=== PATIENT | female | born 1945 | race American Indian/Alaskan Native ===

== ENCOUNTER 2019-01-11 14:30 | Emergency (ER) | payer MEDICAID, MEDICARE ==
--- NOTE | 2019-01-11 14:40 | Emergency Department Report ---
Blank Doc - Documentation Documentation: 73-year-old female that presents with chest pain, URI and SOB. This initial assessment/diagnostic orders/clinical plan/treatment(s) is/are subject to change based on patient's health status, clinical progression and re- assessment by fellow clinical providers in the ED. Further treatment and workup at subsequent clinical providers discretion. Patient/guardians urged not to elope from the ED as their condition may be serious if not clinically assessed and managed. Initial orders include: 1- Patient sent to MAIN ED for further evaluation and treatment 2- labs 3- EKG 4- CXR
--- NOTE | 2019-01-11 15:16 | XRay Report ---
CHEST 2 VIEWS INDICATION: Chest Pain. COMPARISON: 12/26/2018 FINDINGS: Support devices: None. Heart: Within normal limits. Lungs/pleura: Infiltrate throughout the lingula appears unchanged since the previous exam. The right lung is clear. No pleural effusion or pneumothorax is identified. Additional findings: None. IMPRESSION: Persistent lingular opacity which is concerning for pneumonia. No overwhelming change is demonstrated since 12/26/2018. Signer Name: Kenny Wallis Jr, MD Signed: 01/11/2019 3:12 PM Workstation Name: [id number]
[2019-01-11 15:47] LABS: Basophils # (Auto) 0.1 K/mm3 (0.0-0.1); Basophils % (Auto) 1.3 % (0.0-1.8); Eosinophils # (Auto) 0.1 K/mm3 (0.0-0.4); Eosinophils % (Auto) 0.8 % (0.0-4.3); Hematocrit 26.1 % (30.3-42.9); Hemoglobin 8.5 gm/dl (10.1-14.3); Lymphocytes # (Auto) 2.1 K/mm3 (1.2-5.4); Lymphocytes % (Auto) 18.4 % (13.4-35.0); Mean Corpuscular HGB Conc 32 % (30-34); Mean Corpuscular Volume 79 fl (79-97); Monocytes # (Auto) 1.1 K/mm3 (0.0-0.8); Platelet Count 488 K/mm3 (140-440); Red Blood Count 3.32 M/mm3 (3.65-5.03); Red Cell Distribution Width 18.8 % (13.2-15.2)
[2019-01-11 15:54] LABS: Alanine Aminotransferase 7 units/L (7-56); Albumin 3.2 g/dL (3.9-5); BUN/Creatinine Ratio 25; Blood Urea Nitrogen 30 mg/dL (7-17); Hemolysis Index 0
[2019-01-11 15:59] LABS: INR 1.14 (0.87-1.13)
[2019-01-11 16:00] LABS: Partial Thromboplastin Time 32.9 Sec. (24.2-36.6)
[2019-01-11] MEDS ORDERED: LIDOCAINE-MPF (1%) 10 MG/1 ML VIAL 5 ML INFILTRATI ONE (18:34)
[2019-01-11] MEDS ORDERED: cefTRIAXone/NS 1 GM/50 ML 1 GM/50 ML BAG IV ONE (18:53)
--- NOTE | 2019-01-11 19:05 | Emergency Department Report ---
ED General Adult HPI - General Chief complaint: Dyspnea/Respdistress Stated complaint: SOB/COUGH/SIDE/R LEG PAIN Time Seen by Provider: 01/11/19 14:39 Source: patient Mode of arrival: Ambulatory Limitations: No Limitations - History of Present Illness Initial comments: Mrs. Romero is a 73-year-old female that presents with chest pain, URI and SOB. Discharge on 01/03/2019 with CAP discharged on Relafen PO 5 days patient states she took all medication however, persist right lateral chest wall pain with cough and movement patient denies had injury fall or trauma there is no wheezing rhonchi or rales or stridor there is no substernal chest pain no di zziness no headache patient remains ambulatory to baseline per patient patient advised that she does not want to be admitted in hospital Onset/Timin -: week(s) Location: chest (right lateral chest wall ) Radiation: non-radiation Severity scale (0 -10): 5 Quality: sharp Consistency: intermittent Improves with: rest Worsens with: movement, other (inspiration) Associated Symptoms: chest pain (right lateral chest wall pain ), cough, shortness of breath. denies: nausea/vomiting - Related Data Home Medications Medication Instructions Recorded Confirmed Last Taken Glipizide/Metformin HCl 1 each PO DAILY 12/24/18 12/24/18 Unknown [glipiZIDE-Metformin 2.5-500 mg] Lisinopril [Zestril TAB] 10 mg PO QDAY 12/24/18 12/24/18 Unknown Allopurinol 100 mg PO DAILY 12/26/18 12/26/18 Unknown Aspirin 325 mg PO DAILY 12/26/18 12/26/18 Unknown Cilostazol 100 mg PO BID 12/26/18 12/26/18 Unknown Ferrous Sulfate 325 mg PO DAILY 12/26/18 12/26/18 Unknown Furosemide 40 mg PO DAILY 12/26/18 12/26/18 Unknown HCTZ 12.5 mg PO DAILY 12/26/18 12/26/18 Unknown Losartan 100 mg PO DAILY 12/26/18 12/26/18 Unknown Previous Rx's Medication Instructions Recorded Last Taken Type Metoprolol Tartrate 50 mg PO BID #60 12/29/18 Unknown Rx levoFLOXacin [Levaquin TAB] 250 mg PO DAILY #5 tablet 12/29/18 Unknown Rx Acetaminophen [Acetaminophen TAB] 1,000 mg PO Q6HR PRN #30 tablet 01/11/19 Unknown Rx Doxycycline Monohydrate 100 mg PO BID 10 Days #20 tablet 01/11/19 Unknown Rx Ipratropium (Nf) [Atrovent] 2 puff IH Q6HR PRN #1 inha 01/11/19 Unknown Rx Allergies Allergy/AdvReac Type Severity Reaction Status Date / Time ibuprofen Allergy Unknown Verified 12/24/18 16:26 Penicillins Allergy Unknown Verified 12/24/18 16:26 ED Review of Systems ROS: Stated complaint: SOB/COUGH/SIDE/R LEG PAIN Other details as noted in HPI Constitutional: malaise. denies: chills, fever Eyes: denies: eye pain, eye discharge, vision change ENT: congestion. denies: ear pain, throat pain Respiratory: cough, shortness of breath. denies: wheezing Cardiovascular: chest pain (right lateral chest wall pain with inspiration and palpation). denies: palpitations Endocrine: no symptoms reported Gastrointestinal: denies: abdominal pain, nausea, vomiting, diarrhea Genitourinary: denies: urgency, dysuria, discharge Musculoskeletal: denies: back pain, joint swelling, arthralgia Skin: denies: rash, lesions Neurological: denies: headache, weakness, paresthesias, vertigo Psychiatric: denies: anxiety, depression Hematological/Lymphatic: as per HPI ED Past Medical Hx - Past Medical History Previous Medical History?: Yes Hx Hypertension: Yes Hx Diabetes: Yes - Surgical History Past Surgical History?: Yes Hx Coronary Stent: Yes Additional Surgical History: stent placement - Social History Smoking Status: Never Smoker Substance Use Type: None - Medications Home Medications: Home Medications Medication Instructions Recorded Confirmed Last Taken Type Glipizide/Metformin HCl 1 each PO DAILY 12/24/18 12/24/18 Unknown History [glipiZIDE-Metformin 2.5-500 mg] Lisinopril [Zestril TAB] 10 mg PO QDAY 12/24/18 12/24/18 Unknown History Allopurinol 100 mg PO DAILY 12/26/18 12/26/18 Unknown History Aspirin 325 mg PO DAILY 12/26/18 12/26/18 Unknown History Cilostazol 100 mg PO BID 12/26/18 12/26/18 Unknown History Ferrous Sulfate 325 mg PO DAILY 12/26/18 12/26/18 Unknown History Furosemide 40 mg PO DAILY 12/26/18 12/26/18 Unknown History HCTZ 12.5 mg PO DAILY 12/26/18 12/26/18 Unknown History Losartan 100 mg PO DAILY 12/26/18 12/26/18 Unknown History Metoprolol Tartrate 50 mg PO BID #60 12/29/18 Unknown Rx levoFLOXacin [Levaquin TAB] 250 mg PO DAILY #5 tablet 12/29/18 Unknown Rx Acetaminophen [Acetaminophen TAB] 1,000 mg PO Q6HR PRN #30 tablet 01/11/19 Unknown Rx Doxycycline Monohydrate 100 mg PO BID 10 Days #20 tablet 01/11/19 Unknown Rx Ipratropium (Nf) [Atrovent] 2 puff IH Q6HR PRN #1 inha 01/11/19 Unknown Rx ED Physical Exam - General Limitations: No Limitations General appearance: alert, in no apparent distress - Head Head exam: Present: atraumatic, normocephalic - Eye Eye exam: Present: normal appearance, PERRL, EOMI Pupils: Present: normal accommodation - ENT ENT exam: Present: normal orophraynx, mucous membranes moist, TM's normal bilaterally, normal external ear exam - Neck Neck exam: Present: normal inspection, full ROM. Absent: tenderness, lymphadenopathy, thyromegaly - Respiratory Respiratory exam: Present: decreased breath sounds (right lower lobe). Absent: respiratory distress, wheezes, rales, rhonchi, stridor - Cardiovascular Cardiovascular Exam: Present: regular rate, normal rhythm. Absent: systolic murmur, diastolic murmur, rubs, gallop - GI/Abdominal GI/Abdominal exam: Present: soft, normal bowel sounds. Absent: distended, tenderness, bruit, hernia - Rectal Rectal exam: Present: deferred - Extremities Exam Extremities exam: Present: normal inspection, full ROM, normal capillary refill - Back Exam Back exam: Present: normal inspection, full ROM, tenderness, CVA tenderness (R). Absent: CVA tenderness (L), muscle spasm, paraspinal tenderness, vertebral tenderness, rash noted - Neurological Exam Neurological exam: Present: alert, oriented X3, CN II-XII intact, normal gait, reflexes normal. Absent: motor sensory deficit - Psychiatric Psychiatric exam: Present: normal affect, normal mood - Skin Skin exam: Present: warm, dry, intact, normal color. Absent: rash ED Course Vital Signs 01/11/19 01/11/19 01/11/19 14:36 18:30 19:08 Temperature 98.5 F Pulse Rate 89 88 78 Respiratory 20 15 Rate Blood Pressure 178/75 196/80 Blood Pressure 181/83 [Right] O2 Sat by Pulse 95 98 Oximetry 01/11/19 01/11/19 01/11/19 19:15 19:30 19:43 Temperature 97.6 F Pulse Rate 93 H 90 Respiratory 17 15 Rate Blood Pressure 191/72 Blood Pressure 191/72 [Right] O2 Sat by Pulse 92 95 98 Oximetry 01/11/19 01/11/19 19:57 20:00 Temperature Pulse Rate 93 H 82 Respiratory 17 Rate Blood Pressure 191/72 194/76 Blood Pressure [Right] O2 Sat by Pulse Oximetry ED Medical Decision Making - Lab Data Result diagrams: 01/11/19 15:16 01/11/19 15:16 - Radiology Data Radiology results: report reviewed, image reviewed interpreted by me: Right lower lobe opacity no change from previous x-ray from 01/03/2019 - Medical Decision Making Breathing improved . The patient was moved from room to follow ED and return without increased shortness of breath there is no wheezing no stridor patient has been offered but declines admission will DC to home with doxycycline x 10 dfays patient will follow with PCP in 2-3 days patient has all her htn medications in her possession at this time advised to take medications as prescribed patient appears well and nontoxic at this time no labored breathing we DC'd home via POV and family member strict instructions to return to ED if symptoms worsen patient verbalizes agreement and understanding of same DC to home in stable condition at this time Critical care attestation.: If time is entered above; I have spent that time in minutes in the direct care of this critically ill patient, excluding procedure time. ED Disposition Clinical Impression: CAP (community acquired pneumonia) Qualifiers: Laterality: right Lung location: lower lobe of lung Qualified Code(s): J18.1 - Lobar pneumonia, unspecified organism Disposition: DC-01 TO HOME OR SELFCARE Is pt being admited?: No Does the pt Need Aspirin: No Condition: Stable Instructions: Bacterial Pneumonia (ED), Community-acquired Pneumonia (ED) Prescriptions: Acetaminophen [Acetaminophen TAB] 1,000 mg PO Q6HR PRN #30 tablet PRN Reason: pain fever Ipratropium (Nf) [Atrovent] 2 puff IH Q6HR PRN #1 inha PRN Reason: shortness of breath Doxycycline Monohydrate 100 mg PO BID 10 Days #20 tablet Referrals: PRIMARY CARE, [Primary Care Provider] - 3-5 Days Forms: Work/School Release Form(ED) Time of Disposition: 22:37
[2019-01-11] MEDS ORDERED: LOSARTAN 50 MG TAB PO ONE (19:15)
[2019-01-11] MEDS ORDERED: hydroCHLOROthiazide 25 MG TAB PO ONE (19:15)
[2019-01-11 19:22] LABS: Bacteria,Urine 1+ /HPF (Negative); Bilirubin,Urine NEG (Negative); Blood,Urine SM (Negative); Color,Urine Yellow (Yellow); Urobilinogen,Urine < 2.0 mg/dL (<2.0); WBC,Urine < 1.0 /HPF (0.0-6.0)
[2019-01-11] MEDS ORDERED: HYDROcodone/ACETAMINOPHEN 5-325 MG TAB PO ONE (20:58)
[2019-01-11 23:29] VITALS: BP 151/66
== END 2019-01-11 23:00 | disposition home or self-care (01) ==
LOC: ED 14:30
DX: J18.1 Lobar pneumonia, unspecified organism (principal); I10 Essential (primary) hypertension; E11.9 Type 2 diabetes mellitus without complications; Z95.5 Presence of coronary angioplasty implant and graft; Z79.899 Other long term (current) drug therapy; Z88.0 Allergy status to penicillin; Z88.6 Allergy status to analgesic agent
CPT/HCPCS: 36415; 71046; 80053; 81001; 82140; 82803; 84484; 85025; 85610; 85730; 87040; 93005; 93010; 94760; 96365; 99284; J0696

== ENCOUNTER 2019-01-20 18:35 | Emergency (ER) | payer MEDICAID, MEDICARE ==
--- NOTE | 2019-01-20 19:03 | Emergency Department Report ---
Blank Doc - Documentation Documentation: 73-year-old female that presents with right sided rib/flank pain. Was recently diagnosed with PNA. Deneis any injuries or trauma. This initial assessment/diagnostic orders/clinical plan/treatment(s) is/are subject to change based on patient's health status, clinical progression and re- assessment by fellow clinical providers in the ED. Further treatment and workup at subsequent clinical providers discretion. Patient/guardians urged not to elope from the ED as their condition may be serious if not clinically assessed and managed. Initial orders include: 1- Patient sent to [facility] for further evaluation and treatment 2- UA 3- CXR
--- NOTE | 2019-01-20 19:43 | XRay Report ---
RIGHT RIB SERIES 4 VIEWS INDICATION: MAIN: right rib pain Pt. c/o right flank pain that radiates down right leg. . COMPARISON: 01/11/2019. FINDINGS: Diffuse opacity over the left lower lung, greatest inferiorly is again noted. As on the prior, there is silhouetting of the left heart border. This does not appear significantly changed. The right lung is clear without hemopneumothorax. No displaced right-sided rib fractures are seen. IMPRESSION: 1. No acute fracture. 2. Diffuse opacity in the left lung with silhouetting of the left heart border, unchanged. Signer Name: Davon Wagoner MD Signed: 01/20/2019 7:39 PM Workstation Name: [id number]
[2019-01-20 22:54] LABS: Hematocrit 26.9 % (30.3-42.9); Mean Corpuscular HGB Conc 34 % (30-34); Mean Corpuscular Volume 80 fl (79-97); Platelet Count 544 K/mm3 (140-440); Red Blood Count 3.38 M/mm3 (3.65-5.03); Red Cell Distribution Width 18.8 % (13.2-15.2)
[2019-01-20 23:04] LABS: INR 0.95 (0.87-1.13)
[2019-01-20 23:05] LABS: Partial Thromboplastin Time 34.1 Sec. (24.2-36.6)
[2019-01-20 23:07] LABS: Albumin 3.3 g/dL (3.9-5); BUN/Creatinine Ratio 25; Blood Urea Nitrogen 25 mg/dL (7-17); Hemolysis Index 0
[2019-01-20 23:08] LABS: Alanine Aminotransferase < 5 units/L (7-56)
--- NOTE | 2019-01-20 23:15 | Emergency Department Report ---
ED General Adult HPI - General Chief complaint: Abdominal Pain Stated complaint: RT SIDE FLANK PAIN Time Seen by Provider: 01/20/19 18:57 Source: patient Mode of arrival: Ambulatory Limitations: No Limitations - History of Present Illness Initial comments: Pt is a 73-year-old female that presents with right sided rib/flank pain. Was recently diagnosed with PNA on 01/11/2019 and was previously tx with levaquin, and doxycycline. states symptoms got better but have returned. Deneis any injuries , fall ,or trauma.. There is no sob , no cough, no n/v, no diaphoresis. Pain is intermittent, exacerbated by movement, relieved by nothing. Onset/Timin -: week(s) Location: chest, back (flank), right Radiation: non-radiation Severity scale (0 -10): 4 Quality: aching Consistency: intermittent Improves with: none Worsens with: movement Associated Symptoms: chest pain ( right posterior chest wall and flank), other (right flank pain ). denies: diaphoresis, fever/chills, nausea/vomiting, shortness of breath Treatments Prior to Arrival: none - Related Data Home Medications Medication Instructions Recorded Confirmed Last Taken Glipizide/Metformin HCl 1 each PO DAILY 12/24/18 12/24/18 Unknown [glipiZIDE-Metformin 2.5-500 mg] Lisinopril [Zestril TAB] 10 mg PO QDAY 12/24/18 12/24/18 Unknown Allopurinol 100 mg PO DAILY 12/26/18 12/26/18 Unknown Aspirin 325 mg PO DAILY 12/26/18 12/26/18 Unknown Cilostazol 100 mg PO BID 12/26/18 12/26/18 Unknown Ferrous Sulfate 325 mg PO DAILY 12/26/18 12/26/18 Unknown Furosemide 40 mg PO DAILY 12/26/18 12/26/18 Unknown HCTZ 12.5 mg PO DAILY 12/26/18 12/26/18 Unknown Losartan 100 mg PO DAILY 12/26/18 12/26/18 Unknown Previous Rx's Medication Instructions Recorded Last Taken Type Metoprolol Tartrate 50 mg PO BID #60 12/29/18 Unknown Rx levoFLOXacin [Levaquin TAB] 250 mg PO DAILY #5 tablet 12/29/18 Unknown Rx Acetaminophen [Acetaminophen TAB] 1,000 mg PO Q6HR PRN #30 tablet 01/11/19 Unknown Rx Doxycycline Monohydrate 100 mg PO BID 10 Days #20 tablet 01/11/19 Unknown Rx Ipratropium (Nf) [Atrovent] 2 puff IH Q6HR PRN #1 inha 01/11/19 Unknown Rx Acetaminophen/Codeine [Tylenol 1 tab PO Q6H PRN #12 tab 01/21/19 Unknown Rx /Codeine # 3 tab] Erythromycin Base [Erythromycin] 500 mg PO BID 10 Days #20 tablet. 01/21/19 Unknown Rx Allergies Allergy/AdvReac Type Severity Reaction Status Date / Time ibuprofen Allergy Unknown Verified 12/24/18 16:26 Penicillins Allergy Unknown Verified 12/24/18 16:26 ED Review of Systems ROS: Stated complaint: RT SIDE FLANK PAIN Other details as noted in HPI Constitutional: denies: chills, fever Eyes: denies: eye pain, eye discharge, vision change ENT: denies: ear pain, throat pain Respiratory: denies: cough, shortness of breath, wheezing Cardiovascular: chest pain (right posterior lateral chest wall and flank pain ). denies: palpitations Endocrine: no symptoms reported Gastrointestinal: denies: abdominal pain, nausea, vomiting, diarrhea Genitourinary: denies: urgency, dysuria, discharge Musculoskeletal: denies: back pain, joint swelling, arthralgia Skin: denies: rash, lesions Neurological: denies: headache, weakness, paresthesias Psychiatric: denies: anxiety, depression Hematological/Lymphatic: denies: easy bleeding, easy bruising ED Past Medical Hx - Past Medical History Previous Medical History?: Yes Hx Hypertension: Yes Hx Diabetes: Yes - Surgical History Past Surgical History?: Yes Hx Coronary Stent: Yes Additional Surgical History: stent placement - Social History Smoking Status: Former Smoker Substance Use Type: None - Medications Home Medications: Home Medications Medication Instructions Recorded Confirmed Last Taken Type Glipizide/Metformin HCl 1 each PO DAILY 12/24/18 12/24/18 Unknown History [glipiZIDE-Metformin 2.5-500 mg] Lisinopril [Zestril TAB] 10 mg PO QDAY 12/24/18 12/24/18 Unknown History Allopurinol 100 mg PO DAILY 12/26/18 12/26/18 Unknown History Aspirin 325 mg PO DAILY 12/26/18 12/26/18 Unknown History Cilostazol 100 mg PO BID 12/26/18 12/26/18 Unknown History Ferrous Sulfate 325 mg PO DAILY 12/26/18 12/26/18 Unknown History Furosemide 40 mg PO DAILY 12/26/18 12/26/18 Unknown History HCTZ 12.5 mg PO DAILY 12/26/18 12/26/18 Unknown History Losartan 100 mg PO DAILY 12/26/18 12/26/18 Unknown History Metoprolol Tartrate 50 mg PO BID #60 12/29/18 Unknown Rx levoFLOXacin [Levaquin TAB] 250 mg PO DAILY #5 tablet 12/29/18 Unknown Rx Acetaminophen [Acetaminophen TAB] 1,000 mg PO Q6HR PRN #30 tablet 01/11/19 Unknown Rx Doxycycline Monohydrate 100 mg PO BID 10 Days #20 tablet 01/11/19 Unknown Rx Ipratropium (Nf) [Atrovent] 2 puff IH Q6HR PRN #1 inha 01/11/19 Unknown Rx Acetaminophen/Codeine [Tylenol 1 tab PO Q6H PRN #12 tab 01/21/19 Unknown Rx /Codeine # 3 tab] Erythromycin Base [Erythromycin] 500 mg PO BID 10 Days #20 tablet. 01/21/19 Unknown Rx ED Physical Exam - General Limitations: No Limitations General appearance: alert, in no apparent distress - Head Head exam: Present: atraumatic, normocephalic - Eye Eye exam: Present: normal appearance - ENT ENT exam: Present: normal exam, normal orophraynx, mucous membranes moist - Neck Neck exam: Present: normal inspection, full ROM. Absent: tenderness, meningismus, lymphadenopathy, thyromegaly - Respiratory Respiratory exam: Present: normal lung sounds bilaterally, chest wall tenderness (right lateral ). Absent: respiratory distress, wheezes, rales, rhonchi, stridor, accessory muscle use, decreased breath sounds, prolonged expiratory - Cardiovascular Cardiovascular Exam: Present: regular rate, normal rhythm, normal heart sounds. Absent: systolic murmur, diastolic murmur, rubs, gallop - GI/Abdominal GI/Abdominal exam: Present: soft, normal bowel sounds. Absent: distended, tenderness, guarding, rebound, rigid, bruit, hernia - Rectal Rectal exam: Present: deferred - Extremities Exam Extremities exam: Present: normal inspection, full ROM, normal capillary refill. Absent: tenderness, pedal edema - Back Exam Back exam: Present: normal inspection, full ROM, tenderness, CVA tenderness (R). Absent: muscle spasm, paraspinal tenderness, rash noted - Neurological Exam Neurological exam: Present: alert, oriented X3, CN II-XII intact, normal gait - Psychiatric Psychiatric exam: Present: normal affect, normal mood - Skin Skin exam: Present: warm, dry, intact, normal color. Absent: rash ED Course Vital Signs 01/20/19 18:51 Temperature 97.6 F Pulse Rate 72 Respiratory 16 Rate Blood Pressure 195/76 O2 Sat by Pulse 100 Oximetry ED Medical Decision Making - Lab Data Result diagrams: 01/20/19 22:34 01/20/19 22:34 Labs 01/20/19 01/20/19 01/20/19 22:34 22:34 22:34 WBC 11.7 H RBC 3.38 L Hgb 9.0 L Hct 26.9 L MCV 80 MCH 27 L MCHC 34 RDW 18.8 H Plt Count 544 H PT 12.4 INR 0.95 APTT 34.1 D-Dimer 465.47 H Sodium Potassium Chloride Carbon Dioxide Anion Gap BUN Creatinine Estimated GFR BUN/Creatinine Ratio Glucose Calcium Total Bilirubin AST ALT Alkaline Phosphatase Troponin T < 0.010 Total Protein Albumin Albumin/Globulin Ratio Urine Color Urine Turbidity Urine pH Ur Specific [place] Urine Protein Urine Glucose (UA) Urine Ketones Urine Blood Urine Nitrite Urine Bilirubin Urine Urobilinogen Ur Leukocyte Esterase Urine WBC (Auto) Urine RBC (Auto) U Epithel Cells (Auto) Urine Bacteria (Auto) 01/20/19 01/20/19 22:34 Unknown WBC RBC Hgb Hct MCV MCH MCHC RDW Plt Count PT INR APTT D-Dimer Sodium 138 Potassium 4.6 Chloride 103.6 Carbon Dioxide 22 Anion Gap 17 BUN 25 H Creatinine 1.0 Estimated GFR > 60 BUN/Creatinine Ratio 25 Glucose 127 H Calcium 9.0 Total Bilirubin 0.30 AST 13 ALT < 5 L Alkaline Phosphatase 88 Troponin T Total Protein 9.0 H Albumin 3.3 L Albumin/Globulin Ratio 0.6 Urine Color Yellow Urine Turbidity Clear Urine pH 5.0 Ur Specific [place] 1.013 Urine Protein >500 Urine Glucose (UA) Neg Urine Ketones Neg Urine Blood Sm Urine Nitrite Neg Urine Bilirubin Neg Urine Urobilinogen < 2.0 Ur Leukocyte Esterase Neg Urine WBC (Auto) 1.0 Urine RBC (Auto) 8.0 U Epithel Cells (Auto) < 1.0 Urine Bacteria (Auto) 1+ - Radiology Data Radiology results: report reviewed, image reviewed Ordering Physician: OSCAR JONES NP Date of Service: 01/20/19 Procedure(s): XR ribs UNI w PA Chest 3+V RT Accession Number(s): [id number] cc: OSCAR JONES NP Fluoro Time In Minutes: RIGHT RIB SERIES 4 VIEWS INDICATION: MAIN: right rib pain Pt. c/o right flank pain that radiates down right leg. . COMPARISON: 01/11/2019. FINDINGS: Diffuse opacity over the left lower lung, greatest inferiorly is again noted. As on the prior, there is silhouetting of the left heart border. This does not appear significantly changed. The right lung is clear without hemopneumothorax. No displaced right-sided rib fractures are seen. IMPRESSION: 1. No acute fracture. 2. Diffuse opacity in the left lung with silhouetting of the left heart border, unchanged. Signer Name: Davon Wagoner MD Signed: 01/20/2019 7:39 PM Workstation Name: [id number] Transcribed By: LINDA Dictated By: Davon Wagoner MD Electronically Authenticated By: Davon Wagoner MD Signed Date/Time: 01/20/191938 DD/ 36 TD/TT: - Medical Decision Making cxr: noted above, CTA: Negative for PE, Left upper lobe consolidation , indeterminate nodularity in the left lower lobe. Upon further interview with patient and Daughter, this is chronic and known to patient ,pt has been offered and again declines admission. Pt advises will follow up with pulmonolgy out patient given referal to Pulmonology Dr. Gilman , pt will follow up in 1-2 days. , will dc to home rx for Erythromycin , tylenol #3 prn pain, lung sounds remain clear, no wheezes no crackles no sob, no fever or chills. pt dc'd to home via auto and daughter, in stable condition at this time. Pt given strict instructions to return to ed symptoms worsen. Critical care attestation.: If time is entered above; I have spent that time in minutes in the direct care of this critically ill patient, excluding procedure time. ED Disposition Clinical Impression: Lung nodule CAP (community acquired pneumonia) Qualifiers: Laterality: left Lung location: lower lobe of lung Qualified Code(s): J18.1 - Lobar pneumonia, unspecified organism Disposition: DC- TO HOME OR SELFCARE Is pt being admited?: No Does the pt Need Aspirin: No Condition: Stable Instructions: Community-acquired Pneumonia (ED), Bacterial Pneumonia (ED), Pulmonary Nodules (ED) Prescriptions: Erythromycin Base [Erythromycin] 500 mg PO BID 10 Days #20 tablet. Acetaminophen/Codeine [Tylenol /Codeine # 3 tab] 1 tab PO Q6H PRN #12 tab PRN Reason: pain Referrals: PRAVIN CONRAD MD [Staff Physician] - 2-3 Days Time of Disposition: 03:58
[2019-01-20 23:54] LABS: Bacteria,Urine 1+ /HPF (Negative); Bilirubin,Urine NEG (Negative); Blood,Urine SM (Negative); Color,Urine Yellow (Yellow); Urobilinogen,Urine < 2.0 mg/dL (<2.0)
[2019-01-20 23:55] LABS: Protein,Urine >500 mg/dL (Negative)
--- NOTE | 2019-01-21 02:04 | Cat Scan Report ---
CT angio chest INDICATION / CLINICAL INFORMATION: chest pain. TECHNIQUE: Precontrast bolus timing images were obtained followed by postcontrast axial and reformatted images. 3-plane MIP reconstructions were performed at an independent workstation by the technologist. All CT scans at this location are performed using CT dose reduction for ALARA by means of automated exposure control. COMPARISON: None available. FINDINGS: Enhancement of the pulmonary arteries is normal. No evidence of pulmonary embolus. There is dense consolidation of the left upper lobe with an area of nonenhancement centrally measurin g approximately 3 cm. A small gas collection is noted within this hypodense region of the left upper lobe. A small left pleural effusion is identified. A 9 mm nodular opacity is identified in the left lower lobe with an area of central lucency.. Mildly enlarged aorticopulmonary and subcarinal lymph nodes are identified. A small pericardial effusion is present. Limited upper abdominal images show no acute abnormalities. No acute skeletal findings IMPRESSION: 1. No evidence of pulmonary embolus. 2. Left upper lobe consolidation with nonenhancing hypodense area suggesting lung abscess or necrosis . 3. Indeterminate nodularity in the left lower lobe. Signer Name: Agustín Olson MD Signed: 01/21/2019 2:00 AM Workstation Name: [id number]
[2019-01-21] MEDS ORDERED: ROCEPHIN/NS 1 GM/50 ML 1 GM/50 ML BAG IV ONE (03:20)
[2019-01-21] MEDS ORDERED: NORCO 5/325 PO ONE (03:31)
[2019-01-21 04:30] VITALS: BP 190/81
== END 2019-01-21 04:21 | disposition home or self-care (01) ==
LOC: ED 18:35
DX: J18.1 Lobar pneumonia, unspecified organism (principal); R91.1 Solitary pulmonary nodule; I10 Essential (primary) hypertension; E11.9 Type 2 diabetes mellitus without complications; Z79.899 Other long term (current) drug therapy; Z79.82 Long term (current) use of aspirin; Z88.0 Allergy status to penicillin; Z88.5 Allergy status to narcotic agent; Z95.1 Presence of aortocoronary bypass graft; Z87.891 Personal history of nicotine dependence
CPT/HCPCS: 36415; 71101; 71275; 80053; 81001; 84484; 85027; 85379; 85610; 85730; 96365; 99284; J0696; Q9967

== ENCOUNTER 2019-02-08 18:35 | Inpatient (IN) | payer MEDICARE, MEDICAID ==
--- NOTE | 2019-02-08 21:30 | Event Note ---
ED Screening Note Date of service: 02/08/19 Time: 21:25 ED Screening Note: 73 y o f presents with sob with coughing up blood tinged sputum was treated with pnuemonia recently. This initial assessment/diagnostic orders/clinical plan/treatment(s) is/are subject to change based on patients health status, clinical progression and re- assessment by fellow clinical providers in the ED. Further treatment and workup at subsequent clinical providers discretion. Patient/guardian urged not to elope from the ED as their condition may be serious if not clinically assessed and managed. Initial orders include: labs cxr Main side eval
[2019-02-08 21:44] LABS: Basophils # (Auto) 0.2 K/mm3 (0.0-0.1); Eosinophils # (Auto) 0.1 K/mm3 (0.0-0.4); Eosinophils % (Auto) 0.7 % (0.0-4.3); Hematocrit 26.7 % (30.3-42.9); Hemoglobin 8.8 gm/dl (10.1-14.3); Lymphocytes % (Auto) 18.2 % (13.4-35.0); Mean Corpuscular HGB Conc 33 % (30-34); Mean Corpuscular Volume 79 fl (79-97); Monocytes # (Auto) 1.7 K/mm3 (0.0-0.8); Monocytes % (Auto) 10.5 % (0.0-7.3); Platelet Count 563 K/mm3 (140-440); Red Blood Count 3.38 M/mm3 (3.65-5.03); Red Cell Distribution Width 18.5 % (13.2-15.2)
[2019-02-08 21:54] LABS: INR 1.06 (0.87-1.13)
[2019-02-08 21:55] LABS: Partial Thromboplastin Time 32.8 Sec. (24.2-36.6)
[2019-02-08 22:00] LABS: Creatine Kinase MB 1.8 ng/mL (0.0-4.0)
[2019-02-08 22:02] LABS: Calcium 9.7 mg/dL (8.4-10.2)
--- NOTE | 2019-02-08 22:52 | XRay Report ---
CHEST PA AND LATERAL VIEWS INDICATION: Dyspnea. COMPARISON: 01/11/2019 FINDINGS: Support devices: None Heart: Normal and unchanged Lungs/Pleura: Extensive parenchymal density in the left lung, with a 4 cm collection of gas and fluid in the left lung centrally, suggesting intrapulmonary abscess. Right lung is clear. IMPRESSION: 1. Left upper lobe abscess, more well developed than on the CT 2 weeks ago. Signer Name: Claude Gil MD Signed: 02/08/2019 10:47 PM Workstation Name: [id number]
[2019-02-09] MEDS ORDERED: SODIUM CHLORIDE 0.9% 1000 ML 1,000 ML IV ONE (03:21)
--- NOTE | 2019-02-09 04:12 | Cat Scan Report ---
CTA CHEST WITH CONTRAST INDICATION / CLINICAL INFORMATION: SOB, hemoptysis. TECHNIQUE: Axial CT images were obtained through the chest after injection of 60 mL Omnipaque 350 IV contrast. 3 plane MIP and/or 3D reconstructions were produced. All CT scans at this location are performed using CT dose reduction for ALARA by means of automated exposure control. COMPARISON: CT dated 01/21/19 FINDINGS: PULMONARY ARTERIES: No pulmonary emboli. THORACIC AORTA: No significant abnormality. HEART: No significant abnormality. CORONARY ARTERIES: Mild calcification is unchanged. MEDIASTINUM / NANCY: Multiple mildly enlarged mediastinal lymph nodes are unchanged sub which contain calcifications characteristic of old granulomatous disease. PLEURA: Slight improvement in left pleural effusion. No pneumothorax. LUNGS: Left upper lobe consolidation is again noted with slight increase in cavitation. Other lobes a ppear clear. ADDITIONAL FINDINGS: None. UPPER ABDOMEN: No acute findings. SKELETAL STRUCTURES: No significant osseous abnormality. IMPRESSION: 1. No CT evidence for pulmonary embolism. 2. Persistent left upper lobe consolidation with slight progression of cavitation/necrosis. Possibili ty of an obstructing central lesion involving the left upper lobe bronchus should be considered. Signer Name: Shanna Lechuga MD Signed: 02/09/2019 4:08 AM Workstation Name: [id number]
[2019-02-09] MEDS ORDERED: levoFLOXacin 750 MG TAB PO ONE (04:43)
[2019-02-09] MEDS ORDERED: metroNIDAZOLE/NS 500 MG/100 ML 500 MG/100 ML BAG IV ONE (04:44)
--- NOTE | 2019-02-09 04:46 | Emergency Department Report ---
ED Shortness of Breath HPI - General Chief Complaint: Dyspnea/Respdistress Stated Complaint: COUGHING UP BLOOD/SOB/RT LEG PX Time Seen by Provider: 02/09/19 03:00 Source: patient, family Mode of arrival: Wheelchair Limitations: No Limitations - History of Present Illness Initial Comments: 73-year-old female presents to ED with shortness of breath, cough 3 days, and one episode of hemoptysis. Patient was initially admitted for her pneumonia approximately one month ago. Was discharged on Levaquin at that time. Patient has since had 2 more ER visits for cough or shortness of breath following her hospital stay. She was placed on doxycycline also. During her last ER visit on 01/20, patient had a CT that showed a left upper lobe consolidation that could possibly be necrosis or abscess. Patient refused admission at that time, and was advised to follow-up with a flexo press operator. Patient did not follow-up with the flexo press operator, however, she did follow up with her primary care physician, Dr Stalin Burris a couple of weeks ago. Patient's daughter states patient's lung issues were not addressed that time. PCP: Dr Stalin Burris MD Complaint: shortness of breath, cough -: days(s) (3) Severity: moderate Consistency: intermittent Improves With: nothing Worsens With: nothing Associated Symptoms: cough, hemoptysis Treatments Prior to Arrival: none - Related Data Home Oxygen Therapy: No Home Medications Medication Instructions Recorded Confirmed Last Taken Glipizide/Metformin HCl 1 each PO DAILY 12/24/18 12/24/18 Unknown [glipiZIDE-Metformin 2.5-500 mg] Lisinopril [Zestril TAB] 10 mg PO QDAY 12/24/18 12/24/18 Unknown Allopurinol 100 mg PO DAILY 12/26/18 12/26/18 Unknown Aspirin 325 mg PO DAILY 12/26/18 12/26/18 Unknown Cilostazol 100 mg PO BID 12/26/18 12/26/18 Unknown Ferrous Sulfate 325 mg PO DAILY 12/26/18 12/26/18 Unknown Furosemide 40 mg PO DAILY 12/26/18 12/26/18 Unknown HCTZ 12.5 mg PO DAILY 12/26/18 12/26/18 Unknown Losartan 100 mg PO DAILY 12/26/18 12/26/18 Unknown Previous Rx's Medication Instructions Recorded Last Taken Type Metoprolol Tartrate 50 mg PO BID #60 12/29/18 Unknown Rx levoFLOXacin [Levaquin TAB] 250 mg PO DAILY #5 tablet 12/29/18 Unknown Rx Acetaminophen [Acetaminophen TAB] 1,000 mg PO Q6HR PRN #30 tablet 01/11/19 Unknown Rx Doxycycline Monohydrate 100 mg PO BID 10 Days #20 tablet 01/11/19 Unknown Rx Ipratropium (Nf) [Atrovent] 2 puff IH Q6HR PRN #1 inha 01/11/19 Unknown Rx Acetaminophen/Codeine [Tylenol 1 tab PO Q6H PRN #12 tab 01/21/19 Unknown Rx /Codeine # 3 tab] Erythromycin Base [Erythromycin] 500 mg PO BID 10 Days #20 tablet. 01/21/19 Unknown Rx Allergies Allergy/AdvReac Type Severity Reaction Status Date / Time ibuprofen Allergy Unknown Verified 02/08/19 18:37 Penicillins Allergy Unknown Verified 02/08/19 18:37 ED Review of Systems ROS: Stated complaint: COUGHING UP BLOOD/SOB/RT LEG PX Other details as noted in HPI Comment: All other systems reviewed and negative Constitutional: denies: chills, fever Respiratory: cough, shortness of breath, other (reports hemoptysis) Cardiovascular: denies: chest pain ED Past Medical Hx - Past Medical History Previous Medical History?: Yes Hx Hypertension: Yes Hx Diabetes: Yes - Surgical History Past Surgical History?: Yes Hx Coronary Stent: Yes (3 stents) Additional Surgical History: stent placement - Social History Smoking Status: Former Smoker Substance Use Type: None - Medications Home Medications: Home Medications Medication Instructions Recorded Confirmed Last Taken Type Glipizide/Metformin HCl 1 each PO DAILY 12/24/18 12/24/18 Unknown History [glipiZIDE-Metformin 2.5-500 mg] Lisinopril [Zestril TAB] 10 mg PO QDAY 12/24/18 12/24/18 Unknown History Allopurinol 100 mg PO DAILY 12/26/18 12/26/18 Unknown History Aspirin 325 mg PO DAILY 12/26/18 12/26/18 Unknown History Cilostazol 100 mg PO BID 12/26/18 12/26/18 Unknown History Ferrous Sulfate 325 mg PO DAILY 12/26/18 12/26/18 Unknown History Furosemide 40 mg PO DAILY 12/26/18 12/26/18 Unknown History HCTZ 12.5 mg PO DAILY 12/26/18 12/26/18 Unknown History Losartan 100 mg PO DAILY 12/26/18 12/26/18 Unknown History Metoprolol Tartrate 50 mg PO BID #60 12/29/18 Unknown Rx levoFLOXacin [Levaquin TAB] 250 mg PO DAILY #5 tablet 12/29/18 Unknown Rx Acetaminophen [Acetaminophen TAB] 1,000 mg PO Q6HR PRN #30 tablet 01/11/19 Unknown Rx Doxycycline Monohydrate 100 mg PO BID 10 Days #20 tablet 01/11/19 Unknown Rx Ipratropium (Nf) [Atrovent] 2 puff IH Q6HR PRN #1 inha 01/11/19 Unknown Rx Acetaminophen/Codeine [Tylenol 1 tab PO Q6H PRN #12 tab 01/21/19 Unknown Rx /Codeine # 3 tab] Erythromycin Base [Erythromycin] 500 mg PO BID 10 Days #20 tablet. 01/21/19 Unknown Rx ED Physical Exam - General Limitations: No Limitations General appearance: alert, in no apparent distress - Head Head exam: Present: atraumatic, normocephalic - Eye Eye exam: Present: normal appearance, PERRL, EOMI - ENT ENT exam: Present: mucous membranes moist - Neck Neck exam: Present: normal inspection - Respiratory Respiratory exam: Present: normal lung sounds bilaterally. Absent: respiratory distress - Cardiovascular Cardiovascular Exam: Present: regular rate, normal rhythm - GI/Abdominal GI/Abdominal exam: Present: soft. Absent: distended, tenderness - Extremities Exam Extremities exam: Present: normal inspection - Neurological Exam Neurological exam: Present: alert, oriented X3 - Psychiatric Psychiatric exam: Present: normal affect, normal mood - Skin Skin exam: Present: warm, dry, intact, normal color ED Course Vital Signs 02/08/19 02/08/19 02/09/19 21:25 23:59 03:28 Temperature 98.5 F 97.9 F 97.6 F Pulse Rate 85 82 82 Respiratory 18 18 22 Rate Blood Pressure 157/68 153/52 Blood Pressure 187/74 [Left] O2 Sat by Pulse 98 96 97 Oximetry 02/09/19 02/09/19 03:41 04:00 Temperature Pulse Rate 91 H 88 Respiratory 23 18 Rate Blood Pressure 170/61 175/61 Blood Pressure [Left] O2 Sat by Pulse 99 91 Oximetry ED Medical Decision Making - Lab Data Result diagrams: 02/08/19 21:33 02/08/19 21:33 - Radiology Data Radiology results: report reviewed, image reviewed - Medical Decision Making 73-year-old female with cough, shortness of breath, hemoptysis. Patient has lesion on CT that is consistent with necrosis. No PE present. Patient has had several visits for this over the last month. Today, patient does have elevated WBCs at 16, and acute renal failure with BUNs of 51 and creatinine of 1.9. Vital signs are stable and normal. Patient has agreed to admission today. Patient placed on isolation precautions. Spoke with hospitalist and will admit for further management. - Differential Diagnosis pneumonia, malignancy, PE Critical care attestation.: If time is entered above; I have spent that time in minutes in the direct care of this critically ill patient, excluding procedure time. ED Disposition Clinical Impression: Lung abscess, Acute renal failure Disposition: OP ADMIT IP TO THIS HOSP Is pt being admited?: Yes Condition: Stable Referrals: PRIMARY CARE, [Primary Care Provider] - 3-5 Days
[2019-02-09] MEDS ORDERED: VANCOMYCIN/NS 1 GM/250 ML 1 GM/250 ML BAG IV ONE (05:00)
[2019-02-09] MEDS ORDERED: ONDANSETRON 4 MG/2 ML INJ IV PRN (05:41)
--- NOTE | 2019-02-09 06:45 | History and Physical Report ---
History of Present Illness Date of admission: 02/09/19 05:41 History of present illness: 73-year-old oriented a history of hypertension, diabetes, coronary artery disease comes emergency room that she has been coughing of blood over that started 2 days ago and had another episode yesterday so she came into the emergency room for evaluation. Daughter at bedside state that she's been wheezing, short of breath she's lost about 16 pounds since June, recently quit tobacco use. No night sweats recent travel. She has had 30 days of antibiotic treatment for this cough since December. + foul odor from breath Review Of Systems: Constitutional: no weight loss, fever, chills Ears, eyes, nose, mouth and throat: no nasal congestion, no nasal discharge, no sinus pressure, blurry vision, diplopia Neck: No neck pain or rigidity. Cardiovascular: No palpitations, chest pain Respiratory:+shortness of breath, cough Gastrointestinal: No hematochezia, abdominal pain Genitourinary : no dysuria, frequency Musculoskeletal: no muscle ache , joint pain Integumentary: no rash, no pruritis Neurological: no parathesias, focal weakness Endocrine: no cold or heat intolerance, no polyuria or polydipsia Hematologic/Lymphatic: no easy bruising, no easy bleeding, no gland swelling Allergic/Immunologic: no urticaria, no angioedema. PAST MEDICAL HISTORY:hypertension, diabetes, coronary artery disease PAST SURGICAL HISTORY: none FAMILY HISTORY:hypertension, diabetes SOCIAL HISTORYQuit tobacco, no drugs, alcohol Medications and Allergies Allergies Allergy/AdvReac Type Severity Reaction Status Date / Time ibuprofen Allergy Unknown Verified 02/08/19 18:37 Penicillins Allergy Unknown Verified 02/08/19 18:37 Home Medications Medication Instructions Recorded Confirmed Last Taken Type Glipizide/Metformin HCl 1 each PO DAILY 12/24/18 02/09/19 Unknown History [glipiZIDE-Metformin 2.5-500 mg] Allopurinol 100 mg PO DAILY 12/26/18 02/09/19 Unknown History Aspirin 325 mg PO DAILY 12/26/18 02/09/19 Unknown History Cilostazol 100 mg PO BID 12/26/18 02/09/19 Unknown History Ferrous Sulfate 325 mg PO DAILY 12/26/18 02/09/19 Unknown History Furosemide 40 mg PO DAILY 12/26/18 02/09/19 Unknown History HCTZ 12.5 mg PO DAILY 12/26/18 02/09/19 Unknown History Losartan 100 mg PO DAILY 12/26/18 02/09/19 Unknown History Metoprolol Tartrate 50 mg PO BID #60 12/29/18 02/09/19 Unknown Rx Ipratropium (Nf) [Atrovent] 2 puff IH Q6HR PRN #1 inha 01/11/19 02/09/19 Unknown Rx Acetaminophen/Codeine [Tylenol 1 tab PO Q6H PRN #12 tab 01/21/19 02/09/19 Unknown Rx /Codeine # 3 tab] AtorvaSTATin [Lipitor] 40 mg PO QHS 02/09/19 02/09/19 Unknown History raNITIdine HCl [Zantac] 1 tab PO BID 02/09/19 02/09/19 Unknown History Active Meds: Active Medications Acetaminophen (Tylenol) 650 mg PO Q4H PRN PRN Reason: Pain MILD(1-3)/Fever >100.5/BRENNER Ondansetron HCl (Zofran) 4 mg IV Q8H PRN PRN Reason: Nausea And Vomiting Sodium Chloride (Sodium Chloride Flush Syringe 10 Ml) 10 ml IV BID MAYLNI Sodium Chloride (Sodium Chloride Flush Syringe 10 Ml) 10 ml IV PRN PRN PRN Reason: LINE FLUSH Exam - Physical Exam Narrative exam: General Apperance: The patient sitting in bed no acute distress HEENT: Normocephalic, atraumatic. Pupils equally round and reactive to light, extraocular movement intact, and no sclericterus or JVD or thyromegaly or nodule. Neck supple, no carotid bruit, mucous membranes moist, no exudate or erythema Heart: S1-S2, regular is rhythm Lungs:eBreath sound in the upper lobe, nondistended, no organomegaly Extremities: No edema cyanosis clubbing Skin: no rash, nodule, warm and dry Neuro:CN 2 -12 intact, motor/sensory intact, speech is fluent - Constitutional Vitals: Temp Pulse Resp BP Pulse Ox 97.6 F 96 H 23 128/38 98 02/09/19 03:28 02/09/19 06:00 02/09/19 06:00 02/09/19 06:00 02/09/19 06:00 Results - Labs CBC & Chem 7: 02/08/19 21:33 02/08/19 21:33 Labs: Abnormal lab results 02/08/19 02/08/19 02/08/19 Range/Units 21:33 21:33 21:33 WBC 16.5 H (4.5-11.0) K/mm3 RBC 3.38 L (3.65-5.03) M/mm3 Hgb 8.8 L (10.1-14.3) gm/dl Hct 26.7 L (30.3-42.9) % MCH 26 L (28-32) pg RDW 18.5 H (13.2-15.2) % Plt Count 563 H (140-440) K/mm3 [place] % (Auto) 10.5 H (0.0-7.3) % [place] # 1.7 H (0.0-0.8) K/mm3 Baso # 0.2 H (0.0-0.1) K/mm3 Seg Neutrophils # 11.5 H (1.8-7.7) K/mm3 D-Dimer 640.67 H (0-234) ng/mlDDU Sodium 131 L (137-145) mmol/L Chloride 92.4 L (98-107) mmol/L BUN 51 H (7-17) mg/dL Creatinine 1.9 H (0.7-1.2) mg/dL Glucose 193 H (65-100) mg/dL Total Creatine Kinase 27 L (30-135) units/L CK-MB (CK-2) Rel Index 6.6 H (0-4) - Imaging and Cardiology Chest x-ray: report reviewed CT scan - chest: report reviewed Assessment and Plan Assessment Upper lobe cell addition with cavitation, TB, cancer Hypertension Diabetes Coronary artery disease Plan Admit to medicine Check AFB, consult pulmonary for bronch D.e Dr Carey 76 initiate insulin sliding scale E hold further antibiotic for now
[2019-02-09] MEDS ORDERED: DEXTROSE 50% IN WATER (25GM) 50 ML SYRINGE IV PRN (06:53)
--- NOTE | 2019-02-09 10:32 | Event Note ---
Date: 02/09/19 Patient was admitted early this morning with hemoptysis Placed in isolation work-up is in progress Pulmonary evaluation and recommendations noted and appreciated Agree with the current management
[2019-02-09] MEDS: CILOSTAZOL 100 MG TAB PO SCH ×2 (11:28→22:12)
[2019-02-09] MEDS: hydroCHLOROthiazide 12.5 MG CAP PO SCH (11:28)
[2019-02-09] MEDS: FUROSEMIDE 40 MG TAB PO SCH (11:28)
[2019-02-09] MEDS: SODIUM CHLORIDE 0.9% 1000 ML 1,000 ML IV SCH (11:29)
[2019-02-09] MEDS: allopurinoL 100 MG TAB PO SCH (11:29)
[2019-02-09] MEDS: INSULIN LISPRO 100 UNIT/ML SUB-Q SCH ×3 (14:18→22:12)
--- NOTE | 2019-02-09 18:13 | Consultation ---
History of Present Illness Consult date: 02/09/19 Requesting physician: BALDO MEJIA Reason for consult: abnormal CXR/CT, other (Hemoptysis) History of present illness: 73 y/o AAF recently moved here from [place] admitted with dyspnea, chest pain and found to have left upper lobe airspace disease with cavitation. Patient has been admitted once and seen in the ED at least twice before. She started having hemoptysis for the first time 3 days ago. Patient has not been able to produce sputum here. She is a former smoker for over 45 years who quit in December. There is a history of unintentional weight loss from June to December. She denies any fever. NO night sweats. No recent travel out of the country. No new medications and no sick contacts. She also does not drink ETOH but has poor dentition. Denies any recent tooth abscess or caries. Past History Past Medical History: anemia, diabetes, hyperlipidemia, other (Gout) Social history: smoking Medications and Allergies Allergies Allergy/AdvReac Type Severity Reaction Status Date / Time ibuprofen Allergy Unknown Verified 02/08/19 18:37 Penicillins Allergy Unknown Verified 02/08/19 18:37 Home Medications Medication Instructions Recorded Confirmed Last Taken Type Glipizide/Metformin HCl 1 each PO DAILY 12/24/18 02/09/19 Unknown History [glipiZIDE-Metformin 2.5-500 mg] Allopurinol 100 mg PO DAILY 12/26/18 02/09/19 Unknown History Aspirin 325 mg PO DAILY 12/26/18 02/09/19 Unknown History Cilostazol 100 mg PO BID 12/26/18 02/09/19 Unknown History Ferrous Sulfate 325 mg PO DAILY 12/26/18 02/09/19 Unknown History Furosemide 40 mg PO DAILY 12/26/18 02/09/19 Unknown History HCTZ 12.5 mg PO DAILY 12/26/18 02/09/19 Unknown History Losartan 100 mg PO DAILY 12/26/18 02/09/19 Unknown History Metoprolol Tartrate 50 mg PO BID #60 12/29/18 02/09/19 Unknown Rx Ipratropium (Nf) [Atrovent] 2 puff IH Q6HR PRN #1 inha 01/11/19 02/09/19 Unknown Rx Acetaminophen/Codeine [Tylenol 1 tab PO Q6H PRN #12 tab 01/21/19 02/09/19 Unknown Rx /Codeine # 3 tab] AtorvaSTATin [Lipitor] 40 mg PO QHS 02/09/19 02/09/19 Unknown History raNITIdine HCl [Zantac] 1 tab PO BID 02/09/19 02/09/19 Unknown History Active Meds: Active Medications Acetaminophen (Tylenol) 650 mg PO Q4H PRN PRN Reason: Pain MILD(1-3)/Fever >100.5/BRENNER Acetaminophen/Codeine Phosphate (Tylenol #3) 1 tab PO Q6H PRN PRN Reason: Pain, Moderate (4-6) Allopurinol (Zyloprim) 100 mg PO QDAY [facility] Last Admin: 02/09/19 11:29 Dose: Not Given Documented by: Atorvastatin Calcium (Lipitor) 40 mg PO QHS [facility] Cilostazol (Pletal) 100 mg PO BID [facility] Last Admin: 02/09/19 11:28 Dose: Not Given Documented by: Dextrose (D50w (25gm) Syringe) 50 ml IV Q30MIN PRN PRN Reason: Hypoglycemia Furosemide (Lasix) 40 mg PO DAILY [facility] Last Admin: 02/09/19 11:28 Dose: Not Given Documented by: Hydrochlorothiazide (Hctz) 12.5 mg PO QDAY [facility] Last Admin: 02/09/19 11:28 Dose: Not Given Documented by: Sodium Chloride (Nacl 0.9% 1000 Ml) 1,000 mls @ 100 mls/hr IV DIRECT [facility] Last Admin: 02/09/19 11:29 Dose: 100 mls/hr Documented by: Insulin Human Lispro (Humalog) 0 unit SUB-Q [facility]; Protocol Last Admin: 02/09/19 17:07 Dose: Not Given Documented by: Ondansetron HCl (Zofran) 4 mg IV Q8H PRN PRN Reason: Nausea And Vomiting Pneumococcal Polyvalent Vaccine (Pneumovax 23) 0.5 ml IM .ONCE ONE Stop: 02/10/19 12:01 Sodium Chloride (Sodium Chloride Flush Syringe 10 Ml) 10 ml IV BID [facility] Last Admin: 02/09/19 11:27 Dose: 10 ml Documented by: Sodium Chloride (Sodium Chloride Flush Syringe 10 Ml) 10 ml IV PRN PRN PRN Reason: LINE FLUSH Review of Systems All systems: negative Physical Examination Vital signs: Vital Signs Temp Pulse Resp BP Pulse Ox 98.5 F 85 18 157/68 98 02/08/19 21:25 02/08/19 21:25 02/08/19 21:25 02/08/19 21:25 02/08/19 21:25 General appearance: no acute distress, alert Eyes: non-icteric ENT: oropharynx moist, other (poor dentition) Neck: supple, no JVD Effort: normal Ascultation: Right: clear, Left: diminished breath sounds (upper lobe) Percussion: Bilateral: not dull Cardiovascular: regular rate and rhythm Gastrointestinal: normoactive bowel sounds, soft, non-tender Extremities: no edema, pink and warm, pulses normal Results - Laboratory Findings CBC and BMP: 02/08/19 21:33 02/08/19 21:33 PT/INR, D-dimer PT 13.7 Sec. (12.2-14.9) 02/08/19 21:33 INR 1.06 (0.87-1.13) 02/08/19 21:33 D-Dimer 640.67 ng/mlDDU (0-234) H 02/08/19 21:33 Abnormal lab findings: Abnormal Labs 02/08/19 02/08/19 02/08/19 21:33 21:33 21:33 WBC 16.5 H RBC 3.38 L Hgb 8.8 L Hct 26.7 L MCH 26 L RDW 18.5 H Plt Count 563 H [place] % (Auto) 10.5 H [place] # 1.7 H Baso # 0.2 H Seg Neutrophils # 11.5 H D-Dimer 640.67 H Sodium 131 L Chloride 92.4 L BUN 51 H Creatinine 1.9 H Glucose 193 H POC Glucose Total Creatine Kinase 27 L CK-MB (CK-2) Rel Index 6.6 H 02/09/19 02/09/19 11:04 16:18 WBC RBC Hgb Hct MCH RDW Plt Count [place] % (Auto) [place] # Baso # Seg Neutrophils # D-Dimer Sodium Chloride BUN Creatinine Glucose POC Glucose 203 H 120 H Total Creatine Kinase CK-MB (CK-2) Rel Index - Diagnostic Findings Chest x-ray: image reviewed CT scan - chest: image reviewed Assessment and Plan 73 y/o female with abnormal CXR/CT scan concern for infection vs malignancy with renal failure. 1. Agree with holding abx therapy at time 2. Please send serum quantiferon gold 3. Please order sputum culture as well as AFB and Fungal smear/culture if able to produce sputum 4. NPO after Midnight on Friday for Bronch at 0800 on am with wash and likely brush, biopsy if needed 5. Pending results and review of inner airways, abx therapy. 6. May need ID consult. Please culture if spikes temperature.
[2019-02-09] MEDS ORDERED: CILOSTAZOL 100 MG PO SCH (22:00)
[2019-02-10 06:29] LABS: Basophils # (Auto) 0.1 K/mm3 (0.0-0.1); Basophils % (Auto) 0.9 % (0.0-1.8); Eosinophils # (Auto) 0.2 K/mm3 (0.0-0.4); Eosinophils % (Auto) 1.5 % (0.0-4.3); Hematocrit 23.6 % (30.3-42.9); Hemoglobin 7.5 gm/dl (10.1-14.3); Lymphocytes # (Auto) 1.9 K/mm3 (1.2-5.4); Lymphocytes % (Auto) 14.5 % (13.4-35.0); Mean Corpuscular HGB Conc 32 % (30-34); Mean Corpuscular Volume 79 fl (79-97); Monocytes # (Auto) 1.5 K/mm3 (0.0-0.8); Monocytes % (Auto) 11.1 % (0.0-7.3); Platelet Count 454 K/mm3 (140-440); Red Cell Distribution Width 19.5 % (13.2-15.2)
[2019-02-10 06:51] LABS: Calcium 8.5 mg/dL (8.4-10.2)
[2019-02-10] MEDS: INSULIN LISPRO 100 UNIT/ML SUB-Q SCH ×4 (08:26→23:22)
[2019-02-10] MEDS: CILOSTAZOL 100 MG TAB PO SCH ×2 (09:23→22:05)
[2019-02-10] MEDS: hydroCHLOROthiazide 12.5 MG CAP PO SCH (09:23)
[2019-02-10] MEDS: allopurinoL 100 MG TAB PO SCH (09:23)
[2019-02-10] MEDS: FUROSEMIDE 40 MG TAB PO SCH (09:23)
[2019-02-10] MEDS ORDERED: NON-FORMULARY EACH (Allopurinol 100 MG) PO SCH (10:00)
[2019-02-10] MEDS ORDERED: HCTZ 12.5 MG PO SCH (10:00)
[2019-02-10] MEDS ORDERED: FUROSEMIDE 40 MG PO SCH (10:00)
[2019-02-10] MEDS ORDERED: PNEUMOCOCCAL 23 Valent 0.5 ML VIAL IM ONE (12:00)
[2019-02-10] MEDS ORDERED: FLU VACC QUAD 2019-20 (3 YR UP)/PF 60 MCG/0.5 ML SYRINGE IM ONE (12:00)
--- NOTE | 2019-02-10 12:06 | Progress Note ---
Assessment and Plan Assessment and plan: --Right upper lobe cavitary lesion; Rule out tuberculosis, AFB smear and cultures Pulmonary following, Airborne isolation Possible bronchoscopy tomorrow --Type 2 diabetes mellitus; Accu-Chek sliding scale coverage ADA diet, insulin as needed --Hypertension; moderate control Continue current antihypertensives and as needed medications --Dyslipidemia; continue statin --DVT prophylaxis; Lovenox Airborne isolation Monitor closely and adjust management as needed History Interval history: Patient seen and examined medical records reviewed Patient was admitted with shortness of breath and right upper lobe cavitary lesion In airborne respiratory isolation pulmonary ID following Patient feels better no new complaints Vital signs noted Hospitalist Physical - Constitutional Vitals: Temp Pulse Resp BP Pulse Ox 98.9 F 113 H 16 170/69 96 02/10/19 04:52 02/10/19 04:52 02/10/19 04:52 02/10/19 04:52 02/10/19 04:52 General appearance: Present: no acute distress, well-nourished - EENT Eyes: Present: PERRL, EOM intact - Neck Neck: Present: supple, normal ROM - Respiratory Respiratory effort: normal Respiratory: bilateral: diminished, rhonchi, negative: rales, wheezing - Cardiovascular Rhythm: regular Heart Sounds: Present: S1 & S2 - Extremities Extremities: no ischemia, No edema - Abdominal General gastrointestinal: soft, non-tender, non-distended, normal bowel sounds - Integumentary Integumentary: Present: clear, warm - Psychiatric Psychiatric: appropriate mood/affect, cooperative - Neurologic Neurologic: CNII-XII intact, moves all extremities Results - Labs CBC & Chem 7: 02/10/19 05:44 02/10/19 05:44 Labs: Laboratory Last Values WBC 13.2 K/mm3 (4.5-11.0) H 02/10/19 05:44 RBC 3.00 M/mm3 (3.65-5.03) L 02/10/19 05:44 Hgb 7.5 gm/dl (10.1-14.3) L 02/10/19 05:44 Hct 23.6 % (30.3-42.9) L 02/10/19 05:44 MCV 79 fl (79-97) 02/10/19 05:44 MCH 25 pg (28-32) L 02/10/19 05:44 MCHC 32 % (30-34) 02/10/19 05:44 RDW 19.5 % (13.2-15.2) H 02/10/19 05:44 Plt Count 454 K/mm3 (140-440) H 02/10/19 05:44 Lymph % (Auto) 14.5 % (13.4-35.0) 02/10/19 05:44 [place] % (Auto) 11.1 % (0.0-7.3) H 02/10/19 05:44 Eos % (Auto) 1.5 % (0.0-4.3) 02/10/19 05:44 Baso % (Auto) 0.9 % (0.0-1.8) 02/10/19 05:44 Lymph # 1.9 K/mm3 (1.2-5.4) 02/10/19 05:44 [place] # 1.5 K/mm3 (0.0-0.8) H 02/10/19 05:44 Eos # 0.2 K/mm3 (0.0-0.4) 02/10/19 05:44 Baso # 0.1 K/mm3 (0.0-0.1) 02/10/19 05:44 Seg Neutrophils % 72.0 % (40.0-70.0) H 02/10/19 05:44 Seg Neutrophils # 9.5 K/mm3 (1.8-7.7) H 02/10/19 05:44 PT 13.7 Sec. (12.2-14.9) 02/08/19 21:33 INR 1.06 (0.87-1.13) 02/08/19 21:33 APTT 32.8 Sec. (24.2-36.6) 02/08/19 21:33 D-Dimer 640.67 ng/mlDDU (0-234) H 02/08/19 21:33 Sodium 132 mmol/L (137-145) L 02/10/19 05:44 Potassium 4.0 mmol/L (3.6-5.0) 02/10/19 05:44 Chloride 95.3 mmol/L (98-107) L 02/10/19 05:44 Carbon Dioxide 21 mmol/L (22-30) L 02/10/19 05:44 Anion Gap 20 mmol/L 02/10/19 05:44 BUN 49 mg/dL (7-17) H 02/10/19 05:44 Creatinine 2.0 mg/dL (0.7-1.2) H 02/10/19 05:44 Estimated GFR 29 ml/min 02/10/19 05:44 BUN/Creatinine Ratio 25 % 02/10/19 05:44 Glucose 124 mg/dL (65-100) H 02/10/19 05:44 POC Glucose 139 (70-105) H 02/10/19 08:09 Lactic Acid 1.30 mmol/L (0.7-2.0) 02/08/19 21:33 Calcium 8.5 mg/dL (8.4-10.2) 02/10/19 05:44 Total Creatine Kinase 27 units/L (30-135) L 02/08/19 21:33 CK-MB (CK-2) 1.8 ng/mL (0.0-4.0) 02/08/19 21:33 CK-MB (CK-2) Rel Index 6.6 (0-4) H 02/08/19 21:33 Troponin T < 0.010 ng/mL (0.00-0.029) 02/08/19 21:33 Lipase 22 units/L (13-60) 02/08/19 21:33 Active Medications - Current Medications Current Medications: Generic Name Dose Route Start Last Admin Trade Name Freq PRN Reason Stop Dose Admin Acetaminophen 650 mg 02/09/19 05:41 Tylenol PO Q4H PRN Pain MILD(1-3)/Fever >100.5/BRENNER Acetaminophen/Codeine Phosphate 1 tab 02/09/19 10:25 Tylenol #3 PO Q6H PRN Pain, Moderate (4-6) Allopurinol 100 mg 02/09/19 12:00 02/10/19 09:23 Zyloprim PO 100 mg QDAY [facility] Administration Atorvastatin Calcium 40 mg 02/09/19 22:00 02/09/19 22:12 Lipitor PO 40 mg QHS [facility] Administration Cilostazol 100 mg 02/09/19 12:00 02/10/19 09:23 Pletal PO 100 mg BID [facility]LIN Administration Dextrose 50 ml 02/09/19 06:53 D50w (25gm) Syringe IV Q30MIN PRN Hypoglycemia Furosemide 40 mg 02/09/19 12:00 02/10/19 09:23 Lasix PO 40 mg DAILY [facility] Administration Hydrochlorothiazide 12.5 mg 02/09/19 12:00 02/10/19 09:23 Hctz PO 12.5 mg QDAY [facility] Administration Sodium Chloride 1,000 mls @ 100 mls/hr 02/09/19 11:00 02/09/19 11:29 Nacl 0.9% 1000 Ml IV 100 mls/hr DIRECT [facility]LIN Administration Insulin Human Lispro 0 unit 02/09/19 12:54 02/10/19 08:26 Humalog SUB-Q Not Given ACHS [facility] Protocol Ondansetron HCl 4 mg 02/09/19 05:41 Zofran IV Q8H PRN Nausea And Vomiting Sodium Chloride 10 ml 02/09/19 10:00 02/10/19 09:24 Sodium Chloride Flush Syringe 10 Ml IV 10 ml BID [facility] Administration Sodium Chloride 10 ml 02/09/19 05:41 Sodium Chloride Flush Syringe 10 Ml IV PRN PRN LINE FLUSH
[2019-02-10] MEDS: SODIUM CHLORIDE 0.9% 1000 ML 1,000 ML IV SCH (13:20)
--- NOTE | 2019-02-10 14:46 | Consultation ---
History of Present Illness - Reason for Consult Consult date: 02/10/19 - History of Present Illness 73 yo F PMHx DM2, HLD, gout admitted with complaints of chest pain, dyspnea, and hemoptysis. She notes that the hemoptysis began approximately 3 days prior to admission, though the cough has been present for ~1 month. She otherwise denies fevers, sweats, chills. she does report and unintentional weight loss over the past 9 months, and she is a former smoker for 45 years. She has not travelled out of the country. She is from [place] and recently moved here. She does not have any sick contacts. She has never been in the , never been homeless, and never been incarcerated. her cough is currently not productive. Afebrile since admission with a white count of 13. 02/09 blood cultures are NGTD. She is not currently receiving antibiotics. Imaging personally reviewed: CT chest: FARAZ consolidation with increasing cavitation. Review of Systems: Bold if positive, otherwise negative General: fevers, chills, rigors HEENT: visual disturbance, diplopia, eye pain Respiratory: cough, sputum, hemoptysis, shortness of breath Cardiovascular: chest pain, syncope Gastrointestinal: nausea, vomiting, diarrhea, abdominal pain Genitourinary: dysuria, hematuria, flank pain Musculoskeletal: neck pain, back pain, joint pain, edema Neurologic: headaches, seizures Hematologic: easy bruising or bleeding Endocrine: night sweats, acute weight loss Skin: rash, jaundice, redness Psychiatric: suicidal, homicidal ideation Past History Past Medical History: anemia, diabetes, hyperlipidemia, other (Gout) Social history: smoking Family history: diabetes Medications and Allergies Allergies Allergy/AdvReac Type Severity Reaction Status Date / Time ibuprofen Allergy Unknown Verified 02/08/19 18:37 Penicillins Allergy Unknown Verified 02/08/19 18:37 Home Medications Medication Instructions Recorded Confirmed Last Taken Type Glipizide/Metformin HCl 1 each PO DAILY 12/24/18 02/09/19 Unknown History [glipiZIDE-Metformin 2.5-500 mg] Allopurinol 100 mg PO DAILY 12/26/18 02/09/19 Unknown History Aspirin 325 mg PO DAILY 12/26/18 02/09/19 Unknown History Cilostazol 100 mg PO BID 12/26/18 02/09/19 Unknown History Ferrous Sulfate 325 mg PO DAILY 12/26/18 02/09/19 Unknown History Furosemide 40 mg PO DAILY 12/26/18 02/09/19 Unknown History HCTZ 12.5 mg PO DAILY 12/26/18 02/09/19 Unknown History Losartan 100 mg PO DAILY 12/26/18 02/09/19 Unknown History Metoprolol Tartrate 50 mg PO BID #60 12/29/18 02/09/19 Unknown Rx Ipratropium (Nf) [Atrovent] 2 puff IH Q6HR PRN #1 inha 01/11/19 02/09/19 Unknown Rx Acetaminophen/Codeine [Tylenol 1 tab PO Q6H PRN #12 tab 01/21/19 02/09/19 Unknown Rx /Codeine # 3 tab] AtorvaSTATin [Lipitor] 40 mg PO QHS 02/09/19 02/09/19 Unknown History raNITIdine HCl [Zantac] 1 tab PO BID 02/09/19 02/09/19 Unknown History Active Meds: Active Medications Acetaminophen (Tylenol) 650 mg PO Q4H PRN PRN Reason: Pain MILD(1-3)/Fever >100.5/BRENNER Acetaminophen/Codeine Phosphate (Tylenol #3) 1 tab PO Q6H PRN PRN Reason: Pain, Moderate (4-6) Allopurinol (Zyloprim) 100 mg PO QDAY [facility] Last Admin: 02/10/19 09:23 Dose: 100 mg Documented by: Atorvastatin Calcium (Lipitor) 40 mg PO QHS [facility] Last Admin: 02/09/19 22:12 Dose: 40 mg Documented by: Cilostazol (Pletal) 100 mg PO BID [facility] Last Admin: 02/10/19 09:23 Dose: 100 mg Documented by: Dextrose (D50w (25gm) Syringe) 50 ml IV Q30MIN PRN PRN Reason: Hypoglycemia Furosemide (Lasix) 40 mg PO DAILY [facility] Last Admin: 02/10/19 09:23 Dose: 40 mg Documented by: Hydrochlorothiazide (Hctz) 12.5 mg PO QDAY [facility] Last Admin: 02/10/19 09:23 Dose: 12.5 mg Documented by: Sodium Chloride (Nacl 0.9% 1000 Ml) 1,000 mls @ 100 mls/hr IV DIRECT [facility] Last Admin: 02/10/19 13:20 Dose: 100 mls/hr Documented by: Insulin Human Lispro (Humalog) 0 unit SUB-Q ACHS [facility]; Protocol Last Admin: 02/10/19 12:57 Dose: 1 unit Documented by: Ondansetron HCl (Zofran) 4 mg IV Q8H PRN PRN Reason: Nausea And Vomiting Sodium Chloride (Sodium Chloride Flush Syringe 10 Ml) 10 ml IV BID [facility] Last Admin: 02/10/19 09:24 Dose: 10 ml Documented by: Sodium Chloride (Sodium Chloride Flush Syringe 10 Ml) 10 ml IV PRN PRN PRN Reason: LINE FLUSH Physical Examination - Physical Exam Narrative exam: Constitutional: Alert, cooperative. No acute distress Head, Ears, Nose: Normocephalic, atraumatic. External ears, nose normal. poor dentition Eyes: Conjunctivae/corneas clear. No icterus. No ptosis. Neck: Supple, no meningeal signs Oral: dentition fair, no thrush Cardiovascular: S1, S2 normal. Respiratory: Good air entry, clear to auscultation bilaterally GI: Soft, non-tender; bowel sounds normal. No peritoneal signs. Musculoskeletal: No pedal edema, no cyanosis. Skin: No rash or abscess Hem/Lymphatic: No palpable cervical or supraclavicular nodes. No lymphangitis Psych: Mood ok. Affect normal Neurological: Awake, alert, oriented. No gross abnormality - Constitutional Vitals: Vital Signs Temp Pulse Resp BP Pulse Ox 97.5 F L 113 H 18 151/62 96 02/10/19 12:32 02/10/19 12:32 02/10/19 12:32 02/10/19 12:32 02/10/19 12:32 Temperature -Last 24 Hours Temperature 97.5 F Temperature 98.9 F Temperature 98.7 F Temperature 98.6 F Results - Labs CBC & Chem 7: 02/10/19 05:44 02/10/19 05:44 Labs: Abnormal lab results 02/09/19 02/09/19 02/10/19 Range/Units 16:18 21:59 05:44 WBC 13.2 H (4.5-11.0) K/mm3 RBC 3.00 L (3.65-5.03) M/mm3 Hgb 7.5 L (10.1-14.3) gm/dl Hct 23.6 L (30.3-42.9) % MCH 25 L (28-32) pg RDW 19.5 H (13.2-15.2) % Plt Count 454 H (140-440) K/mm3 [place] % (Auto) 11.1 H (0.0-7.3) % [place] # 1.5 H (0.0-0.8) K/mm3 Seg Neutrophils % 72.0 H (40.0-70.0) % Seg Neutrophils # 9.5 H (1.8-7.7) K/mm3 Sodium (137-145) mmol/L Chloride (98-107) mmol/L Carbon Dioxide (22-30) mmol/L BUN (7-17) mg/dL Creatinine (0.7-1.2) mg/dL Glucose (65-100) mg/dL POC Glucose 120 H 138 H (70-105) 02/10/19 02/10/19 02/10/19 Range/Units 05:44 08:09 12:39 WBC (4.5-11.0) K/mm3 RBC (3.65-5.03) M/mm3 Hgb (10.1-14.3) gm/dl Hct (30.3-42.9) % MCH (28-32) pg RDW (13.2-15.2) % Plt Count (140-440) K/mm3 [place] % (Auto) (0.0-7.3) % [place] # (0.0-0.8) K/mm3 Seg Neutrophils % (40.0-70.0) % Seg Neutrophils # (1.8-7.7) K/mm3 Sodium 132 L (137-145) mmol/L Chloride 95.3 L (98-107) mmol/L Carbon Dioxide 21 L (22-30) mmol/L BUN 49 H (7-17) mg/dL Creatinine 2.0 H (0.7-1.2) mg/dL Glucose 124 H (65-100) mg/dL POC Glucose 139 H 197 H (70-105) Assessment and Plan Cultures: 02/09 blood cultures - NGTD A/P: 73 yo F PMHx DM2, HLD admitted with hemoptysis and found to have cavitating lung lesion. 1. cavitating lung lesion - Recommend airborne precautions and ruling out tuberculosis with 3x AFB (induce sputum as necessary). Given her age there is some risk, though she lacks any other major risk factors as detailed in the HPI. She is scheduled for a bronch today with Dr. Carey. one AFB sample can be obtained at that time. In bronch would send for culture (bacterial and fungal), and send for aspergillus antigen. Given the unintentional weight loss and smoking history, cancer is high on the differential. Fungal pneumonia also possible. Other bacterial causes to consider: Nocardia, and Actinomyces given poor dentition. 2. DM2 - encourage tight glycemic control 3. HLD Recs: - airborne precautions - 2x AFB culture from exporated sputum (induce sputum as required) - 1x AFB culture from bronch - fungal culture from bronch - aspergillus antigen from bronch (ordered as misc test) - follow up Quantiferon (does not rule out active disease) - follow up blood cultures - monitor off antibiotics for now given broad differential. Thank you for the consult, we will continue to follow. MD Christiana Arau[facility] ([facility]) M: [phone] O: [phone] F: [phone]
--- NOTE | 2019-02-10 15:14 | Progress Note ---
Subjective Date of service: 02/10/19 Interval history: No acute events. Objective Vital Signs - 12hr 02/10/19 02/10/19 04:52 12:32 Temperature 98.9 F 97.5 F L Pulse Rate 113 H 113 H Respiratory 16 18 Rate Blood Pressure 170/69 151/62 O2 Sat by Pulse 96 96 Oximetry Constitutional: no acute distress, alert Eyes: non-icteric ENT: oropharynx moist, other (poor dentition) Neck: supple, no JVD Effort: normal Ascultation: Right: clear, Left: diminished breath sounds (upper lobe) Percussion: Bilateral: not dull Cardiovascular: regular rate and rhythm Gastrointestinal: normoactive bowel sounds, soft, non-tender Extremities: no edema, pink and warm, pulses normal CBC and BMP: 02/10/19 05:44 02/10/19 05:44 ABG, PT/INR, D-dimer: PT/INR, D-dimer PT 13.7 Sec. (12.2-14.9) 02/08/19 21:33 INR 1.06 (0.87-1.13) 02/08/19 21:33 D-Dimer 640.67 ng/mlDDU (0-234) H 02/08/19 21:33 Abnormal lab findings: Abnormal Labs 02/08/19 02/08/19 02/08/19 21:33 21:33 21:33 WBC 16.5 H RBC 3.38 L Hgb 8.8 L Hct 26.7 L MCH 26 L RDW 18.5 H Plt Count 563 H [place] % (Auto) 10.5 H [place] # 1.7 H Baso # 0.2 H Seg Neutrophils % Seg Neutrophils # 11.5 H D-Dimer 640.67 H Sodium 131 L Chloride 92.4 L Carbon Dioxide BUN 51 H Creatinine 1.9 H Glucose 193 H POC Glucose Total Creatine Kinase 27 L CK-MB (CK-2) Rel Index 6.6 H 02/09/19 02/09/19 02/09/19 11:04 16:18 21:59 WBC RBC Hgb Hct MCH RDW Plt Count [place] % (Auto) [place] # Baso # Seg Neutrophils % Seg Neutrophils # D-Dimer Sodium Chloride Carbon Dioxide BUN Creatinine Glucose POC Glucose 203 H 120 H 138 H Total Creatine Kinase CK-MB (CK-2) Rel Index 02/10/19 02/10/19 02/10/19 05:44 05:44 08:09 WBC 13.2 H RBC 3.00 L Hgb 7.5 L Hct 23.6 L MCH 25 L RDW 19.5 H Plt Count 454 H [place] % (Auto) 11.1 H [place] # 1.5 H Baso # Seg Neutrophils % 72.0 H Seg Neutrophils # 9.5 H D-Dimer Sodium 132 L Chloride 95.3 L Carbon Dioxide 21 L BUN 49 H Creatinine 2.0 H Glucose 124 H POC Glucose 139 H Total Creatine Kinase CK-MB (CK-2) Rel Index 02/10/19 12:39 WBC RBC Hgb Hct MCH RDW Plt Count [place] % (Auto) [place] # Baso # Seg Neutrophils % Seg Neutrophils # D-Dimer Sodium Chloride Carbon Dioxide BUN Creatinine Glucose POC Glucose 197 H Total Creatine Kinase CK-MB (CK-2) Rel Index
[2019-02-10] MEDS: ACETAMINOPHEN 325 MG TAB PO PRN (22:05)
[2019-02-11] MEDS ORDERED: LIDOCAINE (2%) 20 MG/1 ML VIAL 20 ML MDV INFILTRATI ONE (07:18)
[2019-02-11] MEDS ORDERED: LIDOCAINE VISCOUS 2% 15 ML ORAL LIQD ONE (07:18)
[2019-02-11] MEDS ORDERED: WATER FOR IRRIG STERILE 1,000 ML BOTTLE ONE (07:19)
[2019-02-11] MEDS ORDERED: WATER FOR IRRIG STERILE 250 ML BOTTLE IR ONE (07:19)
[2019-02-11] MEDS ORDERED: SODIUM CHLORIDE 0.9% 1000 ML 1,000 ML ONE ×2 (07:20→08:28)
[2019-02-11] MEDS ORDERED: PHENYLEPHRINE 10 MG/1 ML INJ SDV ONE (07:22)
[2019-02-11] MEDS ORDERED: BENZOCAINE 20% TOP SPRAY 0.5 ML UNIT DOSE MM ONE (07:22)
[2019-02-11] MEDS: INSULIN LISPRO 100 UNIT/ML SUB-Q SCH ×4 (07:58→22:15)
--- NOTE | 2019-02-11 08:37 | Anesthesia Consultation ---
Anesthesia Consult and Med Hx Date of service: 02/11/19 - Airway Anesthetic Teeth Evaluation: Poor ROM Head & Neck: Adequate Mental/Hyoid Distance: Adequate Mallampati Class: Class II Intubation Access Assessment: Probably Good - Pulmonary Exam CTA: No (Bilateral wheezes noted on auscultation) - Cardiac Exam Cardiac Exam: RRR - Pre-Operative Health Status ASA Pre-Surgery Classification: ASA3 Proposed Anesthetic Plan: MAC - Pulmonary Hx Smoking: Yes SOB: Yes Home Oxygen Therapy: No - Cardiovascular System Hx Hypertension: Yes Hx Coronary Artery Disease: Yes Hx Cardia Arrhythmia: No - Central Nervous System Hx Neuromuscular Disorder: No Hx Back Pain: Yes - Gastrointestinal Hx Gastroesophageal Reflux Disease: No - Endocrine Hx Renal Disease: No Hx Liver Disease: No Hx Non-Insulin Dependent Diabetes: Yes Hx Thyroid Disease: No - Other Systems Hx Alcohol Use: No Hx Substance Use: No Hx Obesity: No
--- NOTE | 2019-02-11 08:39 | Anesthesia Day of Surgery ---
Anesthesia Day of Surgery - Day of Surgery Patient Examined: Yes Patient H&P Reviewed: Yes Patient is NPO: Yes
--- NOTE | 2019-02-11 10:28 | Progress Note ---
Assessment and Plan Assessment and plan: --Right upper lobe cavitary lesion; Rule out tuberculosis, f/u AFB smear and cultures Pulmonary following, Airborne isolation Had bronchoscopy this morning with cytology,brushings sent Tolerated the procedure well --Type 2 diabetes mellitus; Accu-Chek sliding scale coverage ADA diet, insulin as needed --Hypertension; moderate control Continue current antihypertensives and as needed medications --Dyslipidemia; continue statin --DVT prophylaxis; Lovenox Airborne isolation Monitor closely and adjust management as needed History Interval history: Patient Seen and examined medical records reviewed Patient underwent bronchoscopy today just returned to the room Feels better complains of mild pain Vital signs reviewed Hospitalist Physical - Constitutional Vitals: Temp Pulse Resp BP Pulse Ox 98.7 F 111 H 17 130/62 99 02/11/19 09:09 02/11/19 09:39 02/11/19 09:39 02/11/19 09:39 02/11/19 09:39 General appearance: Present: no acute distress, well-nourished - EENT Eyes: Present: PERRL, EOM intact - Neck Neck: Present: supple, normal ROM - Respiratory Respiratory effort: normal Respiratory: bilateral: diminished, rhonchi, negative: rales, wheezing - Cardiovascular Rhythm: regular Heart Sounds: Present: S1 & S2 - Extremities Extremities: no ischemia, No edema - Abdominal General gastrointestinal: soft, non-tender, non-distended, normal bowel sounds - Integumentary Integumentary: Present: clear, warm - Psychiatric Psychiatric: appropriate mood/affect, cooperative - Neurologic Neurologic: moves all extremities Results - Labs CBC & Chem 7: 02/10/19 05:44 02/10/19 05:44 Labs: Laboratory Last Values WBC 13.2 K/mm3 (4.5-11.0) H 02/10/19 05:44 RBC 3.00 M/mm3 (3.65-5.03) L 02/10/19 05:44 Hgb 7.5 gm/dl (10.1-14.3) L 02/10/19 05:44 Hct 23.6 % (30.3-42.9) L 02/10/19 05:44 MCV 79 fl (79-97) 02/10/19 05:44 MCH 25 pg (28-32) L 02/10/19 05:44 MCHC 32 % (30-34) 02/10/19 05:44 RDW 19.5 % (13.2-15.2) H 02/10/19 05:44 Plt Count 454 K/mm3 (140-440) H 02/10/19 05:44 Lymph % (Auto) 14.5 % (13.4-35.0) 02/10/19 05:44 [place] % (Auto) 11.1 % (0.0-7.3) H 02/10/19 05:44 Eos % (Auto) 1.5 % (0.0-4.3) 02/10/19 05:44 Baso % (Auto) 0.9 % (0.0-1.8) 02/10/19 05:44 Lymph # 1.9 K/mm3 (1.2-5.4) 02/10/19 05:44 [place] # 1.5 K/mm3 (0.0-0.8) H 02/10/19 05:44 Eos # 0.2 K/mm3 (0.0-0.4) 02/10/19 05:44 Baso # 0.1 K/mm3 (0.0-0.1) 02/10/19 05:44 Seg Neutrophils % 72.0 % (40.0-70.0) H 02/10/19 05:44 Seg Neutrophils # 9.5 K/mm3 (1.8-7.7) H 02/10/19 05:44 PT 13.7 Sec. (12.2-14.9) 02/08/19 21:33 INR 1.06 (0.87-1.13) 02/08/19 21:33 APTT 32.8 Sec. (24.2-36.6) 02/08/19 21:33 D-Dimer 640.67 ng/mlDDU (0-234) H 02/08/19 21:33 Sodium 132 mmol/L (137-145) L 02/10/19 05:44 Potassium 4.0 mmol/L (3.6-5.0) 02/10/19 05:44 Chloride 95.3 mmol/L (98-107) L 02/10/19 05:44 Carbon Dioxide 21 mmol/L (22-30) L 02/10/19 05:44 Anion Gap 20 mmol/L 02/10/19 05:44 BUN 49 mg/dL (7-17) H 02/10/19 05:44 Creatinine 2.0 mg/dL (0.7-1.2) H 02/10/19 05:44 Estimated GFR 29 ml/min 02/10/19 05:44 BUN/Creatinine Ratio 25 % 02/10/19 05:44 Glucose 124 mg/dL (65-100) H 02/10/19 05:44 POC Glucose 116 (70-105) H 02/11/19 08:06 Lactic Acid 1.30 mmol/L (0.7-2.0) 02/08/19 21:33 Calcium 8.5 mg/dL (8.4-10.2) 02/10/19 05:44 Total Creatine Kinase 27 units/L (30-135) L 02/08/19 21:33 CK-MB (CK-2) 1.8 ng/mL (0.0-4.0) 02/08/19 21:33 CK-MB (CK-2) Rel Index 6.6 (0-4) H 02/08/19 21:33 Troponin T < 0.010 ng/mL (0.00-0.029) 02/08/19 21:33 Lipase 22 units/L (13-60) 02/08/19 21:33 Active Medications - Current Medications Current Medications: Generic Name Dose Route Start Last Admin Trade Name Freq PRN Reason Stop Dose Admin Acetaminophen 650 mg 02/09/19 05:41 02/10/19 22:05 Tylenol PO 650 mg Q4H PRN Administration Pain MILD(1-3)/Fever >100.5/BRENNER Acetaminophen/Codeine Phosphate 1 tab 02/09/19 10:25 Tylenol #3 PO Q6H PRN Pain, Moderate (4-6) Allopurinol 100 mg 02/09/19 12:00 02/10/19 09:23 Zyloprim PO 100 mg QDAY [facility]LIN Administration Atorvastatin Calcium 40 mg 02/09/19 22:00 02/10/19 22:05 Lipitor PO 40 mg QHS [facility] Administration Cilostazol 100 mg 02/09/19 12:00 02/10/19 22:05 Pletal PO 100 mg BID [facility] Administration Dextrose 50 ml 02/09/19 06:53 D50w (25gm) Syringe IV Q30MIN PRN Hypoglycemia Furosemide 40 mg 02/09/19 12:00 02/10/19 09:23 Lasix PO 40 mg DAILY [facility] Administration Hydrochlorothiazide 12.5 mg 02/09/19 12:00 02/10/19 09:23 Hctz PO 12.5 mg QDAY [facility] Administration Sodium Chloride 1,000 mls @ 100 mls/hr 02/09/19 11:00 02/11/19 03:56 Nacl 0.9% 1000 Ml IV Infused DIRECT [facility] Infusion Insulin Human Lispro 0 unit 02/09/19 12:54 02/11/19 07:58 Humalog SUB-Q Not Given ACHS [facility] Protocol Ondansetron HCl 4 mg 02/09/19 05:41 02/10/19 22:05 Zofran IV 4 mg Q8H PRN Administration Nausea And Vomiting Sodium Chloride 10 ml 02/09/19 10:00 02/10/19 22:07 Sodium Chloride Flush Syringe 10 Ml IV 10 ml BID [facility] Administration Sodium Chloride 10 ml 02/09/19 05:41 Sodium Chloride Flush Syringe 10 Ml IV PRN PRN LINE FLUSH
--- NOTE | 2019-02-11 10:46 | Progress Note ---
Assessment and Plan Cultures: 02/09 blood cultures - NGTD A/P: 73 yo F PMHx DM2, HLD admitted with hemoptysis and found to have cavitating lung lesion. 1. Cavitating lung lesion - Recommend airborne precautions and ruling out tuberculosis with 3x AFB (induce sputum as necessary). Given her age there is some risk, though she lacks any other major risk factors as detailed in the HPI. She is scheduled for a bronch today with Dr. Carey. one AFB sample can be obtained at that time. In bronch would send for culture (bacterial and fungal), and send for aspergillus antigen. Given the unintentional weight loss and smoking history, cancer is high on the differential. Fungal pneumonia also possible. Other bacterial causes to consider: Nocardia, and Actinomyces given poor dentition. Awaiting sputum induction for AFB cultures 2. DM2 - encourage tight glycemic control 3. HLD Recs: - airborne precautions - 2x AFB culture from exporated sputum (induce sputum as required) - 1x AFB culture from bronch - fungal culture from bronch - aspergillus antigen from bronch (ordered as misc test) - follow up Quantiferon (does not rule out active disease) - follow up blood cultures - monitor off antibiotics for now given broad differential. Thank you for the consult, we will continue to follow. Joanie Guan MD [facility] ([facility]) M: [phone] O: [phone] F: [phone] Subjective Date of service: 02/11/19 Interval history: Afebrile, tachycardic. No change in symptoms. Objective - Exam Narrative Exam: Constitutional: Alert, cooperative. No acute distress Head, Ears, Nose: Normocephalic, atraumatic. External ears, nose normal. poor dentition Eyes: Conjunctivae/corneas clear. No icterus. No ptosis. Neck: Supple, no meningeal signs Oral: dentition fair, no thrush Cardiovascular: S1, S2 normal. Respiratory: Good air entry, clear to auscultation bilaterally GI: Soft, non-tender; bowel sounds normal. No peritoneal signs. Musculoskeletal: No pedal edema, no cyanosis. Skin: No rash or abscess Hem/Lymphatic: No palpable cervical or supraclavicular nodes. No lymphangitis Psych: Mood ok. Affect normal Neurological: Awake, alert, oriented. No gross abnormality - Constitutional Vitals: Vital Signs Temp Pulse Resp BP Pulse Ox 98.7 F 111 H 17 130/62 99 02/11/19 09:09 02/11/19 09:39 02/11/19 09:39 02/11/19 09:39 02/11/19 09:39 Temperature -Last 24 Hours Temperature 98.7 F Temperature 99.0 F Temperature 99.0 F Temperature 98.8 F Temperature 99.7 F Temperature 98.6 F Temperature 97.5 F - Labs CBC & Chem 7: 02/10/19 05:44 02/10/19 05:44 Labs: Abnormal lab results 02/10/19 02/10/19 02/10/19 Range/Units 12:39 16:20 21:19 POC Glucose 197 H 158 H 165 H (70-105) 02/11/19 Range/Units 08:06 POC Glucose 116 H (70-105)
[2019-02-11] MEDS: FUROSEMIDE 40 MG TAB PO SCH (10:47)
[2019-02-11] MEDS: hydroCHLOROthiazide 12.5 MG CAP PO SCH (10:47)
[2019-02-11] MEDS: allopurinoL 100 MG TAB PO SCH (10:47)
[2019-02-11] MEDS: CILOSTAZOL 100 MG TAB PO SCH ×2 (10:47→22:59)
--- NOTE | 2019-02-11 14:44 | Procedure Note ---
Date of procedure: 02/11/19 Pre-op diagnosis: Left upper Lobe cavitary Lesion with pneumonia Post-op diagnosis: same Procedure: Flexibile bronchosocpy with wash and brushings. after obtaining informed consent. patient taken to endo and prepped. MAC used. Scoped passed through right nare with ease. Lidocaine used on VC, Trachea, left and right mainstem. Airway inspection of left upper lobe reveals friable abnormal mucosa with almost complete collapse of left upper lobe segment. could not pass scope through small entrance. Bleeding noted. Was able to advance into lower lobes. Washing done of left upper lobe along with brushing. Sent for cytology aFB, fungal and respiratory culture. There was some thick copious secretions that came out from behind the abnormal mucosa. Scope retracted once no bleeding was noted and patient tolerated well with no complications. Anesthesia: MAC Surgeon: SHERYL SEE Estimated blood loss: none Pathology: list (Cytology brushing and washing of left upper lobe) Specimen disposition: to lab Condition: stable Disposition: floor
--- NOTE | 2019-02-11 14:45 | Progress Note ---
Assessment and Plan 73 y/o female with abnormal CXR/CT scan concern for infection vs malignancy with renal failure. 1. Bronch this am Subjective Date of service: 02/11/19 Interval history: No acute events. Ready for bronch Objective Vital Signs - 12hr 02/11/19 02/11/19 02/11/19 05:31 08:32 09:09 Temperature 98.8 F 99.0 F 98.7 F Pulse Rate 111 H 118 H 120 H Respiratory 20 14 22 Rate Blood Pressure 144/61 175/70 Blood Pressure [Left] O2 Sat by Pulse 95 98 100 Oximetry 02/11/19 02/11/19 02/11/19 09:24 09:39 10:45 Temperature Pulse Rate 118 H 111 H 123 H Respiratory 22 17 16 Rate Blood Pressure 155/67 130/62 Blood Pressure 174/75 [Left] O2 Sat by Pulse 100 99 99 Oximetry Constitutional: no acute distress, alert Eyes: non-icteric ENT: oropharynx moist, other (poor dentition) Neck: supple, no JVD Effort: normal Ascultation: Right: clear, Left: diminished breath sounds (upper lobe) Percussion: Bilateral: not dull Cardiovascular: regular rate and rhythm Gastrointestinal: normoactive bowel sounds, soft, non-tender Extremities: no edema, pink and warm, pulses normal CBC and BMP: 02/10/19 05:44 02/10/19 05:44 ABG, PT/INR, D-dimer: PT/INR, D-dimer PT 13.7 Sec. (12.2-14.9) 02/08/19 21:33 INR 1.06 (0.87-1.13) 02/08/19 21:33 D-Dimer 640.67 ng/mlDDU (0-234) H 02/08/19 21:33 Abnormal lab findings: Abnormal Labs 02/08/19 02/08/19 02/08/19 21:33 21:33 21:33 WBC 16.5 H RBC 3.38 L Hgb 8.8 L Hct 26.7 L MCH 26 L RDW 18.5 H Plt Count 563 H [place] % (Auto) 10.5 H [place] # 1.7 H Baso # 0.2 H Seg Neutrophils % Seg Neutrophils # 11.5 H D-Dimer 640.67 H Sodium 131 L Chloride 92.4 L Carbon Dioxide BUN 51 H Creatinine 1.9 H Glucose 193 H POC Glucose Total Creatine Kinase 27 L CK-MB (CK-2) Rel Index 6.6 H 02/09/19 02/09/19 02/09/19 11:04 16:18 21:59 WBC RBC Hgb Hct MCH RDW Plt Count [place] % (Auto) [place] # Baso # Seg Neutrophils % Seg Neutrophils # D-Dimer Sodium Chloride Carbon Dioxide BUN Creatinine Glucose POC Glucose 203 H 120 H 138 H Total Creatine Kinase CK-MB (CK-2) Rel Index 02/10/19 02/10/19 02/10/19 05:44 05:44 08:09 WBC 13.2 H RBC 3.00 L Hgb 7.5 L Hct 23.6 L MCH 25 L RDW 19.5 H Plt Count 454 H [place] % (Auto) 11.1 H [place] # 1.5 H Baso # Seg Neutrophils % 72.0 H Seg Neutrophils # 9.5 H D-Dimer Sodium 132 L Chloride 95.3 L Carbon Dioxide 21 L BUN 49 H Creatinine 2.0 H Glucose 124 H POC Glucose 139 H Total Creatine Kinase CK-MB (CK-2) Rel Index 02/10/19 02/10/19 02/10/19 12:39 16:20 21:19 WBC RBC Hgb Hct MCH RDW Plt Count [place] % (Auto) [place] # Baso # Seg Neutrophils % Seg Neutrophils # D-Dimer Sodium Chloride Carbon Dioxide BUN Creatinine Glucose POC Glucose 197 H 158 H 165 H Total Creatine Kinase CK-MB (CK-2) Rel Index 02/11/19 02/11/19 08:06 13:26 WBC RBC Hgb Hct MCH RDW Plt Count [place] % (Auto) [place] # Baso # Seg Neutrophils % Seg Neutrophils # D-Dimer Sodium Chloride Carbon Dioxide BUN Creatinine Glucose POC Glucose 116 H 174 H Total Creatine Kinase CK-MB (CK-2) Rel Index
[2019-02-11] MEDS: SODIUM CHLORIDE 0.9% 1000 ML 1,000 ML IV SCH (23:12)
[2019-02-12] MEDS: INSULIN LISPRO 100 UNIT/ML SUB-Q SCH ×4 (07:30→21:15)
--- NOTE | 2019-02-12 08:20 | Post Anesthesia Evaluation ---
- Post Anesthesia Evaluation Patient Participated: Yes Airway Patent: Yes Stable Respiratory Function: Yes Nausea/Vomiting: No Temp > 96.8F: Yes Pain Manageable: Yes Adequeate Hydration: Yes Anesthesia Complications: No Block Receding Appropriately: Not Applicable Patient on Ventilator: No
[2019-02-12] MEDS ORDERED: hydrALAZINE 20 MG/1 ML INJ IV PRN (08:39)
[2019-02-12] MEDS: ACETAMINOPHEN W/CODEINE 300-30 MG TAB PO PRN ×2 (08:58→15:05)
[2019-02-12] MEDS: hydrALAZINE 25 MG TAB PO SCH ×3 (09:56→21:11)
[2019-02-12] MEDS: FUROSEMIDE 40 MG TAB PO SCH (09:56)
[2019-02-12] MEDS: allopurinoL 100 MG TAB PO SCH (09:56)
[2019-02-12] MEDS: CILOSTAZOL 100 MG TAB PO SCH ×2 (09:56→21:11)
[2019-02-12] MEDS: hydroCHLOROthiazide 12.5 MG CAP PO SCH (09:56)
[2019-02-12] MEDS: SODIUM CHLORIDE 0.9% 1000 ML 1,000 ML IV SCH (09:57)
--- NOTE | 2019-02-12 11:56 | Progress Note ---
Assessment and Plan Cultures: 02/09 blood cultures - NGTD A/P: 73 yo F PMHx DM2, HLD admitted with hemoptysis and found to have cavitating lung lesion. 1. Cavitating lung lesion - Recommend airborne precautions and ruling out tuberculosis with 3x AFB (induce sputum as necessary). Given her age there is some risk, though she lacks any other major risk factors as detailed in the HPI. She is scheduled for a bronch today with Dr. Carey. one AFB sample can be obtained at that time. In bronch would send for culture (bacterial and fungal), and send for aspergillus antigen. Given the unintentional weight loss and smoking history, cancer is high on the differential. Fungal pneumonia also possible. Other bacterial causes to consider: Nocardia, and Actinomyces given poor dentition. Awaiting sputum induction for AFB cultures 2. DM2 - encourage tight glycemic control 3. HLD Recs: - airborne precautions - 2x AFB culture from exporated sputum (induce sputum as required) - 1x AFB culture from bronch - fungal culture from bronch - aspergillus antigen from bronch (ordered as misc test) - follow up Quantiferon (does not rule out active disease) - follow up blood cultures - monitor off antibiotics for now given broad differential. D/w Dr. Carey. Suspicion from bronch appearance is most likely cancer. Appreciate obtaining labs and cultures. Thank you for the consult, we will continue to follow. Joanie Guan MD [facility] ([facility]) M: [phone] O: [phone] F: [phone] Subjective Date of service: 02/12/19 Interval history: Afebrile, tachycardic. No change in symptoms. Objective - Exam Narrative Exam: Constitutional: Alert, cooperative. No acute distress Head, Ears, Nose: Normocephalic, atraumatic. External ears, nose normal. poor dentition Eyes: Conjunctivae/corneas clear. No icterus. No ptosis. Neck: Supple, no meningeal signs Oral: dentition fair, no thrush Cardiovascular: S1, S2 normal. Respiratory: Good air entry, clear to auscultation bilaterally GI: Soft, non-tender; bowel sounds normal. No peritoneal signs. Musculoskeletal: No pedal edema, no cyanosis. Skin: No rash or abscess Hem/Lymphatic: No palpable cervical or supraclavicular nodes. No lymphangitis Psych: Mood ok. Affect normal Neurological: Awake, alert, oriented. No gross abnormality - Constitutional Vitals: Vital Signs Temp Pulse Resp BP Pulse Ox 99.0 F 114 H 18 159/59 91 02/12/19 05:13 02/12/19 09:56 02/12/19 05:13 02/12/19 09:56 02/12/19 05:13 Temperature -Last 24 Hours Temperature 99.0 F Temperature 98.2 F Temperature 98.2 F - Labs CBC & Chem 7: 02/10/19 05:44 02/10/19 05:44 Labs: Abnormal lab results 02/11/19 02/11/19 02/11/19 Range/Units 13:26 17:23 21:33 POC Glucose 174 H 220 H 140 H (70-105)
--- NOTE | 2019-02-12 12:36 | Progress Note ---
Assessment and Plan A/P FARAZ mass s/p bronch prob post obst pneu.. await bronch data Abx etc per ID will need office f/up w Dr Carey [phone] Subjective Date of service: 02/12/19 Principal diagnosis: lung mass s/p bronch Interval history: bronch yest see notes Path/micro pending still some cough wheeze stable vs mild tachy May be ok for d/c ID following await AFB data etc will f/up in office as well Objective Vital Signs - 12hr 02/12/19 02/12/19 05:13 09:56 Temperature 99.0 F Pulse Rate 114 H 114 H Respiratory 18 Rate Blood Pressure 159/59 159/59 O2 Sat by Pulse 91 Oximetry Constitutional: no acute distress, alert Eyes: non-icteric ENT: oropharynx moist, other (poor dentition) Neck: supple, no JVD Effort: normal Ascultation: Right: clear, Left: diminished breath sounds (upper lobe), Bilat eral: wheezes (mild) Percussion: Bilateral: not dull Cardiovascular: regular rate and rhythm Gastrointestinal: normoactive bowel sounds, soft, non-tender Extremities: no edema, pink and warm, pulses normal Neurologic: normal mental status CBC and BMP: 02/10/19 05:44 02/10/19 05:44 ABG, PT/INR, D-dimer: PT/INR, D-dimer PT 13.7 Sec. (12.2-14.9) 02/08/19 21:33 INR 1.06 (0.87-1.13) 02/08/19 21:33 D-Dimer 640.67 ng/mlDDU (0-234) H 02/08/19 21:33 Abnormal lab findings: Abnormal Labs 02/08/19 02/08/19 02/08/19 21:33 21:33 21:33 WBC 16.5 H RBC 3.38 L Hgb 8.8 L Hct 26.7 L MCH 26 L RDW 18.5 H Plt Count 563 H [place] % (Auto) 10.5 H [place] # 1.7 H Baso # 0.2 H Seg Neutrophils % Seg Neutrophils # 11.5 H D-Dimer 640.67 H Sodium 131 L Chloride 92.4 L Carbon Dioxide BUN 51 H Creatinine 1.9 H Glucose 193 H POC Glucose Total Creatine Kinase 27 L CK-MB (CK-2) Rel Index 6.6 H 02/09/19 02/09/19 02/09/19 11:04 16:18 21:59 WBC RBC Hgb Hct MCH RDW Plt Count [place] % (Auto) [place] # Baso # Seg Neutrophils % Seg Neutrophils # D-Dimer Sodium Chloride Carbon Dioxide BUN Creatinine Glucose POC Glucose 203 H 120 H 138 H Total Creatine Kinase CK-MB (CK-2) Rel Index 02/10/19 02/10/19 02/10/19 05:44 05:44 08:09 WBC 13.2 H RBC 3.00 L Hgb 7.5 L Hct 23.6 L MCH 25 L RDW 19.5 H Plt Count 454 H [place] % (Auto) 11.1 H [place] # 1.5 H Baso # Seg Neutrophils % 72.0 H Seg Neutrophils # 9.5 H D-Dimer Sodium 132 L Chloride 95.3 L Carbon Dioxide 21 L BUN 49 H Creatinine 2.0 H Glucose 124 H POC Glucose 139 H Total Creatine Kinase CK-MB (CK-2) Rel Index 02/10/19 02/10/19 02/10/19 12:39 16:20 21:19 WBC RBC Hgb Hct MCH RDW Plt Count [place] % (Auto) [place] # Baso # Seg Neutrophils % Seg Neutrophils # D-Dimer Sodium Chloride Carbon Dioxide BUN Creatinine Glucose POC Glucose 197 H 158 H 165 H Total Creatine Kinase CK-MB (CK-2) Rel Index 02/11/19 02/11/19 02/11/19 08:06 13:26 17:23 WBC RBC Hgb Hct MCH RDW Plt Count [place] % (Auto) [place] # Baso # Seg Neutrophils % Seg Neutrophils # D-Dimer Sodium Chloride Carbon Dioxide BUN Creatinine Glucose POC Glucose 116 H 174 H 220 H Total Creatine Kinase CK-MB (CK-2) Rel Index 02/11/19 21:33 WBC RBC Hgb Hct MCH RDW Plt Count [place] % (Auto) [place] # Baso # Seg Neutrophils % Seg Neutrophils # D-Dimer Sodium Chloride Carbon Dioxide BUN Creatinine Glucose POC Glucose 140 H Total Creatine Kinase CK-MB (CK-2) Rel Index Chest x-ray: report reviewed, image reviewed CT scan - chest: report reviewed, image reviewed
--- NOTE | 2019-02-12 12:56 | Progress Note ---
Assessment and Plan Assessment and plan: --Left cavitary lesion; s/p bronchoscopy, cytology,brushings sent Negative for AFB stain Negative for fungi by stain Rule out tuberculosis, f/u AFB smear and cultures Pulmonary following, Airborne isolation --Type 2 diabetes mellitus; Accu-Chek sliding scale coverage ADA diet, insulin as needed --Acute kidney injury; vasomotor nephropathy Gentle hydration, monitor renal function, avoid nephrotoxins --SIRS without organ dysfunction --Mild hyponatremia; IV normal saline, closely monitor electrolytes --Hypertension; moderate control Continue current antihypertensives and as needed medications --Dyslipidemia; continue statin --DVT prophylaxis; Lovenox Airborne isolation Monitor closely and adjust management as needed History Interval history: Patient feels better,no new complaints Patient underwent bronchoscopy yesterday, Vital signs reviewed Hospitalist Physical - Constitutional Vitals: Temp Pulse Resp BP Pulse Ox 97.7 F 112 H 20 116/61 95 02/12/19 11:33 02/12/19 11:33 02/12/19 11:33 02/12/19 11:33 02/12/19 11:33 General appearance: Present: no acute distress, well-nourished - EENT Eyes: Present: PERRL, EOM intact - Neck Neck: Present: supple, normal ROM - Respiratory Respiratory effort: normal Respiratory: left: rhonchi, bilateral: diminished, negative: rales, wheezing - Cardiovascular Rhythm: regular Heart Sounds: Present: S1 & S2 - Extremities Extremities: no ischemia, No edema - Abdominal General gastrointestinal: soft, non-tender, non-distended, normal bowel sounds - Integumentary Integumentary: Present: clear, warm - Psychiatric Psychiatric: appropriate mood/affect, cooperative - Neurologic Neurologic: moves all extremities Results - Labs CBC & Chem 7: 02/10/19 05:44 02/10/19 05:44 Labs: Laboratory Last Values WBC 13.2 K/mm3 (4.5-11.0) H 02/10/19 05:44 RBC 3.00 M/mm3 (3.65-5.03) L 02/10/19 05:44 Hgb 7.5 gm/dl (10.1-14.3) L 02/10/19 05:44 Hct 23.6 % (30.3-42.9) L 02/10/19 05:44 MCV 79 fl (79-97) 02/10/19 05:44 MCH 25 pg (28-32) L 02/10/19 05:44 MCHC 32 % (30-34) 02/10/19 05:44 RDW 19.5 % (13.2-15.2) H 02/10/19 05:44 Plt Count 454 K/mm3 (140-440) H 02/10/19 05:44 Lymph % (Auto) 14.5 % (13.4-35.0) 02/10/19 05:44 [place] % (Auto) 11.1 % (0.0-7.3) H 02/10/19 05:44 Eos % (Auto) 1.5 % (0.0-4.3) 02/10/19 05:44 Baso % (Auto) 0.9 % (0.0-1.8) 02/10/19 05:44 Lymph # 1.9 K/mm3 (1.2-5.4) 02/10/19 05:44 [place] # 1.5 K/mm3 (0.0-0.8) H 02/10/19 05:44 Eos # 0.2 K/mm3 (0.0-0.4) 02/10/19 05:44 Baso # 0.1 K/mm3 (0.0-0.1) 02/10/19 05:44 Seg Neutrophils % 72.0 % (40.0-70.0) H 02/10/19 05:44 Seg Neutrophils # 9.5 K/mm3 (1.8-7.7) H 02/10/19 05:44 PT 13.7 Sec. (12.2-14.9) 02/08/19 21:33 INR 1.06 (0.87-1.13) 02/08/19 21:33 APTT 32.8 Sec. (24.2-36.6) 02/08/19 21:33 D-Dimer 640.67 ng/mlDDU (0-234) H 02/08/19 21:33 Sodium 132 mmol/L (137-145) L 02/10/19 05:44 Potassium 4.0 mmol/L (3.6-5.0) 02/10/19 05:44 Chloride 95.3 mmol/L (98-107) L 02/10/19 05:44 Carbon Dioxide 21 mmol/L (22-30) L 02/10/19 05:44 Anion Gap 20 mmol/L 02/10/19 05:44 BUN 49 mg/dL (7-17) H 02/10/19 05:44 Creatinine 2.0 mg/dL (0.7-1.2) H 02/10/19 05:44 Estimated GFR 29 ml/min 02/10/19 05:44 BUN/Creatinine Ratio 25 % 02/10/19 05:44 Glucose 124 mg/dL (65-100) H 02/10/19 05:44 POC Glucose 140 (70-105) H 02/11/19 21:33 Lactic Acid 1.30 mmol/L (0.7-2.0) 02/08/19 21:33 Calcium 8.5 mg/dL (8.4-10.2) 02/10/19 05:44 Total Creatine Kinase 27 units/L (30-135) L 02/08/19 21:33 CK-MB (CK-2) 1.8 ng/mL (0.0-4.0) 02/08/19 21:33 CK-MB (CK-2) Rel Index 6.6 (0-4) H 02/08/19 21:33 Troponin T < 0.010 ng/mL (0.00-0.029) 02/08/19 21:33 Lipase 22 units/L (13-60) 02/08/19 21:33 AFB Identification 02/11/19 Unknown Fungal Id Prelim 02/11/19 Unknown Thin Pap Review [employer] 02/11/19 Unknown Active Medications - Current Medications Current Medications: Generic Name Dose Route Start Last Admin Trade Name Freq PRN Reason Stop Dose Admin Acetaminophen 650 mg 02/09/19 05:41 02/10/19 22:05 Tylenol PO 650 mg Q4H PRN Administration Pain MILD(1-3)/Fever >100.5/BRENNER Acetaminophen/Codeine Phosphate 1 tab 02/09/19 10:25 02/12/19 08:58 Tylenol #3 PO 1 tab Q6H PRN Administration Pain, Moderate (4-6) Allopurinol 100 mg 02/09/19 12:00 02/12/19 09:56 Zyloprim PO 100 mg QDAY MAYLIN Administration Atorvastatin Calcium 40 mg 02/09/19 22:00 02/11/19 22:59 Lipitor PO 40 mg QHS MAYLIN Administration Cilostazol 100 mg 02/09/19 12:00 02/12/19 09:56 Pletal PO 100 mg BID MAYLIN Administration Dextrose 50 ml 02/09/19 06:53 D50w (25gm) Syringe IV Q30MIN PRN Hypoglycemia Furosemide 40 mg 02/09/19 12:00 02/12/19 09:56 Lasix PO 40 mg DAILY MAYLIN Administration Hydralazine HCl 25 mg 02/12/19 08:45 02/12/19 09:56 Apresoline PO 25 mg Q8HR MAYLIN Administration Hydralazine HCl 10 mg 02/12/19 08:39 Apresoline IV Q4HR PRN Hypertension Hydrochlorothiazide 12.5 mg 02/09/19 12:00 02/12/19 09:56 Hctz PO 12.5 mg QDAY MAYLIN Administration Sodium Chloride 1,000 mls @ 100 mls/hr 02/09/19 11:00 02/12/19 09:57 Nacl 0.9% 1000 Ml IV 100 mls/hr DIRECT MAYLIN Administration Insulin Human Lispro 0 unit 02/09/19 12:54 02/12/19 07:30 Humalog SUB-Q Not Given ACHS MAYLIN Protocol Ondansetron HCl 4 mg 02/09/19 05:41 02/10/19 22:05 Zofran IV 4 mg Q8H PRN Administration Nausea And Vomiting Sodium Chloride 10 ml 02/09/19 10:00 02/12/19 09:57 Sodium Chloride Flush Syringe 10 Ml IV 10 ml BID MAYLIN Administration Sodium Chloride 10 ml 02/09/19 05:41 Sodium Chloride Flush Syringe 10 Ml IV PRN PRN LINE FLUSH
[2019-02-12] MEDS: PANTOPRAZOLE 40 MG TAB PO SCH (17:32)
[2019-02-13] MEDS: SODIUM CHLORIDE 0.9% 1000 ML 1,000 ML IV SCH ×3 (00:57→23:23)
[2019-02-13] MEDS: hydrALAZINE 25 MG TAB PO SCH ×3 (05:06→22:00)
[2019-02-13 05:46] LABS: Basophils # (Auto) 0.1 K/mm3 (0.0-0.1); Basophils % (Auto) 0.7 % (0.0-1.8); Eosinophils # (Auto) 0.2 K/mm3 (0.0-0.4); Eosinophils % (Auto) 1.7 % (0.0-4.3); Hemoglobin 7.4 gm/dl (10.1-14.3); Lymphocytes % (Auto) 13.7 % (13.4-35.0); Mean Corpuscular HGB Conc 32 % (30-34); Mean Corpuscular Volume 78 fl (79-97); Monocytes # (Auto) 1.7 K/mm3 (0.0-0.8); Monocytes % (Auto) 11.4 % (0.0-7.3); Platelet Count 440 K/mm3 (140-440); Red Blood Count 2.95 M/mm3 (3.65-5.03); Red Cell Distribution Width 18.7 % (13.2-15.2)
[2019-02-13 06:05] LABS: Calcium 8.1 mg/dL (8.4-10.2)
[2019-02-13] MEDS: ACETAMINOPHEN W/CODEINE 300-30 MG TAB PO PRN (06:46)
[2019-02-13] MEDS: INSULIN LISPRO 100 UNIT/ML SUB-Q SCH ×4 (07:30→22:00)
--- NOTE | 2019-02-13 08:26 | Progress Note ---
Assessment and Plan Assessment and plan: --Severe hyponatremia; gentle hydration with normal saline Closely monitor electrolytes, nephrology consult. --Acute kidney injury; worsening renal function, vasomotor nephropathy Gentle hydration, monitor renal function, avoid nephrotoxins Nephrology consult.. Discussed with , renal ultrasound --Left cavitary lesion; possible lung mass s/p bronchoscopy, f/u cytology,brushings sent Negative for AFB stain, Negative for fungi by stain Rule out tuberculosis, f/u AFB smear and cultures Pulmonary following, Airborne isolation --SIRS with organ dysfunction --Type 2 diabetes mellitus; Accu-Chek sliding scale coverage ADA diet, insulin as needed --Hypertension; moderate control Continue current antihypertensives and as needed medications --Dyslipidemia; continue statin --DVT prophylaxis; Lovenox Airborne isolation Monitor closely and adjust management as needed History Interval history: Patient seen and examined medical records reviewed The patient complains of generalized weakness Mild shortness of breath and cough No new episodes of hemoptysis Status post bronchoscopy 2 days ago Vital signs reviewed Hospitalist Physical - Constitutional Vitals: Temp Pulse Resp BP Pulse Ox 98.8 F 125 H 18 169/64 94 02/13/19 07:53 02/13/19 05:06 02/13/19 06:46 02/13/19 05:06 02/13/19 07:53 General appearance: Present: no acute distress, well-nourished - EENT Eyes: Present: PERRL, EOM intact - Neck Neck: Present: supple, normal ROM - Respiratory Respiratory effort: normal Respiratory: left: rhonchi, bilateral: diminished, rales, negative: wheezing - Cardiovascular Rhythm: regular Heart Sounds: Present: S1 & S2 - Extremities Extremities: no ischemia, No edema - Abdominal General gastrointestinal: soft, non-tender, non-distended, normal bowel sounds - Integumentary Integumentary: Present: clear, warm - Psychiatric Psychiatric: appropriate mood/affect, cooperative - Neurologic Neurologic: moves all extremities Results - Labs CBC & Chem 7: 02/13/19 05:08 02/13/19 16:06 Labs: Laboratory Last Values WBC 14.5 K/mm3 (4.5-11.0) H 02/13/19 05:08 RBC 2.95 M/mm3 (3.65-5.03) L 02/13/19 05:08 Hgb 7.4 gm/dl (10.1-14.3) L 02/13/19 05:08 Hct 23.0 % (30.3-42.9) L 02/13/19 05:08 MCV 78 fl (79-97) L 02/13/19 05:08 MCH 25 pg (28-32) L 02/13/19 05:08 MCHC 32 % (30-34) 02/13/19 05:08 RDW 18.7 % (13.2-15.2) H 02/13/19 05:08 Plt Count 440 K/mm3 (140-440) 02/13/19 05:08 Lymph % (Auto) 13.7 % (13.4-35.0) 02/13/19 05:08 [place] % (Auto) 11.4 % (0.0-7.3) H 02/13/19 05:08 Eos % (Auto) 1.7 % (0.0-4.3) 02/13/19 05:08 Baso % (Auto) 0.7 % (0.0-1.8) 02/13/19 05:08 Lymph # 2.0 K/mm3 (1.2-5.4) 02/13/19 05:08 [place]ye # 1.7 K/mm3 (0.0-0.8) H 02/13/19 05:08 Eos # 0.2 K/mm3 (0.0-0.4) 02/13/19 05:08 Baso # 0.1 K/mm3 (0.0-0.1) 02/13/19 05:08 Seg Neutrophils % 72.5 % (40.0-70.0) H 02/13/19 05:08 Seg Neutrophils # 10.5 K/mm3 (1.8-7.7) H 02/13/19 05:08 PT 13.7 Sec. (12.2-14.9) 02/08/19 21:33 INR 1.06 (0.87-1.13) 02/08/19 21:33 APTT 32.8 Sec. (24.2-36.6) 02/08/19 21:33 D-Dimer 640.67 ng/mlDDU (0-234) H 02/08/19 21:33 Sodium 127 mmol/L (137-145) L 02/13/19 05:08 Potassium 4.1 mmol/L (3.6-5.0) 02/13/19 05:08 Chloride 97.1 mmol/L (98-107) L 02/13/19 05:08 Carbon Dioxide 17 mmol/L (22-30) L 02/13/19 05:08 Anion Gap 17 mmol/L 02/13/19 05:08 BUN 48 mg/dL (7-17) H 02/13/19 05:08 Creatinine 2.8 mg/dL (0.7-1.2) H 02/13/19 05:08 Estimated GFR 20 ml/min 02/13/19 05:08 BUN/Creatinine Ratio 17 % 02/13/19 05:08 Glucose 117 mg/dL (65-100) H 02/13/19 05:08 POC Glucose 122 (70-105) H 02/13/19 07:39 Lactic Acid 1.30 mmol/L (0.7-2.0) 02/08/19 21:33 Calcium 8.1 mg/dL (8.4-10.2) L 02/13/19 05:08 Total Creatine Kinase 27 units/L (30-135) L 02/08/19 21:33 CK-MB (CK-2) 1.8 ng/mL (0.0-4.0) 02/08/19 21:33 CK-MB (CK-2) Rel Index 6.6 (0-4) H 02/08/19 21:33 Troponin T < 0.010 ng/mL (0.00-0.029) 02/08/19 21:33 Lipase 22 units/L (13-60) 02/08/19 21:33 AFB Identification 02/11/19 Unknown Fungal Id Prelim 02/11/19 Unknown Thin Pap Review [employer] 02/11/19 Unknown Active Medications - Current Medications Current Medications: Generic Name Dose Route Start Last Admin Trade Name Freq PRN Reason Stop Dose Admin Acetaminophen 650 mg 02/09/19 05:41 02/10/19 22:05 Tylenol PO 650 mg Q4H PRN Administration Pain MILD(1-3)/Fever >100.5/BRENNER Acetaminophen/Codeine Phosphate 1 tab 02/09/19 10:25 02/13/19 06:46 Tylenol #3 PO 1 tab Q6H PRN Administration Pain, Moderate (4-6) Allopurinol 100 mg 02/09/19 12:00 02/12/19 09:56 Zyloprim PO 100 mg QDAY MAYLIN Administration Atorvastatin Calcium 40 mg 02/09/19 22:00 02/12/19 21:11 Lipitor PO 40 mg QHS MAYLIN Administration Cilostazol 100 mg 02/09/19 12:00 02/12/19 21:11 Pletal PO 100 mg BID MAYLIN Administration Dextrose 50 ml 02/09/19 06:53 D50w (25gm) Syringe IV Q30MIN PRN Hypoglycemia Furosemide 40 mg 02/09/19 12:00 02/12/19 09:56 Lasix PO 40 mg DAILY MAYLIN Administration Hydralazine HCl 25 mg 02/12/19 08:45 02/13/19 05:06 Apresoline PO 25 mg Q8HR MAYLIN Administration Hydralazine HCl 10 mg 02/12/19 08:39 Apresoline IV Q4HR PRN Hypertension Hydrochlorothiazide 12.5 mg 02/09/19 12:00 02/12/19 09:56 Hctz PO 12.5 mg QDAY MAYLIN Administration Sodium Chloride 1,000 mls @ 100 mls/hr 02/09/19 11:00 02/13/19 00:57 Nacl 0.9% 1000 Ml IV 100 mls/hr DIRECT MAYLIN Administration Insulin Human Lispro 0 unit 02/09/19 12:54 02/13/19 07:30 Humalog SUB-Q Not Given ACHS [facility] Protocol Ondansetron HCl 4 mg 02/09/19 05:41 02/10/19 22:05 Zofran IV 4 mg Q8H PRN Administration Nausea And Vomiting Pantoprazole Sodium 40 mg 02/12/19 17:00 02/12/19 17:32 Protonix PO 40 mg QDAY MAYLIN Administration Sodium Chloride 10 ml 02/09/19 10:00 02/12/19 21:10 Sodium Chloride Flush Syringe 10 Ml IV 10 ml BID MAYLIN Administration Sodium Chloride 10 ml 02/09/19 05:41 Sodium Chloride Flush Syringe 10 Ml IV PRN PRN LINE FLUSH
--- NOTE | 2019-02-13 10:00 | Progress Note ---
Subjective Date of service: 02/13/19 Principal diagnosis: lung mass s/p bronch Objective - Vital Signs Vital signs: Vital Signs - 12hr 02/12/19 02/13/19 02/13/19 23:22 05:06 06:46 Temperature 98.6 F Pulse Rate 116 H 125 H Respiratory 22 18 Rate Blood Pressure 195/78 169/64 O2 Sat by Pulse 98 Oximetry 02/13/19 07:53 Temperature 98.8 F Pulse Rate Respiratory Rate Blood Pressure O2 Sat by Pulse 94 Oximetry - Lab 02/13/19 05:08 02/13/19 05:08 Most recent lab results Calcium 8.1 mg/dL (8.4-10.2) L 02/13/19 05:08 Medications & Allergies - Medications Allergies/Adverse Reactions: Allergies ibuprofen Allergy (Verified 02/08/19 18:37) Unknown Penicillins Allergy (Verified 02/08/19 18:37) Unknown Home Medications: Home Medications Medication Instructions Recorded Confirmed Last Taken Type Glipizide/Metformin HCl 1 each PO DAILY 12/24/18 02/09/19 Unknown History [glipiZIDE-Metformin 2.5-500 mg] Allopurinol 100 mg PO DAILY 12/26/18 02/09/19 Unknown History Aspirin 325 mg PO DAILY 12/26/18 02/09/19 Unknown History Cilostazol 100 mg PO BID 12/26/18 02/09/19 Unknown History Ferrous Sulfate 325 mg PO DAILY 12/26/18 02/09/19 Unknown History Furosemide 40 mg PO DAILY 12/26/18 02/09/19 Unknown History HCTZ 12.5 mg PO DAILY 12/26/18 02/09/19 Unknown History Losartan 100 mg PO DAILY 12/26/18 02/09/19 Unknown History Metoprolol Tartrate 50 mg PO BID #60 12/29/18 02/09/19 Unknown Rx Ipratropium (Nf) [Atrovent] 2 puff IH Q6HR PRN #1 inha 01/11/19 02/09/19 Unknown Rx Acetaminophen/Codeine [Tylenol 1 tab PO Q6H PRN #12 tab 01/21/19 02/09/19 Unknown Rx /Codeine # 3 tab] AtorvaSTATin [Lipitor] 40 mg PO QHS 02/09/19 02/09/19 Unknown History raNITIdine HCl [Zantac] 1 tab PO BID 02/09/19 02/09/19 Unknown History Active Medications: Generic Name Dose Route Start Last Admin Trade Name Freq PRN Reason Stop Dose Admin Acetaminophen 650 mg 02/09/19 05:41 02/10/19 22:05 Tylenol PO 650 mg Q4H PRN Administration Pain MILD(1-3)/Fever >100.5/BRENNER Acetaminophen/Codeine Phosphate 1 tab 02/09/19 10:25 02/13/19 06:46 Tylenol #3 PO 1 tab Q6H PRN Administration Pain, Moderate (4-6) Allopurinol 100 mg 02/09/19 12:00 02/12/19 09:56 Zyloprim PO 100 mg QDAY MAYLIN Administration Atorvastatin Calcium 40 mg 02/09/19 22:00 02/12/19 21:11 Lipitor PO 40 mg QHS MAYLIN Administration Cilostazol 100 mg 02/09/19 12:00 02/12/19 21:11 Pletal PO 100 mg BID MAYLIN Administration Dextrose 50 ml 02/09/19 06:53 D50w (25gm) Syringe IV Q30MIN PRN Hypoglycemia Furosemide 40 mg 02/09/19 12:00 02/12/19 09:56 Lasix PO 40 mg DAILY MAYLIN Administration Hydralazine HCl 25 mg 02/12/19 08:45 02/13/19 05:06 Apresoline PO 25 mg Q8HR MAYLIN Administration Hydralazine HCl 10 mg 02/12/19 08:39 Apresoline IV Q4HR PRN Hypertension Hydrochlorothiazide 12.5 mg 02/09/19 12:00 02/12/19 09:56 Hctz PO 12.5 mg QDAY MAYLIN Administration Sodium Chloride 1,000 mls @ 100 mls/hr 02/09/19 11:00 02/13/19 00:57 Nacl 0.9% 1000 Ml IV 100 mls/hr DIRECT MAYLIN Administration Insulin Human Lispro 0 unit 02/09/19 12:54 02/13/19 07:30 Humalog SUB-Q Not Given ACHS [facility] Protocol Ondansetron HCl 4 mg 02/09/19 05:41 02/10/19 22:05 Zofran IV 4 mg Q8H PRN Administration Nausea And Vomiting Pantoprazole Sodium 40 mg 02/12/19 17:00 02/12/19 17:32 Protonix PO 40 mg QDAY MAYLIN Administration Sodium Chloride 10 ml 02/09/19 10:00 02/12/19 21:10 Sodium Chloride Flush Syringe 10 Ml IV 10 ml BID MAYLIN Administration Sodium Chloride 10 ml 02/09/19 05:41 Sodium Chloride Flush Syringe 10 Ml IV PRN PRN LINE FLUSH
[2019-02-13] MEDS: FUROSEMIDE 40 MG TAB PO SCH (10:16)
[2019-02-13] MEDS: CILOSTAZOL 100 MG TAB PO SCH ×2 (10:16→22:00)
[2019-02-13] MEDS: allopurinoL 100 MG TAB PO SCH (10:17)
[2019-02-13] MEDS: PANTOPRAZOLE 40 MG TAB PO SCH (10:17)
[2019-02-13] MEDS: hydroCHLOROthiazide 12.5 MG CAP PO SCH (10:18)
--- NOTE | 2019-02-13 10:55 | Consultation ---
History of Present Illness - Reason for Consult Consult date: 02/13/19 acute renal failure, hyponatremia - History of Present Illness The patient is a 73 YO female with history significant for DM type 2, HTN, CAD and Gout who presented to [facility] ED on 02/08/2019 with c/o coughing up blood over that started 2 days [employer]. Patient is a very poor historian and there was no family member at the bedside. Also h/o wheezing, short of breath, weight loss and decreased appetite. H/o positive for foul odor in the breath. No h/o night sweats or recent travel. She was found to have cavitating L UE lung mass. Creatinine level increased from 1.9 on admission to 2.8 today. Sodium is 127 and bicarb 17. She received IV contrast on 02/08. Nephrology was consulted for further evaluation of NEELIMA. Past History Past Medical History: anemia, diabetes, hypertension, hyperlipidemia, other (Gout) Social history: smoking Family history: diabetes Medications and Allergies Allergies Allergy/AdvReac Type Severity Reaction Status Date / Time ibuprofen Allergy Unknown Verified 02/08/19 18:37 Penicillins Allergy Unknown Verified 02/08/19 18:37 Home Medications Medication Instructions Recorded Confirmed Last Taken Type Glipizide/Metformin HCl 1 each PO DAILY 12/24/18 02/09/19 Unknown History [glipiZIDE-Metformin 2.5-500 mg] Allopurinol 100 mg PO DAILY 12/26/18 02/09/19 Unknown History Aspirin 325 mg PO DAILY 12/26/18 02/09/19 Unknown History Cilostazol 100 mg PO BID 12/26/18 02/09/19 Unknown History Ferrous Sulfate 325 mg PO DAILY 12/26/18 02/09/19 Unknown History Furosemide 40 mg PO DAILY 12/26/18 02/09/19 Unknown History HCTZ 12.5 mg PO DAILY 12/26/18 02/09/19 Unknown History Losartan 100 mg PO DAILY 12/26/18 02/09/19 Unknown History Metoprolol Tartrate 50 mg PO BID #60 12/29/18 02/09/19 Unknown Rx Ipratropium (Nf) [Atrovent] 2 puff IH Q6HR PRN #1 inha 01/11/19 02/09/19 Unknown Rx Acetaminophen/Codeine [Tylenol 1 tab PO Q6H PRN #12 tab 01/21/19 02/09/19 Unknown Rx /Codeine # 3 tab] AtorvaSTATin [Lipitor] 40 mg PO QHS 02/09/19 02/09/19 Unknown History raNITIdine HCl [Zantac] 1 tab PO BID 02/09/19 02/09/19 Unknown History Active Meds: Active Medications Acetaminophen (Tylenol) 650 mg PO Q4H PRN PRN Reason: Pain MILD(1-3)/Fever >100.5/BRENNER Last Admin: 02/10/19 22:05 Dose: 650 mg Documented by: Acetaminophen/Codeine Phosphate (Tylenol #3) 1 tab PO Q6H PRN PRN Reason: Pain, Moderate (4-6) Last Admin: 02/13/19 06:46 Dose: 1 tab Documented by: Allopurinol (Zyloprim) 100 mg PO QDAY [facility] Last Admin: 02/13/19 10:17 Dose: 100 mg Documented by: Atorvastatin Calcium (Lipitor) 40 mg PO QHS [facility] Last Admin: 02/12/19 21:11 Dose: 40 mg Documented by: Cilostazol (Pletal) 100 mg PO BID [facility] Last Admin: 02/13/19 10:16 Dose: 100 mg Documented by: Dextrose (D50w (25gm) Syringe) 50 ml IV Q30MIN PRN PRN Reason: Hypoglycemia Furosemide (Lasix) 40 mg PO DAILY [facility] Last Admin: 02/13/19 10:16 Dose: 40 mg Documented by: Hydralazine HCl (Apresoline) 25 mg PO Q8HR [facility] Last Admin: 02/13/19 05:06 Dose: 25 mg Documented by: Hydralazine HCl (Apresoline) 10 mg IV Q4HR PRN PRN Reason: Hypertension Sodium Chloride (Nacl 0.9% 1000 Ml) 1,000 mls @ 100 mls/hr IV DIRECT [facility] Last Admin: 02/13/19 00:57 Dose: 100 mls/hr Documented by: Insulin Human Lispro (Humalog) 0 unit SUB-Q ACHS [facility]; Protocol Last Admin: 02/13/19 07:30 Dose: Not Given Documented by: Ondansetron HCl (Zofran) 4 mg IV Q8H PRN PRN Reason: Nausea And Vomiting Last Admin: 02/10/19 22:05 Dose: 4 mg Documented by: Pantoprazole Sodium (Protonix) 40 mg PO QDAY [facility] Last Admin: 02/13/19 10:17 Dose: 40 mg Documented by: Sodium Chloride (Sodium Chloride Flush Syringe 10 Ml) 10 ml IV BID [facility] Last Admin: 02/13/19 10:17 Dose: 10 ml Documented by: Sodium Chloride (Sodium Chloride Flush Syringe 10 Ml) 10 ml IV PRN PRN PRN Reason: LINE FLUSH Review of Systems ROS unobtainable: due to mental status Exam - Vital Signs Vital signs: Vital Signs Temp Pulse Resp BP Pulse Ox 98.5 F 85 18 157/68 98 02/08/19 21:25 02/08/19 21:25 02/08/19 21:25 02/08/19 21:25 02/08/19 21:25 - General Appearance General appearance: well-developed, well-nourished, appears stated age, other (no distress) EENT: ATNC, PERRL, mucous membranes dry, hearing intact, vision intact Neck: Present: neck supple, trachea midline Respiratory: Wheezes Heart: regular, tachycardia, S1S2 Gastrointestinal: Present: normoactive bowel sounds. Absent: tenderness, distended Integumentary: no rash, warm and dry Neurologic: no focal deficit, no asterixis, confused Musculoskeletal: Present: other (no edema) Psychiatric: cooperative Results - Lab Results 02/13/19 05:08 02/13/19 05:08 Most recent lab results Calcium 8.1 mg/dL (8.4-10.2) L 02/13/19 05:08 Assessment and Plan 1. Acute kidney injury: NEELIMA in the setting of IV contrast and volume depletion. Urine studies and Renal US ordered. Continue IV fluids. Monitor renal function. renal prognosis is guarded. Avoid nephrotoxic agents. Meds dosage based on GFR. 2. FEN: Hyponatremia, 2/2 HCTZ. HCTZ stopped. Continue IV fluids. Metabolic acidosis, start on sodium bicarbonate Monitor lytes. 3. Left UL cavitating lung lesion: Followed by Pulmonary and ID. 4. H/o CAD. 5. DM-2. 6. Hypertension: Started on Metoprolol. 7. Anemia: POA.
[2019-02-13] MEDS: METOPROLOL TARTRATE 50 MG TAB PO SCH ×2 (12:00→22:00)
--- NOTE | 2019-02-13 12:59 | Ultrasound Report ---
ULTRASOUND RENAL INDICATION: Acute renal failure.. COMPARISON: No relevant prior imaging study available. FINDINGS: RIGHT KIDNEY: Size: 10.5 cm. Echogenicity: Normal. Cortical thickness: Normal. Hydronephrosis: None. Cyst or mass: None. Stones: None. LEFT KIDNEY: Size: 10.8 cm. Echogenicity: Normal. Cortical thickness: Normal. Hydronephrosis: None. Cyst or mass: Simple 1.4 x 1.1 cm left renal cyst.. Stones: None. Urinary Bladder: No significant abnormality. Free Fluid: None. Additional Findings: Moderate left pleural effusion. IMPRESSION 1. No acute sonographic abnormality of the kidneys. 2. Simple left renal cyst. No further follow-up is indicated. 3. Moderate left pleural effusion Signer Name: Shantanu Pierre MD Signed: 02/13/2019 12:55 PM Workstation Name: [id number]
[2019-02-13] MEDS: SODIUM BICARBONATE 650 MG TAB PO SCH ×2 (13:28→20:50)
[2019-02-13 17:11] LABS: Calcium 8.2 mg/dL (8.4-10.2)
--- NOTE | 2019-02-13 17:56 | Progress Note ---
Assessment and Plan 73 y/o female with abnormal CXR/CT scan concern for infection vs malignancy with renal failure. 1. Follow up path results 2. Abx therapy 3. Follow up renal recs Subjective Date of service: 02/13/19 Principal diagnosis: lung mass s/p bronch Interval history: No acute events. Renal now following patient Objective Vital Signs - 12hr 02/13/19 02/13/19 02/13/19 06:46 07:53 12:18 Temperature 98.8 F 99.3 F Pulse Rate 125 H Respiratory 18 16 Rate Blood Pressure 140/65 O2 Sat by Pulse 94 96 Oximetry Constitutional: no acute distress, alert Eyes: non-icteric ENT: oropharynx moist, other (poor dentition) Neck: supple, no JVD Effort: normal Ascultation: Right: clear, Left: diminished breath sounds (upper lobe), Abrahan ateral: wheezes (mild) Percussion: Bilateral: not dull Cardiovascular: regular rate and rhythm Gastrointestinal: normoactive bowel sounds, soft, non-tender Extremities: no edema, pink and warm, pulses normal Neurologic: normal mental status CBC and BMP: 02/13/19 05:08 02/13/19 16:06 ABG, PT/INR, D-dimer: PT/INR, D-dimer PT 13.7 Sec. (12.2-14.9) 02/08/19 21:33 INR 1.06 (0.87-1.13) 02/08/19 21:33 D-Dimer 640.67 ng/mlDDU (0-234) H 02/08/19 21:33 Abnormal lab findings: Abnormal Labs 02/08/19 02/08/19 02/08/19 21:33 21:33 21:33 WBC 16.5 H RBC 3.38 L Hgb 8.8 L Hct 26.7 L MCV MCH 26 L RDW 18.5 H Plt Count 563 H [place] % (Auto) 10.5 H [place] # 1.7 H Baso # 0.2 H Seg Neutrophils % Seg Neutrophils # 11.5 H D-Dimer 640.67 H Sodium 131 L Chloride 92.4 L Carbon Dioxide BUN 51 H Creatinine 1.9 H Glucose 193 H POC Glucose Calcium Total Creatine Kinase 27 L CK-MB (CK-2) Rel Index 6.6 H 11/05/19 11/05/19 11/05/19 11:04 16:18 21:59 WBC RBC Hgb Hct MCV MCH RDW Plt Count [place] % (Auto) [place] # Baso # Seg Neutrophils % Seg Neutrophils # D-Dimer Sodium Chloride Carbon Dioxide BUN Creatinine Glucose POC Glucose 203 H 120 H 138 H Calcium Total Creatine Kinase CK-MB (CK-2) Rel Index 02/10/19 02/10/19 02/10/19 05:44 05:44 08:09 WBC 13.2 H RBC 3.00 L Hgb 7.5 L Hct 23.6 L MCV MCH 25 L RDW 19.5 H Plt Count 454 H [place] % (Auto) 11.1 H [place] # 1.5 H Baso # Seg Neutrophils % 72.0 H Seg Neutrophils # 9.5 H D-Dimer Sodium 132 L Chloride 95.3 L Carbon Dioxide 21 L BUN 49 H Creatinine 2.0 H Glucose 124 H POC Glucose 139 H Calcium Total Creatine Kinase CK-MB (CK-2) Rel Index 02/10/19 02/10/19 02/10/19 12:39 16:20 21:19 WBC RBC Hgb Hct MCV MCH RDW Plt Count [place] % (Auto) [place] # Baso # Seg Neutrophils % Seg Neutrophils # D-Dimer Sodium Chloride Carbon Dioxide BUN Creatinine Glucose POC Glucose 197 H 158 H 165 H Calcium Total Creatine Kinase CK-MB (CK-2) Rel Index 02/11/19 02/11/19 02/11/19 08:06 13:26 17:23 WBC RBC Hgb Hct MCV MCH RDW Plt Count [place] % (Auto) [place] # Baso # Seg Neutrophils % Seg Neutrophils # D-Dimer Sodium Chloride Carbon Dioxide BUN Creatinine Glucose POC Glucose 116 H 174 H 220 H Calcium Total Creatine Kinase CK-MB (CK-2) Rel Index 02/11/19 02/12/19 02/12/19 21:33 11:40 17:40 WBC RBC Hgb Hct MCV MCH RDW Plt Count [place] % (Auto) [place] # Baso # Seg Neutrophils % Seg Neutrophils # D-Dimer Sodium Chloride Carbon Dioxide BUN Creatinine Glucose POC Glucose 140 H 166 H 231 H Calcium Total Creatine Kinase CK-MB (CK-2) Rel Index 02/12/19 02/13/19 02/13/19 21:07 05:08 05:08 WBC 14.5 H RBC 2.95 L Hgb 7.4 L Hct 23.0 L MCV 78 L MCH 25 L RDW 18.7 H Plt Count [place] % (Auto) 11.4 H [place] # 1.7 H Baso # Seg Neutrophils % 72.5 H Seg Neutrophils # 10.5 H D-Dimer Sodium 127 L Chloride 97.1 L Carbon Dioxide 17 L BUN 48 H Creatinine 2.8 H Glucose 117 H POC Glucose 148 H Calcium 8.1 L Total Creatine Kinase CK-MB (CK-2) Rel Index 02/13/19 02/13/19 02/13/19 07:39 12:06 16:06 WBC RBC Hgb Hct MCV MCH RDW Plt Count [place] % (Auto) [place] # Baso # Seg Neutrophils % Seg Neutrophils # D-Dimer Sodium 132 L Chloride Carbon Dioxide 19 L BUN 49 H Creatinine 2.8 H Glucose 221 H POC Glucose 122 H 131 H Calcium 8.2 L Total Creatine Kinase CK-MB (CK-2) Rel Index 02/13/19 16:46 WBC RBC Hgb Hct MCV MCH RDW Plt Count [place] % (Auto) [place] # Baso # Seg Neutrophils % Seg Neutrophils # D-Dimer Sodium Chloride Carbon Dioxide BUN Creatinine Glucose POC Glucose 213 H Calcium Total Creatine Kinase CK-MB (CK-2) Rel Index
[2019-02-14 05:22] LABS: Albumin 2.3 g/dL (3.9-5); Calcium 8.2 mg/dL (8.4-10.2)
[2019-02-14] MEDS: hydrALAZINE 25 MG TAB PO SCH ×3 (06:02→21:06)
[2019-02-14] MEDS: SODIUM CHLORIDE 0.9% 1000 ML 1,000 ML IV SCH (06:07)
[2019-02-14] MEDS: INSULIN LISPRO 100 UNIT/ML SUB-Q SCH ×4 (08:24→22:36)
[2019-02-14] MEDS: SODIUM BICARBONATE 650 MG TAB PO SCH ×3 (08:40→20:57)
--- NOTE | 2019-02-14 09:03 | Progress Note ---
Assessment and Plan Assessment and plan: --Severe hyponatremia; significantly Improved DC IV fluids , IV Lasix one dose , monitor electrolytes Nephrology following --Acute kidney injury; vasomotor nephropathy monitor renal function, avoid nephrotoxins Nephrology following renal ultrasound renal cysts Pleural effusion --Left cavitary lesion; possible lung mass s/p bronchoscopy, f/u cytology,brushings sent Negative for AFB stain, Negative for fungi by stain Rule out tuberculosis, f/u AFB smear and cultures Pulmonary following, Airborne isolation --SIRS with organ dysfunction --Type 2 diabetes mellitus; Accu-Chek sliding scale coverage ADA diet, insulin as needed --Hypertension; moderate control Continue current antihypertensives and as needed medications --Severe Malnutrition/hypoalbuminemia; Nutrition consult --Dyslipidemia; continue statin --DVT prophylaxis; Lovenox Airborne isolation Monitor closely and adjust management as needed History Interval history: Patient seen and examined medical records reviewed Complaints of mild shortness of breath and congestion Patient is alert wake oriented 3 Vital signs reviewed Hospitalist Physical - Constitutional Vitals: Temp Pulse Resp BP Pulse Ox 98.9 F 92 H 18 145/55 96 02/14/19 04:56 02/14/19 06:02 02/14/19 04:56 02/14/19 06:02 02/14/19 04:56 General appearance: Present: no acute distress, well-nourished - EENT Eyes: Present: PERRL, EOM intact - Neck Neck: Present: supple, normal ROM - Respiratory Respiratory effort: normal Respiratory: left: rhonchi, bilateral: diminished, negative: rales, wheezing - Cardiovascular Rhythm: regular Heart Sounds: Present: S1 & S2 - Extremities Extremities: no ischemia, No edema - Abdominal General gastrointestinal: soft, non-tender, non-distended, normal bowel sounds - Integumentary Integumentary: Present: clear, warm - Psychiatric Psychiatric: appropriate mood/affect, cooperative - Neurologic Neurologic: moves all extremities Results - Labs CBC & Chem 7: 02/13/19 05:08 02/14/19 04:09 Labs: Laboratory Last Values WBC 14.5 K/mm3 (4.5-11.0) H 02/13/19 05:08 RBC 2.95 M/mm3 (3.65-5.03) L 02/13/19 05:08 Hgb 7.4 gm/dl (10.1-14.3) L 02/13/19 05:08 Hct 23.0 % (30.3-42.9) L 02/13/19 05:08 MCV 78 fl (79-97) L 02/13/19 05:08 MCH 25 pg (28-32) L 02/13/19 05:08 MCHC 32 % (30-34) 02/13/19 05:08 RDW 18.7 % (13.2-15.2) H 02/13/19 05:08 Plt Count 440 K/mm3 (140-440) 02/13/19 05:08 Lymph % (Auto) 13.7 % (13.4-35.0) 02/13/19 05:08 [place] % (Auto) 11.4 % (0.0-7.3) H 02/13/19 05:08 Eos % (Auto) 1.7 % (0.0-4.3) 02/13/19 05:08 Baso % (Auto) 0.7 % (0.0-1.8) 02/13/19 05:08 Lymph # 2.0 K/mm3 (1.2-5.4) 02/13/19 05:08 [place] # 1.7 K/mm3 (0.0-0.8) H 02/13/19 05:08 Eos # 0.2 K/mm3 (0.0-0.4) 02/13/19 05:08 Baso # 0.1 K/mm3 (0.0-0.1) 02/13/19 05:08 Seg Neutrophils % 72.5 % (40.0-70.0) H 02/13/19 05:08 Seg Neutrophils # 10.5 K/mm3 (1.8-7.7) H 02/13/19 05:08 PT 13.7 Sec. (12.2-14.9) 02/08/19 21:33 INR 1.06 (0.87-1.13) 02/08/19 21:33 APTT 32.8 Sec. (24.2-36.6) 02/08/19 21:33 D-Dimer 640.67 ng/mlDDU (0-234) H 02/08/19 21:33 Sodium 132 mmol/L (137-145) L 02/14/19 04:09 Potassium 4.8 mmol/L (3.6-5.0) 02/14/19 04:09 Chloride 102.6 mmol/L (98-107) 02/14/19 04:09 Carbon Dioxide 18 mmol/L (22-30) L 02/14/19 04:09 Anion Gap 16 mmol/L 02/14/19 04:09 BUN 47 mg/dL (7-17) H 02/14/19 04:09 Creatinine 2.8 mg/dL (0.7-1.2) H 02/14/19 04:09 Estimated GFR 20 ml/min 02/14/19 04:09 BUN/Creatinine Ratio 17 % 02/14/19 04:09 Glucose 98 mg/dL (65-100) 02/14/19 04:09 POC Glucose 115 (70-105) H 02/14/19 07:46 Lactic Acid 1.30 mmol/L (0.7-2.0) 02/08/19 21:33 Calcium 8.2 mg/dL (8.4-10.2) L 02/14/19 04:09 Phosphorus 4.70 mg/dL (2.5-4.5) H 02/14/19 04:09 Magnesium 1.60 mg/dL (1.7-2.3) L 02/14/19 04:09 Total Bilirubin 0.20 mg/dL (0.1-1.2) 02/14/19 04:09 AST 18 units/L (5-40) 02/14/19 04:09 ALT 7 units/L (7-56) 02/14/19 04:09 Alkaline Phosphatase 78 units/L (35-129) 02/14/19 04:09 Total Creatine Kinase 27 units/L (30-135) L 02/08/19 21:33 CK-MB (CK-2) 1.8 ng/mL (0.0-4.0) 02/08/19 21:33 CK-MB (CK-2) Rel Index 6.6 (0-4) H 02/08/19 21:33 Troponin T < 0.010 ng/mL (0.00-0.029) 02/08/19 21:33 Total Protein 6.9 g/dL (6.3-8.2) 02/14/19 04:09 Albumin 2.3 g/dL (3.9-5) L 02/14/19 04:09 Albumin/Globulin Ratio 0.5 % 02/14/19 04:09 Lipase 22 units/L (13-60) 02/08/19 21:33 AFB Identification 02/11/19 Unknown Fungal Id Prelim 02/11/19 Unknown Thin Pap Review [employer] 02/11/19 Unknown Active Medications - Current Medications Current Medications: Generic Name Dose Route Start Last Admin Trade Name Freq PRN Reason Stop Dose Admin Acetaminophen 650 mg 02/09/19 05:41 02/10/19 22:05 Tylenol PO 650 mg Q4H PRN Administration Pain MILD(1-3)/Fever >100.5/BRENNER Acetaminophen/Codeine Phosphate 1 tab 02/09/19 10:25 02/13/19 06:46 Tylenol #3 PO 1 tab Q6H PRN Administration Pain, Moderate (4-6) Allopurinol 100 mg 02/09/19 12:00 02/13/19 10:17 Zyloprim PO 100 mg QDAY MAYLIN Administration Atorvastatin Calcium 40 mg 02/09/19 22:00 02/13/19 22:00 Lipitor PO 40 mg QHS MAYLIN Administration Cilostazol 100 mg 02/09/19 12:00 02/13/19 22:00 Pletal PO 100 mg BID MAYLIN Administration Dextrose 50 ml 02/09/19 06:53 D50w (25gm) Syringe IV Q30MIN PRN Hypoglycemia Hydralazine HCl 25 mg 02/12/19 08:45 02/14/19 06:02 Apresoline PO 25 mg Q8HR MAYLIN Administration Hydralazine HCl 10 mg 02/12/19 08:39 Apresoline IV Q4HR PRN Hypertension Sodium Chloride 1,000 mls @ 100 mls/hr 02/09/19 11:00 02/14/19 06:07 Nacl 0.9% 1000 Ml IV 100 mls/hr DIRECT MAYLIN Administration Insulin Human Lispro 0 unit 02/09/19 12:54 02/14/19 08:24 Humalog SUB-Q Not Given ACHS MAYLIN Protocol Magnesium Oxide 400 mg 02/14/19 10:00 Mag-Ox PO QDAY MAYLIN Metoprolol Tartrate 50 mg 02/13/19 12:00 02/13/19 22:00 Metoprolol PO 50 mg BID MAYLIN Administration Ondansetron HCl 4 mg 02/09/19 05:41 02/10/19 22:05 Zofran IV 4 mg Q8H PRN Administration Nausea And Vomiting Pantoprazole Sodium 40 mg 02/12/19 17:00 02/13/19 10:17 Protonix PO 40 mg QDAY MAYLIN Administration Sodium Bicarbonate 650 mg 02/13/19 14:00 02/14/19 08:40 Sodium Bicarbonate PO 650 mg TID MAYLIN Administration Sodium Chloride 10 ml 02/09/19 10:00 02/13/19 22:00 Sodium Chloride Flush Syringe 10 Ml IV 10 ml BID MAYLIN Administration Sodium Chloride 10 ml 02/09/19 05:41 Sodium Chloride Flush Syringe 10 Ml IV PRN PRN LINE FLUSH
[2019-02-14] MEDS ORDERED: MAGNESIUM SULFATE 2 GM/50 ML BAG IV ONE (09:30)
--- NOTE | 2019-02-14 10:43 | Progress Note ---
Assessment and Plan 73 y/o female with abnormal CXR/CT scan concern for infection vs malignancy with renal failure. 1. Will discuss with path tomorrow when they are here to confirm that this is negative for malignancy. Brushings and Wash 2. May need repeat bronch in a few weeks post abx to see if there is improvement 3. Follow up renal and ID recs Subjective Date of service: 02/14/19 Principal diagnosis: lung mass s/p bronch Interval history: Per report pathology is negative. Objective Vital Signs - 12hr 02/14/19 02/14/19 04:56 06:02 Temperature 98.9 F Pulse Rate 92 H 92 H Respiratory 18 Rate Blood Pressure 144/55 145/55 O2 Sat by Pulse 96 Oximetry Constitutional: no acute distress, alert Eyes: non-icteric ENT: oropharynx moist, other (poor dentition) Neck: supple, no JVD Effort: normal Ascultation: Right: clear, Left: diminished breath sounds (upper lobe), Bilateral: wheezes (mild) Percussion: Bilateral: not dull Cardiovascular: regular rate and rhythm Gastrointestinal: normoactive bowel sounds, soft, non-tender Extremities: no edema, pink and warm, pulses normal Neurologic: normal mental status CBC and BMP: 02/13/19 05:08 02/14/19 04:09 ABG, PT/INR, D-dimer: PT/INR, D-dimer PT 13.7 Sec. (12.2-14.9) 02/08/19 21:33 INR 1.06 (0.87-1.13) 02/08/19 21:33 D-Dimer 640.67 ng/mlDDU (0-234) H 02/08/19 21:33 Abnormal lab findings: Abnormal Labs 02/08/19 02/08/19 02/08/19 21:33 21:33 21:33 WBC 16.5 H RBC 3.38 L Hgb 8.8 L Hct 26.7 L MCV MCH 26 L RDW 18.5 H Plt Count 563 H [place] % (Auto) 10.5 H [place] # 1.7 H Baso # 0.2 H Seg Neutrophils % Seg Neutrophils # 11.5 H D-Dimer 640.67 H Sodium 131 L Chloride 92.4 L Carbon Dioxide BUN 51 H Creatinine 1.9 H Glucose 193 H POC Glucose Calcium Phosphorus Magnesium Total Creatine Kinase 27 L CK-MB (CK-2) Rel Index 6.6 H Albumin 02/09/19 02/09/19 02/09/19 11:04 16:18 21:59 WBC RBC Hgb Hct MCV MCH RDW Plt Count [place] % (Auto) [place] # Baso # Seg Neutrophils % Seg Neutrophils # D-Dimer Sodium Chloride Carbon Dioxide BUN Creatinine Glucose POC Glucose 203 H 120 H 138 H Calcium Phosphorus Magnesium Total Creatine Kinase CK-MB (CK-2) Rel Index Albumin 02/10/19 02/10/19 02/10/19 05:44 05:44 08:09 WBC 13.2 H RBC 3.00 L Hgb 7.5 L Hct 23.6 L MCV MCH 25 L RDW 19.5 H Plt Count 454 H [place] % (Auto) 11.1 H [place] # 1.5 H Baso # Seg Neutrophils % 72.0 H Seg Neutrophils # 9.5 H D-Dimer Sodium 132 L Chloride 95.3 L Carbon Dioxide 21 L BUN 49 H Creatinine 2.0 H Glucose 124 H POC Glucose 139 H Calcium Phosphorus Magnesium Total Creatine Kinase CK-MB (CK-2) Rel Index Albumin 02/10/19 02/10/19 02/10/19 12:39 16:20 21:19 WBC RBC Hgb Hct MCV MCH RDW Plt Count [place] % (Auto) [place] # Baso # Seg Neutrophils % Seg Neutrophils # D-Dimer Sodium Chloride Carbon Dioxide BUN Creatinine Glucose POC Glucose 197 H 158 H 165 H Calcium Phosphorus Magnesium Total Creatine Kinase CK-MB (CK-2) Rel Index Albumin 02/11/19 02/11/19 02/11/19 08:06 13:26 17:23 WBC RBC Hgb Hct MCV MCH RDW Plt Count [place] % (Auto) [place] # Baso # Seg Neutrophils % Seg Neutrophils # D-Dimer Sodium Chloride Carbon Dioxide BUN Creatinine Glucose POC Glucose 116 H 174 H 220 H Calcium Phosphorus Magnesium Total Creatine Kinase CK-MB (CK-2) Rel Index Albumin 02/11/19 02/12/19 02/12/19 21:33 11:40 17:40 WBC RBC Hgb Hct MCV MCH RDW Plt Count [place] % (Auto) [place] # Baso # Seg Neutrophils % Seg Neutrophils # D-Dimer Sodium Chloride Carbon Dioxide BUN Creatinine Glucose POC Glucose 140 H 166 H 231 H Calcium Phosphorus Magnesium Total Creatine Kinase CK-MB (CK-2) Rel Index Albumin 02/12/19 02/13/19 02/13/19 21:07 05:08 05:08 WBC 14.5 H RBC 2.95 L Hgb 7.4 L Hct 23.0 L MCV 78 L MCH 25 L RDW 18.7 H Plt Count [place] % (Auto) 11.4 H [place] # 1.7 H Baso # Seg Neutrophils % 72.5 H Seg Neutrophils # 10.5 H D-Dimer Sodium 127 L Chloride 97.1 L Carbon Dioxide 17 L BUN 48 H Creatinine 2.8 H Glucose 117 H POC Glucose 148 H Calcium 8.1 L Phosphorus Magnesium Total Creatine Kinase CK-MB (CK-2) Rel Index Albumin 02/13/19 02/13/19 02/13/19 07:39 12:06 16:06 WBC RBC Hgb Hct MCV MCH RDW Plt Count [place] % (Auto) [place] # Baso # Seg Neutrophils % Seg Neutrophils # D-Dimer Sodium 132 L Chloride Carbon Dioxide 19 L BUN 49 H Creatinine 2.8 H Glucose 221 H POC Glucose 122 H 131 H Calcium 8.2 L Phosphorus Magnesium Total Creatine Kinase CK-MB (CK-2) Rel Index Albumin 02/13/19 02/13/19 02/14/19 16:46 21:05 04:09 WBC RBC Hgb Hct MCV MCH RDW Plt Count [place] % (Auto) [place] # Baso # Seg Neutrophils % Seg Neutrophils # D-Dimer Sodium 132 L Chloride Carbon Dioxide 18 L BUN 47 H Creatinine 2.8 H Glucose POC Glucose 213 H 137 H Calcium 8.2 L Phosphorus 4.70 H Magnesium 1.60 L Total Creatine Kinase CK-MB (CK-2) Rel Index Albumin 2.3 L 02/14/19 07:46 WBC RBC Hgb Hct MCV MCH RDW Plt Count [place] % (Auto) [place] # Baso # Seg Neutrophils % Seg Neutrophils # D-Dimer Sodium Chloride Carbon Dioxide BUN Creatinine Glucose POC Glucose 115 H Calcium Phosphorus Magnesium Total Creatine Kinase CK-MB (CK-2) Rel Index Albumin
[2019-02-14] MEDS: MAGNESIUM OXIDE 400 MG TAB PO SCH (11:12)
[2019-02-14] MEDS: CILOSTAZOL 100 MG TAB PO SCH ×2 (11:13→21:07)
[2019-02-14] MEDS: PANTOPRAZOLE 40 MG TAB PO SCH (11:13)
[2019-02-14] MEDS: allopurinoL 100 MG TAB PO SCH (11:13)
[2019-02-14] MEDS: METOPROLOL TARTRATE 50 MG TAB PO SCH ×2 (11:13→21:06)
--- NOTE | 2019-02-14 11:27 | Progress Note ---
Assessment and Plan 1. Acute kidney injury: NEELIMA in the setting of IV contrast and volume depletion. Renal US negative for hydro. Continue IV fluids. Creatinine leveled off. Monitor renal function. renal prognosis is guarded. Avoid nephrotoxic agents. Meds dosage based on GFR. 2. FEN: Hyponatremia, 2/2 HCTZ. Sodium level is better. Metabolic acidosis, continue sodium bicarbonate Monitor lytes. 3. Left UL cavitating lung lesion: Followed by Pulmonary and ID. 4. H/o CAD. 5. DM-2. 6. Hypertension: Monitor BP. 7. Anemia: POA. Care plan d/w her daughter. Examination: General appearance: well-developed, well-nourished, appears stated age, no distress HEENT: ATNC, PERRL, mucous membranes dry, hearing intact, vision intact Neck: Present: neck supple, trachea midline Respiratory: Wheezes Heart: regular, S1S2, no murmur Gastrointestinal: normoactive bowel sounds, not tender, not distended Integumentary: no rash, warm and dry Neurologic: no focal deficit, no asterixis, confused Ext: no edema Psychiatric: cooperative Subjective Date of service: 02/14/19 Principal diagnosis: lung mass s/p bronch Interval history: Patient was seen and examined at the bedside. Doing ok. Daughter at the bedside. Objective - Vital Signs Vital signs: Vital Signs - 12hr 02/14/19 02/14/19 02/14/19 04:56 06:02 11:13 Temperature 98.9 F Pulse Rate 92 H 92 H 97 H Respiratory 18 Rate Blood Pressure 144/55 145/55 131/47 O2 Sat by Pulse 96 Oximetry - Lab 02/13/19 05:08 02/14/19 04:09 Most recent lab results Calcium 8.2 mg/dL (8.4-10.2) L 02/14/19 04:09 Phosphorus 4.70 mg/dL (2.5-4.5) H 02/14/19 04:09 Magnesium 1.60 mg/dL (1.7-2.3) L 02/14/19 04:09 Medications & Allergies - Medications Allergies/Adverse Reactions: Allergies ibuprofen Allergy (Verified 02/08/19 18:37) Unknown Penicillins Allergy (Verified 02/08/19 18:37) Unknown Home Medications: Home Medications Medication Instructions Recorded Confirmed Last Taken Type Glipizide/Metformin HCl 1 each PO DAILY 12/24/18 02/09/19 Unknown History [glipiZIDE-Metformin 2.5-500 mg] Allopurinol 100 mg PO DAILY 12/26/18 02/09/19 Unknown History Aspirin 325 mg PO DAILY 12/26/18 02/09/19 Unknown History Cilostazol 100 mg PO BID 12/26/18 02/09/19 Unknown History Ferrous Sulfate 325 mg PO DAILY 12/26/18 02/09/19 Unknown History Furosemide 40 mg PO DAILY 12/26/18 02/09/19 Unknown History HCTZ 12.5 mg PO DAILY 12/26/18 02/09/19 Unknown History Losartan 100 mg PO DAILY 12/26/18 02/09/19 Unknown History Metoprolol Tartrate 50 mg PO BID #60 12/29/18 02/09/19 Unknown Rx Ipratropium (Nf) [Atrovent] 2 puff IH Q6HR PRN #1 inha 01/11/19 02/09/19 Unknown Rx Acetaminophen/Codeine [Tylenol 1 tab PO Q6H PRN #12 tab 01/21/19 02/09/19 Unknown Rx /Codeine # 3 tab] AtorvaSTATin [Lipitor] 40 mg PO QHS 02/09/19 02/09/19 Unknown History raNITIdine HCl [Zantac] 1 tab PO BID 02/09/19 02/09/19 Unknown History Active Medications: Generic Name Dose Route Start Last Admin Trade Name Freq PRN Reason Stop Dose Admin Acetaminophen 650 mg 02/09/19 05:41 02/10/19 22:05 Tylenol PO 650 mg Q4H PRN Administration Pain MILD(1-3)/Fever >100.5/BRENNER Acetaminophen/Codeine Phosphate 1 tab 02/09/19 10:25 02/13/19 06:46 Tylenol #3 PO 1 tab Q6H PRN Administration Pain, Moderate (4-6) Allopurinol 100 mg 02/09/19 12:00 02/14/19 11:13 Zyloprim PO 100 mg QDAY MAYLIN Administration Atorvastatin Calcium 40 mg 02/09/19 22:00 02/13/19 22:00 Lipitor PO 40 mg QHS MAYLIN Administration Cilostazol 100 mg 02/09/19 12:00 02/14/19 11:13 Pletal PO 100 mg BID MAYLIN Administration Dextrose 50 ml 02/09/19 06:53 D50w (25gm) Syringe IV Q30MIN PRN Hypoglycemia Furosemide 40 mg 02/14/19 11:23 Lasix IV 02/14/19 11:24 ONCE ONE Hydralazine HCl 25 mg 02/12/19 08:45 02/14/19 06:02 Apresoline PO 25 mg Q8HR MAYLIN Administration Hydralazine HCl 10 mg 02/12/19 08:39 Apresoline IV Q4HR PRN Hypertension Magnesium Sulfate 2 gm in 50 mls @ 25 mls/hr 02/14/19 09:30 02/14/19 11:14 Magnesium Sulfate 2gm/50ml IV 02/14/19 11:29 25 mls/hr ONCE ONE Administration Insulin Human Lispro 0 unit 02/09/19 12:54 02/14/19 08:24 Humalog SUB-Q Not Given ACHS [facility] Protocol Magnesium Oxide 400 mg 02/14/19 10:00 02/14/19 11:12 Mag-Ox PO 400 mg QDAY MAYLIN Administration Metoprolol Tartrate 50 mg 02/13/19 12:00 02/14/19 11:13 Metoprolol PO 50 mg BID MAYLIN Administration Ondansetron HCl 4 mg 02/09/19 05:41 02/10/19 22:05 Zofran IV 4 mg Q8H PRN Administration Nausea And Vomiting Pantoprazole Sodium 40 mg 02/12/19 17:00 02/14/19 11:13 Protonix PO 40 mg QDAY MAYLIN Administration Sodium Bicarbonate 650 mg 02/13/19 14:00 02/14/19 08:40 Sodium Bicarbonate PO 650 mg TID MAYLIN Administration Sodium Chloride 10 ml 02/09/19 10:00 02/14/19 11:13 Sodium Chloride Flush Syringe 10 Ml IV 10 ml BID MAYLIN Administration Sodium Chloride 10 ml 02/09/19 05:41 Sodium Chloride Flush Syringe 10 Ml IV PRN PRN LINE FLUSH
[2019-02-14] MEDS: ACETAMINOPHEN 325 MG TAB PO PRN (11:54)
[2019-02-14] MEDS ORDERED: SODIUM CHLORIDE 0.9% 1000 ML 1,000 ML IV SCH (12:00)
[2019-02-14] MEDS ORDERED: FUROSEMIDE 40 MG/4 ML INJ IV ONE (12:00)
--- NOTE | 2019-02-14 18:31 | XRay Report ---
"CHEST 1 VIEW 02/14/2019 6:11 PM INDICATION / CLINICAL INFORMATION: shortness of breath. COMPARISON: Chest x-ray 02/08/2019 FINDINGS: SUPPORT DEVICES: None. HEART / MEDIASTINUM: No significant abnormality. LUNGS / PLEURA: Extensive left-sided pleural-parenchymal disease has worsened since prior study. Righ t lung is clear. No pneumothorax. ADDITIONAL FINDINGS: No significant additional findings. IMPRESSION: 1. Worsening left-sided pleural-parenchymal disease characteristic for bronchopneumonia. Signer Name: Shantanu Pierre MD Signed: 02/14/2019 6:27 PM Workstation Name: [id number] | [id number]"
[2019-02-14 18:35] LABS: Creatinine,Urine 62.9 mg/dL (0.1-20.0)
[2019-02-14 18:37] LABS: Bilirubin,Urine NEG (Negative); Blood,Urine NEG (Negative); Color,Urine Yellow (Yellow); Hyaline Casts,Urine 4 /LPF; Mucus,Urine FEW /HPF; Protein,Urine <15 mg/dL mg/dL (Negative); Urobilinogen,Urine < 2.0 mg/dL (<2.0)
[2019-02-15] MEDS: hydrALAZINE 25 MG TAB PO SCH ×3 (06:09→22:09)
[2019-02-15 07:36] LABS: Basophils # (Auto) 0.1 K/mm3 (0.0-0.1); Basophils % (Auto) 1.1 % (0.0-1.8); Eosinophils # (Auto) 0.3 K/mm3 (0.0-0.4); Eosinophils % (Auto) 2.2 % (0.0-4.3); Hematocrit 24.2 % (30.3-42.9); Hemoglobin 7.8 gm/dl (10.1-14.3); Lymphocytes # (Auto) 2.1 K/mm3 (1.2-5.4); Lymphocytes % (Auto) 17.9 % (13.4-35.0); Mean Corpuscular HGB Conc 32 % (30-34); Mean Corpuscular Volume 78 fl (79-97); Monocytes # (Auto) 1.2 K/mm3 (0.0-0.8); Monocytes % (Auto) 10.6 % (0.0-7.3); Platelet Count 514 K/mm3 (140-440); Red Blood Count 3.09 M/mm3 (3.65-5.03); Red Cell Distribution Width 18.9 % (13.2-15.2)
[2019-02-15] MEDS ORDERED: ALBUTEROL 2.5 MG/3 ML NEBU IH PRN (07:48)
[2019-02-15 07:53] LABS: Calcium 8.4 mg/dL (8.4-10.2)
[2019-02-15] MEDS: INSULIN LISPRO 100 UNIT/ML SUB-Q SCH ×4 (10:20→22:11)
[2019-02-15] MEDS: allopurinoL 100 MG TAB PO SCH (10:21)
[2019-02-15] MEDS: METOPROLOL TARTRATE 50 MG TAB PO SCH ×2 (10:21→22:10)
[2019-02-15] MEDS: CILOSTAZOL 100 MG TAB PO SCH ×2 (10:21→22:11)
[2019-02-15] MEDS: MAGNESIUM OXIDE 400 MG TAB PO SCH (10:21)
[2019-02-15] MEDS: PANTOPRAZOLE 40 MG TAB PO SCH (10:21)
[2019-02-15] MEDS: SODIUM BICARBONATE 650 MG TAB PO SCH ×3 (10:21→22:08)
--- NOTE | 2019-02-15 10:53 | Progress Note ---
Assessment and Plan 73 y/o female with abnormal CXR/CT scan concern for infection vs malignancy with renal failure. 1. Discussed with daughter. Will treat as infection for time frame that ID sees fit. Will follow up in my office and repeat imaging (start with CXR). Will then consider repeat bronch to make sure that mucosa is improving. Still very concerned that this could be malignancy. 2. Follow up renal recs. 3. Follow up ID recs Subjective Date of service: 02/15/19 Principal diagnosis: lung mass s/p bronch Interval history: No acute events. Per report, path is negative for malignant cells. Spoke with Daughter Lakshmi over the phone this am. Objective Vital Signs - 12hr 02/15/19 02/15/19 02/15/19 04:55 06:09 07:44 Temperature 97.0 F L Pulse Rate 87 87 Pulse Rate [ Posterior Bilateral Throughout] Respiratory 16 Rate Respiratory Rate [Posterior Bilateral Throughout] Blood Pressure 147/58 147/58 O2 Sat by Pulse 96 98 Oximetry 02/15/19 02/15/19 07:45 10:50 Temperature Pulse Rate Pulse Rate [ 68 Posterior Bilateral Throughout] Respiratory Rate Respiratory 20 Rate [Posterior Bilateral Throughout] Blood Pressure O2 Sat by Pulse 98 Oximetry Constitutional: no acute distress, alert Eyes: non-icteric ENT: oropharynx moist, other (poor dentition) Neck: supple, no JVD Effort: normal Ascultation: Right: clear, Left: diminished breath sounds (upper lobe), Bilateral: wheezes (mild) Percussion: Bilateral: not dull Cardiovascular: regular rate and rhythm Gastrointestinal: normoactive bowel sounds, soft, non-tender Extremities: no edema, pink and warm, pulses normal Neurologic: normal mental status CBC and BMP: 02/15/19 06:30 02/15/19 06:30 ABG, PT/INR, D-dimer: PT/INR, D-dimer PT 13.7 Sec. (12.2-14.9) 02/08/19 21:33 INR 1.06 (0.87-1.13) 02/08/19 21:33 D-Dimer 640.67 ng/mlDDU (0-234) H 02/08/19 21:33 Abnormal lab findings: Abnormal Labs 02/08/19 02/08/19 02/08/19 21:33 21:33 21:33 WBC 16.5 H RBC 3.38 L Hgb 8.8 L Hct 26.7 L MCV MCH 26 L RDW 18.5 H Plt Count 563 H [place] % (Auto) 10.5 H [place] # 1.7 H Baso # 0.2 H Seg Neutrophils % Seg Neutrophils # 11.5 H D-Dimer 640.67 H Sodium 131 L Chloride 92.4 L Carbon Dioxide BUN 51 H Creatinine 1.9 H Glucose 193 H POC Glucose Calcium Phosphorus Magnesium Total Creatine Kinase 27 L CK-MB (CK-2) Rel Index 6.6 H Albumin Urine Creatinine 02/09/19 02/09/19 02/09/19 11:04 16:18 21:59 WBC RBC Hgb Hct MCV MCH RDW Plt Count [place] % (Auto) [place] # Baso # Seg Neutrophils % Seg Neutrophils # D-Dimer Sodium Chloride Carbon Dioxide BUN Creatinine Glucose POC Glucose 203 H 120 H 138 H Calcium Phosphorus Magnesium Total Creatine Kinase CK-MB (CK-2) Rel Index Albumin Urine Creatinine 02/10/19 02/10/19 02/10/19 05:44 05:44 08:09 WBC 13.2 H RBC 3.00 L Hgb 7.5 L Hct 23.6 L MCV MCH 25 L RDW 19.5 H Plt Count 454 H [place] % (Auto) 11.1 H [place] # 1.5 H Baso # Seg Neutrophils % 72.0 H Seg Neutrophils # 9.5 H D-Dimer Sodium 132 L Chloride 95.3 L Carbon Dioxide 21 L BUN 49 H Creatinine 2.0 H Glucose 124 H POC Glucose 139 H Calcium Phosphorus Magnesium Total Creatine Kinase CK-MB (CK-2) Rel Index Albumin Urine Creatinine 02/10/19 02/10/19 02/10/19 12:39 16:20 21:19 WBC RBC Hgb Hct MCV MCH RDW Plt Count [place] % (Auto) [place] # Baso # Seg Neutrophils % Seg Neutrophils # D-Dimer Sodium Chloride Carbon Dioxide BUN Creatinine Glucose POC Glucose 197 H 158 H 165 H Calcium Phosphorus Magnesium Total Creatine Kinase CK-MB (CK-2) Rel Index Albumin Urine Creatinine 02/11/19 02/11/19 02/11/19 08:06 13:26 17:23 WBC RBC Hgb Hct MCV MCH RDW Plt Count [place] % (Auto) [place] # Baso # Seg Neutrophils % Seg Neutrophils # D-Dimer Sodium Chloride Carbon Dioxide BUN Creatinine Glucose POC Glucose 116 H 174 H 220 H Calcium Phosphorus Magnesium Total Creatine Kinase CK-MB (CK-2) Rel Index Albumin Urine Creatinine 02/11/19 02/12/19 02/12/19 21:33 11:40 17:40 WBC RBC Hgb Hct MCV MCH RDW Plt Count [place] % (Auto) [place] # Baso # Seg Neutrophils % Seg Neutrophils # D-Dimer Sodium Chloride Carbon Dioxide BUN Creatinine Glucose POC Glucose 140 H 166 H 231 H Calcium Phosphorus Magnesium Total Creatine Kinase CK-MB (CK-2) Rel Index Albumin Urine Creatinine 02/12/19 02/13/19 02/13/19 21:07 05:08 05:08 WBC 14.5 H RBC 2.95 L Hgb 7.4 L Hct 23.0 L MCV 78 L MCH 25 L RDW 18.7 H Plt Count [place] % (Auto) 11.4 H [place] # 1.7 H Baso # Seg Neutrophils % 72.5 H Seg Neutrophils # 10.5 H D-Dimer Sodium 127 L Chloride 97.1 L Carbon Dioxide 17 L BUN 48 H Creatinine 2.8 H Glucose 117 H POC Glucose 148 H Calcium 8.1 L Phosphorus Magnesium Total Creatine Kinase CK-MB (CK-2) Rel Index Albumin Urine Creatinine 02/13/19 02/13/19 02/13/19 07:39 12:06 16:06 WBC RBC Hgb Hct MCV MCH RDW Plt Count [place] % (Auto) [place] # Baso # Seg Neutrophils % Seg Neutrophils # D-Dimer Sodium 132 L Chloride Carbon Dioxide 19 L BUN 49 H Creatinine 2.8 H Glucose 221 H POC Glucose 122 H 131 H Calcium 8.2 L Phosphorus Magnesium Total Creatine Kinase CK-MB (CK-2) Rel Index Albumin Urine Creatinine 02/13/19 02/13/19 02/13/19 16:46 18:00 21:05 WBC RBC Hgb Hct MCV MCH RDW Plt Count [place] % (Auto) [place] # Baso # Seg Neutrophils % Seg Neutrophils # D-Dimer Sodium Chloride Carbon Dioxide BUN Creatinine Glucose POC Glucose 213 H 137 H Calcium Phosphorus Magnesium Total Creatine Kinase CK-MB (CK-2) Rel Index Albumin Urine Creatinine 62.9 H 02/14/19 02/14/19 02/14/19 04:09 07:46 11:22 WBC RBC Hgb Hct MCV MCH RDW Plt Count [place] % (Auto) [place] # Baso # Seg Neutrophils % Seg Neutrophils # D-Dimer Sodium 132 L Chloride Carbon Dioxide 18 L BUN 47 H Creatinine 2.8 H Glucose POC Glucose 115 H 135 H Calcium 8.2 L Phosphorus 4.70 H Magnesium 1.60 L Total Creatine Kinase CK-MB (CK-2) Rel Index Albumin 2.3 L Urine Creatinine 02/14/19 02/14/19 02/15/19 16:46 21:44 06:30 WBC RBC Hgb Hct MCV MCH RDW Plt Count [place] % (Auto) [place] # Baso # Seg Neutrophils % Seg Neutrophils # D-Dimer Sodium 133 L Chloride Carbon Dioxide 18 L BUN 48 H Creatinine 2.8 H Glucose 113 H POC Glucose 155 H 188 H Calcium Phosphorus Magnesium Total Creatine Kinase CK-MB (CK-2) Rel Index Albumin Urine Creatinine 02/15/19 02/15/19 06:30 08:23 WBC 11.5 H RBC 3.09 L Hgb 7.8 L Hct 24.2 L MCV 78 L MCH 25 L RDW 18.9 H Plt Count 514 H [place] % (Auto) 10.6 H [place] # 1.2 H Baso # Seg Neutrophils % Seg Neutrophils # 7.8 H D-Dimer Sodium Chloride Carbon Dioxide BUN Creatinine Glucose POC Glucose 113 H Calcium Phosphorus Magnesium Total Creatine Kinase CK-MB (CK-2) Rel Index Albumin Urine Creatinine
--- NOTE | 2019-02-15 12:40 | Progress Note ---
Assessment and Plan Cultures: 02/09 blood cultures - NGTD 02/09/2019 MRSA nasal: negative 02/11/2019 Bronch BAL: culture with normal resp ilda. AFB smear negative. Fungal stain negative. A/P: 73 yo F PMHx DM2, HLD admitted with hemoptysis and found to have cavitating lung lesion. 1. Cavitating left lung lesion - infection v/s malignancy. S/P bronch by Dr. Carey on 02/11/2019. Given the unintentional weight loss and smoking history, cancer is high on the differential. Fungal pneumonia also possible. Other bacterial causes to consider: Nocardia, and Actinomyces given poor dentition. NTM disease possible too. BAL cytology unrevealing for malignancy or acute inflammation. 2. DM2 - encourage tight glycemic control 3. HLD 4. NEELIMA on CKD: renally dose abx. Recs: Creatinine worsening Bronch AFB smear is negative, so can d/c airborne precautions, discussed with RN BAL cytology unrevealing for malignancy or acute inflammation Will start empiric IV Ceftriaxone and Flagyl, anticipate discharge on PO abx Outpatient follow up with pulmonary and ID clinics to follow up on cultures and plan for future course Follow up Quantiferon (does not rule out active disease) Do Tucker MD, FACP [facility] ([facility] M: [phone] O: [phone] F: [phone] Subjective Date of service: 02/15/19 Principal diagnosis: lung mass s/p bronch Interval history: No fever. Sitting in bed, denies any complaints. Not much cough. Has mild sob. Objective - Exam Narrative Exam: Physical Exam: Constitutional: Alert, cooperative. No acute distress Head, Ears, Nose: Normocephalic, atraumatic. External ears, nose normal Eyes: Conjunctivae/corneas clear. No icterus. No ptosis. Neck: Supple, no meningeal signs Oral: poor dentition, no thrush Cardiovascular: S1, S2 normal. Respiratory: b/l rhonchi. GI: Soft, non-tender; bowel sounds normal. No peritoneal signs Musculoskeletal: No pedal edema, no cyanosis. Skin: No rash or abscess Hem/Lymphatic: No palpable cervical or supraclavicular nodes. No lymphangitis Psych: Mood ok. Affect normal Neurological: Awake, alert, oriented. No gross abnormality - Constitutional Vitals: Vital Signs Temp Pulse Resp BP Pulse Ox 97.0 F L 68 20 147/58 98 02/15/19 04:55 02/15/19 10:50 02/15/19 10:50 02/15/19 06:09 02/15/19 07:45 Temperature -Last 24 Hours Temperature 97.0 F Temperature 97.0 F Temperature 98.5 F - Labs CBC & Chem 7: 02/15/19 06:30 02/15/19 06:30 Labs: Abnormal lab results 02/13/19 02/14/19 02/14/19 Range/Units 18:00 16:46 21:44 WBC (4.5-11.0) K/mm3 RBC (3.65-5.03) M/mm3 Hgb (10.1-14.3) gm/dl Hct (30.3-42.9) % MCV (79-97) fl MCH (28-32) pg RDW (13.2-15.2) % Plt Count (140-440) K/mm3 [place] % (Auto) (0.0-7.3) % [place] # (0.0-0.8) K/mm3 Seg Neutrophils # (1.8-7.7) K/mm3 Sodium (137-145) mmol/L Carbon Dioxide (22-30) mmol/L BUN (7-17) mg/dL Creatinine (0.7-1.2) mg/dL Glucose (65-100) mg/dL POC Glucose 155 H 188 H (70-105) Urine Creatinine 62.9 H (0.1-20.0) mg/dL 02/15/19 02/15/19 02/15/19 Range/Units 06:30 06:30 08:23 WBC 11.5 H (4.5-11.0) K/mm3 RBC 3.09 L (3.65-5.03) M/mm3 Hgb 7.8 L (10.1-14.3) gm/dl Hct 24.2 L (30.3-42.9) % MCV 78 L (79-97) fl MCH 25 L (28-32) pg RDW 18.9 H (13.2-15.2) % Plt Count 514 H (140-440) K/mm3 [place] % (Auto) 10.6 H (0.0-7.3) % [place] # 1.2 H (0.0-0.8) K/mm3 Seg Neutrophils # 7.8 H (1.8-7.7) K/mm3 Sodium 133 L (137-145) mmol/L Carbon Dioxide 18 L (22-30) mmol/L BUN 48 H (7-17) mg/dL Creatinine 2.8 H (0.7-1.2) mg/dL Glucose 113 H (65-100) mg/dL POC Glucose 113 H (70-105) Urine Creatinine (0.1-20.0) mg/dL 02/15/19 Range/Units 11:38 WBC (4.5-11.0) K/mm3 RBC (3.65-5.03) M/mm3 Hgb (10.1-14.3) gm/dl Hct (30.3-42.9) % MCV (79-97) fl MCH (28-32) pg RDW (13.2-15.2) % Plt Count (140-440) K/mm3 [place] % (Auto) (0.0-7.3) % [place] # (0.0-0.8) K/mm3 Seg Neutrophils # (1.8-7.7) K/mm3 Sodium (137-145) mmol/L Carbon Dioxide (22-30) mmol/L BUN (7-17) mg/dL Creatinine (0.7-1.2) mg/dL Glucose (65-100) mg/dL POC Glucose 189 H (70-105) Urine Creatinine (0.1-20.0) mg/dL - Imaging and cardiology Chest x-ray: report reviewed, image reviewed (extensive left sided opacity)
--- NOTE | 2019-02-15 12:56 | Progress Note ---
Assessment and Plan 1. Acute kidney injury: NEELIMA in the setting of IV contrast and volume depletion. Renal US negative for hydro. UA is bland. Creatinine leveled off. Monitor renal function. Renal prognosis is guarded. Avoid nephrotoxic agents. Meds dosage based on GFR. 2. FEN: Hyponatremia, 2/2 HCTZ. Sodium level is better. Metabolic acidosis, continue sodium bicarbonate Monitor lytes. 3. Left UL cavitating lung lesion: Followed by Pulmonary and ID. 4. H/o CAD. 5. DM-2. 6. Hypertension: Monitor BP. 7. Anemia: POA. Examination: General appearance: well-developed, well-nourished, appears stated age, no distress HEENT: ATNC, PERRL, mucous membranes dry, hearing intact, vision intact Neck: neck supple, trachea midline Respiratory: Wheezes Heart: regular, S1S2, no murmur Gastrointestinal: normoactive bowel sounds, not tender, not distended Integumentary: no rash, warm and dry Neurologic: no focal deficit, no asterixis, confused Ext: no edema Psychiatric: cooperative Subjective Date of service: 02/15/19 Principal diagnosis: lung mass s/p bronch Interval history: Patient was seen and examined at the bedside. Doing ok. Objective - Vital Signs Vital signs: Vital Signs - 12hr 02/15/19 02/15/19 02/15/19 04:55 06:09 07:44 Temperature 97.0 F L Pulse Rate 87 87 Pulse Rate [ Posterior Bilateral Throughout] Respiratory 16 Rate Respiratory Rate [Posterior Bilateral Throughout] Blood Pressure 147/58 147/58 O2 Sat by Pulse 96 98 Oximetry 02/15/19 02/15/19 02/15/19 07:45 10:50 12:43 Temperature 98.7 F Pulse Rate 79 Pulse Rate [ 68 Posterior Bilateral Throughout] Respiratory 18 Rate Respiratory 20 Rate [Posterior Bilateral Throughout] Blood Pressure 131/57 O2 Sat by Pulse 98 100 Oximetry - Lab 02/15/19 06:30 02/15/19 06:30 Most recent lab results Calcium 8.4 mg/dL (8.4-10.2) 02/15/19 06:30 Phosphorus 4.70 mg/dL (2.5-4.5) H 02/14/19 04:09 Magnesium 2.10 mg/dL (1.7-2.3) 02/15/19 06:30 Urine Creatinine 62.9 mg/dL (0.1-20.0) H 02/13/19 18:00 Urine Sodium 69 mmol/L 02/13/19 18:00 Medications & Allergies - Medications Allergies/Adverse Reactions: Allergies ibuprofen Allergy (Verified 02/08/19 18:37) Unknown Penicillins Allergy (Verified 02/08/19 18:37) Unknown Home Medications: Home Medications Medication Instructions Recorded Confirmed Last Taken Type Glipizide/Metformin HCl 1 each PO DAILY 12/24/18 02/09/19 Unknown History [glipiZIDE-Metformin 2.5-500 mg] Allopurinol 100 mg PO DAILY 12/26/18 02/09/19 Unknown History Aspirin 325 mg PO DAILY 12/26/18 02/09/19 Unknown History Cilostazol 100 mg PO BID 12/26/18 02/09/19 Unknown History Ferrous Sulfate 325 mg PO DAILY 12/26/18 02/09/19 Unknown History Furosemide 40 mg PO DAILY 12/26/18 02/09/19 Unknown History HCTZ 12.5 mg PO DAILY 12/26/18 02/09/19 Unknown History Losartan 100 mg PO DAILY 12/26/18 02/09/19 Unknown History Metoprolol Tartrate 50 mg PO BID #60 12/29/18 02/09/19 Unknown Rx Ipratropium (Nf) [Atrovent] 2 puff IH Q6HR PRN #1 inha 01/11/19 02/09/19 Unknown Rx Acetaminophen/Codeine [Tylenol 1 tab PO Q6H PRN #12 tab 01/21/19 02/09/19 Unknown Rx /Codeine # 3 tab] AtorvaSTATin [Lipitor] 40 mg PO QHS 02/09/19 02/09/19 Unknown History raNITIdine HCl [Zantac] 1 tab PO BID 02/09/19 02/09/19 Unknown History Active Medications: Generic Name Dose Route Start Last Admin Trade Name Freq PRN Reason Stop Dose Admin Acetaminophen 650 mg 02/09/19 05:41 02/14/19 11:54 Tylenol PO 650 mg Q4H PRN Administration Pain MILD(1-3)/Fever >100.5/BRENNER Acetaminophen/Codeine Phosphate 1 tab 02/09/19 10:25 02/13/19 06:46 Tylenol #3 PO 1 tab Q6H PRN Administration Pain, Moderate (4-6) Albuterol 2.5 mg 02/15/19 07:48 02/15/19 10:35 Proventil IH 2.5 mg TIDRT PRN Administration Shortness Of Breath Allopurinol 100 mg 02/09/19 12:00 02/15/19 10:21 Zyloprim PO 100 mg QDAY MAYLIN Administration Atorvastatin Calcium 40 mg 02/09/19 22:00 02/14/19 21:06 Lipitor PO 40 mg QHS MAYLIN Administration Cilostazol 100 mg 02/09/19 12:00 02/15/19 10:21 Pletal PO 100 mg BID MAYLIN Administration Dextrose 50 ml 02/09/19 06:53 D50w (25gm) Syringe IV Q30MIN PRN Hypoglycemia Hydralazine HCl 25 mg 02/12/19 08:45 02/15/19 06:09 Apresoline PO 25 mg Q8HR MAYLIN Administration Hydralazine HCl 10 mg 02/12/19 08:39 Apresoline IV Q4HR PRN Hypertension Ceftriaxone Sodium 1 gm in 50 mls @ 100 mls/hr 02/15/19 13:00 Rocephin/Ns 1 Gm/50 Ml IV Q24HR [facility] Protocol Metronidazole 500 mg in 100 mls @ 100 mls/hr 02/15/19 14:00 Flagyl 500 Mg/100 Ml IV Q8HR [facility] Protocol Insulin Human Lispro 0 unit 02/09/19 12:54 02/15/19 10:20 Humalog SUB-Q Not Given ACHS [facility] Protocol Magnesium Oxide 400 mg 02/14/19 10:00 02/15/19 10:21 Mag-Ox PO 400 mg QDAY MAYLIN Administration Metoprolol Tartrate 50 mg 02/13/19 12:00 02/15/19 10:21 Metoprolol PO 50 mg BID MAYLIN Administration Ondansetron HCl 4 mg 02/09/19 05:41 02/10/19 22:05 Zofran IV 4 mg Q8H PRN Administration Nausea And Vomiting Pantoprazole Sodium 40 mg 02/12/19 17:00 02/15/19 10:21 Protonix PO 40 mg QDAY MAYLIN Administration Sodium Bicarbonate 650 mg 02/13/19 14:00 02/15/19 10:21 Sodium Bicarbonate PO 650 mg TID MAYLIN Administration Sodium Chloride 10 ml 02/09/19 10:00 02/15/19 10:21 Sodium Chloride Flush Syringe 10 Ml IV 10 ml BID MAYLIN Administration Sodium Chloride 10 ml 02/09/19 05:41 Sodium Chloride Flush Syringe 10 Ml IV PRN PRN LINE FLUSH
[2019-02-15] MEDS: metroNIDAZOLE/NS 500 MG/100 ML 500 MG/100 ML BAG IV SCH ×2 (13:47→22:08)
[2019-02-15] MEDS: cefTRIAXone/NS 1 GM/50 ML 1 GM/50 ML BAG IV SCH (16:47)
--- NOTE | 2019-02-15 17:25 | Progress Note ---
Assessment and Plan Assessment and plan: 73-year-old female patient with significant past medical history of hypertension coronary artery disease was admitted through emergency room with productive cough initial evaluation with chest x-ray and CT is consistent with left-sided cavitary reason/abscess, patient was evaluated both by ID and pulmonary, medications optimized, pulmonary scheduled endoscopy status post biopsy and bronchial lavage test Patient also had AFB smears 1 is negative fungal smear 1 is negative --Left cavitary lesion; possible lung mass s/p bronchoscopy, f/u cytology,brushings sent Negative for AFB stain, Negative for fungi by stain Rule out tuberculosis, f/u AFB smear and cultures Pulmonary following, Airborne isolation --SIRS with organ dysfunction --Severe hyponatremia; significantly Improved DC IV fluids , IV Lasix one dose , monitor electrolytes Nephrology following --Acute kidney injury; vasomotor nephropathy monitor renal function, avoid nephrotoxins Nephrology following renal ultrasound renal cysts Pleural effusion --Type 2 diabetes mellitus; Accu-Chek sliding scale coverage ADA diet, insulin as needed --Hypertension; moderate control Continue current antihypertensives and as needed medications --Severe Malnutrition/hypoalbuminemia; Nutrition consult --Dyslipidemia; continue statin --DVT prophylaxis; Lovenox Airborne isolation Monitor closely and adjust management as needed Disposition; follow pulmonary and ID evaluation and recommendations Discharge when medically stable History Interval history: Patient seen and examined medical records reviewed Patient feels slightly better still has shortness of breath Vital signs reviewed Hospitalist Physical - Constitutional Vitals: Temp Pulse Resp BP Pulse Ox 98.7 F 79 18 131/57 100 02/15/19 12:43 02/15/19 12:43 02/15/19 12:43 02/15/19 12:43 02/15/19 12:43 General appearance: Present: no acute distress, well-nourished - EENT Eyes: Present: PERRL, EOM intact - Neck Neck: Present: supple, normal ROM - Respiratory Respiratory effort: normal Respiratory: left: rhonchi, bilateral: diminished, negative: rales, wheezing - Cardiovascular Rhythm: regular Heart Sounds: Present: S1 & S2 - Extremities Extremities: no ischemia, No edema - Abdominal General gastrointestinal: soft, non-tender, non-distended, normal bowel sounds - Integumentary Integumentary: Present: clear, warm - Psychiatric Psychiatric: appropriate mood/affect, cooperative - Neurologic Neurologic: CNII-XII intact, moves all extremities Results - Labs CBC & Chem 7: 02/15/19 06:30 02/15/19 06:30 Labs: Laboratory Last Values WBC 11.5 K/mm3 (4.5-11.0) H 02/15/19 06:30 RBC 3.09 M/mm3 (3.65-5.03) L 02/15/19 06:30 Hgb 7.8 gm/dl (10.1-14.3) L 02/15/19 06:30 Hct 24.2 % (30.3-42.9) L 02/15/19 06:30 MCV 78 fl (79-97) L 02/15/19 06:30 MCH 25 pg (28-32) L 02/15/19 06:30 MCHC 32 % (30-34) 02/15/19 06:30 RDW 18.9 % (13.2-15.2) H 02/15/19 06:30 Plt Count 514 K/mm3 (140-440) H 02/15/19 06:30 Lymph % (Auto) 17.9 % (13.4-35.0) 02/15/19 06:30 [place] % (Auto) 10.6 % (0.0-7.3) H 02/15/19 06:30 Eos % (Auto) 2.2 % (0.0-4.3) 02/15/19 06:30 Baso % (Auto) 1.1 % (0.0-1.8) 02/15/19 06:30 Lymph # 2.1 K/mm3 (1.2-5.4) 02/15/19 06:30 [place] # 1.2 K/mm3 (0.0-0.8) H 02/15/19 06:30 Eos # 0.3 K/mm3 (0.0-0.4) 02/15/19 06:30 Baso # 0.1 K/mm3 (0.0-0.1) 02/15/19 06:30 Seg Neutrophils % 68.2 % (40.0-70.0) 02/15/19 06:30 Seg Neutrophils # 7.8 K/mm3 (1.8-7.7) H 02/15/19 06:30 PT 13.7 Sec. (12.2-14.9) 02/08/19 21:33 INR 1.06 (0.87-1.13) 02/08/19 21:33 APTT 32.8 Sec. (24.2-36.6) 02/08/19 21:33 D-Dimer 640.67 ng/mlDDU (0-234) H 02/08/19 21:33 Sodium 133 mmol/L (137-145) L 02/15/19 06:30 Potassium 4.4 mmol/L (3.6-5.0) 02/15/19 06:30 Chloride 102.7 mmol/L (98-107) 02/15/19 06:30 Carbon Dioxide 18 mmol/L (22-30) L 02/15/19 06:30 Anion Gap 17 mmol/L 02/15/19 06:30 BUN 48 mg/dL (7-17) H 02/15/19 06:30 Creatinine 2.8 mg/dL (0.7-1.2) H 02/15/19 06:30 Estimated GFR 20 ml/min 02/15/19 06:30 BUN/Creatinine Ratio 17 % 02/15/19 06:30 Glucose 113 mg/dL (65-100) H 02/15/19 06:30 POC Glucose 189 (70-105) H 02/15/19 11:38 Lactic Acid 1.30 mmol/L (0.7-2.0) 02/08/19 21:33 Calcium 8.4 mg/dL (8.4-10.2) 02/15/19 06:30 Phosphorus 4.70 mg/dL (2.5-4.5) H 02/14/19 04:09 Magnesium 2.10 mg/dL (1.7-2.3) 02/15/19 06:30 Total Bilirubin 0.20 mg/dL (0.1-1.2) 02/14/19 04:09 AST 18 units/L (5-40) 02/14/19 04:09 ALT 7 units/L (7-56) 02/14/19 04:09 Alkaline Phosphatase 78 units/L (35-129) 02/14/19 04:09 Total Creatine Kinase 27 units/L (30-135) L 02/08/19 21:33 CK-MB (CK-2) 1.8 ng/mL (0.0-4.0) 02/08/19 21:33 CK-MB (CK-2) Rel Index 6.6 (0-4) H 02/08/19 21:33 Troponin T < 0.010 ng/mL (0.00-0.029) 02/08/19 21:33 Total Protein 6.9 g/dL (6.3-8.2) 02/14/19 04:09 Albumin 2.3 g/dL (3.9-5) L 02/14/19 04:09 Albumin/Globulin Ratio 0.5 % 02/14/19 04:09 Lipase 22 units/L (13-60) 02/08/19 21:33 Urine Color Yellow (Yellow) 02/13/19 18:00 Urine Turbidity Clear (Clear) 02/13/19 18:00 Urine pH 5.0 (5.0-7.0) 02/13/19 18:00 Ur Specific [place] 1.009 (1.003-1.030) 02/13/19 18:00 Urine Protein <15 mg/dl mg/dL (Negative) 02/13/19 18:00 Urine Glucose (UA) Neg mg/dL (Negative) 02/13/19 18:00 Urine Ketones Neg mg/dL (Negative) 02/13/19 18:00 Urine Blood Neg (Negative) 02/13/19 18:00 Urine Nitrite Neg (Negative) 02/13/19 18:00 Urine Bilirubin Neg (Negative) 02/13/19 18:00 Urine Urobilinogen < 2.0 mg/dL (<2.0) 02/13/19 18:00 Ur Leukocyte Esterase Neg (Negative) 02/13/19 18:00 Urine WBC (Auto) 1.0 /HPF (0.0-6.0) 02/13/19 18:00 Urine RBC (Auto) 1.0 /HPF (0.0-6.0) 02/13/19 18:00 U Epithel Cells (Auto) < 1.0 /HPF (0-13.0) 02/13/19 18:00 Hyaline Casts 4 /LPF 02/13/19 18:00 Urine Mucus Few /HPF 02/13/19 18:00 Urine Eosinophils None seen (None Seen) 02/13/19 18:00 Urine Creatinine 62.9 mg/dL (0.1-20.0) H 02/13/19 18:00 Urine Sodium 69 mmol/L 02/13/19 18:00 AFB Identification 02/11/19 Unknown Fungal Id Prelim 02/11/19 Unknown Thin Pap Review [employer] 02/11/19 Unknown Miscellaneous Test Flexitest 1 02/10/19 14:50 Active Medications - Current Medications Current Medications: Generic Name Dose Route Start Last Admin Trade Name Freq PRN Reason Stop Dose Admin Acetaminophen 650 mg 02/09/19 05:41 02/14/19 11:54 Tylenol PO 650 mg Q4H PRN Administration Pain MILD(1-3)/Fever >100.5/BRENNER Acetaminophen/Codeine Phosphate 1 tab 02/09/19 10:25 02/13/19 06:46 Tylenol #3 PO 1 tab Q6H PRN Administration Pain, Moderate (4-6) Albuterol 2.5 mg 02/15/19 07:48 02/15/19 10:35 Proventil IH 2.5 mg TIDRT PRN Administration Shortness Of Breath Allopurinol 100 mg 02/09/19 12:00 02/15/19 10:21 Zyloprim PO 100 mg QDAY MAYLIN Administration Atorvastatin Calcium 40 mg 02/09/19 22:00 02/14/19 21:06 Lipitor PO 40 mg QHS MAYLIN Administration Cilostazol 100 mg 02/09/19 12:00 02/15/19 10:21 Pletal PO 100 mg BID MAYLIN Administration Dextrose 50 ml 02/09/19 06:53 D50w (25gm) Syringe IV Q30MIN PRN Hypoglycemia Hydralazine HCl 25 mg 02/12/19 08:45 02/15/19 13:47 Apresoline PO 25 mg Q8HR MAYLIN Administration Hydralazine HCl 10 mg 02/12/19 08:39 Apresoline IV Q4HR PRN Hypertension Ceftriaxone Sodium 1 gm in 50 mls @ 100 mls/hr 02/15/19 14:00 02/15/19 16:47 Rocephin/Ns 1 Gm/50 Ml IV 100 mls/hr Q24HR MAYLIN Administration Protocol Metronidazole 500 mg in 100 mls @ 100 mls/hr 02/15/19 14:00 02/15/19 13:47 Flagyl 500 Mg/100 Ml IV 100 mls/hr Q8HR MAYLIN Administration Protocol Insulin Human Lispro 0 unit 02/09/19 12:54 02/15/19 13:48 Humalog SUB-Q 2 unit ACHS MAYLIN Administration Protocol Magnesium Oxide 400 mg 02/14/19 10:00 02/15/19 10:21 Mag-Ox PO 400 mg QDAY MAYLIN Administration Metoprolol Tartrate 50 mg 02/13/19 12:00 02/15/19 10:21 Metoprolol PO 50 mg BID MAYLIN Administration Ondansetron HCl 4 mg 02/09/19 05:41 02/10/19 22:05 Zofran IV 4 mg Q8H PRN Administration Nausea And Vomiting Pantoprazole Sodium 40 mg 02/12/19 17:00 02/15/19 10:21 Protonix PO 40 mg QDAY MAYLIN Administration Sodium Bicarbonate 650 mg 02/13/19 14:00 02/15/19 13:47 Sodium Bicarbonate PO 650 mg TID MAYLIN Administration Sodium Chloride 10 ml 02/09/19 10:00 02/15/19 10:21 Sodium Chloride Flush Syringe 10 Ml IV 10 ml BID MAYLIN Administration Sodium Chloride 10 ml 02/09/19 05:41 Sodium Chloride Flush Syringe 10 Ml IV PRN PRN LINE FLUSH Nutrition/Malnutrition Assess - Dietary Evaluation Nutrition/Malnutrition Findings: Nutrition Notes Start: 02/14/19 13:42 Freq: Status: Active Protocol: Document 02/14/19 13:42 RM (Rec: 02/14/19 13:48 RM [id number]) Nutrition Notes Need for Assessment generated from: MD Order Initial or Follow up Brief Note Current Diagnosis Acute Kidney Injury,Coronary Artery Disease,Diabetes, Hypertension Other Pertinent Diagnosis TB Current Diet Cardiac/Consistent CHO Labs/Tests Reviewed Pertinent Medications Zofran Height 5 ft 3 in Weight 66.5 kg Usual Body Weight 64.09 kg [place] Body Weight (kg) 52.27 BMI 25.9 Subjective/Other Information Consulted for malnutrition. Pt and pt daughter in room at time of visit. Pt daughter answered most of the questions . Pt daughter stated that [employer] pt 2-3 meals daily. Stated that pt eats either all of her meals here or bites depending on whether she likes them. Note preferences. Stated pt UBW was 141 lbs January 06. No physical signs of malnutrition. Burn Absent Trauma Absent Minimum of two criteria No Nutrition Intervention Follow-Up By: 02/16/19 Additional Comments Follow for adequate intakes
[2019-02-15] MEDS: ACETAMINOPHEN 325 MG TAB PO PRN (22:15)
[2019-02-16] MEDS: hydrALAZINE 25 MG TAB PO SCH (06:25)
[2019-02-16] MEDS: metroNIDAZOLE/NS 500 MG/100 ML 500 MG/100 ML BAG IV SCH (06:25)
[2019-02-16] MEDS: ACETAMINOPHEN W/CODEINE 300-30 MG TAB PO PRN (06:41)
[2019-02-16 07:34] LABS: Basophils # (Auto) 0.1 K/mm3 (0.0-0.1); Basophils % (Auto) 0.7 % (0.0-1.8); Eosinophils # (Auto) 0.3 K/mm3 (0.0-0.4); Eosinophils % (Auto) 2.5 % (0.0-4.3); Hematocrit 22.1 % (30.3-42.9); Hemoglobin 7.3 gm/dl (10.1-14.3); Lymphocytes % (Auto) 16.7 % (13.4-35.0); Mean Corpuscular HGB Conc 33 % (30-34); Mean Corpuscular Volume 78 fl (79-97); Monocytes # (Auto) 1.6 K/mm3 (0.0-0.8); Monocytes % (Auto) 13.6 % (0.0-7.3); Platelet Count 481 K/mm3 (140-440); Red Blood Count 2.84 M/mm3 (3.65-5.03)
[2019-02-16 07:56] LABS: Calcium 8.1 mg/dL (8.4-10.2)
[2019-02-16] MEDS: INSULIN LISPRO 100 UNIT/ML SUB-Q SCH ×2 (08:02→14:44)
[2019-02-16] MEDS: CILOSTAZOL 100 MG TAB PO SCH (10:33)
[2019-02-16] MEDS: SODIUM BICARBONATE 650 MG TAB PO SCH (10:33)
[2019-02-16] MEDS: MAGNESIUM OXIDE 400 MG TAB PO SCH (10:34)
[2019-02-16] MEDS: METOPROLOL TARTRATE 50 MG TAB PO SCH (10:34)
[2019-02-16] MEDS: allopurinoL 100 MG TAB PO SCH (10:34)
[2019-02-16] MEDS: PANTOPRAZOLE 40 MG TAB PO SCH (10:34)
[2019-02-16] MEDS: cefTRIAXone/NS 1 GM/50 ML 1 GM/50 ML BAG IV SCH (10:36)
--- NOTE | 2019-02-16 11:58 | Progress Note ---
Assessment and Plan 73 y/o female with abnormal CXR/CT scan concern for infection vs malignancy with renal failure. No new recs for today. 1. Discussed with daughter. Will treat as infection for time frame that ID sees fit. Will follow up in my office and repeat imaging (start with CXR). Will then consider repeat bronch to make sure that mucosa is improving. Still very concerned that this could be malignancy. 2. Follow up renal recs. 3. Follow up ID recs Subjective Date of service: 02/16/19 Principal diagnosis: lung mass s/p bronch Interval history: Weaned to room air Objective Vital Signs - 12hr 02/16/19 02/16/19 02/16/19 06:25 06:27 10:00 Temperature 98.6 F Pulse Rate 86 85 Respiratory 20 Rate Blood Pressure 158/89 158/59 O2 Sat by Pulse 95 94 Oximetry 02/16/19 10:34 Temperature Pulse Rate 94 H Respiratory Rate Blood Pressure 133/54 O2 Sat by Pulse Oximetry Constitutional: no acute distress, alert Eyes: non-icteric ENT: oropharynx moist, other (poor dentition) Neck: supple, no JVD Effort: normal Ascultation: Right: clear, Left: diminished breath sounds (upper lobe), Bilateral: wheezes (mild) Percussion: Bilateral: not dull Cardiovascular: regular rate and rhythm Gastrointestinal: normoactive bowel sounds, soft, non-tender Extremities: no edema, pink and warm, pulses normal Neurologic: normal mental status CBC and BMP: 02/16/19 06:56 02/16/19 06:56 ABG, PT/INR, D-dimer: PT/INR, D-dimer PT 13.7 Sec. (12.2-14.9) 02/08/19 21:33 INR 1.06 (0.87-1.13) 02/08/19 21:33 D-Dimer 640.67 ng/mlDDU (0-234) H 02/08/19 21:33 Abnormal lab findings: Abnormal Labs 02/08/19 02/08/19 02/08/19 21:33 21:33 21:33 WBC 16.5 H RBC 3.38 L Hgb 8.8 L Hct 26.7 L MCV MCH 26 L RDW 18.5 H Plt Count 563 H Mclean % (Auto) 10.5 H Mclean # 1.7 H Baso # 0.2 H Seg Neutrophils % Seg Neutrophils # 11.5 H D-Dimer 640.67 H Sodium 131 L Chloride 92.4 L Carbon Dioxide BUN 51 H Creatinine 1.9 H Glucose 193 H POC Glucose Calcium Phosphorus Magnesium Total Creatine Kinase 27 L CK-MB (CK-2) Rel Index 6.6 H Albumin Urine Creatinine 02/09/19 02/09/19 02/09/19 11:04 16:18 21:59 WBC RBC Hgb Hct MCV MCH RDW Plt Count Mclean % (Auto) Mclean # Baso # Seg Neutrophils % Seg Neutrophils # D-Dimer Sodium Chloride Carbon Dioxide BUN Creatinine Glucose POC Glucose 203 H 120 H 138 H Calcium Phosphorus Magnesium Total Creatine Kinase CK-MB (CK-2) Rel Index Albumin Urine Creatinine 02/10/19 02/10/19 02/10/19 05:44 05:44 08:09 WBC 13.2 H RBC 3.00 L Hgb 7.5 L Hct 23.6 L MCV MCH 25 L RDW 19.5 H Plt Count 454 H Mclean % (Auto) 11.1 H Mclean # 1.5 H Baso # Seg Neutrophils % 72.0 H Seg Neutrophils # 9.5 H D-Dimer Sodium 132 L Chloride 95.3 L Carbon Dioxide 21 L BUN 49 H Creatinine 2.0 H Glucose 124 H POC Glucose 139 H Calcium Phosphorus Magnesium Total Creatine Kinase CK-MB (CK-2) Rel Index Albumin Urine Creatinine 02/10/19 02/10/19 02/10/19 12:39 16:20 21:19 WBC RBC Hgb Hct MCV MCH RDW Plt Count Mclean % (Auto) Mclean # Baso # Seg Neutrophils % Seg Neutrophils # D-Dimer Sodium Chloride Carbon Dioxide BUN Creatinine Glucose POC Glucose 197 H 158 H 165 H Calcium Phosphorus Magnesium Total Creatine Kinase CK-MB (CK-2) Rel Index Albumin Urine Creatinine 02/11/19 02/11/19 02/11/19 08:06 13:26 17:23 WBC RBC Hgb Hct MCV MCH RDW Plt Count Mclean % (Auto) Mclean # Baso # Seg Neutrophils % Seg Neutrophils # D-Dimer Sodium Chloride Carbon Dioxide BUN Creatinine Glucose POC Glucose 116 H 174 H 220 H Calcium Phosphorus Magnesium Total Creatine Kinase CK-MB (CK-2) Rel Index Albumin Urine Creatinine 02/11/19 02/12/19 02/12/19 21:33 11:40 17:40 WBC RBC Hgb Hct MCV MCH RDW Plt Count Mclean % (Auto) Mclean # Baso # Seg Neutrophils % Seg Neutrophils # D-Dimer Sodium Chloride Carbon Dioxide BUN Creatinine Glucose POC Glucose 140 H 166 H 231 H Calcium Phosphorus Magnesium Total Creatine Kinase CK-MB (CK-2) Rel Index Albumin Urine Creatinine 02/12/19 02/13/19 02/13/19 21:07 05:08 05:08 WBC 14.5 H RBC 2.95 L Hgb 7.4 L Hct 23.0 L MCV 78 L MCH 25 L RDW 18.7 H Plt Count Mclean % (Auto) 11.4 H Mclean # 1.7 H Baso # Seg Neutrophils % 72.5 H Seg Neutrophils # 10.5 H D-Dimer Sodium 127 L Chloride 97.1 L Carbon Dioxide 17 L BUN 48 H Creatinine 2.8 H Glucose 117 H POC Glucose 148 H Calcium 8.1 L Phosphorus Magnesium Total Creatine Kinase CK-MB (CK-2) Rel Index Albumin Urine Creatinine 02/13/19 02/13/19 02/13/19 07:39 12:06 16:06 WBC RBC Hgb Hct MCV MCH RDW Plt Count Mclean % (Auto) Mclean # Baso # Seg Neutrophils % Seg Neutrophils # D-Dimer Sodium 132 L Chloride Carbon Dioxide 19 L BUN 49 H Creatinine 2.8 H Glucose 221 H POC Glucose 122 H 131 H Calcium 8.2 L Phosphorus Magnesium Total Creatine Kinase CK-MB (CK-2) Rel Index Albumin Urine Creatinine 02/13/19 02/13/19 02/13/19 16:46 18:00 21:05 WBC RBC Hgb Hct MCV MCH RDW Plt Count Mclean % (Auto) Mclean # Baso # Seg Neutrophils % Seg Neutrophils # D-Dimer Sodium Chloride Carbon Dioxide BUN Creatinine Glucose POC Glucose 213 H 137 H Calcium Phosphorus Magnesium Total Creatine Kinase CK-MB (CK-2) Rel Index Albumin Urine Creatinine 62.9 H 02/14/19 02/14/19 02/14/19 04:09 07:46 11:22 WBC RBC Hgb Hct MCV MCH RDW Plt Count Mclean % (Auto) Mclean # Baso # Seg Neutrophils % Seg Neutrophils # D-Dimer Sodium 132 L Chloride Carbon Dioxide 18 L BUN 47 H Creatinine 2.8 H Glucose POC Glucose 115 H 135 H Calcium 8.2 L Phosphorus 4.70 H Magnesium 1.60 L Total Creatine Kinase CK-MB (CK-2) Rel Index Albumin 2.3 L Urine Creatinine 02/14/19 02/14/19 02/15/19 16:46 21:44 06:30 WBC RBC Hgb Hct MCV MCH RDW Plt Count Mclean % (Auto) Mclean # Baso # Seg Neutrophils % Seg Neutrophils # D-Dimer Sodium 133 L Chloride Carbon Dioxide 18 L BUN 48 H Creatinine 2.8 H Glucose 113 H POC Glucose 155 H 188 H Calcium Phosphorus Magnesium Total Creatine Kinase CK-MB (CK-2) Rel Index Albumin Urine Creatinine 02/15/19 02/15/19 02/15/19 06:30 08:23 11:38 WBC 11.5 H RBC 3.09 L Hgb 7.8 L Hct 24.2 L MCV 78 L MCH 25 L RDW 18.9 H Plt Count 514 H Mclean % (Auto) 10.6 H Mclean # 1.2 H Baso # Seg Neutrophils % Seg Neutrophils # 7.8 H D-Dimer Sodium Chloride Carbon Dioxide BUN Creatinine Glucose POC Glucose 113 H 189 H Calcium Phosphorus Magnesium Total Creatine Kinase CK-MB (CK-2) Rel Index Albumin Urine Creatinine 02/15/19 02/15/19 02/16/19 17:35 22:05 06:56 WBC RBC Hgb Hct MCV MCH RDW Plt Count Mclean % (Auto) Mclean # Baso # Seg Neutrophils % Seg Neutrophils # D-Dimer Sodium 133 L Chloride Carbon Dioxide 18 L BUN 50 H Creatinine 2.6 H Glucose 105 H POC Glucose 165 H 309 H Calcium 8.1 L Phosphorus Magnesium Total Creatine Kinase CK-MB (CK-2) Rel Index Albumin Urine Creatinine 02/16/19 02/16/19 06:56 08:38 WBC 12.0 H RBC 2.84 L Hgb 7.3 L Hct 22.1 L MCV 78 L MCH 26 L RDW 19.0 H Plt Count 481 H Mclean % (Auto) 13.6 H Mclean # 1.6 H Baso # Seg Neutrophils % Seg Neutrophils # 8.0 H D-Dimer Sodium Chloride Carbon Dioxide BUN Creatinine Glucose POC Glucose 115 H Calcium Phosphorus Magnesium Total Creatine Kinase CK-MB (CK-2) Rel Index Albumin Urine Creatinine
--- NOTE | 2019-02-16 13:49 | Discharge Summary ---
Providers - Providers Date of Admission: 02/09/19 05:41 Date of discharge: 02/16/19 Attending physician: ZULEIMA HORNE 02/09/19 05:41 Consult to Physician [CONS] Routine Comment: Consulting Provider: SIDRA BERMEO Physician Instructions: Reason For Exam: hemoptysis/r/o TB/cancer 02/09/19 11:30 Physical Therapy Evaluation and Treat [CONS] Routine Comment: Reason For Exam: weakness le 02/09/19 18:41 Consult to Physician [CONS] Routine Comment: Consulting Provider: JONATHAN GOMES Physician Instructions: Reason For Exam: Hemoptysis/RUL infiltrate/cavitary lesion 02/13/19 08:16 Consult to Physician [CONS] Routine Comment: Consulting Provider: DUANE MIGUEL Physician Instructions: Reason For Exam: Hyponatremia/NEELIMA 02/14/19 09:01 Consult to Dietitian/Nutrition [CONS] Routine Physician Instructions: Reason For Exam: Reason for Consult: Malnutrition Primary care physician: [employer] Hospitalization Condition: Stable Pertinent studies: Chest x-ray Chest CTA Renal Ultrasound Hospital course: 73-year-old female patient with significant past medical history of hypertension coronary artery disease was admitted through emergency room with productive cough initial evaluation with chest x-ray and CT is consistent with left-sided cavitary reason/abscess, patient was evaluated both by ID and pulmonary, medications optimized, pulmonary scheduled bronchoscopy status post biopsy and bronchial lavage. Patient also had AFB smears 1 is negative, fungal smear 1 is negative. No malignancy per bronch report. ID recommended to continue antibiotics for additional 3 weeks and follow up as an outpatient. Patient and family was thoroughly discussed about the plan of care and management. Patient was then discharged home in stable condition with outpatient follow-up. Discharge diagnosis and management: --Left cavitary lung lesion; possible lung mass Negative for AFB stain, Negative for fungi by stain, status post airborne isolation Ruled out tuberculosis, negative bronch for malignancy and any acute inflammation or infection ID recommended to continue to treat the patient with ceftin and Flagyl for additional 3 weeks Patient will follow-up with pulmonology clinic for repeated Bronch chest x-ray as an outpatient --SIRS with organ dysfunction, due to Left cavitary lung lesion --Severe hyponatremia; significantly Improved DC IV fluids , IV Lasix one dose , monitored electrolytes Nephrology following --Acute kidney injury with vasomotor nephropathy monitored renal function, avoided nephrotoxins Nephrology following, renal ultrasound showed renal cysts -- Pleural effusion, likely due to pneumonia, we'll continue antibiotics. Repeat chest x-ray as an outpatient upon completion of antibiotic course. --Type 2 diabetes mellitus; Managed with Accu-Chek sliding scale coverage and ADA diet, --Hypertension; moderately controlled Continue current antihypertensives --Severe Malnutrition/hypoalbuminemia; Nutrition consulted --Dyslipidemia; continue statin --DVT prophylaxis; Lovenox Disposition; Home with outpt f/u Hospitalist Physical General appearance: Present: no acute distress, well-nourished - EENT Eyes: Present: PERRL, EOM intact - Neck Neck: Present: supple, normal ROM - Respiratory Respiratory effort: normal Respiratory: left: rhonchi, bilateral: diminished, negative: rales, wheezing - Cardiovascular Rhythm: regular Heart Sounds: Present: S1 & S2 - Extremities Extremities: no ischemia, No edema - Abdominal General gastrointestinal: soft, non-tender, non-distended, normal bowel sounds - Integumentary Integumentary: Present: clear, warm - Psychiatric Psychiatric: appropriate mood/affect, cooperative - Neurologic Neurologic: CNII-XII intact, moves all extremities Disposition: DC/TX-06 HOME UNDER HOME [facility] Time spent for discharge: 34 minutes Core Measure Documentation - Palliative Care Palliative Care/ Comfort Measures: Not Applicable - Core Measures Any of the following diagnoses?: history only Exam - Constitutional Vitals: Temp Pulse Resp BP Pulse Ox 98.6 F 94 H 20 133/54 94 02/16/19 06:27 02/16/19 10:34 02/16/19 06:27 02/16/19 10:34 02/16/19 10:00 Plan Activity: advance as tolerated Weight Bearing Status: Weight Bear as Tolerated Diet: low fat, low salt Durable Medical Equipment Needed Upon Discharge: Bedside Commode Additional Instructions: Repeat BMP by Friday at Dr Miguel office. Need to repeat chest x-ray and bronchoscopy after completion of antibiotics Follow up with: ISABELL CARTER MD [Primary Care Provider] - 3-5 Days SHERYL SEE MD [Staff Physician] - 7 Days NAVNEET VEGA MD [Staff Physician] - 7 Days DUANE MIGUEL MD [Staff Physician] - 7 Days Prescriptions: hydrALAZINE [Apresoline TAB] 25 mg PO Q8HR #90 tablet Pantoprazole [Protonix TAB] 40 mg PO QDAY #30 tablet Other Discharge Orders: Physicial Therapy (Amb) Location: None Selected
--- NOTE | 2019-02-16 14:02 | Progress Note ---
Assessment and Plan Cultures: 02/09 blood cultures - NGTD 02/09/2019 MRSA nasal: negative 02/11/2019 Bronch BAL: culture with normal resp ilda. AFB smear negative. Fungal stain negative. A/P: 73 yo F PMHx DM2, HLD admitted with hemoptysis and found to have cavitating lung lesion. 1. Cavitating left lung lesion - infection v/s malignancy. S/P bronch by Dr. Carey on 02/11/2019. Given the unintentional weight loss and smoking history, cancer is high on the differential. Fungal pneumonia also possible. Other bacterial causes to consider: Nocardia, and Actinomyces given poor dentition. NTM disease possible too. BAL cytology unrevealing for malignancy or acute inflammation. Per Dr. Carey, malignancy remains a concern. 2. DM2 - encourage tight glycemic control 3. HLD 4. NEELIMA on CKD: renally dose abx. 5. PCN allergy: tolerated Ceftriaxone. Recs: OK for discharge on PO Ceftin and Flagyl x 3 weeks Outpatient follow up with pulmonary and ID clinics to follow up on cultures and plan for future course. Per Dr. Carey, malignancy remains a concern Follow up Quantiferon (does not rule out active disease) ID acute care clinical nurse specialist notified Plan discussed with patient and her daughter that patient needs to follow up with both pulm and ID clinics. Contact info given to her. D/W Dr. Dior. Do Tucker MD, FACP [facility], [place] [facility] M: [phone] O: [phone] F: [phone] Subjective Date of service: 02/16/19 Principal diagnosis: lung mass s/p bronch Interval history: No fever. Denies any complaints. Tolerating abx, no rash. No nausea, vomiting. Daughter at bedside. Objective - Exam Narrative Exam: Physical Exam: Constitutional: Alert, cooperative. No acute distress Head, Ears, Nose: Normocephalic, atraumatic. External ears, nose normal Eyes: Conjunctivae/corneas clear. No icterus. No ptosis. Neck: Supple, no meningeal signs Oral: poor dentition, no thrush Cardiovascular: S1, S2 normal. Respiratory: few rhonchi GI: Soft, non-tender; bowel sounds normal. No peritoneal signs Musculoskeletal: No pedal edema, no cyanosis. Skin: No rash or abscess Hem/Lymphatic: No palpable cervical or supraclavicular nodes. No lymphangitis Psych: Mood ok. Affect normal Neurological: Awake, alert, oriented. No gross abnormality - Constitutional Vitals: Vital Signs Temp Pulse Resp BP Pulse Ox 98.6 F 94 H 20 133/54 94 02/16/19 06:27 02/16/19 10:34 02/16/19 06:27 02/16/19 10:34 02/16/19 10:00 Temperature -Last 24 Hours Temperature 98.6 F Temperature 98.0 F Temperature 98.4 F - Labs CBC & Chem 7: 02/16/19 06:56 02/16/19 06:56 Labs: Abnormal lab results 02/15/19 02/15/19 02/16/19 Range/Units 17:35 22:05 06:56 WBC (4.5-11.0) K/mm3 RBC (3.65-5.03) M/mm3 Hgb (10.1-14.3) gm/dl Hct (30.3-42.9) % MCV (79-97) fl MCH (28-32) pg RDW (13.2-15.2) % Plt Count (140-440) K/mm3 [place]ack[place]ord % (Auto) (0.0-7.3) % [place] # (0.0-0.8) K/mm3 Seg Neutrophils # (1.8-7.7) K/mm3 Sodium 133 L (137-145) mmol/L Carbon Dioxide 18 L (22-30) mmol/L BUN 50 H (7-17) mg/dL Creatinine 2.6 H (0.7-1.2) mg/dL Glucose 105 H (65-100) mg/dL POC Glucose 165 H 309 H (70-105) Calcium 8.1 L (8.4-10.2) mg/dL 02/16/19 02/16/19 Range/Units 06:56 08:38 WBC 12.0 H (4.5-11.0) K/mm3 RBC 2.84 L (3.65-5.03) M/mm3 Hgb 7.3 L (10.1-14.3) gm/dl Hct 22.1 L (30.3-42.9) % MCV 78 L (79-97) fl MCH 26 L (28-32) pg RDW 19.0 H (13.2-15.2) % Plt Count 481 H (140-440) K/mm3 [place] % (Auto) 13.6 H (0.0-7.3) % [place] # 1.6 H (0.0-0.8) K/mm3 Seg Neutrophils # 8.0 H (1.8-7.7) K/mm3 Sodium (137-145) mmol/L Carbon Dioxide (22-30) mmol/L BUN (7-17) mg/dL Creatinine (0.7-1.2) mg/dL Glucose (65-100) mg/dL POC Glucose 115 H (70-105) Calcium (8.4-10.2) mg/dL
--- NOTE | 2019-02-16 14:12 | Progress Note ---
Assessment and Plan 1. Acute kidney injury: NEELIMA in the setting of IV contrast and volume depletion. Renal US negative for hydro. UA is bland. Slight decrease in the creatinine level noted. Monitor renal function. Renal prognosis is guarded. Avoid nephrotoxic agents. Meds dosage based on GFR. 2. FEN: Hyponatremia, 2/2 HCTZ. Sodium level is better. Metabolic acidosis, continue sodium bicarbonate Monitor lytes. 3. Left UL cavitating lung lesion: Followed by Pulmonary and ID. 4. H/o CAD. 5. DM-2. 6. Hypertension: Monitor BP. 7. Anemia: POA. D/w her daughter at the bedside. Patient is going home today. F/u with me in 1 week. Examination: General appearance: well-developed, well-nourished, appears stated age, no distress HEENT: ATNC, PERRL, mucous membranes dry, hearing intact, vision intact Neck: neck supple, trachea midline Respiratory: ctab Heart: regular, S1S2, no murmur Gastrointestinal: normoactive bowel sounds, not tender, not distended Integumentary: no rash, warm and dry Neurologic: no focal deficit, no asterixis, confused Ext: trace LE edema Psychiatric: cooperative Subjective Date of service: 02/16/19 Principal diagnosis: lung mass s/p bronch Interval history: Patient was seen and examined at the bedside. Doing ok. Objective - Vital Signs Vital signs: Vital Signs - 12hr 02/16/19 02/16/19 02/16/19 06:25 06:27 10:00 Temperature 98.6 F Pulse Rate 86 85 Respiratory 20 Rate Blood Pressure 158/89 158/59 O2 Sat by Pulse 95 94 Oximetry 02/16/19 10:34 Temperature Pulse Rate 94 H Respiratory Rate Blood Pressure 133/54 O2 Sat by Pulse Oximetry - Lab 02/16/19 06:56 02/16/19 06:56 Most recent lab results Calcium 8.1 mg/dL (8.4-10.2) L 02/16/19 06:56 Phosphorus 4.70 mg/dL (2.5-4.5) H 02/14/19 04:09 Magnesium 2.20 mg/dL (1.7-2.3) 02/16/19 06:56 Urine Creatinine 62.9 mg/dL (0.1-20.0) H 02/13/19 18:00 Urine Sodium 69 mmol/L 02/13/19 18:00 Medications & Allergies - Medications Allergies/Adverse Reactions: Allergies ibuprofen Allergy (Verified 02/08/19 18:37) Unknown Penicillins Allergy (Verified 02/08/19 18:37) Unknown Home Medications: Home Medications Medication Instructions Recorded Confirmed Last Taken Type Allopurinol 100 mg PO DAILY 12/26/18 02/09/19 Unknown History Aspirin 325 mg PO DAILY 12/26/18 02/09/19 Unknown History Cilostazol 100 mg PO BID 12/26/18 02/09/19 Unknown History Ferrous Sulfate 325 mg PO DAILY 12/26/18 02/09/19 Unknown History Metoprolol Tartrate 50 mg PO BID #60 12/29/18 02/09/19 Unknown Rx Ipratropium (Nf) [Atrovent HFA 2 puff IH Q6HR PRN #1 inha 01/11/19 02/09/19 Unknown Rx 17MCG/PUFF] Acetaminophen/Codeine [Tylenol 1 tab PO Q6H PRN #12 tab 01/21/19 02/09/19 Unknown Rx /Codeine # 3 tab] AtorvaSTATin [Lipitor] 40 mg PO QHS 02/09/19 02/09/19 Unknown History Pantoprazole [Protonix TAB] 40 mg PO QDAY #30 tablet 02/16/19 Unknown Rx cefUROXime [Ceftin] 500 mg PO Q12H 21 Days tablet 02/16/19 Unknown Rx glipiZIDE [Glucotrol] 5 mg PO BID #60 tablet 02/16/19 Unknown Rx hydrALAZINE [Apresoline TAB] 25 mg PO Q8HR #90 tablet 02/16/19 Unknown Rx metroNIDAZOLE [Flagyl] 500 mg PO Q8HR 21 Days 02/16/19 Unknown Rx Active Medications: Generic Name Dose Route Start Last Admin Trade Name Freq PRN Reason Stop Dose Admin Acetaminophen 650 mg 02/09/19 05:41 02/15/19 22:15 Tylenol PO 650 mg Q4H PRN Administration Pain MILD(1-3)/Fever >100.5/BRENNER Acetaminophen/Codeine Phosphate 1 tab 02/09/19 10:25 02/16/19 06:41 Tylenol #3 PO 1 tab Q6H PRN Administration Pain, Moderate (4-6) Albuterol 2.5 mg 02/15/19 07:48 02/15/19 10:35 Proventil IH 2.5 mg TIDRT PRN Administration Shortness Of Breath Allopurinol 100 mg 02/09/19 12:00 02/16/19 10:34 Zyloprim PO 100 mg QDAY MAYLIN Administration Atorvastatin Calcium 40 mg 02/09/19 22:00 02/15/19 22:09 Lipitor PO 40 mg QHS MAYLIN Administration Cilostazol 100 mg 02/09/19 12:00 02/16/19 10:33 Pletal PO 100 mg BID MAYLIN Administration Dextrose 50 ml 02/09/19 06:53 D50w (25gm) Syringe IV Q30MIN PRN Hypoglycemia Hydralazine HCl 25 mg 02/12/19 08:45 02/16/19 06:25 Apresoline PO 25 mg Q8HR MAYLIN Administration Hydralazine HCl 10 mg 02/12/19 08:39 Apresoline IV Q4HR PRN Hypertension Ceftriaxone Sodium 1 gm in 50 mls @ 100 mls/hr 02/15/19 14:00 02/16/19 10:36 Rocephin/Ns 1 Gm/50 Ml IV 100 mls/hr Q24HR MAYLIN Administration Protocol Metronidazole 500 mg in 100 mls @ 100 mls/hr 02/15/19 14:00 02/16/19 06:25 Flagyl 500 Mg/100 Ml IV 100 mls/hr Q8HR MAYLIN Administration Protocol Insulin Human Lispro 0 unit 02/09/19 12:54 02/16/19 08:02 Humalog SUB-Q Not Given ACHS MAYLIN Protocol Magnesium Oxide 400 mg 02/14/19 10:00 02/16/19 10:34 Mag-Ox PO 400 mg QDAY MAYLIN Administration Metoprolol Tartrate 50 mg 02/13/19 12:00 02/16/19 10:34 Metoprolol PO 50 mg BID MAYLIN Administration Ondansetron HCl 4 mg 02/09/19 05:41 02/10/19 22:05 Zofran IV 4 mg Q8H PRN Administration Nausea And Vomiting Pantoprazole Sodium 40 mg 02/12/19 17:00 02/16/19 10:34 Protonix PO 40 mg QDAY MAYLIN Administration Sodium Bicarbonate 650 mg 02/13/19 14:00 02/16/19 10:33 Sodium Bicarbonate PO 650 mg TID MAYILN Administration Sodium Chloride 10 ml 02/09/19 10:00 02/16/19 10:36 Sodium Chloride Flush Syringe 10 Ml IV 10 ml BID MAYLIN Administration Sodium Chloride 10 ml 02/09/19 05:41 Sodium Chloride Flush Syringe 10 Ml IV PRN PRN LINE FLUSH
[2019-02-16 14:33] VITALS: BP 152/54
== END 2019-02-16 16:00 | disposition home health service (06) | DRG 177 ==
LOC: ED 18:35 → 2B-ACE 02-09 05:41 → 3A 02-09 06:31
PROVIDERS: ADMIT Internal Medicine; ATTEND Internal Medicine
PROC: 0BD88ZX Extraction of Left Upper Lobe Bronchus, Via Natural or Artificial Opening Endoscopic, Diagnostic (ICD-10-PCS; principal; 2019-02-11)
DX: J85.1 Abscess of lung with pneumonia (principal); N17.0 Acute kidney failure with tubular necrosis; E43 Unspecified severe protein-calorie malnutrition; R65.11 Systemic inflammatory response syndrome (SIRS) of non-infectious origin with acute organ dysfunction; R04.2 Hemoptysis; E87.1 Hypo-osmolality and hyponatremia; M10.9 Gout, unspecified; T50.2X5A Adverse effect of carbonic-anhydrase inhibitors, benzothiadiazides and other diuretics, initial encounter; I25.10 Atherosclerotic heart disease of native coronary artery without angina pectoris; I10 Essential (primary) hypertension; E11.9 Type 2 diabetes mellitus without complications; Z82.49 Family history of ischemic heart disease and other diseases of the circulatory system; Z83.3 Family history of diabetes mellitus; Z88.6 Allergy status to analgesic agent; Z88.0 Allergy status to penicillin; Z79.899 Other long term (current) drug therapy; Z79.82 Long term (current) use of aspirin; Z79.84 Long term (current) use of oral hypoglycemic drugs; Z87.891 Personal history of nicotine dependence; Y92.098 Other place in other non-institutional residence as the place of occurrence of the external cause; Z95.5 Presence of coronary angioplasty implant and graft; Z68.26 Body mass index [BMI] 26.0-26.9, adult
CPT/HCPCS: 36415; 71045; 71046; 71275; 76770; 80048; 80053; 81001; 82140; 82550; 82553; 82570; 82962; 83690; 83735; 84100; 84300; 84484; 85025; 85379; 85610; 85730; 87040; 87102; 87116; 88104; 88112; 88312; 89050; 90471; 90686; 90732; 93005; 93010; 94640; 94760; 96361; 96365; G0378; A9270-GY; G0008; G0009; J0696; J1815; J1940; J2370; J2405; J3370; J3475; J7030; Q9967

== ENCOUNTER 2019-02-18 22:41 | Inpatient (IN) | payer MEDICARE, MEDICAID ==
[2019-02-18] MEDS ORDERED: methylPREDNISolone Sod Succinate 125 MG/2 ML INJ IV ONE (22:58)
[2019-02-18] MEDS ORDERED: ALBUTEROL 2.5 MG/3 ML NEBU IH ONE (22:59)
[2019-02-18] MEDS ORDERED: IPRATROPIUM 0.02% NEBU 2.5 ML IH ONE (22:59)
[2019-02-18 23:21] LABS: Basophils # (Auto) 0.2 K/mm3 (0.0-0.1); Basophils % (Auto) 1.6 % (0.0-1.8); Eosinophils # (Auto) 0.2 K/mm3 (0.0-0.4); Eosinophils % (Auto) 1.1 % (0.0-4.3); Hematocrit 26.2 % (30.3-42.9); Hemoglobin 8.3 gm/dl (10.1-14.3); Lymphocytes % (Auto) 13.6 % (13.4-35.0); Mean Corpuscular HGB Conc 32 % (30-34); Mean Corpuscular Volume 79 fl (79-97); Monocytes # (Auto) 1.5 K/mm3 (0.0-0.8); Monocytes % (Auto) 10.5 % (0.0-7.3); Platelet Count 582 K/mm3 (140-440); Red Blood Count 3.33 M/mm3 (3.65-5.03); Red Cell Distribution Width 19.4 % (13.2-15.2)
--- NOTE | 2019-02-18 23:23 | Emergency Department Report ---
HPI - General Chief Complaint: Dyspnea/Respdistress Time Seen by Provider: 02/18/19 22:51 - HPI HPI: 73-year-old female presents to the emergency department with complaint of shortness of breath, coughing, wheezing that has gotten worse over the past 24 hours. The patient was just discharged from this hospital 2 days ago after spending about one week here for similar symptoms. She had previously been found to have a left upper lobe cavitary consolidation that apparently had worsened. She was ruled out for tuberculosis or a fungal infection and was discharged home on Flagyl and Ceftin. She has been taking her medications and using her albuterol inhaler without any relief. She denies any fever, chest pain. She does have some foot swelling bilaterally. She has a past mental history of hypertension, diabetes and coronary artery disease with 2 cardiac stents. She is a tobacco smoker with about a 45 year pack history. Her primary care physician is Dr. Burris. Her narcotics investigator is Dr. Carey. She does not have a fashion photographer as she just moved here from [place] in December. ED Past Medical Hx - Past Medical History Previous Medical History?: Yes Hx Hypertension: Yes Hx Diabetes: Yes Hx Liver Disease: No Hx Renal Disease: No - Surgical History Past Surgical History?: Yes Hx Coronary Stent: Yes (3 stents) Additional Surgical History: stent placement - Social History Smoking Status: Former Smoker - Medications Home Medications: Home Medications Medication Instructions Recorded Confirmed Last Taken Type Allopurinol 100 mg PO DAILY 12/26/18 02/09/19 Unknown History Aspirin 325 mg PO DAILY 12/26/18 02/09/19 Unknown History Cilostazol 100 mg PO BID 12/26/18 02/09/19 Unknown History Ferrous Sulfate 325 mg PO DAILY 12/26/18 02/09/19 Unknown History Metoprolol Tartrate 50 mg PO BID #60 12/29/18 02/09/19 Unknown Rx Ipratropium (Nf) [Atrovent HFA 2 puff IH Q6HR PRN #1 inha 01/11/19 02/09/19 Unknown Rx 17MCG/PUFF] Acetaminophen/Codeine [Tylenol 1 tab PO Q6H PRN #12 tab 01/21/19 02/09/19 Unknown Rx /Codeine # 3 tab] AtorvaSTATin [Lipitor] 40 mg PO QHS 02/09/19 02/09/19 Unknown History Pantoprazole [Protonix TAB] 40 mg PO QDAY #30 tablet 02/16/19 Unknown Rx cefUROXime [Ceftin] 500 mg PO Q12H 21 Days tablet 02/16/19 Unknown Rx glipiZIDE [Glucotrol] 5 mg PO BID #60 tablet 02/16/19 Unknown Rx hydrALAZINE [Apresoline TAB] 25 mg PO Q8HR #90 tablet 02/16/19 Unknown Rx metroNIDAZOLE [Flagyl] 500 mg PO Q8HR 21 Days 02/16/19 Unknown Rx ED Review of Systems ROS: Stated complaint: SOB, RUPA Other details as noted in HPI Comment: All other systems reviewed and negative Constitutional: denies: chills, fever Eyes: denies: eye pain, vision change ENT: denies: ear pain, throat pain Respiratory: cough, shortness of breath, wheezing Cardiovascular: edema (feet). denies: chest pain Gastrointestinal: denies: abdominal pain, vomiting Genitourinary: denies: dysuria, discharge Musculoskeletal: denies: back pain, arthralgia Skin: denies: rash, lesions Neurological: denies: headache, weakness Physical Exam - Physical Exam Vital Signs: Vital Signs 02/18/19 02/18/19 22:48 23:00 Temperature 97.4 F L Pulse Rate 101 H 103 H Respiratory 22 30 H Rate Blood Pressure 187/87 182/106 O2 Sat by Pulse 87 100 Oximetry Physical Exam: GENERAL: The patient is well-developed well-nourished. HENT: Normocephalic. Atraumatic. Patient has moist mucous membranes. EYES: Extraocular motions are intact. Pupils equal reactive to light bilaterally. NECK: Supple. Trachea is midline. CHEST/LUNGS: Coarse breath sounds throughout the chest. The patient has tachypnea with some accessory muscle use. She has conversational dyspnea. There is respiratory distress noted. HEART/CARDIOVASCULAR: Regular. There is mild tachycardia. There is no murmur. ABDOMEN: Abdomen is soft, nontender. Patient has normal bowel sounds. There is no abdominal distention. SKIN: Skin is warm and dry. Mild nonpitting swelling of the bilateral feet. NEURO: The patient is awake, alert, and oriented. The patient is cooperative. The patient has no focal neurologic deficits. Normal speech. MUSCULOSKELETAL: There is no tenderness or deformity. There is no evidence of acute injury. ED Course Vital Signs 02/18/19 02/18/19 22:48 23:00 Temperature 97.4 F L Pulse Rate 101 H 103 H Respiratory 22 30 H Rate Blood Pressure 187/87 182/106 O2 Sat by Pulse 87 100 Oximetry - ABG Interpretation Ph: 7.377 PCO2: 35 PO2: 253 Bicarbonate: 20 Interpretation: normal ED Medical Decision Making - Lab Data Result diagrams: 02/18/19 23:11 02/18/19 23:11 - EKG Data -: EKG Interpreted by Co EKG shows normal: sinus rhythm (PVCs), axis, intervals, QRS complexes (Q waves to the septal leads), ST-T waves Rate: normal - EKG Data When compared to previous EKG there are: no significant change Interpretation: unchanged when compared t (02/09/19) - Radiology Data Radiology results: report reviewed CHEST 1 VIEW INDICATION / CLINICAL INFORMATION: SOB. COMPARISON: 02/14/2019 FINDINGS: SUPPORT DEVICES: None. HEART / MEDIASTINUM: Heart size is obscured by left lower lobe pleural-parenchymal disease. LUNGS / PLEURA: There is significant left lower lobe pleural-parenchymal disease present. This appears minimally improved compared with the most recent chest radiograph. There is mild interstitial pulmonary edema. Interstitial markings are slightly prominent in the right lower lobe probably from a combination of atelectasis and the interstitial pulmonary edema. No pneumothorax. ADDITIONAL FINDINGS: No significant additional findings. IMPRESSION: 1. Persistent significant left lower lobe pleural parenchymal disease most likely combination of pneumonia and parapneumonic effusion. Findings appear slightly improved compared with 02/14/2019. 2. Persistent mild interstitial pulmonary edema. - Medical Decision Making This patient presented with shortness of breath with a history of recent pneumonia, cavitary lung lesion. She appears to be in some respiratory distress with coarse breath sounds, tachypnea, conversational dyspnea, accessory muscle use. She was given 2 different breathing treatments and then placed on BiPAP for support. ABG did not show any significant acid-base disturbance. Chest x- ray shows a persistent but significant left lower lobe pleural and parenchymal disease consistent with pneumonia and parapneumonic effusion and the patient has interstitial pulmonary edema. BNP greater than 4000. She has anemia with hemoglobin of about 8.5 but this is improved from her recent discharge. Renal insufficiency/chronic kidney disease is also improved from her recent discharge. Patient was given a dose of IV Lasix to start diuresis. She was covered with antibiotics after blood cultures have been sent. She will be admitted to the hospital for further evaluation and treatment was accepted for admission by the hospitalist, Dr. Mayorga. - Differential Diagnosis Pneumonia, Malignancy, CHF, Dysrythmia, Bronchitis Critical Care Time: Yes Critical care time in (mins) excluding proc time.: 31 Critical care attestation.: If time is entered above; I have spent that time in minutes in the direct care of this critically ill patient, excluding procedure time. Critical care time was spent on this patient and doing her initial evaluation, multiple re- evaluations, ordering and interpretation of labs and imaging, discussion with the patient and her daughter, discussion with the hospitalist service. Critical Care Time: 31 minutes ED Disposition Clinical Impression: Acute respiratory distress, Renal insufficiency Pneumonia Qualifiers: Pneumonia type: due to unspecified organism Laterality: left Lung location: lower lobe of lung Qualified Code(s): J18.9 - Pneumonia, unspecified organism Interstitial edema Qualifiers: Edema type: unspecified Qualified Code(s): R60.9 - Edema, unspecified CHF (congestive heart failure) Qualifiers: Heart failure type: unspecified Heart failure chronicity: unspecified Qualified Code(s): I50.9 - Heart failure, unspecified Disposition: DC-09 OP ADMIT IP TO THIS HOSP Is pt being admited?: Yes Condition: Serious Instructions: Bacterial Pneumonia (ED) Time of Disposition: 01:31
--- NOTE | 2019-02-18 23:31 | XRay Report ---
CHEST 1 VIEW INDICATION / CLINICAL INFORMATION: SOB. COMPARISON: 02/14/2019 FINDINGS: SUPPORT DEVICES: None. HEART / MEDIASTINUM: Heart size is obscured by left lower lobe pleural-parenchymal disease. LUNGS / PLEURA: There is significant left lower lobe pleural-parenchymal disease present. This appear s minimally improved compared with the most recent chest radiograph. There is mild interstitial pulmo nary edema. Interstitial markings are slightly prominent in the right lower lobe probably from a comb ination of atelectasis and the interstitial pulmonary edema. No pneumothorax. ADDITIONAL FINDINGS: No significant additional findings. IMPRESSION: 1. Persistent significant left lower lobe pleural parenchymal disease most likely combination of pneu monia and parapneumonic effusion. Findings appear slightly improved compared with 02/14/2019. 2. Persistent mild interstitial pulmonary edema. Signer Name: Guillermina Lin MD Signed: 02/18/2019 11:26 PM Workstation Name: [id number]
[2019-02-18 23:46] LABS: Albumin 2.4 g/dL (3.9-5); Calcium 8.5 mg/dL (8.4-10.2)
[2019-02-19] MEDS ORDERED: FUROSEMIDE 40 MG/4 ML INJ IV ONE (00:20)
[2019-02-19] MEDS ORDERED: metroNIDAZOLE/NS 500 MG/100 ML 500 MG/100 ML BAG IV ONE (00:35)
[2019-02-19] MEDS ORDERED: ALBUTEROL 2.5 MG/3 ML NEBU IH ONE (00:41)
[2019-02-19] MEDS ORDERED: IPRATROPIUM 0.02% NEBU 2.5 ML IH ONE (00:41)
[2019-02-19] MEDS ORDERED: MORPHINE 4 MG/1 ML INJ IV ONE (01:39)
[2019-02-19] MEDS ORDERED: MORPHINE 2 MG/1 ML INJ ONE (01:43)
[2019-02-19] MEDS ORDERED: MAGNESIUM HYDROXIDE (MOM) ORAL LIQD UDC PO PRN (03:08)
[2019-02-19] MEDS ORDERED: MORPHINE 2 MG/1 ML INJ IV PRN (03:08)
[2019-02-19] MEDS ORDERED: DEXTROSE 50% IN WATER (25GM) 50 ML SYRINGE IV PRN (03:08)
[2019-02-19] MEDS ORDERED: VANCOMYCIN PHARMACY TO DOSE IV SCH (04:00)
[2019-02-19] MEDS ORDERED: VANCOMYCIN 1,250 MG in SODIUM CHLORIDE 0.9% 250ML 250 ML IV ONE (04:35)
--- NOTE | 2019-02-19 05:00 | History and Physical Report ---
History of Present Illness Date of examination: 02/19/19 Date of admission: 02/19/19 01:41 Chief complaint: Shortness of breath History of present illness: 73-year-old female with known history of hypertension coronary artery disease diabetes mellitus who presents to the emergency room today complaining of shortness of breath. She denies any fever no chills no nausea or vomiting. She was just recently discharged from the hospital with similar symptoms. She said to have had some cavitary lesion in the left upper lobe was placed on antibiotics. She was also ruled out for TB. She presents to the emergency room in respiratory distress. She was placed on BiPAP. Upon evaluation in the emergency room she was found to have findings consistent with a possible pneumonia and some pleural effusion. Past History Past Medical History: CAD, diabetes, GERD, hypertension, other (Gout) Past Surgical History: No surgical history Family history: cancer (Breast cancer), diabetes Medications and Allergies Allergies Allergy/AdvReac Type Severity Reaction Status Date / Time ibuprofen Allergy Unknown Verified 02/18/19 23:29 Penicillins Allergy Unknown Verified 02/18/19 23:29 Home Medications Medication Instructions Recorded Confirmed Last Taken Type Allopurinol 100 mg PO DAILY 12/26/18 02/09/19 Unknown History Aspirin 325 mg PO DAILY 12/26/18 02/09/19 Unknown History Cilostazol 100 mg PO BID 12/26/18 02/09/19 Unknown History Ferrous Sulfate 325 mg PO DAILY 12/26/18 02/09/19 Unknown History Metoprolol Tartrate 50 mg PO BID #60 12/29/18 02/09/19 Unknown Rx Ipratropium (Nf) [Atrovent HFA 2 puff IH Q6HR PRN #1 inha 01/11/19 02/09/19 Unknown Rx 17MCG/PUFF] Acetaminophen/Codeine [Tylenol 1 tab PO Q6H PRN #12 tab 01/21/19 02/09/19 Unknown Rx /Codeine # 3 tab] AtorvaSTATin [Lipitor] 40 mg PO QHS 02/09/19 02/09/19 Unknown History Pantoprazole [Protonix TAB] 40 mg PO QDAY #30 tablet 02/16/19 Unknown Rx cefUROXime [Ceftin] 500 mg PO Q12H 21 Days tablet 02/16/19 Unknown Rx glipiZIDE [Glucotrol] 5 mg PO BID #60 tablet 02/16/19 Unknown Rx hydrALAZINE [Apresoline TAB] 25 mg PO Q8HR #90 tablet 02/16/19 Unknown Rx metroNIDAZOLE [Flagyl] 500 mg PO Q8HR 21 Days 02/16/19 Unknown Rx Active Meds: Active Medications Dextrose (D50w (25gm) Syringe) 0 ml IV Q30MIN PRN; Protocol PRN Reason: Hypoglycemia Cefepime HCl (Cefepime/Ns 2 Gm/100 Ml) 2 gm in 100 mls @ 200 mls/hr IV Q12H MAYLIN; Protocol Levofloxacin/Dextrose (Levaquin 750mg/150ml) 750 mg in 150 mls @ 100 mls/hr IV Q48HR MAYLIN; Protocol Vancomycin HCl 1,250 mg/ (Sodium Chloride) 275 mls @ 166.667 mls/hr IV ONCE ONE Stop: 02/19/19 06:13 Last Admin: 02/19/19 04:26 Dose: 166.667 mls/hr Documented by: Vancomycin HCl (Vancomycin/Ns 1 Gm/250 Ml) 1 gm in 250 mls @ 250 mls/hr IV Q24H MAYLIN Insulin Human Regular (Humulin R) 0 units SUB-Q ACHS MAYLIN; Protocol Magnesium Hydroxide (Milk Of Magnesia) 30 ml PO Q4H PRN PRN Reason: Constipation Morphine Sulfate (Morphine) 2 mg IV Q4H PRN PRN Reason: Pain, Moderate (4-6) Sodium Chloride (Sodium Chloride Flush Syringe 10 Ml) 10 ml IV BID MAYLIN Sodium Chloride (Sodium Chloride Flush Syringe 10 Ml) 10 ml IV PRN PRN PRN Reason: LINE FLUSH Review of Systems Respiratory: shortness of breath Exam - Constitutional Vitals: Temp Pulse Resp BP Pulse Ox 97.4 F L 103 H 20 160/82 100 02/18/19 22:48 02/19/19 03:15 02/19/19 03:15 02/19/19 03:15 02/19/19 03:15 General appearance: Present: no acute distress, well-nourished - EENT Eyes: Present: PERRL, EOM intact ENT: hearing intact, clear oral mucosa, dentition normal - Neck Neck: Present: supple, normal ROM - Respiratory Respiratory: left: diminished - Cardiovascular Rhythm: regular Heart Sounds: Present: S1 & S2 - Extremities Extremities: no ischemia Extremity abnormal: edema (1+ ankle edema) Peripheral Pulses: within normal limits - Abdominal General gastrointestinal: Present: soft, non-tender, non-distended - Integumentary Integumentary: Present: clear, warm, dry - Musculoskeletal Musculoskeletal: strength equal bilaterally - Psychiatric Psychiatric: appropriate mood/affect, intact judgment & insight, cooperative - Neurologic Neurologic: CNII-XII intact, moves all extremities Results - Labs CBC & Chem 7: 02/18/19 23:11 02/18/19 23:11 Labs: Abnormal lab results 02/18/19 02/18/19 02/18/19 Range/Units 23:11 23:11 23:11 WBC 14.5 H (4.5-11.0) K/mm3 RBC 3.33 L (3.65-5.03) M/mm3 Hgb 8.3 L (10.1-14.3) gm/dl Hct 26.2 L (30.3-42.9) % MCH 25 L (28-32) pg RDW 19.4 H (13.2-15.2) % Plt Count 582 H (140-440) K/mm3 [place] % (Auto) 10.5 H (0.0-7.3) % [place] # 1.5 H (0.0-0.8) K/mm3 Baso # 0.2 H (0.0-0.1) K/mm3 Seg Neutrophils % 73.2 H (40.0-70.0) % Seg Neutrophils # 10.6 H (1.8-7.7) K/mm3 POC ABG pO2 (80-105) Sodium 136 L (137-145) mmol/L Carbon Dioxide 18 L (22-30) mmol/L BUN 26 H (7-17) mg/dL Creatinine 1.3 H (0.7-1.2) mg/dL Glucose 118 H (65-100) mg/dL NT-Pro-B Natriuret Pep 4784 H (0-900) pg/mL Albumin 2.4 L (3.9-5) g/dL 02/18/19 Range/Units 23:44 WBC (4.5-11.0) K/mm3 RBC (3.65-5.03) M/mm3 Hgb (10.1-14.3) gm/dl Hct (30.3-42.9) % MCH (28-32) pg RDW (13.2-15.2) % Plt Count (140-440) K/mm3 [place] % (Auto) (0.0-7.3) % [place] # (0.0-0.8) K/mm3 Baso # (0.0-0.1) K/mm3 Seg Neutrophils % (40.0-70.0) % Seg Neutrophils # (1.8-7.7) K/mm3 POC ABG pO2 253 H (80-105) Sodium (137-145) mmol/L Carbon Dioxide (22-30) mmol/L BUN (7-17) mg/dL Creatinine (0.7-1.2) mg/dL Glucose (65-100) mg/dL NT-Pro-B Natriuret Pep (0-900) pg/mL Albumin (3.9-5) g/dL Assessment and Plan - Patient Problems (1) Acute respiratory distress Current Visit: Yes Status: Acute Plan to address problem: Possibly secondary to underlying pneumonia and or CHF. She has been placed on BiPAP and will be closely monitored. (2) Pneumonia Current Visit: Yes Status: Acute Qualifiers: Pneumonia type: due to unspecified organism Laterality: left Lung location: lower lobe of lung Qualified Code(s): J18.9 - Pneumonia, unspecified organism Plan to address problem: She has been started on empiric IV antibiotics, H CAP. We await blood culture results. (3) CHF (congestive heart failure) Current Visit: Yes Status: Acute Qualifiers: Heart failure type: unspecified Heart failure chronicity: unspecified Qu alified Code(s): I50.9 - Heart failure, unspecified Plan to address problem: We will continue patient on routine home medications. Will monitor daily weight monitor input and output. (4) Renal insufficiency Current Visit: Yes Status: Acute Plan to address problem: This appears chronic. Will monitor BUN and creatinine (5) DVT prophylaxis Current Visit: No Status: Acute Plan to address problem: We will place on subcutaneous heparin. (6) Full code status Current Visit: Yes Status: Acute
[2019-02-19] MEDS ORDERED: CEFEPIME/NS 1 GM/100 ML 1 GM/100 ML BAG IV ONE (05:47)
[2019-02-19] MEDS ORDERED: CEFEPIME/NS 2 GM/100 ML 2 GM/100 ML BAG IV ONE ×2 (05:49→18:30)
[2019-02-19] MEDS: CEFEPIME/NS 2 GM/100 ML 2 GM/100 ML BAG IV SCH ×2 (05:53→19:05)
[2019-02-19] MEDS ORDERED: INSULIN REGULAR, HUMAN 100 UNITS/1 ML ONE ×3 (08:11→18:51)
[2019-02-19] MEDS: INSULIN REGULAR, HUMAN 100 UNITS/1 ML SUB-Q SCH ×4 (08:12→22:49)
--- NOTE | 2019-02-19 13:59 | Consultation ---
History of Present Illness Consult date: 02/19/19 Requesting physician: ELIZA PINA Reason for consult: hypoxemia, pleural effusion History of present illness: 73 y/o female, well known to me as I was on her treatment team last hospital stay (just a few days ago) who is now readmitted for dyspnea and found to have a large left sided effusion. This is the same side that she had upper lobe collapse from abnormal mucosa seen on bronch. Please review my bronch note from last admit. Was concerned about malignancy but washings and brushings were both negative per pathology. Now back with left sided effusion. No trauma, no falls. Past History Past Medical History: CAD, diabetes, GERD, hypertension, other (Gout) Past Surgical History: No surgical history Social history: smoking Family history: cancer, diabetes Medications and Allergies Allergies Allergy/AdvReac Type Severity Reaction Status Date / Time ibuprofen Allergy Unknown Verified 02/18/19 23:29 Penicillins Allergy Unknown Verified 02/18/19 23:29 Home Medications Medication Instructions Recorded Confirmed Last Taken Type Allopurinol 100 mg PO DAILY 12/26/18 02/19/19 Unknown History Aspirin 325 mg PO DAILY 12/26/18 02/19/19 Unknown History Cilostazol 100 mg PO BID 12/26/18 02/19/19 Unknown History Ferrous Sulfate 325 mg PO DAILY 12/26/18 02/19/19 Unknown History Metoprolol Tartrate 50 mg PO BID #60 12/29/18 02/19/19 Unknown Rx Ipratropium (Nf) [Atrovent HFA 2 puff IH Q6HR PRN #1 inha 01/11/19 02/19/19 Unknown Rx 17MCG/PUFF] Acetaminophen/Codeine [Tylenol 1 tab PO Q6H PRN #12 tab 01/21/19 02/19/19 Unknown Rx /Codeine # 3 tab] AtorvaSTATin [Lipitor] 40 mg PO QHS 02/09/19 02/19/19 Unknown History Pantoprazole [Protonix TAB] 40 mg PO QDAY #30 tablet 02/16/19 02/19/19 Unknown Rx cefUROXime [Ceftin] 500 mg PO Q12H 21 Days tablet 02/16/19 02/19/19 Unknown Rx glipiZIDE [Glucotrol] 5 mg PO BID #60 tablet 02/16/19 02/19/19 Unknown Rx hydrALAZINE [Apresoline TAB] 25 mg PO Q8HR #90 tablet 02/16/19 02/19/19 Unknown Rx metroNIDAZOLE [Flagyl] 500 mg PO Q8HR 21 Days 02/16/19 02/19/19 Unknown Rx Active Meds: Active Medications Dextrose (D50w (25gm) Syringe) 0 ml IV Q30MIN PRN; Protocol PRN Reason: Hypoglycemia Furosemide (Lasix) 40 mg IV 0600,1800 MAYLIN Cefepime HCl (Cefepime/Ns 2 Gm/100 Ml) 2 gm in 100 mls @ 200 mls/hr IV Q12H MAYLIN; Protocol Last Admin: 02/19/19 05:53 Dose: 200 mls/hr Documented by: Levofloxacin/Dextrose (Levaquin 750mg/150ml) 750 mg in 150 mls @ 100 mls/hr IV Q48HR MAYLIN; Protocol Last Admin: 02/19/19 11:50 Dose: 100 mls/hr Documented by: Vancomycin HCl 750 mg/ Sodium (Chloride) 265 mls @ 166.667 mls/hr IV Q24H MAYLIN Insulin Human Regular (Humulin R) 0 units SUB-Q ACHS MAYLIN; Protocol Last Admin: 02/19/19 12:14 Dose: 2 units Documented by: Magnesium Hydroxide (Milk Of Magnesia) 30 ml PO Q4H PRN PRN Reason: Constipation Morphine Sulfate (Morphine) 2 mg IV Q4H PRN PRN Reason: Pain, Moderate (4-6) Sodium Chloride (Sodium Chloride Flush Syringe 10 Ml) 10 ml IV BID [facility] Last Admin: 02/19/19 11:51 Dose: 10 ml Documented by: Sodium Chloride (Sodium Chloride Flush Syringe 10 Ml) 10 ml IV PRN PRN PRN Reason: LINE FLUSH Review of Systems All systems: negative Physical Examination Vital signs: Vital Signs Temp Pulse Resp BP Pulse Ox 97.4 F L 101 H 22 187/87 87 02/18/19 22:48 02/18/19 22:48 02/18/19 22:48 02/18/19 22:48 02/18/19 22:48 General appearance: no acute distress, alert Eyes: non-icteric ENT: oropharynx moist Neck: supple Effort: normal Ascultation: Right: clear, Left: diminished breath sounds, rales, egophony Results - Laboratory Findings CBC and BMP: 11/14/19 23:11 02/18/19 23:11 ABG POC ABG pH 7.377 (7.35-7.45) 02/18/19 23:44 POC ABG pCO2 35.6 (35-45) 02/18/19 23:44 POC ABG pO2 253 (80-105) H 02/18/19 23:44 POC ABG HCO3 20.9 (22-26 mml/L) 02/18/19 23:44 POC ABG Total CO2 22 (23-27mmol/L) 02/18/19 23:44 POC ABG O2 Sat 100 02/18/19 23:44 Abnormal lab findings: Abnormal Labs 02/18/19 02/18/19 02/18/19 23:11 23:11 23:11 WBC 14.5 H RBC 3.33 L Hgb 8.3 L Hct 26.2 L MCH 25 L RDW 19.4 H Plt Count 582 H [place] % (Auto) 10.5 H [place] # 1.5 H Baso # 0.2 H Seg Neutrophils % 73.2 H Seg Neutrophils # 10.6 H POC ABG pO2 Sodium 136 L Carbon Dioxide 18 L BUN 26 H Creatinine 1.3 H Glucose 118 H POC Glucose NT-Pro-B Natriuret Pep 4784 H Albumin 2.4 L 02/18/19 02/19/19 02/19/19 23:44 08:09 12:03 WBC RBC Hgb Hct MCH RDW Plt Count [place] % (Auto) [place] # Baso # Seg Neutrophils % Seg Neutrophils # POC ABG pO2 253 H Sodium Carbon Dioxide BUN Creatinine Glucose POC Glucose 224 H 187 H NT-Pro-B Natriuret Pep Albumin - Diagnostic Findings Chest x-ray: image reviewed Assessment and Plan 73 y/o female, former smoker admitted with worsening dyspnea, found to have moderate left sided pleural effusion. 1. Agree with IV abx 2. Supplemental O2 3. Bedside thoracentesis.
--- NOTE | 2019-02-19 14:55 | Procedure Note ---
Date of procedure: 02/19/19 Pre-op diagnosis: Pleural effusion Post-op diagnosis: same Procedure: Left sided thoracentesis. Patient prepped and positioned. Using ultrasound guidance, fluid visualized and spot marked. Lidocaine used for numbing purposes. Once catheter introduced, 7 00cc of yellow serosanguinous fluid was removed with ease. patient tolerated procedure with no immediate complications. Will order repeat chest CT today. Anesthesia: local Surgeon: SHERYL SEE Estimated blood loss: none Pathology: none Specimen disposition: to lab Condition: stable Disposition: floor
--- NOTE | 2019-02-19 16:22 | Event Note ---
Date: 02/19/19 Patient seen and examined Presented with worsening shortness of breath and new development of left pleural effusion Status post thoracentesis today Sent out fluid for further study Will order repeat CT scan of chest today without contrast Continue supportive care and monitor clinically
[2019-02-19 18:30] LABS: INR 1.27 (0.87-1.13)
[2019-02-19] MEDS ORDERED: FUROSEMIDE 40 MG/4 ML INJ ONE (18:30)
--- NOTE | 2019-02-19 18:44 | Cat Scan Report ---
CT CHEST WITHOUT CONTRAST INDICATION / CLINICAL INFORMATION: pleural effusion. TECHNIQUE: Axial CT images were obtained through the chest without contrast. All CT scans at this location are p erformed using CT dose reduction for ALARA by means of automated exposure control. COMPARISON: 02/09/2019 CT chest FINDINGS: HEART: Normal heart size overall, although the left atrium is dilated and left ventricle may be mildl y enlarged. Multivessel coronary atherosclerosis is present. Small volume of pericardial fluid is see n, unchanged. THORACIC AORTA: Diffuse, mild atherosclerosis without aneurysm. MEDIASTINUM and NANCY: Multiple enlarged lymph nodes containing foci of calcification are again noted. LUNGS: Persistent consolidation of the left lower lobe. Gas previously seen in the cavity is no longe r present. There is a 1.1 cm solid nodule in the left upper lobe on series 2 image 45. Since previou s imaging, diffuse groundglass opacity and mild interlobular septal thickening has developed througho ut much of the right lung. PLEURA: In the brief interval a small right pleural effusion has developed. Minimal increase in volum e of the left pleural effusion, which is smaller than that on the right. No pneumothorax. UPPER ABDOMEN: Confluent body wall edema is noted at the flanks. SKELETAL SYSTEM: No significant abnormality. IMPRESSION: 1. Since 02/09/2019, interval development of groundglass opacity, interlobular septal thickening, and small effusion on the right side. These abnormalities may be due to volume overload and mild pulmonar y edema in the setting of congestive heart failure. 2. Mild dilatation of the left heart chambers. Trace pericardial fluid, stable. 3. Unchanged consolidation of the left lower lobe. The large intrapulmonary cavity now contains only fluid. 4. Separate solid 1.1 cm nodule in the left upper lobe, to be followed on future imaging. 5. Anasarca. Signer Name: Ankit Cheek MD Signed: 02/19/2019 6:40 PM Workstation Name: [id number]
[2019-02-19 19:01] LABS: Total Cells Counted 100 /mm3
[2019-02-19] MEDS: FUROSEMIDE 40 MG/4 ML INJ IV SCH (19:05)
[2019-02-20] MEDS: CEFEPIME/NS 2 GM/100 ML 2 GM/100 ML BAG IV SCH ×2 (05:47→17:41)
[2019-02-20] MEDS: FUROSEMIDE 40 MG/4 ML INJ IV SCH (05:47)
[2019-02-20 05:53] LABS: Basophils % (Auto) 0.1 % (0.0-1.8); Hematocrit 23.8 % (30.3-42.9); Hemoglobin 7.4 gm/dl (10.1-14.3); Lymphocytes # (Auto) 1.6 K/mm3 (1.2-5.4); Lymphocytes % (Auto) 8.8 % (13.4-35.0); Mean Corpuscular HGB Conc 31 % (30-34); Mean Corpuscular Volume 78 fl (79-97); Monocytes % (Auto) 5.5 % (0.0-7.3); Platelet Count 596 K/mm3 (140-440); Red Blood Count 3.07 M/mm3 (3.65-5.03); Red Cell Distribution Width 19.4 % (13.2-15.2)
[2019-02-20] MEDS ORDERED: VANCOMYCIN 750 MG in SODIUM CHLORIDE 0.9% 250ML 250 ML IV SCH (06:00)
[2019-02-20 06:24] LABS: Calcium 8.4 mg/dL (8.4-10.2)
[2019-02-20] MEDS ORDERED: VANCOMYCIN/NS 1 GM/250 ML 1 GM/250 ML BAG IV SCH (08:00)
[2019-02-20] MEDS: INSULIN REGULAR, HUMAN 100 UNITS/1 ML SUB-Q SCH ×4 (08:05→22:08)
--- NOTE | 2019-02-20 14:06 | Progress Note ---
Assessment and Plan / Acute hypoxic respiratory failure Possibly secondary to underlying pneumonia, left pleural effusion and CHF exacerbation. She has been placed on BiPAP - now weaned off s/p thoracentesis yesterday, 2-D echo showed EF of 30-35% /Pneumonia with sepsis, POA She has been started on empiric IV antibiotics, H CAP. We await blood culture results and results from the thoracentesis. /CHF (congestive heart failure) with acute exacerbation We will continue patient on routine home medications. Will monitor daily weight monitor input and output. 2-D echo showed EF of 30-35%, we'll continue Lasix / NEELIMA, acute on CKD? This appears chronic. Will monitor BUN and creatinine / DVT prophylaxis We will place on subcutaneous heparin. / Full code status Hospitalist Physical exam: GENERAL: well-developed elderly AAF lying on bed appeared to be in no discomfort. HEENT: Normocephalic. Atraumatic. No conjunctival congestion or icterus. Patient has moist mucous membranes. NECK: Supple. Trachea midline. CHEST/LUNGS: BS auscultated bilaterally, breathing nonlabored. + Left sided rhonchi. HEART/CARDIOVASCULAR: Regular in rate and rhythm. S1 and S2 positive. ABDOMEN: Abdomen is soft, nontender. Patient has normal bowel sounds. SKIN: There is no rash. Warm and dry. NEURO: No focal motor deficit. Follows command. MUSCULOSKELETAL: No joint effusion or tenderness. EXTRIMITY: No edema, no cyanosis or clubbing. PSYCH: Cooperative. Subjective Date of service: 02/20/19 Interval history: Patient seen and examined breathing improved but still SOB on exertion Denies any chest pain, tolerating diet Objective - Constitutional Vitals: Vital Signs - 12hr 02/20/19 02/20/19 02/20/19 03:00 04:00 04:24 Temperature Pulse Rate 92 H 82 Pulse Rate [ From Monitor] Respiratory 17 18 17 Rate Blood Pressure 130/106 134/70 O2 Sat by Pulse 98 98 100 Oximetry 02/20/19 02/20/19 02/20/19 04:29 05:00 06:01 Temperature 97.5 F L Pulse Rate 80 Pulse Rate [ From Monitor] Respiratory 16 23 Rate Blood Pressure 145/71 153/75 O2 Sat by Pulse 96 96 Oximetry 02/20/19 02/20/19 02/20/19 07:01 08:00 08:01 Temperature 98.5 F Pulse Rate 86 106 H Pulse Rate [ 96 H From Monitor] Respiratory 28 H 19 15 Rate Blood Pressure 153/75 156/87 O2 Sat by Pulse 99 96 96 Oximetry 02/20/19 02/20/19 02/20/19 09:00 10:00 11:10 Temperature 98.4 F Pulse Rate 93 H 96 H 96 H Pulse Rate [ From Monitor] Respiratory 19 42 H 18 Rate Blood Pressure 136/67 146/71 140/61 O2 Sat by Pulse 100 100 100 Oximetry 02/20/19 12:00 Temperature Pulse Rate Pulse Rate [ From Monitor] Respiratory 22 Rate Blood Pressure O2 Sat by Pulse 100 Oximetry - Labs CBC & Chem 7: 02/21/19 11:59 02/21/19 06:34 Labs: Abnormal lab results 02/19/19 02/19/19 02/19/19 Range/Units 17:49 18:22 22:24 WBC (4.5-11.0) K/mm3 RBC (3.65-5.03) M/mm3 Hgb (10.1-14.3) gm/dl Hct (30.3-42.9) % MCV (79-97) fl MCH (28-32) pg RDW (13.2-15.2) % Plt Count (140-440) K/mm3 Lymph % (Auto) (13.4-35.0) % [place] # (0.0-0.8) K/mm3 Seg Neutrophils % (40.0-70.0) % Seg Neutrophils # (1.8-7.7) K/mm3 PT 15.7 H (12.2-14.9) Sec. INR 1.27 H (0.87-1.13) Potassium (3.6-5.0) mmol/L Carbon Dioxide (22-30) mmol/L BUN (7-17) mg/dL Creatinine (0.7-1.2) mg/dL POC Glucose 239 H 170 H (70-105) 02/20/19 02/20/19 02/20/19 Range/Units 04:45 04:45 11:17 WBC 18.6 H (4.5-11.0) K/mm3 RBC 3.07 L (3.65-5.03) M/mm3 Hgb 7.4 L (10.1-14.3) gm/dl Hct 23.8 L (30.3-42.9) % MCV 78 L (79-97) fl MCH 24 L (28-32) pg RDW 19.4 H (13.2-15.2) % Plt Count 596 H (140-440) K/mm3 Lymph % (Auto) 8.8 L (13.4-35.0) % [place] # 1.0 H (0.0-0.8) K/mm3 Seg Neutrophils % 85.6 H (40.0-70.0) % Seg Neutrophils # 15.9 H (1.8-7.7) K/mm3 PT (12.2-14.9) Sec. INR (0.87-1.13) Potassium 5.2 H D (3.6-5.0) mmol/L Carbon Dioxide 19 L (22-30) mmol/L BUN 36 H (7-17) mg/dL Creatinine 1.6 H (0.7-1.2) mg/dL POC Glucose 160 H (70-105)
[2019-02-20] MEDS ORDERED: ACETAMINOPHEN 500 MG TAB PO PRN (17:08)
[2019-02-20] MEDS: ACETAMINOPHEN 325 MG TAB PO PRN (17:42)
--- NOTE | 2019-02-20 19:45 | Progress Note ---
Assessment and Plan Imp: 1. FARAZ atelectasis, suspect malignancy 2. Bilateral pleural effusions; the L effusion may be related to #1 but cannot r/o CHF-related 3. Dilated CMP 4. Pulm HTN 5. Acute respiratory failure, hypoxia Rec: 1. F/u PFA; hopefully cytology was sent on the L effusion 2. Agree w/ Lasix; would consider cardiology eval. given depressed LVEF 3. Add Solumedrol as she is wheezing on exam 4. D/c Vanco; cont. other ABX same for now 5. Re: FARAZ atelectasis, this is malignancy until proven otherwise; bronch negative but likely external compression of the airway by tumor; believe outpatient PET would be the next best step Plan of care reviewed w/ patient, she understands/agrees Subjective Date of service: 02/20/19 Principal diagnosis: Pleural effusion Interval history: No events. SOB better after thora. On O2 NC. No new complaints. Active Medications Acetaminophen (Tylenol) 650 mg PO Q6H PRN PRN Reason: Pain, Mild (1-3) Last Admin: 02/20/19 17:42 Dose: 650 mg Documented by: Dextrose (D50w (25gm) Syringe) 0 ml IV Q30MIN PRN; Protocol PRN Reason: Hypoglycemia Furosemide (Lasix) 40 mg IV DAILY [facility] Cefepime HCl (Cefepime/Ns 2 Gm/100 Ml) 2 gm in 100 mls @ 200 mls/hr IV Q12H [facility]; Protocol Last Admin: 02/20/19 17:41 Dose: 200 mls/hr Documented by: Levofloxacin/Dextrose (Levaquin 750mg/150ml) 750 mg in 150 mls @ 100 mls/hr IV Q48HR [facility]; Protocol Last Admin: 02/19/19 11:50 Dose: 100 mls/hr Documented by: Insulin Human Regular (Humulin R) 0 units SUB-Q ACHS [facility]; Protocol Last Admin: 02/20/19 17:10 Dose: Not Given Documented by: Magnesium Hydroxide (Milk Of Magnesia) 30 ml PO Q4H PRN PRN Reason: Constipation Methylprednisolone Sodium Succinate (Solu-Medrol) 40 mg IV Q8HR [facility] Morphine Sulfate (Morphine) 2 mg IV Q4H PRN PRN Reason: Pain, Moderate (4-6) Sodium Chloride (Sodium Chloride Flush Syringe 10 Ml) 10 ml IV BID [facility] Last Admin: 02/20/19 09:19 Dose: 10 ml Documented by: Sodium Chloride (Sodium Chloride Flush Syringe 10 Ml) 10 ml IV PRN PRN PRN Reason: LINE FLUSH Objective Vital Signs - 12hr 02/20/19 02/20/19 02/20/19 08:00 08:01 09:00 Temperature 98.5 F Pulse Rate 106 H 93 H Pulse Rate [ 96 H From Monitor] Respiratory 19 15 19 Rate Blood Pressure 156/87 136/67 O2 Sat by Pulse 96 96 100 Oximetry 02/20/19 02/20/19 02/20/19 10:00 11:10 12:00 Temperature 98.4 F Pulse Rate 96 H 96 H Pulse Rate [ From Monitor] Respiratory 42 H 18 22 Rate Blood Pressure 146/71 140/61 O2 Sat by Pulse 100 100 100 Oximetry 02/20/19 02/20/19 02/20/19 12:45 15:31 17:42 Temperature 97.8 F Pulse Rate 66 91 H Pulse Rate [ From Monitor] Respiratory 23 18 20 Rate Blood Pressure 136/67 144/70 O2 Sat by Pulse 97 Oximetry Constitutional: no acute distress, alert Eyes: non-icteric ENT: oropharynx moist Neck: supple Effort: normal Ascultation: Bilateral: diminished breath sounds (bases), wheezes Cardiovascular: regular rate and rhythm (no mrg) Gastrointestinal: normoactive bowel sounds, soft, non-tender, non-distended Integumentary: normal Extremities: no cyanosis, no edema, pink and warm Neurologic: normal mental status, non-focal exam, pupils equal and round Psychiatric: mood appropriate, affect normal CBC and BMP: 02/20/19 04:45 02/20/19 04:45 ABG, PT/INR, D-dimer: ABG POC ABG pH 7.377 (7.35-7.45) 02/18/19 23:44 POC ABG pCO2 35.6 (35-45) 02/18/19 23:44 POC ABG pO2 253 (80-105) H 02/18/19 23:44 POC ABG HCO3 20.9 (22-26 mml/L) 02/18/19 23:44 POC ABG Total CO2 22 (23-27mmol/L) 02/18/19 23:44 POC ABG O2 Sat 100 11/14/19 23:44 PT/INR, D-dimer PT 15.7 Sec. (12.2-14.9) H 02/19/19 17:49 INR 1.27 (0.87-1.13) H 02/19/19 17:49 Abnormal lab findings: Abnormal Labs 02/18/19 02/18/19 02/18/19 23:11 23:11 23:11 WBC 14.5 H RBC 3.33 L Hgb 8.3 L Hct 26.2 L MCV MCH 25 L RDW 19.4 H Plt Count 582 H Lymph % (Auto) [place] % (Auto) 10.5 H [place] # 1.5 H Baso # 0.2 H Seg Neutrophils % 73.2 H Seg Neutrophils # 10.6 H PT INR POC ABG pO2 Sodium 136 L Potassium Carbon Dioxide 18 L BUN 26 H Creatinine 1.3 H Glucose 118 H POC Glucose NT-Pro-B Natriuret Pep 4784 H Albumin 2.4 L 02/18/19 02/19/19 02/19/19 23:44 08:09 12:03 WBC RBC Hgb Hct MCV MCH RDW Plt Count Lymph % (Auto) [place] % (Auto) [place] # Baso # Seg Neutrophils % Seg Neutrophils # PT INR POC ABG pO2 253 H Sodium Potassium Carbon Dioxide BUN Creatinine Glucose POC Glucose 224 H 187 H NT-Pro-B Natriuret Pep Albumin 02/19/19 02/19/19 02/19/19 17:49 18:22 22:24 WBC RBC Hgb Hct MCV MCH RDW Plt Count Lymph % (Auto) [place] % (Auto) [facility] # Baso # Seg Neutrophils % Seg Neutrophils # PT 15.7 H INR 1.27 H POC ABG pO2 Sodium Potassium Carbon Dioxide BUN Creatinine Glucose POC Glucose 239 H 170 H NT-Pro-B Natriuret Pep Albumin 02/20/19 02/20/19 02/20/19 04:45 04:45 11:17 WBC 18.6 H RBC 3.07 L Hgb 7.4 L Hct 23.8 L MCV 78 L MCH 24 L RDW 19.4 H Plt Count 596 H Lymph % (Auto) 8.8 L [place] % (Auto) [place] # 1.0 H Baso # Seg Neutrophils % 85.6 H Seg Neutrophils # 15.9 H PT INR POC ABG pO2 Sodium Potassium 5.2 H D Carbon Dioxide 19 L BUN 36 H Creatinine 1.6 H Glucose POC Glucose 160 H NT-Pro-B Natriuret Pep Albumin 02/20/19 15:39 WBC RBC Hgb Hct MCV MCH RDW Plt Count Lymph % (Auto) [place] % (Auto) [facility] # Baso # Seg Neutrophils % Seg Neutrophils # PT INR POC ABG pO2 Sodium Potassium Carbon Dioxide BUN Creatinine Glucose POC Glucose 147 H NT-Pro-B Natriuret Pep Albumin Chest x-ray: report reviewed, image reviewed CT scan - chest: report reviewed, image reviewed
[2019-02-20] MEDS: methylPREDNISolone Sod Succinate 40 MG/1 ML INJ IV SCH (22:23)
[2019-02-20] MEDS ORDERED: ALBUTEROL 2.5 MG/3 ML NEBU IH PRN (23:03)
[2019-02-21] MEDS: ALBUTEROL 2.5 MG/3 ML NEBU IH PRN (01:35)
[2019-02-21] MEDS: methylPREDNISolone Sod Succinate 40 MG/1 ML INJ IV SCH (05:16)
[2019-02-21] MEDS: CEFEPIME/NS 2 GM/100 ML 2 GM/100 ML BAG IV SCH ×2 (05:16→17:47)
[2019-02-21 08:28] LABS: Calcium 8.4 mg/dL (8.4-10.2)
[2019-02-21] MEDS: INSULIN REGULAR, HUMAN 100 UNITS/1 ML SUB-Q SCH ×4 (09:22→22:01)
[2019-02-21] MEDS: FUROSEMIDE 40 MG/4 ML INJ IV SCH (09:23)
[2019-02-21] MEDS ORDERED: SODIUM POLYSTYRENE 15 GM/60 ML ORAL LIQD PO ONE (11:28)
[2019-02-21 12:13] LABS: Hematocrit 24.7 % (30.3-42.9); Mean Corpuscular HGB Conc 32 % (30-34); Mean Corpuscular Volume 78 fl (79-97); Platelet Count 614 K/mm3 (140-440); Red Blood Count 3.19 M/mm3 (3.65-5.03); Red Cell Distribution Width 19.4 % (13.2-15.2)
[2019-02-21] MEDS ORDERED: NON-FORMULARY EACH (Allopurinol 100 MG) PO SCH (12:15)
[2019-02-21] MEDS: hydrALAZINE 25 MG TAB PO SCH ×2 (13:57→22:01)
[2019-02-21] MEDS: allopurinoL 100 MG TAB PO SCH (13:58)
--- NOTE | 2019-02-21 13:58 | Progress Note ---
Assessment and Plan / Acute hypoxic respiratory failure Possibly secondary to underlying pneumonia, left pleural effusion and CHF exacerbation. She has been placed on BiPAP - now weaned off s/p thoracentesis on 02/19 drained 700cc fluid, 2-D echo showed EF of 30-35% /Pneumonia with sepsis, POA She has been started on empiric IV antibiotics, H CAP. We await blood culture results and results from the thoracentesis. /CHF (congestive heart failure) with acute exacerbation We will continue patient on routine home medications. Will monitor daily weight monitor input and output. 2-D echo showed EF of 30-35%, we'll continue Lasix Will consult cardiology / NEELIMA, acute on CKD? This appears chronic. Will monitor BUN and creatinine, consult nephrology / DVT prophylaxis We will place on subcutaneous heparin. / Full code status Hospitalist Physical exam: GENERAL: well-developed elderly AAF lying on bed appeared to be in no discomfort. HEENT: Normocephalic. Atraumatic. No conjunctival congestion or icterus. Patient has moist mucous membranes. NECK: Supple. Trachea midline. CHEST/LUNGS: BS auscultated bilaterally, breathing nonlabored. + Left sided rhonchi. HEART/CARDIOVASCULAR: Regular in rate and rhythm. S1 and S2 positive. ABDOMEN: Abdomen is soft, nontender. Patient has normal bowel sounds. SKIN: There is no rash. Warm and dry. NEURO: No focal motor deficit. Follows command. MUSCULOSKELETAL: No joint effusion or tenderness. EXTRIMITY: No edema, no cyanosis or clubbing. PSYCH: Cooperative. Subjective Date of service: 02/21/19 Principal diagnosis: Pleural effusion Interval history: Patient seen and examined breathing improved but still SOB on exertion Denies any chest pain, tolerating diet Objective - Constitutional Vitals: Vital Signs - 12hr 02/21/19 02/21/19 02/21/19 04:26 07:28 11:33 Temperature 98.7 F 98.9 F 98.2 F Pulse Rate 99 H 98 H 98 H Respiratory 18 18 18 Rate Blood Pressure 146/73 164/84 147/77 O2 Sat by Pulse 98 97 99 Oximetry - Labs CBC & Chem 7: 02/21/19 11:59 02/22/19 00:44 Labs: Abnormal lab results 02/20/19 02/20/19 02/21/19 Range/Units 15:39 20:37 06:34 WBC (4.5-11.0) K/mm3 RBC (3.65-5.03) M/mm3 Hgb (10.1-14.3) gm/dl Hct (30.3-42.9) % MCV (79-97) fl MCH (28-32) pg RDW (13.2-15.2) % Plt Count (140-440) K/mm3 Sodium 135 L (137-145) mmol/L Potassium 5.3 H (3.6-5.0) mmol/L Carbon Dioxide 17 L (22-30) mmol/L BUN 36 H (7-17) mg/dL Creatinine 1.5 H (0.7-1.2) mg/dL Glucose 179 H (65-100) mg/dL POC Glucose 147 H 146 H (70-105) 02/21/19 02/21/19 02/21/19 Range/Units 07:39 11:45 11:59 WBC 13.6 H (4.5-11.0) K/mm3 RBC 3.19 L (3.65-5.03) M/mm3 Hgb 8.0 L (10.1-14.3) gm/dl Hct 24.7 L (30.3-42.9) % MCV 78 L (79-97) fl MCH 25 L (28-32) pg RDW 19.4 H (13.2-15.2) % Plt Count 614 H (140-440) K/mm3 Sodium (137-145) mmol/L Potassium (3.6-5.0) mmol/L Carbon Dioxide (22-30) mmol/L BUN (7-17) mg/dL Creatinine (0.7-1.2) mg/dL Glucose (65-100) mg/dL POC Glucose 184 H 268 H (70-105)
--- NOTE | 2019-02-21 15:35 | Progress Note ---
Assessment and Plan Imp: 1. FARAZ atelectasis, suspect malignancy 2. Bilateral pleural effusions; the L effusion may be related to #1 but cannot r/o CHF-related 3. Dilated CMP 4. Pulm HTN 5. Acute respiratory failure, hypoxia 6. Hyperkalemia Rec: 1. F/u PFA; hopefully cytology was sent on the L effusion 2. Agree w/ Lasix; would consider cardiology eval. given depressed LVEF 3. Added Solumedrol as she is wheezing on exam 4. D/c Vanco; cont. other ABX same for now 5. Hyperkalemia per IMS 6. Re: FARAZ atelectasis, this is malignancy until proven otherwise; bronch negative but likely external compression of the airway by tumor; believe outpatient PET would be the next best step, and possibly EBUS thereafter Plan of care reviewed w/ patient, she understands/agrees Subjective Date of service: 02/21/19 Principal diagnosis: Pleural effusion Interval history: No events. SOB better after thora. On O2 NC. No new complaints. Active Medications Acetaminophen (Tylenol) 650 mg PO Q6H PRN PRN Reason: Pain, Mild (1-3) Last Admin: 02/20/19 17:42 Dose: 650 mg Documented by: Albuterol (Proventil) 2.5 mg IH Q3HRT PRN PRN Reason: Shortness Of Breath Last Admin: 02/21/19 01:35 Dose: 2.5 mg Documented by: Allopurinol (Zyloprim) 100 mg PO QDAY [facility] Last Admin: 02/21/19 13:58 Dose: 100 mg Documented by: Atorvastatin Calcium (Lipitor) 40 mg PO QHS [facility] Cilostazol (Pletal) 100 mg PO BID [facility] Dextrose (D50w (25gm) Syringe) 0 ml IV Q30MIN PRN; Protocol PRN Reason: Hypoglycemia Ferrous Sulfate (Feosol) 325 mg PO QDAY [facility] Furosemide (Lasix) 40 mg IV DAILY [facility] Last Admin: 02/21/19 09:23 Dose: 40 mg Documented by: Hydralazine HCl (Apresoline) 25 mg PO Q8HR [facility] Last Admin: 02/21/19 13:57 Dose: 25 mg Documented by: Cefepime HCl (Cefepime/Ns 2 Gm/100 Ml) 2 gm in 100 mls @ 200 mls/hr IV Q12H [facility]; Protocol Last Admin: 02/21/19 05:16 Dose: 200 mls/hr Documented by: Levofloxacin/Dextrose (Levaquin 750mg/150ml) 750 mg in 150 mls @ 100 mls/hr IV Q48HR [facility]; Protocol Last Admin: 02/21/19 09:23 Dose: 100 mls/hr Documented by: Insulin Human Regular (Humulin R) 0 units SUB-Q ACHS [facility]; Protocol Last Admin: 02/21/19 11:54 Dose: 1 units Documented by: Magnesium Hydroxide (Milk Of Magnesia) 30 ml PO Q4H PRN PRN Reason: Constipation Methylprednisolone Sodium Succinate (Solu-Medrol) 40 mg IV Q24HR [facility] Metoprolol Tartrate (Metoprolol) 50 mg PO BID [facility] Miscellaneous Medication (Aspirin) 325 mg PO DAILY [facility] Morphine Sulfate (Morphine) 2 mg IV Q4H PRN PRN Reason: Pain, Moderate (4-6) Last Admin: 02/21/19 03:33 Dose: 2 mg Documented by: Pantoprazole Sodium (Protonix) 40 mg PO QDAY [facility] Sodium Chloride (Sodium Chloride Flush Syringe 10 Ml) 10 ml IV BID [facility] Last Admin: 02/21/19 09:24 Dose: 10 ml Documented by: Sodium Chloride (Sodium Chloride Flush Syringe 10 Ml) 10 ml IV PRN PRN PRN Reason: LINE FLUSH Objective Vital Signs - 12hr 02/21/19 02/21/19 02/21/19 04:26 07:28 10:00 Temperature 98.7 F 98.9 F Pulse Rate 99 H 98 H 91 H Respiratory 18 18 Rate Blood Pressure 146/73 164/84 O2 Sat by Pulse 98 97 Oximetry 02/21/19 02/21/19 11:33 13:57 Temperature 98.2 F Pulse Rate 98 H 98 H Respiratory 18 Rate Blood Pressure 147/77 147/77 O2 Sat by Pulse 99 Oximetry Constitutional: no acute distress, alert Eyes: non-icteric ENT: oropharynx moist Neck: supple Effort: normal Ascultation: Bilateral: diminished breath sounds (bases), wheezes Cardiovascular: regular rate and rhythm (no mrg) Gastrointestinal: normoactive bowel sounds, soft, non-tender, non-distended Integumentary: normal Extremities: no cyanosis, no edema, pink and warm Neurologic: normal mental status, non-focal exam, pupils equal and round Psychiatric: mood appropriate, affect normal CBC and BMP: 02/21/19 11:59 02/21/19 06:34 ABG, PT/INR, D-dimer: ABG POC ABG pH 7.377 (7.35-7.45) 02/18/19 23:44 POC ABG pCO2 35.6 (35-45) 02/18/19 23:44 POC ABG pO2 253 (80-105) H 02/18/19 23:44 POC ABG HCO3 20.9 (22-26 mml/L) 02/18/19 23:44 POC ABG Total CO2 22 (23-27mmol/L) 02/18/19 23:44 POC ABG O2 Sat 100 02/18/19 23:44 PT/INR, D-dimer PT 15.7 Sec. (12.2-14.9) H 02/19/19 17:49 INR 1.27 (0.87-1.13) H 02/19/19 17:49 Abnormal lab findings: Abnormal Labs 02/18/19 02/18/19 02/18/19 23:11 23:11 23:11 WBC 14.5 H RBC 3.33 L Hgb 8.3 L Hct 26.2 L MCV MCH 25 L RDW 19.4 H Plt Count 582 H Lymph % (Auto) [place] % (Auto) 10.5 H [place] # 1.5 H Baso # 0.2 H Seg Neutrophils % 73.2 H Seg Neutrophils # 10.6 H PT INR POC ABG pO2 Sodium 136 L Potassium Carbon Dioxide 18 L BUN 26 H Creatinine 1.3 H Glucose 118 H POC Glucose NT-Pro-B Natriuret Pep 4784 H Albumin 2.4 L 02/18/19 02/19/19 02/19/19 23:44 08:09 12:03 WBC RBC Hgb Hct MCV MCH RDW Plt Count Lymph % (Auto) [place] % (Auto) [place] # Baso # Seg Neutrophils % Seg Neutrophils # PT INR POC ABG pO2 253 H Sodium Potassium Carbon Dioxide BUN Creatinine Glucose POC Glucose 224 H 187 H NT-Pro-B Natriuret Pep Albumin 02/19/19 02/19/19 02/19/19 17:49 18:22 22:24 WBC RBC Hgb Hct MCV MCH RDW Plt Count Lymph % (Auto) [place] % (Auto) [place] # Baso # Seg Neutrophils % Seg Neutrophils # PT 15.7 H INR 1.27 H POC ABG pO2 Sodium Potassium Carbon Dioxide BUN Creatinine Glucose POC Glucose 239 H 170 H NT-Pro-B Natriuret Pep Albumin 02/20/19 02/20/19 02/20/19 04:45 04:45 11:17 WBC 18.6 H RBC 3.07 L Hgb 7.4 L Hct 23.8 L MCV 78 L MCH 24 L RDW 19.4 H Plt Count 596 H Lymph % (Auto) 8.8 L [place] % (Auto) [place] # 1.0 H Baso # Seg Neutrophils % 85.6 H Seg Neutrophils # 15.9 H PT INR POC ABG pO2 Sodium Potassium 5.2 H D Carbon Dioxide 19 L BUN 36 H Creatinine 1.6 H Glucose POC Glucose 160 H NT-Pro-B Natriuret Pep Albumin 02/20/19 02/20/19 02/21/19 15:39 20:37 06:34 WBC RBC Hgb Hct MCV MCH RDW Plt Count Lymph % (Auto) [place] % (Auto) [place] # Baso # Seg Neutrophils % Seg Neutrophils # PT INR POC ABG pO2 Sodium 135 L Potassium 5.3 H Carbon Dioxide 17 L BUN 36 H Creatinine 1.5 H Glucose 179 H POC Glucose 147 H 146 H NT-Pro-B Natriuret Pep Albumin 02/21/19 02/21/19 02/21/19 07:39 11:45 11:59 WBC 13.6 H RBC 3.19 L Hgb 8.0 L Hct 24.7 L MCV 78 L MCH 25 L RDW 19.4 H Plt Count 614 H Lymph % (Auto) [place] % (Auto) [place] # Baso # Seg Neutrophils % Seg Neutrophils # PT INR POC ABG pO2 Sodium Potassium Carbon Dioxide BUN Creatinine Glucose POC Glucose 184 H 268 H NT-Pro-B Natriuret Pep Albumin Chest x-ray: report reviewed, image reviewed CT scan - chest: report reviewed, image reviewed
[2019-02-21] MEDS ORDERED: CILOSTAZOL 100 MG PO SCH (22:00)
[2019-02-21] MEDS ORDERED: METOPROLOL TARTRATE 50 MG PO SCH (22:00)
[2019-02-21] MEDS: CILOSTAZOL 100 MG TAB PO SCH (22:01)
[2019-02-21] MEDS: METOPROLOL TARTRATE 50 MG TAB PO SCH (22:01)
[2019-02-22 01:29] LABS: Calcium 8.1 mg/dL (8.4-10.2)
[2019-02-22] MEDS: hydrALAZINE 25 MG TAB PO SCH ×2 (08:00→21:56)
[2019-02-22] MEDS: CEFEPIME/NS 2 GM/100 ML 2 GM/100 ML BAG IV SCH ×2 (08:00→21:57)
[2019-02-22] MEDS: ACETAMINOPHEN 325 MG TAB PO PRN (08:10)
[2019-02-22] MEDS: ALBUTEROL 2.5 MG/3 ML NEBU IH PRN (08:12)
[2019-02-22] MEDS: INSULIN REGULAR, HUMAN 100 UNITS/1 ML SUB-Q SCH ×2 (09:40→22:05)
[2019-02-22] MEDS ORDERED: NON-FORMULARY EACH (Ferrous Sulfate 325 MG) PO SCH (10:00)
--- NOTE | 2019-02-22 10:36 | Consultation ---
History of Present Illness - Reason for Consult Consult date: 02/22/19 acute renal failure, chronic renal failure - History of Present Illness The patient is a 73 YO female with history significant for DM type 2, HTN, CAD and Gout who presented to [facility] ED on 02/18/2019 with c/o worsening shortness of breath. She was recently treated at this facility with similar symptoms and discharged on 02/16. During the prior admission she was found to have cavitary lesion in the left upper lobe was placed on antibiotics. She was also ruled out for TB. In the emergency room she was placed on BiPAP. Upon further evaluation she was found to have moderate L pleural effusion. Patient admits dry cough. No h/o fever, chills, N, V, D, abd pain, dizziness, syncope or cp. Creatinine is 1.5 today. Potassium level was 5.3 yesterday improved today. Nephrology was consulted for further evaluation of NEELIMA. Past History Past Medical History: CAD, diabetes, GERD, hypertension, other (Gout) Past Surgical History: No surgical history Social history: smoking Family history: cancer, diabetes Medications and Allergies Allergies Allergy/AdvReac Type Severity Reaction Status Date / Time ibuprofen Allergy Unknown Verified 02/18/19 23:29 Penicillins Allergy Unknown Verified 02/18/19 23:29 Home Medications Medication Instructions Recorded Confirmed Last Taken Type Allopurinol 100 mg PO DAILY 12/26/18 02/19/19 Unknown History Aspirin 325 mg PO DAILY 12/26/18 02/19/19 Unknown History Cilostazol 100 mg PO BID 12/26/18 02/19/19 Unknown History Ferrous Sulfate 325 mg PO DAILY 12/26/18 02/19/19 Unknown History Metoprolol Tartrate 50 mg PO BID #60 12/29/18 02/19/19 Unknown Rx Ipratropium (Nf) [Atrovent HFA 2 puff IH Q6HR PRN #1 inha 01/11/19 02/19/19 Unknown Rx 17MCG/PUFF] Acetaminophen/Codeine [Tylenol 1 tab PO Q6H PRN #12 tab 01/21/19 02/19/19 Unknown Rx /Codeine # 3 tab] AtorvaSTATin [Lipitor] 40 mg PO QHS 02/09/19 02/19/19 Unknown History Pantoprazole [Protonix TAB] 40 mg PO QDAY #30 tablet 02/16/19 02/19/19 Unknown Rx cefUROXime [Ceftin] 500 mg PO Q12H 21 Days tablet 02/16/19 02/19/19 Unknown Rx glipiZIDE [Glucotrol] 5 mg PO BID #60 tablet 02/16/19 02/19/19 Unknown Rx hydrALAZINE [Apresoline TAB] 25 mg PO Q8HR #90 tablet 02/16/19 02/19/19 Unknown Rx metroNIDAZOLE [Flagyl] 500 mg PO Q8HR 21 Days 02/16/19 02/19/19 Unknown Rx Active Meds: Active Medications Acetaminophen (Tylenol) 650 mg PO Q6H PRN PRN Reason: Pain, Mild (1-3) Last Admin: 02/22/19 08:10 Dose: 650 mg Documented by: Albuterol (Proventil) 2.5 mg IH Q3HRT PRN PRN Reason: Shortness Of Breath Last Admin: 02/22/19 08:12 Dose: 2.5 mg Documented by: Allopurinol (Zyloprim) 100 mg PO QDAY [facility] Last Admin: 02/21/19 13:58 Dose: 100 mg Documented by: Atorvastatin Calcium (Lipitor) 40 mg PO QHS [facility] Last Admin: 02/21/19 22:01 Dose: 40 mg Documented by: Cilostazol (Pletal) 100 mg PO BID [facility] Last Admin: 02/21/19 22:01 Dose: 100 mg Documented by: Dextrose (D50w (25gm) Syringe) 0 ml IV Q30MIN PRN; Protocol PRN Reason: Hypoglycemia Ferrous Sulfate (Feosol) 325 mg PO QDAY [facility] Furosemide (Lasix) 40 mg IV DAILY [facility] Last Admin: 02/21/19 09:23 Dose: 40 mg Documented by: Hydralazine HCl (Apresoline) 25 mg PO Q8HR [facility] Last Admin: 02/22/19 08:00 Dose: 25 mg Documented by: Cefepime HCl (Cefepime/Ns 2 Gm/100 Ml) 2 gm in 100 mls @ 200 mls/hr IV Q12H [facility]; Protocol Last Admin: 02/22/19 08:00 Dose: 200 mls/hr Documented by: Levofloxacin/Dextrose (Levaquin 750mg/150ml) 750 mg in 150 mls @ 100 mls/hr IV Q48HR [facility]; Protocol Last Admin: 02/21/19 09:23 Dose: 100 mls/hr Documented by: Insulin Human Regular (Humulin R) 0 units SUB-Q ACHS [facility]; Protocol Last Admin: 02/22/19 09:40 Dose: Not Given Documented by: Magnesium Hydroxide (Milk Of Magnesia) 30 ml PO Q4H PRN PRN Reason: Constipation Methylprednisolone Sodium Succinate (Solu-Medrol) 40 mg IV Q24HR [facility] Metoprolol Tartrate (Metoprolol) 50 mg PO BID [facility] Last Admin: 02/21/19 22:01 Dose: 50 mg Documented by: Miscellaneous Medication (Aspirin) 325 mg PO DAILY [facility] Morphine Sulfate (Morphine) 2 mg IV Q4H PRN PRN Reason: Pain, Moderate (4-6) Last Admin: 02/21/19 03:33 Dose: 2 mg Documented by: Pantoprazole Sodium (Protonix) 40 mg PO QDAY [facility] Sodium Chloride (Sodium Chloride Flush Syringe 10 Ml) 10 ml IV BID [facility] Last Admin: 02/21/19 22:02 Dose: 10 ml Documented by: Sodium Chloride (Sodium Chloride Flush Syringe 10 Ml) 10 ml IV PRN PRN PRN Reason: LINE FLUSH Review of Systems Constitutional: no weight loss, no weight gain, no fever, no chills, no anorexia, no fatigue, no weakness, no poor appetite Breasts: deferred Cardiovascular: edema, shortness of breath, dyspnea on exertion, high blood pressure, leg edema, decreased exercise tolerance, no chest pain, no orthopnea, no palpitations, no rapid/irregular heart beat, no syncope, no lightheadedness Respiratory: cough, shortness of breath, dyspnea on exertion, no cough with sputum, no hemoptysis, no wheezing Gastrointestinal: no abdominal pain, no nausea, no vomiting, no diarrhea, no melena Genitourinary Female: no dysuria, no hematuria Rectal: no bleeding Integumentary: no rash, no sores, no wounds, no jaundice Neurological: no paralysis, no weakness, no convulsions, no aphasia, no change in speech, no change in mentation, no confusion Exam - Vital Signs Vital signs: Vital Signs Temp Pulse Resp BP Pulse Ox 97.4 F L 101 H 22 187/87 87 02/18/19 22:48 02/18/19 22:48 02/18/19 22:48 02/18/19 22:48 02/18/19 22:48 - General Appearance General appearance: well-developed, well-nourished, appears stated age, other (no distress) EENT: ATNC, PERRL, mucous membranes moist, hearing intact, vision intact Neck: Present: neck supple, trachea midline Respiratory: Ronchi Heart: regular, S1S2, no murmurs Gastrointestinal: Present: normoactive bowel sounds. Absent: tenderness, dis tended Integumentary: no rash, warm and dry Neurologic: no focal deficit, no asterixis Musculoskeletal: Present: other (trace LE edema noted) Psychiatric: cooperative Results - Lab Results 02/21/19 11:59 02/22/19 00:44 Most recent lab results Calcium 8.1 mg/dL (8.4-10.2) L 02/22/19 00:44 Assessment and Plan 1. Acute kidney injury: Mild NEELIMA superimposed on CKD stage 3, suspect vasomotor insult. Renal function is close to her baseline. Monitor renal function. Avoid nephrotoxic agents. Meds dosage based on GFR. 2. FEN: Hyperkalemia, improved. Metabolic acidosis, monitor. Monitor lytes. 3. Acute hypoxic respiratory failure: Possibly secondary to underlying pneumonia, left pleural effusion and CHF exacerbation. 4. Left lung cavitating lung lesion and L pleural effusion: Followed by Pulmonary. 5. Decompaensated CHF. 6. H/o CAD. 7. DM-2. 8. Hypertension: Monitor BP. 9. Anemia: POA.
--- NOTE | 2019-02-22 10:58 | Consultation ---
History of Present Illness Consult date: 02/22/19 Requesting physician: ZULEIMA HORNE Consult reason: congestive heart failure History of present illness: The pt is a 73-year-old female with a past medical history of CAD s/p ? AMI with PCI in 2008 and 2012 in [place] (per pt report), HTN, DM, tobacco use (recently quit smoking). She is previously unknown to our practice. She presented with c/o chest pain, SOB, HAMILTON, orthopnea, cough. She was recently discharged from [facility] with similar symptoms. During that hospitalization, she was found to have left cavitary lesion and possible lung mass (infection v. malignancy), TB ruled out. Following arrival on this admission, she was found to have large left pleural effusion and underwent left sided thoracentesis with 700cc of yellow serosanguinous fluid removed on Friday02/19/2019. She initially required BiPAP, she is on O2 via [place] on evaluation. She states that she has been experiencing exertional chest pain for the past several weeks. She describes her chest pain is a midsternal aching which radiates down her right arm. The pain is associated with progressively worsening HAMILTON. Echo done 02/19/2019 showed EF 30- 35%, impaired relaxation, mild MR and TR, RVSP 46mmHg, basal anterior, mid anterior and apical anterior wall segments hypokinetic, mid inferoseptal and apical septal wall segments akinetic. Cardiology has been consulted for HF. Past History Past Medical History: CAD, diabetes, hypertension, other (Gout) Past Surgical History: PTCA Social history: smoking Family history: cancer, diabetes Medications and Allergies Allergies Allergy/AdvReac Type Severity Reaction Status Date / Time ibuprofen Allergy Unknown Verified 02/18/19 23:29 Penicillins Allergy Unknown Verified 02/18/19 23:29 Home Medications Medication Instructions Recorded Confirmed Last Taken Type Allopurinol 100 mg PO DAILY 12/26/18 02/19/19 Unknown History Aspirin 325 mg PO DAILY 12/26/18 02/19/19 Unknown History Cilostazol 100 mg PO BID 12/26/18 02/19/19 Unknown History Ferrous Sulfate 325 mg PO DAILY 12/26/18 02/19/19 Unknown History Metoprolol Tartrate 50 mg PO BID #60 12/29/18 02/19/19 Unknown Rx Ipratropium (Nf) [Atrovent HFA 2 puff IH Q6HR PRN #1 inha 01/11/19 02/19/19 Unknown Rx 17MCG/PUFF] Acetaminophen/Codeine [Tylenol 1 tab PO Q6H PRN #12 tab 01/21/19 02/19/19 Unknown Rx /Codeine # 3 tab] AtorvaSTATin [Lipitor] 40 mg PO QHS 02/09/19 02/19/19 Unknown History Pantoprazole [Protonix TAB] 40 mg PO QDAY #30 tablet 02/16/19 02/19/19 Unknown Rx cefUROXime [Ceftin] 500 mg PO Q12H 21 Days tablet 02/16/19 02/19/19 Unknown Rx glipiZIDE [Glucotrol] 5 mg PO BID #60 tablet 02/16/19 02/19/19 Unknown Rx hydrALAZINE [Apresoline TAB] 25 mg PO Q8HR #90 tablet 02/16/19 02/19/19 Unknown Rx metroNIDAZOLE [Flagyl] 500 mg PO Q8HR 21 Days 02/16/19 02/19/19 Unknown Rx Active Meds: Active Medications Acetaminophen (Tylenol) 650 mg PO Q6H PRN PRN Reason: Pain, Mild (1-3) Last Admin: 02/22/19 08:10 Dose: 650 mg Documented by: Albuterol (Proventil) 2.5 mg IH Q3HRT PRN PRN Reason: Shortness Of Breath Last Admin: 02/22/19 08:12 Dose: 2.5 mg Documented by: Allopurinol (Zyloprim) 100 mg PO QDAY [facility] Last Admin: 02/21/19 13:58 Dose: 100 mg Documented by: Aspirin (Ecotrin) 325 mg PO QDAY [facility] Atorvastatin Calcium (Lipitor) 40 mg PO QHS [facility] Last Admin: 02/21/19 22:01 Dose: 40 mg Documented by: Cilostazol (Pletal) 100 mg PO BID [facility] Last Admin: 02/21/19 22:01 Dose: 100 mg Documented by: Dextrose (D50w (25gm) Syringe) 0 ml IV Q30MIN PRN; Protocol PRN Reason: Hypoglycemia Ferrous Sulfate (Feosol) 325 mg PO QDAY [facility] Furosemide (Lasix) 40 mg IV DAILY [facility] Last Admin: 02/21/19 09:23 Dose: 40 mg Documented by: Hydralazine HCl (Apresoline) 25 mg PO Q8HR [facility] Last Admin: 02/22/19 08:00 Dose: 25 mg Documented by: Cefepime HCl (Cefepime/Ns 2 Gm/100 Ml) 2 gm in 100 mls @ 200 mls/hr IV Q12H [facility]; Protocol Last Admin: 02/22/19 08:00 Dose: 200 mls/hr Documented by: Levofloxacin/Dextrose (Levaquin 750mg/150ml) 750 mg in 150 mls @ 100 mls/hr IV Q48HR [facility]; Protocol Last Admin: 02/21/19 09:23 Dose: 100 mls/hr Documented by: Insulin Human Regular (Humulin R) 0 units SUB-Q ACHS [facility]; Protocol Last Admin: 02/22/19 09:40 Dose: Not Given Documented by: Magnesium Hydroxide (Milk Of Magnesia) 30 ml PO Q4H PRN PRN Reason: Constipation Methylprednisolone Sodium Succinate (Solu-Medrol) 40 mg IV Q24HR [facility] Metoprolol Tartrate (Metoprolol) 50 mg PO BID [facility] Last Admin: 02/21/19 22:01 Dose: 50 mg Documented by: Morphine Sulfate (Morphine) 2 mg IV Q4H PRN PRN Reason: Pain, Moderate (4-6) Last Admin: 02/21/19 03:33 Dose: 2 mg Documented by: Pantoprazole Sodium (Protonix) 40 mg PO QDAY [facility] Sodium Chloride (Sodium Chloride Flush Syringe 10 Ml) 10 ml IV BID [facility] Last Admin: 02/21/19 22:02 Dose: 10 ml Documented by: Sodium Chloride (Sodium Chloride Flush Syringe 10 Ml) 10 ml IV PRN PRN PRN Reason: LINE FLUSH Review of Systems Constitutional: no weight loss, no weight gain Ears, nose, mouth and throat: no ear pain, no nose pain, no sinus pressure, no sinus pain Cardiovascular: chest pain, orthopnea, shortness of breath, dyspnea on exertion, no palpitations, no rapid/irregular heart beat, no syncope, no lightheadedness Respiratory: cough, cough with sputum, shortness of breath, dyspnea on exertion, no wheezing, no pain on inspiration Gastrointestinal: no abdominal pain, no nausea, no vomiting, no diarrhea, no constipation, no change in bowel habits Genitourinary Female: no pelvic pain, no flank pain, no dysuria, no urinary frequency, no urgency Musculoskeletal: no neck stiffness, no neck pain, no shooting arm pain, no arm numbness/tingling, no low back pain Integumentary: no rash, no pruritis, no redness, no sores, no wounds Neurological: no head injury, no paralysis, no weakness, no parathesias, no numbness, no tingling, no seizures, no syncope Psychiatric: no anxiety Endocrine: no cold intolerance, no heat intolerance Hematologic/Lymphatic: no easy bruising, no easy bleeding Allergic/Immunologic: no urticaria Physical Examination Vital Signs Temp Pulse Resp BP Pulse Ox 97.4 F L 101 H 22 187/87 87 02/18/19 22:48 02/18/19 22:48 02/18/19 22:48 02/18/19 22:48 02/18/19 22:48 General appearance: no acute distress HEENT: Positive: PERRL, Normocephaly, Mucus Membranes Moist Neck: Positive: neck supple, trachea midline Cardiac: Positive: Reg Rate and Rhythm, S1/S2 Lungs: Positive: Decreased Breath Sounds, Rhonchi (bibasilar), Oxygen Neuro: Positive: Grossly Intact Abdomen: Negative: Tender Skin: Negative: Rash Musculoskeletal: No Pain Extremities: Present: edema (trace BLE) Results 02/21/19 11:59 02/22/19 00:44 CBC 02/21/19 Range/Units 11:59 WBC 13.6 H (4.5-11.0) K/mm3 RBC 3.19 L (3.65-5.03) M/mm3 Hgb 8.0 L (10.1-14.3) gm/dl Hct 24.7 L (30.3-42.9) % Plt Count 614 H (140-440) K/mm3 Comprehensive Metabolic Panel 02/22/19 Range/Units 00:44 Sodium 133 L (137-145) mmol/L Potassium 4.4 (3.6-5.0) mmol/L Chloride 101.1 (98-107) mmol/L Carbon Dioxide 19 L (22-30) mmol/L BUN 37 H (7-17) mg/dL Creatinine 1.5 H (0.7-1.2) mg/dL Glucose 139 H (65-100) mg/dL Calcium 8.1 L (8.4-10.2) mg/dL - Imaging and Cardiology Echo: report reviewed (02/19/2019 showed EF 30-35%, impaired relaxation, mild MR and TR, RVSP 46mmHg, basal anterior, mid anterior and apical anterior wall segments hypokinetic, mid inferoseptal and apical septal wall segments akinetic. ) EKG: report reviewed, image reviewed EKG interpretations - Telemetry EKG Rhythm: Sinus Rhythm - EKG Sinus rhythms and dysrhythmias: sinus rhythm Myocardial infarction: anterior NH (old age or i Assessment and Plan Agree with present cardiac management. No ACEI/ARB at this time in setting of renal insufficiency. Plan for lexiscan MPI stress test in AM for further evalua tion of chest pain and to r/o ischemic CMP. NPO after MN. The patient has been seen in conjunction with Dr. Pierce who agrees with the assessment and plan of care. - Patient Problems (1) Acute respiratory distress Current Visit: Yes Status: Acute (2) Lesion of lung Current Visit: Yes Status: Acute (3) Pneumonia Current Visit: Yes Status: Suspected Qualifiers: Pneumonia type: due to unspecified organism Laterality: left Lung location: lower lobe of lung Qualified Code(s): J18.9 - Pneumonia, unspecified organism (4) Pleural effusion Current Visit: Yes Status: Acute (5) Chest pain Current Visit: Yes Status: Acute (6) Acute HFrEF (heart failure with reduced ejection fraction) Current Visit: Yes Status: Acute (7) Cardiomyopathy Current Visit: Yes Status: Chronic (8) CAD (coronary artery disease) Current Visit: Yes Status: Chronic (9) Stented coronary artery Current Visit: Yes Status: Chronic (10) HTN (hypertension) Current Visit: Yes Status: Chronic (11) Diabetes Current Visit: Yes Status: Chronic (12) Renal insufficiency Current Visit: Yes Status: Acute (13) Anemia Current Visit: Yes Status: Acute (14) Polycythemia Current Visit: Yes Status: Acute (15) Former tobacco use Current Visit: Yes Status: Chronic
[2019-02-22] MEDS: FERROUS SULFATE 325 MG TAB PO SCH (11:36)
[2019-02-22] MEDS: allopurinoL 100 MG TAB PO SCH (11:37)
[2019-02-22] MEDS: PANTOPRAZOLE 40 MG TAB PO SCH (11:37)
[2019-02-22] MEDS: CILOSTAZOL 100 MG TAB PO SCH ×2 (11:37→21:56)
[2019-02-22] MEDS: FUROSEMIDE 40 MG/4 ML INJ IV SCH (11:38)
[2019-02-22] MEDS: methylPREDNISolone Sod Succinate 40 MG/1 ML INJ IV SCH (11:38)
[2019-02-22] MEDS: METOPROLOL TARTRATE 50 MG TAB PO SCH ×2 (11:39→21:56)
--- NOTE | 2019-02-22 11:44 | Progress Note ---
Assessment and Plan 73 y/o female, former smoker admitted with worsening dyspnea, found to have moderate left sided pleural effusion. 1. Will speak with pathology and ask them if they are willing to send it out for a second opinion. Spoke to them and they will send the slides out today. Ok with transfer to inpatient rehab on third floor. Can continue to follow while down there. Subjective Date of service: 02/22/19 Principal diagnosis: Pleural effusion Interval history: No acute events. Stable on oxygen. Effusion studies still pending. Daughter not at bedside this am. Objective Vital Signs - 12hr 02/22/19 02/22/19 02/22/19 04:06 07:55 08:13 Temperature 98.1 F 98.2 F Pulse Rate 89 Pulse Rate [ 85 Bilateral] Respiratory 18 18 Rate Respiratory 18 Rate [Bilateral ] Blood Pressure 136/67 145/74 O2 Sat by Pulse 97 Oximetry 02/22/19 02/22/19 08:14 10:00 Temperature Pulse Rate 83 Pulse Rate [ Bilateral] Respiratory Rate Respiratory Rate [Bilateral ] Blood Pressure O2 Sat by Pulse 96 Oximetry Constitutional: no acute distress, alert Eyes: non-icteric ENT: oropharynx moist Neck: supple Effort: normal Ascultation: Right: clear, Left: rales, egophony, Bilateral: diminished breath sounds (bases), wheezes Cardiovascular: regular rate and rhythm (no mrg) Gastrointestinal: normoactive bowel sounds, soft, non-tender, non-distended Integumentary: normal Extremities: no cyanosis, no edema, pink and warm Neurologic: normal mental status, non-focal exam, pupils equal and round Psychiatric: mood appropriate, affect normal CBC and BMP: 02/21/19 11:59 02/22/19 00:44 ABG, PT/INR, D-dimer: ABG POC ABG pH 7.377 (7.35-7.45) 02/18/19 23:44 POC ABG pCO2 35.6 (35-45) 02/18/19 23:44 POC ABG pO2 253 (80-105) H 02/18/19 23:44 POC ABG HCO3 20.9 (22-26 mml/L) 02/18/19 23:44 POC ABG Total CO2 22 (23-27mmol/L) 02/18/19 23:44 POC ABG O2 Sat 100 02/18/19 23:44 PT/INR, D-dimer PT 15.7 Sec. (12.2-14.9) H 02/19/19 17:49 INR 1.27 (0.87-1.13) H 02/19/19 17:49 Abnormal lab findings: Abnormal Labs 02/18/19 02/18/19 02/18/19 23:11 23:11 23:11 WBC 14.5 H RBC 3.33 L Hgb 8.3 L Hct 26.2 L MCV MCH 25 L RDW 19.4 H Plt Count 582 H Lymph % (Auto) [place] % (Auto) 10.5 H [place] # 1.5 H Baso # 0.2 H Seg Neutrophils % 73.2 H Seg Neutrophils # 10.6 H PT INR POC ABG pO2 Sodium 136 L Potassium Carbon Dioxide 18 L BUN 26 H Creatinine 1.3 H Glucose 118 H POC Glucose Calcium NT-Pro-B Natriuret Pep 4784 H Albumin 2.4 L 02/18/19 02/19/19 02/19/19 23:44 08:09 12:03 WBC RBC Hgb Hct MCV MCH RDW Plt Count Lymph % (Auto) [place] % (Auto) [place] # Baso # Seg Neutrophils % Seg Neutrophils # PT INR POC ABG pO2 253 H Sodium Potassium Carbon Dioxide BUN Creatinine Glucose POC Glucose 224 H 187 H Calcium NT-Pro-B Natriuret Pep Albumin 02/19/19 02/19/19 02/19/19 17:49 18:22 22:24 WBC RBC Hgb Hct MCV MCH RDW Plt Count Lymph % (Auto) [place] % (Auto) [place] # Baso # Seg Neutrophils % Seg Neutrophils # PT 15.7 H INR 1.27 H POC ABG pO2 Sodium Potassium Carbon Dioxide BUN Creatinine Glucose POC Glucose 239 H 170 H Calcium NT-Pro-B Natriuret Pep Albumin 02/20/19 02/20/19 02/20/19 04:45 04:45 11:17 WBC 18.6 H RBC 3.07 L Hgb 7.4 L Hct 23.8 L MCV 78 L MCH 24 L RDW 19.4 H Plt Count 596 H Lymph % (Auto) 8.8 L [place] % (Auto) [place] # 1.0 H Baso # Seg Neutrophils % 85.6 H Seg Neutrophils # 15.9 H PT INR POC ABG pO2 Sodium Potassium 5.2 H D Carbon Dioxide 19 L BUN 36 H Creatinine 1.6 H Glucose POC Glucose 160 H Calcium NT-Pro-B Natriuret Pep Albumin 02/20/19 02/20/19 02/21/19 15:39 20:37 06:34 WBC RBC Hgb Hct MCV MCH RDW Plt Count Lymph % (Auto) [place] % (Auto) [place] # Baso # Seg Neutrophils % Seg Neutrophils # PT INR POC ABG pO2 Sodium 135 L Potassium 5.3 H Carbon Dioxide 17 L BUN 36 H Creatinine 1.5 H Glucose 179 H POC Glucose 147 H 146 H Calcium NT-Pro-B Natriuret Pep Albumin 02/21/19 02/21/19 02/21/19 07:39 11:45 11:59 WBC 13.6 H RBC 3.19 L Hgb 8.0 L Hct 24.7 L MCV 78 L MCH 25 L RDW 19.4 H Plt Count 614 H Lymph % (Auto) [place] % (Auto) [place] # Baso # Seg Neutrophils % Seg Neutrophils # PT INR POC ABG pO2 Sodium Potassium Carbon Dioxide BUN Creatinine Glucose POC Glucose 184 H 268 H Calcium NT-Pro-B Natriuret Pep Albumin 02/21/19 02/21/19 02/22/19 15:41 20:43 00:44 WBC RBC Hgb Hct MCV MCH RDW Plt Count Lymph % (Auto) [place] % (Auto) [place] # Baso # Seg Neutrophils % Seg Neutrophils # PT INR POC ABG pO2 Sodium 133 L Potassium Carbon Dioxide 19 L BUN 37 H Creatinine 1.5 H Glucose 139 H POC Glucose 278 H 251 H Calcium 8.1 L NT-Pro-B Natriuret Pep Albumin 02/22/19 08:04 WBC RBC Hgb Hct MCV MCH RDW Plt Count Lymph % (Auto) [place] % (Auto) [place] # Baso # Seg Neutrophils % Seg Neutrophils # PT INR POC ABG pO2 Sodium Potassium Carbon Dioxide BUN Creatinine Glucose POC Glucose 124 H Calcium NT-Pro-B Natriuret Pep Albumin
--- NOTE | 2019-02-22 15:38 | Progress Note ---
Assessment and Plan / Acute hypoxic respiratory failure Possibly secondary to underlying pneumonia, left pleural effusion and CHF exacerbation. She has been placed on BiPAP - now weaned off s/p thoracentesis on 02/19 drained 700cc fluid, 2-D echo showed EF of 30-35% Need assessment for home O2 requirement before discharge /Pneumonia with sepsis, POA She has been started on empiric IV antibiotics, H CAP. We await blood culture results and results from the thoracentesis. ID following - will follow recommendation /CHF (congestive heart failure) with acute exacerbation We will continue patient on routine home medications. Will monitor daily weight monitor input and output. 2-D echo showed EF of 30-35%, we'll continue Lasix Consulted cardiology - plan for stress test tomorrow / NEELIMA, acute on CKD? This appears chronic. Will monitor BUN and creatinine, consulted nephrology /Physical debility, PT recommended acute rehab / DVT prophylaxis We will place on subcutaneous heparin. / Full code status Brief History: 73-year-old female with known history of hypertension coronary artery disease diabetes mellitus who presents to the emergency room complaining of shortness of breath. She was just recently discharged from the hospital with similar symptoms, diagnosed with cavitary lesion in the left upper lobe was placed on antibiotics, was also ruled out for TB. She presents to the emergency room in respiratory distress. She was placed on BiPAP. Upon evaluation in the emergency room she was found to have findings consistent with a possible pneumonia and some pleural effusion. Hospitalist Physical exam: GENERAL: well-developed elderly AAF lying on bed appeared to be in no discomf ort. HEENT: Normocephalic. Atraumatic. No conjunctival congestion or icterus. Patient has moist mucous membranes. NECK: Supple. Trachea midline. CHEST/LUNGS: BS auscultated bilaterally, breathing nonlabored. + Left sided rhonchi. HEART/CARDIOVASCULAR: Regular in rate and rhythm. S1 and S2 positive. ABDOMEN: Abdomen is soft, nontender. Patient has normal bowel sounds. SKIN: There is no rash. Warm and dry. NEURO: No focal motor deficit. Follows command. MUSCULOSKELETAL: No joint effusion or tenderness. EXTRIMITY: No edema, no cyanosis or clubbing. PSYCH: Cooperative. Subjective Date of service: 02/22/19 Principal diagnosis: Pleural effusion Interval history: Patient seen and examined breathing improved but still SOB on exertion Denies any chest pain, tolerating diet Objective - Constitutional Vitals: Vital Signs - 12hr 02/22/19 02/22/19 02/22/19 04:06 07:55 08:13 Temperature 98.1 F 98.2 F Pulse Rate 89 Pulse Rate [ 85 Bilateral] Respiratory 18 18 Rate Respiratory 18 Rate [Bilateral ] Blood Pressure 136/67 145/74 O2 Sat by Pulse 97 Oximetry 02/22/19 02/22/19 08:14 10:00 Temperature Pulse Rate 83 Pulse Rate [ Bilateral] Respiratory Rate Respiratory Rate [Bilateral ] Blood Pressure O2 Sat by Pulse 96 Oximetry - Labs CBC & Chem 7: 02/21/19 11:59 02/22/19 00:44 Labs: Abnormal lab results 02/21/19 02/21/19 02/22/19 Range/Units 15:41 20:43 00:44 Sodium 133 L (137-145) mmol/L Carbon Dioxide 19 L (22-30) mmol/L BUN 37 H (7-17) mg/dL Creatinine 1.5 H (0.7-1.2) mg/dL Glucose 139 H (65-100) mg/dL POC Glucose 278 H 251 H (70-105) Calcium 8.1 L (8.4-10.2) mg/dL 02/22/19 02/22/19 Range/Units 08:04 12:24 Sodium (137-145) mmol/L Carbon Dioxide (22-30) mmol/L BUN (7-17) mg/dL Creatinine (0.7-1.2) mg/dL Glucose (65-100) mg/dL POC Glucose 124 H 174 H (70-105) Calcium (8.4-10.2) mg/dL
[2019-02-22 16:55] LABS: Chol/HDL Ratio 1.95 %
[2019-02-23] MEDS: CEFEPIME/NS 2 GM/100 ML 2 GM/100 ML BAG IV SCH ×2 (07:03→22:31)
[2019-02-23] MEDS: hydrALAZINE 25 MG TAB PO SCH ×4 (07:04→22:33)
[2019-02-23 07:41] LABS: Calcium 8.1 mg/dL (8.4-10.2)
[2019-02-23] MEDS: METOPROLOL TARTRATE 50 MG TAB PO SCH ×2 (09:00→22:32)
[2019-02-23] MEDS: FUROSEMIDE 40 MG/4 ML INJ IV SCH (09:00)
--- NOTE | 2019-02-23 09:01 | Progress Note ---
Assessment and Plan 1. Acute kidney injury: Mild NEELIMA superimposed on CKD stage 3, suspect vasomotor insult. Renal function is better and close to her baseline. Monitor renal function. Avoid nephrotoxic agents. Meds dosage based on GFR. 2. FEN: Hyperkalemia, improved. Metabolic acidosis, monitor. Replete Mg. Monitor lytes. 3. Acute hypoxic respiratory failure: Possibly secondary to underlying pneumonia, left pleural effusion and CHF exacerbation. 4. Left lung cavitating lung lesion and L pleural effusion: Followed by Pulmonary. 5. Decompaensated CHF. 6. H/o CAD. 7. DM-2. 8. Hypertension: Monitor BP. 9. Anemia: POA. Examination: General appearance: well-developed, well-nourished, appears stated age, no distress HEENT: ATNC, SKYE, mucous membranes moist, hearing intact, vision intact Neck: neck supple, trachea midline Respiratory: ctab Heart: regular, S1S2, no murmurs Gastrointestinal: normoactive bowel sounds, not tender Integumentary: no rash, warm and dry Neurologic: no focal deficit, no asterixis Ext: trace LE edema noted Subjective Date of service: 02/23/19 Principal diagnosis: Pleural effusion Interval history: Patient was seen and examined at the bedside. Doing better. Objective - Vital Signs Vital signs: Vital Signs - 12hr 02/22/19 02/22/19 02/22/19 22:00 23:25 23:27 Temperature 98.4 F Pulse Rate 108 H 98 H Respiratory 20 Rate Blood Pressure 156/71 O2 Sat by Pulse 97 98 Oximetry 02/23/19 02/23/19 02/23/19 03:58 04:01 07:36 Temperature 98.3 F 97.9 F Pulse Rate 82 91 H Respiratory 18 18 Rate Blood Pressure 143/69 146/63 O2 Sat by Pulse 100 97 Oximetry 02/23/19 08:51 Temperature Pulse Rate 91 H Respiratory Rate Blood Pressure O2 Sat by Pulse Oximetry - Lab 02/21/19 11:59 02/23/19 06:26 Most recent lab results Calcium 8.1 mg/dL (8.4-10.2) L 02/23/19 06:26 Phosphorus 2.70 mg/dL (2.5-4.5) 02/23/19 06:26 Magnesium 1.60 mg/dL (1.7-2.3) L 02/23/19 06:26 Medications & Allergies - Medications Allergies/Adverse Reactions: Allergies ibuprofen Allergy (Verified 02/18/19 23:29) Unknown Penicillins Allergy (Verified 02/18/19 23:29) Unknown Home Medications: Home Medications Medication Instructions Recorded Confirmed Last Taken Type Allopurinol 100 mg PO DAILY 12/26/18 02/19/19 Unknown History Aspirin 325 mg PO DAILY 12/26/18 02/19/19 Unknown History Cilostazol 100 mg PO BID 12/26/18 02/19/19 Unknown History Ferrous Sulfate 325 mg PO DAILY 12/26/18 02/19/19 Unknown History Metoprolol Tartrate 50 mg PO BID #60 12/29/18 02/19/19 Unknown Rx Ipratropium (Nf) [Atrovent HFA 2 puff IH Q6HR PRN #1 inha 01/11/19 02/19/19 Unknown Rx 17MCG/PUFF] Acetaminophen/Codeine [Tylenol 1 tab PO Q6H PRN #12 tab 01/21/19 02/19/19 Unknown Rx /Codeine # 3 tab] AtorvaSTATin [Lipitor] 40 mg PO QHS 02/09/19 02/19/19 Unknown History Pantoprazole [Protonix TAB] 40 mg PO QDAY #30 tablet 02/16/19 02/19/19 Unknown Rx cefUROXime [Ceftin] 500 mg PO Q12H 21 Days tablet 02/16/19 02/19/19 Unknown Rx glipiZIDE [Glucotrol] 5 mg PO BID #60 tablet 02/16/19 02/19/19 Unknown Rx hydrALAZINE [Apresoline TAB] 25 mg PO Q8HR #90 tablet 02/16/19 02/19/19 Unknown Rx metroNIDAZOLE [Flagyl] 500 mg PO Q8HR 21 Days 02/16/19 02/19/19 Unknown Rx Active Medications: Generic Name Dose Route Start Last Admin Trade Name Freq PRN Reason Stop Dose Admin Acetaminophen 650 mg 02/20/19 17:19 02/22/19 08:10 Tylenol PO 650 mg Q6H PRN Administration Pain, Mild (1-3) Albuterol 2.5 mg 02/20/19 23:45 02/22/19 08:12 Proventil IH 2.5 mg Q3HRT PRN Administration Shortness Of Breath Allopurinol 100 mg 02/21/19 12:15 02/22/19 11:37 Zyloprim PO 100 mg QDAY MAYLIN Administration Aspirin 325 mg 02/23/19 10:00 Ecotrin PO QDAY MAYLIN Atorvastatin Calcium 40 mg 02/21/19 22:00 02/22/19 21:56 Lipitor PO 40 mg QHS MAYLIN Administration Cilostazol 100 mg 02/21/19 22:00 02/22/19 21:56 Pletal PO 100 mg BID MAYLIN Administration Dextrose 0 ml 02/19/19 03:08 D50w (25gm) Syringe IV Q30MIN PRN Hypoglycemia Protocol Ferrous Sulfate 325 mg 02/22/19 10:00 02/22/19 11:36 Feosol PO 325 mg QDAY MAYLIN Administration Furosemide 40 mg 02/21/19 10:00 02/22/19 11:38 Lasix IV 40 mg DAILY MAYLIN Administration Hydralazine HCl 25 mg 02/21/19 14:00 02/23/19 07:04 Apresoline PO 25 mg Q8HR MAYLIN Administration Cefepime HCl 2 gm in 100 mls @ 200 mls/hr 02/19/19 06:00 02/23/19 07:03 Cefepime/Ns 2 Gm/100 Ml IV 200 mls/hr Q12H MAYLIN Administration Protocol Levofloxacin/Dextrose 750 mg in 150 mls @ 100 mls/hr 02/19/19 10:00 02/21/19 09:23 Levaquin 750mg/150ml IV 100 mls/hr Q48HR MAYLIN Administration Protocol Insulin Human Regular 0 units 02/19/19 07:30 02/22/19 22:05 Humulin R SUB-Q 8 units ACHS MAYLIN Administration Protocol Magnesium Hydroxide 30 ml 02/19/19 03:08 Milk Of Magnesia PO Q4H PRN Constipation Methylprednisolone Sodium Succinate 40 mg 02/22/19 10:00 02/22/19 11:38 Solu-Medrol IV 40 mg Q24HR MAYLIN Administration Metoprolol Tartrate 50 mg 02/21/19 22:00 02/22/19 21:56 Metoprolol PO 50 mg BID MAYLIN Administration Morphine Sulfate 2 mg 02/19/19 03:08 02/21/19 03:33 Morphine IV 2 mg Q4H PRN Administration Pain, Moderate (4-6) Pantoprazole Sodium 40 mg 02/22/19 10:00 02/22/19 11:37 Protonix PO 40 mg QDAY MAYLIN Administration Sodium Chloride 10 ml 02/19/19 10:00 02/22/19 22:05 Sodium Chloride Flush Syringe 10 Ml IV 10 ml BID MAYLIN Administration Sodium Chloride 10 ml 02/19/19 03:08 Sodium Chloride Flush Syringe 10 Ml IV PRN PRN LINE FLUSH
[2019-02-23] MEDS: INSULIN REGULAR, HUMAN 100 UNITS/1 ML SUB-Q SCH ×5 (09:52→23:02)
[2019-02-23] MEDS: REGADENOSON 0.4 MG/5 ML INJ IV ONE ×2 (09:52→10:41)
--- NOTE | 2019-02-23 10:28 | Progress Note ---
Assessment and Plan Cont present cardiac management. No ACEI/ARB at this time in setting of renal insufficiency. Proceed with lexiscan MPI stress test. The patient has been seen in conjunction with Dr. Pierce who agrees with the assessment and plan of care. - Patient Problems (1) Acute respiratory distress Current Visit: Yes Status: Acute (2) Pneumonia Current Visit: Yes Status: Suspected Qualifiers: Pneumonia type: due to unspecified organism Laterality: left Lung location: lower lobe of lung Qualified Code(s): J18.9 - Pneumonia, unspecified organism (3) Pleural effusion Current Visit: Yes Status: Acute (4) Chest pain Current Visit: Yes Status: Acute (5) Acute HFrEF (heart failure with reduced ejection fraction) Current Visit: Yes Status: Acute (6) Cardiomyopathy Current Visit: Yes Status: Chronic (7) CAD (coronary artery disease) Current Visit: Yes Status: Chronic (8) Stented coronary artery Current Visit: Yes Status: Chronic (9) HTN (hypertension) Current Visit: Yes Status: Chronic (10) Diabetes Current Visit: Yes Status: Chronic (11) Renal insufficiency Current Visit: Yes Status: Acute (12) Anemia Current Visit: Yes Status: Acute (13) Polycythemia Current Visit: Yes Status: Acute (14) Former tobacco use Current Visit: Yes Status: Chronic (15) NSTEMI (non-ST elevated myocardial infarction) Current Visit: Yes Status: Acute Plan to address problem: type II Subjective Date of service: 02/23/19 Principal diagnosis: Pleural effusion Interval history: for stress test. feels better. Objective Last Vital Signs Temp 97.9 F 02/23/19 07:36 Pulse 91 H 02/23/19 08:51 Resp 18 02/23/19 07:36 BP 146/63 02/23/19 07:36 Pulse Ox 97 02/23/19 07:36 - Physical Examination General: No Apparent Distress HEENT: Positive: PERRL, Normocephaly, Mucus Membranes Moist Neck: Positive: neck supple, trachea midline Cardiac: Positive: Reg Rate and Rhythm, S1/S2 Lungs: Positive: Rhonchi (scattered) Neuro: Positive: Grossly Intact Abdomen: Negative: Tender Skin: Negative: Rash Musculoskeletal: No Pain Extremities: Present: edema (trace BLE) - Labs and Meds Lipids 02/22/19 Range/Units 13:15 Triglycerides 118 (2-149) mg/dL Cholesterol 141 (50-199) mg/dL HDL Cholesterol 72 H (40-59) mg/dL Cholesterol/HDL Ratio 1.95 % Comprehensive Metabolic Panel 02/23/19 Range/Units 06:26 Sodium 132 L (137-145) mmol/L Potassium 4.3 (3.6-5.0) mmol/L Chloride 99.3 (98-107) mmol/L Carbon Dioxide 20 L (22-30) mmol/L BUN 43 H (7-17) mg/dL Creatinine 1.3 H (0.7-1.2) mg/dL Glucose 163 H (65-100) mg/dL Calcium 8.1 L (8.4-10.2) mg/dL - Imaging and Cardiology EKG: report reviewed, image reviewed Echo: report reviewed (02/19/2019 showed EF 30-35%, impaired relaxation, mild MR and TR, RVSP 46mmHg, basal anterior, mid anterior and apical anterior wall segments hypokinetic, mid inferoseptal and apical septal wall segments akinetic. ) - Telemetry EKG Rhythm: Sinus Rhythm - EKG Sinus rhythms and dysrhythmias: sinus rhythm Myocardial infarction: anterior NC (old age or i
--- NOTE | 2019-02-23 11:23 | Progress Note ---
Assessment and Plan 73 y/o female, former smoker admitted with worsening dyspnea, found to have moderate left sided pleural effusion. 1. Pathology pending 2. Ok with transfer to rehab Subjective Date of service: 02/23/19 Principal diagnosis: Pleural effusion Interval history: No acute events. Objective Vital Signs - 12hr 02/22/19 02/22/19 02/23/19 23:25 23:27 03:58 Temperature 98.4 F Pulse Rate 98 H 82 Respiratory 20 18 Rate Blood Pressure 156/71 143/69 Blood Pressure [Left] O2 Sat by Pulse 98 100 Oximetry 02/23/19 02/23/19 02/23/19 04:01 07:36 08:51 Temperature 98.3 F 97.9 F Pulse Rate 91 H 91 H Respiratory 18 Rate Blood Pressure 146/63 Blood Pressure [Left] O2 Sat by Pulse 97 Oximetry 02/23/19 11:07 Temperature 97.9 F Pulse Rate 75 Respiratory 14 Rate Blood Pressure Blood Pressure 151/81 [Left] O2 Sat by Pulse 94 Oximetry Constitutional: no acute distress, alert Eyes: non-icteric ENT: oropharynx moist Neck: supple Effort: normal Ascultation: Right: clear, Left: rales, egophony, Bilateral: diminished breath sounds (bases), wheezes Cardiovascular: regular rate and rhythm (no mrg) Gastrointestinal: normoactive bowel sounds, soft, non-tender, non-distended Integumentary: normal Extremities: no cyanosis, no edema, pink and warm Neurologic: normal mental status, non-focal exam, pupils equal and round Psychiatric: mood appropriate, affect normal CBC and BMP: 02/21/19 11:59 02/23/19 06:26 ABG, PT/INR, D-dimer: ABG POC ABG pH 7.377 (7.35-7.45) 02/18/19 23:44 POC ABG pCO2 35.6 (35-45) 02/18/19 23:44 POC ABG pO2 253 (80-105) H 02/18/19 23:44 POC ABG HCO3 20.9 (22-26 mml/L) 02/18/19 23:44 POC ABG Total CO2 22 (23-27mmol/L) 02/18/19 23:44 POC ABG O2 Sat 100 02/18/19 23:44 PT/INR, D-dimer PT 15.7 Sec. (12.2-14.9) H 02/19/19 17:49 INR 1.27 (0.87-1.13) H 02/19/19 17:49 Abnormal lab findings: Abnormal Labs 02/18/19 02/18/19 02/18/19 23:11 23:11 23:11 WBC 14.5 H RBC 3.33 L Hgb 8.3 L Hct 26.2 L MCV MCH 25 L RDW 19.4 H Plt Count 582 H Lymph % (Auto) [place] % (Auto) 10.5 H [place] # 1.5 H Baso # 0.2 H Seg Neutrophils % 73.2 H Seg Neutrophils # 10.6 H PT INR POC ABG pO2 Sodium 136 L Potassium Carbon Dioxide 18 L BUN 26 H Creatinine 1.3 H Glucose 118 H POC Glucose Calcium Magnesium Troponin T NT-Pro-B Natriuret Pep 4784 H Albumin 2.4 L HDL Cholesterol 02/18/19 02/19/19 02/19/19 23:44 08:09 12:03 WBC RBC Hgb Hct MCV MCH RDW Plt Count Lymph % (Auto) [place] % (Auto) [place] # Baso # Seg Neutrophils % Seg Neutrophils # PT INR POC ABG pO2 253 H Sodium Potassium Carbon Dioxide BUN Creatinine Glucose POC Glucose 224 H 187 H Calcium Magnesium Troponin T NT-Pro-B Natriuret Pep Albumin HDL Cholesterol 02/19/19 02/19/19 02/19/19 17:49 18:22 22:24 WBC RBC Hgb Hct MCV MCH RDW Plt Count Lymph % (Auto) [place] % (Auto) [place] # Baso # Seg Neutrophils % Seg Neutrophils # PT 15.7 H INR 1.27 H POC ABG pO2 Sodium Potassium Carbon Dioxide BUN Creatinine Glucose POC Glucose 239 H 170 H Calcium Magnesium Troponin T NT-Pro-B Natriuret Pep Albumin HDL Cholesterol 02/20/19 02/20/19 02/20/19 04:45 04:45 11:17 WBC 18.6 H RBC 3.07 L Hgb 7.4 L Hct 23.8 L MCV 78 L MCH 24 L RDW 19.4 H Plt Count 596 H Lymph % (Auto) 8.8 L [place] % (Auto) [place] # 1.0 H Baso # Seg Neutrophils % 85.6 H Seg Neutrophils # 15.9 H PT INR POC ABG pO2 Sodium Potassium 5.2 H D Carbon Dioxide 19 L BUN 36 H Creatinine 1.6 H Glucose POC Glucose 160 H Calcium Magnesium Troponin T NT-Pro-B Natriuret Pep Albumin HDL Cholesterol 02/20/19 02/20/19 02/21/19 15:39 20:37 06:34 WBC RBC Hgb Hct MCV MCH RDW Plt Count Lymph % (Auto) [place] % (Auto) [place] # Baso # Seg Neutrophils % Seg Neutrophils # PT INR POC ABG pO2 Sodium 135 L Potassium 5.3 H Carbon Dioxide 17 L BUN 36 H Creatinine 1.5 H Glucose 179 H POC Glucose 147 H 146 H Calcium Magnesium Troponin T NT-Pro-B Natriuret Pep Albumin HDL Cholesterol 02/21/19 02/21/19 02/21/19 07:39 11:45 11:59 WBC 13.6 H RBC 3.19 L Hgb 8.0 L Hct 24.7 L MCV 78 L MCH 25 L RDW 19.4 H Plt Count 614 H Lymph % (Auto) [place] % (Auto) [place] # Baso # Seg Neutrophils % Seg Neutrophils # PT INR POC ABG pO2 Sodium Potassium Carbon Dioxide BUN Creatinine Glucose POC Glucose 184 H 268 H Calcium Magnesium Troponin T NT-Pro-B Natriuret Pep Albumin HDL Cholesterol 02/21/19 02/21/19 02/22/19 15:41 20:43 00:44 WBC RBC Hgb Hct MCV MCH RDW Plt Count Lymph % (Auto) [place] % (Auto) [place] # Baso # Seg Neutrophils % Seg Neutrophils # PT INR POC ABG pO2 Sodium 133 L Potassium Carbon Dioxide 19 L BUN 37 H Creatinine 1.5 H Glucose 139 H POC Glucose 278 H 251 H Calcium 8.1 L Magnesium Troponin T NT-Pro-B Natriuret Pep Albumin HDL Cholesterol 02/22/19 02/22/19 02/22/19 08:04 12:24 13:15 WBC RBC Hgb Hct MCV MCH RDW Plt Count Lymph % (Auto) [place] % (Auto) [place] # Baso # Seg Neutrophils % Seg Neutrophils # PT INR POC ABG pO2 Sodium Potassium Carbon Dioxide BUN Creatinine Glucose POC Glucose 124 H 174 H Calcium Magnesium Troponin T 0.208 H* D NT-Pro-B Natriuret Pep Albumin HDL Cholesterol 72 H 02/22/19 02/22/19 02/23/19 15:56 21:30 06:26 WBC RBC Hgb Hct MCV MCH RDW Plt Count Lymph % (Auto) [place] % (Auto) [place] # Baso # Seg Neutrophils % Seg Neutrophils # PT INR POC ABG pO2 Sodium 132 L Potassium Carbon Dioxide 20 L BUN 43 H Creatinine 1.3 H Glucose 163 H POC Glucose 359 H 398 H Calcium 8.1 L Magnesium 1.60 L Troponin T NT-Pro-B Natriuret Pep Albumin HDL Cholesterol 02/23/19 02/23/19 06:49 07:43 WBC RBC Hgb Hct MCV MCH RDW Plt Count Lymph % (Auto) [place] % (Auto) [place] # Baso # Seg Neutrophils % Seg Neutrophils # PT INR POC ABG pO2 Sodium Potassium Carbon Dioxide BUN Creatinine Glucose POC Glucose 183 H Calcium Magnesium Troponin T 0.173 H* NT-Pro-B Natriuret Pep Albumin HDL Cholesterol
--- NOTE | 2019-02-23 11:32 | Treadmill Report ---
LEXISCAN STRESS TEST REPORT REASON FOR STUDY: Chest pain and elevated troponin levels. STRESS TEST PROTOCOL: The patient received 0.4 mg of Lexiscan intravenously over 10 seconds. Tc-99m Tetrofosmin was subsequently injected. Baseline ECG, normal sinus rhythm. T-wave abnormalities. Consider anterolateral and inferior ischemia. Lexiscan ECG, no significant change from baseline. No chest pain. She experienced shortness of breath with Lexiscan infusion. No arrhythmias. IMPRESSION: Nondiagnostic due to baseline ECG abnormalities. Nuclear imaging report to follow. JOB# [id number] AGO/NTS
[2019-02-23] MEDS: CILOSTAZOL 100 MG TAB PO SCH ×2 (12:30→22:33)
[2019-02-23] MEDS: ASPIRIN EC 325 MG TAB PO SCH (12:30)
[2019-02-23] MEDS: PANTOPRAZOLE 40 MG TAB PO SCH (12:30)
[2019-02-23] MEDS: allopurinoL 100 MG TAB PO SCH (12:31)
[2019-02-23] MEDS: FERROUS SULFATE 325 MG TAB PO SCH (12:31)
[2019-02-23] MEDS: MAGNESIUM OXIDE 400 MG TAB PO SCH ×2 (12:31→22:33)
[2019-02-23] MEDS: methylPREDNISolone Sod Succinate 40 MG/1 ML INJ IV SCH (12:32)
--- NOTE | 2019-02-23 13:00 | Treadmill Report ---
THALLIUM REPORT REASON FOR STUDY: Elevated cardiac enzymes. IMAGING PROTOCOL: The patient received 10 mCi of Tc-99m Tetrofosmin for rest imaging, and 28 mCi of Tc-99m Tetrofosmin for stress imaging. Imaging for all procedures was completed 30-90 minutes following the initial injection of Technetium 99m Tetrofosmin. SPECT imaging in the 180 degree arc was performed in the right anterior oblique projection. Computerized reconstruction of the images was performed for analysis. NUCLEAR IMAGING RESULTS: Normal left ventricular cavity size with no change from stress to rest. Distribution of radionuclide within the left ventricle revealed a medium-sized area of photo-induction involving the inferior wall. The degree of photo-induction is moderate to severe. Rest imaging showed only minimal improvement in this defect. There is also a medium size area of photo-induction involving the inferoapical region. The degree of photo-induction is moderate. Rest imaging showed partial improvement in this defect. In addition, there is a small area of photo-induction involving the anterior wall. The degree of photo-induction is mild. Rest imaging does not show any significant improvement in this defect. Gated SPECT imaging revealed moderate global left ventricular systolic dysfunction with severe apical and septal hypokinesis, and moderate anterior and anteroseptal hypokinesis with moderate inferior hypokinesis. The calculated left ventricular ejection fraction is 35%. IMPRESSION: Medium size, predominantly fixed, minimally reversible inferior defect. Medium size, partially reversible inferoapical defect. Small fixed anterior defect. Moderate global left ventricular systolic dysfunction with severe apical and septal hypokinesis, moderate anterior and anteroseptal hypokinesis, and moderate inferior hypokinesis. Ejection fraction 35%. These findings suggest prior infarction with moderate residual ischemia in the right coronary artery territory. In addition, there is suggestion of a small area of prior infarction in the left anterior descending coronary artery territory. JOB# [id number] ANJU/SRAVANTHI LEAHY
--- NOTE | 2019-02-23 13:07 | Event Note ---
Date: 02/23/19 S/p lexiscan MPI stress test this AM which showed moderate ischemia, EF 35%. Coronary angiography recommended for definitive diagnosis. Indications, potential risks and benefits of LHC reviewed with pt and she is agreeable to proceed with LHC in AM. NPO after MN. Pietro STANLEY NP / DR. DE LA ROSA
--- NOTE | 2019-02-23 13:38 | Progress Note ---
Assessment and Plan Assessment and plan: / Acute hypoxic respiratory failure Possibly secondary to underlying pneumonia, left pleural effusion and CHF exacerbation. She has been placed on BiPAP - now weaned off s/p thoracentesis on 02/19 drained 700cc fluid, 2-D echo showed EF of 30-35% Need assessment for home O2 requirement before discharge Pneumonia with sepsis, POA She has been started on empiric IV antibiotics, H CAP. We await blood culture results and results from the thoracentesis. ID following - will follow recommendation Acute on chronic systolic CHF We will continue patient on routine home medications. Will monitor daily weight monitor input and output. 2-D echo showed EF of 30-35%, we'll continue Lasix Cardiology following. Stress test done today, abnormal. For carduiac cath tomorrow NEELIMA, acute on CKD? This appears chronic. Will monitor BUN and creatinine, consulted nephrology Physical debility, PT recommended acute rehab DVT prophylaxis We will place on subcutaneous heparin. Full code status History Interval history: No chest pain currently Stress test this morning Hospitalist Physical - Physical exam Narrative exam: Gen: Not in acute distress, lying in bed, HEENT: Normocephalic, atraumatic Neck: supple, no JVD Heart: S1 and S2 reg, no murmurs, rubs or gallop Lungs: Clear to auscultation bilaterally, Abd: soft, non tender, non distended, normal BS, Ext: No edema, no clubbing, no cyanosis Neuro: Awake, alert, oriented X 3, no focal neurological signs - Constitutional Vitals: Temp Pulse Resp BP Pulse Ox 97.9 F 75 14 151/81 94 02/23/19 11:07 02/23/19 11:07 02/23/19 11:07 02/23/19 11:07 02/23/19 11:07 General appearance: Present: no acute distress Results - Labs CBC & Chem 7: 02/21/19 11:59 02/23/19 06:26 Labs: Laboratory Last Values WBC 13.6 K/mm3 (4.5-11.0) H 02/21/19 11:59 RBC 3.19 M/mm3 (3.65-5.03) L 02/21/19 11:59 Hgb 8.0 gm/dl (10.1-14.3) L 02/21/19 11:59 Hct 24.7 % (30.3-42.9) L 02/21/19 11:59 MCV 78 fl (79-97) L 02/21/19 11:59 MCH 25 pg (28-32) L 02/21/19 11:59 MCHC 32 % (30-34) 02/21/19 11:59 RDW 19.4 % (13.2-15.2) H 02/21/19 11:59 Plt Count 614 K/mm3 (140-440) H 02/21/19 11:59 Lymph % (Auto) 8.8 % (13.4-35.0) L 02/20/19 04:45 [place] % (Auto) 5.5 % (0.0-7.3) 02/20/19 04:45 Eos % (Auto) 0.0 % (0.0-4.3) 02/20/19 04:45 Baso % (Auto) 0.1 % (0.0-1.8) 02/20/19 04:45 Lymph # 1.6 K/mm3 (1.2-5.4) 02/20/19 04:45 [place] # 1.0 K/mm3 (0.0-0.8) H 02/20/19 04:45 Eos # 0.0 K/mm3 (0.0-0.4) 02/20/19 04:45 Baso # 0.0 K/mm3 (0.0-0.1) 02/20/19 04:45 Seg Neutrophils % 85.6 % (40.0-70.0) H 02/20/19 04:45 Seg Neutrophils # 15.9 K/mm3 (1.8-7.7) H 02/20/19 04:45 PT 15.7 Sec. (12.2-14.9) H 02/19/19 17:49 INR 1.27 (0.87-1.13) H 02/19/19 17:49 POC ABG pH 7.377 (7.35-7.45) 02/18/19 23:44 POC ABG pCO2 35.6 (35-45) 02/18/19 23:44 POC ABG pO2 253 (80-105) H 02/18/19 23:44 POC ABG HCO3 20.9 (22-26 mml/L) 02/18/19 23:44 POC ABG Total CO2 22 (23-27mmol/L) 02/18/19 23:44 POC ABG O2 Sat 100 02/18/19 23:44 POC ABG Base Excess -4 ((-2) - (+3)mmol/L) 02/18/19 23:44 FiO2 100 % 02/18/19 23:44 Sodium 132 mmol/L (137-145) L 02/23/19 06:26 Potassium 4.3 mmol/L (3.6-5.0) 02/23/19 06:26 Chloride 99.3 mmol/L (98-107) 02/23/19 06:26 Carbon Dioxide 20 mmol/L (22-30) L 02/23/19 06:26 Anion Gap 17 mmol/L 02/23/19 06:26 BUN 43 mg/dL (7-17) H 02/23/19 06:26 Creatinine 1.3 mg/dL (0.7-1.2) H 02/23/19 06:26 Estimated GFR 48 ml/min 02/23/19 06:26 BUN/Creatinine Ratio 33 % 02/23/19 06:26 Glucose 163 mg/dL (65-100) H 02/23/19 06:26 POC Glucose 186 (70-105) H 02/23/19 12:24 Calcium 8.1 mg/dL (8.4-10.2) L 02/23/19 06:26 Phosphorus 2.70 mg/dL (2.5-4.5) 02/23/19 06:26 Magnesium 1.60 mg/dL (1.7-2.3) L 02/23/19 06:26 Total Bilirubin 0.20 mg/dL (0.1-1.2) 02/18/19 23:11 AST 18 units/L (5-40) 02/18/19 23:11 ALT 7 units/L (7-56) 02/18/19 23:11 Alkaline Phosphatase 83 units/L (35-129) 02/18/19 23:11 Troponin T 0.173 ng/mL (0.00-0.029) H* 02/23/19 06:49 NT-Pro-B Natriuret Pep 4784 pg/mL (0-900) H 02/18/19 23:11 Total Protein 7.6 g/dL (6.3-8.2) 02/18/19 23:11 Albumin 2.4 g/dL (3.9-5) L 02/18/19 23:11 Albumin/Globulin Ratio 0.5 % 02/18/19 23:11 Triglycerides 118 mg/dL (2-149) 02/22/19 13:15 Cholesterol 141 mg/dL (50-199) 02/22/19 13:15 LDL Cholesterol Direct 50 mg/dL (50-130) 02/22/19 13:15 HDL Cholesterol 72 mg/dL (40-59) H 02/22/19 13:15 Cholesterol/HDL Ratio 1.95 % 02/22/19 13:15 Fluid Type Pleural 02/19/19 14:40 Fluid Color Straw 02/19/19 14:40 Fluid Appearance Hazy 02/19/19 14:40 Fluid WBC 804 /mm3 02/19/19 14:40 Fluid RBC 195 /mm3 02/19/19 14:40 Fluid Seg Neutrophils 6.0 % 02/19/19 14:40 Fluid Lymphocytes 39.0 % 02/19/19 14:40 Fluid Reactive Lymphs 0 % 02/19/19 14:40 Fluid Monocytes 19.0 % 02/19/19 14:40 Fluid Eosinophils 36.0 % 02/19/19 14:40 Fluid Basophils 0 % 02/19/19 14:40 Vancomycin Trough 11.7 ug/mL (5.0-20.0) 02/21/19 06:34 Active Medications - Current Medications Current Medications: Generic Name Dose Route Start Last Admin Trade Name Jorge Lq PRN Reason Stop Dose Admin Acetaminophen 650 mg 02/20/19 17:19 02/22/19 08:10 Tylenol PO 650 mg Q6H PRN Administration Pain, Mild (1-3) Albuterol 2.5 mg 02/20/19 23:45 02/22/19 08:12 Proventil IH 2.5 mg Q3HRT PRN Administration Shortness Of Breath Allopurinol 100 mg 02/21/19 12:15 02/23/19 12:31 Zyloprim PO 100 mg QDAY MAYLIN Administration Aspirin 325 mg 02/23/19 10:00 02/23/19 12:30 Ecotrin PO 325 mg QDAY MAYLIN Administration Atorvastatin Calcium 40 mg 02/21/19 22:00 02/22/19 21:56 Lipitor PO 40 mg QHS MAYLIN Administration Cilostazol 100 mg 02/21/19 22:00 02/23/19 12:30 Pletal PO 100 mg BID MAYLIN Administration Dextrose 0 ml 02/19/19 03:08 D50w (25gm) Syringe IV Q30MIN PRN Hypoglycemia Protocol Ferrous Sulfate 325 mg 02/22/19 10:00 02/23/19 12:31 Feosol PO 325 mg QDAY MAYLIN Administration Furosemide 40 mg 02/21/19 10:00 02/22/19 11:38 Lasix IV 40 mg DAILY MAYLIN Administration Hydralazine HCl 25 mg 02/21/19 14:00 02/23/19 09:55 Apresoline PO Not Given Q8HR MAYLIN Cefepime HCl 2 gm in 100 mls @ 200 mls/hr 02/19/19 06:00 02/23/19 07:03 Cefepime/Ns 2 Gm/100 Ml IV 200 mls/hr Q12H MAYLIN Administration Protocol Levofloxacin/Dextrose 750 mg in 150 mls @ 100 mls/hr 02/19/19 10:00 02/21/19 09:23 Levaquin 750mg/150ml IV 100 mls/hr Q48HR MAYLIN Administration Protocol Sodium Chloride 500 mls @ 50 mls/hr 02/23/19 14:00 Nacl 0.9% 500 Ml IV 02/23/19 23:59 DIRECT [facility] Insulin Human Regular 0 units 02/19/19 07:30 02/23/19 12:30 Humulin R SUB-Q 3 units ACHS MAYLIN Administration Protocol Magnesium Hydroxide 30 ml 02/19/19 03:08 Milk Of Magnesia PO Q4H PRN Constipation Magnesium Oxide 400 mg 02/23/19 11:00 02/23/19 12:31 Mag-Ox PO 400 mg BID MAYLIN Administration Methylprednisolone Sodium Succinate 40 mg 02/22/19 10:00 02/23/19 12:32 Solu-Medrol IV 40 mg Q24HR MAYLIN Administration Metoprolol Tartrate 50 mg 02/21/19 22:00 02/22/19 21:56 Metoprolol PO 50 mg BID MAYLIN Administration Morphine Sulfate 2 mg 02/19/19 03:08 02/21/19 03:33 Morphine IV 2 mg Q4H PRN Administration Pain, Moderate (4-6) Pantoprazole Sodium 40 mg 02/22/19 10:00 02/23/19 12:30 Protonix PO 40 mg QDAY MAYLIN Administration Sodium Chloride 10 ml 02/19/19 10:00 02/23/19 12:31 Sodium Chloride Flush Syringe 10 Ml IV 10 ml BID MAYLIN Administration Sodium Chloride 10 ml 02/19/19 03:08 Sodium Chloride Flush Syringe 10 Ml IV PRN PRN LINE FLUSH Nutrition/Malnutrition Assess - Dietary Evaluation Nutrition/Malnutrition Findings: Nutrition Notes Start: 02/19/19 14:03 Freq: Status: Active Protocol: Document 02/22/19 13:09 OH (Rec: 02/22/19 13:18 OH [id number]) Nutrition Notes Initial or Follow up Reassessment Current Diagnosis CKD(stage I-IV) Other Pertinent Diagnosis hyperkalemia; FARAZ atelectasis; lung malignancy Current Diet consistent CHO Labs/Tests GLU 174 Ca 8.1 Na 133 Pertinent Medications Lipitor lasix Humulin Solu medrol Height 5 ft 3 in Weight 64.5 kg Edwards Body Weight (kg) 52.27 BMI 25.2 Subjective/Other Information f/u: Pt. sitting up in bed. Pt . reports no n/v. Pt. would like extra salad. She does enjoy Glucerna. Percent of energy/protein needs met: <75/75% Burn Absent Trauma Absent GI Symptoms None Current % PO Poor (25-49%) Minimum of two criteria Yes Energy Intake (severe) < or equal to 50% Estimated Energy Requirement > or equal to 5 days Protein-Calorie Malnutrition Severe #1 Nutrition Diagnosis Inadequate oral intake Etiology poor appetite As Evidenced by Signs and Symptoms <75% meal trays consumed Is patient on ventilator? No Is Patient Ambulatory and/or Out of Bed Yes REE-([facility]-ambulatory/OOB) [ 1441.869 [id number]] Kcal/Kg value to use for calculation 30 Approximate Energy Requirements Using 1935 kcal/Kg Calculation Used for Recommendations Kcal/kg Additional Notes PRO: .8-1.2 g/kg 52-65 g/day FLUID: 1 mL/kcal Nutrition Intervention Change Diet Order: Cont consistent CHO Add Supplement/Snack (indicate name/kcal ensure enlive bid /protein ) Provides kCal: 700 Provides Protein (gm) 40 Teaching Recipient Patient Learning Readiness Fair Teaching Methods Discussion Response to Teaching Verbalize understanding Education Handouts Provided Enc pt to consume nutrient dense foods to include fruits/ vegetables/proteins at meals/ snacks. Sugg PRO supplementation at home prn. Barriers to Learning Physical,Age related,Financial ,Environmental Goal #1 po intake to exceed 75% meal trays Follow-Up By: 02/25/19 Additional Comments F/U ONS tolerance/po intake
[2019-02-23] MEDS ORDERED: SODIUM CHLORIDE 0.9% 500 ML 500 ML IV SCH (14:00)
[2019-02-23] MEDS: ACETAMINOPHEN 325 MG TAB PO PRN (14:42)
[2019-02-24] MEDS: ACETAMINOPHEN 325 MG TAB PO PRN (05:27)
[2019-02-24 06:34] LABS: Hematocrit 23.8 % (30.3-42.9); Hemoglobin 7.4 gm/dl (10.1-14.3); Mean Corpuscular HGB Conc 31 % (30-34); Mean Corpuscular Volume 80 fl (79-97); Platelet Count 608 K/mm3 (140-440); Red Blood Count 2.99 M/mm3 (3.65-5.03); Red Cell Distribution Width 19.4 % (13.2-15.2)
[2019-02-24 06:45] LABS: INR 1.2 (0.87-1.13)
[2019-02-24] MEDS: hydrALAZINE 25 MG TAB PO SCH ×3 (07:54→21:56)
[2019-02-24] MEDS: CEFEPIME/NS 2 GM/100 ML 2 GM/100 ML BAG IV SCH (07:54)
[2019-02-24 08:33] LABS: Anisocytosis 1+; Basophils % (Manual) 0 % (0.0-1.8); Eosinophils % (Manual) 0 % (0.0-4.3); Hypochromasia 1+; Target Cells 1+; Total Cells Counted 100
[2019-02-24 08:34] LABS: Platelet Estimate Consistent w Auto; Poikilocytosis Few
[2019-02-24] MEDS: INSULIN REGULAR, HUMAN 100 UNITS/1 ML SUB-Q SCH ×4 (08:58→21:55)
--- NOTE | 2019-02-24 09:30 | Progress Note ---
Assessment and Plan 1. Acute kidney injury: Mild NEELIMA superimposed on CKD stage 3, suspect vasomotor insult. Renal function is better and close to her baseline. Monitor renal function. Avoid nephrotoxic agents. Meds dosage based on GFR. 2. FEN: Hyperkalemia, improved. Metabolic acidosis, monitor. Monitor lytes. 3. Acute hypoxic respiratory failure: Possibly secondary to underlying pneumonia, left pleural effusion and CHF exacerbation. 4. Left lung cavitating lung lesion and L pleural effusion: S/p thoracentesis. 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 Followed by Pulmonary. 5. Decompaensated CHF: Lasix. 6. H/o CAD. 7. DM-2. 8. Hypertension: Monitor BP. 9. Anemia: POA. Examination: General appearance: well-developed, well-nourished, appears stated age, no distress HEENT: ATNC, SKYE, mucous membranes moist, hearing intact, vision intact Neck: neck supple, trachea midline Respiratory: ctab Heart: regular, S1S2, no murmurs Gastrointestinal: normoactive bowel sounds, not tender Integumentary: no rash, warm and dry Neurologic: no focal deficit, no asterixis Ext: trace LE edema noted Subjective Date of service: 02/24/19 Principal diagnosis: Pleural effusion Interval history: Patient was seen and examined at the bedside. Doing better. Objective - Vital Signs Vital signs: Vital Signs - 12hr 02/23/19 02/23/19 02/23/19 22:00 22:32 22:33 Temperature Pulse Rate 97 H 91 H 91 H Respiratory Rate Blood Pressure 152/59 152/59 O2 Sat by Pulse Oximetry 02/23/19 02/24/19 02/24/19 23:18 03:46 05:27 Temperature 98.2 F 98.4 F Pulse Rate 98 H 91 H Respiratory 18 18 20 Rate Blood Pressure 153/62 142/71 O2 Sat by Pulse 100 96 Oximetry 02/24/19 07:40 Temperature 98.9 F Pulse Rate 92 H Respiratory 18 Rate Blood Pressure 168/57 O2 Sat by Pulse 95 Oximetry - Lab 02/24/19 05:14 02/24/19 05:14 Most recent lab results Calcium 8.0 mg/dL (8.4-10.2) L 02/24/19 05:14 Phosphorus 2.70 mg/dL (2.5-4.5) 02/23/19 06:26 Magnesium 1.60 mg/dL (1.7-2.3) L 02/23/19 06:26 Medications & Allergies - Medications Allergies/Adverse Reactions: Allergies ibuprofen Allergy (Verified 02/18/19 23:29) Unknown Penicillins Allergy (Verified 02/18/19 23:29) Unknown Home Medications: Home Medications Medication Instructions Recorded Confirmed Last Taken Type Allopurinol 100 mg PO DAILY 12/26/18 02/19/19 Unknown History Aspirin 325 mg PO DAILY 12/26/18 02/19/19 Unknown History Cilostazol 100 mg PO BID 12/26/18 02/19/19 Unknown History Ferrous Sulfate 325 mg PO DAILY 12/26/18 02/19/19 Unknown History Metoprolol Tartrate 50 mg PO BID #60 12/29/18 02/19/19 Unknown Rx Ipratropium (Nf) [Atrovent HFA 2 puff IH Q6HR PRN #1 inha 01/11/19 02/19/19 Unknown Rx 17MCG/PUFF] Acetaminophen/Codeine [Tylenol 1 tab PO Q6H PRN #12 tab 01/21/19 02/19/19 Unknown Rx /Codeine # 3 tab] AtorvaSTATin [Lipitor] 40 mg PO QHS 02/09/19 02/19/19 Unknown History Pantoprazole [Protonix TAB] 40 mg PO QDAY #30 tablet 02/16/19 02/19/19 Unknown Rx cefUROXime [Ceftin] 500 mg PO Q12H 21 Days tablet 02/16/19 02/19/19 Unknown Rx glipiZIDE [Glucotrol] 5 mg PO BID #60 tablet 02/16/19 02/19/19 Unknown Rx hydrALAZINE [Apresoline TAB] 25 mg PO Q8HR #90 tablet 02/16/19 02/19/19 Unknown Rx metroNIDAZOLE [Flagyl] 500 mg PO Q8HR 21 Days 02/16/19 02/19/19 Unknown Rx Active Medications: Generic Name Dose Route Start Last Admin Trade Name Freq PRN Reason Stop Dose Admin Acetaminophen 650 mg 02/20/19 17:19 02/24/19 05:27 Tylenol PO 650 mg Q6H PRN Administration Pain, Mild (1-3) Albuterol 2.5 mg 02/20/19 23:45 02/22/19 08:12 Proventil IH 2.5 mg Q3HRT PRN Administration Shortness Of Breath Allopurinol 100 mg 02/21/19 12:15 02/23/19 12:31 Zyloprim PO 100 mg QDAY MAYLIN Administration Aspirin 325 mg 02/23/19 10:00 02/23/19 12:30 Ecotrin PO 325 mg QDAY MAYLIN Administration Atorvastatin Calcium 40 mg 02/21/19 22:00 02/23/19 22:33 Lipitor PO 40 mg QHS MAYLIN Administration Cilostazol 100 mg 02/21/19 22:00 02/23/19 22:33 Pletal PO 100 mg BID MAYLIN Administration Dextrose 0 ml 02/19/19 03:08 D50w (25gm) Syringe IV Q30MIN PRN Hypoglycemia Protocol Ferrous Sulfate 325 mg 02/22/19 10:00 02/23/19 12:31 Feosol PO 325 mg QDAY MAYLIN Administration Furosemide 40 mg 02/21/19 10:00 02/23/19 09:00 Lasix IV Not Given DAILY [facility] Hydralazine HCl 25 mg 02/21/19 14:00 02/24/19 07:54 Apresoline PO 25 mg Q8HR MAYLIN Administration Cefepime HCl 2 gm in 100 mls @ 200 mls/hr 02/19/19 06:00 02/24/19 07:54 Cefepime/Ns 2 Gm/100 Ml IV 02/25/19 23:59 200 mls/hr Q12H MAYLIN Administration Protocol Levofloxacin/Dextrose 750 mg in 150 mls @ 100 mls/hr 02/19/19 10:00 02/24/19 00:34 Levaquin 750mg/150ml IV 02/25/19 09:59 100 mls/hr Q48HR MAYLIN Administration Protocol Insulin Human Regular 0 units 02/19/19 07:30 02/23/19 23:02 Humulin R SUB-Q 3 units ACHS MAYLIN Administration Protocol Magnesium Hydroxide 30 ml 02/19/19 03:08 Milk Of Magnesia PO Q4H PRN Constipation Magnesium Oxide 400 mg 02/23/19 11:00 02/23/19 22:33 Mag-Ox PO 400 mg BID MAYLIN Administration Methylprednisolone Sodium Succinate 40 mg 02/22/19 10:00 02/23/19 12:32 Solu-Medrol IV 40 mg Q24HR MAYLIN Administration Metoprolol Tartrate 50 mg 02/21/19 22:00 02/23/19 22:32 Metoprolol PO 50 mg BID MAYLIN Administration Morphine Sulfate 2 mg 02/19/19 03:08 02/21/19 03:33 Morphine IV 2 mg Q4H PRN Administration Pain, Moderate (4-6) Pantoprazole Sodium 40 mg 02/22/19 10:00 02/23/19 12:30 Protonix PO 40 mg QDAY MAYLIN Administration Sodium Chloride 10 ml 02/19/19 10:00 02/23/19 22:34 Sodium Chloride Flush Syringe 10 Ml IV 10 ml BID MAYLIN Administration Sodium Chloride 10 ml 02/19/19 03:08 Sodium Chloride Flush Syringe 10 Ml IV PRN PRN LINE FLUSH
[2019-02-24] MEDS: methylPREDNISolone Sod Succinate 40 MG/1 ML INJ IV SCH (10:11)
[2019-02-24] MEDS: FERROUS SULFATE 325 MG TAB PO SCH (10:11)
[2019-02-24] MEDS: ASPIRIN EC 325 MG TAB PO SCH (10:11)
[2019-02-24] MEDS: CILOSTAZOL 100 MG TAB PO SCH ×2 (10:11→21:56)
[2019-02-24] MEDS: allopurinoL 100 MG TAB PO SCH (10:11)
[2019-02-24] MEDS: PANTOPRAZOLE 40 MG TAB PO SCH (10:11)
[2019-02-24] MEDS: MAGNESIUM OXIDE 400 MG TAB PO SCH ×2 (10:11→21:56)
[2019-02-24] MEDS: METOPROLOL TARTRATE 50 MG TAB PO SCH ×2 (10:11→21:56)
--- NOTE | 2019-02-24 11:53 | Progress Note ---
Assessment and Plan C has been cancelled in setting of anemia. Additionally, pathology from thoracentesis is suggestive of squamous cell carcinoma and pt may be pending biopsy per pulmonary. Recommend further evaluation of anemia per primary - consider GI consultation. We will optimize pt's anti-ischemic regimen and can consider coronary angiography once medically stabilized as OP. The patient has been seen in conjunction with Dr. Pierce who agrees with the assessment and plan of care. - Patient Problems (1) Acute respiratory distress Current Visit: Yes Status: Acute (2) Pneumonia Current Visit: Yes Status: Suspected Qualifiers: Pneumonia type: due to unspecified organism Laterality: left Lung location: lower lobe of lung Qualified Code(s): J18.9 - Pneumonia, unspecified organism (3) Pleural effusion Current Visit: Yes Status: Acute (4) Chest pain Current Visit: Yes Status: Acute (5) Acute HFrEF (heart failure with reduced ejection fraction) Current Visit: Yes Status: Acute (6) Cardiomyopathy Current Visit: Yes Status: Chronic (7) CAD (coronary artery disease) Current Visit: Yes Status: Chronic (8) Stented coronary artery Current Visit: Yes Status: Chronic (9) HTN (hypertension) Current Visit: Yes Status: Chronic (10) Diabetes Current Visit: Yes Status: Chronic (11) Renal insufficiency Current Visit: Yes Status: Acute (12) Anemia Current Visit: Yes Status: Acute (13) Polycythemia Current Visit: Yes Status: Acute (14) Former tobacco use Current Visit: Yes Status: Chronic (15) NSTEMI (non-ST elevated myocardial infarction) Current Visit: Yes Status: Acute Plan to address problem: type II (16) Abnormal stress test Current Visit: Yes Status: Acute Subjective Date of service: 02/24/19 Principal diagnosis: Pleural effusion Interval history: resting in bed, no current complaints. in SR. Objective Last Vital Signs Temp 98.9 F 02/24/19 07:40 Pulse 91 H 02/24/19 10:00 Resp 22 02/24/19 10:00 BP 168/57 02/24/19 07:40 Pulse Ox 95 02/24/19 10:00 - Physical Examination General: No Apparent Distress HEENT: Positive: PERRL, Normocephaly, Mucus Membranes Moist Neck: Positive: neck supple, trachea midline Cardiac: Positive: Reg Rate and Rhythm, S1/S2 Lungs: Positive: Decreased Breath Sounds, Oxygen Neuro: Positive: Grossly Intact Abdomen: Negative: Tender Skin: Negative: Rash Musculoskeletal: No Pain Extremities: Present: edema (trace BLE) - Labs and Meds Coagulation 02/24/19 Range/Units 05:14 PT 15.1 H (12.2-14.9) Sec. INR 1.20 H (0.87-1.13) CBC 02/24/19 Range/Units 05:14 WBC 20.8 H (4.5-11.0) K/mm3 RBC 2.99 L (3.65-5.03) M/mm3 Hgb 7.4 L (10.1-14.3) gm/dl Hct 23.8 L (30.3-42.9) % Plt Count 608 H (140-440) K/mm3 Comprehensive Metabolic Panel 02/24/19 Range/Units 05:14 Sodium 137 (137-145) mmol/L Potassium 4.4 (3.6-5.0) mmol/L Chloride 104.6 (98-107) mmol/L Carbon Dioxide 19 L (22-30) mmol/L BUN 38 H (7-17) mg/dL Creatinine 1.2 (0.7-1.2) mg/dL Glucose 168 H (65-100) mg/dL Calcium 8.0 L (8.4-10.2) mg/dL - Imaging and Cardiology EKG: report reviewed, image reviewed Echo: report reviewed (02/19/2019 showed EF 30-35%, impaired relaxation, mild MR and TR, RVSP 46mmHg, basal anterior, mid anterior and apical anterior wall segments hypokinetic, mid inferoseptal and apical septal wall segments akinetic. ) - EKG Sinus rhythms and dysrhythmias: sinus rhythm Myocardial infarction: anterior KS (old age or i
--- NOTE | 2019-02-24 13:46 | Progress Note ---
Assessment and Plan 73 y/o female, former smoker admitted with worsening dyspnea, found to have moderate left sided pleural effusion. 1. 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 Suggest more tissue and feel that CT guided biopsy is best as the path department had a difficult time with specimen from bronch. Spoke with IMS about CT guided biopsy. Once done patient will need Onc follow up and likely and outpatient pet scan. Cardiology has suspended further work up because of anemia. Will need to be complete to assess risk for further treatment/options in regards to malignancy down the line. Subjective Date of service: 02/24/19 Principal diagnosis: Pleural effusion Interval history: Path second opinion came back from brushing with squamous cell carcinoma. The do recommend more tissues. Patient did not get cath this am. Spoke with patient at bedside. Unfortunately, daughter was not present. Objective Vital Signs - 12hr 02/24/19 02/24/19 02/24/19 03:46 05:27 07:40 Temperature 98.4 F 98.9 F Pulse Rate 91 H 92 H Respiratory 18 20 18 Rate Blood Pressure 142/71 168/57 O2 Sat by Pulse 96 95 Oximetry 02/24/19 02/24/19 10:00 11:32 Temperature 97.9 F Pulse Rate 91 H 93 H Respiratory 22 18 Rate Blood Pressure 157/63 O2 Sat by Pulse 95 96 Oximetry Constitutional: no acute distress, alert Eyes: non-icteric ENT: oropharynx moist Neck: supple Effort: normal Ascultation: Right: clear, Left: rales, egophony, Bilateral: diminished breath sounds (bases), wheezes Cardiovascular: regular rate and rhythm (no mrg) Gastrointestinal: normoactive bowel sounds, soft, non-tender, non-distended Integumentary: normal Extremities: no cyanosis, no edema, pink and warm Neurologic: normal mental status, non-focal exam, pupils equal and round Psychiatric: mood appropriate, affect normal CBC and BMP: 02/24/19 05:14 02/24/19 05:14 ABG, PT/INR, D-dimer: ABG POC ABG pH 7.377 (7.35-7.45) 02/18/19 23:44 POC ABG pCO2 35.6 (35-45) 02/18/19 23:44 POC ABG pO2 253 (80-105) H 02/18/19 23:44 POC ABG HCO3 20.9 (22-26 mml/L) 02/18/19 23:44 POC ABG Total CO2 22 (23-27mmol/L) 02/18/19 23:44 POC ABG O2 Sat 100 02/18/19 23:44 PT/INR, D-dimer PT 15.1 Sec. (12.2-14.9) H 02/24/19 05:14 INR 1.20 (0.87-1.13) H 02/24/19 05:14 Abnormal lab findings: Abnormal Labs 02/18/19 02/18/19 02/18/19 23:11 23:11 23:11 WBC 14.5 H RBC 3.33 L Hgb 8.3 L Hct 26.2 L MCV MCH 25 L RDW 19.4 H Plt Count 582 H Lymph % (Auto) Owen % (Auto) 10.5 H Owen # 1.5 H Baso # 0.2 H Seg Neutrophils % 73.2 H Seg Neuts % (Manual) Lymphocytes % (Manual) Monocytes % (Manual) Seg Neutrophils # 10.6 H Seg Neutrophils # Man Monocytes # (Manual) PT INR POC ABG pO2 Sodium 136 L Potassium Carbon Dioxide 18 L BUN 26 H Creatinine 1.3 H Glucose 118 H POC Glucose Calcium Magnesium Troponin T NT-Pro-B Natriuret Pep 4784 H Albumin 2.4 L HDL Cholesterol 02/18/19 02/19/19 02/19/19 23:44 08:09 12:03 WBC RBC Hgb Hct MCV MCH RDW Plt Count Lymph % (Auto) Owen % (Auto) Owen # Baso # Seg Neutrophils % Seg Neuts % (Manual) Lymphocytes % (Manual) Monocytes % (Manual) Seg Neutrophils # Seg Neutrophils # Man Monocytes # (Manual) PT INR POC ABG pO2 253 H Sodium Potassium Carbon Dioxide BUN Creatinine Glucose POC Glucose 224 H 187 H Calcium Magnesium Troponin T NT-Pro-B Natriuret Pep Albumin HDL Cholesterol 02/19/19 02/19/19 02/19/19 17:49 18:22 22:24 WBC RBC Hgb Hct MCV MCH RDW Plt Count Lymph % (Auto) [place] % (Auto) Owen # Baso # Seg Neutrophils % Seg Neuts % (Manual) Lymphocytes % (Manual) Monocytes % (Manual) Seg Neutrophils # Seg Neutrophils # Man Monocytes # (Manual) PT 15.7 H INR 1.27 H POC ABG pO2 Sodium Potassium Carbon Dioxide BUN Creatinine Glucose POC Glucose 239 H 170 H Calcium Magnesium Troponin T NT-Pro-B Natriuret Pep Albumin HDL Cholesterol 02/20/19 02/20/19 02/20/19 04:45 04:45 11:17 WBC 18.6 H RBC 3.07 L Hgb 7.4 L Hct 23.8 L MCV 78 L MCH 24 L RDW 19.4 H Plt Count 596 H Lymph % (Auto) 8.8 L Owen % (Auto) Owen # 1.0 H Baso # Seg Neutrophils % 85.6 H Seg Neuts % (Manual) Lymphocytes % (Manual) Monocytes % (Manual) Seg Neutrophils # 15.9 H Seg Neutrophils # Man Monocytes # (Manual) PT INR POC ABG pO2 Sodium Potassium 5.2 H D Carbon Dioxide 19 L BUN 36 H Creatinine 1.6 H Glucose POC Glucose 160 H Calcium Magnesium Troponin T NT-Pro-B Natriuret Pep Albumin HDL Cholesterol 02/20/19 02/20/19 02/21/19 15:39 20:37 06:34 WBC RBC Hgb Hct MCV MCH RDW Plt Count Lymph % (Auto) [place] % (Auto) Owen # Baso # Seg Neutrophils % Seg Neuts % (Manual) Lymphocytes % (Manual) Monocytes % (Manual) Seg Neutrophils # Seg Neutrophils # Man Monocytes # (Manual) PT INR POC ABG pO2 Sodium 135 L Potassium 5.3 H Carbon Dioxide 17 L BUN 36 H Creatinine 1.5 H Glucose 179 H POC Glucose 147 H 146 H Calcium Magnesium Troponin T NT-Pro-B Natriuret Pep Albumin HDL Cholesterol 02/21/19 02/21/19 02/21/19 07:39 11:45 11:59 WBC 13.6 H RBC 3.19 L Hgb 8.0 L Hct 24.7 L MCV 78 L MCH 25 L RDW 19.4 H Plt Count 614 H Lymph % (Auto) [place] % (Auto) Owen # Baso # Seg Neutrophils % Seg Neuts % (Manual) Lymphocytes % (Manual) Monocytes % (Manual) Seg Neutrophils # Seg Neutrophils # Man Monocytes # (Manual) PT INR POC ABG pO2 Sodium Potassium Carbon Dioxide BUN Creatinine Glucose POC Glucose 184 H 268 H Calcium Magnesium Troponin T NT-Pro-B Natriuret Pep Albumin HDL Cholesterol 02/21/19 02/21/19 02/22/19 15:41 20:43 00:44 WBC RBC Hgb Hct MCV MCH RDW Plt Count Lymph % (Auto) Owen % (Auto) Owen # Baso # Seg Neutrophils % Seg Neuts % (Manual) Lymphocytes % (Manual) Monocytes % (Manual) Seg Neutrophils # Seg Neutrophils # Man Monocytes # (Manual) PT INR POC ABG pO2 Sodium 133 L Potassium Carbon Dioxide 19 L BUN 37 H Creatinine 1.5 H Glucose 139 H POC Glucose 278 H 251 H Calcium 8.1 L Magnesium Troponin T NT-Pro-B Natriuret Pep Albumin HDL Cholesterol 02/22/19 02/22/19 02/22/19 08:04 12:24 13:15 WBC RBC Hgb Hct MCV MCH RDW Plt Count Lymph % (Auto) [place] % (Auto) Owen # Baso # Seg Neutrophils % Seg Neuts % (Manual) Lymphocytes % (Manual) Monocytes % (Manual) Seg Neutrophils # Seg Neutrophils # Man Monocytes # (Manual) PT INR POC ABG pO2 Sodium Potassium Carbon Dioxide BUN Creatinine Glucose POC Glucose 124 H 174 H Calcium Magnesium Troponin T 0.208 H* D NT-Pro-B Natriuret Pep Albumin HDL Cholesterol 72 H 02/22/19 02/22/19 02/23/19 15:56 21:30 06:26 WBC RBC Hgb Hct MCV MCH RDW Plt Count Lymph % (Auto) Owen % (Auto) Owen # Baso # Seg Neutrophils % Seg Neuts % (Manual) Lymphocytes % (Manual) Monocytes % (Manual) Seg Neutrophils # Seg Neutrophils # Man Monocytes # (Manual) PT INR POC ABG pO2 Sodium 132 L Potassium Carbon Dioxide 20 L BUN 43 H Creatinine 1.3 H Glucose 163 H POC Glucose 359 H 398 H Calcium 8.1 L Magnesium 1.60 L Troponin T NT-Pro-B Natriuret Pep Albumin HDL Cholesterol 02/23/19 02/23/19 02/23/19 06:49 07:43 12:24 WBC RBC Hgb Hct MCV MCH RDW Plt Count Lymph % (Auto) Owen % (Auto) Owen # Baso # Seg Neutrophils % Seg Neuts % (Manual) Lymphocytes % (Manual) Monocytes % (Manual) Seg Neutrophils # Seg Neutrophils # Man Monocytes # (Manual) PT INR POC ABG pO2 Sodium Potassium Carbon Dioxide BUN Creatinine Glucose POC Glucose 183 H 186 H Calcium Magnesium Troponin T 0.173 H* NT-Pro-B Natriuret Pep Albumin HDL Cholesterol 02/23/19 02/23/19 02/24/19 17:09 21:47 05:14 WBC 20.8 H RBC 2.99 L Hgb 7.4 L Hct 23.8 L MCV MCH 25 L RDW 19.4 H Plt Count 608 H Lymph % (Auto) Owen % (Auto) Owen # Baso # Seg Neutrophils % Seg Neuts % (Manual) 85.0 H Lymphocytes % (Manual) 7.0 L Monocytes % (Manual) 8.0 H Seg Neutrophils # Seg Neutrophils # Man 17.7 H Monocytes # (Manual) 1.7 H PT INR POC ABG pO2 Sodium Potassium Carbon Dioxide BUN Creatinine Glucose POC Glucose 245 H 203 H Calcium Magnesium Troponin T NT-Pro-B Natriuret Pep Albumin HDL Cholesterol 02/24/19 02/24/19 02/24/19 05:14 05:14 07:47 WBC RBC Hgb Hct MCV MCH RDW Plt Count Lymph % (Auto) Owen % (Auto) Owen # Baso # Seg Neutrophils % Seg Neuts % (Manual) Lymphocytes % (Manual) Monocytes % (Manual) Seg Neutrophils # Seg Neutrophils # Man Monocytes # (Manual) PT 15.1 H INR 1.20 H POC ABG pO2 Sodium Potassium Carbon Dioxide 19 L BUN 38 H Creatinine Glucose 168 H POC Glucose 180 H Calcium 8.0 L Magnesium Troponin T 0.216 H* D NT-Pro-B Natriuret Pep Albumin HDL Cholesterol 02/24/19 11:39 WBC RBC Hgb Hct MCV MCH RDW Plt Count Lymph % (Auto) Owen % (Auto) Owen # Baso # Seg Neutrophils % Seg Neuts % (Manual) Lymphocytes % (Manual) Monocytes % (Manual) Seg Neutrophils # Seg Neutrophils # Man Monocytes # (Manual) PT INR POC ABG pO2 Sodium Potassium Carbon Dioxide BUN Creatinine Glucose POC Glucose 227 H Calcium Magnesium Troponin T NT-Pro-B Natriuret Pep Albumin HDL Cholesterol
[2019-02-24] MEDS ORDERED: FUROSEMIDE 40 MG TAB PO SCH (14:00)
--- NOTE | 2019-02-24 22:18 | Progress Note ---
Assessment and Plan Assessment and plan: / Acute hypoxic respiratory failure Possibly secondary to underlying pneumonia, left pleural effusion and CHF exacerbation. She has been placed on BiPAP - now weaned off s/p thoracentesis on 02/19 drained 700cc fluid, 2-D echo showed EF of 30-35% Need assessment for home O2 requirement before discharge Pneumonia with sepsis, POA She has been started on empiric IV antibiotics, H CAP. We await blood culture results and results from the thoracentesis. ID following - will follow recommendation Lef pleural effusion Thoracentesis done 02/[address] Carey that prelim path suggests squmous cell ca therfore CT biopsy lung FARAZ Anemia Obtain stool occult blood consult GI if stool occult blood positive Acute on chronic systolic CHF We will continue patient on routine home medications. Will monitor daily weight monitor input and output. 2-D echo showed EF of 30-35%, we'll continue Lasix Cardiology following. Stress test done 02/23 abnormal. Was scheduled for cardiac cath but canceled because of anemia NEELIMA, acute on CKD? This appears chronic. Will monitor BUN and creatinine, consulted nephrology, following Physical debility, PT recommended acute rehab DVT prophylaxis SCDs only for now because pending lung biopsy Full code status History Interval history: No chest pain currently Hospitalist Physical - Physical exam Narrative exam: Gen: Not in acute distress, lying in bed, HEENT: Normocephalic, atraumatic Neck: supple, no JVD Heart: S1 and S2 reg, no murmurs, rubs or gallop Lungs: Clear to auscultation bilaterally, Abd: soft, non tender, non distended, normal BS, Ext: No edema, no clubbing, no cyanosis Neuro: Awake, alert, oriented X 3, no focal neurological signs - Constitutional Vitals: Temp Pulse Resp BP Pulse Ox 98.0 F 86 18 148/67 99 02/24/19 20:01 02/24/19 21:56 02/24/19 20:01 02/24/19 21:56 02/24/19 20:01 General appearance: Present: no acute distress Results - Labs CBC & Chem 7: 02/24/19 05:14 02/24/19 05:14 Labs: Laboratory Last Values WBC 20.8 K/mm3 (4.5-11.0) H 02/24/19 05:14 RBC 2.99 M/mm3 (3.65-5.03) L 02/24/19 05:14 Hgb 7.4 gm/dl (10.1-14.3) L 02/24/19 05:14 Hct 23.8 % (30.3-42.9) L 02/24/19 05:14 MCV 80 fl (79-97) 02/24/19 05:14 MCH 25 pg (28-32) L 02/24/19 05:14 MCHC 31 % (30-34) 02/24/19 05:14 RDW 19.4 % (13.2-15.2) H 02/24/19 05:14 Plt Count 608 K/mm3 (140-440) H 02/24/19 05:14 Lymph % (Auto) 8.8 % (13.4-35.0) L 02/20/19 04:45 [place] % (Auto) 5.5 % (0.0-7.3) 02/20/19 04:45 Eos % (Auto) 0.0 % (0.0-4.3) 02/20/19 04:45 Baso % (Auto) 0.1 % (0.0-1.8) 02/20/19 04:45 Lymph # 1.6 K/mm3 (1.2-5.4) 02/20/19 04:45 [place] # 1.0 K/mm3 (0.0-0.8) H 02/20/19 04:45 Eos # 0.0 K/mm3 (0.0-0.4) 02/20/19 04:45 Baso # 0.0 K/mm3 (0.0-0.1) 02/20/19 04:45 Add Manual Diff Complete 02/24/19 05:14 Total Counted 100 02/24/19 05:14 Seg Neutrophils % 85.6 % (40.0-70.0) H 02/20/19 04:45 Seg Neuts % (Manual) 85.0 % (40.0-70.0) H 02/24/19 05:14 Band Neutrophils % 0 % 02/24/19 05:14 Lymphocytes % (Manual) 7.0 % (13.4-35.0) L 02/24/19 05:14 Reactive Lymphs % (Man) 0 % 02/24/19 05:14 Monocytes % (Manual) 8.0 % (0.0-7.3) H 02/24/19 05:14 Eosinophils % (Manual) 0 % (0.0-4.3) 02/24/19 05:14 Basophils % (Manual) 0 % (0.0-1.8) 02/24/19 05:14 Metamyelocytes % 0 % 02/24/19 05:14 Myelocytes % 0 % 02/24/19 05:14 Promyelocytes % 0 % 02/24/19 05:14 Blast Cells % 0 % 02/24/19 05:14 Nucleated RBC % Not Reportable 02/24/19 05:14 Seg Neutrophils # 15.9 K/mm3 (1.8-7.7) H 02/20/19 04:45 Seg Neutrophils # Man 17.7 K/mm3 (1.8-7.7) H 02/24/19 05:14 Band Neutrophils # 0.0 K/mm3 02/24/19 05:14 Lymphocytes # (Manual) 1.5 K/mm3 (1.2-5.4) 02/24/19 05:14 Abs React Lymphs (Man) 0.0 K/mm3 02/24/19 05:14 Monocytes # (Manual) 1.7 K/mm3 (0.0-0.8) H 02/24/19 05:14 Eosinophils # (Manual) 0.0 K/mm3 (0.0-0.4) 02/24/19 05:14 Basophils # (Manual) 0.0 K/mm3 (0.0-0.1) 02/24/19 05:14 Metamyelocytes # 0.0 K/mm3 02/24/19 05:14 Myelocytes # 0.0 K/mm3 02/24/19 05:14 Promyelocytes # 0.0 K/mm3 02/24/19 05:14 Blast Cells # 0.0 K/mm3 02/24/19 05:14 WBC Morphology Not Reportable 02/24/19 05:14 Hypersegmented Neuts Not Reportable 02/24/19 05:14 Hyposegmented Neuts Not Reportable 02/24/19 05:14 Hypogranular Neuts Not Reportable 02/24/19 05:14 Smudge Cells Not Reportable 02/24/19 05:14 Toxic Granulation Not Reportable 02/24/19 05:14 Toxic Vacuolation Not Reportable 02/24/19 05:14 Dohle Bodies Not Reportable 02/24/19 05:14 Pelger-Huet Anomaly Not Reportable 02/24/19 05:14 Jessica Rods Not Reportable 02/24/19 05:14 Platelet Estimate Consistent w auto 02/24/19 05:14 Clumped Platelets Not Reportable 02/24/19 05:14 Plt Clumps, EDTA Not Reportable 02/24/19 05:14 Large Platelets Not Reportable 02/24/19 05:14 Giant Platelets Not Reportable 02/24/19 05:14 Platelet Satelliting Not Reportable 02/24/19 05:14 Plt Morphology Comment Not Reportable 02/24/19 05:14 RBC Morphology Not Reportable 02/24/19 05:14 Dimorphic RBCs Not Reportable 02/24/19 05:14 Polychromasia Not Reportable 02/24/19 05:14 Hypochromasia 1+ 02/24/19 05:14 Poikilocytosis Few 02/24/19 05:14 Anisocytosis 1+ 02/24/19 05:14 Microcytosis Not Reportable 02/24/19 05:14 Macrocytosis Not Reportable 02/24/19 05:14 Spherocytes Not Reportable 02/24/19 05:14 Pappenheimer Bodies Not Reportable 02/24/19 05:14 Sickle Cells Not Reportable 02/24/19 05:14 Target Cells 1+ 02/24/19 05:14 Tear Drop Cells Not Reportable 02/24/19 05:14 Ovalocytes Not Reportable 02/24/19 05:14 Helmet Cells Not Reportable 02/24/19 05:14 [place] Bodies Not Reportable 02/24/19 05:14 [place] Rings Not Reportable 02/24/19 05:14 Lora Cells Not Reportable 02/24/19 05:14 Bite Cells Not Reportable 02/24/19 05:14 Crenated Cell Not Reportable 02/24/19 05:14 Elliptocytes Few 02/24/19 05:14 Acanthocytes (Spur) Not Reportable 02/24/19 05:14 Rouleaux Not Reportable 02/24/19 05:14 Hemoglobin C Crystals Not Reportable 02/24/19 05:14 Schistocytes Not Reportable 02/24/19 05:14 Malaria parasites Not Reportable 02/24/19 05:14 Galen Bodies Not Reportable 02/24/19 05:14 Hem Pathologist Commnt No 02/24/19 05:14 PT 15.1 Sec. (12.2-14.9) H 02/24/19 05:14 INR 1.20 (0.87-1.13) H 02/24/19 05:14 POC ABG pH 7.377 (7.35-7.45) 02/18/19 23:44 POC ABG pCO2 35.6 (35-45) 02/18/19 23:44 POC ABG pO2 253 (80-105) H 02/18/19 23:44 POC ABG HCO3 20.9 (22-26 mml/L) 02/18/19 23:44 POC ABG Total CO2 22 (23-27mmol/L) 02/18/19 23:44 POC ABG O2 Sat 100 02/18/19 23:44 POC ABG Base Excess -4 ((-2) - (+3)mmol/L) 02/18/19 23:44 FiO2 100 % 02/18/19 23:44 Sodium 137 mmol/L (137-145) 02/24/19 05:14 Potassium 4.4 mmol/L (3.6-5.0) 02/24/19 05:14 Chloride 104.6 mmol/L (98-107) 02/24/19 05:14 Carbon Dioxide 19 mmol/L (22-30) L 02/24/19 05:14 Anion Gap 18 mmol/L 02/24/19 05:14 BUN 38 mg/dL (7-17) H 02/24/19 05:14 Creatinine 1.2 mg/dL (0.7-1.2) 02/24/19 05:14 Estimated GFR 53 ml/min 02/24/19 05:14 BUN/Creatinine Ratio 32 % 02/24/19 05:14 Glucose 168 mg/dL (65-100) H 02/24/19 05:14 POC Glucose 310 (70-105) H 02/24/19 20:56 Calcium 8.0 mg/dL (8.4-10.2) L 02/24/19 05:14 Phosphorus 2.70 mg/dL (2.5-4.5) 02/23/19 06:26 Magnesium 1.60 mg/dL (1.7-2.3) L 02/23/19 06:26 Total Bilirubin 0.20 mg/dL (0.1-1.2) 02/18/19 23:11 AST 18 units/L (5-40) 02/18/19 23:11 ALT 7 units/L (7-56) 02/18/19 23:11 Alkaline Phosphatase 83 units/L (35-129) 02/18/19 23:11 Troponin T 0.216 ng/mL (0.00-0.029) H* D 02/24/19 05:14 NT-Pro-B Natriuret Pep 4784 pg/mL (0-900) H 02/18/19 23:11 Total Protein 7.6 g/dL (6.3-8.2) 02/18/19 23:11 Albumin 2.4 g/dL (3.9-5) L 02/18/19 23:11 Albumin/Globulin Ratio 0.5 % 02/18/19 23:11 Triglycerides 118 mg/dL (2-149) 02/22/19 13:15 Cholesterol 141 mg/dL (50-199) 02/22/19 13:15 LDL Cholesterol Direct 50 mg/dL (50-130) 02/22/19 13:15 HDL Cholesterol 72 mg/dL (40-59) H 02/22/19 13:15 Cholesterol/HDL Ratio 1.95 % 02/22/19 13:15 Fluid Type Pleural 02/19/19 14:40 Fluid Color Straw 02/19/19 14:40 Fluid Appearance Hazy 02/19/19 14:40 Fluid WBC 804 /mm3 02/19/19 14:40 Fluid RBC 195 /mm3 02/19/19 14:40 Fluid Seg Neutrophils 6.0 % 02/19/19 14:40 Fluid Lymphocytes 39.0 % 02/19/19 14:40 Fluid Reactive Lymphs 0 % 02/19/19 14:40 Fluid Monocytes 19.0 % 02/19/19 14:40 Fluid Eosinophils 36.0 % 02/19/19 14:40 Fluid Basophils 0 % 02/19/19 14:40 Vancomycin Trough 11.7 ug/mL (5.0-20.0) 02/21/19 06:34 AFB Identification 02/19/19 14:40 Fungal Id Prelim 02/19/19 14:40 Active Medications - Current Medications Current Medications: Generic Name Dose Route Start Last Admin Trade Name Freq PRN Reason Stop Dose Admin Acetaminophen 650 mg 02/20/19 17:19 02/24/19 05:27 Tylenol PO 650 mg Q6H PRN Administration Pain, Mild (1-3) Albuterol 2.5 mg 02/20/19 23:45 02/22/19 08:12 Proventil IH 2.5 mg Q3HRT PRN Administration Shortness Of Breath Allopurinol 100 mg 02/21/19 12:15 02/24/19 10:11 Zyloprim PO 100 mg QDAY MAYLIN Administration Aspirin 325 mg 02/23/19 10:00 02/24/19 10:11 Ecotrin PO 325 mg QDAY MAYLIN Administration Atorvastatin Calcium 40 mg 02/21/19 22:00 02/24/19 21:56 Lipitor PO 40 mg QHS MAYLIN Administration Cilostazol 100 mg 02/21/19 22:00 02/24/19 21:56 Pletal PO 100 mg BID MAYLIN Administration Dextrose 0 ml 02/19/19 03:08 D50w (25gm) Syringe IV Q30MIN PRN Hypoglycemia Protocol Ferrous Sulfate 325 mg 02/22/19 10:00 02/24/19 10:11 Feosol PO 325 mg QDAY MAYLIN Administration Furosemide 40 mg 02/24/19 14:00 Lasix PO DAILY@0600 MAYLIN Hydralazine HCl 25 mg 02/21/19 14:00 02/24/19 21:56 Apresoline PO 25 mg Q8HR MAYLIN Administration Cefepime HCl 2 gm in 100 mls @ 200 mls/hr 02/19/19 06:00 02/24/19 07:54 Cefepime/Ns 2 Gm/100 Ml IV 02/25/19 23:59 200 mls/hr Q12H MAYLIN Administration Protocol Levofloxacin/Dextrose 750 mg in 150 mls @ 100 mls/hr 02/19/19 10:00 02/24/19 00:34 Levaquin 750mg/150ml IV 02/25/19 09:59 100 mls/hr Q48HR MAYLIN Administration Protocol Insulin Human Regular 0 units 02/19/19 07:30 02/24/19 21:55 Humulin R SUB-Q 8 units ACHS MAYLIN Administration Protocol Isosorbide Mononitrate 30 mg 02/24/19 12:00 02/24/19 12:59 Imdur PO 30 mg QDAY MAYLIN Administration Magnesium Hydroxide 30 ml 02/19/19 03:08 Milk Of Magnesia PO Q4H PRN Constipation Magnesium Oxide 400 mg 02/23/19 11:00 02/24/19 21:56 Mag-Ox PO 400 mg BID MAYLIN Administration Methylprednisolone Sodium Succinate 40 mg 02/22/19 10:00 02/24/19 10:11 Solu-Medrol IV 40 mg Q24HR MAYLIN Administration Metoprolol Tartrate 50 mg 02/21/19 22:00 02/24/19 21:56 Metoprolol PO 50 mg BID MAYLIN Administration Morphine Sulfate 2 mg 02/19/19 03:08 02/21/19 03:33 Morphine IV 2 mg Q4H PRN Administration Pain, Moderate (4-6) Pantoprazole Sodium 40 mg 02/22/19 10:00 02/24/19 10:11 Protonix PO 40 mg QDAY MAYLIN Administration Sodium Chloride 10 ml 02/19/19 10:00 02/24/19 21:56 Sodium Chloride Flush Syringe 10 Ml IV 10 ml BID MAYLIN Administration Sodium Chloride 10 ml 02/19/19 03:08 Sodium Chloride Flush Syringe 10 Ml IV PRN PRN LINE FLUSH Nutrition/Malnutrition Assess - Dietary Evaluation Nutrition/Malnutrition Findings: Nutrition Notes Start: 02/19/19 14:03 Freq: Status: Active Protocol: Document 02/22/19 13:09 OH (Rec: 02/22/19 13:18 OH [id number]) Nutrition Notes Initial or Follow up Reassessment Current Diagnosis CKD(stage I-IV) Other Pertinent Diagnosis hyperkalemia; FARAZ atelectasis; lung malignancy Current Diet consistent CHO Labs/Tests GLU 174 Ca 8.1 Na 133 Pertinent Medications Lipitor lasix Humulin Solu medrol Height 5 ft 3 in Weight 64.5 kg [place] Body Weight (kg) 52.27 BMI 25.2 Subjective/Other Information f/u: Pt. sitting up in bed. Pt . reports no n/v. Pt. would like extra salad. She does enjoy Glucerna. Percent of energy/protein needs met: <75/75% Burn Absent Trauma Absent GI Symptoms None Current % PO Poor (25-49%) Minimum of two criteria Yes Energy Intake (severe) < or equal to 50% Estimated Energy Requirement > or equal to 5 days Protein-Calorie Malnutrition Severe #1 Nutrition Diagnosis Inadequate oral intake Etiology poor appetite As Evidenced by Signs and Symptoms <75% meal trays consumed Is patient on ventilator? No Is Patient Ambulatory and/or Out of Bed Yes REE-([place]-amb[facility]/OOB) [ 1441.869 [id number]] Kcal/Kg value to use for calculation 30 Approximate Energy Requirements Using 1935 kcal/Kg Calculation Used for Recommendations Kcal/kg Additional Notes PRO: .8-1.2 g/kg 52-65 g/day FLUID: 1 mL/kcal Nutrition Intervention Change Diet Order: Cont consistent CHO Add Supplement/Snack (indicate name/kcal ensure enlive bid /protein ) Provides kCal: 700 Provides Protein (gm) 40 Teaching Recipient Patient Learning Readiness Fair Teaching Methods Discussion Response to Teaching Verbalize understanding Education Handouts Provided Enc pt to consume nutrient dense foods to include fruits/ vegetables/proteins at meals/ snacks. Sugg PRO supplementation at home prn. Barriers to Learning Physical,Age related,Financial ,Environmental Goal #1 po intake to exceed 75% meal trays Follow-Up By: 02/25/19 Additional Comments F/U ONS tolerance/po intake
[2019-02-25] MEDS: hydrALAZINE 25 MG TAB PO SCH ×3 (05:19→21:40)
[2019-02-25] MEDS: CEFEPIME/NS 2 GM/100 ML 2 GM/100 ML BAG IV SCH ×3 (05:20→19:00)
[2019-02-25 06:11] LABS: Hematocrit 23.5 % (30.3-42.9); Hemoglobin 7.4 gm/dl (10.1-14.3); Mean Corpuscular HGB Conc 32 % (30-34); Mean Corpuscular Volume 79 fl (79-97); Platelet Count 575 K/mm3 (140-440); Red Blood Count 2.96 M/mm3 (3.65-5.03); Red Cell Distribution Width 19.4 % (13.2-15.2)
[2019-02-25 06:26] LABS: Calcium 8.3 mg/dL (8.4-10.2)
[2019-02-25 08:15] LABS: LDH,Body Fluid 131; Total Protein,Body Fluid 3.3 (15.0-45.0)
[2019-02-25] MEDS: INSULIN REGULAR, HUMAN 100 UNITS/1 ML SUB-Q SCH ×4 (08:54→21:44)
[2019-02-25] MEDS: INSULIN NPH/REGULAR 70/30 INJ SUB-Q SCH ×2 (09:00→17:56)
[2019-02-25] MEDS: ALBUTEROL 2.5 MG/3 ML NEBU IH PRN (09:08)
[2019-02-25] MEDS: CILOSTAZOL 100 MG TAB PO SCH ×2 (09:56→21:40)
[2019-02-25] MEDS: METOPROLOL TARTRATE 50 MG TAB PO SCH ×2 (09:56→21:39)
[2019-02-25] MEDS: methylPREDNISolone Sod Succinate 40 MG/1 ML INJ IV SCH (09:56)
[2019-02-25] MEDS: allopurinoL 100 MG TAB PO SCH (09:56)
[2019-02-25] MEDS: MAGNESIUM OXIDE 400 MG TAB PO SCH ×2 (09:56→21:39)
[2019-02-25] MEDS: PANTOPRAZOLE 40 MG TAB PO SCH (09:56)
[2019-02-25] MEDS: FERROUS SULFATE 325 MG TAB PO SCH (09:56)
[2019-02-25] MEDS: ASPIRIN EC 325 MG TAB PO SCH (10:00)
--- NOTE | 2019-02-25 10:09 | Gastroenterology Consultation ---
<NEREIDA BARKER - Last Filed: 02/25/19 11:06> History of Present Illness - Reason for Consult Consult date: 02/25/19 anemia Requesting physician: JENIFER REINA - History of Present Illness Patient is a 73 y/o female with PMH of CAD, DM, HTN, Gout, and tobacco dependency (recently quit smoking) who presented to ED with recurrent SOB after recently being discharged for similar symptoms with etiology thought to be due to lung mass vs infection. Upon this admission, she was found to have large left pleural effusion and underwent thoracentesis 02/19/19, along with s/p bronch 02/11/19 with path results c/w malignancy (squamous cell). A CT guided bx is pending for additional tissue analysis, along with further cardiac workup with cardiac cath due CP with abnormal stress test, however cath is currently on hold in setting on anemia to which GI has been consulted. This morning patient was sitting up in bed receiving breathing treatment w/o acute distress but admits to mild continued SOB. Currently w/o GI complaints such as abd pain or N/v. Admits to scant amount of hemoptysis but denies signs of GI bleeding such as hematemesis, melena, or hematochezia. States she believes she has a remote hx of PUD with previous EGD/colonoscopy completed in [place], but details of timing and results unavailable. No Fhx of GI cancers. Past History Past Medical History: CAD, diabetes, GERD, hypertension, other (Gout) Past Surgical History: No surgical history Social history: smoking Family history: cancer (breast), diabetes Medications and Allergies Allergies Allergy/AdvReac Type Severity Reaction Status Date / Time ibuprofen Allergy Unknown Verified 02/18/19 23:29 Penicillins Allergy Unknown Verified 02/18/19 23:29 Home Medications Medication Instructions Recorded Confirmed Last Taken Type Allopurinol 100 mg PO DAILY 12/26/18 02/19/19 Unknown History Aspirin 325 mg PO DAILY 12/26/18 02/19/19 Unknown History Cilostazol 100 mg PO BID 12/26/18 02/19/19 Unknown History Ferrous Sulfate 325 mg PO DAILY 12/26/18 02/19/19 Unknown History Metoprolol Tartrate 50 mg PO BID #60 12/29/18 02/19/19 Unknown Rx Ipratropium (Nf) [Atrovent HFA 2 puff IH Q6HR PRN #1 inha 01/11/19 02/19/19 Unknown Rx 17MCG/PUFF] Acetaminophen/Codeine [Tylenol 1 tab PO Q6H PRN #12 tab 01/21/19 02/19/19 Unknown Rx /Codeine # 3 tab] AtorvaSTATin [Lipitor] 40 mg PO QHS 02/09/19 02/19/19 Unknown History Pantoprazole [Protonix TAB] 40 mg PO QDAY #30 tablet 02/16/19 02/19/19 Unknown Rx cefUROXime [Ceftin] 500 mg PO Q12H 21 Days tablet 02/16/19 02/19/19 Unknown Rx glipiZIDE [Glucotrol] 5 mg PO BID #60 tablet 02/16/19 02/19/19 Unknown Rx hydrALAZINE [Apresoline TAB] 25 mg PO Q8HR #90 tablet 02/16/19 02/19/19 Unknown Rx metroNIDAZOLE [Flagyl] 500 mg PO Q8HR 21 Days 02/16/19 02/19/19 Unknown Rx Active Meds: Active Medications Acetaminophen (Tylenol) 650 mg PO Q6H PRN PRN Reason: Pain, Mild (1-3) Last Admin: 02/24/19 05:27 Dose: 650 mg Documented by: Albuterol (Proventil) 2.5 mg IH Q3HRT PRN PRN Reason: Shortness Of Breath Last Admin: 02/25/19 09:08 Dose: 2.5 mg Documented by: Allopurinol (Zyloprim) 100 mg PO QDAY [facility] Last Admin: 02/25/19 09:56 Dose: 100 mg Documented by: Aspirin (Ecotrin) 325 mg PO QDAY [facility] Last Admin: 02/24/19 10:11 Dose: 325 mg Documented by: Atorvastatin Calcium (Lipitor) 40 mg PO QHS [facility] Last Admin: 02/24/19 21:56 Dose: 40 mg Documented by: Cilostazol (Pletal) 100 mg PO BID [facility] Last Admin: 02/25/19 09:56 Dose: 100 mg Documented by: Dextrose (D50w (25gm) Syringe) 0 ml IV Q30MIN PRN; Protocol PRN Reason: Hypoglycemia Ferrous Sulfate (Feosol) 325 mg PO QDAY [facility] Last Admin: 02/25/19 09:56 Dose: 325 mg Documented by: Furosemide (Lasix) 40 mg PO DAILY@0600 [facility] Last Admin: 02/25/19 05:19 Dose: 40 mg Documented by: Hydralazine HCl (Apresoline) 25 mg PO Q8HR [facility] Last Admin: 02/25/19 05:19 Dose: 25 mg Documented by: Cefepime HCl (Cefepime/Ns 2 Gm/100 Ml) 2 gm in 100 mls @ 200 mls/hr IV Q12H [facility]; Protocol Stop: 02/25/19 23:59 Last Admin: 02/25/19 05:20 Dose: 200 mls/hr Documented by: Insulin Human Isoph/Insulin Regular (Humulin 70/30) 10 unit SUB-Q BIDDIAB [facility] Last Admin: 02/25/19 09:00 Dose: 10 unit Documented by: Insulin Human Regular (Humulin R) 0 units SUB-Q ACHS [facility]; Protocol Last Admin: 02/25/19 08:54 Dose: Not Given Documented by: Isosorbide Mononitrate (Imdur) 30 mg PO QDAY [facility] Last Admin: 02/25/19 09:56 Dose: 30 mg Documented by: Magnesium Hydroxide (Milk Of Magnesia) 30 ml PO Q4H PRN PRN Reason: Constipation Magnesium Oxide (Mag-Ox) 400 mg PO BID [facility] Last Admin: 02/25/19 09:56 Dose: 400 mg Documented by: Methylprednisolone Sodium Succinate (Solu-Medrol) 40 mg IV Q24HR [facility] Last Admin: 02/25/19 09:56 Dose: 40 mg Documented by: Metoprolol Tartrate (Metoprolol) 50 mg PO BID [facility] Last Admin: 02/25/19 09:56 Dose: 50 mg Documented by: Morphine Sulfate (Morphine) 2 mg IV Q4H PRN PRN Reason: Pain, Moderate (4-6) Last Admin: 02/21/19 03:33 Dose: 2 mg Documented by: Pantoprazole Sodium (Protonix) 40 mg PO QDAY [facility] Last Admin: 02/25/19 09:56 Dose: 40 mg Documented by: Sodium Chloride (Sodium Chloride Flush Syringe 10 Ml) 10 ml IV BID [facility] Last Admin: 02/24/19 21:56 Dose: 10 ml Documented by: Sodium Chloride (Sodium Chloride Flush Syringe 10 Ml) 10 ml IV PRN PRN PRN Reason: LINE FLUSH medications reviewed/updated as required Review of Systems - Review of Systems All systems: negative Cardiovascular: chest pain Respiratory: cough, shortness of breath, other (hemoptysis) Gastrointestinal: no abdominal pain, no nausea, no vomiting, no hematemesis, no melena, no hematochezia Exam - Constitutional Vital Signs: Temp Pulse Resp BP Pulse Ox 98.0 F 75 16 134/60 96 02/25/19 03:48 02/25/19 05:19 02/25/19 03:48 02/25/19 05:19 02/25/19 09:05 General appearance: mild distress - EENT Eyes: PERRL, EOM intact ENT: hearing intact - Respiratory Respiratory effort: labored (slightly ) Respiratory: bilateral: diminished - Cardiovascular Rhythm: regular - Gastrointestinal General gastrointestinal: Present: soft, non-tender, non-distended, normal bowel sounds - Integumentary Integumentary: Present: warm, dry - Neurologic Neurological: alert and oriented x3 - Labs CBC & Chem 7: 02/25/19 04:27 02/25/19 04:27 Lab Results: Laboratory Results - last 24 hr 02/19/19 02/24/19 02/24/19 14:40 11:39 15:48 WBC RBC Hgb Hct MCV MCH MCHC RDW Plt Count Sodium Potassium Chloride Carbon Dioxide Anion Gap BUN Creatinine Estimated GFR BUN/Creatinine Ratio Glucose POC Glucose 227 H 234 H Calcium Magnesium Fluid Glucose 247 H Fluid Total Protein 3.3 L Fluid LDH 131 02/24/19 02/25/19 02/25/19 20:56 04:27 04:27 WBC 20.0 H RBC 2.96 L Hgb 7.4 L Hct 23.5 L MCV 79 MCH 25 L MCHC 32 RDW 19.4 H Plt Count 575 H Sodium 135 L Potassium 4.0 Chloride 102.6 Carbon Dioxide 19 L Anion Gap 17 BUN 32 H Creatinine 1.2 Estimated GFR 53 BUN/Creatinine Ratio 27 Glucose 61 L POC Glucose 310 H Calcium 8.3 L Magnesium 1.70 Fluid Glucose Fluid Total Protein Fluid LDH 02/25/19 07:49 WBC RBC Hgb Hct MCV MCH MCHC RDW Plt Count Sodium Potassium Chloride Carbon Dioxide Anion Gap BUN Creatinine Estimated GFR BUN/Creatinine Ratio Glucose POC Glucose 112 H Calcium Magnesium Fluid Glucose Fluid Total Protein Fluid LDH Assessment and Plan 1.anemia-chronic -H/H 7.4/23.5- stable compared to previous labs -continue to monitor H/H and transfuse as needed -no active signs of GI bleeding such as hematemesis, melena, or hematocheiza. + scant hemoptysis -etiology-likely 2/2 recently dx lung cancer -will order iron studies and stool occult -EGD/colonoscopy to r/o GI pathology prior to discharge once respiratory status improved and cleared by cardiology (okay to transfuse and proceed with cardiac cath given no overt bleeding) -continue PPI and supportive care -will follow 2.acute hypoxic respiratory failure 3.left pleural effusion 4.pneumonia -s/p thoracentesis on 02/19 drained 700cc fluid -s/p bronch 02/11/19 -path consistent with malignancy (squamous cell) -CT guided bx pending -pulmonary following 5.CAD/CP/abnormal stress test -cardiology following <ALISSA GLOVER - Last Filed: 02/25/19 17:36> Medications and Allergies Active Meds: Active Medications Acetaminophen (Tylenol) 650 mg PO Q6H PRN PRN Reason: Pain, Mild (1-3) Last Admin: 02/24/19 05:27 Dose: 650 mg Documented by: Albuterol (Proventil) 2.5 mg IH Q3HRT PRN PRN Reason: Shortness Of Breath Last Admin: 02/25/19 09:08 Dose: 2.5 mg Documented by: Allopurinol (Zyloprim) 100 mg PO QDAY [facility] Last Admin: 02/25/19 09:56 Dose: 100 mg Documented by: Aspirin (Ecotrin) 325 mg PO QDAY [facility] Last Admin: 02/24/19 10:11 Dose: 325 mg Documented by: Atorvastatin Calcium (Lipitor) 40 mg PO QHS [facility] Last Admin: 02/24/19 21:56 Dose: 40 mg Documented by: Cilostazol (Pletal) 100 mg PO BID [facility] Last Admin: 02/25/19 09:56 Dose: 100 mg Documented by: Dextrose (D50w (25gm) Syringe) 0 ml IV Q30MIN PRN; Protocol PRN Reason: Hypoglycemia Ferrous Sulfate (Feosol) 325 mg PO QDAY [facility] Last Admin: 02/25/19 09:56 Dose: 325 mg Documented by: Furosemide (Lasix) 40 mg IV 0600,1800 [facility] Hydralazine HCl (Apresoline) 25 mg PO Q8HR [facility] Last Admin: 02/25/19 05:19 Dose: 25 mg Documented by: Cefepime HCl (Cefepime/Ns 2 Gm/100 Ml) 2 gm in 100 mls @ 200 mls/hr IV Q12H [facility]; Protocol Stop: 02/25/19 23:59 Last Admin: 02/25/19 05:20 Dose: 200 mls/hr Documented by: Insulin Human Isoph/Insulin Regular (Humulin 70/30) 10 unit SUB-Q BIDDIAB [facility] Last Admin: 02/25/19 09:00 Dose: 10 unit Documented by: Insulin Human Regular (Humulin R) 0 units SUB-Q ACHS [facility]; Protocol Last Admin: 02/25/19 08:54 Dose: Not Given Documented by: Isosorbide Mononitrate (Imdur) 30 mg PO QDAY [facility] Last Admin: 02/25/19 09:56 Dose: 30 mg Documented by: Magnesium Hydroxide (Milk Of Magnesia) 30 ml PO Q4H PRN PRN Reason: Constipation Magnesium Oxide (Mag-Ox) 400 mg PO BID [facility] Last Admin: 02/25/19 09:56 Dose: 400 mg Documented by: Methylprednisolone Sodium Succinate (Solu-Medrol) 40 mg IV Q24HR [facility] Last Admin: 02/25/19 09:56 Dose: 40 mg Documented by: Metoprolol Tartrate (Metoprolol) 50 mg PO BID [facility] Last Admin: 02/25/19 09:56 Dose: 50 mg Documented by: Morphine Sulfate (Morphine) 2 mg IV Q4H PRN PRN Reason: Pain, Moderate (4-6) Last Admin: 02/21/19 03:33 Dose: 2 mg Documented by: Pantoprazole Sodium (Protonix) 40 mg PO QDAY [facility] Last Admin: 02/25/19 09:56 Dose: 40 mg Documented by: Sodium Chloride (Sodium Chloride Flush Syringe 10 Ml) 10 ml IV BID [facility] Last Admin: 02/24/19 21:56 Dose: 10 ml Documented by: Sodium Chloride (Sodium Chloride Flush Syringe 10 Ml) 10 ml IV PRN PRN PRN Reason: LINE FLUSH Exam - Constitutional Vital Signs: Temp Pulse Resp BP Pulse Ox 98.0 F 87 16 134/60 96 02/25/19 03:48 02/25/19 10:00 02/25/19 03:48 02/25/19 05:19 02/25/19 10:00 - Labs CBC & Chem 7: 02/25/19 04:27 02/25/19 04:27 Lab Results: Laboratory Results - last 24 hr 02/19/19 02/24/19 02/25/19 14:40 20:56 04:27 WBC RBC Hgb Hct MCV MCH MCHC RDW Plt Count Sodium 135 L Potassium 4.0 Chloride 102.6 Carbon Dioxide 19 L Anion Gap 17 BUN 32 H Creatinine 1.2 Estimated GFR 53 BUN/Creatinine Ratio 27 Glucose 61 L POC Glucose 310 H Calcium 8.3 L Magnesium 1.70 Iron TIBC Ferritin Fluid Glucose 247 H Fluid Total Protein 3.3 L Fluid LDH 131 02/25/19 02/25/19 02/25/19 04:27 07:49 11:47 WBC 20.0 H RBC 2.96 L Hgb 7.4 L Hct 23.5 L MCV 79 MCH 25 L MCHC 32 RDW 19.4 H Plt Count 575 H Sodium Potassium Chloride Carbon Dioxide Anion Gap BUN Creatinine Estimated GFR BUN/Creatinine Ratio Glucose POC Glucose 112 H Calcium Magnesium Iron 37 TIBC 120 L Ferritin Fluid Glucose Fluid Total Protein Fluid LDH 02/25/19 02/25/19 02/25/19 11:47 11:49 17:26 WBC RBC Hgb Hct MCV MCH MCHC RDW Plt Count Sodium Potassium Chloride Carbon Dioxide Anion Gap BUN Creatinine Estimated GFR BUN/Creatinine Ratio Glucose POC Glucose 174 H 334 H Calcium Magnesium Iron TIBC Ferritin 893.3 H Fluid Glucose Fluid Total Protein Fluid LDH Assessment and Plan Pt seen and examined; Agree with note above. chronic anemia without overt gi bleeding. given recent lung cancer diagnosis and respiratory status at time exam, will reserve egd/colonoscopy unless dual anti-platelet therapy is planned per cardiology. will follow
--- NOTE | 2019-02-25 10:46 | Progress Note ---
Assessment and Plan Pathology from thoracentesis is c/w malignancy (squamous cell) and pt is pending CT guided biopsy. Per pulmonary, cardiac evaluation will need to be completed to provide accurate cardiac risk stratification for further treatment/options in regards to malignancy in the future. LHC has been held in setting of anemia. GI consultation for w/u of anemia is in progress - per GI team, pt appears to be high risk for endoscopy given her current respiratory status. Will plan to transfuse PRBC and f/u CBC. If H/H stable following PRBC tx and FOBT negative, we will consider LHC at that time. Pt with persistent mild BLE edema and intermittent SOB. Will initiate IV lasix BID and monitor renal indices. The patient has been seen in conjunction with Dr. Pierce who agrees with the assessment and plan of care. - Patient Problems (1) Acute respiratory distress Current Visit: Yes Status: Acute (2) Pneumonia Current Visit: Yes Status: Suspected Qualifiers: Pneumonia type: due to unspecified organism Laterality: left Lung location: lower lobe of lung Qualified Code(s): J18.9 - Pneumonia, unspecified organism (3) Pleural effusion Current Visit: Yes Status: Acute (4) Chest pain Current Visit: Yes Status: Acute (5) Acute HFrEF (heart failure with reduced ejection fraction) Current Visit: Yes Status: Acute (6) Cardiomyopathy Current Visit: Yes Status: Chronic (7) CAD (coronary artery disease) Current Visit: Yes Status: Chronic (8) Stented coronary artery Current Visit: Yes Status: Chronic (9) HTN (hypertension) Current Visit: Yes Status: Chronic (10) Diabetes Current Visit: Yes Status: Chronic (11) Renal insufficiency Current Visit: Yes Status: Acute (12) Anemia Current Visit: Yes Status: Acute (13) Polycythemia Current Visit: Yes Status: Acute (14) Former tobacco use Current Visit: Yes Status: Chronic (15) NSTEMI (non-ST elevated myocardial infarction) Current Visit: Yes Status: Acute (16) Abnormal stress test Current Visit: Yes Status: Acute Subjective Date of service: 02/25/19 Principal diagnosis: Pleural effusion Interval history: resting in bed, no current complaints. she experienced some SOB this AM which improved with breathing treatment. in SR with some bouts of sinus tachycardia overnight. Objective Last Vital Signs Temp 98.0 F 02/25/19 03:48 Pulse 75 02/25/19 05:19 Resp 16 02/25/19 03:48 BP 134/60 02/25/19 05:19 Pulse Ox 96 02/25/19 09:05 - Physical Examination General: No Apparent Distress HEENT: Positive: PERRL, Normocephaly, Mucus Membranes Moist Neck: Positive: neck supple, trachea midline Cardiac: Positive: Reg Rate and Rhythm, S1/S2 Lungs: Positive: Decreased Breath Sounds, Oxygen Neuro: Positive: Grossly Intact Abdomen: Negative: Tender Skin: Negative: Rash Musculoskeletal: No Pain Extremities: Present: edema (trace BLE) - Labs and Meds CBC 02/25/19 Range/Units 04:27 WBC 20.0 H (4.5-11.0) K/mm3 RBC 2.96 L (3.65-5.03) M/mm3 Hgb 7.4 L (10.1-14.3) gm/dl Hct 23.5 L (30.3-42.9) % Plt Count 575 H (140-440) K/mm3 Comprehensive Metabolic Panel 02/25/19 Range/Units 04:27 Sodium 135 L (137-145) mmol/L Potassium 4.0 (3.6-5.0) mmol/L Chloride 102.6 (98-107) mmol/L Carbon Dioxide 19 L (22-30) mmol/L BUN 32 H (7-17) mg/dL Creatinine 1.2 (0.7-1.2) mg/dL Glucose 61 L (65-100) mg/dL Calcium 8.3 L (8.4-10.2) mg/dL - Imaging and Cardiology EKG: report reviewed, image reviewed Echo: report reviewed (02/19/2019 showed EF 30-35%, impaired relaxation, mild MR and TR, RVSP 46mmHg, basal anterior, mid anterior and apical anterior wall segments hypokinetic, mid inferoseptal and apical septal wall segments akinetic. ) - Telemetry EKG Rhythm: Sinus Rhythm - EKG Sinus rhythms and dysrhythmias: sinus rhythm Myocardial infarction: anterior ND (old age or i
--- NOTE | 2019-02-25 12:00 | Progress Note ---
Assessment and Plan 73 y/o female, former smoker admitted with worsening dyspnea, found to have moderate left sided pleural effusion. 02/25/19 At this point, pulm status is as stable as can be expected. Sats good on 2 liters. I have not repeated imaging but no indication that effusion has returned clinically. Will continue supplemental O2. Await biopsy so that more tissue can be obtained. Once done can consult onc. Agree with GI and Cards notes. Will continue to follow. HOpeful that biopsy can be done today. 1. 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 Suggest more tissue and feel that CT guided biopsy is best as the path department had a difficult time with specimen from bronch. Spoke with IMS about CT guided biopsy. Once done patient will need Onc follow up and likely and outpatient pet scan. Cardiology has suspended further work up because of anemia. Will need to be complete to assess risk for further treatment/options in regards to malignancy down the line. Subjective Date of service: 02/25/19 Principal diagnosis: Pleural effusion Interval history: No acute events. Spoke with daughter last night about current plan from lung standpoint. Spoke with cards as well. IMS has consulted GI secondary to anemia. Reviewed their note this am. Objective Vital Signs - 12hr 02/25/19 02/25/19 02/25/19 00:01 03:48 05:19 Temperature 98.1 F 98.0 F Pulse Rate 75 75 75 Respiratory 18 16 Rate Blood Pressure 145/67 134/60 134/60 O2 Sat by Pulse 98 96 Oximetry 02/25/19 09:05 Temperature Pulse Rate Respiratory Rate Blood Pressure O2 Sat by Pulse 96 Oximetry Constitutional: no acute distress, alert Eyes: non-icteric ENT: oropharynx moist Neck: supple Effort: normal Ascultation: Right: clear, Left: rales, egophony, Bilateral: diminished breath sounds (bases), wheezes Cardiovascular: regular rate and rhythm (no mrg) Gastrointestinal: normoactive bowel sounds, soft, non-tender, non-distended Integumentary: normal Extremities: no cyanosis, no edema, pink and warm Neurologic: normal mental status, non-focal exam, pupils equal and round Psychiatric: mood appropriate, affect normal CBC and BMP: 02/25/19 04:27 02/25/19 04:27 ABG, PT/INR, D-dimer: ABG POC ABG pH 7.377 (7.35-7.45) 02/18/19 23:44 POC ABG pCO2 35.6 (35-45) 02/18/19 23:44 POC ABG pO2 253 (80-105) H 02/18/19 23:44 POC ABG HCO3 20.9 (22-26 mml/L) 02/18/19 23:44 POC ABG Total CO2 22 (23-27mmol/L) 02/18/19 23:44 POC ABG O2 Sat 100 02/18/19 23:44 PT/INR, D-dimer PT 15.1 Sec. (12.2-14.9) H 02/24/19 05:14 INR 1.20 (0.87-1.13) H 02/24/19 05:14 Abnormal lab findings: Abnormal Labs 02/18/19 02/18/19 02/18/19 23:11 23:11 23:11 WBC 14.5 H RBC 3.33 L Hgb 8.3 L Hct 26.2 L MCV MCH 25 L RDW 19.4 H Plt Count 582 H Lymph % (Auto) [place] % (Auto) 10.5 H [place] # 1.5 H Baso # 0.2 H Seg Neutrophils % 73.2 H Seg Neuts % (Manual) Lymphocytes % (Manual) Monocytes % (Manual) Seg Neutrophils # 10.6 H Seg Neutrophils # Man Monocytes # (Manual) PT INR POC ABG pO2 Sodium 136 L Potassium Carbon Dioxide 18 L BUN 26 H Creatinine 1.3 H Glucose 118 H POC Glucose Calcium Magnesium Troponin T NT-Pro-B Natriuret Pep 4784 H Albumin 2.4 L HDL Cholesterol Fluid Glucose Fluid Total Protein 02/18/19 02/19/19 02/19/19 23:44 08:09 12:03 WBC RBC Hgb Hct MCV MCH RDW Plt Count Lymph % (Auto) [place] % (Auto) [place] # Baso # Seg Neutrophils % Seg Neuts % (Manual) Lymphocytes % (Manual) Monocytes % (Manual) Seg Neutrophils # Seg Neutrophils # Man Monocytes # (Manual) PT INR POC ABG pO2 253 H Sodium Potassium Carbon Dioxide BUN Creatinine Glucose POC Glucose 224 H 187 H Calcium Magnesium Troponin T NT-Pro-B Natriuret Pep Albumin HDL Cholesterol Fluid Glucose Fluid Total Protein 02/19/19 02/19/19 02/19/19 14:40 17:49 18:22 WBC RBC Hgb Hct MCV MCH RDW Plt Count Lymph % (Auto) [place] % (Auto) [place] # Baso # Seg Neutrophils % Seg Neuts % (Manual) Lymphocytes % (Manual) Monocytes % (Manual) Seg Neutrophils # Seg Neutrophils # Man Monocytes # (Manual) PT 15.7 H INR 1.27 H POC ABG pO2 Sodium Potassium Carbon Dioxide BUN Creatinine Glucose POC Glucose 239 H Calcium Magnesium Troponin T NT-Pro-B Natriuret Pep Albumin HDL Cholesterol Fluid Glucose 247 H Fluid Total Protein 3.3 L 02/19/19 02/20/19 02/20/19 22:24 04:45 04:45 WBC 18.6 H RBC 3.07 L Hgb 7.4 L Hct 23.8 L MCV 78 L MCH 24 L RDW 19.4 H Plt Count 596 H Lymph % (Auto) 8.8 L [place] % (Auto) [place] # 1.0 H Baso # Seg Neutrophils % 85.6 H Seg Neuts % (Manual) Lymphocytes % (Manual) Monocytes % (Manual) Seg Neutrophils # 15.9 H Seg Neutrophils # Man Monocytes # (Manual) PT INR POC ABG pO2 Sodium Potassium 5.2 H D Carbon Dioxide 19 L BUN 36 H Creatinine 1.6 H Glucose POC Glucose 170 H Calcium Magnesium Troponin T NT-Pro-B Natriuret Pep Albumin HDL Cholesterol Fluid Glucose Fluid Total Protein 02/20/19 02/20/19 02/20/19 11:17 15:39 20:37 WBC RBC Hgb Hct MCV MCH RDW Plt Count Lymph % (Auto) [place] % (Auto) [place] # Baso # Seg Neutrophils % Seg Neuts % (Manual) Lymphocytes % (Manual) Monocytes % (Manual) Seg Neutrophils # Seg Neutrophils # Man Monocytes # (Manual) PT INR POC ABG pO2 Sodium Potassium Carbon Dioxide BUN Creatinine Glucose POC Glucose 160 H 147 H 146 H Calcium Magnesium Troponin T NT-Pro-B Natriuret Pep Albumin HDL Cholesterol Fluid Glucose Fluid Total Protein 02/21/19 02/21/19 02/21/19 06:34 07:39 11:45 WBC RBC Hgb Hct MCV MCH RDW Plt Count Lymph % (Auto) [place] % (Auto) [place] # Baso # Seg Neutrophils % Seg Neuts % (Manual) Lymphocytes % (Manual) Monocytes % (Manual) Seg Neutrophils # Seg Neutrophils # Man Monocytes # (Manual) PT INR POC ABG pO2 Sodium 135 L Potassium 5.3 H Carbon Dioxide 17 L BUN 36 H Creatinine 1.5 H Glucose 179 H POC Glucose 184 H 268 H Calcium Magnesium Troponin T NT-Pro-B Natriuret Pep Albumin HDL Cholesterol Fluid Glucose Fluid Total Protein 02/21/19 02/21/19 02/21/19 11:59 15:41 20:43 WBC 13.6 H RBC 3.19 L Hgb 8.0 L Hct 24.7 L MCV 78 L MCH 25 L RDW 19.4 H Plt Count 614 H Lymph % (Auto) [place] % (Auto) [place] # Baso # Seg Neutrophils % Seg Neuts % (Manual) Lymphocytes % (Manual) Monocytes % (Manual) Seg Neutrophils # Seg Neutrophils # Man Monocytes # (Manual) PT INR POC ABG pO2 Sodium Potassium Carbon Dioxide BUN Creatinine Glucose POC Glucose 278 H 251 H Calcium Magnesium Troponin T NT-Pro-B Natriuret Pep Albumin HDL Cholesterol Fluid Glucose Fluid Total Protein 02/22/19 02/22/19 02/22/19 00:44 08:04 12:24 WBC RBC Hgb Hct MCV MCH RDW Plt Count Lymph % (Auto) [place] % (Auto) [place] # Baso # Seg Neutrophils % Seg Neuts % (Manual) Lymphocytes % (Manual) Monocytes % (Manual) Seg Neutrophils # Seg Neutrophils # Man Monocytes # (Manual) PT INR POC ABG pO2 Sodium 133 L Potassium Carbon Dioxide 19 L BUN 37 H Creatinine 1.5 H Glucose 139 H POC Glucose 124 H 174 H Calcium 8.1 L Magnesium Troponin T NT-Pro-B Natriuret Pep Albumin HDL Cholesterol Fluid Glucose Fluid Total Protein 02/22/19 02/22/19 02/22/19 13:15 15:56 21:30 WBC RBC Hgb Hct MCV MCH RDW Plt Count Lymph % (Auto) [place] % (Auto) [place] # Baso # Seg Neutrophils % Seg Neuts % (Manual) Lymphocytes % (Manual) Monocytes % (Manual) Seg Neutrophils # Seg Neutrophils # Man Monocytes # (Manual) PT INR POC ABG pO2 Sodium Potassium Carbon Dioxide BUN Creatinine Glucose POC Glucose 359 H 398 H Calcium Magnesium Troponin T 0.208 H* D NT-Pro-B Natriuret Pep Albumin HDL Cholesterol 72 H Fluid Glucose Fluid Total Protein 02/23/19 02/23/19 02/23/19 06:26 06:49 07:43 WBC RBC Hgb Hct MCV MCH RDW Plt Count Lymph % (Auto) [place] % (Auto) [place] # Baso # Seg Neutrophils % Seg Neuts % (Manual) Lymphocytes % (Manual) Monocytes % (Manual) Seg Neutrophils # Seg Neutrophils # Man Monocytes # (Manual) PT INR POC ABG pO2 Sodium 132 L Potassium Carbon Dioxide 20 L BUN 43 H Creatinine 1.3 H Glucose 163 H POC Glucose 183 H Calcium 8.1 L Magnesium 1.60 L Troponin T 0.173 H* NT-Pro-B Natriuret Pep Albumin HDL Cholesterol Fluid Glucose Fluid Total Protein 02/23/19 02/23/19 02/23/19 12:24 17:09 21:47 WBC RBC Hgb Hct MCV MCH RDW Plt Count Lymph % (Auto) [place] % (Auto) [place] # Baso # Seg Neutrophils % Seg Neuts % (Manual) Lymphocytes % (Manual) Monocytes % (Manual) Seg Neutrophils # Seg Neutrophils # Man Monocytes # (Manual) PT INR POC ABG pO2 Sodium Potassium Carbon Dioxide BUN Creatinine Glucose POC Glucose 186 H 245 H 203 H Calcium Magnesium Troponin T NT-Pro-B Natriuret Pep Albumin HDL Cholesterol Fluid Glucose Fluid Total Protein 02/24/19 02/24/19 02/24/19 05:14 05:14 05:14 WBC 20.8 H RBC 2.99 L Hgb 7.4 L Hct 23.8 L MCV MCH 25 L RDW 19.4 H Plt Count 608 H Lymph % (Auto) [place] % (Auto) [place] # Baso # Seg Neutrophils % Seg Neuts % (Manual) 85.0 H Lymphocytes % (Manual) 7.0 L Monocytes % (Manual) 8.0 H Seg Neutrophils # Seg Neutrophils # Man 17.7 H Monocytes # (Manual) 1.7 H PT 15.1 H INR 1.20 H POC ABG pO2 Sodium Potassium Carbon Dioxide 19 L BUN 38 H Creatinine Glucose 168 H POC Glucose Calcium 8.0 L Magnesium Troponin T 0.216 H* D NT-Pro-B Natriuret Pep Albumin HDL Cholesterol Fluid Glucose Fluid Total Protein 02/24/19 02/24/19 02/24/19 07:47 11:39 15:48 WBC RBC Hgb Hct MCV MCH RDW Plt Count Lymph % (Auto) [place] % (Auto) [place] # Baso # Seg Neutrophils % Seg Neuts % (Manual) Lymphocytes % (Manual) Monocytes % (Manual) Seg Neutrophils # Seg Neutrophils # Man Monocytes # (Manual) PT INR POC ABG pO2 Sodium Potassium Carbon Dioxide BUN Creatinine Glucose POC Glucose 180 H 227 H 234 H Calcium Magnesium Troponin T NT-Pro-B Natriuret Pep Albumin HDL Cholesterol Fluid Glucose Fluid Total Protein 02/24/19 02/25/19 02/25/19 20:56 04:27 04:27 WBC 20.0 H RBC 2.96 L Hgb 7.4 L Hct 23.5 L MCV MCH 25 L RDW 19.4 H Plt Count 575 H Lymph % (Auto) [place] % (Auto) [place] # Baso # Seg Neutrophils % Seg Neuts % (Manual) Lymphocytes % (Manual) Monocytes % (Manual) Seg Neutrophils # Seg Neutrophils # Man Monocytes # (Manual) PT INR POC ABG pO2 Sodium 135 L Potassium Carbon Dioxide 19 L BUN 32 H Creatinine Glucose 61 L POC Glucose 310 H Calcium 8.3 L Magnesium Troponin T NT-Pro-B Natriuret Pep Albumin HDL Cholesterol Fluid Glucose Fluid Total Protein 02/25/19 02/25/19 07:49 11:49 WBC RBC Hgb Hct MCV MCH RDW Plt Count Lymph % (Auto) [place] % (Auto) [place] # Baso # Seg Neutrophils % Seg Neuts % (Manual) Lymphocytes % (Manual) Monocytes % (Manual) Seg Neutrophils # Seg Neutrophils # Man Monocytes # (Manual) PT INR POC ABG pO2 Sodium Potassium Carbon Dioxide BUN Creatinine Glucose POC Glucose 112 H 174 H Calcium Magnesium Troponin T NT-Pro-B Natriuret Pep Albumin HDL Cholesterol Fluid Glucose Fluid Total Protein
--- NOTE | 2019-02-25 12:19 | Progress Note ---
Assessment and Plan Assessment and plan: 73-year-old female with known history of hypertension coronary artery disease diabetes mellitus who presents to the emergency room today complaining of shortness of breath. She denies any fever no chills no nausea or vomiting. She was just recently discharged from the hospital with similar symptoms. She said to have had some cavitary lesion in the left upper lobe was placed on antibiotics. She was also ruled out for TB. She presents to the emergency room in respiratory distress. She was placed on BiPAP. Acute hypoxic respiratory failure Possibly secondary to underlying pneumonia, left pleural effusion and CHF exacerbation. She has been placed on BiPAP - now weaned off s/p thoracentesis on 02/19 drained 700cc fluid, 2-D echo showed EF of 30-35% Need assessment for home O2 requirement before discharge Pneumonia with sepsis, POA She has been started on empiric IV antibiotics, H CAP. Blood cultures no growth. Lef pleural effusion Thoracentesis done 02/[address] Carey that prelim path suggests squamous cell ca therfore CT biopsy lung FARAZ ordered CT guided lung biopsy to be done tomorrow 02/26 Anemia Obtain stool occult blood consulted GI if stool occult blood positive Acute on chronic systolic CHF We will continue patient on routine home medications. Will monitor daily weight monitor input and output. 2-D echo showed EF of 30-35%, we'll continue Lasix Cardiology following. Stress test done 02/23 abnormal. Was scheduled for cardiac cath but canceled because of anemia NEELIMA, acute on CKD? This appears chronic. Will monitor BUN and creatinine, consulted nephrology, following Physical debility, PT recommended acute rehab DVT prophylaxis SCDs only for now because pending lung biopsy Full code status History Interval history: No chest pain currently No shortness of breath Liver biopsy postponed to tomorrow Hospitalist Physical - Physical exam Narrative exam: Gen: Not in acute distress, lying in bed, HEENT: Normocephalic, atraumatic Neck: supple, no JVD Heart: S1 and S2 reg, no murmurs, rubs or gallop Lungs: Clear to auscultation bilaterally, Abd: soft, non tender, non distended, normal BS, Ext: No edema, no clubbing, no cyanosis Neuro: Awake, alert, oriented X 3, no focal neurological signs - Constitutional Vitals: Temp Pulse Resp BP Pulse Ox 98.0 F 87 16 134/60 96 02/25/19 03:48 02/25/19 10:00 02/25/19 03:48 02/25/19 05:19 02/25/19 10:00 General appearance: Present: no acute distress Results - Labs CBC & Chem 7: 02/25/19 04:27 02/25/19 04:27 Labs: Laboratory Last Values WBC 20.0 K/mm3 (4.5-11.0) H 02/25/19 04:27 RBC 2.96 M/mm3 (3.65-5.03) L 02/25/19 04:27 Hgb 7.4 gm/dl (10.1-14.3) L 02/25/19 04:27 Hct 23.5 % (30.3-42.9) L 02/25/19 04:27 MCV 79 fl (79-97) 02/25/19 04:27 MCH 25 pg (28-32) L 02/25/19 04:27 MCHC 32 % (30-34) 02/25/19 04:27 RDW 19.4 % (13.2-15.2) H 02/25/19 04:27 Plt Count 575 K/mm3 (140-440) H 02/25/19 04:27 Lymph % (Auto) 8.8 % (13.4-35.0) L 02/20/19 04:45 [place] % (Auto) 5.5 % (0.0-7.3) 02/20/19 04:45 Eos % (Auto) 0.0 % (0.0-4.3) 02/20/19 04:45 Baso % (Auto) 0.1 % (0.0-1.8) 02/20/19 04:45 Lymph # 1.6 K/mm3 (1.2-5.4) 02/20/19 04:45 [place] # 1.0 K/mm3 (0.0-0.8) H 02/20/19 04:45 Eos # 0.0 K/mm3 (0.0-0.4) 02/20/19 04:45 Baso # 0.0 K/mm3 (0.0-0.1) 02/20/19 04:45 Add Manual Diff Complete 02/24/19 05:14 Total Counted 100 02/24/19 05:14 Seg Neutrophils % 85.6 % (40.0-70.0) H 02/20/19 04:45 Seg Neuts % (Manual) 85.0 % (40.0-70.0) H 02/24/19 05:14 Band Neutrophils % 0 % 02/24/19 05:14 Lymphocytes % (Manual) 7.0 % (13.4-35.0) L 02/24/19 05:14 Reactive Lymphs % (Man) 0 % 02/24/19 05:14 Monocytes % (Manual) 8.0 % (0.0-7.3) H 02/24/19 05:14 Eosinophils % (Manual) 0 % (0.0-4.3) 02/24/19 05:14 Basophils % (Manual) 0 % (0.0-1.8) 02/24/19 05:14 Metamyelocytes % 0 % 02/24/19 05:14 Myelocytes % 0 % 02/24/19 05:14 Promyelocytes % 0 % 02/24/19 05:14 Blast Cells % 0 % 02/24/19 05:14 Nucleated RBC % Not Reportable 02/24/19 05:14 Seg Neutrophils # 15.9 K/mm3 (1.8-7.7) H 02/20/19 04:45 Seg Neutrophils # Man 17.7 K/mm3 (1.8-7.7) H 02/24/19 05:14 Band Neutrophils # 0.0 K/mm3 02/24/19 05:14 Lymphocytes # (Manual) 1.5 K/mm3 (1.2-5.4) 02/24/19 05:14 Abs React Lymphs (Man) 0.0 K/mm3 02/24/19 05:14 Monocytes # (Manual) 1.7 K/mm3 (0.0-0.8) H 02/24/19 05:14 Eosinophils # (Manual) 0.0 K/mm3 (0.0-0.4) 02/24/19 05:14 Basophils # (Manual) 0.0 K/mm3 (0.0-0.1) 02/24/19 05:14 Metamyelocytes # 0.0 K/mm3 02/24/19 05:14 Myelocytes # 0.0 K/mm3 02/24/19 05:14 Promyelocytes # 0.0 K/mm3 02/24/19 05:14 Blast Cells # 0.0 K/mm3 02/24/19 05:14 WBC Morphology Not Reportable 02/24/19 05:14 Hypersegmented Neuts Not Reportable 02/24/19 05:14 Hyposegmented Neuts Not Reportable 02/24/19 05:14 Hypogranular Neuts Not Reportable 02/24/19 05:14 Smudge Cells Not Reportable 02/24/19 05:14 Toxic Granulation Not Reportable 02/24/19 05:14 Toxic Vacuolation Not Reportable 02/24/19 05:14 Dohle Bodies Not Reportable 02/24/19 05:14 Pelger-Huet Anomaly Not Reportable 02/24/19 05:14 Jessica Rods Not Reportable 02/24/19 05:14 Platelet Estimate Consistent w auto 02/24/19 05:14 Clumped Platelets Not Reportable 02/24/19 05:14 Plt Clumps, EDTA Not Reportable 02/24/19 05:14 Large Platelets Not Reportable 02/24/19 05:14 Giant Platelets Not Reportable 02/24/19 05:14 Platelet Satelliting Not Reportable 02/24/19 05:14 Plt Morphology Comment Not Reportable 02/24/19 05:14 RBC Morphology Not Reportable 02/24/19 05:14 Dimorphic RBCs Not Reportable 02/24/19 05:14 Polychromasia Not Reportable 02/24/19 05:14 Hypochromasia 1+ 02/24/19 05:14 Poikilocytosis Few 02/24/19 05:14 Anisocytosis 1+ 02/24/19 05:14 Microcytosis Not Reportable 02/24/19 05:14 Macrocytosis Not Reportable 02/24/19 05:14 Spherocytes Not Reportable 02/24/19 05:14 Pappenheimer Bodies Not Reportable 02/24/19 05:14 Sickle Cells Not Reportable 02/24/19 05:14 Target Cells 1+ 02/24/19 05:14 Tear Drop Cells Not Reportable 02/24/19 05:14 Ovalocytes Not Reportable 02/24/19 05:14 Helmet Cells Not Reportable 02/24/19 05:14 [place] Bodies Not Reportable 02/24/19 05:14 [place] Rings Not Reportable 02/24/19 05:14 Lora Cells Not Reportable 02/24/19 05:14 Bite Cells Not Reportable 02/24/19 05:14 Crenated Cell Not Reportable 02/24/19 05:14 Elliptocytes Few 02/24/19 05:14 Acanthocytes (Spur) Not Reportable 02/24/19 05:14 Rouleaux Not Reportable 02/24/19 05:14 Hemoglobin C Crystals Not Reportable 02/24/19 05:14 Schistocytes Not Reportable 02/24/19 05:14 Malaria parasites Not Reportable 02/24/19 05:14 Galen Bodies Not Reportable 02/24/19 05:14 Hem Pathologist Commnt No 02/24/19 05:14 PT 15.1 Sec. (12.2-14.9) H 02/24/19 05:14 INR 1.20 (0.87-1.13) H 02/24/19 05:14 POC ABG pH 7.377 (7.35-7.45) 02/18/19 23:44 POC ABG pCO2 35.6 (35-45) 02/18/19 23:44 POC ABG pO2 253 (80-105) H 02/18/19 23:44 POC ABG HCO3 20.9 (22-26 mml/L) 02/18/19 23:44 POC ABG Total CO2 22 (23-27mmol/L) 02/18/19 23:44 POC ABG O2 Sat 100 02/18/19 23:44 POC ABG Base Excess -4 ((-2) - (+3)mmol/L) 02/18/19 23:44 FiO2 100 % 02/18/19 23:44 Sodium 135 mmol/L (137-145) L 02/25/19 04:27 Potassium 4.0 mmol/L (3.6-5.0) 02/25/19 04:27 Chloride 102.6 mmol/L (98-107) 02/25/19 04:27 Carbon Dioxide 19 mmol/L (22-30) L 02/25/19 04:27 Anion Gap 17 mmol/L 02/25/19 04:27 BUN 32 mg/dL (7-17) H 02/25/19 04:27 Creatinine 1.2 mg/dL (0.7-1.2) 02/25/19 04:27 Estimated GFR 53 ml/min 02/25/19 04:27 BUN/Creatinine Ratio 27 % 02/25/19 04:27 Glucose 61 mg/dL (65-100) L 02/25/19 04:27 POC Glucose 174 (70-105) H 02/25/19 11:49 Calcium 8.3 mg/dL (8.4-10.2) L 02/25/19 04:27 Phosphorus 2.70 mg/dL (2.5-4.5) 02/23/19 06:26 Magnesium 1.70 mg/dL (1.7-2.3) 02/25/19 04:27 Total Bilirubin 0.20 mg/dL (0.1-1.2) 02/18/19 23:11 AST 18 units/L (5-40) 02/18/19 23:11 ALT 7 units/L (7-56) 02/18/19 23:11 Alkaline Phosphatase 83 units/L (35-129) 02/18/19 23:11 Troponin T 0.216 ng/mL (0.00-0.029) H* D 02/24/19 05:14 NT-Pro-B Natriuret Pep 4784 pg/mL (0-900) H 02/18/19 23:11 Total Protein 7.6 g/dL (6.3-8.2) 02/18/19 23:11 Albumin 2.4 g/dL (3.9-5) L 02/18/19 23:11 Albumin/Globulin Ratio 0.5 % 02/18/19 23:11 Triglycerides 118 mg/dL (2-149) 02/22/19 13:15 Cholesterol 141 mg/dL (50-199) 02/22/19 13:15 LDL Cholesterol Direct 50 mg/dL (50-130) 02/22/19 13:15 HDL Cholesterol 72 mg/dL (40-59) H 02/22/19 13:15 Cholesterol/HDL Ratio 1.95 % 02/22/19 13:15 Fluid Type Pleural 02/19/19 14:40 Fluid Color Straw 02/19/19 14:40 Fluid Appearance Hazy 02/19/19 14:40 Fluid WBC 804 /mm3 02/19/19 14:40 Fluid RBC 195 /mm3 02/19/19 14:40 Fluid Seg Neutrophils 6.0 % 02/19/19 14:40 Fluid Lymphocytes 39.0 % 02/19/19 14:40 Fluid Reactive Lymphs 0 % 02/19/19 14:40 Fluid Monocytes 19.0 % 02/19/19 14:40 Fluid Eosinophils 36.0 % 02/19/19 14:40 Fluid Basophils 0 % 02/19/19 14:40 Fluid Glucose 247 mg/dL (40-70) H 02/19/19 14:40 Fluid Total Protein 3.3 (15.0-45.0) L 02/19/19 14:40 Fluid LDH 131 02/19/19 14:40 Vancomycin Trough 11.7 ug/mL (5.0-20.0) 02/21/19 06:34 AFB Identification 02/19/19 14:40 Fungal Id Prelim 02/19/19 14:40 Active Medications - Current Medications Current Medications: Generic Name Dose Route Start Last Admin Trade Name Freq PRN Reason Stop Dose Admin Acetaminophen 650 mg 02/20/19 17:19 02/24/19 05:27 Tylenol PO 650 mg Q6H PRN Administration Pain, Mild (1-3) Albuterol 2.5 mg 02/20/19 23:45 02/25/19 09:08 Proventil IH 2.5 mg Q3HRT PRN Administration Shortness Of Breath Allopurinol 100 mg 02/21/19 12:15 02/25/19 09:56 Zyloprim PO 100 mg QDAY MAYLIN Administration Aspirin 325 mg 02/23/19 10:00 02/24/19 10:11 Ecotrin PO 325 mg QDAY MAYLIN Administration Atorvastatin Calcium 40 mg 02/21/19 22:00 02/24/19 21:56 Lipitor PO 40 mg QHS AMYLIN Administration Cilostazol 100 mg 02/21/19 22:00 02/25/19 09:56 Pletal PO 100 mg BID MAYLIN Administration Dextrose 0 ml 02/19/19 03:08 D50w (25gm) Syringe IV Q30MIN PRN Hypoglycemia Protocol Ferrous Sulfate 325 mg 02/22/19 10:00 02/25/19 09:56 Feosol PO 325 mg QDAY MAYLIN Administration Furosemide 40 mg 02/25/19 18:00 Lasix IV 0600,1800 [facility] Hydralazine HCl 25 mg 02/21/19 14:00 02/25/19 05:19 Apresoline PO 25 mg Q8HR MAYLIN Administration Cefepime HCl 2 gm in 100 mls @ 200 mls/hr 02/19/19 06:00 02/25/19 05:20 Cefepime/Ns 2 Gm/100 Ml IV 02/25/19 23:59 200 mls/hr Q12H MAYLIN Administration Protocol Insulin Human Isoph/Insulin Regular 10 unit 02/25/19 08:00 02/25/19 09:00 Humulin 70/30 SUB-Q 10 unit BIDDIAB MAYLIN Administration Insulin Human Regular 0 units 02/19/19 07:30 02/25/19 08:54 Humulin R SUB-Q Not Given ACHS [facility] Protocol Isosorbide Mononitrate 30 mg 02/24/19 12:00 02/25/19 09:56 Imdur PO 30 mg QDAY MAYLIN Administration Magnesium Hydroxide 30 ml 02/19/19 03:08 Milk Of Magnesia PO Q4H PRN Constipation Magnesium Oxide 400 mg 02/23/19 11:00 02/25/19 09:56 Mag-Ox PO 400 mg BID MAYLIN Administration Methylprednisolone Sodium Succinate 40 mg 02/22/19 10:00 02/25/19 09:56 Solu-Medrol IV 40 mg Q24HR MAYLIN Administration Metoprolol Tartrate 50 mg 02/21/19 22:00 02/25/19 09:56 Metoprolol PO 50 mg BID MAYLIN Administration Morphine Sulfate 2 mg 02/19/19 03:08 02/21/19 03:33 Morphine IV 2 mg Q4H PRN Administration Pain, Moderate (4-6) Pantoprazole Sodium 40 mg 02/22/19 10:00 02/25/19 09:56 Protonix PO 40 mg QDAY MAYLIN Administration Sodium Chloride 10 ml 02/19/19 10:00 02/24/19 21:56 Sodium Chloride Flush Syringe 10 Ml IV 10 ml BID MAYLIN Administration Sodium Chloride 10 ml 02/19/19 03:08 Sodium Chloride Flush Syringe 10 Ml IV PRN PRN LINE FLUSH Nutrition/Malnutrition Assess - Dietary Evaluation Nutrition/Malnutrition Findings: Nutrition Notes Start: 02/19/19 14:03 Freq: Status: Active Protocol: Document 02/22/19 13:09 OH (Rec: 11/18/19 13:18 OH [id number]) Nutrition Notes Initial or Follow up Reassessment Current Diagnosis CKD(stage I-IV) Other Pertinent Diagnosis hyperkalemia; FARAZ atelectasis; lung malignancy Current Diet consistent CHO Labs/Tests GLU 174 Ca 8.1 Na 133 Pertinent Medications Lipitor lasix Humulin Solu medrol Height 5 ft 3 in Weight 64.5 kg [place] Body Weight (kg) 52.27 BMI 25.2 Subjective/Other Information f/u: Pt. sitting up in bed. Pt . reports no n/v. Pt. would like extra salad. She does enjoy Glucerna. Percent of energy/protein needs met: <75/75% Burn Absent Trauma Absent GI Symptoms None Current % PO Poor (25-49%) Minimum of two criteria Yes Energy Intake (severe) < or equal to 50% Estimated Energy Requirement > or equal to 5 days Protein-Calorie Malnutrition Severe #1 Nutrition Diagnosis Inadequate oral intake Etiology poor appetite As Evidenced by Signs and Symptoms <75% meal trays consumed Is patient on ventilator? No Is Patient Ambulatory and/or Out of Bed Yes REE-([facility]-ambulatory/OOB) [ 1441.869 NUTR.[id number]] Kcal/Kg value to use for calculation 30 Approximate Energy Requirements Using 1935 kcal/Kg Calculation Used for Recommendations Kcal/kg Additional Notes PRO: .8-1.2 g/kg 52-65 g/day FLUID: 1 mL/kcal Nutrition Intervention Change Diet Order: Cont consistent CHO Add Supplement/Snack (indicate name/kcal ensure enlive bid /protein ) Provides kCal: 700 Provides Protein (gm) 40 Teaching Recipient Patient Learning Readiness Fair Teaching Methods Discussion Response to Teaching Verbalize understanding Education Handouts Provided Enc pt to consume nutrient dense foods to include fruits/ vegetables/proteins at meals/ snacks. Sugg PRO supplementation at home prn. Barriers to Learning Physical,Age related,Financial ,Environmental Goal #1 po intake to exceed 75% meal trays Follow-Up By: 02/25/19 Additional Comments F/U ONS tolerance/po intake
[2019-02-25 13:06] LABS: Iron 37 ug/dL (37-170); Total Iron Binding Capacity 120 mcg/dL (250-450)
--- NOTE | 2019-02-25 14:11 | Progress Note ---
Assessment and Plan 1. Acute kidney injury: Mild NEELIMA superimposed on CKD stage 3, suspect vasomotor insult. Renal function is better and close to her baseline. Monitor renal function. Avoid nephrotoxic agents. Meds dosage based on GFR. 2. FEN: Hyperkalemia, improved. Metabolic acidosis, monitor. Monitor lytes. 3. Acute hypoxic respiratory failure: Possibly secondary to underlying pneumonia, left pleural effusion and CHF exacerbation. 4. Left lung cavitating lung lesion and L pleural effusion: S/p thoracentesis. 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 Followed by Pulmonary. 5. Decompaensated CHF: IV Lasix. 6. H/o CAD. 7. DM-2. 8. Hypertension: Monitor BP. 9. Anemia: POA. Examination: General appearance: well-developed, well-nourished, appears stated age, no distress HEENT: ATNC, SKYE, mucous membranes moist, hearing intact, vision intact Neck: neck supple, trachea midline Respiratory: ctab Heart: regular, S1S2, no murmurs Gastrointestinal: normoactive bowel sounds, not tender Integumentary: no rash, warm and dry Neurologic: no focal deficit, no asterixis Ext: 1+ LE edema noted Subjective Date of service: 02/25/19 Principal diagnosis: Pleural effusion Interval history: Patient was seen and examined at the bedside. Doing ok. Objective - Vital Signs Vital signs: Vital Signs - 12hr 02/25/19 02/25/19 02/25/19 03:48 05:19 09:05 Temperature 98.0 F Pulse Rate 75 75 Respiratory 16 Rate Blood Pressure 134/60 134/60 O2 Sat by Pulse 96 96 Oximetry 02/25/19 10:00 Temperature Pulse Rate 87 Respiratory Rate Blood Pressure O2 Sat by Pulse 96 Oximetry - Lab 02/25/19 04:27 02/25/19 04:27 Most recent lab results Calcium 8.3 mg/dL (8.4-10.2) L 02/25/19 04:27 Phosphorus 2.70 mg/dL (2.5-4.5) 02/23/19 06:26 Magnesium 1.70 mg/dL (1.7-2.3) 02/25/19 04:27 Medications & Allergies - Medications Allergies/Adverse Reactions: Allergies ibuprofen Allergy (Verified 02/18/19 23:29) Unknown Penicillins Allergy (Verified 02/18/19 23:29) Unknown Home Medications: Home Medications Medication Instructions Recorded Confirmed Last Taken Type Allopurinol 100 mg PO DAILY 12/26/18 02/19/19 Unknown History Aspirin 325 mg PO DAILY 12/26/18 02/19/19 Unknown History Cilostazol 100 mg PO BID 12/26/18 02/19/19 Unknown History Ferrous Sulfate 325 mg PO DAILY 12/26/18 02/19/19 Unknown History Metoprolol Tartrate 50 mg PO BID #60 12/29/18 02/19/19 Unknown Rx Ipratropium (Nf) [Atrovent HFA 2 puff IH Q6HR PRN #1 inha 01/11/19 02/19/19 Unknown Rx [id number]/PUFF] Acetaminophen/Codeine [Tylenol 1 tab PO Q6H PRN #12 tab 01/21/19 02/19/19 Unknown Rx /Codeine # 3 tab] AtorvaSTATin [Lipitor] 40 mg PO QHS 02/09/19 02/19/19 Unknown History Pantoprazole [Protonix TAB] 40 mg PO QDAY #30 tablet 02/16/19 02/19/19 Unknown R x cefUROXime [Ceftin] 500 mg PO Q12H 21 Days tablet 02/16/19 02/19/19 Unknown Rx glipiZIDE [Glucotrol] 5 mg PO BID #60 tablet 02/16/19 02/19/19 Unknown Rx hydrALAZINE [Apresoline TAB] 25 mg PO Q8HR #90 tablet 02/16/19 02/19/19 Unknown Rx metroNIDAZOLE [Flagyl] 500 mg PO Q8HR 21 Days 02/16/19 02/19/19 Unknown Rx Active Medications: Generic Name Dose Route Start Last Admin Trade Name Freq PRN Reason Stop Dose Admin Acetaminophen 650 mg 02/20/19 17:19 02/24/19 05:27 Tylenol PO 650 mg Q6H PRN Administration Pain, Mild (1-3) Albuterol 2.5 mg 02/20/19 23:45 02/25/19 09:08 Proventil IH 2.5 mg Q3HRT PRN Administration Shortness Of Breath Allopurinol 100 mg 02/21/19 12:15 02/25/19 09:56 Zyloprim PO 100 mg QDAY MAYLIN Administration Aspirin 325 mg 02/23/19 10:00 02/24/19 10:11 Ecotrin PO 325 mg QDAY MAYLIN Administration Atorvastatin Calcium 40 mg 02/21/19 22:00 02/24/19 21:56 Lipitor PO 40 mg QHS MAYLIN Administration Cilostazol 100 mg 02/21/19 22:00 02/25/19 09:56 Pletal PO 100 mg BID MAYLIN Administration Dextrose 0 ml 02/19/19 03:08 D50w (25gm) Syringe IV Q30MIN PRN Hypoglycemia Protocol Ferrous Sulfate 325 mg 02/22/19 10:00 02/25/19 09:56 Feosol PO 325 mg QDAY MAYLIN Administration Furosemide 40 mg 02/25/19 18:00 Lasix IV 0600,1800 [facility] Hydralazine HCl 25 mg 02/21/19 14:00 02/25/19 05:19 Apresoline PO 25 mg Q8HR MAYLIN Administration Cefepime HCl 2 gm in 100 mls @ 200 mls/hr 02/19/19 06:00 02/25/19 05:20 Cefepime/Ns 2 Gm/100 Ml IV 02/25/19 23:59 200 mls/hr Q12H MAYLIN Administration Protocol Insulin Human Isoph/Insulin Regular 10 unit 02/25/19 08:00 02/25/19 09:00 Humulin 70/30 SUB-Q 10 unit BIDDIAB MAYLIN Administration Insulin Human Regular 0 units 02/19/19 07:30 02/25/19 08:54 Humulin R SUB-Q Not Given ACHS [facility] Protocol Isosorbide Mononitrate 30 mg 02/24/19 12:00 02/25/19 09:56 Imdur PO 30 mg QDAY MAYLIN Administration Magnesium Hydroxide 30 ml 02/19/19 03:08 Milk Of Magnesia PO Q4H PRN Constipation Magnesium Oxide 400 mg 02/23/19 11:00 02/25/19 09:56 Mag-Ox PO 400 mg BID MAYLIN Administration Methylprednisolone Sodium Succinate 40 mg 02/22/19 10:00 02/25/19 09:56 Solu-Medrol IV 40 mg Q24HR MAYLIN Administration Metoprolol Tartrate 50 mg 02/21/19 22:00 02/25/19 09:56 Metoprolol PO 50 mg BID MAYLIN Administration Morphine Sulfate 2 mg 02/19/19 03:08 02/21/19 03:33 Morphine IV 2 mg Q4H PRN Administration Pain, Moderate (4-6) Pantoprazole Sodium 40 mg 02/22/19 10:00 02/25/19 09:56 Protonix PO 40 mg QDAY MAYLIN Administration Sodium Chloride 10 ml 02/19/19 10:00 02/24/19 21:56 Sodium Chloride Flush Syringe 10 Ml IV 10 ml BID MAYLIN Administration Sodium Chloride 10 ml 02/19/19 03:08 Sodium Chloride Flush Syringe 10 Ml IV PRN PRN LINE FLUSH
[2019-02-26] MEDS: hydrALAZINE 25 MG TAB PO SCH ×3 (05:00→22:42)
[2019-02-26] MEDS: FUROSEMIDE 40 MG/4 ML INJ IV SCH ×3 (05:00→19:53)
[2019-02-26 06:25] LABS: Hematocrit 24.2 % (30.3-42.9); Hemoglobin 7.5 gm/dl (10.1-14.3); Mean Corpuscular HGB Conc 31 % (30-34); Mean Corpuscular Volume 79 fl (79-97); Platelet Count 603 K/mm3 (140-440); Red Blood Count 3.07 M/mm3 (3.65-5.03); Red Cell Distribution Width 19.5 % (13.2-15.2)
[2019-02-26 06:50] LABS: Calcium 8.2 mg/dL (8.4-10.2)
[2019-02-26] MEDS: INSULIN NPH/REGULAR 70/30 INJ SUB-Q SCH ×2 (07:30→16:30)
[2019-02-26] MEDS: INSULIN REGULAR, HUMAN 100 UNITS/1 ML SUB-Q SCH ×4 (08:32→22:43)
--- NOTE | 2019-02-26 09:41 | Progress Note ---
Assessment and Plan 1. Acute kidney injury: Mild NEELIMA superimposed on CKD stage 3, suspect vasomotor insult. Renal function is better and close to her baseline. Monitor renal function. Avoid nephrotoxic agents. Meds dosage based on GFR. 2. FEN: Hyperkalemia, improved. Metabolic acidosis, monitor. Monitor lytes. 3. Acute hypoxic respiratory failure: Possibly secondary to underlying pneumonia, left pleural effusion and CHF exacerbation. 4. Left lung cavitating lung lesion and L pleural effusion: S/p thoracentesis. 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 Followed by Pulmonary. 5. Decompaensated CHF: IV Lasix. 6. CAD: Followed by Cards. 7. DM-2. 8. Hypertension: Monitor BP. 9. Anemia: POA. Followed by GI. Examination: General appearance: well-developed, well-nourished, appears stated age, no dist ress HEENT: ATNC, SKYE, mucous membranes moist, hearing intact, vision intact Neck: neck supple, trachea midline Respiratory: ctab Heart: regular, S1S2, no murmurs Gastrointestinal: normoactive bowel sounds, not tender Integumentary: no rash, warm and dry Neurologic: no focal deficit, no asterixis Ext: trace LE edema noted Subjective Date of service: 02/26/19 Principal diagnosis: Pleural effusion Interval history: Patient was seen and examined at the bedside. Doing ok. Objective - Vital Signs Vital signs: Vital Signs - 12hr 02/25/19 02/25/19 02/26/19 22:00 23:38 00:39 Temperature 98.9 F Pulse Rate 67 75 Respiratory 20 Rate Blood Pressure 148/50 O2 Sat by Pulse 96 98 Oximetry 02/26/19 02/26/19 02/26/19 04:28 05:00 07:27 Temperature 98.0 F 97.9 F Pulse Rate 75 79 Respiratory 18 18 Rate Blood Pressure 140/54 148/50 157/62 O2 Sat by Pulse 100 Oximetry - Lab 02/26/19 05:23 02/26/19 05:23 Most recent lab results Calcium 8.2 mg/dL (8.4-10.2) L 02/26/19 05:23 Phosphorus 2.70 mg/dL (2.5-4.5) 02/23/19 06:26 Magnesium 1.70 mg/dL (1.7-2.3) 02/26/19 05:23 Medications & Allergies - Medications Allergies/Adverse Reactions: Allergies ibuprofen Allergy (Verified 02/18/19 23:29) Unknown Penicillins Allergy (Verified 02/18/19 23:29) Unknown Home Medications: Home Medications Medication Instructions Recorded Confirmed Last Taken Type Allopurinol 100 mg PO DAILY 12/26/18 02/19/19 Unknown History Aspirin 325 mg PO DAILY 12/26/18 02/19/19 Unknown History Cilostazol 100 mg PO BID 12/26/18 02/19/19 Unknown History Ferrous Sulfate 325 mg PO DAILY 12/26/18 02/19/19 Unknown History Metoprolol Tartrate 50 mg PO BID #60 12/29/18 02/19/19 Unknown Rx Ipratropium (Nf) [Atrovent HFA 2 puff IH Q6HR PRN #1 inha 01/11/19 02/19/19 Unknown Rx [id number]/PUFF] Acetaminophen/Codeine [Tylenol 1 tab PO Q6H PRN #12 tab 01/21/19 02/19/19 Unknown Rx /Codeine # 3 tab] AtorvaSTATin [Lipitor] 40 mg PO QHS 02/09/19 02/19/19 Unknown History Pantoprazole [Protonix TAB] 40 mg PO QDAY #30 tablet 02/16/19 02/19/19 Unknown Rx cefUROXime [Ceftin] 500 mg PO Q12H 21 Days tablet 02/16/19 02/19/19 Unknown Rx glipiZIDE [Glucotrol] 5 mg PO BID #60 tablet 02/16/19 02/19/19 Unknown Rx hydrALAZINE [Apresoline TAB] 25 mg PO Q8HR #90 tablet 02/16/19 02/19/19 Unknown Rx metroNIDAZOLE [Flagyl] 500 mg PO Q8HR 21 Days 02/16/19 02/19/19 Unknown Rx Active Medications: Generic Name Dose Route Start Last Admin Trade Name Freq PRN Reason Stop Dose Admin Acetaminophen 650 mg 02/20/19 17:19 02/24/19 05:27 Tylenol PO 650 mg Q6H PRN Administration Pain, Mild (1-3) Albuterol 2.5 mg 02/20/19 23:45 02/25/19 09:08 Proventil IH 2.5 mg Q3HRT PRN Administration Shortness Of Breath Allopurinol 100 mg 02/21/19 12:15 02/25/19 09:56 Zyloprim PO 100 mg QDAY MAYLIN Administration Aspirin 325 mg 02/23/19 10:00 02/25/19 10:00 Ecotrin PO Not Given QDAY MAYLIN Atorvastatin Calcium 40 mg 02/21/19 22:00 02/25/19 21:40 Lipitor PO 40 mg QHS MAYLIN Administration Cilostazol 100 mg 02/21/19 22:00 02/25/19 21:40 Pletal PO 100 mg BID MAYLIN Administration Dextrose 0 ml 02/19/19 03:08 D50w (25gm) Syringe IV Q30MIN PRN Hypoglycemia Protocol Ferrous Sulfate 325 mg 02/22/19 10:00 02/25/19 09:56 Feosol PO 325 mg QDAY MAYLIN Administration Furosemide 40 mg 02/25/19 18:00 02/26/19 05:00 Lasix IV 40 mg 0600,1800 MAYLIN Administration Hydralazine HCl 25 mg 02/21/19 14:00 02/26/19 05:00 Apresoline PO 25 mg Q8HR MAYLIN Administration Insulin Human Isoph/Insulin Regular 10 unit 02/25/19 08:00 02/25/19 17:56 Humulin 70/30 SUB-Q 10 unit BIDDIAB MAYLIN Administration Insulin Human Regular 0 units 02/19/19 07:30 02/26/19 08:32 Humulin R SUB-Q Not Given ACHS [facility] Protocol Isosorbide Mononitrate 30 mg 02/24/19 12:00 02/25/19 09:56 Imdur PO 30 mg QDAY MAYLIN Administration Magnesium Hydroxide 30 ml 02/19/19 03:08 Milk Of Magnesia PO Q4H PRN Constipation Magnesium Oxide 400 mg 02/23/19 11:00 02/25/19 21:39 Mag-Ox PO 400 mg BID MAYLIN Administration Methylprednisolone Sodium Succinate 40 mg 02/22/19 10:00 02/25/19 09:56 Solu-Medrol IV 40 mg Q24HR MAYLIN Administration Metoprolol Tartrate 50 mg 02/21/19 22:00 02/25/19 21:39 Metoprolol PO 50 mg BID MAYLIN Administration Morphine Sulfate 2 mg 02/19/19 03:08 02/21/19 03:33 Morphine IV 2 mg Q4H PRN Administration Pain, Moderate (4-6) Pantoprazole Sodium 40 mg 02/22/19 10:00 02/25/19 09:56 Protonix PO 40 mg QDAY MAYLIN Administration Sodium Chloride 10 ml 02/19/19 10:00 02/25/19 21:41 Sodium Chloride Flush Syringe 10 Ml IV 10 ml BID MAYLIN Administration Sodium Chloride 10 ml 02/19/19 03:08 Sodium Chloride Flush Syringe 10 Ml IV PRN PRN LINE FLUSH
--- NOTE | 2019-02-26 10:30 | Progress Note ---
Assessment and Plan 73 y/o female, former smoker admitted with worsening dyspnea, found to have moderate left sided pleural effusion. 02/26/19 Will repeat CXR today and if pleural effusion is present will tap and send for cytology as CT guided biopsy cannot be done until Friday. Family has been waiting for a plan for some time now. If no effusion present will need CT guided biopsy. 02/25/19 At this point, pulm status is as stable as can be expected. Sats good on 2 liters. I have not repeated imaging but no indication that effusion has returned clinically. Will continue supplemental O2. Await biopsy so that more tissue can be obtained. Once done can consult onc. Agree with GI and Cards notes. Will continue to follow. Hopeful that biopsy can be done today. 1. 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 Suggest more t issue and feel that CT guided biopsy is best as the path department had a difficult time with specimen from bronch. Spoke with [facility] about CT guided biopsy. Once done patient will need Onc follow up and likely and outpatient pet scan. Cardiology has suspended further work up because of anemia. Will need to be complete to assess risk for further treatment/options in regards to malignancy down the line. Subjective Date of service: 02/26/19 Principal diagnosis: Pleural effusion Interval history: Spoke to CT and patient not on schedule today as she was on aspirin. Per them she is on for first thing friday morning. Objective Vital Signs - 12hr 02/25/19 02/26/19 02/26/19 23:38 00:39 04:28 Temperature 98.9 F 98.0 F Pulse Rate 75 Respiratory 20 18 Rate Blood Pressure 148/50 140/54 O2 Sat by Pulse 96 98 Oximetry 02/26/19 02/26/19 02/26/19 05:00 07:27 10:01 Temperature 97.9 F Pulse Rate 75 79 Respiratory 18 Rate Blood Pressure 148/50 157/62 O2 Sat by Pulse 100 96 Oximetry Constitutional: no acute distress, alert Eyes: non-icteric ENT: oropharynx moist Neck: supple Effort: normal Ascultation: Right: clear, Left: rales, egophony, Bilateral: diminished breath sounds (bases), wheezes Cardiovascular: regular rate and rhythm (no mrg) Gastrointestinal: normoactive bowel sounds, soft, non-tender, non-distended Integumentary: normal Extremities: no cyanosis, no edema, pink and warm Neurologic: normal mental status, non-focal exam, pupils equal and round Psychiatric: mood appropriate, affect normal CBC and BMP: 02/26/19 05:23 02/26/19 05:23 ABG, PT/INR, D-dimer: ABG POC ABG pH 7.377 (7.35-7.45) 02/18/19 23:44 POC ABG pCO2 35.6 (35-45) 02/18/19 23:44 POC ABG pO2 253 (80-105) H 02/18/19 23:44 POC ABG HCO3 20.9 (22-26 mml/L) 02/18/19 23:44 POC ABG Total CO2 22 (23-27mmol/L) 02/18/19 23:44 POC ABG O2 Sat 100 02/18/19 23:44 PT/INR, D-dimer PT 15.1 Sec. (12.2-14.9) H 02/24/19 05:14 INR 1.20 (0.87-1.13) H 02/24/19 05:14 Abnormal lab findings: Abnormal Labs 02/18/19 02/18/19 02/18/19 23:11 23:11 23:11 WBC 14.5 H RBC 3.33 L Hgb 8.3 L Hct 26.2 L MCV MCH 25 L RDW 19.4 H Plt Count 582 H Lymph % (Auto) [place] % (Auto) 10.5 H [place] # 1.5 H Baso # 0.2 H Seg Neutrophils % 73.2 H Seg Neuts % (Manual) Lymphocytes % (Manual) Monocytes % (Manual) Seg Neutrophils # 10.6 H Seg Neutrophils # Man Monocytes # (Manual) PT INR POC ABG pO2 Sodium 136 L Potassium Carbon Dioxide 18 L BUN 26 H Creatinine 1.3 H Glucose 118 H POC Glucose Calcium Magnesium TIBC Ferritin Troponin T NT-Pro-B Natriuret Pep 4784 H Albumin 2.4 L HDL Cholesterol Fluid Glucose Fluid Total Protein 02/18/19 02/19/19 02/19/19 23:44 08:09 12:03 WBC RBC Hgb Hct MCV MCH RDW Plt Count Lymph % (Auto) [place] % (Auto) [place] # Baso # Seg Neutrophils % Seg Neuts % (Manual) Lymphocytes % (Manual) Monocytes % (Manual) Seg Neutrophils # Seg Neutrophils # Man Monocytes # (Manual) PT INR POC ABG pO2 253 H Sodium Potassium Carbon Dioxide BUN Creatinine Glucose POC Glucose 224 H 187 H Calcium Magnesium TIBC Ferritin Troponin T NT-Pro-B Natriuret Pep Albumin HDL Cholesterol Fluid Glucose Fluid Total Protein 02/19/19 02/19/19 02/19/19 14:40 17:49 18:22 WBC RBC Hgb Hct MCV MCH RDW Plt Count Lymph % (Auto) [place] % (Auto) [place] # Baso # Seg Neutrophils % Seg Neuts % (Manual) Lymphocytes % (Manual) Monocytes % (Manual) Seg Neutrophils # Seg Neutrophils # Man Monocytes # (Manual) PT 15.7 H INR 1.27 H POC ABG pO2 Sodium Potassium Carbon Dioxide BUN Creatinine Glucose POC Glucose 239 H Calcium Magnesium TIBC Ferritin Troponin T NT-Pro-B Natriuret Pep Albumin HDL Cholesterol Fluid Glucose 247 H Fluid Total Protein 3.3 L 02/19/19 02/20/19 02/20/19 22:24 04:45 04:45 WBC 18.6 H RBC 3.07 L Hgb 7.4 L Hct 23.8 L MCV 78 L MCH 24 L RDW 19.4 H Plt Count 596 H Lymph % (Auto) 8.8 L [place] % (Auto) [place] # 1.0 H Baso # Seg Neutrophils % 85.6 H Seg Neuts % (Manual) Lymphocytes % (Manual) Monocytes % (Manual) Seg Neutrophils # 15.9 H Seg Neutrophils # Man Monocytes # (Manual) PT INR POC ABG pO2 Sodium Potassium 5.2 H D Carbon Dioxide 19 L BUN 36 H Creatinine 1.6 H Glucose POC Glucose 170 H Calcium Magnesium TIBC Ferritin Troponin T NT-Pro-B Natriuret Pep Albumin HDL Cholesterol Fluid Glucose Fluid Total Protein 02/20/19 02/20/19 02/20/19 11:17 15:39 20:37 WBC RBC Hgb Hct MCV MCH RDW Plt Count Lymph % (Auto) [place] % (Auto) [place] # Baso # Seg Neutrophils % Seg Neuts % (Manual) Lymphocytes % (Manual) Monocytes % (Manual) Seg Neutrophils # Seg Neutrophils # Man Monocytes # (Manual) PT INR POC ABG pO2 Sodium Potassium Carbon Dioxide BUN Creatinine Glucose POC Glucose 160 H 147 H 146 H Calcium Magnesium TIBC Ferritin Troponin T NT-Pro-B Natriuret Pep Albumin HDL Cholesterol Fluid Glucose Fluid Total Protein 11/17/19 11/17/19 11/17/19 06:34 07:39 11:45 WBC RBC Hgb Hct MCV MCH RDW Plt Count Lymph % (Auto) [place] % (Auto) [place] # Baso # Seg Neutrophils % Seg Neuts % (Manual) Lymphocytes % (Manual) Monocytes % (Manual) Seg Neutrophils # Seg Neutrophils # Man Monocytes # (Manual) PT INR POC ABG pO2 Sodium 135 L Potassium 5.3 H Carbon Dioxide 17 L BUN 36 H Creatinine 1.5 H Glucose 179 H POC Glucose 184 H 268 H Calcium Magnesium TIBC Ferritin Troponin T NT-Pro-B Natriuret Pep Albumin HDL Cholesterol Fluid Glucose Fluid Total Protein 02/21/19 02/21/19 02/21/19 11:59 15:41 20:43 WBC 13.6 H RBC 3.19 L Hgb 8.0 L Hct 24.7 L MCV 78 L MCH 25 L RDW 19.4 H Plt Count 614 H Lymph % (Auto) [place] % (Auto) [place] # Baso # Seg Neutrophils % Seg Neuts % (Manual) Lymphocytes % (Manual) Monocytes % (Manual) Seg Neutrophils # Seg Neutrophils # Man Monocytes # (Manual) PT INR POC ABG pO2 Sodium Potassium Carbon Dioxide BUN Creatinine Glucose POC Glucose 278 H 251 H Calcium Magnesium TIBC Ferritin Troponin T NT-Pro-B Natriuret Pep Albumin HDL Cholesterol Fluid Glucose Fluid Total Protein 02/22/19 02/22/19 02/22/19 00:44 08:04 12:24 WBC RBC Hgb Hct MCV MCH RDW Plt Count Lymph % (Auto) [place] % (Auto) [place] # Baso # Seg Neutrophils % Seg Neuts % (Manual) Lymphocytes % (Manual) Monocytes % (Manual) Seg Neutrophils # Seg Neutrophils # Man Monocytes # (Manual) PT INR POC ABG pO2 Sodium 133 L Potassium Carbon Dioxide 19 L BUN 37 H Creatinine 1.5 H Glucose 139 H POC Glucose 124 H 174 H Calcium 8.1 L Magnesium TIBC Ferritin Troponin T NT-Pro-B Natriuret Pep Albumin HDL Cholesterol Fluid Glucose Fluid Total Protein 02/22/19 02/22/19 02/22/19 13:15 15:56 21:30 WBC RBC Hgb Hct MCV MCH RDW Plt Count Lymph % (Auto) [place] % (Auto) [place] # Baso # Seg Neutrophils % Seg Neuts % (Manual) Lymphocytes % (Manual) Monocytes % (Manual) Seg Neutrophils # Seg Neutrophils # Man Monocytes # (Manual) PT INR POC ABG pO2 Sodium Potassium Carbon Dioxide BUN Creatinine Glucose POC Glucose 359 H 398 H Calcium Magnesium TIBC Ferritin Troponin T 0.208 H* D NT-Pro-B Natriuret Pep Albumin HDL Cholesterol 72 H Fluid Glucose Fluid Total Protein 02/23/19 02/23/19 02/23/19 06:26 06:49 07:43 WBC RBC Hgb Hct MCV MCH RDW Plt Count Lymph % (Auto) [place] % (Auto) [place] # Baso # Seg Neutrophils % Seg Neuts % (Manual) Lymphocytes % (Manual) Monocytes % (Manual) Seg Neutrophils # Seg Neutrophils # Man Monocytes # (Manual) PT INR POC ABG pO2 Sodium 132 L Potassium Carbon Dioxide 20 L BUN 43 H Creatinine 1.3 H Glucose 163 H POC Glucose 183 H Calcium 8.1 L Magnesium 1.60 L TIBC Ferritin Troponin T 0.173 H* NT-Pro-B Natriuret Pep Albumin HDL Cholesterol Fluid Glucose Fluid Total Protein 02/23/19 02/23/19 02/23/19 12:24 17:09 21:47 WBC RBC Hgb Hct MCV MCH RDW Plt Count Lymph % (Auto) [place] % (Auto) [place] # Baso # Seg Neutrophils % Seg Neuts % (Manual) Lymphocytes % (Manual) Monocytes % (Manual) Seg Neutrophils # Seg Neutrophils # Man Monocytes # (Manual) PT INR POC ABG pO2 Sodium Potassium Carbon Dioxide BUN Creatinine Glucose POC Glucose 186 H 245 H 203 H Calcium Magnesium TIBC Ferritin Troponin T NT-Pro-B Natriuret Pep Albumin HDL Cholesterol Fluid Glucose Fluid Total Protein 02/24/19 02/24/19 02/24/19 05:14 05:14 05:14 WBC 20.8 H RBC 2.99 L Hgb 7.4 L Hct 23.8 L MCV MCH 25 L RDW 19.4 H Plt Count 608 H Lymph % (Auto) [place] % (Auto) [place] # Baso # Seg Neutrophils % Seg Neuts % (Manual) 85.0 H Lymphocytes % (Manual) 7.0 L Monocytes % (Manual) 8.0 H Seg Neutrophils # Seg Neutrophils # Man 17.7 H Monocytes # (Manual) 1.7 H PT 15.1 H INR 1.20 H POC ABG pO2 Sodium Potassium Carbon Dioxide 19 L BUN 38 H Creatinine Glucose 168 H POC Glucose Calcium 8.0 L Magnesium TIBC Ferritin Troponin T 0.216 H* D NT-Pro-B Natriuret Pep Albumin HDL Cholesterol Fluid Glucose Fluid Total Protein 02/24/19 02/24/19 02/24/19 07:47 11:39 15:48 WBC RBC Hgb Hct MCV MCH RDW Plt Count Lymph % (Auto) [place] % (Auto) [place] # Baso # Seg Neutrophils % Seg Neuts % (Manual) Lymphocytes % (Manual) Monocytes % (Manual) Seg Neutrophils # Seg Neutrophils # Man Monocytes # (Manual) PT INR POC ABG pO2 Sodium Potassium Carbon Dioxide BUN Creatinine Glucose POC Glucose 180 H 227 H 234 H Calcium Magnesium TIBC Ferritin Troponin T NT-Pro-B Natriuret Pep Albumin HDL Cholesterol Fluid Glucose Fluid Total Protein 02/24/19 02/25/19 02/25/19 20:56 04:27 04:27 WBC 20.0 H RBC 2.96 L Hgb 7.4 L Hct 23.5 L MCV MCH 25 L RDW 19.4 H Plt Count 575 H Lymph % (Auto) [place] % (Auto) [place] # Baso # Seg Neutrophils % Seg Neuts % (Manual) Lymphocytes % (Manual) Monocytes % (Manual) Seg Neutrophils # Seg Neutrophils # Man Monocytes # (Manual) PT INR POC ABG pO2 Sodium 135 L Potassium Carbon Dioxide 19 L BUN 32 H Creatinine Glucose 61 L POC Glucose 310 H Calcium 8.3 L Magnesium TIBC Ferritin Troponin T NT-Pro-B Natriuret Pep Albumin HDL Cholesterol Fluid Glucose Fluid Total Protein 02/25/19 02/25/19 02/25/19 07:49 11:47 11:47 WBC RBC Hgb Hct MCV MCH RDW Plt Count Lymph % (Auto) [place] % (Auto) [place] # Baso # Seg Neutrophils % Seg Neuts % (Manual) Lymphocytes % (Manual) Monocytes % (Manual) Seg Neutrophils # Seg Neutrophils # Man Monocytes # (Manual) PT INR POC ABG pO2 Sodium Potassium Carbon Dioxide BUN Creatinine Glucose POC Glucose 112 H Calcium Magnesium TIBC 120 L Ferritin 893.3 H Troponin T NT-Pro-B Natriuret Pep Albumin HDL Cholesterol Fluid Glucose Fluid Total Protein 02/25/19 02/25/19 02/25/19 11:49 17:26 21:23 WBC RBC Hgb Hct MCV MCH RDW Plt Count Lymph % (Auto) [place] % (Auto) [place] # Baso # Seg Neutrophils % Seg Neuts % (Manual) Lymphocytes % (Manual) Monocytes % (Manual) Seg Neutrophils # Seg Neutrophils # Man Monocytes # (Manual) PT INR POC ABG pO2 Sodium Potassium Carbon Dioxide BUN Creatinine Glucose POC Glucose 174 H 334 H 233 H Calcium Magnesium TIBC Ferritin Troponin T NT-Pro-B Natriuret Pep Albumin HDL Cholesterol Fluid Glucose Fluid Total Protein 02/26/19 02/26/19 02/26/19 05:23 05:23 07:34 WBC 24.3 H RBC 3.07 L Hgb 7.5 L Hct 24.2 L MCV MCH 25 L RDW 19.5 H Plt Count 603 H Lymph % (Auto) [place] % (Auto) [place] # Baso # Seg Neutrophils % Seg Neuts % (Manual) Lymphocytes % (Manual) Monocytes % (Manual) Seg Neutrophils # Seg Neutrophils # Man Monocytes # (Manual) PT INR POC ABG pO2 Sodium 132 L Potassium Carbon Dioxide 20 L BUN 33 H Creatinine 1.3 H Glucose 165 H POC Glucose 177 H Calcium 8.2 L Magnesium TIBC Ferritin Troponin T NT-Pro-B Natriuret Pep Albumin HDL Cholesterol Fluid Glucose Fluid Total Protein
[2019-02-26] MEDS: ASPIRIN EC 325 MG TAB PO SCH (10:47)
[2019-02-26] MEDS: FERROUS SULFATE 325 MG TAB PO SCH (10:47)
[2019-02-26] MEDS: CILOSTAZOL 100 MG TAB PO SCH ×2 (10:47→22:41)
[2019-02-26] MEDS: METOPROLOL TARTRATE 50 MG TAB PO SCH ×2 (10:47→22:42)
[2019-02-26] MEDS: methylPREDNISolone Sod Succinate 40 MG/1 ML INJ IV SCH (10:48)
[2019-02-26] MEDS: MAGNESIUM OXIDE 400 MG TAB PO SCH ×2 (10:48→22:42)
[2019-02-26] MEDS: allopurinoL 100 MG TAB PO SCH (10:48)
[2019-02-26] MEDS: PANTOPRAZOLE 40 MG TAB PO SCH (10:48)
[2019-02-26] MEDS: ACETAMINOPHEN 325 MG TAB PO PRN ×2 (10:51→22:42)
--- NOTE | 2019-02-26 11:18 | Progress Note ---
Assessment and Plan Pathology from thoracentesis is c/w malignancy (squamous cell) and pt is pending CT guided biopsy. Per pulmonary, cardiac evaluation will need to be completed to provide accurate cardiac risk stratification for further treatment/options in regards to malignancy in the future. LHC has been held in setting of anemia. GI consultation for w/u of anemia is in progress - per GI team, anemia appears chronic and pt appears to be high risk for endoscopy given her current respiratory status. Consider PRBC tx per primary. There is no emergent indication for proceeding with LHC. We will consider LHC as OP once H/H is optimized. Cont IV diuretics. The patient has been seen in conjunction with Dr. Pierce who agrees with the assessment and plan of care. - Patient Problems (1) Acute respiratory distress Current Visit: Yes Status: Acute (2) Pneumonia Current Visit: Yes Status: Suspected Qualifiers: Pneumonia type: due to unspecified organism Laterality: left Lung location: lower lobe of lung Qualified Code(s): J18.9 - Pneumonia, unspecified organism (3) Pleural effusion Current Visit: Yes Status: Acute (4) Chest pain Current Visit: Yes Status: Acute (5) Acute HFrEF (heart failure with reduced ejection fraction) Current Visit: Yes Status: Acute (6) Cardiomyopathy Current Visit: Yes Status: Chronic (7) CAD (coronary artery disease) Current Visit: Yes Status: Chronic (8) Stented coronary artery Current Visit: Yes Status: Chronic (9) HTN (hypertension) Current Visit: Yes Status: Chronic (10) Diabetes Current Visit: Yes Status: Chronic (11) Renal insufficiency Current Visit: Yes Status: Acute (12) Anemia Current Visit: Yes Status: Acute (13) Polycythemia Current Visit: Yes Status: Acute (14) Former tobacco use Current Visit: Yes Status: Chronic (15) NSTEMI (non-ST elevated myocardial infarction) Current Visit: Yes Status: Acute (16) Abnormal stress test Current Visit: Yes Status: Acute Subjective Date of service: 02/26/19 Principal diagnosis: Pleural effusion Interval history: resting in bed, no current complaints. in SR. Objective Last Vital Signs Temp 97.9 F 02/26/19 07:27 Pulse 83 02/26/19 10:47 Resp 18 02/26/19 07:27 BP 170/68 02/26/19 10:47 Pulse Ox 96 02/26/19 10:01 - Physical Examination General: No Apparent Distress HEENT: Positive: PERRL, Normocephaly, Mucus Membranes Moist Neck: Positive: neck supple, trachea midline Cardiac: Positive: Reg Rate and Rhythm, S1/S2 Lungs: Positive: Decreased Breath Sounds Neuro: Positive: Grossly Intact Abdomen: Negative: Tender Skin: Negative: Rash Musculoskeletal: No Pain Extremities: Present: edema (trace BLE) - Labs and Meds CBC 02/26/19 Range/Units 05:23 WBC 24.3 H (4.5-11.0) K/mm3 RBC 3.07 L (3.65-5.03) M/mm3 Hgb 7.5 L (10.1-14.3) gm/dl Hct 24.2 L (30.3-42.9) % Plt Count 603 H (140-440) K/mm3 Comprehensive Metabolic Panel 02/26/19 Range/Units 05:23 Sodium 132 L (137-145) mmol/L Potassium 4.1 (3.6-5.0) mmol/L Chloride 98.8 (98-107) mmol/L Carbon Dioxide 20 L (22-30) mmol/L BUN 33 H (7-17) mg/dL Creatinine 1.3 H (0.7-1.2) mg/dL Glucose 165 H (65-100) mg/dL Calcium 8.2 L (8.4-10.2) mg/dL - Imaging and Cardiology EKG: report reviewed, image reviewed Echo: report reviewed (02/19/2019 showed EF 30-35%, impaired relaxation, mild MR and TR, RVSP 46mmHg, basal anterior, mid anterior and apical anterior wall segments hypokinetic, mid inferoseptal and apical septal wall segments akinetic. ) - EKG Sinus rhythms and dysrhythmias: sinus rhythm Myocardial infarction: anterior MA (old age or i
--- NOTE | 2019-02-26 11:39 | XRay Report ---
CHEST 1 VIEW 02/26/2019 11:20 AM INDICATION / CLINICAL INFORMATION: Hypoxemia with upper lobe collapse. COMPARISON: 02/18/2019 FINDINGS: SUPPORT DEVICES: None. HEART / MEDIASTINUM: Stable. LUNGS / PLEURA: Stable left upper lobe atelectasis with associated moderate left pleural effusion. No pneumothorax. ADDITIONAL FINDINGS: No significant additional findings. IMPRESSION: 1. No acute findings. No adverse change from prior exam. Signer Name: Godfrey Garcia MD Signed: 02/26/2019 11:34 AM Workstation Name: [id number]
--- NOTE | 2019-02-26 13:54 | Gastroenterology Progress Note ---
Assessment and Plan 1. Anemia 2. Lung cancer -stable anemia, appears chronic (similar to labs in December) without overt gi bleeding. will hold off on gi work-up for anemia while under going work-up for suspected lung cancer in the absence of gi bleeding. can be done prior to d/c based on labs and treatment plans for lung cancer. will follow Subjective Date of service: 02/26/19 Principal diagnosis: lung cancer, anemia Interval history: pt seen and examined; no new gi complaints. tolerating po. denies overt gi bleeding Objective - Constitutional Vitals: Temp Pulse Resp BP Pulse Ox 98.1 F 84 18 174/67 99 02/26/19 10:59 02/26/19 10:59 02/26/19 10:59 02/26/19 10:59 02/26/19 10:59 General appearance: no acute distress - Respiratory Respiratory effort: normal Respiratory: bilateral: CTA - Cardiovascular Rhythm: regular Heart Sounds: Present: S1 & S2 - Gastrointestinal General gastrointestinal: Present: soft, non-tender, non-distended - Neurologic Neurological: alert and oriented x3 - Labs CBC & Chem 7: 02/26/19 05:23 02/26/19 05:23 Labs: Laboratory Results - last 24 hr 02/25/19 02/25/19 02/26/19 17:26 21:23 05:23 WBC 24.3 H RBC 3.07 L Hgb 7.5 L Hct 24.2 L MCV 79 MCH 25 L MCHC 31 RDW 19.5 H Plt Count 603 H Sodium Potassium Chloride Carbon Dioxide Anion Gap BUN Creatinine Estimated GFR BUN/Creatinine Ratio Glucose POC Glucose 334 H 233 H Calcium Magnesium 02/26/19 02/26/19 02/26/19 05:23 07:34 11:03 WBC RBC Hgb Hct MCV MCH MCHC RDW Plt Count Sodium 132 L Potassium 4.1 Chloride 98.8 Carbon Dioxide 20 L Anion Gap 17 BUN 33 H Creatinine 1.3 H Estimated GFR 48 BUN/Creatinine Ratio 25 Glucose 165 H POC Glucose 177 H 141 H Calcium 8.2 L Magnesium 1.70
[2019-02-26] MEDS: ALBUTEROL 2.5 MG/3 ML NEBU IH PRN (14:06)
--- NOTE | 2019-02-26 15:11 | Progress Note ---
Assessment and Plan / Acute hypoxic respiratory failure Possibly secondary to underlying pneumonia, left pleural effusion and CHF exacerbation. She has been placed on BiPAP - now weaned off s/p thoracentesis on 02/19 drained 700cc fluid, 2-D echo showed EF of 30-35% Need assessment for home O2 requirement before discharge /Left pleural effusion Thoracentesis done 02/[address] Carey that prelim path suggests squamous cell ca therfore CT biopsy lung FARAZ ordered CT guided lung biopsy now to be done on Friday /Left lung cavitating lung lesion and L pleural effusion: The patient also been treated for cavitary pneumonia Pleural fluid 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 Followed by Pulmonary. Need CT-guided lung biopsy for more tissue sampling /Anemia Obtain stool occult blood consulted GI if stool occult blood positive /Acute on chronic systolic CHF We will continue patient on routine home medications. Will monitor daily weight monitor input and output. 2-D echo showed EF of 30-35%, we'll continue Lasix Cardiology following. Stress test done 02/23 abnormal. Was scheduled for cardiac cath but canceled because of anemia /NEELIMA, acute on CKD? This appears chronic. Will monitor BUN and creatinine, consulted nephrology, following /Physical debility, PT recommended acute rehab /DVT prophylaxis SCDs only for now because pending lung biopsy Full code status Follow clinically, discharge planning pending on CT-guided lung biopsy Brief History: 73-year-old female with known history of hypertension coronary artery disease diabetes mellitus who presents to the emergency room complaining of shortness of breath. She was just recently discharged from the hospital with similar sympto ms, diagnosed with cavitary lesion in the left upper lobe was placed on antibiotics, was also ruled out for TB. She presents to the emergency room in respiratory distress. She was placed on BiPAP. Upon evaluation in the emergency room she was found to have findings consistent with moderate left pleural effusion - s/p thoracentesis. 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 Need CT-guided lung biopsy for more tissue sampling Hospitalist Physical exam: GENERAL: well-developed elderly AAF lying on bed appeared to be in no discomfort. HEENT: Normocephalic. Atraumatic. No conjunctival congestion or icterus. Patient has moist mucous membranes. NECK: Supple. Trachea midline. CHEST/LUNGS: BS auscultated bilaterally, breathing nonlabored. + Left sided rhonchi. HEART/CARDIOVASCULAR: Regular in rate and rhythm. S1 and S2 positive. ABDOMEN: Abdomen is soft, nontender. Patient has normal bowel sounds. SKIN: There is no rash. Warm and dry. NEURO: No focal motor deficit. Follows command. MUSCULOSKELETAL: No joint effusion or tenderness. EXTRIMITY: No edema, no cyanosis or clubbing. PSYCH: Cooperative. Subjective Date of service: 02/26/19 Principal diagnosis: lung cancer, anemia Interval history: Patient seen and examined breathing improved but still SOB on exertion Denies any chest pain, tolerating diet Plan for CT-guided biopsy on Friday Objective - Constitutional Vitals: Vital Signs - 12hr 02/26/19 02/26/19 02/26/19 04:28 05:00 07:27 Temperature 98.0 F 97.9 F Pulse Rate 75 79 Pulse Rate [ Anterior Bilateral Throughout] Pulse Rate [ Apical] Pulse Rate [ Dorsalis Pedis] Pulse Rate [ Left Radial] Pulse Rate [ Posterior Bilateral Throughout] Pulse Rate [ Right Radial] Respiratory 18 18 Rate Respiratory Rate [Anterior Bilateral Throughout] Respiratory Rate [Posterior Bilateral Throughout] Blood Pressure 140/54 148/50 157/62 O2 Sat by Pulse 100 Oximetry 02/26/19 02/26/19 02/26/19 10:00 10:01 10:47 Temperature Pulse Rate 83 Pulse Rate [ Anterior Bilateral Throughout] Pulse Rate [ 83 Apical] Pulse Rate [ 83 Dorsalis Pedis] Pulse Rate [ 83 Left Radial] Pulse Rate [ Posterior Bilateral Throughout] Pulse Rate [ 83 Right Radial] Respiratory 21 Rate Respiratory Rate [Anterior Bilateral Throughout] Respiratory Rate [Posterior Bilateral Throughout] Blood Pressure 170/68 O2 Sat by Pulse 98 96 Oximetry 02/26/19 02/26/19 02/26/19 10:59 14:05 14:07 Temperature 98.1 F Pulse Rate 84 86 Pulse Rate [ 85 Anterior Bilateral Throughout] Pulse Rate [ Apical] Pulse Rate [ Dorsalis Pedis] Pulse Rate [ Left Radial] Pulse Rate [ 84 Posterior Bilateral Throughout] Pulse Rate [ Right Radial] Respiratory 18 Rate Respiratory 18 Rate [Anterior Bilateral Throughout] Respiratory 18 Rate [Posterior Bilateral Throughout] Blood Pressure 174/67 143/86 O2 Sat by Pulse 99 Oximetry - Labs CBC & Chem 7: 03/01/19 06:41 03/01/19 06:41 Labs: Abnormal lab results 02/25/19 02/25/19 02/26/19 Range/Units 17:26 21:23 05:23 WBC 24.3 H (4.5-11.0) K/mm3 RBC 3.07 L (3.65-5.03) M/mm3 Hgb 7.5 L (10.1-14.3) gm/dl Hct 24.2 L (30.3-42.9) % MCH 25 L (28-32) pg RDW 19.5 H (13.2-15.2) % Plt Count 603 H (140-440) K/mm3 Sodium (137-145) mmol/L Carbon Dioxide (22-30) mmol/L BUN (7-17) mg/dL Creatinine (0.7-1.2) mg/dL Glucose (65-100) mg/dL POC Glucose 334 H 233 H (70-105) Calcium (8.4-10.2) mg/dL 02/26/19 02/26/19 02/26/19 Range/Units 05:23 07:34 11:03 WBC (4.5-11.0) K/mm3 RBC (3.65-5.03) M/mm3 Hgb (10.1-14.3) gm/dl Hct (30.3-42.9) % MCH (28-32) pg RDW (13.2-15.2) % Plt Count (140-440) K/mm3 Sodium 132 L (137-145) mmol/L Carbon Dioxide 20 L (22-30) mmol/L BUN 33 H (7-17) mg/dL Creatinine 1.3 H (0.7-1.2) mg/dL Glucose 165 H (65-100) mg/dL POC Glucose 177 H 141 H (70-105) Calcium 8.2 L (8.4-10.2) mg/dL
[2019-02-27] MEDS: hydrALAZINE 25 MG TAB PO SCH ×3 (06:29→22:30)
[2019-02-27] MEDS: FUROSEMIDE 40 MG/4 ML INJ IV SCH (06:29)
[2019-02-27] MEDS: INSULIN NPH/REGULAR 70/30 INJ SUB-Q SCH ×2 (08:00→17:33)
[2019-02-27] MEDS: INSULIN REGULAR, HUMAN 100 UNITS/1 ML SUB-Q SCH ×4 (08:00→22:30)
--- NOTE | 2019-02-27 09:19 | Progress Note ---
Assessment and Plan 1. Acute kidney injury: Mild NEELIMA superimposed on CKD stage 3, suspect vasomotor insult. Slight increase in the creatinine level noted, likely from diuresis. Monitor renal function. Avoid nephrotoxic agents. Meds dosage based on GFR. 2. FEN: Hyperkalemia, improved. Metabolic acidosis, monitor. Monitor lytes. 3. Acute hypoxic respiratory failure: Possibly secondary to underlying pneumonia, left pleural effusion and CHF exacerbation. 4. Left lung cavitating lung lesion and L pleural effusion: S/p thoracentesis. 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 Followed by Pulmonary. 5. Decompaensated CHF: Lasix changed to PO from IV. 6. CAD: Followed by Cards. 7. DM-2. 8. Hypertension: Monitor BP. 9. Anemia: POA. Followed by GI. Examination: General appearance: well-developed, well-nourished, appears stated age, no distress HEENT: ATNC, SKYE, mucous membranes moist, hearing intact, vision intact Neck: neck supple, trachea midline Respiratory: ctab Heart: regular, S1S2, no murmurs Gastrointestinal: normoactive bowel sounds, not tender Integumentary: no rash, warm and dry Neurologic: no focal deficit, no asterixis Ext: no edema noted Subjective Date of service: 02/27/19 Principal diagnosis: Pleural effusion Interval history: Patient was seen and examined at the bedside. Doing ok. Objective - Vital Signs Vital signs: Vital Signs - 12hr 02/26/19 02/26/19 02/27/19 22:00 23:48 04:38 Temperature 97.9 F 97.5 F L Pulse Rate 63 66 68 Respiratory 20 20 20 Rate Blood Pressure 159/62 157/57 O2 Sat by Pulse 100 95 Oximetry - Lab 02/26/19 05:23 02/27/19 03:56 Most recent lab results Calcium 8.0 mg/dL (8.4-10.2) L 02/27/19 03:56 Phosphorus 2.70 mg/dL (2.5-4.5) 02/23/19 06:26 Magnesium 1.70 mg/dL (1.7-2.3) 02/26/19 05:23 Medications & Allergies - Medications Allergies/Adverse Reactions: Allergies ibuprofen Allergy (Verified 02/18/19 23:29) Unknown Penicillins Allergy (Verified 02/18/19 23:29) Unknown Home Medications: Home Medications Medication Instructions Recorded Confirmed Last Taken Type Allopurinol 100 mg PO DAILY 12/26/18 02/19/19 Unknown History Aspirin 325 mg PO DAILY 12/26/18 02/19/19 Unknown History Cilostazol 100 mg PO BID 12/26/18 02/19/19 Unknown History Ferrous Sulfate 325 mg PO DAILY 12/26/18 02/19/19 Unknown History Metoprolol Tartrate 50 mg PO BID #60 12/29/18 02/19/19 Unknown Rx Ipratropium (Nf) [Atrovent HFA 2 puff IH Q6HR PRN #1 inha 01/11/19 02/19/19 Unknown Rx 17MCG/PUFF] Acetaminophen/Codeine [Tylenol 1 tab PO Q6H PRN #12 tab 01/21/19 02/19/19 Unknown Rx /Codeine # 3 tab] AtorvaSTATin [Lipitor] 40 mg PO QHS 02/09/19 02/19/19 Unknown History Pantoprazole [Protonix TAB] 40 mg PO QDAY #30 tablet 02/16/19 02/19/19 Unknown Rx cefUROXime [Ceftin] 500 mg PO Q12H 21 Days tablet 02/16/19 02/19/19 Unknown Rx glipiZIDE [Glucotrol] 5 mg PO BID #60 tablet 02/16/19 02/19/19 Unknown Rx hydrALAZINE [Apresoline TAB] 25 mg PO Q8HR #90 tablet 02/16/19 02/19/19 Unknown Rx metroNIDAZOLE [Flagyl] 500 mg PO Q8HR 21 Days 02/16/19 02/19/19 Unknown Rx Active Medications: Generic Name Dose Route Start Last Admin Trade Name Freq PRN Reason Stop Dose Admin Acetaminophen 650 mg 02/20/19 17:19 02/26/19 22:42 Tylenol PO 650 mg Q6H PRN Administration Pain, Mild (1-3) Albuterol 2.5 mg 02/20/19 23:45 02/26/19 14:06 Proventil IH 2.5 mg Q3HRT PRN Administration Shortness Of Breath Allopurinol 100 mg 02/21/19 12:15 02/26/19 10:48 Zyloprim PO 100 mg QDAY MAYLIN Administration Aspirin 325 mg 02/23/19 10:00 02/26/19 10:47 Ecotrin PO 325 mg QDAY MAYLIN Administration Atorvastatin Calcium 40 mg 02/21/19 22:00 02/26/19 22:42 Lipitor PO 40 mg QHS MAYLIN Administration Cilostazol 100 mg 02/21/19 22:00 02/26/19 22:41 Pletal PO 100 mg BID MAYLIN Administration Dextrose 0 ml 02/19/19 03:08 D50w (25gm) Syringe IV Q30MIN PRN Hypoglycemia Protocol Ferrous Sulfate 325 mg 02/22/19 10:00 02/26/19 10:47 Feosol PO 325 mg QDAY MAYLIN Administration Furosemide 20 mg 02/27/19 10:00 Lasix PO QDAY MAYLIN Hydralazine HCl 50 mg 02/27/19 08:26 Apresoline PO Q8HR MAYLIN Insulin Human Isoph/Insulin Regular 10 unit 02/25/19 08:00 02/26/19 16:30 Humulin 70/30 SUB-Q 10 unit BIDDIAB MAYLIN Administration Insulin Human Regular 0 units 02/19/19 07:30 02/26/19 22:43 Humulin R SUB-Q 8 units ACHS MAYLIN Administration Protocol Isosorbide Mononitrate 60 mg 02/27/19 08:26 Imdur PO QDAY MAYLIN Magnesium Hydroxide 30 ml 02/19/19 03:08 Milk Of Magnesia PO Q4H PRN Constipation Magnesium Oxide 400 mg 02/23/19 11:00 02/26/19 22:42 Mag-Ox PO 400 mg BID MAYLIN Administration Methylprednisolone Sodium Succinate 40 mg 02/22/19 10:00 02/26/19 10:48 Solu-Medrol IV 40 mg Q24HR MAYLIN Administration Metoprolol Tartrate 50 mg 02/21/19 22:00 02/26/19 22:42 Metoprolol PO 50 mg BID MAYLIN Administration Morphine Sulfate 2 mg 02/19/19 03:08 02/21/19 03:33 Morphine IV 2 mg Q4H PRN Administration Pain, Moderate (4-6) Pantoprazole Sodium 40 mg 02/22/19 10:00 02/26/19 10:48 Protonix PO 40 mg QDAY MAYLIN Administration Sodium Chloride 10 ml 02/19/19 10:00 02/27/19 00:27 Sodium Chloride Flush Syringe 10 Ml IV Not Given BID MAYLIN Sodium Chloride 10 ml 02/19/19 03:08 Sodium Chloride Flush Syringe 10 Ml IV PRN PRN LINE FLUSH
[2019-02-27] MEDS: ASPIRIN EC 325 MG TAB PO SCH (09:44)
[2019-02-27] MEDS: FERROUS SULFATE 325 MG TAB PO SCH (09:44)
[2019-02-27] MEDS: CILOSTAZOL 100 MG TAB PO SCH ×2 (09:44→22:30)
[2019-02-27] MEDS: allopurinoL 100 MG TAB PO SCH (09:44)
[2019-02-27] MEDS: PANTOPRAZOLE 40 MG TAB PO SCH (09:45)
[2019-02-27] MEDS: methylPREDNISolone Sod Succinate 40 MG/1 ML INJ IV SCH (09:45)
[2019-02-27] MEDS: MAGNESIUM OXIDE 400 MG TAB PO SCH ×2 (09:45→22:30)
[2019-02-27] MEDS: ACETAMINOPHEN 325 MG TAB PO PRN (09:45)
[2019-02-27] MEDS: METOPROLOL TARTRATE 50 MG TAB PO SCH ×2 (09:48→22:30)
[2019-02-27] MEDS: FUROSEMIDE 40 MG TAB PO SCH (09:50)
[2019-02-27] MEDS ORDERED: FUROSEMIDE 40 MG/4 ML INJ IV SCH (10:00)
--- NOTE | 2019-02-27 10:03 | Gastroenterology Progress Note ---
Assessment and Plan GI: no GI issues or signs bleeding overnight - continue current meds and dioet - possible EGD/colon this admission based on progress and results of lung eval - will follow Subjective Date of service: 02/27/19 Principal diagnosis: Pleural effusion Interval history: - no GI complaints overnight Objective - Constitutional Vitals: Temp Pulse Resp BP Pulse Ox 97.5 F L 68 20 157/57 95 02/27/19 04:38 02/27/19 04:38 02/27/19 04:38 02/27/19 04:38 02/27/19 04:38 General appearance: no acute distress - EENT Eyes: PERRL - Respiratory Respiratory: bilateral: CTA - Cardiovascular Rhythm: regular Heart Sounds: Present: S1 & S2 - Gastrointestinal General gastrointestinal: Present: soft, non-tender, non-distended - Labs CBC & Chem 7: 02/26/19 05:23 02/27/19 03:56 Labs: Laboratory Results - last 24 hr 02/26/19 02/26/19 02/26/19 11:03 15:46 21:20 Sodium Potassium Chloride Carbon Dioxide Anion Gap BUN Creatinine Estimated GFR BUN/Creatinine Ratio Glucose POC Glucose 141 H 269 H 353 H Calcium 02/27/19 02/27/19 03:56 08:17 Sodium 133 L Potassium 4.0 Chloride 97.2 L Carbon Dioxide 21 L Anion Gap 19 BUN 33 H Creatinine 1.5 H Estimated GFR 41 BUN/Creatinine Ratio 22 Glucose 170 H POC Glucose 136 H Calcium 8.0 L
--- NOTE | 2019-02-27 12:06 | Progress Note ---
Assessment and Plan /Left pleural effusion Thoracentesis done 02/[address] Carey that prelim path suggests squamous cell ca therfore CT biopsy lung FARAZ ordered CT guided lung biopsy now to be done on Friday /Left lung cavitating lung lesion and L pleural effusion: The patient also been treated for cavitary pneumonia Pleural fluid 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 Followed by Pulmonary. Need CT-guided lung biopsy for more tissue sampling / Acute hypoxic respiratory failure Possibly secondary to underlying pneumonia and malignancy, left pleural effusion and CHF exacerbation. She has been placed on BiPAP - now weaned off s/p thoracentesis on 02/19 drained 700cc fluid, 2-D echo showed EF of 30-35% Need assessment for home O2 requirement before discharge /Anemia Obtain stool occult blood consulted GI if stool occult blood positive /Acute on chronic systolic CHF We will continue patient on routine home medications. Will monitor daily weight monitor input and output. 2-D echo showed EF of 30-35%, we'll continue Lasix Cardiology following. Stress test done 02/23 abnormal. Was scheduled for cardiac cath but canceled because of anemia /NEELIMA, acute on CKD? This appears chronic. Will monitor BUN and creatinine, consulted nephrology, following /Physical debility, PT recommended acute rehab /DVT prophylaxis SCDs only for now because pending lung biopsy Full code status Follow clinically, discharge planning pending on CT-guided lung biopsy Brief History: 73-year-old female with known history of hypertension coronary artery disease diabetes mellitus who presents to the emergency room complaining of shortness of breath. She was just recently discharged from the hospital with similar symptoms, diagnosed with cavitary lesion in the left upper lobe was placed on antibiotics, was also ruled out for TB. She presents to the emergency room in respiratory distress. She was placed on BiPAP. Upon evaluation in the emergency room she was found to have findings consistent with moderate left pleural effusion - s/p thoracentesis. 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 Need CT-guided lung biopsy for more tissue sampling Hospitalist Physical exam: GENERAL: well-developed elderly AAF lying on bed appeared to be in no discomfo rt. HEENT: Normocephalic. Atraumatic. No conjunctival congestion or icterus. Patient has moist mucous membranes. NECK: Supple. Trachea midline. CHEST/LUNGS: BS auscultated bilaterally, breathing nonlabored. + Left sided rhonchi. HEART/CARDIOVASCULAR: Regular in rate and rhythm. S1 and S2 positive. ABDOMEN: Abdomen is soft, nontender. Patient has normal bowel sounds. SKIN: There is no rash. Warm and dry. NEURO: No focal motor deficit. Follows command. MUSCULOSKELETAL: No joint effusion or tenderness. EXTRIMITY: No edema, no cyanosis or clubbing. PSYCH: Cooperative. Subjective Date of service: 02/27/19 Principal diagnosis: Pleural effusion Interval history: Patient seen and examined breathing improved but still SOB on exertion Denies any chest pain, tolerating diet Plan for CT-guided biopsy on Friday Objective - Constitutional Vitals: Vital Signs - 12hr 02/27/19 02/27/19 02/27/19 04:38 09:45 09:47 Temperature 97.5 F L Pulse Rate 68 77 Respiratory 20 17 Rate Blood Pressure 157/57 155/56 O2 Sat by Pulse 95 Oximetry 02/27/19 09:48 Temperature Pulse Rate 77 Respiratory Rate Blood Pressure 155/56 O2 Sat by Pulse Oximetry - Labs CBC & Chem 7: 03/01/19 06:41 03/01/19 06:41 Labs: Abnormal lab results 02/26/19 02/26/19 02/27/19 Range/Units 15:46 21:20 03:56 Sodium 133 L (137-145) mmol/L Chloride 97.2 L (98-107) mmol/L Carbon Dioxide 21 L (22-30) mmol/L BUN 33 H (7-17) mg/dL Creatinine 1.5 H (0.7-1.2) mg/dL Glucose 170 H (65-100) mg/dL POC Glucose 269 H 353 H (70-105) Calcium 8.0 L (8.4-10.2) mg/dL 02/27/19 02/27/19 Range/Units 08:17 12:02 Sodium (137-145) mmol/L Chloride (98-107) mmol/L Carbon Dioxide (22-30) mmol/L BUN (7-17) mg/dL Creatinine (0.7-1.2) mg/dL Glucose (65-100) mg/dL POC Glucose 136 H 163 H (70-105) Calcium (8.4-10.2) mg/dL
--- NOTE | 2019-02-27 12:21 | Progress Note ---
Assessment and Plan Increase hydralazine and Imdur. Change Lasix to 20 mg daily. Obtain BMP in a.m. - Patient Problems (1) Pleural effusion Current Visit: Yes Status: Acute (2) Acute HFrEF (heart failure with reduced ejection fraction) Current Visit: Yes Status: Acute (3) Acute kidney injury Current Visit: Yes Status: Acute (4) Abnormal stress test Current Visit: Yes Status: Acute (5) CAD (coronary artery disease) Current Visit: Yes Status: Chronic Qualifiers: Coronary Disease-Associated Artery/Lesion type: [place] artery (6) Cardiomyopathy Current Visit: Yes Status: Chronic (7) Stented coronary artery Current Visit: Yes Status: Chronic (8) HTN (hypertension) Current Visit: Yes Status: Chronic Qualifiers: Hypertension type: essential hypertension Qualified Code(s): I10 - Essential (primary) hypertension (9) Anemia Current Visit: Yes Status: Acute Subjective Date of service: 02/27/19 Principal diagnosis: Acute HFrEF, L pleural effusion, CMP, CAD, s/p PCI, NEELIMA, HTN, Lung CA Interval history: No complaint. Objective Vital Signs Temp Pulse Pulse Pulse Pulse Resp Resp 02/27/19 10:00 76 19 02/27/19 09:48 77 02/27/19 09:47 77 02/27/19 09:45 17 02/27/19 04:38 97.5 F L 68 20 02/26/19 23:48 97.9 F 66 20 02/26/19 22:00 63 20 02/26/19 19:51 97.5 F L 77 20 02/26/19 17:00 72 02/26/19 15:45 98.2 F 81 18 02/26/19 15:39 97.9 F 73 18 02/26/19 14:07 85 84 18 02/26/19 14:05 86 Resp BP Pulse Ox 02/27/19 10:00 02/27/19 09:48 155/56 02/27/19 09:47 155/56 02/27/19 09:45 02/27/19 04:38 157/57 95 02/26/19 23:48 159/62 100 02/26/19 22:00 02/26/19 19:51 145/56 97 02/26/19 17:00 02/26/19 15:45 128/75 96 02/26/19 15:39 140/48 98 02/26/19 14:07 18 02/26/19 14:05 143/86 - Physical Examination General: No Apparent Distress HEENT: Positive: EOMI, Normocephaly, Mucus Membranes Moist Neck: Positive: neck supple, trachea midline Cardiac: Positive: Reg Rate and Rhythm, S1/S2 Lungs: Positive: Rhonchi (few at bases) Neuro: Positive: Grossly Intact Abdomen: Positive: Soft, Active Bowel Sounds. Negative: Tender Skin: Positive: Clear. Negative: Rash Musculoskeletal: Normal Range of Motion Extremities: Absent: edema - Labs and Meds Comprehensive Metabolic Panel 02/27/19 Range/Units 03:56 Sodium 133 L (137-145) mmol/L Potassium 4.0 (3.6-5.0) mmol/L Chloride 97.2 L (98-107) mmol/L Carbon Dioxide 21 L (22-30) mmol/L BUN 33 H (7-17) mg/dL Creatinine 1.5 H (0.7-1.2) mg/dL Glucose 170 H (65-100) mg/dL Calcium 8.0 L (8.4-10.2) mg/dL - Imaging and Cardiology EKG: image reviewed Echo: report reviewed (02/19/2019 showed EF 30-35%, impaired relaxation, mild MR and TR, RVSP 46mmHg, basal anterior, mid anterior and apical anterior wall segments hypokinetic, mid inferoseptal and apical septal wall segments akinetic. ) - Telemetry EKG Rhythm: Sinus Rhythm - EKG Sinus rhythms and dysrhythmias: sinus rhythm Myocardial infarction: anterior [place] (old age or i
[2019-02-28] MEDS: hydrALAZINE 25 MG TAB PO SCH ×3 (06:06→21:47)
[2019-02-28] MEDS: ACETAMINOPHEN 325 MG TAB PO PRN (06:07)
[2019-02-28 07:48] LABS: Hematocrit 25.1 % (30.3-42.9); Hemoglobin 8.1 gm/dl (10.1-14.3); Mean Corpuscular HGB Conc 32 % (30-34); Mean Corpuscular Volume 79 fl (79-97); Platelet Count 575 K/mm3 (140-440); Red Blood Count 3.17 M/mm3 (3.65-5.03)
[2019-02-28 07:49] LABS: Red Cell Distribution Width 20.3 % (13.2-15.2)
[2019-02-28] MEDS: INSULIN REGULAR, HUMAN 100 UNITS/1 ML SUB-Q SCH ×4 (08:00→21:48)
[2019-02-28 08:02] LABS: INR 1.02 (0.87-1.13)
[2019-02-28 08:14] LABS: Calcium 8.3 mg/dL (8.4-10.2)
[2019-02-28] MEDS: INSULIN NPH/REGULAR 70/30 INJ SUB-Q SCH ×2 (08:15→17:21)
--- NOTE | 2019-02-28 08:45 | Event Note ---
Date: 02/27/19 [id number]
--- NOTE | 2019-02-28 09:49 | Progress Note ---
Assessment and Plan 1. Acute kidney injury: Mild NEELIMA superimposed on CKD stage 3, suspect vasomotor insult. Creatinine level is better today. Monitor renal function. Avoid nephrotoxic agents. Meds dosage based on GFR. 2. FEN: Hyperkalemia, improved. Metabolic acidosis, monitor. Monitor lytes. 3. Acute hypoxic respiratory failure: Possibly secondary to underlying pneumonia, left pleural effusion and CHF exacerbation. 4. Left lung cavitating lung lesion and L pleural effusion: S/p thoracentesis. 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 Followed by Pulmonary. 5. Decompensated CHF: Continue Lasix. 6. CAD: Followed by Cards. 7. DM-2. 8. Hypertension: Monitor BP. 9. Anemia: POA. Followed by GI. Examination: General appearance: well-developed, well-nourished, appears stated age, no distress HEENT: ATNC, SKYE, mucous membranes moist, hearing intact, vision intact Neck: neck supple, trachea midline Respiratory: ctab Heart: regular, S1S2, no murmurs Gastrointestinal: normoactive bowel sounds, not tender Integumentary: no rash, warm and dry Neurologic: no focal deficit, no asterixis Ext: 1+ LE edema noted Subjective Date of service: 02/28/19 Principal diagnosis: Acute HFrEF, L pleural effusion, CMP, CAD, s/p PCI, NEELIMA, HTN, Lung CA Interval history: Patient was seen and examined at the bedside. Doing ok. Objective - Vital Signs Vital signs: Vital Signs - 12hr 02/27/19 02/27/19 02/28/19 22:00 23:56 04:48 Temperature 98.5 F 98.5 F Pulse Rate 71 74 81 Pulse Rate [ Apical] Respiratory 20 20 24 Rate Blood Pressure 156/56 177/80 O2 Sat by Pulse 95 92 Oximetry 02/28/19 02/28/19 08:24 08:37 Temperature Pulse Rate Pulse Rate [ 82 Apical] Respiratory 17 Rate Blood Pressure O2 Sat by Pulse 92 Oximetry - Lab 02/28/19 07:36 02/28/19 07:36 Most recent lab results Calcium 8.3 mg/dL (8.4-10.2) L 02/28/19 07:36 Phosphorus 2.70 mg/dL (2.5-4.5) 02/23/19 06:26 Magnesium 1.70 mg/dL (1.7-2.3) 02/26/19 05:23 Medications & Allergies - Medications Allergies/Adverse Reactions: Allergies ibuprofen Allergy (Verified 02/18/19 23:29) Unknown Penicillins Allergy (Verified 02/18/19 23:29) Unknown Home Medications: Home Medications Medication Instructions Recorded Confirmed Last Taken Type Allopurinol 100 mg PO DAILY 12/26/18 02/19/19 Unknown History Aspirin 325 mg PO DAILY 12/26/18 02/19/19 Unknown History Cilostazol 100 mg PO BID 12/26/18 02/19/19 Unknown History Ferrous Sulfate 325 mg PO DAILY 12/26/18 02/19/19 Unknown History Metoprolol Tartrate 50 mg PO BID #60 12/29/18 02/19/19 Unknown Rx Ipratropium (Nf) [Atrovent HFA 2 puff IH Q6HR PRN #1 inha 01/11/19 02/19/19 Unkn own Rx 17MCG/PUFF] Acetaminophen/Codeine [Tylenol 1 tab PO Q6H PRN #12 tab 01/21/19 02/19/19 Unknown Rx /Codeine # 3 tab] AtorvaSTATin [Lipitor] 40 mg PO QHS 02/09/19 02/19/19 Unknown History Pantoprazole [Protonix TAB] 40 mg PO QDAY #30 tablet 02/16/19 02/19/19 Unknown Rx cefUROXime [Ceftin] 500 mg PO Q12H 21 Days tablet 02/16/19 02/19/19 Unknown Rx glipiZIDE [Glucotrol] 5 mg PO BID #60 tablet 02/16/19 02/19/19 Unknown Rx hydrALAZINE [Apresoline TAB] 25 mg PO Q8HR #90 tablet 02/16/19 02/19/19 Unknown Rx metroNIDAZOLE [Flagyl] 500 mg PO Q8HR 21 Days 02/16/19 02/19/19 Unknown Rx Active Medications: Generic Name Dose Route Start Last Admin Trade Name Freq PRN Reason Stop Dose Admin Acetaminophen 650 mg 02/20/19 17:19 02/28/19 06:07 Tylenol PO 650 mg Q6H PRN Administration Pain, Mild (1-3) Albuterol 2.5 mg 02/20/19 23:45 02/26/19 14:06 Proventil IH 2.5 mg Q3HRT PRN Administration Shortness Of Breath Allopurinol 100 mg 02/21/19 12:15 02/27/19 09:44 Zyloprim PO 100 mg QDAY MAYLIN Administration Aspirin 325 mg 02/23/19 10:00 02/27/19 09:44 Ecotrin PO 325 mg QDAY MAYLIN Administration Atorvastatin Calcium 40 mg 02/21/19 22:00 02/27/19 22:30 Lipitor PO 40 mg QHS MAYLIN Administration Cilostazol 100 mg 02/21/19 22:00 02/27/19 22:30 Pletal PO 100 mg BID MAYLIN Administration Dextrose 0 ml 02/19/19 03:08 D50w (25gm) Syringe IV Q30MIN PRN Hypoglycemia Protocol Ferrous Sulfate 325 mg 02/22/19 10:00 02/27/19 09:44 Feosol PO 325 mg QDAY MAYLIN Administration Furosemide 20 mg 02/27/19 10:00 02/27/19 09:50 Lasix PO 20 mg QDAY MAYLIN Administration Hydralazine HCl 100 mg 02/28/19 10:00 Apresoline PO BID MAYLIN Insulin Human Isoph/Insulin Regular 10 unit 02/25/19 08:00 02/27/19 17:33 Humulin 70/30 SUB-Q 10 unit BIDDIAB MAYLIN Administration Insulin Human Regular 0 units 02/19/19 07:30 02/27/19 22:30 Humulin R SUB-Q 4 units ACHS MAYLIN Administration Protocol Isosorbide Mononitrate 120 mg 02/28/19 07:47 Imdur PO QDAY MAYLIN Magnesium Hydroxide 30 ml 02/19/19 03:08 Milk Of Magnesia PO Q4H PRN Constipation Magnesium Oxide 400 mg 02/23/19 11:00 02/27/19 22:30 Mag-Ox PO 400 mg BID MAYLIN Administration Methylprednisolone Sodium Succinate 40 mg 02/22/19 10:00 02/27/19 09:45 Solu-Medrol IV 40 mg Q24HR MAYLIN Administration Metoprolol Tartrate 50 mg 02/21/19 22:00 02/27/19 22:30 Metoprolol PO 50 mg BID MAYLIN Administration Morphine Sulfate 2 mg 02/19/19 03:08 02/21/19 03:33 Morphine IV 2 mg Q4H PRN Administration Pain, Moderate (4-6) Pantoprazole Sodium 40 mg 02/22/19 10:00 02/27/19 09:45 Protonix PO 40 mg QDAY MAYLIN Administration Sodium Chloride 10 ml 02/19/19 10:00 02/27/19 22:34 Sodium Chloride Flush Syringe 10 Ml IV Not Given BID MAYLIN Sodium Chloride 10 ml 02/19/19 03:08 Sodium Chloride Flush Syringe 10 Ml IV PRN PRN LINE FLUSH
--- NOTE | 2019-02-28 10:00 | Gastroenterology Progress Note ---
Assessment and Plan GI: anemia w/o active bleeding - no GI issues overnight - possible EGD/colon based on progress and results Pulm eval - no changes, will follow Subjective Date of service: 02/28/19 Principal diagnosis: Acute HFrEF, L pleural effusion, CMP, CAD, s/p PCI, NEELIMA, HTN, Lung CA Interval history: - no GI complaints overnight Objective - Constitutional Vitals: Temp Pulse Resp BP Pulse Ox 98.5 F 82 17 177/80 92 02/28/19 04:48 02/28/19 08:37 02/28/19 08:37 02/28/19 04:48 02/28/19 08:24 General appearance: no acute distress - EENT Eyes: PERRL - Respiratory Respiratory: bilateral: rhonchi - Cardiovascular Rhythm: regular Heart Sounds: Present: S1 & S2 - Gastrointestinal General gastrointestinal: Present: soft, non-tender, non-distended - Labs CBC & Chem 7: 02/28/19 07:36 02/28/19 07:36 Labs: Laboratory Results - last 24 hr 02/27/19 02/27/19 02/27/19 12:02 17:02 21:17 WBC RBC Hgb Hct MCV MCH MCHC RDW Plt Count PT INR Sodium Potassium Chloride Carbon Dioxide Anion Gap BUN Creatinine Estimated GFR BUN/Creatinine Ratio Glucose POC Glucose 163 H 278 H 294 H Calcium 02/28/19 02/28/19 02/28/19 07:36 07:36 07:36 WBC 22.5 H RBC 3.17 L Hgb 8.1 L Hct 25.1 L MCV 79 MCH 26 L MCHC 32 RDW 20.3 H Plt Count 575 H PT 13.3 INR 1.02 Sodium 132 L Potassium 4.0 Chloride 98.8 Carbon Dioxide 18 L Anion Gap 19 BUN 33 H Creatinine 1.2 Estimated GFR 53 BUN/Creatinine Ratio 28 Glucose 112 H POC Glucose Calcium 8.3 L 02/28/19 08:16 WBC RBC Hgb Hct MCV MCH MCHC RDW Plt Count PT INR Sodium Potassium Chloride Carbon Dioxide Anion Gap BUN Creatinine Estimated GFR BUN/Creatinine Ratio Glucose POC Glucose 117 H Calcium
--- NOTE | 2019-02-28 10:39 | Progress Note ---
Assessment and Plan Cardiac status is stable. Continue to monitor renal indices and electrolytes. If sodium level drops further, will discontinue diuretics altogether. - Patient Problems (1) Pleural effusion Current Visit: Yes Status: Acute (2) Acute HFrEF (heart failure with reduced ejection fraction) Current Visit: Yes Status: Acute (3) Acute kidney injury Current Visit: Yes Status: Acute (4) Abnormal stress test Current Visit: Yes Status: Acute (5) CAD (coronary artery disease) Current Visit: Yes Status: Chronic Qualifiers: Coronary Disease-Associated Artery/Lesion type: [place] artery (6) Cardiomyopathy Current Visit: Yes Status: Chronic (7) Stented coronary artery Current Visit: Yes Status: Chronic (8) HTN (hypertension) Current Visit: Yes Status: Chronic Qualifiers: Hypertension type: essential hypertension Qualified Code(s): I10 - Essential (primary) hypertension (9) Anemia Current Visit: Yes Status: Acute Subjective Date of service: 02/28/19 Principal diagnosis: Acute HFrEF, L pleural effusion, CMP, CAD, s/p PCI, NEELIMA, HTN, Lung CA Interval history: No complaint. Objective Vital Signs Temp Pulse Pulse Resp BP Pulse Ox 02/28/19 08:37 82 17 02/28/19 08:24 92 02/28/19 04:48 98.5 F 81 24 177/80 92 02/27/19 23:56 98.5 F 74 20 156/56 95 02/27/19 22:00 71 20 02/27/19 19:27 100 02/27/19 19:15 98.3 F 72 20 150/64 97 02/27/19 18:25 97.1 F L 72 18 153/63 98 02/27/19 13:46 67 144/54 96 - Physical Examination General: No Apparent Distress HEENT: Positive: EOMI, Normocephaly, Mucus Membranes Moist Neck: Positive: neck supple, trachea midline Cardiac: Positive: Reg Rate and Rhythm, S1/S2 Lungs: Positive: Decreased Breath Sounds (left base) Neuro: Positive: Grossly Intact Abdomen: Positive: Soft, Active Bowel Sounds. Negative: Tender Skin: Positive: Clear. Negative: Rash Musculoskeletal: Normal Range of Motion Extremities: Present: edema (trace pitting bilateral edema) - Labs and Meds Coagulation 02/28/19 Range/Units 07:36 PT 13.3 (12.2-14.9) Sec. INR 1.02 (0.87-1.13) CBC 02/28/19 Range/Units 07:36 WBC 22.5 H (4.5-11.0) K/mm3 RBC 3.17 L (3.65-5.03) M/mm3 Hgb 8.1 L (10.1-14.3) gm/dl Hct 25.1 L (30.3-42.9) % Plt Count 575 H (140-440) K/mm3 Comprehensive Metabolic Panel 02/28/19 Range/Units 07:36 Sodium 132 L (137-145) mmol/L Potassium 4.0 (3.6-5.0) mmol/L Chloride 98.8 (98-107) mmol/L Carbon Dioxide 18 L (22-30) mmol/L BUN 33 H (7-17) mg/dL Creatinine 1.2 (0.7-1.2) mg/dL Glucose 112 H (65-100) mg/dL Calcium 8.3 L (8.4-10.2) mg/dL - Imaging and Cardiology EKG: image reviewed Echo: report reviewed (02/19/2019 showed EF 30-35%, impaired relaxation, mild MR and TR, RVSP 46mmHg, basal anterior, mid anterior and apical anterior wall segments hypokinetic, mid inferoseptal and apical septal wall segments akinetic. ) - Telemetry EKG Rhythm: Sinus Rhythm - EKG Sinus rhythms and dysrhythmias: sinus rhythm Myocardial infarction: anterior [place] (old age or i
[2019-02-28] MEDS: MAGNESIUM OXIDE 400 MG TAB PO SCH ×2 (10:46→21:47)
[2019-02-28] MEDS: CILOSTAZOL 100 MG TAB PO SCH ×2 (10:46→21:47)
[2019-02-28] MEDS: FERROUS SULFATE 325 MG TAB PO SCH (10:46)
[2019-02-28] MEDS: ASPIRIN EC 325 MG TAB PO SCH (10:46)
[2019-02-28] MEDS: methylPREDNISolone Sod Succinate 40 MG/1 ML INJ IV SCH (10:46)
[2019-02-28] MEDS: PANTOPRAZOLE 40 MG TAB PO SCH (10:46)
[2019-02-28] MEDS: FUROSEMIDE 40 MG TAB PO SCH (10:47)
[2019-02-28] MEDS: METOPROLOL TARTRATE 50 MG TAB PO SCH ×2 (10:48→21:47)
[2019-02-28] MEDS: allopurinoL 100 MG TAB PO SCH (10:48)
--- NOTE | 2019-02-28 10:58 | Progress Note ---
Assessment and Plan 73 y/o female, former smoker admitted with worsening dyspnea, found to have moderate left sided pleural effusion. 02/28/19 Patient awaiting biopsy of left upper lobe lesion tomorrow. Spoke with ONC on yesterday who confirms they need more tissue and saw patient. Pulmonary status is currently stable and effusions have not recurred. Cardiology following. GI following. ONce biospy done, from a pulmonary standpoint, if no complications, could be ready for discharge. I will follow her in the office and she will need full PFT and 6 minute walk when presenting to us. 02/26/19 Will repeat CXR today and if pleural effusion is present will tap and send for cytology as CT guided biopsy cannot be done until Friday. Family has been waiting for a plan for some time now. If no effusion present will need CT guided biopsy. 02/25/19 At this point, pulm status is as stable as can be expected. Sats good on 2 liters. I have not repeated imaging but no indication that effusion has returned clinically. Will continue supplemental O2. Await biopsy so that more tissue can be obtained. Once done can consult onc. Agree with GI and Cards notes. Will continue to follow. Hopeful that biopsy can be done today. 1. 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 Suggest more tissue and feel that CT guided biopsy is best as the path department had a difficult time with specimen from bronch. Spoke with IMS about CT guided biopsy. Once done patient will need Onc follow up and likely and outpatient pet scan. Cardiology has suspended further work up because of anemia. Will need to be complete to assess risk for further treatment/options in regards to malignancy down the line. Subjective Date of service: 02/28/19 Principal diagnosis: Acute HFrEF, L pleural effusion, CMP, CAD, s/p PCI, NEELIMA, HTN, Lung CA Objective Vital Signs - 12hr 02/27/19 02/28/19 02/28/19 23:56 04:48 08:24 Temperature 98.5 F 98.5 F Pulse Rate 74 81 Pulse Rate [ Apical] Respiratory 20 24 Rate Blood Pressure 156/56 177/80 O2 Sat by Pulse 95 92 92 Oximetry 02/28/19 08:37 Temperature Pulse Rate Pulse Rate [ 82 Apical] Respiratory 17 Rate Blood Pressure O2 Sat by Pulse Oximetry Constitutional: no acute distress, alert Eyes: non-icteric ENT: oropharynx moist Neck: supple Effort: normal Ascultation: Right: clear, Left: rales, egophony, Bilateral: diminished breath sounds (bases), wheezes Cardiovascular: regular rate and rhythm (no mrg) Gastrointestinal: normoactive bowel sounds, soft, non-tender, non-distended Integumentary: normal Extremities: no cyanosis, no edema, pink and warm Neurologic: normal mental status, non-focal exam, pupils equal and round Psychiatric: mood appropriate, affect normal CBC and BMP: 02/28/19 07:36 02/28/19 07:36 ABG, PT/INR, D-dimer: ABG POC ABG pH 7.377 (7.35-7.45) 02/18/19 23:44 POC ABG pCO2 35.6 (35-45) 02/18/19 23:44 POC ABG pO2 253 (80-105) H 02/18/19 23:44 POC ABG HCO3 20.9 (22-26 mml/L) 02/18/19 23:44 POC ABG Total CO2 22 (23-27mmol/L) 02/18/19 23:44 POC ABG O2 Sat 100 02/18/19 23:44 PT/INR, D-dimer PT 13.3 Sec. (12.2-14.9) 02/28/19 07:36 INR 1.02 (0.87-1.13) 02/28/19 07:36 Abnormal lab findings: Abnormal Labs 02/18/19 02/18/19 02/18/19 23:11 23:11 23:11 WBC 14.5 H RBC 3.33 L Hgb 8.3 L Hct 26.2 L MCV MCH 25 L RDW 19.4 H Plt Count 582 H Lymph % (Auto) W[place]er % (Auto) 10.5 H [place]er # 1.5 H Baso # 0.2 H Seg Neutrophils % 73.2 H Seg Neuts % (Manual) Lymphocytes % (Manual) Monocytes % (Manual) Seg Neutrophils # 10.6 H Seg Neutrophils # Man Monocytes # (Manual) PT INR POC ABG pO2 Sodium 136 L Potassium Chloride Carbon Dioxide 18 L BUN 26 H Creatinine 1.3 H Glucose 118 H POC Glucose Calcium Magnesium TIBC Ferritin Troponin T NT-Pro-B Natriuret Pep 4784 H Albumin 2.4 L HDL Cholesterol Fluid Glucose Fluid Total Protein 11/14/19 11/15/19 11/15/19 23:44 08:09 12:03 WBC RBC Hgb Hct MCV MCH RDW Plt Count Lymph % (Auto) [place]er % (Auto) W[place]er # Baso # Seg Neutrophils % Seg Neuts % (Manual) Lymphocytes % (Manual) Monocytes % (Manual) Seg Neutrophils # Seg Neutrophils # Man Monocytes # (Manual) PT INR POC ABG pO2 253 H Sodium Potassium Chloride Carbon Dioxide BUN Creatinine Glucose POC Glucose 224 H 187 H Calcium Magnesium TIBC Ferritin Troponin T NT-Pro-B Natriuret Pep Albumin HDL Cholesterol Fluid Glucose Fluid Total Protein 02/19/19 02/19/19 02/19/19 14:40 17:49 18:22 WBC RBC Hgb Hct MCV MCH RDW Plt Count Lymph % (Auto) [place]er % (Auto) W[place]er # Baso # Seg Neutrophils % Seg Neuts % (Manual) Lymphocytes % (Manual) Monocytes % (Manual) Seg Neutrophils # Seg Neutrophils # Man Monocytes # (Manual) PT 15.7 H INR 1.27 H POC ABG pO2 Sodium Potassium Chloride Carbon Dioxide BUN Creatinine Glucose POC Glucose 239 H Calcium Magnesium TIBC Ferritin Troponin T NT-Pro-B Natriuret Pep Albumin HDL Cholesterol Fluid Glucose 247 H Fluid Total Protein 3.3 L 02/19/19 02/20/19 02/20/19 22:24 04:45 04:45 WBC 18.6 H RBC 3.07 L Hgb 7.4 L Hct 23.8 L MCV 78 L MCH 24 L RDW 19.4 H Plt Count 596 H Lymph % (Auto) 8.8 L [place]er % (Auto) Wagoner # 1.0 H Baso # Seg Neutrophils % 85.6 H Seg Neuts % (Manual) Lymphocytes % (Manual) Monocytes % (Manual) Seg Neutrophils # 15.9 H Seg Neutrophils # Man Monocytes # (Manual) PT INR POC ABG pO2 Sodium Potassium 5.2 H D Chloride Carbon Dioxide 19 L BUN 36 H Creatinine 1.6 H Glucose POC Glucose 170 H Calcium Magnesium TIBC Ferritin Troponin T NT-Pro-B Natriuret Pep Albumin HDL Cholesterol Fluid Glucose Fluid Total Protein 02/20/19 02/20/19 02/20/19 11:17 15:39 20:37 WBC RBC Hgb Hct MCV MCH RDW Plt Count Lymph % (Auto) [place]er % (Auto) [place]er # Baso # Seg Neutrophils % Seg Neuts % (Manual) Lymphocytes % (Manual) Monocytes % (Manual) Seg Neutrophils # Seg Neutrophils # Man Monocytes # (Manual) PT INR POC ABG pO2 Sodium Potassium Chloride Carbon Dioxide BUN Creatinine Glucose POC Glucose 160 H 147 H 146 H Calcium Magnesium TIBC Ferritin Troponin T NT-Pro-B Natriuret Pep Albumin HDL Cholesterol Fluid Glucose Fluid Total Protein 02/21/19 02/21/19 02/21/19 06:34 07:39 11:45 WBC RBC Hgb Hct MCV MCH RDW Plt Count Lymph % (Auto) [place]agoner % (Auto) W[place]er # Baso # Seg Neutrophils % Seg Neuts % (Manual) Lymphocytes % (Manual) Monocytes % (Manual) Seg Neutrophils # Seg Neutrophils # Man Monocytes # (Manual) PT INR POC ABG pO2 Sodium 135 L Potassium 5.3 H Chloride Carbon Dioxide 17 L BUN 36 H Creatinine 1.5 H Glucose 179 H POC Glucose 184 H 268 H Calcium Magnesium TIBC Ferritin Troponin T NT-Pro-B Natriuret Pep Albumin HDL Cholesterol Fluid Glucose Fluid Total Protein 02/21/19 02/21/19 02/21/19 11:59 15:41 20:43 WBC 13.6 H RBC 3.19 L Hgb 8.0 L Hct 24.7 L MCV 78 L MCH 25 L RDW 19.4 H Plt Count 614 H Lymph % (Auto) [place]er % (Auto) [place]er # Baso # Seg Neutrophils % Seg Neuts % (Manual) Lymphocytes % (Manual) Monocytes % (Manual) Seg Neutrophils # Seg Neutrophils # Man Monocytes # (Manual) PT INR POC ABG pO2 Sodium Potassium Chloride Carbon Dioxide BUN Creatinine Glucose POC Glucose 278 H 251 H Calcium Magnesium TIBC Ferritin Troponin T NT-Pro-B Natriuret Pep Albumin HDL Cholesterol Fluid Glucose Fluid Total Protein 02/22/19 02/22/19 02/22/19 00:44 08:04 12:24 WBC RBC Hgb Hct MCV MCH RDW Plt Count Lymph % (Auto) [place]agoner % (Auto) W[place]er # Baso # Seg Neutrophils % Seg Neuts % (Manual) Lymphocytes % (Manual) Monocytes % (Manual) Seg Neutrophils # Seg Neutrophils # Man Monocytes # (Manual) PT INR POC ABG pO2 Sodium 133 L Potassium Chloride Carbon Dioxide 19 L BUN 37 H Creatinine 1.5 H Glucose 139 H POC Glucose 124 H 174 H Calcium 8.1 L Magnesium TIBC Ferritin Troponin T NT-Pro-B Natriuret Pep Albumin HDL Cholesterol Fluid Glucose Fluid Total Protein 02/22/19 02/22/19 02/22/19 13:15 15:56 21:30 WBC RBC Hgb Hct MCV MCH RDW Plt Count Lymph % (Auto) [place]agoner % (Auto) W[place]er # Baso # Seg Neutrophils % Seg Neuts % (Manual) Lymphocytes % (Manual) Monocytes % (Manual) Seg Neutrophils # Seg Neutrophils # Man Monocytes # (Manual) PT INR POC ABG pO2 Sodium Potassium Chloride Carbon Dioxide BUN Creatinine Glucose POC Glucose 359 H 398 H Calcium Magnesium TIBC Ferritin Troponin T 0.208 H* D NT-Pro-B Natriuret Pep Albumin HDL Cholesterol 72 H Fluid Glucose Fluid Total Protein 02/23/19 02/23/19 02/23/19 06:26 06:49 07:43 WBC RBC Hgb Hct MCV MCH RDW Plt Count Lymph % (Auto) [place]agoner % (Auto) [place]er # Baso # Seg Neutrophils % Seg Neuts % (Manual) Lymphocytes % (Manual) Monocytes % (Manual) Seg Neutrophils # Seg Neutrophils # Man Monocytes # (Manual) PT INR POC ABG pO2 Sodium 132 L Potassium Chloride Carbon Dioxide 20 L BUN 43 H Creatinine 1.3 H Glucose 163 H POC Glucose 183 H Calcium 8.1 L Magnesium 1.60 L TIBC Ferritin Troponin T 0.173 H* NT-Pro-B Natriuret Pep Albumin HDL Cholesterol Fluid Glucose Fluid Total Protein 02/23/19 02/23/19 02/23/19 12:24 17:09 21:47 WBC RBC Hgb Hct MCV MCH RDW Plt Count Lymph % (Auto) [place]er % (Auto) [place]er # Baso # Seg Neutrophils % Seg Neuts % (Manual) Lymphocytes % (Manual) Monocytes % (Manual) Seg Neutrophils # Seg Neutrophils # Man Monocytes # (Manual) PT INR POC ABG pO2 Sodium Potassium Chloride Carbon Dioxide BUN Creatinine Glucose POC Glucose 186 H 245 H 203 H Calcium Magnesium TIBC Ferritin Troponin T NT-Pro-B Natriuret Pep Albumin HDL Cholesterol Fluid Glucose Fluid Total Protein 02/24/19 02/24/19 02/24/19 05:14 05:14 05:14 WBC 20.8 H RBC 2.99 L Hgb 7.4 L Hct 23.8 L MCV MCH 25 L RDW 19.4 H Plt Count 608 H Lymph % (Auto) [place]er % (Auto) W[place]er # Baso # Seg Neutrophils % Seg Neuts % (Manual) 85.0 H Lymphocytes % (Manual) 7.0 L Monocytes % (Manual) 8.0 H Seg Neutrophils # Seg Neutrophils # Man 17.7 H Monocytes # (Manual) 1.7 H PT 15.1 H INR 1.20 H POC ABG pO2 Sodium Potassium Chloride Carbon Dioxide 19 L BUN 38 H Creatinine Glucose 168 H POC Glucose Calcium 8.0 L Magnesium TIBC Ferritin Troponin T 0.216 H* D NT-Pro-B Natriuret Pep Albumin HDL Cholesterol Fluid Glucose Fluid Total Protein 02/24/19 02/24/19 02/24/19 07:47 11:39 15:48 WBC RBC Hgb Hct MCV MCH RDW Plt Count Lymph % (Auto) [place]er % (Auto) [place] # Baso # Seg Neutrophils % Seg Neuts % (Manual) Lymphocytes % (Manual) Monocytes % (Manual) Seg Neutrophils # Seg Neutrophils # Man Monocytes # (Manual) PT INR POC ABG pO2 Sodium Potassium Chloride Carbon Dioxide BUN Creatinine Glucose POC Glucose 180 H 227 H 234 H Calcium Magnesium TIBC Ferritin Troponin T NT-Pro-B Natriuret Pep Albumin HDL Cholesterol Fluid Glucose Fluid Total Protein 02/24/19 02/25/19 02/25/19 20:56 04:27 04:27 WBC 20.0 H RBC 2.96 L Hgb 7.4 L Hct 23.5 L MCV MCH 25 L RDW 19.4 H Plt Count 575 H Lymph % (Auto) [place]er % (Auto) [place] # Baso # Seg Neutrophils % Seg Neuts % (Manual) Lymphocytes % (Manual) Monocytes % (Manual) Seg Neutrophils # Seg Neutrophils # Man Monocytes # (Manual) PT INR POC ABG pO2 Sodium 135 L Potassium Chloride Carbon Dioxide 19 L BUN 32 H Creatinine Glucose 61 L POC Glucose 310 H Calcium 8.3 L Magnesium TIBC Ferritin Troponin T NT-Pro-B Natriuret Pep Albumin HDL Cholesterol Fluid Glucose Fluid Total Protein 02/25/19 02/25/19 02/25/19 07:49 11:47 11:47 WBC RBC Hgb Hct MCV MCH RDW Plt Count Lymph % (Auto) [place]er % (Auto) [place] # Baso # Seg Neutrophils % Seg Neuts % (Manual) Lymphocytes % (Manual) Monocytes % (Manual) Seg Neutrophils # Seg Neutrophils # Man Monocytes # (Manual) PT INR POC ABG pO2 Sodium Potassium Chloride Carbon Dioxide BUN Creatinine Glucose POC Glucose 112 H Calcium Magnesium TIBC 120 L Ferritin 893.3 H Troponin T NT-Pro-B Natriuret Pep Albumin HDL Cholesterol Fluid Glucose Fluid Total Protein 02/25/19 02/25/19 02/25/19 11:49 17:26 21:23 WBC RBC Hgb Hct MCV MCH RDW Plt Count Lymph % (Auto) [place]agoner % (Auto) [place] # Baso # Seg Neutrophils % Seg Neuts % (Manual) Lymphocytes % (Manual) Monocytes % (Manual) Seg Neutrophils # Seg Neutrophils # Man Monocytes # (Manual) PT INR POC ABG pO2 Sodium Potassium Chloride Carbon Dioxide BUN Creatinine Glucose POC Glucose 174 H 334 H 233 H Calcium Magnesium TIBC Ferritin Troponin T NT-Pro-B Natriuret Pep Albumin HDL Cholesterol Fluid Glucose Fluid Total Protein 02/26/19 02/26/19 02/26/19 05:23 05:23 07:34 WBC 24.3 H RBC 3.07 L Hgb 7.5 L Hct 24.2 L MCV MCH 25 L RDW 19.5 H Plt Count 603 H Lymph % (Auto) [place]er % (Auto) [place] # Baso # Seg Neutrophils % Seg Neuts % (Manual) Lymphocytes % (Manual) Monocytes % (Manual) Seg Neutrophils # Seg Neutrophils # Man Monocytes # (Manual) PT INR POC ABG pO2 Sodium 132 L Potassium Chloride Carbon Dioxide 20 L BUN 33 H Creatinine 1.3 H Glucose 165 H POC Glucose 177 H Calcium 8.2 L Magnesium TIBC Ferritin Troponin T NT-Pro-B Natriuret Pep Albumin HDL Cholesterol Fluid Glucose Fluid Total Protein 02/26/19 02/26/19 02/26/19 11:03 15:46 21:20 WBC RBC Hgb Hct MCV MCH RDW Plt Count Lymph % (Auto) [place]er % (Auto) [place] # Baso # Seg Neutrophils % Seg Neuts % (Manual) Lymphocytes % (Manual) Monocytes % (Manual) Seg Neutrophils # Seg Neutrophils # Man Monocytes # (Manual) PT INR POC ABG pO2 Sodium Potassium Chloride Carbon Dioxide BUN Creatinine Glucose POC Glucose 141 H 269 H 353 H Calcium Magnesium TIBC Ferritin Troponin T NT-Pro-B Natriuret Pep Albumin HDL Cholesterol Fluid Glucose Fluid Total Protein 02/27/19 02/27/19 02/27/19 03:56 08:17 12:02 WBC RBC Hgb Hct MCV MCH RDW Plt Count Lymph % (Auto) [place]er % (Auto) [place] # Baso # Seg Neutrophils % Seg Neuts % (Manual) Lymphocytes % (Manual) Monocytes % (Manual) Seg Neutrophils # Seg Neutrophils # Man Monocytes # (Manual) PT INR POC ABG pO2 Sodium 133 L Potassium Chloride 97.2 L Carbon Dioxide 21 L BUN 33 H Creatinine 1.5 H Glucose 170 H POC Glucose 136 H 163 H Calcium 8.0 L Magnesium TIBC Ferritin Troponin T NT-Pro-B Natriuret Pep Albumin HDL Cholesterol Fluid Glucose Fluid Total Protein 02/27/19 02/27/19 02/28/19 17:02 21:17 07:36 WBC RBC Hgb Hct MCV MCH RDW Plt Count Lymph % (Auto) [place]er % (Auto) [place] # Baso # Seg Neutrophils % Seg Neuts % (Manual) Lymphocytes % (Manual) Monocytes % (Manual) Seg Neutrophils # Seg Neutrophils # Man Monocytes # (Manual) PT INR POC ABG pO2 Sodium 132 L Potassium Chloride Carbon Dioxide 18 L BUN 33 H Creatinine Glucose 112 H POC Glucose 278 H 294 H Calcium 8.3 L Magnesium TIBC Ferritin Troponin T NT-Pro-B Natriuret Pep Albumin HDL Cholesterol Fluid Glucose Fluid Total Protein 02/28/19 02/28/19 07:36 08:16 WBC 22.5 H RBC 3.17 L Hgb 8.1 L Hct 25.1 L MCV MCH 26 L RDW 20.3 H Plt Count 575 H Lymph % (Auto) [place]er % (Auto) [place] # Baso # Seg Neutrophils % Seg Neuts % (Manual) Lymphocytes % (Manual) Monocytes % (Manual) Seg Neutrophils # Seg Neutrophils # Man Monocytes # (Manual) PT INR POC ABG pO2 Sodium Potassium Chloride Carbon Dioxide BUN Creatinine Glucose POC Glucose 117 H Calcium Magnesium TIBC Ferritin Troponin T NT-Pro-B Natriuret Pep Albumin HDL Cholesterol Fluid Glucose Fluid Total Protein
--- NOTE | 2019-02-28 10:59 | Consultation ---
REFERRING PHYSICIAN: Dr. Carey. REASON FOR CONSULTATION: Squamous cell CA. HISTORY OF PRESENT ILLNESS: I saw the patient, a 73-year-old female in the medical floor. The patient has a history of coronary artery disease, diabetes, hypertension, gout, quit smoking recently came to the hospital because of shortness of breath. She was recently admitted also and was found to have a large left pleural effusion and underwent thoracentesis on 02/19/2019 and also had undergone bronchoscopy on 02/11/2019. Pathology for thoracentesis done in early February showed left lung upper lobe brushing suspicious for squamous cell carcinoma. There is a plan for CT-guided biopsy. I have been asked to evaluate the patient. The patient had come to the hospital in mid-February with chest pain, shortness of breath, and hemoptysis. Some of her symptoms have been for about a month. No fever or chills. There is a history of loss of weight, has history of smoking for 45 years, is originally from [place] and moved here recently. At this time, the patient states that she is feeling fine. She is waiting for bronchoscopy. No headache, no visual disturbances. No ear discharge. At this time, no chest pain, no vomiting, no diarrhea. History of hemoptysis, shortness of breath, and chest pain at admission. PAST MEDICAL HISTORY: Anemia, diabetes, and hyperlipidemia. SOCIAL HISTORY: History of smoking, quit smoking recently. FAMILY HISTORY: Diabetes. ALLERGIES: IBUPROFEN, PENICILLIN. HOME MEDICATIONS: Included diabetes. MEDICATIONS: Allopurinol, aspirin, ferrous sulfate, losartan, HCTZ, metoprolol, atorvastatin. PHYSICAL EXAMINATION: VITAL SIGNS: Temperature 98, pulse 74, respirations 20, BP is 156/56. HEENT: Pallor present, no icterus. NECK: No neck lymph nodes. LUNGS: Clear to auscultation anteriorly. Decreased air entry in bases. HEART: S1, S2. ABDOMEN: Soft. EXTREMITIES: No calf tenderness. LABORATORY DATA: White cell 24, hemoglobin 7.5, MCV 79, platelets 603, potassium 4.1, creatinine 1.3, and calcium 8.2. RADIOLOGY: CT chest shows pleural effusion. CT chest on 02/09/2019 had shown no PE, left upper lobe consolidation/cavitation. Possibility of obstructing central lesion involving the left upper lobe. Bronchoscopy is considered. Pathology is atypical squamous cells. ASSESSMENT AND PLAN: 1. Possible squamous cell carcinoma in a patient with history of smoking, lung cavitation, pleural effusion. There is a plan for CT-guided biopsy. More tissue will help getting better marker testing for oral targeting medication usage. 2. History of chest pain, shortness of breath, hemoptysis. 3. Pleural effusion. 4. Heart failure. 5. Renal impairment. 6. Coronary artery disease. 7. Cardiomyopathy. 8. Hypertension. 9. Anemia. 10. Thrombocytosis. We will investigate for same and follow the patient. JOB# [id number] NM/NTS
[2019-02-28 12:15] LABS: Total Cells Counted 100
[2019-02-28 12:16] LABS: Eosinophils % (Manual) 0 % (0.0-4.3)
[2019-02-28 12:17] LABS: Anisocytosis 1+; Hypochromasia 1+; Platelet Estimate Consistent w Auto; Schistocytes Few; Target Cells 1+
--- NOTE | 2019-02-28 13:45 | Progress Note ---
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 Followed by Pulmonary. Need CT-guided lung biopsy for more tissue sampling /Left pleural effusion Thoracentesis done 02/[address] Carey that prelim path suggests squamous cell ca therfore CT biopsy lung FARAZ ordered CT guided lung biopsy now to be done on Friday / Acute hypoxic respiratory failure Possibly secondary to underlying pneumonia and malignancy, left pleural effusion and CHF exacerbation. She has been placed on BiPAP - now weaned off s/p thoracentesis on 02/19 drained 700cc fluid, 2-D echo showed EF of 30-35% Need assessment for home O2 requirement before discharge /Anemia Obtain stool occult blood consulted GI if stool occult blood positive /Acute on chronic systolic CHF We will continue patient on routine home medications. Will monitor daily weight monitor input and output. 2-D echo showed EF of 30-35%, we'll continue Lasix Cardiology following. Stress test done 02/23 abnormal. Was scheduled for cardiac cath but canceled because of anemia /NEELIMA, acute on CKD? This appears chronic. Will monitor BUN and creatinine, consulted nephrology, following /Physical debility, PT recommended acute rehab /DVT prophylaxis SCDs only for now because pending lung biopsy Full code status Follow clinically, discharge planning pending on CT-guided lung biopsy Brief History: 73-year-old female with known history of hypertension coronary artery disease diabetes mellitus who presents to the emergency room complaining of shortness of breath. She was just recently discharged from the hospital with similar symptoms, diagnosed with cavitary lesion in the left upper lobe was placed on antibiotics, was also ruled out for TB. She presents to the emergency room in respiratory distress. She was placed on BiPAP. Upon evaluation in the emergency room she was found to have findings consistent with moderate left pleural effusion - s/p thoracentesis. 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 Need CT-guided lung biopsy for more tissue sampling Hospitalist Physical exam: GENERAL: well-developed elderly AAF lying on bed appeared to be in no discomfo rt. HEENT: Normocephalic. Atraumatic. No conjunctival congestion or icterus. Patient has moist mucous membranes. NECK: Supple. Trachea midline. CHEST/LUNGS: BS auscultated bilaterally, breathing nonlabored. + Left sided rhonchi. HEART/CARDIOVASCULAR: Regular in rate and rhythm. S1 and S2 positive. ABDOMEN: Abdomen is soft, nontender. Patient has normal bowel sounds. SKIN: There is no rash. Warm and dry. NEURO: No focal motor deficit. Follows command. MUSCULOSKELETAL: No joint effusion or tenderness. EXTRIMITY: No edema, no cyanosis or clubbing. PSYCH: Cooperative. Subjective Date of service: 02/28/19 Principal diagnosis: Acute HFrEF, L pleural effusion, CMP, CAD, s/p PCI, NEELIMA, HTN, Lung CA Interval history: Patient seen and examined breathing improved but still SOB on exertion Denies any chest pain, tolerating diet Plan for CT-guided biopsy on Friday Objective - Constitutional Vitals: Vital Signs - 12hr 02/28/19 02/28/19 02/28/19 04:48 08:24 08:37 Temperature 98.5 F Pulse Rate 81 Pulse Rate [ 82 Apical] Respiratory 24 17 Rate Blood Pressure 177/80 O2 Sat by Pulse 92 92 Oximetry 02/28/19 02/28/19 10:48 10:52 Temperature Pulse Rate 83 83 Pulse Rate [ Apical] Respiratory Rate Blood Pressure 135/42 135/42 O2 Sat by Pulse Oximetry - Labs CBC & Chem 7: 03/01/19 06:41 03/01/19 06:41 Labs: Abnormal lab results 02/27/19 02/27/19 02/28/19 Range/Units 17:02 21:17 07:36 WBC (4.5-11.0) K/mm3 RBC (3.65-5.03) M/mm3 Hgb (10.1-14.3) gm/dl Hct (30.3-42.9) % MCH (28-32) pg RDW (13.2-15.2) % Plt Count (140-440) K/mm3 Seg Neuts % (Manual) (40.0-70.0) % Seg Neutrophils # Man (1.8-7.7) K/mm3 Basophils # (Manual) (0.0-0.1) K/mm3 Sodium 132 L (137-145) mmol/L Carbon Dioxide 18 L (22-30) mmol/L BUN 33 H (7-17) mg/dL Glucose 112 H (65-100) mg/dL POC Glucose 278 H 294 H (70-105) Calcium 8.3 L (8.4-10.2) mg/dL 02/28/19 02/28/19 02/28/19 Range/Units 07:36 08:16 12:08 WBC 22.5 H (4.5-11.0) K/mm3 RBC 3.17 L (3.65-5.03) M/mm3 Hgb 8.1 L (10.1-14.3) gm/dl Hct 25.1 L (30.3-42.9) % MCH 26 L (28-32) pg RDW 20.3 H (13.2-15.2) % Plt Count 575 H (140-440) K/mm3 Seg Neuts % (Manual) 75.0 H (40.0-70.0) % Seg Neutrophils # Man 16.9 H (1.8-7.7) K/mm3 Basophils # (Manual) 0.2 H (0.0-0.1) K/mm3 Sodium (137-145) mmol/L Carbon Dioxide (22-30) mmol/L BUN (7-17) mg/dL Glucose (65-100) mg/dL POC Glucose 117 H 225 H (70-105) Calcium (8.4-10.2) mg/dL
[2019-02-28] MEDS ORDERED: FUROSEMIDE 40 MG/4 ML INJ IV ONE (20:06)
[2019-03-01 07:48] LABS: Basophils # (Auto) 0.1 K/mm3 (0.0-0.1); Basophils % (Auto) 0.4 % (0.0-1.8); Eosinophils # (Auto) 0.1 K/mm3 (0.0-0.4); Eosinophils % (Auto) 0.7 % (0.0-4.3); Hematocrit 22.8 % (30.3-42.9); Hemoglobin 7.3 gm/dl (10.1-14.3); Lymphocytes # (Auto) 2.8 K/mm3 (1.2-5.4); Lymphocytes % (Auto) 13.9 % (13.4-35.0); Mean Corpuscular HGB Conc 32 % (30-34); Mean Corpuscular Volume 79 fl (79-97); Monocytes # (Auto) 1.9 K/mm3 (0.0-0.8); Monocytes % (Auto) 9.4 % (0.0-7.3); Platelet Count 521 K/mm3 (140-440)
--- NOTE | 2019-03-01 07:58 | Hem/Onc Progress Note ---
Assessment and Plan 1. Possible squamous cell carcinoma in a patient with history of smoking, lung cavitation, pleural effusion. There is a plan for CT-guided biopsy. More tissue will help getting better marker testing for oral targeting medication usage. 2. History of chest pain, shortness of breath, hemoptysis. 3. Pleural effusion. 4. Heart failure. 5. Renal impairment. 6. Coronary artery disease. 7. Cardiomyopathy. 8. Hypertension. 9. Anemia. 10. Thrombocytosis. We will investigate for same and follow the patient. dr driscoll called - bx postponed as pt was on ASA. she wanted the pt to be discharged with OP follow up - Patient Problems (1) Lung cancer Current Visit: Yes Status: Suspected Subjective Date of service: 03/01/19 Principal diagnosis: sq cell lung ca Interval history: due Ct guided bx Objective - Exam Narrative Exam: Pain - none General appearance - alert Performance status complete dependence Eyes - no icterus ENT - no bleeding LNs cervical not palpable Neck - no LN Respiratory Normal Breath sounds - CTA anteriorly CVS S1 S2 + Extremities no edema General GI Soft Rectal deferred female - deferred Skin warm Musculoskeletal - moving limbs Neurologically alert awake - Constitutional Vitals: Last Vital Signs Temp 98.1 F 03/01/19 07:57 Pulse 88 03/01/19 07:57 Resp 18 03/01/19 07:57 BP 167/64 03/01/19 07:57 Pulse Ox 100 03/01/19 07:57 - Labs Lab Results: Laboratory Results - last 24 hr 02/28/19 02/28/19 02/28/19 07:36 07:36 07:36 [place] % (Auto) Eos % (Auto) [place] # Eos # Baso # Add Manual Diff Complete Total Counted 100 Seg Neutrophils % Seg Neuts % (Manual) 75.0 H Band Neutrophils % 0 Lymphocytes % (Manual) 20.0 Reactive Lymphs % (Man) 0 Monocytes % (Manual) 3.0 Eosinophils % (Manual) 0 Basophils % (Manual) 1.0 Metamyelocytes % 1.0 Myelocytes % 0 Promyelocytes % 0 Blast Cells % 0 Nucleated RBC % Not Reportable Seg Neutrophils # Seg Neutrophils # Man 16.9 H Band Neutrophils # 0.0 Lymphocytes # (Manual) 4.5 Abs React Lymphs (Man) 0.0 Monocytes # (Manual) 0.7 Eosinophils # (Manual) 0.0 Basophils # (Manual) 0.2 H Metamyelocytes # 0.2 Myelocytes # 0.0 Promyelocytes # 0.0 Blast Cells # 0.0 WBC Morphology Not Reportable Hypersegmented Neuts Not Reportable Hyposegmented Neuts Not Reportable Hypogranular Neuts Not Reportable Smudge Cells Not Reportable Toxic Granulation Not Reportable Toxic Vacuolation Not Reportable Dohle Bodies Not Reportable Pelger-Huet Anomaly Not Reportable Jessica Rods Not Reportable Platelet Estimate Consistent w auto Clumped Platelets Not Reportable Plt Clumps, EDTA Not Reportable Large Platelets Not Reportable Giant Platelets Not Reportable Platelet Satelliting Not Reportable Plt Morphology Comment Not Reportable RBC Morphology Not Reportable Dimorphic RBCs Not Reportable Polychromasia Not Reportable Hypochromasia 1+ Poikilocytosis Not Reportable Anisocytosis 1+ Microcytosis Not Reportable Macrocytosis Not Reportable Spherocytes Not Reportable Pappenheimer Bodies Not Reportable Sickle Cells Not Reportable Target Cells 1+ Tear Drop Cells Not Reportable Ovalocytes Not Reportable Helmet Cells Not Reportable [place] Bodies Not Reportable Todd Rings Not Reportable [place] Cells Not Reportable Bite Cells Not Reportable Crenated Cell Not Reportable Elliptocytes Not Reportable Acanthocytes (Spur) Not Reportable Rouleaux Not Reportable Hemoglobin C Crystals Not Reportable Schistocytes Few Malaria parasites Not Reportable Galen Bodies Not Reportable Hem Pathologist Commnt No PT 13.3 INR 1.02 Sodium 132 L Potassium 4.0 Chloride 98.8 Carbon Dioxide 18 L Anion Gap 19 BUN 33 H Creatinine 1.2 Estimated GFR 53 BUN/Creatinine Ratio 28 Glucose 112 H POC Glucose Calcium 8.3 L 02/28/19 02/28/19 02/28/19 08:16 12:08 17:01 [place] % (Auto) Eos % (Auto) [place] # Eos # Baso # Add Manual Diff Total Counted Seg Neutrophils % Seg Neuts % (Manual) Band Neutrophils % Lymphocytes % (Manual) Reactive Lymphs % (Man) Monocytes % (Manual) Eosinophils % (Manual) Basophils % (Manual) Metamyelocytes % Myelocytes % Promyelocytes % Blast Cells % Nucleated RBC % Seg Neutrophils # Seg Neutrophils # Man Band Neutrophils # Lymphocytes # (Manual) Abs React Lymphs (Man) Monocytes # (Manual) Eosinophils # (Manual) Basophils # (Manual) Metamyelocytes # Myelocytes # Promyelocytes # Blast Cells # WBC Morphology Hypersegmented Neuts Hyposegmented Neuts Hypogranular Neuts Smudge Cells Toxic Granulation Toxic Vacuolation Dohle Bodies Pelger-Huet Anomaly Jessica Rods Platelet Estimate Clumped Platelets Plt Clumps, EDTA Large Platelets Giant Platelets Platelet Satelliting Plt Morphology Comment RBC Morphology Dimorphic RBCs Polychromasia Hypochromasia Poikilocytosis Anisocytosis Microcytosis Macrocytosis Spherocytes Pappenheimer Bodies Sickle Cells Target Cells Tear Drop Cells Ovalocytes Helmet Cells [place] Bodies Todd Rings Lora Cells Bite Cells Crenated Cell Elliptocytes Acanthocytes (Spur) Rouleaux Hemoglobin C Crystals Schistocytes Malaria parasites Galen Bodies Hem Pathologist Commnt PT INR Sodium Potassium Chloride Carbon Dioxide Anion Gap BUN Creatinine Estimated GFR BUN/Creatinine Ratio Glucose POC Glucose 117 H 225 H 276 H Calcium 02/28/19 03/01/19 03/01/19 20:54 06:41 06:41 [place] % (Auto) 9.4 H Eos % (Auto) 0.7 [place] # 1.9 H Eos # 0.1 Baso # 0.1 Add Manual Diff Total Counted Seg Neutrophils % 75.6 H Seg Neuts % (Manual) Band Neutrophils % Lymphocytes % (Manual) Reactive Lymphs % (Man) Monocytes % (Manual) Eosinophils % (Manual) Basophils % (Manual) Metamyelocytes % Myelocytes % Promyelocytes % Blast Cells % Nucleated RBC % Seg Neutrophils # 15.0 H Seg Neutrophils # Man Band Neutrophils # Lymphocytes # (Manual) Abs React Lymphs (Man) Monocytes # (Manual) Eosinophils # (Manual) Basophils # (Manual) Metamyelocytes # Myelocytes # Promyelocytes # Blast Cells # WBC Morphology Hypersegmented Neuts Hyposegmented Neuts Hypogranular Neuts Smudge Cells Toxic Granulation Toxic Vacuolation Dohle Bodies Pelger-Huet Anomaly Jessica Rods Platelet Estimate Clumped Platelets Plt Clumps, EDTA Large Platelets Giant Platelets Platelet Satelliting Plt Morphology Comment RBC Morphology Dimorphic RBCs Polychromasia Hypochromasia Poikilocytosis Anisocytosis Microcytosis Macrocytosis Spherocytes Pappenheimer Bodies Sickle Cells Target Cells Tear Drop Cells Ovalocytes Helmet Cells [place] Bodies Todd Rings [place] Cells Bite Cells Crenated Cell Elliptocytes Acanthocytes (Spur) Rouleaux Hemoglobin C Crystals Schistocytes Malaria parasites Galen Bodies Hem Pathologist Commnt PT 13.1 INR 1.00 Sodium Potassium Chloride Carbon Dioxide Anion Gap BUN Creatinine Estimated GFR BUN/Creatinine Ratio Glucose POC Glucose 270 H Calcium Medications & Allergies - Medications Allergies/Adverse Reactions: Allergies ibuprofen Allergy (Verified 02/18/19 23:29) Unknown Penicillins Allergy (Verified 02/18/19 23:29) Unknown Home Medications: Home Medications Medication Instructions Recorded Confirmed Last Taken Type Allopurinol 100 mg PO DAILY 12/26/18 02/19/19 Unknown History Cilostazol 100 mg PO BID 12/26/18 02/19/19 Unknown History Ferrous Sulfate 325 mg PO DAILY 12/26/18 02/19/19 Unknown History Ipratropium (Nf) [Atrovent HFA 2 puff IH Q6HR PRN #1 inha 01/11/19 02/19/19 Unknown Rx 17MCG/PUFF] AtorvaSTATin [Lipitor] 40 mg PO QHS 02/09/19 02/19/19 Unknown History Pantoprazole [Protonix TAB] 40 mg PO QDAY #30 tablet 02/16/19 02/19/19 Unknown Rx hydrALAZINE [Apresoline TAB] 25 mg PO Q8HR #90 tablet 02/16/19 02/19/19 Unknown Rx Furosemide [Lasix TAB] 20 mg PO QDAY tablet 03/01/19 Unknown Rx ISOSORBIDE MONOnitrate [Imdur ER] 120 mg PO QDAY tablet 03/01/19 Unknown Rx Insulin NPH/Regular [NovoLIN 70/30] 10 unit SUB-Q BIDDIAB units 03/01/19 Unknown Rx Insulin Regular, Human [HumuLIN R] 0 units SUB-Q ACHS units 03/01/19 Unknown Rx Metoprolol [Lopressor TAB] 50 mg PO BID tablet 03/01/19 Unknown Rx Active Medications: Generic Name Dose Route Start Last Admin Trade Name Freq PRN Reason Stop Dose Admin Acetaminophen 650 mg 02/20/19 17:19 02/28/19 06:07 Tylenol PO 650 mg Q6H PRN Administration Pain, Mild (1-3) Albuterol 2.5 mg 02/20/19 23:45 02/26/19 14:06 Proventil IH 2.5 mg Q3HRT PRN Administration Shortness Of Breath Allopurinol 100 mg 02/21/19 12:15 02/28/19 10:48 Zyloprim PO 100 mg QDAY MAYLIN Administration Aspirin 325 mg 02/23/19 10:00 02/28/19 10:46 Ecotrin PO 325 mg QDAY MAYLIN Administration Atorvastatin Calcium 40 mg 02/21/19 22:00 02/28/19 21:47 Lipitor PO 40 mg QHS MAYLIN Administration Cilostazol 100 mg 02/21/19 22:00 02/28/19 21:47 Pletal PO 100 mg BID MAYLIN Administration Dextrose 0 ml 02/19/19 03:08 D50w (25gm) Syringe IV Q30MIN PRN Hypoglycemia Protocol Ferrous Sulfate 325 mg 02/22/19 10:00 02/28/19 10:46 Feosol PO 325 mg QDAY MAYLIN Administration Furosemide 20 mg 02/27/19 10:00 02/28/19 10:47 Lasix PO 20 mg QDAY MAYLIN Administration Hydralazine HCl 100 mg 02/28/19 10:00 02/28/19 21:47 Apresoline PO 100 mg BID MAYLIN Administration Insulin Human Isoph/Insulin Regular 10 unit 02/25/19 08:00 02/28/19 17:21 Humulin 70/30 SUB-Q 10 unit BIDDIAB MAYLIN Administration Insulin Human Regular 0 units 02/19/19 07:30 02/28/19 21:48 Humulin R SUB-Q 4 units ACHS MAYLIN Administration Protocol Isosorbide Mononitrate 120 mg 02/28/19 07:47 02/28/19 10:52 Imdur PO 120 mg QDAY MAYLIN Administration Magnesium Hydroxide 30 ml 02/19/19 03:08 Milk Of Magnesia PO Q4H PRN Constipation Magnesium Oxide 400 mg 02/23/19 11:00 02/28/19 21:47 Mag-Ox PO 400 mg BID MAYLIN Administration Methylprednisolone Sodium Succinate 40 mg 02/22/19 10:00 02/28/19 10:46 Solu-Medrol IV 40 mg Q24HR MAYLIN Administration Metoprolol Tartrate 50 mg 02/21/19 22:00 02/28/19 21:47 Metoprolol PO 50 mg BID MAYLIN Administration Morphine Sulfate 2 mg 02/19/19 03:08 02/21/19 03:33 Morphine IV 2 mg Q4H PRN Administration Pain, Moderate (4-6) Pantoprazole Sodium 40 mg 02/22/19 10:00 02/28/19 10:46 Protonix PO 40 mg QDAY MAYLIN Administration Sodium Chloride 10 ml 02/19/19 10:00 02/28/19 21:49 Sodium Chloride Flush Syringe 10 Ml IV 10 ml BID MAYLIN Administration Sodium Chloride 10 ml 02/19/19 03:08 Sodium Chloride Flush Syringe 10 Ml IV PRN PRN LINE FLUSH
[2019-03-01] MEDS: ACETAMINOPHEN 325 MG TAB PO PRN (08:03)
[2019-03-01] MEDS: INSULIN REGULAR, HUMAN 100 UNITS/1 ML SUB-Q SCH ×4 (08:03→22:41)
[2019-03-01] MEDS: INSULIN NPH/REGULAR 70/30 INJ SUB-Q SCH ×2 (08:03→17:46)
[2019-03-01 08:08] LABS: Red Cell Distribution Width 20.8 % (13.2-15.2)
[2019-03-01 08:28] LABS: Calcium 8.5 mg/dL (8.4-10.2)
--- NOTE | 2019-03-01 09:23 | Progress Note ---
Assessment and Plan 1. Acute kidney injury: Mild NEELIMA superimposed on CKD stage 3, suspect vasomotor insult. Overall renal function is stable with some fluctuation. Monitor renal function. Avoid nephrotoxic agents. Meds dosage based on GFR. 2. FEN: Hyperkalemia, improved. Metabolic acidosis, monitor. Monitor lytes. 3. Acute hypoxic respiratory failure: Possibly secondary to underlying pneumonia, left pleural effusion and CHF exacerbation. 4. Left lung cavitating lung lesion and L pleural effusion: S/p thoracentesis. 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 Followed by Pulmonary. 5. Decompensated CHF: Continue Lasix. 6. CAD: Followed by Cards. 7. DM-2. 8. Hypertension: Monitor BP. 9. Anemia: POA. Followed by GI. Examination: General appearance: well-developed, well-nourished, appears stated age, no distress HEENT: ATNC, SKYE, mucous membranes moist, hearing intact, vision intact Neck: neck supple, trachea midline Respiratory: ctab Heart: regular, S1S2, no murmurs Gastrointestinal: normoactive bowel sounds, not tender Integumentary: no rash, warm and dry Neurologic: no focal deficit, no asterixis Ext: trace LE edema noted Subjective Date of service: 03/01/19 Principal diagnosis: sq cell lung ca Interval history: Patient was seen and examined at the bedside. Doing ok. Objective - Vital Signs Vital signs: Vital Signs - 12hr 02/28/19 02/28/19 02/28/19 21:47 21:52 22:00 Temperature Pulse Rate 75 71 Respiratory 20 Rate Blood Pressure 160/66 O2 Sat by Pulse 99 Oximetry 03/01/19 03/01/19 03/01/19 00:26 04:38 07:57 Temperature 96.6 F L 98.8 F 98.1 F Pulse Rate 70 73 88 Respiratory 16 20 18 Rate Blood Pressure 147/61 146/59 167/64 O2 Sat by Pulse 100 100 100 Oximetry 03/01/19 03/01/19 08:17 08:33 Temperature Pulse Rate Respiratory 22 Rate Blood Pressure O2 Sat by Pulse 96 Oximetry - Lab 03/01/19 06:41 03/01/19 06:41 Most recent lab results Calcium 8.5 mg/dL (8.4-10.2) 03/01/19 06:41 Phosphorus 2.70 mg/dL (2.5-4.5) 02/23/19 06:26 Magnesium 1.70 mg/dL (1.7-2.3) 02/26/19 05:23 Medications & Allergies - Medications Allergies/Adverse Reactions: Allergies ibuprofen Allergy (Verified 02/18/19 23:29) Unknown Penicillins Allergy (Verified 02/18/19 23:29) Unknown Home Medications: Home Medications Medication Instructions Recorded Confirmed Last Taken Type Allopurinol 100 mg PO DAILY 12/26/18 02/19/19 Unknown History Aspirin 325 mg PO DAILY 12/26/18 02/19/19 Unknown History Cilostazol 100 mg PO BID 12/26/18 02/19/19 Unknown History Ferrous Sulfate 325 mg PO DAILY 12/26/18 02/19/19 Unknown History Metoprolol Tartrate 50 mg PO BID #60 12/29/18 02/19/19 Unknown Rx Ipratropium (Nf) [Atrovent HFA 2 puff IH Q6HR PRN #1 inha 01/11/19 02/19/19 Unknown Rx 17MCG/PUFF] Acetaminophen/Codeine [Tylenol 1 tab PO Q6H PRN #12 tab 01/21/19 02/19/19 Unknown Rx /Codeine # 3 tab] AtorvaSTATin [Lipitor] 40 mg PO QHS 02/09/19 02/19/19 Unknown History Pantoprazole [Protonix TAB] 40 mg PO QDAY #30 tablet 02/16/19 02/19/19 Unknown Rx cefUROXime [Ceftin] 500 mg PO Q12H 21 Days tablet 02/16/19 02/19/19 Unknown Rx glipiZIDE [Glucotrol] 5 mg PO BID #60 tablet 02/16/19 02/19/19 Unknown Rx hydrALAZINE [Apresoline TAB] 25 mg PO Q8HR #90 tablet 02/16/19 02/19/19 Unknown Rx metroNIDAZOLE [Flagyl] 500 mg PO Q8HR 21 Days 02/16/19 02/19/19 Unknown Rx Active Medications: Generic Name Dose Route Start Last Admin Trade Name Freq PRN Reason Stop Dose Admin Acetaminophen 650 mg 02/20/19 17:19 03/01/19 08:03 Tylenol PO 650 mg Q6H PRN Administration Pain, Mild (1-3) Albuterol 2.5 mg 02/20/19 23:45 02/26/19 14:06 Proventil IH 2.5 mg Q3HRT PRN Administration Shortness Of Breath Allopurinol 100 mg 02/21/19 12:15 02/28/19 10:48 Zyloprim PO 100 mg QDAY MAYLIN Administration Aspirin 325 mg 02/23/19 10:00 02/28/19 10:46 Ecotrin PO 325 mg QDAY MAYLIN Administration Atorvastatin Calcium 40 mg 02/21/19 22:00 02/28/19 21:47 Lipitor PO 40 mg QHS MAYLIN Administration Cilostazol 100 mg 02/21/19 22:00 02/28/19 21:47 Pletal PO 100 mg BID MAYLIN Administration Dextrose 0 ml 02/19/19 03:08 D50w (25gm) Syringe IV Q30MIN PRN Hypoglycemia Protocol Ferrous Sulfate 325 mg 02/22/19 10:00 02/28/19 10:46 Feosol PO 325 mg QDAY MAYLIN Administration Furosemide 20 mg 02/27/19 10:00 02/28/19 10:47 Lasix PO 20 mg QDAY MAYLIN Administration Hydralazine HCl 100 mg 02/28/19 10:00 02/28/19 21:47 Apresoline PO 100 mg BID MAYLIN Administration Insulin Human Isoph/Insulin Regular 10 unit 02/25/19 08:00 03/01/19 08:03 Humulin 70/30 SUB-Q Not Given BIDDIAB MAYLIN Insulin Human Regular 0 units 02/19/19 07:30 03/01/19 08:03 Humulin R SUB-Q Not Given ACHS [facility] Protocol Isosorbide Mononitrate 120 mg 02/28/19 07:47 02/28/19 10:52 Imdur PO 120 mg QDAY MAYLIN Administration Magnesium Hydroxide 30 ml 02/19/19 03:08 Milk Of Magnesia PO Q4H PRN Constipation Magnesium Oxide 400 mg 02/23/19 11:00 02/28/19 21:47 Mag-Ox PO 400 mg BID MAYLIN Administration Methylprednisolone Sodium Succinate 40 mg 02/22/19 10:00 02/28/19 10:46 Solu-Medrol IV 40 mg Q24HR MAYLIN Administration Metoprolol Tartrate 50 mg 02/21/19 22:00 02/28/19 21:47 Metoprolol PO 50 mg BID MAYLIN Administration Morphine Sulfate 2 mg 02/19/19 03:08 02/21/19 03:33 Morphine IV 2 mg Q4H PRN Administration Pain, Moderate (4-6) Pantoprazole Sodium 40 mg 02/22/19 10:00 02/28/19 10:46 Protonix PO 40 mg QDAY MAYLIN Administration Sodium Chloride 10 ml 02/19/19 10:00 02/28/19 21:49 Sodium Chloride Flush Syringe 10 Ml IV 10 ml BID MAYLIN Administration Sodium Chloride 10 ml 02/19/19 03:08 Sodium Chloride Flush Syringe 10 Ml IV PRN PRN LINE FLUSH
[2019-03-01] MEDS: hydrALAZINE 25 MG TAB PO SCH ×2 (10:30→22:40)
[2019-03-01] MEDS: FERROUS SULFATE 325 MG TAB PO SCH (10:30)
[2019-03-01] MEDS: CILOSTAZOL 100 MG TAB PO SCH ×2 (10:30→22:39)
[2019-03-01] MEDS: methylPREDNISolone Sod Succinate 40 MG/1 ML INJ IV SCH (10:31)
[2019-03-01] MEDS: FUROSEMIDE 40 MG TAB PO SCH (10:31)
[2019-03-01] MEDS: MAGNESIUM OXIDE 400 MG TAB PO SCH ×2 (10:31→22:39)
[2019-03-01] MEDS: allopurinoL 100 MG TAB PO SCH (10:31)
[2019-03-01] MEDS: METOPROLOL TARTRATE 50 MG TAB PO SCH ×2 (10:31→22:40)
[2019-03-01] MEDS: PANTOPRAZOLE 40 MG TAB PO SCH (10:31)
[2019-03-01] MEDS: ASPIRIN EC 325 MG TAB PO SCH (10:35)
--- NOTE | 2019-03-01 11:41 | Gastroenterology Progress Note ---
Assessment and Plan 1.anemia -iron WNL -H/H stable-continue to monitor/transfuse as needed -appears chronic (similar to labs in December) without overt gi bleeding -will hold off on gi work-up for anemia at this time while under going work-up for suspected lung cancer in the absence of gi bleeding (will proceed with EGD/colonoscopy if recommended per oncology based on treatment plan for lung cancer; can be done prior to d/c or as outpatient) -will sign off for now, please call back if needed/recommended per oncology Subjective Date of service: 03/01/19 Principal diagnosis: anemia Interval history: No active signs of bleeding or GI complaints. Objective - Constitutional Vitals: Temp Pulse Resp BP Pulse Ox 98.1 F 88 22 167/64 96 03/01/19 07:57 03/01/19 07:57 03/01/19 08:17 03/01/19 07:57 03/01/19 08:33 General appearance: no acute distress - EENT Eyes: PERRL, EOM intact ENT: hearing intact - Respiratory Respiratory: bilateral: diminished - Cardiovascular Rhythm: regular - Gastrointestinal General gastrointestinal: Present: soft, non-tender, non-distended, normal bowel sounds - Neurologic Neurological: alert and oriented x3 - Labs CBC & Chem 7: 03/01/19 06:41 03/01/19 06:41 Labs: Laboratory Results - last 24 hr 02/28/19 02/28/19 02/28/19 07:36 12:08 17:01 WBC RBC Hgb Hct MCV MCH MCHC RDW Plt Count Lymph % (Auto) Leon % (Auto) Eos % (Auto) Baso % (Auto) Lymph # Leon # Eos # Baso # Add Manual Diff Complete Total Counted 100 Seg Neutrophils % Seg Neuts % (Manual) 75.0 H Band Neutrophils % 0 Lymphocytes % (Manual) 20.0 Reactive Lymphs % (Man) 0 Monocytes % (Manual) 3.0 Eosinophils % (Manual) 0 Basophils % (Manual) 1.0 Metamyelocytes % 1.0 Myelocytes % 0 Promyelocytes % 0 Blast Cells % 0 Nucleated RBC % Not Reportable Seg Neutrophils # Seg Neutrophils # Man 16.9 H Band Neutrophils # 0.0 Lymphocytes # (Manual) 4.5 Abs React Lymphs (Man) 0.0 Monocytes # (Manual) 0.7 Eosinophils # (Manual) 0.0 Basophils # (Manual) 0.2 H Metamyelocytes # 0.2 Myelocytes # 0.0 Promyelocytes # 0.0 Blast Cells # 0.0 WBC Morphology Not Reportable Hypersegmented Neuts Not Reportable Hyposegmented Neuts Not Reportable Hypogranular Neuts Not Reportable Smudge Cells Not Reportable Toxic Granulation Not Reportable Toxic Vacuolation Not Reportable Dohle Bodies Not Reportable Pelger-Huet Anomaly Not Reportable Jessica Rods Not Reportable Platelet Estimate Consistent w auto Clumped Platelets Not Reportable Plt Clumps, EDTA Not Reportable Large Platelets Not Reportable Giant Platelets Not Reportable Platelet Satelliting Not Reportable Plt Morphology Comment Not Reportable RBC Morphology Not Reportable Dimorphic RBCs Not Reportable Polychromasia Not Reportable Hypochromasia 1+ Poikilocytosis Not Reportable Anisocytosis 1+ Microcytosis Not Reportable Macrocytosis Not Reportable Spherocytes Not Reportable Pappenheimer Bodies Not Reportable Sickle Cells Not Reportable Target Cells 1+ Tear Drop Cells Not Reportable Ovalocytes Not Reportable Helmet Cells Not Reportable [place] Bodies Not Reportable [place] Rings Not Reportable Cedar Cells Not Reportable Bite Cells Not Reportable Crenated Cell Not Reportable Elliptocytes Not Reportable Acanthocytes (Spur) Not Reportable Rouleaux Not Reportable Hemoglobin C Crystals Not Reportable Schistocytes Few Malaria parasites Not Reportable [place] Bodies Not Reportable Hem Pathologist Commnt No PT INR Sodium Potassium Chloride Carbon Dioxide Anion Gap BUN Creatinine Estimated GFR BUN/Creatinine Ratio Glucose POC Glucose 225 H 276 H Calcium Vitamin B12 Folate 02/28/19 03/01/19 03/01/19 20:54 06:41 06:41 WBC 19.9 H RBC 2.90 L Hgb 7.3 L Hct 22.8 L MCV 79 MCH 25 L MCHC 32 RDW 20.8 H Plt Count 521 H Lymph % (Auto) 13.9 Leon % (Auto) 9.4 H Eos % (Auto) 0.7 Baso % (Auto) 0.4 Lymph # 2.8 Leon # 1.9 H Eos # 0.1 Baso # 0.1 Add Manual Diff Total Counted Seg Neutrophils % 75.6 H Seg Neuts % (Manual) Band Neutrophils % Lymphocytes % (Manual) Reactive Lymphs % (Man) Monocytes % (Manual) Eosinophils % (Manual) Basophils % (Manual) Metamyelocytes % Myelocytes % Promyelocytes % Blast Cells % Nucleated RBC % Seg Neutrophils # 15.0 H Seg Neutrophils # Man Band Neutrophils # Lymphocytes # (Manual) Abs React Lymphs (Man) Monocytes # (Manual) Eosinophils # (Manual) Basophils # (Manual) Metamyelocytes # Myelocytes # Promyelocytes # Blast Cells # WBC Morphology Hypersegmented Neuts Hyposegmented Neuts Hypogranular Neuts Smudge Cells Toxic Granulation Toxic Vacuolation Dohle Bodies Pelger-Huet Anomaly Jessica Rods Platelet Estimate Clumped Platelets Plt Clumps, EDTA Large Platelets Giant Platelets Platelet Satelliting Plt Morphology Comment RBC Morphology Dimorphic RBCs Polychromasia Hypochromasia Poikilocytosis Anisocytosis Microcytosis Macrocytosis Spherocytes Pappenheimer Bodies Sickle Cells Target Cells Tear Drop Cells Ovalocytes Helmet Cells [place] Bodies [place] Rings Cedar Cells Bite Cells Crenated Cell Elliptocytes Acanthocytes (Spur) Rouleaux Hemoglobin C Crystals Schistocytes Malaria parasites [place] Bodies Hem Pathologist Commnt PT 13.1 INR 1.00 Sodium Potassium Chloride Carbon Dioxide Anion Gap BUN Creatinine Estimated GFR BUN/Creatinine Ratio Glucose POC Glucose 270 H Calcium Vitamin B12 Folate 03/01/19 03/01/19 03/01/19 06:41 08:04 09:27 WBC RBC Hgb Hct MCV MCH MCHC RDW Plt Count Lymph % (Auto) Leon % (Auto) Eos % (Auto) Baso % (Auto) Lymph # Leon # Eos # Baso # Add Manual Diff Total Counted Seg Neutrophils % Seg Neuts % (Manual) Band Neutrophils % Lymphocytes % (Manual) Reactive Lymphs % (Man) Monocytes % (Manual) Eosinophils % (Manual) Basophils % (Manual) Metamyelocytes % Myelocytes % Promyelocytes % Blast Cells % Nucleated RBC % Seg Neutrophils # Seg Neutrophils # Man Band Neutrophils # Lymphocytes # (Manual) Abs React Lymphs (Man) Monocytes # (Manual) Eosinophils # (Manual) Basophils # (Manual) Metamyelocytes # Myelocytes # Promyelocytes # Blast Cells # WBC Morphology Hypersegmented Neuts Hyposegmented Neuts Hypogranular Neuts Smudge Cells Toxic Granulation Toxic Vacuolation Dohle Bodies Pelger-Huet Anomaly Jessica Rods Platelet Estimate Clumped Platelets Plt Clumps, EDTA Large Platelets Giant Platelets Platelet Satelliting Plt Morphology Comment RBC Morphology Dimorphic RBCs Polychromasia Hypochromasia Poikilocytosis Anisocytosis Microcytosis Macrocytosis Spherocytes Pappenheimer Bodies Sickle Cells Target Cells Tear Drop Cells Ovalocytes Helmet Cells [place] Bodies [place] Rings Cedar Cells Bite Cells Crenated Cell Elliptocytes Acanthocytes (Spur) Rouleaux Hemoglobin C Crystals Schistocytes Malaria parasites Gal[place] Bodies Hem Pathologist Commnt PT INR Sodium 137 Potassium 4.2 Chloride 101.2 Carbon Dioxide 20 L Anion Gap 20 BUN 35 H Creatinine 1.4 H Estimated GFR 44 BUN/Creatinine Ratio 25 Glucose 80 POC Glucose 91 Calcium 8.5 Vitamin B12 760.9 Folate 03/01/19 09:27 WBC RBC Hgb Hct MCV MCH MCHC RDW Plt Count Lymph % (Auto) Leon % (Auto) Eos % (Auto) Baso % (Auto) Lymph # Leon # Eos # Baso # Add Manual Diff Total Counted Seg Neutrophils % Seg Neuts % (Manual) Band Neutrophils % Lymphocytes % (Manual) Reactive Lymphs % (Man) Monocytes % (Manual) Eosinophils % (Manual) Basophils % (Manual) Metamyelocytes % Myelocytes % Promyelocytes % Blast Cells % Nucleated RBC % Seg Neutrophils # Seg Neutrophils # Man Band Neutrophils # Lymphocytes # (Manual) Abs React Lymphs (Man) Monocytes # (Manual) Eosinophils # (Manual) Basophils # (Manual) Metamyelocytes # Myelocytes # Promyelocytes # Blast Cells # WBC Morphology Hypersegmented Neuts Hyposegmented Neuts Hypogranular Neuts Smudge Cells Toxic Granulation Toxic Vacuolation Dohle Bodies Pelger-Huet Anomaly Jessica Rods Platelet Estimate Clumped Platelets Plt Clumps, EDTA Large Platelets Giant Platelets Platelet Satelliting Plt Morphology Comment RBC Morphology Dimorphic RBCs Polychromasia Hypochromasia Poikilocytosis Anisocytosis Microcytosis Macrocytosis Spherocytes Pappenheimer Bodies Sickle Cells Target Cells Tear Drop Cells Ovalocytes Helmet Cells [place] Bodies [place] Rings Lora Cells Bite Cells Crenated Cell Elliptocytes Acanthocytes (Spur) Rouleaux Hemoglobin C Crystals Schistocytes Malaria parasites Galen Bodies Hem Pathologist Commnt PT INR Sodium Potassium Chloride Carbon Dioxide Anion Gap BUN Creatinine Estimated GFR BUN/Creatinine Ratio Glucose POC Glucose Calcium Vitamin B12 Folate 5.97 L
--- NOTE | 2019-03-01 13:01 | Progress Note ---
Assessment and Plan Currently stable cardiac status. Cont present cardiac management. Patient awaiting biopsy of left upper lobe lesion today. The patient has been seen in conjunction with Dr. Neely who agrees with the assessment and plan of care. - Patient Problems (1) Acute respiratory distress Current Visit: Yes Status: Acute (2) Pneumonia Current Visit: Yes Status: Suspected Qualifiers: Pneumonia type: due to unspecified organism Laterality: left Lung location: lower lobe of lung Qualified Code(s): J18.9 - Pneumonia, unspecified organism (3) Pleural effusion Current Visit: Yes Status: Acute (4) Chest pain Current Visit: Yes Status: Acute (5) Acute HFrEF (heart failure with reduced ejection fraction) Current Visit: Yes Status: Acute (6) Cardiomyopathy Current Visit: Yes Status: Chronic (7) CAD (coronary artery disease) Current Visit: Yes Status: Chronic Qualifiers: Coronary Disease-Associated Artery/Lesion type: [place] artery (8) Stented coronary artery Current Visit: Yes Status: Chronic (9) HTN (hypertension) Current Visit: Yes Status: Chronic Qualifiers: Hypertension type: essential hypertension Qualified Code(s): I10 - Essential (primary) hypertension (10) Diabetes Current Visit: Yes Status: Chronic (11) Renal insufficiency Current Visit: Yes Status: Acute (12) Anemia Current Visit: Yes Status: Acute (13) Polycythemia Current Visit: Yes Status: Acute (14) Former tobacco use Current Visit: Yes Status: Chronic (15) NSTEMI (non-ST elevated myocardial infarction) Current Visit: Yes Status: Acute Plan to address problem: type II (16) Abnormal stress test Current Visit: Yes Status: Acute (17) Lung cancer Current Visit: Yes Status: Suspected Subjective Date of service: 03/01/19 Principal diagnosis: anemia Interval history: resting in bed, no current complaints. in SR. Objective Vital Signs Temp Pulse Resp BP Pulse Ox 03/01/19 08:33 96 03/01/19 08:17 22 03/01/19 07:57 98.1 F 88 18 167/64 100 03/01/19 04:38 98.8 F 73 20 146/59 100 03/01/19 00:26 96.6 F L 70 16 147/61 100 02/28/19 22:00 71 20 02/28/19 21:52 99 02/28/19 21:47 75 160/66 02/28/19 20:55 98.6 F 71 20 160/66 99 02/28/19 16:41 98.0 F 70 18 155/66 81 L - Physical Examination General: No Apparent Distress HEENT: Positive: EOMI, Normocephaly, Mucus Membranes Moist Neck: Positive: neck supple, trachea midline Neuro: Positive: Grossly Intact Abdomen: Positive: Soft, Active Bowel Sounds. Negative: Tender Skin: Positive: Clear. Negative: Rash Musculoskeletal: Normal Range of Motion Extremities: Present: edema (trace pitting bilateral edema) - Labs and Meds Coagulation 03/01/19 Range/Units 06:41 PT 13.1 (12.2-14.9) Sec. INR 1.00 (0.87-1.13) CBC 03/01/19 Range/Units 06:41 WBC 19.9 H (4.5-11.0) K/mm3 RBC 2.90 L (3.65-5.03) M/mm3 Hgb 7.3 L (10.1-14.3) gm/dl Hct 22.8 L (30.3-42.9) % Plt Count 521 H (140-440) K/mm3 Lymph # 2.8 (1.2-5.4) K/mm3 [place] # 1.9 H (0.0-0.8) K/mm3 Eos # 0.1 (0.0-0.4) K/mm3 Baso # 0.1 (0.0-0.1) K/mm3 Comprehensive Metabolic Panel 03/01/19 Range/Units 06:41 Sodium 137 (137-145) mmol/L Potassium 4.2 (3.6-5.0) mmol/L Chloride 101.2 (98-107) mmol/L Carbon Dioxide 20 L (22-30) mmol/L BUN 35 H (7-17) mg/dL Creatinine 1.4 H (0.7-1.2) mg/dL Glucose 80 (65-100) mg/dL Calcium 8.5 (8.4-10.2) mg/dL - Imaging and Cardiology EKG: image reviewed Echo: report reviewed (02/19/2019 showed EF 30-35%, impaired relaxation, mild MR and TR, RVSP 46mmHg, basal anterior, mid anterior and apical anterior wall segments hypokinetic, mid inferoseptal and apical septal wall segments akinetic. ) - EKG Sinus rhythms and dysrhythmias: sinus rhythm Myocardial infarction: anterior NM (old age or i
--- NOTE | 2019-03-01 14:32 | Discharge Summary ---
Providers - Providers Date of Admission: 02/19/19 01:41 Date of discharge: 03/01/19 Attending physician: ZULEIMA HORNE 02/19/19 03:09 Consult to Dietitian/Nutrition [CONS] Routine Physician Instructions: Reason For Exam: Reason for Consult: Diet education 02/19/19 08:49 Consult to Physician [CONS] Routine Comment: Consulting Provider: SHERYL CAREY Physician Instructions: Reason For Exam: respiratory failure 02/21/19 11:30 Consult to Physician [CONS] Routine Comment: Consulting Provider: DUANE MIGUEL Physician Instructions: Reason For Exam: NEELIMA and hyperkalemia 02/21/19 13:57 Consult to Physician [CONS] Routine Comment: Consulting Provider: PATRICK JARVIS Physician Instructions: Reason For Exam: CHf exacerbation Physical Therapy Evaluation and Treat [CONS] Routine Comment: Reason For Exam: placement 02/25/19 07:23 Consult to Physician [CONS] Routine Comment: Consulting Provider: PASCUAL GARCIA Physician Instructions: Reason For Exam: Anemia 02/27/19 16:13 Consult to Physician [CONS] Routine Comment: Consulting Provider: KAPIL FRANCO Physician Instructions: Reason For Exam: lung cancer Hospitalization Condition: Serious Hospital course: Discharge diagnosis: /Left lung cavitating lung lesion and L pleural effusion: The patient also been treated for cavitary pneumonia Pleural fluid 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 Followed by Pulmonary. Need CT-guided lung biopsy for more tissue sampling - will be done as outpt /Left pleural effusion Thoracentesis done 02/[address] Carey that prelim path suggests squamous cell ca therfore CT biopsy lung FARAZ ordered CT guided lung biopsy now planned for outpt when respiratory status improves and CHF stable / Acute hypoxic respiratory failure Possibly secondary to underlying pneumonia and malignancy, left pleural effusion and CHF exacerbation. She has been placed on BiPAP - now weaned off s/p thoracentesis on 02/19 drained 700cc fluid, 2-D echo showed EF of 30-35% Need assessment for home O2 requirement before discharge /Anemia Obtain stool occult blood consulted GI if stool occult blood positive /Acute on chronic systolic CHF We will continue patient on routine home medications. Will monitor daily weight monitor input and output. 2-D echo showed EF of 30-35%, we'll continue [facility] following. Stress test done 02/23 abnormal. Was scheduled for cardiac cath but canceled because of anemia /NEELIMA, acute on CKD? This appears chronic. Will monitor BUN and creatinine, consulted nephrology, f ollowing /Physical debility, PT recommended acute rehab /DVT prophylaxis SCDs only for now because pending lung biopsy Full code status Follow clinically, discharge planning pending on CT-guided lung biopsy Brief History: 73-year-old female with known history of hypertension coronary artery disease diabetes mellitus who presents to the emergency room complaining of shortness of breath. She was just recently discharged from the hospital with similar symptoms, diagnosed with cavitary lesion in the left upper lobe was placed on antibiotics, was also ruled out for TB. She presents to the emergency room in respiratory distress. She was placed on BiPAP. Upon evaluation in the emergency room she was found to have findings consistent with moderate left pleural effu lawrence - s/p thoracentesis. 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 Need CT-guided lung biopsy for more tissue sampling as outpt - discussed with Dr Franco Hospitalist Physical exam: GENERAL: well-developed elderly AAF lying on bed appeared to be in no discomfort. HEENT: Normocephalic. Atraumatic. No conjunctival congestion or icterus. Patient has moist mucous membranes. NECK: Supple. Trachea midline. CHEST/LUNGS: BS auscultated bilaterally, breathing nonlabored. + Left sided rhonchi. HEART/CARDIOVASCULAR: Regular in rate and rhythm. S1 and S2 positive. ABDOMEN: Abdomen is soft, nontender. Patient has normal bowel sounds. SKIN: There is no rash. Warm and dry. NEURO: No focal motor deficit. Follows command. MUSCULOSKELETAL: No joint effusion or tenderness. EXTRIMITY: No edema, no cyanosis or clubbing. PSYCH: Cooperative. Disposition: DC/[place]-03 [facility] CERT Time spent for discharge: 34 minutes Core Measure Documentation - Palliative Care Palliative Care/ Comfort Measures: Not Applicable - Core Measures Any of the following diagnoses?: heart failure - Heart Failure Discharge Requirements FISH/ARB for LVSD if EF <40%: Yes Beta andra at discharge: Yes Exam - Constitutional Vitals: Temp Pulse Resp BP Pulse Ox 98.1 F 88 22 167/64 97 03/01/19 07:57 03/01/19 07:57 03/01/19 08:17 03/01/19 07:57 03/01/19 14:02 Plan Activity: fall precautions Weight Bearing Status: Non-Weight Bearing Diet: low fat, low salt Special Instructions: restrict fluid intake to (1.2 L perday) Additional Instructions: Need CT guided lung biopsy as outpt. hold Aspirin till lung biopsy could be done - Scheduled for Friday Follow up with: PRIMARY CAREMD [Referring] - 3-5 Days KAPIL FRANCO MD [Staff Physician] - 7 Days SHERYL CAREY MD [Staff Physician] - 7 Days
--- NOTE | 2019-03-01 17:53 | Progress Note ---
Assessment and Plan Imp: 1. FARAZ atelectasis, suspect malignancy 2. Bilateral pleural effusions; the L effusion may be related to #1 but cannot r/o CHF-related 3. Dilated CMP 4. Pulm HTN 5. Acute respiratory failure, hypoxia 6. Hyperkalemia Rec: 1. PO Lasix 2. Prednisone taper at d/c 3. Await CT guided biopsy if deemed feasible by radiology 4. Clinically better pulm-cerda Plan of care reviewed w/ patient, she understands/agrees Subjective Date of service: 03/01/19 Principal diagnosis: anemia Interval history: No events. SOB better. On O2 NC. No new complaints. Active Medications Acetaminophen (Tylenol) 650 mg PO Q6H PRN PRN Reason: Pain, Mild (1-3) Last Admin: 03/01/19 08:03 Dose: 650 mg Documented by: Albuterol (Proventil) 2.5 mg IH Q3HRT PRN PRN Reason: Shortness Of Breath Last Admin: 02/26/19 14:06 Dose: 2.5 mg Documented by: Allopurinol (Zyloprim) 100 mg PO QDAY [facility] Last Admin: 03/01/19 10:31 Dose: 100 mg Documented by: Aspirin (Ecotrin) 325 mg PO QDAY [facility] Last Admin: 03/01/19 10:35 Dose: Not Given Documented by: Atorvastatin Calcium (Lipitor) 40 mg PO QHS [facility] Last Admin: 02/28/19 21:47 Dose: 40 mg Documented by: Cilostazol (Pletal) 100 mg PO BID [facility] Last Admin: 03/01/19 10:30 Dose: 100 mg Documented by: Dextrose (D50w (25gm) Syringe) 0 ml IV Q30MIN PRN; Protocol PRN Reason: Hypoglycemia Ferrous Sulfate (Feosol) 325 mg PO QDAY [facility] Last Admin: 03/01/19 10:30 Dose: 325 mg Documented by: Furosemide (Lasix) 20 mg PO QDAY [facility] Last Admin: 03/01/19 10:31 Dose: 20 mg Documented by: Hydralazine HCl (Apresoline) 100 mg PO BID [facility] Last Admin: 03/01/19 10:30 Dose: 100 mg Documented by: Insulin Human Isoph/Insulin Regular (Humulin 70/30) 10 unit SUB-Q BIDDIAB [facility] Last Admin: 03/01/19 17:46 Dose: 10 unit Documented by: Insulin Human Regular (Humulin R) 0 units SUB-Q ACHS [facility]; Protocol Last Admin: 03/01/19 17:45 Dose: Not Given Documented by: Isosorbide Mononitrate (Imdur) 120 mg PO QDAY [facility] Last Admin: 03/01/19 10:31 Dose: 120 mg Documented by: Magnesium Hydroxide (Milk Of Magnesia) 30 ml PO Q4H PRN PRN Reason: Constipation Magnesium Oxide (Mag-Ox) 400 mg PO BID [facility] Last Admin: 03/01/19 10:31 Dose: 400 mg Documented by: Methylprednisolone Sodium Succinate (Solu-Medrol) 40 mg IV Q24HR [facility] Last Admin: 03/01/19 10:31 Dose: 40 mg Documented by: Metoprolol Tartrate (Metoprolol) 50 mg PO BID [facility] Last Admin: 03/01/19 10:31 Dose: 50 mg Documented by: Morphine Sulfate (Morphine) 2 mg IV Q4H PRN PRN Reason: Pain, Moderate (4-6) Last Admin: 02/21/19 03:33 Dose: 2 mg Documented by: Pantoprazole Sodium (Protonix) 40 mg PO QDAY [facility] Last Admin: 03/01/19 10:31 Dose: 40 mg Documented by: Sodium Chloride (Sodium Chloride Flush Syringe 10 Ml) 10 ml IV BID [facility] Last Admin: 03/01/19 10:31 Dose: 10 ml Documented by: Sodium Chloride (Sodium Chloride Flush Syringe 10 Ml) 10 ml IV PRN PRN PRN Reason: LINE FLUSH Objective Vital Signs - 12hr 03/01/19 03/01/19 03/01/19 07:57 08:17 08:33 Temperature 98.1 F Pulse Rate 88 Respiratory 18 22 Rate Blood Pressure 167/64 O2 Sat by Pulse 100 96 Oximetry 03/01/19 14:02 Temperature Pulse Rate Respiratory Rate Blood Pressure O2 Sat by Pulse 97 Oximetry Constitutional: no acute distress, alert Eyes: non-icteric ENT: oropharynx moist Neck: supple Effort: normal Ascultation: Right: clear Cardiovascular: regular rate and rhythm (no mrg) Gastrointestinal: normoactive bowel sounds, soft, non-tender, non-distended Integumentary: normal Extremities: no cyanosis, no edema, pink and warm Neurologic: normal mental status, non-focal exam, pupils equal and round Psychiatric: mood appropriate, affect normal CBC and BMP: 03/01/19 06:41 03/01/19 06:41 ABG, PT/INR, D-dimer: ABG POC ABG pH 7.377 (7.35-7.45) 02/18/19 23:44 POC ABG pCO2 35.6 (35-45) 02/18/19 23:44 POC ABG pO2 253 (80-105) H 02/18/19 23:44 POC ABG HCO3 20.9 (22-26 mml/L) 02/18/19 23:44 POC ABG Total CO2 22 (23-27mmol/L) 02/18/19 23:44 POC ABG O2 Sat 100 02/18/19 23:44 PT/INR, D-dimer PT 13.1 Sec. (12.2-14.9) 03/01/19 06:41 INR 1.00 (0.87-1.13) 03/01/19 06:41 Abnormal lab findings: Abnormal Labs 02/18/19 02/18/19 02/18/19 23:11 23:11 23:11 WBC 14.5 H RBC 3.33 L Hgb 8.3 L Hct 26.2 L MCV MCH 25 L RDW 19.4 H Plt Count 582 H Lymph % (Auto) [place] % (Auto) 10.5 H [place] # 1.5 H Baso # 0.2 H Seg Neutrophils % 73.2 H Seg Neuts % (Manual) Lymphocytes % (Manual) Monocytes % (Manual) Seg Neutrophils # 10.6 H Seg Neutrophils # Man Monocytes # (Manual) Basophils # (Manual) PT INR POC ABG pO2 Sodium 136 L Potassium Chloride Carbon Dioxide 18 L BUN 26 H Creatinine 1.3 H Glucose 118 H POC Glucose Calcium Magnesium TIBC Ferritin Troponin T NT-Pro-B Natriuret Pep 4784 H Albumin 2.4 L HDL Cholesterol Folate Fluid Glucose Fluid Total Protein 02/18/19 02/19/19 02/19/19 23:44 08:09 12:03 WBC RBC Hgb Hct MCV MCH RDW Plt Count Lymph % (Auto) [place] % (Auto) [place] # Baso # Seg Neutrophils % Seg Neuts % (Manual) Lymphocytes % (Manual) Monocytes % (Manual) Seg Neutrophils # Seg Neutrophils # Man Monocytes # (Manual) Basophils # (Manual) PT INR POC ABG pO2 253 H Sodium Potassium Chloride Carbon Dioxide BUN Creatinine Glucose POC Glucose 224 H 187 H Calcium Magnesium TIBC Ferritin Troponin T NT-Pro-B Natriuret Pep Albumin HDL Cholesterol Folate Fluid Glucose Fluid Total Protein 02/19/19 02/19/19 02/19/19 14:40 17:49 18:22 WBC RBC Hgb Hct MCV MCH RDW Plt Count Lymph % (Auto) [place] % (Auto) [place] # Baso # Seg Neutrophils % Seg Neuts % (Manual) Lymphocytes % (Manual) Monocytes % (Manual) Seg Neutrophils # Seg Neutrophils # Man Monocytes # (Manual) Basophils # (Manual) PT 15.7 H INR 1.27 H POC ABG pO2 Sodium Potassium Chloride Carbon Dioxide BUN Creatinine Glucose POC Glucose 239 H Calcium Magnesium TIBC Ferritin Troponin T NT-Pro-B Natriuret Pep Albumin HDL Cholesterol Folate Fluid Glucose 247 H Fluid Total Protein 3.3 L 02/19/19 02/20/19 02/20/19 22:24 04:45 04:45 WBC 18.6 H RBC 3.07 L Hgb 7.4 L Hct 23.8 L MCV 78 L MCH 24 L RDW 19.4 H Plt Count 596 H Lymph % (Auto) 8.8 L [place] % (Auto) [place] # 1.0 H Baso # Seg Neutrophils % 85.6 H Seg Neuts % (Manual) Lymphocytes % (Manual) Monocytes % (Manual) Seg Neutrophils # 15.9 H Seg Neutrophils # Man Monocytes # (Manual) Basophils # (Manual) PT INR POC ABG pO2 Sodium Potassium 5.2 H D Chloride Carbon Dioxide 19 L BUN 36 H Creatinine 1.6 H Glucose POC Glucose 170 H Calcium Magnesium TIBC Ferritin Troponin T NT-Pro-B Natriuret Pep Albumin HDL Cholesterol Folate Fluid Glucose Fluid Total Protein 02/20/19 02/20/19 02/20/19 11:17 15:39 20:37 WBC RBC Hgb Hct MCV MCH RDW Plt Count Lymph % (Auto) [place] % (Auto) [place] # Baso # Seg Neutrophils % Seg Neuts % (Manual) Lymphocytes % (Manual) Monocytes % (Manual) Seg Neutrophils # Seg Neutrophils # Man Monocytes # (Manual) Basophils # (Manual) PT INR POC ABG pO2 Sodium Potassium Chloride Carbon Dioxide BUN Creatinine Glucose POC Glucose 160 H 147 H 146 H Calcium Magnesium TIBC Ferritin Troponin T NT-Pro-B Natriuret Pep Albumin HDL Cholesterol Folate Fluid Glucose Fluid Total Protein 02/21/19 02/21/19 02/21/19 06:34 07:39 11:45 WBC RBC Hgb Hct MCV MCH RDW Plt Count Lymph % (Auto) [place] % (Auto) [place] # Baso # Seg Neutrophils % Seg Neuts % (Manual) Lymphocytes % (Manual) Monocytes % (Manual) Seg Neutrophils # Seg Neutrophils # Man Monocytes # (Manual) Basophils # (Manual) PT INR POC ABG pO2 Sodium 135 L Potassium 5.3 H Chloride Carbon Dioxide 17 L BUN 36 H Creatinine 1.5 H Glucose 179 H POC Glucose 184 H 268 H Calcium Magnesium TIBC Ferritin Troponin T NT-Pro-B Natriuret Pep Albumin HDL Cholesterol Folate Fluid Glucose Fluid Total Protein 02/21/19 02/21/19 02/21/19 11:59 15:41 20:43 WBC 13.6 H RBC 3.19 L Hgb 8.0 L Hct 24.7 L MCV 78 L MCH 25 L RDW 19.4 H Plt Count 614 H Lymph % (Auto) [place] % (Auto) [place] # Baso # Seg Neutrophils % Seg Neuts % (Manual) Lymphocytes % (Manual) Monocytes % (Manual) Seg Neutrophils # Seg Neutrophils # Man Monocytes # (Manual) Basophils # (Manual) PT INR POC ABG pO2 Sodium Potassium Chloride Carbon Dioxide BUN Creatinine Glucose POC Glucose 278 H 251 H Calcium Magnesium TIBC Ferritin Troponin T NT-Pro-B Natriuret Pep Albumin HDL Cholesterol Folate Fluid Glucose Fluid Total Protein 02/22/19 02/22/19 02/22/19 00:44 08:04 12:24 WBC RBC Hgb Hct MCV MCH RDW Plt Count Lymph % (Auto) [place] % (Auto) [place] # Baso # Seg Neutrophils % Seg Neuts % (Manual) Lymphocytes % (Manual) Monocytes % (Manual) Seg Neutrophils # Seg Neutrophils # Man Monocytes # (Manual) Basophils # (Manual) PT INR POC ABG pO2 Sodium 133 L Potassium Chloride Carbon Dioxide 19 L BUN 37 H Creatinine 1.5 H Glucose 139 H POC Glucose 124 H 174 H Calcium 8.1 L Magnesium TIBC Ferritin Troponin T NT-Pro-B Natriuret Pep Albumin HDL Cholesterol Folate Fluid Glucose Fluid Total Protein 02/22/19 02/22/19 02/22/19 13:15 15:56 21:30 WBC RBC Hgb Hct MCV MCH RDW Plt Count Lymph % (Auto) [place] % (Auto) [place] # Baso # Seg Neutrophils % Seg Neuts % (Manual) Lymphocytes % (Manual) Monocytes % (Manual) Seg Neutrophils # Seg Neutrophils # Man Monocytes # (Manual) Basophils # (Manual) PT INR POC ABG pO2 Sodium Potassium Chloride Carbon Dioxide BUN Creatinine Glucose POC Glucose 359 H 398 H Calcium Magnesium TIBC Ferritin Troponin T 0.208 H* D NT-Pro-B Natriuret Pep Albumin HDL Cholesterol 72 H Folate Fluid Glucose Fluid Total Protein 02/23/19 02/23/19 02/23/19 06:26 06:49 07:43 WBC RBC Hgb Hct MCV MCH RDW Plt Count Lymph % (Auto) [place] % (Auto) [place] # Baso # Seg Neutrophils % Seg Neuts % (Manual) Lymphocytes % (Manual) Monocytes % (Manual) Seg Neutrophils # Seg Neutrophils # Man Monocytes # (Manual) Basophils # (Manual) PT INR POC ABG pO2 Sodium 132 L Potassium Chloride Carbon Dioxide 20 L BUN 43 H Creatinine 1.3 H Glucose 163 H POC Glucose 183 H Calcium 8.1 L Magnesium 1.60 L TIBC Ferritin Troponin T 0.173 H* NT-Pro-B Natriuret Pep Albumin HDL Cholesterol Folate Fluid Glucose Fluid Total Protein 02/23/19 02/23/19 02/23/19 12:24 17:09 21:47 WBC RBC Hgb Hct MCV MCH RDW Plt Count Lymph % (Auto) [place] % (Auto) [place] # Baso # Seg Neutrophils % Seg Neuts % (Manual) Lymphocytes % (Manual) Monocytes % (Manual) Seg Neutrophils # Seg Neutrophils # Man Monocytes # (Manual) Basophils # (Manual) PT INR POC ABG pO2 Sodium Potassium Chloride Carbon Dioxide BUN Creatinine Glucose POC Glucose 186 H 245 H 203 H Calcium Magnesium TIBC Ferritin Troponin T NT-Pro-B Natriuret Pep Albumin HDL Cholesterol Folate Fluid Glucose Fluid Total Protein 02/24/19 02/24/19 02/24/19 05:14 05:14 05:14 WBC 20.8 H RBC 2.99 L Hgb 7.4 L Hct 23.8 L MCV MCH 25 L RDW 19.4 H Plt Count 608 H Lymph % (Auto) [place] % (Auto) [place] # Baso # Seg Neutrophils % Seg Neuts % (Manual) 85.0 H Lymphocytes % (Manual) 7.0 L Monocytes % (Manual) 8.0 H Seg Neutrophils # Seg Neutrophils # Man 17.7 H Monocytes # (Manual) 1.7 H Basophils # (Manual) PT 15.1 H INR 1.20 H POC ABG pO2 Sodium Potassium Chloride Carbon Dioxide 19 L BUN 38 H Creatinine Glucose 168 H POC Glucose Calcium 8.0 L Magnesium TIBC Ferritin Troponin T 0.216 H* D NT-Pro-B Natriuret Pep Albumin HDL Cholesterol Folate Fluid Glucose Fluid Total Protein 02/24/19 02/24/19 02/24/19 07:47 11:39 15:48 WBC RBC Hgb Hct MCV MCH RDW Plt Count Lymph % (Auto) [place] % (Auto) [place] # Baso # Seg Neutrophils % Seg Neuts % (Manual) Lymphocytes % (Manual) Monocytes % (Manual) Seg Neutrophils # Seg Neutrophils # Man Monocytes # (Manual) Basophils # (Manual) PT INR POC ABG pO2 Sodium Potassium Chloride Carbon Dioxide BUN Creatinine Glucose POC Glucose 180 H 227 H 234 H Calcium Magnesium TIBC Ferritin Troponin T NT-Pro-B Natriuret Pep Albumin HDL Cholesterol Folate Fluid Glucose Fluid Total Protein 02/24/19 02/25/19 02/25/19 20:56 04:27 04:27 WBC 20.0 H RBC 2.96 L Hgb 7.4 L Hct 23.5 L MCV MCH 25 L RDW 19.4 H Plt Count 575 H Lymph % (Auto) [place] % (Auto) [place] # Baso # Seg Neutrophils % Seg Neuts % (Manual) Lymphocytes % (Manual) Monocytes % (Manual) Seg Neutrophils # Seg Neutrophils # Man Monocytes # (Manual) Basophils # (Manual) PT INR POC ABG pO2 Sodium 135 L Potassium Chloride Carbon Dioxide 19 L BUN 32 H Creatinine Glucose 61 L POC Glucose 310 H Calcium 8.3 L Magnesium TIBC Ferritin Troponin T NT-Pro-B Natriuret Pep Albumin HDL Cholesterol Folate Fluid Glucose Fluid Total Protein 02/25/19 02/25/19 02/25/19 07:49 11:47 11:47 WBC RBC Hgb Hct MCV MCH RDW Plt Count Lymph % (Auto) [place] % (Auto) [place] # Baso # Seg Neutrophils % Seg Neuts % (Manual) Lymphocytes % (Manual) Monocytes % (Manual) Seg Neutrophils # Seg Neutrophils # Man Monocytes # (Manual) Basophils # (Manual) PT INR POC ABG pO2 Sodium Potassium Chloride Carbon Dioxide BUN Creatinine Glucose POC Glucose 112 H Calcium Magnesium TIBC 120 L Ferritin 893.3 H Troponin T NT-Pro-B Natriuret Pep Albumin HDL Cholesterol Folate Fluid Glucose Fluid Total Protein 02/25/19 02/25/19 02/25/19 11:49 17:26 21:23 WBC RBC Hgb Hct MCV MCH RDW Plt Count Lymph % (Auto) [place] % (Auto) [place] # Baso # Seg Neutrophils % Seg Neuts % (Manual) Lymphocytes % (Manual) Monocytes % (Manual) Seg Neutrophils # Seg Neutrophils # Man Monocytes # (Manual) Basophils # (Manual) PT INR POC ABG pO2 Sodium Potassium Chloride Carbon Dioxide BUN Creatinine Glucose POC Glucose 174 H 334 H 233 H Calcium Magnesium TIBC Ferritin Troponin T NT-Pro-B Natriuret Pep Albumin HDL Cholesterol Folate Fluid Glucose Fluid Total Protein 02/26/19 02/26/19 02/26/19 05:23 05:23 07:34 WBC 24.3 H RBC 3.07 L Hgb 7.5 L Hct 24.2 L MCV MCH 25 L RDW 19.5 H Plt Count 603 H Lymph % (Auto) [place] % (Auto) [place] # Baso # Seg Neutrophils % Seg Neuts % (Manual) Lymphocytes % (Manual) Monocytes % (Manual) Seg Neutrophils # Seg Neutrophils # Man Monocytes # (Manual) Basophils # (Manual) PT INR POC ABG pO2 Sodium 132 L Potassium Chloride Carbon Dioxide 20 L BUN 33 H Creatinine 1.3 H Glucose 165 H POC Glucose 177 H Calcium 8.2 L Magnesium TIBC Ferritin Troponin T NT-Pro-B Natriuret Pep Albumin HDL Cholesterol Folate Fluid Glucose Fluid Total Protein 02/26/19 02/26/19 02/26/19 11:03 15:46 21:20 WBC RBC Hgb Hct MCV MCH RDW Plt Count Lymph % (Auto) [place] % (Auto) [place] # Baso # Seg Neutrophils % Seg Neuts % (Manual) Lymphocytes % (Manual) Monocytes % (Manual) Seg Neutrophils # Seg Neutrophils # Man Monocytes # (Manual) Basophils # (Manual) PT INR POC ABG pO2 Sodium Potassium Chloride Carbon Dioxide BUN Creatinine Glucose POC Glucose 141 H 269 H 353 H Calcium Magnesium TIBC Ferritin Troponin T NT-Pro-B Natriuret Pep Albumin HDL Cholesterol Folate Fluid Glucose Fluid Total Protein 02/27/19 02/27/19 02/27/19 03:56 08:17 12:02 WBC RBC Hgb Hct MCV MCH RDW Plt Count Lymph % (Auto) [place] % (Auto) [place] # Baso # Seg Neutrophils % Seg Neuts % (Manual) Lymphocytes % (Manual) Monocytes % (Manual) Seg Neutrophils # Seg Neutrophils # Man Monocytes # (Manual) Basophils # (Manual) PT INR POC ABG pO2 Sodium 133 L Potassium Chloride 97.2 L Carbon Dioxide 21 L BUN 33 H Creatinine 1.5 H Glucose 170 H POC Glucose 136 H 163 H Calcium 8.0 L Magnesium TIBC Ferritin Troponin T NT-Pro-B Natriuret Pep Albumin HDL Cholesterol Folate Fluid Glucose Fluid Total Protein 02/27/19 02/27/19 02/28/19 17:02 21:17 07:36 WBC RBC Hgb Hct MCV MCH RDW Plt Count Lymph % (Auto) [place] % (Auto) [place] # Baso # Seg Neutrophils % Seg Neuts % (Manual) Lymphocytes % (Manual) Monocytes % (Manual) Seg Neutrophils # Seg Neutrophils # Man Monocytes # (Manual) Basophils # (Manual) PT INR POC ABG pO2 Sodium 132 L Potassium Chloride Carbon Dioxide 18 L BUN 33 H Creatinine Glucose 112 H POC Glucose 278 H 294 H Calcium 8.3 L Magnesium TIBC Ferritin Troponin T NT-Pro-B Natriuret Pep Albumin HDL Cholesterol Folate Fluid Glucose Fluid Total Protein 02/28/19 02/28/19 02/28/19 07:36 08:16 12:08 WBC 22.5 H RBC 3.17 L Hgb 8.1 L Hct 25.1 L MCV MCH 26 L RDW 20.3 H Plt Count 575 H Lymph % (Auto) [place] % (Auto) [place] # Baso # Seg Neutrophils % Seg Neuts % (Manual) 75.0 H Lymphocytes % (Manual) Monocytes % (Manual) Seg Neutrophils # Seg Neutrophils # Man 16.9 H Monocytes # (Manual) Basophils # (Manual) 0.2 H PT INR POC ABG pO2 Sodium Potassium Chloride Carbon Dioxide BUN Creatinine Glucose POC Glucose 117 H 225 H Calcium Magnesium TIBC Ferritin Troponin T NT-Pro-B Natriuret Pep Albumin HDL Cholesterol Folate Fluid Glucose Fluid Total Protein 02/28/19 02/28/19 03/01/19 17:01 20:54 06:41 WBC 19.9 H RBC 2.90 L Hgb 7.3 L Hct 22.8 L MCV MCH 25 L RDW 20.8 H Plt Count 521 H Lymph % (Auto) [place] % (Auto) 9.4 H [place] # 1.9 H Baso # Seg Neutrophils % 75.6 H Seg Neuts % (Manual) Lymphocytes % (Manual) Monocytes % (Manual) Seg Neutrophils # 15.0 H Seg Neutrophils # Man Monocytes # (Manual) Basophils # (Manual) PT INR POC ABG pO2 Sodium Potassium Chloride Carbon Dioxide BUN Creatinine Glucose POC Glucose 276 H 270 H Calcium Magnesium TIBC Ferritin Troponin T NT-Pro-B Natriuret Pep Albumin HDL Cholesterol Folate Fluid Glucose Fluid Total Protein 03/01/19 03/01/19 03/01/19 06:41 09:27 12:09 WBC RBC Hgb Hct MCV MCH RDW Plt Count Lymph % (Auto) [place] % (Auto) [place] # Baso # Seg Neutrophils % Seg Neuts % (Manual) Lymphocytes % (Manual) Monocytes % (Manual) Seg Neutrophils # Seg Neutrophils # Man Monocytes # (Manual) Basophils # (Manual) PT INR POC ABG pO2 Sodium Potassium Chloride Carbon Dioxide 20 L BUN 35 H Creatinine 1.4 H Glucose POC Glucose 148 H Calcium Magnesium TIBC Ferritin Troponin T NT-Pro-B Natriuret Pep Albumin HDL Cholesterol Folate 5.97 L Fluid Glucose Fluid Total Protein 03/01/19 17:35 WBC RBC Hgb Hct MCV MCH RDW Plt Count Lymph % (Auto) [place] % (Auto) [place] # Baso # Seg Neutrophils % Seg Neuts % (Manual) Lymphocytes % (Manual) Monocytes % (Manual) Seg Neutrophils # Seg Neutrophils # Man Monocytes # (Manual) Basophils # (Manual) PT INR POC ABG pO2 Sodium Potassium Chloride Carbon Dioxide BUN Creatinine Glucose POC Glucose 362 H Calcium Magnesium TIBC Ferritin Troponin T NT-Pro-B Natriuret Pep Albumin HDL Cholesterol Folate Fluid Glucose Fluid Total Protein Chest x-ray: report reviewed, image reviewed
--- NOTE | 2019-03-01 17:58 | Progress Note ---
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 Followed by Pulmonary. Need CT-guided lung biopsy for more tissue sampling /Left pleural effusion Thoracentesis done 02/[address] Carey that prelim path suggests squamous cell ca therfore CT biopsy lung FARAZ ordered CT guided lung biopsy now to be done Tomorrow - personally spoke with Dr Wallis / Acute hypoxic respiratory failure Possibly secondary to underlying pneumonia and malignancy, left pleural effusion and CHF exacerbation. She has been placed on BiPAP - now weaned off s/p thoracentesis on 02/19 drained 700cc fluid, 2-D echo showed EF of 30-35% Need assessment for home O2 requirement before discharge /Anemia Obtain stool occult blood consulted GI if stool occult blood positive /Acute on chronic systolic CHF We will continue patient on routine home medications. Will monitor daily weight monitor input and output. 2-D echo showed EF of 30-35%, we'll continue Lasix Cardiology following. Stress test done 02/23 abnormal. Was scheduled for cardiac cath but canceled because of anemia /NEELIMA, acute on CKD? This appears chronic. Will monitor BUN and creatinine, consulted nephrology, following /Physical debility, PT recommended acute rehab /DVT prophylaxis SCDs only for now because pending lung biopsy Full code status Follow clinically, discharge to SNF/[facility], pending on CT-guided lung biopsy Brief History: 73-year-old female with known history of hypertension coronary artery disease diabetes mellitus who presents to the emergency room complaining of shortness of breath. She was just recently discharged from the hospital with similar sympto ms, diagnosed with cavitary lesion in the left upper lobe was placed on antibiotics, was also ruled out for TB. She presents to the emergency room in respiratory distress. She was placed on BiPAP. Upon evaluation in the emergency room she was found to have findings consistent with moderate left pleural effusion - s/p thoracentesis. 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 Need CT-guided lung biopsy for more tissue sampling Hospitalist Physical exam: GENERAL: well-developed elderly AAF lying on bed appeared to be in no discomfort. HEENT: Normocephalic. Atraumatic. No conjunctival congestion or icterus. Patient has moist mucous membranes. NECK: Supple. Trachea midline. CHEST/LUNGS: BS auscultated bilaterally, breathing nonlabored. + Left sided rhonchi. HEART/CARDIOVASCULAR: Regular in rate and rhythm. S1 and S2 positive. ABDOMEN: Abdomen is soft, nontender. Patient has normal bowel sounds. SKIN: There is no rash. Warm and dry. NEURO: No focal motor deficit. Follows command. MUSCULOSKELETAL: No joint effusion or tenderness. EXTRIMITY: No edema, no cyanosis or clubbing. PSYCH: Cooperative. Subjective Date of service: 03/01/19 Principal diagnosis: anemia Interval history: Patient seen and examined breathing improved but still SOB on exertion Denies any chest pain, tolerating diet Plan for CT-guided biopsy tomorrow, discussed with radiology Objective - Constitutional Vitals: Vital Signs - 12hr 03/01/19 03/01/19 03/01/19 07:57 08:17 08:33 Temperature 98.1 F Pulse Rate 88 Respiratory 18 22 Rate Blood Pressure 167/64 O2 Sat by Pulse 100 96 Oximetry 03/01/19 14:02 Temperature Pulse Rate Respiratory Rate Blood Pressure O2 Sat by Pulse 97 Oximetry - Labs CBC & Chem 7: 03/01/19 06:41 03/01/19 06:41 Labs: Abnormal lab results 02/28/19 03/01/19 03/01/19 Range/Units 20:54 06:41 06:41 WBC 19.9 H (4.5-11.0) K/mm3 RBC 2.90 L (3.65-5.03) M/mm3 Hgb 7.3 L (10.1-14.3) gm/dl Hct 22.8 L (30.3-42.9) % MCH 25 L (28-32) pg RDW 20.8 H (13.2-15.2) % Plt Count 521 H (140-440) K/mm3 [place] % (Auto) 9.4 H (0.0-7.3) % [place] # 1.9 H (0.0-0.8) K/mm3 Seg Neutrophils % 75.6 H (40.0-70.0) % Seg Neutrophils # 15.0 H (1.8-7.7) K/mm3 Carbon Dioxide 20 L (22-30) mmol/L BUN 35 H (7-17) mg/dL Creatinine 1.4 H (0.7-1.2) mg/dL POC Glucose 270 H (70-105) Folate (7.3-26.0) ng/mL 03/01/19 03/01/19 03/01/19 Range/Units 09:27 12:09 17:35 WBC (4.5-11.0) K/mm3 RBC (3.65-5.03) M/mm3 Hgb (10.1-14.3) gm/dl Hct (30.3-42.9) % MCH (28-32) pg RDW (13.2-15.2) % Plt Count (140-440) K/mm3 [place] % (Auto) (0.0-7.3) % [place] # (0.0-0.8) K/mm3 Seg Neutrophils % (40.0-70.0) % Seg Neutrophils # (1.8-7.7) K/mm3 Carbon Dioxide (22-30) mmol/L BUN (7-17) mg/dL Creatinine (0.7-1.2) mg/dL POC Glucose 148 H 362 H (70-105) Folate 5.97 L (7.3-26.0) ng/mL
--- NOTE | 2019-03-02 05:35 | Hem/Onc Progress Note ---
Assessment and Plan 1. Possible squamous cell carcinoma in a patient with history of smoking, lung cavitation, pleural effusion. There is a plan for CT-guided biopsy. More tissue will help getting better marker testing for oral targeting medication usage. 2. History of chest pain, shortness of breath, hemoptysis. 3. Pleural effusion. 4. Heart failure. 5. Renal impairment. 6. Coronary artery disease. 7. Cardiomyopathy. 8. Hypertension. 9. Anemia. 10. Thrombocytosis. We will investigate for same and follow the patient. dr driscoll called - bx postponed as pt was on ASA. Lung bx planned for today 03/02 anemia - low foalte - replace - ? bleeding as a cause - Patient Problems (1) Lung cancer Current Visit: Yes Status: Suspected Subjective Date of service: 03/02/19 Principal diagnosis: lung ca Interval history: due lung bx today Objective - Exam Narrative Exam: Pain - none General appearance - alert Performance status complete dependence Eyes - no icterus ENT - no bleeding LNs cervical not palpable Neck - no LN Respiratory Normal Breath sounds - CTA anteriorly CVS S1 S2 + Extremities no edema General GI Soft Rectal deferred female - deferred Skin warm Musculoskeletal - moving limbs Neurologically alert awake - Constitutional Vitals: Last Vital Signs Temp 98.3 F 03/02/19 05:19 Pulse 75 03/02/19 05:18 Resp 20 03/02/19 05:18 BP 177/72 03/02/19 05:18 Pulse Ox 96 03/02/19 05:18 - Labs Lab Results: Laboratory Results - last 24 hr 03/01/19 03/01/19 03/01/19 06:41 06:41 06:41 WBC 19.9 H RBC 2.90 L Hgb 7.3 L Hct 22.8 L MCV 79 MCH 25 L MCHC 32 RDW 20.8 H Plt Count 521 H Lymph % (Auto) 13.9 [place] % (Auto) 9.4 H Eos % (Auto) 0.7 Baso % (Auto) 0.4 Lymph # 2.8 [place] # 1.9 H Eos # 0.1 Baso # 0.1 Seg Neutrophils % 75.6 H Seg Neutrophils # 15.0 H PT 13.1 INR 1.00 Sodium 137 Potassium 4.2 Chloride 101.2 Carbon Dioxide 20 L Anion Gap 20 BUN 35 H Creatinine 1.4 H Estimated GFR 44 BUN/Creatinine Ratio 25 Glucose 80 POC Glucose Calcium 8.5 Vitamin B12 Folate 03/01/19 03/01/19 03/01/19 08:04 09:27 09:27 WBC RBC Hgb Hct MCV MCH MCHC RDW Plt Count Lymph % (Auto) [place] % (Auto) Eos % (Auto) Baso % (Auto) Lymph # [place] # Eos # Baso # Seg Neutrophils % Seg Neutrophils # PT INR Sodium Potassium Chloride Carbon Dioxide Anion Gap BUN Creatinine Estimated GFR BUN/Creatinine Ratio Glucose POC Glucose 91 Calcium Vitamin B12 760.9 Folate 5.97 L 03/01/19 03/01/19 03/01/19 12:09 17:35 21:47 WBC RBC Hgb Hct MCV MCH MCHC RDW Plt Count Lymph % (Auto) [place] % (Auto) Eos % (Auto) Baso % (Auto) Lymph # [place] # Eos # Baso # Seg Neutrophils % Seg Neutrophils # PT INR Sodium Potassium Chloride Carbon Dioxide Anion Gap BUN Creatinine Estimated GFR BUN/Creatinine Ratio Glucose POC Glucose 148 H 362 H 310 H Calcium Vitamin B12 Folate Medications & Allergies - Medications Allergies/Adverse Reactions: Allergies ibuprofen Allergy (Verified 02/18/19 23:29) Unknown Penicillins Allergy (Verified 02/18/19 23:29) Unknown Home Medications: Home Medications Medication Instructions Recorded Confirmed Last Taken Type Allopurinol 100 mg PO DAILY 12/26/18 02/19/19 Unknown History Cilostazol 100 mg PO BID 12/26/18 02/19/19 Unknown History Ferrous Sulfate 325 mg PO DAILY 12/26/18 02/19/19 Unknown History Ipratropium (Nf) [Atrovent HFA 2 puff IH Q6HR PRN #1 inha 01/11/19 02/19/19 Unknown Rx 17MCG/PUFF] AtorvaSTATin [Lipitor] 40 mg PO QHS 02/09/19 02/19/19 Unknown History Pantoprazole [Protonix TAB] 40 mg PO QDAY #30 tablet 02/16/19 02/19/19 Unknown Rx hydrALAZINE [Apresoline TAB] 25 mg PO Q8HR #90 tablet 02/16/19 02/19/19 Unknown Rx Furosemide [Lasix TAB] 20 mg PO QDAY tablet 03/01/19 Unknown Rx ISOSORBIDE MONOnitrate [Imdur ER] 120 mg PO QDAY tablet 03/01/19 Unknown Rx Insulin NPH/Regular [NovoLIN 70/30] 10 unit SUB-Q BIDDIAB units 03/01/19 Unknown Rx Insulin Regular, Human [HumuLIN R] 0 units SUB-Q ACHS units 03/01/19 Unknown Rx Metoprolol [Lopressor TAB] 50 mg PO BID tablet 03/01/19 Unknown Rx Active Medications: Generic Name Dose Route Start Last Admin Trade Name Freq PRN Reason Stop Dose Admin Acetaminophen 650 mg 02/20/19 17:19 03/01/19 08:03 Tylenol PO 650 mg Q6H PRN Administration Pain, Mild (1-3) Albuterol 2.5 mg 02/20/19 23:45 02/26/19 14:06 Proventil IH 2.5 mg Q3HRT PRN Administration Shortness Of Breath Allopurinol 100 mg 02/21/19 12:15 03/01/19 10:31 Zyloprim PO 100 mg QDAY MAYLIN Administration Aspirin 325 mg 02/23/19 10:00 03/01/19 10:35 Ecotrin PO Not Given QDAY MAYLIN Atorvastatin Calcium 40 mg 02/21/19 22:00 03/01/19 22:40 Lipitor PO 40 mg QHS MAYLIN Administration Cilostazol 100 mg 02/21/19 22:00 03/01/19 22:39 Pletal PO 100 mg BID MAYLIN Administration Dextrose 0 ml 02/19/19 03:08 D50w (25gm) Syringe IV Q30MIN PRN Hypoglycemia Protocol Ferrous Sulfate 325 mg 02/22/19 10:00 03/01/19 10:30 Feosol PO 325 mg QDAY MAYLIN Administration Furosemide 20 mg 02/27/19 10:00 03/01/19 10:31 Lasix PO 20 mg QDAY MAYLIN Administration Hydralazine HCl 100 mg 02/28/19 10:00 03/01/19 22:40 Apresoline PO 100 mg BID MAYLIN Administration Insulin Human Isoph/Insulin Regular 10 unit 02/25/19 08:00 03/01/19 17:46 Humulin 70/30 SUB-Q 10 unit BIDDIAB MAYLIN Administration Insulin Human Regular 0 units 02/19/19 07:30 03/01/19 22:41 Humulin R SUB-Q 6 units ACHS MAYLIN Administration Protocol Isosorbide Mononitrate 120 mg 02/28/19 07:47 03/01/19 10:31 Imdur PO 120 mg QDAY MAYLIN Administration Magnesium Hydroxide 30 ml 02/19/19 03:08 Milk Of Magnesia PO Q4H PRN Constipation Magnesium Oxide 400 mg 02/23/19 11:00 03/01/19 22:39 Mag-Ox PO 400 mg BID MAYLIN Administration Methylprednisolone Sodium Succinate 40 mg 02/22/19 10:00 03/01/19 10:31 Solu-Medrol IV 40 mg Q24HR MAYLIN Administration Metoprolol Tartrate 50 mg 02/21/19 22:00 03/01/19 22:40 Metoprolol PO 50 mg BID MAYLIN Administration Morphine Sulfate 2 mg 02/19/19 03:08 02/21/19 03:33 Morphine IV 2 mg Q4H PRN Administration Pain, Moderate (4-6) Pantoprazole Sodium 40 mg 02/22/19 10:00 03/01/19 10:31 Protonix PO 40 mg QDAY MAYLIN Administration Sodium Chloride 10 ml 02/19/19 10:00 03/01/19 22:42 Sodium Chloride Flush Syringe 10 Ml IV 10 ml BID MAYLIN Administration Sodium Chloride 10 ml 02/19/19 03:08 Sodium Chloride Flush Syringe 10 Ml IV PRN PRN LINE FLUSH
[2019-03-02 08:05] LABS: Mean Corpuscular HGB Conc 32 % (30-34); Mean Corpuscular Volume 79 fl (79-97); Platelet Count 535 K/mm3 (140-440); Red Blood Count 3.18 M/mm3 (3.65-5.03)
[2019-03-02 08:06] LABS: Red Cell Distribution Width 20.8 % (13.2-15.2)
[2019-03-02] MEDS: INSULIN REGULAR, HUMAN 100 UNITS/1 ML SUB-Q SCH ×4 (08:32→23:12)
[2019-03-02 08:33] LABS: Calcium 8.4 mg/dL (8.4-10.2)
[2019-03-02] MEDS: INSULIN NPH/REGULAR 70/30 INJ SUB-Q SCH ×2 (08:33→18:18)
--- NOTE | 2019-03-02 09:15 | Progress Note ---
Assessment and Plan 1. Acute kidney injury: Mild NEELIMA superimposed on CKD stage 3, suspect vasomotor insult. Overall renal function is stable with some fluctuation. Monitor renal function. Avoid nephrotoxic agents. Meds dosage based on GFR. 2. FEN: Hyperkalemia, improved. Metabolic acidosis, monitor. Monitor lytes. 3. Acute hypoxic respiratory failure: Followed by Pulmonary. 4. Left lung cavitating lung lesion and L pleural effusion: S/p thoracentesis. 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 CT guided biopsy today. 5. Decompensated CHF: Continue Lasix. 6. CAD: Followed by Cards. 7. DM-2. 8. Hypertension: Monitor BP. 9. Anemia: POA. Followed by GI. Examination: General appearance: well-developed, well-nourished, appears stated age, no distress HEENT: ATNC, SKYE, mucous membranes moist, hearing intact, vision intact Neck: neck supple, trachea midline Respiratory: ctab Heart: regular, S1S2, no murmurs Gastrointestinal: normoactive bowel sounds, not tender Integumentary: no rash, warm and dry Neurologic: no focal deficit, no asterixis Ext: trace LE edema noted Subjective Date of service: 03/02/19 Principal diagnosis: lung ca Interval history: Patient was seen and examined at the bedside. Doing ok. Daughter at the bedside. Objective - Vital Signs Vital signs: Vital Signs - 12hr 03/01/19 03/01/19 03/01/19 21:30 22:00 23:47 Temperature 97.7 F Pulse Rate 78 Respiratory 18 Rate Blood Pressure 163/63 O2 Sat by Pulse 98 93 Oximetry 03/01/19 03/02/19 03/02/19 23:59 05:18 05:19 Temperature 98.3 F 98.3 F Pulse Rate 75 Respiratory 20 Rate Blood Pressure 177/72 O2 Sat by Pulse 96 Oximetry 03/02/19 07:55 Temperature 98.3 F Pulse Rate 79 Respiratory 18 Rate Blood Pressure 169/67 O2 Sat by Pulse 98 Oximetry - Lab 03/02/19 07:36 03/02/19 07:36 Most recent lab results Calcium 8.4 mg/dL (8.4-10.2) 03/02/19 07:36 Phosphorus 2.70 mg/dL (2.5-4.5) 02/23/19 06:26 Magnesium 1.70 mg/dL (1.7-2.3) 02/26/19 05:23 Medications & Allergies - Medications Allergies/Adverse Reactions: Allergies ibuprofen Allergy (Verified 02/18/19 23:29) Unknown Penicillins Allergy (Verified 02/18/19 23:29) Unknown Home Medications: Home Medications Medication Instructions Recorded Confirmed Last Taken Type Allopurinol 100 mg PO DAILY 12/26/18 02/19/19 Unknown History Cilostazol 100 mg PO BID 12/26/18 02/19/19 Unknown History Ferrous Sulfate 325 mg PO DAILY 12/26/18 02/19/19 Unknown History Ipratropium (Nf) [Atrovent HFA 2 puff IH Q6HR PRN #1 inha 01/11/19 02/19/19 Unknown Rx 17MCG/PUFF] AtorvaSTATin [Lipitor] 40 mg PO QHS 02/09/19 02/19/19 Unknown History Pantoprazole [Protonix TAB] 40 mg PO QDAY #30 tablet 02/16/19 02/19/19 Unknown Rx hydrALAZINE [Apresoline TAB] 25 mg PO Q8HR #90 tablet 02/16/19 02/19/19 Unknown Rx Furosemide [Lasix TAB] 20 mg PO QDAY tablet 03/01/19 Unknown Rx ISOSORBIDE MONOnitrate [Imdur ER] 120 mg PO QDAY tablet 03/01/19 Unknown Rx Insulin NPH/Regular [NovoLIN 70/30] 10 unit SUB-Q BIDDIAB units 03/01/19 Unknown Rx Insulin Regular, Human [HumuLIN R] 0 units SUB-Q ACHS units 03/01/19 Unknown Rx Metoprolol [Lopressor TAB] 50 mg PO BID tablet 03/01/19 Unknown Rx Active Medications: Generic Name Dose Route Start Last Admin Trade Name Freq PRN Reason Stop Dose Admin Acetaminophen 650 mg 02/20/19 17:19 03/01/19 08:03 Tylenol PO 650 mg Q6H PRN Administration Pain, Mild (1-3) Albuterol 2.5 mg 02/20/19 23:45 02/26/19 14:06 Proventil IH 2.5 mg Q3HRT PRN Administration Shortness Of Breath Allopurinol 100 mg 02/21/19 12:15 03/01/19 10:31 Zyloprim PO 100 mg QDAY MAYLIN Administration Aspirin 325 mg 02/23/19 10:00 03/01/19 10:35 Ecotrin PO Not Given QDAY MAYLIN Atorvastatin Calcium 40 mg 02/21/19 22:00 03/01/19 22:40 Lipitor PO 40 mg QHS MAYLIN Administration Cilostazol 100 mg 02/21/19 22:00 03/01/19 22:39 Pletal PO 100 mg BID MAYLIN Administration Dextrose 0 ml 02/19/19 03:08 D50w (25gm) Syringe IV Q30MIN PRN Hypoglycemia Protocol Ferrous Sulfate 325 mg 02/22/19 10:00 03/01/19 10:30 Feosol PO 325 mg QDAY MAYLIN Administration Folic Acid 1 mg 03/02/19 10:00 Folvite PO QDAY MAYLIN Furosemide 20 mg 02/27/19 10:00 03/01/19 10:31 Lasix PO 20 mg QDAY MAYLIN Administration Hydralazine HCl 100 mg 02/28/19 10:00 03/01/19 22:40 Apresoline PO 100 mg BID MAYLIN Administration Insulin Human Isoph/Insulin Regular 10 unit 02/25/19 08:00 03/02/19 08:33 Humulin 70/30 SUB-Q Not Given BIDDIAB MAYLIN Insulin Human Regular 0 units 02/19/19 07:30 03/02/19 08:32 Humulin R SUB-Q Not Given ACHS [facility] Protocol Isosorbide Mononitrate 120 mg 02/28/19 07:47 03/01/19 10:31 Imdur PO 120 mg QDAY [facility] Administration Magnesium Hydroxide 30 ml 02/19/19 03:08 Milk Of Magnesia PO Q4H PRN Constipation Magnesium Oxide 400 mg 02/23/19 11:00 03/01/19 22:39 Mag-Ox PO 400 mg BID AMYLIN Administration Methylprednisolone Sodium Succinate 40 mg 02/22/19 10:00 03/01/19 10:31 Solu-Medrol IV 40 mg Q24HR MAYLIN Administration Metoprolol Tartrate 50 mg 02/21/19 22:00 03/01/19 22:40 Metoprolol PO 50 mg BID MAYLIN Administration Morphine Sulfate 2 mg 02/19/19 03:08 02/21/19 03:33 Morphine IV 2 mg Q4H PRN Administration Pain, Moderate (4-6) Pantoprazole Sodium 40 mg 02/22/19 10:00 03/01/19 10:31 Protonix PO 40 mg QDAY MAYLIN Administration Sodium Chloride 10 ml 02/19/19 10:00 03/01/19 22:42 Sodium Chloride Flush Syringe 10 Ml IV 10 ml BID MAYLIN Administration Sodium Chloride 10 ml 02/19/19 03:08 Sodium Chloride Flush Syringe 10 Ml IV PRN PRN LINE FLUSH
[2019-03-02] MEDS: hydrALAZINE 25 MG TAB PO SCH ×2 (10:17→23:11)
[2019-03-02] MEDS: allopurinoL 100 MG TAB PO SCH (10:18)
[2019-03-02] MEDS: METOPROLOL TARTRATE 50 MG TAB PO SCH ×2 (10:18→23:11)
[2019-03-02] MEDS: methylPREDNISolone Sod Succinate 40 MG/1 ML INJ IV SCH (10:19)
--- NOTE | 2019-03-02 10:47 | Progress Note ---
Assessment and Plan Currently stable cardiac status. Cont present cardiac management. No ACEI/ARB at this time in setting of renal insufficiency. Patient awaiting biopsy of left upper lobe lesion today.Pending lung biopsy, pt may discharge from cardiology standpoint. We will consider [facility] in setting of abnormal stress test and newly diagnosed CMP as OP once medically stabilized and anemia is improved. Recommend pt follow up in our office with Dr. Pierce within 1 week of discharge ([phone]). The patient has been seen in conjunction with Dr. Neely who agrees with the assessment and plan of care. - Patient Problems (1) Acute respiratory distress Current Visit: Yes Status: Acute (2) Pneumonia Current Visit: Yes Status: Suspected Qualifiers: Pneumonia type: due to unspecified organism Laterality: left Lung location: lower lobe of lung Qualified Code(s): J18.9 - Pneumonia, unspecified organism (3) Pleural effusion Current Visit: Yes Status: Acute (4) Chest pain Current Visit: Yes Status: Resolved (5) Acute HFrEF (heart failure with reduced ejection fraction) Current Visit: Yes Status: Acute (6) Cardiomyopathy Current Visit: Yes Status: Chronic (7) CAD (coronary artery disease) Current Visit: Yes Status: Chronic Qualifiers: Coronary Disease-Associated Artery/Lesion type: [place] artery (8) Stented coronary artery Current Visit: Yes Status: Chronic (9) HTN (hypertension) Current Visit: Yes Status: Chronic Qualifiers: Hypertension type: essential hypertension Qualified Code(s): I10 - Essential (primary) hypertension (10) Diabetes Current Visit: Yes Status: Chronic (11) Renal insufficiency Current Visit: Yes Status: Acute (12) Anemia Current Visit: Yes Status: Acute (13) Polycythemia Current Visit: Yes Status: Acute (14) Former tobacco use Current Visit: Yes Status: Chronic (15) NSTEMI (non-ST elevated myocardial infarction) Current Visit: Yes Status: Acute Plan to address problem: type II (16) Abnormal stress test Current Visit: Yes Status: Acute (17) Lung cancer Current Visit: Yes Status: Suspected Subjective Date of service: 03/02/19 Principal diagnosis: lung ca Interval history: resting in bed, no current complaints. in SR. Objective Last Vital Signs Temp 98.3 F 03/02/19 07:55 Pulse 79 03/02/19 10:18 Resp 18 03/02/19 07:55 BP 169/65 03/02/19 10:16 Pulse Ox 98 03/02/19 07:55 - Physical Examination General: No Apparent Distress HEENT: Positive: EOMI, Normocephaly, Mucus Membranes Moist Neck: Positive: neck supple, trachea midline Cardiac: Positive: Reg Rate and Rhythm, S1/S2 Lungs: Positive: Decreased Breath Sounds Neuro: Positive: Grossly Intact Abdomen: Positive: Soft, Active Bowel Sounds. Negative: Tender Skin: Positive: Clear. Negative: Rash Musculoskeletal: Normal Range of Motion Extremities: Present: edema (trace pitting bilateral edema) - Labs and Meds CBC 03/02/19 Range/Units 07:36 WBC 20.8 H (4.5-11.0) K/mm3 RBC 3.18 L (3.65-5.03) M/mm3 Hgb 8.0 L (10.1-14.3) gm/dl Hct 25.0 L (30.3-42.9) % Plt Count 535 H (140-440) K/mm3 Comprehensive Metabolic Panel 03/02/19 Range/Units 07:36 Sodium 138 (137-145) mmol/L Potassium 4.0 (3.6-5.0) mmol/L Chloride 101.0 (98-107) mmol/L Carbon Dioxide 20 L (22-30) mmol/L BUN 36 H (7-17) mg/dL Creatinine 1.2 (0.7-1.2) mg/dL Glucose 151 H (65-100) mg/dL Calcium 8.4 (8.4-10.2) mg/dL - Imaging and Cardiology EKG: image reviewed Echo: report reviewed (02/19/2019 showed EF 30-35%, impaired relaxation, mild MR and TR, RVSP 46mmHg, basal anterior, mid anterior and apical anterior wall segments hypokinetic, mid inferoseptal and apical septal wall segments akinetic. ) - EKG Sinus rhythms and dysrhythmias: sinus rhythm Myocardial infarction: anterior DE (old age or i
[2019-03-02] MEDS ORDERED: ONDANSETRON 4 MG/2 ML INJ ONE (10:55)
[2019-03-02] MEDS ORDERED: HYDROmorphone 1 MG/1 ML INJ ONE (10:55)
[2019-03-02] MEDS ORDERED: ONDANSETRON 4 MG/2 ML INJ IV ONE (11:18)
[2019-03-02] MEDS ORDERED: HYDROmorphone 1 MG/1 ML INJ IV ONE (11:18)
--- NOTE | 2019-03-02 12:32 | Progress Note ---
Assessment and Plan Assessment and plan: 73-year-old female with known history of hypertension coronary artery disease diabetes mellitus who presents to the emergency room complaining of shortness of breath. She was just recently discharged from the hospital with similar symptoms, diagnosed with cavitary lesion in the left upper lobe was placed on antibiotics, was also ruled out for TB. She presents to the emergency room in respiratory distress. She was placed on BiPAP. Upon evaluation in the emergency room she was found to have findings consistent with moderate left pleural effusion - s/p thoracentesis. 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 Need CT-guided lung biopsy for more tissue sampling Lung cancer on left from pathology Left lung cavitating lung lesion and L pleural effusion: The patient also been treated for cavitary pneumonia Pleural fluid 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 Followed by Pulmonary. S/p CT-guided lung biopsy for more tissue sampling today - path shows lung cancer Left pleural effusion Thoracentesis done 02/[address] Carey that prelim path suggests squamous cell ca therfore CT biopsy lung FARAZ ordered Acute hypoxic respiratory failure Possibly secondary to underlying pneumonia and malignancy, left pleural effusion and CHF exacerbation. She has been placed on BiPAP - now weaned off s/p thoracentesis on 02/19 drained 700cc fluid, 2-D echo showed EF of 30-35% Need assessment for home O2 requirement before discharge Anemia Obtain stool occult blood consulted GI if stool occult blood positive Acute on chronic systolic CHF We will continue patient on routine home medications. Will monitor daily weight monitor input and output. 2-D echo showed EF of 30-35%, we'll continue Las[facility] Cardiology following. Stress test done 02/23 abnormal. Was scheduled for cardiac cath but canceled because of anemia NEELIMA, acute on CKD? This appears chronic. Will monitor BUN and creatinine, consulted nephrology, following Physical debility, PT recommended acute rehab DVT prophylaxis SCDs only for now because pending lung biopsy Full code status Likely dc to SNF tomorrow Discussed with Dr. Franco [facility]. To follow with him as outpatient. History Interval history: No chest pain currently No shortness of breath Hospitalist Physical - Physical exam Narrative exam: Gen: Not in acute distress, lying in bed, HEENT: Normocephalic, atraumatic Neck: supple, no JVD Heart: S1 and S2 reg, no murmurs, rubs or gallop Lungs: Clear to auscultation bilaterally, Abd: soft, non tender, non distended, normal BS, Ext: No edema, no clubbing, no cyanosis Neuro: Awake, alert, oriented X 3, no focal neurological signs - Constitutional Vitals: Temp Pulse Resp BP Pulse Ox 98.3 F 75 17 156/56 99 03/02/19 07:55 03/02/19 11:55 03/02/19 11:55 03/02/19 11:55 03/02/19 11:55 General appearance: Present: no acute distress Results - Labs CBC & Chem 7: 03/02/19 07:36 03/02/19 07:36 Labs: Laboratory Last Values WBC 20.8 K/mm3 (4.5-11.0) H 03/02/19 07:36 RBC 3.18 M/mm3 (3.65-5.03) L 03/02/19 07:36 Hgb 8.0 gm/dl (10.1-14.3) L 03/02/19 07:36 Hct 25.0 % (30.3-42.9) L 03/02/19 07:36 MCV 79 fl (79-97) 03/02/19 07:36 MCH 25 pg (28-32) L 03/02/19 07:36 MCHC 32 % (30-34) 03/02/19 07:36 RDW 20.8 % (13.2-15.2) H 03/02/19 07:36 Plt Count 535 K/mm3 (140-440) H 03/02/19 07:36 Lymph % (Auto) 13.9 % (13.4-35.0) 03/01/19 06:41 Whiteside % (Auto) 9.4 % (0.0-7.3) H 03/01/19 06:41 Eos % (Auto) 0.7 % (0.0-4.3) 03/01/19 06:41 Baso % (Auto) 0.4 % (0.0-1.8) 03/01/19 06:41 Lymph # 2.8 K/mm3 (1.2-5.4) 03/01/19 06:41 Whiteside # 1.9 K/mm3 (0.0-0.8) H 03/01/19 06:41 Eos # 0.1 K/mm3 (0.0-0.4) 03/01/19 06:41 Baso # 0.1 K/mm3 (0.0-0.1) 03/01/19 06:41 Add Manual Diff Complete 02/28/19 07:36 Total Counted 100 02/28/19 07:36 Seg Neutrophils % 75.6 % (40.0-70.0) H 03/01/19 06:41 Seg Neuts % (Manual) 75.0 % (40.0-70.0) H 02/28/19 07:36 Band Neutrophils % 0 % 02/28/19 07:36 Lymphocytes % (Manual) 20.0 % (13.4-35.0) 02/28/19 07:36 Reactive Lymphs % (Man) 0 % 02/28/19 07:36 Monocytes % (Manual) 3.0 % (0.0-7.3) 02/28/19 07:36 Eosinophils % (Manual) 0 % (0.0-4.3) 02/28/19 07:36 Basophils % (Manual) 1.0 % (0.0-1.8) 02/28/19 07:36 Metamyelocytes % 1.0 % 02/28/19 07:36 Myelocytes % 0 % 02/28/19 07:36 Promyelocytes % 0 % 02/28/19 07:36 Blast Cells % 0 % 02/28/19 07:36 Nucleated RBC % Not Reportable 02/28/19 07:36 Seg Neutrophils # 15.0 K/mm3 (1.8-7.7) H 03/01/19 06:41 Seg Neutrophils # Man 16.9 K/mm3 (1.8-7.7) H 02/28/19 07:36 Band Neutrophils # 0.0 K/mm3 02/28/19 07:36 Lymphocytes # (Manual) 4.5 K/mm3 (1.2-5.4) 02/28/19 07:36 Abs React Lymphs (Man) 0.0 K/mm3 02/28/19 07:36 Monocytes # (Manual) 0.7 K/mm3 (0.0-0.8) 02/28/19 07:36 Eosinophils # (Manual) 0.0 K/mm3 (0.0-0.4) 02/28/19 07:36 Basophils # (Manual) 0.2 K/mm3 (0.0-0.1) H 02/28/19 07:36 Metamyelocytes # 0.2 K/mm3 02/28/19 07:36 Myelocytes # 0.0 K/mm3 02/28/19 07:36 Promyelocytes # 0.0 K/mm3 02/28/19 07:36 Blast Cells # 0.0 K/mm3 02/28/19 07:36 WBC Morphology Not Reportable 02/28/19 07:36 Hypersegmented Neuts Not Reportable 02/28/19 07:36 Hyposegmented Neuts Not Reportable 02/28/19 07:36 Hypogranular Neuts Not Reportable 02/28/19 07:36 Smudge Cells Not Reportable 02/28/19 07:36 Toxic Granulation Not Reportable 02/28/19 07:36 Toxic Vacuolation Not Reportable 02/28/19 07:36 Dohle Bodies Not Reportable 02/28/19 07:36 Pelger-Huet Anomaly Not Reportable 02/28/19 07:36 Jessica Rods Not Reportable 02/28/19 07:36 Platelet Estimate Consistent w auto 02/28/19 07:36 Clumped Platelets Not Reportable 02/28/19 07:36 Plt Clumps, EDTA Not Reportable 02/28/19 07:36 Large Platelets Not Reportable 02/28/19 07:36 Giant Platelets Not Reportable 02/28/19 07:36 Platelet Satelliting Not Reportable 02/28/19 07:36 Plt Morphology Comment Not Reportable 02/28/19 07:36 RBC Morphology Not Reportable 02/28/19 07:36 Dimorphic RBCs Not Reportable 02/28/19 07:36 Polychromasia Not Reportable 02/28/19 07:36 Hypochromasia 1+ 02/28/19 07:36 Poikilocytosis Not Reportable 02/28/19 07:36 Anisocytosis 1+ 02/28/19 07:36 Microcytosis Not Reportable 02/28/19 07:36 Macrocytosis Not Reportable 02/28/19 07:36 Spherocytes Not Reportable 02/28/19 07:36 Pappenheimer Bodies Not Reportable 02/28/19 07:36 Sickle Cells Not Reportable 02/28/19 07:36 Target Cells 1+ 02/28/19 07:36 Tear Drop Cells Not Reportable 02/28/19 07:36 Ovalocytes Not Reportable 02/28/19 07:36 Helmet Cells Not Reportable 02/28/19 07:36 Ling-Patriot Bodies Not Reportable 02/28/19 07:36 Redfield Rings Not Reportable 02/28/19 07:36 Lora Cells Not Reportable 02/28/19 07:36 Bite Cells Not Reportable 02/28/19 07:36 Crenated Cell Not Reportable 02/28/19 07:36 Elliptocytes Not Reportable 02/28/19 07:36 Acanthocytes (Spur) Not Reportable 02/28/19 07:36 Rouleaux Not Reportable 02/28/19 07:36 Hemoglobin C Crystals Not Reportable 02/28/19 07:36 Schistocytes Few 02/28/19 07:36 Malaria parasites Not Reportable 02/28/19 07:36 Galen Bodies Not Reportable 02/28/19 07:36 Hem Pathologist Commnt No 02/28/19 07:36 PT 13.1 Sec. (12.2-14.9) 03/01/19 06:41 INR 1.00 (0.87-1.13) 03/01/19 06:41 POC ABG pH 7.377 (7.35-7.45) 02/18/19 23:44 POC ABG pCO2 35.6 (35-45) 02/18/19 23:44 POC ABG pO2 253 (80-105) H 02/18/19 23:44 POC ABG HCO3 20.9 (22-26 mml/L) 02/18/19 23:44 POC ABG Total CO2 22 (23-27mmol/L) 02/18/19 23:44 POC ABG O2 Sat 100 02/18/19 23:44 POC ABG Base Excess -4 ((-2) - (+3)mmol/L) 02/18/19 23:44 FiO2 100 % 02/18/19 23:44 Sodium 138 mmol/L (137-145) 03/02/19 07:36 Potassium 4.0 mmol/L (3.6-5.0) 03/02/19 07:36 Chloride 101.0 mmol/L (98-107) 03/02/19 07:36 Carbon Dioxide 20 mmol/L (22-30) L 03/02/19 07:36 Anion Gap 21 mmol/L 03/02/19 07:36 BUN 36 mg/dL (7-17) H 03/02/19 07:36 Creatinine 1.2 mg/dL (0.7-1.2) 03/02/19 07:36 Estimated GFR 53 ml/min 03/02/19 07:36 BUN/Creatinine Ratio 30 % 03/02/19 07:36 Glucose 151 mg/dL (65-100) H 03/02/19 07:36 POC Glucose 143 (70-105) H 03/02/19 08:03 Calcium 8.4 mg/dL (8.4-10.2) 03/02/19 07:36 Phosphorus 2.70 mg/dL (2.5-4.5) 02/23/19 06:26 Magnesium 1.70 mg/dL (1.7-2.3) 02/26/19 05:23 Iron 37 ug/dL (37-170) 02/25/19 11:47 TIBC 120 mcg/dL (250-450) L 02/25/19 11:47 Ferritin 893.3 ng/mL (13.0-400.0) H 02/25/19 11:47 Total Bilirubin 0.20 mg/dL (0.1-1.2) 02/18/19 23:11 AST 18 units/L (5-40) 02/18/19 23:11 ALT 7 units/L (7-56) 02/18/19 23:11 Alkaline Phosphatase 83 units/L (35-129) 02/18/19 23:11 Troponin T 0.216 ng/mL (0.00-0.029) H* D 02/24/19 05:14 NT-Pro-B Natriuret Pep 4784 pg/mL (0-900) H 02/18/19 23:11 Total Protein 7.6 g/dL (6.3-8.2) 02/18/19 23:11 Albumin 2.4 g/dL (3.9-5) L 02/18/19 23:11 Albumin/Globulin Ratio 0.5 % 02/18/19 23:11 Triglycerides 118 mg/dL (2-149) 02/22/19 13:15 Cholesterol 141 mg/dL (50-199) 02/22/19 13:15 LDL Cholesterol Direct 50 mg/dL (50-130) 02/22/19 13:15 HDL Cholesterol 72 mg/dL (40-59) H 02/22/19 13:15 Cholesterol/HDL Ratio 1.95 % 02/22/19 13:15 Vitamin B12 760.9 pg/mL (211-911) 03/01/19 09:27 Folate 5.97 ng/mL (7.3-26.0) L 03/01/19 09:27 Fluid Type Pleural 02/19/19 14:40 Fluid Color Straw 02/19/19 14:40 Fluid Appearance Hazy 02/19/19 14:40 Fluid WBC 804 /mm3 02/19/19 14:40 Fluid RBC 195 /mm3 02/19/19 14:40 Fluid Seg Neutrophils 6.0 % 02/19/19 14:40 Fluid Lymphocytes 39.0 % 02/19/19 14:40 Fluid Reactive Lymphs 0 % 02/19/19 14:40 Fluid Monocytes 19.0 % 02/19/19 14:40 Fluid Eosinophils 36.0 % 02/19/19 14:40 Fluid Basophils 0 % 02/19/19 14:40 Fluid Glucose 247 mg/dL (40-70) H 02/19/19 14:40 Fluid Total Protein 3.3 (15.0-45.0) L 02/19/19 14:40 Fluid LDH 131 02/19/19 14:40 Vancomycin Trough 11.7 ug/mL (5.0-20.0) 02/21/19 06:34 AFB Identification 02/19/19 14:40 Fungal Id Prelim 02/19/19 14:40 Active Medications - Current Medications Current Medications: Generic Name Dose Route Start Last Admin Trade Name Freq PRN Reason Stop Dose Admin Acetaminophen 650 mg 02/20/19 17:19 03/01/19 08:03 Tylenol PO 650 mg Q6H PRN Administration Pain, Mild (1-3) Albuterol 2.5 mg 02/20/19 23:45 02/26/19 14:06 Proventil IH 2.5 mg Q3HRT PRN Administration Shortness Of Breath Allopurinol 100 mg 02/21/19 12:15 03/02/19 10:18 Zyloprim PO 100 mg QDAY [facility] Administration Aspirin 325 mg 02/23/19 10:00 03/01/19 10:35 Ecotrin PO Not Given QDAY [facility]LIN Atorvastatin Calcium 40 mg 02/21/19 22:00 03/01/19 22:40 Lipitor PO 40 mg QHS MAYLIN Administration Cilostazol 100 mg 02/21/19 22:00 03/01/19 22:39 Pletal PO 100 mg BID MAYLIN Administration Dextrose 0 ml 02/19/19 03:08 D50w (25gm) Syringe IV Q30MIN PRN Hypoglycemia Protocol Ferrous Sulfate 325 mg 02/22/19 10:00 03/01/19 10:30 Feosol PO 325 mg QDAY [facility] Administration Folic Acid 1 mg 03/02/19 10:00 Folvite PO QDAY MAYLIN Furosemide 20 mg 02/27/19 10:00 03/01/19 10:31 Lasix PO 20 mg QDAY [facility] Administration Hydralazine HCl 100 mg 02/28/19 10:00 03/02/19 10:17 Apresoline PO 100 mg BID MAYLIN Administration Insulin Human Isoph/Insulin Regular 10 unit 02/25/19 08:00 03/02/19 08:33 Humulin 70/30 SUB-Q Not Given BIDDIAB [facility] Insulin Human Regular 0 units 02/19/19 07:30 03/02/19 08:32 Humulin R SUB-Q Not Given ACHS [facility] Protocol Isosorbide Mononitrate 120 mg 02/28/19 07:47 03/02/19 10:16 Imdur PO 120 mg QDAY [facility] Administration Magnesium Hydroxide 30 ml 02/19/19 03:08 Milk Of Magnesia PO Q4H PRN Constipation Magnesium Oxide 400 mg 02/23/19 11:00 03/01/19 22:39 Mag-Ox PO 400 mg BID [facility] Administration Methylprednisolone Sodium Succinate 40 mg 02/22/19 10:00 03/02/19 10:19 Solu-Medrol IV 40 mg Q24HR [facility] Administration Metoprolol Tartrate 50 mg 02/21/19 22:00 03/02/19 10:18 Metoprolol PO 50 mg BID [facility] Administration Morphine Sulfate 2 mg 02/19/19 03:08 02/21/19 03:33 Morphine IV 2 mg Q4H PRN Administration Pain, Moderate (4-6) Pantoprazole Sodium 40 mg 02/22/19 10:00 03/01/19 10:31 Protonix PO 40 mg QDAY [facility] Administration Sodium Chloride 10 ml 02/19/19 10:00 03/02/19 10:20 Sodium Chloride Flush Syringe 10 Ml IV 10 ml BID [facility] Administration Sodium Chloride 10 ml 02/19/19 03:08 Sodium Chloride Flush Syringe 10 Ml IV PRN PRN LINE FLUSH Nutrition/Malnutrition Assess - Dietary Evaluation Nutrition/Malnutrition Findings: Nutrition Notes Start: 02/19/19 14:03 Freq: Status: Active Protocol: Document 02/25/19 14:07 KRISTOPHER (Rec: 02/25/19 14:24 KRISTOPHER [id number]) Co-Sign 02/25/19 14:07 REGINALDO Nutrition Notes Initial or Follow up Reassessment Current Diagnosis CKD(stage I-IV),Coronary Artery Disease,Diabetes, Hypertension,Heart Failure Other Pertinent Diagnosis GERD, pneumonia Current Diet consistent CHO Labs/Tests BG 61 Na 135 BUN 32 Pertinent Medications Lipitor Solu-medrol Lasix Height 5 ft 3 in Weight 64.8 kg Usual Body Weight 64 kg [place] Body Weight (kg) 52.27 BMI 25.2 Subjective/Other Information F/U for PO and ONS intakes. Pt stated her appetite was good and ate 75% of lunch. Pt also stated being brought outside food. Percent of energy/protein needs met: 100%/100% Burn Absent Trauma Absent GI Symptoms None Current % PO Good (75-100%) Minimum of two criteria No physical signs of malnutrition #1 Nutrition Diagnosis Inadequate oral intake As Evidenced by Signs and Symptoms Pt eating 100%/100% of energy and protein needs Diagnosis Progress(for reassessment Improved documentation) Is patient on ventilator? No Is Patient Ambulatory and/or Out of Bed Yes REE-([place]-St. Jeor-ambulatory/OOB) [ 1445.769 [id number]] Calculation Used for Recommendations [place]-St Jeor Additional Notes Protein: 52-78g/kg (0.8-1.2g/ kg) Fluid: 1ml/kcal Nutrition Intervention Change Diet Order: Change to renal with consisitent carb diet modification Add Supplement/Snack (indicate name/kcal D/C ensure enlive /protein ) Goal #1 Continue to meet at least 75% of energy and protein needs via PO intakes Anticipated Discharge Needs: Renal consistent carb diet modification Follow-Up By: 03/03/19 Additional Comments F/U for consistent PO intakes
--- NOTE | 2019-03-02 12:48 | Cat Scan Report ---
CT-GUIDED BIOPSY LEFT LUNG INDICATION : FARAZ nodule, path from pleural fluid sugg cancer. Left lung mass. COMPARISON: CT chest dated 02/19/2019. PROCEDURE: The risks (including but not limited to bleeding and infection) and benefits were explain ed to the patient and informed consent was obtained. All CT scans at this location are performed usi ng CT dose reduction for ALARA by means of automated exposure control. A time out procedure was performed. The procedure site was prepped and draped in the usual sterile f ashion and lidocaine was used for local anesthesia. Anxiolysis was accomplished with IV Dilaudid and Zofran. Using CT guidance, a 19-gauge introducer needle was advanced to the leading edge of an approximate 6 cm necrotic mass in the lingula. 2 separate 2.2 cm 20-gauge core biopsies were obtained. Pathology wa s present and deemed the samples adequate. The patient tolerated the procedure well with no complications. IMPRESSION: Successful CT-guided biopsy of a necrotic 6 cm lingular mass. Signer Name: Kenny Wallis Jr, MD Signed: 03/02/2019 12:44 PM Workstation Name: [id number]
[2019-03-02] MEDS: FERROUS SULFATE 325 MG TAB PO SCH (13:03)
[2019-03-02] MEDS: FUROSEMIDE 40 MG TAB PO SCH (13:03)
[2019-03-02] MEDS: CILOSTAZOL 100 MG TAB PO SCH ×2 (13:03→23:11)
[2019-03-02] MEDS: PANTOPRAZOLE 40 MG TAB PO SCH (13:03)
[2019-03-02] MEDS: FOLIC ACID 1 MG TAB PO SCH (13:03)
[2019-03-02] MEDS: MAGNESIUM OXIDE 400 MG TAB PO SCH ×2 (13:03→23:11)
--- NOTE | 2019-03-02 14:59 | Progress Note ---
Assessment and Plan Imp: 1. FARAZ atelectasis, suspect malignancy 2. Bilateral pleural effusions; the L effusion may be related to #1 but cannot r/o CHF-related 3. Dilated CMP 4. Pulm HTN 5. Acute respiratory failure, hypoxia 6. Hyperkalemia Rec: 1. PO Lasix 2. Prednisone taper at d/c 3. F/u CT guided biopsy results as outpatient (needs to see us in 1-2 weeks) 4. Clinically better pulm-cerda and stable for d/c to rehab Plan of care reviewed w/ patient/daughter, they understand/agree Subjective Date of service: 03/02/19 Principal diagnosis: lung ca Interval history: CT guided biopsy done this AM w/o issues. SOB better. On O2 NC. No new complaints. Active Medications Acetaminophen (Tylenol) 650 mg PO Q6H PRN PRN Reason: Pain, Mild (1-3) Last Admin: 03/01/19 08:03 Dose: 650 mg Documented by: Albuterol (Proventil) 2.5 mg IH Q3HRT PRN PRN Reason: Shortness Of Breath Last Admin: 02/26/19 14:06 Dose: 2.5 mg Documented by: Allopurinol (Zyloprim) 100 mg PO QDAY [facility] Last Admin: 03/02/19 10:18 Dose: 100 mg Documented by: Aspirin (Ecotrin) 325 mg PO QDAY [facility] Last Admin: 03/01/19 10:35 Dose: Not Given Documented by: Atorvastatin Calcium (Lipitor) 40 mg PO QHS [facility] Last Admin: 03/01/19 22:40 Dose: 40 mg Documented by: Cilostazol (Pletal) 100 mg PO BID [facility] Last Admin: 03/02/19 13:03 Dose: 100 mg Documented by: Dextrose (D50w (25gm) Syringe) 0 ml IV Q30MIN PRN; Protocol PRN Reason: Hypoglycemia Ferrous Sulfate (Feosol) 325 mg PO QDAY [facility] Last Admin: 03/02/19 13:03 Dose: 325 mg Documented by: Folic Acid (Folvite) 1 mg PO QDAY [facility] Last Admin: 03/02/19 13:03 Dose: 1 mg Documented by: Furosemide (Lasix) 20 mg PO QDAY [facility] Last Admin: 03/02/19 13:03 Dose: 20 mg Documented by: Hydralazine HCl (Apresoline) 100 mg PO BID [facility] Last Admin: 03/02/19 10:17 Dose: 100 mg Documented by: Insulin Human Isoph/Insulin Regular (Humulin 70/30) 10 unit SUB-Q BIDDIAB [facility] Last Admin: 03/02/19 08:33 Dose: Not Given Documented by: Insulin Human Regular (Humulin R) 0 units SUB-Q ACHS [facility]; Protocol Last Admin: 03/02/19 11:35 Dose: Not Given Documented by: Isosorbide Mononitrate (Imdur) 120 mg PO QDAY [facility] Last Admin: 03/02/19 10:16 Dose: 120 mg Documented by: Magnesium Hydroxide (Milk Of Magnesia) 30 ml PO Q4H PRN PRN Reason: Constipation Magnesium Oxide (Mag-Ox) 400 mg PO BID [facility] Last Admin: 03/02/19 13:03 Dose: 400 mg Documented by: Methylprednisolone Sodium Succinate (Solu-Medrol) 40 mg IV Q24HR [facility] Last Admin: 03/02/19 10:19 Dose: 40 mg Documented by: Metoprolol Tartrate (Metoprolol) 50 mg PO BID [facility] Last Admin: 03/02/19 10:18 Dose: 50 mg Documented by: Morphine Sulfate (Morphine) 2 mg IV Q4H PRN PRN Reason: Pain, Moderate (4-6) Last Admin: 02/21/19 03:33 Dose: 2 mg Documented by: Pantoprazole Sodium (Protonix) 40 mg PO QDAY [facility] Last Admin: 03/02/19 13:03 Dose: 40 mg Documented by: Sodium Chloride (Sodium Chloride Flush Syringe 10 Ml) 10 ml IV BID [facility] Last Admin: 03/02/19 10:20 Dose: 10 ml Documented by: Sodium Chloride (Sodium Chloride Flush Syringe 10 Ml) 10 ml IV PRN PRN PRN Reason: LINE FLUSH Objective Vital Signs - 12hr 03/02/19 03/02/19 03/02/19 05:18 05:19 07:55 Temperature 98.3 F 98.3 F Pulse Rate 75 79 Pulse Rate [ Intra-Procedure ] Pulse Rate [ Post-Procedure] Pulse Rate [Pre -Procedure] Respiratory 20 18 Rate Respiratory Rate [Intra- Procedure] Respiratory Rate [Post- Procedure] Respiratory Rate [Pre- Procedure] Blood Pressure 177/72 169/67 Blood Pressure [Intra- Procedure] Blood Pressure [Post-Procedure ] Blood Pressure [Pre-Procedure] O2 Sat by Pulse 96 98 Oximetry O2 Sat by Pulse Oximetry [ Intra-Procedure ] O2 Sat by Pulse Oximetry [Post -Procedure] O2 Sat by Pulse Oximetry [Pre- Procedure] 03/02/19 03/02/19 03/02/19 10:16 10:18 11:00 Temperature Pulse Rate 79 79 Pulse Rate [ Intra-Procedure ] Pulse Rate [ Post-Procedure] Pulse Rate [Pre 78 -Procedure] Respiratory Rate Respiratory Rate [Intra- Procedure] Respiratory Rate [Post- Procedure] Respiratory 22 Rate [Pre- Procedure] Blood Pressure 169/65 Blood Pressure [Intra- Procedure] Blood Pressure [Post-Procedure ] Blood Pressure 183/65 [Pre-Procedure] O2 Sat by Pulse Oximetry O2 Sat by Pulse Oximetry [ Intra-Procedure ] O2 Sat by Pulse Oximetry [Post -Procedure] O2 Sat by Pulse 100 Oximetry [Pre- Procedure] 03/02/19 03/02/19 03/02/19 11:15 11:20 11:25 Temperature Pulse Rate Pulse Rate [ 86 87 76 Intra-Procedure ] Pulse Rate [ Post-Procedure] Pulse Rate [Pre -Procedure] Respiratory Rate Respiratory 14 15 16 Rate [Intra- Procedure] Respiratory Rate [Post- Procedure] Respiratory Rate [Pre- Procedure] Blood Pressure Blood Pressure 173/67 177/74 169/69 [Intra- Procedure] Blood Pressure [Post-Procedure ] Blood Pressure [Pre-Procedure] O2 Sat by Pulse Oximetry O2 Sat by Pulse 100 100 99 Oximetry [ Intra-Procedure ] O2 Sat by Pulse Oximetry [Post -Procedure] O2 Sat by Pulse Oximetry [Pre- Procedure] 03/02/19 03/02/19 03/02/19 11:30 11:35 11:40 Temperature Pulse Rate Pulse Rate [ 83 80 Intra-Procedure ] Pulse Rate [ 80 Post-Procedure] Pulse Rate [Pre -Procedure] Respiratory Rate Respiratory 18 16 Rate [Intra- Procedure] Respiratory 16 Rate [Post- Procedure] Respiratory Rate [Pre- Procedure] Blood Pressure Blood Pressure 165/64 160/64 [Intra- Procedure] Blood Pressure 164/58 [Post-Procedure ] Blood Pressure [Pre-Procedure] O2 Sat by Pulse Oximetry O2 Sat by Pulse 99 99 Oximetry [ Intra-Procedure ] O2 Sat by Pulse 98 Oximetry [Post -Procedure] O2 Sat by Pulse Oximetry [Pre- Procedure] 03/02/19 11:55 Temperature Pulse Rate Pulse Rate [ Intra-Procedure ] Pulse Rate [ 75 Post-Procedure] Pulse Rate [Pre -Procedure] Respiratory Rate Respiratory Rate [Intra- Procedure] Respiratory 17 Rate [Post- Procedure] Respiratory Rate [Pre- Procedure] Blood Pressure Blood Pressure [Intra- Procedure] Blood Pressure 156/56 [Post-Procedure ] Blood Pressure [Pre-Procedure] O2 Sat by Pulse Oximetry O2 Sat by Pulse Oximetry [ Intra-Procedure ] O2 Sat by Pulse 99 Oximetry [Post -Procedure] O2 Sat by Pulse Oximetry [Pre- Procedure] Constitutional: no acute distress, alert Eyes: non-icteric ENT: oropharynx moist Neck: supple Effort: normal Ascultation: Right: clear Cardiovascular: regular rate and rhythm (no mrg) Gastrointestinal: normoactive bowel sounds, soft, non-tender, non-distended Integumentary: normal Extremities: no cyanosis, no edema, pink and warm Neurologic: normal mental status, non-focal exam, pupils equal and round Psychiatric: mood appropriate, affect normal CBC and BMP: 03/02/19 07:36 03/02/19 07:36 ABG, PT/INR, D-dimer: ABG POC ABG pH 7.377 (7.35-7.45) 02/18/19 23:44 POC ABG pCO2 35.6 (35-45) 02/18/19 23:44 POC ABG pO2 253 (80-105) H 02/18/19 23:44 POC ABG HCO3 20.9 (22-26 mml/L) 02/18/19 23:44 POC ABG Total CO2 22 (23-27mmol/L) 02/18/19 23:44 POC ABG O2 Sat 100 02/18/19 23:44 PT/INR, D-dimer PT 13.1 Sec. (12.2-14.9) 03/01/19 06:41 INR 1.00 (0.87-1.13) 03/01/19 06:41 Abnormal lab findings: Abnormal Labs 02/18/19 02/18/19 02/18/19 23:11 23:11 23:11 WBC 14.5 H RBC 3.33 L Hgb 8.3 L Hct 26.2 L MCV MCH 25 L RDW 19.4 H Plt Count 582 H Lymph % (Auto) [place] % (Auto) 10.5 H [place] # 1.5 H Baso # 0.2 H Seg Neutrophils % 73.2 H Seg Neuts % (Manual) Lymphocytes % (Manual) Monocytes % (Manual) Seg Neutrophils # 10.6 H Seg Neutrophils # Man Monocytes # (Manual) Basophils # (Manual) PT INR POC ABG pO2 Sodium 136 L Potassium Chloride Carbon Dioxide 18 L BUN 26 H Creatinine 1.3 H Glucose 118 H POC Glucose Calcium Magnesium TIBC Ferritin Troponin T NT-Pro-B Natriuret Pep 4784 H Albumin 2.4 L HDL Cholesterol Folate Fluid Glucose Fluid Total Protein 02/18/19 02/19/19 02/19/19 23:44 08:09 12:03 WBC RBC Hgb Hct MCV MCH RDW Plt Count Lymph % (Auto) [place] % (Auto) [place] # Baso # Seg Neutrophils % Seg Neuts % (Manual) Lymphocytes % (Manual) Monocytes % (Manual) Seg Neutrophils # Seg Neutrophils # Man Monocytes # (Manual) Basophils # (Manual) PT INR POC ABG pO2 253 H Sodium Potassium Chloride Carbon Dioxide BUN Creatinine Glucose POC Glucose 224 H 187 H Calcium Magnesium TIBC Ferritin Troponin T NT-Pro-B Natriuret Pep Albumin HDL Cholesterol Folate Fluid Glucose Fluid Total Protein 02/19/19 02/19/19 02/19/19 14:40 17:49 18:22 WBC RBC Hgb Hct MCV MCH RDW Plt Count Lymph % (Auto) [place] % (Auto) [place] # Baso # Seg Neutrophils % Seg Neuts % (Manual) Lymphocytes % (Manual) Monocytes % (Manual) Seg Neutrophils # Seg Neutrophils # Man Monocytes # (Manual) Basophils # (Manual) PT 15.7 H INR 1.27 H POC ABG pO2 Sodium Potassium Chloride Carbon Dioxide BUN Creatinine Glucose POC Glucose 239 H Calcium Magnesium TIBC Ferritin Troponin T NT-Pro-B Natriuret Pep Albumin HDL Cholesterol Folate Fluid Glucose 247 H Fluid Total Protein 3.3 L 02/19/19 02/20/19 02/20/19 22:24 04:45 04:45 WBC 18.6 H RBC 3.07 L Hgb 7.4 L Hct 23.8 L MCV 78 L MCH 24 L RDW 19.4 H Plt Count 596 H Lymph % (Auto) 8.8 L [place] % (Auto) [place] # 1.0 H Baso # Seg Neutrophils % 85.6 H Seg Neuts % (Manual) Lymphocytes % (Manual) Monocytes % (Manual) Seg Neutrophils # 15.9 H Seg Neutrophils # Man Monocytes # (Manual) Basophils # (Manual) PT INR POC ABG pO2 Sodium Potassium 5.2 H D Chloride Carbon Dioxide 19 L BUN 36 H Creatinine 1.6 H Glucose POC Glucose 170 H Calcium Magnesium TIBC Ferritin Troponin T NT-Pro-B Natriuret Pep Albumin HDL Cholesterol Folate Fluid Glucose Fluid Total Protein 02/20/19 02/20/19 02/20/19 11:17 15:39 20:37 WBC RBC Hgb Hct MCV MCH RDW Plt Count Lymph % (Auto) [place] % (Auto) [place] # Baso # Seg Neutrophils % Seg Neuts % (Manual) Lymphocytes % (Manual) Monocytes % (Manual) Seg Neutrophils # Seg Neutrophils # Man Monocytes # (Manual) Basophils # (Manual) PT INR POC ABG pO2 Sodium Potassium Chloride Carbon Dioxide BUN Creatinine Glucose POC Glucose 160 H 147 H 146 H Calcium Magnesium TIBC Ferritin Troponin T NT-Pro-B Natriuret Pep Albumin HDL Cholesterol Folate Fluid Glucose Fluid Total Protein 02/21/19 02/21/19 02/21/19 06:34 07:39 11:45 WBC RBC Hgb Hct MCV MCH RDW Plt Count Lymph % (Auto) [place] % (Auto) [place] # Baso # Seg Neutrophils % Seg Neuts % (Manual) Lymphocytes % (Manual) Monocytes % (Manual) Seg Neutrophils # Seg Neutrophils # Man Monocytes # (Manual) Basophils # (Manual) PT INR POC ABG pO2 Sodium 135 L Potassium 5.3 H Chloride Carbon Dioxide 17 L BUN 36 H Creatinine 1.5 H Glucose 179 H POC Glucose 184 H 268 H Calcium Magnesium TIBC Ferritin Troponin T NT-Pro-B Natriuret Pep Albumin HDL Cholesterol Folate Fluid Glucose Fluid Total Protein 02/21/19 02/21/19 02/21/19 11:59 15:41 20:43 WBC 13.6 H RBC 3.19 L Hgb 8.0 L Hct 24.7 L MCV 78 L MCH 25 L RDW 19.4 H Plt Count 614 H Lymph % (Auto) [place] % (Auto) [place] # Baso # Seg Neutrophils % Seg Neuts % (Manual) Lymphocytes % (Manual) Monocytes % (Manual) Seg Neutrophils # Seg Neutrophils # Man Monocytes # (Manual) Basophils # (Manual) PT INR POC ABG pO2 Sodium Potassium Chloride Carbon Dioxide BUN Creatinine Glucose POC Glucose 278 H 251 H Calcium Magnesium TIBC Ferritin Troponin T NT-Pro-B Natriuret Pep Albumin HDL Cholesterol Folate Fluid Glucose Fluid Total Protein 02/22/19 02/22/19 02/22/19 00:44 08:04 12:24 WBC RBC Hgb Hct MCV MCH RDW Plt Count Lymph % (Auto) [place] % (Auto) [place] # Baso # Seg Neutrophils % Seg Neuts % (Manual) Lymphocytes % (Manual) Monocytes % (Manual) Seg Neutrophils # Seg Neutrophils # Man Monocytes # (Manual) Basophils # (Manual) PT INR POC ABG pO2 Sodium 133 L Potassium Chloride Carbon Dioxide 19 L BUN 37 H Creatinine 1.5 H Glucose 139 H POC Glucose 124 H 174 H Calcium 8.1 L Magnesium TIBC Ferritin Troponin T NT-Pro-B Natriuret Pep Albumin HDL Cholesterol Folate Fluid Glucose Fluid Total Protein 02/22/19 02/22/19 02/22/19 13:15 15:56 21:30 WBC RBC Hgb Hct MCV MCH RDW Plt Count Lymph % (Auto) [place] % (Auto) [place] # Baso # Seg Neutrophils % Seg Neuts % (Manual) Lymphocytes % (Manual) Monocytes % (Manual) Seg Neutrophils # Seg Neutrophils # Man Monocytes # (Manual) Basophils # (Manual) PT INR POC ABG pO2 Sodium Potassium Chloride Carbon Dioxide BUN Creatinine Glucose POC Glucose 359 H 398 H Calcium Magnesium TIBC Ferritin Troponin T 0.208 H* D NT-Pro-B Natriuret Pep Albumin HDL Cholesterol 72 H Folate Fluid Glucose Fluid Total Protein 02/23/19 02/23/19 02/23/19 06:26 06:49 07:43 WBC RBC Hgb Hct MCV MCH RDW Plt Count Lymph % (Auto) [place] % (Auto) [place] # Baso # Seg Neutrophils % Seg Neuts % (Manual) Lymphocytes % (Manual) Monocytes % (Manual) Seg Neutrophils # Seg Neutrophils # Man Monocytes # (Manual) Basophils # (Manual) PT INR POC ABG pO2 Sodium 132 L Potassium Chloride Carbon Dioxide 20 L BUN 43 H Creatinine 1.3 H Glucose 163 H POC Glucose 183 H Calcium 8.1 L Magnesium 1.60 L TIBC Ferritin Troponin T 0.173 H* NT-Pro-B Natriuret Pep Albumin HDL Cholesterol Folate Fluid Glucose Fluid Total Protein 02/23/19 02/23/19 02/23/19 12:24 17:09 21:47 WBC RBC Hgb Hct MCV MCH RDW Plt Count Lymph % (Auto) [place] % (Auto) [place] # Baso # Seg Neutrophils % Seg Neuts % (Manual) Lymphocytes % (Manual) Monocytes % (Manual) Seg Neutrophils # Seg Neutrophils # Man Monocytes # (Manual) Basophils # (Manual) PT INR POC ABG pO2 Sodium Potassium Chloride Carbon Dioxide BUN Creatinine Glucose POC Glucose 186 H 245 H 203 H Calcium Magnesium TIBC Ferritin Troponin T NT-Pro-B Natriuret Pep Albumin HDL Cholesterol Folate Fluid Glucose Fluid Total Protein 02/24/19 02/24/19 02/24/19 05:14 05:14 05:14 WBC 20.8 H RBC 2.99 L Hgb 7.4 L Hct 23.8 L MCV MCH 25 L RDW 19.4 H Plt Count 608 H Lymph % (Auto) [place] % (Auto) [place] # Baso # Seg Neutrophils % Seg Neuts % (Manual) 85.0 H Lymphocytes % (Manual) 7.0 L Monocytes % (Manual) 8.0 H Seg Neutrophils # Seg Neutrophils # Man 17.7 H Monocytes # (Manual) 1.7 H Basophils # (Manual) PT 15.1 H INR 1.20 H POC ABG pO2 Sodium Potassium Chloride Carbon Dioxide 19 L BUN 38 H Creatinine Glucose 168 H POC Glucose Calcium 8.0 L Magnesium TIBC Ferritin Troponin T 0.216 H* D NT-Pro-B Natriuret Pep Albumin HDL Cholesterol Folate Fluid Glucose Fluid Total Protein 02/24/19 02/24/19 02/24/19 07:47 11:39 15:48 WBC RBC Hgb Hct MCV MCH RDW Plt Count Lymph % (Auto) [place] % (Auto) [place] # Baso # Seg Neutrophils % Seg Neuts % (Manual) Lymphocytes % (Manual) Monocytes % (Manual) Seg Neutrophils # Seg Neutrophils # Man Monocytes # (Manual) Basophils # (Manual) PT INR POC ABG pO2 Sodium Potassium Chloride Carbon Dioxide BUN Creatinine Glucose POC Glucose 180 H 227 H 234 H Calcium Magnesium TIBC Ferritin Troponin T NT-Pro-B Natriuret Pep Albumin HDL Cholesterol Folate Fluid Glucose Fluid Total Protein 02/24/19 02/25/19 02/25/19 20:56 04:27 04:27 WBC 20.0 H RBC 2.96 L Hgb 7.4 L Hct 23.5 L MCV MCH 25 L RDW 19.4 H Plt Count 575 H Lymph % (Auto) [place] % (Auto) [place] # Baso # Seg Neutrophils % Seg Neuts % (Manual) Lymphocytes % (Manual) Monocytes % (Manual) Seg Neutrophils # Seg Neutrophils # Man Monocytes # (Manual) Basophils # (Manual) PT INR POC ABG pO2 Sodium 135 L Potassium Chloride Carbon Dioxide 19 L BUN 32 H Creatinine Glucose 61 L POC Glucose 310 H Calcium 8.3 L Magnesium TIBC Ferritin Troponin T NT-Pro-B Natriuret Pep Albumin HDL Cholesterol Folate Fluid Glucose Fluid Total Protein 02/25/19 02/25/19 02/25/19 07:49 11:47 11:47 WBC RBC Hgb Hct MCV MCH RDW Plt Count Lymph % (Auto) [place] % (Auto) [place] # Baso # Seg Neutrophils % Seg Neuts % (Manual) Lymphocytes % (Manual) Monocytes % (Manual) Seg Neutrophils # Seg Neutrophils # Man Monocytes # (Manual) Basophils # (Manual) PT INR POC ABG pO2 Sodium Potassium Chloride Carbon Dioxide BUN Creatinine Glucose POC Glucose 112 H Calcium Magnesium TIBC 120 L Ferritin 893.3 H Troponin T NT-Pro-B Natriuret Pep Albumin HDL Cholesterol Folate Fluid Glucose Fluid Total Protein 02/25/19 02/25/19 02/25/19 11:49 17:26 21:23 WBC RBC Hgb Hct MCV MCH RDW Plt Count Lymph % (Auto) [place] % (Auto) [place] # Baso # Seg Neutrophils % Seg Neuts % (Manual) Lymphocytes % (Manual) Monocytes % (Manual) Seg Neutrophils # Seg Neutrophils # Man Monocytes # (Manual) Basophils # (Manual) PT INR POC ABG pO2 Sodium Potassium Chloride Carbon Dioxide BUN Creatinine Glucose POC Glucose 174 H 334 H 233 H Calcium Magnesium TIBC Ferritin Troponin T NT-Pro-B Natriuret Pep Albumin HDL Cholesterol Folate Fluid Glucose Fluid Total Protein 02/26/19 02/26/19 02/26/19 05:23 05:23 07:34 WBC 24.3 H RBC 3.07 L Hgb 7.5 L Hct 24.2 L MCV MCH 25 L RDW 19.5 H Plt Count 603 H Lymph % (Auto) [place] % (Auto) [place] # Baso # Seg Neutrophils % Seg Neuts % (Manual) Lymphocytes % (Manual) Monocytes % (Manual) Seg Neutrophils # Seg Neutrophils # Man Monocytes # (Manual) Basophils # (Manual) PT INR POC ABG pO2 Sodium 132 L Potassium Chloride Carbon Dioxide 20 L BUN 33 H Creatinine 1.3 H Glucose 165 H POC Glucose 177 H Calcium 8.2 L Magnesium TIBC Ferritin Troponin T NT-Pro-B Natriuret Pep Albumin HDL Cholesterol Folate Fluid Glucose Fluid Total Protein 02/26/19 02/26/19 02/26/19 11:03 15:46 21:20 WBC RBC Hgb Hct MCV MCH RDW Plt Count Lymph % (Auto) [place] % (Auto) [place] # Baso # Seg Neutrophils % Seg Neuts % (Manual) Lymphocytes % (Manual) Monocytes % (Manual) Seg Neutrophils # Seg Neutrophils # Man Monocytes # (Manual) Basophils # (Manual) PT INR POC ABG pO2 Sodium Potassium Chloride Carbon Dioxide BUN Creatinine Glucose POC Glucose 141 H 269 H 353 H Calcium Magnesium TIBC Ferritin Troponin T NT-Pro-B Natriuret Pep Albumin HDL Cholesterol Folate Fluid Glucose Fluid Total Protein 02/27/19 02/27/19 02/27/19 03:56 08:17 12:02 WBC RBC Hgb Hct MCV MCH RDW Plt Count Lymph % (Auto) [place] % (Auto) [place] # Baso # Seg Neutrophils % Seg Neuts % (Manual) Lymphocytes % (Manual) Monocytes % (Manual) Seg Neutrophils # Seg Neutrophils # Man Monocytes # (Manual) Basophils # (Manual) PT INR POC ABG pO2 Sodium 133 L Potassium Chloride 97.2 L Carbon Dioxide 21 L BUN 33 H Creatinine 1.5 H Glucose 170 H POC Glucose 136 H 163 H Calcium 8.0 L Magnesium TIBC Ferritin Troponin T NT-Pro-B Natriuret Pep Albumin HDL Cholesterol Folate Fluid Glucose Fluid Total Protein 02/27/19 02/27/19 02/28/19 17:02 21:17 07:36 WBC RBC Hgb Hct MCV MCH RDW Plt Count Lymph % (Auto) [place] % (Auto) [place] # Baso # Seg Neutrophils % Seg Neuts % (Manual) Lymphocytes % (Manual) Monocytes % (Manual) Seg Neutrophils # Seg Neutrophils # Man Monocytes # (Manual) Basophils # (Manual) PT INR POC ABG pO2 Sodium 132 L Potassium Chloride Carbon Dioxide 18 L BUN 33 H Creatinine Glucose 112 H POC Glucose 278 H 294 H Calcium 8.3 L Magnesium TIBC Ferritin Troponin T NT-Pro-B Natriuret Pep Albumin HDL Cholesterol Folate Fluid Glucose Fluid Total Protein 02/28/19 02/28/19 02/28/19 07:36 08:16 12:08 WBC 22.5 H RBC 3.17 L Hgb 8.1 L Hct 25.1 L MCV MCH 26 L RDW 20.3 H Plt Count 575 H Lymph % (Auto) [place] % (Auto) [place] # Baso # Seg Neutrophils % Seg Neuts % (Manual) 75.0 H Lymphocytes % (Manual) Monocytes % (Manual) Seg Neutrophils # Seg Neutrophils # Man 16.9 H Monocytes # (Manual) Basophils # (Manual) 0.2 H PT INR POC ABG pO2 Sodium Potassium Chloride Carbon Dioxide BUN Creatinine Glucose POC Glucose 117 H 225 H Calcium Magnesium TIBC Ferritin Troponin T NT-Pro-B Natriuret Pep Albumin HDL Cholesterol Folate Fluid Glucose Fluid Total Protein 02/28/19 02/28/19 03/01/19 17:01 20:54 06:41 WBC 19.9 H RBC 2.90 L Hgb 7.3 L Hct 22.8 L MCV MCH 25 L RDW 20.8 H Plt Count 521 H Lymph % (Auto) [place] % (Auto) 9.4 H [place] # 1.9 H Baso # Seg Neutrophils % 75.6 H Seg Neuts % (Manual) Lymphocytes % (Manual) Monocytes % (Manual) Seg Neutrophils # 15.0 H Seg Neutrophils # Man Monocytes # (Manual) Basophils # (Manual) PT INR POC ABG pO2 Sodium Potassium Chloride Carbon Dioxide BUN Creatinine Glucose POC Glucose 276 H 270 H Calcium Magnesium TIBC Ferritin Troponin T NT-Pro-B Natriuret Pep Albumin HDL Cholesterol Folate Fluid Glucose Fluid Total Protein 03/01/19 03/01/19 03/01/19 06:41 09:27 12:09 WBC RBC Hgb Hct MCV MCH RDW Plt Count Lymph % (Auto) [place] % (Auto) [place] # Baso # Seg Neutrophils % Seg Neuts % (Manual) Lymphocytes % (Manual) Monocytes % (Manual) Seg Neutrophils # Seg Neutrophils # Man Monocytes # (Manual) Basophils # (Manual) PT INR POC ABG pO2 Sodium Potassium Chloride Carbon Dioxide 20 L BUN 35 H Creatinine 1.4 H Glucose POC Glucose 148 H Calcium Magnesium TIBC Ferritin Troponin T NT-Pro-B Natriuret Pep Albumin HDL Cholesterol Folate 5.97 L Fluid Glucose Fluid Total Protein 03/01/19 03/01/19 03/02/19 17:35 21:47 07:36 WBC 20.8 H RBC 3.18 L Hgb 8.0 L Hct 25.0 L MCV MCH 25 L RDW 20.8 H Plt Count 535 H Lymph % (Auto) [place] % (Auto) [place] # Baso # Seg Neutrophils % Seg Neuts % (Manual) Lymphocytes % (Manual) Monocytes % (Manual) Seg Neutrophils # Seg Neutrophils # Man Monocytes # (Manual) Basophils # (Manual) PT INR POC ABG pO2 Sodium Potassium Chloride Carbon Dioxide BUN Creatinine Glucose POC Glucose 362 H 310 H Calcium Magnesium TIBC Ferritin Troponin T NT-Pro-B Natriuret Pep Albumin HDL Cholesterol Folate Fluid Glucose Fluid Total Protein 03/02/19 03/02/19 07:36 08:03 WBC RBC Hgb Hct MCV MCH RDW Plt Count Lymph % (Auto) [place] % (Auto) [place] # Baso # Seg Neutrophils % Seg Neuts % (Manual) Lymphocytes % (Manual) Monocytes % (Manual) Seg Neutrophils # Seg Neutrophils # Man Monocytes # (Manual) Basophils # (Manual) PT INR POC ABG pO2 Sodium Potassium Chloride Carbon Dioxide 20 L BUN 36 H Creatinine Glucose 151 H POC Glucose 143 H Calcium Magnesium TIBC Ferritin Troponin T NT-Pro-B Natriuret Pep Albumin HDL Cholesterol Folate Fluid Glucose Fluid Total Protein Chest x-ray: report reviewed, image reviewed CT scan - chest: report reviewed, image reviewed
--- NOTE | 2019-03-02 17:52 | XRay Report ---
CHEST 1 VIEW INDICATION / CLINICAL INFORMATION: left lung mass, recent CT biopsy. COMPARISON: 02/26/2019 FINDINGS: SUPPORT DEVICES: None. HEART / MEDIASTINUM: No significant abnormality. LUNGS / PLEURA: Increased density is developed in the left upper lung in addition to the already pres ent opacity in the left lower lung No pneumothorax. ADDITIONAL FINDINGS: No significant additional findings. IMPRESSION: Diffuse parenchymal density is now seen throughout the entire left lung with new density in the left upper lung since prior examination dated 02/26/2019 Signer Name: Jeffery Rothman MD FACR Signed: 03/02/2019 5:48 PM Workstation Name: [id number]
[2019-03-03 04:33] LABS: Basophils % (Auto) 0.2 % (0.0-1.8); Eosinophils % (Auto) 0.1 % (0.0-4.3); Hematocrit 22.6 % (30.3-42.9); Hemoglobin 7.2 gm/dl (10.1-14.3); Lymphocytes # (Auto) 1.3 K/mm3 (1.2-5.4); Lymphocytes % (Auto) 8.3 % (13.4-35.0); Mean Corpuscular HGB Conc 32 % (30-34); Mean Corpuscular Volume 79 fl (79-97); Monocytes # (Auto) 1.6 K/mm3 (0.0-0.8); Monocytes % (Auto) 10.2 % (0.0-7.3); Platelet Count 482 K/mm3 (140-440); Red Blood Count 2.85 M/mm3 (3.65-5.03)
[2019-03-03 04:39] LABS: Red Cell Distribution Width 20.3 % (13.2-15.2)
[2019-03-03 05:05] LABS: Calcium 8.3 mg/dL (8.4-10.2)
--- NOTE | 2019-03-03 07:43 | Hem/Onc Progress Note ---
Assessment and Plan 1. Possible squamous cell carcinoma in a patient with history of smoking, lung cavitation, pleural effusion. There is a plan for CT-guided biopsy. More tissue will help getting better marker testing for oral targeting medication usage. 2. History of chest pain, shortness of breath, hemoptysis. 3. Pleural effusion. 4. Heart failure. 5. Renal impairment. 6. Coronary artery disease. 7. Cardiomyopathy. 8. Hypertension. 9. Anemia. 10. Thrombocytosis. We will investigate for same and follow the patient. Lung bx done - prelim - cancer + anemia - low folate - replace - ? bleeding as a cause OP follow up for the cancer d/w dr rader - Patient Problems (1) Lung cancer Current Visit: Yes Status: Suspected Subjective Date of service: 03/03/19 Principal diagnosis: lung ca Interval history: s/p bx Objective - Exam Narrative Exam: Pain - none General appearance - alert Performance status complete dependence Eyes - no icterus ENT - no bleeding LNs cervical not palpable Neck - no LN Respiratory Normal Breath sounds - CTA anteriorly CVS S1 S2 + Extremities no edema General GI Soft Rectal deferred female - deferred Skin warm Musculoskeletal - moving limbs Neurologically alert awake - Constitutional Vitals: Last Vital Signs Temp 98.2 F 03/03/19 04:40 Pulse 69 03/03/19 04:40 Resp 18 03/03/19 04:40 BP 138/48 03/03/19 04:40 Pulse Ox 97 03/03/19 04:40 - Labs Lab Results: Laboratory Results - last 24 hr 03/02/19 03/02/19 03/02/19 07:36 07:36 08:03 WBC 20.8 H RBC 3.18 L Hgb 8.0 L Hct 25.0 L MCV 79 MCH 25 L MCHC 32 RDW 20.8 H Plt Count 535 H Lymph % (Auto) Callahan % (Auto) Eos % (Auto) Baso % (Auto) Lymph # Callahan # Eos # Baso # Seg Neutrophils % Seg Neutrophils # Sodium 138 Potassium 4.0 Chloride 101.0 Carbon Dioxide 20 L Anion Gap 21 BUN 36 H Creatinine 1.2 Estimated GFR 53 BUN/Creatinine Ratio 30 Glucose 151 H POC Glucose 143 H Calcium 8.4 Magnesium Lactate Dehydrogenase 03/02/19 03/02/19 03/03/19 16:03 20:59 03:21 WBC 15.8 H RBC 2.85 L Hgb 7.2 L Hct 22.6 L MCV 79 MCH 25 L MCHC 32 RDW 20.3 H Plt Count 482 H Lymph % (Auto) 8.3 L Callahan % (Auto) 10.2 H Eos % (Auto) 0.1 Baso % (Auto) 0.2 Lymph # 1.3 Callahan # 1.6 H Eos # 0.0 Baso # 0.0 Seg Neutrophils % 81.2 H Seg Neutrophils # 12.8 H Sodium Potassium Chloride Carbon Dioxide Anion Gap BUN Creatinine Estimated GFR BUN/Creatinine Ratio Glucose POC Glucose 375 H 352 H Calcium Magnesium Lactate Dehydrogenase 03/03/19 03:21 WBC RBC Hgb Hct MCV MCH MCHC RDW Plt Count Lymph % (Auto) Callahan % (Auto) Eos % (Auto) Baso % (Auto) Lymph # Callahan # Eos # Baso # Seg Neutrophils % Seg Neutrophils # Sodium 134 L Potassium 4.5 Chloride 98.0 Carbon Dioxide 23 Anion Gap 18 BUN 38 H Creatinine 1.5 H Estimated GFR 41 BUN/Creatinine Ratio 25 Glucose 87 POC Glucose Calcium 8.3 L Magnesium 1.80 Lactate Dehydrogenase 202 H Medications & Allergies - Medications Allergies/Adverse Reactions: Allergies ibuprofen Allergy (Verified 02/18/19 23:29) Unknown Penicillins Allergy (Verified 02/18/19 23:29) Unknown Home Medications: Home Medications Medication Instructions Recorded Confirmed Last Taken Type Allopurinol 100 mg PO DAILY 12/26/18 02/19/19 Unknown History Cilostazol 100 mg PO BID 12/26/18 02/19/19 Unknown History Ferrous Sulfate 325 mg PO DAILY 12/26/18 02/19/19 Unknown History Ipratropium (Nf) [Atrovent HFA 2 puff IH Q6HR PRN #1 inha 01/11/19 02/19/19 Unknown Rx 17MCG/PUFF] AtorvaSTATin [Lipitor] 40 mg PO QHS 02/09/19 02/19/19 Unknown History Pantoprazole [Protonix TAB] 40 mg PO QDAY #30 tablet 02/16/19 02/19/19 Unknown Rx hydrALAZINE [Apresoline TAB] 25 mg PO Q8HR #90 tablet 02/16/19 02/19/19 Unknown Rx Furosemide [Lasix TAB] 20 mg PO QDAY tablet 03/01/19 Unknown Rx ISOSORBIDE MONOnitrate [Imdur ER] 120 mg PO QDAY tablet 03/01/19 Unknown Rx Insulin NPH/Regular [NovoLIN 70/30] 10 unit SUB-Q BIDDIAB units 03/01/19 Unknown Rx Insulin Regular, Human [HumuLIN R] 0 units SUB-Q ACHS units 03/01/19 Unknown Rx Metoprolol [Lopressor TAB] 50 mg PO BID tablet 03/01/19 Unknown Rx Active Medications: Generic Name Dose Route Start Last Admin Trade Name Freq PRN Reason Stop Dose Admin Acetaminophen 650 mg 02/20/19 17:19 03/01/19 08:03 Tylenol PO 650 mg Q6H PRN Administration Pain, Mild (1-3) Albuterol 2.5 mg 02/20/19 23:45 02/26/19 14:06 Proventil IH 2.5 mg Q3HRT PRN Administration Shortness Of Breath Allopurinol 100 mg 02/21/19 12:15 03/02/19 10:18 Zyloprim PO 100 mg QDAY MAYLIN Administration Aspirin 325 mg 02/23/19 10:00 03/01/19 10:35 Ecotrin PO Not Given QDAY MAYLIN Atorvastatin Calcium 40 mg 02/21/19 22:00 03/02/19 23:12 Lipitor PO 40 mg QHS MAYLIN Administration Cilostazol 100 mg 02/21/19 22:00 03/02/19 23:11 Pletal PO 100 mg BID MAYLIN Administration Dextrose 0 ml 02/19/19 03:08 D50w (25gm) Syringe IV Q30MIN PRN Hypoglycemia Protocol Ferrous Sulfate 325 mg 02/22/19 10:00 03/02/19 13:03 Feosol PO 325 mg QDAY MAYLIN Administration Folic Acid 1 mg 03/02/19 10:00 03/02/19 13:03 Folvite PO 1 mg QDAY MAYLIN Administration Furosemide 20 mg 02/27/19 10:00 03/02/19 13:03 Lasix PO 20 mg QDAY MAYLIN Administration Hydralazine HCl 100 mg 02/28/19 10:00 03/02/19 23:11 Apresoline PO 100 mg BID MAYLIN Administration Insulin Human Isoph/Insulin Regular 10 unit 02/25/19 08:00 03/02/19 18:18 Humulin 70/30 SUB-Q 10 unit BIDDIAB MAYLIN Administration Insulin Human Regular 0 units 02/19/19 07:30 03/02/19 23:12 Humulin R SUB-Q 8 units ACHS MAYLIN Administration Protocol Isosorbide Mononitrate 120 mg 02/28/19 07:47 03/02/19 10:16 Imdur PO 120 mg QDAY MAYLIN Administration Magnesium Hydroxide 30 ml 02/19/19 03:08 Milk Of Magnesia PO Q4H PRN Constipation Magnesium Oxide 400 mg 02/23/19 11:00 03/02/19 23:11 Mag-Ox PO 400 mg BID MAYLIN Administration Methylprednisolone Sodium Succinate 40 mg 02/22/19 10:00 03/02/19 10:19 Solu-Medrol IV 40 mg Q24HR MAYLIN Administration Metoprolol Tartrate 50 mg 02/21/19 22:00 03/02/19 23:11 Metoprolol PO 50 mg BID MAYLIN Administration Morphine Sulfate 2 mg 02/19/19 03:08 02/21/19 03:33 Morphine IV 2 mg Q4H PRN Administration Pain, Moderate (4-6) Pantoprazole Sodium 40 mg 02/22/19 10:00 03/02/19 13:03 Protonix PO 40 mg QDAY MAYLIN Administration Sodium Chloride 10 ml 02/19/19 10:00 03/02/19 23:12 Sodium Chloride Flush Syringe 10 Ml IV 10 ml BID MAYLIN Administration Sodium Chloride 10 ml 02/19/19 03:08 Sodium Chloride Flush Syringe 10 Ml IV PRN PRN LINE FLUSH
--- NOTE | 2019-03-03 09:00 | Progress Note ---
Assessment and Plan 1. Acute kidney injury: Mild NEELIMA superimposed on CKD stage 3, suspect vasomotor insult. Overall renal function is stable with some fluctuation. Monitor renal function. Avoid nephrotoxic agents. Meds dosage based on GFR. 2. FEN: Hyperkalemia, improved. Metabolic acidosis, improved. Monitor lytes. 3. Acute hypoxic respiratory failure: Followed by Pulmonary. 4. Left lung cavitating lung lesion and L pleural effusion: S/p thoracentesis. 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 S/p CT guided biopsy 03/02. 5. Decompensated CHF: Continue Lasix. 6. CAD: Followed by Cards. 7. DM-2. 8. Hypertension: Monitor BP. 9. Anemia: POA. Followed by GI. Examination: General appearance: well-developed, well-nourished, appears stated age, no distress HEENT: ATNC, SKYE, mucous membranes moist, hearing intact, vision intact Neck: neck supple, trachea midline Respiratory: ctab Heart: regular, S1S2, no murmurs Gastrointestinal: normoactive bowel sounds, not tender Integumentary: no rash, warm and dry Neurologic: no focal deficit, no asterixis Ext: trace LE edema noted Subjective Date of service: 03/03/19 Principal diagnosis: lung ca Interval history: Patient was seen and examined at the bedside. Doing ok. Objective - Vital Signs Vital signs: Vital Signs - 12hr 03/03/19 03/03/19 03/03/19 00:14 04:40 07:46 Temperature 98.2 F 98.2 F 97.9 F Pulse Rate 63 69 76 Respiratory 20 18 18 Rate Blood Pressure 136/46 138/48 140/47 O2 Sat by Pulse 95 97 96 Oximetry - Lab 03/03/19 03:21 03/03/19 03:21 Most recent lab results Calcium 8.3 mg/dL (8.4-10.2) L 03/03/19 03:21 Phosphorus 2.70 mg/dL (2.5-4.5) 02/23/19 06:26 Magnesium 1.80 mg/dL (1.7-2.3) 03/03/19 03:21 Medications & Allergies - Medications Allergies/Adverse Reactions: Allergies ibuprofen Allergy (Verified 02/18/19 23:29) Unknown Penicillins Allergy (Verified 02/18/19 23:29) Unknown Home Medications: Home Medications Medication Instructions Recorded Confirmed Last Taken Type Allopurinol 100 mg PO DAILY 12/26/18 02/19/19 Unknown History Cilostazol 100 mg PO BID 12/26/18 02/19/19 Unknown History Ferrous Sulfate 325 mg PO DAILY 12/26/18 02/19/19 Unknown History Ipratropium (Nf) [Atrovent HFA 2 puff IH Q6HR PRN #1 inha 01/11/19 02/19/19 Unknown Rx 17MCG/PUFF] AtorvaSTATin [Lipitor] 40 mg PO QHS 02/09/19 02/19/19 Unknown History Pantoprazole [Protonix TAB] 40 mg PO QDAY #30 tablet 02/16/19 02/19/19 Unknown Rx hydrALAZINE [Apresoline TAB] 25 mg PO Q8HR #90 tablet 02/16/19 02/19/19 Unknown Rx Furosemide [Lasix TAB] 20 mg PO QDAY tablet 03/01/19 Unknown Rx ISOSORBIDE MONOnitrate [Imdur ER] 120 mg PO QDAY tablet 03/01/19 Unknown Rx Insulin NPH/Regular [NovoLIN 70/30] 10 unit SUB-Q BIDDIAB units 03/01/19 Unknown Rx Insulin Regular, Human [HumuLIN R] 0 units SUB-Q ACHS units 03/01/19 Unknown Rx Metoprolol [Lopressor TAB] 50 mg PO BID tablet 03/01/19 Unknown Rx Active Medications: Generic Name Dose Route Start Last Admin Trade Name Freq PRN Reason Stop Dose Admin Acetaminophen 650 mg 02/20/19 17:19 03/01/19 08:03 Tylenol PO 650 mg Q6H PRN Administration Pain, Mild (1-3) Albuterol 2.5 mg 02/20/19 23:45 02/26/19 14:06 Proventil IH 2.5 mg Q3HRT PRN Administration Shortness Of Breath Allopurinol 100 mg 02/21/19 12:15 03/02/19 10:18 Zyloprim PO 100 mg QDAY MAYLIN Administration Aspirin 325 mg 02/23/19 10:00 03/01/19 10:35 Ecotrin PO Not Given QDAY MAYLIN Atorvastatin Calcium 40 mg 02/21/19 22:00 03/02/19 23:12 Lipitor PO 40 mg QHS MAYLIN Administration Cilostazol 100 mg 02/21/19 22:00 03/02/19 23:11 Pletal PO 100 mg BID MAYLIN Administration Dextrose 0 ml 02/19/19 03:08 D50w (25gm) Syringe IV Q30MIN PRN Hypoglycemia Protocol Ferrous Sulfate 325 mg 02/22/19 10:00 03/02/19 13:03 Feosol PO 325 mg QDAY MAYLIN Administration Folic Acid 1 mg 03/02/19 10:00 03/02/19 13:03 Folvite PO 1 mg QDAY MAYLIN Administration Furosemide 20 mg 02/27/19 10:00 03/02/19 13:03 Lasix PO 20 mg QDAY MAYLIN Administration Hydralazine HCl 100 mg 02/28/19 10:00 03/02/19 23:11 Apresoline PO 100 mg BID MAYLIN Administration Insulin Human Isoph/Insulin Regular 10 unit 02/25/19 08:00 03/02/19 18:18 Humulin 70/30 SUB-Q 10 unit BIDDIAB MAYLIN Administration Insulin Human Regular 0 units 02/19/19 07:30 03/02/19 23:12 Humulin R SUB-Q 8 units ACHS MAYLIN Administration Protocol Isosorbide Mononitrate 120 mg 02/28/19 07:47 03/02/19 10:16 Imdur PO 120 mg QDAY MAYLIN Administration Magnesium Hydroxide 30 ml 02/19/19 03:08 Milk Of Magnesia PO Q4H PRN Constipation Magnesium Oxide 400 mg 02/23/19 11:00 03/02/19 23:11 Mag-Ox PO 400 mg BID MAYLIN Administration Methylprednisolone Sodium Succinate 40 mg 02/22/19 10:00 03/02/19 10:19 Solu-Medrol IV 40 mg Q24HR MAYLIN Administration Metoprolol Tartrate 50 mg 02/21/19 22:00 03/02/19 23:11 Metoprolol PO 50 mg BID MAYLIN Administration Morphine Sulfate 2 mg 02/19/19 03:08 02/21/19 03:33 Morphine IV 2 mg Q4H PRN Administration Pain, Moderate (4-6) Pantoprazole Sodium 40 mg 02/22/19 10:00 03/02/19 13:03 Protonix PO 40 mg QDAY MAYLIN Administration Sodium Chloride 10 ml 02/19/19 10:00 03/02/19 23:12 Sodium Chloride Flush Syringe 10 Ml IV 10 ml BID MAYLIN Administration Sodium Chloride 10 ml 02/19/19 03:08 Sodium Chloride Flush Syringe 10 Ml IV PRN PRN LINE FLUSH
[2019-03-03] MEDS ORDERED: LISINOPRIL 10 MG TAB PO SCH (10:00)
[2019-03-03] MEDS: ACETAMINOPHEN 325 MG TAB PO PRN (10:26)
[2019-03-03] MEDS: hydrALAZINE 25 MG TAB PO SCH (10:28)
[2019-03-03] MEDS: allopurinoL 100 MG TAB PO SCH (10:28)
[2019-03-03] MEDS: CILOSTAZOL 100 MG TAB PO SCH (10:28)
[2019-03-03] MEDS: FERROUS SULFATE 325 MG TAB PO SCH (10:28)
[2019-03-03] MEDS: PANTOPRAZOLE 40 MG TAB PO SCH (10:29)
[2019-03-03] MEDS: FOLIC ACID 1 MG TAB PO SCH (10:29)
[2019-03-03] MEDS: METOPROLOL TARTRATE 50 MG TAB PO SCH (10:29)
[2019-03-03] MEDS: FUROSEMIDE 40 MG TAB PO SCH (10:29)
[2019-03-03] MEDS: MAGNESIUM OXIDE 400 MG TAB PO SCH (10:29)
[2019-03-03] MEDS: methylPREDNISolone Sod Succinate 40 MG/1 ML INJ IV SCH (10:30)
[2019-03-03] MEDS: INSULIN NPH/REGULAR 70/30 INJ SUB-Q SCH (10:30)
[2019-03-03] MEDS: INSULIN REGULAR, HUMAN 100 UNITS/1 ML SUB-Q SCH ×2 (10:31→15:01)
--- NOTE | 2019-03-03 10:32 | Progress Note ---
Assessment and Plan - Patient Problems (1) NEELIMA (acute kidney injury) Current Visit: Yes Status: Acute (2) Acute respiratory failure with hypoxia Current Visit: Yes Status: Acute (3) CHF (congestive heart failure) Current Visit: Yes Status: Acute Qualifiers: Heart failure type: unspecified Heart failure chronicity: unspecified Qualified Code(s): I50.9 - Heart failure, unspecified (4) Lesion of lung Current Visit: Yes Status: Acute (5) Pleural effusion Current Visit: Yes Status: Acute (6) Polycythemia Current Visit: Yes Status: Acute (7) Lung cancer Current Visit: Yes Status: Suspected Subjective Principal diagnosis: lung ca Interval history: awake, no sob Objective Vital Signs - 12hr 03/03/19 03/03/19 03/03/19 00:14 04:40 07:46 Temperature 98.2 F 98.2 F 97.9 F Pulse Rate 63 69 76 Respiratory 20 18 18 Rate Blood Pressure 136/46 138/48 140/47 O2 Sat by Pulse 95 97 96 Oximetry Constitutional: no acute distress, alert Eyes: non-icteric ENT: oropharynx moist Neck: supple Effort: normal Ascultation: Right: clear, Bilateral: diminished breath sounds (bases) Cardiovascular: regular rate and rhythm (no mrg) Gastrointestinal: normoactive bowel sounds, soft, non-tender, non-distended Integumentary: normal Extremities: no cyanosis, no edema, pink and warm Neurologic: normal mental status, non-focal exam, pupils equal and round Psychiatric: mood appropriate, affect normal CBC and BMP: 03/03/19 03:21 03/03/19 03:21 ABG, PT/INR, D-dimer: ABG POC ABG pH 7.377 (7.35-7.45) 02/18/19 23:44 POC ABG pCO2 35.6 (35-45) 02/18/19 23:44 POC ABG pO2 253 (80-105) H 02/18/19 23:44 POC ABG HCO3 20.9 (22-26 mml/L) 02/18/19 23:44 POC ABG Total CO2 22 (23-27mmol/L) 02/18/19 23:44 POC ABG O2 Sat 100 02/18/19 23:44 PT/INR, D-dimer PT 13.1 Sec. (12.2-14.9) 03/01/19 06:41 INR 1.00 (0.87-1.13) 03/01/19 06:41 Abnormal lab findings: Abnormal Labs 02/18/19 02/18/19 02/18/19 23:11 23:11 23:11 WBC 14.5 H RBC 3.33 L Hgb 8.3 L Hct 26.2 L MCV MCH 25 L RDW 19.4 H Plt Count 582 H Lymph % (Auto) [place] % (Auto) 10.5 H [place] # 1.5 H Baso # 0.2 H Seg Neutrophils % 73.2 H Seg Neuts % (Manual) Lymphocytes % (Manual) Monocytes % (Manual) Seg Neutrophils # 10.6 H Seg Neutrophils # Man Monocytes # (Manual) Basophils # (Manual) PT INR POC ABG pO2 Sodium 136 L Potassium Chloride Carbon Dioxide 18 L BUN 26 H Creatinine 1.3 H Glucose 118 H POC Glucose Calcium Magnesium TIBC Ferritin Lactate Dehydrogenase Troponin T NT-Pro-B Natriuret Pep 4784 H Albumin 2.4 L HDL Cholesterol Folate Fluid Glucose Fluid Total Protein 02/18/19 02/19/19 02/19/19 23:44 08:09 12:03 WBC RBC Hgb Hct MCV MCH RDW Plt Count Lymph % (Auto) [place] % (Auto) [place] # Baso # Seg Neutrophils % Seg Neuts % (Manual) Lymphocytes % (Manual) Monocytes % (Manual) Seg Neutrophils # Seg Neutrophils # Man Monocytes # (Manual) Basophils # (Manual) PT INR POC ABG pO2 253 H Sodium Potassium Chloride Carbon Dioxide BUN Creatinine Glucose POC Glucose 224 H 187 H Calcium Magnesium TIBC Ferritin Lactate Dehydrogenase Troponin T NT-Pro-B Natriuret Pep Albumin HDL Cholesterol Folate Fluid Glucose Fluid Total Protein 02/19/19 02/19/19 02/19/19 14:40 17:49 18:22 WBC RBC Hgb Hct MCV MCH RDW Plt Count Lymph % (Auto) [place] % (Auto) [place] # Baso # Seg Neutrophils % Seg Neuts % (Manual) Lymphocytes % (Manual) Monocytes % (Manual) Seg Neutrophils # Seg Neutrophils # Man Monocytes # (Manual) Basophils # (Manual) PT 15.7 H INR 1.27 H POC ABG pO2 Sodium Potassium Chloride Carbon Dioxide BUN Creatinine Glucose POC Glucose 239 H Calcium Magnesium TIBC Ferritin Lactate Dehydrogenase Troponin T NT-Pro-B Natriuret Pep Albumin HDL Cholesterol Folate Fluid Glucose 247 H Fluid Total Protein 3.3 L 02/19/19 02/20/19 02/20/19 22:24 04:45 04:45 WBC 18.6 H RBC 3.07 L Hgb 7.4 L Hct 23.8 L MCV 78 L MCH 24 L RDW 19.4 H Plt Count 596 H Lymph % (Auto) 8.8 L [place] % (Auto) [place] # 1.0 H Baso # Seg Neutrophils % 85.6 H Seg Neuts % (Manual) Lymphocytes % (Manual) Monocytes % (Manual) Seg Neutrophils # 15.9 H Seg Neutrophils # Man Monocytes # (Manual) Basophils # (Manual) PT INR POC ABG pO2 Sodium Potassium 5.2 H D Chloride Carbon Dioxide 19 L BUN 36 H Creatinine 1.6 H Glucose POC Glucose 170 H Calcium Magnesium TIBC Ferritin Lactate Dehydrogenase Troponin T NT-Pro-B Natriuret Pep Albumin HDL Cholesterol Folate Fluid Glucose Fluid Total Protein 02/20/19 02/20/19 02/20/19 11:17 15:39 20:37 WBC RBC Hgb Hct MCV MCH RDW Plt Count Lymph % (Auto) [place] % (Auto) [place] # Baso # Seg Neutrophils % Seg Neuts % (Manual) Lymphocytes % (Manual) Monocytes % (Manual) Seg Neutrophils # Seg Neutrophils # Man Monocytes # (Manual) Basophils # (Manual) PT INR POC ABG pO2 Sodium Potassium Chloride Carbon Dioxide BUN Creatinine Glucose POC Glucose 160 H 147 H 146 H Calcium Magnesium TIBC Ferritin Lactate Dehydrogenase Troponin T NT-Pro-B Natriuret Pep Albumin HDL Cholesterol Folate Fluid Glucose Fluid Total Protein 02/21/19 02/21/19 02/21/19 06:34 07:39 11:45 WBC RBC Hgb Hct MCV MCH RDW Plt Count Lymph % (Auto) [place] % (Auto) [place] # Baso # Seg Neutrophils % Seg Neuts % (Manual) Lymphocytes % (Manual) Monocytes % (Manual) Seg Neutrophils # Seg Neutrophils # Man Monocytes # (Manual) Basophils # (Manual) PT INR POC ABG pO2 Sodium 135 L Potassium 5.3 H Chloride Carbon Dioxide 17 L BUN 36 H Creatinine 1.5 H Glucose 179 H POC Glucose 184 H 268 H Calcium Magnesium TIBC Ferritin Lactate Dehydrogenase Troponin T NT-Pro-B Natriuret Pep Albumin HDL Cholesterol Folate Fluid Glucose Fluid Total Protein 02/21/19 02/21/19 02/21/19 11:59 15:41 20:43 WBC 13.6 H RBC 3.19 L Hgb 8.0 L Hct 24.7 L MCV 78 L MCH 25 L RDW 19.4 H Plt Count 614 H Lymph % (Auto) [place] % (Auto) [place] # Baso # Seg Neutrophils % Seg Neuts % (Manual) Lymphocytes % (Manual) Monocytes % (Manual) Seg Neutrophils # Seg Neutrophils # Man Monocytes # (Manual) Basophils # (Manual) PT INR POC ABG pO2 Sodium Potassium Chloride Carbon Dioxide BUN Creatinine Glucose POC Glucose 278 H 251 H Calcium Magnesium TIBC Ferritin Lactate Dehydrogenase Troponin T NT-Pro-B Natriuret Pep Albumin HDL Cholesterol Folate Fluid Glucose Fluid Total Protein 02/22/19 02/22/19 02/22/19 00:44 08:04 12:24 WBC RBC Hgb Hct MCV MCH RDW Plt Count Lymph % (Auto) [place] % (Auto) [place] # Baso # Seg Neutrophils % Seg Neuts % (Manual) Lymphocytes % (Manual) Monocytes % (Manual) Seg Neutrophils # Seg Neutrophils # Man Monocytes # (Manual) Basophils # (Manual) PT INR POC ABG pO2 Sodium 133 L Potassium Chloride Carbon Dioxide 19 L BUN 37 H Creatinine 1.5 H Glucose 139 H POC Glucose 124 H 174 H Calcium 8.1 L Magnesium TIBC Ferritin Lactate Dehydrogenase Troponin T NT-Pro-B Natriuret Pep Albumin HDL Cholesterol Folate Fluid Glucose Fluid Total Protein 02/22/19 02/22/19 02/22/19 13:15 15:56 21:30 WBC RBC Hgb Hct MCV MCH RDW Plt Count Lymph % (Auto) [place] % (Auto) [place] # Baso # Seg Neutrophils % Seg Neuts % (Manual) Lymphocytes % (Manual) Monocytes % (Manual) Seg Neutrophils # Seg Neutrophils # Man Monocytes # (Manual) Basophils # (Manual) PT INR POC ABG pO2 Sodium Potassium Chloride Carbon Dioxide BUN Creatinine Glucose POC Glucose 359 H 398 H Calcium Magnesium TIBC Ferritin Lactate Dehydrogenase Troponin T 0.208 H* D NT-Pro-B Natriuret Pep Albumin HDL Cholesterol 72 H Folate Fluid Glucose Fluid Total Protein 02/23/19 02/23/19 02/23/19 06:26 06:49 07:43 WBC RBC Hgb Hct MCV MCH RDW Plt Count Lymph % (Auto) [place] % (Auto) [place] # Baso # Seg Neutrophils % Seg Neuts % (Manual) Lymphocytes % (Manual) Monocytes % (Manual) Seg Neutrophils # Seg Neutrophils # Man Monocytes # (Manual) Basophils # (Manual) PT INR POC ABG pO2 Sodium 132 L Potassium Chloride Carbon Dioxide 20 L BUN 43 H Creatinine 1.3 H Glucose 163 H POC Glucose 183 H Calcium 8.1 L Magnesium 1.60 L TIBC Ferritin Lactate Dehydrogenase Troponin T 0.173 H* NT-Pro-B Natriuret Pep Albumin HDL Cholesterol Folate Fluid Glucose Fluid Total Protein 02/23/19 02/23/19 02/23/19 12:24 17:09 21:47 WBC RBC Hgb Hct MCV MCH RDW Plt Count Lymph % (Auto) [place] % (Auto) [place] # Baso # Seg Neutrophils % Seg Neuts % (Manual) Lymphocytes % (Manual) Monocytes % (Manual) Seg Neutrophils # Seg Neutrophils # Man Monocytes # (Manual) Basophils # (Manual) PT INR POC ABG pO2 Sodium Potassium Chloride Carbon Dioxide BUN Creatinine Glucose POC Glucose 186 H 245 H 203 H Calcium Magnesium TIBC Ferritin Lactate Dehydrogenase Troponin T NT-Pro-B Natriuret Pep Albumin HDL Cholesterol Folate Fluid Glucose Fluid Total Protein 02/24/19 02/24/19 02/24/19 05:14 05:14 05:14 WBC 20.8 H RBC 2.99 L Hgb 7.4 L Hct 23.8 L MCV MCH 25 L RDW 19.4 H Plt Count 608 H Lymph % (Auto) [place] % (Auto) [place] # Baso # Seg Neutrophils % Seg Neuts % (Manual) 85.0 H Lymphocytes % (Manual) 7.0 L Monocytes % (Manual) 8.0 H Seg Neutrophils # Seg Neutrophils # Man 17.7 H Monocytes # (Manual) 1.7 H Basophils # (Manual) PT 15.1 H INR 1.20 H POC ABG pO2 Sodium Potassium Chloride Carbon Dioxide 19 L BUN 38 H Creatinine Glucose 168 H POC Glucose Calcium 8.0 L Magnesium TIBC Ferritin Lactate Dehydrogenase Troponin T 0.216 H* D NT-Pro-B Natriuret Pep Albumin HDL Cholesterol Folate Fluid Glucose Fluid Total Protein 02/24/19 02/24/19 02/24/19 07:47 11:39 15:48 WBC RBC Hgb Hct MCV MCH RDW Plt Count Lymph % (Auto) [place] % (Auto) [place] # Baso # Seg Neutrophils % Seg Neuts % (Manual) Lymphocytes % (Manual) Monocytes % (Manual) Seg Neutrophils # Seg Neutrophils # Man Monocytes # (Manual) Basophils # (Manual) PT INR POC ABG pO2 Sodium Potassium Chloride Carbon Dioxide BUN Creatinine Glucose POC Glucose 180 H 227 H 234 H Calcium Magnesium TIBC Ferritin Lactate Dehydrogenase Troponin T NT-Pro-B Natriuret Pep Albumin HDL Cholesterol Folate Fluid Glucose Fluid Total Protein 02/24/19 02/25/19 02/25/19 20:56 04:27 04:27 WBC 20.0 H RBC 2.96 L Hgb 7.4 L Hct 23.5 L MCV MCH 25 L RDW 19.4 H Plt Count 575 H Lymph % (Auto) [place] % (Auto) [place] # Baso # Seg Neutrophils % Seg Neuts % (Manual) Lymphocytes % (Manual) Monocytes % (Manual) Seg Neutrophils # Seg Neutrophils # Man Monocytes # (Manual) Basophils # (Manual) PT INR POC ABG pO2 Sodium 135 L Potassium Chloride Carbon Dioxide 19 L BUN 32 H Creatinine Glucose 61 L POC Glucose 310 H Calcium 8.3 L Magnesium TIBC Ferritin Lactate Dehydrogenase Troponin T NT-Pro-B Natriuret Pep Albumin HDL Cholesterol Folate Fluid Glucose Fluid Total Protein 02/25/19 02/25/19 02/25/19 07:49 11:47 11:47 WBC RBC Hgb Hct MCV MCH RDW Plt Count Lymph % (Auto) [place] % (Auto) [place] # Baso # Seg Neutrophils % Seg Neuts % (Manual) Lymphocytes % (Manual) Monocytes % (Manual) Seg Neutrophils # Seg Neutrophils # Man Monocytes # (Manual) Basophils # (Manual) PT INR POC ABG pO2 Sodium Potassium Chloride Carbon Dioxide BUN Creatinine Glucose POC Glucose 112 H Calcium Magnesium TIBC 120 L Ferritin 893.3 H Lactate Dehydrogenase Troponin T NT-Pro-B Natriuret Pep Albumin HDL Cholesterol Folate Fluid Glucose Fluid Total Protein 02/25/19 02/25/19 02/25/19 11:49 17:26 21:23 WBC RBC Hgb Hct MCV MCH RDW Plt Count Lymph % (Auto) [place] % (Auto) [place] # Baso # Seg Neutrophils % Seg Neuts % (Manual) Lymphocytes % (Manual) Monocytes % (Manual) Seg Neutrophils # Seg Neutrophils # Man Monocytes # (Manual) Basophils # (Manual) PT INR POC ABG pO2 Sodium Potassium Chloride Carbon Dioxide BUN Creatinine Glucose POC Glucose 174 H 334 H 233 H Calcium Magnesium TIBC Ferritin Lactate Dehydrogenase Troponin T NT-Pro-B Natriuret Pep Albumin HDL Cholesterol Folate Fluid Glucose Fluid Total Protein 02/26/19 02/26/19 02/26/19 05:23 05:23 07:34 WBC 24.3 H RBC 3.07 L Hgb 7.5 L Hct 24.2 L MCV MCH 25 L RDW 19.5 H Plt Count 603 H Lymph % (Auto) [place] % (Auto) [place] # Baso # Seg Neutrophils % Seg Neuts % (Manual) Lymphocytes % (Manual) Monocytes % (Manual) Seg Neutrophils # Seg Neutrophils # Man Monocytes # (Manual) Basophils # (Manual) PT INR POC ABG pO2 Sodium 132 L Potassium Chloride Carbon Dioxide 20 L BUN 33 H Creatinine 1.3 H Glucose 165 H POC Glucose 177 H Calcium 8.2 L Magnesium TIBC Ferritin Lactate Dehydrogenase Troponin T NT-Pro-B Natriuret Pep Albumin HDL Cholesterol Folate Fluid Glucose Fluid Total Protein 02/26/19 02/26/19 02/26/19 11:03 15:46 21:20 WBC RBC Hgb Hct MCV MCH RDW Plt Count Lymph % (Auto) [place] % (Auto) [place] # Baso # Seg Neutrophils % Seg Neuts % (Manual) Lymphocytes % (Manual) Monocytes % (Manual) Seg Neutrophils # Seg Neutrophils # Man Monocytes # (Manual) Basophils # (Manual) PT INR POC ABG pO2 Sodium Potassium Chloride Carbon Dioxide BUN Creatinine Glucose POC Glucose 141 H 269 H 353 H Calcium Magnesium TIBC Ferritin Lactate Dehydrogenase Troponin T NT-Pro-B Natriuret Pep Albumin HDL Cholesterol Folate Fluid Glucose Fluid Total Protein 02/27/19 02/27/19 02/27/19 03:56 08:17 12:02 WBC RBC Hgb Hct MCV MCH RDW Plt Count Lymph % (Auto) [place] % (Auto) [place] # Baso # Seg Neutrophils % Seg Neuts % (Manual) Lymphocytes % (Manual) Monocytes % (Manual) Seg Neutrophils # Seg Neutrophils # Man Monocytes # (Manual) Basophils # (Manual) PT INR POC ABG pO2 Sodium 133 L Potassium Chloride 97.2 L Carbon Dioxide 21 L BUN 33 H Creatinine 1.5 H Glucose 170 H POC Glucose 136 H 163 H Calcium 8.0 L Magnesium TIBC Ferritin Lactate Dehydrogenase Troponin T NT-Pro-B Natriuret Pep Albumin HDL Cholesterol Folate Fluid Glucose Fluid Total Protein 02/27/19 02/27/19 02/28/19 17:02 21:17 07:36 WBC RBC Hgb Hct MCV MCH RDW Plt Count Lymph % (Auto) [place] % (Auto) [place] # Baso # Seg Neutrophils % Seg Neuts % (Manual) Lymphocytes % (Manual) Monocytes % (Manual) Seg Neutrophils # Seg Neutrophils # Man Monocytes # (Manual) Basophils # (Manual) PT INR POC ABG pO2 Sodium 132 L Potassium Chloride Carbon Dioxide 18 L BUN 33 H Creatinine Glucose 112 H POC Glucose 278 H 294 H Calcium 8.3 L Magnesium TIBC Ferritin Lactate Dehydrogenase Troponin T NT-Pro-B Natriuret Pep Albumin HDL Cholesterol Folate Fluid Glucose Fluid Total Protein 02/28/19 02/28/19 02/28/19 07:36 08:16 12:08 WBC 22.5 H RBC 3.17 L Hgb 8.1 L Hct 25.1 L MCV MCH 26 L RDW 20.3 H Plt Count 575 H Lymph % (Auto) [place] % (Auto) [place] # Baso # Seg Neutrophils % Seg Neuts % (Manual) 75.0 H Lymphocytes % (Manual) Monocytes % (Manual) Seg Neutrophils # Seg Neutrophils # Man 16.9 H Monocytes # (Manual) Basophils # (Manual) 0.2 H PT INR POC ABG pO2 Sodium Potassium Chloride Carbon Dioxide BUN Creatinine Glucose POC Glucose 117 H 225 H Calcium Magnesium TIBC Ferritin Lactate Dehydrogenase Troponin T NT-Pro-B Natriuret Pep Albumin HDL Cholesterol Folate Fluid Glucose Fluid Total Protein 02/28/19 02/28/19 03/01/19 17:01 20:54 06:41 WBC 19.9 H RBC 2.90 L Hgb 7.3 L Hct 22.8 L MCV MCH 25 L RDW 20.8 H Plt Count 521 H Lymph % (Auto) [place] % (Auto) 9.4 H [place] # 1.9 H Baso # Seg Neutrophils % 75.6 H Seg Neuts % (Manual) Lymphocytes % (Manual) Monocytes % (Manual) Seg Neutrophils # 15.0 H Seg Neutrophils # Man Monocytes # (Manual) Basophils # (Manual) PT INR POC ABG pO2 Sodium Potassium Chloride Carbon Dioxide BUN Creatinine Glucose POC Glucose 276 H 270 H Calcium Magnesium TIBC Ferritin Lactate Dehydrogenase Troponin T NT-Pro-B Natriuret Pep Albumin HDL Cholesterol Folate Fluid Glucose Fluid Total Protein 03/01/19 03/01/19 03/01/19 06:41 09:27 12:09 WBC RBC Hgb Hct MCV MCH RDW Plt Count Lymph % (Auto) [place] % (Auto) [place] # Baso # Seg Neutrophils % Seg Neuts % (Manual) Lymphocytes % (Manual) Monocytes % (Manual) Seg Neutrophils # Seg Neutrophils # Man Monocytes # (Manual) Basophils # (Manual) PT INR POC ABG pO2 Sodium Potassium Chloride Carbon Dioxide 20 L BUN 35 H Creatinine 1.4 H Glucose POC Glucose 148 H Calcium Magnesium TIBC Ferritin Lactate Dehydrogenase Troponin T NT-Pro-B Natriuret Pep Albumin HDL Cholesterol Folate 5.97 L Fluid Glucose Fluid Total Protein 03/01/19 03/01/19 03/02/19 17:35 21:47 07:36 WBC 20.8 H RBC 3.18 L Hgb 8.0 L Hct 25.0 L MCV MCH 25 L RDW 20.8 H Plt Count 535 H Lymph % (Auto) [place] % (Auto) [place] # Baso # Seg Neutrophils % Seg Neuts % (Manual) Lymphocytes % (Manual) Monocytes % (Manual) Seg Neutrophils # Seg Neutrophils # Man Monocytes # (Manual) Basophils # (Manual) PT INR POC ABG pO2 Sodium Potassium Chloride Carbon Dioxide BUN Creatinine Glucose POC Glucose 362 H 310 H Calcium Magnesium TIBC Ferritin Lactate Dehydrogenase Troponin T NT-Pro-B Natriuret Pep Albumin HDL Cholesterol Folate Fluid Glucose Fluid Total Protein 03/02/19 03/02/19 03/02/19 07:36 08:03 16:03 WBC RBC Hgb Hct MCV MCH RDW Plt Count Lymph % (Auto) [place] % (Auto) [place] # Baso # Seg Neutrophils % Seg Neuts % (Manual) Lymphocytes % (Manual) Monocytes % (Manual) Seg Neutrophils # Seg Neutrophils # Man Monocytes # (Manual) Basophils # (Manual) PT INR POC ABG pO2 Sodium Potassium Chloride Carbon Dioxide 20 L BUN 36 H Creatinine Glucose 151 H POC Glucose 143 H 375 H Calcium Magnesium TIBC Ferritin Lactate Dehydrogenase Troponin T NT-Pro-B Natriuret Pep Albumin HDL Cholesterol Folate Fluid Glucose Fluid Total Protein 03/02/19 03/03/19 03/03/19 20:59 03:21 03:21 WBC 15.8 H RBC 2.85 L Hgb 7.2 L Hct 22.6 L MCV MCH 25 L RDW 20.3 H Plt Count 482 H Lymph % (Auto) 8.3 L [place] % (Auto) 10.2 H [place] # 1.6 H Baso # Seg Neutrophils % 81.2 H Seg Neuts % (Manual) Lymphocytes % (Manual) Monocytes % (Manual) Seg Neutrophils # 12.8 H Seg Neutrophils # Man Monocytes # (Manual) Basophils # (Manual) PT INR POC ABG pO2 Sodium 134 L Potassium Chloride Carbon Dioxide BUN 38 H Creatinine 1.5 H Glucose POC Glucose 352 H Calcium 8.3 L Magnesium TIBC Ferritin Lactate Dehydrogenase 202 H Troponin T NT-Pro-B Natriuret Pep Albumin HDL Cholesterol Folate Fluid Glucose Fluid Total Protein
[2019-03-03] MEDS: ASPIRIN EC 325 MG TAB PO SCH (10:33)
--- NOTE | 2019-03-03 11:34 | Discharge Summary ---
Providers - Providers Date of Admission: 02/19/19 01:41 Date of discharge: 03/03/19 Attending physician: JENIFER REINA 02/19/19 03:09 Consult to Dietitian/Nutrition [CONS] Routine Physician Instructions: Reason For Exam: Reason for Consult: Diet education 02/19/19 08:49 Consult to Physician [CONS] Routine Comment: Consulting Provider: SHERYL CAREY Physician Instructions: Reason For Exam: respiratory failure 02/21/19 11:30 Consult to Physician [CONS] Routine Comment: Consulting Provider: DUANE MIGUEL Physician Instructions: Reason For Exam: NEELIMA and hyperkalemia 02/21/19 13:57 Consult to Physician [CONS] Routine Comment: Consulting Provider: PATRICK JARVIS Physician Instructions: Reason For Exam: CHf exacerbation Physical Therapy Evaluation and Treat [CONS] Routine Comment: Reason For Exam: placement 02/25/19 07:23 Consult to Physician [CONS] Routine Comment: Consulting Provider: PASCUAL GARCIA Physician Instructions: Reason For Exam: Anemia 02/27/19 16:13 Consult to Physician [CONS] Routine Comment: Consulting Provider: KAPIL FRANCO Physician Instructions: Reason For Exam: lung cancer Hospitalization Condition: Serious Hospital course: 73-year-old female with known history of hypertension coronary artery disease diabetes mellitus who presents to the emergency room complaining of shortness of breath. She was just recently discharged from the hospital with similar symptoms, diagnosed with cavitary lesion in the left upper lobe was placed on antibiotics, was also ruled out for TB. She presents to the emergency room in respiratory distress. She was placed on BiPAP. Upon evaluation in the emergency room she was found to have findings consistent with moderate left pleural effusion - s/p thoracentesis. Pleural fluid suggested malignancy, confirmed by biopsy FARAZ. Plan is to discharge to SNF to follow up with Dr. franco to start Chemo . 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 Followed by Pulmonary. S/p CT-guided lung biopsy for more tissue sampling - path shows lung cancer Left pleural effusion Thoracentesis done 02/19, Acute hypoxic respiratory failure secondary to underlying pneumonia and malignancy, left pleural effusion and CHF exacerbation. She has been placed on BiPAP - now weaned off s/p thoracentesis on 02/19 drained 700cc fluid, 2-D echo showed EF of 30-35% Anemia from chronic disease Acute on chronic systolic CHF We will continue patient on routine home medications. Will monitor daily weight monitor input and output. 2-D echo showed EF of 30-35%, we'll continue [facility] following. Stress test done 02/23 abnormal. Was scheduled for cardiac cath but canceled because of anemia NEELIMA, acute on CKD? This appears chronic. Will monitor BUN and creatinine, consulted nephrology, following Physical debility, Full code status Discussed with Dr. Franco, [facility]. To follow with him as outpatient. Total time spent on discharge 45 mins Disposition: [id number] SNF W [facility] CERT - Discharge Diagnoses (1) Lung cancer Status: Acute (2) Malignant pleural effusion Status: Acute (3) Acute respiratory failure with hypoxia Status: Acute (4) CKD (chronic kidney disease) Status: Acute (5) NEELIMA (acute kidney injury) Status: Acute Core Measure Documentation - Palliative Care Palliative Care/ Comfort Measures: Not Applicable - Core Measures Any of the following diagnoses?: none Exam - Constitutional Vitals: Temp Pulse Resp BP Pulse Ox 98.2 F 80 18 150/59 97 03/03/19 11:26 03/03/19 11:26 03/03/19 11:26 03/03/19 11:26 03/03/19 11:26 Plan Activity: advance as tolerated Diet: low fat, low cholesterol, low salt, diabetic Durable Medical Equipment Needed Upon Discharge: Oxygen (2l/min) Plan of Treatment: 1.Follow up with Dr. rFanco, Oncology in 1 week, 2.Follow up with Dr. Carey Pulm in 1 week 3.Follow up with Dr. Pierce in 1 week 4.Follow up with PCP in 1 week Follow up with: SHERYL CAREY MD [Staff Physician] - 7 Days KAPIL FRANCO MD [Staff Physician] - 7 Days PRIMARY CAREMD [Referring] - 3-5 Days
[2019-03-03 15:45] VITALS: BP 146/55
== END 2019-03-03 17:11 | DRG 871 ==
LOC: ED 22:41 → IMCU 02-19 01:41 → CC1 02-19 03:08 → IMCU 02-19 08:44 → 4A 02-20 10:50
PROVIDERS: ADMIT Internal Medicine Geriatric Medicine; ATTEND Internal Medicine
PROC: 4A033R1 Measurement of Arterial Saturation, Peripheral, Percutaneous Approach (ICD-10-PCS; 2019-02-18)
PROC: 5A09357 Assistance with Respiratory Ventilation, Less than 24 Consecutive Hours, Continuous Positive Airway Pressure (ICD-10-PCS; 2019-02-19)
PROC: 0W9B3ZZ Drainage of Left Pleural Cavity, Percutaneous Approach (ICD-10-PCS; 2019-02-19)
PROC: 0BBG3ZX Excision of Left Upper Lung Lobe, Percutaneous Approach, Diagnostic (ICD-10-PCS; principal; 2019-03-02)
DX: A41.9 Sepsis, unspecified organism (principal); J18.9 Pneumonia, unspecified organism; J96.01 Acute respiratory failure with hypoxia; I50.23 Acute on chronic systolic (congestive) heart failure; I21.A1 Myocardial infarction type 2; N17.9 Acute kidney failure, unspecified; J91.8 Pleural effusion in other conditions classified elsewhere; J98.11 Atelectasis; I42.0 Dilated cardiomyopathy; I13.0 Hypertensive heart and chronic kidney disease with heart failure and stage 1 through stage 4 chronic kidney disease, or unspecified chronic kidney disease; C34.90 Malignant neoplasm of unspecified part of unspecified bronchus or lung; E87.5 Hyperkalemia; I25.10 Atherosclerotic heart disease of native coronary artery without angina pectoris; K21.9 Gastro-esophageal reflux disease without esophagitis; M10.9 Gout, unspecified; I27.20 Pulmonary hypertension, unspecified; N18.3 Chronic kidney disease, stage 3 (moderate); E11.22 Type 2 diabetes mellitus with diabetic chronic kidney disease; D64.9 Anemia, unspecified; R91.1 Solitary pulmonary nodule; D75.1 Secondary polycythemia; Z95.5 Presence of coronary angioplasty implant and graft; Z87.891 Personal history of nicotine dependence; Z79.82 Long term (current) use of aspirin; Z79.84 Long term (current) use of oral hypoglycemic drugs
CPT/HCPCS: 36415; 71045; 71250; 77012; 78452; 80048; 80053; 80061; 80202; 82607; 82728; 82747; 82803; 82947; 82962; 83550; 83605; 83615; 83735; 83880; 84100; 84160; 84484; 85007; 85025; 85027; 85610; 87040; 87102; 87116; 87220; 88112; 88173; 88305; 88312; 88333; 89051; 93005; 93010; 93017; 93306; 94640; 94644; 94760; 96374; 96375; G0378; A9270-GY; A9502; J0692; J1170; J1815; J1940; J1956; J2270; J2405; J2785; J2920; J2930; J3370; J7050

== ENCOUNTER 2019-03-04 22:19 | Inpatient (IN) | payer MEDICAID, MEDICARE ==
[2019-03-04] MEDS ORDERED: FUROSEMIDE 40 MG/4 ML INJ IV ONE (22:32)
--- NOTE | 2019-03-04 22:47 | Emergency Department Report ---
ED Shortness of Breath HPI - General Chief Complaint: Dyspnea/Respdistress Stated Complaint: RUPA Time Seen by Provider: 03/04/19 22:30 Source: patient, EMS, old records reviewed Mode of arrival: Stretcher Limitations: Other (severe work of breathing) - History of Present Illness Initial Comments: Mrs. Romero is a 73-year-old female with a history of hypertension, coronary artery disease, chronic kidney disease, diabetes mellitus with severe shortness of breath and low oxygen saturation from [facility] assisted. I obtain history from EMS, long-term facility documentation and electronic medical record. Mrs. Romero has had 3 recent hospitalizations including 2 this month and additional hospitalization in December for respiratory failure. Recent diagnoses include possible squamous cell carcinoma, cavitary lung mass, pleural effusion, congestive heart failure, renal impairment, community acquired pneumonia. Mrs. Romero returns to the hospital via EMS after recent discharge for severe shortness of breath and low oxygen saturation. On nonrebreather upon arrival patient's oxygen saturation was 86%. Due to evening, Mrs. Romero history is limited. She did say yes when I asked if she desired to be on life support/ventilator if necessary. MD Complaint: shortness of breath -: Gradual (several days), unknown Severity: severe Consistency: constant Improves With: oxygen, upright position Worsens With: lying flat Known History Of: congestive heart failure, recurrent pnemonia Context: recent illness Associated Symptoms: other (unablet to be obtained) - Related Data Home Medications Medication Instructions Recorded Confirmed Last Taken Allopurinol 100 mg PO DAILY 12/26/18 02/19/19 Unknown Cilostazol 100 mg PO BID 12/26/18 02/19/19 Unknown Ferrous Sulfate 325 mg PO DAILY 12/26/18 02/19/19 Unknown AtorvaSTATin [Lipitor] 40 mg PO QHS 02/09/19 02/19/19 Unknown Previous Rx's Medication Instructions Recorded Last Taken Type Ipratropium (Nf) [Atrovent HFA 2 puff IH Q6HR PRN #1 inha 01/11/19 Unknown Rx 17MCG/PUFF] Pantoprazole [Protonix TAB] 40 mg PO QDAY #30 tablet 02/16/19 Unknown Rx hydrALAZINE [Apresoline TAB] 25 mg PO Q8HR #90 tablet 02/16/19 Unknown Rx Furosemide [Lasix TAB] 20 mg PO QDAY tablet 03/01/19 Unknown Rx ISOSORBIDE MONOnitrate [Imdur ER] 120 mg PO QDAY tablet 03/01/19 Unknown Rx Insulin NPH/Regular [NovoLIN 70/30] 10 unit SUB-Q BIDDIAB units 03/01/19 Unknown Rx Insulin Regular, Human [HumuLIN R] 0 units SUB-Q ACHS units 03/01/19 Unknown Rx Metoprolol [Lopressor TAB] 50 mg PO BID tablet 03/01/19 Unknown Rx Aspirin EC 325 mg PO QDAY #30 tablet 03/03/19 Unknown Rx Folic Acid [Folvite] 1 mg PO QDAY #30 tablet 03/03/19 Unknown Rx Allergies Allergy/AdvReac Type Severity Reaction Status Date / Time ibuprofen Allergy Unknown Verified 02/18/19 23:29 Penicillins Allergy Unknown Verified 02/18/19 23:29 ED Review of Systems ROS: Stated complaint: RUPA Other details as noted in HPI Comment: Unobtainable due to pts medical conditions ED Past Medical Hx - Past Medical History Previous Medical History?: Yes Hx Hypertension: Yes Hx Congestive Heart Failure: Yes Hx Diabetes: Yes Hx Liver Disease: No Hx Renal Disease: No - Surgical History Past Surgical History?: Yes Hx Coronary Stent: Yes (3 stents) Additional Surgical History: stent placement - Social History Smoking Status: Former Smoker Substance Use Type: None - Medications Home Medications: Home Medications Medication Instructions Recorded Confirmed Last Taken Type Allopurinol 100 mg PO DAILY 12/26/18 02/19/19 Unknown History Cilostazol 100 mg PO BID 12/26/18 02/19/19 Unknown History Ferrous Sulfate 325 mg PO DAILY 12/26/18 02/19/19 Unknown History Ipratropium (Nf) [Atrovent HFA 2 puff IH Q6HR PRN #1 inha 01/11/19 02/19/19 Unknown Rx 17MCG/PUFF] AtorvaSTATin [Lipitor] 40 mg PO QHS 02/09/19 02/19/19 Unknown History Pantoprazole [Protonix TAB] 40 mg PO QDAY #30 tablet 02/16/19 02/19/19 Unknown Rx hydrALAZINE [Apresoline TAB] 25 mg PO Q8HR #90 tablet 02/16/19 02/19/19 Unknown Rx Furosemide [Lasix TAB] 20 mg PO QDAY tablet 03/01/19 Unknown Rx ISOSORBIDE MONOnitrate [Imdur ER] 120 mg PO QDAY tablet 03/01/19 Unknown Rx Insulin NPH/Regular [NovoLIN 70/30] 10 unit SUB-Q BIDDIAB units 03/01/19 Unknown Rx Insulin Regular, Human [HumuLIN R] 0 units SUB-Q ACHS units 03/01/19 Unknown Rx Metoprolol [Lopressor TAB] 50 mg PO BID tablet 03/01/19 Unknown Rx Aspirin EC 325 mg PO QDAY #30 tablet 03/03/19 Unknown Rx Folic Acid [Folvite] 1 mg PO QDAY #30 tablet 03/03/19 Unknown Rx ED Physical Exam - General Limitations: Other (severe work of breathing) General appearance: lethargic, in distress - Head Head exam: Present: atraumatic, normocephalic - Eye Eye exam: Present: normal appearance, PERRL. Absent: scleral icterus, conjunctival injection - ENT ENT exam: Present: mucous membranes dry - Neck Neck exam: Present: normal inspection - Respiratory Respiratory exam: Present: respiratory distress, rales, rhonchi, accessory muscle use - Cardiovascular Cardiovascular Exam: Present: normal rhythm, tachycardia, normal heart sounds. Absent: systolic murmur, diastolic murmur, rubs, gallop - GI/Abdominal GI/Abdominal exam: Present: soft, normal bowel sounds. Absent: distended, tenderness, guarding, rebound - Extremities Exam Extremities exam: Present: normal inspection - Neurological Exam Neurological exam: Present: altered - Skin Skin exam: Present: warm, dry, intact, normal color. Absent: rash ED Course Vital Signs 03/04/19 03/05/19 22:33 00:05 Temperature 98.7 F Pulse Rate 121 H 80 Respiratory 30 H 22 Rate Blood Pressure 193/91 147/71 [Left] O2 Sat by Pulse 100 100 Oximetry ED Medical Decision Making - Lab Data Result diagrams: 03/04/19 23:02 03/04/19 23:02 - EKG Data 03/05/19 00:39 EKG obtained 0028 Normal sinus rhythm rate 90 bpm normal axis prolonged QTc no ST elevation biphasic T waves in the anterior leads no significant ST elevation - Radiology Data Radiology results: report reviewed AP portable chest one view read by radiologist , I also personally reviewed the image: New opacification of the left hemothorax that suggest either a large pleural effusion and/or atelectasis according to radiologist report - Medical Decision Making Ms. Romero presents with acute respiratory failure hypoxia due to pleural effusion likely underlying infection. Also suspect postobstructive pneumonia with history of new lung mass. I have ordered broad spectrum antibiotics. Labs notable for increasing white blood count, leukocytosis 26K today which is increased. Troponin persistently elevated but decreased from prior lab value suggestive of cardiomyopathy. Admitted to the hospitalist service in fair condition. FiO2 40%. Heart rate has normalized on BiPAP. Respiratory and mental status has improved. Patient is much more talkative. Much more alert. Blood pressure improved with nitroglycerin ointment and IV hydralazine. Critical Care Time: Yes Critical care attestation.: If time is entered above; I have spent that time in minutes in the direct care of this critically ill patient, excluding procedure time. 40 minutes of critical care time excluding procedures were used in the care of the patient. I came to the bedside immediately upon arrival. I observed severe work of breathing. I obtained history from paramedics at the bedside. I reviewed long-term facility documentation. I reviewed electronic medical record. I immediately asked respiratory therapist to apply noninvasive positive pressure ventilation. I provided RN with resuscitation orders. Patient required multiple assessments and interventions. I spoke with consultants involved in the care of the patient. ED Disposition Clinical Impression: Acute respiratory failure with hypoxemia, HCAP (healthcare-associated pne umonia), Pleural effusion, Lung mass, Cardiomyopathy Disposition: OP ADMIT IP TO THIS HOSP Is pt being admited?: Yes Does the pt Need Aspirin: No Condition: Stable
[2019-03-04] MEDS ORDERED: NITROGLYCERIN 2% OINT 1 GM TP ONE (22:54)
[2019-03-04] MEDS ORDERED: hydrALAZINE 20 MG/1 ML INJ IV ONE (22:55)
--- NOTE | 2019-03-04 23:15 | XRay Report ---
CHEST 1 VIEW, 03/04/2019 10:32 PM CLINICAL INFORMATION/INDICATION: Shortness of breath. History of pneumonia and left lung mass. COMPARISON: Chest radiograph, 03/02/2019 at 5:15 PM FINDINGS: SUPPORT DEVICES: None. HEART: The cardiac silhouette is not well visualized secondary to lung disease. LUNGS/PLEURA: There is now complete opacification of the left hemithorax. Mild interstitial edema is seen within the right lung with a trace right pleural effusion. ADDITIONAL FINDINGS: No additional acute findings. IMPRESSION: 1. New opacification of the left hemithorax that suggests either a large pleural effusion and/or atel ectasis. 2. Mild interstitial edema. Signer Name: Radha Chavez MD Signed: 03/04/2019 11:11 PM Workstation Name: [id number]
[2019-03-04 23:31] LABS: Hematocrit 24.9 % (30.3-42.9); Hemoglobin 7.7 gm/dl (10.1-14.3); Mean Corpuscular HGB Conc 31 % (30-34); Mean Corpuscular Volume 81 fl (79-97); Platelet Count 491 K/mm3 (140-440); Red Blood Count 3.09 M/mm3 (3.65-5.03)
[2019-03-04 23:50] LABS: Albumin 2.9 g/dL (3.9-5); Calcium 8.2 mg/dL (8.4-10.2)
[2019-03-05 00:06] LABS: Red Cell Distribution Width 20.7 % (13.2-15.2)
[2019-03-05] MEDS ORDERED: VANCOMYCIN 1,500 MG in SODIUM CHLORIDE 0.9% 500 ML 500 ML IV ONE (01:00)
[2019-03-05] MEDS ORDERED: VANCOMYCIN PHARMACY TO DOSE IV SCH (01:00)
[2019-03-05 01:11] LABS: Chol/HDL Ratio 1.58 %
[2019-03-05 01:45] LABS: Total Cells Counted 100
[2019-03-05 01:46] LABS: Anisocytosis 1+; Basophils % (Manual) 0 % (0.0-1.8); Hypochromasia 1+
[2019-03-05 01:47] LABS: Target Cells Few
[2019-03-05 01:48] LABS: Platelet Estimate Consistent w Auto
--- NOTE | 2019-03-05 03:50 | History and Physical Report ---
History of Present Illness Date of examination: 03/05/19 Date of admission: 03/05/19 00:42 Chief complaint: Increasing shortness of breath for 1 day History of present illness: 72-year-old -[place] female with history of COPD, hypertension, insulin- dependent diabetes, CHF, coronary artery disease comes in for increasing shortness of breath and low oxygen saturations from [facility]. Oxygen saturation is very in the low 80s. Patient was also wheezing and in respiratory distress. Patient had to be put on BiPAP. No fever or chills. Patient was recently diagnosed with squamous cell carcinoma and cavitary lung mass. Patient is full code. No recent travel. Past Medical History Previous Medical History?: Yes Hypertension: Yes Congestive Heart Failure: Yes Diabetes: Yes -Surgical History Past Surgical History?: Yes Hx Coronary Stent: Yes (3 stents) Additional Surgical History: stent placement Social History Smoking Status: Former Smoker Substance Use Type: None Family history Htn - Medications Home Medications: Home Medications Medication Instructions Recorded Confirmed Last Taken Type Allopurinol 100 mg PO DAILY 12/26/18 02/19/19 Unknown History Cilostazol 100 mg PO BID 12/26/18 02/19/19 Unknown History Ferrous Sulfate 325 mg PO DAILY 12/26/18 02/19/19 Unknown History Ipratropium (Nf) [Atrovent HFA 2 puff IH Q6HR PRN #1 inha 01/11/19 02/19/19 Unknown Rx 17MCG/PUFF] AtorvaSTATin [Lipitor] 40 mg PO QHS 02/09/19 02/19/19 Unknown History Pantoprazole [Protonix TAB] 40 mg PO QDAY #30 tablet 02/16/19 02/19/19 Unknown Rx hydrALAZINE [Apresoline TAB] 25 mg PO Q8HR #90 tablet 02/16/19 02/19/19 Unknown Rx Furosemide [Lasix TAB] 20 mg PO QDAY tablet 03/01/19 Unknown Rx ISOSORBIDE MONOnitrate [Imdur ER] 120 mg PO QDAY tablet 03/01/19 Unknown Rx Insulin NPH/Regular [NovoLIN 70/30] 10 unit SUB-Q BIDDIAB units 03/01/19 Unknown Rx Insulin Regular, Human [HumuLIN R] 0 units SUB-Q ACHS units 03/01/19 Unknown Rx Metoprolol [Lopressor TAB] 50 mg PO BID tablet 03/01/19 Unknown Rx Aspirin EC 325 mg PO QDAY #30 tablet 03/03/19 Unknown Rx Folic Acid [Folvite] 1 mg PO QDAY #30 tablet 03/03/19 Unknown Rx Review of Systems ROS: Stated complaint: RUPA Other details as noted in HPI Comment: Unobtainable due to pts medical conditions Medications and Allergies Allergies Allergy/AdvReac Type Severity Reaction Status Date / Time ibuprofen Allergy Unknown Verified 02/18/19 23:29 Penicillins Allergy Unknown Verified 02/18/19 23:29 Home Medications Medication Instructions Recorded Confirmed Last Taken Type Allopurinol 100 mg PO DAILY 12/26/18 03/05/19 03/04/19 History Cilostazol 50 mg PO BID 12/26/18 03/05/19 03/04/19 History Ferrous Sulfate 325 mg PO DAILY 12/26/18 03/05/19 03/04/19 History Ipratropium (Nf) [Atrovent HFA 2 puff IH Q6HR PRN #1 inha 01/11/19 03/05/19 Unknown Rx 17MCG/PUFF] AtorvaSTATin [Lipitor] 40 mg PO QHS 02/09/19 03/05/19 03/04/19 History Pantoprazole [Protonix TAB] 40 mg PO QDAY #30 tablet 02/16/19 03/05/19 Unknown Rx hydrALAZINE [Apresoline TAB] 25 mg PO Q8HR #90 tablet 02/16/19 03/05/19 03/04/19 Rx Furosemide [Lasix TAB] 20 mg PO QDAY tablet 03/01/19 03/05/19 03/04/19 Rx ISOSORBIDE MONOnitrate [Imdur ER] 120 mg PO QDAY tablet 03/01/19 03/05/19 03/04/19 Rx Metoprolol [Lopressor TAB] 50 mg PO BID tablet 03/01/19 03/05/19 Unknown Rx Aspirin EC 325 mg PO QDAY #30 tablet 03/03/19 03/05/19 03/04/19 Rx Folic Acid [Folvite] 1 mg PO QDAY #30 tablet 03/03/19 03/05/19 03/04/19 Rx Insulin NPH/Regular [NovoLIN 70/30] 8 unit SUB-Q ACHS 03/05/19 03/05/19 Unknown History Active Meds: Active Medications Aztreonam (Azactam/Ns 1 Gm/50 Ml) 1 gm in 50 mls @ 50 mls/hr IV Q8H MAYLIN; Protocol Vancomycin HCl (Vancomycin/Ns 1 Gm/250 Ml) 1 gm in 250 mls @ 250 mls/hr IV Q18H MAYLIN Exam - Constitutional Vitals: Temp Pulse Resp BP Pulse Ox 98.7 F 72 20 124/73 100 03/04/19 22:33 03/05/19 03:25 03/05/19 01:43 03/05/19 01:43 03/05/19 02:24 General appearance: Present: severe distress (on BiPAP), well-nourished - EENT Eyes: Present: PERRL ENT: hearing intact, clear oral mucosa - Neck Neck: Present: supple, normal ROM - Respiratory Respiratory effort: normal Respiratory: bilateral: diminished, rhonchi, wheezing - Cardiovascular Heart rate: 78 Rhythm: regular Heart Sounds: Present: S1 & S2. Absent: rub, click - Extremities Extremities: no ischemia, pulses intact, pulses symmetrical, No edema Peripheral Pulses: within normal limits - Abdominal General gastrointestinal: Present: soft, non-tender, non-distended, normal bowel sounds Female genitourinary: Present: normal - Rectal Rectal Exam: deferred - Integumentary Integumentary: Present: clear, warm, dry - Musculoskeletal Musculoskeletal: gait normal, strength equal bilaterally - Psychiatric Psychiatric: appropriate mood/affect, intact judgment & insight - Neurologic Neurologic: CNII-XII intact, moves all extremities - Allied Health Allied health notes reviewed: nursing, case management Results - Labs CBC & Chem 7: 03/04/19 23:02 03/04/19 23:02 Labs: Laboratory Last Values WBC 26.4 K/mm3 (4.5-11.0) H 03/04/19 23:02 RBC 3.09 M/mm3 (3.65-5.03) L 03/04/19 23:02 Hgb 7.7 gm/dl (10.1-14.3) L 03/04/19 23:02 Hct 24.9 % (30.3-42.9) L 03/04/19 23:02 MCV 81 fl (79-97) 03/04/19 23:02 MCH 25 pg (28-32) L 03/04/19 23:02 MCHC 31 % (30-34) 03/04/19 23:02 RDW 20.7 % (13.2-15.2) H 03/04/19 23:02 Plt Count 491 K/mm3 (140-440) H 03/04/19 23:02 Add Manual Diff Complete 03/04/19 23:02 Total Counted 100 03/04/19 23:02 Seg Neutrophils % Second Steward 03/04/19 23:02 Seg Neuts % (Manual) 96.0 % (40.0-70.0) H 03/04/19 23:02 Band Neutrophils % 0 % 03/04/19 23:02 Lymphocytes % (Manual) 1.0 % (13.4-35.0) L 03/04/19 23:02 Reactive Lymphs % (Man) 0 % 03/04/19 23:02 Monocytes % (Manual) 1.0 % (0.0-7.3) 03/04/19 23:02 Eosinophils % (Manual) 2.0 % (0.0-4.3) 03/04/19 23:02 Basophils % (Manual) 0 % (0.0-1.8) 03/04/19 23:02 Metamyelocytes % 0 % 03/04/19 23:02 Myelocytes % 0 % 03/04/19 23:02 Promyelocytes % 0 % 03/04/19 23:02 Blast Cells % 0 % 03/04/19 23:02 Nucleated RBC % Not Reportable 03/04/19 23:02 Seg Neutrophils # Man 25.3 K/mm3 (1.8-7.7) H 03/04/19 23:02 Band Neutrophils # 0.0 K/mm3 03/04/19 23:02 Lymphocytes # (Manual) 0.3 K/mm3 (1.2-5.4) L 03/04/19 23:02 Abs React Lymphs (Man) 0.0 K/mm3 03/04/19 23:02 Monocytes # (Manual) 0.3 K/mm3 (0.0-0.8) 03/04/19 23:02 Eosinophils # (Manual) 0.5 K/mm3 (0.0-0.4) H 03/04/19 23:02 Basophils # (Manual) 0.0 K/mm3 (0.0-0.1) 03/04/19 23:02 Metamyelocytes # 0.0 K/mm3 03/04/19 23:02 Myelocytes # 0.0 K/mm3 03/04/19 23:02 Promyelocytes # 0.0 K/mm3 03/04/19 23:02 Blast Cells # 0.0 K/mm3 03/04/19 23:02 WBC Morphology Not Reportable 03/04/19 23:02 Hypersegmented Neuts Not Reportable 03/04/19 23:02 Hyposegmented Neuts Not Reportable 03/04/19 23:02 Hypogranular Neuts Not Reportable 03/04/19 23:02 Smudge Cells Not Reportable 03/04/19 23:02 Toxic Granulation Not Reportable 03/04/19 23:02 Toxic Vacuolation Not Reportable 03/04/19 23:02 Dohle Bodies Not Reportable 03/04/19 23:02 Pelger-Huet Anomaly Not Reportable 03/04/19 23:02 Jessica Rods Not Reportable 03/04/19 23:02 Platelet Estimate Consistent w auto 03/04/19 23:02 Clumped Platelets Not Reportable 03/04/19 23:02 Plt Clumps, EDTA Not Reportable 03/04/19 23:02 Large Platelets Not Reportable 03/04/19 23:02 Giant Platelets Not Reportable 03/04/19 23:02 Platelet Satelliting Not Reportable 03/04/19 23:02 Plt Morphology Comment Not Reportable 03/04/19 23:02 RBC Morphology Not Reportable 03/04/19 23:02 Dimorphic RBCs Not Reportable 03/04/19 23:02 Polychromasia Not Reportable 03/04/19 23:02 Hypochromasia 1+ 03/04/19 23:02 Poikilocytosis Not Reportable 03/04/19 23:02 Anisocytosis 1+ 03/04/19 23:02 Microcytosis Not Reportable 03/04/19 23:02 Macrocytosis Not Reportable 03/04/19 23:02 Spherocytes Not Reportable 03/04/19 23:02 Pappenheimer Bodies Not Reportable 03/04/19 23:02 Sickle Cells Not Reportable 03/04/19 23:02 Target Cells Few 03/04/19 23:02 Tear Drop Cells Not Reportable 03/04/19 23:02 Ovalocytes Not Reportable 03/04/19 23:02 Helmet Cells Not Reportable 03/04/19 23:02 Ling-[place] Bodies Not Reportable 03/04/19 23:02 [place] Rings Not Reportable 03/04/19 23:02 [place] Cells Not Reportable 03/04/19 23:02 Bite Cells Not Reportable 03/04/19 23:02 Crenated Cell Not Reportable 03/04/19 23:02 Elliptocytes Not Reportable 03/04/19 23:02 Acanthocytes (Spur) Not Reportable 03/04/19 23:02 Rouleaux Not Reportable 03/04/19 23:02 Hemoglobin C Crystals Not Reportable 03/04/19 23:02 Schistocytes Not Reportable 03/04/19 23:02 Malaria parasites Not Reportable 03/04/19 23:02 Galen Bodies Not Reportable 03/04/19 23:02 Hem Pathologist Commnt No 03/04/19 23:02 POC ABG pH 7.375 (7.35-7.45) 03/05/19 03:29 POC ABG pCO2 42.4 (35-45) 03/05/19 03:29 POC ABG pO2 109 (80-105) H 03/05/19 03:29 POC ABG HCO3 24.7 (22-26 mml/L) 03/05/19 03:29 POC ABG Total CO2 26 (23-27mmol/L) 03/05/19 03:29 POC ABG O2 Sat 98 03/05/19 03:29 POC ABG Base Excess 0 ((-2) - (+3)mmol/L) 03/05/19 03:29 FiO2 40 % 03/05/19 03:29 Sodium 135 mmol/L (137-145) L 03/04/19 23:02 Potassium 4.3 mmol/L (3.6-5.0) 03/04/19 23:02 Chloride 99.5 mmol/L (98-107) 03/04/19 23:02 Carbon Dioxide 22 mmol/L (22-30) 03/04/19 23:02 Anion Gap 18 mmol/L 03/04/19 23:02 BUN 37 mg/dL (7-17) H 03/04/19 23:02 Creatinine 1.2 mg/dL (0.7-1.2) 03/04/19 23:02 Estimated GFR 53 ml/min 03/04/19 23:02 BUN/Creatinine Ratio 31 % 03/04/19 23:02 Glucose 338 mg/dL (65-100) H 03/04/19 23:02 Lactic Acid 1.70 mmol/L (0.7-2.0) 03/05/19 00:53 Calcium 8.2 mg/dL (8.4-10.2) L 03/04/19 23:02 Total Bilirubin 0.20 mg/dL (0.1-1.2) 03/04/19 23:02 AST 32 units/L (5-40) 03/04/19 23:02 ALT 27 units/L (7-56) 03/04/19 23:02 Alkaline Phosphatase 84 units/L (35-129) 03/04/19 23:02 Troponin T 0.192 ng/mL (0.00-0.029) H* 03/04/19 23:02 NT-Pro-B Natriuret Pep 08714 pg/mL (0-900) H 03/04/19 23:02 Total Protein 6.6 g/dL (6.3-8.2) 03/04/19 23:02 Albumin 2.9 g/dL (3.9-5) L 03/04/19 23:02 Albumin/Globulin Ratio 0.8 % 03/04/19 23:02 Triglycerides 96 mg/dL (2-149) 03/04/19 23:02 Cholesterol 155 mg/dL (50-199) 03/04/19 23:02 LDL Cholesterol Direct 43 mg/dL (50-130) L 03/04/19 23:02 HDL Cholesterol 98 mg/dL (40-59) H 03/04/19 23:02 Cholesterol/HDL Ratio 1.58 % 03/04/19 23:02 Short CBC 03/04/19 Range/Units 23:02 WBC 26.4 H (4.5-11.0) K/mm3 Hgb 7.7 L (10.1-14.3) gm/dl Hct 24.9 L (30.3-42.9) % Plt Count 491 H (140-440) K/mm3 BMP 03/04/19 23:02 Sodium 135 L Potassium 4.3 Chloride 99.5 Carbon Dioxide 22 BUN 37 H Creatinine 1.2 Glucose 338 H Calcium 8.2 L Cardiac Enzymes 03/04/19 Range/Units 23:02 Troponin T 0.192 H* (0.00-0.029) ng/mL Liver Function 03/04/19 Range/Units 23:02 Total Bilirubin 0.20 (0.1-1.2) mg/dL AST 32 (5-40) units/L ALT 27 (7-56) units/L Alkaline Phosphatase 84 (35-129) units/L Albumin 2.9 L (3.9-5) g/dL - Imaging and Cardiology Chest x-ray: report reviewed Imaging and Cardiology: Chest x-ray IMPRESSION: 1. New opacification of the left hemithorax that suggests either a large pleural effusion and/or atelectasis. 2. Mild interstitial edema. Assessment and Plan Advance Directives: Yes (full code) VTE prophylaxis?: Chemical Plan of care discussed with patient/family: Yes - Patient Problems (1) Sepsis, unspecified organism Current Visit: No Status: Acute Plan to address problem: Patient with sepsis but no hypotension. IV antibiotics in the form of aztreonam IV fluids (2) Acute respiratory failure with hypoxemia Current Visit: Yes Status: Acute Plan to address problem: Patient initiated on IV antibiotics, IV Solu-Medrol and duo nebs [id number] and when necessary Patient is on BiPAP Intubation if necessary DO NOT RESUSCITATE to be discussed by the primary team Patient's prognosis is very poor (3) COPD with exacerbation Current Visit: Yes Status: Acute Plan to address problem: Patient is on IV antibiotics, IV Solu-Medrol and DuoNebs [id number] and When Necessary Patient is on BiPAP Intubation if necessary (4) Symptomatic anemia Current Visit: Yes Status: Acute Plan to address problem: Transfuse 1 unit of packed red blood cell Anemia workup (5) Squamous cell carcinoma of lungs, bilateral Current Visit: Yes Status: Chronic Plan to address problem: Hematology oncology consulted (6) Gout Current Visit: Yes Status: Inactive Plan to address problem: Continue allopurinol for prevention (7) PAD (peripheral artery disease) Current Visit: Yes Status: Chronic Plan to address problem: Patient is on Pletal--continue the same (8) Diabetes type 2, uncontrolled Current Visit: No Status: Chronic Qualifiers: Coma presence: without coma Plan to address problem: Continue home insulin and coverage Check hemoglobin A1c (9) CHF (congestive heart failure) Current Visit: No Status: Chronic Qualifiers: Heart failure type: combined systolic and diastolic Heart failure chronicity: unspecified Qualified Code(s): I50.40 - Unspecified combined sy stolic (congestive) and diastolic (congestive) heart failure Plan to address problem: Continue Lasix (10) Coronary artery disease Current Visit: Yes Status: Chronic Qualifiers: Coronary Disease-Associated Artery/Lesion type: [place] artery [place] vs. transplanted heart: [place] heart Plan to address problem: Continue aspirin (11) Hyperlipidemia Current Visit: Yes Status: Chronic Qualifiers: Hyperlipidemia type: mixed hyperlipidemia Qualified Code(s): E78.2 - Mixed hyperlipidemia Plan to address problem: Continue statins (12) GERD (gastroesophageal reflux disease) Current Visit: Yes Status: Chronic Qualifiers: Esophagitis presence: without esophagitis Qualified Code(s): K21.9 - Gastro-esophageal reflux disease without esophagitis Plan to address problem: Continue PPI S (13) DVT prophylaxis Current Visit: No Status: Acute Plan to address problem: On heparin 5000 every 12 and GI prophylaxis
[2019-03-05] MEDS ORDERED: ONDANSETRON 4 MG/2 ML INJ IV PRN (03:59)
[2019-03-05] MEDS ORDERED: HYDROmorphone 1 MG/1 ML INJ IV PRN (03:59)
[2019-03-05] MEDS ORDERED: METOCLOPRAMIDE 10 MG/2 ML INJ IV PRN (03:59)
[2019-03-05] MEDS ORDERED: IPRATROPIUM/ALBUTEROL SULFATE 3 ML AMPUL.NEB IH PRN (04:01)
[2019-03-05] MEDS ORDERED: ALBUTEROL 2.5 MG/3 ML NEBU IH PRN (04:20)
[2019-03-05] MEDS ORDERED: SODIUM CHLORIDE 0.9% 500 ML 500 ML IV ONE (07:15)
[2019-03-05] MEDS ORDERED: INSULIN NPH/REGULAR 70/30 INJ SUB-Q SCH (07:30)
[2019-03-05] MEDS: AZTREONAM/NS 1 GM/50 ML 1 GM/50 ML VIAL IV SCH ×4 (07:37→22:15)
[2019-03-05] MEDS: hydrALAZINE 25 MG TAB PO SCH ×3 (07:47→22:15)
[2019-03-05] MEDS: methylPREDNISolone Sod Succinate 125 MG/2 ML INJ IV SCH ×3 (07:47→22:19)
[2019-03-05] MEDS ORDERED: IPRATROPIUM/ALBUTEROL SULFATE 3 ML AMPUL.NEB IH SCH (08:00)
[2019-03-05] MEDS: INSULIN LISPRO 100 UNIT/ML SUB-Q SCH ×8 (08:42→22:18)
[2019-03-05] MEDS: METOPROLOL TARTRATE 50 MG TAB PO SCH ×2 (08:43→16:19)
--- NOTE | 2019-03-05 09:02 | Consultation ---
History of Present Illness Reason for consult: dyspnea, pleural effusion, other (lung cancer) History of present illness: This is a patient who was recently admitted w sob found to have squamous cell of lung now w possible effusion of lt lung. She was recent transfered to [facility] and came back last pm with sob and low o2 sat. She had cxr that showed opacification on lt. Effusion vs atlectasis. She was placed on bipap and now is doing better w o2 sat on ra at 94%. Past History Past Medical History: CAD, cancer, COPD, diabetes, GERD, other (gout) Past Surgical History: No surgical history Social history: smoking Family history: cancer, diabetes, hypertension Medications and Allergies Allergies Allergy/AdvReac Type Severity Reaction Status Date / Time ibuprofen Allergy Unknown Verified 02/18/19 23:29 Penicillins Allergy Unknown Verified 02/18/19 23:29 Home Medications Medication Instructions Recorded Confirmed Last Taken Type Allopurinol 100 mg PO DAILY 12/26/18 03/05/19 03/04/19 History Cilostazol 50 mg PO BID 12/26/18 03/05/19 03/04/19 History Ferrous Sulfate 325 mg PO DAILY 12/26/18 03/05/19 03/04/19 History Ipratropium (Nf) [Atrovent HFA 2 puff IH Q6HR PRN #1 inha 01/11/19 03/05/19 Unknown Rx 17MCG/PUFF] AtorvaSTATin [Lipitor] 40 mg PO QHS 02/09/19 03/05/19 03/04/19 History Pantoprazole [Protonix TAB] 40 mg PO QDAY #30 tablet 02/16/19 03/05/19 Unknown Rx hydrALAZINE [Apresoline TAB] 25 mg PO Q8HR #90 tablet 02/16/19 03/05/19 03/04/19 Rx Furosemide [Lasix TAB] 20 mg PO QDAY tablet 03/01/19 03/05/19 03/04/19 Rx ISOSORBIDE MONOnitrate [Imdur ER] 120 mg PO QDAY tablet 03/01/19 03/05/19 03/04/19 Rx Metoprolol [Lopressor TAB] 50 mg PO BID tablet 03/01/19 03/05/19 Unknown Rx Aspirin EC 325 mg PO QDAY #30 tablet 03/03/19 03/05/19 03/04/19 Rx Folic Acid [Folvite] 1 mg PO QDAY #30 tablet 03/03/19 03/05/19 03/04/19 Rx Insulin NPH/Regular [NovoLIN 70/30] 8 unit SUB-Q ACHS 03/05/19 03/05/19 Unknown History Active Meds: Active Medications Acetaminophen (Tylenol) 650 mg PO Q4H PRN PRN Reason: Pain MILD(1-3)/Fever >100.5/[place] Albuterol (Proventil) 2.5 mg IH Q3HRT PRN PRN Reason: Shortness Of Breath Albuterol/Ipratropium (Duoneb *Not For Prn Use*) [address] [facility] Last Admin: 03/05/19 08:15 Dose: 1 ampul Documented by: Allopurinol (Zyloprim) [address] [facility] Aspirin (Ecotrin) [address] [facility] Atorvastatin Calcium (Lipitor) [address] [facility] Cilostazol (Pletal) [address] [facility] Ferrous Sulfate (Feosol) [address] [facility] Folic Acid (Folvite) [address] [facility] Furosemide (Lasix) [address] [facility] Heparin Sodium (Porcine) (Heparin) 5,000 unit SUB-Q Q12HR [facility] Hydralazine HCl (Apresoline) [address] [facility] Last Admin: 03/05/19 07:47 Dose: 25 mg Documented by: Hydromorphone HCl (Dilaudid) 0.5 mg IV Q3H PRN PRN Reason: Pain , Severe (7-10) Aztreonam (Azactam/Ns 1 Gm/50 Ml) 1 gm in 50 mls @ 50 mls/hr IV Q8H [facility]; Protocol Last Admin: 03/05/19 07:37 Dose: 50 mls/hr Documented by: Vancomycin HCl (Vancomycin/Ns 1 Gm/250 Ml) 1 gm in 250 mls @ 250 mls/hr IV Q18H [facility] Insulin Human Lispro (Humalog) 5 unit SUB-Q [facility] Last Admin: 03/05/19 08:55 Dose: 5 unit Documented by: Insulin Human Lispro (Humalog) 0 unit SUB-Q ACHS [facility]; Protocol Last Admin: 03/05/19 08:42 Dose: 4 unit Documented by: Isosorbide Mononitrate (Imdur) [address] [facility] Methylprednisolone Sodium Succinate (Solu-Medrol) [address] [facility] Last Admin: 03/05/19 07:47 Dose: 125 mg Documented by: Metoclopramide HCl (Reglan) 10 mg IV Q6H PRN PRN Reason: Nausea And Vomiting Metoprolol Tartrate (Metoprolol) 50 mg PO BID@0800,1700 [facility] Last Admin: 03/05/19 08:43 Dose: 50 mg Documented by: Ondansetron HCl (Zofran) 4 mg IV Q3H PRN PRN Reason: Nausea And Vomiting Oxycodone/Acetaminophen (Percocet 5/325) 1 tab PO Q6H PRN PRN Reason: Pain, Moderate (4-6) Pantoprazole Sodium (Protonix) [address] [facility] Sodium Chloride (Sodium Chloride Flush Syringe 10 Ml) [address] [facility] Sodium Chloride (Sodium Chloride Flush Syringe 10 Ml) 10 ml IV PRN PRN PRN Reason: LINE FLUSH Review of Systems Respiratory: cough, shortness of breath, congestion Gastrointestinal: dyspepsia/bloating Physical Examination Vital signs: Vital Signs Temp Pulse Resp BP Pulse Ox 98.7 F 121 H 30 H 193/91 100 03/04/19 22:33 03/04/19 22:33 03/04/19 22:33 03/04/19 22:33 03/04/19 22:33 General appearance: no acute distress, alert Eyes: non-icteric ENT: oropharynx moist Neck: supple Ascultation: Bilateral: clear Cardiovascular: regular rate and rhythm Gastrointestinal: normoactive bowel sounds, soft, non-tender, non-distended Integumentary: normal Extremities: no cyanosis Musculoskeletal: no deformities normal mental status, non-focal exam mood appropriate, affect normal Results - Laboratory Findings CBC and BMP: 03/04/19 23:02 03/04/19 23:02 ABG POC ABG pH 7.375 (7.35-7.45) 03/05/19 03:29 POC ABG pCO2 42.4 (35-45) 03/05/19 03:29 POC ABG pO2 109 (80-105) H 03/05/19 03:29 POC ABG HCO3 24.7 (22-26 mml/L) 03/05/19 03:29 POC ABG Total CO2 26 (23-27mmol/L) 03/05/19 03:29 POC ABG O2 Sat 98 03/05/19 03:29 Abnormal lab findings: Abnormal Labs 03/04/19 03/04/19 03/04/19 23:02 23:02 23:02 WBC 26.4 H RBC 3.09 L Hgb 7.7 L Hct 24.9 L MCH 25 L RDW 20.7 H Plt Count 491 H Seg Neuts % (Manual) 96.0 H Lymphocytes % (Manual) 1.0 L Seg Neutrophils # Man 25.3 H Lymphocytes # (Manual) 0.3 L Eosinophils # (Manual) 0.5 H POC ABG pO2 Sodium 135 L BUN 37 H Glucose 338 H Hemoglobin A1c Calcium 8.2 L Troponin T 0.192 H* NT-Pro-B Natriuret Pep 53781 H Albumin 2.9 L LDL Cholesterol Direct 43 L HDL Cholesterol 98 H 03/05/19 03/05/19 03:29 05:47 WBC RBC Hgb Hct MCH RDW Plt Count Seg Neuts % (Manual) Lymphocytes % (Manual) Seg Neutrophils # Man Lymphocytes # (Manual) Eosinophils # (Manual) POC ABG pO2 109 H Sodium BUN Glucose Hemoglobin A1c 6.6 H Calcium Troponin T NT-Pro-B Natriuret Pep Albumin LDL Cholesterol Direct HDL Cholesterol - Diagnostic Findings Chest x-ray: report reviewed, image reviewed CT scan - chest: report reviewed, image reviewed Assessment and Plan - Patient Problems (1) Hypoxia Current Visit: Yes Status: Acute (2) Acute respiratory failure with hypoxemia Current Visit: Yes Status: Acute (3) COPD with exacerbation Current Visit: Yes Status: Acute (4) Lung mass Current Visit: Yes Status: Acute (5) Pleural effusion Current Visit: Yes Status: Acute (6) Cardiomyopathy Current Visit: Yes Status: Chronic
[2019-03-05] MEDS: allopurinoL 100 MG TAB PO SCH (09:06)
[2019-03-05] MEDS: FERROUS SULFATE 325 MG TAB PO SCH (09:06)
[2019-03-05] MEDS: CILOSTAZOL 100 MG TAB PO SCH ×2 (09:06→22:14)
[2019-03-05] MEDS: FOLIC ACID 1 MG TAB PO SCH (09:06)
[2019-03-05] MEDS: FUROSEMIDE 20 MG TAB PO SCH (09:06)
[2019-03-05] MEDS: PANTOPRAZOLE 40 MG TAB PO SCH (09:06)
[2019-03-05] MEDS: HEPARIN 5,000 UNIT/1 ML VIAL SUB-Q SCH ×2 (09:07→22:15)
[2019-03-05] MEDS: ASPIRIN EC 325 MG TAB PO SCH (09:17)
[2019-03-05] MEDS ORDERED: FAMOTIDINE 20 MG TAB PO SCH (10:00)
--- NOTE | 2019-03-05 10:06 | Consultation ---
History of Present Illness Consult date: 03/05/19 Requesting physician: JENIFER REINA Consult reason: congestive heart failure History of present illness: Ms. Romero is a 73 y/o female who presented to [facility] from her rehab facility with worsening shortness of breath. She was discharged from [facility] on 03/04 after a stay for a similar presentation and reports that shortly after she got to the facility, she again became SOB. She is known to us from this last hospitalization. She has a medical history significant for newly diagnosed squamous cell lung cancer, cardiomyopathy, chronic HFrEF, COPD, hypertension, CAD s/p PCI and type 2 diabetes. Her initial troponin was elevated to 0.192; however, she denies any chest pain. A CXR was suggestive of a large left pleural effusion and/or atelectasis. An echocardiogram on 02/19/19 found an EF of 30 to 35 percent, impaired relaxation, mild MR, mild TR and moderately reduced RV systolic function. A stress test on 02/23/19 was abnormal and showed a medium-sized, minimally reversible defect; a medium-sized partially reversible inferoapical defect and a small fixed anterior defect. Past History Past Medical History: CAD, cancer, COPD, diabetes, GERD, heart failure, other (gout, cardiomyopathy ) Past Surgical History: No surgical history Social history: smoking Family history: cancer, diabetes, hypertension Medications and Allergies Allergies Allergy/AdvReac Type Severity Reaction Status Date / Time ibuprofen Allergy Unknown Verified 02/18/19 23:29 Penicillins Allergy Unknown Verified 02/18/19 23:29 Home Medications Medication Instructions Recorded Confirmed Last Taken Type Allopurinol 100 mg PO DAILY 12/26/18 03/05/19 03/04/19 History Cilostazol 50 mg PO BID 12/26/18 03/05/19 03/04/19 History Ferrous Sulfate 325 mg PO DAILY 12/26/18 03/05/19 03/04/19 History Ipratropium (Nf) [Atrovent HFA 2 puff IH Q6HR PRN #1 inha 01/11/19 03/05/19 Unknown Rx 17MCG/PUFF] AtorvaSTATin [Lipitor] 40 mg PO QHS 02/09/19 03/05/19 03/04/19 History Pantoprazole [Protonix TAB] 40 mg PO QDAY #30 tablet 02/16/19 03/05/19 Unknown Rx hydrALAZINE [Apresoline TAB] 25 mg PO Q8HR #90 tablet 02/16/19 03/05/19 03/04/19 Rx Furosemide [Lasix TAB] 20 mg PO QDAY tablet 03/01/19 03/05/19 03/04/19 Rx ISOSORBIDE MONOnitrate [Imdur ER] 120 mg PO QDAY tablet 03/01/19 03/05/19 03/04/19 Rx Metoprolol [Lopressor TAB] 50 mg PO BID tablet 03/01/19 03/05/19 Unknown Rx Aspirin EC 325 mg PO QDAY #30 tablet 03/03/19 03/05/19 03/04/19 Rx Folic Acid [Folvite] 1 mg PO QDAY #30 tablet 03/03/19 03/05/19 03/04/19 Rx Insulin NPH/Regular [NovoLIN 70/30] 8 unit SUB-Q ACHS 03/05/19 03/05/19 Unknown History Active Meds: Active Medications Acetaminophen (Tylenol) 650 mg PO Q4H PRN PRN Reason: Pain MILD(1-3)/Fever >100.5/[place] Albuterol (Proventil) 2.5 mg IH Q3HRT PRN PRN Reason: Shortness Of Breath Albuterol/Ipratropium (Duoneb *Not For Prn Use*) 1 ampul IH QIDRT [facility] Last Admin: 03/05/19 08:15 Dose: 1 ampul Documented by: Allopurinol (Zyloprim) 100 mg PO DAILY [facility] Last Admin: 03/05/19 09:06 Dose: 100 mg Documented by: Aspirin (Ecotrin) 325 mg PO QDAY [facility] Last Admin: 03/05/19 09:17 Dose: 325 mg Documented by: Atorvastatin Calcium (Lipitor) 40 mg PO QHS [facility] Cilostazol (Pletal) 50 mg PO BID [facility] Last Admin: 03/05/19 09:06 Dose: 50 mg Documented by: Ferrous Sulfate (Feosol) 325 mg PO DAILY [facility] Last Admin: 03/05/19 09:06 Dose: 325 mg Documented by: Folic Acid (Folvite) 1 mg PO QDAY [facility] Last Admin: 03/05/19 09:06 Dose: 1 mg Documented by: Furosemide (Lasix) 20 mg PO QDAY [facility] Last Admin: 03/05/19 09:06 Dose: 20 mg Documented by: Heparin Sodium (Porcine) (Heparin) 5,000 unit SUB-Q Q12HR [facility] Last Admin: 03/05/19 09:07 Dose: 5,000 unit Documented by: Hydralazine HCl (Apresoline) 25 mg PO Q8HR [facility] Last Admin: 03/05/19 07:47 Dose: 25 mg Documented by: Hydromorphone HCl (Dilaudid) 0.5 mg IV Q3H PRN PRN Reason: Pain , Severe (7-10) Aztreonam (Azactam/Ns 1 Gm/50 Ml) 1 gm in 50 mls @ 50 mls/hr IV Q8H [facility]; Protocol Last Admin: 03/05/19 07:37 Dose: 50 mls/hr Documented by: Vancomycin HCl (Vancomycin/Ns 1 Gm/250 Ml) 1 gm in 250 mls @ 250 mls/hr IV Q24H [facility] Insulin Human Lispro (Humalog) 5 unit SUB-Q [facility] Last Admin: 03/05/19 08:55 Dose: 5 unit Documented by: Insulin Human Lispro (Humalog) 0 unit SUB-Q [facility]; Protocol Last Admin: 03/05/19 08:42 Dose: 4 unit Documented by: Isosorbide Mononitrate (Imdur) 120 mg PO QDAY [facility] Last Admin: 03/05/19 09:17 Dose: 120 mg Documented by: Methylprednisolone Sodium Succinate (Solu-Medrol) 125 mg IV Q8HR [facility] Last Admin: 03/05/19 07:47 Dose: 125 mg Documented by: Metoclopramide HCl (Reglan) 10 mg IV Q6H PRN PRN Reason: Nausea And Vomiting Metoprolol Tartrate (Metoprolol) 50 mg PO BID@0800,1700 [facility] Last Admin: 03/05/19 08:43 Dose: 50 mg Documented by: Ondansetron HCl (Zofran) 4 mg IV Q3H PRN PRN Reason: Nausea And Vomiting Oxycodone/Acetaminophen (Percocet 5/325) 1 tab PO Q6H PRN PRN Reason: Pain, Moderate (4-6) Pantoprazole Sodium (Protonix) 40 mg PO QDAY [facility] Last Admin: 03/05/19 09:06 Dose: 40 mg Documented by: Sodium Chloride (Sodium Chloride Flush Syringe 10 Ml) 10 ml IV BID [facility] Last Admin: 03/05/19 09:07 Dose: 10 ml Documented by: Sodium Chloride (Sodium Chloride Flush Syringe 10 Ml) 10 ml IV PRN PRN PRN Reason: LINE FLUSH Review of Systems All systems: negative Respiratory: shortness of breath Physical Examination Vital Signs Temp Pulse Resp BP Pulse Ox 98.7 F 121 H 30 H 193/91 100 03/04/19 22:33 03/04/19 22:33 03/04/19 22:33 03/04/19 22:33 03/04/19 22:33 General appearance: no acute distress HEENT: Positive: PERRL Neck: Positive: neck supple Cardiac: Positive: Reg Rate and Rhythm Lungs: Positive: Decreased Breath Sounds Neuro: Positive: Grossly Intact Abdomen: Positive: Unremarkable Female genitourinary: deferred Skin: Positive: Clear Musculoskeletal: Normal Range of Motion Extremities: Present: normal Results 03/04/19 23:02 03/04/19 23:02 Cardiac Enzymes 03/04/19 Range/Units 23:02 AST 32 (5-40) units/L Lipids 03/04/19 Range/Units 23:02 Triglycerides 96 (2-149) mg/dL Cholesterol 155 (50-199) mg/dL HDL Cholesterol 98 H (40-59) mg/dL Cholesterol/HDL Ratio 1.58 % CBC 03/04/19 Range/Units 23:02 WBC 26.4 H (4.5-11.0) K/mm3 RBC 3.09 L (3.65-5.03) M/mm3 Hgb 7.7 L (10.1-14.3) gm/dl Hct 24.9 L (30.3-42.9) % Plt Count 491 H (140-440) K/mm3 Comprehensive Metabolic Panel 03/04/19 Range/Units 23:02 Sodium 135 L (137-145) mmol/L Potassium 4.3 (3.6-5.0) mmol/L Chloride 99.5 (98-107) mmol/L Carbon Dioxide 22 (22-30) mmol/L BUN 37 H (7-17) mg/dL Creatinine 1.2 (0.7-1.2) mg/dL Glucose 338 H (65-100) mg/dL Calcium 8.2 L (8.4-10.2) mg/dL AST 32 (5-40) units/L ALT 27 (7-56) units/L Alkaline Phosphatase 84 (35-129) units/L Total Protein 6.6 (6.3-8.2) g/dL Albumin 2.9 L (3.9-5) g/dL - Imaging and Cardiology Echo: report reviewed (02/23: EF of 30 to 35 percent, impaired relaxation, mild MR, mild TR and moderately reduced RV systolic function) - EKG Interpretation EKG: sinus rhythm EKG interpretations - Telemetry EKG Rhythm: Sinus Rhythm Repolarization changes or abnormalities: nonspecific abnormality, ST segment, and/or T wave Assessment and Plan Ms. Romero is a 73 y/o female who returned to [facility] after a discharge the previous day with SOB. Her presentation is consistent NSTEMI Type II. Discussed with pulmonology - will obtain oncology consult and continue her current cardiac regimen for now. May consider LHC depending on prognosis. The patient has been seen in conjunction with Dr. Munir Negron, who agrees with the assessment and plan. - Patient Problems (1) NSTEMI (non-ST elevated myocardial infarction) Current Visit: No Status: Acute Plan to address problem: Type II (2) Acute respiratory failure with hypoxemia Current Visit: Yes Status: Acute (3) COPD with exacerbation Current Visit: Yes Status: Acute (4) Pleural effusion Current Visit: Yes Status: Acute (5) Chronic HFrEF (heart failure with reduced ejection fraction) Current Visit: Yes Status: Chronic (6) Cardiomyopathy Current Visit: Yes Status: Chronic (7) Coronary artery disease Current Visit: Yes Status: Chronic Qualifiers: Coronary Disease-Associated Artery/Lesion type: [place] artery [place] vs. transplanted heart: [place] heart (8) PAD (peripheral artery disease) Current Visit: Yes Status: Chronic (9) Abnormal stress test Current Visit: No Status: Chronic (10) Anemia Current Visit: No Status: Chronic (11) Diabetes Current Visit: No Status: Chronic (12) Lung cancer Current Visit: No Status: Suspected
--- NOTE | 2019-03-05 10:33 | Progress Note ---
Assessment and Plan Assessment and plan: 72-year-old -[place]ian female with history of COPD, hypertension, insulin- dependent diabetes, CHF, coronary artery disease, lung cancer diagnosed few days ago. She was just discharged from hospital to SNF 2 days ago on 03/03. She comes in for increasing shortness of breath and low oxygen saturations from [facility]. Oxygen saturation is very in the low 80s. Patient was also wheezing and in respiratory distress. She was put on BIPAP and admitted Acute on chronic resp failure patient was discharged home on 03/03/19 to [facility] on Oxygen at 2l/min NC Returned to ED following day 03/04 Anemia Transfuse 1 Unit PRBC because of more shortness of breath, CHF Lung cancer on left from pathology Left lung cavitating lung lesion and L pleural effusion: The patient also been treated for cavitary pneumonia Pleural fluid 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 Followed by Pulmonary. S/p CT-guided lung biopsy- path shows lung cancer Left pleural effusion Thoracentesis done 02/[address] Carey that prelim path suggests squamous cell ca therfore CT biopsy lung FARAZ ordered Acute hypoxic respiratory failure Possibly secondary to underlying pneumonia and malignancy, left pleural effusion and CHF exacerbation. She has been placed on BiPAP - now weaned off s/p thoracentesis on 02/19 drained 700cc fluid, 2-D echo showed EF of 30-35% Acute on chronic systolic CHF We will continue patient on routine home medications. Will monitor daily weight monitor input and output. 2-D echo showed EF of 30-35%, we'll continue [facility] Cardiology following. Stress test done 02/23 abnormal. Was scheduled for cardiac cath but canceled because of anemia NEELIMA, acute on CKD? Cr 1.2 Physical debility, PT recommended acute rehab DVT prophylaxis: Heparin Full code status History Interval history: Less shortness of breath No chest pain currently Hospitalist Physical - Physical exam Narrative exam: Gen: Not in acute distress, lying in bed, HEENT: Normocephalic, atraumatic Neck: supple, no JVD Heart: S1 and S2 reg, no murmurs, rubs or gallop Lungs: Clear to auscultation bilaterally, Abd: soft, non tender, non distended, normal BS, Ext: No edema, no clubbing, no cyanosis Neuro: Awake, alert, oriented X 3, no focal neurological signs - Constitutional Vitals: Temp Pulse Resp BP Pulse Ox 98.2 F 72 18 173/76 100 03/05/19 08:30 03/05/19 09:17 03/05/19 08:30 03/05/19 09:17 03/05/19 10:19 General appearance: Present: no acute distress Results - Labs CBC & Chem 7: 03/06/19 05:57 03/06/19 05:57 Labs: Laboratory Last Values WBC 26.4 K/mm3 (4.5-11.0) H 03/04/19 23:02 RBC 3.09 M/mm3 (3.65-5.03) L 03/04/19 23:02 Hgb 7.7 gm/dl (10.1-14.3) L 03/04/19 23:02 Hct 24.9 % (30.3-42.9) L 03/04/19 23:02 MCV 81 fl (79-97) 03/04/19 23:02 MCH 25 pg (28-32) L 03/04/19 23:02 MCHC 31 % (30-34) 03/04/19 23:02 RDW 20.7 % (13.2-15.2) H 03/04/19 23:02 Plt Count 491 K/mm3 (140-440) H 03/04/19 23:02 Add Manual Diff Complete 03/04/19 23:02 Total Counted 100 03/04/19 23:02 Seg Neutrophils % Exhibit Specialist 03/04/19 23:02 Seg Neuts % (Manual) 96.0 % (40.0-70.0) H 03/04/19 23:02 Band Neutrophils % 0 % 03/04/19 23:02 Lymphocytes % (Manual) 1.0 % (13.4-35.0) L 03/04/19 23:02 Reactive Lymphs % (Man) 0 % 03/04/19 23:02 Monocytes % (Manual) 1.0 % (0.0-7.3) 03/04/19 23:02 Eosinophils % (Manual) 2.0 % (0.0-4.3) 03/04/19 23:02 Basophils % (Manual) 0 % (0.0-1.8) 03/04/19 23:02 Metamyelocytes % 0 % 03/04/19 23:02 Myelocytes % 0 % 03/04/19 23:02 Promyelocytes % 0 % 03/04/19 23:02 Blast Cells % 0 % 03/04/19 23:02 Nucleated RBC % Not Reportable 03/04/19 23:02 Seg Neutrophils # Man 25.3 K/mm3 (1.8-7.7) H 03/04/19 23:02 Band Neutrophils # 0.0 K/mm3 03/04/19 23:02 Lymphocytes # (Manual) 0.3 K/mm3 (1.2-5.4) L 03/04/19 23:02 Abs React Lymphs (Man) 0.0 K/mm3 03/04/19 23:02 Monocytes # (Manual) 0.3 K/mm3 (0.0-0.8) 03/04/19 23:02 Eosinophils # (Manual) 0.5 K/mm3 (0.0-0.4) H 03/04/19 23:02 Basophils # (Manual) 0.0 K/mm3 (0.0-0.1) 03/04/19 23:02 Metamyelocytes # 0.0 K/mm3 03/04/19 23:02 Myelocytes # 0.0 K/mm3 03/04/19 23:02 Promyelocytes # 0.0 K/mm3 03/04/19 23:02 Blast Cells # 0.0 K/mm3 03/04/19 23:02 WBC Morphology Not Reportable 03/04/19 23:02 Hypersegmented Neuts Not Reportable 03/04/19 23:02 Hyposegmented Neuts Not Reportable 03/04/19 23:02 Hypogranular Neuts Not Reportable 03/04/19 23:02 Smudge Cells Not Reportable 03/04/19 23:02 Toxic Granulation Not Reportable 03/04/19 23:02 Toxic Vacuolation Not Reportable 03/04/19 23:02 Dohle Bodies Not Reportable 03/04/19 23:02 Pelger-Huet Anomaly Not Reportable 03/04/19 23:02 Jessica Rods Not Reportable 03/04/19 23:02 Platelet Estimate Consistent w auto 03/04/19 23:02 Clumped Platelets Not Reportable 03/04/19 23:02 Plt Clumps, EDTA Not Reportable 03/04/19 23:02 Large Platelets Not Reportable 03/04/19 23:02 Giant Platelets Not Reportable 03/04/19 23:02 Platelet Satelliting Not Reportable 03/04/19 23:02 Plt Morphology Comment Not Reportable 03/04/19 23:02 RBC Morphology Not Reportable 03/04/19 23:02 Dimorphic RBCs Not Reportable 03/04/19 23:02 Polychromasia Not Reportable 03/04/19 23:02 Hypochromasia 1+ 03/04/19 23:02 Poikilocytosis Not Reportable 03/04/19 23:02 Anisocytosis 1+ 03/04/19 23:02 Microcytosis Not Reportable 03/04/19 23:02 Macrocytosis Not Reportable 03/04/19 23:02 Spherocytes Not Reportable 03/04/19 23:02 Pappenheimer Bodies Not Reportable 03/04/19 23:02 Sickle Cells Not Reportable 03/04/19 23:02 Target Cells Few 03/04/19 23:02 Tear Drop Cells Not Reportable 03/04/19 23:02 Ovalocytes Not Reportable 03/04/19 23:02 Helmet Cells Not Reportable 03/04/19 23:02 [place] Bodies Not Reportable 03/04/19 23:02 [place] Rings Not Reportable 03/04/19 23:02 Lora Cells Not Reportable 03/04/19 23:02 Bite Cells Not Reportable 03/04/19 23:02 Crenated Cell Not Reportable 03/04/19 23:02 Elliptocytes Not Reportable 03/04/19 23:02 Acanthocytes (Spur) Not Reportable 03/04/19 23:02 Rouleaux Not Reportable 03/04/19 23:02 Hemoglobin C Crystals Not Reportable 03/04/19 23:02 Schistocytes Not Reportable 03/04/19 23:02 Malaria parasites Not Reportable 03/04/19 23:02 Galen Bodies Not Reportable 03/04/19 23:02 Hem Pathologist Commnt No 03/04/19 23:02 POC ABG pH 7.375 (7.35-7.45) 03/05/19 03:29 POC ABG pCO2 42.4 (35-45) 03/05/19 03:29 POC ABG pO2 109 (80-105) H 03/05/19 03:29 POC ABG HCO3 24.7 (22-26 mml/L) 03/05/19 03:29 POC ABG Total CO2 26 (23-27mmol/L) 03/05/19 03:29 POC ABG O2 Sat 98 03/05/19 03:29 POC ABG Base Excess 0 ((-2) - (+3)mmol/L) 03/05/19 03:29 FiO2 40 % 03/05/19 03:29 Sodium 135 mmol/L (137-145) L 03/04/19 23:02 Potassium 4.3 mmol/L (3.6-5.0) 03/04/19 23:02 Chloride 99.5 mmol/L (98-107) 03/04/19 23:02 Carbon Dioxide 22 mmol/L (22-30) 03/04/19 23:02 Anion Gap 18 mmol/L 03/04/19 23:02 BUN 37 mg/dL (7-17) H 03/04/19 23:02 Creatinine 1.2 mg/dL (0.7-1.2) 03/04/19 23:02 Estimated GFR 53 ml/min 03/04/19 23:02 BUN/Creatinine Ratio 31 % 03/04/19 23:02 Glucose 338 mg/dL (65-100) H 03/04/19 23:02 POC Glucose 295 (70-105) H 03/05/19 08:44 Hemoglobin A1c 6.6 % (4-6) H 03/05/19 05:47 Lactic Acid 1.20 mmol/L (0.7-2.0) 03/05/19 05:47 Calcium 8.2 mg/dL (8.4-10.2) L 03/04/19 23:02 Total Bilirubin 0.20 mg/dL (0.1-1.2) 03/04/19 23:02 AST 32 units/L (5-40) 03/04/19 23:02 ALT 27 units/L (7-56) 03/04/19 23:02 Alkaline Phosphatase 84 units/L (35-129) 03/04/19 23:02 Troponin T 0.192 ng/mL (0.00-0.029) H* 03/04/19 23:02 NT-Pro-B Natriuret Pep 23206 pg/mL (0-900) H 03/04/19 23:02 Total Protein 6.6 g/dL (6.3-8.2) 03/04/19 23:02 Albumin 2.9 g/dL (3.9-5) L 03/04/19 23:02 Albumin/Globulin Ratio 0.8 % 03/04/19 23:02 Triglycerides 96 mg/dL (2-149) 03/04/19 23:02 Cholesterol 155 mg/dL (50-199) 03/04/19 23:02 LDL Cholesterol Direct 43 mg/dL (50-130) L 03/04/19 23:02 HDL Cholesterol 98 mg/dL (40-59) H 03/04/19 23:02 Cholesterol/HDL Ratio 1.58 % 03/04/19 23:02 Blood Type O POSITIVE 03/05/19 07:10 Crossmatch See Detail 03/05/19 07:10 Active Medications - Current Medications Current Medications: Generic Name Dose Route Start Last Admin Trade Name Freq PRN Reason Stop Dose Admin Acetaminophen 650 mg 03/05/19 03:59 Tylenol PO Q4H PRN Pain MILD(1-3)/Fever >100.5/BRENNER Albuterol 2.5 mg 03/05/19 04:20 Proventil IH Q3HRT PRN Shortness Of Breath Albuterol/Ipratropium 1 ampul 03/05/19 08:00 03/05/19 08:15 Duoneb *Not For Prn Use* IH 1 ampul QIDRT MAYLIN Administration Allopurinol 100 mg 03/05/19 10:00 03/05/19 09:06 Zyloprim PO 100 mg DAILY MAYLIN Administration Aspirin 325 mg 03/05/19 10:00 03/05/19 09:17 Ecotrin PO 325 mg QDAY MAYLIN Administration Atorvastatin Calcium 40 mg 03/05/19 22:00 Lipitor PO QHS MAYLIN Cilostazol 50 mg 03/05/19 10:00 03/05/19 09:06 Pletal PO 50 mg BID MAYLIN Administration Ferrous Sulfate 325 mg 03/05/19 10:00 03/05/19 09:06 Feosol PO 325 mg DAILY MAYLIN Administration Folic Acid 1 mg 03/05/19 10:00 03/05/19 09:06 Folvite PO 1 mg QDAY MAYLIN Administration Furosemide 20 mg 03/05/19 10:00 03/05/19 09:06 Lasix PO 20 mg QDAY [facility] Administration Heparin Sodium (Porcine) 5,000 unit 03/05/19 10:00 03/05/19 09:07 Heparin SUB-Q 5,000 unit Q12HR [facility] Administration Hydralazine HCl 25 mg 03/05/19 06:00 03/05/19 07:47 Apresoline PO 25 mg Q8HR [facility] Administration Hydromorphone HCl 0.5 mg 03/05/19 03:59 Dilaudid IV Q3H PRN Pain , Severe (7-10) Aztreonam 1 gm in 50 mls @ 50 mls/hr 03/05/19 02:00 03/05/19 08:37 Azactam/Ns 1 Gm/50 Ml IV Infused Q8H [facility] Infusion Protocol Vancomycin HCl 1 gm in 250 mls @ 250 mls/hr 03/05/19 12:00 Vancomycin/Ns 1 Gm/250 Ml IV Q24H [facility] Insulin Human Lispro 5 unit 03/05/19 07:30 03/05/19 08:55 Humalog SUB-Q 5 unit [facility] Administration Insulin Human Lispro 0 unit 03/05/19 07:30 03/05/19 08:42 Humalog SUB-Q 4 unit [facility] Administration Protocol Isosorbide Mononitrate 120 mg 03/05/19 10:00 03/05/19 09:17 Imdur PO 120 mg QDAY [facility] Administration Methylprednisolone Sodium Succinate 125 mg 03/05/19 06:00 03/05/19 07:47 Solu-Medrol IV 125 mg Q8HR [facility] Administration Metoclopramide HCl 10 mg 03/05/19 03:59 Reglan IV Q6H PRN Nausea And Vomiting Metoprolol Tartrate 50 mg 03/05/19 08:00 03/05/19 08:43 Metoprolol PO 50 mg BID@0800,1700 [facility] Administration Ondansetron HCl 4 mg 03/05/19 03:59 Zofran IV Q3H PRN Nausea And Vomiting Oxycodone/Acetaminophen 1 tab 03/05/19 03:59 Percocet 5/325 PO Q6H PRN Pain, Moderate (4-6) Pantoprazole Sodium 40 mg 03/05/19 10:00 03/05/19 09:06 Protonix PO 40 mg QDAY MAYLIN Administration Sodium Chloride 10 ml 03/05/19 10:00 03/05/19 09:07 Sodium Chloride Flush Syringe 10 Ml IV 10 ml BID MAYLIN Administration Sodium Chloride 10 ml 03/05/19 03:59 Sodium Chloride Flush Syringe 10 Ml IV PRN PRN LINE FLUSH
--- NOTE | 2019-03-05 10:40 | XRay Report ---
CHEST 1 VIEW 03/05/2019 9:37 AM INDICATION / CLINICAL INFORMATION: opacification of lt hemithora. COMPARISON: 03/04/2019. FINDINGS: SUPPORT DEVICES: None. HEART / MEDIASTINUM: Stable. LUNGS / PLEURA: Stable complete opacification of the left hemithorax. Stable mild interstitial edema in the right lung. No pneumothorax. ADDITIONAL FINDINGS: No significant additional findings. IMPRESSION: 1. No adverse change from the prior exam. Signer Name: Godfrey Garcia MD Signed: 03/05/2019 10:35 AM Workstation Name: [facility]
[2019-03-05] MEDS: IPRATROPIUM/ALBUTEROL SULFATE 3 ML AMPUL.NEB IH SCH ×2 (14:10→20:23)
[2019-03-05] MEDS: VANCOMYCIN/NS 1 GM/250 ML 1 GM/250 ML BAG IV SCH (16:10)
[2019-03-06] MEDS: AZTREONAM/NS 1 GM/50 ML 1 GM/50 ML VIAL IV SCH ×3 (05:18→19:34)
[2019-03-06] MEDS: hydrALAZINE 25 MG TAB PO SCH ×3 (05:20→21:45)
[2019-03-06] MEDS: methylPREDNISolone Sod Succinate 125 MG/2 ML INJ IV SCH ×3 (05:20→21:46)
[2019-03-06 06:58] LABS: Hematocrit 28.3 % (30.3-42.9); Mean Corpuscular HGB Conc 32 % (30-34); Mean Corpuscular Volume 82 fl (79-97); Platelet Count 436 K/mm3 (140-440); Red Blood Count 3.45 M/mm3 (3.65-5.03)
[2019-03-06 07:00] LABS: Red Cell Distribution Width 20.6 % (13.2-15.2)
[2019-03-06 07:14] LABS: Albumin 2.9 g/dL (3.9-5); Calcium 8.3 mg/dL (8.4-10.2)
--- NOTE | 2019-03-06 08:26 | Progress Note ---
Assessment and Plan - Patient Problems (1) Hypoxia Current Visit: Yes Status: Acute (2) Acute respiratory failure with hypoxemia Current Visit: Yes Status: Resolved (3) COPD with exacerbation Current Visit: Yes Status: Acute (4) Lung mass Current Visit: Yes Status: Acute (5) Pleural effusion Current Visit: Yes Status: Acute (6) Cardiomyopathy Current Visit: Yes Status: Chronic Subjective Interval history: feels better Objective Vital Signs - 12hr 03/05/19 03/05/19 03/05/19 20:32 20:35 21:43 Temperature 98.1 F Pulse Rate 72 Respiratory 20 18 Rate Blood Pressure 186/83 O2 Sat by Pulse 100 100 Oximetry 03/05/19 03/05/19 03/05/19 22:00 22:15 23:43 Temperature Pulse Rate 79 85 79 Respiratory 18 Rate Blood Pressure 152/71 163/72 O2 Sat by Pulse 96 Oximetry 03/06/19 03/06/19 03/06/19 00:06 03:36 03:38 Temperature 97.6 F 98.3 F Pulse Rate 81 Respiratory 18 Rate Blood Pressure 153/69 O2 Sat by Pulse 100 Oximetry 03/06/19 05:20 Temperature Pulse Rate 80 Respiratory Rate Blood Pressure 153/69 O2 Sat by Pulse Oximetry Constitutional: no acute distress, alert Eyes: non-icteric ENT: oropharynx moist Neck: supple Ascultation: Bilateral: clear Cardiovascular: regular rate and rhythm Gastrointestinal: normoactive bowel sounds, soft, non-tender, non-distended Integumentary: normal Extremities: no cyanosis Neurologic: normal mental status, non-focal exam Psychiatric: mood appropriate, affect normal CBC and BMP: 03/06/19 05:57 03/06/19 05:57 ABG, PT/INR, D-dimer: ABG POC ABG pH 7.375 (7.35-7.45) 03/05/19 03:29 POC ABG pCO2 42.4 (35-45) 03/05/19 03:29 POC ABG pO2 109 (80-105) H 03/05/19 03:29 POC ABG HCO3 24.7 (22-26 mml/L) 03/05/19 03:29 POC ABG Total CO2 26 (23-27mmol/L) 03/05/19 03:29 POC ABG O2 Sat 98 03/05/19 03:29 Abnormal lab findings: Abnormal Labs 03/04/19 03/04/19 03/04/19 23:02 23:02 23:02 WBC 26.4 H RBC 3.09 L Hgb 7.7 L Hct 24.9 L MCH 25 L RDW 20.7 H Plt Count 491 H Seg Neuts % (Manual) 96.0 H Lymphocytes % (Manual) 1.0 L Seg Neutrophils # Man 25.3 H Lymphocytes # (Manual) 0.3 L Eosinophils # (Manual) 0.5 H POC ABG pO2 Sodium 135 L Carbon Dioxide BUN 37 H Glucose 338 H POC Glucose Hemoglobin A1c Calcium 8.2 L Troponin T 0.192 H* NT-Pro-B Natriuret Pep 97174 H Albumin 2.9 L LDL Cholesterol Direct 43 L HDL Cholesterol 98 H Crossmatch 03/05/19 03/05/19 03/05/19 03:29 05:47 07:10 WBC RBC Hgb Hct MCH RDW Plt Count Seg Neuts % (Manual) Lymphocytes % (Manual) Seg Neutrophils # Man Lymphocytes # (Manual) Eosinophils # (Manual) POC ABG pO2 109 H Sodium Carbon Dioxide BUN Glucose POC Glucose Hemoglobin A1c 6.6 H Calcium Troponin T NT-Pro-B Natriuret Pep Albumin LDL Cholesterol Direct HDL Cholesterol Crossmatch See Detail 03/05/19 03/05/19 03/05/19 08:44 12:35 16:29 WBC RBC Hgb Hct MCH RDW Plt Count Seg Neuts % (Manual) Lymphocytes % (Manual) Seg Neutrophils # Man Lymphocytes # (Manual) Eosinophils # (Manual) POC ABG pO2 Sodium Carbon Dioxide BUN Glucose POC Glucose 295 H 292 H 243 H Hemoglobin A1c Calcium Troponin T NT-Pro-B Natriuret Pep Albumin LDL Cholesterol Direct HDL Cholesterol Crossmatch 03/05/19 03/06/19 03/06/19 21:52 05:57 05:57 WBC 15.6 H RBC 3.45 L Hgb 9.0 L Hct 28.3 L MCH 26 L RDW 20.6 H Plt Count Seg Neuts % (Manual) Lymphocytes % (Manual) Seg Neutrophils # Man Lymphocytes # (Manual) Eosinophils # (Manual) POC ABG pO2 Sodium 134 L Carbon Dioxide 21 L BUN 38 H Glucose 342 H POC Glucose 266 H Hemoglobin A1c Calcium 8.3 L Troponin T NT-Pro-B Natriuret Pep Albumin 2.9 L LDL Cholesterol Direct HDL Cholesterol Crossmatch
[2019-03-06] MEDS: INSULIN LISPRO 100 UNIT/ML SUB-Q SCH ×5 (08:53→21:43)
[2019-03-06] MEDS: METOPROLOL TARTRATE 50 MG TAB PO SCH ×2 (08:54→16:49)
[2019-03-06] MEDS: IPRATROPIUM/ALBUTEROL SULFATE 3 ML AMPUL.NEB IH SCH ×3 (09:14→21:18)
--- NOTE | 2019-03-06 09:55 | Progress Note ---
Assessment and Plan Cardiac status is improved. Will increase hydralazine to 50 mg TID to optimize BP. Continue other cardiac management. Await heme/onc recommendations to further assess benefit of ischemic evaluation. The patient has been seen in conjunction with Dr. Munir Negron, who agrees with the assessment and plan. - Patient Problems (1) NSTEMI (non-ST elevated myocardial infarction) Current Visit: No Status: Acute (2) Acute respiratory failure with hypoxemia Current Visit: Yes Status: Resolved (3) COPD with exacerbation Current Visit: Yes Status: Acute (4) Pleural effusion Current Visit: Yes Status: Acute (5) Chronic HFrEF (heart failure with reduced ejection fraction) Current Visit: Yes Status: Chronic (6) Cardiomyopathy Current Visit: Yes Status: Chronic (7) Coronary artery disease Current Visit: Yes Status: Chronic Qualifiers: Coronary Disease-Associated Artery/Lesion type: [place] artery [place] vs. transplanted heart: [place] heart (8) PAD (peripheral artery disease) Current Visit: Yes Status: Chronic (9) Abnormal stress test Current Visit: No Status: Chronic (10) Anemia Current Visit: No Status: Chronic (11) Diabetes Current Visit: No Status: Chronic (12) Lung cancer Current Visit: No Status: Suspected Subjective Date of service: 03/06/19 Interval history: The patient is sitting up in bed in [facility]. She has no complaints. Telemetry reviewed - SR in . Objective Last Vital Signs Temp 98.2 F 03/06/19 08:25 Pulse 91 H 03/06/19 08:54 Resp 18 03/06/19 08:25 BP 146/81 03/06/19 08:54 Pulse Ox 97 03/06/19 09:17 - Physical Examination General: No Apparent Distress HEENT: Positive: PERRL Neck: Positive: neck supple Cardiac: Positive: Reg Rate and Rhythm Lungs: Positive: Decreased Breath Sounds Neuro: Positive: Grossly Intact Abdomen: Positive: Unremarkable Skin: Positive: Clear Musculoskeletal: Normal Range of Motion Extremities: Present: normal - Labs and Meds Cardiac Enzymes 03/06/19 Range/Units 05:57 AST 20 (5-40) units/L CBC 03/06/19 Range/Units 05:57 WBC 15.6 H (4.5-11.0) K/mm3 RBC 3.45 L (3.65-5.03) M/mm3 Hgb 9.0 L (10.1-14.3) gm/dl Hct 28.3 L (30.3-42.9) % Plt Count 436 (140-440) K/mm3 Comprehensive Metabolic Panel 03/06/19 Range/Units 05:57 Sodium 134 L (137-145) mmol/L Potassium 4.5 (3.6-5.0) mmol/L Chloride 100.3 (98-107) mmol/L Carbon Dioxide 21 L (22-30) mmol/L BUN 38 H (7-17) mg/dL Creatinine 1.2 (0.7-1.2) mg/dL Glucose 342 H (65-100) mg/dL Calcium 8.3 L (8.4-10.2) mg/dL AST 20 (5-40) units/L ALT 22 (7-56) units/L Alkaline Phosphatase 80 (35-129) units/L Total Protein 6.7 (6.3-8.2) g/dL Albumin 2.9 L (3.9-5) g/dL - Imaging and Cardiology Echo: report reviewed (02/23: EF of 30 to 35 percent, impaired relaxation, mild MR, mild TR and moderately reduced RV systolic function) - Telemetry EKG Rhythm: Sinus Rhythm Repolarization changes or abnormalities: nonspecific abnormality, ST segment, and/or T wave
[2019-03-06] MEDS: FOLIC ACID 1 MG TAB PO SCH (09:56)
[2019-03-06] MEDS: PANTOPRAZOLE 40 MG TAB PO SCH (09:57)
[2019-03-06] MEDS: FERROUS SULFATE 325 MG TAB PO SCH (09:57)
[2019-03-06] MEDS: ASPIRIN EC 325 MG TAB PO SCH (09:57)
[2019-03-06] MEDS: FUROSEMIDE 20 MG TAB PO SCH (09:58)
[2019-03-06] MEDS: allopurinoL 100 MG TAB PO SCH (09:58)
[2019-03-06] MEDS: HEPARIN 5,000 UNIT/1 ML VIAL SUB-Q SCH ×2 (10:00→21:46)
[2019-03-06] MEDS: INSULIN NPH/REGULAR 70/30 INJ SUB-Q SCH ×2 (10:11→16:51)
[2019-03-06] MEDS: CILOSTAZOL 100 MG TAB PO SCH ×2 (10:11→21:44)
[2019-03-06 10:14] LABS: Basophils % (Manual) 0 % (0.0-1.8); Eosinophils % (Manual) 0 % (0.0-4.3); Monocytes % (Manual) 0 % (0.0-7.3); Total Cells Counted 100
[2019-03-06 10:16] LABS: Hypochromasia 1+; Large Platelets Few; Platelet Estimate Cons; Spherocytes Few; Target Cells 1+
[2019-03-06] MEDS: ACETAMINOPHEN 325 MG TAB PO PRN (11:16)
[2019-03-06] MEDS: VANCOMYCIN/NS 1 GM/250 ML 1 GM/250 ML BAG IV SCH (12:02)
--- NOTE | 2019-03-06 14:38 | Progress Note ---
Assessment and Plan Assessment and plan: 72-year-old -[place] female with history of COPD, hypertension, insulin- dependent diabetes, CHF, coronary artery disease, lung cancer diagnosed few days ago. She was just discharged from hospital to SNF few ago on 03/03 and came back to Ed following day. She comes in for increasing shortness of breath and low oxygen saturations from [facility]. Oxygen saturation is very in the low 80s. Patient was also wheezing and in respiratory distress. She was put on BIPAP and admitted. CXR shows complete opacification left. Thoracentesis ordered to be done Friday Acute on chronic resp failure patient was discharged home on 03/03/[address] [facility] on Oxygen at 2l/min NC Returned to ED following day 03/04 Anemia Transfuse 1 Unit PRBC because of more shortness of breath, CHF Lung cancer on left from pathology Left lung cavitating lung lesion and L pleural effusion: The patient also been treated for cavitary pneumonia Pleural fluid 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 Followed by Pulmonary. S/p CT-guided lung biopsy- path shows lung cancer Left pleural effusion Thoracentesis done 02/[address] Caery that prelim path suggests squamous cell ca therfore CT biopsy lung FARAZ ordered Acute hypoxic respiratory failure Possibly secondary to underlying pneumonia and malignancy, left pleural effusion and CHF exacerbation. She has been placed on BiPAP - now weaned off s/p thoracentesis on 02/19 drained 700cc fluid, 2-D echo showed EF of 30-35% Acute on chronic systolic CHF We will continue patient on routine home medications. Will monitor daily weight monitor input and output. 2-D echo showed EF of 30-35%, we'll continue [facility] following. Stress test done 02/23 abnormal. Was scheduled for cardiac cath but canceled because of anemia NEELIMA, acute on CKD? Physical debility, PT recommended acute rehab DVT prophylaxis: Heparin Full code status Plan is to dc back to SNF in 1-2 days on Oxygen after thoracentesis if stable. To follow up with Dr. Franco in 1 wek for recently diagnosed lung cancer,last week. History Interval history: Less shortness of breath No chest pain currently Hospitalist Physical - Physical exam Narrative exam: Gen: Not in acute distress, lying in bed, HEENT: Normocephalic, atraumatic Neck: supple, no JVD Heart: S1 and S2 reg, no murmurs, rubs or gallop Lungs: Decreased breath sounds on left, Abd: soft, non tender, non distended, normal BS, Ext: No edema, no clubbing, no cyanosis Neuro: Awake, alert, oriented X 3, no focal neurological signs - Constitutional Vitals: Temp Pulse Resp BP Pulse Ox 98.2 F 85 18 163/69 97 03/06/19 08:25 03/06/19 14:26 03/06/19 14:00 03/06/19 14:26 03/06/19 09:17 General appearance: Present: no acute distress Results - Labs CBC & Chem 7: 03/07/19 05:12 03/06/19 05:57 Labs: Laboratory Last Values WBC 15.6 K/mm3 (4.5-11.0) H 03/06/19 05:57 RBC 3.45 M/mm3 (3.65-5.03) L 03/06/19 05:57 Hgb 9.0 gm/dl (10.1-14.3) L 03/06/19 05:57 Hct 28.3 % (30.3-42.9) L 03/06/19 05:57 MCV 82 fl (79-97) 03/06/19 05:57 MCH 26 pg (28-32) L 03/06/19 05:57 MCHC 32 % (30-34) 03/06/19 05:57 RDW 20.6 % (13.2-15.2) H 03/06/19 05:57 Plt Count 436 K/mm3 (140-440) 03/06/19 05:57 Add Manual Diff Complete 03/06/19 05:57 Total Counted 100 03/06/19 05:57 Seg Neutrophils % [employer] 03/06/19 05:57 Seg Neuts % (Manual) 97.0 % (40.0-70.0) H 03/06/19 05:57 Band Neutrophils % 0 % 03/06/19 05:57 Lymphocytes % (Manual) 3.0 % (13.4-35.0) L 03/06/19 05:57 Reactive Lymphs % (Man) 0 % 03/06/19 05:57 Monocytes % (Manual) 0 % (0.0-7.3) 03/06/19 05:57 Eosinophils % (Manual) 0 % (0.0-4.3) 03/06/19 05:57 Basophils % (Manual) 0 % (0.0-1.8) 03/06/19 05:57 Metamyelocytes % 0 % 03/06/19 05:57 Myelocytes % 0 % 03/06/19 05:57 Promyelocytes % 0 % 03/06/19 05:57 Blast Cells % 0 % 03/06/19 05:57 Nucleated RBC % Not Reportable 03/06/19 05:57 Seg Neutrophils # Man 15.1 K/mm3 (1.8-7.7) H 03/06/19 05:57 Band Neutrophils # 0.0 K/mm3 03/06/19 05:57 Lymphocytes # (Manual) 0.5 K/mm3 (1.2-5.4) L 03/06/19 05:57 Abs React Lymphs (Man) 0.0 K/mm3 03/06/19 05:57 Monocytes # (Manual) 0.0 K/mm3 (0.0-0.8) 03/06/19 05:57 Eosinophils # (Manual) 0.0 K/mm3 (0.0-0.4) 03/06/19 05:57 Basophils # (Manual) 0.0 K/mm3 (0.0-0.1) 03/06/19 05:57 Metamyelocytes # 0.0 K/mm3 03/06/19 05:57 Myelocytes # 0.0 K/mm3 03/06/19 05:57 Promyelocytes # 0.0 K/mm3 03/06/19 05:57 Blast Cells # 0.0 K/mm3 03/06/19 05:57 WBC Morphology Not Reportable 03/06/19 05:57 Hypersegmented Neuts Not Reportable 03/06/19 05:57 Hyposegmented Neuts Not Reportable 03/06/19 05:57 Hypogranular Neuts Not Reportable 03/06/19 05:57 Smudge Cells Not Reportable 03/06/19 05:57 Toxic Granulation Not Reportable 03/06/19 05:57 Toxic Vacuolation Not Reportable 03/06/19 05:57 Dohle Bodies Not Reportable 03/06/19 05:57 Pelger-Huet Anomaly Not Reportable 03/06/19 05:57 Jessica Rods Not Reportable 03/06/19 05:57 Platelet Estimate Cons 03/06/19 05:57 Clumped Platelets Not Reportable 03/06/19 05:57 Plt Clumps, EDTA Not Reportable 03/06/19 05:57 Large Platelets Few 03/06/19 05:57 Giant Platelets Not Reportable 03/06/19 05:57 Platelet Satelliting Not Reportable 03/06/19 05:57 Plt Morphology Comment Not Reportable 03/06/19 05:57 RBC Morphology Not Reportable 03/06/19 05:57 Dimorphic RBCs Not Reportable 03/06/19 05:57 Polychromasia Not Reportable 03/06/19 05:57 Hypochromasia 1+ 03/06/19 05:57 Poikilocytosis Not Reportable 03/06/19 05:57 Anisocytosis Not Reportable 03/06/19 05:57 Microcytosis Not Reportable 03/06/19 05:57 Macrocytosis Not Reportable 03/06/19 05:57 Spherocytes Few 03/06/19 05:57 Pappenheimer Bodies Not Reportable 03/06/19 05:57 Sickle Cells Not Reportable 03/06/19 05:57 Target Cells 1+ 03/06/19 05:57 Tear Drop Cells Not Reportable 03/06/19 05:57 Ovalocytes Not Reportable 03/06/19 05:57 Helmet Cells Not Reportable 03/06/19 05:57 [place] Bodies Not Reportable 03/06/19 05:57 [place] Rings Not Reportable 03/06/19 05:57 [place] Cells Not Reportable 03/06/19 05:57 Bite Cells Not Reportable 03/06/19 05:57 Crenated Cell Not Reportable 03/06/19 05:57 Elliptocytes Not Reportable 03/06/19 05:57 Acanthocytes (Spur) Not Reportable 03/06/19 05:57 Rouleaux Not Reportable 03/06/19 05:57 Hemoglobin C Crystals Not Reportable 03/06/19 05:57 Schistocytes Not Reportable 03/06/19 05:57 Malaria parasites Not Reportable 03/06/19 05:57 Galen Bodies Not Reportable 03/06/19 05:57 Hem Pathologist Commnt No 03/06/19 05:57 POC ABG pH 7.375 (7.35-7.45) 03/05/19 03:29 POC ABG pCO2 42.4 (35-45) 03/05/19 03:29 POC ABG pO2 109 (80-105) H 03/05/19 03:29 POC ABG HCO3 24.7 (22-26 mml/L) 03/05/19 03:29 POC ABG Total CO2 26 (23-27mmol/L) 03/05/19 03:29 POC ABG O2 Sat 98 03/05/19 03:29 POC ABG Base Excess 0 ((-2) - (+3)mmol/L) 03/05/19 03:29 FiO2 40 % 03/05/19 03:29 Sodium 134 mmol/L (137-145) L 03/06/19 05:57 Potassium 4.5 mmol/L (3.6-5.0) 03/06/19 05:57 Chloride 100.3 mmol/L (98-107) 03/06/19 05:57 Carbon Dioxide 21 mmol/L (22-30) L 03/06/19 05:57 Anion Gap 17 mmol/L 03/06/19 05:57 BUN 38 mg/dL (7-17) H 03/06/19 05:57 Creatinine 1.2 mg/dL (0.7-1.2) 03/06/19 05:57 Estimated GFR 53 ml/min 03/06/19 05:57 BUN/Creatinine Ratio 32 % 03/06/19 05:57 Glucose 342 mg/dL (65-100) H 03/06/19 05:57 POC Glucose 403 (70-105) H 03/06/19 10:28 Hemoglobin A1c 6.6 % (4-6) H 03/05/19 05:47 Lactic Acid 1.20 mmol/L (0.7-2.0) 03/05/19 05:47 Calcium 8.3 mg/dL (8.4-10.2) L 03/06/19 05:57 Total Bilirubin 0.20 mg/dL (0.1-1.2) 03/06/19 05:57 AST 20 units/L (5-40) 03/06/19 05:57 ALT 22 units/L (7-56) 03/06/19 05:57 Alkaline Phosphatase 80 units/L (35-129) 03/06/19 05:57 Troponin T 0.192 ng/mL (0.00-0.029) H* 03/04/19 23:02 NT-Pro-B Natriuret Pep 35620 pg/mL (0-900) H 03/04/19 23:02 Total Protein 6.7 g/dL (6.3-8.2) 03/06/19 05:57 Albumin 2.9 g/dL (3.9-5) L 03/06/19 05:57 Albumin/Globulin Ratio 0.8 % 03/06/19 05:57 Triglycerides 96 mg/dL (2-149) 03/04/19 23:02 Cholesterol 155 mg/dL (50-199) 03/04/19 23:02 LDL Cholesterol Direct 43 mg/dL (50-130) L 03/04/19 23:02 HDL Cholesterol 98 mg/dL (40-59) H 03/04/19 23:02 Cholesterol/HDL Ratio 1.58 % 03/04/19 23:02 Blood Type O POSITIVE 03/05/19 07:10 Antibody Screen Negative 03/05/19 07:10 Crossmatch See Detail 03/05/19 07:10 Active Medications - Current Medications Current Medications: Generic Name Dose Route Start Last Admin Trade Name Freq PRN Reason Stop Dose Admin Acetaminophen 650 mg 03/05/19 03:59 03/06/19 11:16 Tylenol PO 650 mg Q4H PRN Administration Pain MILD(1-3)/Fever >100.5/BRENNER Albuterol 2.5 mg 03/05/19 04:20 Proventil IH Q3HRT PRN Shortness Of Breath Albuterol/Ipratropium 1 ampul 03/05/19 14:00 03/06/19 14:18 Duoneb *Not For Prn Use* IH 1 ampul TIDRT MAYLIN Administration Allopurinol 100 mg 03/05/19 10:00 03/06/19 09:58 Zyloprim PO 100 mg DAILY MAYLIN Administration Aspirin 325 mg 03/05/19 10:00 03/06/19 09:57 Ecotrin PO 325 mg QDAY MAYLIN Administration Atorvastatin Calcium 40 mg 03/05/19 22:00 03/05/19 22:14 Lipitor PO 40 mg QHS MAYLIN Administration Cilostazol 50 mg 03/05/19 10:00 03/06/19 10:11 Pletal PO 50 mg BID MAYLIN Administration Ferrous Sulfate 325 mg 03/05/19 10:00 03/06/19 09:57 Feosol PO 325 mg DAILY MAYLIN Administration Folic Acid 1 mg 03/05/19 10:00 03/06/19 09:56 Folvite PO 1 mg QDAY MAYLIN Administration Furosemide 20 mg 03/05/19 10:00 03/06/19 09:58 Lasix PO 20 mg QDAY MAYLIN Administration Heparin Sodium (Porcine) 5,000 unit 03/05/19 10:00 03/06/19 10:00 Heparin SUB-Q 5,000 unit Q12HR MAYLIN Administration Hydralazine HCl 10 mg 03/05/19 12:10 Apresoline IV Q4HR PRN SBP>170 or DBP>110 Hydralazine HCl 50 mg 03/06/19 14:00 03/06/19 14:26 Apresoline PO 50 mg Q8HR MAYLIN Administration Hydromorphone HCl 0.5 mg 03/05/19 03:59 Dilaudid IV Q3H PRN Pain , Severe (7-10) Aztreonam 1 gm in 50 mls @ 50 mls/hr 03/05/19 02:00 03/06/19 09:57 Azactam/Ns 1 Gm/50 Ml IV 50 mls/hr Q8H MAYLIN Administration Protocol Vancomycin HCl 1 gm in 250 mls @ 250 mls/hr 03/05/19 12:00 03/06/19 12:02 Vancomycin/Ns 1 Gm/250 Ml IV 250 mls/hr Q24H MAYLIN Administration Insulin Human Isoph/Insulin Regular 10 unit 03/06/19 09:30 03/06/19 10:11 Humulin 70/30 SUB-Q 10 unit BIDDIAB MAYLIN Administration Insulin Human Lispro 0 unit 03/05/19 07:30 03/06/19 12:03 Humalog SUB-Q 8 unit ACHS MAYLIN Administration Protocol Isosorbide Mononitrate 120 mg 03/05/19 10:00 03/06/19 09:57 Imdur PO 120 mg QDAY MAYLIN Administration Methylprednisolone Sodium Succinate 125 mg 03/05/19 06:00 03/06/19 14:26 Solu-Medrol IV 125 mg Q8HR MAYLIN Administration Metoclopramide HCl 10 mg 03/05/19 03:59 Reglan IV Q6H PRN Nausea And Vomiting Metoprolol Tartrate 50 mg 03/05/19 08:00 03/06/19 08:54 Metoprolol PO 50 mg BID@0800,1700 MAYLIN Administration Ondansetron HCl 4 mg 03/05/19 03:59 Zofran IV Q3H PRN Nausea And Vomiting Oxycodone/Acetaminophen 1 tab 03/05/19 03:59 Percocet 5/325 PO Q6H PRN Pain, Moderate (4-6) Pantoprazole Sodium 40 mg 03/05/19 10:00 03/06/19 09:57 Protonix PO 40 mg QDAY MAYLIN Administration Sodium Chloride 10 ml 03/05/19 10:00 03/06/19 09:59 Sodium Chloride Flush Syringe 10 Ml IV 10 ml BID MAYLIN Administration Sodium Chloride 10 ml 03/05/19 03:59 Sodium Chloride Flush Syringe 10 Ml IV PRN PRN LINE FLUSH
[2019-03-07] MEDS: AZTREONAM/NS 1 GM/50 ML 1 GM/50 ML VIAL IV SCH ×3 (02:09→18:18)
[2019-03-07] MEDS: hydrALAZINE 25 MG TAB PO SCH ×3 (05:36→22:53)
[2019-03-07] MEDS: methylPREDNISolone Sod Succinate 125 MG/2 ML INJ IV SCH ×3 (05:37→22:40)
[2019-03-07 06:01] LABS: Hematocrit 25.6 % (30.3-42.9); Hemoglobin 8.2 gm/dl (10.1-14.3); Mean Corpuscular HGB Conc 32 % (30-34); Mean Corpuscular Volume 82 fl (79-97); Platelet Count 395 K/mm3 (140-440); Red Blood Count 3.12 M/mm3 (3.65-5.03)
[2019-03-07 06:03] LABS: Red Cell Distribution Width 20.7 % (13.2-15.2)
[2019-03-07] MEDS: IPRATROPIUM/ALBUTEROL SULFATE 3 ML AMPUL.NEB IH SCH ×3 (07:25→20:21)
[2019-03-07] MEDS: INSULIN NPH/REGULAR 70/30 INJ SUB-Q SCH ×2 (08:43→18:17)
[2019-03-07] MEDS: INSULIN LISPRO 100 UNIT/ML SUB-Q SCH ×4 (08:44→22:52)
[2019-03-07] MEDS: METOPROLOL TARTRATE 50 MG TAB PO SCH ×2 (08:47→18:11)
[2019-03-07] MEDS: ASPIRIN EC 325 MG TAB PO SCH (10:46)
[2019-03-07] MEDS: CILOSTAZOL 100 MG TAB PO SCH ×2 (10:46→22:39)
[2019-03-07] MEDS: FOLIC ACID 1 MG TAB PO SCH (10:46)
[2019-03-07] MEDS: FERROUS SULFATE 325 MG TAB PO SCH (10:46)
[2019-03-07] MEDS: FUROSEMIDE 20 MG TAB PO SCH (10:46)
[2019-03-07] MEDS: allopurinoL 100 MG TAB PO SCH (10:46)
[2019-03-07] MEDS: PANTOPRAZOLE 40 MG TAB PO SCH (10:47)
[2019-03-07] MEDS: HEPARIN 5,000 UNIT/1 ML VIAL SUB-Q SCH (10:48)
--- NOTE | 2019-03-07 10:58 | Progress Note ---
Assessment and Plan - Patient Problems (1) Hypoxia Current Visit: Yes Status: Acute (2) Acute respiratory failure with hypoxemia Current Visit: Yes Status: Resolved (3) COPD with exacerbation Current Visit: Yes Status: Acute (4) Lung mass Current Visit: Yes Status: Acute (5) Pleural effusion Current Visit: Yes Status: Acute (6) Cardiomyopathy Current Visit: Yes Status: Chronic Subjective Interval history: feels better on o2 Objective Vital Signs - 12hr 03/06/19 03/07/19 03/07/19 23:22 00:24 03:29 Temperature 98.4 F 98.2 F Pulse Rate 76 74 Pulse Rate [ Anterior Throughout] Respiratory 18 23 18 Rate Respiratory Rate [Anterior Throughout] Blood Pressure 166/70 156/67 O2 Sat by Pulse 96 100 100 Oximetry 03/07/19 03/07/19 03/07/19 05:36 07:35 07:37 Temperature Pulse Rate 74 Pulse Rate [ 75 Anterior Throughout] Respiratory Rate Respiratory 18 Rate [Anterior Throughout] Blood Pressure 156/67 O2 Sat by Pulse 99 Oximetry 03/07/19 03/07/19 07:55 09:05 Temperature 97.7 F Pulse Rate 84 81 Pulse Rate [ Anterior Throughout] Respiratory 18 Rate Respiratory Rate [Anterior Throughout] Blood Pressure 157/53 O2 Sat by Pulse 97 Oximetry Constitutional: no acute distress, alert Eyes: non-icteric ENT: oropharynx moist Neck: supple Ascultation: Bilateral: diminished breath sounds Cardiovascular: regular rate and rhythm Gastrointestinal: normoactive bowel sounds, soft, non-tender, non-distended Integumentary: normal Extremities: no cyanosis Neurologic: normal mental status, non-focal exam Psychiatric: mood appropriate, affect normal CBC and BMP: 03/07/19 05:12 03/06/19 05:57 ABG, PT/INR, D-dimer: ABG POC ABG pH 7.375 (7.35-7.45) 03/05/19 03:29 POC ABG pCO2 42.4 (35-45) 03/05/19 03:29 POC ABG pO2 109 (80-105) H 03/05/19 03:29 POC ABG HCO3 24.7 (22-26 mml/L) 03/05/19 03:29 POC ABG Total CO2 26 (23-27mmol/L) 03/05/19 03:29 POC ABG O2 Sat 98 03/05/19 03:29 Abnormal lab findings: Abnormal Labs 03/04/19 03/04/19 03/04/19 23:02 23:02 23:02 WBC 26.4 H RBC 3.09 L Hgb 7.7 L Hct 24.9 L MCH 25 L RDW 20.7 H Plt Count 491 H Seg Neuts % (Manual) 96.0 H Lymphocytes % (Manual) 1.0 L Seg Neutrophils # Man 25.3 H Lymphocytes # (Manual) 0.3 L Eosinophils # (Manual) 0.5 H POC ABG pO2 Sodium 135 L Carbon Dioxide BUN 37 H Glucose 338 H POC Glucose Hemoglobin A1c Calcium 8.2 L Troponin T 0.192 H* NT-Pro-B Natriuret Pep 06138 H Albumin 2.9 L LDL Cholesterol Direct 43 L HDL Cholesterol 98 H Crossmatch 03/05/19 03/05/19 03/05/19 03:29 05:47 07:10 WBC RBC Hgb Hct MCH RDW Plt Count Seg Neuts % (Manual) Lymphocytes % (Manual) Seg Neutrophils # Man Lymphocytes # (Manual) Eosinophils # (Manual) POC ABG pO2 109 H Sodium Carbon Dioxide BUN Glucose POC Glucose Hemoglobin A1c 6.6 H Calcium Troponin T NT-Pro-B Natriuret Pep Albumin LDL Cholesterol Direct HDL Cholesterol Crossmatch See Detail 03/05/19 03/05/19 03/05/19 08:44 12:35 16:29 WBC RBC Hgb Hct MCH RDW Plt Count Seg Neuts % (Manual) Lymphocytes % (Manual) Seg Neutrophils # Man Lymphocytes # (Manual) Eosinophils # (Manual) POC ABG pO2 Sodium Carbon Dioxide BUN Glucose POC Glucose 295 H 292 H 243 H Hemoglobin A1c Calcium Troponin T NT-Pro-B Natriuret Pep Albumin LDL Cholesterol Direct HDL Cholesterol Crossmatch 03/05/19 03/06/19 03/06/19 21:52 05:57 05:57 WBC 15.6 H RBC 3.45 L Hgb 9.0 L Hct 28.3 L MCH 26 L RDW 20.6 H Plt Count Seg Neuts % (Manual) 97.0 H Lymphocytes % (Manual) 3.0 L Seg Neutrophils # Man 15.1 H Lymphocytes # (Manual) 0.5 L Eosinophils # (Manual) POC ABG pO2 Sodium 134 L Carbon Dioxide 21 L BUN 38 H Glucose 342 H POC Glucose 266 H Hemoglobin A1c Calcium 8.3 L Troponin T NT-Pro-B Natriuret Pep Albumin 2.9 L LDL Cholesterol Direct HDL Cholesterol Crossmatch 03/06/19 03/06/19 03/06/19 08:37 10:28 14:59 WBC RBC Hgb Hct MCH RDW Plt Count Seg Neuts % (Manual) Lymphocytes % (Manual) Seg Neutrophils # Man Lymphocytes # (Manual) Eosinophils # (Manual) POC ABG pO2 Sodium Carbon Dioxide BUN Glucose POC Glucose 386 H 403 H 212 H Hemoglobin A1c Calcium Troponin T NT-Pro-B Natriuret Pep Albumin LDL Cholesterol Direct HDL Cholesterol Crossmatch 03/06/19 03/07/19 03/07/19 21:00 05:12 08:07 WBC 15.3 H RBC 3.12 L Hgb 8.2 L Hct 25.6 L MCH 26 L RDW 20.7 H Plt Count Seg Neuts % (Manual) Lymphocytes % (Manual) Seg Neutrophils # Man Lymphocytes # (Manual) Eosinophils # (Manual) POC ABG pO2 Sodium Carbon Dioxide BUN Glucose POC Glucose 195 H 293 H Hemoglobin A1c Calcium Troponin T NT-Pro-B Natriuret Pep Albumin LDL Cholesterol Direct HDL Cholesterol Crossmatch
--- NOTE | 2019-03-07 13:55 | Progress Note ---
Assessment and Plan no further cp although mild type 2 demand nstemi, will proceed conservatively until prognosis is elucidated by oncology/pulm. Pt is in agreement. Pt is currently asx and w/o cp. No changes at this time. - Patient Problems (1) COPD with exacerbation Current Visit: Yes Status: Acute (2) HCAP (healthcare-associated pneumonia) Current Visit: Yes Status: Acute (3) Lung mass Current Visit: Yes Status: Acute (4) Symptomatic anemia Current Visit: Yes Status: Acute (5) Chronic HFrEF (heart failure with reduced ejection fraction) Current Visit: Yes Status: Chronic (6) Coronary artery disease Current Visit: Yes Status: Chronic Qualifiers: Coronary Disease-Associated Artery/Lesion type: [place] artery [place] vs. transplanted heart: [place] heart (7) PAD (peripheral artery disease) Current Visit: Yes Status: Chronic (8) Dehydration Current Visit: No Status: Acute (9) NSTEMI (non-ST elevated myocardial infarction) Current Visit: No Status: Acute (10) Anemia Current Visit: No Status: Chronic (11) Diabetes type 2, uncontrolled Current Visit: No Status: Chronic Qualifiers: Coma presence: without coma (12) Former tobacco use Current Visit: No Status: Chronic (13) Stented coronary artery Current Visit: No Status: Chronic Subjective Date of service: 03/07/19 Interval history: feels a lot better no cp Objective Vital Signs Temp Pulse Pulse Resp Resp BP Pulse Ox 03/07/19 13:49 76 18 03/07/19 11:50 98.3 F 73 18 163/64 99 03/07/19 09:05 81 03/07/19 07:55 97.7 F 84 18 157/53 97 03/07/19 07:37 75 18 03/07/19 07:35 99 03/07/19 05:36 74 156/67 03/07/19 03:29 98.2 F 74 18 156/67 100 03/07/19 00:24 23 100 03/06/19 23:22 98.4 F 76 18 166/70 96 03/06/19 21:45 73 176/79 03/06/19 21:20 74 18 99 03/06/19 20:18 98.0 F 73 18 176/79 99 03/06/19 20:00 18 99 03/06/19 19:36 71 03/06/19 17:00 85 03/06/19 16:49 97.9 F 85 19 158/68 96 03/06/19 14:26 85 163/69 03/06/19 14:24 85 163/69 99 03/06/19 14:00 76 18 - Physical Examination General: No Apparent Distress HEENT: Positive: PERRL Neck: Positive: neck supple Neuro: Positive: Grossly Intact Abdomen: Positive: Unremarkable Skin: Positive: Clear Musculoskeletal: Normal Range of Motion Extremities: Present: normal - Labs and Meds CBC 03/07/19 Range/Units 05:12 WBC 15.3 H (4.5-11.0) K/mm3 RBC 3.12 L (3.65-5.03) M/mm3 Hgb 8.2 L (10.1-14.3) gm/dl Hct 25.6 L (30.3-42.9) % Plt Count 395 (140-440) K/mm3 - Imaging and Cardiology Echo: report reviewed (02/23: EF of 30 to 35 percent, impaired relaxation, mild MR, mild TR and moderately reduced RV systolic function) Repolarization changes or abnormalities: nonspecific abnormality, ST segment, and/or T wave
[2019-03-07] MEDS: VANCOMYCIN/NS 1 GM/250 ML 1 GM/250 ML BAG IV SCH (14:10)
--- NOTE | 2019-03-07 17:20 | Progress Note ---
Assessment and Plan Assessment and plan: 72-year-old -[place] female with history of COPD, hypertension, insulin- dependent diabetes, CHF, coronary artery disease, lung cancer diagnosed few days ago. She was just discharged from hospital to SNF few ago on 03/03 and came back to Ed following day. She comes in for increasing shortness of breath and low oxygen saturations from [facility]. Oxygen saturation is very in the low 80s. Patient was also wheezing and in respiratory distress. She was put on BIPAP and admitted. CXR shows complete opacification left. Thoracentesis ordered to be done Friday Acute on chronic resp failure patient was discharged home on 03/03/19 to [facility] on Oxygen at 2l/min NC Returned to ED following day 03/04 Anemia Transfuse 1 Unit PRBC because of more shortness of breath, CHF Lung cancer on left from pathology Left lung cavitating lung lesion and L pleural effusion: The patient also been treated for cavitary pneumonia Pleural fluid 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 Followed by Pulmonary. S/p CT-guided lung biopsy- path shows lung cancer Left pleural effusion Thoracentesis done 02/[address] Carey that prelim path suggests squamous cell ca therfore CT biopsy lung FARAZ ordered Acute hypoxic respiratory failure Possibly secondary to underlying pneumonia and malignancy, left pleural effusion and CHF exacerbation. She has been placed on BiPAP - now weaned off s/p thoracentesis on 02/19 drained 700cc fluid, 2-D echo showed EF of 30-35% Acute on chronic systolic CHF We will continue patient on routine home medications. Will monitor daily weight monitor input and output. 2-D echo showed EF of 30-35%, we'll continue [facility] following. Stress test done 02/23 abnormal. Was scheduled for cardiac cath but canceled because of anemia NEELIMA, acute on CKD? Physical debility, PT recommended acute rehab DVT prophylaxis: Heparin Full code status Plan is to dc back to SNF in 1-2 days on Oxygen after thoracentesis if stable. To follow up with Dr. Franco in 1 week for recently diagnosed lung cancer,last week. History Interval history: Less shortness of breath No chest pain currently Hospitalist Physical - Physical exam Narrative exam: Gen: Not in acute distress, lying in bed, HEENT: Normocephalic, atraumatic Neck: supple, no JVD Heart: S1 and S2 reg, no murmurs, rubs or gallop Lungs: Decreased breath sounds on left, Abd: soft, non tender, non distended, normal BS, Ext: No edema, no clubbing, no cyanosis Neuro: Awake, alert, oriented X 3, no focal neurological signs - Constitutional Vitals: Temp Pulse Resp BP Pulse Ox 98.3 F 76 18 163/64 99 03/07/19 11:50 03/07/19 13:49 03/07/19 13:49 03/07/19 11:50 03/07/19 11:50 General appearance: Present: no acute distress Results - Labs CBC & Chem 7: 03/07/19 05:12 03/06/19 05:57 Labs: Laboratory Last Values WBC 15.3 K/mm3 (4.5-11.0) H 03/07/19 05:12 RBC 3.12 M/mm3 (3.65-5.03) L 03/07/19 05:12 Hgb 8.2 gm/dl (10.1-14.3) L 03/07/19 05:12 Hct 25.6 % (30.3-42.9) L 03/07/19 05:12 MCV 82 fl (79-97) 03/07/19 05:12 MCH 26 pg (28-32) L 03/07/19 05:12 MCHC 32 % (30-34) 03/07/19 05:12 RDW 20.7 % (13.2-15.2) H 03/07/19 05:12 Plt Count 395 K/mm3 (140-440) 03/07/19 05:12 Add Manual Diff Complete 03/06/19 05:57 Total Counted 100 03/06/19 05:57 Seg Neutrophils % Ping Pong Table Assembler 03/06/19 05:57 Seg Neuts % (Manual) 97.0 % (40.0-70.0) H 03/06/19 05:57 Band Neutrophils % 0 % 03/06/19 05:57 Lymphocytes % (Manual) 3.0 % (13.4-35.0) L 03/06/19 05:57 Reactive Lymphs % (Man) 0 % 03/06/19 05:57 Monocytes % (Manual) 0 % (0.0-7.3) 03/06/19 05:57 Eosinophils % (Manual) 0 % (0.0-4.3) 03/06/19 05:57 Basophils % (Manual) 0 % (0.0-1.8) 03/06/19 05:57 Metamyelocytes % 0 % 03/06/19 05:57 Myelocytes % 0 % 03/06/19 05:57 Promyelocytes % 0 % 03/06/19 05:57 Blast Cells % 0 % 03/06/19 05:57 Nucleated RBC % Not Reportable 03/06/19 05:57 Seg Neutrophils # Man 15.1 K/mm3 (1.8-7.7) H 03/06/19 05:57 Band Neutrophils # 0.0 K/mm3 03/06/19 05:57 Lymphocytes # (Manual) 0.5 K/mm3 (1.2-5.4) L 03/06/19 05:57 Abs React Lymphs (Man) 0.0 K/mm3 03/06/19 05:57 Monocytes # (Manual) 0.0 K/mm3 (0.0-0.8) 03/06/19 05:57 Eosinophils # (Manual) 0.0 K/mm3 (0.0-0.4) 03/06/19 05:57 Basophils # (Manual) 0.0 K/mm3 (0.0-0.1) 03/06/19 05:57 Metamyelocytes # 0.0 K/mm3 03/06/19 05:57 Myelocytes # 0.0 K/mm3 03/06/19 05:57 Promyelocytes # 0.0 K/mm3 03/06/19 05:57 Blast Cells # 0.0 K/mm3 03/06/19 05:57 WBC Morphology Not Reportable 03/06/19 05:57 Hypersegmented Neuts Not Reportable 03/06/19 05:57 Hyposegmented Neuts Not Reportable 03/06/19 05:57 Hypogranular Neuts Not Reportable 03/06/19 05:57 Smudge Cells Not Reportable 03/06/19 05:57 Toxic Granulation Not Reportable 03/06/19 05:57 Toxic Vacuolation Not Reportable 03/06/19 05:57 Dohle Bodies Not Reportable 03/06/19 05:57 Pelger-Huet Anomaly Not Reportable 03/06/19 05:57 Jessica Rods Not Reportable 03/06/19 05:57 Platelet Estimate Cons 03/06/19 05:57 Clumped Platelets Not Reportable 03/06/19 05:57 Plt Clumps, EDTA Not Reportable 03/06/19 05:57 Large Platelets Few 03/06/19 05:57 Giant Platelets Not Reportable 03/06/19 05:57 Platelet Satelliting Not Reportable 03/06/19 05:57 Plt Morphology Comment Not Reportable 03/06/19 05:57 RBC Morphology Not Reportable 03/06/19 05:57 Dimorphic RBCs Not Reportable 03/06/19 05:57 Polychromasia Not Reportable 03/06/19 05:57 Hypochromasia 1+ 03/06/19 05:57 Poikilocytosis Not Reportable 03/06/19 05:57 Anisocytosis Not Reportable 03/06/19 05:57 Microcytosis Not Reportable 03/06/19 05:57 Macrocytosis Not Reportable 03/06/19 05:57 Spherocytes Few 03/06/19 05:57 Pappenheimer Bodies Not Reportable 03/06/19 05:57 Sickle Cells Not Reportable 03/06/19 05:57 Target Cells 1+ 03/06/19 05:57 Tear Drop Cells Not Reportable 03/06/19 05:57 Ovalocytes Not Reportable 03/06/19 05:57 Helmet Cells Not Reportable 03/06/19 05:57 Ling-Schuyler Bodies Not Reportable 03/06/19 05:57 Clio Rings Not Reportable 03/06/19 05:57 Lora Cells Not Reportable 03/06/19 05:57 Bite Cells Not Reportable 03/06/19 05:57 Crenated Cell Not Reportable 03/06/19 05:57 Elliptocytes Not Reportable 03/06/19 05:57 Acanthocytes (Spur) Not Reportable 03/06/19 05:57 Rouleaux Not Reportable 03/06/19 05:57 Hemoglobin C Crystals Not Reportable 03/06/19 05:57 Schistocytes Not Reportable 03/06/19 05:57 Malaria parasites Not Reportable 03/06/19 05:57 Galen Bodies Not Reportable 03/06/19 05:57 Hem Pathologist Commnt No 03/06/19 05:57 POC ABG pH 7.375 (7.35-7.45) 03/05/19 03:29 POC ABG pCO2 42.4 (35-45) 03/05/19 03:29 POC ABG pO2 109 (80-105) H 03/05/19 03:29 POC ABG HCO3 24.7 (22-26 mml/L) 03/05/19 03:29 POC ABG Total CO2 26 (23-27mmol/L) 03/05/19 03:29 POC ABG O2 Sat 98 03/05/19 03:29 POC ABG Base Excess 0 ((-2) - (+3)mmol/L) 03/05/19 03:29 FiO2 40 % 03/05/19 03:29 Sodium 134 mmol/L (137-145) L 03/06/19 05:57 Potassium 4.5 mmol/L (3.6-5.0) 03/06/19 05:57 Chloride 100.3 mmol/L (98-107) 03/06/19 05:57 Carbon Dioxide 21 mmol/L (22-30) L 03/06/19 05:57 Anion Gap 17 mmol/L 03/06/19 05:57 BUN 38 mg/dL (7-17) H 03/06/19 05:57 Creatinine 1.2 mg/dL (0.7-1.2) 03/06/19 05:57 Estimated GFR 53 ml/min 03/06/19 05:57 BUN/Creatinine Ratio 32 % 03/06/19 05:57 Glucose 342 mg/dL (65-100) H 03/06/19 05:57 POC Glucose 330 (70-105) H 03/07/19 12:02 Hemoglobin A1c 6.6 % (4-6) H 03/05/19 05:47 Lactic Acid 1.20 mmol/L (0.7-2.0) 03/05/19 05:47 Calcium 8.3 mg/dL (8.4-10.2) L 03/06/19 05:57 Total Bilirubin 0.20 mg/dL (0.1-1.2) 03/06/19 05:57 AST 20 units/L (5-40) 03/06/19 05:57 ALT 22 units/L (7-56) 03/06/19 05:57 Alkaline Phosphatase 80 units/L (35-129) 03/06/19 05:57 Troponin T 0.192 ng/mL (0.00-0.029) H* 03/04/19 23:02 NT-Pro-B Natriuret Pep 65594 pg/mL (0-900) H 03/04/19 23:02 Total Protein 6.7 g/dL (6.3-8.2) 03/06/19 05:57 Albumin 2.9 g/dL (3.9-5) L 03/06/19 05:57 Albumin/Globulin Ratio 0.8 % 03/06/19 05:57 Triglycerides 96 mg/dL (2-149) 03/04/19 23:02 Cholesterol 155 mg/dL (50-199) 03/04/19 23:02 LDL Cholesterol Direct 43 mg/dL (50-130) L 03/04/19 23:02 HDL Cholesterol 98 mg/dL (40-59) H 03/04/19 23:02 Cholesterol/HDL Ratio 1.58 % 03/04/19 23:02 Blood Type O POSITIVE 03/05/19 07:10 Antibody Screen Negative 03/05/19 07:10 Crossmatch See Detail 03/05/19 07:10 Active Medications - Current Medications Current Medications: Generic Name Dose Route Start Last Admin Trade Name Freq PRN Reason Stop Dose Admin Acetaminophen 650 mg 03/05/19 03:59 03/06/19 11:16 Tylenol PO 650 mg Q4H PRN Administration Pain MILD(1-3)/Fever >100.5/BRENNER Albuterol 2.5 mg 03/05/19 04:20 Proventil IH Q3HRT PRN Shortness Of Breath Albuterol/Ipratropium 1 ampul 03/05/19 14:00 03/07/19 13:38 Duoneb *Not For Prn Use* IH 1 ampul TIDRT MAYLIN Administration Allopurinol 100 mg 03/05/19 10:00 03/07/19 10:46 Zyloprim PO 100 mg DAILY MAYLIN Administration Aspirin 325 mg 03/05/19 10:00 03/07/19 10:46 Ecotrin PO 325 mg QDAY MAYLIN Administration Atorvastatin Calcium 40 mg 03/05/19 22:00 03/06/19 21:45 Lipitor PO 40 mg QHS MAYLIN Administration Cilostazol 50 mg 03/05/19 10:00 03/07/19 10:46 Pletal PO 50 mg BID MAYLIN Administration Ferrous Sulfate 325 mg 03/05/19 10:00 03/07/19 10:46 Feosol PO 325 mg DAILY MAYLIN Administration Folic Acid 1 mg 03/05/19 10:00 03/07/19 10:46 Folvite PO 1 mg QDAY MAYLIN Administration Furosemide 20 mg 03/05/19 10:00 03/07/19 10:46 Lasix PO 20 mg QDAY MAYLIN Administration Heparin Sodium (Porcine) 5,000 unit 03/05/19 10:00 03/07/19 10:48 Heparin SUB-Q Not Given Q12HR MAYLIN Hydralazine HCl 10 mg 03/05/19 12:10 Apresoline IV Q4HR PRN SBP>170 or DBP>110 Hydralazine HCl 50 mg 03/06/19 14:00 03/07/19 14:09 Apresoline PO 50 mg Q8HR MAYLIN Administration Hydromorphone HCl 0.5 mg 03/05/19 03:59 Dilaudid IV Q3H PRN Pain , Severe (7-10) Aztreonam 1 gm in 50 mls @ 50 mls/hr 03/05/19 02:00 03/07/19 10:40 Azactam/Ns 1 Gm/50 Ml IV 50 mls/hr Q8H MAYLIN Administration Protocol Vancomycin HCl 1 gm in 250 mls @ 250 mls/hr 03/05/19 12:00 03/07/19 14:10 Vancomycin/Ns 1 Gm/250 Ml IV 250 mls/hr Q24H MAYLIN Administration Insulin Human Isoph/Insulin Regular 10 unit 03/06/19 09:30 03/07/19 08:43 Humulin 70/30 SUB-Q 10 unit BIDDIAB MAYLIN Administration Insulin Human Lispro 0 unit 03/05/19 07:30 03/07/19 12:44 Humalog SUB-Q 8 unit ACHS MAYLIN Administration Protocol Isosorbide Mononitrate 120 mg 03/05/19 10:00 03/07/19 10:47 Imdur PO 120 mg QDAY MAYLIN Administration Methylprednisolone Sodium Succinate 125 mg 03/05/19 06:00 03/07/19 14:10 Solu-Medrol IV 125 mg Q8HR MAYLIN Administration Metoclopramide HCl 10 mg 03/05/19 03:59 Reglan IV Q6H PRN Nausea And Vomiting Metoprolol Tartrate 50 mg 03/05/19 08:00 03/07/19 08:47 Metoprolol PO 50 mg BID@0800,1700 MAYLIN Administration Ondansetron HCl 4 mg 03/05/19 03:59 Zofran IV Q3H PRN Nausea And Vomiting Oxycodone/Acetaminophen 1 tab 03/05/19 03:59 Percocet 5/325 PO Q6H PRN Pain, Moderate (4-6) Pantoprazole Sodium 40 mg 03/05/19 10:00 03/07/19 10:47 Protonix PO 40 mg QDAY MAYLIN Administration Sodium Chloride 10 ml 03/05/19 10:00 03/07/19 11:00 Sodium Chloride Flush Syringe 10 Ml IV 10 ml BID MAYLIN Administration Sodium Chloride 10 ml 03/05/19 03:59 Sodium Chloride Flush Syringe 10 Ml IV PRN PRN LINE FLUSH
[2019-03-07] MEDS: NITROGLYCERIN 0.4 MG TAB SUBL SL PRN (22:26)
[2019-03-08] MEDS: HEPARIN 5,000 UNIT/1 ML VIAL SUB-Q SCH ×3 (01:32→22:14)
[2019-03-08] MEDS: AZTREONAM/NS 1 GM/50 ML 1 GM/50 ML VIAL IV SCH ×3 (01:57→22:11)
[2019-03-08] MEDS: hydrALAZINE 20 MG/1 ML INJ IV PRN (01:58)
[2019-03-08] MEDS: hydrALAZINE 25 MG TAB PO SCH ×3 (05:37→22:12)
[2019-03-08] MEDS: methylPREDNISolone Sod Succinate 125 MG/2 ML INJ IV SCH (05:38)
[2019-03-08] MEDS: IPRATROPIUM/ALBUTEROL SULFATE 3 ML AMPUL.NEB IH SCH ×3 (07:16→22:19)
[2019-03-08] MEDS: METOPROLOL TARTRATE 50 MG TAB PO SCH ×2 (08:00→18:15)
[2019-03-08] MEDS: INSULIN LISPRO 100 UNIT/ML SUB-Q SCH ×4 (08:00→23:16)
--- NOTE | 2019-03-08 08:26 | Event Note ---
Date: 03/08/19 [id number]
--- NOTE | 2019-03-08 08:43 | Consultation ---
REFERRED BY: Dr. Greer. REASON FOR CONSULTATION: Lung cancer. HISTORY OF PRESENT ILLNESS: I saw the patient, a 73-year-old female in the medical floor. The patient has a history of newly diagnosed squamous cell lung cancer, COPD, hypertension, diabetes, CHF, coronary artery disease. The patient came to the hospital because of shortness of breath. She is on oxygen at this time, no headache, no visual disturbances. No ear discharge, no chest pain, history of shortness of breath, no vomiting, no diarrhea, no dysuria. No hematemesis. The patient had hemoptysis in the past. The patient had a large left pleural effusion and underwent thoracentesis on 02/19/2019 and undergone bronchoscopy on 02/11/2019. Pathology from 03/02/2019 shows squamous cell lung cancer. PAST MEDICAL HISTORY: As above. PAST SURGICAL HISTORY: Cardiac stent. SOCIAL HISTORY: Ex-smoker. No history of substance abuse. FAMILY HISTORY: Hypertension. PHYSICAL EXAMINATION: VITAL SIGNS: Temperature 98.3, pulse 86, respirations 22, BP 144/57. HEENT: Pallor present, no icterus. NECK: No neck lymph nodes. HEART: S1, S2. The patient is on oxygen. LUNGS: Decreased air entry. ABDOMEN: Soft. EXTREMITIES: No calf tenderness. LABORATORY DATA: White cell 15, hemoglobin 8.2, MCV 82, platelet 395. Potassium 4.5, creatinine 1.2, calcium 8.3. Ferritin 893. B12 760. Folate 5.9. ASSESSMENT: 1. Squamous cell cancer of lung. 2. Left upper lobe mass. 3. The patient is short of breath. The plan was to see her in outpatient setting to see if any oral agent can be used. 4. History of pleural effusion, history of coronary artery disease, history of cardiomyopathy, history of hypertension. 5. Anemia. 6. Thrombocytosis. 7. Low folate. 8. History of hemoptysis. 9. We will look into more radiology testing as an inpatient. The plan was to do a PET/CT as an outpatient, but as she was admitted, we will look into Radiology here. I will follow the patient during inpatient stay. JOB# [id number] NM/NTS
[2019-03-08 09:55] LABS: INR 0.97 (0.87-1.13)
[2019-03-08] MEDS: CILOSTAZOL 100 MG TAB PO SCH ×2 (10:00→22:12)
[2019-03-08] MEDS: PANTOPRAZOLE 40 MG TAB PO SCH (10:00)
[2019-03-08] MEDS: FUROSEMIDE 20 MG TAB PO SCH (10:00)
[2019-03-08] MEDS: allopurinoL 100 MG TAB PO SCH (10:00)
[2019-03-08] MEDS: ASPIRIN EC 325 MG TAB PO SCH (10:00)
[2019-03-08] MEDS: FOLIC ACID 1 MG TAB PO SCH (10:00)
[2019-03-08] MEDS: FERROUS SULFATE 325 MG TAB PO SCH (10:00)
--- NOTE | 2019-03-08 11:38 | Progress Note ---
Assessment and Plan 73 y/o female with squamous cell carcinoma of the lung, now with recurrent left sided effusion, larger this time. 1. Will order cytology on fluid 2. If positive will likely need Pleurx 3. Will ask Onc to call daughter as they round early and daughter has missed them several times. 4. Stopped steroids for now. Subjective Date of service: 03/08/19 Interval history: Going for Kadriana today. Working with PT right now. Stable. No distress. Objective Vital Signs - 12hr 03/08/19 03/08/19 03/08/19 00:11 01:15 01:58 Temperature 97.8 F Pulse Rate 80 80 Pulse Rate [ 75 Anterior Throughout] Respiratory 20 Rate Respiratory 18 Rate [Anterior Throughout] Blood Pressure 183/80 183/80 O2 Sat by Pulse 96 Oximetry 03/08/19 03/08/19 03/08/19 04:43 05:37 08:16 Temperature 98.3 F Pulse Rate 86 86 Pulse Rate [ 93 H Anterior Throughout] Respiratory 22 Rate Respiratory 18 Rate [Anterior Throughout] Blood Pressure 144/57 144/57 O2 Sat by Pulse 98 98 Oximetry Constitutional: no acute distress, alert Eyes: non-icteric ENT: oropharynx moist Neck: supple Ascultation: Bilateral: clear, diminished breath sounds Cardiovascular: regular rate and rhythm Gastrointestinal: normoactive bowel sounds, soft, non-tender, non-distended Integumentary: normal Extremities: no cyanosis Neurologic: normal mental status, non-focal exam Psychiatric: mood appropriate, affect normal CBC and BMP: 03/07/19 05:12 03/06/19 05:57 ABG, PT/INR, D-dimer: ABG POC ABG pH 7.375 (7.35-7.45) 03/05/19 03:29 POC ABG pCO2 42.4 (35-45) 03/05/19 03:29 POC ABG pO2 109 (80-105) H 03/05/19 03:29 POC ABG HCO3 24.7 (22-26 mml/L) 03/05/19 03:29 POC ABG Total CO2 26 (23-27mmol/L) 03/05/19 03:29 POC ABG O2 Sat 98 03/05/19 03:29 PT/INR, D-dimer PT 12.8 Sec. (12.2-14.9) 03/08/19 09:33 INR 0.97 (0.87-1.13) 03/08/19 09:33 Abnormal lab findings: Abnormal Labs 03/04/19 03/04/19 03/04/19 23:02 23:02 23:02 WBC 26.4 H RBC 3.09 L Hgb 7.7 L Hct 24.9 L MCH 25 L RDW 20.7 H Plt Count 491 H Seg Neuts % (Manual) 96.0 H Lymphocytes % (Manual) 1.0 L Seg Neutrophils # Man 25.3 H Lymphocytes # (Manual) 0.3 L Eosinophils # (Manual) 0.5 H POC ABG pO2 Sodium 135 L Carbon Dioxide BUN 37 H Glucose 338 H POC Glucose Hemoglobin A1c Calcium 8.2 L Troponin T 0.192 H* NT-Pro-B Natriuret Pep 62601 H Albumin 2.9 L LDL Cholesterol Direct 43 L HDL Cholesterol 98 H Crossmatch 03/05/19 03/05/19 03/05/19 03:29 05:47 07:10 WBC RBC Hgb Hct MCH RDW Plt Count Seg Neuts % (Manual) Lymphocytes % (Manual) Seg Neutrophils # Man Lymphocytes # (Manual) Eosinophils # (Manual) POC ABG pO2 109 H Sodium Carbon Dioxide BUN Glucose POC Glucose Hemoglobin A1c 6.6 H Calcium Troponin T NT-Pro-B Natriuret Pep Albumin LDL Cholesterol Direct HDL Cholesterol Crossmatch See Detail 03/05/19 03/05/19 03/05/19 08:44 12:35 16:29 WBC RBC Hgb Hct MCH RDW Plt Count Seg Neuts % (Manual) Lymphocytes % (Manual) Seg Neutrophils # Man Lymphocytes # (Manual) Eosinophils # (Manual) POC ABG pO2 Sodium Carbon Dioxide BUN Glucose POC Glucose 295 H 292 H 243 H Hemoglobin A1c Calcium Troponin T NT-Pro-B Natriuret Pep Albumin LDL Cholesterol Direct HDL Cholesterol Crossmatch 03/05/19 03/06/19 03/06/19 21:52 05:57 05:57 WBC 15.6 H RBC 3.45 L Hgb 9.0 L Hct 28.3 L MCH 26 L RDW 20.6 H Plt Count Seg Neuts % (Manual) 97.0 H Lymphocytes % (Manual) 3.0 L Seg Neutrophils # Man 15.1 H Lymphocytes # (Manual) 0.5 L Eosinophils # (Manual) POC ABG pO2 Sodium 134 L Carbon Dioxide 21 L BUN 38 H Glucose 342 H POC Glucose 266 H Hemoglobin A1c Calcium 8.3 L Troponin T NT-Pro-B Natriuret Pep Albumin 2.9 L LDL Cholesterol Direct HDL Cholesterol Crossmatch 03/06/19 03/06/19 03/06/19 08:37 10:28 14:59 WBC RBC Hgb Hct MCH RDW Plt Count Seg Neuts % (Manual) Lymphocytes % (Manual) Seg Neutrophils # Man Lymphocytes # (Manual) Eosinophils # (Manual) POC ABG pO2 Sodium Carbon Dioxide BUN Glucose POC Glucose 386 H 403 H 212 H Hemoglobin A1c Calcium Troponin T NT-Pro-B Natriuret Pep Albumin LDL Cholesterol Direct HDL Cholesterol Crossmatch 03/06/19 03/07/19 03/07/19 21:00 05:12 08:07 WBC 15.3 H RBC 3.12 L Hgb 8.2 L Hct 25.6 L MCH 26 L RDW 20.7 H Plt Count Seg Neuts % (Manual) Lymphocytes % (Manual) Seg Neutrophils # Man Lymphocytes # (Manual) Eosinophils # (Manual) POC ABG pO2 Sodium Carbon Dioxide BUN Glucose POC Glucose 195 H 293 H Hemoglobin A1c Calcium Troponin T NT-Pro-B Natriuret Pep Albumin LDL Cholesterol Direct HDL Cholesterol Crossmatch 03/07/19 03/07/19 03/07/19 12:02 17:02 21:12 WBC RBC Hgb Hct MCH RDW Plt Count Seg Neuts % (Manual) Lymphocytes % (Manual) Seg Neutrophils # Man Lymphocytes # (Manual) Eosinophils # (Manual) POC ABG pO2 Sodium Carbon Dioxide BUN Glucose POC Glucose 330 H 282 H 317 H Hemoglobin A1c Calcium Troponin T NT-Pro-B Natriuret Pep Albumin LDL Cholesterol Direct HDL Cholesterol Crossmatch 03/08/19 08:31 WBC RBC Hgb Hct MCH RDW Plt Count Seg Neuts % (Manual) Lymphocytes % (Manual) Seg Neutrophils # Man Lymphocytes # (Manual) Eosinophils # (Manual) POC ABG pO2 Sodium Carbon Dioxide BUN Glucose POC Glucose 236 H Hemoglobin A1c Calcium Troponin T NT-Pro-B Natriuret Pep Albumin LDL Cholesterol Direct HDL Cholesterol Crossmatch
[2019-03-08] MEDS: VANCOMYCIN/NS 1 GM/250 ML 1 GM/250 ML BAG IV SCH (13:16)
[2019-03-08] MEDS: INSULIN NPH/REGULAR 70/30 INJ SUB-Q SCH ×2 (13:17→18:15)
--- NOTE | 2019-03-08 13:53 | Progress Note ---
Assessment and Plan although mild type 2 demand nstemi, will proceed conservatively until prognosis is elucidated by oncology/pulm. Pt is in agreement. Pt is currently asx and w/o cp. No changes at this time. Monitor electrolytes and cont BB in setting of NSVT. The patient has been seen in conjunction with Dr. Munir Negron who agrees with the assessment and plan of care. - Patient Problems (1) Pleural effusion Current Visit: Yes Status: Acute (2) Lung cancer Current Visit: Yes Status: Suspected (3) CAD (coronary artery disease) Current Visit: Yes Status: Chronic Qualifiers: Coronary Disease-Associated Artery/Lesion type: ewiiaapaayp artery (4) Stented coronary artery Current Visit: Yes Status: Chronic (5) Cardiomyopathy Current Visit: Yes Status: Chronic (6) Abnormal stress test Current Visit: Yes Status: Chronic (7) PAD (peripheral artery disease) Current Visit: Yes Status: Chronic (8) NSTEMI (non-ST elevated myocardial infarction) Current Visit: Yes Status: Acute Plan to address problem: type II (9) Diabetes Current Visit: Yes Status: Chronic (10) Former tobacco use Current Visit: Yes Status: Chronic (11) Anemia Current Visit: Yes Status: Chronic (12) NSVT (nonsustained ventricular tachycardia) Current Visit: Yes Status: Acute Subjective Date of service: 03/08/19 Principal diagnosis: lung CA Interval history: Pt resting in bed, no current complaints. in SR on tele with 15 beat run NSVT noted yesterday evening around 5PM, pt asymptomatic. Dauther at bedside. Objective Last Vital Signs Temp 98.3 F 03/08/19 04:43 Pulse 82 03/08/19 10:00 Resp 18 03/08/19 08:16 BP 144/57 03/08/19 05:37 Pulse Ox 98 03/08/19 08:16 - Physical Examination General: No Apparent Distress HEENT: Positive: PERRL Neck: Positive: neck supple Cardiac: Positive: Reg Rate and Rhythm, S1/S2 Lungs: Positive: Decreased Breath Sounds Neuro: Positive: Grossly Intact Abdomen: Positive: Unremarkable Skin: Positive: Clear Musculoskeletal: Normal Range of Motion Extremities: Present: normal - Labs and Meds Coagulation 03/08/19 Range/Units 09:33 PT 12.8 (12.2-14.9) Sec. INR 0.97 (0.87-1.13) - Imaging and Cardiology Echo: report reviewed (02/23: EF of 30 to 35 percent, impaired relaxation, mild MR, mild TR and moderately reduced RV systolic function) Repolarization changes or abnormalities: nonspecific abnormality, ST segment, and/or T wave
--- NOTE | 2019-03-08 14:27 | Progress Note ---
Assessment and Plan Assessment and plan: Acute on chronic resp failure patient was discharged home on 03/03/19 to [facility] on Oxygen at 2l/min NC Returned to ED following day 03/04 Anemia Transfuse 1 Unit PRBC because of more shortness of breath, CHF Lung cancer on left from pathology Left lung cavitating lung lesion and L pleural effusion: The patient also been treated for cavitary pneumonia Pleural fluid 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 Followed by Pulmonary. S/p CT-guided lung biopsy- path shows lung cancer Left pleural effusion Recurrent and appears larger. Pulm following Acute hypoxic respiratory failure Possibly secondary to underlying pneumonia and malignancy, left pleural effusion and CHF exacerbation. She has been placed on BiPAP - now weaned off s/p thoracentesis on 02/19 drained 700cc fluid, 2-D echo showed EF of 30-35% Acute on chronic systolic CHF We will continue patient on routine home medications. Will monitor daily weight monitor input and output. 2-D echo showed EF of 30-35%, we'll continue [facility] following. Stress test done 02/23 abnormal. Was scheduled for cardiac cath but canceled because of anemia NEELIMA, acute on CKD? Physical debility, PT recommended acute rehab DVT prophylaxis: Heparin Full code status To follow up with Dr. Franco in 1 week for recently diagnosed lung cancer,last week. History Interval history: No new issues. Hospitalist Physical - Constitutional Vitals: Temp Pulse Resp BP Pulse Ox 98.3 F 90 18 144/57 98 03/08/19 04:43 03/08/19 13:25 03/08/19 13:25 03/08/19 05:37 03/08/19 08:16 General appearance: Present: no acute distress - EENT Eyes: Present: PERRL, EOM intact ENT: hearing intact, clear oral mucosa, dentition normal - Neck Neck: Present: supple, normal ROM - Respiratory Respiratory effort: normal Respiratory: bilateral: CTA - Cardiovascular Rhythm: regular Heart Sounds: Present: S1 & S2. Absent: gallop, rub - Extremities Extremities: no ischemia, No edema, Full ROM - Abdominal General gastrointestinal: soft, non-tender, non-distended, normal bowel sounds - Integumentary Integumentary: Present: clear, warm, dry - Neurologic Neurologic: CNII-XII intact, moves all extremities Results - Labs CBC & Chem 7: 03/07/19 05:12 03/06/19 05:57 Labs: Laboratory Last Values WBC 15.3 K/mm3 (4.5-11.0) H 03/07/19 05:12 RBC 3.12 M/mm3 (3.65-5.03) L 03/07/19 05:12 Hgb 8.2 gm/dl (10.1-14.3) L 03/07/19 05:12 Hct 25.6 % (30.3-42.9) L 03/07/19 05:12 MCV 82 fl (79-97) 03/07/19 05:12 MCH 26 pg (28-32) L 03/07/19 05:12 MCHC 32 % (30-34) 03/07/19 05:12 RDW 20.7 % (13.2-15.2) H 03/07/19 05:12 Plt Count 395 K/mm3 (140-440) 03/07/19 05:12 Add Manual Diff Complete 03/06/19 05:57 Total Counted 100 03/06/19 05:57 Seg Neutrophils % Security Guard 03/06/19 05:57 Seg Neuts % (Manual) 97.0 % (40.0-70.0) H 03/06/19 05:57 Band Neutrophils % 0 % 03/06/19 05:57 Lymphocytes % (Manual) 3.0 % (13.4-35.0) L 03/06/19 05:57 Reactive Lymphs % (Man) 0 % 03/06/19 05:57 Monocytes % (Manual) 0 % (0.0-7.3) 03/06/19 05:57 Eosinophils % (Manual) 0 % (0.0-4.3) 03/06/19 05:57 Basophils % (Manual) 0 % (0.0-1.8) 03/06/19 05:57 Metamyelocytes % 0 % 03/06/19 05:57 Myelocytes % 0 % 03/06/19 05:57 Promyelocytes % 0 % 03/06/19 05:57 Blast Cells % 0 % 03/06/19 05:57 Nucleated RBC % Not Reportable 03/06/19 05:57 Seg Neutrophils # Man 15.1 K/mm3 (1.8-7.7) H 03/06/19 05:57 Band Neutrophils # 0.0 K/mm3 03/06/19 05:57 Lymphocytes # (Manual) 0.5 K/mm3 (1.2-5.4) L 03/06/19 05:57 Abs React Lymphs (Man) 0.0 K/mm3 03/06/19 05:57 Monocytes # (Manual) 0.0 K/mm3 (0.0-0.8) 03/06/19 05:57 Eosinophils # (Manual) 0.0 K/mm3 (0.0-0.4) 03/06/19 05:57 Basophils # (Manual) 0.0 K/mm3 (0.0-0.1) 03/06/19 05:57 Metamyelocytes # 0.0 K/mm3 03/06/19 05:57 Myelocytes # 0.0 K/mm3 03/06/19 05:57 Promyelocytes # 0.0 K/mm3 03/06/19 05:57 Blast Cells # 0.0 K/mm3 03/06/19 05:57 WBC Morphology Not Reportable 03/06/19 05:57 Hypersegmented Neuts Not Reportable 03/06/19 05:57 Hyposegmented Neuts Not Reportable 03/06/19 05:57 Hypogranular Neuts Not Reportable 03/06/19 05:57 Smudge Cells Not Reportable 03/06/19 05:57 Toxic Granulation Not Reportable 03/06/19 05:57 Toxic Vacuolation Not Reportable 03/06/19 05:57 Dohle Bodies Not Reportable 03/06/19 05:57 Pelger-Huet Anomaly Not Reportable 03/06/19 05:57 Jessica Rods Not Reportable 03/06/19 05:57 Platelet Estimate Cons 03/06/19 05:57 Clumped Platelets Not Reportable 03/06/19 05:57 Plt Clumps, EDTA Not Reportable 03/06/19 05:57 Large Platelets Few 03/06/19 05:57 Giant Platelets Not Reportable 03/06/19 05:57 Platelet Satelliting Not Reportable 03/06/19 05:57 Plt Morphology Comment Not Reportable 03/06/19 05:57 RBC Morphology Not Reportable 03/06/19 05:57 Dimorphic RBCs Not Reportable 03/06/19 05:57 Polychromasia Not Reportable 03/06/19 05:57 Hypochromasia 1+ 03/06/19 05:57 Poikilocytosis Not Reportable 03/06/19 05:57 Anisocytosis Not Reportable 03/06/19 05:57 Microcytosis Not Reportable 03/06/19 05:57 Macrocytosis Not Reportable 03/06/19 05:57 Spherocytes Few 03/06/19 05:57 Pappenheimer Bodies Not Reportable 03/06/19 05:57 Sickle Cells Not Reportable 03/06/19 05:57 Target Cells 1+ 03/06/19 05:57 Tear Drop Cells Not Reportable 03/06/19 05:57 Ovalocytes Not Reportable 03/06/19 05:57 Helmet Cells Not Reportable 03/06/19 05:57 Ling-[place] Bodies Not Reportable 03/06/19 05:57 Desmet Rings Not Reportable 03/06/19 05:57 Nixon Cells Not Reportable 03/06/19 05:57 Bite Cells Not Reportable 03/06/19 05:57 Crenated Cell Not Reportable 03/06/19 05:57 Elliptocytes Not Reportable 03/06/19 05:57 Acanthocytes (Spur) Not Reportable 03/06/19 05:57 Rouleaux Not Reportable 03/06/19 05:57 Hemoglobin C Crystals Not Reportable 03/06/19 05:57 Schistocytes Not Reportable 03/06/19 05:57 Malaria parasites Not Reportable 03/06/19 05:57 Galen Bodies Not Reportable 03/06/19 05:57 Hem Pathologist Commnt No 03/06/19 05:57 PT 12.8 Sec. (12.2-14.9) 03/08/19 09:33 INR 0.97 (0.87-1.13) 03/08/19 09:33 POC ABG pH 7.375 (7.35-7.45) 03/05/19 03:29 POC ABG pCO2 42.4 (35-45) 03/05/19 03:29 POC ABG pO2 109 (80-105) H 03/05/19 03:29 POC ABG HCO3 24.7 (22-26 mml/L) 03/05/19 03:29 POC ABG Total CO2 26 (23-27mmol/L) 03/05/19 03:29 POC ABG O2 Sat 98 03/05/19 03:29 POC ABG Base Excess 0 ((-2) - (+3)mmol/L) 03/05/19 03:29 FiO2 40 % 03/05/19 03:29 Sodium 134 mmol/L (137-145) L 03/06/19 05:57 Potassium 4.5 mmol/L (3.6-5.0) 03/06/19 05:57 Chloride 100.3 mmol/L (98-107) 03/06/19 05:57 Carbon Dioxide 21 mmol/L (22-30) L 03/06/19 05:57 Anion Gap 17 mmol/L 03/06/19 05:57 BUN 38 mg/dL (7-17) H 03/06/19 05:57 Creatinine 1.2 mg/dL (0.7-1.2) 03/06/19 05:57 Estimated GFR 53 ml/min 03/06/19 05:57 BUN/Creatinine Ratio 32 % 03/06/19 05:57 Glucose 342 mg/dL (65-100) H 03/06/19 05:57 POC Glucose 301 (70-105) H 03/08/19 12:02 Hemoglobin A1c 6.6 % (4-6) H 03/05/19 05:47 Lactic Acid 1.20 mmol/L (0.7-2.0) 03/05/19 05:47 Calcium 8.3 mg/dL (8.4-10.2) L 03/06/19 05:57 Total Bilirubin 0.20 mg/dL (0.1-1.2) 03/06/19 05:57 AST 20 units/L (5-40) 03/06/19 05:57 ALT 22 units/L (7-56) 03/06/19 05:57 Alkaline Phosphatase 80 units/L (35-129) 03/06/19 05:57 Troponin T 0.192 ng/mL (0.00-0.029) H* 03/04/19 23:02 NT-Pro-B Natriuret Pep 77925 pg/mL (0-900) H 03/04/19 23:02 Total Protein 6.7 g/dL (6.3-8.2) 03/06/19 05:57 Albumin 2.9 g/dL (3.9-5) L 03/06/19 05:57 Albumin/Globulin Ratio 0.8 % 03/06/19 05:57 Triglycerides 96 mg/dL (2-149) 03/04/19 23:02 Cholesterol 155 mg/dL (50-199) 03/04/19 23:02 LDL Cholesterol Direct 43 mg/dL (50-130) L 03/04/19 23:02 HDL Cholesterol 98 mg/dL (40-59) H 03/04/19 23:02 Cholesterol/HDL Ratio 1.58 % 03/04/19 23:02 Vancomycin Trough 21.9 ug/mL (5.0-20.0) H 03/08/19 11:00 Blood Type O POSITIVE 03/05/19 07:10 Antibody Screen Negative 03/05/19 07:10 Crossmatch See Detail 03/05/19 07:10 Active Medications - Current Medications Current Medications: Generic Name Dose Route Start Last Admin Trade Name Freq PRN Reason Stop Dose Admin Acetaminophen 650 mg 03/05/19 03:59 03/06/19 11:16 Tylenol PO 650 mg Q4H PRN Administration Pain MILD(1-3)/Fever >100.5/BRENNER Albuterol 2.5 mg 03/05/19 04:20 03/08/19 01:15 Proventil IH 2.5 mg Q3HRT PRN Administration Shortness Of Breath Albuterol/Ipratropium 1 ampul 03/05/19 14:00 03/08/19 13:06 Duoneb *Not For Prn Use* IH 1 ampul TIDRT MAYLIN Administration Allopurinol 100 mg 03/05/19 10:00 03/07/19 10:46 Zyloprim PO 100 mg DAILY MAYLIN Administration Aspirin 325 mg 03/05/19 10:00 03/07/19 10:46 Ecotrin PO 325 mg QDAY MAYLIN Administration Atorvastatin Calcium 40 mg 03/05/19 22:00 03/07/19 22:39 Lipitor PO 40 mg QHS MAYLIN Administration Cilostazol 50 mg 03/05/19 10:00 03/07/19 22:39 Pletal PO 50 mg BID MAYLIN Administration Ferrous Sulfate 325 mg 03/05/19 10:00 03/07/19 10:46 Feosol PO 325 mg DAILY MAYLIN Administration Folic Acid 1 mg 03/05/19 10:00 03/07/19 10:46 Folvite PO 1 mg QDAY MAYLIN Administration Furosemide 20 mg 03/05/19 10:00 03/07/19 10:46 Lasix PO 20 mg QDAY MAYLIN Administration Heparin Sodium (Porcine) 5,000 unit 03/05/19 10:00 03/08/19 10:00 Heparin SUB-Q Not Given Q12HR [facility] Hydralazine HCl 10 mg 03/05/19 12:10 03/08/19 01:58 Apresoline IV 10 mg Q4HR PRN Administration SBP>170 or DBP>110 Hydralazine HCl 50 mg 03/06/19 14:00 03/08/19 05:37 Apresoline PO 50 mg Q8HR MAYLIN Administration Hydromorphone HCl 0.5 mg 03/05/19 03:59 Dilaudid IV Q3H PRN Pain , Severe (7-10) Aztreonam 1 gm in 50 mls @ 50 mls/hr 03/05/19 02:00 03/08/19 11:30 Azactam/Ns 1 Gm/50 Ml IV 50 mls/hr Q8H MAYLIN Administration Protocol Vancomycin HCl 1 gm in 250 mls @ 250 mls/hr 03/05/19 12:00 03/08/19 13:16 Vancomycin/Ns 1 Gm/250 Ml IV 250 mls/hr Q24H [facility] Administration Insulin Human Isoph/Insulin Regular 10 unit 03/06/19 09:30 03/08/19 13:17 Humulin 70/30 SUB-Q 10 unit BIDDIAB [facility] Administration Insulin Human Lispro 0 unit 03/05/19 07:30 03/08/19 08:00 Humalog SUB-Q Not Given ACHS [facility] Protocol Isosorbide Mononitrate 120 mg 03/05/19 10:00 03/07/19 10:47 Imdur PO 120 mg QDAY [facility] Administration Metoclopramide HCl 10 mg 03/05/19 03:59 Reglan IV Q6H PRN Nausea And Vomiting Metoprolol Tartrate 50 mg 03/05/19 08:00 03/08/19 08:00 Metoprolol PO Not Given BID@0800,1700 [facility] Nitroglycerin 0.4 mg 03/07/19 22:30 03/07/19 22:26 Nitrostat SL 0.4 mg .Q5MIN PRN Administration Chest Pain Ondansetron HCl 4 mg 03/05/19 03:59 Zofran IV Q3H PRN Nausea And Vomiting Oxycodone/Acetaminophen 1 tab 03/05/19 03:59 Percocet 5/325 PO Q6H PRN Pain, Moderate (4-6) Pantoprazole Sodium 40 mg 03/05/19 10:00 03/07/19 10:47 Protonix PO 40 mg QDAY MAYLIN Administration Sodium Chloride 10 ml 03/05/19 10:00 03/07/19 23:01 Sodium Chloride Flush Syringe 10 Ml IV 10 ml BID MAYLIN Administration Sodium Chloride 10 ml 03/05/19 03:59 Sodium Chloride Flush Syringe 10 Ml IV PRN PRN LINE FLUSH
--- NOTE | 2019-03-08 14:36 | Procedure Note ---
Date of procedure: 03/08/19 Pre-op diagnosis: left pleural effusion, lung cancer Post-op diagnosis: same Procedure: US left thoracentesis Findings: moderate left pleural fluid Anesthesia: local Surgeon: DIMA MUNOZ Estimated blood loss: none Pathology: list (60cc for cytology) Specimen disposition: to lab Condition: stable Disposition: floor
--- NOTE | 2019-03-08 15:05 | Ultrasound Report ---
ULTRASOUND-GUIDED THORACENTESIS HISTORY: Left pleural effusion, left lung cancer. COMPARISON: None PROCEDURE: The risks (including but not limited to bleeding, infection, and pneumothorax) and benefi ts were explained to the patient and informed consent was obtained. A time out procedure was perform ed. Ultrasound was used to evaluate the left pleural effusion and locate the optimal site for needle entr y. Once the skin was marked, the procedure site was prepped and draped in the usual sterile fashion and lidocaine was used for local anesthesia. A skin ramírez was made and a 6-Macanese thoracentesis avelino ter was placed. The patient was monitored closely throughout the procedure, and a total of 800 mL of blood-tinged fluid was aspirated. 60 cc were sent to the lab for cytology. The patient tolerated the procedure well with no complications. A post-procedure chest x-ray was imm ediately ordered. IMPRESSION: Successful thoracentesis as above with a total of 800 mL of blood-tinged fluid aspirated. Signer Name: Kenny Wallis Jr, MD Signed: 03/08/2019 3:01 PM Workstation Name: [id number]
--- NOTE | 2019-03-08 16:05 | XRay Report ---
CHEST 1 VIEW INDICATION: left pl effusion, lung CA, recent left thora. COMPARISON: 02/24/2019 FINDINGS: Support devices: None. Heart: Within normal limits. Lungs/Pleura: The right lung is clear. Near-complete evacuation of the left pleural effusion is demon strated. There is mild reexpansion pulmonary edema in the left lung. Lingular mass is poorly delineat ed on this exam. No pneumothorax. Additional findings: None. IMPRESSION: Near complete evacuation of the left pleural effusion. No pneumothorax. Signer Name: Kenny Wallis Jr, MD Signed: 03/08/2019 4:01 PM Workstation Name: [id number]
[2019-03-08 17:42] LABS: Calcium 8.4 mg/dL (8.4-10.2)
--- NOTE | 2019-03-08 18:17 | Cat Scan Report ---
CT abdomen pelvis w con INDICATION / CLINICAL INFORMATION: lung ca. TECHNIQUE: All CT scans at this location are performed using CT dose reduction for ALARA by means of automated e xposure control. COMPARISON: None available. FINDINGS: Limited lower thoracic images show a mass in the lingular segment of the left upper lobe and small re sidual left pleural effusion. ABDOMEN: Gallbladder is normal. No hepatic lesions. The spleen and pancreas are normal. No hydronephrosis. No urinary calculi. A small left renal cyst is identified. Adrenal glands are normal. No retrocrural, mesenteric or retroperitoneal adenopathy. No small bowel distention. No abdominal ascites. Atherosclerotic changes are seen in the aortoiliac vessels without aneurysm. Pelvis: No pelvic masses, adenopathy or abnormal fluid collection. There is diffuse subcutaneous edema. No destructive bone lesions. IMPRESSION: 1. Mass in the lingular segment of the left upper lobe. 2. No evidence of abdominal or pelvic no static disease or acute finding. 3. Diffuse subcutaneous edema. Signer Name: Agustín Olson MD Signed: 03/08/2019 6:13 PM Workstation Name: [id number]
[2019-03-09] MEDS: AZTREONAM/NS 1 GM/50 ML 1 GM/50 ML VIAL IV SCH ×2 (04:28→11:22)
[2019-03-09] MEDS: hydrALAZINE 25 MG TAB PO SCH ×3 (06:38→22:50)
--- NOTE | 2019-03-09 07:47 | Hem/Onc Progress Note ---
Assessment and Plan 1. Squamous cell cancer of lung. 2. Left upper lobe mass. 3. The patient is short of breath. The plan was to see her in outpatient setting to see if any oral agent can be used. 4. History of pleural effusion, history of coronary artery disease, history of cardiomyopathy, history of hypertension. 5. Anemia. 6. Thrombocytosis. 7. Low folate. 8. History of hemoptysis. 9. We will look into more radiology testing as an inpatient. The plan was to do a PET/CT as an outpatient. CT abdo pelvis - no mets CT head a few weeks ago - no mets pt is on o2 - guarded prognosis - as limited options - d/w daughter - for oral or iv chemo - pt needs to come to office XRT eval - Patient Problems (1) Lung cancer Current Visit: Yes Status: Suspected Subjective Date of service: 03/09/19 Principal diagnosis: lung ca Interval history: on o2 Objective - Exam Narrative Exam: Pain - none General appearance - alert Performance status complete dependence Eyes - no icterus ENT - no bleeding LNs cervical not palpable Neck - no LN Respiratory Normal - on o2 Breath sounds - CTA anteriorly CVS S1 S2 + Extremities no edema General GI Soft Rectal deferred female - deferred Skin warm Musculoskeletal - moving limbs Neurologically alert awake - Constitutional Vitals: Last Vital Signs Temp 98.4 F 03/09/19 04:34 Pulse 85 03/09/19 06:38 Resp 18 03/09/19 04:34 BP 160/61 03/09/19 06:38 Pulse Ox 99 03/09/19 04:34 - Labs Lab Results: Laboratory Results - last 24 hr 03/08/19 03/08/19 03/08/19 08:31 09:33 11:00 PT 12.8 INR 0.97 Sodium Potassium Chloride Carbon Dioxide Anion Gap BUN Creatinine Estimated GFR BUN/Creatinine Ratio Glucose POC Glucose 236 H Calcium Magnesium Vancomycin Trough 21.9 H 03/08/19 03/08/19 03/08/19 12:02 16:07 17:07 PT INR Sodium 131 L Potassium 4.7 Chloride 98.5 Carbon Dioxide 20 L Anion Gap 17 BUN 49 H Creatinine 1.3 H Estimated GFR 48 BUN/Creatinine Ratio 38 Glucose 289 H POC Glucose 301 H 296 H Calcium 8.4 Magnesium 2.00 Vancomycin Trough 03/08/19 22:45 PT INR Sodium Potassium Chloride Carbon Dioxide Anion Gap BUN Creatinine Estimated GFR BUN/Creatinine Ratio Glucose POC Glucose 192 H Calcium Magnesium Vancomycin Trough Medications & Allergies - Medications Allergies/Adverse Reactions: Allergies ibuprofen Allergy (Verified 02/18/19 23:29) Unknown Penicillins Allergy (Verified 02/18/19 23:29) Unknown Home Medications: Home Medications Medication Instructions Recorded Confirmed Last Taken Type Allopurinol 100 mg PO DAILY 12/26/18 03/05/19 03/04/19 History Cilostazol 50 mg PO BID 12/26/18 03/05/19 03/04/19 History Ferrous Sulfate 325 mg PO DAILY 12/26/18 03/05/19 03/04/19 History Ipratropium (Nf) [Atrovent HFA 2 puff IH Q6HR PRN #1 inha 01/11/19 03/05/19 Unknown Rx 17MCG/PUFF] AtorvaSTATin [Lipitor] 40 mg PO QHS 02/09/19 03/05/19 03/04/19 History Pantoprazole [Protonix TAB] 40 mg PO QDAY #30 tablet 02/16/19 03/05/19 Unknown Rx hydrALAZINE [Apresoline TAB] 25 mg PO Q8HR #90 tablet 02/16/19 03/05/19 03/04/19 Rx Furosemide [Lasix TAB] 20 mg PO QDAY tablet 03/01/19 03/05/19 03/04/19 Rx ISOSORBIDE MONOnitrate [Imdur ER] 120 mg PO QDAY tablet 03/01/19 03/05/19 03/04/19 Rx Metoprolol [Lopressor TAB] 50 mg PO BID tablet 03/01/19 03/05/19 Unknown Rx Aspirin EC 325 mg PO QDAY #30 tablet 03/03/19 03/05/19 03/04/19 Rx Folic Acid [Folvite] 1 mg PO QDAY #30 tablet 03/03/19 03/05/19 03/04/19 Rx Insulin NPH/Regular [NovoLIN 70/30] 8 unit SUB-Q ACHS 03/05/19 03/05/19 Unknown History Active Medications: Generic Name Dose Route Start Last Admin Trade Name Freq PRN Reason Stop Dose Admin Acetaminophen 650 mg 03/05/19 03:59 03/06/19 11:16 Tylenol PO 650 mg Q4H PRN Administration Pain MILD(1-3)/Fever >100.5/BRENNER Albuterol 2.5 mg 03/05/19 04:20 03/08/19 01:15 Proventil IH 2.5 mg Q3HRT PRN Administration Shortness Of Breath Albuterol/Ipratropium 1 ampul 03/05/19 14:00 03/08/19 22:19 Duoneb *Not For Prn Use* IH 1 ampul TIDRT MAYLIN Administration Allopurinol 100 mg 03/05/19 10:00 03/08/19 10:00 Zyloprim PO Not Given DAILY [facility] Aspirin 325 mg 03/05/19 10:00 03/08/19 10:00 Ecotrin PO Not Given QDAY [facility] Atorvastatin Calcium 40 mg 03/05/19 22:00 03/08/19 22:12 Lipitor PO 40 mg QHS [facility] Administration Cilostazol 50 mg 03/05/19 10:00 03/08/19 22:12 Pletal PO 50 mg BID [facility] Administration Ferrous Sulfate 325 mg 03/05/19 10:00 03/08/19 10:00 Feosol PO Not Given DAILY [facility] Folic Acid 1 mg 03/05/19 10:00 03/08/19 10:00 Folvite PO Not Given QDAY [facility] Furosemide 20 mg 03/05/19 10:00 03/08/19 10:00 Lasix PO Not Given QDAY [facility] Heparin Sodium (Porcine) 5,000 unit 03/05/19 10:00 03/08/19 22:14 Heparin SUB-Q Not Given Q12HR [facility] Hydralazine HCl 10 mg 03/05/19 12:10 03/08/19 01:58 Apresoline IV 10 mg Q4HR PRN Administration SBP>170 or DBP>110 Hydralazine HCl 50 mg 03/06/19 14:00 03/09/19 06:38 Apresoline PO 50 mg Q8HR [facility]LIN Administration Hydromorphone HCl 0.5 mg 03/05/19 03:59 Dilaudid IV Q3H PRN Pain , Severe (7-10) Aztreonam 1 gm in 50 mls @ 50 mls/hr 03/05/19 02:00 03/09/19 04:28 Azactam/Ns 1 Gm/50 Ml IV 50 mls/hr Q8H [facility]LIN Administration Protocol Vancomycin HCl 1 gm in 250 mls @ 250 mls/hr 03/05/19 12:00 03/08/19 13:16 Vancomycin/Ns 1 Gm/250 Ml IV 250 mls/hr Q24H [facility] Administration Insulin Human Isoph/Insulin Regular 10 unit 03/06/19 09:30 03/08/19 18:15 Humulin 70/30 SUB-Q 10 unit BIDDIAB [facility] Administration Insulin Human Lispro 0 unit 03/05/19 07:30 03/08/19 23:16 Humalog SUB-Q 2 unit ACHS MAYLIN Administration Protocol Isosorbide Mononitrate 120 mg 03/05/19 10:00 03/08/19 10:00 Imdur PO Not Given QDAY [facility] Metoclopramide HCl 10 mg 03/05/19 03:59 Reglan IV Q6H PRN Nausea And Vomiting Metoprolol Tartrate 50 mg 03/05/19 08:00 03/08/19 18:15 Metoprolol PO 50 mg BID@0800,1700 [facility]LIN Administration Nitroglycerin 0.4 mg 03/07/19 22:30 03/07/19 22:26 Nitrostat SL 0.4 mg .Q5MIN PRN Administration Chest Pain Ondansetron HCl 4 mg 03/05/19 03:59 Zofran IV Q3H PRN Nausea And Vomiting Oxycodone/Acetaminophen 1 tab 03/05/19 03:59 Percocet 5/325 PO Q6H PRN Pain, Moderate (4-6) Pantoprazole Sodium 40 mg 03/05/19 10:00 03/08/19 10:00 Protonix PO Not Given QDAY MAYLIN Sodium Chloride 10 ml 03/05/19 10:00 03/08/19 22:15 Sodium Chloride Flush Syringe 10 Ml IV 10 ml BID MAYLIN Administration Sodium Chloride 10 ml 03/05/19 03:59 Sodium Chloride Flush Syringe 10 Ml IV PRN PRN LINE FLUSH
--- NOTE | 2019-03-09 09:10 | Progress Note ---
Assessment and Plan 73 y/o female with squamous cell carcinoma of the lung, now with recurrent left sided effusion, larger this time. 1. If fluid is positive, most likely will return and will need pleurx catheter. Will monitor for this. 2. supplemental O2 3. Needs diuresis as tolerated as she has anasarca 4. Overall prognosis is guarded to poor. Subjective Date of service: 03/09/19 Principal diagnosis: lung ca Interval history: No acute events. Thora yesterday revealed 800cc's of blood tinged fluid. Near complete evacuation. Fluid sent for cytology. Objective Vital Signs - 12hr 03/08/19 03/08/19 03/08/19 22:12 22:24 22:25 Temperature Pulse Rate 82 Pulse Rate [ 81 Anterior Throughout] Pulse Rate [ 82 Posterior Bilateral Throughout] Respiratory Rate Respiratory 18 Rate [Anterior Throughout] Respiratory 18 Rate [Posterior Bilateral Throughout] Blood Pressure 169/79 O2 Sat by Pulse 98 Oximetry 03/09/19 03/09/19 03/09/19 00:35 03:56 04:34 Temperature 98.9 F 98.4 F Pulse Rate 78 76 79 Pulse Rate [ Anterior Throughout] Pulse Rate [ Posterior Bilateral Throughout] Respiratory 18 18 Rate Respiratory Rate [Anterior Throughout] Respiratory Rate [Posterior Bilateral Throughout] Blood Pressure 158/70 160/61 O2 Sat by Pulse 98 99 Oximetry 03/09/19 06:38 Temperature Pulse Rate 85 Pulse Rate [ Anterior Throughout] Pulse Rate [ Posterior Bilateral Throughout] Respiratory Rate Respiratory Rate [Anterior Throughout] Respiratory Rate [Posterior Bilateral Throughout] Blood Pressure 160/61 O2 Sat by Pulse Oximetry Constitutional: no acute distress, alert Eyes: non-icteric ENT: oropharynx moist Neck: supple Ascultation: Bilateral: clear, diminished breath sounds Cardiovascular: regular rate and rhythm Gastrointestinal: normoactive bowel sounds, soft, non-tender, non-distended Integumentary: normal Extremities: no cyanosis Neurologic: normal mental status, non-focal exam Psychiatric: mood appropriate, affect normal CBC and BMP: 03/07/19 05:12 03/08/19 17:07 ABG, PT/INR, D-dimer: ABG POC ABG pH 7.375 (7.35-7.45) 03/05/19 03:29 POC ABG pCO2 42.4 (35-45) 03/05/19 03:29 POC ABG pO2 109 (80-105) H 03/05/19 03:29 POC ABG HCO3 24.7 (22-26 mml/L) 03/05/19 03:29 POC ABG Total CO2 26 (23-27mmol/L) 03/05/19 03:29 POC ABG O2 Sat 98 03/05/19 03:29 PT/INR, D-dimer PT 12.8 Sec. (12.2-14.9) 03/08/19 09:33 INR 0.97 (0.87-1.13) 03/08/19 09:33 Abnormal lab findings: Abnormal Labs 03/04/19 03/04/19 03/04/19 23:02 23:02 23:02 WBC 26.4 H RBC 3.09 L Hgb 7.7 L Hct 24.9 L MCH 25 L RDW 20.7 H Plt Count 491 H Seg Neuts % (Manual) 96.0 H Lymphocytes % (Manual) 1.0 L Seg Neutrophils # Man 25.3 H Lymphocytes # (Manual) 0.3 L Eosinophils # (Manual) 0.5 H POC ABG pO2 Sodium 135 L Carbon Dioxide BUN 37 H Creatinine Glucose 338 H POC Glucose Hemoglobin A1c Calcium 8.2 L Troponin T 0.192 H* NT-Pro-B Natriuret Pep 05329 H Albumin 2.9 L LDL Cholesterol Direct 43 L HDL Cholesterol 98 H Vancomycin Trough Crossmatch 03/05/19 03/05/19 03/05/19 03:29 05:47 07:10 WBC RBC Hgb Hct MCH RDW Plt Count Seg Neuts % (Manual) Lymphocytes % (Manual) Seg Neutrophils # Man Lymphocytes # (Manual) Eosinophils # (Manual) POC ABG pO2 109 H Sodium Carbon Dioxide BUN Creatinine Glucose POC Glucose Hemoglobin A1c 6.6 H Calcium Troponin T NT-Pro-B Natriuret Pep Albumin LDL Cholesterol Direct HDL Cholesterol Vancomycin Trough Crossmatch See Detail 03/05/19 03/05/19 03/05/19 08:44 12:35 16:29 WBC RBC Hgb Hct MCH RDW Plt Count Seg Neuts % (Manual) Lymphocytes % (Manual) Seg Neutrophils # Man Lymphocytes # (Manual) Eosinophils # (Manual) POC ABG pO2 Sodium Carbon Dioxide BUN Creatinine Glucose POC Glucose 295 H 292 H 243 H Hemoglobin A1c Calcium Troponin T NT-Pro-B Natriuret Pep Albumin LDL Cholesterol Direct HDL Cholesterol Vancomycin Trough Crossmatch 03/05/19 03/06/19 03/06/19 21:52 05:57 05:57 WBC 15.6 H RBC 3.45 L Hgb 9.0 L Hct 28.3 L MCH 26 L RDW 20.6 H Plt Count Seg Neuts % (Manual) 97.0 H Lymphocytes % (Manual) 3.0 L Seg Neutrophils # Man 15.1 H Lymphocytes # (Manual) 0.5 L Eosinophils # (Manual) POC ABG pO2 Sodium 134 L Carbon Dioxide 21 L BUN 38 H Creatinine Glucose 342 H POC Glucose 266 H Hemoglobin A1c Calcium 8.3 L Troponin T NT-Pro-B Natriuret Pep Albumin 2.9 L LDL Cholesterol Direct HDL Cholesterol Vancomycin Trough Crossmatch 03/06/19 03/06/19 03/06/19 08:37 10:28 14:59 WBC RBC Hgb Hct MCH RDW Plt Count Seg Neuts % (Manual) Lymphocytes % (Manual) Seg Neutrophils # Man Lymphocytes # (Manual) Eosinophils # (Manual) POC ABG pO2 Sodium Carbon Dioxide BUN Creatinine Glucose POC Glucose 386 H 403 H 212 H Hemoglobin A1c Calcium Troponin T NT-Pro-B Natriuret Pep Albumin LDL Cholesterol Direct HDL Cholesterol Vancomycin Trough Crossmatch 03/06/19 03/07/19 03/07/19 21:00 05:12 08:07 WBC 15.3 H RBC 3.12 L Hgb 8.2 L Hct 25.6 L MCH 26 L RDW 20.7 H Plt Count Seg Neuts % (Manual) Lymphocytes % (Manual) Seg Neutrophils # Man Lymphocytes # (Manual) Eosinophils # (Manual) POC ABG pO2 Sodium Carbon Dioxide BUN Creatinine Glucose POC Glucose 195 H 293 H Hemoglobin A1c Calcium Troponin T NT-Pro-B Natriuret Pep Albumin LDL Cholesterol Direct HDL Cholesterol Vancomycin Trough Crossmatch 03/07/19 03/07/19 03/07/19 12:02 17:02 21:12 WBC RBC Hgb Hct MCH RDW Plt Count Seg Neuts % (Manual) Lymphocytes % (Manual) Seg Neutrophils # Man Lymphocytes # (Manual) Eosinophils # (Manual) POC ABG pO2 Sodium Carbon Dioxide BUN Creatinine Glucose POC Glucose 330 H 282 H 317 H Hemoglobin A1c Calcium Troponin T NT-Pro-B Natriuret Pep Albumin LDL Cholesterol Direct HDL Cholesterol Vancomycin Trough Crossmatch 03/08/19 03/08/1919 08:31 11:00 12:02 WBC RBC Hgb Hct MCH RDW Plt Count Seg Neuts % (Manual) Lymphocytes % (Manual) Seg Neutrophils # Man Lymphocytes # (Manual) Eosinophils # (Manual) POC ABG pO2 Sodium Carbon Dioxide BUN Creatinine Glucose POC Glucose 236 H 301 H Hemoglobin A1c Calcium Troponin T NT-Pro-B Natriuret Pep Albumin LDL Cholesterol Direct HDL Cholesterol Vancomycin Trough 21.9 H Crossmatch 03/08/19 03/08/19 03/08/19 16:07 17:07 22:45 WBC RBC Hgb Hct MCH RDW Plt Count Seg Neuts % (Manual) Lymphocytes % (Manual) Seg Neutrophils # Man Lymphocytes # (Manual) Eosinophils # (Manual) POC ABG pO2 Sodium 131 L Carbon Dioxide 20 L BUN 49 H Creatinine 1.3 H Glucose 289 H POC Glucose 296 H 192 H Hemoglobin A1c Calcium Troponin T NT-Pro-B Natriuret Pep Albumin LDL Cholesterol Direct HDL Cholesterol Vancomycin Trough Crossmatch 03/09/19 08:31 WBC RBC Hgb Hct MCH RDW Plt Count Seg Neuts % (Manual) Lymphocytes % (Manual) Seg Neutrophils # Man Lymphocytes # (Manual) Eosinophils # (Manual) POC ABG pO2 Sodium Carbon Dioxide BUN Creatinine Glucose POC Glucose 60 L Hemoglobin A1c Calcium Troponin T NT-Pro-B Natriuret Pep Albumin LDL Cholesterol Direct HDL Cholesterol Vancomycin Trough Crossmatch
[2019-03-09] MEDS: INSULIN NPH/REGULAR 70/30 INJ SUB-Q SCH ×2 (10:52→17:29)
[2019-03-09] MEDS: HEPARIN 5,000 UNIT/1 ML VIAL SUB-Q SCH ×2 (10:53→22:50)
[2019-03-09] MEDS: ASPIRIN EC 325 MG TAB PO SCH (10:54)
[2019-03-09] MEDS: CILOSTAZOL 100 MG TAB PO SCH ×2 (10:54→22:50)
[2019-03-09] MEDS: FERROUS SULFATE 325 MG TAB PO SCH (10:54)
[2019-03-09] MEDS: FUROSEMIDE 20 MG TAB PO SCH (10:54)
[2019-03-09] MEDS: allopurinoL 100 MG TAB PO SCH (10:54)
[2019-03-09] MEDS: FOLIC ACID 1 MG TAB PO SCH (10:55)
[2019-03-09] MEDS: PANTOPRAZOLE 40 MG TAB PO SCH (10:55)
[2019-03-09] MEDS: INSULIN LISPRO 100 UNIT/ML SUB-Q SCH ×4 (10:57→22:16)
[2019-03-09] MEDS: METOPROLOL TARTRATE 50 MG TAB PO SCH ×2 (11:03→16:19)
--- NOTE | 2019-03-09 12:52 | Progress Note ---
Assessment and Plan s/p thoracentesis yesterday with 800mL removed. per pulmonary, pt would benefit from additional diuresis. Initiate IV lasix and monitor renal indices. although mild type 2 demand nstemi, will proceed conservatively until prognosis is elucidated by oncology/pulm. Pt is in agreement. Pt is currently asx and w/o cp. No changes at this time. Monitor electrolytes and cont BB in setting of NSVT. The patient has been seen in conjunction with Dr. Munir Negron who agrees with the assessment and plan of care. - Patient Problems (1) Pleural effusion Current Visit: Yes Status: Acute (2) Lung cancer Current Visit: Yes Status: Suspected (3) CAD (coronary artery disease) Current Visit: Yes Status: Chronic Qualifiers: Coronary Disease-Associated Artery/Lesion type: red cliff artery (4) Stented coronary artery Current Visit: Yes Status: Chronic (5) Cardiomyopathy Current Visit: Yes Status: Chronic (6) Abnormal stress test Current Visit: Yes Status: Chronic (7) PAD (peripheral artery disease) Current Visit: Yes Status: Chronic (8) NSTEMI (non-ST elevated myocardial infarction) Current Visit: Yes Status: Acute (9) Diabetes Current Visit: Yes Status: Chronic (10) Former tobacco use Current Visit: Yes Status: Chronic (11) Anemia Current Visit: Yes Status: Chronic (12) NSVT (nonsustained ventricular tachycardia) Current Visit: Yes Status: Acute Subjective Date of service: 03/09/19 Principal diagnosis: lung ca Interval history: Pt resting in bed, no current complaints. in SR on tele, no acute events noted on telemetry overnight. Daughter at bedside. Objective Last Vital Signs Temp 98.9 F 03/09/19 08:38 Pulse 83 03/09/19 11:03 Resp 18 03/09/19 08:38 BP 158/70 03/09/19 11:03 Pulse Ox 97 03/09/19 08:38 - Physical Examination General: No Apparent Distress HEENT: Positive: PERRL Neck: Positive: neck supple Cardiac: Positive: Reg Rate and Rhythm, S1/S2 Lungs: Positive: Decreased Breath Sounds Neuro: Positive: Grossly Intact Abdomen: Positive: Unremarkable Skin: Positive: Clear Musculoskeletal: Normal Range of Motion Extremities: Present: normal - Labs and Meds Comprehensive Metabolic Panel 03/08/19 Range/Units 17:07 Sodium 131 L (137-145) mmol/L Potassium 4.7 (3.6-5.0) mmol/L Chloride 98.5 (98-107) mmol/L Carbon Dioxide 20 L (22-30) mmol/L BUN 49 H (7-17) mg/dL Creatinine 1.3 H (0.7-1.2) mg/dL Glucose 289 H (65-100) mg/dL Calcium 8.4 (8.4-10.2) mg/dL - Imaging and Cardiology Echo: report reviewed (02/23: EF of 30 to 35 percent, impaired relaxation, mild MR, mild TR and moderately reduced RV systolic function) Repolarization changes or abnormalities: nonspecific abnormality, ST segment, and/or T wave
[2019-03-09] MEDS: IPRATROPIUM/ALBUTEROL SULFATE 3 ML AMPUL.NEB IH SCH ×3 (13:18→21:22)
[2019-03-09] MEDS: oxyCODONE /ACETAMINOPHEN 5-325MG TAB PO PRN (15:23)
--- NOTE | 2019-03-09 15:24 | Progress Note ---
Assessment and Plan Assessment and plan: Acute on chronic resp failure patient was discharged home on 03/03/19 to [facility] on Oxygen at 2l/min NC Returned to ED following day 03/04 Anemia Transfuse 1 Unit PRBC because of more shortness of breath, CHF Lung cancer on left from pathology Left lung cavitating lung lesion and L pleural effusion: The patient also been treated for cavitary pneumonia Pleural fluid 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 Followed by Pulmonary. S/p CT-guided lung biopsy- path shows lung cancer Left pleural effusion Recurrent and appears larger. Pulm following Acute hypoxic respiratory failure Possibly secondary to underlying pneumonia and malignancy, left pleural effusion and CHF exacerbation. She has been placed on BiPAP - now weaned off s/p thoracentesis on 02/19 drained 700cc fluid, 2-D echo showed EF of 30-35% Acute on chronic systolic CHF We will continue patient on routine home medications. Will monitor daily weight monitor input and output. 2-D echo showed EF of 30-35%, we'll continue Lasix Cardiology following. Stress test done 02/23 abnormal. Was scheduled for cardiac cath but canceled because of anemia NEELIMA, acute on CKD? Physical debility, PT recommended acute rehab DVT prophylaxis: Heparin Full code status To follow up with Dr. Franco in 1 week for recently diagnosed lung cancer,last week. History Interval history: No new issues. Hospitalist Physical - Constitutional Vitals: Temp Pulse Resp BP Pulse Ox 98.8 F 97 H 93 H 155/60 100 03/09/19 12:39 03/09/19 14:35 03/09/19 13:19 03/09/19 14:35 03/09/19 12:39 General appearance: Present: no acute distress - EENT Eyes: Present: PERRL, EOM intact ENT: hearing intact, clear oral mucosa, dentition normal - Neck Neck: Present: supple, normal ROM - Respiratory Respiratory effort: normal Respiratory: bilateral: CTA - Cardiovascular Rhythm: regular Heart Sounds: Present: S1 & S2. Absent: gallop, rub - Extremities Extremities: no ischemia, No edema, Full ROM - Abdominal General gastrointestinal: soft, non-tender, non-distended, normal bowel sounds - Integumentary Integumentary: Present: clear, warm, dry - Neurologic Neurologic: CNII-XII intact, moves all extremities Results - Labs CBC & Chem 7: 03/07/19 05:12 03/08/19 17:07 Labs: Laboratory Last Values WBC 15.3 K/mm3 (4.5-11.0) H 03/07/19 05:12 RBC 3.12 M/mm3 (3.65-5.03) L 03/07/19 05:12 Hgb 8.2 gm/dl (10.1-14.3) L 03/07/19 05:12 Hct 25.6 % (30.3-42.9) L 03/07/19 05:12 MCV 82 fl (79-97) 03/07/19 05:12 MCH 26 pg (28-32) L 03/07/19 05:12 MCHC 32 % (30-34) 03/07/19 05:12 RDW 20.7 % (13.2-15.2) H 03/07/19 05:12 Plt Count 395 K/mm3 (140-440) 03/07/19 05:12 Add Manual Diff Complete 03/06/19 05:57 Total Counted 100 03/06/19 05:57 Seg Neutrophils % Layup Worker 03/06/19 05:57 Seg Neuts % (Manual) 97.0 % (40.0-70.0) H 03/06/19 05:57 Band Neutrophils % 0 % 03/06/19 05:57 Lymphocytes % (Manual) 3.0 % (13.4-35.0) L 03/06/19 05:57 Reactive Lymphs % (Man) 0 % 03/06/19 05:57 Monocytes % (Manual) 0 % (0.0-7.3) 03/06/19 05:57 Eosinophils % (Manual) 0 % (0.0-4.3) 03/06/19 05:57 Basophils % (Manual) 0 % (0.0-1.8) 03/06/19 05:57 Metamyelocytes % 0 % 03/06/19 05:57 Myelocytes % 0 % 03/06/19 05:57 Promyelocytes % 0 % 03/06/19 05:57 Blast Cells % 0 % 03/06/19 05:57 Nucleated RBC % Not Reportable 03/06/19 05:57 Seg Neutrophils # Man 15.1 K/mm3 (1.8-7.7) H 03/06/19 05:57 Band Neutrophils # 0.0 K/mm3 03/06/19 05:57 Lymphocytes # (Manual) 0.5 K/mm3 (1.2-5.4) L 03/06/19 05:57 Abs React Lymphs (Man) 0.0 K/mm3 03/06/19 05:57 Monocytes # (Manual) 0.0 K/mm3 (0.0-0.8) 03/06/19 05:57 Eosinophils # (Manual) 0.0 K/mm3 (0.0-0.4) 03/06/19 05:57 Basophils # (Manual) 0.0 K/mm3 (0.0-0.1) 03/06/19 05:57 Metamyelocytes # 0.0 K/mm3 03/06/19 05:57 Myelocytes # 0.0 K/mm3 03/06/19 05:57 Promyelocytes # 0.0 K/mm3 03/06/19 05:57 Blast Cells # 0.0 K/mm3 03/06/19 05:57 WBC Morphology Not Reportable 03/06/19 05:57 Hypersegmented Neuts Not Reportable 03/06/19 05:57 Hyposegmented Neuts Not Reportable 03/06/19 05:57 Hypogranular Neuts Not Reportable 03/06/19 05:57 Smudge Cells Not Reportable 03/06/19 05:57 Toxic Granulation Not Reportable 03/06/19 05:57 Toxic Vacuolation Not Reportable 03/06/19 05:57 Dohle Bodies Not Reportable 03/06/19 05:57 Pelger-Huet Anomaly Not Reportable 03/06/19 05:57 Jessica Rods Not Reportable 03/06/19 05:57 Platelet Estimate Cons 03/06/19 05:57 Clumped Platelets Not Reportable 03/06/19 05:57 Plt Clumps, EDTA Not Reportable 03/06/19 05:57 Large Platelets Few 03/06/19 05:57 Giant Platelets Not Reportable 03/06/19 05:57 Platelet Satelliting Not Reportable 03/06/19 05:57 Plt Morphology Comment Not Reportable 03/06/19 05:57 RBC Morphology Not Reportable 03/06/19 05:57 Dimorphic RBCs Not Reportable 03/06/19 05:57 Polychromasia Not Reportable 03/06/19 05:57 Hypochromasia 1+ 03/06/19 05:57 Poikilocytosis Not Reportable 03/06/19 05:57 Anisocytosis Not Reportable 03/06/19 05:57 Microcytosis Not Reportable 03/06/19 05:57 Macrocytosis Not Reportable 03/06/19 05:57 Spherocytes Few 03/06/19 05:57 Pappenheimer Bodies Not Reportable 03/06/19 05:57 Sickle Cells Not Reportable 03/06/19 05:57 Target Cells 1+ 03/06/19 05:57 Tear Drop Cells Not Reportable 03/06/19 05:57 Ovalocytes Not Reportable 03/06/19 05:57 Helmet Cells Not Reportable 03/06/19 05:57 [place] Bodies Not Reportable 03/06/19 05:57 [place] Rings Not Reportable 03/06/19 05:57 [place] Cells Not Reportable 03/06/19 05:57 Bite Cells Not Reportable 03/06/19 05:57 Crenated Cell Not Reportable 03/06/19 05:57 Elliptocytes Not Reportable 03/06/19 05:57 Acanthocytes (Spur) Not Reportable 03/06/19 05:57 Rouleaux Not Reportable 03/06/19 05:57 Hemoglobin C Crystals Not Reportable 03/06/19 05:57 Schistocytes Not Reportable 03/06/19 05:57 Malaria parasites Not Reportable 03/06/19 05:57 [place] Bodies Not Reportable 03/06/19 05:57 Hem Pathologist Commnt No 03/06/19 05:57 PT 12.8 Sec. (12.2-14.9) 03/08/19 09:33 INR 0.97 (0.87-1.13) 03/08/19 09:33 POC ABG pH 7.375 (7.35-7.45) 03/05/19 03:29 POC ABG pCO2 42.4 (35-45) 03/05/19 03:29 POC ABG pO2 109 (80-105) H 03/05/19 03:29 POC ABG HCO3 24.7 (22-26 mml/L) 03/05/19 03:29 POC ABG Total CO2 26 (23-27mmol/L) 03/05/19 03:29 POC ABG O2 Sat 98 03/05/19 03:29 POC ABG Base Excess 0 ((-2) - (+3)mmol/L) 03/05/19 03:29 FiO2 40 % 03/05/19 03:29 Sodium 131 mmol/L (137-145) L 03/08/19 17:07 Potassium 4.7 mmol/L (3.6-5.0) 03/08/19 17:07 Chloride 98.5 mmol/L (98-107) 03/08/19 17:07 Carbon Dioxide 20 mmol/L (22-30) L 03/08/19 17:07 Anion Gap 17 mmol/L 03/08/19 17:07 BUN 49 mg/dL (7-17) H 03/08/19 17:07 Creatinine 1.3 mg/dL (0.7-1.2) H 03/08/19 17:07 Estimated GFR 48 ml/min 03/08/19 17:07 BUN/Creatinine Ratio 38 % 03/08/19 17:07 Glucose 289 mg/dL (65-100) H 03/08/19 17:07 POC Glucose 219 (70-105) H 03/09/19 12:11 Hemoglobin A1c 6.6 % (4-6) H 03/05/19 05:47 Lactic Acid 1.20 mmol/L (0.7-2.0) 03/05/19 05:47 Calcium 8.4 mg/dL (8.4-10.2) 03/08/19 17:07 Magnesium 2.00 mg/dL (1.7-2.3) 03/08/19 17:07 Total Bilirubin 0.20 mg/dL (0.1-1.2) 03/06/19 05:57 AST 20 units/L (5-40) 03/06/19 05:57 ALT 22 units/L (7-56) 03/06/19 05:57 Alkaline Phosphatase 80 units/L (35-129) 03/06/19 05:57 Troponin T 0.192 ng/mL (0.00-0.029) H* 03/04/19 23:02 NT-Pro-B Natriuret Pep 03472 pg/mL (0-900) H 03/04/19 23:02 Total Protein 6.7 g/dL (6.3-8.2) 03/06/19 05:57 Albumin 2.9 g/dL (3.9-5) L 03/06/19 05:57 Albumin/Globulin Ratio 0.8 % 03/06/19 05:57 Triglycerides 96 mg/dL (2-149) 03/04/19 23:02 Cholesterol 155 mg/dL (50-199) 03/04/19 23:02 LDL Cholesterol Direct 43 mg/dL (50-130) L 03/04/19 23:02 HDL Cholesterol 98 mg/dL (40-59) H 03/04/19 23:02 Cholesterol/HDL Ratio 1.58 % 03/04/19 23:02 Vancomycin Trough 21.9 ug/mL (5.0-20.0) H 03/08/19 11:00 Blood Type O POSITIVE 03/05/19 07:10 Antibody Screen Negative 03/05/19 07:10 Crossmatch See Detail 03/05/19 07:10 Active Medications - Current Medications Current Medications: Generic Name Dose Route Start Last Admin Trade Name Freq PRN Reason Stop Dose Admin Acetaminophen 650 mg 03/05/19 03:59 03/06/19 11:16 Tylenol PO 650 mg Q4H PRN Administration Pain MILD(1-3)/Fever >100.5/BRENNER Albuterol 2.5 mg 03/05/19 04:20 03/08/19 01:15 Proventil IH 2.5 mg Q3HRT PRN Administration Shortness Of Breath Albuterol/Ipratropium 1 ampul 03/05/19 14:00 03/09/19 13:18 Duoneb *Not For Prn Use* IH 1 ampul TIDRT MAYLIN Administration Allopurinol 100 mg 03/05/19 10:00 03/09/19 10:54 Zyloprim PO 100 mg DAILY MAYLIN Administration Aspirin 325 mg 03/05/19 10:00 03/09/19 10:54 Ecotrin PO 325 mg QDAY MAYLIN Administration Atorvastatin Calcium 40 mg 03/05/19 22:00 03/08/19 22:12 Lipitor PO 40 mg QHS MAYLIN Administration Cilostazol 50 mg 03/05/19 10:00 03/09/19 10:54 Pletal PO 50 mg BID MAYLIN Administration Ferrous Sulfate 325 mg 03/05/19 10:00 03/09/19 10:54 Feosol PO 325 mg DAILY MAYLIN Administration Folic Acid 1 mg 03/05/19 10:00 03/09/19 10:55 Folvite PO 1 mg QDAY MAYLIN Administration Furosemide 40 mg 03/09/19 18:00 Lasix IV QDAY MAYLIN Heparin Sodium (Porcine) 5,000 unit 03/05/19 10:00 03/09/19 10:53 Heparin SUB-Q 5,000 unit Q12HR MAYLIN Administration Hydralazine HCl 10 mg 03/05/19 12:10 03/08/19 01:58 Apresoline IV 10 mg Q4HR PRN Administration SBP>170 or DBP>110 Hydralazine HCl 50 mg 03/06/19 14:00 03/09/19 14:35 Apresoline PO 50 mg Q8HR MAYLIN Administration Hydromorphone HCl 0.5 mg 03/05/19 03:59 Dilaudid IV Q3H PRN Pain , Severe (7-10) Insulin Human Isoph/Insulin Regular 10 unit 03/06/19 09:30 03/09/19 10:52 Humulin 70/30 SUB-Q 10 unit BIDDIAB MAYLIN Administration Insulin Human Lispro 0 unit 03/05/19 07:30 03/09/19 12:19 Humalog SUB-Q 3 unit ACHS MAYLIN Administration Protocol Isosorbide Mononitrate 120 mg 03/05/19 10:00 03/09/19 10:54 Imdur PO 120 mg QDAY MAYLIN Administration Metoclopramide HCl 10 mg 03/05/19 03:59 Reglan IV Q6H PRN Nausea And Vomiting Metoprolol Tartrate 50 mg 03/05/19 08:00 03/09/19 11:03 Metoprolol PO 50 mg BID@0800,1700 MAYLIN Administration Nitroglycerin 0.4 mg 03/07/19 22:30 03/07/19 22:26 Nitrostat SL 0.4 mg .Q5MIN PRN Administration Chest Pain Ondansetron HCl 4 mg 03/05/19 03:59 Zofran IV Q3H PRN Nausea And Vomiting Oxycodone/Acetaminophen 1 tab 03/05/19 03:59 03/09/19 15:23 Percocet 5/325 PO 1 tab Q6H PRN Administration Pain, Moderate (4-6) Pantoprazole Sodium 40 mg 03/05/19 10:00 03/09/19 10:55 Protonix PO 40 mg QDAY MAYLIN Administration Sodium Chloride 10 ml 03/05/19 10:00 03/09/19 10:56 Sodium Chloride Flush Syringe 10 Ml IV 10 ml BID MAYLIN Administration Sodium Chloride 10 ml 03/05/19 03:59 Sodium Chloride Flush Syringe 10 Ml IV PRN PRN LINE FLUSH
[2019-03-09] MEDS: FUROSEMIDE 40 MG/4 ML INJ IV SCH (17:28)
[2019-03-09] MEDS: ACETAMINOPHEN 325 MG TAB PO PRN (23:05)
[2019-03-10 05:41] LABS: Calcium 8.1 mg/dL (8.4-10.2)
[2019-03-10] MEDS: hydrALAZINE 25 MG TAB PO SCH ×3 (06:22→23:25)
--- NOTE | 2019-03-10 07:53 | Hem/Onc Progress Note ---
Assessment and Plan 1. Squamous cell cancer of lung. 2. Left upper lobe mass. 3. The patient is short of breath. The plan was to see her in outpatient setting to see if any oral agent can be used. 4. History of pleural effusion, history of coronary artery disease, history of cardiomyopathy, history of hypertension. 5. Anemia. 6. Thrombocytosis. 7. Low folate. 8. History of hemoptysis. 9. We will look into more radiology testing as an inpatient. The plan was to do a PET/CT as an outpatient. CT abdo pelvis - no mets CT head a few weeks ago - no mets pt is on o2 - guarded prognosis - as limited options - d/w daughter - for oral or iv chemo - pt needs to come to office XRT eval - d/w dr Torres - Patient Problems (1) Lung cancer Current Visit: Yes Status: Suspected Subjective Date of service: 03/10/19 Principal diagnosis: lung ca Interval history: XRT consulted - still on o2 Objective - Exam Narrative Exam: Pain - none General appearance - alert Performance status complete dependence Eyes - no icterus ENT - no bleeding LNs cervical not palpable Neck - no LN Respiratory Normal - on o2 Breath sounds - CTA anteriorly CVS S1 S2 + Extremities no edema General GI Soft Rectal deferred female - deferred Skin warm Musculoskeletal - moving limbs Neurologically alert awake - Constitutional Vitals: Last Vital Signs Temp 98.8 F 03/10/19 07:38 Pulse 88 03/10/19 07:38 Resp 18 03/10/19 07:38 BP 135/62 03/10/19 07:38 Pulse Ox 100 03/10/19 07:38 - Labs Lab Results: Laboratory Results - last 24 hr 03/09/19 03/09/19 03/09/19 08:31 11:01 12:11 Sodium Potassium Chloride Carbon Dioxide Anion Gap BUN Creatinine Estimated GFR BUN/Creatinine Ratio Glucose POC Glucose 60 L 183 H 219 H Calcium 03/09/19 03/09/19 03/10/19 16:15 21:08 04:53 Sodium 133 L Potassium 4.2 Chloride 98.8 Carbon Dioxide 19 L Anion Gap 19 BUN 57 H Creatinine 1.4 H Estimated GFR 44 BUN/Creatinine Ratio 41 Glucose 77 POC Glucose 202 H 115 H Calcium 8.1 L Medications & Allergies - Medications Allergies/Adverse Reactions: Allergies ibuprofen Allergy (Verified 02/18/19 23:29) Unknown Penicillins Allergy (Verified 02/18/19 23:29) Unknown Home Medications: Home Medications Medication Instructions Recorded Confirmed Last Taken Type Allopurinol 100 mg PO DAILY 12/26/18 03/05/19 03/04/19 History Cilostazol 50 mg PO BID 12/26/18 03/05/19 03/04/19 History Ferrous Sulfate 325 mg PO DAILY 12/26/18 03/05/19 03/04/19 History Ipratropium (Nf) [Atrovent HFA 2 puff IH Q6HR PRN #1 inha 01/11/19 03/05/19 Unknown Rx 17MCG/PUFF] AtorvaSTATin [Lipitor] 40 mg PO QHS 02/09/19 03/05/19 03/04/19 History Pantoprazole [Protonix TAB] 40 mg PO QDAY #30 tablet 02/16/19 03/05/19 Unknown Rx hydrALAZINE [Apresoline TAB] 25 mg PO Q8HR #90 tablet 02/16/19 03/05/19 03/04/19 Rx Furosemide [Lasix TAB] 20 mg PO QDAY tablet 03/01/19 03/05/19 03/04/19 Rx ISOSORBIDE MONOnitrate [Imdur ER] 120 mg PO QDAY tablet 03/01/19 03/05/19 03/04/19 Rx Metoprolol [Lopressor TAB] 50 mg PO BID tablet 03/01/19 03/05/19 Unknown Rx Aspirin EC 325 mg PO QDAY #30 tablet 03/03/19 03/05/19 03/04/19 Rx Folic Acid [Folvite] 1 mg PO QDAY #30 tablet 03/03/19 03/05/19 03/04/19 Rx Insulin NPH/Regular [NovoLIN 70/30] 8 unit SUB-Q ACHS 03/05/19 03/05/19 Unknown History Active Medications: Generic Name Dose Route Start Last Admin Trade Name Freq PRN Reason Stop Dose Admin Acetaminophen 650 mg 03/05/19 03:59 03/09/19 23:05 Tylenol PO 650 mg Q4H PRN Administration Pain MILD(1-3)/Fever >100.5/BRENNER Albuterol 2.5 mg 03/05/19 04:20 03/08/19 01:15 Proventil IH 2.5 mg Q3HRT PRN Administration Shortness Of Breath Albuterol/Ipratropium 1 ampul 03/05/19 14:00 03/09/19 21:22 Duoneb *Not For Prn Use* IH 1 ampul TIDRT MAYLIN Administration Allopurinol 100 mg 03/05/19 10:00 03/09/19 10:54 Zyloprim PO 100 mg DAILY MAYLIN Administration Aspirin 325 mg 03/05/19 10:00 03/09/19 10:54 Ecotrin PO 325 mg QDAY MAYLIN Administration Atorvastatin Calcium 40 mg 03/05/19 22:00 03/09/19 22:50 Lipitor PO 40 mg QHS MAYLIN Administration Cilostazol 50 mg 03/05/19 10:00 03/09/19 22:50 Pletal PO 50 mg BID MAYLIN Administration Ferrous Sulfate 325 mg 03/05/19 10:00 03/09/19 10:54 Feosol PO 325 mg DAILY MAYLIN Administration Folic Acid 1 mg 03/05/19 10:00 03/09/19 10:55 Folvite PO 1 mg QDAY MAYLIN Administration Furosemide 40 mg 03/09/19 18:00 03/09/19 17:28 Lasix IV 40 mg QDAY [facility] Administration Heparin Sodium (Porcine) 5,000 unit 03/05/19 10:00 03/09/19 22:50 Heparin SUB-Q 5,000 unit Q12HR MAYLIN Administration Hydralazine HCl 10 mg 03/05/19 12:10 03/08/19 01:58 Apresoline IV 10 mg Q4HR PRN Administration SBP>170 or DBP>110 Hydralazine HCl 50 mg 03/06/19 14:00 03/10/19 06:22 Apresoline PO 50 mg Q8HR MAYLIN Administration Hydromorphone HCl 0.5 mg 03/05/19 03:59 Dilaudid IV Q3H PRN Pain , Severe (7-10) Insulin Human Isoph/Insulin Regular 10 unit 03/06/19 09:30 03/09/19 17:29 Humulin 70/30 SUB-Q 10 unit BIDDIAB MAYLIN Administration Insulin Human Lispro 0 unit 03/05/19 07:30 03/09/19 22:16 Humalog SUB-Q Not Given ACHS [facility] Protocol Isosorbide Mononitrate 120 mg 03/05/19 10:00 03/09/19 10:54 Imdur PO 120 mg QDAY MAYLIN Administration Metoclopramide HCl 10 mg 03/05/19 03:59 Reglan IV Q6H PRN Nausea And Vomiting Metoprolol Tartrate 50 mg 03/05/19 08:00 03/09/19 16:19 Metoprolol PO 50 mg BID@0800,1700 MAYLIN Administration Nitroglycerin 0.4 mg 03/07/19 22:30 03/07/19 22:26 Nitrostat SL 0.4 mg .Q5MIN PRN Administration Chest Pain Ondansetron HCl 4 mg 03/05/19 03:59 Zofran IV Q3H PRN Nausea And Vomiting Oxycodone/Acetaminophen 1 tab 03/05/19 03:59 03/09/19 15:23 Percocet 5/325 PO 1 tab Q6H PRN Administration Pain, Moderate (4-6) Pantoprazole Sodium 40 mg 03/05/19 10:00 03/09/19 10:55 Protonix PO 40 mg QDAY MAYLIN Administration Sodium Chloride 10 ml 03/05/19 10:00 03/09/19 22:50 Sodium Chloride Flush Syringe 10 Ml IV 10 ml BID MAYLIN Administration Sodium Chloride 10 ml 03/05/19 03:59 Sodium Chloride Flush Syringe 10 Ml IV PRN PRN LINE FLUSH
[2019-03-10] MEDS: INSULIN LISPRO 100 UNIT/ML SUB-Q SCH ×4 (08:05→23:27)
[2019-03-10] MEDS: IPRATROPIUM/ALBUTEROL SULFATE 3 ML AMPUL.NEB IH SCH ×3 (08:14→19:41)
[2019-03-10] MEDS: METOPROLOL TARTRATE 50 MG TAB PO SCH ×2 (08:31→18:02)
[2019-03-10] MEDS: FOLIC ACID 1 MG TAB PO SCH (10:29)
[2019-03-10] MEDS: ASPIRIN EC 325 MG TAB PO SCH (10:29)
[2019-03-10] MEDS: FERROUS SULFATE 325 MG TAB PO SCH (10:29)
[2019-03-10] MEDS: CILOSTAZOL 100 MG TAB PO SCH ×2 (10:29→23:26)
[2019-03-10] MEDS: allopurinoL 100 MG TAB PO SCH (10:29)
[2019-03-10] MEDS: FUROSEMIDE 40 MG/4 ML INJ IV SCH (10:30)
[2019-03-10] MEDS: HEPARIN 5,000 UNIT/1 ML VIAL SUB-Q SCH ×2 (10:30→23:26)
[2019-03-10] MEDS: PANTOPRAZOLE 40 MG TAB PO SCH (10:30)
[2019-03-10] MEDS: INSULIN NPH/REGULAR 70/30 INJ SUB-Q SCH ×2 (10:31→17:00)
--- NOTE | 2019-03-10 12:57 | Progress Note ---
Assessment and Plan Cont present cardiac management, including IV diuresis. Per heme/onc - will look into more radiology testing as an inpatient. The patient has been seen in conjunction with Dr. Munir Negron who agrees with the assessment and plan of care. - Patient Problems (1) Pleural effusion Current Visit: Yes Status: Acute (2) Lung cancer Current Visit: Yes Status: Suspected (3) CAD (coronary artery disease) Current Visit: Yes Status: Chronic Qualifiers: Coronary Disease-Associated Artery/Lesion type: [place] artery (4) Stented coronary artery Current Visit: Yes Status: Chronic (5) Cardiomyopathy Current Visit: Yes Status: Chronic (6) Abnormal stress test Current Visit: Yes Status: Chronic (7) PAD (peripheral artery disease) Current Visit: Yes Status: Chronic (8) NSTEMI (non-ST elevated myocardial infarction) Current Visit: Yes Status: Acute (9) Diabetes Current Visit: Yes Status: Chronic (10) Former tobacco use Current Visit: Yes Status: Chronic (11) Anemia Current Visit: Yes Status: Chronic (12) NSVT (nonsustained ventricular tachycardia) Current Visit: Yes Status: Acute Subjective Date of service: 03/10/19 Principal diagnosis: lung ca Interval history: Pt resting in bed, no current complaints. in SR on tele, no acute events noted on telemetry overnight. Objective Last Vital Signs Temp 98.0 F 03/10/19 11:25 Pulse 83 03/10/19 11:25 Resp 18 03/10/19 11:25 BP 158/72 03/10/19 11:25 Pulse Ox 100 03/10/19 11:25 - Physical Examination General: No Apparent Distress HEENT: Positive: PERRL Neck: Positive: neck supple Cardiac: Positive: Reg Rate and Rhythm, S1/S2 Lungs: Positive: Decreased Breath Sounds Neuro: Positive: Grossly Intact Abdomen: Positive: Unremarkable Skin: Positive: Clear Musculoskeletal: Normal Range of Motion Extremities: Present: normal - Labs and Meds Comprehensive Metabolic Panel 03/10/19 Range/Units 04:53 Sodium 133 L (137-145) mmol/L Potassium 4.2 (3.6-5.0) mmol/L Chloride 98.8 (98-107) mmol/L Carbon Dioxide 19 L (22-30) mmol/L BUN 57 H (7-17) mg/dL Creatinine 1.4 H (0.7-1.2) mg/dL Glucose 77 (65-100) mg/dL Calcium 8.1 L (8.4-10.2) mg/dL - Imaging and Cardiology Echo: report reviewed (02/23: EF of 30 to 35 percent, impaired relaxation, mild MR, mild TR and moderately reduced RV systolic function) Repolarization changes or abnormalities: nonspecific abnormality, ST segment, and/or T wave
--- NOTE | 2019-03-10 13:40 | Progress Note ---
Assessment and Plan 73 y/o female with squamous cell carcinoma of the lung, now with recurrent left sided effusion, larger this time. 1. If fluid is positive, most likely will return and will need pleurx catheter. Will monitor for this. Called pathology and per front end application developer, should be finished with results today. 2. supplemental O2 3. Needs diuresis as tolerated as she has anasarca 4. Overall prognosis is guarded to poor. Subjective Date of service: 03/10/19 Principal diagnosis: lung ca Interval history: No acute events. Awaiting pathology on pleural fluid. Objective Vital Signs - 12hr 03/10/19 03/10/19 03/10/19 04:35 06:22 07:38 Temperature 99.2 F 98.8 F Pulse Rate 89 87 88 Respiratory 20 18 Rate Blood Pressure 133/64 118/62 135/62 O2 Sat by Pulse 100 100 Oximetry 03/10/19 03/10/19 03/10/19 08:31 10:30 11:25 Temperature 98.0 F Pulse Rate 95 H 86 83 Respiratory 18 Rate Blood Pressure 135/62 143/69 158/72 O2 Sat by Pulse 100 Oximetry Constitutional: no acute distress, alert Eyes: non-icteric ENT: oropharynx moist Neck: supple Ascultation: Bilateral: clear, diminished breath sounds Cardiovascular: regular rate and rhythm Gastrointestinal: normoactive bowel sounds, soft, non-tender, non-distended Integumentary: normal Extremities: no cyanosis Neurologic: normal mental status, non-focal exam Psychiatric: mood appropriate, affect normal CBC and BMP: 03/07/19 05:12 03/10/19 04:53 ABG, PT/INR, D-dimer: ABG POC ABG pH 7.375 (7.35-7.45) 03/05/19 03:29 POC ABG pCO2 42.4 (35-45) 03/05/19 03:29 POC ABG pO2 109 (80-105) H 03/05/19 03:29 POC ABG HCO3 24.7 (22-26 mml/L) 03/05/19 03:29 POC ABG Total CO2 26 (23-27mmol/L) 03/05/19 03:29 POC ABG O2 Sat 98 03/05/19 03:29 PT/INR, D-dimer PT 12.8 Sec. (12.2-14.9) 03/08/19 09:33 INR 0.97 (0.87-1.13) 03/08/19 09:33 Abnormal lab findings: Abnormal Labs 03/04/19 03/04/19 03/04/19 23:02 23:02 23:02 WBC 26.4 H RBC 3.09 L Hgb 7.7 L Hct 24.9 L MCH 25 L RDW 20.7 H Plt Count 491 H Seg Neuts % (Manual) 96.0 H Lymphocytes % (Manual) 1.0 L Seg Neutrophils # Man 25.3 H Lymphocytes # (Manual) 0.3 L Eosinophils # (Manual) 0.5 H POC ABG pO2 Sodium 135 L Carbon Dioxide BUN 37 H Creatinine Glucose 338 H POC Glucose Hemoglobin A1c Calcium 8.2 L Troponin T 0.192 H* NT-Pro-B Natriuret Pep 93367 H Albumin 2.9 L LDL Cholesterol Direct 43 L HDL Cholesterol 98 H Vancomycin Trough Crossmatch 03/05/19 03/05/19 03/05/19 03:29 05:47 07:10 WBC RBC Hgb Hct MCH RDW Plt Count Seg Neuts % (Manual) Lymphocytes % (Manual) Seg Neutrophils # Man Lymphocytes # (Manual) Eosinophils # (Manual) POC ABG pO2 109 H Sodium Carbon Dioxide BUN Creatinine Glucose POC Glucose Hemoglobin A1c 6.6 H Calcium Troponin T NT-Pro-B Natriuret Pep Albumin LDL Cholesterol Direct HDL Cholesterol Vancomycin Trough Crossmatch See Detail 03/05/19 03/05/19 03/05/19 08:44 12:35 16:29 WBC RBC Hgb Hct MCH RDW Plt Count Seg Neuts % (Manual) Lymphocytes % (Manual) Seg Neutrophils # Man Lymphocytes # (Manual) Eosinophils # (Manual) POC ABG pO2 Sodium Carbon Dioxide BUN Creatinine Glucose POC Glucose 295 H 292 H 243 H Hemoglobin A1c Calcium Troponin T NT-Pro-B Natriuret Pep Albumin LDL Cholesterol Direct HDL Cholesterol Vancomycin Trough Crossmatch 03/05/19 03/06/19 03/06/19 21:52 05:57 05:57 WBC 15.6 H RBC 3.45 L Hgb 9.0 L Hct 28.3 L MCH 26 L RDW 20.6 H Plt Count Seg Neuts % (Manual) 97.0 H Lymphocytes % (Manual) 3.0 L Seg Neutrophils # Man 15.1 H Lymphocytes # (Manual) 0.5 L Eosinophils # (Manual) POC ABG pO2 Sodium 134 L Carbon Dioxide 21 L BUN 38 H Creatinine Glucose 342 H POC Glucose 266 H Hemoglobin A1c Calcium 8.3 L Troponin T NT-Pro-B Natriuret Pep Albumin 2.9 L LDL Cholesterol Direct HDL Cholesterol Vancomycin Trough Crossmatch 03/06/19 03/06/19 03/06/19 08:37 10:28 14:59 WBC RBC Hgb Hct MCH RDW Plt Count Seg Neuts % (Manual) Lymphocytes % (Manual) Seg Neutrophils # Man Lymphocytes # (Manual) Eosinophils # (Manual) POC ABG pO2 Sodium Carbon Dioxide BUN Creatinine Glucose POC Glucose 386 H 403 H 212 H Hemoglobin A1c Calcium Troponin T NT-Pro-B Natriuret Pep Albumin LDL Cholesterol Direct HDL Cholesterol Vancomycin Trough Crossmatch 03/06/19 03/07/19 03/07/19 21:00 05:12 08:07 WBC 15.3 H RBC 3.12 L Hgb 8.2 L Hct 25.6 L MCH 26 L RDW 20.7 H Plt Count Seg Neuts % (Manual) Lymphocytes % (Manual) Seg Neutrophils # Man Lymphocytes # (Manual) Eosinophils # (Manual) POC ABG pO2 Sodium Carbon Dioxide BUN Creatinine Glucose POC Glucose 195 H 293 H Hemoglobin A1c Calcium Troponin T NT-Pro-B Natriuret Pep Albumin LDL Cholesterol Direct HDL Cholesterol Vancomycin Trough Crossmatch 03/07/19 03/07/19 03/07/19 12:02 17:02 21:12 WBC RBC Hgb Hct MCH RDW Plt Count Seg Neuts % (Manual) Lymphocytes % (Manual) Seg Neutrophils # Man Lymphocytes # (Manual) Eosinophils # (Manual) POC ABG pO2 Sodium Carbon Dioxide BUN Creatinine Glucose POC Glucose 330 H 282 H 317 H Hemoglobin A1c Calcium Troponin T NT-Pro-B Natriuret Pep Albumin LDL Cholesterol Direct HDL Cholesterol Vancomycin Trough Crossmatch 03/08/19 03/08/19 03/08/19 08:31 11:00 12:02 WBC RBC Hgb Hct MCH RDW Plt Count Seg Neuts % (Manual) Lymphocytes % (Manual) Seg Neutrophils # Man Lymphocytes # (Manual) Eosinophils # (Manual) POC ABG pO2 Sodium Carbon Dioxide BUN Creatinine Glucose POC Glucose 236 H 301 H Hemoglobin A1c Calcium Troponin T NT-Pro-B Natriuret Pep Albumin LDL Cholesterol Direct HDL Cholesterol Vancomycin Trough 21.9 H Crossmatch 03/08/19 03/08/19 03/08/19 16:07 17:07 22:45 WBC RBC Hgb Hct MCH RDW Plt Count Seg Neuts % (Manual) Lymphocytes % (Manual) Seg Neutrophils # Man Lymphocytes # (Manual) Eosinophils # (Manual) POC ABG pO2 Sodium 131 L Carbon Dioxide 20 L BUN 49 H Creatinine 1.3 H Glucose 289 H POC Glucose 296 H 192 H Hemoglobin A1c Calcium Troponin T NT-Pro-B Natriuret Pep Albumin LDL Cholesterol Direct HDL Cholesterol Vancomycin Trough Crossmatch 03/09/19 03/09/19 03/09/19 08:31 11:01 12:11 WBC RBC Hgb Hct MCH RDW Plt Count Seg Neuts % (Manual) Lymphocytes % (Manual) Seg Neutrophils # Man Lymphocytes # (Manual) Eosinophils # (Manual) POC ABG pO2 Sodium Carbon Dioxide BUN Creatinine Glucose POC Glucose 60 L 183 H 219 H Hemoglobin A1c Calcium Troponin T NT-Pro-B Natriuret Pep Albumin LDL Cholesterol Direct HDL Cholesterol Vancomycin Trough Crossmatch 03/09/19 03/09/19 03/10/19 16:15 21:08 04:53 WBC RBC Hgb Hct MCH RDW Plt Count Seg Neuts % (Manual) Lymphocytes % (Manual) Seg Neutrophils # Man Lymphocytes # (Manual) Eosinophils # (Manual) POC ABG pO2 Sodium 133 L Carbon Dioxide 19 L BUN 57 H Creatinine 1.4 H Glucose POC Glucose 202 H 115 H Hemoglobin A1c Calcium 8.1 L Troponin T NT-Pro-B Natriuret Pep Albumin LDL Cholesterol Direct HDL Cholesterol Vancomycin Trough Crossmatch 03/10/19 03/10/19 10:19 11:32 WBC RBC Hgb Hct MCH RDW Plt Count Seg Neuts % (Manual) Lymphocytes % (Manual) Seg Neutrophils # Man Lymphocytes # (Manual) Eosinophils # (Manual) POC ABG pO2 Sodium Carbon Dioxide BUN Creatinine Glucose POC Glucose 151 H 146 H Hemoglobin A1c Calcium Troponin T NT-Pro-B Natriuret Pep Albumin LDL Cholesterol Direct HDL Cholesterol Vancomycin Trough Crossmatch
[2019-03-10] MEDS: oxyCODONE /ACETAMINOPHEN 5-325MG TAB PO PRN (18:09)
--- NOTE | 2019-03-10 18:28 | Progress Note ---
Assessment and Plan Assessment and plan: Acute on chronic resp failure patient was discharged home on 03/03/19 to [facility] on Oxygen at 2l/min NC Returned to ED following day 03/04 Anemia Transfuse 1 Unit PRBC because of more shortness of breath, CHF Lung cancer on left from pathology Left lung cavitating lung lesion and L pleural effusion: The patient also been treated for cavitary pneumonia Pleural fluid 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 Followed by Pulmonary. S/p CT-guided lung biopsy- path shows lung cancer Left pleural effusion Recurrent and appears larger. Pulm following Acute hypoxic respiratory failure Possibly secondary to underlying pneumonia and malignancy, left pleural effusion and CHF exacerbation. She has been placed on BiPAP - now weaned off s/p thoracentesis on 02/19 drained 700cc fluid, 2-D echo showed EF of 30-35% Acute on chronic systolic CHF We will continue patient on routine home medications. Will monitor daily weight monitor input and output. 2-D echo showed EF of 30-35%, we'll continue [facility] Cardiology following. Stress test done 02/23 abnormal. Was scheduled for cardiac cath but canceled because of anemia NEELIMA, acute on CKD? Physical debility, PT recommended acute rehab DVT prophylaxis: Heparin Full code status To follow up with Dr. Franco in 1 week for recently diagnosed lung cancer,last week. History Interval history: No new issues. Hospitalist Physical - Constitutional Vitals: Temp Pulse Resp BP Pulse Ox 98.0 F 105 H 18 159/64 94 03/10/19 16:05 03/10/19 18:02 03/10/19 16:05 03/10/19 18:02 03/10/19 16:05 General appearance: Present: no acute distress - EENT Eyes: Present: PERRL, EOM intact ENT: hearing intact, clear oral mucosa, dentition normal - Neck Neck: Present: supple, normal ROM - Respiratory Respiratory effort: normal Respiratory: bilateral: CTA - Cardiovascular Rhythm: regular Heart Sounds: Present: S1 & S2. Absent: gallop, rub - Extremities Extremities: no ischemia, No edema, Full ROM - Abdominal General gastrointestinal: soft, non-tender, non-distended, normal bowel sounds - Integumentary Integumentary: Present: clear, warm, dry - Neurologic Neurologic: CNII-XII intact, moves all extremities Results - Labs CBC & Chem 7: 03/07/19 05:12 03/10/19 04:53 Labs: Laboratory Last Values WBC 15.3 K/mm3 (4.5-11.0) H 03/07/19 05:12 RBC 3.12 M/mm3 (3.65-5.03) L 03/07/19 05:12 Hgb 8.2 gm/dl (10.1-14.3) L 03/07/19 05:12 Hct 25.6 % (30.3-42.9) L 03/07/19 05:12 MCV 82 fl (79-97) 03/07/19 05:12 MCH 26 pg (28-32) L 03/07/19 05:12 MCHC 32 % (30-34) 03/07/19 05:12 RDW 20.7 % (13.2-15.2) H 03/07/19 05:12 Plt Count 395 K/mm3 (140-440) 03/07/19 05:12 Add Manual Diff Complete 03/06/19 05:57 Total Counted 100 03/06/19 05:57 Seg Neutrophils % Bryologist 03/06/19 05:57 Seg Neuts % (Manual) 97.0 % (40.0-70.0) H 03/06/19 05:57 Band Neutrophils % 0 % 03/06/19 05:57 Lymphocytes % (Manual) 3.0 % (13.4-35.0) L 03/06/19 05:57 Reactive Lymphs % (Man) 0 % 03/06/19 05:57 Monocytes % (Manual) 0 % (0.0-7.3) 03/06/19 05:57 Eosinophils % (Manual) 0 % (0.0-4.3) 03/06/19 05:57 Basophils % (Manual) 0 % (0.0-1.8) 03/06/19 05:57 Metamyelocytes % 0 % 03/06/19 05:57 Myelocytes % 0 % 03/06/19 05:57 Promyelocytes % 0 % 03/06/19 05:57 Blast Cells % 0 % 03/06/19 05:57 Nucleated RBC % Not Reportable 03/06/19 05:57 Seg Neutrophils # Man 15.1 K/mm3 (1.8-7.7) H 03/06/19 05:57 Band Neutrophils # 0.0 K/mm3 03/06/19 05:57 Lymphocytes # (Manual) 0.5 K/mm3 (1.2-5.4) L 03/06/19 05:57 Abs React Lymphs (Man) 0.0 K/mm3 03/06/19 05:57 Monocytes # (Manual) 0.0 K/mm3 (0.0-0.8) 03/06/19 05:57 Eosinophils # (Manual) 0.0 K/mm3 (0.0-0.4) 03/06/19 05:57 Basophils # (Manual) 0.0 K/mm3 (0.0-0.1) 03/06/19 05:57 Metamyelocytes # 0.0 K/mm3 03/06/19 05:57 Myelocytes # 0.0 K/mm3 03/06/19 05:57 Promyelocytes # 0.0 K/mm3 03/06/19 05:57 Blast Cells # 0.0 K/mm3 03/06/19 05:57 WBC Morphology Not Reportable 03/06/19 05:57 Hypersegmented Neuts Not Reportable 03/06/19 05:57 Hyposegmented Neuts Not Reportable 03/06/19 05:57 Hypogranular Neuts Not Reportable 03/06/19 05:57 Smudge Cells Not Reportable 03/06/19 05:57 Toxic Granulation Not Reportable 03/06/19 05:57 Toxic Vacuolation Not Reportable 03/06/19 05:57 Dohle Bodies Not Reportable 03/06/19 05:57 Pelger-Huet Anomaly Not Reportable 03/06/19 05:57 Jessica Rods Not Reportable 03/06/19 05:57 Platelet Estimate Cons 03/06/19 05:57 Clumped Platelets Not Reportable 03/06/19 05:57 Plt Clumps, EDTA Not Reportable 03/06/19 05:57 Large Platelets Few 03/06/19 05:57 Giant Platelets Not Reportable 03/06/19 05:57 Platelet Satelliting Not Reportable 03/06/19 05:57 Plt Morphology Comment Not Reportable 03/06/19 05:57 RBC Morphology Not Reportable 03/06/19 05:57 Dimorphic RBCs Not Reportable 03/06/19 05:57 Polychromasia Not Reportable 03/06/19 05:57 Hypochromasia 1+ 03/06/19 05:57 Poikilocytosis Not Reportable 03/06/19 05:57 Anisocytosis Not Reportable 03/06/19 05:57 Microcytosis Not Reportable 03/06/19 05:57 Macrocytosis Not Reportable 03/06/19 05:57 Spherocytes Few 03/06/19 05:57 Pappenheimer Bodies Not Reportable 03/06/19 05:57 Sickle Cells Not Reportable 03/06/19 05:57 Target Cells 1+ 03/06/19 05:57 Tear Drop Cells Not Reportable 03/06/19 05:57 Ovalocytes Not Reportable 03/06/19 05:57 Helmet Cells Not Reportable 03/06/19 05:57 [place] Bodies Not Reportable 03/06/19 05:57 [place] Rings Not Reportable 03/06/19 05:57 [place] Cells Not Reportable 03/06/19 05:57 Bite Cells Not Reportable 03/06/19 05:57 Crenated Cell Not Reportable 03/06/19 05:57 Elliptocytes Not Reportable 03/06/19 05:57 Acanthocytes (Spur) Not Reportable 03/06/19 05:57 Rouleaux Not Reportable 03/06/19 05:57 Hemoglobin C Crystals Not Reportable 03/06/19 05:57 Schistocytes Not Reportable 03/06/19 05:57 Malaria parasites Not Reportable 03/06/19 05:57 Gal[place] Bodies Not Reportable 03/06/19 05:57 Hem Pathologist Commnt No 03/06/19 05:57 PT 12.8 Sec. (12.2-14.9) 03/08/19 09:33 INR 0.97 (0.87-1.13) 03/08/19 09:33 POC ABG pH 7.375 (7.35-7.45) 03/05/19 03:29 POC ABG pCO2 42.4 (35-45) 03/05/19 03:29 POC ABG pO2 109 (80-105) H 03/05/19 03:29 POC ABG HCO3 24.7 (22-26 mml/L) 03/05/19 03:29 POC ABG Total CO2 26 (23-27mmol/L) 03/05/19 03:29 POC ABG O2 Sat 98 03/05/19 03:29 POC ABG Base Excess 0 ((-2) - (+3)mmol/L) 03/05/19 03:29 FiO2 40 % 03/05/19 03:29 Sodium 133 mmol/L (137-145) L 03/10/19 04:53 Potassium 4.2 mmol/L (3.6-5.0) 03/10/19 04:53 Chloride 98.8 mmol/L (98-107) 03/10/19 04:53 Carbon Dioxide 19 mmol/L (22-30) L 03/10/19 04:53 Anion Gap 19 mmol/L 03/10/19 04:53 BUN 57 mg/dL (7-17) H 03/10/19 04:53 Creatinine 1.4 mg/dL (0.7-1.2) H 03/10/19 04:53 Estimated GFR 44 ml/min 03/10/19 04:53 BUN/Creatinine Ratio 41 % 03/10/19 04:53 Glucose 77 mg/dL (65-100) 03/10/19 04:53 POC Glucose 73 (70-105) 03/10/19 16:19 Hemoglobin A1c 6.6 % (4-6) H 03/05/19 05:47 Lactic Acid 1.20 mmol/L (0.7-2.0) 03/05/19 05:47 Calcium 8.1 mg/dL (8.4-10.2) L 03/10/19 04:53 Magnesium 2.00 mg/dL (1.7-2.3) 03/08/19 17:07 Total Bilirubin 0.20 mg/dL (0.1-1.2) 03/06/19 05:57 AST 20 units/L (5-40) 03/06/19 05:57 ALT 22 units/L (7-56) 03/06/19 05:57 Alkaline Phosphatase 80 units/L (35-129) 03/06/19 05:57 Troponin T 0.192 ng/mL (0.00-0.029) H* 03/04/19 23:02 NT-Pro-B Natriuret Pep 68321 pg/mL (0-900) H 03/04/19 23:02 Total Protein 6.7 g/dL (6.3-8.2) 03/06/19 05:57 Albumin 2.9 g/dL (3.9-5) L 03/06/19 05:57 Albumin/Globulin Ratio 0.8 % 03/06/19 05:57 Triglycerides 96 mg/dL (2-149) 03/04/19 23:02 Cholesterol 155 mg/dL (50-199) 03/04/19 23:02 LDL Cholesterol Direct 43 mg/dL (50-130) L 03/04/19 23:02 HDL Cholesterol 98 mg/dL (40-59) H 03/04/19 23:02 Cholesterol/HDL Ratio 1.58 % 03/04/19 23:02 Vancomycin Trough 21.9 ug/mL (5.0-20.0) H 03/08/19 11:00 Blood Type O POSITIVE 03/05/19 07:10 Antibody Screen Negative 03/05/19 07:10 Crossmatch See Detail 03/05/19 07:10 Active Medications - Current Medications Current Medications: Generic Name Dose Route Start Last Admin Trade Name Freq PRN Reason Stop Dose Admin Acetaminophen 650 mg 03/05/19 03:59 03/09/19 23:05 Tylenol PO 650 mg Q4H PRN Administration Pain MILD(1-3)/Fever >100.5/BRENNER Albuterol 2.5 mg 03/05/19 04:20 03/08/19 01:15 Proventil IH 2.5 mg Q3HRT PRN Administration Shortness Of Breath Albuterol/Ipratropium 1 ampul 03/05/19 14:00 03/10/19 14:50 Duoneb *Not For Prn Use* IH 1 ampul TIDRT MAYLIN Administration Allopurinol 100 mg 03/05/19 10:00 03/10/19 10:29 Zyloprim PO 100 mg DAILY MAYLIN Administration Aspirin 325 mg 03/05/19 10:00 03/10/19 10:29 Ecotrin PO 325 mg QDAY MAYLIN Administration Atorvastatin Calcium 40 mg 03/05/19 22:00 03/09/19 22:50 Lipitor PO 40 mg QHS MAYLIN Administration Cilostazol 50 mg 03/05/19 10:00 03/10/19 10:29 Pletal PO 50 mg BID MAYLIN Administration Ferrous Sulfate 325 mg 03/05/19 10:00 03/10/19 10:29 Feosol PO 325 mg DAILY [facility] Administration Folic Acid 1 mg 03/05/19 10:00 03/10/19 10:29 Folvite PO 1 mg QDAY [facility] Administration Furosemide 40 mg 03/09/19 18:00 03/10/19 10:30 Lasix IV 40 mg QDAY MAYLIN Administration Heparin Sodium (Porcine) 5,000 unit 03/05/19 10:00 03/10/19 10:30 Heparin SUB-Q 5,000 unit Q12HR MAYLIN Administration Hydralazine HCl 10 mg 03/05/19 12:10 03/08/19 01:58 Apresoline IV 10 mg Q4HR PRN Administration SBP>170 or DBP>110 Hydralazine HCl 50 mg 03/06/19 14:00 03/10/19 15:00 Apresoline PO 50 mg Q8HR MAYLIN Administration Hydromorphone HCl 0.5 mg 03/05/19 03:59 Dilaudid IV Q3H PRN Pain , Severe (7-10) Insulin Human Isoph/Insulin Regular 10 unit 03/06/19 09:30 03/10/19 17:00 Humulin 70/30 SUB-Q Not Given BIDDIAB [facility] Insulin Human Lispro 0 unit 03/05/19 07:30 03/10/19 17:17 Humalog SUB-Q Not Given [facility] Protocol Isosorbide Mononitrate 120 mg 03/05/19 10:00 03/10/19 10:30 Imdur PO 120 mg QDAY [facility] Administration Metoclopramide HCl 10 mg 03/05/19 03:59 Reglan IV Q6H PRN Nausea And Vomiting Metoprolol Tartrate 50 mg 03/05/19 08:00 03/10/19 18:02 Metoprolol PO 50 mg BID@0800,1700 [facility] Administration Nitroglycerin 0.4 mg 03/07/19 22:30 03/07/19 22:26 Nitrostat SL 0.4 mg .Q5MIN PRN Administration Chest Pain Ondansetron HCl 4 mg 03/05/19 03:59 Zofran IV Q3H PRN Nausea And Vomiting Oxycodone/Acetaminophen 1 tab 03/05/19 03:59 03/10/19 18:09 Percocet 5/325 PO 1 tab Q6H PRN Administration Pain, Moderate (4-6) Pantoprazole Sodium 40 mg 03/05/19 10:00 03/10/19 10:30 Protonix PO 40 mg QDAY MAYLIN Administration Sodium Chloride 10 ml 03/05/19 10:00 03/10/19 10:27 Sodium Chloride Flush Syringe 10 Ml IV 10 ml BID MAYLIN Administration Sodium Chloride 10 ml 03/05/19 03:59 Sodium Chloride Flush Syringe 10 Ml IV PRN PRN LINE FLUSH
--- NOTE | 2019-03-10 19:40 | Consultation ---
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 CONCLUSION: 1. History of squamous cell carcinoma of the left lung with associated large left pleural effusion, diagnosed in 02/19/2019. 2. History of coronary artery disease, cardiomyopathy, hypertension, thrombocytosis, anemia, hemoptysis. 3. History a prison resident. RECOMMENDATION: I would discuss the findings with Dr. Franco. We agree she will require a PET/CT scan as an outpatient. We will consider palliative radiotherapy to the chest to a dose of 60 Gy. ASSESSMENT: This is a very pleasant 73-year-old -[place]i woman who reportedly resides in a prison, has a history of COPD, hypertension, diabetes, congestive heart failure, coronary artery disease and has a history of newly diagnosed left lung cancer with squamous cell carcinoma. The patient was hospitalized at [facility] with progressive dyspnea. She has had intermittent hemoptysis. She was found on chest x-ray to have a large left pleural effusion, underwent thoracentesis on 02/19/2019, and bronchoscopy previously on 02/11 and pathology from 03/02/2019 showed squamous cell carcinoma. A CT scan of the chest performed on 02/19/2019 as compared to 02/09 CAT scan shows interval development of ground glass opacity, interlobular septal thickening, and small effusion on the right side. These abnormalities may be due to volume overload. There is consolidation on the left lower lobe. There is a 1.1 cm solid nodule in the left upper lobe. No evidence of metastatic disease to the upper abdomen. On recent admission to [facility], a CT scan of the abdomen and pelvis did reveal on limited lower thoracic images, a mass in the lingular segment on the left upper lobe with a small residual left pleural effusion. There is no evidence of abdominal or pelvic disease. There is diffuse subcutaneous edema. The patient is now referred for radiation. Clinically, the patient says she has minimal left arm pain. Denies any recurrent hemoptysis. She has moderate dyspnea. SOCIAL HISTORY: History of tobacco use. PAST SURGICAL HISTORY: Cardiac stent. FAMILY HISTORY: Hypertension. REVIEW OF SYSTEMS: CONSTITUTIONAL: Weak, tired, poor appetite. HEENT: Denies any headache, double vision, blurry vision. RESPIRATORY: She has dyspnea, hemoptysis. CARDIOVASCULAR: Denies chest pain, angina. GASTROINTESTINAL: Denies nausea, vomiting, diarrhea. GENITOURINARY: Denies incontinence, dysuria, or hematuria. PHYSICAL EXAMINATION: GENERAL: She is a very chronically ill-appearing woman, in mild respiratory distress. VITAL SIGNS: Temperature afebrile, pulse 86, respirations 22, blood pressure 144/57. ECOG equals 3. Pain equals 2/10. Nasal cannula oxygen in place. HEENT: Normocephalic. No icterus. NECK: Full. No palpable nodes. LUNGS: Show decreased breath sounds in both lungs. CARDIOVASCULAR: Faint heart tones, regular rate and rhythm. ABDOMEN: Soft. No palpable masses or hepatosplenomegaly. EXTREMITIES: No clubbing, cyanosis or edema. NEUROLOGIC: Answers questions appropriately. Motor and sensory, and cerebellar exam intact. Cranial nerves 2-12 are grossly intact. DISCUSSION: This is an unfortunate 73-year-old woman with multiple medical problems including squamous cell carcinoma of the left lung. Her condition is guarded. The patient is on oxygen. She will require a PET/CT scan as an outpatient if her condition improves. If her condition improves, we can consider palliative radiotherapy to a dose of 60 Gy. Risk of radiation including fatigue, cough, fever, esophagitis, pneumonitis was discussed with the patient. We will follow up on her condition in the hospital. JOB# [id number] LORI/SRAVANTHI
[2019-03-10] MEDS: NITROGLYCERIN 0.4 MG TAB SUBL SL PRN (20:50)
[2019-03-11] MEDS: hydrALAZINE 25 MG TAB PO SCH ×3 (05:41→22:44)
[2019-03-11 05:52] LABS: Calcium 7.7 mg/dL (8.4-10.2)
--- NOTE | 2019-03-11 07:49 | Hem/Onc Progress Note ---
Assessment and Plan 1. Squamous cell cancer of lung. 2. Left upper lobe mass. 3. The patient is short of breath. The plan was to see her in outpatient setting to see if any oral agent can be used. 4. History of pleural effusion, history of coronary artery disease, history of cardiomyopathy, history of hypertension. 5. Anemia. 6. Thrombocytosis. 7. Low folate. 8. History of hemoptysis. 9. The plan was to do a PET/CT as an outpatient. CT abdo pelvis - no mets CT head a few weeks ago - no mets pt is on o2 - guarded prognosis - as limited options - d/w daughter - for oral or iv chemo - pt needs to come to office XRT eval - d/w dr Torres -spoke to him - Patient Problems (1) Lung cancer Current Visit: Yes Status: Suspected Subjective Date of service: 03/11/19 Principal diagnosis: sq cell ca lung Interval history: on o2 - no pain Objective - Exam Narrative Exam: Pain - none General appearance - alert Performance status complete dependence Eyes - no icterus ENT - no bleeding LNs cervical not palpable Neck - no LN Respiratory Normal - on o2 Breath sounds - CTA anteriorly CVS S1 S2 + Extremities no edema General GI Soft Rectal deferred female - deferred Skin warm Musculoskeletal - moving limbs Neurologically alert awake - Constitutional Vitals: Last Vital Signs Temp 98.5 F 03/11/19 04:46 Pulse 83 03/11/19 04:42 Resp 20 03/11/19 04:42 BP 141/59 03/11/19 05:41 Pulse Ox 95 03/11/19 04:42 - Labs Lab Results: Laboratory Results - last 24 hr 03/10/19 03/10/19 03/10/19 10:19 11:32 16:19 Sodium Potassium Chloride Carbon Dioxide Anion Gap BUN Creatinine Estimated GFR BUN/Creatinine Ratio Glucose POC Glucose 151 H 146 H 73 Calcium 03/10/19 03/10/19 03/11/19 18:24 20:55 04:34 Sodium 131 L Potassium 4.2 Chloride 99.1 Carbon Dioxide 20 L Anion Gap 16 BUN 57 H Creatinine 1.7 H Estimated GFR 35 BUN/Creatinine Ratio 34 Glucose 189 H POC Glucose 106 H 82 Calcium 7.7 L Medications & Allergies - Medications Allergies/Adverse Reactions: Allergies ibuprofen Allergy (Verified 02/18/19 23:29) Unknown Penicillins Allergy (Verified 02/18/19 23:29) Unknown Home Medications: Home Medications Medication Instructions Recorded Confirmed Last Taken Type Allopurinol 100 mg PO DAILY 12/26/18 03/05/19 03/04/19 History Cilostazol 50 mg PO BID 12/26/18 03/05/19 03/04/19 History Ferrous Sulfate 325 mg PO DAILY 12/26/18 03/05/19 03/04/19 History RX: Ipratropium (Nf) [Atrovent HFA 2 puff IH Q6HR PRN #1 inha 01/11/19 03/05/19 Unknown Rx 17MCG/PUFF] RX: AtorvaSTATin [Lipitor] 40 mg PO QHS 02/09/19 03/05/19 03/04/19 History RX: Pantoprazole [Protonix TAB] 40 mg PO QDAY #30 tablet 02/16/19 03/05/19 Unknown Rx RX: hydrALAZINE [Apresoline TAB] 25 mg PO Q8HR #90 tablet 02/16/19 03/05/19 03/04/19 Rx RX: Furosemide [Lasix TAB] 20 mg PO QDAY tablet 03/01/19 03/05/19 03/04/19 Rx RX: ISOSORBIDE MONOnitrate [Imdur 120 mg PO QDAY tablet 03/01/19 03/05/19 03/04/19 Rx ER] RX: Metoprolol [Lopressor TAB] 50 mg PO BID tablet 03/01/19 03/05/19 Unknown Rx RX: Aspirin EC 325 mg PO QDAY #30 tablet 03/03/19 03/05/19 03/04/19 Rx RX: Folic Acid [Folvite] 1 mg PO QDAY #30 tablet 03/03/19 03/05/19 03/04/19 Rx RX: Insulin NPH/Regular [NovoLIN 8 unit SUB-Q ACHS 03/05/19 03/05/19 Unknown History 30] Active Medications: Generic Name Dose Route Start Last Admin Trade Name Freq PRN Reason Stop Dose Admin Acetaminophen 650 mg 03/05/19 03:59 03/09/19 23:05 Tylenol PO 650 mg Q4H PRN Administration Pain MILD(1-3)/Fever >100.5/BRENNER Albuterol 2.5 mg 03/05/19 04:20 03/08/19 01:15 Proventil IH 2.5 mg Q3HRT PRN Administration Shortness Of Breath Albuterol/Ipratropium 1 ampul 03/05/19 14:00 03/10/19 19:41 Duoneb *Not For Prn Use* IH 1 ampul TIDRT MAYLIN Administration Allopurinol 100 mg 03/05/19 10:00 03/10/19 10:29 Zyloprim PO 100 mg DAILY MAYLIN Administration Aspirin 325 mg 03/05/19 10:00 03/10/19 10:29 Ecotrin PO 325 mg QDAY MAYLIN Administration Atorvastatin Calcium 40 mg 03/05/19 22:00 03/10/19 23:25 Lipitor PO 40 mg QHS MAYLIN Administration Cilostazol 50 mg 03/05/19 10:00 03/10/19 23:26 Pletal PO 50 mg BID MAYLIN Administration Ferrous Sulfate 325 mg 03/05/19 10:00 03/10/19 10:29 Feosol PO 325 mg DAILY MAYLIN Administration Folic Acid 1 mg 03/05/19 10:00 03/10/19 10:29 Folvite PO 1 mg QDAY MAYLIN Administration Furosemide 40 mg 03/09/19 18:00 03/10/19 10:30 Lasix IV 40 mg QDAY [facility] Administration Heparin Sodium (Porcine) 5,000 unit 03/05/19 10:00 03/10/19 23:26 Heparin SUB-Q 5,000 unit Q12HR MAYLIN Administration Hydralazine HCl 10 mg 03/05/19 12:10 03/08/19 01:58 Apresoline IV 10 mg Q4HR PRN Administration SBP>170 or DBP>110 Hydralazine HCl 50 mg 03/06/19 14:00 03/11/19 05:41 Apresoline PO 50 mg Q8HR MAYLIN Administration Hydromorphone HCl 0.5 mg 03/05/19 03:59 Dilaudid IV Q3H PRN Pain , Severe (7-10) Insulin Human Isoph/Insulin Regular 10 unit 03/06/19 09:30 03/10/19 17:00 Humulin 70/30 SUB-Q Not Given BIDDIAB [facility] Insulin Human Lispro 0 unit 03/05/19 07:30 03/10/19 23:27 Humalog SUB-Q Not Given ACHS [facility] Protocol Isosorbide Mononitrate 120 mg 03/05/19 10:00 03/10/19 10:30 Imdur PO 120 mg QDAY MAYLIN Administration Metoclopramide HCl 10 mg 03/05/19 03:59 Reglan IV Q6H PRN Nausea And Vomiting Metoprolol Tartrate 50 mg 03/05/19 08:00 03/10/19 18:02 Metoprolol PO 50 mg BID@0800,1700 MAYLIN Administration Nitroglycerin 0.4 mg 03/07/19 22:30 03/10/19 20:50 Nitrostat SL 0.4 mg .Q5MIN PRN Administration Chest Pain Ondansetron HCl 4 mg 03/05/19 03:59 Zofran IV Q3H PRN Nausea And Vomiting Oxycodone/Acetaminophen 1 tab 03/05/19 03:59 03/10/19 18:09 Percocet 5/325 PO 1 tab Q6H PRN Administration Pain, Moderate (4-6) Pantoprazole Sodium 40 mg 03/05/19 10:00 03/10/19 10:30 Protonix PO 40 mg QDAY MAYLIN Administration Sodium Chloride 10 ml 03/05/19 10:00 03/10/19 23:26 Sodium Chloride Flush Syringe 10 Ml IV 10 ml BID MAYLIN Administration Sodium Chloride 10 ml 03/05/19 03:59 Sodium Chloride Flush Syringe 10 Ml IV PRN PRN LINE FLUSH
[2019-03-11] MEDS: METOPROLOL TARTRATE 50 MG TAB PO SCH ×2 (08:00→18:07)
[2019-03-11] MEDS: IPRATROPIUM/ALBUTEROL SULFATE 3 ML AMPUL.NEB IH SCH ×3 (08:55→19:41)
[2019-03-11] MEDS: INSULIN LISPRO 100 UNIT/ML SUB-Q SCH ×4 (09:11→23:03)
[2019-03-11] MEDS: INSULIN NPH/REGULAR 70/30 INJ SUB-Q SCH ×2 (09:12→17:42)
[2019-03-11] MEDS: CILOSTAZOL 100 MG TAB PO SCH ×2 (09:59→22:43)
[2019-03-11] MEDS: FERROUS SULFATE 325 MG TAB PO SCH (09:59)
[2019-03-11] MEDS: allopurinoL 100 MG TAB PO SCH (10:00)
[2019-03-11] MEDS: PANTOPRAZOLE 40 MG TAB PO SCH (10:00)
[2019-03-11] MEDS: FOLIC ACID 1 MG TAB PO SCH (10:00)
[2019-03-11] MEDS: ASPIRIN EC 325 MG TAB PO SCH (10:00)
[2019-03-11] MEDS: FUROSEMIDE 40 MG/4 ML INJ IV SCH (10:00)
[2019-03-11] MEDS: HEPARIN 5,000 UNIT/1 ML VIAL SUB-Q SCH ×2 (10:01→22:44)
--- NOTE | 2019-03-11 10:36 | Progress Note ---
Assessment and Plan Cont present cardiac management, including IV diuresis. The patient has been seen in conjunction with Dr. Munir Negron who agrees with the assessment and plan of care. - Patient Problems (1) Pleural effusion Current Visit: Yes Status: Acute (2) Lung cancer Current Visit: Yes Status: Suspected (3) CAD (coronary artery disease) Current Visit: Yes Status: Chronic Qualifiers: Coronary Disease-Associated Artery/Lesion type: [place] artery (4) Stented coronary artery Current Visit: Yes Status: Chronic (5) Cardiomyopathy Current Visit: Yes Status: Chronic (6) Abnormal stress test Current Visit: Yes Status: Chronic (7) PAD (peripheral artery disease) Current Visit: Yes Status: Chronic (8) NSTEMI (non-ST elevated myocardial infarction) Current Visit: Yes Status: Acute (9) Diabetes Current Visit: Yes Status: Chronic (10) Former tobacco use Current Visit: Yes Status: Chronic (11) Anemia Current Visit: Yes Status: Chronic (12) NSVT (nonsustained ventricular tachycardia) Current Visit: Yes Status: Acute Subjective Date of service: 03/11/19 Principal diagnosis: lung ca Interval history: Pt resting in bed, no current complaints. in SR on tele, 4 beat NSVT noted yesterday around noon. Objective Last Vital Signs Temp 98.2 F 03/11/19 07:50 Pulse 94 H 03/11/19 10:00 Resp 18 03/11/19 07:50 BP 141/60 03/11/19 10:00 Pulse Ox 99 03/11/19 07:50 - Physical Examination General: No Apparent Distress HEENT: Positive: PERRL Neck: Positive: neck supple Cardiac: Positive: Reg Rate and Rhythm, S1/S2 Lungs: Positive: Decreased Breath Sounds Neuro: Positive: Grossly Intact Abdomen: Positive: Unremarkable Skin: Positive: Clear Musculoskeletal: Normal Range of Motion Extremities: Present: normal - Labs and Meds Comprehensive Metabolic Panel 03/11/19 Range/Units 04:34 Sodium 131 L (137-145) mmol/L Potassium 4.2 (3.6-5.0) mmol/L Chloride 99.1 (98-107) mmol/L Carbon Dioxide 20 L (22-30) mmol/L BUN 57 H (7-17) mg/dL Creatinine 1.7 H (0.7-1.2) mg/dL Glucose 189 H (65-100) mg/dL Calcium 7.7 L (8.4-10.2) mg/dL - Imaging and Cardiology Echo: report reviewed (02/23: EF of 30 to 35 percent, impaired relaxation, mild MR, mild TR and moderately reduced RV systolic function) Repolarization changes or abnormalities: nonspecific abnormality, ST segment, and/or T wave
--- NOTE | 2019-03-11 13:21 | Progress Note ---
Assessment and Plan 73 y/o female with squamous cell carcinoma of the lung, now with recurrent left sided effusion, larger this time. 1. If fluid is positive, most likely will return and will need pleurx catheter. Now Roxanne says it will be later today. I have checked a repeat CXR to see if fluid is reaccumulating as patient has had some worsening shortness of breath 2. supplemental O2 3. Needs diuresis as tolerated as she has anasarca 4. Overall prognosis is guarded to poor. Subjective Date of service: 03/11/19 Principal diagnosis: lung ca Interval history: Called roxanne, per Dr. Ritchie, sending out for special stains as she cannot tell if this is malignant or not. Objective Vital Signs - 12hr 03/11/19 03/11/19 03/11/19 04:42 04:46 05:41 Temperature 98.5 F Pulse Rate 83 Respiratory 20 Rate Blood Pressure 141/59 141/59 Blood Pressure [Left] O2 Sat by Pulse 95 Oximetry 03/11/19 03/11/19 03/11/19 07:33 07:34 07:50 Temperature 98.0 F 98.2 F Pulse Rate 86 87 85 Respiratory 18 18 Rate Blood Pressure 150/61 Blood Pressure 150/61 [Left] O2 Sat by Pulse 95 98 99 Oximetry 03/11/19 03/11/19 03/11/19 08:00 09:57 10:00 Temperature Pulse Rate 85 96 H 94 H Respiratory Rate Blood Pressure 150/61 141/60 141/60 Blood Pressure [Left] O2 Sat by Pulse 99 Oximetry 03/11/19 11:10 Temperature 97.9 F Pulse Rate Respiratory 18 Rate Blood Pressure 146/55 Blood Pressure [Left] O2 Sat by Pulse Oximetry Constitutional: no acute distress, alert Eyes: non-icteric ENT: oropharynx moist Neck: supple Ascultation: Bilateral: clear, diminished breath sounds Cardiovascular: regular rate and rhythm Gastrointestinal: normoactive bowel sounds, soft, non-tender, non-distended Integumentary: normal Extremities: no cyanosis Neurologic: normal mental status, non-focal exam Psychiatric: mood appropriate, affect normal CBC and BMP: 03/07/19 05:12 03/11/19 04:34 ABG, PT/INR, D-dimer: ABG POC ABG pH 7.375 (7.35-7.45) 03/05/19 03:29 POC ABG pCO2 42.4 (35-45) 03/05/19 03:29 POC ABG pO2 109 (80-105) H 03/05/19 03:29 POC ABG HCO3 24.7 (22-26 mml/L) 03/05/19 03:29 POC ABG Total CO2 26 (23-27mmol/L) 03/05/19 03:29 POC ABG O2 Sat 98 03/05/19 03:29 PT/INR, D-dimer PT 12.8 Sec. (12.2-14.9) 03/08/19 09:33 INR 0.97 (0.87-1.13) 03/08/19 09:33 Abnormal lab findings: Abnormal Labs 03/04/19 03/04/19 03/04/19 23:02 23:02 23:02 WBC 26.4 H RBC 3.09 L Hgb 7.7 L Hct 24.9 L MCH 25 L RDW 20.7 H Plt Count 491 H Seg Neuts % (Manual) 96.0 H Lymphocytes % (Manual) 1.0 L Seg Neutrophils # Man 25.3 H Lymphocytes # (Manual) 0.3 L Eosinophils # (Manual) 0.5 H POC ABG pO2 Sodium 135 L Carbon Dioxide BUN 37 H Creatinine Glucose 338 H POC Glucose Hemoglobin A1c Calcium 8.2 L Troponin T 0.192 H* NT-Pro-B Natriuret Pep 82664 H Albumin 2.9 L LDL Cholesterol Direct 43 L HDL Cholesterol 98 H Vancomycin Trough Crossmatch 03/05/19 03/05/19 03/05/19 03:29 05:47 07:10 WBC RBC Hgb Hct MCH RDW Plt Count Seg Neuts % (Manual) Lymphocytes % (Manual) Seg Neutrophils # Man Lymphocytes # (Manual) Eosinophils # (Manual) POC ABG pO2 109 H Sodium Carbon Dioxide BUN Creatinine Glucose POC Glucose Hemoglobin A1c 6.6 H Calcium Troponin T NT-Pro-B Natriuret Pep Albumin LDL Cholesterol Direct HDL Cholesterol Vancomycin Trough Crossmatch See Detail 03/05/19 03/05/19 03/05/19 08:44 12:35 16:29 WBC RBC Hgb Hct MCH RDW Plt Count Seg Neuts % (Manual) Lymphocytes % (Manual) Seg Neutrophils # Man Lymphocytes # (Manual) Eosinophils # (Manual) POC ABG pO2 Sodium Carbon Dioxide BUN Creatinine Glucose POC Glucose 295 H 292 H 243 H Hemoglobin A1c Calcium Troponin T NT-Pro-B Natriuret Pep Albumin LDL Cholesterol Direct HDL Cholesterol Vancomycin Trough Crossmatch 03/05/19 03/06/19 03/06/19 21:52 05:57 05:57 WBC 15.6 H RBC 3.45 L Hgb 9.0 L Hct 28.3 L MCH 26 L RDW 20.6 H Plt Count Seg Neuts % (Manual) 97.0 H Lymphocytes % (Manual) 3.0 L Seg Neutrophils # Man 15.1 H Lymphocytes # (Manual) 0.5 L Eosinophils # (Manual) POC ABG pO2 Sodium 134 L Carbon Dioxide 21 L BUN 38 H Creatinine Glucose 342 H POC Glucose 266 H Hemoglobin A1c Calcium 8.3 L Troponin T NT-Pro-B Natriuret Pep Albumin 2.9 L LDL Cholesterol Direct HDL Cholesterol Vancomycin Trough Crossmatch 03/06/19 03/06/19 03/06/19 08:37 10:28 14:59 WBC RBC Hgb Hct MCH RDW Plt Count Seg Neuts % (Manual) Lymphocytes % (Manual) Seg Neutrophils # Man Lymphocytes # (Manual) Eosinophils # (Manual) POC ABG pO2 Sodium Carbon Dioxide BUN Creatinine Glucose POC Glucose 386 H 403 H 212 H Hemoglobin A1c Calcium Troponin T NT-Pro-B Natriuret Pep Albumin LDL Cholesterol Direct HDL Cholesterol Vancomycin Trough Crossmatch 03/06/19 03/07/19 03/07/19 21:00 05:12 08:07 WBC 15.3 H RBC 3.12 L Hgb 8.2 L Hct 25.6 L MCH 26 L RDW 20.7 H Plt Count Seg Neuts % (Manual) Lymphocytes % (Manual) Seg Neutrophils # Man Lymphocytes # (Manual) Eosinophils # (Manual) POC ABG pO2 Sodium Carbon Dioxide BUN Creatinine Glucose POC Glucose 195 H 293 H Hemoglobin A1c Calcium Troponin T NT-Pro-B Natriuret Pep Albumin LDL Cholesterol Direct HDL Cholesterol Vancomycin Trough Crossmatch 03/07/19 03/07/19 03/07/19 12:02 17:02 21:12 WBC RBC Hgb Hct MCH RDW Plt Count Seg Neuts % (Manual) Lymphocytes % (Manual) Seg Neutrophils # Man Lymphocytes # (Manual) Eosinophils # (Manual) POC ABG pO2 Sodium Carbon Dioxide BUN Creatinine Glucose POC Glucose 330 H 282 H 317 H Hemoglobin A1c Calcium Troponin T NT-Pro-B Natriuret Pep Albumin LDL Cholesterol Direct HDL Cholesterol Vancomycin Trough Crossmatch 03/08/19 03/08/19 03/08/19 08:31 11:00 12:02 WBC RBC Hgb Hct MCH RDW Plt Count Seg Neuts % (Manual) Lymphocytes % (Manual) Seg Neutrophils # Man Lymphocytes # (Manual) Eosinophils # (Manual) POC ABG pO2 Sodium Carbon Dioxide BUN Creatinine Glucose POC Glucose 236 H 301 H Hemoglobin A1c Calcium Troponin T NT-Pro-B Natriuret Pep Albumin LDL Cholesterol Direct HDL Cholesterol Vancomycin Trough 21.9 H Crossmatch 03/08/19 03/08/19 03/08/19 16:07 17:07 22:45 WBC RBC Hgb Hct MCH RDW Plt Count Seg Neuts % (Manual) Lymphocytes % (Manual) Seg Neutrophils # Man Lymphocytes # (Manual) Eosinophils # (Manual) POC ABG pO2 Sodium 131 L Carbon Dioxide 20 L BUN 49 H Creatinine 1.3 H Glucose 289 H POC Glucose 296 H 192 H Hemoglobin A1c Calcium Troponin T NT-Pro-B Natriuret Pep Albumin LDL Cholesterol Direct HDL Cholesterol Vancomycin Trough Crossmatch 03/09/19 03/09/19 03/09/19 08:31 11:01 12:11 WBC RBC Hgb Hct MCH RDW Plt Count Seg Neuts % (Manual) Lymphocytes % (Manual) Seg Neutrophils # Man Lymphocytes # (Manual) Eosinophils # (Manual) POC ABG pO2 Sodium Carbon Dioxide BUN Creatinine Glucose POC Glucose 60 L 183 H 219 H Hemoglobin A1c Calcium Troponin T NT-Pro-B Natriuret Pep Albumin LDL Cholesterol Direct HDL Cholesterol Vancomycin Trough Crossmatch 03/09/19 03/09/19 03/10/19 16:15 21:08 04:53 WBC RBC Hgb Hct MCH RDW Plt Count Seg Neuts % (Manual) Lymphocytes % (Manual) Seg Neutrophils # Man Lymphocytes # (Manual) Eosinophils # (Manual) POC ABG pO2 Sodium 133 L Carbon Dioxide 19 L BUN 57 H Creatinine 1.4 H Glucose POC Glucose 202 H 115 H Hemoglobin A1c Calcium 8.1 L Troponin T NT-Pro-B Natriuret Pep Albumin LDL Cholesterol Direct HDL Cholesterol Vancomycin Trough Crossmatch 03/10/19 03/10/19 03/10/19 10:19 11:32 18:24 WBC RBC Hgb Hct MCH RDW Plt Count Seg Neuts % (Manual) Lymphocytes % (Manual) Seg Neutrophils # Man Lymphocytes # (Manual) Eosinophils # (Manual) POC ABG pO2 Sodium Carbon Dioxide BUN Creatinine Glucose POC Glucose 151 H 146 H 106 H Hemoglobin A1c Calcium Troponin T NT-Pro-B Natriuret Pep Albumin LDL Cholesterol Direct HDL Cholesterol Vancomycin Trough Crossmatch 03/11/19 03/11/19 04:34 11:14 WBC RBC Hgb Hct MCH RDW Plt Count Seg Neuts % (Manual) Lymphocytes % (Manual) Seg Neutrophils # Man Lymphocytes # (Manual) Eosinophils # (Manual) POC ABG pO2 Sodium 131 L Carbon Dioxide 20 L BUN 57 H Creatinine 1.7 H Glucose 189 H POC Glucose 158 H Hemoglobin A1c Calcium 7.7 L Troponin T NT-Pro-B Natriuret Pep Albumin LDL Cholesterol Direct HDL Cholesterol Vancomycin Trough Crossmatch
--- NOTE | 2019-03-11 15:06 | XRay Report ---
CHEST 1 VIEW INDICATION: Lung CA with left sided effusion. COMPARISON: 03/08/2019 FINDINGS: Support devices: None. Heart: Within normal limits. Lungs/Pleura: Diffuse opacification of the left lung has developed. The right lung remains clear. No pneumothorax. Additional findings: None. IMPRESSION: Diffuse opacification of the left hemithorax has developed consistent with large left pleural effusi on, left lung atelectasis or a combination of both. Signer Name: Kenny Wallis Jr, MD Signed: 03/11/2019 3:02 PM Workstation Name: [id number]
--- NOTE | 2019-03-11 16:52 | Progress Note ---
Assessment and Plan Assessment and plan: Acute on chronic resp failure patient was discharged home on 03/03/19 to [facility] on Oxygen at 2l/min NC Returned to ED following day 03/04 Anemia Transfuse 1 Unit PRBC because of more shortness of breath, CHF Lung cancer on left from pathology Left lung cavitating lung lesion and L pleural effusion: The patient also been treated for cavitary pneumonia Pleural fluid 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 Followed by Pulmonary. S/p CT-guided lung biopsy- path shows lung cancer Left pleural effusion Pulm following Acute hypoxic respiratory failure Possibly secondary to underlying pneumonia and malignancy, left pleural effusion and CHF exacerbation. She has been placed on BiPAP - now weaned off s/p thoracentesis on 02/19 drained 700cc fluid, 2-D echo showed EF of 30-35% Acute on chronic systolic CHF We will continue patient on routine home medications. Will monitor daily weight monitor input and output. 2-D echo showed EF of 30-35%, we'll continue Lasix Cardiology following. Stress test done 02/23 abnormal. Was scheduled for cardiac cath but canceled because of anemia NEELIMA, acute on CKD. Consult Nephrology Physical debility, PT recommended acute rehab DVT prophylaxis: Heparin Full code status To follow up with Dr. Franco in 1 week for recently diagnosed lung cancer,last week. History Interval history: No new issues. Hospitalist Physical - Constitutional Vitals: Temp Pulse Resp BP Pulse Ox 98.4 F 86 18 130/54 99 03/11/19 16:24 03/11/19 16:24 03/11/19 16:24 03/11/19 16:24 03/11/19 09:57 General appearance: Present: no acute distress - EENT Eyes: Present: PERRL, EOM intact ENT: hearing intact, clear oral mucosa, dentition normal - Neck Neck: Present: supple, normal ROM - Respiratory Respiratory effort: normal Respiratory: bilateral: CTA - Cardiovascular Rhythm: regular Heart Sounds: Present: S1 & S2. Absent: gallop, rub - Extremities Extremities: no ischemia, No edema, Full ROM - Abdominal General gastrointestinal: soft, non-tender, non-distended, normal bowel sounds - Integumentary Integumentary: Present: clear, warm, dry - Neurologic Neurologic: CNII-XII intact, moves all extremities Results - Labs CBC & Chem 7: 03/07/19 05:12 03/11/19 04:34 Labs: Laboratory Last Values WBC 15.3 K/mm3 (4.5-11.0) H 03/07/19 05:12 RBC 3.12 M/mm3 (3.65-5.03) L 03/07/19 05:12 Hgb 8.2 gm/dl (10.1-14.3) L 03/07/19 05:12 Hct 25.6 % (30.3-42.9) L 03/07/19 05:12 MCV 82 fl (79-97) 03/07/19 05:12 MCH 26 pg (28-32) L 03/07/19 05:12 MCHC 32 % (30-34) 03/07/19 05:12 RDW 20.7 % (13.2-15.2) H 03/07/19 05:12 Plt Count 395 K/mm3 (140-440) 03/07/19 05:12 Add Manual Diff Complete 03/06/19 05:57 Total Counted 100 03/06/19 05:57 Seg Neutrophils % Bleacher Lard 03/06/19 05:57 Seg Neuts % (Manual) 97.0 % (40.0-70.0) H 03/06/19 05:57 Band Neutrophils % 0 % 03/06/19 05:57 Lymphocytes % (Manual) 3.0 % (13.4-35.0) L 03/06/19 05:57 Reactive Lymphs % (Man) 0 % 03/06/19 05:57 Monocytes % (Manual) 0 % (0.0-7.3) 03/06/19 05:57 Eosinophils % (Manual) 0 % (0.0-4.3) 03/06/19 05:57 Basophils % (Manual) 0 % (0.0-1.8) 03/06/19 05:57 Metamyelocytes % 0 % 03/06/19 05:57 Myelocytes % 0 % 03/06/19 05:57 Promyelocytes % 0 % 03/06/19 05:57 Blast Cells % 0 % 03/06/19 05:57 Nucleated RBC % Not Reportable 03/06/19 05:57 Seg Neutrophils # Man 15.1 K/mm3 (1.8-7.7) H 03/06/19 05:57 Band Neutrophils # 0.0 K/mm3 03/06/19 05:57 Lymphocytes # (Manual) 0.5 K/mm3 (1.2-5.4) L 03/06/19 05:57 Abs React Lymphs (Man) 0.0 K/mm3 03/06/19 05:57 Monocytes # (Manual) 0.0 K/mm3 (0.0-0.8) 03/06/19 05:57 Eosinophils # (Manual) 0.0 K/mm3 (0.0-0.4) 03/06/19 05:57 Basophils # (Manual) 0.0 K/mm3 (0.0-0.1) 03/06/19 05:57 Metamyelocytes # 0.0 K/mm3 03/06/19 05:57 Myelocytes # 0.0 K/mm3 03/06/19 05:57 Promyelocytes # 0.0 K/mm3 03/06/19 05:57 Blast Cells # 0.0 K/mm3 03/06/19 05:57 WBC Morphology Not Reportable 03/06/19 05:57 Hypersegmented Neuts Not Reportable 03/06/19 05:57 Hyposegmented Neuts Not Reportable 03/06/19 05:57 Hypogranular Neuts Not Reportable 03/06/19 05:57 Smudge Cells Not Reportable 03/06/19 05:57 Toxic Granulation Not Reportable 03/06/19 05:57 Toxic Vacuolation Not Reportable 03/06/19 05:57 Dohle Bodies Not Reportable 03/06/19 05:57 Pelger-Huet Anomaly Not Reportable 03/06/19 05:57 Jessica Rods Not Reportable 03/06/19 05:57 Platelet Estimate Cons 03/06/19 05:57 Clumped Platelets Not Reportable 03/06/19 05:57 Plt Clumps, EDTA Not Reportable 03/06/19 05:57 Large Platelets Few 03/06/19 05:57 Giant Platelets Not Reportable 03/06/19 05:57 Platelet Satelliting Not Reportable 03/06/19 05:57 Plt Morphology Comment Not Reportable 03/06/19 05:57 RBC Morphology Not Reportable 03/06/19 05:57 Dimorphic RBCs Not Reportable 03/06/19 05:57 Polychromasia Not Reportable 03/06/19 05:57 Hypochromasia 1+ 03/06/19 05:57 Poikilocytosis Not Reportable 03/06/19 05:57 Anisocytosis Not Reportable 03/06/19 05:57 Microcytosis Not Reportable 03/06/19 05:57 Macrocytosis Not Reportable 03/06/19 05:57 Spherocytes Few 03/06/19 05:57 Pappenheimer Bodies Not Reportable 03/06/19 05:57 Sickle Cells Not Reportable 03/06/19 05:57 Target Cells 1+ 03/06/19 05:57 Tear Drop Cells Not Reportable 03/06/19 05:57 Ovalocytes Not Reportable 03/06/19 05:57 Helmet Cells Not Reportable 03/06/19 05:57 Ling-Freeland Bodies Not Reportable 03/06/19 05:57 Mobile Rings Not Reportable 03/06/19 05:57 Lora Cells Not Reportable 03/06/19 05:57 Bite Cells Not Reportable 03/06/19 05:57 Crenated Cell Not Reportable 03/06/19 05:57 Elliptocytes Not Reportable 03/06/19 05:57 Acanthocytes (Spur) Not Reportable 03/06/19 05:57 Rouleaux Not Reportable 03/06/19 05:57 Hemoglobin C Crystals Not Reportable 03/06/19 05:57 Schistocytes Not Reportable 03/06/19 05:57 Malaria parasites Not Reportable 03/06/19 05:57 Galen Bodies Not Reportable 03/06/19 05:57 Hem Pathologist Commnt No 03/06/19 05:57 PT 12.8 Sec. (12.2-14.9) 03/08/19 09:33 INR 0.97 (0.87-1.13) 03/08/19 09:33 POC ABG pH 7.375 (7.35-7.45) 03/05/19 03:29 POC ABG pCO2 42.4 (35-45) 03/05/19 03:29 POC ABG pO2 109 (80-105) H 03/05/19 03:29 POC ABG HCO3 24.7 (22-26 mml/L) 03/05/19 03:29 POC ABG Total CO2 26 (23-27mmol/L) 03/05/19 03:29 POC ABG O2 Sat 98 03/05/19 03:29 POC ABG Base Excess 0 ((-2) - (+3)mmol/L) 03/05/19 03:29 FiO2 40 % 03/05/19 03:29 Sodium 131 mmol/L (137-145) L 03/11/19 04:34 Potassium 4.2 mmol/L (3.6-5.0) 03/11/19 04:34 Chloride 99.1 mmol/L (98-107) 03/11/19 04:34 Carbon Dioxide 20 mmol/L (22-30) L 03/11/19 04:34 Anion Gap 16 mmol/L 03/11/19 04:34 BUN 57 mg/dL (7-17) H 03/11/19 04:34 Creatinine 1.7 mg/dL (0.7-1.2) H 03/11/19 04:34 Estimated GFR 35 ml/min 03/11/19 04:34 BUN/Creatinine Ratio 34 % 03/11/19 04:34 Glucose 189 mg/dL (65-100) H 03/11/19 04:34 POC Glucose 158 (70-105) H 03/11/19 11:14 Hemoglobin A1c 6.6 % (4-6) H 03/05/19 05:47 Lactic Acid 1.20 mmol/L (0.7-2.0) 03/05/19 05:47 Calcium 7.7 mg/dL (8.4-10.2) L 03/11/19 04:34 Magnesium 2.00 mg/dL (1.7-2.3) 03/08/19 17:07 Total Bilirubin 0.20 mg/dL (0.1-1.2) 03/06/19 05:57 AST 20 units/L (5-40) 03/06/19 05:57 ALT 22 units/L (7-56) 03/06/19 05:57 Alkaline Phosphatase 80 units/L (35-129) 03/06/19 05:57 Troponin T 0.192 ng/mL (0.00-0.029) H* 03/04/19 23:02 NT-Pro-B Natriuret Pep 22431 pg/mL (0-900) H 03/04/19 23:02 Total Protein 6.7 g/dL (6.3-8.2) 03/06/19 05:57 Albumin 2.9 g/dL (3.9-5) L 03/06/19 05:57 Albumin/Globulin Ratio 0.8 % 03/06/19 05:57 Triglycerides 96 mg/dL (2-149) 03/04/19 23:02 Cholesterol 155 mg/dL (50-199) 03/04/19 23:02 LDL Cholesterol Direct 43 mg/dL (50-130) L 03/04/19 23:02 HDL Cholesterol 98 mg/dL (40-59) H 03/04/19 23:02 Cholesterol/HDL Ratio 1.58 % 03/04/19 23:02 Vancomycin Trough 21.9 ug/mL (5.0-20.0) H 03/08/19 11:00 Blood Type O POSITIVE 03/05/19 07:10 Antibody Screen Negative 03/05/19 07:10 Crossmatch See Detail 03/05/19 07:10 Active Medications - Current Medications Current Medications: Generic Name Dose Route Start Last Admin Trade Name Freq PRN Reason Stop Dose Admin Acetaminophen 650 mg 03/05/19 03:59 03/09/19 23:05 Tylenol PO 650 mg Q4H PRN Administration Pain MILD(1-3)/Fever >100.5/BRENNER Albuterol 2.5 mg 03/05/19 04:20 03/08/19 01:15 Proventil IH 2.5 mg Q3HRT PRN Administration Shortness Of Breath Albuterol/Ipratropium 1 ampul 03/05/19 14:00 03/11/19 14:02 Duoneb *Not For Prn Use* IH Not Given TIDRT MAYLIN Allopurinol 100 mg 03/05/19 10:00 03/11/19 10:00 Zyloprim PO 100 mg DAILY MAYLIN Administration Aspirin 325 mg 03/05/19 10:00 03/11/19 10:00 Ecotrin PO 325 mg QDAY MAYLIN Administration Atorvastatin Calcium 40 mg 03/05/19 22:00 03/10/19 23:25 Lipitor PO 40 mg QHS MAYLIN Administration Cilostazol 50 mg 03/05/19 10:00 03/11/19 09:59 Pletal PO 50 mg BID MAYLIN Administration Ferrous Sulfate 325 mg 03/05/19 10:00 03/11/19 09:59 Feosol PO 325 mg DAILY MAYLIN Administration Folic Acid 1 mg 03/05/19 10:00 03/11/19 10:00 Folvite PO 1 mg QDAY MAYLIN Administration Furosemide 40 mg 03/09/19 18:00 03/11/19 10:00 Lasix IV 40 mg QDAY MAYLIN Administration Heparin Sodium (Porcine) 5,000 unit 03/05/19 10:00 03/11/19 10:01 Heparin SUB-Q 5,000 unit Q12HR MAYLIN Administration Hydralazine HCl 10 mg 03/05/19 12:10 03/08/19 01:58 Apresoline IV 10 mg Q4HR PRN Administration SBP>170 or DBP>110 Hydralazine HCl 50 mg 03/06/19 14:00 03/11/19 13:36 Apresoline PO 50 mg Q8HR MAYLIN Administration Hydromorphone HCl 0.5 mg 03/05/19 03:59 Dilaudid IV Q3H PRN Pain , Severe (7-10) Insulin Human Isoph/Insulin Regular 10 unit 03/06/19 09:30 03/11/19 09:12 Humulin 70/30 SUB-Q 10 unit BIDDIAB MAYLIN Administration Insulin Human Lispro 0 unit 03/05/19 07:30 03/11/19 12:45 Humalog SUB-Q 2 unit ACHS MAYLIN Administration Protocol Isosorbide Mononitrate 120 mg 03/05/19 10:00 03/11/19 10:00 Imdur PO 120 mg QDAY MAYLIN Administration Metoclopramide HCl 10 mg 03/05/19 03:59 Reglan IV Q6H PRN Nausea And Vomiting Metoprolol Tartrate 50 mg 03/05/19 08:00 03/11/19 08:00 Metoprolol PO 50 mg BID@0800,1700 MAYLIN Administration Nitroglycerin 0.4 mg 03/07/19 22:30 03/10/19 20:50 Nitrostat SL 0.4 mg .Q5MIN PRN Administration Chest Pain Ondansetron HCl 4 mg 03/05/19 03:59 Zofran IV Q3H PRN Nausea And Vomiting Oxycodone/Acetaminophen 1 tab 03/05/19 03:59 03/10/19 18:09 Percocet 5/325 PO 1 tab Q6H PRN Administration Pain, Moderate (4-6) Pantoprazole Sodium 40 mg 03/05/19 10:00 03/11/19 10:00 Protonix PO 40 mg QDAY MAYLIN Administration Sodium Chloride 10 ml 03/05/19 10:00 03/11/19 10:01 Sodium Chloride Flush Syringe 10 Ml IV 10 ml BID MAYLIN Administration Sodium Chloride 10 ml 03/05/19 03:59 Sodium Chloride Flush Syringe 10 Ml IV PRN PRN LINE FLUSH
[2019-03-12] MEDS: oxyCODONE /ACETAMINOPHEN 5-325MG TAB PO PRN ×2 (00:16→10:32)
[2019-03-12] MEDS: hydrALAZINE 25 MG TAB PO SCH ×3 (05:51→22:31)
[2019-03-12 07:03] LABS: Basophils # (Auto) 0.1 K/mm3 (0.0-0.1); Basophils % (Auto) 0.6 % (0.0-1.8); Eosinophils # (Auto) 0.4 K/mm3 (0.0-0.4); Eosinophils % (Auto) 2.7 % (0.0-4.3); Hematocrit 26.6 % (30.3-42.9); Hemoglobin 8.6 gm/dl (10.1-14.3); Lymphocytes # (Auto) 0.9 K/mm3 (1.2-5.4); Lymphocytes % (Auto) 5.4 % (13.4-35.0); Mean Corpuscular HGB Conc 33 % (30-34); Mean Corpuscular Volume 82 fl (79-97); Monocytes # (Auto) 1.2 K/mm3 (0.0-0.8); Monocytes % (Auto) 7.4 % (0.0-7.3); Platelet Count 314 K/mm3 (140-440); Red Blood Count 3.24 M/mm3 (3.65-5.03)
[2019-03-12 07:23] LABS: Calcium 7.9 mg/dL (8.4-10.2)
[2019-03-12 07:37] LABS: Red Cell Distribution Width 20.8 % (13.2-15.2)
[2019-03-12] MEDS: METOPROLOL TARTRATE 50 MG TAB PO SCH ×2 (08:00→17:42)
[2019-03-12] MEDS: IPRATROPIUM/ALBUTEROL SULFATE 3 ML AMPUL.NEB IH SCH ×3 (08:11→20:22)
--- NOTE | 2019-03-12 08:27 | Hem/Onc Progress Note ---
Assessment and Plan 1. Squamous cell cancer of lung. 2. Left upper lobe mass. 3. The patient is short of breath. The plan was to see her in outpatient setting to see if any oral agent can be used. 4. History of pleural effusion, history of coronary artery disease, history of cardiomyopathy, history of hypertension. 5. Anemia. 6. Thrombocytosis. 7. Low folate. 8. History of hemoptysis. 9. The plan was to do a PET/CT as an outpatient. CT abdo pelvis - no mets CT head a few weeks ago - no mets pt is on o2 - guarded prognosis - as limited options - d/w daughter - for oral or iv chemo - pt needs to come to office XRT eval - d/w dr Torres -I had spoken to him - Patient Problems (1) Lung cancer Current Visit: Yes Status: Suspected Subjective Date of service: 03/12/19 Principal diagnosis: sq cell ca lung Interval history: on o2 no pain Objective - Exam Narrative Exam: Pain - none General appearance - alert Performance status complete dependence Eyes - no icterus ENT - no bleeding LNs cervical not palpable Neck - no LN Respiratory Normal - on o2 Breath sounds - CTA anteriorly CVS S1 S2 + Extremities no edema General GI Soft Rectal deferred female - deferred Skin warm Musculoskeletal - moving limbs Neurologically alert awake - Constitutional Vitals: Last Vital Signs Temp 98.7 F 03/12/19 07:33 Pulse 102 H 03/12/19 07:33 Resp 22 03/12/19 07:33 BP 154/57 03/12/19 07:33 Pulse Ox 96 03/12/19 07:33 - Labs Lab Results: Laboratory Results - last 24 hr 03/11/19 03/11/19 03/11/19 11:14 16:29 20:48 WBC RBC Hgb Hct MCV MCH MCHC RDW Plt Count Lymph % (Auto) [place] % (Auto) Eos % (Auto) Baso % (Auto) Lymph # Sanders # Eos # Baso # Seg Neutrophils % Seg Neutrophils # Sodium Potassium Chloride Carbon Dioxide Anion Gap BUN Creatinine Estimated GFR BUN/Creatinine Ratio Glucose POC Glucose 158 H 119 H 258 H Calcium 03/12/19 03/12/19 05:41 05:41 WBC 16.1 H RBC 3.24 L Hgb 8.6 L Hct 26.6 L MCV 82 MCH 27 L MCHC 33 RDW 20.8 H Plt Count 314 Lymph % (Auto) 5.4 L [place] % (Auto) 7.4 H Eos % (Auto) 2.7 Baso % (Auto) 0.6 Lymph # 0.9 L Sanders # 1.2 H Eos # 0.4 Baso # 0.1 Seg Neutrophils % 83.9 H Seg Neutrophils # 13.5 H Sodium 131 L Potassium 4.3 Chloride 94.2 L Carbon Dioxide 17 L Anion Gap 24 BUN 58 H Creatinine 1.7 H Estimated GFR 35 BUN/Creatinine Ratio 34 Glucose 146 H POC Glucose Calcium 7.9 L Medications & Allergies - Medications Allergies/Adverse Reactions: Allergies ibuprofen Allergy (Verified 02/18/19 23:29) Unknown Penicillins Allergy (Verified 02/18/19 23:29) Unknown Home Medications: Home Medications Medication Instructions Recorded Confirmed Last Taken Type Allopurinol 100 mg PO DAILY 12/26/18 03/05/19 03/04/19 History Cilostazol 50 mg PO BID 12/26/18 03/05/19 03/04/19 History Ferrous Sulfate 325 mg PO DAILY 12/26/18 03/05/19 03/04/19 History Ipratropium (Nf) [Atrovent HFA 2 puff IH Q6HR PRN #1 inha 01/11/19 03/05/19 Unknown Rx 17MCG/PUFF] AtorvaSTATin [Lipitor] 40 mg PO QHS 02/09/19 03/05/19 03/04/19 History Pantoprazole [Protonix TAB] 40 mg PO QDAY #30 tablet 02/16/19 03/05/19 Unknown Rx hydrALAZINE [Apresoline TAB] 25 mg PO Q8HR #90 tablet 02/16/19 03/05/19 03/04/19 Rx Furosemide [Lasix TAB] 20 mg PO QDAY tablet 03/01/19 03/05/19 03/04/19 Rx ISOSORBIDE MONOnitrate [Imdur ER] 120 mg PO QDAY tablet 03/01/19 03/05/19 03/04/19 Rx Metoprolol [Lopressor TAB] 50 mg PO BID tablet 03/01/19 03/05/19 Unknown Rx Aspirin EC 325 mg PO QDAY #30 tablet 03/03/19 03/05/19 03/04/19 Rx Folic Acid [Folvite] 1 mg PO QDAY #30 tablet 03/03/19 03/05/19 03/04/19 Rx Insulin NPH/Regular [NovoLIN 70/30] 8 unit SUB-Q ACHS 03/05/19 03/05/19 Unknown History Active Medications: Generic Name Dose Route Start Last Admin Trade Name Freq PRN Reason Stop Dose Admin Acetaminophen 650 mg 03/05/19 03:59 03/09/19 23:05 Tylenol PO 650 mg Q4H PRN Administration Pain MILD(1-3)/Fever >100.5/BRENNER Albuterol 2.5 mg 03/05/19 04:20 03/08/19 01:15 Proventil IH 2.5 mg Q3HRT PRN Administration Shortness Of Breath Albuterol/Ipratropium 1 ampul 03/05/19 14:00 03/12/19 08:11 Duoneb *Not For Prn Use* IH 1 ampul TIDRT MAYLIN Administration Allopurinol 100 mg 03/05/19 10:00 03/11/19 10:00 Zyloprim PO 100 mg DAILY MAYLIN Administration Aspirin 325 mg 03/05/19 10:00 03/11/19 10:00 Ecotrin PO 325 mg QDAY MAYLIN Administration Atorvastatin Calcium 40 mg 03/05/19 22:00 03/11/19 22:44 Lipitor PO 40 mg QHS MAYLIN Administration Cilostazol 50 mg 03/05/19 10:00 03/11/19 22:43 Pletal PO 50 mg BID MAYLIN Administration Ferrous Sulfate 325 mg 03/05/19 10:00 03/11/19 09:59 Feosol PO 325 mg DAILY MAYLIN Administration Folic Acid 1 mg 03/05/19 10:00 03/11/19 10:00 Folvite PO 1 mg QDAY MAYLIN Administration Furosemide 40 mg 03/09/19 18:00 03/11/19 10:00 Lasix IV 40 mg QDAY MAYLIN Administration Heparin Sodium (Porcine) 5,000 unit 03/05/19 10:00 03/11/19 22:44 Heparin SUB-Q 5,000 unit Q12HR MAYLIN Administration Hydralazine HCl 10 mg 03/05/19 12:10 03/08/19 01:58 Apresoline IV 10 mg Q4HR PRN Administration SBP>170 or DBP>110 Hydralazine HCl 50 mg 03/06/19 14:00 03/12/19 05:51 Apresoline PO 50 mg Q8HR MAYLIN Administration Hydromorphone HCl 0.5 mg 03/05/19 03:59 Dilaudid IV Q3H PRN Pain , Severe (7-10) Insulin Human Isoph/Insulin Regular 10 unit 03/06/19 09:30 03/11/19 17:42 Humulin 70/30 SUB-Q Not Given BIDDIAB MAYLIN Insulin Human Lispro 0 unit 03/05/19 07:30 03/11/19 23:03 Humalog SUB-Q 4 unit ACHS MAYLIN Administration Protocol Isosorbide Mononitrate 120 mg 03/05/19 10:00 03/11/19 10:00 Imdur PO 120 mg QDAY MAYLIN Administration Metoclopramide HCl 10 mg 03/05/19 03:59 Reglan IV Q6H PRN Nausea And Vomiting Metoprolol Tartrate 50 mg 03/05/19 08:00 03/11/19 18:07 Metoprolol PO 50 mg BID@0800,1700 MAYLIN Administration Nitroglycerin 0.4 mg 03/07/19 22:30 03/10/19 20:50 Nitrostat SL 0.4 mg .Q5MIN PRN Administration Chest Pain Ondansetron HCl 4 mg 03/05/19 03:59 Zofran IV Q3H PRN Nausea And Vomiting Oxycodone/Acetaminophen 1 tab 03/05/19 03:59 03/12/19 00:16 Percocet 5/325 PO 1 tab Q6H PRN Administration Pain, Moderate (4-6) Pantoprazole Sodium 40 mg 03/05/19 10:00 03/11/19 10:00 Protonix PO 40 mg QDAY MALYIN Administration Sodium Chloride 10 ml 03/05/19 10:00 03/11/19 22:45 Sodium Chloride Flush Syringe 10 Ml IV 10 ml BID MAYLIN Administration Sodium Chloride 10 ml 03/05/19 03:59 Sodium Chloride Flush Syringe 10 Ml IV PRN PRN LINE FLUSH
[2019-03-12] MEDS: INSULIN LISPRO 100 UNIT/ML SUB-Q SCH ×4 (08:55→22:43)
[2019-03-12] MEDS: INSULIN NPH/REGULAR 70/30 INJ SUB-Q SCH ×2 (08:55→17:44)
[2019-03-12] MEDS: ASPIRIN EC 325 MG TAB PO SCH (09:37)
[2019-03-12] MEDS: FERROUS SULFATE 325 MG TAB PO SCH (09:37)
[2019-03-12] MEDS: PANTOPRAZOLE 40 MG TAB PO SCH (09:37)
[2019-03-12] MEDS: CILOSTAZOL 100 MG TAB PO SCH ×2 (09:38→22:29)
[2019-03-12] MEDS: allopurinoL 100 MG TAB PO SCH (09:38)
[2019-03-12] MEDS: HEPARIN 5,000 UNIT/1 ML VIAL SUB-Q SCH ×2 (09:39→22:31)
[2019-03-12] MEDS: FUROSEMIDE 40 MG/4 ML INJ IV SCH (09:39)
[2019-03-12] MEDS: FOLIC ACID 1 MG TAB PO SCH (09:39)
[2019-03-12] MEDS ORDERED: diphenhydrAMINE 50 MG/ML VIAL IV PRN (11:53)
--- NOTE | 2019-03-12 11:53 | Progress Note ---
Assessment and Plan Assessment and plan: Acute hypoxic respiratory failure Possibly secondary to underlying pneumonia and malignancy, left pleural effusion and CHF exacerbation. She has been placed on BiPAP - now weaned off s/p thoracentesis on 02/19 drained 700cc fluid, 2-D echo showed EF of 30-35% Anemia Transfuse 1 Unit PRBC because of more shortness of breath, CHF Lung cancer on left from pathology Left lung cavitating lung lesion and L pleural effusion: The patient also been treated for cavitary pneumonia Pleural fluid 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 Followed by Pulmonary. S/p CT-guided lung biopsy- path shows lung cancer Left pleural effusion Pulm following Acute on chronic systolic CHF We will continue patient on routine home medications. Will monitor daily weight monitor input and output. 2-D echo showed EF of 30-35%, we'll continue Lasix Cardiology following. Stress test done 02/23 abnormal. Was scheduled for cardiac cath but canceled because of anemia NEELIMA, acute on CKD. Consulted Nephrology Physical debility, PT recommended acute rehab DVT prophylaxis: Heparin Full code status To follow up with Dr. Franco in 1 week for recently diagnosed lung cancer,last w [facility]. History Interval history: No new issues. Patient complains of pruritus. Hospitalist Physical - Constitutional Vitals: Temp Pulse Resp BP Pulse Ox 98.7 F 101 H 22 139/89 96 03/12/19 07:33 03/12/19 09:38 03/12/19 07:33 03/12/19 09:38 03/12/19 07:33 General appearance: Present: no acute distress - EENT Eyes: Present: PERRL, EOM intact ENT: hearing intact, clear oral mucosa, dentition normal - Neck Neck: Present: supple, normal ROM - Respiratory Respiratory effort: normal Respiratory: bilateral: CTA - Cardiovascular Rhythm: regular Heart Sounds: Present: S1 & S2. Absent: gallop, rub - Extremities Extremities: no ischemia, No edema, Full ROM - Abdominal General gastrointestinal: soft, non-tender, non-distended, normal bowel sounds - Integumentary Integumentary: Present: clear, warm, dry - Neurologic Neurologic: CNII-XII intact, moves all extremities Results - Labs CBC & Chem 7: 03/12/19 05:41 03/12/19 05:41 Labs: Laboratory Last Values WBC 16.1 K/mm3 (4.5-11.0) H 03/12/19 05:41 RBC 3.24 M/mm3 (3.65-5.03) L 03/12/19 05:41 Hgb 8.6 gm/dl (10.1-14.3) L 03/12/19 05:41 Hct 26.6 % (30.3-42.9) L 03/12/19 05:41 MCV 82 fl (79-97) 03/12/19 05:41 MCH 27 pg (28-32) L 03/12/19 05:41 MCHC 33 % (30-34) 03/12/19 05:41 RDW 20.8 % (13.2-15.2) H 03/12/19 05:41 Plt Count 314 K/mm3 (140-440) 03/12/19 05:41 Lymph % (Auto) 5.4 % (13.4-35.0) L 03/12/19 05:41 [place] % (Auto) 7.4 % (0.0-7.3) H 03/12/19 05:41 Eos % (Auto) 2.7 % (0.0-4.3) 03/12/19 05:41 Baso % (Auto) 0.6 % (0.0-1.8) 03/12/19 05:41 Lymph # 0.9 K/mm3 (1.2-5.4) L 03/12/19 05:41 [place] # 1.2 K/mm3 (0.0-0.8) H 03/12/19 05:41 Eos # 0.4 K/mm3 (0.0-0.4) 03/12/19 05:41 Baso # 0.1 K/mm3 (0.0-0.1) 03/12/19 05:41 Add Manual Diff Complete 03/06/19 05:57 Total Counted 100 03/06/19 05:57 Seg Neutrophils % 83.9 % (40.0-70.0) H 03/12/19 05:41 Seg Neuts % (Manual) 97.0 % (40.0-70.0) H 03/06/19 05:57 Band Neutrophils % 0 % 03/06/19 05:57 Lymphocytes % (Manual) 3.0 % (13.4-35.0) L 03/06/19 05:57 Reactive Lymphs % (Man) 0 % 03/06/19 05:57 Monocytes % (Manual) 0 % (0.0-7.3) 03/06/19 05:57 Eosinophils % (Manual) 0 % (0.0-4.3) 03/06/19 05:57 Basophils % (Manual) 0 % (0.0-1.8) 03/06/19 05:57 Metamyelocytes % 0 % 03/06/19 05:57 Myelocytes % 0 % 03/06/19 05:57 Promyelocytes % 0 % 03/06/19 05:57 Blast Cells % 0 % 03/06/19 05:57 Nucleated RBC % Not Reportable 03/06/19 05:57 Seg Neutrophils # 13.5 K/mm3 (1.8-7.7) H 03/12/19 05:41 Seg Neutrophils # Man 15.1 K/mm3 (1.8-7.7) H 03/06/19 05:57 Band Neutrophils # 0.0 K/mm3 03/06/19 05:57 Lymphocytes # (Manual) 0.5 K/mm3 (1.2-5.4) L 03/06/19 05:57 Abs React Lymphs (Man) 0.0 K/mm3 03/06/19 05:57 Monocytes # (Manual) 0.0 K/mm3 (0.0-0.8) 03/06/19 05:57 Eosinophils # (Manual) 0.0 K/mm3 (0.0-0.4) 03/06/19 05:57 Basophils # (Manual) 0.0 K/mm3 (0.0-0.1) 03/06/19 05:57 Metamyelocytes # 0.0 K/mm3 03/06/19 05:57 Myelocytes # 0.0 K/mm3 03/06/19 05:57 Promyelocytes # 0.0 K/mm3 03/06/19 05:57 Blast Cells # 0.0 K/mm3 03/06/19 05:57 WBC Morphology Not Reportable 03/06/19 05:57 Hypersegmented Neuts Not Reportable 03/06/19 05:57 Hyposegmented Neuts Not Reportable 03/06/19 05:57 Hypogranular Neuts Not Reportable 03/06/19 05:57 Smudge Cells Not Reportable 03/06/19 05:57 Toxic Granulation Not Reportable 03/06/19 05:57 Toxic Vacuolation Not Reportable 03/06/19 05:57 Dohle Bodies Not Reportable 03/06/19 05:57 Pelger-Huet Anomaly Not Reportable 03/06/19 05:57 Jessica Rods Not Reportable 03/06/19 05:57 Platelet Estimate Cons 03/06/19 05:57 Clumped Platelets Not Reportable 03/06/19 05:57 Plt Clumps, EDTA Not Reportable 03/06/19 05:57 Large Platelets Few 03/06/19 05:57 Giant Platelets Not Reportable 03/06/19 05:57 Platelet Satelliting Not Reportable 03/06/19 05:57 Plt Morphology Comment Not Reportable 03/06/19 05:57 RBC Morphology Not Reportable 03/06/19 05:57 Dimorphic RBCs Not Reportable 03/06/19 05:57 Polychromasia Not Reportable 03/06/19 05:57 Hypochromasia 1+ 03/06/19 05:57 Poikilocytosis Not Reportable 03/06/19 05:57 Anisocytosis Not Reportable 03/06/19 05:57 Microcytosis Not Reportable 03/06/19 05:57 Macrocytosis Not Reportable 03/06/19 05:57 Spherocytes Few 03/06/19 05:57 Pappenheimer Bodies Not Reportable 03/06/19 05:57 Sickle Cells Not Reportable 03/06/19 05:57 Target Cells 1+ 03/06/19 05:57 Tear Drop Cells Not Reportable 03/06/19 05:57 Ovalocytes Not Reportable 03/06/19 05:57 Helmet Cells Not Reportable 03/06/19 05:57 [place] Bodies Not Reportable 03/06/19 05:57 [place] Rings Not Reportable 03/06/19 05:57 [place] Cells Not Reportable 03/06/19 05:57 Bite Cells Not Reportable 03/06/19 05:57 Crenated Cell Not Reportable 03/06/19 05:57 Elliptocytes Not Reportable 03/06/19 05:57 Acanthocytes (Spur) Not Reportable 03/06/19 05:57 Rouleaux Not Reportable 03/06/19 05:57 Hemoglobin C Crystals Not Reportable 03/06/19 05:57 Schistocytes Not Reportable 03/06/19 05:57 Malaria parasites Not Reportable 03/06/19 05:57 [place] Bodies Not Reportable 03/06/19 05:57 Hem Pathologist Commnt No 03/06/19 05:57 PT 12.8 Sec. (12.2-14.9) 03/08/19 09:33 INR 0.97 (0.87-1.13) 03/08/19 09:33 POC ABG pH 7.375 (7.35-7.45) 03/05/19 03:29 POC ABG pCO2 42.4 (35-45) 03/05/19 03:29 POC ABG pO2 109 (80-105) H 03/05/19 03:29 POC ABG HCO3 24.7 (22-26 mml/L) 03/05/19 03:29 POC ABG Total CO2 26 (23-27mmol/L) 03/05/19 03:29 POC ABG O2 Sat 98 03/05/19 03:29 POC ABG Base Excess 0 ((-2) - (+3)mmol/L) 03/05/19 03:29 FiO2 40 % 03/05/19 03:29 Sodium 131 mmol/L (137-145) L 03/12/19 05:41 Potassium 4.3 mmol/L (3.6-5.0) 03/12/19 05:41 Chloride 94.2 mmol/L (98-107) L 03/12/19 05:41 Carbon Dioxide 17 mmol/L (22-30) L 03/12/19 05:41 Anion Gap 24 mmol/L 03/12/19 05:41 BUN 58 mg/dL (7-17) H 03/12/19 05:41 Creatinine 1.7 mg/dL (0.7-1.2) H 03/12/19 05:41 Estimated GFR 35 ml/min 03/12/19 05:41 BUN/Creatinine Ratio 34 % 03/12/19 05:41 Glucose 146 mg/dL (65-100) H 03/12/19 05:41 POC Glucose 135 (70-105) H 03/12/19 09:01 Hemoglobin A1c 6.6 % (4-6) H 03/05/19 05:47 Lactic Acid 1.20 mmol/L (0.7-2.0) 03/05/19 05:47 Calcium 7.9 mg/dL (8.4-10.2) L 03/12/19 05:41 Magnesium 2.00 mg/dL (1.7-2.3) 03/08/19 17:07 Total Bilirubin 0.20 mg/dL (0.1-1.2) 03/06/19 05:57 AST 20 units/L (5-40) 03/06/19 05:57 ALT 22 units/L (7-56) 03/06/19 05:57 Alkaline Phosphatase 80 units/L (35-129) 03/06/19 05:57 Troponin T 0.192 ng/mL (0.00-0.029) H* 03/04/19 23:02 NT-Pro-B Natriuret Pep 18300 pg/mL (0-900) H 03/04/19 23:02 Total Protein 6.7 g/dL (6.3-8.2) 03/06/19 05:57 Albumin 2.9 g/dL (3.9-5) L 03/06/19 05:57 Albumin/Globulin Ratio 0.8 % 03/06/19 05:57 Triglycerides 96 mg/dL (2-149) 03/04/19 23:02 Cholesterol 155 mg/dL (50-199) 03/04/19 23:02 LDL Cholesterol Direct 43 mg/dL (50-130) L 03/04/19 23:02 HDL Cholesterol 98 mg/dL (40-59) H 03/04/19 23:02 Cholesterol/HDL Ratio 1.58 % 03/04/19 23:02 Vancomycin Trough 21.9 ug/mL (5.0-20.0) H 03/08/19 11:00 Blood Type O POSITIVE 03/05/19 07:10 Antibody Screen Negative 03/05/19 07:10 Crossmatch See Detail 03/05/19 07:10 Active Medications - Current Medications Current Medications: Generic Name Dose Route Start Last Admin Trade Name Freq PRN Reason Stop Dose Admin Acetaminophen 650 mg 03/05/19 03:59 03/09/19 23:05 Tylenol PO 650 mg Q4H PRN Administration Pain MILD(1-3)/Fever >100.5/BRENNER Albuterol 2.5 mg 03/05/19 04:20 03/08/19 01:15 Proventil IH 2.5 mg Q3HRT PRN Administration Shortness Of Breath Albuterol/Ipratropium 1 ampul 03/05/19 14:00 03/12/19 08:11 Duoneb *Not For Prn Use* IH 1 ampul TIDRT MAYLIN Administration Allopurinol 100 mg 03/05/19 10:00 03/12/19 09:38 Zyloprim PO 100 mg DAILY MAYLIN Administration Aspirin 325 mg 03/05/19 10:00 03/12/19 09:37 Ecotrin PO 325 mg QDAY MAYLIN Administration Atorvastatin Calcium 40 mg 03/05/19 22:00 03/11/19 22:44 Lipitor PO 40 mg QHS MAYLIN Administration Cilostazol 50 mg 03/05/19 10:00 03/12/19 09:38 Pletal PO 50 mg BID MAYLIN Administration Ferrous Sulfate 325 mg 03/05/19 10:00 03/12/19 09:37 Feosol PO 325 mg DAILY MAYLIN Administration Folic Acid 1 mg 03/05/19 10:00 03/12/19 09:39 Folvite PO 1 mg QDAY MAYLIN Administration Furosemide 40 mg 03/09/19 18:00 03/12/19 09:39 Lasix IV 40 mg QDAY MAYLIN Administration Heparin Sodium (Porcine) 5,000 unit 03/05/19 10:00 03/12/19 09:39 Heparin SUB-Q 5,000 unit Q12HR MAYLIN Administration Hydralazine HCl 10 mg 03/05/19 12:10 03/08/19 01:58 Apresoline IV 10 mg Q4HR PRN Administration SBP>170 or DBP>110 Hydralazine HCl 50 mg 03/06/19 14:00 03/12/19 05:51 Apresoline PO 50 mg Q8HR MAYLIN Administration Hydromorphone HCl 0.5 mg 03/05/19 03:59 Dilaudid IV Q3H PRN Pain , Severe (7-10) Insulin Human Isoph/Insulin Regular 10 unit 03/06/19 09:30 03/12/19 08:55 Humulin 70/30 SUB-Q Not Given BIDDIAB [facility] Insulin Human Lispro 0 unit 03/05/19 07:30 03/12/19 08:55 Humalog SUB-Q Not Given ACHS [facility] Protocol Isosorbide Mononitrate 120 mg 03/05/19 10:00 03/12/19 09:38 Imdur PO 120 mg QDAY MAYLIN Administration Metoclopramide HCl 10 mg 03/05/19 03:59 Reglan IV Q6H PRN Nausea And Vomiting Metoprolol Tartrate 50 mg 03/05/19 08:00 03/12/19 08:00 Metoprolol PO 50 mg BID@0800,1700 MAYLIN Administration Nitroglycerin 0.4 mg 03/07/19 22:30 03/10/19 20:50 Nitrostat SL 0.4 mg .Q5MIN PRN Administration Chest Pain Ondansetron HCl 4 mg 03/05/19 03:59 Zofran IV Q3H PRN Nausea And Vomiting Oxycodone/Acetaminophen 1 tab 03/05/19 03:59 03/12/19 10:32 Percocet 5/325 PO 1 tab Q6H PRN Administration Pain, Moderate (4-6) Pantoprazole Sodium 40 mg 03/05/19 10:00 03/12/19 09:37 Protonix PO 40 mg QDAY MAYLIN Administration Sodium Chloride 10 ml 03/05/19 10:00 03/12/19 09:39 Sodium Chloride Flush Syringe 10 Ml IV 10 ml BID MAYLIN Administration Sodium Chloride 10 ml 03/05/19 03:59 Sodium Chloride Flush Syringe 10 Ml IV PRN PRN LINE FLUSH
--- NOTE | 2019-03-12 13:37 | Consultation ---
History of Present Illness - Reason for Consult Consult date: 03/12/19 acute renal failure, chronic renal failure - History of Present Illness The patient is a 73 YO female with history significant for DM type 2, HTN, CAD, Gout, CKD, Pleural effusion, newly diagnosed squamous cell lung cancer, Cardiomyopathy, chronic HFrEF, COPD and CAD s/p PCI who presented to [facility] ED 03/04/2019 with c/o worsening shortness of breath. She was recently treated at this facility with similar symptoms and discharged on 03/03. During the prior admission she was diagnosed with squamous cell lung cancer. her symptoms are better now. She denies fever, chills, N, V, D, abd pain, dizziness, syncope or cp. Creatinine increased from 1.2 to 1.7 today. Nephrology was consulted for further evaluation of NEELIMA. Past History Past Medical History: CAD, cancer, COPD, diabetes, GERD, heart failure, other (gout, cardiomyopathy ) Past Surgical History: No surgical history Social history: smoking Family history: cancer, diabetes, hypertension Medications and Allergies Allergies Allergy/AdvReac Type Severity Reaction Status Date / Time ibuprofen Allergy Unknown Verified 02/18/19 23:29 Penicillins Allergy Unknown Verified 02/18/19 23:29 Home Medications Medication Instructions Recorded Confirmed Last Taken Type Allopurinol 100 mg PO DAILY 12/26/18 03/05/19 03/04/19 History Cilostazol 50 mg PO BID 12/26/18 03/05/19 03/04/19 History Ferrous Sulfate 325 mg PO DAILY 12/26/18 03/05/19 03/04/19 History Ipratropium (Nf) [Atrovent HFA 2 puff IH Q6HR PRN #1 inha 01/11/19 03/05/19 Unknown Rx 17MCG/PUFF] AtorvaSTATin [Lipitor] 40 mg PO QHS 02/09/19 03/05/19 03/04/19 History Pantoprazole [Protonix TAB] 40 mg PO QDAY #30 tablet 02/16/19 03/05/19 Unknown Rx hydrALAZINE [Apresoline TAB] 25 mg PO Q8HR #90 tablet 02/16/19 03/05/19 03/04/19 Rx Furosemide [Lasix TAB] 20 mg PO QDAY tablet 03/01/19 03/05/19 03/04/19 Rx ISOSORBIDE MONOnitrate [Imdur ER] 120 mg PO QDAY tablet 03/01/19 03/05/19 03/04/19 Rx Metoprolol [Lopressor TAB] 50 mg PO BID tablet 03/01/19 03/05/19 Unknown Rx Aspirin EC 325 mg PO QDAY #30 tablet 03/03/19 03/05/19 03/04/19 Rx Folic Acid [Folvite] 1 mg PO QDAY #30 tablet 03/03/19 03/05/19 03/04/19 Rx Insulin NPH/Regular [NovoLIN 70/30] 8 unit SUB-Q ACHS 03/05/19 03/05/19 Unknown History Active Meds: Active Medications Acetaminophen (Tylenol) 650 mg PO Q4H PRN PRN Reason: Pain MILD(1-3)/Fever >100.5/BRENNER Last Admin: 03/09/19 23:05 Dose: 650 mg Documented by: Albuterol (Proventil) 2.5 mg IH Q3HRT PRN PRN Reason: Shortness Of Breath Last Admin: 03/08/19 01:15 Dose: 2.5 mg Documented by: Albuterol/Ipratropium (Duoneb *Not For Prn Use*) 1 ampul IH TIDRT [facility] Last Admin: 03/12/19 08:11 Dose: 1 ampul Documented by: Allopurinol (Zyloprim) 100 mg PO DAILY [facility] Last Admin: 03/12/19 09:38 Dose: 100 mg Documented by: Aspirin (Ecotrin) 325 mg PO QDAY [facility] Last Admin: 03/12/19 09:37 Dose: 325 mg Documented by: Atorvastatin Calcium (Lipitor) 40 mg PO QHS [facility] Last Admin: 03/11/19 22:44 Dose: 40 mg Documented by: Cilostazol (Pletal) 50 mg PO BID [facility] Last Admin: 03/12/19 09:38 Dose: 50 mg Documented by: Diphenhydramine HCl (Benadryl) 25 mg IV Q6H PRN PRN Reason: Itching Ferrous Sulfate (Feosol) 325 mg PO DAILY [facility] Last Admin: 03/12/19 09:37 Dose: 325 mg Documented by: Folic Acid (Folvite) 1 mg PO QDAY [facility] Last Admin: 03/12/19 09:39 Dose: 1 mg Documented by: Furosemide (Lasix) 40 mg IV QDAY [facility] Last Admin: 03/12/19 09:39 Dose: 40 mg Documented by: Heparin Sodium (Porcine) (Heparin) 5,000 unit SUB-Q Q12HR [facility] Last Admin: 03/12/19 09:39 Dose: 5,000 unit Documented by: Hydralazine HCl (Apresoline) 10 mg IV Q4HR PRN PRN Reason: SBP>170 or DBP>110 Last Admin: 03/08/19 01:58 Dose: 10 mg Documented by: Hydralazine HCl (Apresoline) 50 mg PO Q8HR [facility] Last Admin: 03/12/19 05:51 Dose: 50 mg Documented by: Hydromorphone HCl (Dilaudid) 0.5 mg IV Q3H PRN PRN Reason: Pain , Severe (7-10) Insulin Human Isoph/Insulin Regular (Humulin 70/30) 10 unit SUB-Q BIDDIAB [facility] Last Admin: 03/12/19 08:55 Dose: Not Given Documented by: Insulin Human Lispro (Humalog) 0 unit SUB-Q [facility]; Protocol Last Admin: 03/12/19 12:49 Dose: 2 unit Documented by: Isosorbide Mononitrate (Imdur) 120 mg PO QDAY [facility] Last Admin: 03/12/19 09:38 Dose: 120 mg Documented by: Metoclopramide HCl (Reglan) 10 mg IV Q6H PRN PRN Reason: Nausea And Vomiting Metoprolol Tartrate (Metoprolol) 50 mg PO BID@0800,1700 [facility] Last Admin: 03/12/19 08:00 Dose: 50 mg Documented by: Nitroglycerin (Nitrostat) 0.4 mg SL .Q5MIN PRN PRN Reason: Chest Pain Last Admin: 03/10/19 20:50 Dose: 0.4 mg Documented by: Ondansetron HCl (Zofran) 4 mg IV Q3H PRN PRN Reason: Nausea And Vomiting Oxycodone/Acetaminophen (Percocet 5/325) 1 tab PO Q6H PRN PRN Reason: Pain, Moderate (4-6) Last Admin: 03/12/19 10:32 Dose: 1 tab Documented by: Pantoprazole Sodium (Protonix) 40 mg PO QDAY [facility] Last Admin: 03/12/19 09:37 Dose: 40 mg Documented by: Sodium Chloride (Sodium Chloride Flush Syringe 10 Ml) 10 ml IV BID [place] Last Admin: 03/12/19 09:39 Dose: 10 ml Documented by: Sodium Chloride (Sodium Chloride Flush Syringe 10 Ml) 10 ml IV PRN PRN PRN Reason: LINE FLUSH Review of Systems Constitutional: no weight loss, no weight gain, no fever, no chills, no anorexia, no poor appetite Breasts: deferred Cardiovascular: edema, shortness of breath, dyspnea on exertion, high blood pressure, leg edema, no chest pain, no orthopnea, no palpitations, no syncope, no lightheadedness Respiratory: cough, shortness of breath, dyspnea on exertion, no hemoptysis Gastrointestinal: no abdominal pain, no nausea, no vomiting, no diarrhea, no melena Genitourinary Female: no dysuria, no hematuria Musculoskeletal: no muscle cramps Integumentary: no rash Neurological: no seizures, no syncope, no convulsions, no change in speech, no change in mentation, no confusion, no memory loss Exam - Vital Signs Vital signs: Vital Signs Temp Pulse Resp BP Pulse Ox 98.7 F 121 H 30 H 193/91 100 03/04/19 22:33 03/04/19 22:33 03/04/19 22:33 03/04/19 22:33 03/04/19 22:33 - General Appearance General appearance: well-developed, well-nourished, appears stated age, other (no distress) EENT: ATNC, PERRL, hearing intact, vision intact Neck: Present: trachea midline Respiratory: Rales (R lung base), Decreased Breath Sounds (L side) Heart: regular, S1S2, no murmurs Gastrointestinal: Present: normoactive bowel sounds. Absent: tenderness, distended Integumentary: no rash Neurologic: no focal deficit, no asterixis, alert and oriented x3 Musculoskeletal: Present: other (1+ LE edema noted) Psychiatric: cooperative Results - Lab Results 03/12/19 05:41 03/12/19 05:41 Most recent lab results Calcium 7.9 mg/dL (8.4-10.2) L 03/12/19 05:41 Magnesium 2.00 mg/dL (1.7-2.3) 03/08/19 17:07 Assessment and Plan 1. Acute kidney injury: Vasomotor NEELIMA superimposed on CKD stage 3. Urine studies ordered. Monitor renal function. Avoid nephrotoxic agents. Meds dosage based on GFR. 2. FEN: Metabolic acidosis, monitor. Hyponatremia. Monitor lytes. 3. 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 Followed by Pulmonary and Heme-Onc. 4. Decompensated CHF: Continue Lasix. 5. CAD: Followed by Cards. 6. DM-2. 7. Hypertension: Monitor BP. 8. Anemia: POA.
--- NOTE | 2019-03-12 14:17 | Progress Note ---
Assessment and Plan Currently stable cardiac status. D/c IV lasix in setting of NEELIMA, nephrology consultation is pending. The patient has been seen in conjunction with Dr. Munir Negron who agrees with the assessment and plan of care. - Patient Problems (1) Pleural effusion Current Visit: Yes Status: Acute (2) Lung cancer Current Visit: Yes Status: Suspected (3) CAD (coronary artery disease) Current Visit: Yes Status: Chronic Qualifiers: Coronary Disease-Associated Artery/Lesion type: sokaogon artery (4) Stented coronary artery Current Visit: Yes Status: Chronic (5) Cardiomyopathy Current Visit: Yes Status: Chronic (6) Abnormal stress test Current Visit: Yes Status: Chronic (7) PAD (peripheral artery disease) Current Visit: Yes Status: Chronic (8) NSTEMI (non-ST elevated myocardial infarction) Current Visit: Yes Status: Acute (9) Diabetes Current Visit: Yes Status: Chronic (10) Former tobacco use Current Visit: Yes Status: Chronic (11) Anemia Current Visit: Yes Status: Chronic (12) NSVT (nonsustained ventricular tachycardia) Current Visit: Yes Status: Acute Subjective Date of service: 03/12/19 Principal diagnosis: sq cell ca lung Interval history: Pt resting in bed, no current complaints. in SR on tele. Objective Last Vital Signs Temp 97.9 F 03/12/19 12:37 Pulse 86 03/12/19 14:02 Resp 18 03/12/19 14:02 BP 139/59 03/12/19 13:44 Pulse Ox 99 03/12/19 14:05 - Physical Examination General: No Apparent Distress HEENT: Positive: PERRL Neck: Positive: neck supple Cardiac: Positive: Reg Rate and Rhythm, S1/S2 Lungs: Positive: Decreased Breath Sounds Neuro: Positive: Grossly Intact Abdomen: Positive: Unremarkable Skin: Positive: Clear Musculoskeletal: Normal Range of Motion Extremities: Present: normal - Labs and Meds CBC 03/12/19 Range/Units 05:41 WBC 16.1 H (4.5-11.0) K/mm3 RBC 3.24 L (3.65-5.03) M/mm3 Hgb 8.6 L (10.1-14.3) gm/dl Hct 26.6 L (30.3-42.9) % Plt Count 314 (140-440) K/mm3 Lymph # 0.9 L (1.2-5.4) K/mm3 Bullitt # 1.2 H (0.0-0.8) K/mm3 Eos # 0.4 (0.0-0.4) K/mm3 Baso # 0.1 (0.0-0.1) K/mm3 Comprehensive Metabolic Panel 03/12/19 Range/Units 05:41 Sodium 131 L (137-145) mmol/L Potassium 4.3 (3.6-5.0) mmol/L Chloride 94.2 L (98-107) mmol/L Carbon Dioxide 17 L (22-30) mmol/L BUN 58 H (7-17) mg/dL Creatinine 1.7 H (0.7-1.2) mg/dL Glucose 146 H (65-100) mg/dL Calcium 7.9 L (8.4-10.2) mg/dL - Imaging and Cardiology EKG: report reviewed, image reviewed Echo: report reviewed (02/23: EF of 30 to 35 percent, impaired relaxation, mild MR, mild TR and moderately reduced RV systolic function) - Telemetry EKG Rhythm: Sinus Rhythm Repolarization changes or abnormalities: nonspecific abnormality, ST segment, and/or T wave
--- NOTE | 2019-03-12 15:16 | Progress Note ---
Assessment and Plan 73 y/o female with squamous cell carcinoma of the lung, now with recurrent left sided effusion, larger this time. 1. Effusion is back but patient asymptomatic. Will need IR consult with [facility] or [facility] for Pleurx placement. Discussed with patient. Will discuss with daughter tomorrow. 2. Fluid positive for malignant cells. Stage IV disease. Prognosis is poor. Subjective Date of service: 03/12/19 Principal diagnosis: sq cell ca lung Interval history: Effusion positive for malignant cells so stage IV disease. Hopefully onc is aware. Discussed with patient at bedside. Tried to call daughter but no answer. Objective Vital Signs - 12hr 03/12/19 03/12/19 03/12/19 04:00 07:33 08:00 Temperature 98.1 F 98.7 F Pulse Rate 93 H 102 H 101 H Pulse Rate [ Anterior Bilateral Throughout] Pulse Rate [ Apical] Pulse Rate [ Left Radial] Pulse Rate [ Right Radial] Respiratory 18 22 Rate Respiratory Rate [Anterior Bilateral Throughout] Blood Pressure 130/47 154/57 139/59 O2 Sat by Pulse 96 96 Oximetry 03/12/19 03/12/19 03/12/19 08:11 09:38 10:00 Temperature Pulse Rate 101 H Pulse Rate [ 98 H Anterior Bilateral Throughout] Pulse Rate [ 101 H Apical] Pulse Rate [ 101 H Left Radial] Pulse Rate [ 101 H Right Radial] Respiratory 23 Rate Respiratory 18 Rate [Anterior Bilateral Throughout] Blood Pressure 139/89 O2 Sat by Pulse 99 99 Oximetry 03/12/19 03/12/19 03/12/19 12:37 13:44 14:02 Temperature 97.9 F Pulse Rate 83 101 H Pulse Rate [ 86 Anterior Bilateral Throughout] Pulse Rate [ Apical] Pulse Rate [ Left Radial] Pulse Rate [ Right Radial] Respiratory 18 Rate Respiratory 18 Rate [Anterior Bilateral Throughout] Blood Pressure 139/56 139/59 O2 Sat by Pulse 99 Oximetry 03/12/19 14:05 Temperature Pulse Rate Pulse Rate [ Anterior Bilateral Throughout] Pulse Rate [ Apical] Pulse Rate [ Left Radial] Pulse Rate [ Right Radial] Respiratory Rate Respiratory Rate [Anterior Bilateral Throughout] Blood Pressure O2 Sat by Pulse 99 Oximetry Constitutional: no acute distress, alert Eyes: non-icteric ENT: oropharynx moist Neck: supple Ascultation: Bilateral: clear, diminished breath sounds Cardiovascular: regular rate and rhythm Gastrointestinal: normoactive bowel sounds, soft, non-tender, non-distended Integumentary: normal Extremities: no cyanosis Neurologic: normal mental status, non-focal exam Psychiatric: mood appropriate, affect normal CBC and BMP: 03/12/19 05:41 03/12/19 05:41 ABG, PT/INR, D-dimer: ABG POC ABG pH 7.375 (7.35-7.45) 03/05/19 03:29 POC ABG pCO2 42.4 (35-45) 03/05/19 03:29 POC ABG pO2 109 (80-105) H 03/05/19 03:29 POC ABG HCO3 24.7 (22-26 mml/L) 03/05/19 03:29 POC ABG Total CO2 26 (23-27mmol/L) 03/05/19 03:29 POC ABG O2 Sat 98 03/05/19 03:29 PT/INR, D-dimer PT 12.8 Sec. (12.2-14.9) 03/08/19 09:33 INR 0.97 (0.87-1.13) 03/08/19 09:33 Abnormal lab findings: Abnormal Labs 03/04/19 03/04/19 03/04/19 23:02 23:02 23:02 WBC 26.4 H RBC 3.09 L Hgb 7.7 L Hct 24.9 L MCH 25 L RDW 20.7 H Plt Count 491 H Lymph % (Auto) Towner % (Auto) Lymph # Towner # Seg Neutrophils % Seg Neuts % (Manual) 96.0 H Lymphocytes % (Manual) 1.0 L Seg Neutrophils # Seg Neutrophils # Man 25.3 H Lymphocytes # (Manual) 0.3 L Eosinophils # (Manual) 0.5 H POC ABG pO2 Sodium 135 L Chloride Carbon Dioxide BUN 37 H Creatinine Glucose 338 H POC Glucose Hemoglobin A1c Calcium 8.2 L Troponin T 0.192 H* NT-Pro-B Natriuret Pep 63231 H Albumin 2.9 L LDL Cholesterol Direct 43 L HDL Cholesterol 98 H Vancomycin Trough Crossmatch 03/05/19 03/05/19 03/05/19 03:29 05:47 07:10 WBC RBC Hgb Hct MCH RDW Plt Count Lymph % (Auto) Towner % (Auto) Lymph # Towner # Seg Neutrophils % Seg Neuts % (Manual) Lymphocytes % (Manual) Seg Neutrophils # Seg Neutrophils # Man Lymphocytes # (Manual) Eosinophils # (Manual) POC ABG pO2 109 H Sodium Chloride Carbon Dioxide BUN Creatinine Glucose POC Glucose Hemoglobin A1c 6.6 H Calcium Troponin T NT-Pro-B Natriuret Pep Albumin LDL Cholesterol Direct HDL Cholesterol Vancomycin Trough Crossmatch See Detail 03/05/19 03/05/19 03/05/19 08:44 12:35 16:29 WBC RBC Hgb Hct MCH RDW Plt Count Lymph % (Auto) Towner % (Auto) Lymph # Towner # Seg Neutrophils % Seg Neuts % (Manual) Lymphocytes % (Manual) Seg Neutrophils # Seg Neutrophils # Man Lymphocytes # (Manual) Eosinophils # (Manual) POC ABG pO2 Sodium Chloride Carbon Dioxide BUN Creatinine Glucose POC Glucose 295 H 292 H 243 H Hemoglobin A1c Calcium Troponin T NT-Pro-B Natriuret Pep Albumin LDL Cholesterol Direct HDL Cholesterol Vancomycin Trough Crossmatch 03/05/19 03/06/19 03/06/19 21:52 05:57 05:57 WBC 15.6 H RBC 3.45 L Hgb 9.0 L Hct 28.3 L MCH 26 L RDW 20.6 H Plt Count Lymph % (Auto) Towner % (Auto) Lymph # Towner # Seg Neutrophils % Seg Neuts % (Manual) 97.0 H Lymphocytes % (Manual) 3.0 L Seg Neutrophils # Seg Neutrophils # Man 15.1 H Lymphocytes # (Manual) 0.5 L Eosinophils # (Manual) POC ABG pO2 Sodium 134 L Chloride Carbon Dioxide 21 L BUN 38 H Creatinine Glucose 342 H POC Glucose 266 H Hemoglobin A1c Calcium 8.3 L Troponin T NT-Pro-B Natriuret Pep Albumin 2.9 L LDL Cholesterol Direct HDL Cholesterol Vancomycin Trough Crossmatch 03/06/19 03/06/19 03/06/19 08:37 10:28 14:59 WBC RBC Hgb Hct MCH RDW Plt Count Lymph % (Auto) Towner % (Auto) Lymph # Towner # Seg Neutrophils % Seg Neuts % (Manual) Lymphocytes % (Manual) Seg Neutrophils # Seg Neutrophils # Man Lymphocytes # (Manual) Eosinophils # (Manual) POC ABG pO2 Sodium Chloride Carbon Dioxide BUN Creatinine Glucose POC Glucose 386 H 403 H 212 H Hemoglobin A1c Calcium Troponin T NT-Pro-B Natriuret Pep Albumin LDL Cholesterol Direct HDL Cholesterol Vancomycin Trough Crossmatch 03/06/19 03/07/19 03/07/19 21:00 05:12 08:07 WBC 15.3 H RBC 3.12 L Hgb 8.2 L Hct 25.6 L MCH 26 L RDW 20.7 H Plt Count Lymph % (Auto) Towner % (Auto) Lymph # Towner # Seg Neutrophils % Seg Neuts % (Manual) Lymphocytes % (Manual) Seg Neutrophils # Seg Neutrophils # Man Lymphocytes # (Manual) Eosinophils # (Manual) POC ABG pO2 Sodium Chloride Carbon Dioxide BUN Creatinine Glucose POC Glucose 195 H 293 H Hemoglobin A1c Calcium Troponin T NT-Pro-B Natriuret Pep Albumin LDL Cholesterol Direct HDL Cholesterol Vancomycin Trough Crossmatch 03/07/19 03/07/19 03/07/19 12:02 17:02 21:12 WBC RBC Hgb Hct MCH RDW Plt Count Lymph % (Auto) Towner % (Auto) Lymph # Towner # Seg Neutrophils % Seg Neuts % (Manual) Lymphocytes % (Manual) Seg Neutrophils # Seg Neutrophils # Man Lymphocytes # (Manual) Eosinophils # (Manual) POC ABG pO2 Sodium Chloride Carbon Dioxide BUN Creatinine Glucose POC Glucose 330 H 282 H 317 H Hemoglobin A1c Calcium Troponin T NT-Pro-B Natriuret Pep Albumin LDL Cholesterol Direct HDL Cholesterol Vancomycin Trough Crossmatch 03/08/19 03/08/19 03/08/19 08:31 11:00 12:02 WBC RBC Hgb Hct MCH RDW Plt Count Lymph % (Auto) Towner % (Auto) Lymph # Towner # Seg Neutrophils % Seg Neuts % (Manual) Lymphocytes % (Manual) Seg Neutrophils # Seg Neutrophils # Man Lymphocytes # (Manual) Eosinophils # (Manual) POC ABG pO2 Sodium Chloride Carbon Dioxide BUN Creatinine Glucose POC Glucose 236 H 301 H Hemoglobin A1c Calcium Troponin T NT-Pro-B Natriuret Pep Albumin LDL Cholesterol Direct HDL Cholesterol Vancomycin Trough 21.9 H Crossmatch 03/08/19 03/08/19 03/08/19 16:07 17:07 22:45 WBC RBC Hgb Hct MCH RDW Plt Count Lymph % (Auto) Towner % (Auto) Lymph # Towner # Seg Neutrophils % Seg Neuts % (Manual) Lymphocytes % (Manual) Seg Neutrophils # Seg Neutrophils # Man Lymphocytes # (Manual) Eosinophils # (Manual) POC ABG pO2 Sodium 131 L Chloride Carbon Dioxide 20 L BUN 49 H Creatinine 1.3 H Glucose 289 H POC Glucose 296 H 192 H Hemoglobin A1c Calcium Troponin T NT-Pro-B Natriuret Pep Albumin LDL Cholesterol Direct HDL Cholesterol Vancomycin Trough Crossmatch 03/09/19 03/09/19 03/09/19 08:31 11:01 12:11 WBC RBC Hgb Hct MCH RDW Plt Count Lymph % (Auto) Towner % (Auto) Lymph # Towner # Seg Neutrophils % Seg Neuts % (Manual) Lymphocytes % (Manual) Seg Neutrophils # Seg Neutrophils # Man Lymphocytes # (Manual) Eosinophils # (Manual) POC ABG pO2 Sodium Chloride Carbon Dioxide BUN Creatinine Glucose POC Glucose 60 L 183 H 219 H Hemoglobin A1c Calcium Troponin T NT-Pro-B Natriuret Pep Albumin LDL Cholesterol Direct HDL Cholesterol Vancomycin Trough Crossmatch 03/09/19 03/09/19 03/10/19 16:15 21:08 04:53 WBC RBC Hgb Hct MCH RDW Plt Count Lymph % (Auto) Towner % (Auto) Lymph # Towner # Seg Neutrophils % Seg Neuts % (Manual) Lymphocytes % (Manual) Seg Neutrophils # Seg Neutrophils # Man Lymphocytes # (Manual) Eosinophils # (Manual) POC ABG pO2 Sodium 133 L Chloride Carbon Dioxide 19 L BUN 57 H Creatinine 1.4 H Glucose POC Glucose 202 H 115 H Hemoglobin A1c Calcium 8.1 L Troponin T NT-Pro-B Natriuret Pep Albumin LDL Cholesterol Direct HDL Cholesterol Vancomycin Trough Crossmatch 03/10/19 03/10/19 03/10/19 10:19 11:32 18:24 WBC RBC Hgb Hct MCH RDW Plt Count Lymph % (Auto) Towner % (Auto) Lymph # Towner # Seg Neutrophils % Seg Neuts % (Manual) Lymphocytes % (Manual) Seg Neutrophils # Seg Neutrophils # Man Lymphocytes # (Manual) Eosinophils # (Manual) POC ABG pO2 Sodium Chloride Carbon Dioxide BUN Creatinine Glucose POC Glucose 151 H 146 H 106 H Hemoglobin A1c Calcium Troponin T NT-Pro-B Natriuret Pep Albumin LDL Cholesterol Direct HDL Cholesterol Vancomycin Trough Crossmatch 03/11/19 03/11/19 03/11/19 04:34 11:14 16:29 WBC RBC Hgb Hct MCH RDW Plt Count Lymph % (Auto) Towner % (Auto) Lymph # Towner # Seg Neutrophils % Seg Neuts % (Manual) Lymphocytes % (Manual) Seg Neutrophils # Seg Neutrophils # Man Lymphocytes # (Manual) Eosinophils # (Manual) POC ABG pO2 Sodium 131 L Chloride Carbon Dioxide 20 L BUN 57 H Creatinine 1.7 H Glucose 189 H POC Glucose 158 H 119 H Hemoglobin A1c Calcium 7.7 L Troponin T NT-Pro-B Natriuret Pep Albumin LDL Cholesterol Direct HDL Cholesterol Vancomycin Trough Crossmatch 03/11/19 03/12/19 03/12/19 20:48 05:41 05:41 WBC 16.1 H RBC 3.24 L Hgb 8.6 L Hct 26.6 L MCH 27 L RDW 20.8 H Plt Count Lymph % (Auto) 5.4 L Towner % (Auto) 7.4 H Lymph # 0.9 L Towner # 1.2 H Seg Neutrophils % 83.9 H Seg Neuts % (Manual) Lymphocytes % (Manual) Seg Neutrophils # 13.5 H Seg Neutrophils # Man Lymphocytes # (Manual) Eosinophils # (Manual) POC ABG pO2 Sodium 131 L Chloride 94.2 L Carbon Dioxide 17 L BUN 58 H Creatinine 1.7 H Glucose 146 H POC Glucose 258 H Hemoglobin A1c Calcium 7.9 L Troponin T NT-Pro-B Natriuret Pep Albumin LDL Cholesterol Direct HDL Cholesterol Vancomycin Trough Crossmatch 03/12/19 03/12/19 09:01 12:51 WBC RBC Hgb Hct MCH RDW Plt Count Lymph % (Auto) Towner % (Auto) Lymph # Towner # Seg Neutrophils % Seg Neuts % (Manual) Lymphocytes % (Manual) Seg Neutrophils # Seg Neutrophils # Man Lymphocytes # (Manual) Eosinophils # (Manual) POC ABG pO2 Sodium Chloride Carbon Dioxide BUN Creatinine Glucose POC Glucose 135 H 191 H Hemoglobin A1c Calcium Troponin T NT-Pro-B Natriuret Pep Albumin LDL Cholesterol Direct HDL Cholesterol Vancomycin Trough Crossmatch
[2019-03-12] MEDS: ACETAMINOPHEN 325 MG TAB PO PRN (15:17)
[2019-03-12] MEDS ORDERED: hydrOXYzine HCL 10 MG TAB PO PRN (16:02)
[2019-03-13] MEDS: hydrALAZINE 25 MG TAB PO SCH ×3 (05:07→21:35)
[2019-03-13 05:32] LABS: Basophils % (Auto) 0.3 % (0.0-1.8); Eosinophils # (Auto) 0.4 K/mm3 (0.0-0.4); Eosinophils % (Auto) 3.4 % (0.0-4.3); Hematocrit 26.9 % (30.3-42.9); Hemoglobin 8.8 gm/dl (10.1-14.3); Lymphocytes # (Auto) 0.9 K/mm3 (1.2-5.4); Lymphocytes % (Auto) 6.6 % (13.4-35.0); Mean Corpuscular HGB Conc 33 % (30-34); Mean Corpuscular Volume 82 fl (79-97); Monocytes # (Auto) 1.1 K/mm3 (0.0-0.8); Monocytes % (Auto) 8.2 % (0.0-7.3); Platelet Count 346 K/mm3 (140-440); Red Blood Count 3.29 M/mm3 (3.65-5.03)
[2019-03-13 05:52] LABS: Calcium 8.2 mg/dL (8.4-10.2)
[2019-03-13 06:15] LABS: Red Cell Distribution Width 20.8 % (13.2-15.2)
[2019-03-13] MEDS: IPRATROPIUM/ALBUTEROL SULFATE 3 ML AMPUL.NEB IH SCH ×3 (07:57→22:02)
[2019-03-13] MEDS: INSULIN NPH/REGULAR 70/30 INJ SUB-Q SCH ×2 (09:11→17:10)
[2019-03-13] MEDS: FOLIC ACID 1 MG TAB PO SCH (09:12)
[2019-03-13] MEDS: INSULIN LISPRO 100 UNIT/ML SUB-Q SCH ×4 (09:12→22:00)
[2019-03-13] MEDS: ASPIRIN EC 325 MG TAB PO SCH (09:12)
[2019-03-13] MEDS: FERROUS SULFATE 325 MG TAB PO SCH (09:13)
[2019-03-13] MEDS: allopurinoL 100 MG TAB PO SCH (09:13)
[2019-03-13] MEDS: CILOSTAZOL 100 MG TAB PO SCH ×2 (09:13→21:36)
[2019-03-13] MEDS: HEPARIN 5,000 UNIT/1 ML VIAL SUB-Q SCH ×2 (09:13→21:37)
[2019-03-13] MEDS: PANTOPRAZOLE 40 MG TAB PO SCH (09:13)
[2019-03-13] MEDS: METOPROLOL TARTRATE 50 MG TAB PO SCH ×2 (09:16→17:22)
--- NOTE | 2019-03-13 09:45 | Progress Note ---
Assessment and Plan 1. Acute kidney injury: Vasomotor NEELIMA superimposed on CKD stage 3. CT abdomen was negative for hydronephrosis. Urine studies ordered. Monitor renal function. Avoid nephrotoxic agents. Meds dosage based on GFR. 2. FEN: Metabolic acidosis, improving. Hyponatremia. Monitor lytes. 3. 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 Followed by Pulmonary and Heme-Onc. 4. Decompensated CHF: Continue Lasix. 5. CAD: Followed by Cards. 6. DM-2. 7. Hypertension: Monitor BP. 8. Anemia: POA. Examination: General appearance: well-developed, well-nourished, appears stated age, mild distress HEENT: ATNC, SKYE, hearing intact, vision intact Neck: trachea midline Respiratory: Rales (R lung base), Decreased Breath Sounds (L side) Heart: regular, S1S2, no murmur Abdomen: Soft, normoactive bowel sounds, not tender Integumentary: no rash Neurologic: no focal deficit, no asterixis, alert and oriented x3 Ext: 1+ LE edema noted Psychiatric: cooperative Subjective Date of service: 03/13/19 Principal diagnosis: sq cell ca lung Interval history: Patient was seen and examined at the bedside. Objective - Vital Signs Vital signs: Vital Signs - 12hr 03/13/19 03/13/19 03/13/19 00:00 00:08 03:22 Temperature 98.0 F 98.1 F Pulse Rate 93 H 94 H Pulse Rate [ Anterior Bilateral Throughout] Respiratory 23 18 18 Rate Respiratory Rate [Anterior Bilateral Throughout] Blood Pressure 150/64 158/60 O2 Sat by Pulse 98 100 98 Oximetry 03/13/19 03/13/19 03/13/19 07:53 08:55 09:16 Temperature 98.2 F Pulse Rate 94 H Pulse Rate [ 93 H Anterior Bilateral Throughout] Respiratory 18 Rate Respiratory 18 Rate [Anterior Bilateral Throughout] Blood Pressure 160/56 160/56 O2 Sat by Pulse 99 93 Oximetry - Lab 03/13/19 04:44 03/13/19 04:44 Most recent lab results Calcium 8.2 mg/dL (8.4-10.2) L 03/13/19 04:44 Magnesium 2.00 mg/dL (1.7-2.3) 03/08/19 17:07 Medications & Allergies - Medications Allergies/Adverse Reactions: Allergies ibuprofen Allergy (Verified 02/18/19 23:29) Unknown Penicillins Allergy (Verified 02/18/19 23:29) Unknown Home Medications: Home Medications Medication Instructions Recorded Confirmed Last Taken Type Allopurinol 100 mg PO DAILY 12/26/18 03/05/19 03/04/19 History Cilostazol 50 mg PO BID 12/26/18 03/05/19 03/04/19 History Ferrous Sulfate 325 mg PO DAILY 12/26/18 03/05/19 03/04/19 History Ipratropium (Nf) [Atrovent HFA 2 puff IH Q6HR PRN #1 inha 01/11/19 03/05/19 Unknown Rx 17MCG/PUFF] AtorvaSTATin [Lipitor] 40 mg PO QHS 02/09/19 03/05/19 03/04/19 History Pantoprazole [Protonix TAB] 40 mg PO QDAY #30 tablet 02/16/19 03/05/19 Unknown Rx hydrALAZINE [Apresoline TAB] 25 mg PO Q8HR #90 tablet 02/16/19 03/05/19 03/04/19 Rx Furosemide [Lasix TAB] 20 mg PO QDAY tablet 03/01/19 03/05/19 03/04/19 Rx ISOSORBIDE MONOnitrate [Imdur ER] 120 mg PO QDAY tablet 03/01/19 03/05/19 03/04/19 Rx Metoprolol [Lopressor TAB] 50 mg PO BID tablet 03/01/19 03/05/19 Unknown Rx Aspirin EC 325 mg PO QDAY #30 tablet 03/03/19 03/05/19 03/04/19 Rx Folic Acid [Folvite] 1 mg PO QDAY #30 tablet 03/03/19 03/05/19 03/04/19 Rx Insulin NPH/Regular [NovoLIN 70/30] 8 unit SUB-Q ACHS 03/05/19 03/05/19 Unknown History Active Medications: Generic Name Dose Route Start Last Admin Trade Name Freq PRN Reason Stop Dose Admin Acetaminophen 650 mg 03/05/19 03:59 03/12/19 15:17 Tylenol PO 650 mg Q4H PRN Administration Pain MILD(1-3)/Fever >100.5/BRENNER Albuterol 2.5 mg 03/05/19 04:20 03/08/19 01:15 Proventil IH 2.5 mg Q3HRT PRN Administration Shortness Of Breath Albuterol/Ipratropium 1 ampul 03/05/19 14:00 03/13/19 07:57 Duoneb *Not For Prn Use* IH 1 ampul TIDRT MAYLIN Administration Allopurinol 100 mg 03/05/19 10:00 03/13/19 09:13 Zyloprim PO 100 mg DAILY MAYLIN Administration Aspirin 325 mg 03/05/19 10:00 03/13/19 09:12 Ecotrin PO 325 mg QDAY MAYLIN Administration Atorvastatin Calcium 40 mg 03/05/19 22:00 03/12/19 22:30 Lipitor PO 40 mg QHS MAYLIN Administration Cilostazol 50 mg 03/05/19 10:00 03/13/19 09:13 Pletal PO 50 mg BID MAYLIN Administration Diphenhydramine HCl 25 mg 03/12/19 11:53 Benadryl IV Q6H PRN Itching Ferrous Sulfate 325 mg 03/05/19 10:00 03/13/19 09:13 Feosol PO 325 mg DAILY MAYLIN Administration Folic Acid 1 mg 03/05/19 10:00 03/13/19 09:12 Folvite PO 1 mg QDAY MAYLIN Administration Heparin Sodium (Porcine) 5,000 unit 03/05/19 10:00 03/13/19 09:13 Heparin SUB-Q 5,000 unit Q12HR MAYLIN Administration Hydralazine HCl 10 mg 03/05/19 12:10 03/08/19 01:58 Apresoline IV 10 mg Q4HR PRN Administration SBP>170 or DBP>110 Hydralazine HCl 50 mg 03/06/19 14:00 03/13/19 05:07 Apresoline PO 50 mg Q8HR MAYLIN Administration Hydromorphone HCl 0.5 mg 03/05/19 03:59 Dilaudid IV Q3H PRN Pain , Severe (7-10) Hydroxyzine HCl 10 mg 03/12/19 16:02 Atarax PO Q6H PRN Itching Insulin Human Isoph/Insulin Regular 10 unit 03/06/19 09:30 03/13/19 09:11 Humulin 70/30 SUB-Q 10 unit BIDDIAB MAYLIN Administration Insulin Human Lispro 0 unit 03/05/19 07:30 03/13/19 09:12 Humalog SUB-Q 2 unit ACHS MAYLIN Administration Protocol Isosorbide Mononitrate 120 mg 03/05/19 10:00 03/13/19 09:16 Imdur PO 120 mg QDAY MAYLIN Administration Metoclopramide HCl 10 mg 03/05/19 03:59 Reglan IV Q6H PRN Nausea And Vomiting Metoprolol Tartrate 50 mg 03/05/19 08:00 03/13/19 09:16 Metoprolol PO 50 mg BID@0800,1700 MAYLIN Administration Nitroglycerin 0.4 mg 03/07/19 22:30 03/10/19 20:50 Nitrostat SL 0.4 mg .Q5MIN PRN Administration Chest Pain Ondansetron HCl 4 mg 03/05/19 03:59 Zofran IV Q3H PRN Nausea And Vomiting Oxycodone/Acetaminophen 1 tab 03/05/19 03:59 03/12/19 10:32 Percocet 5/325 PO 1 tab Q6H PRN Administration Pain, Moderate (4-6) Pantoprazole Sodium 40 mg 03/05/19 10:00 03/13/19 09:13 Protonix PO 40 mg QDAY MAYLIN Administration Sodium Chloride 10 ml 03/05/19 10:00 03/13/19 09:16 Sodium Chloride Flush Syringe 10 Ml IV 10 ml BID MAYLIN Administration Sodium Chloride 10 ml 03/05/19 03:59 Sodium Chloride Flush Syringe 10 Ml IV PRN PRN LINE FLUSH
--- NOTE | 2019-03-13 11:50 | Progress Note ---
Assessment and Plan Patient in respiratory distress this AM. Await pulmonology/vascular recommendations for PleuRx. Tachycardia likely physiologic d/t SOB. Continue current cardiac management. The patient has been seen in conjunction with Dr. Hoyt, who agrees with the assessment and plan. - Patient Problems (1) NSTEMI (non-ST elevated myocardial infarction) Current Visit: Yes Status: Acute (2) Acute respiratory failure with hypoxemia Current Visit: Yes Status: Resolved (3) COPD with exacerbation Current Visit: Yes Status: Acute (4) Pleural effusion Current Visit: Yes Status: Acute (5) Chronic HFrEF (heart failure with reduced ejection fraction) Current Visit: Yes Status: Chronic (6) Cardiomyopathy Current Visit: Yes Status: Chronic (7) Coronary artery disease Current Visit: Yes Status: Chronic Qualifiers: Coronary Disease-Associated Artery/Lesion type: [place] artery [place] vs. transplanted heart: [place] heart (8) PAD (peripheral artery disease) Current Visit: Yes Status: Chronic (9) Abnormal stress test Current Visit: Yes Status: Chronic (10) Anemia Current Visit: Yes Status: Chronic (11) Diabetes Current Visit: Yes Status: Chronic (12) Lung cancer Current Visit: Yes Status: Suspected Subjective Date of service: 03/13/19 Principal diagnosis: sq cell ca lung Interval history: The patient is lying in bed in mild respiratory distress. She reports SOB began again yesterday evening. Telemetry reviewed - ST in 110s. Objective Last Vital Signs Temp 98.2 F 03/13/19 07:53 Pulse 94 H 03/13/19 09:16 Resp 18 03/13/19 08:55 BP 160/56 03/13/19 09:16 Pulse Ox 93 03/13/19 08:55 = - Physical Examination General: No Apparent Distress, Other (mild respiratory distress) HEENT: Positive: PERRL Neck: Positive: trachea midline Cardiac: Positive: Regular Rhythm (tachycardia) Lungs: Positive: Decreased Breath Sounds Neuro: Positive: Grossly Intact Abdomen: Positive: Unremarkable Skin: Positive: Clear Musculoskeletal: Normal Range of Motion Extremities: Present: +1 Edema - Labs and Meds CBC 03/13/19 Range/Units 04:44 WBC 13.0 H (4.5-11.0) K/mm3 RBC 3.29 L (3.65-5.03) M/mm3 Hgb 8.8 L (10.1-14.3) gm/dl Hct 26.9 L (30.3-42.9) % Plt Count 346 (140-440) K/mm3 Lymph # 0.9 L (1.2-5.4) K/mm3 [place] # 1.1 H (0.0-0.8) K/mm3 Eos # 0.4 (0.0-0.4) K/mm3 Baso # 0.0 (0.0-0.1) K/mm3 Comprehensive Metabolic Panel 03/13/19 Range/Units 04:44 Sodium 131 L (137-145) mmol/L Potassium 4.7 (3.6-5.0) mmol/L Chloride 97.9 L (98-107) mmol/L Carbon Dioxide 22 (22-30) mmol/L BUN 56 H (7-17) mg/dL Creatinine 1.8 H (0.7-1.2) mg/dL Glucose 148 H (65-100) mg/dL Calcium 8.2 L (8.4-10.2) mg/dL - Imaging and Cardiology EKG: report reviewed, image reviewed Echo: report reviewed (02/23: EF of 30 to 35 percent, impaired relaxation, mild MR, mild TR and moderately reduced RV systolic function) - Telemetry EKG Rhythm: Sinus Tachycardia Repolarization changes or abnormalities: nonspecific abnormality, ST segment, and/or T wave
--- NOTE | 2019-03-13 16:00 | Hem/Onc Progress Note ---
Assessment and Plan 1. Squamous cell cancer of lung. 2. Left upper lobe mass. 3. The patient is short of breath. The plan was to see her in outpatient setting to see if any oral agent can be used. 4. History of pleural effusion, history of coronary artery disease, history of cardiomyopathy, history of hypertension. 5. Anemia. 6. Thrombocytosis. 7. Low folate. 8. History of hemoptysis. 9. The plan was to do a PET/CT as an outpatient. CT abdo pelvis - no mets CT head a few weeks ago - no mets pt is on o2 - guarded prognosis - as limited options - d/w daughter - for oral or iv chemo - pt needs to come to office XRT eval - d/w dr Torres -I had spoken to him pl effusion malignant - d.w dr swann - plan for pleurodex - Patient Problems (1) Lung cancer Current Visit: Yes Status: Suspected Subjective Date of service: 03/13/19 Principal diagnosis: lung ca - pl effusion Interval history: on o2 Objective - Exam Narrative Exam: Pain - none General appearance - alert Performance status complete dependence Eyes - no icterus ENT - no bleeding LNs cervical not palpable Neck - no LN Respiratory Normal - on o2 Breath sounds - CTA anteriorly CVS S1 S2 + Extremities no edema General GI Soft Rectal deferred female - deferred Skin warm Musculoskeletal - moving limbs Neurologically alert awake - Constitutional Vitals: Last Vital Signs Temp 98.2 F 03/13/19 07:53 Pulse 94 H 03/13/19 14:32 Resp 18 03/13/19 14:32 BP 160/56 03/13/19 09:16 Pulse Ox 98 03/13/19 14:33 - Labs Lab Results: Laboratory Results - last 24 hr 03/12/19 03/12/19 03/13/19 15:32 20:27 04:44 WBC 13.0 H RBC 3.29 L Hgb 8.8 L Hct 26.9 L MCV 82 MCH 27 L MCHC 33 RDW 20.8 H Plt Count 346 Lymph % (Auto) 6.6 L [place] % (Auto) 8.2 H Eos % (Auto) 3.4 Baso % (Auto) 0.3 Lymph # 0.9 L [place] # 1.1 H Eos # 0.4 Baso # 0.0 Seg Neutrophils % 81.5 H Seg Neutrophils # 10.6 H Sodium Potassium Chloride Carbon Dioxide Anion Gap BUN Creatinine Estimated GFR BUN/Creatinine Ratio Glucose POC Glucose 171 H 203 H Calcium 03/13/19 03/13/19 03/13/19 04:44 09:10 12:24 WBC RBC Hgb Hct MCV MCH MCHC RDW Plt Count Lymph % (Auto) [place] % (Auto) Eos % (Auto) Baso % (Auto) Lymph # [place] # Eos # Baso # Seg Neutrophils % Seg Neutrophils # Sodium 131 L Potassium 4.7 Chloride 97.9 L Carbon Dioxide 22 Anion Gap 16 BUN 56 H Creatinine 1.8 H Estimated GFR 33 BUN/Creatinine Ratio 31 Glucose 148 H POC Glucose 186 H 150 H Calcium 8.2 L Medications & Allergies - Medications Allergies/Adverse Reactions: Allergies ibuprofen Allergy (Verified 02/18/19 23:29) Unknown Penicillins Allergy (Verified 02/18/19 23:29) Unknown Home Medications: Home Medications Medication Instructions Recorded Confirmed Last Taken Type Allopurinol 100 mg PO DAILY 12/26/18 03/05/19 03/04/19 History Cilostazol 50 mg PO BID 12/26/18 03/05/19 03/04/19 History Ferrous Sulfate 325 mg PO DAILY 12/26/18 03/05/19 03/04/19 History Ipratropium (Nf) [Atrovent HFA 2 puff IH Q6HR PRN #1 inha 01/11/19 03/05/19 Unknown Rx 17MCG/PUFF] AtorvaSTATin [Lipitor] 40 mg PO QHS 02/09/19 03/05/19 03/04/19 History Pantoprazole [Protonix TAB] 40 mg PO QDAY #30 tablet 02/16/19 03/05/19 Unknown Rx hydrALAZINE [Apresoline TAB] 25 mg PO Q8HR #90 tablet 02/16/19 03/05/19 03/04/19 Rx Furosemide [Lasix TAB] 20 mg PO QDAY tablet 03/01/19 03/05/19 03/04/19 Rx ISOSORBIDE MONOnitrate [Imdur ER] 120 mg PO QDAY tablet 03/01/19 03/05/19 03/04/19 Rx Metoprolol [Lopressor TAB] 50 mg PO BID tablet 03/01/19 03/05/19 Unknown Rx Aspirin EC 325 mg PO QDAY #30 tablet 03/03/19 03/05/19 03/04/19 Rx Folic Acid [Folvite] 1 mg PO QDAY #30 tablet 03/03/19 03/05/19 03/04/19 Rx Insulin NPH/Regular [NovoLIN 70/30] 8 unit SUB-Q ACHS 03/05/19 03/05/19 Unknown History Active Medications: Generic Name Dose Route Start Last Admin Trade Name Freq PRN Reason Stop Dose Admin Acetaminophen 650 mg 03/05/19 03:59 03/12/19 15:17 Tylenol PO 650 mg Q4H PRN Administration Pain MILD(1-3)/Fever >100.5/BRENNER Albuterol 2.5 mg 03/05/19 04:20 03/08/19 01:15 Proventil IH 2.5 mg Q3HRT PRN Administration Shortness Of Breath Albuterol/Ipratropium 1 ampul 03/05/19 14:00 03/13/19 14:31 Duoneb *Not For Prn Use* IH 1 ampul TIDRT MAYLIN Administration Allopurinol 100 mg 03/05/19 10:00 03/13/19 09:13 Zyloprim PO 100 mg DAILY MAYLIN Administration Aspirin 325 mg 03/05/19 10:00 03/13/19 09:12 Ecotrin PO 325 mg QDAY MAYLIN Administration Atorvastatin Calcium 40 mg 03/05/19 22:00 03/12/19 22:30 Lipitor PO 40 mg QHS MAYLIN Administration Cilostazol 50 mg 03/05/19 10:00 03/13/19 09:13 Pletal PO 50 mg BID MAYLIN Administration Diphenhydramine HCl 25 mg 03/12/19 11:53 Benadryl IV Q6H PRN Itching Ferrous Sulfate 325 mg 03/05/19 10:00 03/13/19 09:13 Feosol PO 325 mg DAILY MAYLIN Administration Folic Acid 1 mg 03/05/19 10:00 03/13/19 09:12 Folvite PO 1 mg QDAY MAYLIN Administration Heparin Sodium (Porcine) 5,000 unit 03/05/19 10:00 03/13/19 09:13 Heparin SUB-Q 5,000 unit Q12HR MAYLIN Administration Hydralazine HCl 10 mg 03/05/19 12:10 03/08/19 01:58 Apresoline IV 10 mg Q4HR PRN Administration SBP>170 or DBP>110 Hydralazine HCl 50 mg 03/06/19 14:00 03/13/19 05:07 Apresoline PO 50 mg Q8HR MAYLIN Administration Hydromorphone HCl 0.5 mg 03/05/19 03:59 Dilaudid IV Q3H PRN Pain , Severe (7-10) Hydroxyzine HCl 10 mg 03/12/19 16:02 Atarax PO Q6H PRN Itching Insulin Human Isoph/Insulin Regular 10 unit 03/06/19 09:30 03/13/19 09:11 Humulin 70/30 SUB-Q 10 unit BIDDIAB MAYLIN Administration Insulin Human Lispro 0 unit 03/05/19 07:30 03/13/19 12:30 Humalog SUB-Q 2 unit ACHS MAYLIN Administration Protocol Isosorbide Mononitrate 120 mg 03/05/19 10:00 03/13/19 09:16 Imdur PO 120 mg QDAY MAYLIN Administration Metoclopramide HCl 10 mg 03/05/19 03:59 Reglan IV Q6H PRN Nausea And Vomiting Metoprolol Tartrate 50 mg 03/05/19 08:00 03/13/19 09:16 Metoprolol PO 50 mg BID@0800,1700 MAYLIN Administration Nitroglycerin 0.4 mg 03/07/19 22:30 03/10/19 20:50 Nitrostat SL 0.4 mg .Q5MIN PRN Administration Chest Pain Ondansetron HCl 4 mg 03/05/19 03:59 Zofran IV Q3H PRN Nausea And Vomiting Oxycodone/Acetaminophen 1 tab 03/05/19 03:59 03/12/19 10:32 Percocet 5/325 PO 1 tab Q6H PRN Administration Pain, Moderate (4-6) Pantoprazole Sodium 40 mg 03/05/19 10:00 03/13/19 09:13 Protonix PO 40 mg QDAY MAYLIN Administration Sodium Chloride 10 ml 03/05/19 10:00 03/13/19 09:16 Sodium Chloride Flush Syringe 10 Ml IV 10 ml BID MAYLIN Administration Sodium Chloride 10 ml 03/05/19 03:59 Sodium Chloride Flush Syringe 10 Ml IV PRN PRN LINE FLUSH
--- NOTE | 2019-03-13 16:00 | Cat Scan Report ---
CT CHEST WITHOUT CONTRAST INDICATION / CLINICAL INFORMATION: preop planning for pleurex, effusion, cancer. TECHNIQUE: Axial CT images were obtained through the chest without contrast. All CT scans at this location are p erformed using CT dose reduction for ALARA by means of automated exposure control. COMPARISON: Chest CT 02/19/2019 FINDINGS: HEART: Unchanged, with mild cardiomegaly. Mass effect causes rightward shift. No significant pericard ial fluid. THORACIC AORTA: No significant abnormality. MEDIASTINUM and NANCY: Mildly prominent mediastinal nodes are again seen. No appreciable change. LUNGS: Compared to biopsy images from 03/02/2019, stable volume of left pleural fluid. The left lower lobe is now completely collapsed. Left upper lobe remains collapsed. Large cavitary mass lesion with central hypoattenuating component appears unchanged. Stable, small right pleural effusion. There is groundglass opacity and interlobular septal thickening throughout the right lung. UPPER ABDOMEN: No significant abnormality. SKELETAL SYSTEM: No significant abnormality. Diffuse body wall anasarca is noted, greatest at the flank regions. IMPRESSION: 1. Complete atelectasis of the left lung. Moderate left pleural effusion. 2. Stable, small right-sided effusion. 3. Body wall edema and mild interstitial edema in the right lung. 4. Large left lung cavitary mass without discernible change. Signer Name: Ankit Cheek MD Signed: 03/13/2019 3:56 PM Workstation Name: [id number]
--- NOTE | 2019-03-13 16:18 | Progress Note ---
Assessment and Plan 73 y/o female with squamous cell carcinoma of the lung, now with recurrent left sided effusion, larger this time. 1. Spoke with IR and they need a CT of chest noncontrast to evaluate if she will be a good candidate for placement 2. Hold on any thoracentesis unless urgent 3. Follow up heme recs 4. overall prognosis is poor Subjective Date of service: 03/13/19 Principal diagnosis: sq cell ca lung Interval history: No acute events. spoke to IR about pleurx placement Objective Vital Signs - 12hr 03/13/19 03/13/19 03/13/19 07:53 08:55 09:16 Temperature 98.2 F Pulse Rate 94 H Pulse Rate [ 93 H Anterior Bilateral Throughout] Respiratory 18 Rate Respiratory 18 Rate [Anterior Bilateral Throughout] Blood Pressure 160/56 160/56 O2 Sat by Pulse 99 93 Oximetry 03/13/19 03/13/19 14:32 14:33 Temperature Pulse Rate Pulse Rate [ 94 H Anterior Bilateral Throughout] Respiratory Rate Respiratory 18 Rate [Anterior Bilateral Throughout] Blood Pressure O2 Sat by Pulse 98 Oximetry Constitutional: no acute distress, alert Eyes: non-icteric ENT: oropharynx moist Neck: supple Ascultation: Bilateral: clear, diminished breath sounds Cardiovascular: regular rate and rhythm Gastrointestinal: normoactive bowel sounds, soft, non-tender, non-distended Integumentary: normal Extremities: no cyanosis Neurologic: normal mental status, non-focal exam Psychiatric: mood appropriate, affect normal CBC and BMP: 03/13/19 04:44 03/13/19 04:44 ABG, PT/INR, D-dimer: ABG POC ABG pH 7.375 (7.35-7.45) 03/05/19 03:29 POC ABG pCO2 42.4 (35-45) 03/05/19 03:29 POC ABG pO2 109 (80-105) H 03/05/19 03:29 POC ABG HCO3 24.7 (22-26 mml/L) 03/05/19 03:29 POC ABG Total CO2 26 (23-27mmol/L) 03/05/19 03:29 POC ABG O2 Sat 98 03/05/19 03:29 PT/INR, D-dimer PT 12.8 Sec. (12.2-14.9) 03/08/19 09:33 INR 0.97 (0.87-1.13) 03/08/19 09:33 Abnormal lab findings: Abnormal Labs 03/04/19 03/04/19 03/04/19 23:02 23:02 23:02 WBC 26.4 H RBC 3.09 L Hgb 7.7 L Hct 24.9 L MCH 25 L RDW 20.7 H Plt Count 491 H Lymph % (Auto) [place] % (Auto) Lymph # [place] # Seg Neutrophils % Seg Neuts % (Manual) 96.0 H Lymphocytes % (Manual) 1.0 L Seg Neutrophils # Seg Neutrophils # Man 25.3 H Lymphocytes # (Manual) 0.3 L Eosinophils # (Manual) 0.5 H POC ABG pO2 Sodium 135 L Chloride Carbon Dioxide BUN 37 H Creatinine Glucose 338 H POC Glucose Hemoglobin A1c Calcium 8.2 L Troponin T 0.192 H* NT-Pro-B Natriuret Pep 97438 H Albumin 2.9 L LDL Cholesterol Direct 43 L HDL Cholesterol 98 H Vancomycin Trough Crossmatch 03/05/19 03/05/19 03/05/19 03:29 05:47 07:10 WBC RBC Hgb Hct MCH RDW Plt Count Lymph % (Auto) [place] % (Auto) Lymph # [place] # Seg Neutrophils % Seg Neuts % (Manual) Lymphocytes % (Manual) Seg Neutrophils # Seg Neutrophils # Man Lymphocytes # (Manual) Eosinophils # (Manual) POC ABG pO2 109 H Sodium Chloride Carbon Dioxide BUN Creatinine Glucose POC Glucose Hemoglobin A1c 6.6 H Calcium Troponin T NT-Pro-B Natriuret Pep Albumin LDL Cholesterol Direct HDL Cholesterol Vancomycin Trough Crossmatch See Detail 03/05/19 03/05/19 03/05/19 08:44 12:35 16:29 WBC RBC Hgb Hct MCH RDW Plt Count Lymph % (Auto) [place] % (Auto) Lymph # [place] # Seg Neutrophils % Seg Neuts % (Manual) Lymphocytes % (Manual) Seg Neutrophils # Seg Neutrophils # Man Lymphocytes # (Manual) Eosinophils # (Manual) POC ABG pO2 Sodium Chloride Carbon Dioxide BUN Creatinine Glucose POC Glucose 295 H 292 H 243 H Hemoglobin A1c Calcium Troponin T NT-Pro-B Natriuret Pep Albumin LDL Cholesterol Direct HDL Cholesterol Vancomycin Trough Crossmatch 03/05/19 03/06/19 03/06/19 21:52 05:57 05:57 WBC 15.6 H RBC 3.45 L Hgb 9.0 L Hct 28.3 L MCH 26 L RDW 20.6 H Plt Count Lymph % (Auto) [place] % (Auto) Lymph # [place] # Seg Neutrophils % Seg Neuts % (Manual) 97.0 H Lymphocytes % (Manual) 3.0 L Seg Neutrophils # Seg Neutrophils # Man 15.1 H Lymphocytes # (Manual) 0.5 L Eosinophils # (Manual) POC ABG pO2 Sodium 134 L Chloride Carbon Dioxide 21 L BUN 38 H Creatinine Glucose 342 H POC Glucose 266 H Hemoglobin A1c Calcium 8.3 L Troponin T NT-Pro-B Natriuret Pep Albumin 2.9 L LDL Cholesterol Direct HDL Cholesterol Vancomycin Trough Crossmatch 03/06/19 03/06/19 03/06/19 08:37 10:28 14:59 WBC RBC Hgb Hct MCH RDW Plt Count Lymph % (Auto) [place] % (Auto) Lymph # [place] # Seg Neutrophils % Seg Neuts % (Manual) Lymphocytes % (Manual) Seg Neutrophils # Seg Neutrophils # Man Lymphocytes # (Manual) Eosinophils # (Manual) POC ABG pO2 Sodium Chloride Carbon Dioxide BUN Creatinine Glucose POC Glucose 386 H 403 H 212 H Hemoglobin A1c Calcium Troponin T NT-Pro-B Natriuret Pep Albumin LDL Cholesterol Direct HDL Cholesterol Vancomycin Trough Crossmatch 03/06/19 03/07/19 03/07/19 21:00 05:12 08:07 WBC 15.3 H RBC 3.12 L Hgb 8.2 L Hct 25.6 L MCH 26 L RDW 20.7 H Plt Count Lymph % (Auto) [place] % (Auto) Lymph # [place] # Seg Neutrophils % Seg Neuts % (Manual) Lymphocytes % (Manual) Seg Neutrophils # Seg Neutrophils # Man Lymphocytes # (Manual) Eosinophils # (Manual) POC ABG pO2 Sodium Chloride Carbon Dioxide BUN Creatinine Glucose POC Glucose 195 H 293 H Hemoglobin A1c Calcium Troponin T NT-Pro-B Natriuret Pep Albumin LDL Cholesterol Direct HDL Cholesterol Vancomycin Trough Crossmatch 03/07/19 03/07/19 03/07/19 12:02 17:02 21:12 WBC RBC Hgb Hct MCH RDW Plt Count Lymph % (Auto) [place] % (Auto) Lymph # [place] # Seg Neutrophils % Seg Neuts % (Manual) Lymphocytes % (Manual) Seg Neutrophils # Seg Neutrophils # Man Lymphocytes # (Manual) Eosinophils # (Manual) POC ABG pO2 Sodium Chloride Carbon Dioxide BUN Creatinine Glucose POC Glucose 330 H 282 H 317 H Hemoglobin A1c Calcium Troponin T NT-Pro-B Natriuret Pep Albumin LDL Cholesterol Direct HDL Cholesterol Vancomycin Trough Crossmatch 03/08/19 03/08/19 03/08/19 08:31 11:00 12:02 WBC RBC Hgb Hct MCH RDW Plt Count Lymph % (Auto) [place] % (Auto) Lymph # [place] # Seg Neutrophils % Seg Neuts % (Manual) Lymphocytes % (Manual) Seg Neutrophils # Seg Neutrophils # Man Lymphocytes # (Manual) Eosinophils # (Manual) POC ABG pO2 Sodium Chloride Carbon Dioxide BUN Creatinine Glucose POC Glucose 236 H 301 H Hemoglobin A1c Calcium Troponin T NT-Pro-B Natriuret Pep Albumin LDL Cholesterol Direct HDL Cholesterol Vancomycin Trough 21.9 H Crossmatch 03/08/19 03/08/19 03/08/19 16:07 17:07 22:45 WBC RBC Hgb Hct MCH RDW Plt Count Lymph % (Auto) [place] % (Auto) Lymph # [place] # Seg Neutrophils % Seg Neuts % (Manual) Lymphocytes % (Manual) Seg Neutrophils # Seg Neutrophils # Man Lymphocytes # (Manual) Eosinophils # (Manual) POC ABG pO2 Sodium 131 L Chloride Carbon Dioxide 20 L BUN 49 H Creatinine 1.3 H Glucose 289 H POC Glucose 296 H 192 H Hemoglobin A1c Calcium Troponin T NT-Pro-B Natriuret Pep Albumin LDL Cholesterol Direct HDL Cholesterol Vancomycin Trough Crossmatch 03/09/19 03/09/19 03/09/19 08:31 11:01 12:11 WBC RBC Hgb Hct MCH RDW Plt Count Lymph % (Auto) [place] % (Auto) Lymph # [place] # Seg Neutrophils % Seg Neuts % (Manual) Lymphocytes % (Manual) Seg Neutrophils # Seg Neutrophils # Man Lymphocytes # (Manual) Eosinophils # (Manual) POC ABG pO2 Sodium Chloride Carbon Dioxide BUN Creatinine Glucose POC Glucose 60 L 183 H 219 H Hemoglobin A1c Calcium Troponin T NT-Pro-B Natriuret Pep Albumin LDL Cholesterol Direct HDL Cholesterol Vancomycin Trough Crossmatch 03/09/19 03/09/19 03/10/19 16:15 21:08 04:53 WBC RBC Hgb Hct MCH RDW Plt Count Lymph % (Auto) [place] % (Auto) Lymph # [place] # Seg Neutrophils % Seg Neuts % (Manual) Lymphocytes % (Manual) Seg Neutrophils # Seg Neutrophils # Man Lymphocytes # (Manual) Eosinophils # (Manual) POC ABG pO2 Sodium 133 L Chloride Carbon Dioxide 19 L BUN 57 H Creatinine 1.4 H Glucose POC Glucose 202 H 115 H Hemoglobin A1c Calcium 8.1 L Troponin T NT-Pro-B Natriuret Pep Albumin LDL Cholesterol Direct HDL Cholesterol Vancomycin Trough Crossmatch 03/10/19 03/10/19 03/10/19 10:19 11:32 18:24 WBC RBC Hgb Hct MCH RDW Plt Count Lymph % (Auto) [place] % (Auto) Lymph # [place] # Seg Neutrophils % Seg Neuts % (Manual) Lymphocytes % (Manual) Seg Neutrophils # Seg Neutrophils # Man Lymphocytes # (Manual) Eosinophils # (Manual) POC ABG pO2 Sodium Chloride Carbon Dioxide BUN Creatinine Glucose POC Glucose 151 H 146 H 106 H Hemoglobin A1c Calcium Troponin T NT-Pro-B Natriuret Pep Albumin LDL Cholesterol Direct HDL Cholesterol Vancomycin Trough Crossmatch 03/11/19 03/11/19 03/11/19 04:34 11:14 16:29 WBC RBC Hgb Hct MCH RDW Plt Count Lymph % (Auto) [place] % (Auto) Lymph # [place] # Seg Neutrophils % Seg Neuts % (Manual) Lymphocytes % (Manual) Seg Neutrophils # Seg Neutrophils # Man Lymphocytes # (Manual) Eosinophils # (Manual) POC ABG pO2 Sodium 131 L Chloride Carbon Dioxide 20 L BUN 57 H Creatinine 1.7 H Glucose 189 H POC Glucose 158 H 119 H Hemoglobin A1c Calcium 7.7 L Troponin T NT-Pro-B Natriuret Pep Albumin LDL Cholesterol Direct HDL Cholesterol Vancomycin Trough Crossmatch 03/11/19 03/12/19 03/12/19 20:48 05:41 05:41 WBC 16.1 H RBC 3.24 L Hgb 8.6 L Hct 26.6 L MCH 27 L RDW 20.8 H Plt Count Lymph % (Auto) 5.4 L [place] % (Auto) 7.4 H Lymph # 0.9 L [place] # 1.2 H Seg Neutrophils % 83.9 H Seg Neuts % (Manual) Lymphocytes % (Manual) Seg Neutrophils # 13.5 H Seg Neutrophils # Man Lymphocytes # (Manual) Eosinophils # (Manual) POC ABG pO2 Sodium 131 L Chloride 94.2 L Carbon Dioxide 17 L BUN 58 H Creatinine 1.7 H Glucose 146 H POC Glucose 258 H Hemoglobin A1c Calcium 7.9 L Troponin T NT-Pro-B Natriuret Pep Albumin LDL Cholesterol Direct HDL Cholesterol Vancomycin Trough Crossmatch 03/12/19 03/12/19 03/12/19 09:01 12:51 15:32 WBC RBC Hgb Hct MCH RDW Plt Count Lymph % (Auto) [place] % (Auto) Lymph # [place] # Seg Neutrophils % Seg Neuts % (Manual) Lymphocytes % (Manual) Seg Neutrophils # Seg Neutrophils # Man Lymphocytes # (Manual) Eosinophils # (Manual) POC ABG pO2 Sodium Chloride Carbon Dioxide BUN Creatinine Glucose POC Glucose 135 H 191 H 171 H Hemoglobin A1c Calcium Troponin T NT-Pro-B Natriuret Pep Albumin LDL Cholesterol Direct HDL Cholesterol Vancomycin Trough Crossmatch 03/12/19 03/13/19 03/13/19 20:27 04:44 04:44 WBC 13.0 H RBC 3.29 L Hgb 8.8 L Hct 26.9 L MCH 27 L RDW 20.8 H Plt Count Lymph % (Auto) 6.6 L [place] % (Auto) 8.2 H Lymph # 0.9 L [place] # 1.1 H Seg Neutrophils % 81.5 H Seg Neuts % (Manual) Lymphocytes % (Manual) Seg Neutrophils # 10.6 H Seg Neutrophils # Man Lymphocytes # (Manual) Eosinophils # (Manual) POC ABG pO2 Sodium 131 L Chloride 97.9 L Carbon Dioxide BUN 56 H Creatinine 1.8 H Glucose 148 H POC Glucose 203 H Hemoglobin A1c Calcium 8.2 L Troponin T NT-Pro-B Natriuret Pep Albumin LDL Cholesterol Direct HDL Cholesterol Vancomycin Trough Crossmatch 03/13/19 03/13/19 09:10 12:24 WBC RBC Hgb Hct MCH RDW Plt Count Lymph % (Auto) [place] % (Auto) Lymph # [place] # Seg Neutrophils % Seg Neuts % (Manual) Lymphocytes % (Manual) Seg Neutrophils # Seg Neutrophils # Man Lymphocytes # (Manual) Eosinophils # (Manual) POC ABG pO2 Sodium Chloride Carbon Dioxide BUN Creatinine Glucose POC Glucose 186 H 150 H Hemoglobin A1c Calcium Troponin T NT-Pro-B Natriuret Pep Albumin LDL Cholesterol Direct HDL Cholesterol Vancomycin Trough Crossmatch
--- NOTE | 2019-03-13 16:44 | Progress Note ---
Assessment and Plan Assessment and plan: Acute hypoxic respiratory failure Possibly secondary to underlying pneumonia and malignancy, left pleural effusion and CHF exacerbation. She has been placed on BiPAP - now weaned off s/p thoracentesis on 02/19 drained 700cc fluid, 2-D echo showed EF of 30-35% Anemia s/p 1 Unit PRBC transfused Lung cancer on left from pathology Left lung cavitating lung lesion and L pleural effusion: The patient also been treated for cavitary pneumonia Pleural fluid 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 Followed by Pulmonary. S/p CT-guided lung biopsy- path shows lung cancer Left pleural effusion Pulm following For thoracentesis Friday family agrees to PleurX catheter placement Acute on chronic systolic CHF We will continue patient on routine home medications. Will monitor daily weight monitor input and output. 2-D echo showed EF of 30-35%, we'll continue Lasix Cardiology following. Stress test done 02/23 abnormal. Was scheduled for cardiac cath but canceled because of anemia NEELIMA, acute on CKD. Nephrology following DVT prophylaxis: Heparin Full code status To follow up with Dr. Franco in 1 week for recently diagnosed lung cancer History Interval history: Shortness of breath Hospitalist Physical - Physical exam Narrative exam: Gen: Not in acute distress, lying in bed, HEENT: Normocephalic, atraumatic Neck: supple, no JVD Heart: S1 and S2 reg, no murmurs, rubs or gallop Lungs: Decreased breath sounds on left, Abd: soft, non tender, non distended, normal BS, Ext: No edema, no clubbing, no cyanosis Neuro: Awake, alert, oriented X 3, no focal neurological signs - Constitutional Vitals: Temp Pulse Resp BP Pulse Ox 98.2 F 94 H 18 160/56 98 03/13/19 07:53 03/13/19 14:32 03/13/19 14:32 03/13/19 09:16 03/13/19 14:33 General appearance: Present: no acute distress Results - Labs CBC & Chem 7: 03/13/19 04:44 03/14/19 12:08 Labs: Laboratory Last Values WBC 13.0 K/mm3 (4.5-11.0) H 03/13/19 04:44 RBC 3.29 M/mm3 (3.65-5.03) L 03/13/19 04:44 Hgb 8.8 gm/dl (10.1-14.3) L 03/13/19 04:44 Hct 26.9 % (30.3-42.9) L 03/13/19 04:44 MCV 82 fl (79-97) 03/13/19 04:44 MCH 27 pg (28-32) L 03/13/19 04:44 MCHC 33 % (30-34) 03/13/19 04:44 RDW 20.8 % (13.2-15.2) H 03/13/19 04:44 Plt Count 346 K/mm3 (140-440) 03/13/19 04:44 Lymph % (Auto) 6.6 % (13.4-35.0) L 03/13/19 04:44 [place] % (Auto) 8.2 % (0.0-7.3) H 03/13/19 04:44 Eos % (Auto) 3.4 % (0.0-4.3) 03/13/19 04:44 Baso % (Auto) 0.3 % (0.0-1.8) 03/13/19 04:44 Lymph # 0.9 K/mm3 (1.2-5.4) L 03/13/19 04:44 [place] # 1.1 K/mm3 (0.0-0.8) H 03/13/19 04:44 Eos # 0.4 K/mm3 (0.0-0.4) 03/13/19 04:44 Baso # 0.0 K/mm3 (0.0-0.1) 03/13/19 04:44 Add Manual Diff Complete 03/06/19 05:57 Total Counted 100 03/06/19 05:57 Seg Neutrophils % 81.5 % (40.0-70.0) H 03/13/19 04:44 Seg Neuts % (Manual) 97.0 % (40.0-70.0) H 03/06/19 05:57 Band Neutrophils % 0 % 03/06/19 05:57 Lymphocytes % (Manual) 3.0 % (13.4-35.0) L 03/06/19 05:57 Reactive Lymphs % (Man) 0 % 03/06/19 05:57 Monocytes % (Manual) 0 % (0.0-7.3) 03/06/19 05:57 Eosinophils % (Manual) 0 % (0.0-4.3) 03/06/19 05:57 Basophils % (Manual) 0 % (0.0-1.8) 03/06/19 05:57 Metamyelocytes % 0 % 03/06/19 05:57 Myelocytes % 0 % 03/06/19 05:57 Promyelocytes % 0 % 03/06/19 05:57 Blast Cells % 0 % 03/06/19 05:57 Nucleated RBC % Not Reportable 03/06/19 05:57 Seg Neutrophils # 10.6 K/mm3 (1.8-7.7) H 03/13/19 04:44 Seg Neutrophils # Man 15.1 K/mm3 (1.8-7.7) H 03/06/19 05:57 Band Neutrophils # 0.0 K/mm3 03/06/19 05:57 Lymphocytes # (Manual) 0.5 K/mm3 (1.2-5.4) L 03/06/19 05:57 Abs React Lymphs (Man) 0.0 K/mm3 03/06/19 05:57 Monocytes # (Manual) 0.0 K/mm3 (0.0-0.8) 03/06/19 05:57 Eosinophils # (Manual) 0.0 K/mm3 (0.0-0.4) 03/06/19 05:57 Basophils # (Manual) 0.0 K/mm3 (0.0-0.1) 03/06/19 05:57 Metamyelocytes # 0.0 K/mm3 03/06/19 05:57 Myelocytes # 0.0 K/mm3 03/06/19 05:57 Promyelocytes # 0.0 K/mm3 03/06/19 05:57 Blast Cells # 0.0 K/mm3 03/06/19 05:57 WBC Morphology Not Reportable 03/06/19 05:57 Hypersegmented Neuts Not Reportable 03/06/19 05:57 Hyposegmented Neuts Not Reportable 03/06/19 05:57 Hypogranular Neuts Not Reportable 03/06/19 05:57 Smudge Cells Not Reportable 03/06/19 05:57 Toxic Granulation Not Reportable 03/06/19 05:57 Toxic Vacuolation Not Reportable 03/06/19 05:57 Dohle Bodies Not Reportable 03/06/19 05:57 Pelger-Huet Anomaly Not Reportable 03/06/19 05:57 Jessica Rods Not Reportable 03/06/19 05:57 Platelet Estimate Cons 03/06/19 05:57 Clumped Platelets Not Reportable 03/06/19 05:57 Plt Clumps, EDTA Not Reportable 03/06/19 05:57 Large Platelets Few 03/06/19 05:57 Giant Platelets Not Reportable 03/06/19 05:57 Platelet Satelliting Not Reportable 03/06/19 05:57 Plt Morphology Comment Not Reportable 03/06/19 05:57 RBC Morphology Not Reportable 03/06/19 05:57 Dimorphic RBCs Not Reportable 03/06/19 05:57 Polychromasia Not Reportable 03/06/19 05:57 Hypochromasia 1+ 03/06/19 05:57 Poikilocytosis Not Reportable 03/06/19 05:57 Anisocytosis Not Reportable 03/06/19 05:57 Microcytosis Not Reportable 03/06/19 05:57 Macrocytosis Not Reportable 03/06/19 05:57 Spherocytes Few 03/06/19 05:57 Pappenheimer Bodies Not Reportable 03/06/19 05:57 Sickle Cells Not Reportable 03/06/19 05:57 Target Cells 1+ 03/06/19 05:57 Tear Drop Cells Not Reportable 03/06/19 05:57 Ovalocytes Not Reportable 03/06/19 05:57 Helmet Cells Not Reportable 03/06/19 05:57 Ling-Benham Bodies Not Reportable 03/06/19 05:57 Fine Rings Not Reportable 03/06/19 05:57 Lora Cells Not Reportable 03/06/19 05:57 Bite Cells Not Reportable 03/06/19 05:57 Crenated Cell Not Reportable 03/06/19 05:57 Elliptocytes Not Reportable 03/06/19 05:57 Acanthocytes (Spur) Not Reportable 03/06/19 05:57 Rouleaux Not Reportable 03/06/19 05:57 Hemoglobin C Crystals Not Reportable 03/06/19 05:57 Schistocytes Not Reportable 03/06/19 05:57 Malaria parasites Not Reportable 03/06/19 05:57 Galen Bodies Not Reportable 03/06/19 05:57 Hem Pathologist Commnt No 03/06/19 05:57 PT 12.8 Sec. (12.2-14.9) 03/08/19 09:33 INR 0.97 (0.87-1.13) 03/08/19 09:33 POC ABG pH 7.375 (7.35-7.45) 03/05/19 03:29 POC ABG pCO2 42.4 (35-45) 03/05/19 03:29 POC ABG pO2 109 (80-105) H 03/05/19 03:29 POC ABG HCO3 24.7 (22-26 mml/L) 03/05/19 03:29 POC ABG Total CO2 26 (23-27mmol/L) 03/05/19 03:29 POC ABG O2 Sat 98 03/05/19 03:29 POC ABG Base Excess 0 ((-2) - (+3)mmol/L) 03/05/19 03:29 FiO2 40 % 03/05/19 03:29 Sodium 131 mmol/L (137-145) L 03/13/19 04:44 Potassium 4.7 mmol/L (3.6-5.0) 03/13/19 04:44 Chloride 97.9 mmol/L (98-107) L 03/13/19 04:44 Carbon Dioxide 22 mmol/L (22-30) 03/13/19 04:44 Anion Gap 16 mmol/L 03/13/19 04:44 BUN 56 mg/dL (7-17) H 03/13/19 04:44 Creatinine 1.8 mg/dL (0.7-1.2) H 03/13/19 04:44 Estimated GFR 33 ml/min 03/13/19 04:44 BUN/Creatinine Ratio 31 % 03/13/19 04:44 Glucose 148 mg/dL (65-100) H 03/13/19 04:44 POC Glucose 150 (70-105) H 03/13/19 12:24 Hemoglobin A1c 6.6 % (4-6) H 03/05/19 05:47 Lactic Acid 1.20 mmol/L (0.7-2.0) 03/05/19 05:47 Calcium 8.2 mg/dL (8.4-10.2) L 03/13/19 04:44 Magnesium 2.00 mg/dL (1.7-2.3) 03/08/19 17:07 Total Bilirubin 0.20 mg/dL (0.1-1.2) 03/06/19 05:57 AST 20 units/L (5-40) 03/06/19 05:57 ALT 22 units/L (7-56) 03/06/19 05:57 Alkaline Phosphatase 80 units/L (35-129) 03/06/19 05:57 Troponin T 0.192 ng/mL (0.00-0.029) H* 03/04/19 23:02 NT-Pro-B Natriuret Pep 23386 pg/mL (0-900) H 03/04/19 23:02 Total Protein 6.7 g/dL (6.3-8.2) 03/06/19 05:57 Albumin 2.9 g/dL (3.9-5) L 03/06/19 05:57 Albumin/Globulin Ratio 0.8 % 03/06/19 05:57 Triglycerides 96 mg/dL (2-149) 03/04/19 23:02 Cholesterol 155 mg/dL (50-199) 03/04/19 23:02 LDL Cholesterol Direct 43 mg/dL (50-130) L 03/04/19 23:02 HDL Cholesterol 98 mg/dL (40-59) H 03/04/19 23:02 Cholesterol/HDL Ratio 1.58 % 03/04/19 23:02 Vancomycin Trough 21.9 ug/mL (5.0-20.0) H 03/08/19 11:00 Blood Type O POSITIVE 03/05/19 07:10 Antibody Screen Negative 03/05/19 07:10 Crossmatch See Detail 03/05/19 07:10 Active Medications - Current Medications Current Medications: Generic Name Dose Route Start Last Admin Trade Name Freq PRN Reason Stop Dose Admin Acetaminophen 650 mg 03/05/19 03:59 03/12/19 15:17 Tylenol PO 650 mg Q4H PRN Administration Pain MILD(1-3)/Fever >100.5/BRENNER Albuterol 2.5 mg 03/05/19 04:20 03/08/19 01:15 Proventil IH 2.5 mg Q3HRT PRN Administration Shortness Of Breath Albuterol/Ipratropium 1 ampul 03/05/19 14:00 03/13/19 14:31 Duoneb *Not For Prn Use* IH 1 ampul TIDRT MAYLIN Administration Allopurinol 100 mg 03/05/19 10:00 03/13/19 09:13 Zyloprim PO 100 mg DAILY MAYLIN Administration Aspirin 325 mg 03/05/19 10:00 03/13/19 09:12 Ecotrin PO 325 mg QDAY MAYLIN Administration Atorvastatin Calcium 40 mg 03/05/19 22:00 03/12/19 22:30 Lipitor PO 40 mg QHS MAYLIN Administration Cilostazol 50 mg 03/05/19 10:00 03/13/19 09:13 Pletal PO 50 mg BID MAYLIN Administration Diphenhydramine HCl 25 mg 03/12/19 11:53 Benadryl IV Q6H PRN Itching Ferrous Sulfate 325 mg 03/05/19 10:00 03/13/19 09:13 Feosol PO 325 mg DAILY MAYLIN Administration Folic Acid 1 mg 03/05/19 10:00 03/13/19 09:12 Folvite PO 1 mg QDAY MAYLIN Administration Heparin Sodium (Porcine) 5,000 unit 03/05/19 10:00 03/13/19 09:13 Heparin SUB-Q 5,000 unit Q12HR MAYLIN Administration Hydralazine HCl 10 mg 03/05/19 12:10 03/08/19 01:58 Apresoline IV 10 mg Q4HR PRN Administration SBP>170 or DBP>110 Hydralazine HCl 50 mg 03/06/19 14:00 03/13/19 05:07 Apresoline PO 50 mg Q8HR MAYLIN Administration Hydromorphone HCl 0.5 mg 03/05/19 03:59 Dilaudid IV Q3H PRN Pain , Severe (7-10) Hydroxyzine HCl 10 mg 03/12/19 16:02 Atarax PO Q6H PRN Itching Insulin Human Isoph/Insulin Regular 10 unit 03/06/19 09:30 03/13/19 09:11 Humulin 70/30 SUB-Q 10 unit BIDDIAB MAYLIN Administration Insulin Human Lispro 0 unit 03/05/19 07:30 03/13/19 12:30 Humalog SUB-Q 2 unit ACHS MAYLIN Administration Protocol Isosorbide Mononitrate 120 mg 03/05/19 10:00 03/13/19 09:16 Imdur PO 120 mg QDAY MAYLIN Administration Metoclopramide HCl 10 mg 03/05/19 03:59 Reglan IV Q6H PRN Nausea And Vomiting Metoprolol Tartrate 50 mg 03/05/19 08:00 03/13/19 09:16 Metoprolol PO 50 mg BID@0800,1700 MAYLIN Administration Nitroglycerin 0.4 mg 03/07/19 22:30 03/10/19 20:50 Nitrostat SL 0.4 mg .Q5MIN PRN Administration Chest Pain Ondansetron HCl 4 mg 03/05/19 03:59 Zofran IV Q3H PRN Nausea And Vomiting Oxycodone/Acetaminophen 1 tab 03/05/19 03:59 03/12/19 10:32 Percocet 5/325 PO 1 tab Q6H PRN Administration Pain, Moderate (4-6) Pantoprazole Sodium 40 mg 03/05/19 10:00 03/13/19 09:13 Protonix PO 40 mg QDAY MAYLIN Administration Sodium Chloride 10 ml 03/05/19 10:00 03/13/19 09:16 Sodium Chloride Flush Syringe 10 Ml IV 10 ml BID MAYLIN Administration Sodium Chloride 10 ml 03/05/19 03:59 Sodium Chloride Flush Syringe 10 Ml IV PRN PRN LINE FLUSH Nutrition/Malnutrition Assess - Dietary Evaluation Nutrition/Malnutrition Findings: Nutrition Notes Start: 03/12/19 12:38 Freq: Status: Active Protocol: Document 03/12/19 12:38 CT (Rec: 03/12/19 12:48 CT [id number]) Co-Sign 03/12/19 12:38 LP Nutrition Notes Need for Assessment generated from: LOS Initial or Follow up Assessment Current Diagnosis Acute Kidney Injury,COPD, Coronary Artery Disease, Diabetes,Sepsis,Hypertension, Heart Failure,Hyperlipidemia Other Pertinent Diagnosis Bilat lung carcinoma, Gout, GERD Current Diet Cardiac/consistent CHO Labs/Tests Na 131 BUN 58 Creatinine 1.7 Glu 146 Pertinent Medications Humalog Lasix Height 5 ft 4 in Weight 77.5 kg Usual Body Weight 63.957 kg Gordon Body Weight (kg) 54.54 BMI 29.3 Intake Prior to Admission Fair Weight Status Obese Subjective/Other Information LOS screen. Pt stated that she has a good appetite now. Pt has issues chewing, mechanical soft diet modificaiton was ordered. Pt stated that she ate about half of her breakfast. Per physical assessment pt has bilat weak welt rander strength, 2+ pitting edema, and a skin risk of 16 Burn Absent Trauma Absent GI Symptoms None Difficulty In Chewing Current % PO Fair (50-74%) Minimum of two criteria Yes Fluid Accumulation Moderate to Severe (severe) Reduced Application Systems Administrator Strength Measurably Reduced (severe) #1 Nutrition Diagnosis Malnutrition Etiology multiple chronic illnesses As Evidenced by Signs and Symptoms +2 pitting edema, bilat reduced welt rander strength Is patient on ventilator? No Is Patient Ambulatory and/or Out of Bed Yes REE-([facility]-ambulatory/OOB) [ 1632.500 NUTR.[id number]] Calculation Used for Recommendations [facility] Additional Notes Protein needs: 79-99 g/kg/day (1.2-1.5 g/kg/day AdBW 66kg) Fluid needs: per MD Nutrition Intervention Change Diet Order: Add mechanical soft modification to cardiac/ consistent CHO Add Supplement/Snack (indicate name/kcal Add Glucerna Daily /protein ) Provides kCal: 220 Provides Protein (gm) 10 Goal #1 Meet >75% of energy and protein needs Anticipated Discharge Needs: Mechanical soft cardiac/ consistent CHO Follow-Up By: 03/16/19 Additional Comments Follow up for PO intake and ONS need
[2019-03-14] MEDS: hydrALAZINE 25 MG TAB PO SCH ×3 (05:14→23:46)
[2019-03-14] MEDS: oxyCODONE /ACETAMINOPHEN 5-325MG TAB PO PRN (05:14)
[2019-03-14] MEDS: INSULIN LISPRO 100 UNIT/ML SUB-Q SCH ×4 (08:16→22:30)
[2019-03-14] MEDS: IPRATROPIUM/ALBUTEROL SULFATE 3 ML AMPUL.NEB IH SCH ×3 (08:37→22:51)
[2019-03-14] MEDS: METOPROLOL TARTRATE 50 MG TAB PO SCH ×2 (09:58→17:02)
[2019-03-14] MEDS: ASPIRIN EC 325 MG TAB PO SCH (09:59)
[2019-03-14] MEDS: FERROUS SULFATE 325 MG TAB PO SCH (09:59)
[2019-03-14] MEDS: allopurinoL 100 MG TAB PO SCH (09:59)
[2019-03-14] MEDS: FOLIC ACID 1 MG TAB PO SCH (09:59)
[2019-03-14] MEDS: PANTOPRAZOLE 40 MG TAB PO SCH (09:59)
[2019-03-14] MEDS: CILOSTAZOL 100 MG TAB PO SCH ×2 (09:59→23:46)
[2019-03-14] MEDS: HEPARIN 5,000 UNIT/1 ML VIAL SUB-Q SCH ×2 (10:02→23:45)
[2019-03-14] MEDS: INSULIN NPH/REGULAR 70/30 INJ SUB-Q SCH ×2 (10:04→17:53)
[2019-03-14 12:43] LABS: Calcium 8.2 mg/dL (8.4-10.2)
--- NOTE | 2019-03-14 13:09 | Progress Note ---
Assessment and Plan Assessment and plan: Acute hypoxic respiratory failure Possibly secondary to underlying pneumonia and malignancy, left pleural effusion and CHF exacerbation. She has been placed on BiPAP - now weaned off s/p thoracentesis on 02/19 drained 700cc fluid, 2-D echo showed EF of 30-35% Anemia s/p 1 Unit PRBC transfused on 03/05 Lung cancer on left from pathology Left lung cavitating lung lesion and L pleural effusion: The patient also been treated for cavitary pneumonia Pleural fluid 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 Followed by Pulmonary. S/p CT-guided lung biopsy- path shows lung cancer Left pleural effusion Pulm following For thoracentesis Friday family agrees to PleurX catheter placement Acute on chronic systolic CHF We will continue patient on routine home medications. Will monitor daily weight monitor input and output. 2-D echo showed EF of 30-35%, we'll continue Lasix Cardiology following. Stress test done 02/23 abnormal. Was scheduled for cardiac cath but canceled because of anemia NEELIMA, acute on CKD. Nephrology following DVT prophylaxis: Heparin Full code status To follow up with Dr. Franco in 1 week for recently diagnosed lung cancer Discussed with patient and daughter at bedside History Interval history: Shortness of breath persists No chest pain Hospitalist Physical - Physical exam Narrative exam: Gen: Not in acute distress, lying in bed, HEENT: Normocephalic, atraumatic Neck: supple, no JVD Heart: S1 and S2 reg, no murmurs, rubs or gallop Lungs: Decreased breath sounds on left, Abd: soft, non tender, non distended, normal BS, Ext: No edema, no clubbing, no cyanosis Neuro: Awake, alert, oriented X 3, no focal neurological signs - Constitutional Vitals: Temp Pulse Resp BP Pulse Ox 97.7 F 98 H 18 163/59 98 03/14/19 03:59 03/14/19 10:00 03/14/19 12:00 03/14/19 05:14 03/14/19 03:59 General appearance: Present: no acute distress Results - Labs CBC & Chem 7: 03/13/19 04:44 03/14/19 12:08 Labs: Laboratory Last Values WBC 13.0 K/mm3 (4.5-11.0) H 03/13/19 04:44 RBC 3.29 M/mm3 (3.65-5.03) L 03/13/19 04:44 Hgb 8.8 gm/dl (10.1-14.3) L 03/13/19 04:44 Hct 26.9 % (30.3-42.9) L 03/13/19 04:44 MCV 82 fl (79-97) 03/13/19 04:44 MCH 27 pg (28-32) L 03/13/19 04:44 MCHC 33 % (30-34) 03/13/19 04:44 RDW 20.8 % (13.2-15.2) H 03/13/19 04:44 Plt Count 346 K/mm3 (140-440) 03/13/19 04:44 Lymph % (Auto) 6.6 % (13.4-35.0) L 03/13/19 04:44 Terrell % (Auto) 8.2 % (0.0-7.3) H 03/13/19 04:44 Eos % (Auto) 3.4 % (0.0-4.3) 03/13/19 04:44 Baso % (Auto) 0.3 % (0.0-1.8) 03/13/19 04:44 Lymph # 0.9 K/mm3 (1.2-5.4) L 03/13/19 04:44 Terrell # 1.1 K/mm3 (0.0-0.8) H 03/13/19 04:44 Eos # 0.4 K/mm3 (0.0-0.4) 03/13/19 04:44 Baso # 0.0 K/mm3 (0.0-0.1) 03/13/19 04:44 Add Manual Diff Complete 03/06/19 05:57 Total Counted 100 03/06/19 05:57 Seg Neutrophils % 81.5 % (40.0-70.0) H 03/13/19 04:44 Seg Neuts % (Manual) 97.0 % (40.0-70.0) H 03/06/19 05:57 Band Neutrophils % 0 % 03/06/19 05:57 Lymphocytes % (Manual) 3.0 % (13.4-35.0) L 03/06/19 05:57 Reactive Lymphs % (Man) 0 % 03/06/19 05:57 Monocytes % (Manual) 0 % (0.0-7.3) 03/06/19 05:57 Eosinophils % (Manual) 0 % (0.0-4.3) 03/06/19 05:57 Basophils % (Manual) 0 % (0.0-1.8) 03/06/19 05:57 Metamyelocytes % 0 % 03/06/19 05:57 Myelocytes % 0 % 03/06/19 05:57 Promyelocytes % 0 % 03/06/19 05:57 Blast Cells % 0 % 03/06/19 05:57 Nucleated RBC % Not Reportable 03/06/19 05:57 Seg Neutrophils # 10.6 K/mm3 (1.8-7.7) H 03/13/19 04:44 Seg Neutrophils # Man 15.1 K/mm3 (1.8-7.7) H 03/06/19 05:57 Band Neutrophils # 0.0 K/mm3 03/06/19 05:57 Lymphocytes # (Manual) 0.5 K/mm3 (1.2-5.4) L 03/06/19 05:57 Abs React Lymphs (Man) 0.0 K/mm3 03/06/19 05:57 Monocytes # (Manual) 0.0 K/mm3 (0.0-0.8) 03/06/19 05:57 Eosinophils # (Manual) 0.0 K/mm3 (0.0-0.4) 03/06/19 05:57 Basophils # (Manual) 0.0 K/mm3 (0.0-0.1) 03/06/19 05:57 Metamyelocytes # 0.0 K/mm3 03/06/19 05:57 Myelocytes # 0.0 K/mm3 03/06/19 05:57 Promyelocytes # 0.0 K/mm3 03/06/19 05:57 Blast Cells # 0.0 K/mm3 03/06/19 05:57 WBC Morphology Not Reportable 03/06/19 05:57 Hypersegmented Neuts Not Reportable 03/06/19 05:57 Hyposegmented Neuts Not Reportable 03/06/19 05:57 Hypogranular Neuts Not Reportable 03/06/19 05:57 Smudge Cells Not Reportable 03/06/19 05:57 Toxic Granulation Not Reportable 03/06/19 05:57 Toxic Vacuolation Not Reportable 03/06/19 05:57 Dohle Bodies Not Reportable 03/06/19 05:57 Pelger-Huet Anomaly Not Reportable 03/06/19 05:57 Jessica Rods Not Reportable 03/06/19 05:57 Platelet Estimate Cons 03/06/19 05:57 Clumped Platelets Not Reportable 03/06/19 05:57 Plt Clumps, EDTA Not Reportable 03/06/19 05:57 Large Platelets Few 03/06/19 05:57 Giant Platelets Not Reportable 03/06/19 05:57 Platelet Satelliting Not Reportable 03/06/19 05:57 Plt Morphology Comment Not Reportable 03/06/19 05:57 RBC Morphology Not Reportable 03/06/19 05:57 Dimorphic RBCs Not Reportable 03/06/19 05:57 Polychromasia Not Reportable 03/06/19 05:57 Hypochromasia 1+ 03/06/19 05:57 Poikilocytosis Not Reportable 03/06/19 05:57 Anisocytosis Not Reportable 03/06/19 05:57 Microcytosis Not Reportable 03/06/19 05:57 Macrocytosis Not Reportable 03/06/19 05:57 Spherocytes Few 03/06/19 05:57 Pappenheimer Bodies Not Reportable 03/06/19 05:57 Sickle Cells Not Reportable 03/06/19 05:57 Target Cells 1+ 03/06/19 05:57 Tear Drop Cells Not Reportable 03/06/19 05:57 Ovalocytes Not Reportable 03/06/19 05:57 Helmet Cells Not Reportable 03/06/19 05:57 Ling-Dickey Bodies Not Reportable 03/06/19 05:57 Pelham Rings Not Reportable 03/06/19 05:57 Lora Cells Not Reportable 03/06/19 05:57 Bite Cells Not Reportable 03/06/19 05:57 Crenated Cell Not Reportable 03/06/19 05:57 Elliptocytes Not Reportable 03/06/19 05:57 Acanthocytes (Spur) Not Reportable 03/06/19 05:57 Rouleaux Not Reportable 03/06/19 05:57 Hemoglobin C Crystals Not Reportable 03/06/19 05:57 Schistocytes Not Reportable 03/06/19 05:57 Malaria parasites Not Reportable 03/06/19 05:57 Galen Bodies Not Reportable 03/06/19 05:57 Hem Pathologist Commnt No 03/06/19 05:57 PT 12.8 Sec. (12.2-14.9) 03/08/19 09:33 INR 0.97 (0.87-1.13) 03/08/19 09:33 POC ABG pH 7.375 (7.35-7.45) 03/05/19 03:29 POC ABG pCO2 42.4 (35-45) 03/05/19 03:29 POC ABG pO2 109 (80-105) H 03/05/19 03:29 POC ABG HCO3 24.7 (22-26 mml/L) 03/05/19 03:29 POC ABG Total CO2 26 (23-27mmol/L) 03/05/19 03:29 POC ABG O2 Sat 98 03/05/19 03:29 POC ABG Base Excess 0 ((-2) - (+3)mmol/L) 03/05/19 03:29 FiO2 40 % 03/05/19 03:29 Sodium 132 mmol/L (137-145) L 03/14/19 12:08 Potassium 4.5 mmol/L (3.6-5.0) 03/14/19 12:08 Chloride 96.0 mmol/L (98-107) L 03/14/19 12:08 Carbon Dioxide 18 mmol/L (22-30) L 03/14/19 12:08 Anion Gap 23 mmol/L 03/14/19 12:08 BUN 50 mg/dL (7-17) H 03/14/19 12:08 Creatinine 1.6 mg/dL (0.7-1.2) H 03/14/19 12:08 Estimated GFR 38 ml/min 03/14/19 12:08 BUN/Creatinine Ratio 31 % 03/14/19 12:08 Glucose 192 mg/dL (65-100) H 03/14/19 12:08 POC Glucose 189 (70-105) H 03/14/19 12:05 Hemoglobin A1c 6.6 % (4-6) H 03/05/19 05:47 Lactic Acid 1.20 mmol/L (0.7-2.0) 03/05/19 05:47 Calcium 8.2 mg/dL (8.4-10.2) L 03/14/19 12:08 Magnesium 2.00 mg/dL (1.7-2.3) 03/08/19 17:07 Total Bilirubin 0.20 mg/dL (0.1-1.2) 03/06/19 05:57 AST 20 units/L (5-40) 03/06/19 05:57 ALT 22 units/L (7-56) 03/06/19 05:57 Alkaline Phosphatase 80 units/L (35-129) 03/06/19 05:57 Troponin T 0.192 ng/mL (0.00-0.029) H* 03/04/19 23:02 NT-Pro-B Natriuret Pep 06680 pg/mL (0-900) H 03/04/19 23:02 Total Protein 6.7 g/dL (6.3-8.2) 03/06/19 05:57 Albumin 2.9 g/dL (3.9-5) L 03/06/19 05:57 Albumin/Globulin Ratio 0.8 % 03/06/19 05:57 Triglycerides 96 mg/dL (2-149) 03/04/19 23:02 Cholesterol 155 mg/dL (50-199) 03/04/19 23:02 LDL Cholesterol Direct 43 mg/dL (50-130) L 03/04/19 23:02 HDL Cholesterol 98 mg/dL (40-59) H 03/04/19 23:02 Cholesterol/HDL Ratio 1.58 % 03/04/19 23:02 Vancomycin Trough 21.9 ug/mL (5.0-20.0) H 03/08/19 11:00 Blood Type O POSITIVE 03/05/19 07:10 Antibody Screen Negative 03/05/19 07:10 Crossmatch See Detail 03/05/19 07:10 Active Medications - Current Medications Current Medications: Generic Name Dose Route Start Last Admin Trade Name Freq PRN Reason Stop Dose Admin Acetaminophen 650 mg 03/05/19 03:59 03/12/19 15:17 Tylenol PO 650 mg Q4H PRN Administration Pain MILD(1-3)/Fever >100.5/BRENNER Albuterol 2.5 mg 03/05/19 04:20 03/08/19 01:15 Proventil IH 2.5 mg Q3HRT PRN Administration Shortness Of Breath Albuterol/Ipratropium 1 ampul 03/05/19 14:00 03/14/19 08:37 Duoneb *Not For Prn Use* IH 1 ampul TIDRT MAYLIN Administration Allopurinol 100 mg 03/05/19 10:00 03/14/19 09:59 Zyloprim PO 100 mg DAILY MAYLIN Administration Aspirin 325 mg 03/05/19 10:00 03/14/19 09:59 Ecotrin PO 325 mg QDAY MAYLIN Administration Atorvastatin Calcium 40 mg 03/05/19 22:00 03/13/19 21:35 Lipitor PO 40 mg QHS MAYLIN Administration Cilostazol 50 mg 03/05/19 10:00 03/14/19 09:59 Pletal PO 50 mg BID MAYLIN Administration Diphenhydramine HCl 25 mg 03/12/19 11:53 Benadryl IV Q6H PRN Itching Ferrous Sulfate 325 mg 03/05/19 10:00 03/14/19 09:59 Feosol PO 325 mg DAILY MAYLIN Administration Folic Acid 1 mg 03/05/19 10:00 03/14/19 09:59 Folvite PO 1 mg QDAY MAYLIN Administration Heparin Sodium (Porcine) 5,000 unit 03/05/19 10:00 03/14/19 10:02 Heparin SUB-Q 5,000 unit Q12HR MAYLIN Administration Hydralazine HCl 10 mg 03/05/19 12:10 03/08/19 01:58 Apresoline IV 10 mg Q4HR PRN Administration SBP>170 or DBP>110 Hydralazine HCl 50 mg 03/06/19 14:00 03/14/19 05:14 Apresoline PO 50 mg Q8HR MAYLIN Administration Hydromorphone HCl 0.5 mg 03/05/19 03:59 03/14/19 08:35 Dilaudid IV 0.5 mg Q3H PRN Administration Pain , Severe (7-10) Hydroxyzine HCl 10 mg 03/12/19 16:02 Atarax PO Q6H PRN Itching Insulin Human Isoph/Insulin Regular 10 unit 03/06/19 09:30 03/14/19 10:04 Humulin 70/30 SUB-Q Not Given BIDDIAB [facility] Insulin Human Lispro 0 unit 03/05/19 07:30 03/14/19 11:30 Humalog SUB-Q Not Given ACHS [facility] Protocol Isosorbide Mononitrate 120 mg 03/05/19 10:00 03/14/19 10:01 Imdur PO 120 mg QDAY MAYLIN Administration Metoclopramide HCl 10 mg 03/05/19 03:59 Reglan IV Q6H PRN Nausea And Vomiting Metoprolol Tartrate 50 mg 03/05/19 08:00 03/14/19 09:58 Metoprolol PO 50 mg BID@0800,1700 MAYLIN Administration Nitroglycerin 0.4 mg 03/07/19 22:30 03/10/19 20:50 Nitrostat SL 0.4 mg .Q5MIN PRN Administration Chest Pain Ondansetron HCl 4 mg 03/05/19 03:59 Zofran IV Q3H PRN Nausea And Vomiting Oxycodone/Acetaminophen 1 tab 03/05/19 03:59 03/14/19 05:14 Percocet 5/325 PO 1 tab Q6H PRN Administration Pain, Moderate (4-6) Pantoprazole Sodium 40 mg 03/05/19 10:00 03/14/19 09:59 Protonix PO 40 mg QDAY MAYLIN Administration Sodium Chloride 10 ml 03/05/19 10:00 03/14/19 09:59 Sodium Chloride Flush Syringe 10 Ml IV 10 ml BID MAYLIN Administration Sodium Chloride 10 ml 03/05/19 03:59 Sodium Chloride Flush Syringe 10 Ml IV PRN PRN LINE FLUSH Nutrition/Malnutrition Assess - Dietary Evaluation Nutrition/Malnutrition Findings: Nutrition Notes Start: 03/12/19 12:38 Freq: Status: Active Protocol: Document 03/12/19 12:38 CT (Rec: 03/12/19 12:48 CT [id number]) Co-Sign 03/12/19 12:38 LP Nutrition Notes Need for Assessment generated from: LOS Initial or Follow up Assessment Current Diagnosis Acute Kidney Injury,COPD, Coronary Artery Disease, Diabetes,Sepsis,Hypertension, Heart Failure,Hyperlipidemia Other Pertinent Diagnosis Bilat lung carcinoma, Gout, GERD Current Diet Cardiac/consistent CHO Labs/Tests Na 131 BUN 58 Creatinine 1.7 Glu 146 Pertinent Medications Humalog Lasix Height 5 ft 4 in Weight 77.5 kg Usual Body Weight 63.957 kg Center Body Weight (kg) 54.54 BMI 29.3 Intake Prior to Admission Fair Weight Status Obese Subjective/Other Information LOS screen. Pt stated that she has a good appetite now. Pt has issues chewing, mechanical soft diet modificaiton was ordered. Pt stated that she ate about half of her breakfast. 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 No Is Patient Ambulatory and/or Out of Bed Yes REE-([facility]-ambulatory/OOB) [ 1631.500 [id number]] Calculation Used for Recommendations [facility] Additional Notes Protein needs: 79-99 g/kg/day (1.2-1.5 g/kg/day AdBW 66kg) Fluid needs: per MD Nutrition Intervention Change Diet Order: Add mechanical soft modification to cardiac/ consistent CHO Add Supplement/Snack (indicate name/kcal Add Glucerna Daily /protein ) Provides kCal: 220 Provides Protein (gm) 10 Goal #1 Meet >75% of energy and protein needs Anticipated Discharge Needs: Mechanical soft cardiac/ consistent CHO Follow-Up By: 03/16/19 Additional Comments Follow up for PO intake and ONS need
--- NOTE | 2019-03-14 13:12 | Progress Note ---
Assessment and Plan Patient has no documented history of atrial fibrillation. [id number] score is 7; however, will defer anticoagulation until after invasive procedure is done and will monitor for additional episodes. She is currently on Pletal for PAD. Aberrancies in rhythm likely secondary to respiratory distress. Continue supportive cardiac management for now. The patient has been seen in conjunction with Dr. Hoyt, who agrees with the assessment and plan. - Patient Problems (1) NSTEMI (non-ST elevated myocardial infarction) Current Visit: Yes Status: Acute (2) Acute respiratory failure with hypoxemia Current Visit: Yes Status: Resolved (3) COPD with exacerbation Current Visit: Yes Status: Acute (4) Pleural effusion Current Visit: Yes Status: Acute (5) Chronic HFrEF (heart failure with reduced ejection fraction) Current Visit: Yes Status: Chronic (6) Cardiomyopathy Current Visit: Yes Status: Chronic (7) Coronary artery disease Current Visit: Yes Status: Chronic Qualifiers: Coronary Disease-Associated Artery/Lesion type: [place] artery [place] vs. transplanted heart: viejas heart (8) PAD (peripheral artery disease) Current Visit: Yes Status: Chronic (9) Abnormal stress test Current Visit: Yes Status: Chronic (10) Anemia Current Visit: Yes Status: Chronic (11) Diabetes Current Visit: Yes Status: Chronic (12) Lung cancer Current Visit: Yes Status: Suspected (13) HTN (hypertension) Current Visit: No Status: Chronic Qualifiers: Hypertension type: essential hypertension Qualified Code(s): I10 - Essential (primary) hypertension Subjective Date of service: 03/14/19 Principal diagnosis: sq cell ca lung Interval history: The patient is lying in bed in moderate respiratory distress. Per RN, PleuRx procedure planned for tomorrow. Telemetry reviewed -ST in 110s with bouts in 160s; paroxysms of new-onset afib and NSVT noted as well. Objective Last Vital Signs Temp 97.7 F 03/14/19 03:59 Pulse 98 H 03/14/19 10:00 Resp 18 03/14/19 12:00 BP 163/59 03/14/19 05:14 Pulse Ox 98 03/14/19 03:59 - Physical Examination General: No Apparent Distress, Other (moderate respiratory distress) HEENT: Positive: PERRL Neck: Positive: trachea midline Cardiac: Positive: Irregularly Regular Lungs: Positive: Decreased Breath Sounds Neuro: Positive: Grossly Intact Abdomen: Positive: Unremarkable /Rectal: Other (deferred) Skin: Positive: Clear Musculoskeletal: Decreased Range of Motion, Normal Range of Motion Extremities: Present: normal - Labs and Meds Comprehensive Metabolic Panel 03/14/19 Range/Units 12:08 Sodium 132 L (137-145) mmol/L Potassium 4.5 (3.6-5.0) mmol/L Chloride 96.0 L (98-107) mmol/L Carbon Dioxide 18 L (22-30) mmol/L BUN 50 H (7-17) mg/dL Creatinine 1.6 H (0.7-1.2) mg/dL Glucose 192 H (65-100) mg/dL Calcium 8.2 L (8.4-10.2) mg/dL - Imaging and Cardiology EKG: report reviewed, image reviewed Echo: report reviewed (02/23: EF of 30 to 35 percent, impaired relaxation, mild MR, mild TR and moderately reduced RV systolic function) - Telemetry EKG Rhythm: Sinus Tachycardia (with bursts of afib and NSVT) Repolarization changes or abnormalities: nonspecific abnormality, ST segment, and/or T wave
--- NOTE | 2019-03-14 14:30 | Progress Note ---
Assessment and Plan 73 y/o female with squamous cell carcinoma of the lung, now with recurrent left sided effusion, larger this time. 1. Spoke with IR and they need a CT of chest noncontrast to evaluate if she will be a good candidate for placement 2. Hold on any thoracentesis unless urgent 3. Follow up heme recs 4. overall prognosis is poor Subjective Date of service: 03/14/19 Principal diagnosis: sq cell ca lung Interval history: Oxygen requirement now up to 5 liters. Still good sats. Spoke with IR yesterday. They will order CT of chest to see if she is a good candidate for pleurx placement. Objective Vital Signs - 12hr 03/14/19 03/14/19 03/14/19 02:42 03:59 05:14 Temperature 97.4 F L 97.7 F Pulse Rate 97 H 98 H 98 H Pulse Rate [ Anterior Bilateral Throughout] Pulse Rate [ Posterior Bilateral Throughout] Respiratory 28 H 24 Rate Respiratory Rate [Anterior Bilateral Throughout] Respiratory Rate [Posterior Bilateral Throughout] Blood Pressure 159/56 163/59 163/59 O2 Sat by Pulse 95 98 Oximetry 03/14/19 03/14/19 03/14/19 07:27 08:03 08:46 Temperature 98.3 F Pulse Rate 98 H 98 H Pulse Rate [ 81 Anterior Bilateral Throughout] Pulse Rate [ 84 Posterior Bilateral Throughout] Respiratory 18 Rate Respiratory 18 Rate [Anterior Bilateral Throughout] Respiratory 16 Rate [Posterior Bilateral Throughout] Blood Pressure 156/60 O2 Sat by Pulse 94 Oximetry 03/14/19 03/14/19 03/14/19 10:00 12:00 13:01 Temperature 97.7 F Pulse Rate 98 H Pulse Rate [ Anterior Bilateral Throughout] Pulse Rate [ Posterior Bilateral Throughout] Respiratory 18 18 Rate Respiratory Rate [Anterior Bilateral Throughout] Respiratory Rate [Posterior Bilateral Throughout] Blood Pressure 151/54 O2 Sat by Pulse 94 Oximetry 03/14/19 13:32 Temperature Pulse Rate Pulse Rate [ 81 Anterior Bilateral Throughout] Pulse Rate [ 87 Posterior Bilateral Throughout] Respiratory Rate Respiratory 18 Rate [Anterior Bilateral Throughout] Respiratory 16 Rate [Posterior Bilateral Throughout] Blood Pressure O2 Sat by Pulse Oximetry Constitutional: no acute distress, alert Eyes: non-icteric ENT: oropharynx moist Neck: supple Ascultation: Bilateral: clear, diminished breath sounds Cardiovascular: regular rate and rhythm Gastrointestinal: normoactive bowel sounds, soft, non-tender, non-distended Integumentary: normal Extremities: no cyanosis Neurologic: normal mental status, non-focal exam Psychiatric: mood appropriate, affect normal CBC and BMP: 03/13/19 04:44 03/14/19 12:08 ABG, PT/INR, D-dimer: ABG POC ABG pH 7.375 (7.35-7.45) 03/05/19 03:29 POC ABG pCO2 42.4 (35-45) 03/05/19 03:29 POC ABG pO2 109 (80-105) H 03/05/19 03:29 POC ABG HCO3 24.7 (22-26 mml/L) 03/05/19 03:29 POC ABG Total CO2 26 (23-27mmol/L) 03/05/19 03:29 POC ABG O2 Sat 98 03/05/19 03:29 PT/INR, D-dimer PT 12.8 Sec. (12.2-14.9) 03/08/19 09:33 INR 0.97 (0.87-1.13) 03/08/19 09:33 Abnormal lab findings: Abnormal Labs 03/04/19 03/04/19 03/04/19 23:02 23:02 23:02 WBC 26.4 H RBC 3.09 L Hgb 7.7 L Hct 24.9 L MCH 25 L RDW 20.7 H Plt Count 491 H Lymph % (Auto) [place] % (Auto) Lymph # [place] # Seg Neutrophils % Seg Neuts % (Manual) 96.0 H Lymphocytes % (Manual) 1.0 L Seg Neutrophils # Seg Neutrophils # Man 25.3 H Lymphocytes # (Manual) 0.3 L Eosinophils # (Manual) 0.5 H POC ABG pO2 Sodium 135 L Chloride Carbon Dioxide BUN 37 H Creatinine Glucose 338 H POC Glucose Hemoglobin A1c Calcium 8.2 L Troponin T 0.192 H* NT-Pro-B Natriuret Pep 98600 H Albumin 2.9 L LDL Cholesterol Direct 43 L HDL Cholesterol 98 H Vancomycin Trough Crossmatch 03/05/19 03/05/19 03/05/19 03:29 05:47 07:10 WBC RBC Hgb Hct MCH RDW Plt Count Lymph % (Auto) [place] % (Auto) Lymph # [place] # Seg Neutrophils % Seg Neuts % (Manual) Lymphocytes % (Manual) Seg Neutrophils # Seg Neutrophils # Man Lymphocytes # (Manual) Eosinophils # (Manual) POC ABG pO2 109 H Sodium Chloride Carbon Dioxide BUN Creatinine Glucose POC Glucose Hemoglobin A1c 6.6 H Calcium Troponin T NT-Pro-B Natriuret Pep Albumin LDL Cholesterol Direct HDL Cholesterol Vancomycin Trough Crossmatch See Detail 03/05/19 03/05/19 03/05/19 08:44 12:35 16:29 WBC RBC Hgb Hct MCH RDW Plt Count Lymph % (Auto) [place] % (Auto) Lymph # [place] # Seg Neutrophils % Seg Neuts % (Manual) Lymphocytes % (Manual) Seg Neutrophils # Seg Neutrophils # Man Lymphocytes # (Manual) Eosinophils # (Manual) POC ABG pO2 Sodium Chloride Carbon Dioxide BUN Creatinine Glucose POC Glucose 295 H 292 H 243 H Hemoglobin A1c Calcium Troponin T NT-Pro-B Natriuret Pep Albumin LDL Cholesterol Direct HDL Cholesterol Vancomycin Trough Crossmatch 03/05/19 03/06/19 03/06/19 21:52 05:57 05:57 WBC 15.6 H RBC 3.45 L Hgb 9.0 L Hct 28.3 L MCH 26 L RDW 20.6 H Plt Count Lymph % (Auto) [place] % (Auto) Lymph # [place] # Seg Neutrophils % Seg Neuts % (Manual) 97.0 H Lymphocytes % (Manual) 3.0 L Seg Neutrophils # Seg Neutrophils # Man 15.1 H Lymphocytes # (Manual) 0.5 L Eosinophils # (Manual) POC ABG pO2 Sodium 134 L Chloride Carbon Dioxide 21 L BUN 38 H Creatinine Glucose 342 H POC Glucose 266 H Hemoglobin A1c Calcium 8.3 L Troponin T NT-Pro-B Natriuret Pep Albumin 2.9 L LDL Cholesterol Direct HDL Cholesterol Vancomycin Trough Crossmatch 03/06/19 03/06/19 03/06/19 08:37 10:28 14:59 WBC RBC Hgb Hct MCH RDW Plt Count Lymph % (Auto) [place] % (Auto) Lymph # [place] # Seg Neutrophils % Seg Neuts % (Manual) Lymphocytes % (Manual) Seg Neutrophils # Seg Neutrophils # Man Lymphocytes # (Manual) Eosinophils # (Manual) POC ABG pO2 Sodium Chloride Carbon Dioxide BUN Creatinine Glucose POC Glucose 386 H 403 H 212 H Hemoglobin A1c Calcium Troponin T NT-Pro-B Natriuret Pep Albumin LDL Cholesterol Direct HDL Cholesterol Vancomycin Trough Crossmatch 03/06/19 03/07/19 03/07/19 21:00 05:12 08:07 WBC 15.3 H RBC 3.12 L Hgb 8.2 L Hct 25.6 L MCH 26 L RDW 20.7 H Plt Count Lymph % (Auto) [place] % (Auto) Lymph # [place] # Seg Neutrophils % Seg Neuts % (Manual) Lymphocytes % (Manual) Seg Neutrophils # Seg Neutrophils # Man Lymphocytes # (Manual) Eosinophils # (Manual) POC ABG pO2 Sodium Chloride Carbon Dioxide BUN Creatinine Glucose POC Glucose 195 H 293 H Hemoglobin A1c Calcium Troponin T NT-Pro-B Natriuret Pep Albumin LDL Cholesterol Direct HDL Cholesterol Vancomycin Trough Crossmatch 03/07/19 03/07/19 03/07/19 12:02 17:02 21:12 WBC RBC Hgb Hct MCH RDW Plt Count Lymph % (Auto) [place] % (Auto) Lymph # [place] # Seg Neutrophils % Seg Neuts % (Manual) Lymphocytes % (Manual) Seg Neutrophils # Seg Neutrophils # Man Lymphocytes # (Manual) Eosinophils # (Manual) POC ABG pO2 Sodium Chloride Carbon Dioxide BUN Creatinine Glucose POC Glucose 330 H 282 H 317 H Hemoglobin A1c Calcium Troponin T NT-Pro-B Natriuret Pep Albumin LDL Cholesterol Direct HDL Cholesterol Vancomycin Trough Crossmatch 03/08/19 03/08/19 03/08/19 08:31 11:00 12:02 WBC RBC Hgb Hct MCH RDW Plt Count Lymph % (Auto) [place] % (Auto) Lymph # [place] # Seg Neutrophils % Seg Neuts % (Manual) Lymphocytes % (Manual) Seg Neutrophils # Seg Neutrophils # Man Lymphocytes # (Manual) Eosinophils # (Manual) POC ABG pO2 Sodium Chloride Carbon Dioxide BUN Creatinine Glucose POC Glucose 236 H 301 H Hemoglobin A1c Calcium Troponin T NT-Pro-B Natriuret Pep Albumin LDL Cholesterol Direct HDL Cholesterol Vancomycin Trough 21.9 H Crossmatch 03/08/19 03/08/19 03/08/19 16:07 17:07 22:45 WBC RBC Hgb Hct MCH RDW Plt Count Lymph % (Auto) [place] % (Auto) Lymph # [place] # Seg Neutrophils % Seg Neuts % (Manual) Lymphocytes % (Manual) Seg Neutrophils # Seg Neutrophils # Man Lymphocytes # (Manual) Eosinophils # (Manual) POC ABG pO2 Sodium 131 L Chloride Carbon Dioxide 20 L BUN 49 H Creatinine 1.3 H Glucose 289 H POC Glucose 296 H 192 H Hemoglobin A1c Calcium Troponin T NT-Pro-B Natriuret Pep Albumin LDL Cholesterol Direct HDL Cholesterol Vancomycin Trough Crossmatch 03/09/19 03/09/19 03/09/19 08:31 11:01 12:11 WBC RBC Hgb Hct MCH RDW Plt Count Lymph % (Auto) [place] % (Auto) Lymph # [place] # Seg Neutrophils % Seg Neuts % (Manual) Lymphocytes % (Manual) Seg Neutrophils # Seg Neutrophils # Man Lymphocytes # (Manual) Eosinophils # (Manual) POC ABG pO2 Sodium Chloride Carbon Dioxide BUN Creatinine Glucose POC Glucose 60 L 183 H 219 H Hemoglobin A1c Calcium Troponin T NT-Pro-B Natriuret Pep Albumin LDL Cholesterol Direct HDL Cholesterol Vancomycin Trough Crossmatch 03/09/19 03/09/19 03/10/19 16:15 21:08 04:53 WBC RBC Hgb Hct MCH RDW Plt Count Lymph % (Auto) [place] % (Auto) Lymph # [place] # Seg Neutrophils % Seg Neuts % (Manual) Lymphocytes % (Manual) Seg Neutrophils # Seg Neutrophils # Man Lymphocytes # (Manual) Eosinophils # (Manual) POC ABG pO2 Sodium 133 L Chloride Carbon Dioxide 19 L BUN 57 H Creatinine 1.4 H Glucose POC Glucose 202 H 115 H Hemoglobin A1c Calcium 8.1 L Troponin T NT-Pro-B Natriuret Pep Albumin LDL Cholesterol Direct HDL Cholesterol Vancomycin Trough Crossmatch 03/10/19 03/10/19 03/10/19 10:19 11:32 18:24 WBC RBC Hgb Hct MCH RDW Plt Count Lymph % (Auto) [place] % (Auto) Lymph # [place] # Seg Neutrophils % Seg Neuts % (Manual) Lymphocytes % (Manual) Seg Neutrophils # Seg Neutrophils # Man Lymphocytes # (Manual) Eosinophils # (Manual) POC ABG pO2 Sodium Chloride Carbon Dioxide BUN Creatinine Glucose POC Glucose 151 H 146 H 106 H Hemoglobin A1c Calcium Troponin T NT-Pro-B Natriuret Pep Albumin LDL Cholesterol Direct HDL Cholesterol Vancomycin Trough Crossmatch 03/11/19 03/11/19 03/11/19 04:34 11:14 16:29 WBC RBC Hgb Hct MCH RDW Plt Count Lymph % (Auto) [place] % (Auto) Lymph # [place] # Seg Neutrophils % Seg Neuts % (Manual) Lymphocytes % (Manual) Seg Neutrophils # Seg Neutrophils # Man Lymphocytes # (Manual) Eosinophils # (Manual) POC ABG pO2 Sodium 131 L Chloride Carbon Dioxide 20 L BUN 57 H Creatinine 1.7 H Glucose 189 H POC Glucose 158 H 119 H Hemoglobin A1c Calcium 7.7 L Troponin T NT-Pro-B Natriuret Pep Albumin LDL Cholesterol Direct HDL Cholesterol Vancomycin Trough Crossmatch 03/11/19 03/12/19 03/12/19 20:48 05:41 05:41 WBC 16.1 H RBC 3.24 L Hgb 8.6 L Hct 26.6 L MCH 27 L RDW 20.8 H Plt Count Lymph % (Auto) 5.4 L [place] % (Auto) 7.4 H Lymph # 0.9 L [place] # 1.2 H Seg Neutrophils % 83.9 H Seg Neuts % (Manual) Lymphocytes % (Manual) Seg Neutrophils # 13.5 H Seg Neutrophils # Man Lymphocytes # (Manual) Eosinophils # (Manual) POC ABG pO2 Sodium 131 L Chloride 94.2 L Carbon Dioxide 17 L BUN 58 H Creatinine 1.7 H Glucose 146 H POC Glucose 258 H Hemoglobin A1c Calcium 7.9 L Troponin T NT-Pro-B Natriuret Pep Albumin LDL Cholesterol Direct HDL Cholesterol Vancomycin Trough Crossmatch 03/12/19 03/12/19 03/12/19 09:01 12:51 15:32 WBC RBC Hgb Hct MCH RDW Plt Count Lymph % (Auto) [place] % (Auto) Lymph # [place] # Seg Neutrophils % Seg Neuts % (Manual) Lymphocytes % (Manual) Seg Neutrophils # Seg Neutrophils # Man Lymphocytes # (Manual) Eosinophils # (Manual) POC ABG pO2 Sodium Chloride Carbon Dioxide BUN Creatinine Glucose POC Glucose 135 H 191 H 171 H Hemoglobin A1c Calcium Troponin T NT-Pro-B Natriuret Pep Albumin LDL Cholesterol Direct HDL Cholesterol Vancomycin Trough Crossmatch 03/12/19 03/13/19 03/13/19 20:27 04:44 04:44 WBC 13.0 H RBC 3.29 L Hgb 8.8 L Hct 26.9 L MCH 27 L RDW 20.8 H Plt Count Lymph % (Auto) 6.6 L [place] % (Auto) 8.2 H Lymph # 0.9 L [place] # 1.1 H Seg Neutrophils % 81.5 H Seg Neuts % (Manual) Lymphocytes % (Manual) Seg Neutrophils # 10.6 H Seg Neutrophils # Man Lymphocytes # (Manual) Eosinophils # (Manual) POC ABG pO2 Sodium 131 L Chloride 97.9 L Carbon Dioxide BUN 56 H Creatinine 1.8 H Glucose 148 H POC Glucose 203 H Hemoglobin A1c Calcium 8.2 L Troponin T NT-Pro-B Natriuret Pep Albumin LDL Cholesterol Direct HDL Cholesterol Vancomycin Trough Crossmatch 03/13/19 03/13/19 03/13/19 09:10 12:24 23:27 WBC RBC Hgb Hct MCH RDW Plt Count Lymph % (Auto) [place] % (Auto) Lymph # [place] # Seg Neutrophils % Seg Neuts % (Manual) Lymphocytes % (Manual) Seg Neutrophils # Seg Neutrophils # Man Lymphocytes # (Manual) Eosinophils # (Manual) POC ABG pO2 Sodium Chloride Carbon Dioxide BUN Creatinine Glucose POC Glucose 186 H 150 H 128 H Hemoglobin A1c Calcium Troponin T NT-Pro-B Natriuret Pep Albumin LDL Cholesterol Direct HDL Cholesterol Vancomycin Trough Crossmatch 03/14/19 03/14/19 12:05 12:08 WBC RBC Hgb Hct MCH RDW Plt Count Lymph % (Auto) [place] % (Auto) Lymph # [place] # Seg Neutrophils % Seg Neuts % (Manual) Lymphocytes % (Manual) Seg Neutrophils # Seg Neutrophils # Man Lymphocytes # (Manual) Eosinophils # (Manual) POC ABG pO2 Sodium 132 L Chloride 96.0 L Carbon Dioxide 18 L BUN 50 H Creatinine 1.6 H Glucose 192 H POC Glucose 189 H Hemoglobin A1c Calcium 8.2 L Troponin T NT-Pro-B Natriuret Pep Albumin LDL Cholesterol Direct HDL Cholesterol Vancomycin Trough Crossmatch
--- NOTE | 2019-03-14 15:54 | Progress Note ---
Assessment and Plan 1. Acute kidney injury: Vasomotor NEELIMA superimposed on CKD stage 3. CT abdomen was negative for hydronephrosis. Urine studies ordered. Creatinine level is improving. Monitor renal function. Avoid nephrotoxic agents. Meds dosage based on GFR. 2. FEN: Metabolic acidosis, monitor. Hyponatremia, monitor. Monitor lytes. 3. 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 Followed by Pulmonary and Heme-Onc. 4. Decompensated CHF: Was on Lasix. 5. CAD: Followed by Cards. 6. DM-2. 7. Hypertension: Monitor BP. 8. Anemia: POA. Subjective Date of service: 03/14/19 Principal diagnosis: sq cell ca lung Interval history: Patient was was not examined today. However the current and previous medical r ecords are reviewed in detail as are laboratory and imaging data reviewed when appropriate. Medications being given are also reviewed. In addition the case has been discussed with the attending hospitalist when needed.Newrenalrecommendations as above. Objective - Vital Signs Vital signs: Vital Signs - 12hr 03/14/19 03/14/19 03/14/19 03:59 05:14 07:27 Temperature 97.7 F 98.3 F Pulse Rate 98 H 98 H 98 H Pulse Rate [ Anterior Bilateral Throughout] Pulse Rate [ Posterior Bilateral Throughout] Respiratory 24 18 Rate Respiratory Rate [Anterior Bilateral Throughout] Respiratory Rate [Posterior Bilateral Throughout] Blood Pressure 163/59 163/59 156/60 O2 Sat by Pulse 98 94 Oximetry 03/14/19 03/14/19 03/14/19 08:03 08:46 10:00 Temperature Pulse Rate 98 H 98 H Pulse Rate [ 81 Anterior Bilateral Throughout] Pulse Rate [ 84 Posterior Bilateral Throughout] Respiratory Rate Respiratory 18 Rate [Anterior Bilateral Throughout] Respiratory 16 Rate [Posterior Bilateral Throughout] Blood Pressure O2 Sat by Pulse 94 Oximetry 03/14/19 03/14/19 03/14/19 12:00 13:01 13:32 Temperature 97.7 F Pulse Rate Pulse Rate [ 81 Anterior Bilateral Throughout] Pulse Rate [ 87 Posterior Bilateral Throughout] Respiratory 18 18 Rate Respiratory 18 Rate [Anterior Bilateral Throughout] Respiratory 16 Rate [Posterior Bilateral Throughout] Blood Pressure 151/54 O2 Sat by Pulse Oximetry - Lab 03/13/19 04:44 03/14/19 12:08 Most recent lab results Calcium 8.2 mg/dL (8.4-10.2) L 03/14/19 12:08 Magnesium 2.00 mg/dL (1.7-2.3) 03/08/19 17:07 Medications & Allergies - Medications Allergies/Adverse Reactions: Allergies ibuprofen Allergy (Verified 02/18/19 23:29) Unknown Penicillins Allergy (Verified 02/18/19 23:29) Unknown Home Medications: Home Medications Medication Instructions Recorded Confirmed Last Taken Type Allopurinol 100 mg PO DAILY 12/26/18 03/05/19 03/04/19 History Cilostazol 50 mg PO BID 12/26/18 03/05/19 03/04/19 History Ferrous Sulfate 325 mg PO DAILY 12/26/18 03/05/19 03/04/19 History Ipratropium (Nf) [Atrovent HFA 2 puff IH Q6HR PRN #1 inha 01/11/19 03/05/19 Unknown Rx 17MCG/PUFF] AtorvaSTATin [Lipitor] 40 mg PO QHS 02/09/19 03/05/19 03/04/19 History Pantoprazole [Protonix TAB] 40 mg PO QDAY #30 tablet 02/16/19 03/05/19 Unknown Rx hydrALAZINE [Apresoline TAB] 25 mg PO Q8HR #90 tablet 02/16/19 03/05/19 03/04/19 Rx Furosemide [Lasix TAB] 20 mg PO QDAY tablet 03/01/19 03/05/19 03/04/19 Rx ISOSORBIDE MONOnitrate [Imdur ER] 120 mg PO QDAY tablet 03/01/19 03/05/19 03/04/19 Rx Metoprolol [Lopressor TAB] 50 mg PO BID tablet 03/01/19 03/05/19 Unknown Rx Aspirin EC 325 mg PO QDAY #30 tablet 03/03/19 03/05/19 03/04/19 Rx Folic Acid [Folvite] 1 mg PO QDAY #30 tablet 03/03/19 03/05/19 03/04/19 Rx Insulin NPH/Regular [NovoLIN 70/30] 8 unit SUB-Q ACHS 03/05/19 03/05/19 Unknown History Active Medications: Generic Name Dose Route Start Last Admin Trade Name Freq PRN Reason Stop Dose Admin Acetaminophen 650 mg 03/05/19 03:59 03/12/19 15:17 Tylenol PO 650 mg Q4H PRN Administration Pain MILD(1-3)/Fever >100.5/BRENNER Albuterol 2.5 mg 03/05/19 04:20 03/08/19 01:15 Proventil IH 2.5 mg Q3HRT PRN Administration Shortness Of Breath Albuterol/Ipratropium 1 ampul 03/05/19 14:00 03/14/19 13:31 Duoneb *Not For Prn Use* IH 1 ampul TIDRT MAYLIN Administration Allopurinol 100 mg 03/05/19 10:00 03/14/19 09:59 Zyloprim PO 100 mg DAILY MAYLIN Administration Aspirin 325 mg 03/05/19 10:00 03/14/19 09:59 Ecotrin PO 325 mg QDAY MAYLIN Administration Atorvastatin Calcium 40 mg 03/05/19 22:00 03/13/19 21:35 Lipitor PO 40 mg QHS MAYLIN Administration Cilostazol 50 mg 03/05/19 10:00 03/14/19 09:59 Pletal PO 50 mg BID MAYLIN Administration Diphenhydramine HCl 25 mg 03/12/19 11:53 Benadryl IV Q6H PRN Itching Ferrous Sulfate 325 mg 03/05/19 10:00 03/14/19 09:59 Feosol PO 325 mg DAILY MAYLIN Administration Folic Acid 1 mg 03/05/19 10:00 03/14/19 09:59 Folvite PO 1 mg QDAY MAYLIN Administration Heparin Sodium (Porcine) 5,000 unit 03/05/19 10:00 03/14/19 10:02 Heparin SUB-Q 5,000 unit Q12HR MAYLIN Administration Hydralazine HCl 10 mg 03/05/19 12:10 03/08/19 01:58 Apresoline IV 10 mg Q4HR PRN Administration SBP>170 or DBP>110 Hydralazine HCl 50 mg 03/06/19 14:00 03/14/19 14:04 Apresoline PO 50 mg Q8HR MYALIN Administration Hydromorphone HCl 0.5 mg 03/05/19 03:59 03/14/19 08:35 Dilaudid IV 0.5 mg Q3H PRN Administration Pain , Severe (7-10) Hydroxyzine HCl 10 mg 03/12/19 16:02 Atarax PO Q6H PRN Itching Insulin Human Isoph/Insulin Regular 10 unit 03/06/19 09:30 03/14/19 10:04 Humulin 70/30 SUB-Q Not Given BIDDIAB MAYLIN Insulin Human Lispro 0 unit 03/05/19 07:30 03/14/19 11:30 Humalog SUB-Q Not Given ACHS REPLACED BY [facility] Protocol Isosorbide Mononitrate 120 mg 03/05/19 10:00 03/14/19 10:01 Imdur PO 120 mg QDAY MAYLIN Administration Metoclopramide HCl 10 mg 03/05/19 03:59 Reglan IV Q6H PRN Nausea And Vomiting Metoprolol Tartrate 50 mg 03/05/19 08:00 03/14/19 09:58 Metoprolol PO 50 mg BID@0800,1700 MAYLIN Administration Nitroglycerin 0.4 mg 03/07/19 22:30 03/10/19 20:50 Nitrostat SL 0.4 mg .Q5MIN PRN Administration Chest Pain Ondansetron HCl 4 mg 03/05/19 03:59 Zofran IV Q3H PRN Nausea And Vomiting Oxycodone/Acetaminophen 1 tab 03/05/19 03:59 03/14/19 05:14 Percocet 5/325 PO 1 tab Q6H PRN Administration Pain, Moderate (4-6) Pantoprazole Sodium 40 mg 03/05/19 10:00 03/14/19 09:59 Protonix PO 40 mg QDAY MAYLIN Administration Sodium Chloride 10 ml 03/05/19 10:00 03/14/19 09:59 Sodium Chloride Flush Syringe 10 Ml IV 10 ml BID MAYLIN Administration Sodium Chloride 10 ml 03/05/19 03:59 Sodium Chloride Flush Syringe 10 Ml IV PRN PRN LINE FLUSH
--- NOTE | 2019-03-14 22:45 | Event Note ---
Date: 03/14/19 NPO after MN except for sips of water with meds Plan for possible aspira tunneled catheter tomorrow
[2019-03-15 07:03] LABS: Calcium 8.5 mg/dL (8.4-10.2)
--- NOTE | 2019-03-15 08:14 | Hem/Onc Progress Note ---
Assessment and Plan 1. Squamous cell cancer of lung. 2. Left upper lobe mass. 3. The patient is short of breath. The plan was to see her in outpatient setting to see if any oral agent can be used. 4. History of pleural effusion, history of coronary artery disease, history of cardiomyopathy, history of hypertension. 5. Anemia. 6. Thrombocytosis. 7. Low folate. 8. History of hemoptysis. 9. The plan was to do a PET/CT as an outpatient. CT abdo pelvis - no mets CT head a few weeks ago - no mets pt is on o2 - guarded prognosis - as limited options - d/w daughter - for oral or iv chemo - pt needs to come to office XRT eval - d/w dr Torres -I had spoken to him pl effusion malignant - d/w IR - Pleurex cath this may prevent the pt to go to rehab CXR stat - for SOB - Patient Problems (1) Lung cancer Current Visit: Yes Status: Suspected Subjective Date of service: 03/15/19 Principal diagnosis: lung ca Interval history: SOB Objective - Exam Narrative Exam: Pain - none General appearance - alert Performance status complete dependence Eyes - no icterus ENT - no bleeding LNs cervical not palpable Neck - no LN Respiratory Normal - on o2 Breath sounds - CTA anteriorly CVS S1 S2 + Extremities no edema General GI Soft Rectal deferred female - deferred Skin warm Musculoskeletal - moving limbs Neurologically alert awake - Constitutional Vitals: Last Vital Signs Temp 98.0 F 03/15/19 04:32 Pulse 105 H 03/15/19 04:32 Resp 18 03/15/19 04:32 BP 158/60 03/15/19 04:32 Pulse Ox 99 03/15/19 04:32 - Labs Lab Results: Laboratory Results - last 24 hr 03/14/19 03/14/19 03/14/19 07:35 12:05 12:08 Sodium 132 L Potassium 4.5 Chloride 96.0 L Carbon Dioxide 18 L Anion Gap 23 BUN 50 H Creatinine 1.6 H Estimated GFR 38 BUN/Creatinine Ratio 31 Glucose 192 H POC Glucose 105 189 H Calcium 8.2 L 03/14/19 03/14/19 03/15/19 16:09 21:18 06:07 Sodium 130 L Potassium 4.8 Chloride 95.5 L Carbon Dioxide 19 L Anion Gap 20 BUN 50 H Creatinine 1.5 H Estimated GFR 41 BUN/Creatinine Ratio 33 Glucose 150 H POC Glucose 230 H 165 H Calcium 8.5 Medications & Allergies - Medications Allergies/Adverse Reactions: Allergies ibuprofen Allergy (Verified 02/18/19 23:29) Unknown Penicillins Allergy (Verified 02/18/19 23:29) Unknown Home Medications: Home Medications Medication Instructions Recorded Confirmed Last Taken Type Allopurinol 100 mg PO DAILY 12/26/18 03/05/19 03/04/19 History Cilostazol 50 mg PO BID 12/26/18 03/05/19 03/04/19 History Ferrous Sulfate 325 mg PO DAILY 12/26/18 03/05/19 03/04/19 History Ipratropium (Nf) [Atrovent HFA 2 puff IH Q6HR PRN #1 inha 01/11/19 03/05/19 Unknown Rx 17MCG/PUFF] AtorvaSTATin [Lipitor] 40 mg PO QHS 02/09/19 03/05/19 03/04/19 History Pantoprazole [Protonix TAB] 40 mg PO QDAY #30 tablet 02/16/19 03/05/19 Unknown Rx hydrALAZINE [Apresoline TAB] 25 mg PO Q8HR #90 tablet 02/16/19 03/05/19 03/04/19 Rx Furosemide [Lasix TAB] 20 mg PO QDAY tablet 03/01/19 03/05/19 03/04/19 Rx ISOSORBIDE MONOnitrate [Imdur ER] 120 mg PO QDAY tablet 03/01/19 03/05/19 03/04/19 Rx Metoprolol [Lopressor TAB] 50 mg PO BID tablet 03/01/19 03/05/19 Unknown Rx Aspirin EC 325 mg PO QDAY #30 tablet 03/03/19 03/05/19 03/04/19 Rx Folic Acid [Folvite] 1 mg PO QDAY #30 tablet 03/03/19 03/05/19 03/04/19 Rx Insulin NPH/Regular [NovoLIN 70/30] 8 unit SUB-Q ACHS 03/05/19 03/05/19 Unknown History Active Medications: Generic Name Dose Route Start Last Admin Trade Name Freq PRN Reason Stop Dose Admin Acetaminophen 650 mg 03/05/19 03:59 03/12/19 15:17 Tylenol PO 650 mg Q4H PRN Administration Pain MILD(1-3)/Fever >100.5/BRENNER Albuterol 2.5 mg 03/05/19 04:20 03/08/19 01:15 Proventil IH 2.5 mg Q3HRT PRN Administration Shortness Of Breath Albuterol/Ipratropium 1 ampul 03/05/19 14:00 03/14/19 22:51 Duoneb *Not For Prn Use* IH 1 ampul TIDRT MAYLIN Administration Allopurinol 100 mg 03/05/19 10:00 03/14/19 09:59 Zyloprim PO 100 mg DAILY MAYLIN Administration Aspirin 325 mg 03/05/19 10:00 03/14/19 09:59 Ecotrin PO 325 mg QDAY MAYLIN Administration Atorvastatin Calcium 40 mg 03/05/19 22:00 03/14/19 23:46 Lipitor PO 40 mg QHS MAYLIN Administration Cilostazol 50 mg 03/05/19 10:00 03/14/19 23:46 Pletal PO 50 mg BID MAYLIN Administration Diphenhydramine HCl 25 mg 03/12/19 11:53 Benadryl IV Q6H PRN Itching Ferrous Sulfate 325 mg 03/05/19 10:00 03/14/19 09:59 Feosol PO 325 mg DAILY MAYLIN Administration Folic Acid 1 mg 03/05/19 10:00 03/14/19 09:59 Folvite PO 1 mg QDAY MAYLIN Administration Heparin Sodium (Porcine) 5,000 unit 03/05/19 10:00 03/14/19 23:45 Heparin SUB-Q 5,000 unit Q12HR MAYLIN Administration Hydralazine HCl 10 mg 03/05/19 12:10 03/08/19 01:58 Apresoline IV 10 mg Q4HR PRN Administration SBP>170 or DBP>110 Hydralazine HCl 50 mg 03/06/19 14:00 03/14/19 23:46 Apresoline PO 50 mg Q8HR MAYLIN Administration Hydromorphone HCl 0.5 mg 03/05/19 03:59 03/14/19 08:35 Dilaudid IV 0.5 mg Q3H PRN Administration Pain , Severe (7-10) Hydroxyzine HCl 10 mg 03/12/19 16:02 Atarax PO Q6H PRN Itching Insulin Human Isoph/Insulin Regular 10 unit 03/06/19 09:30 03/14/19 17:53 Humulin 70/30 SUB-Q Not Given BIDDIAB [facility] Insulin Human Lispro 0 unit 03/05/19 07:30 03/14/19 22:30 Humalog SUB-Q Not Given ACHS [facility] Protocol Isosorbide Mononitrate 120 mg 03/05/19 10:00 03/14/19 10:01 Imdur PO 120 mg QDAY MAYLIN Administration Metoclopramide HCl 10 mg 03/05/19 03:59 Reglan IV Q6H PRN Nausea And Vomiting Metoprolol Tartrate 50 mg 03/05/19 08:00 03/14/19 17:02 Metoprolol PO 50 mg BID@0800,1700 [facility] Administration Nitroglycerin 0.4 mg 03/07/19 22:30 03/10/19 20:50 Nitrostat SL 0.4 mg .Q5MIN PRN Administration Chest Pain Ondansetron HCl 4 mg 03/05/19 03:59 Zofran IV Q3H PRN Nausea And Vomiting Oxycodone/Acetaminophen 1 tab 03/05/19 03:59 03/14/19 05:14 Percocet 5/325 PO 1 tab Q6H PRN Administration Pain, Moderate (4-6) Pantoprazole Sodium 40 mg 03/05/19 10:00 03/14/19 09:59 Protonix PO 40 mg QDAY [facility] Administration Sodium Chloride 10 ml 03/05/19 10:00 03/14/19 23:48 Sodium Chloride Flush Syringe 10 Ml IV 10 ml BID MAYLIN Administration Sodium Chloride 10 ml 03/05/19 03:59 Sodium Chloride Flush Syringe 10 Ml IV PRN PRN LINE FLUSH
[2019-03-15] MEDS: INSULIN NPH/REGULAR 70/30 INJ SUB-Q SCH ×2 (08:27→18:48)
[2019-03-15] MEDS: INSULIN LISPRO 100 UNIT/ML SUB-Q SCH ×4 (08:27→21:48)
[2019-03-15] MEDS: hydrALAZINE 20 MG/1 ML INJ IV PRN (08:40)
[2019-03-15] MEDS: IPRATROPIUM/ALBUTEROL SULFATE 3 ML AMPUL.NEB IH SCH ×3 (08:46→20:05)
--- NOTE | 2019-03-15 09:44 | XRay Report ---
CHEST 1 VIEW INDICATION: SOB. COMPARISON: 03/11/2019 FINDINGS: Support devices: None. Heart: Grossly normal. Lungs/Pleura: Diffuse opacification of the left hemithorax is unchanged. The right lung remains clear . No pneumothorax is demonstrated. Additional findings: None. IMPRESSION: No change. Diffuse opacification of the left lung probably representing a combination of mass, atele ctasis and effusion. Signer Name: Kenny Wallis Jr, MD Signed: 03/15/2019 9:39 AM Workstation Name: [id number]
[2019-03-15] MEDS: FOLIC ACID 1 MG TAB PO SCH (10:49)
[2019-03-15] MEDS: allopurinoL 100 MG TAB PO SCH (10:49)
[2019-03-15] MEDS: PANTOPRAZOLE 40 MG TAB PO SCH (10:49)
[2019-03-15] MEDS: hydrALAZINE 25 MG TAB PO SCH ×2 (10:50→15:27)
[2019-03-15] MEDS: FERROUS SULFATE 325 MG TAB PO SCH (10:50)
[2019-03-15] MEDS: METOPROLOL TARTRATE 50 MG TAB PO SCH ×2 (10:50→17:30)
[2019-03-15] MEDS: ASPIRIN EC 325 MG TAB PO SCH (10:50)
[2019-03-15] MEDS: HEPARIN 5,000 UNIT/1 ML VIAL SUB-Q SCH ×2 (10:50→21:48)
[2019-03-15] MEDS: CILOSTAZOL 100 MG TAB PO SCH ×2 (10:50→21:47)
--- NOTE | 2019-03-15 11:24 | Progress Note ---
Assessment and Plan Assessment and plan: Acute hypoxic respiratory failure Possibly secondary to underlying pneumonia and malignancy, left pleural effusion and CHF exacerbation. She has been placed on BiPAP - now weaned off s/p thoracentesis on 02/19 drained 700cc fluid, 2-D echo showed EF of 30-35% Anemia s/p 1 Unit PRBC transfused on 03/05 Lung cancer on left from pathology Left lung cavitating lung lesion and L pleural effusion: The patient also been treated for cavitary pneumonia Pleural fluid 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 Followed by Pulmonary. S/p CT-guided lung biopsy- path shows lung cancer Left pleural effusion Pulm following For thoracentesis Friday family agrees to PleurX catheter placement to be done today Acute on chronic systolic CHF We will continue patient on routine home medications. Will monitor daily weight monitor input and output. 2-D echo showed EF of 30-35%, we'll continue Lasix Cardiology following. Stress test done 02/23 abnormal. Was scheduled for cardiac cath but canceled because of anemia NEELIMA, acute on CKD. Nephrology following DVT prophylaxis: Heparin Full code status To follow up with Dr. Franco in 1 week to arrange starting chemotherapy for recently diagnosed lung cancer Discussed with patient and daughter at bedside History Interval history: Shortness of breath persists No chest pain Hospitalist Physical - Physical exam Narrative exam: Gen: Not in acute distress, lying in bed, HEENT: Normocephalic, atraumatic Neck: supple, no JVD Heart: S1 and S2 reg, no murmurs, rubs or gallop Lungs: Decreased breath sounds on left, Abd: soft, non tender, non distended, normal BS, Ext: No edema, no clubbing, no cyanosis Neuro: Awake, alert, oriented X 3, no focal neurological signs - Constitutional Vitals: Temp Pulse Resp BP Pulse Ox 98.0 F 78 18 146/75 100 03/15/19 04:32 03/15/19 10:50 03/15/19 04:32 03/15/19 10:50 03/15/19 09:45 General appearance: Present: no acute distress Results - Labs CBC & Chem 7: 03/13/19 04:44 03/15/19 06:07 Labs: Laboratory Last Values WBC 13.0 K/mm3 (4.5-11.0) H 03/13/19 04:44 RBC 3.29 M/mm3 (3.65-5.03) L 03/13/19 04:44 Hgb 8.8 gm/dl (10.1-14.3) L 03/13/19 04:44 Hct 26.9 % (30.3-42.9) L 03/13/19 04:44 MCV 82 fl (79-97) 03/13/19 04:44 MCH 27 pg (28-32) L 03/13/19 04:44 MCHC 33 % (30-34) 03/13/19 04:44 RDW 20.8 % (13.2-15.2) H 03/13/19 04:44 Plt Count 346 K/mm3 (140-440) 03/13/19 04:44 Lymph % (Auto) 6.6 % (13.4-35.0) L 03/13/19 04:44 [place] % (Auto) 8.2 % (0.0-7.3) H 03/13/19 04:44 Eos % (Auto) 3.4 % (0.0-4.3) 03/13/19 04:44 Baso % (Auto) 0.3 % (0.0-1.8) 03/13/19 04:44 Lymph # 0.9 K/mm3 (1.2-5.4) L 03/13/19 04:44 [place] # 1.1 K/mm3 (0.0-0.8) H 03/13/19 04:44 Eos # 0.4 K/mm3 (0.0-0.4) 03/13/19 04:44 Baso # 0.0 K/mm3 (0.0-0.1) 03/13/19 04:44 Add Manual Diff Complete 03/06/19 05:57 Total Counted 100 03/06/19 05:57 Seg Neutrophils % 81.5 % (40.0-70.0) H 03/13/19 04:44 Seg Neuts % (Manual) 97.0 % (40.0-70.0) H 03/06/19 05:57 Band Neutrophils % 0 % 03/06/19 05:57 Lymphocytes % (Manual) 3.0 % (13.4-35.0) L 03/06/19 05:57 Reactive Lymphs % (Man) 0 % 03/06/19 05:57 Monocytes % (Manual) 0 % (0.0-7.3) 03/06/19 05:57 Eosinophils % (Manual) 0 % (0.0-4.3) 03/06/19 05:57 Basophils % (Manual) 0 % (0.0-1.8) 03/06/19 05:57 Metamyelocytes % 0 % 03/06/19 05:57 Myelocytes % 0 % 03/06/19 05:57 Promyelocytes % 0 % 03/06/19 05:57 Blast Cells % 0 % 03/06/19 05:57 Nucleated RBC % Not Reportable 03/06/19 05:57 Seg Neutrophils # 10.6 K/mm3 (1.8-7.7) H 03/13/19 04:44 Seg Neutrophils # Man 15.1 K/mm3 (1.8-7.7) H 03/06/19 05:57 Band Neutrophils # 0.0 K/mm3 03/06/19 05:57 Lymphocytes # (Manual) 0.5 K/mm3 (1.2-5.4) L 03/06/19 05:57 Abs React Lymphs (Man) 0.0 K/mm3 03/06/19 05:57 Monocytes # (Manual) 0.0 K/mm3 (0.0-0.8) 03/06/19 05:57 Eosinophils # (Manual) 0.0 K/mm3 (0.0-0.4) 03/06/19 05:57 Basophils # (Manual) 0.0 K/mm3 (0.0-0.1) 03/06/19 05:57 Metamyelocytes # 0.0 K/mm3 03/06/19 05:57 Myelocytes # 0.0 K/mm3 03/06/19 05:57 Promyelocytes # 0.0 K/mm3 03/06/19 05:57 Blast Cells # 0.0 K/mm3 03/06/19 05:57 WBC Morphology Not Reportable 03/06/19 05:57 Hypersegmented Neuts Not Reportable 03/06/19 05:57 Hyposegmented Neuts Not Reportable 03/06/19 05:57 Hypogranular Neuts Not Reportable 03/06/19 05:57 Smudge Cells Not Reportable 03/06/19 05:57 Toxic Granulation Not Reportable 03/06/19 05:57 Toxic Vacuolation Not Reportable 03/06/19 05:57 Dohle Bodies Not Reportable 03/06/19 05:57 Pelger-Huet Anomaly Not Reportable 03/06/19 05:57 Jessica Rods Not Reportable 03/06/19 05:57 Platelet Estimate Cons 03/06/19 05:57 Clumped Platelets Not Reportable 03/06/19 05:57 Plt Clumps, EDTA Not Reportable 03/06/19 05:57 Large Platelets Few 03/06/19 05:57 Giant Platelets Not Reportable 03/06/19 05:57 Platelet Satelliting Not Reportable 03/06/19 05:57 Plt Morphology Comment Not Reportable 03/06/19 05:57 RBC Morphology Not Reportable 03/06/19 05:57 Dimorphic RBCs Not Reportable 03/06/19 05:57 Polychromasia Not Reportable 03/06/19 05:57 Hypochromasia 1+ 03/06/19 05:57 Poikilocytosis Not Reportable 03/06/19 05:57 Anisocytosis Not Reportable 03/06/19 05:57 Microcytosis Not Reportable 03/06/19 05:57 Macrocytosis Not Reportable 03/06/19 05:57 Spherocytes Few 03/06/19 05:57 Pappenheimer Bodies Not Reportable 03/06/19 05:57 Sickle Cells Not Reportable 03/06/19 05:57 Target Cells 1+ 03/06/19 05:57 Tear Drop Cells Not Reportable 03/06/19 05:57 Ovalocytes Not Reportable 03/06/19 05:57 Helmet Cells Not Reportable 03/06/19 05:57 Ling-[place] Bodies Not Reportable 03/06/19 05:57 [place] Rings Not Reportable 03/06/19 05:57 Lora Cells Not Reportable 03/06/19 05:57 Bite Cells Not Reportable 03/06/19 05:57 Crenated Cell Not Reportable 03/06/19 05:57 Elliptocytes Not Reportable 03/06/19 05:57 Acanthocytes (Spur) Not Reportable 03/06/19 05:57 Rouleaux Not Reportable 03/06/19 05:57 Hemoglobin C Crystals Not Reportable 03/06/19 05:57 Schistocytes Not Reportable 03/06/19 05:57 Malaria parasites Not Reportable 03/06/19 05:57 Galen Bodies Not Reportable 03/06/19 05:57 Hem Pathologist Commnt No 03/06/19 05:57 PT 12.8 Sec. (12.2-14.9) 03/08/19 09:33 INR 0.97 (0.87-1.13) 03/08/19 09:33 POC ABG pH 7.375 (7.35-7.45) 03/05/19 03:29 POC ABG pCO2 42.4 (35-45) 03/05/19 03:29 POC ABG pO2 109 (80-105) H 03/05/19 03:29 POC ABG HCO3 24.7 (22-26 mml/L) 03/05/19 03:29 POC ABG Total CO2 26 (23-27mmol/L) 03/05/19 03:29 POC ABG O2 Sat 98 03/05/19 03:29 POC ABG Base Excess 0 ((-2) - (+3)mmol/L) 03/05/19 03:29 FiO2 40 % 03/05/19 03:29 Sodium 130 mmol/L (137-145) L 03/15/19 06:07 Potassium 4.8 mmol/L (3.6-5.0) 03/15/19 06:07 Chloride 95.5 mmol/L (98-107) L 03/15/19 06:07 Carbon Dioxide 19 mmol/L (22-30) L 03/15/19 06:07 Anion Gap 20 mmol/L 03/15/19 06:07 BUN 50 mg/dL (7-17) H 03/15/19 06:07 Creatinine 1.5 mg/dL (0.7-1.2) H 03/15/19 06:07 Estimated GFR 41 ml/min 03/15/19 06:07 BUN/Creatinine Ratio 33 % 03/15/19 06:07 Glucose 150 mg/dL (65-100) H 03/15/19 06:07 POC Glucose 140 (70-105) H 03/15/19 07:48 Hemoglobin A1c 6.6 % (4-6) H 03/05/19 05:47 Lactic Acid 1.20 mmol/L (0.7-2.0) 03/05/19 05:47 Calcium 8.5 mg/dL (8.4-10.2) 03/15/19 06:07 Magnesium 2.00 mg/dL (1.7-2.3) 03/08/19 17:07 Total Bilirubin 0.20 mg/dL (0.1-1.2) 03/06/19 05:57 AST 20 units/L (5-40) 03/06/19 05:57 ALT 22 units/L (7-56) 03/06/19 05:57 Alkaline Phosphatase 80 units/L (35-129) 03/06/19 05:57 Troponin T 0.192 ng/mL (0.00-0.029) H* 03/04/19 23:02 NT-Pro-B Natriuret Pep 36341 pg/mL (0-900) H 03/04/19 23:02 Total Protein 6.7 g/dL (6.3-8.2) 03/06/19 05:57 Albumin 2.9 g/dL (3.9-5) L 03/06/19 05:57 Albumin/Globulin Ratio 0.8 % 03/06/19 05:57 Triglycerides 96 mg/dL (2-149) 03/04/19 23:02 Cholesterol 155 mg/dL (50-199) 03/04/19 23:02 LDL Cholesterol Direct 43 mg/dL (50-130) L 03/04/19 23:02 HDL Cholesterol 98 mg/dL (40-59) H 03/04/19 23:02 Cholesterol/HDL Ratio 1.58 % 03/04/19 23:02 Vancomycin Trough 21.9 ug/mL (5.0-20.0) H 03/08/19 11:00 Blood Type O POSITIVE 03/05/19 07:10 Antibody Screen Negative 03/05/19 07:10 Crossmatch See Detail 03/05/19 07:10 Active Medications - Current Medications Current Medications: Generic Name Dose Route Start Last Admin Trade Name Freq PRN Reason Stop Dose Admin Acetaminophen 650 mg 03/05/19 03:59 03/12/19 15:17 Tylenol PO 650 mg Q4H PRN Administration Pain MILD(1-3)/Fever >100.5/BRENNER Albuterol 2.5 mg 03/05/19 04:20 03/08/19 01:15 Proventil IH 2.5 mg Q3HRT PRN Administration Shortness Of Breath Albuterol/Ipratropium 1 ampul 03/05/19 14:00 03/15/19 08:46 Duoneb *Not For Prn Use* IH 1 ampul TIDRT MAYLIN Administration Allopurinol 100 mg 03/05/19 10:00 03/15/19 10:49 Zyloprim PO 100 mg DAILY MAYLIN Administration Aspirin 325 mg 03/05/19 10:00 03/15/19 10:50 Ecotrin PO 325 mg QDAY [facility] Administration Atorvastatin Calcium 40 mg 03/05/19 22:00 03/14/19 23:46 Lipitor PO 40 mg QHS [facility] Administration Cilostazol 50 mg 03/05/19 10:00 03/15/19 10:50 Pletal PO 50 mg BID MAYLIN Administration Diphenhydramine HCl 25 mg 03/12/19 11:53 Benadryl IV Q6H PRN Itching Ferrous Sulfate 325 mg 03/05/19 10:00 03/15/19 10:50 Feosol PO 325 mg DAILY [facility] Administration Folic Acid 1 mg 03/05/19 10:00 03/15/19 10:49 Folvite PO 1 mg QDAY [facility] Administration Heparin Sodium (Porcine) 5,000 unit 03/05/19 10:00 03/15/19 10:50 Heparin SUB-Q 5,000 unit Q12HR MAYLIN Administration Hydralazine HCl 10 mg 03/05/19 12:10 03/15/19 08:40 Apresoline IV 10 mg Q4HR PRN Administration SBP>170 or DBP>110 Hydralazine HCl 50 mg 03/06/19 14:00 03/15/19 10:50 Apresoline PO Not Given Q8HR [facility] Hydromorphone HCl 0.5 mg 03/05/19 03:59 03/14/19 08:35 Dilaudid IV 0.5 mg Q3H PRN Administration Pain , Severe (7-10) Hydroxyzine HCl 10 mg 03/12/19 16:02 Atarax PO Q6H PRN Itching Insulin Human Isoph/Insulin Regular 10 unit 03/06/19 09:30 03/15/19 08:27 Humulin 70/30 SUB-Q Not Given BIDDIAB [facility] Insulin Human Lispro 0 unit 03/05/19 07:30 03/15/19 08:27 Humalog SUB-Q Not Given ACHS [facility] Protocol Isosorbide Mononitrate 120 mg 03/05/19 10:00 03/15/19 10:49 Imdur PO 120 mg QDAY [facility] Administration Metoclopramide HCl 10 mg 03/05/19 03:59 Reglan IV Q6H PRN Nausea And Vomiting Metoprolol Tartrate 50 mg 03/05/19 08:00 03/15/19 10:50 Metoprolol PO 50 mg BID@0800,1700 [facility] Administration Nitroglycerin 0.4 mg 03/07/19 22:30 03/10/19 20:50 Nitrostat SL 0.4 mg .Q5MIN PRN Administration Chest Pain Ondansetron HCl 4 mg 03/05/19 03:59 Zofran IV Q3H PRN Nausea And Vomiting Oxycodone/Acetaminophen 1 tab 03/05/19 03:59 03/14/19 05:14 Percocet 5/325 PO 1 tab Q6H PRN Administration Pain, Moderate (4-6) Pantoprazole Sodium 40 mg 03/05/19 10:00 03/15/19 10:49 Protonix PO 40 mg QDAY MAYLIN Administration Sodium Chloride 10 ml 03/05/19 10:00 03/15/19 10:51 Sodium Chloride Flush Syringe 10 Ml IV 10 ml BID [facility]LIN Administration Sodium Chloride 10 ml 03/05/19 03:59 Sodium Chloride Flush Syringe 10 Ml IV PRN PRN LINE FLUSH Nutrition/Malnutrition Assess - Dietary Evaluation Nutrition/Malnutrition Findings: Nutrition Notes Start: 03/12/19 12:38 Freq: Status: Active Protocol: Document 03/12/19 12:38 CT (Rec: 03/12/19 12:48 CT [id number]) Co-Sign 03/12/19 12:38 LP Nutrition Notes Need for Assessment generated from: LOS Initial or Follow up Assessment Current Diagnosis Acute Kidney Injury,COPD, Coronary Artery Disease, Diabetes,Sepsis,Hypertension, Heart Failure,Hyperlipidemia Other Pertinent Diagnosis Bilat lung carcinoma, Gout, GERD Current Diet Cardiac/consistent CHO Labs/Tests Na 131 BUN 58 Creatinine 1.7 Glu 146 Pertinent Medications Humalog Lasix Height 5 ft 4 in Weight 77.5 kg Usual Body Weight 63.957 kg [place] Body Weight (kg) 54.54 BMI 29.3 Intake Prior to Admission Fair Weight Status Obese Subjective/Other Information LOS screen. Pt stated that she has a good appetite now. Pt has issues chewing, mechanical soft diet modificaiton was ordered. Pt stated that she ate about half of her breakfast. Per physical assessment pt has bilat weak triple valve mechanic strength, 2+ pitting edema, and a skin risk of 16 Burn Absent Trauma Absent GI Symptoms None Difficulty In Chewing Current % PO Fair (50-74%) Minimum of two criteria Yes Fluid Accumulation Moderate to Severe (severe) Reduced Clinical Rehabilitation Liaison Strength Measurably Reduced (severe) #1 Nutrition Diagnosis Malnutrition Etiology multiple chronic illnesses As Evidenced by Signs and Symptoms +2 pitting edema, bilat reduced triple valve mechanic strength Is patient on ventilator? No Is Patient Ambulatory and/or Out of Bed Yes REE-([facility]-ambulatory/OOB) [ 1631.500 [id number]] Calculation Used for Recommendations [facility] Additional Notes Protein needs: 79-99 g/kg/day (1.2-1.5 g/kg/day AdBW 66kg) Fluid needs: per MD Nutrition Intervention Change Diet Order: Add mechanical soft modification to cardiac/ consistent CHO Add Supplement/Snack (indicate name/kcal Add Glucerna Daily /protein ) Provides kCal: 220 Provides Protein (gm) 10 Goal #1 Meet >75% of energy and protein needs Anticipated Discharge Needs: Mechanical soft cardiac/ consistent CHO Follow-Up By: 03/16/19 Additional Comments Follow up for PO intake and ONS need
--- NOTE | 2019-03-15 12:10 | Progress Note ---
Assessment and Plan 73 y/o female with squamous cell carcinoma of the lung, now with recurrent left sided effusion, larger this time. 1. Pleurx today. IR to speak with Daughter. 2. Follow up heme recs 3. overall prognosis is poor Subjective Date of service: 03/15/19 Principal diagnosis: lung ca Interval history: NPO for pleurx placement. Reviewed CT of chest. Objective Vital Signs - 12hr 03/15/19 03/15/19 03/15/19 04:32 08:33 09:45 Temperature 98.0 F Pulse Rate 105 H 132 H 78 Pulse Rate [ From Monitor] Respiratory 18 Rate Blood Pressure 158/60 219/91 Blood Pressure 146/75 [Left] O2 Sat by Pulse 99 98 100 Oximetry 03/15/19 03/15/19 03/15/19 10:49 10:50 11:29 Temperature Pulse Rate 78 78 Pulse Rate [ 132 H From Monitor] Respiratory Rate Blood Pressure 146/75 146/75 Blood Pressure [Left] O2 Sat by Pulse 98 Oximetry Constitutional: no acute distress, alert Eyes: non-icteric ENT: oropharynx moist Neck: supple Ascultation: Bilateral: clear, diminished breath sounds Cardiovascular: regular rate and rhythm Gastrointestinal: normoactive bowel sounds, soft, non-tender, non-distended Integumentary: normal Extremities: no cyanosis Neurologic: normal mental status, non-focal exam Psychiatric: mood appropriate, affect normal CBC and BMP: 03/13/19 04:44 03/15/19 06:07 ABG, PT/INR, D-dimer: ABG POC ABG pH 7.375 (7.35-7.45) 03/05/19 03:29 POC ABG pCO2 42.4 (35-45) 03/05/19 03:29 POC ABG pO2 109 (80-105) H 03/05/19 03:29 POC ABG HCO3 24.7 (22-26 mml/L) 03/05/19 03:29 POC ABG Total CO2 26 (23-27mmol/L) 03/05/19 03:29 POC ABG O2 Sat 98 03/05/19 03:29 PT/INR, D-dimer PT 12.8 Sec. (12.2-14.9) 03/08/19 09:33 INR 0.97 (0.87-1.13) 03/08/19 09:33 Abnormal lab findings: Abnormal Labs 03/04/19 03/04/19 03/04/19 23:02 23:02 23:02 WBC 26.4 H RBC 3.09 L Hgb 7.7 L Hct 24.9 L MCH 25 L RDW 20.7 H Plt Count 491 H Lymph % (Auto) Holt % (Auto) Lymph # Holt # Seg Neutrophils % Seg Neuts % (Manual) 96.0 H Lymphocytes % (Manual) 1.0 L Seg Neutrophils # Seg Neutrophils # Man 25.3 H Lymphocytes # (Manual) 0.3 L Eosinophils # (Manual) 0.5 H POC ABG pO2 Sodium 135 L Chloride Carbon Dioxide BUN 37 H Creatinine Glucose 338 H POC Glucose Hemoglobin A1c Calcium 8.2 L Troponin T 0.192 H* NT-Pro-B Natriuret Pep 18559 H Albumin 2.9 L LDL Cholesterol Direct 43 L HDL Cholesterol 98 H Vancomycin Trough Crossmatch 03/05/19 03/05/19 03/05/19 03:29 05:47 07:10 WBC RBC Hgb Hct MCH RDW Plt Count Lymph % (Auto) Holt % (Auto) Lymph # Holt # Seg Neutrophils % Seg Neuts % (Manual) Lymphocytes % (Manual) Seg Neutrophils # Seg Neutrophils # Man Lymphocytes # (Manual) Eosinophils # (Manual) POC ABG pO2 109 H Sodium Chloride Carbon Dioxide BUN Creatinine Glucose POC Glucose Hemoglobin A1c 6.6 H Calcium Troponin T NT-Pro-B Natriuret Pep Albumin LDL Cholesterol Direct HDL Cholesterol Vancomycin Trough Crossmatch See Detail 03/05/19 03/05/19 03/05/19 08:44 12:35 16:29 WBC RBC Hgb Hct MCH RDW Plt Count Lymph % (Auto) Holt % (Auto) Lymph # Holt # Seg Neutrophils % Seg Neuts % (Manual) Lymphocytes % (Manual) Seg Neutrophils # Seg Neutrophils # Man Lymphocytes # (Manual) Eosinophils # (Manual) POC ABG pO2 Sodium Chloride Carbon Dioxide BUN Creatinine Glucose POC Glucose 295 H 292 H 243 H Hemoglobin A1c Calcium Troponin T NT-Pro-B Natriuret Pep Albumin LDL Cholesterol Direct HDL Cholesterol Vancomycin Trough Crossmatch 03/05/19 03/06/19 03/06/19 21:52 05:57 05:57 WBC 15.6 H RBC 3.45 L Hgb 9.0 L Hct 28.3 L MCH 26 L RDW 20.6 H Plt Count Lymph % (Auto) Holt % (Auto) Lymph # Holt # Seg Neutrophils % Seg Neuts % (Manual) 97.0 H Lymphocytes % (Manual) 3.0 L Seg Neutrophils # Seg Neutrophils # Man 15.1 H Lymphocytes # (Manual) 0.5 L Eosinophils # (Manual) POC ABG pO2 Sodium 134 L Chloride Carbon Dioxide 21 L BUN 38 H Creatinine Glucose 342 H POC Glucose 266 H Hemoglobin A1c Calcium 8.3 L Troponin T NT-Pro-B Natriuret Pep Albumin 2.9 L LDL Cholesterol Direct HDL Cholesterol Vancomycin Trough Crossmatch 03/06/19 03/06/19 03/06/19 08:37 10:28 14:59 WBC RBC Hgb Hct MCH RDW Plt Count Lymph % (Auto) Holt % (Auto) Lymph # Holt # Seg Neutrophils % Seg Neuts % (Manual) Lymphocytes % (Manual) Seg Neutrophils # Seg Neutrophils # Man Lymphocytes # (Manual) Eosinophils # (Manual) POC ABG pO2 Sodium Chloride Carbon Dioxide BUN Creatinine Glucose POC Glucose 386 H 403 H 212 H Hemoglobin A1c Calcium Troponin T NT-Pro-B Natriuret Pep Albumin LDL Cholesterol Direct HDL Cholesterol Vancomycin Trough Crossmatch 03/06/19 03/07/19 03/07/19 21:00 05:12 08:07 WBC 15.3 H RBC 3.12 L Hgb 8.2 L Hct 25.6 L MCH 26 L RDW 20.7 H Plt Count Lymph % (Auto) Holt % (Auto) Lymph # Holt # Seg Neutrophils % Seg Neuts % (Manual) Lymphocytes % (Manual) Seg Neutrophils # Seg Neutrophils # Man Lymphocytes # (Manual) Eosinophils # (Manual) POC ABG pO2 Sodium Chloride Carbon Dioxide BUN Creatinine Glucose POC Glucose 195 H 293 H Hemoglobin A1c Calcium Troponin T NT-Pro-B Natriuret Pep Albumin LDL Cholesterol Direct HDL Cholesterol Vancomycin Trough Crossmatch 03/07/19 03/07/19 03/07/19 12:02 17:02 21:12 WBC RBC Hgb Hct MCH RDW Plt Count Lymph % (Auto) Holt % (Auto) Lymph # Holt # Seg Neutrophils % Seg Neuts % (Manual) Lymphocytes % (Manual) Seg Neutrophils # Seg Neutrophils # Man Lymphocytes # (Manual) Eosinophils # (Manual) POC ABG pO2 Sodium Chloride Carbon Dioxide BUN Creatinine Glucose POC Glucose 330 H 282 H 317 H Hemoglobin A1c Calcium Troponin T NT-Pro-B Natriuret Pep Albumin LDL Cholesterol Direct HDL Cholesterol Vancomycin Trough Crossmatch 03/08/19 03/08/19 03/08/19 08:31 11:00 12:02 WBC RBC Hgb Hct MCH RDW Plt Count Lymph % (Auto) Holt % (Auto) Lymph # Holt # Seg Neutrophils % Seg Neuts % (Manual) Lymphocytes % (Manual) Seg Neutrophils # Seg Neutrophils # Man Lymphocytes # (Manual) Eosinophils # (Manual) POC ABG pO2 Sodium Chloride Carbon Dioxide BUN Creatinine Glucose POC Glucose 236 H 301 H Hemoglobin A1c Calcium Troponin T NT-Pro-B Natriuret Pep Albumin LDL Cholesterol Direct HDL Cholesterol Vancomycin Trough 21.9 H Crossmatch 03/08/19 03/08/19 03/08/19 16:07 17:07 22:45 WBC RBC Hgb Hct MCH RDW Plt Count Lymph % (Auto) Holt % (Auto) Lymph # Holt # Seg Neutrophils % Seg Neuts % (Manual) Lymphocytes % (Manual) Seg Neutrophils # Seg Neutrophils # Man Lymphocytes # (Manual) Eosinophils # (Manual) POC ABG pO2 Sodium 131 L Chloride Carbon Dioxide 20 L BUN 49 H Creatinine 1.3 H Glucose 289 H POC Glucose 296 H 192 H Hemoglobin A1c Calcium Troponin T NT-Pro-B Natriuret Pep Albumin LDL Cholesterol Direct HDL Cholesterol Vancomycin Trough Crossmatch 03/09/19 03/09/19 03/09/19 08:31 11:01 12:11 WBC RBC Hgb Hct MCH RDW Plt Count Lymph % (Auto) Holt % (Auto) Lymph # Holt # Seg Neutrophils % Seg Neuts % (Manual) Lymphocytes % (Manual) Seg Neutrophils # Seg Neutrophils # Man Lymphocytes # (Manual) Eosinophils # (Manual) POC ABG pO2 Sodium Chloride Carbon Dioxide BUN Creatinine Glucose POC Glucose 60 L 183 H 219 H Hemoglobin A1c Calcium Troponin T NT-Pro-B Natriuret Pep Albumin LDL Cholesterol Direct HDL Cholesterol Vancomycin Trough Crossmatch 03/09/19 03/09/19 03/10/19 16:15 21:08 04:53 WBC RBC Hgb Hct MCH RDW Plt Count Lymph % (Auto) Holt % (Auto) Lymph # Holt # Seg Neutrophils % Seg Neuts % (Manual) Lymphocytes % (Manual) Seg Neutrophils # Seg Neutrophils # Man Lymphocytes # (Manual) Eosinophils # (Manual) POC ABG pO2 Sodium 133 L Chloride Carbon Dioxide 19 L BUN 57 H Creatinine 1.4 H Glucose POC Glucose 202 H 115 H Hemoglobin A1c Calcium 8.1 L Troponin T NT-Pro-B Natriuret Pep Albumin LDL Cholesterol Direct HDL Cholesterol Vancomycin Trough Crossmatch 03/10/19 03/10/19 03/10/19 10:19 11:32 18:24 WBC RBC Hgb Hct MCH RDW Plt Count Lymph % (Auto) Holt % (Auto) Lymph # Holt # Seg Neutrophils % Seg Neuts % (Manual) Lymphocytes % (Manual) Seg Neutrophils # Seg Neutrophils # Man Lymphocytes # (Manual) Eosinophils # (Manual) POC ABG pO2 Sodium Chloride Carbon Dioxide BUN Creatinine Glucose POC Glucose 151 H 146 H 106 H Hemoglobin A1c Calcium Troponin T NT-Pro-B Natriuret Pep Albumin LDL Cholesterol Direct HDL Cholesterol Vancomycin Trough Crossmatch 03/11/19 03/11/19 03/11/19 04:34 11:14 16:29 WBC RBC Hgb Hct MCH RDW Plt Count Lymph % (Auto) Holt % (Auto) Lymph # Holt # Seg Neutrophils % Seg Neuts % (Manual) Lymphocytes % (Manual) Seg Neutrophils # Seg Neutrophils # Man Lymphocytes # (Manual) Eosinophils # (Manual) POC ABG pO2 Sodium 131 L Chloride Carbon Dioxide 20 L BUN 57 H Creatinine 1.7 H Glucose 189 H POC Glucose 158 H 119 H Hemoglobin A1c Calcium 7.7 L Troponin T NT-Pro-B Natriuret Pep Albumin LDL Cholesterol Direct HDL Cholesterol Vancomycin Trough Crossmatch 03/11/19 03/12/19 03/12/19 20:48 05:41 05:41 WBC 16.1 H RBC 3.24 L Hgb 8.6 L Hct 26.6 L MCH 27 L RDW 20.8 H Plt Count Lymph % (Auto) 5.4 L Holt % (Auto) 7.4 H Lymph # 0.9 L Holt # 1.2 H Seg Neutrophils % 83.9 H Seg Neuts % (Manual) Lymphocytes % (Manual) Seg Neutrophils # 13.5 H Seg Neutrophils # Man Lymphocytes # (Manual) Eosinophils # (Manual) POC ABG pO2 Sodium 131 L Chloride 94.2 L Carbon Dioxide 17 L BUN 58 H Creatinine 1.7 H Glucose 146 H POC Glucose 258 H Hemoglobin A1c Calcium 7.9 L Troponin T NT-Pro-B Natriuret Pep Albumin LDL Cholesterol Direct HDL Cholesterol Vancomycin Trough Crossmatch 03/12/19 03/12/19 03/12/19 09:01 12:51 15:32 WBC RBC Hgb Hct MCH RDW Plt Count Lymph % (Auto) Holt % (Auto) Lymph # Holt # Seg Neutrophils % Seg Neuts % (Manual) Lymphocytes % (Manual) Seg Neutrophils # Seg Neutrophils # Man Lymphocytes # (Manual) Eosinophils # (Manual) POC ABG pO2 Sodium Chloride Carbon Dioxide BUN Creatinine Glucose POC Glucose 135 H 191 H 171 H Hemoglobin A1c Calcium Troponin T NT-Pro-B Natriuret Pep Albumin LDL Cholesterol Direct HDL Cholesterol Vancomycin Trough Crossmatch 03/12/19 03/13/19 03/13/19 20:27 04:44 04:44 WBC 13.0 H RBC 3.29 L Hgb 8.8 L Hct 26.9 L MCH 27 L RDW 20.8 H Plt Count Lymph % (Auto) 6.6 L Holt % (Auto) 8.2 H Lymph # 0.9 L Holt # 1.1 H Seg Neutrophils % 81.5 H Seg Neuts % (Manual) Lymphocytes % (Manual) Seg Neutrophils # 10.6 H Seg Neutrophils # Man Lymphocytes # (Manual) Eosinophils # (Manual) POC ABG pO2 Sodium 131 L Chloride 97.9 L Carbon Dioxide BUN 56 H Creatinine 1.8 H Glucose 148 H POC Glucose 203 H Hemoglobin A1c Calcium 8.2 L Troponin T NT-Pro-B Natriuret Pep Albumin LDL Cholesterol Direct HDL Cholesterol Vancomycin Trough Crossmatch 03/13/19 03/13/19 03/13/19 09:10 12:24 23:27 WBC RBC Hgb Hct MCH RDW Plt Count Lymph % (Auto) Holt % (Auto) Lymph # Holt # Seg Neutrophils % Seg Neuts % (Manual) Lymphocytes % (Manual) Seg Neutrophils # Seg Neutrophils # Man Lymphocytes # (Manual) Eosinophils # (Manual) POC ABG pO2 Sodium Chloride Carbon Dioxide BUN Creatinine Glucose POC Glucose 186 H 150 H 128 H Hemoglobin A1c Calcium Troponin T NT-Pro-B Natriuret Pep Albumin LDL Cholesterol Direct HDL Cholesterol Vancomycin Trough Crossmatch 03/14/19 03/14/19 03/14/19 12:05 12:08 16:09 WBC RBC Hgb Hct MCH RDW Plt Count Lymph % (Auto) Holt % (Auto) Lymph # Holt # Seg Neutrophils % Seg Neuts % (Manual) Lymphocytes % (Manual) Seg Neutrophils # Seg Neutrophils # Man Lymphocytes # (Manual) Eosinophils # (Manual) POC ABG pO2 Sodium 132 L Chloride 96.0 L Carbon Dioxide 18 L BUN 50 H Creatinine 1.6 H Glucose 192 H POC Glucose 189 H 230 H Hemoglobin A1c Calcium 8.2 L Troponin T NT-Pro-B Natriuret Pep Albumin LDL Cholesterol Direct HDL Cholesterol Vancomycin Trough Crossmatch 03/14/19 03/15/19 03/15/19 21:18 06:07 07:48 WBC RBC Hgb Hct MCH RDW Plt Count Lymph % (Auto) Holt % (Auto) Lymph # Holt # Seg Neutrophils % Seg Neuts % (Manual) Lymphocytes % (Manual) Seg Neutrophils # Seg Neutrophils # Man Lymphocytes # (Manual) Eosinophils # (Manual) POC ABG pO2 Sodium 130 L Chloride 95.5 L Carbon Dioxide 19 L BUN 50 H Creatinine 1.5 H Glucose 150 H POC Glucose 165 H 140 H Hemoglobin A1c Calcium Troponin T NT-Pro-B Natriuret Pep Albumin LDL Cholesterol Direct HDL Cholesterol Vancomycin Trough Crossmatch
--- NOTE | 2019-03-15 12:35 | Consultation ---
History of Present Illness - Reason for Consult Consult date: 03/15/19 Pleural catheter - History of Present Illness 73-year-old female with advanced stage IV left-sided lung cancer with severe s hortness of breath who is was recent transfered to [facility] and was readmitted with shortness of breath. Effusion vs atlectasis. She was placed on bipap and now is doing better w o2 sat on ra at 94%. During her hospitalization, the patient was found to have atelectasis and mass involving of the left upper lobe occupying most of left anterior hemithorax. She had a thoracentesis which had malignant fluid but this quickly reexpanded within the next few days. I had a long discussion with Dr. Carey and the patient regarding the situation. I attempted to contact the patient's daughter but she did not spanish moss picker the phone. Past History Past Medical History: CAD, cancer, COPD, diabetes, GERD, heart failure, other (gout, cardiomyopathy ) Past Surgical History: No surgical history Social history: smoking Family history: cancer, diabetes, hypertension Medications and Allergies Allergies Allergy/AdvReac Type Severity Reaction Status Date / Time ibuprofen Allergy Unknown Verified 02/18/19 23:29 Penicillins Allergy Unknown Verified 02/18/19 23:29 Home Medications Medication Instructions Recorded Confirmed Last Taken Type Allopurinol 100 mg PO DAILY 12/26/18 03/05/19 03/04/19 History Cilostazol 50 mg PO BID 12/26/18 03/05/19 03/04/19 History Ferrous Sulfate 325 mg PO DAILY 12/26/18 03/05/19 03/04/19 History Ipratropium (Nf) [Atrovent HFA 2 puff IH Q6HR PRN #1 inha 01/11/19 03/05/19 Unknown Rx 17MCG/PUFF] AtorvaSTATin [Lipitor] 40 mg PO QHS 02/09/19 03/05/19 03/04/19 History Pantoprazole [Protonix TAB] 40 mg PO QDAY #30 tablet 02/16/19 03/05/19 Unknown Rx hydrALAZINE [Apresoline TAB] 25 mg PO Q8HR #90 tablet 02/16/19 03/05/19 03/04/19 Rx Furosemide [Lasix TAB] 20 mg PO QDAY tablet 03/01/19 03/05/19 03/04/19 Rx ISOSORBIDE MONOnitrate [Imdur ER] 120 mg PO QDAY tablet 03/01/19 03/05/19 03/04/19 Rx Metoprolol [Lopressor TAB] 50 mg PO BID tablet 03/01/19 03/05/19 Unknown Rx Aspirin EC 325 mg PO QDAY #30 tablet 03/03/19 03/05/19 03/04/19 Rx Folic Acid [Folvite] 1 mg PO QDAY #30 tablet 03/03/19 03/05/19 03/04/19 Rx Insulin NPH/Regular [NovoLIN 70/30] 8 unit SUB-Q ACHS 03/05/19 03/05/19 Unknown History Active Meds: Active Medications Acetaminophen (Tylenol) 650 mg PO Q4H PRN PRN Reason: Pain MILD(1-3)/Fever >100.5/BRENNER Last Admin: 03/12/19 15:17 Dose: 650 mg Documented by: Albuterol (Proventil) 2.5 mg IH Q3HRT PRN PRN Reason: Shortness Of Breath Last Admin: 03/08/19 01:15 Dose: 2.5 mg Documented by: Albuterol/Ipratropium (Duoneb *Not For Prn Use*) 1 ampul IH TIDRT [facility] Last Admin: 03/15/19 08:46 Dose: 1 ampul Documented by: Allopurinol (Zyloprim) 100 mg PO DAILY [facility] Last Admin: 03/15/19 10:49 Dose: 100 mg Documented by: Aspirin (Ecotrin) 325 mg PO QDAY [facility] Last Admin: 03/15/19 10:50 Dose: 325 mg Documented by: Atorvastatin Calcium (Lipitor) 40 mg PO QHS [facility] Last Admin: 03/14/19 23:46 Dose: 40 mg Documented by: Cilostazol (Pletal) 50 mg PO BID [facility] Last Admin: 03/15/19 10:50 Dose: 50 mg Documented by: Diphenhydramine HCl (Benadryl) 25 mg IV Q6H PRN PRN Reason: Itching Ferrous Sulfate (Feosol) 325 mg PO DAILY [facility] Last Admin: 03/15/19 10:50 Dose: 325 mg Documented by: Folic Acid (Folvite) 1 mg PO QDAY [facility] Last Admin: 03/15/19 10:49 Dose: 1 mg Documented by: Heparin Sodium (Porcine) (Heparin) 5,000 unit SUB-Q Q12HR [facility] Last Admin: 03/15/19 10:50 Dose: 5,000 unit Documented by: Hydralazine HCl (Apresoline) 10 mg IV Q4HR PRN PRN Reason: SBP>170 or DBP>110 Last Admin: 03/15/19 08:40 Dose: 10 mg Documented by: Hydralazine HCl (Apresoline) 50 mg PO Q8HR [facility] Last Admin: 03/15/19 10:50 Dose: Not Given Documented by: Hydromorphone HCl (Dilaudid) 0.5 mg IV Q3H PRN PRN Reason: Pain , Severe (7-10) Last Admin: 03/14/19 08:35 Dose: 0.5 mg Documented by: Hydroxyzine HCl (Atarax) 10 mg PO Q6H PRN PRN Reason: Itching Insulin Human Isoph/Insulin Regular (Humulin 70/30) 10 unit SUB-Q BIDDIAB [facility] Last Admin: 03/15/19 08:27 Dose: Not Given Documented by: Insulin Human Lispro (Humalog) 0 unit SUB-Q [facility]; Protocol Last Admin: 03/15/19 12:28 Dose: Not Given Documented by: Isosorbide Mononitrate (Imdur) 120 mg PO QDAY [facility] Last Admin: 03/15/19 10:49 Dose: 120 mg Documented by: Metoclopramide HCl (Reglan) 10 mg IV Q6H PRN PRN Reason: Nausea And Vomiting Metoprolol Tartrate (Metoprolol) 50 mg PO BID@0800,1700 [facility] Last Admin: 03/15/19 10:50 Dose: 50 mg Documented by: Nitroglycerin (Nitrostat) 0.4 mg SL .Q5MIN PRN PRN Reason: Chest Pain Last Admin: 03/10/19 20:50 Dose: 0.4 mg Documented by: Ondansetron HCl (Zofran) 4 mg IV Q3H PRN PRN Reason: Nausea And Vomiting Oxycodone/Acetaminophen (Percocet 5/325) 1 tab PO Q6H PRN PRN Reason: Pain, Moderate (4-6) Last Admin: 03/14/19 05:14 Dose: 1 tab Documented by: Pantoprazole Sodium (Protonix) 40 mg PO QDAY [facility] Last Admin: 03/15/19 10:49 Dose: 40 mg Documented by: Sodium Chloride (Sodium Chloride Flush Syringe 10 Ml) 10 ml IV BID [facility] Last Admin: 03/15/19 10:51 Dose: 10 ml Documented by: Sodium Chloride (Sodium Chloride Flush Syringe 10 Ml) 10 ml IV PRN PRN PRN Reason: LINE FLUSH Review of Systems All systems: negative (see HPI) Exam - Constitutional Vitals: Temp Pulse Resp BP Pulse Ox 98.0 F 132 H 18 146/75 98 03/15/19 04:32 03/15/19 11:29 03/15/19 04:32 03/15/19 10:50 03/15/19 11:29 General appearance: Present: mild distress (respiratory ) - EENT Eyes: Present: EOM intact ENT: hearing intact - Respiratory Respiratory effort: labored - Psychiatric Psychiatric: appropriate mood/affect, cooperative Results - Labs CBC & Chem 7: 03/13/19 04:44 03/15/19 06:07 Labs: Abnormal lab results 03/14/19 03/14/19 03/14/19 Range/Units 12:08 16:09 21:18 Sodium 132 L (137-145) mmol/L Chloride 96.0 L (98-107) mmol/L Carbon Dioxide 18 L (22-30) mmol/L BUN 50 H (7-17) mg/dL Creatinine 1.6 H (0.7-1.2) mg/dL Glucose 192 H (65-100) mg/dL POC Glucose 230 H 165 H (70-105) Calcium 8.2 L (8.4-10.2) mg/dL 03/15/19 03/15/19 Range/Units 06:07 07:48 Sodium 130 L (137-145) mmol/L Chloride 95.5 L (98-107) mmol/L Carbon Dioxide 19 L (22-30) mmol/L BUN 50 H (7-17) mg/dL Creatinine 1.5 H (0.7-1.2) mg/dL Glucose 150 H (65-100) mg/dL POC Glucose 140 H (70-105) Calcium (8.4-10.2) mg/dL Assessment and Plan 73-year-old female with advanced stage IV left-sided lung cancer with invasion of the left upper lobe resulting in mass and atelectasis of this lobe with subsequent malignant infusion resulting in complete collapse of the left long. Patient had thoracentesis performed but had rapid reaccumulation. Her thoracentesis had malignant cells. Discussed with patient that the post thoracentesis respiratory status would be her optimal status and she understands and agrees with tunneled pleural catheter placement. She wants to have the procedure done after the risks, benefits, and alternatives discussed. I discussed the situation with Dr. Carey and he told me that the patient's da ughter will be able to assist the patient with tunneled pleural catheter drainage. If this is the case, I'll attempt to bring patient down for left- sided pleural tunneled catheter placement.
[2019-03-15] MEDS ORDERED: SODIUM CHLORIDE 0.9% 500 ML 500 ML IV SCH (14:00)
[2019-03-15] MEDS ORDERED: SODIUM CHLORIDE 0.9% 500 ML 500 ML ONE (14:01)
--- NOTE | 2019-03-15 14:20 | Progress Note ---
Assessment and Plan Patient was noted to develop AFib over the weekend. She has no prior documented h/o atrial fibrillation. She is noted to be in ST on tele with brief bouts of AFib RVR HR 150s overnight. Optimize HR - d/c hydralazine as this medication can contribute to tachycardia and increase lopressor dosage. [id number] score is 7; however, pt is pending tunneled pleural catheter placement and thus will defer oral anticoagulation until after invasive procedure is done. If okay with vascular team, can consider heparin gtt in the interim. She is currently on ASA and Pletal for PAD. The patient has been seen in conjunction with Dr. Lynn who agrees with the assessment and plan of care. - Patient Problems (1) Paroxysmal atrial fibrillation with RVR Current Visit: Yes Status: Acute (2) Pleural effusion Current Visit: Yes Status: Acute (3) Lung cancer Current Visit: Yes Status: Suspected (4) CAD (coronary artery disease) Current Visit: Yes Status: Chronic Qualifiers: Coronary Disease-Associated Artery/Lesion type: kenaitze artery (5) Stented coronary artery Current Visit: Yes Status: Chronic (6) Cardiomyopathy Current Visit: Yes Status: Chronic (7) Abnormal stress test Current Visit: Yes Status: Chronic (8) PAD (peripheral artery disease) Current Visit: Yes Status: Chronic (9) NSTEMI (non-ST elevated myocardial infarction) Current Visit: Yes Status: Acute Plan to address problem: type II (10) Diabetes Current Visit: Yes Status: Chronic (11) Former tobacco use Current Visit: Yes Status: Chronic (12) Anemia Current Visit: Yes Status: Chronic (13) NSVT (nonsustained ventricular tachycardia) Current Visit: Yes Status: Acute Subjective Date of service: 03/15/19 Principal diagnosis: lung ca Interval history: Pt resting in bed, no current complaints. in ST on tele with brief bouts of AFib RVR HR 150s overnight. Objective Last Vital Signs Temp 98.0 F 03/15/19 04:32 Pulse 132 H 03/15/19 11:29 Resp 18 03/15/19 04:32 BP 146/75 03/15/19 10:50 Pulse Ox 98 03/15/19 11:29 - Physical Examination General: No Apparent Distress HEENT: Positive: PERRL Neck: Positive: trachea midline Cardiac: Positive: S1/S2, Tachycardia Lungs: Positive: Decreased Breath Sounds Neuro: Positive: Grossly Intact Abdomen: Positive: Unremarkable Skin: Positive: Clear Musculoskeletal: Decreased Range of Motion, Normal Range of Motion Extremities: Present: normal - Labs and Meds Comprehensive Metabolic Panel 03/15/19 Range/Units 06:07 Sodium 130 L (137-145) mmol/L Potassium 4.8 (3.6-5.0) mmol/L Chloride 95.5 L (98-107) mmol/L Carbon Dioxide 19 L (22-30) mmol/L BUN 50 H (7-17) mg/dL Creatinine 1.5 H (0.7-1.2) mg/dL Glucose 150 H (65-100) mg/dL Calcium 8.5 (8.4-10.2) mg/dL - Imaging and Cardiology EKG: report reviewed, image reviewed Echo: report reviewed (02/23: EF of 30 to 35 percent, impaired relaxation, mild MR, mild TR and moderately reduced RV systolic function) - Telemetry EKG Rhythm: Sinus Rhythm Repolarization changes or abnormalities: nonspecific abnormality, ST segment, and/or T wave
[2019-03-15] MEDS ORDERED: HEPARIN/NS 5000 UNIT/500ML 0 ML IR ONE (14:26)
[2019-03-15] MEDS ORDERED: SODIUM CHLORIDE IRRI 500 ML 500 ML IR ONE (14:40)
[2019-03-15] MEDS: LIDOCAINE 1%/EPINEPHRINE 1:100,000 VIAL (20 ML) INFILTRATI ONE ×3 (14:43→14:55)
--- NOTE | 2019-03-15 14:46 | Progress Note ---
Assessment and Plan 1. Acute kidney injury: Vasomotor NEELIMA superimposed on CKD stage 3. CT abdomen was negative for hydronephrosis. Urine studies ordered. Creatinine level is improving. Monitor renal function. Avoid nephrotoxic agents. Meds dosage based on GFR. 2. FEN: Metabolic acidosis, monitor. Hyponatremia, monitor. Monitor lytes. 3. 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 Followed by Pulmonary and Heme-Onc. 4. Decompensated CHF. 5. CAD: Followed by Cards. 6. DM-2. 7. Hypertension: Monitor BP. 8. Anemia: POA. Examination: General appearance: well-developed, well-nourished, appears stated age, no distress HEENT: ATNC, SKYE, hearing intact, vision intact Neck: trachea midline Respiratory: Rales (R lung base), Decreased Breath Sounds (L side) Heart: regular, S1S2, no murmur Abdomen: Soft, normoactive bowel sounds, not tender Integumentary: no rash Neurologic: no focal deficit, no asterixis, alert and oriented x3 Ext: 1+ LE edema noted Psychiatric: cooperative Subjective Date of service: 03/15/19 Principal diagnosis: lung ca Interval history: Patient was seen and examined at the bedside. Objective - Vital Signs Vital signs: Vital Signs - 12hr 03/15/19 03/15/19 03/15/19 04:32 08:33 09:45 Temperature 98.0 F Pulse Rate 105 H 132 H 78 Pulse Rate [ From Monitor] Respiratory 18 Rate Blood Pressure 158/60 219/91 Blood Pressure 146/75 [Left] O2 Sat by Pulse 99 98 100 Oximetry 03/15/19 03/15/19 03/15/19 10:00 10:49 10:50 Temperature Pulse Rate 101 H 78 78 Pulse Rate [ From Monitor] Respiratory Rate Blood Pressure 146/75 146/75 Blood Pressure [Left] O2 Sat by Pulse Oximetry 03/15/19 11:29 Temperature Pulse Rate Pulse Rate [ 132 H From Monitor] Respiratory Rate Blood Pressure Blood Pressure [Left] O2 Sat by Pulse 98 Oximetry - Lab 03/13/19 04:44 03/15/19 06:07 Most recent lab results Calcium 8.5 mg/dL (8.4-10.2) 03/15/19 06:07 Magnesium 2.00 mg/dL (1.7-2.3) 03/08/19 17:07 Medications & Allergies - Medications Allergies/Adverse Reactions: Allergies ibuprofen Allergy (Verified 02/18/19 23:29) Unknown Penicillins Allergy (Verified 02/18/19 23:29) Unknown Home Medications: Home Medications Medication Instructions Recorded Confirmed Last Taken Type Allopurinol 100 mg PO DAILY 12/26/18 03/05/19 03/04/19 History Cilostazol 50 mg PO BID 12/26/18 03/05/19 03/04/19 History Ferrous Sulfate 325 mg PO DAILY 12/26/18 03/05/19 03/04/19 History Ipratropium (Nf) [Atrovent HFA 2 puff IH Q6HR PRN #1 inha 01/11/19 03/05/19 Unknown Rx 17MCG/PUFF] AtorvaSTATin [Lipitor] 40 mg PO QHS 02/09/19 03/05/19 03/04/19 History Pantoprazole [Protonix TAB] 40 mg PO QDAY #30 tablet 02/16/19 03/05/19 Unknown Rx hydrALAZINE [Apresoline TAB] 25 mg PO Q8HR #90 tablet 02/16/19 03/05/19 03/04/19 Rx Furosemide [Lasix TAB] 20 mg PO QDAY tablet 03/01/19 03/05/19 03/04/19 Rx ISOSORBIDE MONOnitrate [Imdur ER] 120 mg PO QDAY tablet 03/01/19 03/05/19 Rx Metoprolol [Lopressor TAB] 50 mg PO BID tablet 03/01/19 03/05/19 Unknown Rx Aspirin EC 325 mg PO QDAY #30 tablet 03/03/19 03/05/19 03/04/19 Rx Folic Acid [Folvite] 1 mg PO QDAY #30 tablet 03/03/19 03/05/19 03/04/19 Rx Insulin NPH/Regular [NovoLIN 70/30] 8 unit SUB-Q ACHS 03/05/19 03/05/19 Unknown History Active Medications: Generic Name Dose Route Start Last Admin Trade Name Freq PRN Reason Stop Dose Admin Acetaminophen 650 mg 03/05/19 03:59 03/12/19 15:17 Tylenol PO 650 mg Q4H PRN Administration Pain MILD(1-3)/Fever >100.5/BRENNER Albuterol 2.5 mg 03/05/19 04:20 03/08/19 01:15 Proventil IH 2.5 mg Q3HRT PRN Administration Shortness Of Breath Albuterol/Ipratropium 1 ampul 03/05/19 14:00 03/15/19 13:40 Duoneb *Not For Prn Use* IH Not Given TIDRT MAYLIN Allopurinol 100 mg 03/05/19 10:00 03/15/19 10:49 Zyloprim PO 100 mg DAILY MAYLIN Administration Aspirin 325 mg 03/05/19 10:00 03/15/19 10:50 Ecotrin PO 325 mg QDAY MAYLIN Administration Atorvastatin Calcium 40 mg 03/05/19 22:00 03/14/19 23:46 Lipitor PO 40 mg QHS MAYLIN Administration Cilostazol 50 mg 03/05/19 10:00 03/15/19 10:50 Pletal PO 50 mg BID MAYLIN Administration Diphenhydramine HCl 25 mg 03/12/19 11:53 Benadryl IV Q6H PRN Itching Ferrous Sulfate 325 mg 03/05/19 10:00 03/15/19 10:50 Feosol PO 325 mg DAILY MAYLIN Administration Folic Acid 1 mg 03/05/19 10:00 03/15/19 10:49 Folvite PO 1 mg QDAY MAYLIN Administration Heparin Sodium (Porcine) 5,000 unit 03/05/19 10:00 03/15/19 10:50 Heparin SUB-Q 5,000 unit Q12HR MAYLIN Administration Hydralazine HCl 10 mg 03/05/19 12:10 03/15/19 08:40 Apresoline IV 10 mg Q4HR PRN Administration SBP>170 or DBP>110 Hydralazine HCl 50 mg 03/06/19 14:00 03/15/19 10:50 Apresoline PO Not Given Q8HR MAYLIN Hydromorphone HCl 0.5 mg 03/05/19 03:59 03/14/19 08:35 Dilaudid IV 0.5 mg Q3H PRN Administration Pain , Severe (7-10) Hydroxyzine HCl 10 mg 03/12/19 16:02 Atarax PO Q6H PRN Itching Sodium Chloride 500 mls @ 50 mls/hr 03/15/19 14:00 Nacl 0.9% 500 Ml IV DIRECT REPLACED BY [facility] Insulin Human Isoph/Insulin Regular 10 unit 03/06/19 09:30 03/15/19 08:27 Humulin 70/30 SUB-Q Not Given BIDDIAB REPLACED BY [facility] Insulin Human Lispro 0 unit 03/05/19 07:30 03/15/19 12:28 Humalog SUB-Q Not Given ACHS REPLACED BY [facility] Protocol Isosorbide Mononitrate 120 mg 03/05/19 10:00 03/15/19 10:49 Imdur PO 120 mg QDAY MAYLIN Administration Metoclopramide HCl 10 mg 03/05/19 03:59 Reglan IV Q6H PRN Nausea And Vomiting Metoprolol Tartrate 50 mg 03/05/19 08:00 03/15/19 10:50 Metoprolol PO 50 mg BID@0800,1700 MAYLIN Administration Nitroglycerin 0.4 mg 03/07/19 22:30 03/10/19 20:50 Nitrostat SL 0.4 mg .Q5MIN PRN Administration Chest Pain Ondansetron HCl 4 mg 03/05/19 03:59 Zofran IV Q3H PRN Nausea And Vomiting Oxycodone/Acetaminophen 1 tab 03/05/19 03:59 03/14/19 05:14 Percocet 5/325 PO 1 tab Q6H PRN Administration Pain, Moderate (4-6) Pantoprazole Sodium 40 mg 03/05/19 10:00 03/15/19 10:49 Protonix PO 40 mg QDAY MAYLIN Administration Sodium Chloride 10 ml 03/05/19 10:00 03/15/19 10:51 Sodium Chloride Flush Syringe 10 Ml IV 10 ml BID MAYLIN Administration Sodium Chloride 10 ml 03/05/19 03:59 Sodium Chloride Flush Syringe 10 Ml IV PRN PRN LINE FLUSH
[2019-03-15] MEDS ORDERED: LIDOCAINE 1%/EPINEPHRINE 1:100,000 VIAL (20 ML) INFILTRATI ONE ×3 (14:48→14:56)
[2019-03-15] MEDS: MIDAZOLAM 2 MG/2 ML INJ ONE ×2 (15:00→15:05)
[2019-03-15] MEDS: fentaNYL 100 MCG/2 ML INJ ONE ×2 (15:00→15:05)
--- NOTE | 2019-03-15 16:06 | Operative Report ---
Operative Report Operative Report: EXAM: 1. Ultrasound-guided access of the left pleural cavity 2. Placement of a left sided tunneled cuffed pleural catheter (ASPIRA) 3. Removal of 800 mL of serous fluid from the left pleural cavity DATE: 03/15/19 MEDICAL ONCOLOGIST: CAROL ACUNA MD INDICATION: Lung cancer with malignant left-sided pleural effusion status post multiple thoracenteses with moderate left pleural effusion MEDICATIONS: Please see nursing report for full details. DEVICES: None CONTRAST: None PROCEDURE: The risks, benefits, and alternatives were discussed with the patient; written informed consent was obtained. The patient was brought to the angiography suite and placed in a supine oblique position with the left chest elevated. The patient was prepped and draped in a sterile fashion. The left pleural cavity was accessed with a 21-gauge micropuncture needle under direct ultrasound guidance. 0.018 inch wire was passed into the pleural cavity. 5 Estonian transitional dilator was exchanged with the needle. Wire and inner dilator were removed. 0.035 inch Amplatz wire was advanced through the transitional dilator into the pleural cavity. Flow switch was advanced over the wire and used to lock the Amplatz wire on the transitional dilator to prevent gas exchange. An appropriate dermatotomy site was selected medial and inferior to the puncture site. The area was anesthetized with 1% lidocaine. The track was anesthetized with 1% lidocaine. Dermatotomy was made. The ASPIRA catheter was connected to the metal tunneler and used to tunnel from the dermatotomy to the pleural puncture site. Over the Amplatz wire, the pleural puncture site was dilated with ultimate placement of a peel-away sheath and removal of the wire and introducer. The catheter was advanced through the pleural peel-away sheath into the pleura. The sheath was broken and pulled away. The catheter was clamped and the plastic stiffener was removed. The catheter was cut and attached to the appropriate hub. The puncture site was then closed with 3-0 Vicryl and 4-0 Vicryl with overlying Dermabond and Steri-Strips. Sterile dressing was applied. 800 mL of serous fluid was drained through the catheter. The patient had some residual fluid remaining. The catheter was secured with 2-0 Ethilon. Sterile dressing consisting of drain gauze and overlying gauze with Tegaderm were applied to the dermatotomy site. The patient tolerated the procedure well. No immediate postprocedural complications. FINDINGS: Please see procedure note above. Ultrasound guided access of the left pleural cavity and placement of a left sided tunneled cuffed pleural catheter was performed with fluoroscopic and sonographic guidance. IMPRESSION: 1. Successful placement of a left sided tunneled cuffed pleural catheter with sonography and fluoroscopy. 2. Removal of 800 mL of serous fluid from the left pleural cavity.
--- NOTE | 2019-03-15 20:29 | XRay Report ---
CHEST 1 VIEW INDICATION: s/p left chest tube placement COMPARISON: Earlier exam same day FINDINGS: Support devices: At least one chest tube is now projected on the left, with its tip in the apex. A se cond tube is looped in the anterior chest. Heart: Stable. Lungs/Pleura: Left lung remains totally opacified. IMPRESSION: 1. No change in the appearance of the chest following left chest tube placement. Opacity on the left is apparently due to consolidation/atelectasis. Signer Name: Claude Gil MD Signed: 03/15/2019 8:25 PM Workstation Name: [id number]
[2019-03-16 06:42] LABS: Calcium 8.4 mg/dL (8.4-10.2)
[2019-03-16] MEDS: IPRATROPIUM/ALBUTEROL SULFATE 3 ML AMPUL.NEB IH SCH ×2 (08:05→14:20)
--- NOTE | 2019-03-16 08:07 | Hem/Onc Progress Note ---
Assessment and Plan 1. Squamous cell cancer of lung. 2. Left upper lobe mass. 3. The patient is short of breath. The plan was to see her in outpatient setting to see if any oral agent can be used. 4. History of pleural effusion, history of coronary artery disease, history of cardiomyopathy, history of hypertension. 5. Anemia. 6. Thrombocytosis. 7. Low folate. 8. History of hemoptysis. 9. The plan was to do a PET/CT as an outpatient. CT abdo pelvis - no mets CT head a few weeks ago - no mets pt is on o2 - guarded prognosis - as limited options - d/w daughter - for oral or iv chemo - pt needs to come to office XRT eval - d/w dr Torres -I had spoken to him pl effusion malignant - pleurex cath was discussed with IR on 03/15 pt says had a better night of sleep - Patient Problems (1) Lung cancer Current Visit: Yes Status: Suspected Subjective Date of service: 03/16/19 Principal diagnosis: lung ca Interval history: pleurex cath Objective - Exam Narrative Exam: Pain - none General appearance - alert Performance status complete dependence Eyes - no icterus ENT - no bleeding LNs cervical not palpable Neck - no LN Respiratory Normal - on o2 Breath sounds - CTA anteriorly CVS S1 S2 + Extremities no edema General GI Soft Rectal deferred female - deferred Skin warm Musculoskeletal - moving limbs Neurologically alert awake - Constitutional Vitals: Last Vital Signs Temp 98.0 F 03/16/19 04:32 Pulse 88 03/16/19 04:32 Resp 20 03/16/19 04:32 BP 163/67 03/16/19 04:32 Pulse Ox 100 03/16/19 04:32 - Labs Lab Results: Laboratory Results - last 24 hr 03/15/19 03/15/19 03/15/19 07:48 12:58 17:20 Sodium Potassium Chloride Carbon Dioxide Anion Gap BUN Creatinine Estimated GFR BUN/Creatinine Ratio Glucose POC Glucose 140 H 160 H 185 H Calcium 03/15/19 03/16/19 21:01 05:16 Sodium 133 L Potassium 4.9 Chloride 98.0 Carbon Dioxide 20 L Anion Gap 20 BUN 44 H Creatinine 1.4 H Estimated GFR 44 BUN/Creatinine Ratio 31 Glucose 129 H POC Glucose 188 H Calcium 8.4 Medications & Allergies - Medications Allergies/Adverse Reactions: Allergies ibuprofen Allergy (Verified 02/18/19 23:29) Unknown Penicillins Allergy (Verified 02/18/19 23:29) Unknown Home Medications: Home Medications Medication Instructions Recorded Confirmed Last Taken Type Allopurinol 100 mg PO DAILY 12/26/18 03/05/19 03/04/19 History Cilostazol 50 mg PO BID 12/26/18 03/05/19 03/04/19 History Ferrous Sulfate 325 mg PO DAILY 12/26/18 03/05/19 03/04/19 History Ipratropium (Nf) [Atrovent HFA 2 puff IH Q6HR PRN #1 inha 01/11/19 03/05/19 Unknown Rx 17MCG/PUFF] AtorvaSTATin [Lipitor] 40 mg PO QHS 02/09/19 03/05/19 03/04/19 History Pantoprazole [Protonix TAB] 40 mg PO QDAY #30 tablet 02/16/19 03/05/19 Unknown Rx hydrALAZINE [Apresoline TAB] 25 mg PO Q8HR #90 tablet 02/16/19 03/05/19 03/04/19 Rx Furosemide [Lasix TAB] 20 mg PO QDAY tablet 03/01/19 03/05/19 03/04/19 Rx ISOSORBIDE MONOnitrate [Imdur ER] 120 mg PO QDAY tablet 03/01/19 03/05/19 03/04/19 Rx Metoprolol [Lopressor TAB] 50 mg PO BID tablet 03/01/19 03/05/19 Unknown Rx Aspirin EC 325 mg PO QDAY #30 tablet 03/03/19 03/05/19 03/04/19 Rx Folic Acid [Folvite] 1 mg PO QDAY #30 tablet 03/03/19 03/05/19 03/04/19 Rx Insulin NPH/Regular [NovoLIN 70/30] 8 unit SUB-Q ACHS 03/05/19 03/05/19 Unknown History Active Medications: Generic Name Dose Route Start Last Admin Trade Name Freq PRN Reason Stop Dose Admin Acetaminophen 650 mg 03/05/19 03:59 03/12/19 15:17 Tylenol PO 650 mg Q4H PRN Administration Pain MILD(1-3)/Fever >100.5/BRENNER Albuterol 2.5 mg 03/05/19 04:20 03/08/19 01:15 Proventil IH 2.5 mg Q3HRT PRN Administration Shortness Of Breath Albuterol/Ipratropium 1 ampul 03/05/19 14:00 03/16/19 08:05 Duoneb *Not For Prn Use* IH 1 ampul TIDRT MAYLIN Administration Allopurinol 100 mg 03/05/19 10:00 03/15/19 10:49 Zyloprim PO 100 mg DAILY MAYLIN Administration Aspirin 325 mg 03/05/19 10:00 03/15/19 10:50 Ecotrin PO 325 mg QDAY MAYLIN Administration Atorvastatin Calcium 40 mg 03/05/19 22:00 03/15/19 21:47 Lipitor PO 40 mg QHS MAYLIN Administration Cilostazol 50 mg 03/05/19 10:00 03/15/19 21:47 Pletal PO 50 mg BID MAYLIN Administration Diphenhydramine HCl 25 mg 03/12/19 11:53 Benadryl IV Q6H PRN Itching Ferrous Sulfate 325 mg 03/05/19 10:00 03/15/19 10:50 Feosol PO 325 mg DAILY [facility] Administration Folic Acid 1 mg 03/05/19 10:00 03/15/19 10:49 Folvite PO 1 mg QDAY [facility] Administration Heparin Sodium (Porcine) 5,000 unit 03/05/19 10:00 03/15/19 21:48 Heparin SUB-Q 5,000 unit Q12HR MAYLIN Administration Hydralazine HCl 10 mg 03/05/19 12:10 03/15/19 08:40 Apresoline IV 10 mg Q4HR PRN Administration SBP>170 or DBP>110 Hydromorphone HCl 0.5 mg 03/05/19 03:59 03/14/19 08:35 Dilaudid IV 0.5 mg Q3H PRN Administration Pain , Severe (7-10) Hydroxyzine HCl 10 mg 03/12/19 16:02 Atarax PO Q6H PRN Itching Sodium Chloride 500 mls @ 50 mls/hr 03/15/19 14:00 Nacl 0.9% 500 Ml IV DIRECT [facility] Insulin Human Isoph/Insulin Regular 10 unit 03/06/19 09:30 03/15/19 18:48 Humulin 70/30 SUB-Q Not Given BIDDIAB [facility] Insulin Human Lispro 0 unit 03/05/19 07:30 03/15/19 21:48 Humalog SUB-Q 2 unit ACHS MAYLIN Administration Protocol Isosorbide Mononitrate 120 mg 03/05/19 10:00 03/15/19 10:49 Imdur PO 120 mg QDAY MAYLIN Administration Metoclopramide HCl 10 mg 03/05/19 03:59 Reglan IV Q6H PRN Nausea And Vomiting Metoprolol Tartrate 100 mg 03/15/19 16:00 03/15/19 17:30 Metoprolol PO 100 mg BID@0800,1700 MAYLIN Administration Nitroglycerin 0.4 mg 03/07/19 22:30 03/10/19 20:50 Nitrostat SL 0.4 mg .Q5MIN PRN Administration Chest Pain Ondansetron HCl 4 mg 03/05/19 03:59 Zofran IV Q3H PRN Nausea And Vomiting Oxycodone/Acetaminophen 1 tab 03/05/19 03:59 03/14/19 05:14 Percocet 5/325 PO 1 tab Q6H PRN Administration Pain, Moderate (4-6) Pantoprazole Sodium 40 mg 03/05/19 10:00 03/15/19 10:49 Protonix PO 40 mg QDAY MAYLIN Administration Sodium Chloride 10 ml 03/05/19 10:00 03/15/19 21:48 Sodium Chloride Flush Syringe 10 Ml IV 10 ml BID MAYLIN Administration Sodium Chloride 10 ml 03/05/19 03:59 Sodium Chloride Flush Syringe 10 Ml IV PRN PRN LINE FLUSH
[2019-03-16] MEDS: INSULIN LISPRO 100 UNIT/ML SUB-Q SCH ×3 (08:25→17:43)
[2019-03-16 09:45] VITALS: BP 168/67
[2019-03-16] MEDS: CILOSTAZOL 100 MG TAB PO SCH (09:46)
[2019-03-16] MEDS: ASPIRIN EC 325 MG TAB PO SCH (09:46)
[2019-03-16] MEDS: FERROUS SULFATE 325 MG TAB PO SCH (09:46)
[2019-03-16] MEDS: allopurinoL 100 MG TAB PO SCH (09:47)
[2019-03-16] MEDS: FOLIC ACID 1 MG TAB PO SCH (09:48)
[2019-03-16] MEDS: HEPARIN 5,000 UNIT/1 ML VIAL SUB-Q SCH (09:48)
[2019-03-16] MEDS: METOPROLOL TARTRATE 50 MG TAB PO SCH (09:50)
[2019-03-16] MEDS: PANTOPRAZOLE 40 MG TAB PO SCH (09:51)
[2019-03-16] MEDS: INSULIN NPH/REGULAR 70/30 INJ SUB-Q SCH (09:57)
--- NOTE | 2019-03-16 11:14 | Progress Note ---
Assessment and Plan Patient was noted to develop paroxysmal AFib over the weekend. Currently in SR. Cont present cardiac management. Pt with elevated CHADS score and thus she would benefit from superintendent terminal systemic AC. However, she is s/p tunneled pleural catheter placement yesterday and vascular team (Dr. Kaur) recommends holding systemic AC until tomorrow. Will plan to initiate NOAC tomorrow pending no contraindications. f/u CBC in AM. The patient has been seen in conjunction with Dr. Lynn who agrees with the assessment and plan of care. - Patient Problems (1) Paroxysmal atrial fibrillation with RVR Current Visit: Yes Status: Acute (2) Pleural effusion Current Visit: Yes Status: Acute (3) Lung cancer Current Visit: Yes Status: Suspected (4) CAD (coronary artery disease) Current Visit: Yes Status: Chronic Qualifiers: Coronary Disease-Associated Artery/Lesion type: [place] artery (5) Stented coronary artery Current Visit: Yes Status: Chronic (6) Cardiomyopathy Current Visit: Yes Status: Chronic (7) Abnormal stress test Current Visit: Yes Status: Chronic (8) PAD (peripheral artery disease) Current Visit: Yes Status: Chronic (9) NSTEMI (non-ST elevated myocardial infarction) Current Visit: Yes Status: Acute Plan to address problem: type II (10) Diabetes Current Visit: Yes Status: Chronic (11) Former tobacco use Current Visit: Yes Status: Chronic (12) Anemia Current Visit: Yes Status: Chronic (13) NSVT (nonsustained ventricular tachycardia) Current Visit: Yes Status: Acute Subjective Date of service: 03/16/19 Principal diagnosis: lung ca Interval history: Pt resting in bed, no current complaints. in SR on tele with no AFib noted overnight. daughter at bedside. Objective Last Vital Signs Temp 98.9 F 03/16/19 07:41 Pulse 94 H 03/16/19 09:50 Resp 20 03/16/19 08:08 BP 168/67 03/16/19 09:50 Pulse Ox 97 03/16/19 08:10 - Physical Examination General: No Apparent Distress HEENT: Positive: PERRL Neck: Positive: trachea midline Cardiac: Positive: Reg Rate and Rhythm, S1/S2 Lungs: Positive: Decreased Breath Sounds Neuro: Positive: Grossly Intact Abdomen: Positive: Unremarkable /Rectal: Other (deferred) Skin: Positive: Clear Musculoskeletal: Decreased Range of Motion, Normal Range of Motion Extremities: Present: normal - Labs and Meds Comprehensive Metabolic Panel 03/16/19 Range/Units 05:16 Sodium 133 L (137-145) mmol/L Potassium 4.9 (3.6-5.0) mmol/L Chloride 98.0 (98-107) mmol/L Carbon Dioxide 20 L (22-30) mmol/L BUN 44 H (7-17) mg/dL Creatinine 1.4 H (0.7-1.2) mg/dL Glucose 129 H (65-100) mg/dL Calcium 8.4 (8.4-10.2) mg/dL - Imaging and Cardiology EKG: report reviewed, image reviewed Echo: report reviewed (02/23: EF of 30 to 35 percent, impaired relaxation, mild MR, mild TR and moderately reduced RV systolic function) Repolarization changes or abnormalities: nonspecific abnormality, ST segment, and/or T wave
--- NOTE | 2019-03-16 12:29 | Progress Note ---
Assessment and Plan 73 y/o female with squamous cell carcinoma of the lung, now with recurrent left sided effusion, larger this time. 1. Follow up onc recs 2. Pulm cerda, now that pleurx is in place, not much else to be done from that standpoint 3. I know there are rehab issues with pleurx, even if family agrees to be responsible for drain. May just have to have home health 4. Overall prognosis is poor given stage IV disease Subjective Date of service: 03/16/19 Principal diagnosis: lung ca Interval history: Pleurx placed yesterday after Onc and IR had a discussion. Tolerated well. Objective Vital Signs - 12hr 03/16/19 03/16/19 03/16/19 04:32 07:41 08:08 Temperature 98.0 F 98.9 F Pulse Rate 88 94 H Pulse Rate [ 81 Anterior Bilateral Throughout] Pulse Rate [ 84 Posterior Bilateral Throughout] Respiratory 20 20 Rate Respiratory 18 Rate [Anterior Bilateral Throughout] Respiratory 20 Rate [Posterior Bilateral Throughout] Blood Pressure 163/67 168/67 O2 Sat by Pulse 100 97 Oximetry 03/16/19 03/16/19 03/16/19 08:10 09:46 09:50 Temperature Pulse Rate 94 H 94 H Pulse Rate [ Anterior Bilateral Throughout] Pulse Rate [ Posterior Bilateral Throughout] Respiratory Rate Respiratory Rate [Anterior Bilateral Throughout] Respiratory Rate [Posterior Bilateral Throughout] Blood Pressure 168/67 168/67 O2 Sat by Pulse 97 Oximetry 03/16/19 10:00 Temperature Pulse Rate 92 H Pulse Rate [ Anterior Bilateral Throughout] Pulse Rate [ Posterior Bilateral Throughout] Respiratory Rate Respiratory Rate [Anterior Bilateral Throughout] Respiratory Rate [Posterior Bilateral Throughout] Blood Pressure O2 Sat by Pulse Oximetry Constitutional: no acute distress, alert Eyes: non-icteric ENT: oropharynx moist Neck: supple Ascultation: Bilateral: clear, diminished breath sounds Cardiovascular: regular rate and rhythm Gastrointestinal: normoactive bowel sounds, soft, non-tender, non-distended Integumentary: normal Extremities: no cyanosis Neurologic: normal mental status, non-focal exam Psychiatric: mood appropriate, affect normal CBC and BMP: 03/13/19 04:44 03/16/19 05:16 ABG, PT/INR, D-dimer: ABG POC ABG pH 7.375 (7.35-7.45) 03/05/19 03:29 POC ABG pCO2 42.4 (35-45) 03/05/19 03:29 POC ABG pO2 109 (80-105) H 03/05/19 03:29 POC ABG HCO3 24.7 (22-26 mml/L) 03/05/19 03:29 POC ABG Total CO2 26 (23-27mmol/L) 03/05/19 03:29 POC ABG O2 Sat 98 03/05/19 03:29 PT/INR, D-dimer PT 12.8 Sec. (12.2-14.9) 03/08/19 09:33 INR 0.97 (0.87-1.13) 03/08/19 09:33 Abnormal lab findings: Abnormal Labs 03/04/19 03/04/19 03/04/19 23:02 23:02 23:02 WBC 26.4 H RBC 3.09 L Hgb 7.7 L Hct 24.9 L MCH 25 L RDW 20.7 H Plt Count 491 H Lymph % (Auto) [place] % (Auto) Lymph # [place] # Seg Neutrophils % Seg Neuts % (Manual) 96.0 H Lymphocytes % (Manual) 1.0 L Seg Neutrophils # Seg Neutrophils # Man 25.3 H Lymphocytes # (Manual) 0.3 L Eosinophils # (Manual) 0.5 H POC ABG pO2 Sodium 135 L Chloride Carbon Dioxide BUN 37 H Creatinine Glucose 338 H POC Glucose Hemoglobin A1c Calcium 8.2 L Troponin T 0.192 H* NT-Pro-B Natriuret Pep 26038 H Albumin 2.9 L LDL Cholesterol Direct 43 L HDL Cholesterol 98 H Vancomycin Trough Crossmatch 03/05/19 03/05/19 03/05/19 03:29 05:47 07:10 WBC RBC Hgb Hct MCH RDW Plt Count Lymph % (Auto) [place] % (Auto) Lymph # [place] # Seg Neutrophils % Seg Neuts % (Manual) Lymphocytes % (Manual) Seg Neutrophils # Seg Neutrophils # Man Lymphocytes # (Manual) Eosinophils # (Manual) POC ABG pO2 109 H Sodium Chloride Carbon Dioxide BUN Creatinine Glucose POC Glucose Hemoglobin A1c 6.6 H Calcium Troponin T NT-Pro-B Natriuret Pep Albumin LDL Cholesterol Direct HDL Cholesterol Vancomycin Trough Crossmatch See Detail 03/05/19 03/05/19 03/05/19 08:44 12:35 16:29 WBC RBC Hgb Hct MCH RDW Plt Count Lymph % (Auto) [place] % (Auto) Lymph # [place] # Seg Neutrophils % Seg Neuts % (Manual) Lymphocytes % (Manual) Seg Neutrophils # Seg Neutrophils # Man Lymphocytes # (Manual) Eosinophils # (Manual) POC ABG pO2 Sodium Chloride Carbon Dioxide BUN Creatinine Glucose POC Glucose 295 H 292 H 243 H Hemoglobin A1c Calcium Troponin T NT-Pro-B Natriuret Pep Albumin LDL Cholesterol Direct HDL Cholesterol Vancomycin Trough Crossmatch 03/05/19 03/06/19 03/06/19 21:52 05:57 05:57 WBC 15.6 H RBC 3.45 L Hgb 9.0 L Hct 28.3 L MCH 26 L RDW 20.6 H Plt Count Lymph % (Auto) [place] % (Auto) Lymph # [place] # Seg Neutrophils % Seg Neuts % (Manual) 97.0 H Lymphocytes % (Manual) 3.0 L Seg Neutrophils # Seg Neutrophils # Man 15.1 H Lymphocytes # (Manual) 0.5 L Eosinophils # (Manual) POC ABG pO2 Sodium 134 L Chloride Carbon Dioxide 21 L BUN 38 H Creatinine Glucose 342 H POC Glucose 266 H Hemoglobin A1c Calcium 8.3 L Troponin T NT-Pro-B Natriuret Pep Albumin 2.9 L LDL Cholesterol Direct HDL Cholesterol Vancomycin Trough Crossmatch 03/06/19 03/06/19 03/06/19 08:37 10:28 14:59 WBC RBC Hgb Hct MCH RDW Plt Count Lymph % (Auto) [place] % (Auto) Lymph # [place] # Seg Neutrophils % Seg Neuts % (Manual) Lymphocytes % (Manual) Seg Neutrophils # Seg Neutrophils # Man Lymphocytes # (Manual) Eosinophils # (Manual) POC ABG pO2 Sodium Chloride Carbon Dioxide BUN Creatinine Glucose POC Glucose 386 H 403 H 212 H Hemoglobin A1c Calcium Troponin T NT-Pro-B Natriuret Pep Albumin LDL Cholesterol Direct HDL Cholesterol Vancomycin Trough Crossmatch 03/06/19 03/07/19 03/07/19 21:00 05:12 08:07 WBC 15.3 H RBC 3.12 L Hgb 8.2 L Hct 25.6 L MCH 26 L RDW 20.7 H Plt Count Lymph % (Auto) [place] % (Auto) Lymph # [place] # Seg Neutrophils % Seg Neuts % (Manual) Lymphocytes % (Manual) Seg Neutrophils # Seg Neutrophils # Man Lymphocytes # (Manual) Eosinophils # (Manual) POC ABG pO2 Sodium Chloride Carbon Dioxide BUN Creatinine Glucose POC Glucose 195 H 293 H Hemoglobin A1c Calcium Troponin T NT-Pro-B Natriuret Pep Albumin LDL Cholesterol Direct HDL Cholesterol Vancomycin Trough Crossmatch 03/07/19 03/07/19 03/07/19 12:02 17:02 21:12 WBC RBC Hgb Hct MCH RDW Plt Count Lymph % (Auto) [place] % (Auto) Lymph # [place] # Seg Neutrophils % Seg Neuts % (Manual) Lymphocytes % (Manual) Seg Neutrophils # Seg Neutrophils # Man Lymphocytes # (Manual) Eosinophils # (Manual) POC ABG pO2 Sodium Chloride Carbon Dioxide BUN Creatinine Glucose POC Glucose 330 H 282 H 317 H Hemoglobin A1c Calcium Troponin T NT-Pro-B Natriuret Pep Albumin LDL Cholesterol Direct HDL Cholesterol Vancomycin Trough Crossmatch 03/08/19 03/08/19 03/08/19 08:31 11:00 12:02 WBC RBC Hgb Hct MCH RDW Plt Count Lymph % (Auto) [place] % (Auto) Lymph # [place] # Seg Neutrophils % Seg Neuts % (Manual) Lymphocytes % (Manual) Seg Neutrophils # Seg Neutrophils # Man Lymphocytes # (Manual) Eosinophils # (Manual) POC ABG pO2 Sodium Chloride Carbon Dioxide BUN Creatinine Glucose POC Glucose 236 H 301 H Hemoglobin A1c Calcium Troponin T NT-Pro-B Natriuret Pep Albumin LDL Cholesterol Direct HDL Cholesterol Vancomycin Trough 21.9 H Crossmatch 03/08/19 03/08/19 03/08/19 16:07 17:07 22:45 WBC RBC Hgb Hct MCH RDW Plt Count Lymph % (Auto) [place] % (Auto) Lymph # [place] # Seg Neutrophils % Seg Neuts % (Manual) Lymphocytes % (Manual) Seg Neutrophils # Seg Neutrophils # Man Lymphocytes # (Manual) Eosinophils # (Manual) POC ABG pO2 Sodium 131 L Chloride Carbon Dioxide 20 L BUN 49 H Creatinine 1.3 H Glucose 289 H POC Glucose 296 H 192 H Hemoglobin A1c Calcium Troponin T NT-Pro-B Natriuret Pep Albumin LDL Cholesterol Direct HDL Cholesterol Vancomycin Trough Crossmatch 03/09/19 03/09/19 03/09/19 08:31 11:01 12:11 WBC RBC Hgb Hct MCH RDW Plt Count Lymph % (Auto) [place] % (Auto) Lymph # [place] # Seg Neutrophils % Seg Neuts % (Manual) Lymphocytes % (Manual) Seg Neutrophils # Seg Neutrophils # Man Lymphocytes # (Manual) Eosinophils # (Manual) POC ABG pO2 Sodium Chloride Carbon Dioxide BUN Creatinine Glucose POC Glucose 60 L 183 H 219 H Hemoglobin A1c Calcium Troponin T NT-Pro-B Natriuret Pep Albumin LDL Cholesterol Direct HDL Cholesterol Vancomycin Trough Crossmatch 03/09/19 03/09/19 03/10/19 16:15 21:08 04:53 WBC RBC Hgb Hct MCH RDW Plt Count Lymph % (Auto) [place] % (Auto) Lymph # [place] # Seg Neutrophils % Seg Neuts % (Manual) Lymphocytes % (Manual) Seg Neutrophils # Seg Neutrophils # Man Lymphocytes # (Manual) Eosinophils # (Manual) POC ABG pO2 Sodium 133 L Chloride Carbon Dioxide 19 L BUN 57 H Creatinine 1.4 H Glucose POC Glucose 202 H 115 H Hemoglobin A1c Calcium 8.1 L Troponin T NT-Pro-B Natriuret Pep Albumin LDL Cholesterol Direct HDL Cholesterol Vancomycin Trough Crossmatch 03/10/19 03/10/19 03/10/19 10:19 11:32 18:24 WBC RBC Hgb Hct MCH RDW Plt Count Lymph % (Auto) [place] % (Auto) Lymph # [place] # Seg Neutrophils % Seg Neuts % (Manual) Lymphocytes % (Manual) Seg Neutrophils # Seg Neutrophils # Man Lymphocytes # (Manual) Eosinophils # (Manual) POC ABG pO2 Sodium Chloride Carbon Dioxide BUN Creatinine Glucose POC Glucose 151 H 146 H 106 H Hemoglobin A1c Calcium Troponin T NT-Pro-B Natriuret Pep Albumin LDL Cholesterol Direct HDL Cholesterol Vancomycin Trough Crossmatch 03/11/19 03/11/19 03/11/19 04:34 11:14 16:29 WBC RBC Hgb Hct MCH RDW Plt Count Lymph % (Auto) [place] % (Auto) Lymph # [place] # Seg Neutrophils % Seg Neuts % (Manual) Lymphocytes % (Manual) Seg Neutrophils # Seg Neutrophils # Man Lymphocytes # (Manual) Eosinophils # (Manual) POC ABG pO2 Sodium 131 L Chloride Carbon Dioxide 20 L BUN 57 H Creatinine 1.7 H Glucose 189 H POC Glucose 158 H 119 H Hemoglobin A1c Calcium 7.7 L Troponin T NT-Pro-B Natriuret Pep Albumin LDL Cholesterol Direct HDL Cholesterol Vancomycin Trough Crossmatch 03/11/19 03/12/19 03/12/19 20:48 05:41 05:41 WBC 16.1 H RBC 3.24 L Hgb 8.6 L Hct 26.6 L MCH 27 L RDW 20.8 H Plt Count Lymph % (Auto) 5.4 L [place] % (Auto) 7.4 H Lymph # 0.9 L [place] # 1.2 H Seg Neutrophils % 83.9 H Seg Neuts % (Manual) Lymphocytes % (Manual) Seg Neutrophils # 13.5 H Seg Neutrophils # Man Lymphocytes # (Manual) Eosinophils # (Manual) POC ABG pO2 Sodium 131 L Chloride 94.2 L Carbon Dioxide 17 L BUN 58 H Creatinine 1.7 H Glucose 146 H POC Glucose 258 H Hemoglobin A1c Calcium 7.9 L Troponin T NT-Pro-B Natriuret Pep Albumin LDL Cholesterol Direct HDL Cholesterol Vancomycin Trough Crossmatch 03/12/19 03/12/19 03/12/19 09:01 12:51 15:32 WBC RBC Hgb Hct MCH RDW Plt Count Lymph % (Auto) [place] % (Auto) Lymph # [place] # Seg Neutrophils % Seg Neuts % (Manual) Lymphocytes % (Manual) Seg Neutrophils # Seg Neutrophils # Man Lymphocytes # (Manual) Eosinophils # (Manual) POC ABG pO2 Sodium Chloride Carbon Dioxide BUN Creatinine Glucose POC Glucose 135 H 191 H 171 H Hemoglobin A1c Calcium Troponin T NT-Pro-B Natriuret Pep Albumin LDL Cholesterol Direct HDL Cholesterol Vancomycin Trough Crossmatch 03/12/19 03/13/19 03/13/19 20:27 04:44 04:44 WBC 13.0 H RBC 3.29 L Hgb 8.8 L Hct 26.9 L MCH 27 L RDW 20.8 H Plt Count Lymph % (Auto) 6.6 L [place] % (Auto) 8.2 H Lymph # 0.9 L [place] # 1.1 H Seg Neutrophils % 81.5 H Seg Neuts % (Manual) Lymphocytes % (Manual) Seg Neutrophils # 10.6 H Seg Neutrophils # Man Lymphocytes # (Manual) Eosinophils # (Manual) POC ABG pO2 Sodium 131 L Chloride 97.9 L Carbon Dioxide BUN 56 H Creatinine 1.8 H Glucose 148 H POC Glucose 203 H Hemoglobin A1c Calcium 8.2 L Troponin T NT-Pro-B Natriuret Pep Albumin LDL Cholesterol Direct HDL Cholesterol Vancomycin Trough Crossmatch 03/13/19 03/13/19 03/13/19 09:10 12:24 23:27 WBC RBC Hgb Hct MCH RDW Plt Count Lymph % (Auto) [place] % (Auto) Lymph # [place] # Seg Neutrophils % Seg Neuts % (Manual) Lymphocytes % (Manual) Seg Neutrophils # Seg Neutrophils # Man Lymphocytes # (Manual) Eosinophils # (Manual) POC ABG pO2 Sodium Chloride Carbon Dioxide BUN Creatinine Glucose POC Glucose 186 H 150 H 128 H Hemoglobin A1c Calcium Troponin T NT-Pro-B Natriuret Pep Albumin LDL Cholesterol Direct HDL Cholesterol Vancomycin Trough Crossmatch 03/14/19 03/14/19 03/14/19 12:05 12:08 16:09 WBC RBC Hgb Hct MCH RDW Plt Count Lymph % (Auto) [place] % (Auto) Lymph # [place] # Seg Neutrophils % Seg Neuts % (Manual) Lymphocytes % (Manual) Seg Neutrophils # Seg Neutrophils # Man Lymphocytes # (Manual) Eosinophils # (Manual) POC ABG pO2 Sodium 132 L Chloride 96.0 L Carbon Dioxide 18 L BUN 50 H Creatinine 1.6 H Glucose 192 H POC Glucose 189 H 230 H Hemoglobin A1c Calcium 8.2 L Troponin T NT-Pro-B Natriuret Pep Albumin LDL Cholesterol Direct HDL Cholesterol Vancomycin Trough Crossmatch 03/14/19 03/15/19 03/15/19 21:18 06:07 07:48 WBC RBC Hgb Hct MCH RDW Plt Count Lymph % (Auto) [place] % (Auto) Lymph # [place] # Seg Neutrophils % Seg Neuts % (Manual) Lymphocytes % (Manual) Seg Neutrophils # Seg Neutrophils # Man Lymphocytes # (Manual) Eosinophils # (Manual) POC ABG pO2 Sodium 130 L Chloride 95.5 L Carbon Dioxide 19 L BUN 50 H Creatinine 1.5 H Glucose 150 H POC Glucose 165 H 140 H Hemoglobin A1c Calcium Troponin T NT-Pro-B Natriuret Pep Albumin LDL Cholesterol Direct HDL Cholesterol Vancomycin Trough Crossmatch 03/15/19 03/15/19 03/15/19 12:58 17:20 21:01 WBC RBC Hgb Hct MCH RDW Plt Count Lymph % (Auto) [place] % (Auto) Lymph # [place] # Seg Neutrophils % Seg Neuts % (Manual) Lymphocytes % (Manual) Seg Neutrophils # Seg Neutrophils # Man Lymphocytes # (Manual) Eosinophils # (Manual) POC ABG pO2 Sodium Chloride Carbon Dioxide BUN Creatinine Glucose POC Glucose 160 H 185 H 188 H Hemoglobin A1c Calcium Troponin T NT-Pro-B Natriuret Pep Albumin LDL Cholesterol Direct HDL Cholesterol Vancomycin Trough Crossmatch 03/16/19 03/16/19 03/16/19 05:16 08:32 10:59 WBC RBC Hgb Hct MCH RDW Plt Count Lymph % (Auto) [place] % (Auto) Lymph # [place] # Seg Neutrophils % Seg Neuts % (Manual) Lymphocytes % (Manual) Seg Neutrophils # Seg Neutrophils # Man Lymphocytes # (Manual) Eosinophils # (Manual) POC ABG pO2 Sodium 133 L Chloride Carbon Dioxide 20 L BUN 44 H Creatinine 1.4 H Glucose 129 H POC Glucose 129 H 254 H Hemoglobin A1c Calcium Troponin T NT-Pro-B Natriuret Pep Albumin LDL Cholesterol Direct HDL Cholesterol Vancomycin Trough Crossmatch
--- NOTE | 2019-03-16 14:11 | Progress Note ---
Assessment and Plan 1. Acute kidney injury: Vasomotor NEELIMA superimposed on CKD stage 3. CT abdomen was negative for hydronephrosis. Creatinine level is improving. Monitor renal function. Avoid nephrotoxic agents. Meds dosage based on GFR. 2. FEN: Metabolic acidosis, monitor. Hyponatremia, monitor. Monitor lytes. 3. 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 4. Decompensated CHF. 5. CAD: Followed by Cards. 6. DM-2. 7. Hypertension: Monitor BP. 8. Anemia: POA. Examination: General appearance: well-developed, well-nourished, appears stated age, no distress HEENT: ATNC, SKYE, hearing intact, vision intact Neck: trachea midline Respiratory: Rales (R lung base), Decreased Breath Sounds (L side) Chest: L sided catheter Heart: regular, S1S2, no murmur Abdomen: Soft, normoactive bowel sounds, not tender Integumentary: no rash Neurologic: no focal deficit, no asterixis, alert and oriented x3 Ext: 1+ LE edema noted Psychiatric: cooperative Subjective Date of service: 03/16/19 Principal diagnosis: lung ca Interval history: Patient was seen and examined at the bedside. Objective - Vital Signs Vital signs: Vital Signs - 12hr 03/16/19 03/16/19 03/16/19 04:32 07:41 08:08 Temperature 98.0 F 98.9 F Pulse Rate 88 94 H Pulse Rate [ 81 Anterior Bilateral Throughout] Pulse Rate [ 84 Posterior Bilateral Throughout] Respiratory 20 20 Rate Respiratory 18 Rate [Anterior Bilateral Throughout] Respiratory 20 Rate [Posterior Bilateral Throughout] Blood Pressure 163/67 168/67 O2 Sat by Pulse 100 97 Oximetry 03/16/19 03/16/19 03/16/19 08:10 09:46 09:50 Temperature Pulse Rate 94 H 94 H Pulse Rate [ Anterior Bilateral Throughout] Pulse Rate [ Posterior Bilateral Throughout] Respiratory Rate Respiratory Rate [Anterior Bilateral Throughout] Respiratory Rate [Posterior Bilateral Throughout] Blood Pressure 168/67 168/67 O2 Sat by Pulse 97 Oximetry 03/16/19 10:00 Temperature Pulse Rate 92 H Pulse Rate [ Anterior Bilateral Throughout] Pulse Rate [ Posterior Bilateral Throughout] Respiratory Rate Respiratory Rate [Anterior Bilateral Throughout] Respiratory Rate [Posterior Bilateral Throughout] Blood Pressure O2 Sat by Pulse Oximetry - Lab 03/13/19 04:44 03/16/19 05:16 Most recent lab results Calcium 8.4 mg/dL (8.4-10.2) 03/16/19 05:16 Magnesium 2.00 mg/dL (1.7-2.3) 03/08/19 17:07 Medications & Allergies - Medications Allergies/Adverse Reactions: Allergies ibuprofen Allergy (Verified 02/18/19 23:29) Unknown Penicillins Allergy (Verified 02/18/19 23:29) Unknown Home Medications: Home Medications Medication Instructions Recorded Confirmed Last Taken Type ALBUTEROL NEB's [Proventil 0.083% 2.5 mg IH Q3HRT PRN #100 nebu 03/16/19 Unknown Rx NEBS] Allopurinol [Zyloprim] 100 mg PO DAILY #30 tablet 03/16/19 Unknown Rx Aspirin EC 325 mg PO QDAY #30 tablet 03/16/19 Unknown Rx AtorvaSTATin [Lipitor] 40 mg PO QHS #30 tablet 03/16/19 Unknown Rx Cilostazol [Pletal] 50 mg PO BID #60 tablet 03/16/19 Unknown Rx Ferrous Sulfate [Feosol 325 MG tab] 325 mg PO DAILY #30 tablet 03/16/19 Unknown Rx Folic Acid [Folvite] 1 mg PO QDAY #30 tablet 03/16/19 Unknown Rx Furosemide [Lasix TAB] 20 mg PO QDAY #30 tablet 03/16/19 Unknown Rx ISOSORBIDE MONOnitrate [Imdur ER] 120 mg PO QDAY #1 tablet 03/16/19 Unknown Rx Insulin NPH/Regular [NovoLIN 70/30] 8 unit SUB-Q ACHS #300 units 03/16/19 Unknown Rx Insulin NPH/Regular [NovoLIN 70/30] 10 unit SUB-Q BIDDIAB units 03/16/19 Unknown Rx Ipratropium (Nf) [Atrovent HFA 2 puff IH Q6HR PRN #1 inha 03/16/19 Unknown Rx 17MCG/PUFF] Metoprolol [Lopressor TAB] 100 mg PO BID@0800,1700 #60 tablet 03/16/19 Unknown Rx Pantoprazole [Protonix TAB] 40 mg PO QDAY #30 tablet 03/16/19 Unknown Rx hydrALAZINE [Apresoline TAB] 25 mg PO Q8HR #90 tablet 03/16/19 Unknown Rx hydrOXYzine HCL [Atarax] 10 mg PO Q6H PRN #30 tablet 03/16/19 Unknown Rx oxyCODONE /ACETAMINOPHEN [Percocet 1 tab PO Q6H PRN #8 tablet 03/16/19 Unknown Rx 5/325 mg] Active Medications: Generic Name Dose Route Start Last Admin Trade Name Freq PRN Reason Stop Dose Admin Acetaminophen 650 mg 03/05/19 03:59 03/12/19 15:17 Tylenol PO 650 mg Q4H PRN Administration Pain MILD(1-3)/Fever >100.5/BRENNER Albuterol 2.5 mg 03/05/19 04:20 03/08/19 01:15 Proventil IH 2.5 mg Q3HRT PRN Administration Shortness Of Breath Albuterol/Ipratropium 1 ampul 03/05/19 14:00 03/16/19 08:05 Duoneb *Not For Prn Use* IH 1 ampul TIDRT MAYLIN Administration Allopurinol 100 mg 03/05/19 10:00 03/16/19 09:47 Zyloprim PO 100 mg DAILY MAYLIN Administration Aspirin 325 mg 03/05/19 10:00 03/16/19 09:46 Ecotrin PO 325 mg QDAY MAYLIN Administration Atorvastatin Calcium 40 mg 03/05/19 22:00 03/15/19 21:47 Lipitor PO 40 mg QHS MAYLIN Administration Cilostazol 50 mg 03/05/19 10:00 03/16/19 09:46 Pletal PO 50 mg BID MAYLIN Administration Diphenhydramine HCl 25 mg 03/12/19 11:53 Benadryl IV Q6H PRN Itching Ferrous Sulfate 325 mg 03/05/19 10:00 03/16/19 09:46 Feosol PO 325 mg DAILY MAYLIN Administration Folic Acid 1 mg 03/05/19 10:00 03/16/19 09:48 Folvite PO 1 mg QDAY MAYLIN Administration Heparin Sodium (Porcine) 5,000 unit 03/05/19 10:00 03/16/19 09:48 Heparin SUB-Q 5,000 unit Q12HR MAYLIN Administration Hydralazine HCl 10 mg 03/05/19 12:10 03/15/19 08:40 Apresoline IV 10 mg Q4HR PRN Administration SBP>170 or DBP>110 Hydromorphone HCl 0.5 mg 03/05/19 03:59 03/14/19 08:35 Dilaudid IV 0.5 mg Q3H PRN Administration Pain , Severe (7-10) Hydroxyzine HCl 10 mg 03/12/19 16:02 Atarax PO Q6H PRN Itching Sodium Chloride 500 mls @ 50 mls/hr 03/15/19 14:00 Nacl 0.9% 500 Ml IV DIRECT MAYLIN Insulin Human Isoph/Insulin Regular 10 unit 03/06/19 09:30 03/16/19 09:57 Humulin 70/30 SUB-Q 10 unit BIDDIAB MAYLIN Administration Insulin Human Lispro 0 unit 03/05/19 07:30 03/16/19 13:11 Humalog SUB-Q 4 unit ACHS MAYLIN Administration Protocol Isosorbide Mononitrate 120 mg 03/05/19 10:00 03/16/19 09:46 Imdur PO 120 mg QDAY MAYLIN Administration Metoclopramide HCl 10 mg 03/05/19 03:59 Reglan IV Q6H PRN Nausea And Vomiting Metoprolol Tartrate 100 mg 03/15/19 16:00 03/16/19 09:50 Metoprolol PO 100 mg BID@0800,1700 MAYLIN Administration Nitroglycerin 0.4 mg 03/07/19 22:30 03/10/19 20:50 Nitrostat SL 0.4 mg .Q5MIN PRN Administration Chest Pain Ondansetron HCl 4 mg 03/05/19 03:59 Zofran IV Q3H PRN Nausea And Vomiting Oxycodone/Acetaminophen 1 tab 03/05/19 03:59 03/14/19 05:14 Percocet 5/325 PO 1 tab Q6H PRN Administration Pain, Moderate (4-6) Pantoprazole Sodium 40 mg 03/05/19 10:00 03/16/19 09:51 Protonix PO 40 mg QDAY MAYLIN Administration Sodium Chloride 10 ml 03/05/19 10:00 03/16/19 09:48 Sodium Chloride Flush Syringe 10 Ml IV 10 ml BID MAYLIN Administration Sodium Chloride 10 ml 03/05/19 03:59 Sodium Chloride Flush Syringe 10 Ml IV PRN PRN LINE FLUSH
--- NOTE | 2019-03-16 14:11 | XRay Report ---
CHEST 1 VIEW INDICATION: reassess effusion. COMPARISON: 03/15/2019 8:00 PM FINDINGS: Support devices: A single left chest tube with the tip in the left apex. Heart: Within normal limits. Lungs/Pleura: Persistent near complete whiteout of the left hemithorax without significant change com pared to the last exam. There also appears to an abrupt cut off of the left mainstem bronchus at the hilum. No pneumothorax. The right lung is normally expanded and clear. Additional findings: None. IMPRESSION: No significant change. Near complete atelectasis/consolidation of the left lung. Signer Name: Murali Mims MD Signed: 03/16/2019 2:06 PM Workstation Name: [id number]
--- NOTE | 2019-03-16 14:24 | Discharge Summary ---
Providers - Providers Date of Admission: 03/05/19 00:42 Date of discharge: 03/16/19 Attending physician: HUNG WARE 03/05/19 06:51 Consult to Physician [CONS] Routine Comment: Consulting Provider: KAPIL RICHARDSON Physician Instructions: Reason For Exam: lung cancer 03/05/19 08:13 Consult to Physician [CONS] Routine Comment: Consulting Provider: NAV MERRITT Physician Instructions: Reason For Exam: shortness of breath 03/05/19 08:14 Consult to Physician [CONS] Routine Comment: Consulting Provider: KEVIN DANIELSON Physician Instructions: Reason For Exam: CHF 03/08/19 10:52 Physical Therapy Evaluation and Treat [CONS] Routine Comment: Reason For Exam: eval & treat 03/08/19 10:53 Occupational Therapy Evaluate and Treat [CONS] Routine Comment: Reason For Exam: eval and treat 03/09/19 08:05 Consult to Physician [CONS] Routine Comment: Consulting Provider: MART MAHAJAN Physician Instructions: Reason For Exam: sq cell lung ca - on o2 03/13/19 12:25 Consult to Physician [CONS] Routine Comment: Consulting Provider: CAROL OLIVEIRA Physician Instructions: Reason For Exam: Pleurx for Malignant effusion 03/14/19 08:37 Consult to Wound/ET Nurse [CONS] Routine Reason For Exam: wound eval: sacral/buttock wounds Primary care physician: [facility] [employer] Hospitalization Condition: Stable Pertinent studies: Chest x-ray showed left pleural effusion with some crepitation, CT of the abdomen and pelvis no evidence of abdominal or pelvic lesions. Procedures: Left thoracocentesis was done with drainage of 800 mL of fluid Hospital course: 72-year-old -[place] female with history of COPD, hypertension, insulin-dependent diabetes, CHF, coronary artery disease comes in for increasing shortness of breath and low oxygen saturations from arrow[place] correction. Oxygen saturation is very in the low 80s. Patient was also wheezing and in respiratory distress. Patient had to be put on BiPAP. No fever or chills. Patient was recently diagnosed with squamous cell carcinoma and cavitary lung mass. Patient is full code. No recent travel. Chest x-ray showed evidence of pleural effusion. Was admitted to telemetry. Found to be anemic from chronic disease. Had one units of blood transfusion Bronchodilator commenced on admission. Pleurx was inserted after thoracocentesis with the -800 mL of fluid from the left lung. Pleurx was left pulmonary to be connected to intermittent drainage. Had a history of congestive failure with ejection fraction of 30-35%. When patient was treated with diuretics and beta blockers and ACEI daily weights 2 g sodium diet. Patient's symptoms improved. Patient daughter taught on how to connected to rest to join H on intermittent basis. Shortness of breath improved. Sepsis was treated with appropriate antibiotics. Patient tolerating oral feeds as of this moment. He is difficult been discharged to follow-up with primary care physician and agitated to 5 days, pulmonology is in 7 days and oncologist in 10 days. Condition result was satisfactory. Disposition: [id number] TO HOME OR SELFCARE Time spent for discharge: 38 minutes - Discharge Diagnoses (1) Squamous cell carcinoma of both lungs Status: Acute (2) Acute respiratory failure with hypoxia Status: Acute (3) COPD with exacerbation Status: Acute (4) HCAP (healthcare-associated pneumonia) Status: Acute (5) Lung mass Status: Acute (6) NSTEMI (non-ST elevated myocardial infarction) Status: Acute (7) NSVT (nonsustained ventricular tachycardia) Status: Acute (8) Paroxysmal atrial fibrillation with RVR Status: Acute Core Measure Documentation - Palliative Care Palliative Care/ Comfort Measures: Not Applicable - Core Measures Any of the following diagnoses?: heart failure - Heart Failure Discharge Requirements FISH/ARB for LVSD if EF <40%: Yes Beta andra at discharge: Yes Exam - Physical Exam Narrative exam: Constitutional: Well-nourished well-developed. In no distress Head: Normocephalic atraumatic Eyes: Pupils are equal round and reactive to light Nose: No enlarged turbinates, no septal deviation. Mouth: Moist mucous membranes. Neck: Supple no thyromegaly. No bruit. No JVD Heart: Regular rate and rhythm, S1-S2 normal. No rubs murmurs or gallop Lungs: Decreased breath sound left lung worse than the right. Pleux. Clear to auscultation bilaterally. no rales or rhonchi Abdomen: Soft, nontender. Bowel sound are present. Extremities: No edema, no cyanosis, no clubbing. Neuro: Alert oriented Oriented x3. No focal sensory or motor deficit. Skin: No rashes or hyperpigmented spots Musculoskeletal system: No joint pain or swelling Hematological: No petechia or subcutanous hemorrhages. Immunological: No multiple septic spots on the skin Lymphatic: No generalized lymphadenopathy Psychiatry: Euthymic. Calm. - Constitutional Vitals: Temp Pulse Resp BP Pulse Ox 98.9 F 92 H 20 168/67 97 03/16/19 07:41 03/16/19 10:00 03/16/19 08:08 03/16/19 09:50 03/16/19 08:10 Plan Activity: fall precautions Weight Bearing Status: Non-Weight Bearing Diet: regular Follow up with: PRIMARY CARE, [Primary Care Provider] - 7 Days Prescriptions: hydrALAZINE [Apresoline TAB] 25 mg PO Q8HR #90 tablet Aspirin EC 325 mg PO QDAY #30 tablet hydrOXYzine HCL [Atarax] 10 mg PO Q6H PRN #30 tablet PRN Reason: Itching Ipratropium (Nf) [Atrovent HFA 17MCG/PUFF] 2 puff IH Q6HR PRN #1 inha PRN Reason: shortness of breath Ferrous Sulfate [Feosol 325 MG tab] 325 mg PO DAILY #30 tablet Folic Acid [Folvite] 1 mg PO QDAY #30 tablet ISOSORBIDE MONOnitrate [Imdur ER] 120 mg PO QDAY #1 tablet Furosemide [Lasix TAB] 20 mg PO QDAY #30 tablet AtorvaSTATin [Lipitor] 40 mg PO QHS #30 tablet Metoprolol [Lopressor TAB] 100 mg PO BID@0800,1700 #60 tablet Insulin NPH/Regular [NovoLIN 70/30] 8 unit SUB-Q ACHS #300 units oxyCODONE /ACETAMINOPHEN [Percocet 5/325 mg] 1 tab PO Q6H PRN #8 tablet PRN Reason: Pain, Moderate (4-6) Cilostazol [Pletal] 50 mg PO BID #60 tablet Pantoprazole [Protonix TAB] 40 mg PO QDAY #30 tablet ALBUTEROL NEB's [Proventil 0.083% NEBS] 2.5 mg IH Q3HRT PRN #100 nebu PRN Reason: Shortness Of Breath Allopurinol [Zyloprim] 100 mg PO DAILY #30 tablet
[2019-03-16] MEDS: oxyCODONE /ACETAMINOPHEN 5-325MG TAB PO PRN (15:21)
--- NOTE | 2019-03-16 15:39 | Progress Note ---
Assessment and Plan 73-year-old female with advanced stage IV left-sided lung cancer with invasion of the left upper lobe resulting in mass and atelectasis of this lobe with subsequent malignant infusion resulting in complete collapse of the left long. Patient had thoracentesis performed but had rapid reaccumulation. Her thoracentesis had malignant cells. Status post tunneled pleural catheter placed yesterday. Patient will need to be drained daily. If patient will be leaving today, then she will need to be drained tomorrow. Please coordinate with home health or hospice services. Subjective Date of service: 03/16/19 Principal diagnosis: lung ca Interval history: No pain along left flank, overall feeling better. Slept better. Respiratory status pattern. In service performed by ASPIRA for family. Objective - Constitutional Vitals: Vital Signs - 12hr 03/16/19 03/16/19 03/16/19 04:32 07:41 08:08 Temperature 98.0 F 98.9 F Pulse Rate 88 94 H Pulse Rate [ 81 Anterior Bilateral Throughout] Pulse Rate [ 84 Posterior Bilateral Throughout] Respiratory 20 20 Rate Respiratory 18 Rate [Anterior Bilateral Throughout] Respiratory 20 Rate [Posterior Bilateral Throughout] Blood Pressure 163/67 168/67 O2 Sat by Pulse 100 97 Oximetry 03/16/19 03/16/19 03/16/19 08:10 09:46 09:50 Temperature Pulse Rate 94 H 94 H Pulse Rate [ Anterior Bilateral Throughout] Pulse Rate [ Posterior Bilateral Throughout] Respiratory Rate Respiratory Rate [Anterior Bilateral Throughout] Respiratory Rate [Posterior Bilateral Throughout] Blood Pressure 168/67 168/67 O2 Sat by Pulse 97 Oximetry 03/16/19 10:00 Temperature Pulse Rate 92 H Pulse Rate [ Anterior Bilateral Throughout] Pulse Rate [ Posterior Bilateral Throughout] Respiratory Rate Respiratory Rate [Anterior Bilateral Throughout] Respiratory Rate [Posterior Bilateral Throughout] Blood Pressure O2 Sat by Pulse Oximetry General appearance: Present: no acute distress - EENT Eyes: EOM intact ENT: hearing intact - Respiratory Respiratory effort: labored, other (patient's breathing significantly improved since yesterday.) - Psychiatric Psychiatric: appropriate mood/affect, cooperative - Labs CBC & Chem 7: 03/13/19 04:44 03/16/19 05:16 Labs: Abnormal lab results 03/15/19 03/15/19 03/16/19 Range/Units 17:20 21:01 05:16 Sodium 133 L (137-145) mmol/L Carbon Dioxide 20 L (22-30) mmol/L BUN 44 H (7-17) mg/dL Creatinine 1.4 H (0.7-1.2) mg/dL Glucose 129 H (65-100) mg/dL POC Glucose 185 H 188 H (70-105) 03/16/19 03/16/19 Range/Units 08:32 10:59 Sodium (137-145) mmol/L Carbon Dioxide (22-30) mmol/L BUN (7-17) mg/dL Creatinine (0.7-1.2) mg/dL Glucose (65-100) mg/dL POC Glucose 129 H 254 H (70-105) Medications & Allergies - Medications Allergies/Adverse Reactions: Allergies ibuprofen Allergy (Verified 02/18/19 23:29) Unknown Penicillins Allergy (Verified 02/18/19 23:29) Unknown Home Medications: Home Medications Medication Instructions Recorded Confirmed Last Taken Type ALBUTEROL NEB's [Proventil 0.083% 2.5 mg IH Q3HRT PRN #100 nebu 03/16/19 Unknown Rx NEBS] Allopurinol [Zyloprim] 100 mg PO DAILY #30 tablet 03/16/19 Unknown Rx Aspirin EC 325 mg PO QDAY #30 tablet 03/16/19 Unknown Rx AtorvaSTATin [Lipitor] 40 mg PO QHS #30 tablet 03/16/19 Unknown Rx Cilostazol [Pletal] 50 mg PO BID #60 tablet 03/16/19 Unknown Rx Ferrous Sulfate [Feosol 325 MG tab] 325 mg PO DAILY #30 tablet 03/16/19 Unknown Rx Folic Acid [Folvite] 1 mg PO QDAY #30 tablet 03/16/19 Unknown Rx Furosemide [Lasix TAB] 20 mg PO QDAY #30 tablet 03/16/19 Unknown Rx ISOSORBIDE MONOnitrate [Imdur ER] 120 mg PO QDAY #1 tablet 03/16/19 Unknown Rx Insulin NPH/Regular [NovoLIN 70/30] 8 unit SUB-Q ACHS #300 units 03/16/19 Unknown Rx Insulin NPH/Regular [NovoLIN 70/30] 10 unit SUB-Q BIDDIAB units 03/16/19 Unknown Rx Ipratropium (Nf) [Atrovent HFA 2 puff IH Q6HR PRN #1 inha 03/16/19 Unknown Rx 17MCG/PUFF] Metoprolol [Lopressor TAB] 100 mg PO BID@0800,1700 #60 tablet 03/16/19 Unknown Rx Pantoprazole [Protonix TAB] 40 mg PO QDAY #30 tablet 03/16/19 Unknown Rx hydrALAZINE [Apresoline TAB] 25 mg PO Q8HR #90 tablet 03/16/19 Unknown Rx hydrOXYzine HCL [Atarax] 10 mg PO Q6H PRN #30 tablet 03/16/19 Unknown Rx oxyCODONE /ACETAMINOPHEN [Percocet 1 tab PO Q6H PRN #8 tablet 03/16/19 Unknown Rx 5/325 mg] Active Medications: Generic Name Dose Route Start Last Admin Trade Name Freq PRN Reason Stop Dose Admin Acetaminophen 650 mg 03/05/19 03:59 03/12/19 15:17 Tylenol PO 650 mg Q4H PRN Administration Pain MILD(1-3)/Fever >100.5/BERNNER Albuterol 2.5 mg 03/05/19 04:20 03/08/19 01:15 Proventil IH 2.5 mg Q3HRT PRN Administration Shortness Of Breath Albuterol/Ipratropium 1 ampul 03/05/19 14:00 03/16/19 14:20 Duoneb *Not For Prn Use* IH 1 ampul TIDRT MAYLIN Administration Allopurinol 100 mg 03/05/19 10:00 03/16/19 09:47 Zyloprim PO 100 mg DAILY MAYLIN Administration Aspirin 325 mg 03/05/19 10:00 03/16/19 09:46 Ecotrin PO 325 mg QDAY MAYLIN Administration Atorvastatin Calcium 40 mg 03/05/19 22:00 03/15/19 21:47 Lipitor PO 40 mg QHS MAYLIN Administration Cilostazol 50 mg 03/05/19 10:00 03/16/19 09:46 Pletal PO 50 mg BID MAYLIN Administration Diphenhydramine HCl 25 mg 03/12/19 11:53 Benadryl IV Q6H PRN Itching Ferrous Sulfate 325 mg 03/05/19 10:00 03/16/19 09:46 Feosol PO 325 mg DAILY MAYLIN Administration Folic Acid 1 mg 03/05/19 10:00 03/16/19 09:48 Folvite PO 1 mg QDAY MAYLIN Administration Heparin Sodium (Porcine) 5,000 unit 03/05/19 10:00 03/16/19 09:48 Heparin SUB-Q 5,000 unit Q12HR MAYLIN Administration Hydralazine HCl 10 mg 03/05/19 12:10 03/15/19 08:40 Apresoline IV 10 mg Q4HR PRN Administration SBP>170 or DBP>110 Hydromorphone HCl 0.5 mg 03/05/19 03:59 03/14/19 08:35 Dilaudid IV 0.5 mg Q3H PRN Administration Pain , Severe (7-10) Hydroxyzine HCl 10 mg 03/12/19 16:02 Atarax PO Q6H PRN Itching Sodium Chloride 500 mls @ 50 mls/hr 03/15/19 14:00 Nacl 0.9% 500 Ml IV DIRECT MAYLIN Insulin Human Isoph/Insulin Regular 10 unit 03/06/19 09:30 03/16/19 09:57 Humulin 70/30 SUB-Q 10 unit BIDDIAB MAYLIN Administration Insulin Human Lispro 0 unit 03/05/19 07:30 03/16/19 13:11 Humalog SUB-Q 4 unit ACHS [facility] Administration Protocol Isosorbide Mononitrate 120 mg 03/05/19 10:00 03/16/19 09:46 Imdur PO 120 mg QDAY MAYLIN Administration Metoclopramide HCl 10 mg 03/05/19 03:59 Reglan IV Q6H PRN Nausea And Vomiting Metoprolol Tartrate 100 mg 03/15/19 16:00 03/16/19 09:50 Metoprolol PO 100 mg BID@0800,1700 MAYLIN Administration Nitroglycerin 0.4 mg 03/07/19 22:30 03/10/19 20:50 Nitrostat SL 0.4 mg .Q5MIN PRN Administration Chest Pain Ondansetron HCl 4 mg 03/05/19 03:59 Zofran IV Q3H PRN Nausea And Vomiting Oxycodone/Acetaminophen 1 tab 03/05/19 03:59 03/16/19 15:21 Percocet 5/325 PO 1 tab Q6H PRN Administration Pain, Moderate (4-6) Pantoprazole Sodium 40 mg 03/05/19 10:00 03/16/19 09:51 Protonix PO 40 mg QDAY MAYLIN Administration Sodium Chloride 10 ml 03/05/19 10:00 03/16/19 09:48 Sodium Chloride Flush Syringe 10 Ml IV 10 ml BID MAYLIN Administration Sodium Chloride 10 ml 03/05/19 03:59 Sodium Chloride Flush Syringe 10 Ml IV PRN PRN LINE FLUSH
== END 2019-03-16 17:20 | disposition home health service (06) | DRG 871 ==
LOC: ED 22:19 → 4A 03-05 00:42
PROVIDERS: ADMIT Internal Medicine; ATTEND Family Medicine
PROC: 5A09357 Assistance with Respiratory Ventilation, Less than 24 Consecutive Hours, Continuous Positive Airway Pressure (ICD-10-PCS; 2019-03-04)
PROC: 30233N1 Transfusion of Nonautologous Red Blood Cells into Peripheral Vein, Percutaneous Approach (ICD-10-PCS; 2019-03-05)
PROC: 5A09357 Assistance with Respiratory Ventilation, Less than 24 Consecutive Hours, Continuous Positive Airway Pressure (ICD-10-PCS; 2019-03-05)
PROC: 5A09357 Assistance with Respiratory Ventilation, Less than 24 Consecutive Hours, Continuous Positive Airway Pressure (ICD-10-PCS; 2019-03-07)
PROC: 0W9B3ZZ Drainage of Left Pleural Cavity, Percutaneous Approach (ICD-10-PCS; principal; 2019-03-08)
PROC: BB4BZZZ Ultrasonography of Pleura (ICD-10-PCS; 2019-03-08)
PROC: 5A09357 Assistance with Respiratory Ventilation, Less than 24 Consecutive Hours, Continuous Positive Airway Pressure (ICD-10-PCS; 2019-03-12)
PROC: 0JH63XZ Insertion of Tunneled Vascular Access Device into Chest Subcutaneous Tissue and Fascia, Percutaneous Approach (ICD-10-PCS; 2019-03-15)
PROC: 0W9B30Z Drainage of Left Pleural Cavity with Drainage Device, Percutaneous Approach (ICD-10-PCS; 2019-03-15)
PROC: BB4BZZZ Ultrasonography of Pleura (ICD-10-PCS; 2019-03-15)
DX: A41.9 Sepsis, unspecified organism (principal); J18.9 Pneumonia, unspecified organism; J96.01 Acute respiratory failure with hypoxia; I21.A1 Myocardial infarction type 2; I50.43 Acute on chronic combined systolic (congestive) and diastolic (congestive) heart failure; J90 Pleural effusion, not elsewhere classified; I42.9 Cardiomyopathy, unspecified; J44.1 Chronic obstructive pulmonary disease with (acute) exacerbation; J44.0 Chronic obstructive pulmonary disease with (acute) lower respiratory infection; C34.92 Malignant neoplasm of unspecified part of left bronchus or lung; I13.0 Hypertensive heart and chronic kidney disease with heart failure and stage 1 through stage 4 chronic kidney disease, or unspecified chronic kidney disease; N17.9 Acute kidney failure, unspecified; I25.10 Atherosclerotic heart disease of native coronary artery without angina pectoris; D64.9 Anemia, unspecified; D47.3 Essential (hemorrhagic) thrombocythemia; E11.51 Type 2 diabetes mellitus with diabetic peripheral angiopathy without gangrene; E78.2 Mixed hyperlipidemia; M10.9 Gout, unspecified; K21.9 Gastro-esophageal reflux disease without esophagitis; E11.22 Type 2 diabetes mellitus with diabetic chronic kidney disease; N18.9 Chronic kidney disease, unspecified; Z88.0 Allergy status to penicillin; Z79.899 Other long term (current) drug therapy; Z82.49 Family history of ischemic heart disease and other diseases of the circulatory system; Z83.3 Family history of diabetes mellitus; Z80.9 Family history of malignant neoplasm, unspecified; Z95.5 Presence of coronary angioplasty implant and graft; Z79.4 Long term (current) use of insulin
CPT/HCPCS: 32550; 32555; 36415; 36430; 71045; 71250; 74177; 80048; 80053; 80061; 80202; 82140; 82803; 82962; 83036; 83735; 83880; 84484; 85007; 85025; 85027; 85610; 86850; 86900; 86901; 86920; 87040; 88112; 88305; 88341; 88342; 93005; 93010; 94640; 94660; 94760; G0378; A9270-GY; C1729; C1769; J0360; J1170; J1644; J1815; J1940; J2250; J2930; J3010; J3370; J7040; P9016; Q9967

== ENCOUNTER 2019-03-17 17:20 | Inpatient (IN) | payer MEDICARE ==
[2019-03-17] MEDS ORDERED: FUROSEMIDE 40 MG/4 ML INJ IV ONE (17:23)
--- NOTE | 2019-03-17 17:28 | Emergency Department Report ---
ED Shortness of Breath HPI - General Stated Complaint: RUPA Time Seen by Provider: 03/17/19 17:23 - History of Present Illness Initial Comments: Patient is 73 years old female with history of COPD, CHF, hypertension, diabetes and recent diagnosis of squamous cell carcinoma of the lung with cavitary mass. Patient was discharged from the hospital yesterday after patient had thoracocentesis secondary to pleural effusion also. Patient brought to the [facility] room via EMS for acute respiratory distress. EMS stated patient initial oxygen saturation was 81% improved to 91% on nonrebreather. Patient found to have a blood pressure of 240/132. Patient given Lasix 40 mg and nitroglycerin 0.4 mg by EMS with some improvement in patient's symptoms. Upon arrival to the ER patient is tachypneic with oxygen saturation of 91% on nonrebreather. Patient blood pressure is 204/111. Patient immediately started on BiPAP, given extra dose of Lasix 20 mg IV and patient started on nitroglycerin drip. Patient also given a albuterol and Atrovent. MD Complaint: shortness of breath - Related Data Previous Rx's Medication Instructions Recorded Last Taken Type ALBUTEROL NEB's [Proventil 0.083% 2.5 mg IH Q3HRT PRN #100 nebu 03/16/19 Unknown Rx NEBS] Allopurinol [Zyloprim] 100 mg PO DAILY #30 tablet 03/16/19 Unknown Rx Aspirin EC 325 mg PO QDAY #30 tablet 03/16/19 Unknown Rx AtorvaSTATin [Lipitor] 40 mg PO QHS #30 tablet 03/16/19 Unknown Rx Cilostazol [Pletal] 50 mg PO BID #60 tablet 03/16/19 Unknown Rx Ferrous Sulfate [Feosol 325 MG tab] 325 mg PO DAILY #30 tablet 03/16/19 Unknown Rx Folic Acid [Folvite] 1 mg PO QDAY #30 tablet 03/16/19 Unknown Rx Furosemide [Lasix TAB] 20 mg PO QDAY #30 tablet 03/16/19 Unknown Rx ISOSORBIDE MONOnitrate [Imdur ER] 120 mg PO QDAY #1 tablet 03/16/19 Unknown Rx Insulin NPH/Regular [NovoLIN 70/30] 8 unit SUB-Q ACHS #300 units 03/16/19 Unknown Rx Insulin NPH/Regular [NovoLIN 70/30] 10 unit SUB-Q BIDDIAB units 03/16/19 Unknown Rx Ipratropium (Nf) [Atrovent HFA 2 puff IH Q6HR PRN #1 inha 03/16/19 Unknown Rx 17MCG/PUFF] Metoprolol [Lopressor TAB] 100 mg PO BID@0800,1700 #60 tablet 03/16/19 Unknown Rx Pantoprazole [Protonix TAB] 40 mg PO QDAY #30 tablet 03/16/19 Unknown Rx hydrALAZINE [Apresoline TAB] 25 mg PO Q8HR #90 tablet 03/16/19 Unknown Rx hydrOXYzine HCL [Atarax] 10 mg PO Q6H PRN #30 tablet 03/16/19 Unknown Rx oxyCODONE /ACETAMINOPHEN [Percocet 1 tab PO Q6H PRN #8 tablet 03/16/19 Unknown Rx 5/325 mg] Allergies Allergy/AdvReac Type Severity Reaction Status Date / Time ibuprofen Allergy Unknown Verified 02/18/19 23:29 Penicillins Allergy Unknown Verified 02/18/19 23:29 ED Review of Systems ROS: Stated complaint: RUPA Other details as noted in HPI Comment: All other systems reviewed and negative Constitutional: denies: chills, fever Respiratory: cough, orthopnea, shortness of breath, SOB with exertion, SOB at rest, wheezing Cardiovascular: dyspnea on exertion, orthopnea. denies: chest pain, pal pitations Gastrointestinal: denies: abdominal pain, nausea, vomiting, diarrhea, constipation, hematemesis, melena, hematochezia Musculoskeletal: denies: back pain Neurological: denies: headache, weakness ED Past Medical Hx - Past Medical History Hx Hypertension: Yes Hx Congestive Heart Failure: Yes Hx Diabetes: Yes Hx Liver Disease: No Hx Renal Disease: No - Surgical History Hx Coronary Stent: Yes (3 stents) Additional Surgical History: stent placement - Social History Smoking Status: Former Smoker - Medications Home Medications: Home Medications Medication Instructions Recorded Confirmed Last Taken Type ALBUTEROL NEB's [Proventil 0.083% 2.5 mg IH Q3HRT PRN #100 nebu 03/16/19 Unknown Rx NEBS] Allopurinol [Zyloprim] 100 mg PO DAILY #30 tablet 03/16/19 Unknown Rx Aspirin EC 325 mg PO QDAY #30 tablet 03/16/19 Unknown Rx AtorvaSTATin [Lipitor] 40 mg PO QHS #30 tablet 03/16/19 Unknown Rx Cilostazol [Pletal] 50 mg PO BID #60 tablet 03/16/19 Unknown Rx Ferrous Sulfate [Feosol 325 MG tab] 325 mg PO DAILY #30 tablet 03/16/19 Unknown Rx Folic Acid [Folvite] 1 mg PO QDAY #30 tablet 03/16/19 Unknown Rx Furosemide [Lasix TAB] 20 mg PO QDAY #30 tablet 03/16/19 Unknown Rx ISOSORBIDE MONOnitrate [Imdur ER] 120 mg PO QDAY #1 tablet 03/16/19 Unknown Rx Insulin NPH/Regular [NovoLIN 70/30] 8 unit SUB-Q ACHS #300 units 03/16/19 Unknown Rx Insulin NPH/Regular [NovoLIN 70/30] 10 unit SUB-Q BIDDIAB units 03/16/19 Unknown Rx Ipratropium (Nf) [Atrovent HFA 2 puff IH Q6HR PRN #1 inha 03/16/19 Unknown Rx 17MCG/PUFF] Metoprolol [Lopressor TAB] 100 mg PO BID@0800,1700 #60 tablet 03/16/19 Unknown Rx Pantoprazole [Protonix TAB] 40 mg PO QDAY #30 tablet 03/16/19 Unknown Rx hydrALAZINE [Apresoline TAB] 25 mg PO Q8HR #90 tablet 03/16/19 Unknown Rx hydrOXYzine HCL [Atarax] 10 mg PO Q6H PRN #30 tablet 03/16/19 Unknown Rx oxyCODONE /ACETAMINOPHEN [Percocet 1 tab PO Q6H PRN #8 tablet 03/16/19 Unknown Rx 5/325 mg] ED Physical Exam - General General appearance: alert, in distress - Head Head exam: Present: atraumatic, normocephalic, normal inspection - Eye Eye exam: Present: normal appearance - ENT ENT exam: Present: normal exam, normal orophraynx, mucous membranes moist - Neck Neck exam: Present: normal inspection, full ROM. Absent: tenderness, meningismus, lymphadenopathy, thyromegaly - Respiratory Respiratory exam: Present: respiratory distress, wheezes, rales, rhonchi, chest wall tenderness, accessory muscle use, decreased breath sounds, prolonged expiratory. Absent: stridor - Cardiovascular Cardiovascular Exam: Present: regular rate, normal rhythm, normal heart sounds - GI/Abdominal GI/Abdominal exam: Present: soft, normal bowel sounds. Absent: distended, tenderness, guarding, rebound, rigid, organomegaly, mass, bruit, pulsatile mass, hernia - Extremities Exam Extremities exam: Present: normal inspection, full ROM, normal capillary refill, pedal edema. Absent: calf tenderness - Back Exam Back exam: Present: normal inspection, full ROM. Absent: CVA tenderness (R), CVA tenderness (L) - Neurological Exam Neurological exam: Present: alert, oriented X3 - Skin Skin exam: Present: warm, intact, normal color ED Course Vital Signs 03/17/19 03/17/19 03/17/19 17:24 17:30 17:45 Temperature 98.6 F Pulse Rate 95 H 87 Pulse Rate [ Anterior Bilateral Throughout] Respiratory 40 H 30 H Rate Respiratory Rate [Anterior Bilateral Throughout] Blood Pressure 203/101 188/63 O2 Sat by Pulse 91 100 Oximetry 03/17/19 18:35 Temperature Pulse Rate Pulse Rate [ 74 Anterior Bilateral Throughout] Respiratory Rate Respiratory 32 H Rate [Anterior Bilateral Throughout] Blood Pressure O2 Sat by Pulse Oximetry ED Medical Decision Making - Lab Data Result diagrams: 03/17/19 17:49 03/17/19 17:49 - EKG Data -: EKG Interpreted by Pa EKG shows normal: sinus rhythm Rate: normal - EKG Data Interpretation: no acute changes - Radiology Data Radiology results: report reviewed - Medical Decision Making Patient is 73 years old female with history of COPD, CHF, hypertension, diabetes and recent diagnosis of squamous cell carcinoma of the lung with cavitary mass. Patient was discharged from the hospital yesterday after patient had thoracocentesis secondary to pleural effusion also. Patient brought to the emergency room via EMS for acute respiratory distress. EMS stated patient initial oxygen saturation was 81% improved to 91% on nonrebreather. Patient found to have a blood pressure of 240/132. Patient given Lasix 40 mg and nitroglycerin 0.4 mg by EMS with some improvement in patient's symptoms. Upon arrival to the ER patient is tachypneic with oxygen saturation of 91% on nonrebreather. Patient blood pressure is 204/111. Patient immediately started on BiPAP, given extra dose of Lasix 20 mg IV and patient started on nitroglycerin drip. Patient also given a albuterol and Atrovent. Patient's symptoms improved. Labs reviewed that showed elevated blood blood cells. Chest x-ray showed complete opacification of the left lung. Patient treated with Levaquin for possible hospital-acquired pneumonia. I discussed the patient is Dr. Stuart, who agreed to admit the patient to medical service for further management. Critical Care Time: Yes Critical care time in (mins) excluding proc time.: 30 Critical care attestation.: If time is entered above; I have spent that time in minutes in the direct care of this critically ill patient, excluding procedure time. ED Disposition Clinical Impression: Squamous cell carcinoma of both lungs, COPD with exacerbation, Acute respiratory failure with hypoxia, Acute respiratory distress, CHF exacerbation Disposition: OP ADMIT IP TO THIS HOSP Is pt being admited?: Yes Condition: Stable Instructions: Chronic Obstructive Pulmonary Disease (ED)
[2019-03-17] MEDS ORDERED: IPRATROPIUM 0.02% NEBU 2.5 ML IH ONE (17:33)
[2019-03-17] MEDS ORDERED: ALBUTEROL 2.5 MG/3 ML NEBU IH ONE (17:33)
--- NOTE | 2019-03-17 18:05 | XRay Report ---
CHEST 1 VIEW INDICATION / CLINICAL INFORMATION: Dyspnea. COMPARISON: 03/16/2019 FINDINGS: SUPPORT DEVICES: Left chest tube remains in place. HEART / MEDIASTINUM: No significant abnormality. LUNGS / PLEURA: The right lung is clear and unchanged with increased interstitial markings noted. Com plete opacification remains at the left chest with abrupt occlusion of the left mainstem bronchus see n likely due to either plugging or tumor. No pneumothorax. ADDITIONAL FINDINGS: No significant additional findings. IMPRESSION: 1. No significant change Signer Name: Billy Rapp MD Signed: 03/17/2019 6:00 PM Workstation Name: [id number]
[2019-03-17 18:22] LABS: Basophils # (Auto) 0.1 K/mm3 (0.0-0.1); Basophils % (Auto) 0.6 % (0.0-1.8); Eosinophils # (Auto) 0.2 K/mm3 (0.0-0.4); Eosinophils % (Auto) 1.3 % (0.0-4.3); Hematocrit 30.8 % (30.3-42.9); Hemoglobin 9.9 gm/dl (10.1-14.3); Lymphocytes # (Auto) 1.1 K/mm3 (1.2-5.4); Lymphocytes % (Auto) 6.1 % (13.4-35.0); Mean Corpuscular HGB Conc 32 % (30-34); Mean Corpuscular Volume 83 fl (79-97); Platelet Count 351 K/mm3 (140-440); Red Blood Count 3.73 M/mm3 (3.65-5.03)
[2019-03-17 18:30] LABS: INR 1.03 (0.87-1.13)
[2019-03-17 18:31] LABS: Partial Thromboplastin Time 35.3 Sec. (24.2-36.6)
[2019-03-17 18:37] LABS: Calcium 8.3 mg/dL (8.4-10.2)
[2019-03-17 18:53] LABS: Chol/HDL Ratio 1.93 %
--- NOTE | 2019-03-17 19:06 | History and Physical Report ---
History of Present Illness Chief complaint: She cant breathe History of present illness: 73 YO Female with Stage 4 Lung Cancer with Cavitary Mass, HTN, DM, Nicotine Dependence, CAD S/P Stent Placement presents to ED for evaluation. Pt is lethargic and confused and unable to provide history. Pt history provided by her daughter who is at bedside during exam and interview. As per daughter, the patient was discharged from [facility] on 03/16/19. Pt was found by daughter to have worsening shortness of breath, and decreased responsiveness over the past 24 hours. EMS notified, and upon arrival the patient was found to be in distress and transported to [facility]. Pt seen and evaluated in ED and found to have Acute on Chronic Hypoxemic Respiratory Failure with pulse oximetry of 81% on Room air, Sepsis secondary to Metastatic Lung cancer, Encephalopathy. Pt placed on NRB mask with 100% oxygen. be lethargic upon waking from sleep. Pt is unable to speak due to respiratory distress. Pt found to have poor prognosis. Advanced Care Planning conducted in ED. Pt daughter elects to make patient DNR and to initiated comfort care. Pt admitted to FISH unit. [facility] Consulted in ED as per family request, and hospice evaluation scheduled for 03/18/19. No further history obtainable. Past History Past Medical History: other (see HPI) Past Surgical History: Other (Cardiac stent) Social history: single. denies: smoking, alcohol abuse, prescription drug abuse Family history: hypertension Medications and Allergies Allergies Allergy/AdvReac Type Severity Reaction Status Date / Time ibuprofen Allergy Unknown Verified 02/18/19 23:29 Penicillins Allergy Unknown Verified 02/18/19 23:29 Home Medications Medication Instructions Recorded Confirmed Last Taken Type ALBUTEROL NEB's [Proventil 0.083% 2.5 mg IH Q3HRT PRN #100 nebu 03/16/19 Unknown Rx NEBS] Allopurinol [Zyloprim] 100 mg PO DAILY #30 tablet 03/16/19 Unknown Rx Aspirin EC 325 mg PO QDAY #30 tablet 03/16/19 Unknown Rx AtorvaSTATin [Lipitor] 40 mg PO QHS #30 tablet 03/16/19 Unknown Rx Cilostazol [Pletal] 50 mg PO BID #60 tablet 03/16/19 Unknown Rx Ferrous Sulfate [Feosol 325 MG tab] 325 mg PO DAILY #30 tablet 03/16/19 Unknown Rx Folic Acid [Folvite] 1 mg PO QDAY #30 tablet 03/16/19 Unknown Rx Furosemide [Lasix TAB] 20 mg PO QDAY #30 tablet 03/16/19 Unknown Rx ISOSORBIDE MONOnitrate [Imdur ER] 120 mg PO QDAY #1 tablet 03/16/19 Unknown Rx Insulin NPH/Regular [NovoLIN 70/30] 8 unit SUB-Q ACHS #300 units 03/16/19 Unknown Rx Insulin NPH/Regular [NovoLIN 70/30] 10 unit SUB-Q BIDDIAB units 03/16/19 Unknown Rx Ipratropium (Nf) [Atrovent HFA 2 puff IH Q6HR PRN #1 inha 03/16/19 Unknown Rx 17MCG/PUFF] Metoprolol [Lopressor TAB] 100 mg PO BID@0800,1700 #60 tablet 03/16/19 Unknown Rx Pantoprazole [Protonix TAB] 40 mg PO QDAY #30 tablet 03/16/19 Unknown Rx hydrALAZINE [Apresoline TAB] 25 mg PO Q8HR #90 tablet 03/16/19 Unknown Rx hydrOXYzine HCL [Atarax] 10 mg PO Q6H PRN #30 tablet 03/16/19 Unknown Rx oxyCODONE /ACETAMINOPHEN [Percocet 1 tab PO Q6H PRN #8 tablet 03/16/19 Unknown Rx 5/325 mg] Active Meds: Active Medications Levofloxacin/Dextrose (Levaquin 500mg/100ml) 500 mg in 100 mls @ 100 mls/hr IV ONCE ONE; Protocol Stop: 03/17/19 19:46 Review of Systems ROS unobtainable: due to mental status Exam - Constitutional Vitals: Temp Pulse Resp BP Pulse Ox 98.6 F 74 32 H 188/63 100 03/17/19 17:45 03/17/19 18:35 03/17/19 18:35 03/17/19 17:30 03/17/19 17:30 General appearance: Present: severe distress - EENT Eyes: Present: miosis - Respiratory Respiratory effort: labored, accessory muscle use, stridor Respiratory: bilateral: diminished, rhonchi - Cardiovascular Rhythm: other (tachycardia) Heart Sounds: Present: S1 & S2. Absent: rub, click - Extremities Extremity abnormal: edema Peripheral Pulses: abnormal (capillary refill greater than 3.5 seconds) - Abdominal General gastrointestinal: Present: soft, non-tender, non-distended, normal bowel sounds Female genitourinary: Present: normal - Integumentary Integumentary: Present: clear, dry, clammy, decreased turgor - Musculoskeletal Musculoskeletal: generalized weakness - Psychiatric Psychiatric: no appropriate mood/affect, no intact judgment & insight, no memory intact - Neurologic Neurologic: moves all extremities, no gait normal Results - Labs CBC & Chem 7: 03/17/19 17:49 03/17/19 17:49 Labs: Abnormal lab results 03/17/19 03/17/19 03/17/19 Range/Units 17:49 17:49 18:33 WBC 17.3 H (4.5-11.0) K/mm3 Hgb 9.9 L (10.1-14.3) gm/dl MCH 26 L (28-32) pg RDW 20.0 H (13.2-15.2) % Lymph % (Auto) 6.1 L (13.4-35.0) % Lymph # 1.1 L (1.2-5.4) K/mm3 [place] # 1.0 H (0.0-0.8) K/mm3 Seg Neutrophils % 86.0 H (40.0-70.0) % Seg Neutrophils # 14.9 H (1.8-7.7) K/mm3 POC ABG pO2 146 H (80-105) Sodium 132 L (137-145) mmol/L Potassium 5.1 H (3.6-5.0) mmol/L Chloride 97.6 L (98-107) mmol/L Carbon Dioxide 16 L (22-30) mmol/L BUN 40 H (7-17) mg/dL Creatinine 1.3 H (0.7-1.2) mg/dL Glucose 240 H (65-100) mg/dL Calcium 8.3 L (8.4-10.2) mg/dL Troponin T 0.032 H (0.00-0.029) ng/mL LDL Cholesterol Direct 46 L (50-130) mg/dL HDL Cholesterol 74 H (40-59) mg/dL Assessment and Plan - Patient Problems (1) Sepsis Current Visit: Yes Status: Acute Plan to address problem: Pt found to have Poor prognosis. Pt daughter elects to make patient DNR and to initiated comfort care measures. Pt admitted to FISH unit. Hospice consulted and patient is pending evaluation on 03/18/19 as per daughter request. (2) Encephalopathy Current Visit: Yes Status: Acute Plan to address problem: Pt found to have Poor prognosis. Pt daughter elects to make patient DNR and to initiated comfort care measures. Pt admitted to FISH unit. Hospice consulted and patient is pending evaluation on 03/18/19 as per daughter request. (3) Acidosis Current Visit: Yes Status: Acute Plan to address problem: Pt found to have Poor prognosis. Pt daughter elects to make patient DNR and to initiated comfort care measures. Pt admitted to FISH unit. Hospice consulted and patient is pending evaluation on 03/18/19 as per daughter request. (4) Advance care planning Current Visit: Yes Status: Acute (5) NEELIMA (acute kidney injury) Current Visit: No Status: Acute (6) Acute respiratory failure with hypoxia Current Visit: No Status: Acute Plan to address problem: Supplemental oxygen, comfort care. Pt found to have Poor prognosis. Pt daughter elects to make patient DNR and to initiated comfort care measures. Pt admitted to FISH unit. Hospice consulted and patient is pending evaluation on 03/18/19 as per daughter request. (7) DVT prophylaxis Current Visit: Yes Status: Acute Plan to address problem: Pt found to have Poor prognosis. Pt daughter elects to make patient DNR and to initiated comfort care measures. Pt admitted to FISH unit. Hospice consulted and patient is pending evaluation on 03/18/19 as per daughter request.
[2019-03-17] MEDS ORDERED: ONDANSETRON 4 MG/2 ML INJ IV PRN (19:50)
[2019-03-17] MEDS ORDERED: ACETAMINOPHEN 325 MG TAB PO PRN (19:50)
[2019-03-17] MEDS ORDERED: MORPHINE 2 MG/1 ML INJ IV PRN (19:53)
[2019-03-17] MEDS ORDERED: LORazepam 2 MG/ML VIAL IV PRN (19:54)
[2019-03-17] MEDS ORDERED: LORazepam 2 MG/ML VIAL IV ONE (19:54)
[2019-03-17] MEDS ORDERED: MORPHINE 4 MG/1 ML INJ IV ONE (19:56)
[2019-03-18] MEDS ORDERED: oxyCODONE /ACETAMINOPHEN 5-325MG TAB PO PRN (10:51)
[2019-03-18] MEDS ORDERED: ALBUTEROL 2.5 MG/3 ML NEBU IH PRN (10:51)
[2019-03-18] MEDS ORDERED: hydrOXYzine HCL 10 MG TAB PO PRN (10:51)
[2019-03-18] MEDS ORDERED: INSULIN NPH/REGULAR 70/30 INJ SUB-Q SCH (11:30)
--- NOTE | 2019-03-18 11:32 | Progress Note ---
Assessment and Plan Assessment and plan: 73 YO Female with Stage 4 Lung Cancer with Cavitary Mass, HTN, DM, Nicotine Dependence, CAD S/P Stent Placement presents to ED for evaluation. Pt is lethargic and confused and unable to provide history. Pt history provided by her daughter who is at bedside during exam and interview. As per daughter, the patient was discharged from [facility] on 03/16/19. Pt was found by daughter to have worsening shortness of breath, and decreased responsiveness over the past 24 hours. EMS notified, and upon arrival the patient was found to be in distress and transported to [facility]. Pt seen and evaluated in ED and found to have Acute on Chronic Hypoxemic Respiratory Failure with pulse oximetry of 81% on Room air, Sepsis secondary to Metastatic Lung cancer, Encephalopathy. Pt placed on NRB mask with 100% oxygen. be lethargic upon waking from sleep. Pt is unable to speak due to respiratory distress. Pt found to have poor prognosis. Advanced Care Planning conducted in ED. Pt daughter elects to make patient DNR and to ini tiated comfort care. * Recent previous admission patient had a Pleurx catheter placed after thoracen tesis with his 100 fluids removed from the left lung. Had a history of congestive failure with ejection fraction of 30-35%. When patient was treated with diuretics and beta blockers and ACEI daily weights 2 g sodium diet. Patient's symptoms improved. Family was thought on the management of the Pl eurx catheter and they have stated that initially it was 750 mL/h balance of 500 except in the last the patient to the hospital for shortness of breath. * Family and patient at this points despite discussion in the ED does not want hospice non-distended grave prognosis for this patient. * Malignant Cells present Consistent with Metastatic Carcinoma on pathology Squamous cell carcinoma of both lungs Acute respiratory failure with hypoxia COPD with exacerbation SIRS secondary to Reactive vs Metastatic Disease Toxic Metabolic Encephalopathy now back to baseline Recently treated with ABX OF Sepsis secondary to HCAP (healthcare-associated pneumonia) Lung mass Metabolic Acidosis NSTEMI (non-ST elevated myocardial infarction) NSVT (nonsustained ventricular tachycardia) Paroxysmal atrial fibrillation with RVR Advance care planning NEELIMA (acute kidney injury) secondary to vasomotor nephropathy Plan Continue supportive care Extensively discussed with family (Daughter,) about grave prognosis. Discussed with Cardiology Change to oral antibiotics in am doubt sepsis at this time resume appropriate home meds monitor renal function anticipate discharge in am if patient remains clinically stable and shortness of breath is improved which is still the factor holding hospitalization All questions answered dvt/gi prophy - Patient Problems (1) Advance care planning Current Visit: Yes Status: Acute History Interval history: Follow-up lung CA with left pleural effusion admitted to respiratory failure Patient seen and examined this morning resting comfortably on oxygen. While still having mild shortness of breath with exertion at rest she is stable. Daughter at this time and patient adamantly refuses hospice. Denies any chest pain no fever noted. Hospitalist Physical - Physical exam Narrative exam: VITAL SIGNS: Reviewed. GENERAL: The patient appears normally developed, resting comfortably although short of breath with exertion Vital signs as documented. HEAD: No signs of head trauma. EYES: Pupils are equal. Extraocular motions intact. EARS: Hearing grossly intact. MOUTH: Oropharynx is normal. NECK: No adenopathy, no JVD. CHEST: Chest with clear breath sounds on the right but diminished on the left. Pleurx catheter noted in place.. No wheezes. CARDIAC: Regular rate and rhythm. S1 and S2, with grade 35 systolic ejection murmur, no gallops or rubs appreciated . VASCULAR: Bilateral +2 pitting edema. Peripheral pulses normal and equal in all extremities. ABDOMEN: Soft, non tender and non distended. No rebound or guarding, and no masses palpated. Bowel Sounds normal. MUSCULOSKELETAL: Good range of motion of all major joints. Extremities without clubbing, cyanosis. Bilateral postictal edema. NEUROLOGIC EXAM: Alert and oriented x 3 No focal sensory or strength deficits. Speech normal. Follows commands. PSYCHIATRIC: Mood normal. SKIN: gluteal excouration noted, detail exam as documented in skin assessment - Constitutional Vitals: Temp Pulse Resp BP Pulse Ox 97.9 F 81 20 159/69 100 03/18/19 07:02 03/18/19 07:02 03/18/19 07:02 03/18/19 07:02 03/18/19 09:13 General appearance: Present: severe distress Results - Labs CBC & Chem 7: 03/17/19 17:49 03/17/19 17:49 Labs: Laboratory Last Values WBC 17.3 K/mm3 (4.5-11.0) H 03/17/19 17:49 RBC 3.73 M/mm3 (3.65-5.03) 03/17/19 17:49 Hgb 9.9 gm/dl (10.1-14.3) L 03/17/19 17:49 Hct 30.8 % (30.3-42.9) 03/17/19 17:49 MCV 83 fl (79-97) 03/17/19 17:49 MCH 26 pg (28-32) L 03/17/19 17:49 MCHC 32 % (30-34) 03/17/19 17:49 RDW 20.0 % (13.2-15.2) H 03/17/19 17:49 Plt Count 351 K/mm3 (140-440) 03/17/19 17:49 Lymph % (Auto) 6.1 % (13.4-35.0) L 03/17/19 17:49 [place] % (Auto) 6.0 % (0.0-7.3) 03/17/19 17:49 Eos % (Auto) 1.3 % (0.0-4.3) 03/17/19 17:49 Baso % (Auto) 0.6 % (0.0-1.8) 03/17/19 17:49 Lymph # 1.1 K/mm3 (1.2-5.4) L 03/17/19 17:49 [place] # 1.0 K/mm3 (0.0-0.8) H 03/17/19 17:49 Eos # 0.2 K/mm3 (0.0-0.4) 03/17/19 17:49 Baso # 0.1 K/mm3 (0.0-0.1) 03/17/19 17:49 Seg Neutrophils % 86.0 % (40.0-70.0) H 03/17/19 17:49 Seg Neutrophils # 14.9 K/mm3 (1.8-7.7) H 03/17/19 17:49 PT 13.6 Sec. (12.2-14.9) 03/17/19 17:49 INR 1.03 (0.87-1.13) 03/17/19 17:49 APTT 35.3 Sec. (24.2-36.6) 03/17/19 17:49 POC ABG pH 7.420 (7.35-7.45) 03/17/19 18:33 POC ABG pCO2 37.4 (35-45) 03/17/19 18:33 POC ABG pO2 146 (80-105) H 03/17/19 18:33 POC ABG HCO3 24.2 (22-26 mml/L) 03/17/19 18:33 POC ABG Total CO2 25 (23-27mmol/L) 03/17/19 18:33 POC ABG O2 Sat 99 03/17/19 18:33 POC ABG Base Excess 0 ((-2) - (+3)mmol/L) 03/17/19 18:33 FiO2 60 % 03/17/19 18:33 Sodium 132 mmol/L (137-145) L 03/17/19 17:49 Potassium 5.1 mmol/L (3.6-5.0) H 03/17/19 17:49 Chloride 97.6 mmol/L (98-107) L 03/17/19 17:49 Carbon Dioxide 16 mmol/L (22-30) L 03/17/19 17:49 Anion Gap 24 mmol/L 03/17/19 17:49 BUN 40 mg/dL (7-17) H 03/17/19 17:49 Creatinine 1.3 mg/dL (0.7-1.2) H 03/17/19 17:49 Estimated GFR 48 ml/min 03/17/19 17:49 BUN/Creatinine Ratio 31 % 03/17/19 17:49 Glucose 240 mg/dL (65-100) H 03/17/19 17:49 POC Glucose 226 (70-105) H 03/18/19 11:34 Lactic Acid 1.70 mmol/L (0.7-2.0) 03/17/19 17:49 Calcium 8.3 mg/dL (8.4-10.2) L 03/17/19 17:49 Magnesium 2.20 mg/dL (1.7-2.3) 03/17/19 17:49 Troponin T 0.031 ng/mL (0.00-0.029) H 03/17/19 20:03 NT-Pro-B Natriuret Pep 88199 pg/mL (0-900) H 03/17/19 20:03 Triglycerides 100 mg/dL (2-149) 03/17/19 17:49 Cholesterol 143 mg/dL (50-199) 03/17/19 17:49 LDL Cholesterol Direct 46 mg/dL (50-130) L 03/17/19 17:49 HDL Cholesterol 74 mg/dL (40-59) H 03/17/19 17:49 Cholesterol/HDL Ratio 1.93 % 03/17/19 17:49 - Imaging and Cardiology Chest x-ray: image reviewed (completely opacified left sided effusion, catherter in place) Active Medications - Current Medications Current Medications: Generic Name Dose Route Start Last Admin Trade Name Freq PRN Reason Stop Dose Admin Acetaminophen 650 mg 03/17/19 19:50 Tylenol PO Q4H PRN Pain MILD(1-3)/Fever >100.5/BRENNER Albuterol 2.5 mg 03/18/19 10:51 Proventil IH Q3HRT PRN Shortness Of Breath Allopurinol 100 mg 03/19/19 10:00 Zyloprim PO DAILY [facility] Aspirin 325 mg 03/19/19 10:00 Ecotrin PO QDAY [facility] Atorvastatin Calcium 40 mg 03/18/19 22:00 Lipitor PO QHS [facility] Cilostazol 50 mg 03/18/19 22:00 Pletal PO BID [facility] Ferrous Sulfate 325 mg 03/19/19 10:00 Feosol PO DAILY [facility] Folic Acid 1 mg 03/19/19 10:00 Folvite PO QDAY [facility] Furosemide 20 mg 03/19/19 06:00 Lasix PO DAILY@0600 [facility] Hydralazine HCl 25 mg 03/18/19 14:00 Apresoline PO Q8HR [facility] Hydroxyzine HCl 10 mg 03/18/19 10:51 Atarax PO Q6H PRN Itching Insulin Human Isoph/Insulin Regular 10 unit 03/18/19 17:00 Humulin 70/30 SUB-Q BIDDIAB [facility] Insulin Human Lispro 8 unit 03/18/19 11:30 Humalog SUB-Q ACHS [facility] Isosorbide Mononitrate 120 mg 03/19/19 10:00 Imdur PO QDAY [facility] Lorazepam 1 mg 03/17/19 19:54 Ativan IV Q4H PRN Agitation Metoprolol Tartrate 100 mg 03/18/19 17:00 Metoprolol PO BIDDIAB [facility] Morphine Sulfate 2 mg 03/17/19 19:53 Morphine IV Q4H PRN Pain, Moderate (4-6) Ondansetron HCl 4 mg 03/17/19 19:50 Zofran IV Q8H PRN Nausea And Vomiting Oxycodone/Acetaminophen 1 tab 03/18/19 10:51 Percocet 5/325 PO Q6H PRN Pain, Moderate (4-6) Pantoprazole Sodium 40 mg 03/19/19 10:00 Protonix PO QDAY [facility] Sodium Chloride 10 ml 03/17/19 22:00 03/18/19 09:02 Sodium Chloride Flush Syringe 10 Ml IV 10 ml BID [facility]LIN Administration Sodium Chloride 10 ml 03/17/19 19:50 Sodium Chloride Flush Syringe 10 Ml IV PRN PRN LINE FLUSH
[2019-03-18] MEDS: INSULIN LISPRO 100 UNIT/ML SUB-Q SCH ×3 (11:38→21:40)
--- NOTE | 2019-03-18 12:41 | Consultation ---
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 I the patient's daughter drains the chest tube at home. Patient has to wait until the daughter is available after work each day. I yesterday, the patient's daughter was not available to drain the chest tube in time and the patient can short of breath resulting in her presentation in the ER. Per patient, the patient's da ughter typically is able to drain 500-700 mL's of fluid. Initial chest x-ray performed in the ER demonstrates complete opacification of the left hemithorax. The patient's daughter came to her hospital room today and drained 500 mL's of fluid through the indwelling catheter. At time of examination, the patient is resting comfortably without significant respiratory distress. No additional fluid was able to be drained out of the catheter at this time. Past History Past Medical History: cancer, other (see HPI) Past Surgical History: Other (Cardiac stent, left tunneled chest tube) Social history: single. denies: smoking, alcohol abuse, prescription drug abuse Family history: hypertension Medications and Allergies Allergies Allergy/AdvReac Type Severity Reaction Status Date / Time ibuprofen Allergy Unknown Verified 02/18/19 23:29 Penicillins Allergy Unknown Verified 02/18/19 23:29 Home Medications Medication Instructions Recorded Confirmed Last Taken Type ALBUTEROL NEB's [Proventil 0.083% 2.5 mg IH Q3HRT PRN #100 nebu 03/16/19 03/18/19 Unknown Rx NEBS] Allopurinol [Zyloprim] 100 mg PO DAILY #30 tablet 03/16/19 03/18/19 03/17/19 10:00 Rx 100 mg Aspirin EC 325 mg PO QDAY #30 tablet 03/16/19 03/18/19 03/17/19 10:00 Rx 325 mg AtorvaSTATin [Lipitor] 40 mg PO QHS #30 tablet 03/16/19 03/18/19 03/16/19 21:00 Rx 40 mg Cilostazol [Pletal] 50 mg PO BID #60 tablet 03/16/19 03/18/19 03/17/19 10:00 Rx 50 mg Ferrous Sulfate [Feosol 325 MG tab] 325 mg PO DAILY #30 tablet 03/16/19 03/18/19 03/17/19 10:00 Rx 325 mg Folic Acid [Folvite] 1 mg PO QDAY #30 tablet 03/16/19 03/18/19 03/17/19 10:00 Rx 1 mg Furosemide [Lasix TAB] 20 mg PO QDAY #30 tablet 03/16/19 03/18/19 03/17/19 10:00 Rx 20 mg ISOSORBIDE MONOnitrate [Imdur ER] 120 mg PO QDAY #1 tablet 03/16/19 03/18/19 03/17/19 10:00 Rx 120 mg Insulin NPH/Regular [NovoLIN 70/30] 8 unit SUB-Q ACHS #300 units 03/16/19 03/18/19 Unknown Rx Insulin NPH/Regular [NovoLIN 70/30] 10 unit SUB-Q BIDDIAB units 03/16/19 03/18/19 Unknown Rx Ipratropium (Nf) [Atrovent HFA 2 puff IH Q6HR PRN #1 inha 03/16/19 03/18/19 Unknown Rx 17MCG/PUFF] Metoprolol [Lopressor TAB] 100 mg PO BID@0800,1700 #60 tablet 03/16/19 03/18/19 03/17/19 08:00 Rx 100 mg Pantoprazole [Protonix TAB] 40 mg PO QDAY #30 tablet 03/16/19 03/18/19 03/17/19 10:00 Rx 40 mg hydrALAZINE [Apresoline TAB] 25 mg PO Q8HR #90 tablet 03/16/19 03/18/19 03/17/19 10:00 Rx 25 mg hydrOXYzine HCL [Atarax] 10 mg PO Q6H PRN #30 tablet 03/16/19 03/18/19 Unknown Rx oxyCODONE /ACETAMINOPHEN [Percocet 1 tab PO Q6H PRN #8 tablet 03/16/19 03/18/19 Unknown Rx 5/325 mg] Active Meds: Active Medications Acetaminophen (Tylenol) 650 mg PO Q4H PRN PRN Reason: Pain MILD(1-3)/Fever >100.5/BRENNER Albuterol (Proventil) 2.5 mg IH Q3HRT PRN PRN Reason: Shortness Of Breath Allopurinol (Zyloprim) 100 mg PO DAILY [facility] Aspirin (Ecotrin) 325 mg PO QDAY [facility] Atorvastatin Calcium (Lipitor) 40 mg PO QHS [facility] Cilostazol (Pletal) 50 mg PO BID [facility] Ferrous Sulfate (Feosol) 325 mg PO DAILY [facility] Folic Acid (Folvite) 1 mg PO QDAY [facility] Furosemide (Lasix) 20 mg PO DAILY@0600 [facility] Hydralazine HCl (Apresoline) 25 mg PO Q8HR [facility] Hydroxyzine HCl (Atarax) 10 mg PO Q6H PRN PRN Reason: Itching Insulin Human Isoph/Insulin Regular (Humulin 70/30) 10 unit SUB-Q BIDDIAB [facility] Insulin Human Lispro (Humalog) 8 unit SUB-Q ACHS [facility] Last Admin: 03/18/19 11:38 Dose: 8 unit Documented by: Isosorbide Mononitrate (Imdur) 120 mg PO QDAY [facility] Lorazepam (Ativan) 1 mg IV Q4H PRN PRN Reason: Agitation Metoprolol Tartrate (Metoprolol) 100 mg PO BIDDIAB [facility] Morphine Sulfate (Morphine) 2 mg IV Q4H PRN PRN Reason: Pain, Moderate (4-6) Ondansetron HCl (Zofran) 4 mg IV Q8H PRN PRN Reason: Nausea And Vomiting Oxycodone/Acetaminophen (Percocet 5/325) 1 tab PO Q6H PRN PRN Reason: Pain, Moderate (4-6) Pantoprazole Sodium (Protonix) 40 mg PO QDAY [facility] Sodium Chloride (Sodium Chloride Flush Syringe 10 Ml) 10 ml IV BID [facility] Last Admin: 03/18/19 09:02 Dose: 10 ml Documented by: Sodium Chloride (Sodium Chloride Flush Syringe 10 Ml) 10 ml IV PRN PRN PRN Reason: LINE FLUSH Review of Systems All systems: negative Exam - Constitutional Vitals: Temp Pulse Resp BP Pulse Ox 97.9 F 81 20 159/69 98 03/18/19 07:02 03/18/19 10:59 03/18/19 10:59 03/18/19 07:02 03/18/19 10:59 General appearance: Present: no acute distress - EENT Eyes: Present: EOM intact ENT: hearing intact - Neck Neck: Present: supple - Respiratory Respiratory effort: normal - Abdominal General gastrointestinal: Present: deferred Female genitourinary: Present: deferred - Rectal Rectal Exam: deferred - Psychiatric Psychiatric: appropriate mood/affect, cooperative Results - Labs CBC & Chem 7: 03/17/19 17:49 03/17/19 17:49 Labs: Abnormal lab results 03/17/19 03/17/19 03/17/19 Range/Units 17:49 17:49 18:33 WBC 17.3 H (4.5-11.0) K/mm3 Hgb 9.9 L (10.1-14.3) gm/dl MCH 26 L (28-32) pg RDW 20.0 H (13.2-15.2) % Lymph % (Auto) 6.1 L (13.4-35.0) % Lymph # 1.1 L (1.2-5.4) K/mm3 [place] # 1.0 H (0.0-0.8) K/mm3 Seg Neutrophils % 86.0 H (40.0-70.0) % Seg Neutrophils # 14.9 H (1.8-7.7) K/mm3 POC ABG pO2 146 H (80-105) Sodium 132 L (137-145) mmol/L Potassium 5.1 H (3.6-5.0) mmol/L Chloride 97.6 L (98-107) mmol/L Carbon Dioxide 16 L (22-30) mmol/L BUN 40 H (7-17) mg/dL Creatinine 1.3 H (0.7-1.2) mg/dL Glucose 240 H (65-100) mg/dL POC Glucose (70-105) Calcium 8.3 L (8.4-10.2) mg/dL Troponin T 0.032 H (0.00-0.029) ng/mL NT-Pro-B Natriuret Pep (0-900) pg/mL LDL Cholesterol Direct 46 L (50-130) mg/dL HDL Cholesterol 74 H (40-59) mg/dL 03/17/19 03/17/19 03/18/19 Range/Units 20:03 20:03 11:34 WBC (4.5-11.0) K/mm3 Hgb (10.1-14.3) gm/dl MCH (28-32) pg RDW (13.2-15.2) % Lymph % (Auto) (13.4-35.0) % Lymph # (1.2-5.4) K/mm3 [place] # (0.0-0.8) K/mm3 Seg Neutrophils % (40.0-70.0) % Seg Neutrophils # (1.8-7.7) K/mm3 POC ABG pO2 (80-105) Sodium (137-145) mmol/L Potassium (3.6-5.0) mmol/L Chloride (98-107) mmol/L Carbon Dioxide (22-30) mmol/L BUN (7-17) mg/dL Creatinine (0.7-1.2) mg/dL Glucose (65-100) mg/dL POC Glucose 226 H (70-105) Calcium (8.4-10.2) mg/dL Troponin T 0.031 H (0.00-0.029) ng/mL NT-Pro-B Natriuret Pep 03558 H (0-900) pg/mL LDL Cholesterol Direct (50-130) mg/dL HDL Cholesterol (40-59) mg/dL - Imaging and Cardiology Chest x-ray: image reviewed Assessment and Plan Patient with very tenuous respiratory status. While at home, the patient experiences respiratory distress if she is not able to drain her chest tube in a timely fashion. The patient is reliant upon her daughter to do so. Patient may benefit from either home health nursing who is able to drain the catheter earlier in the day versus placement in a nursing facility. The patient's catheter is currently functioning.
--- NOTE | 2019-03-18 12:46 | Consultation ---
History of Present Illness Consult date: 03/18/19 Requesting physician: RENEE KLEIN Consult reason: congestive heart failure History of present illness: The pt is a 73 YO female with a past medical history of stage 4 lung CA with Cavitary Mass, recurrent pleural effusion with pleural catheter in place, CAD s/p ? AMI with PCI in 2008 and 2012 in [place] (per pt report), newly diagnosed paroxysmal atrial fibrillation, HFrEF, CMP, HTN, DM, tobacco use (recently quit smoking). She has been seen by our practice on prior hospitalization. Pt is lethargic and unable to provide much history. Pt history provided by her daughter who is at bedside. As per daughter, the patient was discharged from [facility] on 03/16/19. Pt was found by daughter to have worsening shortness of breath, and decreased responsiveness over the past 24 hours. EMS notified, and upon arrival the patient was found to be in distress and transported to [facility]. Pt seen and evaluated in ED and found to have Acute on Chronic Hypoxemic Respiratory Failure with pulse oximetry of 81% on Room air, Sepsis secondary to Metastatic Lung cancer, Encephalopathy. Pt placed on NRB mask with 100% oxygen. Pt found to have poor prognosis in setting of stage 4 lung CA. Advanced Care Planning conducted in ED. Pt daughter elected to make patient DNR and to initiated comfort care. Pt admitted to FISH unit. [facility] ice Consulted in ED as per family request, and hospice evaluation scheduled for 03/18/19. Echo done 02/19/2019 showed EF 30-35%, impaired relaxation, mild MR and TR, RVSP 46mmHg, basal anterior, mid anterior and apical anterior wall segments hypokinetic, mid inferoseptal and apical septal wall segments akinetic. Lexiscan MPI stress test done 02/23/2018 showed moderate ischemia, EF 35%. However, it was decided to proceed with conservative cardiac management in setting of significant anemia, renal insufficiency and overall clinical status. Past History Past Medical History: cancer, other (see HPI) Past Surgical History: Other (Cardiac stent, left tunneled chest tube) Social history: single. denies: smoking, alcohol abuse, prescription drug abuse Family history: hypertension Medications and Allergies Allergies Allergy/AdvReac Type Severity Reaction Status Date / Time ibuprofen Allergy Unknown Verified 02/18/19 23:29 Penicillins Allergy Unknown Verified 02/18/19 23:29 Home Medications Medication Instructions Recorded Confirmed Last Taken Type ALBUTEROL NEB's [Proventil 0.083% 2.5 mg IH Q3HRT PRN #100 nebu 03/16/19 03/18/19 Unknown Rx NEBS] Allopurinol [Zyloprim] 100 mg PO DAILY #30 tablet 03/16/19 03/18/19 03/17/19 10:00 Rx 100 mg Aspirin EC 325 mg PO QDAY #30 tablet 03/16/19 03/18/19 03/17/19 10:00 Rx 325 mg AtorvaSTATin [Lipitor] 40 mg PO QHS #30 tablet 03/16/19 03/18/19 03/16/19 21:00 Rx 40 mg Cilostazol [Pletal] 50 mg PO BID #60 tablet 03/16/19 03/18/19 03/17/19 10:00 Rx 50 mg Ferrous Sulfate [Feosol 325 MG tab] 325 mg PO DAILY #30 tablet 03/16/19 03/18/19 03/17/19 10:00 Rx 325 mg Folic Acid [Folvite] 1 mg PO QDAY #30 tablet 03/16/19 03/18/19 03/17/19 10:00 Rx 1 mg Furosemide [Lasix TAB] 20 mg PO QDAY #30 tablet 03/16/19 03/18/19 03/17/19 10:00 Rx 20 mg ISOSORBIDE MONOnitrate [Imdur ER] 120 mg PO QDAY #1 tablet 03/16/19 03/18/19 03/17/19 10:00 Rx 120 mg Insulin NPH/Regular [NovoLIN 70/30] 8 unit SUB-Q ACHS #300 units 03/16/19 03/18/19 Unknown Rx Insulin NPH/Regular [NovoLIN 70/30] 10 unit SUB-Q BIDDIAB units 03/16/19 03/18/19 Unknown Rx Ipratropium (Nf) [Atrovent HFA 2 puff IH Q6HR PRN #1 inha 03/16/19 03/18/19 Unknown Rx 17MCG/PUFF] Metoprolol [Lopressor TAB] 100 mg PO BID@0800,1700 #60 tablet 03/16/19 03/18/19 03/17/19 08:00 Rx 100 mg Pantoprazole [Protonix TAB] 40 mg PO QDAY #30 tablet 03/16/19 03/18/19 03/17/19 10:00 Rx 40 mg hydrALAZINE [Apresoline TAB] 25 mg PO Q8HR #90 tablet 03/16/19 03/18/19 03/17/19 10:00 Rx 25 mg hydrOXYzine HCL [Atarax] 10 mg PO Q6H PRN #30 tablet 03/16/19 03/18/19 Unknown Rx oxyCODONE /ACETAMINOPHEN [Percocet 1 tab PO Q6H PRN #8 tablet 03/16/19 03/18/19 Unknown Rx 5/325 mg] Active Meds: Active Medications Acetaminophen (Tylenol) 650 mg PO Q4H PRN PRN Reason: Pain MILD(1-3)/Fever >100.5/BRENNER Albuterol (Proventil) 2.5 mg IH Q3HRT PRN PRN Reason: Shortness Of Breath Allopurinol (Zyloprim) 100 mg PO DAILY [facility] Aspirin (Ecotrin) 325 mg PO QDAY [facility] Atorvastatin Calcium (Lipitor) 40 mg PO QHS [facility] Cilostazol (Pletal) 50 mg PO BID [facility] Ferrous Sulfate (Feosol) 325 mg PO DAILY [facility] Folic Acid (Folvite) 1 mg PO QDAY [facility] Furosemide (Lasix) 20 mg PO DAILY@0600 [facility] Hydralazine HCl (Apresoline) 25 mg PO Q8HR [facility] Hydroxyzine HCl (Atarax) 10 mg PO Q6H PRN PRN Reason: Itching Insulin Human Isoph/Insulin Regular (Humulin 70/30) 10 unit SUB-Q BIDDIAB [facility] Insulin Human Lispro (Humalog) 8 unit SUB-Q ACHS [facility] Last Admin: 03/18/19 11:38 Dose: 8 unit Documented by: Isosorbide Mononitrate (Imdur) 120 mg PO QDAY [facility] Lorazepam (Ativan) 1 mg IV Q4H PRN PRN Reason: Agitation Metoprolol Tartrate (Metoprolol) 100 mg PO BIDDIAB [facility] Morphine Sulfate (Morphine) 2 mg IV Q4H PRN PRN Reason: Pain, Moderate (4-6) Ondansetron HCl (Zofran) 4 mg IV Q8H PRN PRN Reason: Nausea And Vomiting Oxycodone/Acetaminophen (Percocet 5/325) 1 tab PO Q6H PRN PRN Reason: Pain, Moderate (4-6) Pantoprazole Sodium (Protonix) 40 mg PO QDAY [facility] Sodium Chloride (Sodium Chloride Flush Syringe 10 Ml) 10 ml IV BID [facility] Last Admin: 03/18/19 09:02 Dose: 10 ml Documented by: Sodium Chloride (Sodium Chloride Flush Syringe 10 Ml) 10 ml IV PRN PRN PRN Reason: LINE FLUSH Review of Systems Constitutional: no weight loss, no weight gain, no fever, no chills, no sweats Ears, nose, mouth and throat: no ear pain, no nose pain, no sinus pressure, no sinus pain Cardiovascular: orthopnea, shortness of breath, dyspnea on exertion, no chest pain, no palpitations, no rapid/irregular heart beat, no edema, no syncope, no lightheadedness Respiratory: cough, shortness of breath, dyspnea on exertion, no congestion, no wheezing Gastrointestinal: no abdominal pain, no nausea, no vomiting, no diarrhea, no constipation, no change in bowel habits Genitourinary Female: no flank pain, no menorrhagia, no dysuria, no urinary frequency, no urgency Musculoskeletal: no neck stiffness, no neck pain, no shooting arm pain, no arm numbness/tingling, no low back pain, no shooting leg pain Integumentary: no rash, no pruritis, no redness, no sores, no wounds Neurological: no head injury, no paralysis, no weakness, no parathesias, no numbness, no tingling, no seizures, no syncope Psychiatric: no anxiety Endocrine: no cold intolerance, no heat intolerance Hematologic/Lymphatic: no easy bruising, no easy bleeding Allergic/Immunologic: no urticaria, no wheezing Physical Examination Vital Signs Pulse Resp BP Pulse Ox 95 H 40 H 203/101 91 03/17/19 17:24 03/17/19 17:24 03/17/19 17:24 03/17/19 17:24 General appearance: no acute distress HEENT: Positive: PERRL, Normocephaly, Mucus Membranes Moist Neck: Positive: neck supple, trachea midline Cardiac: Positive: Reg Rate and Rhythm, S1/S2 Lungs: Positive: Decreased Breath Sounds Neuro: Positive: Grossly Intact Abdomen: Negative: Tender Skin: Negative: Rash Musculoskeletal: No Pain Extremities: Absent: edema Results 03/17/19 17:49 12/11/19 17:49 Coagulation 03/17/19 Range/Units 17:49 PT 13.6 (12.2-14.9) Sec. INR 1.03 (0.87-1.13) APTT 35.3 (24.2-36.6) Sec. Lipids 03/17/19 Range/Units 17:49 Triglycerides 100 (2-149) mg/dL Cholesterol 143 (50-199) mg/dL HDL Cholesterol 74 H (40-59) mg/dL Cholesterol/HDL Ratio 1.93 % CBC 03/17/19 Range/Units 17:49 WBC 17.3 H (4.5-11.0) K/mm3 RBC 3.73 (3.65-5.03) M/mm3 Hgb 9.9 L (10.1-14.3) gm/dl Hct 30.8 (30.3-42.9) % Plt Count 351 (140-440) K/mm3 Lymph # 1.1 L (1.2-5.4) K/mm3 Ross # 1.0 H (0.0-0.8) K/mm3 Eos # 0.2 (0.0-0.4) K/mm3 Baso # 0.1 (0.0-0.1) K/mm3 Comprehensive Metabolic Panel 03/17/19 Range/Units 17:49 Sodium 132 L (137-145) mmol/L Potassium 5.1 H (3.6-5.0) mmol/L Chloride 97.6 L (98-107) mmol/L Carbon Dioxide 16 L (22-30) mmol/L BUN 40 H (7-17) mg/dL Creatinine 1.3 H (0.7-1.2) mg/dL Glucose 240 H (65-100) mg/dL Calcium 8.3 L (8.4-10.2) mg/dL - Imaging and Cardiology Echo: report reviewed (02/19/2019 showed EF 30-35%, impaired relaxation, mild MR and TR, RVSP 46mmHg, basal anterior, mid anterior and apical anterior wall segments hypokinetic, mid inferoseptal and apical septal wall segments akinetic. ) EKG: report reviewed, image reviewed EKG interpretations - Telemetry EKG Rhythm: Sinus Rhythm - EKG Sinus rhythms and dysrhythmias: sinus rhythm Assessment and Plan Agree with present cardiac management. Per vascular team, pleural catheter appears to be functioning appropriately. Of note, pt has h/o recently diagnosed paroxysmal AFib with elevated CHADS score and thus she would benefit from salvage determiner systemic AC. As previously recommended, would initiate Eliquis if no contraindications. The patient has been seen in conjunction with Dr. Lynn who agrees with the assessment and plan of care. - Patient Problems (1) Acute respiratory failure Current Visit: Yes Status: Acute (2) Lung cancer Current Visit: Yes Status: Acute (3) Pleural effusion Current Visit: Yes Status: Acute (4) Paroxysmal atrial fibrillation Current Visit: Yes Status: Chronic (5) CAD (coronary artery disease) Current Visit: Yes Status: Chronic Qualifiers: Coronary Disease-Associated Artery/Lesion type: [place] artery (6) Stented coronary artery Current Visit: Yes Status: Chronic (7) Cardiomyopathy Current Visit: Yes Status: Chronic (8) Abnormal stress test Current Visit: Yes Status: Chronic (9) PAD (peripheral artery disease) Current Visit: Yes Status: Chronic (10) Elevated troponin Current Visit: Yes Status: Acute (11) Diabetes Current Visit: Yes Status: Chronic (12) Former tobacco use Current Visit: Yes Status: Chronic (13) Anemia Current Visit: Yes Status: Chronic (14) NSVT (nonsustained ventricular tachycardia) Current Visit: Yes Status: Acute (15) NEELIMA Current Visit: Yes Status: Acute (16) Hyperkalemia Current Visit: Yes Status: Acute (17) Hyponatremia Current Visit: Yes Status: Acute (18) Acute heart failure with reduced ejection fraction Current Visit: Yes Status: Acute
[2019-03-18] MEDS: hydrALAZINE 25 MG TAB PO SCH ×2 (13:50→21:40)
[2019-03-18] MEDS: INSULIN NPH/REGULAR 70/30 INJ SUB-Q SCH (16:24)
[2019-03-18] MEDS ORDERED: METOPROLOL TARTRATE 50 MG TAB PO SCH (17:00)
[2019-03-18] MEDS: METOPROLOL TARTRATE 100 MG TAB PO SCH (17:18)
[2019-03-18] MEDS: CILOSTAZOL 100 MG TAB PO SCH (21:39)
[2019-03-19 05:09] LABS: Hematocrit 25.5 % (30.3-42.9); Hemoglobin 8.4 gm/dl (10.1-14.3); Mean Corpuscular HGB Conc 33 % (30-34); Mean Corpuscular Volume 81 fl (79-97); Platelet Count 370 K/mm3 (140-440); Red Blood Count 3.14 M/mm3 (3.65-5.03); Red Cell Distribution Width 19.8 % (13.2-15.2)
[2019-03-19 05:23] LABS: Calcium 7.8 mg/dL (8.4-10.2)
[2019-03-19] MEDS: hydrALAZINE 25 MG TAB PO SCH ×2 (05:57→13:46)
[2019-03-19] MEDS ORDERED: FUROSEMIDE 40 MG TAB PO SCH (06:00)
[2019-03-19] MEDS: INSULIN LISPRO 100 UNIT/ML SUB-Q SCH ×3 (06:58→16:39)
[2019-03-19] MEDS: INSULIN NPH/REGULAR 70/30 INJ SUB-Q SCH ×2 (08:02→16:40)
[2019-03-19] MEDS: METOPROLOL TARTRATE 100 MG TAB PO SCH ×2 (08:09→17:21)
--- NOTE | 2019-03-19 08:41 | Event Note ---
Date: 03/19/19 [id number]
[2019-03-19] MEDS: CILOSTAZOL 100 MG TAB PO SCH (09:00)
[2019-03-19] MEDS ORDERED: FERROUS SULFATE 325 MG TAB PO SCH (10:00)
[2019-03-19] MEDS ORDERED: FOLIC ACID 1 MG TAB PO SCH (10:00)
[2019-03-19] MEDS ORDERED: PANTOPRAZOLE 40 MG TAB PO SCH (10:00)
[2019-03-19] MEDS ORDERED: ASPIRIN EC 325 MG TAB PO SCH (10:00)
[2019-03-19] MEDS ORDERED: allopurinoL 100 MG TAB PO SCH (10:00)
--- NOTE | 2019-03-19 10:49 | Progress Note ---
Assessment and Plan Agree with present cardiac management. Per vascular team, pleural catheter appears to be functioning appropriately. Of note, pt has h/o recently diagnosed paroxysmal AFib with elevated CHADS score and thus she would benefit from senior living systemic AC. As previously recommended, would initiate Eliquis if no contraindications. Nothing further to add from cardiac perspective at this time. Will sign off. Recommend follow up in our office with Dr. Lynn within 3-5 days of discharge ([phone]). The patient has been seen in conjunction with Dr. Lynn who agrees with the assessment and plan of care. - Patient Problems (1) Acute respiratory failure Current Visit: Yes Status: Acute (2) Lung cancer Current Visit: Yes Status: Acute (3) Pleural effusion Current Visit: Yes Status: Acute (4) Paroxysmal atrial fibrillation Current Visit: Yes Status: Chronic (5) CAD (coronary artery disease) Current Visit: Yes Status: Chronic Qualifiers: Coronary Disease-Associated Artery/Lesion type: [place] artery (6) Stented coronary artery Current Visit: Yes Status: Chronic (7) Cardiomyopathy Current Visit: Yes Status: Chronic (8) Abnormal stress test Current Visit: Yes Status: Chronic (9) PAD (peripheral artery disease) Current Visit: Yes Status: Chronic (10) Elevated troponin Current Visit: Yes Status: Acute (11) Diabetes Current Visit: Yes Status: Chronic (12) Former tobacco use Current Visit: Yes Status: Chronic (13) Anemia Current Visit: Yes Status: Chronic (14) NSVT (nonsustained ventricular tachycardia) Current Visit: Yes Status: Acute (15) NEELIMA Current Visit: Yes Status: Acute (16) Hyperkalemia Current Visit: Yes Status: Acute (17) Hyponatremia Current Visit: Yes Status: Acute (18) Acute heart failure with reduced ejection fraction Current Visit: Yes Status: Acute Subjective Date of service: 03/19/19 Principal diagnosis: HF Interval history: pt resting in bed, states that she is feeling much better today. Objective Last Vital Signs Temp 98.0 F 03/19/19 07:02 Pulse 78 03/19/19 10:00 Resp 20 03/19/19 10:00 BP 137/59 03/19/19 08:59 Pulse Ox 99 03/19/19 07:02 - Physical Examination General: No Apparent Distress HEENT: Positive: PERRL, Normocephaly, Mucus Membranes Moist Neck: Positive: neck supple, trachea midline Cardiac: Positive: Reg Rate and Rhythm, S1/S2 Lungs: Positive: Decreased Breath Sounds Neuro: Positive: Grossly Intact Abdomen: Negative: Tender Skin: Negative: Rash Musculoskeletal: No Pain Extremities: Absent: edema - Labs and Meds CBC 03/19/19 Range/Units 04:16 WBC 10.8 (4.5-11.0) K/mm3 RBC 3.14 L (3.65-5.03) M/mm3 Hgb 8.4 L (10.1-14.3) gm/dl Hct 25.5 L (30.3-42.9) % Plt Count 370 (140-440) K/mm3 Comprehensive Metabolic Panel 03/19/19 Range/Units 04:16 Sodium 134 L (137-145) mmol/L Potassium 4.8 (3.6-5.0) mmol/L Chloride 103.4 (98-107) mmol/L Carbon Dioxide 22 (22-30) mmol/L BUN 35 H (7-17) mg/dL Creatinine 1.1 (0.7-1.2) mg/dL Glucose 76 (65-100) mg/dL Calcium 7.8 L (8.4-10.2) mg/dL - Imaging and Cardiology EKG: report reviewed, image reviewed Echo: report reviewed (02/19/2019 showed EF 30-35%, impaired relaxation, mild MR and TR, RVSP 46mmHg, basal anterior, mid anterior and apical anterior wall segments hypokinetic, mid inferoseptal and apical septal wall segments akinetic. ) - EKG Sinus rhythms and dysrhythmias: sinus rhythm
--- NOTE | 2019-03-19 11:06 | Discharge Summary ---
Providers - Providers Date of Admission: 03/17/19 19:50 Attending physician: RENEE KLEIN MD 03/18/19 08:52 Physical Therapy Evaluation and Treat [CONS] Routine Comment: Reason For Exam: weakness 03/18/19 10:51 Consult to Physician [CONS] Routine Comment: Consulting Provider: SHERYL SEE Physician Instructions: Reason For Exam: respiratory failure secondary to lung ca and effus Consult to Physician [CONS] Routine Comment: NILAY Consulting Provider: PATRICK JARVIS Physician Instructions: TAVO STANLEY WAS NOTIFIED. Reason For Exam: CHF 03/18/19 11:46 Consult to Physician [CONS] Routine Comment: Consulting Provider: CAROL OLIVEIRA Physician Instructions: Reason For Exam: PLEURX CATHERTER PLACEMENT EVAL 03/18/19 11:47 Consult to Physician [CONS] Routine Comment: NILAY Consulting Provider: KAPIL RICHARDSON Physician Instructions: WAS NOTIFIED/LELE Reason For Exam: METASTATIC LUNG CA, FAMILY WANTS PROGNOSIS 03/18/19 15:45 Consult to Dietitian/Nutrition [CONS] Routine Physician Instructions: Reason For Exam: Stage II shearing injury to right buttock Reason for Consult: Pt needs oral supplement Consult to Wound/ET Nurse [CONS] Routine Reason For Exam: wound eval - Stage II Right buttock Primary care physician: CHEMIST PROTEINS Hospitalization Reason for admission: shortness of breath Condition: Stable Hospital course: 73 YO Female with Stage 4 Lung Cancer with Cavitary Mass, HTN, DM, Nicotine Dependence, CAD S/P Stent Placement presents to ED for evaluation. Pt is lethargic and confused and unable to provide history. Pt history provided by her daughter who is at bedside during exam and interview. As per daughter, the patient was discharged from [facility] on 03/16/19. Pt was found by daughter to have worsening shortness of breath, and decreased responsiveness over the past 24 hours. EMS notified, and upon arrival the patient was found to be in distress and transported to [facility]. Pt seen and evaluated in ED and found to have Acute on Chronic Hypoxemic Respiratory Failure with pulse oximetry of 81% on Room air, Sepsis secondary to Metastatic Lung cancer, Encephalopathy. Pt placed on NRB mask with 100% oxygen. be lethargic upon waking from sleep. Pt is unable to speak due to respiratory distress. Pt found to have poor prognosis. Advanced Care Planning conducted in ED. Pt daughter elects to make patient DNR and to initiated comfort care. * Recent previous admission patient had a Pleurx catheter placed after thoracentesis with his 100 fluids removed from the left lung. Had a history of congestive failure with ejection fraction of 30-35%. When patient was treated with diuretics and beta blockers and ACEI daily weights 2 g sodium diet. Patient's symptoms improved. Family was thought on the management of the Pleurx catheter and they have stated that initially it was 750 mL/h balance of 500 except in the last the patient to the hospital for shortness of breath. * Family and patient at this points despite discussion in the ED does not want hospice non-distended grave prognosis for this patient. * Malignant Cells present Consistent with Metastatic Carcinoma on pathology * Patient was seen by cardiology due to history of atrial fibrillation started on Eliquis. * Her clinical status is improved breathing is good she was also evaluated by a vascular surgeon Pleurx catheter is in place appropriately. Further education provided to the family * She is currently accepted at [facility] will be discharged and recommended to follow with hematology from there. Squamous cell carcinoma of both lungs Acute respiratory failure with hypoxia COPD with exacerbation SIRS secondary to Reactive vs Metastatic Disease Toxic Metabolic Encephalopathy now back to baseline Recently treated with ABX OF Sepsis secondary to HCAP (healthcare-associated pneumonia) Lung mass Left lobe of pleural effusion Metabolic Acidosis NSTEMI (non-ST elevated myocardial infarction) NSVT (nonsustained ventricular tachycardia) Paroxysmal atrial fibrillation with RVR Advance care planning NEELIMA (acute kidney injury) secondary to vasomotor nephropathy CAD s/p Stented coronary artery Cardiomyopathy PAD (peripheral artery disease) DM Anemia Hyperkalemia Hyponatremia Acute systolic heart failure with reduced ejection fraction Disposition: [id number]/TX-06 HOME [facility] - Discharge Diagnoses (1) Advance care planning Status: Acute Core Measure Documentation - Palliative Care Palliative Care/ Comfort Measures: Not Applicable - Core Measures Any of the following diagnoses?: none Exam - Physical Exam Narrative exam: VITAL SIGNS: Reviewed. GENERAL: The patient appears normally developed, resting comfortably, Vital signs as documented. HEAD: No signs of head trauma. EYES: Pupils are equal. Extraocular motions intact. EARS: Hearing grossly intact. MOUTH: Oropharynx is normal. NECK: No adenopathy, no JVD. CHEST: Chest with clear breath sounds on the right but diminished on the left. Pleurx catheter noted in place.. No wheezes. CARDIAC: Regular rate and rhythm. S1 and S2, with grade 35 systolic ejection murmur, no gallops or rubs appreciated . VASCULAR: Bilateral +2 pitting edema. Peripheral pulses normal and equal in all extremities. ABDOMEN: Soft, non tender and non distended. No rebound or guarding, and no masses palpated. Bowel Sounds normal. MUSCULOSKELETAL: Good range of motion of all major joints. Extremities without clubbing, cyanosis. Bilateral postictal edema. NEUROLOGIC EXAM: Alert and oriented x 3 No focal sensory or strength deficits. Speech normal. Follows commands. PSYCHIATRIC: Mood normal. SKIN: gluteal excouration noted, detail exam as documented in skin assessment - Constitutional Vitals: Temp Pulse Resp BP Pulse Ox 98.0 F 78 20 137/59 99 03/19/19 07:02 03/19/19 10:00 03/19/19 10:00 03/19/19 08:59 03/19/19 07:02 Plan Activity: advance as tolerated, fall precautions Diet: low fat, low salt Special Instructions: record daily weights, record daily BP diary Follow up with: PRIMARY CARE, [Primary Care Provider] - 7 Days Prescriptions: Apixaban [Eliquis] 5 mg PO BID #30 tablet
[2019-03-19 17:21] VITALS: BP 130/47
--- NOTE | 2019-03-22 11:21 | Consultation ---
REFERRING PHYSICIAN: Dr. Ozuna. REASON FOR CONSULTATION: Lung cancer. HISTORY OF PRESENT ILLNESS: I saw the patient, a 73-year-old female in the medical floor. I spoke to the patient's daughter on telephone. She has had multiple admissions in the last few days. She was discharged on 03/16/2019 and was readmitted. She was diagnosed with squamous cell cancer of lung. She has left upper lobe mass. She has been short of breath, pleural effusion was present. A PleurX catheter was placed, which is draining about 500 mL a day. She also has history of anemia, thrombocytosis, low folic acid. The patient has been seen by radiation team in the past. The patient ____ hospital because of shortness of breath, saturation was 81%. She was placed on oxygen. At this time, she is on oxygen support. No chest pain, no vomiting, no diarrhea, no hematemesis, no hematochezia. She had hemoptysis in the past. PAST MEDICAL HISTORY: As above. PAST SURGICAL HISTORY: Cardiac stent. SOCIAL HISTORY: Lives alone. Her daughter helps. No history of smoking or alcohol usage. FAMILY HISTORY: Hypertension. ALLERGIES: IBUPROFEN and PENICILLIN. HOME MEDICATIONS: Included aspirin, Pletal, folic acid, metoprolol, insulin. PHYSICAL EXAMINATION: VITAL SIGNS: Temperature 98.2, pulse 76, respirations 20, BP 123/50. HEENT: Pallor present, no icterus. On oxygen. NECK: No neck lymph nodes. HEART: S1, S2. LUNGS: Decreased air entry. PleurX catheter present. ABDOMEN: Soft. ____. LABORATORY DATA: White cell ____, hemoglobin 8.4, MCV 81, platelets 370. Potassium 4.8, creatinine 1.1, calcium 7.8. RADIOLOGY: Chest x-ray was done. ASSESSMENT: 1. Squamous cell cancer of lung. This may be secondary to pleural effusion. She has a PleurX catheter, which is draining about 500 mL a day. It is her performance status, which is preventing aggressive treatment. Once breathing improves, we can look into outpatient treatment. Testing has been sent out for targeted markers. This result will come in a few days' time. I spoke to the patient's daughter. 2. Anemia. 3. History of thrombocytosis. 4. PleurX catheter. 5. Mention of encephalopathy. 6. Stage 4 squamous cell lung cancer, pleural effusion was positive. 7. Poor prognosis. We will see her in the clinic if she is stable for targeted agent treatment option. JOB# [id number] NM/NTS
== END 2019-03-19 19:00 | DRG 871 ==
LOC: ED 17:20 → 2B-ACE 19:50
PROVIDERS: ADMIT Internal Medicine; ATTEND Internal Medicine
PROC: 5A09357 Assistance with Respiratory Ventilation, Less than 24 Consecutive Hours, Continuous Positive Airway Pressure (ICD-10-PCS; principal; 2019-03-17)
PROC: 4A033R1 Measurement of Arterial Saturation, Peripheral, Percutaneous Approach (ICD-10-PCS; 2019-03-17)
PROC: 5A09357 Assistance with Respiratory Ventilation, Less than 24 Consecutive Hours, Continuous Positive Airway Pressure (ICD-10-PCS; 2019-03-18)
DX: A41.9 Sepsis, unspecified organism (principal); I50.21 Acute systolic (congestive) heart failure; G92 Toxic encephalopathy; I21.4 Non-ST elevation (NSTEMI) myocardial infarction; N17.0 Acute kidney failure with tubular necrosis; J96.21 Acute and chronic respiratory failure with hypoxia; J18.9 Pneumonia, unspecified organism; I47.2 Ventricular tachycardia; E87.1 Hypo-osmolality and hyponatremia; C34.92 Malignant neoplasm of unspecified part of left bronchus or lung; C34.91 Malignant neoplasm of unspecified part of right bronchus or lung; E87.2 Acidosis; F17.200 Nicotine dependence, unspecified, uncomplicated; I25.10 Atherosclerotic heart disease of native coronary artery without angina pectoris; I11.0 Hypertensive heart disease with heart failure; I48.0 Paroxysmal atrial fibrillation; E11.51 Type 2 diabetes mellitus with diabetic peripheral angiopathy without gangrene; E87.5 Hyperkalemia; R65.10 Systemic inflammatory response syndrome (SIRS) of non-infectious origin without acute organ dysfunction; Z51.5 Encounter for palliative care; Z66 Do not resuscitate; Z95.5 Presence of coronary angioplasty implant and graft; Z82.49 Family history of ischemic heart disease and other diseases of the circulatory system; Z88.6 Allergy status to analgesic agent; Z88.0 Allergy status to penicillin; Z79.51 Long term (current) use of inhaled steroids; Z79.899 Other long term (current) drug therapy; Z79.82 Long term (current) use of aspirin; Z79.4 Long term (current) use of insulin
CPT/HCPCS: 36415; 71045; 80048; 80061; 82140; 82803; 82962; 83735; 83880; 84484; 85025; 85027; 85610; 85730; 87040; 93005; 93010; 94644; 94660; 94760; 96374; G0378; A9270-GY; J1815; J1940; J1956

== ENCOUNTER 2019-03-21 20:03 | Observation (INO) | payer MEDICARE ==
--- NOTE | 2019-03-21 22:25 | Emergency Department Report ---
ED Shortness of Breath HPI - General Chief Complaint: Dyspnea/Respdistress Stated Complaint: SOB Time Seen by Provider: 03/21/19 22:07 Source: patient, family, EMS Mode of arrival: Stretcher Limitations: No Limitations - History of Present Illness Initial Comments: Patient is 73 years old female with stage IV lung cancer with cavitary mass, hypertension, diabetes, nicotine dependence patient is status post left pleural catheter for drainage of left pleural effusion. Patient was recently discharged from the [address] Patient presented to the ER, and by her daughter stating that she is unable to drain her fluids today because she does not have the supplies that needed for drainage. She stated that she drained 400 mL yesterday. Patient is complaining of shortness of breath but no other complaint. Patient denied any fever, chest pain, nausea or vomiting. MD Complaint: shortness of breath - Related Data Previous Rx's Medication Instructions Recorded Last Taken Type ALBUTEROL NEB's [Proventil 0.083% 2.5 mg IH Q3HRT PRN #100 nebu 03/16/19 Unknown Rx NEBS] Allopurinol [Zyloprim] 100 mg PO DAILY #30 tablet 03/16/19 03/17/19 10:00 Rx 100 mg Aspirin EC 325 mg PO QDAY #30 tablet 03/16/19 03/17/19 10:00 Rx 325 mg AtorvaSTATin [Lipitor] 40 mg PO QHS #30 tablet 03/16/19 03/16/19 21:00 Rx 40 mg Cilostazol [Pletal] 50 mg PO BID #60 tablet 03/16/19 03/17/19 10:00 Rx 50 mg Ferrous Sulfate [Feosol 325 MG tab] 325 mg PO DAILY #30 tablet 03/16/19 03/17/19 10:00 Rx 325 mg Folic Acid [Folvite] 1 mg PO QDAY #30 tablet 03/16/19 03/17/19 10:00 Rx 1 mg Furosemide [Lasix TAB] 20 mg PO QDAY #30 tablet 03/16/19 03/17/19 10:00 Rx 20 mg ISOSORBIDE MONOnitrate [Imdur ER] 120 mg PO QDAY #1 tablet 03/16/19 03/17/19 10:00 Rx 120 mg Insulin NPH/Regular [NovoLIN 70/30] 8 unit SUB-Q ACHS #300 units 03/16/19 Unknown Rx Insulin NPH/Regular [NovoLIN 70/30] 10 unit SUB-Q BIDDIAB units 03/16/19 Unknown Rx Ipratropium (Nf) [Atrovent HFA 2 puff IH Q6HR PRN #1 inha 03/16/19 Unknown Rx 17MCG/PUFF] Metoprolol [Lopressor TAB] 100 mg PO BID@0800,1700 #60 tablet 03/16/19 03/17/19 08:00 Rx 100 mg Pantoprazole [Protonix TAB] 40 mg PO QDAY #30 tablet 03/16/19 03/17/19 10:00 Rx 40 mg hydrALAZINE [Apresoline TAB] 25 mg PO Q8HR #90 tablet 03/16/19 03/17/19 10:00 Rx 25 mg hydrOXYzine HCL [Atarax] 10 mg PO Q6H PRN #30 tablet 03/16/19 Unknown Rx oxyCODONE /ACETAMINOPHEN [Percocet 1 tab PO Q6H PRN #8 tablet 03/16/19 Unknown Rx 5/325 mg] Apixaban [Eliquis] 5 mg PO BID #30 tablet 03/19/19 Unknown Rx Allergies Allergy/AdvReac Type Severity Reaction Status Date / Time ibuprofen Allergy Unknown Verified 02/18/19 23:29 Penicillins Allergy Unknown Verified 02/18/19 23:29 ED Review of Systems ROS: Stated complaint: SOB Other details as noted in HPI Comment: All other systems reviewed and negative Constitutional: denies: chills, fever Respiratory: orthopnea, shortness of breath, SOB with exertion, SOB at rest. denies: cough, wheezing Cardiovascular: dyspnea on exertion, orthopnea. denies: chest pain, palpitations Gastrointestinal: denies: abdominal pain, nausea, vomiting ED Past Medical Hx - Past Medical History Previous Medical History?: Yes Hx Hypertension: Yes Hx Congestive Heart Failure: Yes Hx Diabetes: Yes Hx Liver Disease: No Hx Renal Disease: No Hx COPD: Yes Additional medical history: Renal failure but not on dialysis - Surgical History Hx Coronary Stent: Yes (3 stents) Additional Surgical History: stent placement, pleur x drain - Social History Smoking Status: Former Smoker - Medications Home Medications: Home Medications Medication Instructions Recorded Confirmed Last Taken Type ALBUTEROL NEB's [Proventil 0.083% 2.5 mg IH Q3HRT PRN #100 nebu 03/16/19 03/18/19 Unknown Rx NEBS] Allopurinol [Zyloprim] 100 mg PO DAILY #30 tablet 03/16/19 03/18/19 03/17/19 10:00 Rx 100 mg Aspirin EC 325 mg PO QDAY #30 tablet 03/16/19 03/18/19 03/17/19 10:00 Rx 325 mg AtorvaSTATin [Lipitor] 40 mg PO QHS #30 tablet 03/16/19 03/18/19 03/16/19 21:00 Rx 40 mg Cilostazol [Pletal] 50 mg PO BID #60 tablet 03/16/19 03/18/19 03/17/19 10:00 Rx 50 mg Ferrous Sulfate [Feosol 325 MG tab] 325 mg PO DAILY #30 tablet 03/16/19 03/18/19 03/17/19 10:00 Rx 325 mg Folic Acid [Folvite] 1 mg PO QDAY #30 tablet 03/16/19 03/18/19 03/17/19 10:00 Rx 1 mg Furosemide [Lasix TAB] 20 mg PO QDAY #30 tablet 03/16/19 03/18/19 03/17/19 10:00 Rx 20 mg ISOSORBIDE MONOnitrate [Imdur ER] 120 mg PO QDAY #1 tablet 03/16/19 03/18/19 03/17/19 10:00 Rx 120 mg Insulin NPH/Regular [NovoLIN 70/30] 8 unit SUB-Q ACHS #300 units 03/16/19 03/18/19 Unknown Rx Insulin NPH/Regular [NovoLIN 70/30] 10 unit SUB-Q BIDDIAB units 03/16/19 03/18/19 Unknown Rx Ipratropium (Nf) [Atrovent HFA 2 puff IH Q6HR PRN #1 inha 03/16/19 03/18/19 Unknown Rx 17MCG/PUFF] Metoprolol [Lopressor TAB] 100 mg PO BID@0800,1700 #60 tablet 03/16/19 03/18/19 03/17/19 08:00 Rx 100 mg Pantoprazole [Protonix TAB] 40 mg PO QDAY #30 tablet 03/16/19 03/18/19 03/17/19 10:00 Rx 40 mg hydrALAZINE [Apresoline TAB] 25 mg PO Q8HR #90 tablet 03/16/19 03/18/19 03/17/19 10:00 Rx 25 mg hydrOXYzine HCL [Atarax] 10 mg PO Q6H PRN #30 tablet 03/16/19 03/18/19 Unknown Rx oxyCODONE /ACETAMINOPHEN [Percocet 1 tab PO Q6H PRN #8 tablet 03/16/19 03/18/19 Unknown Rx 5/325 mg] Apixaban [Eliquis] 5 mg PO BID #30 tablet 03/19/19 Unknown Rx ED Physical Exam - General Limitations: No Limitations General appearance: alert, in no apparent distress - Head Head exam: Present: atraumatic, normocephalic, normal inspection - Eye Eye exam: Present: normal appearance - ENT ENT exam: Present: normal exam, normal orophraynx, mucous membranes moist - Neck Neck exam: Present: normal inspection, full ROM. Absent: tenderness, meningismus, lymphadenopathy, thyromegaly - Respiratory Respiratory exam: Present: decreased breath sounds. Absent: respiratory distress, wheezes, rales, rhonchi - Cardiovascular Cardiovascular Exam: Present: regular rate, normal rhythm, normal heart sounds - GI/Abdominal GI/Abdominal exam: Present: soft, normal bowel sounds. Absent: distended, tenderness, guarding, rebound, rigid, organomegaly, mass, bruit, pulsatile mass, hernia - Extremities Exam Extremities exam: Present: normal inspection ED Course Vital Signs 03/21/19 03/21/19 03/21/19 20:31 20:57 21:34 Temperature 98.0 F Pulse Rate 68 72 Respiratory 18 20 Rate Blood Pressure 153/63 164/70 O2 Sat by Pulse 98 100 Oximetry ED Medical Decision Making - Radiology Data Radiology results: report reviewed - Medical Decision Making Patient is 73 years old female with stage IV lung cancer with cavitary mass, hypertension, diabetes, nicotine dependence patient is status post left pleural catheter for drainage of left pleural effusion. Patient was recently discharged from the [address] Patient presented to the ER, and by her daughter stating that she is unable to drain her fluids today because she does not have the supplies that needed for drainage. She stated that she drained 400 mL yesterday. Patient is complaining of shortness of breath but no other complaint. Patient denied any fever, chest pain, nausea or vomiting. Unfortunately we are unable to find the supplies for drainage tonight. I discussed the patient was Dr. Kaur, vascular surgeon who did the left Pleurx catheter. Dr. Kaur advised to admit the patient to the hospital for drainage in the morning. I discussed the patient is Dr. Mayorga, hospitalist, who agreed to admit the patient to medical service for further management. Critical care attestation.: If time is entered above; I have spent that time in minutes in the direct care of this critically ill patient, excluding procedure time. ED Disposition Clinical Impression: Shortness of breath, Lung cancer, Pleural effusion on left Disposition: [id number] OP ADMIT IP TO THIS HOSP Is pt being admited?: Yes Condition: Stable
--- NOTE | 2019-03-21 22:58 | XRay Report ---
CHEST 1 VIEW 03/21/2019 10:34 PM INDICATION / CLINICAL INFORMATION: SOB. COMPARISON: 03/17/19 FINDINGS: SUPPORT DEVICES: Left chest tube is unchanged. HEART / MEDIASTINUM: Stable. LUNGS / PLEURA: Near complete opacification of the left hemithorax is unchanged. Interval increase in mild right lung pulmonary edema and small right effusion. No pneumothorax. ADDITIONAL FINDINGS: No significant additional findings. IMPRESSION: 1. Interval increase in right lung pulmonary edema and small right effusion. 2. Stable opacification of the left hemithorax. Signer Name: Shanna Lechuga MD Signed: 03/21/2019 10:54 PM Workstation Name: [id number]
[2019-03-21 23:37] LABS: Basophils # (Auto) 0.1 K/mm3 (0.0-0.1); Basophils % (Auto) 0.5 % (0.0-1.8); Eosinophils # (Auto) 0.3 K/mm3 (0.0-0.4); Hematocrit 27.2 % (30.3-42.9); Hemoglobin 8.8 gm/dl (10.1-14.3); Lymphocytes # (Auto) 1.3 K/mm3 (1.2-5.4); Lymphocytes % (Auto) 11.8 % (13.4-35.0); Mean Corpuscular HGB Conc 32 % (30-34); Mean Corpuscular Volume 81 fl (79-97); Monocytes # (Auto) 1.6 K/mm3 (0.0-0.8); Monocytes % (Auto) 13.8 % (0.0-7.3); Platelet Count 537 K/mm3 (140-440); Red Blood Count 3.35 M/mm3 (3.65-5.03); Red Cell Distribution Width 19.8 % (13.2-15.2)
[2019-03-22] MEDS ORDERED: ONDANSETRON 4 MG/2 ML INJ IV PRN (01:17)
[2019-03-22] MEDS ORDERED: MORPHINE 2 MG/1 ML INJ IV PRN (01:17)
[2019-03-22] MEDS ORDERED: MAGNESIUM HYDROXIDE (MOM) ORAL LIQD UDC PO PRN (01:17)
[2019-03-22] MEDS ORDERED: ACETAMINOPHEN 325 MG TAB PO PRN (01:17)
[2019-03-22 02:16] LABS: Calcium 8.2 mg/dL (8.4-10.2)
--- NOTE | 2019-03-22 03:13 | History and Physical Report ---
History of Present Illness Date of examination: 03/22/19 Date of admission: 03/21/19 23:14 Chief complaint: Shortness of breath History of present illness: 73-year-old -Mac[place] female with known history of hypertension, diabetes mellitus, coronary artery disease and stage IV lung cancer with pleural effusion status post left pleural catheter placement for pleural effusion presented to the emergency room today to have a pleural effusion drained. She was recently discharged to the longterm a few days ago but was informed that there were no supplies to have a pleural effusion drained at that facility and therefore was sent to the emergency room. She denies any chest pain, no fever or chills, no nausea vomiting, no headache or dizziness. She has had shortness of breath especially on minimal exertion. Patient is being admitted for drainage of the pleural effusion in the a.m. Past History Past Medical History: CAD (History of stent placement), COPD, diabetes, hypertension, other (History of stage IV lung cancer,) Past Surgical History: PTCA, Other (Pleurx drain placement) Social history: smoking (Former smoker) Family history: no significant family history Medications and Allergies Allergies Allergy/AdvReac Type Severity Reaction Status Date / Time ibuprofen Allergy Unknown Verified 02/18/19 23:29 Penicillins Allergy Unknown Verified 02/18/19 23:29 Home Medications Medication Instructions Recorded Confirmed Last Taken Type ALBUTEROL NEB's [Proventil 0.083% 2.5 mg IH Q3HRT PRN #100 nebu 03/16/19 03/18/19 Unknown Rx NEBS] Allopurinol [Zyloprim] 100 mg PO DAILY #30 tablet 03/16/19 03/18/19 03/17/19 10:00 Rx 100 mg Aspirin EC 325 mg PO QDAY #30 tablet 03/16/19 03/18/19 03/17/19 10:00 Rx 325 mg AtorvaSTATin [Lipitor] 40 mg PO QHS #30 tablet 03/16/19 03/18/19 03/16/19 21:00 Rx 40 mg Cilostazol [Pletal] 50 mg PO BID #60 tablet 03/16/19 03/18/19 03/17/19 10:00 Rx 50 mg Ferrous Sulfate [Feosol 325 MG tab] 325 mg PO DAILY #30 tablet 03/16/19 03/18/19 03/17/19 10:00 Rx 325 mg Folic Acid [Folvite] 1 mg PO QDAY #30 tablet 03/16/19 03/18/19 03/17/19 10:00 Rx 1 mg Furosemide [Lasix TAB] 20 mg PO QDAY #30 tablet 03/16/19 03/18/19 03/17/19 10:00 Rx 20 mg ISOSORBIDE MONOnitrate [Imdur ER] 120 mg PO QDAY #1 tablet 03/16/19 03/18/19 03/17/19 10:00 Rx 120 mg Insulin NPH/Regular [NovoLIN 70/30] 8 unit SUB-Q ACHS #300 units 03/16/19 03/18/19 Unknown Rx Insulin NPH/Regular [NovoLIN 70/30] 10 unit SUB-Q BIDDIAB units 03/16/19 03/18/19 Unknown Rx Ipratropium (Nf) [Atrovent HFA 2 puff IH Q6HR PRN #1 inha 03/16/19 03/18/19 Unknown Rx 17MCG/PUFF] Metoprolol [Lopressor TAB] 100 mg PO BID@0800,1700 #60 tablet 03/16/19 03/18/19 03/17/19 08:00 Rx 100 mg Pantoprazole [Protonix TAB] 40 mg PO QDAY #30 tablet 03/16/19 03/18/19 03/17/19 10:00 Rx 40 mg hydrALAZINE [Apresoline TAB] 25 mg PO Q8HR #90 tablet 03/16/19 03/18/19 03/17/19 10:00 Rx 25 mg hydrOXYzine HCL [Atarax] 10 mg PO Q6H PRN #30 tablet 03/16/19 03/18/19 Unknown Rx oxyCODONE /ACETAMINOPHEN [Percocet 1 tab PO Q6H PRN #8 tablet 03/16/19 03/18/19 Unknown Rx 5/325 mg] Apixaban [Eliquis] 5 mg PO BID #30 tablet 03/19/19 Unknown Rx Active Meds: Active Medications Acetaminophen (Tylenol) 650 mg PO Q4H PRN PRN Reason: Pain MILD(1-3)/Fever >100.5/BRENNER Magnesium Hydroxide (Milk Of Magnesia) 30 ml PO Q4H PRN PRN Reason: Constipation Morphine Sulfate (Morphine) 2 mg IV Q4H PRN PRN Reason: Pain, Moderate (4-6) Ondansetron HCl (Zofran) 4 mg IV Q8H PRN PRN Reason: Nausea And Vomiting Sodium Chloride (Sodium Chloride Flush Syringe 10 Ml) 10 ml IV BID MAYLIN Sodium Chloride (Sodium Chloride Flush Syringe 10 Ml) 10 ml IV PRN PRN PRN Reason: LINE FLUSH Review of Systems Respiratory: shortness of breath Exam - Constitutional Vitals: Temp Pulse Resp BP Pulse Ox 98.9 F 81 20 187/72 96 03/22/19 01:58 03/22/19 01:58 03/22/19 01:58 03/22/19 01:58 03/22/19 01:58 General appearance: Present: no acute distress, well-nourished - EENT Eyes: Present: PERRL, EOM intact ENT: hearing intact, clear oral mucosa, dentition normal - Respiratory Respiratory effort: normal Respiratory: right: rales, left: diminished - Cardiovascular Rhythm: regular Heart Sounds: Present: S1 & S2 - Extremities Extremities: no ischemia, pulses intact, Full ROM Extremity abnormal: edema (1+ bilateral lower extremity edema) Peripheral Pulses: within normal limits - Abdominal General gastrointestinal: Present: soft, non-tender, non-distended, normal bowel sounds - Integumentary Integumentary: Present: clear, warm, dry - Musculoskeletal Musculoskeletal: strength equal bilaterally - Psychiatric Psychiatric: appropriate mood/affect, intact judgment & insight, cooperative - Neurologic Neurologic: CNII-XII intact, moves all extremities Results - Labs CBC & Chem 7: 03/21/19 23:10 03/21/19 23:10 Labs: Abnormal lab results 03/21/19 03/21/19 Range/Units 23:10 23:10 WBC 11.2 H (4.5-11.0) K/mm3 RBC 3.35 L (3.65-5.03) M/mm3 Hgb 8.8 L (10.1-14.3) gm/dl Hct 27.2 L (30.3-42.9) % MCH 26 L (28-32) pg RDW 19.8 H (13.2-15.2) % Plt Count 537 H (140-440) K/mm3 Lymph % (Auto) 11.8 L (13.4-35.0) % [place] % (Auto) 13.8 H (0.0-7.3) % [place] # 1.6 H (0.0-0.8) K/mm3 Seg Neutrophils % 70.9 H (40.0-70.0) % Seg Neutrophils # 7.9 H (1.8-7.7) K/mm3 Sodium 136 L (137-145) mmol/L BUN 36 H (7-17) mg/dL Glucose 124 H (65-100) mg/dL Calcium 8.2 L (8.4-10.2) mg/dL Assessment and Plan - Patient Problems (1) Pleural effusion on left Current Visit: Yes Status: Acute Plan to address problem: Patient recently had left pleural catheter placement. She will need pleural effusion drained today. Vascular surgeon Dr. ervin has been consulted by the ER physician (2) Lung cancer Current Visit: Yes Status: Acute Plan to address problem: Patient has known history of stage IV lung cancer with cavitary mass. (3) Renal insufficiency Current Visit: No Status: Acute Plan to address problem: We will monitor BUN and creatinine. (4) HTN (hypertension) Current Visit: No Status: Chronic Qualifiers: Hypertension type: essential hypertension Qualified Code(s): I10 - Essential (primary) hypertension Plan to address problem: Continue routine home medications once updated and reconciled. We will monitor vital signs closely (5) DVT prophylaxis Current Visit: No Status: Acute Plan to address problem: Patient placed on sequential compression device. (6) Full code status Current Visit: No Status: Acute
--- NOTE | 2019-03-22 11:16 | Consultation ---
History of Present Illness - Reason for Consult Consult date: 03/22/19 Pleural effusion - History of Present Illness 73-year-old -[place] female with known history of hypertension, diabetes mellitus, coronary artery disease and stage IV lung cancer with pleural effusion status post left pleural catheter placement for pleural effusion presented to the emergency room today to have a pleural effusion drained. She was recently discharged to the alf a few days ago but was informed that there were no supplies to have a pleural effusion drained at that facility and therefore w as sent to the emergency room. She denies any chest pain, no fever or chills, no nausea vomiting, no headache or dizziness. She has had shortness of breath especially on minimal exertion. Patient is being admitted for drainage of the pleural effusion in the a.m. Evaluated pleural catheter. Noted entry site has a small amount of partial dehissence with fibrin. This is likely from pulling the patient or from inadequate fluid drainage with resulting leakage through the entry site. Recommend betadine application, doxycycline 100 mg po BID. Past History Past Medical History: CAD (History of stent placement), COPD, diabetes, hypertension, other (History of stage IV lung cancer,) Past Surgical History: PTCA, Other (Pleurx drain placement) Social history: smoking (Former smoker) Family history: no significant family history Medications and Allergies Allergies Allergy/AdvReac Type Severity Reaction Status Date / Time ibuprofen Allergy Unknown Verified 02/18/19 23:29 Penicillins Allergy Unknown Verified 02/18/19 23:29 Home Medications Medication Instructions Recorded Confirmed Last Taken Type ALBUTEROL NEB's [Proventil 0.083% 2.5 mg IH Q3HRT PRN #100 nebu 03/16/19 03/22/19 Unknown Rx NEBS] Allopurinol [Zyloprim] 100 mg PO DAILY #30 tablet 03/16/19 03/22/19 03/17/19 10:00 Rx 100 mg Aspirin EC 325 mg PO QDAY #30 tablet 03/16/19 03/22/19 03/17/19 10:00 Rx 325 mg AtorvaSTATin [Lipitor] 40 mg PO QHS #30 tablet 03/16/19 03/22/19 03/16/19 21:00 Rx 40 mg Cilostazol [Pletal] 50 mg PO BID #60 tablet 03/16/19 03/22/19 03/17/19 10:00 Rx 50 mg Ferrous Sulfate [Feosol 325 MG tab] 325 mg PO DAILY #30 tablet 03/16/19 03/22/19 03/17/19 10:00 Rx 325 mg Folic Acid [Folvite] 1 mg PO QDAY #30 tablet 03/16/19 03/22/19 03/17/19 10:00 Rx 1 mg Furosemide [Lasix TAB] 20 mg PO QDAY #30 tablet 03/16/19 03/22/19 03/17/19 10:00 Rx 20 mg ISOSORBIDE MONOnitrate [Imdur ER] 120 mg PO QDAY #1 tablet 03/16/19 03/22/19 03/17/19 10:00 Rx 120 mg Insulin NPH/Regular [NovoLIN 70/30] 8 unit SUB-Q ACHS #300 units 03/16/19 03/22/19 Unknown Rx Insulin NPH/Regular [NovoLIN 70/30] 10 unit SUB-Q BIDDIAB units 03/16/19 03/22/19 Unknown Rx Ipratropium (Nf) [Atrovent HFA 2 puff IH Q6HR PRN #1 inha 03/16/19 03/22/19 Unknown Rx 17MCG/PUFF] Metoprolol [Lopressor TAB] 100 mg PO BID@0800,1700 #60 tablet 03/16/19 03/22/19 03/17/19 08:00 Rx 100 mg Pantoprazole [Protonix TAB] 40 mg PO QDAY #30 tablet 03/16/19 03/22/19 03/17/19 10:00 Rx 40 mg hydrALAZINE [Apresoline TAB] 25 mg PO Q8HR #90 tablet 03/16/19 03/22/19 03/17/19 10:00 Rx 25 mg hydrOXYzine HCL [Atarax] 10 mg PO Q6H PRN #30 tablet 03/16/19 03/22/19 Unknown Rx oxyCODONE /ACETAMINOPHEN [Percocet 1 tab PO Q6H PRN #8 tablet 03/16/19 03/22/19 Unknown Rx 5/325 mg] Apixaban [Eliquis] 5 mg PO BID #30 tablet 03/19/19 03/22/19 Unknown Rx Active Meds: Active Medications Acetaminophen (Tylenol) 650 mg PO Q4H PRN PRN Reason: Pain MILD(1-3)/Fever >100.5/[place]NER Doxycycline Hyclate (Vibramycin) 100 mg PO BID [facility] Stop: 03/31/19 22:01 Magnesium Hydroxide (Milk Of Magnesia) 30 ml PO Q4H PRN PRN Reason: Constipation Morphine Sulfate (Morphine) 2 mg IV Q4H PRN PRN Reason: Pain, Moderate (4-6) Ondansetron HCl (Zofran) 4 mg IV Q8H PRN PRN Reason: Nausea And Vomiting Sodium Chloride (Sodium Chloride Flush Syringe 10 Ml) 10 ml IV BID [facility] Last Admin: 03/22/19 09:14 Dose: 10 ml Documented by: Sodium Chloride (Sodium Chloride Flush Syringe 10 Ml) 10 ml IV PRN PRN PRN Reason: LINE FLUSH Review of Systems All systems: negative (see HPI) Exam - Constitutional Vitals: Temp Pulse Resp BP Pulse Ox 98.4 F 82 20 155/67 99 03/22/19 07:23 03/22/19 07:23 03/22/19 07:23 03/22/19 07:23 03/22/19 07:35 General appearance: Present: no acute distress - EENT Eyes: Present: EOM intact ENT: hearing intact - Respiratory Respiratory effort: labored - Psychiatric Psychiatric: cooperative Results - Labs CBC & Chem 7: 03/21/19 23:10 03/21/19 23:10 Labs: Abnormal lab results 03/21/19 03/21/19 03/22/19 Range/Units 23:10 23:10 07:33 WBC 11.2 H (4.5-11.0) K/mm3 RBC 3.35 L (3.65-5.03) M/mm3 Hgb 8.8 L (10.1-14.3) gm/dl Hct 27.2 L (30.3-42.9) % MCH 26 L (28-32) pg RDW 19.8 H (13.2-15.2) % Plt Count 537 H (140-440) K/mm3 Lymph % (Auto) 11.8 L (13.4-35.0) % [place] % (Auto) 13.8 H (0.0-7.3) % [place] # 1.6 H (0.0-0.8) K/mm3 Seg Neutrophils % 70.9 H (40.0-70.0) % Seg Neutrophils # 7.9 H (1.8-7.7) K/mm3 Sodium 136 L (137-145) mmol/L BUN 36 H (7-17) mg/dL Glucose 124 H (65-100) mg/dL POC Glucose 119 H (70-105) Calcium 8.2 L (8.4-10.2) mg/dL Assessment and Plan 73 year old female with advanced cancer and pleural catheter. Pleural catheter bags sent to bedside. Daughter drained. Evaluated pleural catheter. Noted entry site has a small amount of partial dehissence with fibrin bridging. This is likely from pulling the patient or from inadequate fluid drainage with resulting attempted leakage through the entry site. Recommend daily drainage. Recommend betadine application, doxycycline 100 mg po BID x 10 days. Overall patient is probably a hospice patient. It is becoming clearly unrealistic to think otherwise given her recent admissions. Attempting to care f or her without the resources of hospice will make readmissions both frequent and her remaining quality of life poor.
[2019-03-22] MEDS ORDERED: DOXYCYCLINE 100 MG CAPSULE PO SCH (12:00)
[2019-03-22 13:53] VITALS: BP 173/68
--- NOTE | 2019-03-22 16:51 | Discharge Summary ---
Providers - Providers Date of Admission: 03/21/19 23:14 Date of discharge: 03/22/19 Attending physician: CAMERON MARIA 03/21/19 22:46 Consult to Physician [CONS] Stat Comment: Consulting Provider: CAROL ACUNA Physician Instructions: Reason For Exam: large left pleural effusion 03/22/19 14:48 Physical Therapy Evaluation and Treat [CONS] Routine Comment: Reason For Exam: Weakness Primary care physician: NURSE HEAD Hospitalization Condition: Stable Hospital course: 73-year-old -[place] female with known history of hypertension, diabetes mellitus, coronary artery disease and stage IV lung cancer with pleural effusion status post left pleural catheter placement for pleural effusion presented to the emergency room today to have a pleural effusion drained. She was recently discharged to the correction a few days ago but was informed that there were no supplies to have a pleural effusion drained at that facility and therefore was sent to the emergency room. She denies any chest pain, no fever or chills, no nausea vomiting, no headache or dizziness. She has had shortness of breath especially on minimal exertion. Patient is being admitted for drainage of the pleural effusion in the a.m. 73 year old female with advanced cancer and pleural catheter. Pleural catheter bags sent to bedside. Daughter drained. Evaluated pleural catheter. Noted entry site has a small amount of partial dehissence with fibrin bridging. This is likely from pulling the patient or from inadequate fluid drainage with resulting attempted leakage through the entry site. Recommend daily drainage. Recommend betadine application, doxycycline 100 mg po BID x 10 days. Overall patient is probably a hospice patient. It is becoming clearly unrealistic to think otherwise given her recent admissions. Attempting to care for her without the resources of hospice will make readmissions both frequent and her remaining quality of life poor. Disposition: DC/TX-70 ANOTHER TYPE [facility] Core Measure Documentation - Palliative Care Palliative Care/ Comfort Measures: Not Applicable - Core Measures Any of the following diagnoses?: none Exam - Constitutional Vitals: Temp Pulse Resp BP Pulse Ox 98.7 F 89 20 173/68 98 03/22/19 12:21 03/22/19 12:21 03/22/19 14:53 03/22/19 12:21 03/22/19 14:53 General appearance: Present: no acute distress, well-nourished - EENT Eyes: Present: PERRL ENT: hearing intact, clear oral mucosa - Neck Neck: Present: supple, normal ROM - Respiratory Respiratory effort: normal Respiratory: bilateral: CTA - Cardiovascular Heart rate: 78 Rhythm: regular Heart Sounds: Present: S1 & S2. Absent: rub, click - Extremities Extremities: no ischemia, pulses intact, pulses symmetrical, No edema Peripheral Pulses: within normal limits - Abdominal General gastrointestinal: Present: soft, non-tender, non-distended, normal bowel sounds Female genitourinary: Present: normal - Integumentary Integumentary: Present: clear, warm, dry - Musculoskeletal Musculoskeletal: gait normal, strength equal bilaterally - Psychiatric Psychiatric: appropriate mood/affect, intact judgment & insight - Neurologic Neurologic: CNII-XII intact, moves all extremities - Allied Health Allied health notes reviewed: nursing, case management Plan Activity: no restrictions Diet: regular Follow up with: PRIMARY CARE, [Primary Care Provider] - 7 Days
== END 2019-03-22 19:30 | disposition other institution (70) ==
LOC: ED 20:03 → 2B-ACE 23:14
PROVIDERS: ADMIT Internal Medicine Geriatric Medicine; ATTEND Internal Medicine
DX: J90 Pleural effusion, not elsewhere classified (principal); I13.0 Hypertensive heart and chronic kidney disease with heart failure and stage 1 through stage 4 chronic kidney disease, or unspecified chronic kidney disease; I50.9 Heart failure, unspecified; N18.9 Chronic kidney disease, unspecified; I25.10 Atherosclerotic heart disease of native coronary artery without angina pectoris; E11.9 Type 2 diabetes mellitus without complications; J44.9 Chronic obstructive pulmonary disease, unspecified; Z87.891 Personal history of nicotine dependence; Z79.82 Long term (current) use of aspirin; Z79.4 Long term (current) use of insulin; Z85.118 Personal history of other malignant neoplasm of bronchus and lung; Z95.1 Presence of aortocoronary bypass graft
CPT/HCPCS: 36415; 71045; 80048; 82962; 85025; 94760; 99284; G0378

== ENCOUNTER 2019-04-17 17:07 | Inpatient (IN) | payer MEDICARE ==
[2019-04-17 18:41] LABS: Amorphous Crystals,Urine Few; Bilirubin,Urine NEG (Negative); Blood,Urine NEG (Negative); Color,Urine Yellow (Yellow); Mucus,Urine FEW /HPF; Protein,Urine <15 mg/dL mg/dL (Negative); Urobilinogen,Urine < 2.0 mg/dL (<2.0)
[2019-04-17 18:45] LABS: Hematocrit 28.2 % (30.3-42.9); Mean Corpuscular HGB Conc 32 % (30-34); Mean Corpuscular Volume 80 fl (79-97); Platelet Count 470 K/mm3 (140-440); Red Blood Count 3.53 M/mm3 (3.65-5.03)
[2019-04-17 18:51] LABS: Red Cell Distribution Width 20.8 % (13.2-15.2)
--- NOTE | 2019-04-17 19:05 | XRay Report ---
CHEST 1 VIEW 04/17/2019 6:35 PM INDICATION / CLINICAL INFORMATION: MAIN: Altered mental status X 11 AM TODAY. COMPARISON: Chest x-ray 04/01/2019 FINDINGS: SUPPORT DEVICES: New right internal jugular Port-A-Cath has tip in SVC. Left chest tube is unchanged. HEART / MEDIASTINUM: No significant abnormality. LUNGS / PLEURA: Moderate left pleural parenchymal disease with reexpansion of the left lower lobe sin ce prior study. Mild diffuse interstitial edema and small right pleural effusion are unchanged. No pn eumothorax. ADDITIONAL FINDINGS: No significant additional findings. IMPRESSION: 1. Improving left-sided pleural-parenchymal disease. No pneumothorax Signer Name: Shantanu Pierre MD Signed: 04/17/2019 7:00 PM Workstation Name: [id number]
[2019-04-17 19:11] LABS: Albumin 1.8 g/dL (3.9-5); Calcium 8.1 mg/dL (8.4-10.2)
[2019-04-17] MEDS ORDERED: PHENobarbitaL 130 MG/ML VIAL ONE (19:31)
--- NOTE | 2019-04-17 19:40 | Emergency Department Report ---
HPI - General Chief Complaint: Altered Mental Status Time Seen by Provider: 04/17/19 17:44 - HPI HPI: 73-year-old -[place] female presents to the emergency department via EMS from [facility] long[facility]term with the complaint of altered mental status. The patient's daughter and granddaughter currently at bedside and say that she had a normal mental status as of yesterday when they went to a doctor's appointment. Normally she is AAO 3. Currently the patient is AAO 2 and slow to respond. She has a past mental history of CHF, COPD, diabetes, hypertension, CAD, coronary artery disease with 3 stents, paroxysmal A. fib, squamous carcinoma of the lungs. ED Past Medical Hx - Past Medical History Hx Hypertension: Yes Hx Congestive Heart Failure: Yes Hx Diabetes: Yes Hx Liver Disease: No Hx Renal Disease: No Hx COPD: Yes Additional medical history: Renal failure but not on dialysis - Surgical History Hx Coronary Stent: Yes (3 stents) Additional Surgical History: stent placement, pleur x drain - Social History Smoking Status: Never Smoker - Medications Home Medications: Home Medications Medication Instructions Recorded Confirmed Last Taken Type ALBUTEROL NEB's [Proventil 0.083% 2.5 mg IH Q3HRT PRN #100 nebu 03/16/19 03/30/19 Unknown Rx NEBS] Aspirin EC 325 mg PO QDAY #30 tablet 03/16/19 03/30/19 03/17/19 10:00 Rx 325 mg Cilostazol [Pletal] 50 mg PO BID #60 tablet 03/16/19 03/30/19 03/17/19 10:00 Rx 50 mg Ferrous Sulfate [Feosol 325 MG tab] 325 mg PO DAILY #30 tablet 03/16/19 03/30/19 03/17/19 10:00 Rx 325 mg Folic Acid [Folvite] 1 mg PO QDAY #30 tablet 03/16/19 03/30/19 03/17/19 10:00 Rx 1 mg ISOSORBIDE MONOnitrate [Imdur ER] 120 mg PO QDAY #1 tablet 03/16/19 03/30/19 03/17/19 10:00 Rx 120 mg Insulin NPH/Regular [NovoLIN 70/30] 10 unit SUB-Q BIDDIAB units 03/16/19 03/30/19 Unknown Rx Ipratropium (Nf) [Atrovent HFA 2 puff IH Q6HR PRN #1 inha 03/16/19 03/30/19 Unknown Rx 17MCG/PUFF] Pantoprazole [Protonix TAB] 40 mg PO QDAY #30 tablet 03/16/19 03/30/19 03/17/19 10:00 Rx 40 mg allopurinoL [Zyloprim] 100 mg PO DAILY #30 tablet 03/16/19 03/30/19 03/17/19 10:00 Rx 100 mg hydrALAZINE [Apresoline TAB] 25 mg PO Q8HR #90 tablet 03/16/19 03/30/19 03/17/19 10:00 Rx 25 mg hydrOXYzine HCL [Atarax] 10 mg PO Q6H PRN #30 tablet 03/16/19 03/30/19 Unknown Rx oxyCODONE /ACETAMINOPHEN [Percocet 1 tab PO Q6H PRN #8 tablet 03/16/19 03/30/19 Unknown Rx 5/325 mg] Apixaban [Eliquis] 5 mg PO BID #30 tablet 03/19/19 03/30/19 Unknown Rx Insulin NPH/Regular [NovoLIN 70/30] See Protocol SUB-Q ACHS #300 units 04/05/19 03/30/19 Unknown Rx Metoprolol [Lopressor TAB] 50 mg PO BIDDIAB tablet 04/05/19 Unknown Rx ED Review of Systems ROS: Stated complaint: AMS Other details as noted in HPI Comment: Unobtainable due to pts medical conditions Neurological: confusion Physical Exam - Physical Exam Vital Signs: Vital Signs 04/17/19 04/17/19 17:35 18:37 Temperature 99.6 F Pulse Rate 88 91 H Respiratory 29 H 25 H Rate Blood Pressure 166/58 176/45 [Left] O2 Sat by Pulse 94 94 Oximetry Physical Exam: GENERAL: The patient is well-developed well-nourished. HEENT: Normocephalic. Atraumatic. Patient has moist mucous membranes. EYES: Extraocular motions are intact. NECK: Supple. Trachea is midline. CHEST/LUNGS: Clear to auscultation. There is no respiratory distress noted. HEART/CARDIOVASCULAR: Regular. There is no tachycardia. There is no murmur. ABDOMEN: Abdomen is soft, nontender. Patient has normal bowel sounds. There is no abdominal distention. SKIN:Skin is warm and dry. . NEURO: Patient is awake and cooperative. She is able to answer questions appropriately, AAO x 3, but slow to respond. CN II - XII grossly intact. MUSCULOSKELETAL: There is no tenderness or deformity. There is no evidence of acute injury. ED Course Vital Signs 04/17/19 04/17/19 17:35 18:37 Temperature 99.6 F Pulse Rate 88 91 H Respiratory 29 H 25 H Rate Blood Pressure 166/58 176/45 [Left] O2 Sat by Pulse 94 94 Oximetry ED Medical Decision Making - Lab Data Result diagrams: 04/17/19 18:31 04/17/19 18:31 - EKG Data -: EKG Interpreted by Me EKG shows normal: sinus rhythm, axis, intervals, QRS complexes (low-voltage), ST-T waves (T-wave inversions to the lateral leads) Rate: normal - EKG Data When compared to previous EKG there are: previous EKG unavailable Interpretation: other (sinus rhythm, low voltage QRS, T-wave inversions to the lateral leads) - Radiology Data Radiology results: report reviewed, image reviewed interpreted by me: Chest x-ray does not show any obvious pneumonia, pneumothorax, focal consolidation, or any other acute process. CT HEAD WITHOUT CONTRAST INDICATION / CLINICAL INFORMATION: Altered mental status. TECHNIQUE: All CT scans at this location are performed using CT dose reduction for ALARA by means of automated exposure control. COMPARISON: Head CT 12/24/2018 FINDINGS: HEMORRHAGE: None. EXTRA-AXIAL SPACES: Normal in size and morphology for the patient's age. VENTRICULAR SYSTEM: Normal in size and morphology for the patient's age. CEREBRAL PARENCHYMA: No significant abnormality. No acute territorial infarct. Mild cerebral atrophy, unchanged Mild periventricular white matter hypoattenuation, unchanged characteristic for microangiopathy MIDLINE SHIFT OR HERNIATION: None. CEREBELLUM / BRAINSTEM: No significant abnormality. ORBITS: Normal as visualized. SOFT TISSUES of HEAD: No significant abnormality. CALVARIUM: No significant abnormality. PARANASAL SINUSES / MASTOID AIR CELLS: Normal as visualized. ADDITIONAL FINDINGS: None. IMPRESSION: 1. No acute intracranial abnormality. 2. Mild cerebral atrophy and microangiopathy, unchanged. - Medical Decision Making This patient presented from her long-term facility with some acute altered mental status since last night or this morning. CT of the head without contrast does not show any bleed, shift, mass, ischemia, or any other acute process. The patient's labs show a leukocytosis, some anemia, chronic kidney disease, mild hyperkalemia. No urinary tract infection. Patient was given a dose of Kayexalate. EKG did not show any signs of ST elevation WA. Patient will be admitted to the hospital for further evaluation and treatment was accepted for admission by the hospitalist, Tierra. - Differential Diagnosis CVA, TIA, UTI, Hypoglycemia Critical Care Time: No Critical care attestation.: If time is entered above; I have spent that time in minutes in the direct care of this critically ill patient, excluding procedure time. ED Disposition Clinical Impression: Hyperkalemia Altered mental status Qualifiers: Altered mental status type: unspecified Qualified Code(s): R41.82 - Altered mental status, unspecified CKD (chronic kidney disease) Qualifiers: Chronic kidney disease stage: unspecified stage Qualified Code(s): N18.9 - Chronic kidney disease, unspecified Anemia Qualifiers: Anemia type: unspecified type Qualified Code(s): D64.9 - Anemia, unspecified Hypertension Qualifiers: Hypertension type: essential hypertension Qualified Code(s): I10 - Essential (primary) hypertension Disposition: DC-09 OP ADMIT IP TO THIS HOSP Is pt being admited?: Yes Condition: Fair Time of Disposition: 23:39
[2019-04-17] MEDS ORDERED: SODIUM POLYSTYRENE 15 GM/60 ML ORAL LIQD PO ONE (19:45)
--- NOTE | 2019-04-17 19:58 | Cat Scan Report ---
CT HEAD WITHOUT CONTRAST INDICATION / CLINICAL INFORMATION: Altered mental status. TECHNIQUE: All CT scans at this location are performed using CT dose reduction for ALARA by means of automated e xposure control. COMPARISON: Head CT 12/24/2018 FINDINGS: HEMORRHAGE: None. EXTRA-AXIAL SPACES: Normal in size and morphology for the patient's age. VENTRICULAR SYSTEM: Normal in size and morphology for the patient's age. CEREBRAL PARENCHYMA: No significant abnormality. No acute territorial infarct. Mild cerebral atrophy, unchanged Mild periventricular white matter hypoattenuation, unchanged characteristic for microangio kaci MIDLINE SHIFT OR HERNIATION: None. CEREBELLUM / BRAINSTEM: No significant abnormality. ORBITS: Normal as visualized. SOFT TISSUES of HEAD: No significant abnormality. CALVARIUM: No significant abnormality. PARANASAL SINUSES / MASTOID AIR CELLS: Normal as visualized. ADDITIONAL FINDINGS: None. IMPRESSION: 1. No acute intracranial abnormality. 2. Mild cerebral atrophy and microangiopathy, unchanged. Signer Name: Shantanu Pierre MD Signed: 04/17/2019 7:54 PM Workstation Name: [id number]
[2019-04-17 20:00] LABS: Anisocytosis 1+; Basophils % (Manual) 0 % (0.0-1.8); Hypochromasia 1+; Target Cells 1+; Total Cells Counted 100
[2019-04-17 20:01] LABS: Platelet Estimate Consistent w Auto; Schistocytes Few
[2019-04-17] MEDS ORDERED: MAGNESIUM HYDROXIDE (MOM) ORAL LIQD UDC PO PRN (23:11)
[2019-04-17] MEDS ORDERED: ONDANSETRON 4 MG/2 ML INJ IV PRN (23:11)
[2019-04-17] MEDS ORDERED: DEXTROSE 50% IN WATER (25GM) 50 ML SYRINGE IV PRN (23:11)
[2019-04-17] MEDS ORDERED: MORPHINE 2 MG/1 ML INJ IV PRN (23:11)
[2019-04-18] MEDS: cefTRIAXone/NS 1 GM/50 ML 1 GM/50 ML BAG IV SCH ×2 (00:49→09:04)
--- NOTE | 2019-04-18 04:51 | History and Physical Report ---
History of Present Illness Date of examination: 04/17/19 Date of admission: 04/17/19 22:09 Chief complaint: Altered mental status History of present illness: 73-year-old -Citizen Of [place] female with known history of for squamous cell lung cancer who [facility] was brought into the emergency room today because of changes in mental status. Changes in mental status was said to have started sometime this afternoon. Daughter and granddaughter who were by the bedside indicates that patient is normally alert and oriented x3 and was quite a lot earlier in the day. There has been been no history of fever or chills, no chest pain or shortness of breath, no nausea vomiting and no diarrhea. No hematuria or dysuria. Patient has a Pleurx drain in place for malignant pleural effusion. Upon work-up in the emergency room, her potassium was found to be 5.6 and patient has some Kayexalate. She was also found to have a leukocytosis of 18.9. Past History Past Medical History: CAD, COPD, diabetes, heart failure, hypertension, renal failure Past Surgical History: PTCA, Other (Uric strain placement) Social history: no significant social history Family history: no significant family history Medications and Allergies Allergies Allergy/AdvReac Type Severity Reaction Status Date / Time ibuprofen Allergy Unknown Verified 02/18/19 23:29 Penicillins Allergy Unknown Verified 02/18/19 23:29 Home Medications Medication Instructions Recorded Confirmed Last Taken Type ALBUTEROL NEB's [Proventil 0.083% 2.5 mg IH Q3HRT PRN #100 nebu 03/16/19 04/17/19 Unknown Rx NEBS] Aspirin EC 325 mg PO QDAY #30 tablet 03/16/19 04/17/19 03/17/19 10:00 Rx 325 mg Cilostazol [Pletal] 50 mg PO BID #60 tablet 03/16/19 04/17/19 03/17/19 10:00 Rx 50 mg Ferrous Sulfate [Feosol 325 MG tab] 325 mg PO DAILY #30 tablet 03/16/19 04/17/19 03/17/19 10:00 Rx 325 mg Folic Acid [Folvite] 1 mg PO QDAY #30 tablet 03/16/19 04/17/19 03/17/19 10:00 Rx 1 mg ISOSORBIDE MONOnitrate [Imdur ER] 120 mg PO QDAY #1 tablet 03/16/19 04/17/19 03/17/19 10:00 Rx 120 mg Insulin NPH/Regular [NovoLIN 70/30] 10 unit SUB-Q BIDDIAB units 03/16/19 Unknown Rx Ipratropium (Nf) [Atrovent HFA 2 puff IH Q6HR PRN #1 inha 03/16/19 04/17/19 Unkn own Rx 17MCG/PUFF] Pantoprazole [Protonix TAB] 40 mg PO QDAY #30 tablet 03/16/19 04/17/19 03/17/19 10:00 Rx 40 mg allopurinoL [Zyloprim] 100 mg PO DAILY #30 tablet 03/16/19 04/17/19 03/17/19 10:00 Rx 100 mg hydrALAZINE [Apresoline TAB] 25 mg PO Q8HR #90 tablet 03/16/19 04/17/19 03/17/19 10:00 Rx 25 mg hydrOXYzine HCL [Atarax] 10 mg PO Q6H PRN #30 tablet 03/16/19 04/17/19 Unknown Rx oxyCODONE /ACETAMINOPHEN [Percocet 1 tab PO Q6H PRN #8 tablet 03/16/19 04/17/19 Unknown Rx 5/325 mg] Apixaban [Eliquis] 5 mg PO BID #30 tablet 03/19/19 04/17/19 Unknown Rx Insulin NPH/Regular [NovoLIN 70/30] See Protocol SUB-Q ACHS #300 units 04/05/19 04/17/19 Unknown Rx Metoprolol [Lopressor TAB] 50 mg PO BIDDIAB tablet 04/05/19 04/17/19 Unknown Rx Active Meds: Active Medications Acetaminophen (Tylenol) 650 mg PO Q4H PRN PRN Reason: Pain MILD(1-3)/Fever >100.5/BRENNER Dextrose (D50w (25gm) Syringe) 0 ml IV Q30MIN PRN; Protocol PRN Reason: Hypoglycemia Ceftriaxone Sodium (Rocephin/Ns 1 Gm/50 Ml) 1 gm in 50 mls @ 100 mls/hr IV Q24H R MAYLIN; Protocol Last Admin: 04/18/19 00:49 Dose: 100 mls/hr Documented by: Insulin Human Lispro (Humalog) 0 unit SUB-Q ACHS MAYLIN; Protocol Magnesium Hydroxide (Milk Of Magnesia) 30 ml PO Q4H PRN PRN Reason: Constipation Morphine Sulfate (Morphine) 2 mg IV Q4H PRN PRN Reason: Pain, Moderate (4-6) Ondansetron HCl (Zofran) 4 mg IV Q8H PRN PRN Reason: Nausea And Vomiting Sodium Chloride (Sodium Chloride Flush Syringe 10 Ml) 10 ml IV BID MAYLIN Sodium Chloride (Sodium Chloride Flush Syringe 10 Ml) 10 ml IV PRN PRN PRN Reason: LINE FLUSH Review of Systems Constitutional: no fever, no chills, no poor appetite Cardiovascular: no chest pain, no orthopnea, no palpitations, no dyspnea on exertion Respiratory: no cough, no hemoptysis Gastrointestinal: no nausea, no vomiting, no diarrhea Genitourinary Female: hematuria, no dysuria, no urinary frequency Musculoskeletal: no neck stiffness Neurological: change in mentation, no seizures, no syncope Psychiatric: no anxiety, no hallucinations Exam - Constitutional Vitals: Temp Pulse Resp BP Pulse Ox 97.7 F 91 H 18 155/57 98 04/18/19 00:24 04/18/19 00:24 04/18/19 02:51 04/18/19 00:24 04/18/19 02:51 General appearance: Present: no acute distress, well-nourished - EENT Eyes: Present: PERRL, EOM intact ENT: hearing intact, clear oral mucosa, dentition normal - Neck Neck: Present: supple, normal ROM - Respiratory Respiratory effort: other (Port on right anterior chest wall) Respiratory: bilateral: diminished - Cardiovascular Rhythm: regular Heart Sounds: Present: S1 & S2, systolic murmur - Extremities Extremities: no ischemia, No edema, Full ROM Peripheral Pulses: within normal limits - Abdominal General gastrointestinal: Present: soft, non-tender, non-distended - Integumentary Integumentary: Present: clear, warm, dry - Musculoskeletal Musculoskeletal: strength equal bilaterally - Psychiatric Psychiatric: appropriate mood/affect, cooperative - Neurologic Neurologic: CNII-XII intact, moves all extremities, other (Appears slightly confused) Results - Labs CBC & Chem 7: 04/17/19 18:31 04/17/19 18:31 Labs: Abnormal lab results 04/17/19 04/17/19 04/17/19 Range/Units 18:31 18:31 18:31 WBC 18.9 H (4.5-11.0) K/mm3 RBC 3.53 L (3.65-5.03) M/mm3 Hgb 9.0 L (10.1-14.3) gm/dl Hct 28.2 L (30.3-42.9) % MCH 26 L (28-32) pg RDW 20.8 H (13.2-15.2) % Plt Count 470 H (140-440) K/mm3 Seg Neuts % (Manual) 88.0 H (40.0-70.0) % Lymphocytes % (Manual) 4.0 L (13.4-35.0) % Seg Neutrophils # Man 16.6 H (1.8-7.7) K/mm3 Lymphocytes # (Manual) 0.8 L (1.2-5.4) K/mm3 Monocytes # (Manual) 0.9 H (0.0-0.8) K/mm3 Eosinophils # (Manual) 0.6 H (0.0-0.4) K/mm3 Sodium 134 L (137-145) mmol/L Potassium 5.6 H (3.6-5.0) mmol/L Carbon Dioxide 19 L (22-30) mmol/L BUN 45 H (7-17) mg/dL Creatinine 1.3 H (0.7-1.2) mg/dL Calcium 8.1 L (8.4-10.2) mg/dL Albumin 1.8 L (3.9-5) g/dL TSH 5.540 H (0.270-4.200) mlU/mL Assessment and Plan - Patient Problems (1) Altered mental status Current Visit: Yes Status: Acute Qualifiers: Altered mental status type: unspecified Qualified Code(s): R41.82 - Altered mental status, unspecified Plan to address problem: Etiology is unclear. Will monitor mental status. She has an elevated white count and slightly elevated potassium levels on her work-up. She has received some Kayexalate in the ER. We will start empiric IV antibiotics for her significant leukocytosis. We will consider checking MRI of the brain for metastatic lesions in view of a history of lung malignancy. (2) Hyperkalemia Current Visit: Yes Status: Acute Plan to address problem: Patient has had dose of Kayexalate. Will monitor chemistry and also monitor EKG. (3) Anemia Current Visit: Yes Status: Chronic Qualifiers: Anemia type: unspecified type Qualified Code(s): D64.9 - Anemia, unspecified Plan to address problem: Probably chronic. Will monitor CBC. (4) CKD (chronic kidney disease) Current Visit: Yes Status: Chronic Qualifiers: Chronic kidney disease stage: unspecified stage Qualified Code(s): N18.9 - Chronic kidney disease, unspecified Plan to address problem: We will monitor BUN and creatinine. (5) HTN (hypertension) Current Visit: Yes Status: Chronic Qualifiers: Hypertension type: essential hypertension Qualified Code(s): I10 - Essochoa tial (primary) hypertension Plan to address problem: We will resume routine home medications and monitor vital signs closely. (6) DVT prophylaxis Current Visit: No Status: Acute Plan to address problem: Patient is currently on anticoagulation. (7) Full code status Current Visit: No Status: Acute
[2019-04-18] MEDS ORDERED: NON-FORMULARY EACH (Ipratropium (Nf) 2 PUFF) IH PRN (05:15)
[2019-04-18] MEDS ORDERED: hydrOXYzine HCL 10 MG TAB PO PRN (05:15)
[2019-04-18] MEDS ORDERED: ALBUTEROL 2.5 MG/3 ML NEBU IH PRN (05:15)
[2019-04-18] MEDS ORDERED: oxyCODONE /ACETAMINOPHEN 5-325MG TAB PO PRN (05:15)
[2019-04-18] MEDS ORDERED: HEPARIN 5,000 UNIT/1 ML VIAL SUB-Q SCH (06:00)
[2019-04-18] MEDS: hydrALAZINE 25 MG TAB PO SCH ×3 (06:01→21:24)
[2019-04-18 06:40] LABS: Basophils # (Auto) 0.1 K/mm3 (0.0-0.1); Basophils % (Auto) 0.7 % (0.0-1.8); Eosinophils # (Auto) 0.3 K/mm3 (0.0-0.4); Eosinophils % (Auto) 1.8 % (0.0-4.3); Hematocrit 25.8 % (30.3-42.9); Hemoglobin 8.2 gm/dl (10.1-14.3); Lymphocytes # (Auto) 1.8 K/mm3 (1.2-5.4); Lymphocytes % (Auto) 10.7 % (13.4-35.0); Mean Corpuscular HGB Conc 32 % (30-34); Mean Corpuscular Volume 78 fl (79-97); Monocytes # (Auto) 1.2 K/mm3 (0.0-0.8); Platelet Count 439 K/mm3 (140-440)
[2019-04-18 06:43] LABS: Red Cell Distribution Width 20.7 % (13.2-15.2)
[2019-04-18 06:44] LABS: INR 1.25 (0.87-1.13)
[2019-04-18 06:45] LABS: Partial Thromboplastin Time 35.3 Sec. (24.2-36.6)
[2019-04-18 07:01] LABS: Calcium 8.5 mg/dL (8.4-10.2)
[2019-04-18] MEDS: INSULIN LISPRO 100 UNIT/ML SUB-Q SCH ×4 (07:32→21:25)
[2019-04-18] MEDS: METOPROLOL TARTRATE 50 MG TAB PO SCH ×2 (08:58→18:24)
[2019-04-18] MEDS: ASPIRIN EC 325 MG TAB PO SCH (09:02)
[2019-04-18] MEDS: FOLIC ACID 1 MG TAB PO SCH (09:02)
[2019-04-18] MEDS: APIXABAN 5 MG TAB PO SCH ×2 (09:03→21:25)
[2019-04-18] MEDS: allopurinoL 100 MG TAB PO SCH (09:03)
[2019-04-18] MEDS: PANTOPRAZOLE 40 MG TAB PO SCH (09:03)
[2019-04-18] MEDS: FERROUS SULFATE 325 MG TAB PO SCH (09:03)
[2019-04-18] MEDS: CILOSTAZOL 100 MG TAB PO SCH ×2 (09:03→21:24)
[2019-04-18] MEDS: INSULIN NPH/REGULAR 70/30 INJ SUB-Q SCH ×2 (12:00→18:00)
--- NOTE | 2019-04-18 16:58 | Progress Note ---
Assessment and Plan - Patient Problems (1) Altered mental status Current Visit: Yes Status: Acute Qualifiers: Altered mental status type: unspecified Qualified Code(s): R41.82 - Altered mental status, unspecified Plan to address problem: MRI (2) Anemia Current Visit: Yes Status: Chronic Qualifiers: Anemia type: unspecified type Qualified Code(s): D64.9 - Anemia, un specified Plan to address problem: monitor labs. (3) Lung cancer Current Visit: Yes Status: Acute Plan to address problem: supportive. (4) Dysphagia Current Visit: Yes Status: Acute Plan to address problem: Swallow /speech eval. Subjective Date of service: 04/18/19 Principal diagnosis: Altered mental status. Interval history: Patient seen/examined, resting in bed, daughter at the bed side, case d/w her.she presented to the ER from the [place], due to AMS. she has hx of lung cancer/pleurex catheter, due to pleural fluid.CT of the brain negative.pleurex drainage straw color. 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 Objective - Constitutional Vitals: Vital Signs - 12hr 04/18/19 04/18/19 04/18/19 06:58 08:28 08:58 Temperature 97.8 F Pulse Rate 102 H 102 H Respiratory 18 Rate Blood Pressure 174/66 174/66 O2 Sat by Pulse 99 96 Oximetry 04/18/19 04/18/19 04/18/19 14:04 15:35 15:47 Temperature 98.2 F Pulse Rate 82 78 78 Respiratory 22 Rate Blood Pressure 128/51 139/62 139/62 O2 Sat by Pulse 100 100 Oximetry General appearance: Present: mild distress, well-nourished - EENT Eyes: PERRL, EOM intact ENT: hearing intact, clear oral mucosa Ears: bilateral: normal - Neck Neck: supple, normal ROM - Respiratory Respiratory effort: normal Respiratory: bilateral: CTA - Breasts Breasts: deferred - Cardiovascular Rhythm: regular Heart Sounds: Present: S1 & S2. Absent: gallop, rub Extremities: pulses intact, No edema, normal color, Full ROM - Gastrointestinal General gastrointestinal: Present: soft, non-tender, non-distended, normal bowel sounds Rectal Exam: deferred - Genitourinary Female genitourinary: deferred - Integumentary Integumentary: clear, warm, dry - Musculoskeletal Musculoskeletal: 1, strength equal bilaterally - Neurologic Neurologic: moves all extremities - Psychiatric Psychiatric: appropriate mood/affect - Labs CBC & Chem 7: 04/18/19 05:59 04/18/19 05:59 Labs: Abnormal lab results 04/17/19 04/17/19 04/17/19 Range/Units 18:31 18:31 18:31 WBC 18.9 H (4.5-11.0) K/mm3 RBC 3.53 L (3.65-5.03) M/mm3 Hgb 9.0 L (10.1-14.3) gm/dl Hct 28.2 L (30.3-42.9) % MCV (79-97) fl MCH 26 L (28-32) pg RDW 20.8 H (13.2-15.2) % Plt Count 470 H (140-440) K/mm3 Lymph % (Auto) (13.4-35.0) % Dale # (0.0-0.8) K/mm3 Seg Neutrophils % (40.0-70.0) % Seg Neuts % (Manual) 88.0 H (40.0-70.0) % Lymphocytes % (Manual) 4.0 L (13.4-35.0) % Seg Neutrophils # (1.8-7.7) K/mm3 Seg Neutrophils # Man 16.6 H (1.8-7.7) K/mm3 Lymphocytes # (Manual) 0.8 L (1.2-5.4) K/mm3 Monocytes # (Manual) 0.9 H (0.0-0.8) K/mm3 Eosinophils # (Manual) 0.6 H (0.0-0.4) K/mm3 PT (12.2-14.9) Sec. INR (0.87-1.13) Sodium 134 L (137-145) mmol/L Potassium 5.6 H (3.6-5.0) mmol/L Carbon Dioxide 19 L (22-30) mmol/L BUN 45 H (7-17) mg/dL Creatinine 1.3 H (0.7-1.2) mg/dL POC Glucose (70-105) Calcium 8.1 L (8.4-10.2) mg/dL Albumin 1.8 L (3.9-5) g/dL TSH 5.540 H (0.270-4.200) mlU/mL 04/18/19 04/18/19 04/18/19 Range/Units 05:59 05:59 05:59 WBC 16.5 H (4.5-11.0) K/mm3 RBC 3.30 L (3.65-5.03) M/mm3 Hgb 8.2 L (10.1-14.3) gm/dl Hct 25.8 L (30.3-42.9) % MCV 78 L (79-97) fl MCH 25 L (28-32) pg RDW 20.7 H (13.2-15.2) % Plt Count (140-440) K/mm3 Lymph % (Auto) 10.7 L (13.4-35.0) % Dale # 1.2 H (0.0-0.8) K/mm3 Seg Neutrophils % 79.8 H (40.0-70.0) % Seg Neuts % (Manual) (40.0-70.0) % Lymphocytes % (Manual) (13.4-35.0) % Seg Neutrophils # 13.2 H (1.8-7.7) K/mm3 Seg Neutrophils # Man (1.8-7.7) K/mm3 Lymphocytes # (Manual) (1.2-5.4) K/mm3 Monocytes # (Manual) (0.0-0.8) K/mm3 Eosinophils # (Manual) (0.0-0.4) K/mm3 PT 15.9 H (12.2-14.9) Sec. INR 1.25 H (0.87-1.13) Sodium (137-145) mmol/L Potassium 5.3 H (3.6-5.0) mmol/L Carbon Dioxide (22-30) mmol/L BUN 42 H (7-17) mg/dL Creatinine (0.7-1.2) mg/dL POC Glucose (70-105) Calcium (8.4-10.2) mg/dL Albumin (3.9-5) g/dL TSH (0.270-4.200) mlU/mL 04/18/19 04/18/19 04/18/19 Range/Units 07:25 11:29 16:32 WBC (4.5-11.0) K/mm3 RBC (3.65-5.03) M/mm3 Hgb (10.1-14.3) gm/dl Hct (30.3-42.9) % MCV (79-97) fl MCH (28-32) pg RDW (13.2-15.2) % Plt Count (140-440) K/mm3 Lymph % (Auto) (13.4-35.0) % Dale # (0.0-0.8) K/mm3 Seg Neutrophils % (40.0-70.0) % Seg Neuts % (Manual) (40.0-70.0) % Lymphocytes % (Manual) (13.4-35.0) % Seg Neutrophils # (1.8-7.7) K/mm3 Seg Neutrophils # Man (1.8-7.7) K/mm3 Lymphocytes # (Manual) (1.2-5.4) K/mm3 Monocytes # (Manual) (0.0-0.8) K/mm3 Eosinophils # (Manual) (0.0-0.4) K/mm3 PT (12.2-14.9) Sec. INR (0.87-1.13) Sodium (137-145) mmol/L Potassium (3.6-5.0) mmol/L Carbon Dioxide (22-30) mmol/L BUN (7-17) mg/dL Creatinine (0.7-1.2) mg/dL POC Glucose 69 L 130 H 151 H (70-105) Calcium (8.4-10.2) mg/dL Albumin (3.9-5) g/dL TSH (0.270-4.200) mlU/mL
[2019-04-19] MEDS: hydrALAZINE 25 MG TAB PO SCH ×3 (05:12→21:58)
[2019-04-19 05:51] LABS: Hematocrit 23.3 % (30.3-42.9); Hemoglobin 7.4 gm/dl (10.1-14.3); Mean Corpuscular HGB Conc 32 % (30-34); Mean Corpuscular Volume 80 fl (79-97); Platelet Count 377 K/mm3 (140-440); Red Blood Count 2.91 M/mm3 (3.65-5.03)
[2019-04-19 06:01] LABS: Red Cell Distribution Width 20.5 % (13.2-15.2)
[2019-04-19 06:17] LABS: Albumin 1.7 g/dL (3.9-5)
[2019-04-19] MEDS: INSULIN LISPRO 100 UNIT/ML SUB-Q SCH ×4 (07:31→22:00)
[2019-04-19] MEDS: INSULIN NPH/REGULAR 70/30 INJ SUB-Q SCH ×2 (07:51→17:13)
[2019-04-19] MEDS: METOPROLOL TARTRATE 50 MG TAB PO SCH ×2 (07:51→17:13)
[2019-04-19] MEDS: ASPIRIN EC 325 MG TAB PO SCH (10:06)
[2019-04-19] MEDS: APIXABAN 5 MG TAB PO SCH ×2 (10:06→21:57)
[2019-04-19] MEDS: FOLIC ACID 1 MG TAB PO SCH (10:07)
[2019-04-19] MEDS: CILOSTAZOL 100 MG TAB PO SCH ×2 (10:07→21:57)
[2019-04-19] MEDS: allopurinoL 100 MG TAB PO SCH (10:07)
[2019-04-19] MEDS: PANTOPRAZOLE 40 MG TAB PO SCH (10:07)
[2019-04-19] MEDS: FERROUS SULFATE 325 MG TAB PO SCH (10:07)
[2019-04-19] MEDS: cefTRIAXone/NS 1 GM/50 ML 1 GM/50 ML BAG IV SCH (10:10)
--- NOTE | 2019-04-19 10:11 | Magnetic Resonance Report ---
NONENHANCED MR SCAN OF THE BRAIN: INDICATION / CLINICAL INFORMATION: altered mental status.. Lung carcinoma TECHNIQUE: Multiplanar, multisequence MR images of the brain were noncontrast MRI brain normal brain MR obtained . COMPARISON: CT scan of the head from 04/17/2019 FINDINGS: BRAIN / INTRACRANIAL CONTENTS: No acute ischemia, acute hemorrhage, mass effect, midline shift, or hy drocephalus. No chronic infarct or atrophy. Confluent periventricular (moderate) white matter hyperi ntensities seen. Scattered the deep hemispheric white matter lesions ([place] 1) seen. In the history of lung carcinoma, I do not see focal lesion with vasogenic edema. I do not see calvarial lesion. CRANIOCERVICAL JUNCTION: No significant abnormality. VASCULAR FLOW-VOIDS: No significant abnormality. ORBITS: No significant abnormality of visualized orbits. SINUSES / MASTOIDS: Mucosal thickening is seen in the left sphenoid sinus and right mastoid air cells . ADDITIONAL FINDINGS: None. IMPRESSION: 1. No acute parenchymal lesion in the brain; given the history of lung carcinoma, I do not see space taking lesion or focal lesion with the surrounding vasogenic edema. Signer Name: Whit Celis MD Signed: 04/19/2019 10:07 AM Workstation Name: [id number]
[2019-04-19 11:56] LABS: Creatine Kinase MB 4.1 ng/mL (0.0-4.0)
--- NOTE | 2019-04-19 13:39 | Consultation ---
History of Present Illness Consult date: 04/19/19 Requesting physician: NEO ARIAS Consult reason: tachycardia History of present illness: The pt is a 73 YO female with a past medical history of stage 4 lung CA, recurrent pleural effusion with pleural catheter in place, CAD s/p ? AMI with PCI in 2008 and 2012 in [place] (per pt report), paroxysmal atrial f ibrillation, anticoagulated with Eliquis, HFrEF, CMP, HTN, DM, tobacco use (recently quit smoking). She has been seen by our practice on multiple prior hospitalizations. Pt is lethargic and unable to provide much history. Pt history provided by her daughter who is at bedside. As per daughter, the patient was brought for evaluation of AMS and lethargy. This morning, she was noted to have a bout of paroxysmal AFib HR 160s on telemetry and thus cardiology has been consulted. She has converted to SR/ST on evaluation. Echo done 02/19/2019 showed EF 30-35%, impaired relaxation, mild MR and TR, RVSP 46mmHg, basal anterior, mid anterior and apical anterior wall segments hypokinetic, mid inferoseptal and apical septal wall segments akinetic. Lexiscan MPI stress test done 02/23/2018 showed moderate ischemia, EF 35%. However, it was decided to proceed with conservative cardiac management in [facility] of significant anemia, renal insufficiency and overall clinical status. Past History Past Medical History: CAD, COPD, diabetes, heart failure, hypertension, renal failure Past Surgical History: PTCA, Other (Uric strain placement) Social history: no significant social history Family history: no significant family history Medications and Allergies Allergies Allergy/AdvReac Type Severity Reaction Status Date / Time ibuprofen Allergy Unknown Verified 02/18/19 23:29 Penicillins Allergy Unknown Verified 02/18/19 23:29 Home Medications Medication Instructions Recorded Confirmed Last Taken Type ALBUTEROL NEB's [Proventil 0.083% 2.5 mg IH Q3HRT PRN #100 nebu 03/16/19 04/17/19 Unknown Rx NEBS] Aspirin EC 325 mg PO QDAY #30 tablet 03/16/19 04/17/19 03/17/19 10:00 Rx 325 mg Cilostazol [Pletal] 50 mg PO BID #60 tablet 03/16/19 04/17/19 03/17/19 10:00 Rx 50 mg Ferrous Sulfate [Feosol 325 MG tab] 325 mg PO DAILY #30 tablet 03/16/19 04/17/19 03/17/19 10:00 Rx 325 mg Folic Acid [Folvite] 1 mg PO QDAY #30 tablet 03/16/19 04/17/19 03/17/19 10:00 Rx 1 mg ISOSORBIDE MONOnitrate [Imdur ER] 120 mg PO QDAY #1 tablet 03/16/19 04/17/19 03/17/19 10:00 Rx 120 mg Insulin NPH/Regular [NovoLIN 70/30] 10 unit SUB-Q BIDDIAB units 03/16/19 04/17/19 Unknown Rx Ipratropium (Nf) [Atrovent HFA 2 puff IH Q6HR PRN #1 inha 03/16/19 04/17/19 Unknown Rx 17MCG/PUFF] Pantoprazole [Protonix TAB] 40 mg PO QDAY #30 tablet 03/16/19 04/17/19 03/17/19 10:00 Rx 40 mg allopurinoL [Zyloprim] 100 mg PO DAILY #30 tablet 03/16/19 04/17/19 03/17/19 10:00 Rx 100 mg hydrALAZINE [Apresoline TAB] 25 mg PO Q8HR #90 tablet 03/16/19 04/17/19 03/17/19 10:00 Rx 25 mg hydrOXYzine HCL [Atarax] 10 mg PO Q6H PRN #30 tablet 03/16/19 04/17/19 Unknown Rx oxyCODONE /ACETAMINOPHEN [Percocet 1 tab PO Q6H PRN #8 tablet 03/16/19 04/17/19 Unknown Rx 5/325 mg] Apixaban [Eliquis] 5 mg PO BID #30 tablet 03/19/19 04/17/19 Unknown Rx Insulin NPH/Regular [NovoLIN 70/30] See Protocol SUB-Q ACHS #300 units 04/05/19 04/17/19 Unknown Rx Metoprolol [Lopressor TAB] 50 mg PO BIDDIAB tablet 04/05/19 04/17/19 Unknown Rx Active Meds: Active Medications Acetaminophen (Tylenol) 650 mg PO Q4H PRN PRN Reason: Pain MILD(1-3)/Fever >100.5/BRENNER Albuterol (Proventil) 2.5 mg IH Q3HRT PRN PRN Reason: Shortness Of Breath Allopurinol (Zyloprim) 100 mg PO DAILY [facility] Last Admin: 04/19/19 10:07 Dose: 100 mg Documented by: Apixaban (Eliquis) 5 mg PO BID [facility]; Protocol Last Admin: 04/19/19 10:06 Dose: 5 mg Documented by: Aspirin (Ecotrin) 325 mg PO QDAY [facility] Last Admin: 04/19/19 10:06 Dose: 325 mg Documented by: Cilostazol (Pletal) 50 mg PO BID [facility] Last Admin: 04/19/19 10:07 Dose: 50 mg Documented by: Dextrose (D50w (25gm) Syringe) 0 ml IV Q30MIN PRN; Protocol PRN Reason: Hypoglycemia Ferrous Sulfate (Feosol) 325 mg PO DAILY [facility] Last Admin: 04/19/19 10:07 Dose: 325 mg Documented by: Folic Acid (Folvite) 1 mg PO QDAY [facility] Last Admin: 04/19/19 10:07 Dose: 1 mg Documented by: Hydralazine HCl (Apresoline) 25 mg PO Q8HR [facility] Last Admin: 04/19/19 05:12 Dose: 25 mg Documented by: Hydroxyzine HCl (Atarax) 10 mg PO Q6H PRN PRN Reason: Itching Ceftriaxone Sodium (Rocephin/Ns 1 Gm/50 Ml) 1 gm in 50 mls @ 100 mls/hr IV Q24HR [facility]; Protocol Last Admin: 04/19/19 10:10 Dose: 100 mls/hr Documented by: Insulin Human Isoph/Insulin Regular (Humulin 70/30) 10 unit SUB-Q BIDDIAB [facility] Last Admin: 04/19/19 07:51 Dose: Not Given Documented by: Insulin Human Lispro (Humalog) 0 unit SUB-Q [facility]; Protocol Last Admin: 04/19/19 12:07 Dose: 3 unit Documented by: Isosorbide Mononitrate (Imdur) 120 mg PO QDAY [facility] Last Admin: 04/19/19 10:08 Dose: 120 mg Documented by: Magnesium Hydroxide (Milk Of Magnesia) 30 ml PO Q4H PRN PRN Reason: Constipation Metoprolol Tartrate (Metoprolol) 50 mg PO BIDDIAB [facility] Last Admin: 04/19/19 07:51 Dose: Not Given Documented by: Morphine Sulfate (Morphine) 2 mg IV Q4H PRN PRN Reason: Pain, Moderate (4-6) Ondansetron HCl (Zofran) 4 mg IV Q8H PRN PRN Reason: Nausea And Vomiting Oxycodone/Acetaminophen (Percocet 5/325) 1 tab PO Q6H PRN PRN Reason: Pain, Moderate (4-6) Pantoprazole Sodium (Protonix) 40 mg PO QDAY [facility] Last Admin: 04/19/19 10:07 Dose: 40 mg Documented by: Sodium Chloride (Sodium Chloride Flush Syringe 10 Ml) 10 ml IV BID [facility] Last Admin: 04/19/19 10:08 Dose: 10 ml Documented by: Sodium Chloride (Sodium Chloride Flush Syringe 10 Ml) 10 ml IV PRN PRN PRN Reason: LINE FLUSH Review of Systems Constitutional: no fever, no chills, no sweats Ears, nose, mouth and throat: no ear pain, no nose pain, no sinus pressure, no sinus pain Cardiovascular: shortness of breath, dyspnea on exertion, no chest pain, no orthopnea, no palpitations, no rapid/irregular heart beat, no edema, no syncope, no lightheadedness, no leg edema Respiratory: shortness of breath, dyspnea on exertion, no congestion, no wheezing, no pain on inspiration Gastrointestinal: no abdominal pain, no nausea, no vomiting, no diarrhea, no constipation, no change in bowel habits Genitourinary Female: no pelvic pain, no flank pain, no dysuria, no urinary frequency, no urgency Musculoskeletal: no neck stiffness, no neck pain, no shooting arm pain, no arm numbness/tingling, no low back pain, no shooting leg pain Integumentary: no rash, no pruritis, no redness, no sores, no wounds Neurological: confusion, no head injury, no paralysis, no parathesias, no numbness, no tingling, no seizures, no syncope Psychiatric: no anxiety Endocrine: no cold intolerance, no heat intolerance Hematologic/Lymphatic: no easy bruising, no easy bleeding Allergic/Immunologic: no urticaria, no wheezing Physical Examination Vital Signs Temp Pulse Resp BP Pulse Ox 99.6 F 88 29 H 166/58 94 04/17/19 17:35 04/17/19 17:35 04/17/19 17:35 04/17/19 17:35 04/17/19 17:35 General appearance: other (lethargic, withdrawn) HEENT: Positive: PERRL Neck: Positive: neck supple, trachea midline Cardiac: Positive: Reg Rate and Rhythm, S1/S2 Results 04/19/19 04:42 04/19/19 04:42 Cardiac Enzymes 04/19/19 04/19/19 Range/Units 04:42 11:17 AST 12 (5-40) units/L CK-MB (CK-2) 4.1 H (0.0-4.0) ng/mL CBC 04/19/19 Range/Units 04:42 WBC 13.5 H (4.5-11.0) K/mm3 RBC 2.91 L (3.65-5.03) M/mm3 Hgb 7.4 L (10.1-14.3) gm/dl Hct 23.3 L (30.3-42.9) % Plt Count 377 (140-440) K/mm3 Comprehensive Metabolic Panel 04/19/19 Range/Units 04:42 Sodium 140 (137-145) mmol/L Potassium 5.5 H (3.6-5.0) mmol/L Chloride 105.6 (98-107) mmol/L Carbon Dioxide 21 L (22-30) mmol/L BUN 38 H (7-17) mg/dL Creatinine 1.2 (0.7-1.2) mg/dL Glucose 111 H (65-100) mg/dL Calcium 8.0 L (8.4-10.2) mg/dL AST 12 (5-40) units/L ALT 9 (7-56) units/L Alkaline Phosphatase 92 (35-129) units/L Total Protein 6.1 L (6.3-8.2) g/dL Albumin 1.7 L (3.9-5) g/dL - Imaging and Cardiology Echo: report reviewed (02/19/2019 showed EF 30-35%, impaired relaxation, mild MR and TR, RVSP 46mmHg, basal anterior, mid anterior and apical anterior wall segments hypokinetic, mid inferoseptal and apical septal wall segments akinetic. ) EKG: report reviewed, image reviewed EKG interpretations - Telemetry EKG Rhythm: Sinus Rhythm - EKG Sinus rhythms and dysrhythmias: sinus rhythm Assessment and Plan Agree with present cardiac management. Consider titration of BB for HR optimization if BPs will permit, can consider amiodarone if BPs remain borderline hypotensive. Recommend pt tx to telemetry per primary team. D/w primary RN. The patient has been seen in conjunction with Dr. Munir Negron who agrees with the assessment and plan of care. - Patient Problems (1) Altered mental status Current Visit: Yes Status: Acute (2) Acute heart failure with reduced ejection fraction Current Visit: Yes Status: Acute (3) Paroxysmal atrial fibrillation with RVR Current Visit: Yes Status: Acute (4) Lung cancer Current Visit: Yes Status: Chronic (5) Pleural effusion Current Visit: Yes Status: Acute (6) CAD (coronary artery disease) Current Visit: Yes Status: Chronic Qualifiers: Coronary Disease-Associated Artery/Lesion type: [place] artery (7) Stented coronary artery Current Visit: Yes Status: Chronic (8) Cardiomyopathy Current Visit: Yes Status: Chronic (9) Abnormal stress test Current Visit: Yes Status: Chronic (10) PAD (peripheral artery disease) Current Visit: Yes Status: Chronic (11) Diabetes Current Visit: Yes Status: Chronic (12) Former tobacco use Current Visit: Yes Status: Chronic (13) Anemia Current Visit: Yes Status: Chronic (14) Hyperkalemia Current Visit: Yes Status: Acute
--- NOTE | 2019-04-19 13:58 | Consultation ---
History of Present Illness Consult date: 04/19/19 Reason for Consult: Altered mental status Chief complaint: Altered mental status History of present illness: Patient is a 73 y/o woman w/ a h/o CHF, COPD, DM, HTN, CAD, PAF, squamous cell lung CA. She was noted to have altered mental status 2 days ago, and was brought to [facility]. Patient was staying at rehab facility, as her daughter states that she was undergoing rehab prior to starting chemotherapy. She initially was not speaking, however daughter states that over the past 2 days, since being admitted at [facility], mental status has started to improve, and she is talking now, however not completely back at baseline. Past History Past Medical History: CAD, COPD, diabetes, heart failure, hypertension, renal failure Past Surgical History: PTCA, Other (Uric strain placement) Social history: no significant social history Family history: no significant family history Medications and Allergies Allergies Allergy/AdvReac Type Severity Reaction Status Date / Time ibuprofen Allergy Unknown Verified 02/18/19 23:29 Penicillins Allergy Unknown Verified 02/18/19 23:29 Home Medications Medication Instructions Recorded Confirmed Last Taken Type ALBUTEROL NEB's [Proventil 0.083% 2.5 mg IH Q3HRT PRN #100 nebu 03/16/19 04/17/19 Unknown Rx NEBS] Aspirin EC 325 mg PO QDAY #30 tablet 03/16/19 04/17/19 03/17/19 10:00 Rx 325 mg Cilostazol [Pletal] 50 mg PO BID #60 tablet 03/16/19 04/17/19 03/17/19 10:00 Rx 50 mg Ferrous Sulfate [Feosol 325 MG tab] 325 mg PO DAILY #30 tablet 03/16/19 04/17/19 03/17/19 10:00 Rx 325 mg Folic Acid [Folvite] 1 mg PO QDAY #30 tablet 03/16/19 04/17/19 03/17/19 10:00 Rx 1 mg ISOSORBIDE MONOnitrate [Imdur ER] 120 mg PO QDAY #1 tablet 03/16/19 04/17/19 03/17/19 10:00 Rx 120 mg Insulin NPH/Regular [NovoLIN 70/30] 10 unit SUB-Q BIDDIAB units 03/16/19 04/17/19 Unknown Rx Ipratropium (Nf) [Atrovent HFA 2 puff IH Q6HR PRN #1 inha 03/16/19 04/17/19 Unknown Rx 17MCG/PUFF] Pantoprazole [Protonix TAB] 40 mg PO QDAY #30 tablet 03/16/19 04/17/19 03/17/19 10:00 Rx 40 mg allopurinoL [Zyloprim] 100 mg PO DAILY #30 tablet 03/16/19 04/17/19 03/17/19 10:00 Rx 100 mg hydrALAZINE [Apresoline TAB] 25 mg PO Q8HR #90 tablet 03/16/19 04/17/19 03/17/19 10:00 Rx 25 mg hydrOXYzine HCL [Atarax] 10 mg PO Q6H PRN #30 tablet 03/16/19 04/17/19 Unknown Rx oxyCODONE /ACETAMINOPHEN [Percocet 1 tab PO Q6H PRN #8 tablet 03/16/19 04/17/19 Unknown Rx 5/325 mg] Apixaban [Eliquis] 5 mg PO BID #30 tablet 03/19/19 04/17/19 Unknown Rx Insulin NPH/Regular [NovoLIN 70/30] See Protocol SUB-Q ACHS #300 units 04/05/19 04/17/19 Unknown Rx Metoprolol [Lopressor TAB] 50 mg PO BIDDIAB tablet 04/05/19 04/17/19 Unknown Rx Active Meds: Active Medications Acetaminophen (Tylenol) 650 mg PO Q4H PRN PRN Reason: Pain MILD(1-3)/Fever >100.5/[place] Albuterol (Proventil) 2.5 mg IH Q3HRT PRN PRN Reason: Shortness Of Breath Allopurinol (Zyloprim) 100 mg PO DAILY [facility] Last Admin: 04/19/19 10:07 Dose: 100 mg Documented by: Apixaban (Eliquis) 5 mg PO BID [facility]; Protocol Last Admin: 04/19/19 10:06 Dose: 5 mg Documented by: Aspirin (Ecotrin) 325 mg PO QDAY [facility] Last Admin: 04/19/19 10:06 Dose: 325 mg Documented by: Cilostazol (Pletal) 50 mg PO BID [facility] Last Admin: 04/19/19 10:07 Dose: 50 mg Documented by: Dextrose (D50w (25gm) Syringe) 0 ml IV Q30MIN PRN; Protocol PRN Reason: Hypoglycemia Ferrous Sulfate (Feosol) 325 mg PO DAILY [facility] Last Admin: 04/19/19 10:07 Dose: 325 mg Documented by: Folic Acid (Folvite) 1 mg PO QDAY [facility] Last Admin: 04/19/19 10:07 Dose: 1 mg Documented by: Hydralazine HCl (Apresoline) 25 mg PO Q8HR [facility] Last Admin: 04/19/19 05:12 Dose: 25 mg Documented by: Hydroxyzine HCl (Atarax) 10 mg PO Q6H PRN PRN Reason: Itching Ceftriaxone Sodium (Rocephin/Ns 1 Gm/50 Ml) 1 gm in 50 mls @ 100 mls/hr IV Q24HR [facility]; Protocol Last Admin: 04/19/19 10:10 Dose: 100 mls/hr Documented by: Insulin Human Isoph/Insulin Regular (Humulin 70/30) 10 unit SUB-Q BIDDIAB [facility] Last Admin: 04/19/19 07:51 Dose: Not Given Documented by: Insulin Human Lispro (Humalog) 0 unit SUB-Q ACHS [facility]; Protocol Last Admin: 04/19/19 12:07 Dose: 3 unit Documented by: Isosorbide Mononitrate (Imdur) 120 mg PO QDAY [facility] Last Admin: 04/19/19 10:08 Dose: 120 mg Documented by: Magnesium Hydroxide (Milk Of Magnesia) 30 ml PO Q4H PRN PRN Reason: Constipation Metoprolol Tartrate (Metoprolol) 50 mg PO BIDDIAB [facility] Last Admin: 04/19/19 07:51 Dose: Not Given Documented by: Morphine Sulfate (Morphine) 2 mg IV Q4H PRN PRN Reason: Pain, Moderate (4-6) Ondansetron HCl (Zofran) 4 mg IV Q8H PRN PRN Reason: Nausea And Vomiting Oxycodone/Acetaminophen (Percocet 5/325) 1 tab PO Q6H PRN PRN Reason: Pain, Moderate (4-6) Pantoprazole Sodium (Protonix) 40 mg PO QDAY [facility] Last Admin: 04/19/19 10:07 Dose: 40 mg Documented by: Sodium Chloride (Sodium Chloride Flush Syringe 10 Ml) 10 ml IV BID [facility] Last Admin: 04/19/19 10:08 Dose: 10 ml Documented by: Sodium Chloride (Sodium Chloride Flush Syringe 10 Ml) 10 ml IV PRN PRN PRN Reason: LINE FLUSH Review of Systems ROS unobtainable: due to mental status Physical Examination - Vital Signs Vital Signs: Vital Signs Temp Pulse Resp BP Pulse Ox 99.6 F 88 29 H 166/58 94 04/17/19 17:35 04/17/19 17:35 04/17/19 17:35 04/17/19 17:35 04/17/19 17:35 - Physical Exam Narrative exam: Patient is alert, awake, oriented only to self and daughter, follows 1-step commands. PERRL, EOMI, VFF, no facial weakness noted, tongue midline, b/l intact to LT. No dysarthria or aphasia noted. 5/5 strength in UE, 2/5 in LE, which is chronic per daughter. B/l intact to LT. B/l intact to FTN. 2+ reflexes throughout. - Constitutional General appearance: comfortable - EENT EENT: Present: ATNC, PERRL, mucous membranes moist - Respiratory Respiratory: Present: lungs clear, normal breath sounds - Cardiovascular Cardiovascular: Present: regular rate, normal S1, normal S2 Extremities: Present: no clubbing, cyanosis, no inflammation - Gastrointestinal Gastrointestinal: Present: normoactive bowel sounds, soft, non-tender - Integumentary Integumentary: Present: normal - Musculoskeletal Musculoskeletal: Present: no fluid collection, no pain Results - Laboratory Findings CBC and BMP: 04/19/19 04:42 04/19/19 04:42 Abnormal Lab Findings: Abnormal Labs 04/17/19 04/17/19 04/17/19 18:31 18:31 18:31 WBC 18.9 H RBC 3.53 L Hgb 9.0 L Hct 28.2 L MCV MCH 26 L RDW 20.8 H Plt Count 470 H Lymph % (Auto) [place] # Seg Neutrophils % Seg Neuts % (Manual) 88.0 H Lymphocytes % (Manual) 4.0 L Seg Neutrophils # Seg Neutrophils # Man 16.6 H Lymphocytes # (Manual) 0.8 L Monocytes # (Manual) 0.9 H Eosinophils # (Manual) 0.6 H PT INR Sodium 134 L Potassium 5.6 H Carbon Dioxide 19 L BUN 45 H Creatinine 1.3 H Glucose POC Glucose Calcium 8.1 L CK-MB (CK-2) CK-MB (CK-2) Rel Index Total Protein Albumin 1.8 L TSH 5.540 H 04/18/19 04/18/19 04/18/19 05:59 05:59 05:59 WBC 16.5 H RBC 3.30 L Hgb 8.2 L Hct 25.8 L MCV 78 L MCH 25 L RDW 20.7 H Plt Count Lymph % (Auto) 10.7 L [place] # 1.2 H Seg Neutrophils % 79.8 H Seg Neuts % (Manual) Lymphocytes % (Manual) Seg Neutrophils # 13.2 H Seg Neutrophils # Man Lymphocytes # (Manual) Monocytes # (Manual) Eosinophils # (Manual) PT 15.9 H INR 1.25 H Sodium Potassium 5.3 H Carbon Dioxide BUN 42 H Creatinine Glucose POC Glucose Calcium CK-MB (CK-2) CK-MB (CK-2) Rel Index Total Protein Albumin TSH 04/18/19 04/18/19 04/18/19 07:25 11:29 16:32 WBC RBC Hgb Hct MCV MCH RDW Plt Count Lymph % (Auto) [place] # Seg Neutrophils % Seg Neuts % (Manual) Lymphocytes % (Manual) Seg Neutrophils # Seg Neutrophils # Man Lymphocytes # (Manual) Monocytes # (Manual) Eosinophils # (Manual) PT INR Sodium Potassium Carbon Dioxide BUN Creatinine Glucose POC Glucose 69 L 130 H 151 H Calcium CK-MB (CK-2) CK-MB (CK-2) Rel Index Total Protein Albumin TSH 04/19/19 04/19/19 04/19/19 04:42 04:42 07:25 WBC 13.5 H RBC 2.91 L Hgb 7.4 L Hct 23.3 L MCV MCH 25 L RDW 20.5 H Plt Count Lymph % (Auto) [place] # Seg Neutrophils % Seg Neuts % (Manual) Lymphocytes % (Manual) Seg Neutrophils # Seg Neutrophils # Man Lymphocytes # (Manual) Monocytes # (Manual) Eosinophils # (Manual) PT INR Sodium Potassium 5.5 H Carbon Dioxide 21 L BUN 38 H Creatinine Glucose 111 H POC Glucose 130 H Calcium 8.0 L CK-MB (CK-2) CK-MB (CK-2) Rel Index Total Protein 6.1 L Albumin 1.7 L TSH 04/19/19 04/19/19 11:17 11:20 WBC RBC Hgb Hct MCV MCH RDW Plt Count Lymph % (Auto) [place] # Seg Neutrophils % Seg Neuts % (Manual) Lymphocytes % (Manual) Seg Neutrophils # Seg Neutrophils # Man Lymphocytes # (Manual) Monocytes # (Manual) Eosinophils # (Manual) PT INR Sodium Potassium Carbon Dioxide BUN Creatinine Glucose POC Glucose 203 H Calcium CK-MB (CK-2) 4.1 H CK-MB (CK-2) Rel Index 12.8 H Total Protein Albumin TSH Assessment and Plan Patient is a 73 y/o woman w/ a h/o CHF, COPD, DM, HTN, CAD, PAF, squamous cell lung CA, who p/w altered mental status. According to the patient's clinical findings, it is likely that she has metabolic encephalopathy. To support this diagnosis, the patient is noted to have elevated WBC. Patient's daughter states that drainage from the chest tube has been cloudy recently. Plan: 1. Metabolic encephalopathy: - MRI brain: no acute abnormality - Mental status has improved since admission, however not yet returned to baseline. - Continue to treat and investigate underlying infection per primary team. Recommend ID consult. - Check EEG. - Will continue to monitor patiant - Recommend PT/OT Thank you for allowing me to take part in the care of this patient. Brian Salomon MD Neurology
--- NOTE | 2019-04-19 20:00 | Progress Note ---
Assessment and Plan - Patient Problems (1) Altered mental status Current Visit: Yes Status: Acute Qualifiers: Altered mental status type: unspecified Qualified Code(s): R41.82 - Altered mental status, unspecified Plan to address problem: MRI completed., and reviewed, no acute findings. (2) Anemia Current Visit: Yes Status: Chronic Qualifiers: Anemia type: unspecified type Qualified Code(s): D64.9 - Anemia, unspecified Plan to address problem: monitor labs. (3) Lung cancer Current Visit: Yes Status: Acute Plan to address problem: supportive. (4) Dysphagia Current Visit: Yes Status: Acute Plan to address problem: Swallow /speech eval. Subjective Date of service: 04/19/19 Principal diagnosis: Altered mental status. Interval history: Patient seen/examined, resting in bed, daughter at the bed side, case d/w her.she presented to the ER from the [place], due to AMS. she has hx of lung cancer/pleurex catheter, due to pleural fluid.CT of the brain negative.pleurex drainage straw color. 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 Patient seen/examined, earlier this am, case d/w daughter at the bed side. Since then, HR up, cardiology consulted, will transfer to tele floor.as per cardiology rec.Appreciate cardiology/neuro input.Will continue IV ABX, until culture returns. Patient has been non ambulatory for years, and Pt/OT may not add much, but rec appreciated. Objective - Constitutional Vitals: Vital Signs - 12hr 04/19/19 04/19/19 04/19/19 10:00 10:08 13:25 Temperature 97.1 F L Pulse Rate 105 H 106 H 112 H Pulse Rate [ Apical] Respiratory 18 Rate Blood Pressure 143/63 105/47 O2 Sat by Pulse 100 Oximetry 04/19/19 04/19/19 04/19/19 13:44 14:00 17:13 Temperature Pulse Rate 112 H 108 H Pulse Rate [ 105 H Apical] Respiratory 20 Rate Blood Pressure 105/47 143/53 O2 Sat by Pulse 100 Oximetry General appearance: Present: mild distress - EENT Eyes: PERRL, EOM intact ENT: hearing intact, clear oral mucosa Ears: bilateral: normal - Neck Neck: supple, normal ROM - Respiratory Respiratory effort: normal Respiratory: bilateral: CTA - Breasts Breasts: deferred - Cardiovascular Rhythm: regular Heart Sounds: Present: S1 & S2. Absent: gallop, rub Extremities: pulses intact, No edema, normal color, Full ROM - Gastrointestinal General gastrointestinal: Present: soft, non-tender, non-distended, normal bowel sounds Rectal Exam: deferred - Genitourinary Female genitourinary: deferred - Integumentary Integumentary: clear, warm, dry - Musculoskeletal Musculoskeletal: 1, strength equal bilaterally - Neurologic Neurologic: moves all extremities - Psychiatric Psychiatric: memory intact, appropriate mood/affect, intact judgment & insight - Labs CBC & Chem 7: 04/19/19 04:42 04/19/19 04:42 Labs: Abnormal lab results 04/19/19 04/19/19 04/19/19 Range/Units 04:42 04:42 07:25 WBC 13.5 H (4.5-11.0) K/mm3 RBC 2.91 L (3.65-5.03) M/mm3 Hgb 7.4 L (10.1-14.3) gm/dl Hct 23.3 L (30.3-42.9) % MCH 25 L (28-32) pg RDW 20.5 H (13.2-15.2) % Potassium 5.5 H (3.6-5.0) mmol/L Carbon Dioxide 21 L (22-30) mmol/L BUN 38 H (7-17) mg/dL Glucose 111 H (65-100) mg/dL POC Glucose 130 H (70-105) Calcium 8.0 L (8.4-10.2) mg/dL CK-MB (CK-2) (0.0-4.0) ng/mL CK-MB (CK-2) Rel Index (0-4) Total Protein 6.1 L (6.3-8.2) g/dL Albumin 1.7 L (3.9-5) g/dL 04/19/19 04/19/19 04/19/19 Range/Units 11:17 11:20 16:11 WBC (4.5-11.0) K/mm3 RBC (3.65-5.03) M/mm3 Hgb (10.1-14.3) gm/dl Hct (30.3-42.9) % MCH (28-32) pg RDW (13.2-15.2) % Potassium (3.6-5.0) mmol/L Carbon Dioxide (22-30) mmol/L BUN (7-17) mg/dL Glucose (65-100) mg/dL POC Glucose 203 H 190 H (70-105) Calcium (8.4-10.2) mg/dL CK-MB (CK-2) 4.1 H (0.0-4.0) ng/mL CK-MB (CK-2) Rel Index 12.8 H (0-4) Total Protein (6.3-8.2) g/dL Albumin (3.9-5) g/dL
[2019-04-20] MEDS: hydrALAZINE 25 MG TAB PO SCH ×3 (06:54→22:25)
[2019-04-20] MEDS: INSULIN NPH/REGULAR 70/30 INJ SUB-Q SCH ×2 (07:30→17:44)
[2019-04-20] MEDS: INSULIN LISPRO 100 UNIT/ML SUB-Q SCH ×4 (07:30→22:00)
[2019-04-20] MEDS: APIXABAN 5 MG TAB PO SCH ×2 (12:26→22:25)
[2019-04-20] MEDS: FOLIC ACID 1 MG TAB PO SCH (12:26)
[2019-04-20] MEDS: FERROUS SULFATE 325 MG TAB PO SCH (12:26)
[2019-04-20] MEDS: allopurinoL 100 MG TAB PO SCH (12:27)
[2019-04-20] MEDS: PANTOPRAZOLE 40 MG TAB PO SCH (12:27)
[2019-04-20] MEDS: ASPIRIN EC 325 MG TAB PO SCH (12:27)
[2019-04-20] MEDS: CILOSTAZOL 100 MG TAB PO SCH ×2 (12:27→22:25)
[2019-04-20] MEDS: cefTRIAXone/NS 1 GM/50 ML 1 GM/50 ML BAG IV SCH (12:30)
[2019-04-20] MEDS: METOPROLOL TARTRATE 50 MG TAB PO SCH ×2 (12:33→17:46)
--- NOTE | 2019-04-20 12:35 | Progress Note ---
Assessment and Plan Patient is a 73 y/o woman w/ a h/o CHF, COPD, DM, HTN, CAD, PAF, squamous cell lung CA, who p/w altered mental status. According to the patient's clinical findings, it is likely that she has metabolic encephalopathy. To support this diagnosis, the patient is noted to have elevated WBC. Patient's daughter states that drainage from the chest tube has been cloudy recently. Plan: 1. Metabolic encephalopathy: - MRI brain: no acute abnormality - Mental status has improved since admission, however not yet returned to baseline. - Continue to treat and investigate underlying infection per primary team. Recommend ID consult. - Check EEG - pending - Will continue to monitor patiant - Recommend PT/OT Thank you for allowing me to take part in the care of this patient. Brian Salomon MD Neurology Subjective Date of service: 04/20/19 Principal diagnosis: Altered mental status. Interval history: No acute events overnight. Mental status improved since yesterday, but not back to baseline. Objective - Exam Narrative Exam: Patient is alert, awake, oriented to age, self and daughter, follows 1-step commands. PERRL, EOMI, VFF, no facial weakness noted, tongue midline, b/l intact to LT. No dysarthria or aphasia noted. 5/5 strength in UE, 3/5 in LE, which is chronic per daughter. B/l intact to LT. B/l intact to FTN. 2+ reflexes throughout. - Vital Sign Vital Signs - 12hr 04/20/19 04/20/19 04/20/19 02:00 03:29 08:53 Temperature 98.4 F 97.7 F Pulse Rate 83 86 Pulse Rate [ 76 Apical] Respiratory 18 18 18 Rate Blood Pressure 136/59 125/55 O2 Sat by Pulse 98 100 100 Oximetry - EENT EENT: ATNC, PERRL, mucous membranes moist - Respiratory Respiratory: no respiratory distress - Cardiovascular Cardiovascular: regular rate, normal S1, normal S2 Extremities: no clubbing, cyanosis, no inflammation - Gastrointestinal Gastrointestinal: normoactive bowel sounds, soft, non-tender - Integumentary Integumentary: normal - Musculoskeletal Musculoskeletal: no fluid collection, no pain - Laboratory Findings CBC and BMP: 04/19/19 04:42 04/19/19 04:42 Abnormal Lab Findings: Abnormal Labs 04/17/19 04/17/19 04/17/19 18:31 18:31 18:31 WBC 18.9 H RBC 3.53 L Hgb 9.0 L Hct 28.2 L MCV MCH 26 L RDW 20.8 H Plt Count 470 H Lymph % (Auto) [place] # Seg Neutrophils % Seg Neuts % (Manual) 88.0 H Lymphocytes % (Manual) 4.0 L Seg Neutrophils # Seg Neutrophils # Man 16.6 H Lymphocytes # (Manual) 0.8 L Monocytes # (Manual) 0.9 H Eosinophils # (Manual) 0.6 H PT INR Sodium 134 L Potassium 5.6 H Carbon Dioxide 19 L BUN 45 H Creatinine 1.3 H Glucose POC Glucose Calcium 8.1 L CK-MB (CK-2) CK-MB (CK-2) Rel Index Total Protein Albumin 1.8 L TSH 5.540 H 04/18/19 04/18/19 04/18/19 05:59 05:59 05:59 WBC 16.5 H RBC 3.30 L Hgb 8.2 L Hct 25.8 L MCV 78 L MCH 25 L RDW 20.7 H Plt Count Lymph % (Auto) 10.7 L [place] # 1.2 H Seg Neutrophils % 79.8 H Seg Neuts % (Manual) Lymphocytes % (Manual) Seg Neutrophils # 13.2 H Seg Neutrophils # Man Lymphocytes # (Manual) Monocytes # (Manual) Eosinophils # (Manual) PT 15.9 H INR 1.25 H Sodium Potassium 5.3 H Carbon Dioxide BUN 42 H Creatinine Glucose POC Glucose Calcium CK-MB (CK-2) CK-MB (CK-2) Rel Index Total Protein Albumin TSH 04/18/19 04/18/19 04/18/19 07:25 11:29 16:32 WBC RBC Hgb Hct MCV MCH RDW Plt Count Lymph % (Auto) [place] # Seg Neutrophils % Seg Neuts % (Manual) Lymphocytes % (Manual) Seg Neutrophils # Seg Neutrophils # Man Lymphocytes # (Manual) Monocytes # (Manual) Eosinophils # (Manual) PT INR Sodium Potassium Carbon Dioxide BUN Creatinine Glucose POC Glucose 69 L 130 H 151 H Calcium CK-MB (CK-2) CK-MB (CK-2) Rel Index Total Protein Albumin TSH 04/19/19 04/19/19 04/19/19 04:42 04:42 07:25 WBC 13.5 H RBC 2.91 L Hgb 7.4 L Hct 23.3 L MCV MCH 25 L RDW 20.5 H Plt Count Lymph % (Auto) [place] # Seg Neutrophils % Seg Neuts % (Manual) Lymphocytes % (Manual) Seg Neutrophils # Seg Neutrophils # Man Lymphocytes # (Manual) Monocytes # (Manual) Eosinophils # (Manual) PT INR Sodium Potassium 5.5 H Carbon Dioxide 21 L BUN 38 H Creatinine Glucose 111 H POC Glucose 130 H Calcium 8.0 L CK-MB (CK-2) CK-MB (CK-2) Rel Index Total Protein 6.1 L Albumin 1.7 L TSH 04/19/19 04/19/19 04/19/19 11:17 11:20 16:11 WBC RBC Hgb Hct MCV MCH RDW Plt Count Lymph % (Auto) [place] # Seg Neutrophils % Seg Neuts % (Manual) Lymphocytes % (Manual) Seg Neutrophils # Seg Neutrophils # Man Lymphocytes # (Manual) Monocytes # (Manual) Eosinophils # (Manual) PT INR Sodium Potassium Carbon Dioxide BUN Creatinine Glucose POC Glucose 203 H 190 H Calcium CK-MB (CK-2) 4.1 H CK-MB (CK-2) Rel Index 12.8 H Total Protein Albumin TSH 04/19/19 04/20/19 20:57 12:26 WBC RBC Hgb Hct MCV MCH RDW Plt Count Lymph % (Auto) [place] # Seg Neutrophils % Seg Neuts % (Manual) Lymphocytes % (Manual) Seg Neutrophils # Seg Neutrophils # Man Lymphocytes # (Manual) Monocytes # (Manual) Eosinophils # (Manual) PT INR Sodium Potassium Carbon Dioxide BUN Creatinine Glucose POC Glucose 164 H 182 H Calcium CK-MB (CK-2) CK-MB (CK-2) Rel Index Total Protein Albumin TSH
--- NOTE | 2019-04-20 14:10 | Progress Note ---
Assessment and Plan Agree with present cardiac management. Consider titration of BB for HR optimization if BPs will permit, can consider amiodarone if BPs remain borderline hypotensive. Cont observation on telemetry. The patient has been seen in conjunction with Dr. Munir Negron who agrees with the assessment and plan of care. - Patient Problems (1) Altered mental status Current Visit: Yes Status: Acute (2) Acute heart failure with reduced ejection fraction Current Visit: Yes Status: Acute (3) Paroxysmal atrial fibrillation with RVR Current Visit: Yes Status: Acute (4) Lung cancer Current Visit: Yes Status: Chronic (5) Pleural effusion Current Visit: Yes Status: Acute (6) CAD (coronary artery disease) Current Visit: Yes Status: Chronic Qualifiers: Coronary Disease-Associated Artery/Lesion type: [place] artery (7) Stented coronary artery Current Visit: Yes Status: Chronic (8) Cardiomyopathy Current Visit: Yes Status: Chronic (9) Abnormal stress test Current Visit: Yes Status: Chronic (10) PAD (peripheral artery disease) Current Visit: Yes Status: Chronic (11) Diabetes Current Visit: Yes Status: Chronic (12) Former tobacco use Current Visit: Yes Status: Chronic (13) Anemia Current Visit: Yes Status: Chronic (14) Hyperkalemia Current Visit: Yes Status: Acute Subjective Date of service: 04/20/19 Principal diagnosis: Altered mental status. Interval history: pt resting in bed, no current cardiac complaints. daughter at bedside. tele reviewed - in SR with HR 80s, infrequent bouts of paroxysmal AFib noted overnight, HR 115s. Objective Last Vital Signs Temp 97.7 F 04/20/19 08:53 Pulse 86 04/20/19 08:53 Resp 18 04/20/19 08:53 BP 125/55 04/20/19 08:53 Pulse Ox 100 04/20/19 08:53 - Physical Examination General: No Apparent Distress HEENT: Positive: PERRL Neck: Positive: neck supple, trachea midline Cardiac: Positive: Reg Rate and Rhythm, S1/S2 Lungs: Positive: Decreased Breath Sounds - Imaging and Cardiology EKG: report reviewed, image reviewed Echo: report reviewed (02/19/2019 showed EF 30-35%, impaired relaxation, mild MR and TR, RVSP 46mmHg, basal anterior, mid anterior and apical anterior wall segments hypokinetic, mid inferoseptal and apical septal wall segments akinetic. ) - EKG Sinus rhythms and dysrhythmias: sinus rhythm
--- NOTE | 2019-04-20 17:51 | Electroencephalogram Report ---
Electroencephalogram EEG Date of exam: 04/20/19 History: Patient is a 73 y/o woman w/ a h/o CHF, COPD, DM, HTN, CAD, PAF, squamous cell lung CA, who p/w altered mental status. Description: Impression: 1. Generalized slowing 2. No seizures noted during recording. Description: At the onset of this recording, the patient is lying supine. The background we note a 6 Hz theta activity that has an amplitude ranging 20-30 V. There are no asymmetries in amplitude or frequency between hemispheres. Intermittent photic stimulation was performed, and no photic drive noted. Hyperventilation was not performed. Significant lead artifact noted during EEG recording. Interpretation: This routine EEG performed during sleep is abnormal secondary to above findings and is consistent with bihemispheric dysfunction and encephalopathy. The above described findings of diffuse slowing is etiologically nonspecific, and similar findings have been reported in cases of toxic, metabolic, hypoxic ischemic, infectious, medication, sleep deprivation, dementia, postictal state, and other causes of diffuse and multifocal encephalopathy.
--- NOTE | 2019-04-20 19:00 | Progress Note ---
Assessment and Plan - Patient Problems (1) Altered mental status Current Visit: Yes Status: Acute Qualifiers: Altered mental status type: unspecified Qualified Code(s): R41.82 - Altered mental status, unspecified Plan to address problem: MRI completed., and reviewed, no acute findings. (2) Anemia Current Visit: Yes Status: Chronic Qualifiers: Anemia type: unspecified type Qualified Code(s): D64.9 - Anemia, unspecified Plan to address problem: monitor labs. (3) Lung cancer Current Visit: Yes Status: Acute Plan to address problem: supportive. (4) Dysphagia Current Visit: Yes Status: Acute Plan to address problem: Swallow /speech eval. Subjective Date of service: 04/20/19 Principal diagnosis: Altered mental status. Interval history: Patient seen/examined, resting in bed, daughter at the bed side, case d/w her.she presented to the ER from the [place], due to AMS. she has hx of lung cancer/pleurex catheter, due to pleural fluid.CT of the brain negative.pleurex drainage straw color. 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 Patient seen/examined, earlier this am, case d/w daughter at the bed side. Since then, HR up, cardiology consulted, will transfer to tele floor.as per cardiology rec.Appreciate cardiology/neuro input.Will continue IV ABX, until culture returns. Patient has been non ambulatory for years, and Pt/OT may not add much, but rec appreciated. Patient seen/examined, resting in bed, records/EEG /neurology notes reviewed, case d/w her daughter at the bed side.awaiting PT/OT eval/Tx. will do am labs. Objective - Constitutional Vitals: Vital Signs - 12hr 04/20/19 04/20/19 08:53 10:00 Temperature 97.7 F Pulse Rate 86 86 Respiratory 18 Rate Blood Pressure 125/55 O2 Sat by Pulse 100 Oximetry General appearance: Present: mild distress, other (poor oral intake.) - EENT Eyes: PERRL, EOM intact ENT: hearing intact, clear oral mucosa Ears: bilateral: normal - Neck Neck: supple, normal ROM - Respiratory Respiratory effort: normal Respiratory: bilateral: CTA - Breasts Breasts: deferred - Cardiovascular Rhythm: regular Heart Sounds: Present: S1 & S2. Absent: gallop, rub Extremities: pulses intact, No edema, normal color, Full ROM - Gastrointestinal General gastrointestinal: Present: soft, non-tender, non-distended, normal bowel sounds Rectal Exam: deferred - Genitourinary Female genitourinary: deferred - Integumentary Integumentary: clear, warm, dry - Musculoskeletal Musculoskeletal: strength equal bilaterally, generalized weakness - Neurologic Neurologic: moves all extremities - Psychiatric Psychiatric: appropriate mood/affect - Labs CBC & Chem 7: 04/19/19 04:42 04/19/19 04:42 Labs: Abnormal lab results 04/19/19 04/20/19 04/20/19 Range/Units 20:57 12:26 16:36 POC Glucose 164 H 182 H 242 H (70-105)
[2019-04-21] MEDS: hydrALAZINE 25 MG TAB PO SCH ×3 (06:25→21:25)
[2019-04-21 08:14] LABS: Calcium 8.3 mg/dL (8.4-10.2)
[2019-04-21 08:25] LABS: Basophils # (Auto) 0.1 K/mm3 (0.0-0.1); Basophils % (Auto) 1.1 % (0.0-1.8); Eosinophils # (Auto) 0.5 K/mm3 (0.0-0.4); Eosinophils % (Auto) 3.9 % (0.0-4.3); Hematocrit 21.6 % (30.3-42.9); Lymphocytes # (Auto) 1.7 K/mm3 (1.2-5.4); Lymphocytes % (Auto) 13.6 % (13.4-35.0); Mean Corpuscular HGB Conc 32 % (30-34); Mean Corpuscular Volume 79 fl (79-97); Monocytes # (Auto) 0.8 K/mm3 (0.0-0.8); Platelet Count 403 K/mm3 (140-440); Red Blood Count 2.72 M/mm3 (3.65-5.03)
[2019-04-21] MEDS: INSULIN LISPRO 100 UNIT/ML SUB-Q SCH ×3 (10:03→19:02)
[2019-04-21] MEDS: INSULIN NPH/REGULAR 70/30 INJ SUB-Q SCH ×2 (10:05→19:03)
[2019-04-21] MEDS: METOPROLOL TARTRATE 50 MG TAB PO SCH ×2 (10:09→19:03)
[2019-04-21] MEDS: FERROUS SULFATE 325 MG TAB PO SCH (10:09)
[2019-04-21] MEDS: CILOSTAZOL 100 MG TAB PO SCH ×2 (10:10→21:25)
[2019-04-21] MEDS: FOLIC ACID 1 MG TAB PO SCH (10:11)
[2019-04-21] MEDS: ASPIRIN 81 MG TAB CHEW PO SCH (10:12)
[2019-04-21] MEDS: allopurinoL 100 MG TAB PO SCH (10:12)
[2019-04-21] MEDS: APIXABAN 5 MG TAB PO SCH ×2 (10:12→21:25)
[2019-04-21] MEDS: PANTOPRAZOLE 40 MG TAB PO SCH (10:14)
--- NOTE | 2019-04-21 11:45 | Progress Note ---
Assessment and Plan Agree with present cardiac management. Consider titration of BB for HR optimization if BPs will permit, can consider amiodarone if BPs remain borderline hypotensive. Cont observation on telemetry. The patient has been seen in conjunction with Dr. MOISÉS Negron who agrees with the assessment and plan of care. - Patient Problems (1) Altered mental status Current Visit: Yes Status: Acute (2) Acute heart failure with reduced ejection fraction Current Visit: Yes Status: Acute (3) Paroxysmal atrial fibrillation with RVR Current Visit: Yes Status: Acute (4) Lung cancer Current Visit: Yes Status: Chronic (5) Pleural effusion Current Visit: Yes Status: Acute (6) CAD (coronary artery disease) Current Visit: Yes Status: Chronic Qualifiers: Coronary Disease-Associated Artery/Lesion type: [place] artery (7) Stented coronary artery Current Visit: Yes Status: Chronic (8) Cardiomyopathy Current Visit: Yes Status: Chronic (9) Abnormal stress test Current Visit: Yes Status: Chronic (10) PAD (peripheral artery disease) Current Visit: Yes Status: Chronic (11) Diabetes Current Visit: Yes Status: Chronic (12) Former tobacco use Current Visit: Yes Status: Chronic (13) Anemia Current Visit: Yes Status: Chronic (14) Hyperkalemia Current Visit: Yes Status: Acute Subjective Date of service: 04/21/19 Principal diagnosis: Altered mental status. Interval history: pt resting in bed, no current cardiac complaints, remains withdrawn and lethargic. daughter at bedside. tele reviewed - in SR with HR 80s, infrequent bouts of paroxysmal AFib noted overnight. Objective Last Vital Signs Temp 98.3 F 04/21/19 08:27 Pulse 108 H 04/21/19 10:12 Resp 18 04/21/19 08:27 BP 113/46 04/21/19 10:12 Pulse Ox 98 04/21/19 02:00 - Physical Examination General: No Apparent Distress HEENT: Positive: PERRL Neck: Positive: neck supple, trachea midline Cardiac: Positive: Reg Rate and Rhythm, S1/S2 Lungs: Positive: Decreased Breath Sounds - Labs and Meds CBC 04/21/19 Range/Units 06:34 WBC 12.2 H (4.5-11.0) K/mm3 RBC 2.72 L (3.65-5.03) M/mm3 Hgb 7.0 L (10.1-14.3) gm/dl Hct 21.6 L (30.3-42.9) % Plt Count 403 (140-440) K/mm3 Lymph # 1.7 (1.2-5.4) K/mm3 [place] # 0.8 (0.0-0.8) K/mm3 Eos # 0.5 H (0.0-0.4) K/mm3 Baso # 0.1 (0.0-0.1) K/mm3 Comprehensive Metabolic Panel 04/21/19 Range/Units 06:34 Sodium 137 (137-145) mmol/L Potassium 5.4 H (3.6-5.0) mmol/L Chloride 102.3 (98-107) mmol/L Carbon Dioxide 23 (22-30) mmol/L BUN 41 H (7-17) mg/dL Creatinine 1.3 H (0.7-1.2) mg/dL Glucose 101 H (65-100) mg/dL Calcium 8.3 L (8.4-10.2) mg/dL - Imaging and Cardiology EKG: report reviewed, image reviewed Echo: report reviewed (02/19/2019 showed EF 30-35%, impaired relaxation, mild MR and TR, RVSP 46mmHg, basal anterior, mid anterior and apical anterior wall segments hypokinetic, mid inferoseptal and apical septal wall segments akinetic. ) - EKG Sinus rhythms and dysrhythmias: sinus rhythm
--- NOTE | 2019-04-21 12:07 | Progress Note ---
Assessment and Plan Patient is a 73 y/o woman w/ a h/o CHF, COPD, DM, HTN, CAD, PAF, squamous cell lung CA, who p/w altered mental status. According to the patient's clinical findings, it is likely that she has metabolic encephalopathy. To support this diagnosis, the patient is noted to have elevated WBC. Patient's daughter states that drainage from the chest tube has been cloudy recently. Plan: 1. Metabolic encephalopathy: - MRI brain: no acute abnormality - Mental status has continued to improved since admission. - Continue to treat and investigate underlying infection per primary team. Recommend ID consult. - EEG: generalized slowing. No seizures or epileptiform activity. - Recommend PT/OT - Will sign off. Please call with any questions Thank you for allowing me to take part in the care of this patient. Brian Salomon MD Neurology Subjective Date of service: 04/21/19 Principal diagnosis: Altered mental status. Interval history: No acute events overnight. Mental status improved since yesterday. Patient more alert and awake today. Objective - Exam Narrative Exam: Patient is alert, awake, oriented to age, self and daughter, follows 2-step commands. PERRL, EOMI, VFF, no facial weakness noted, tongue midline, b/l intact to LT. No dysarthria or aphasia noted. 5/5 strength in UE, 3/5 in LE, which is chronic per daughter. B/l intact to LT. B/l intact to FTN. 2+ reflexes thr oughout. - Vital Sign Vital Signs - 12hr 04/21/19 04/21/19 04/21/19 02:00 05:00 08:27 Temperature 98.0 F 98.3 F Pulse Rate Pulse Rate [ 76 Apical] Respiratory 18 18 18 Rate Blood Pressure 138/52 113/46 O2 Sat by Pulse 98 Oximetry 04/21/19 04/21/19 10:09 10:12 Temperature Pulse Rate 108 H 108 H Pulse Rate [ Apical] Respiratory Rate Blood Pressure 113/46 113/46 O2 Sat by Pulse Oximetry - General Apperance Constitutional: comfortable - EENT EENT: ATNC, PERRL, mucous membranes moist - Respiratory Respiratory: lungs clear, normal breath sounds - Cardiovascular Cardiovascular: regular rate, normal S1, normal S2 Extremities: no peripheral edema bilat, no clubbing, cyanosis - Gastrointestinal Gastrointestinal: normoactive bowel sounds, soft, non-tender - Integumentary Integumentary: normal - Musculoskeletal Musculoskeletal: no pain, normal range of motion - Laboratory Findings CBC and BMP: 04/21/19 06:34 04/21/19 06:34 Abnormal Lab Findings: Abnormal Labs 04/17/19 04/17/19 04/17/19 18:31 18:31 18:31 WBC 18.9 H RBC 3.53 L Hgb 9.0 L Hct 28.2 L MCV MCH 26 L RDW 20.8 H Plt Count 470 H Lymph % (Auto) [place] # Eos # Seg Neutrophils % Seg Neuts % (Manual) 88.0 H Lymphocytes % (Manual) 4.0 L Seg Neutrophils # Seg Neutrophils # Man 16.6 H Lymphocytes # (Manual) 0.8 L Monocytes # (Manual) 0.9 H Eosinophils # (Manual) 0.6 H PT INR Sodium 134 L Potassium 5.6 H Carbon Dioxide 19 L BUN 45 H Creatinine 1.3 H Glucose POC Glucose Calcium 8.1 L CK-MB (CK-2) CK-MB (CK-2) Rel Index Total Protein Albumin 1.8 L TSH 5.540 H 04/18/19 04/18/19 04/18/19 05:59 05:59 05:59 WBC 16.5 H RBC 3.30 L Hgb 8.2 L Hct 25.8 L MCV 78 L MCH 25 L RDW 20.7 H Plt Count Lymph % (Auto) 10.7 L [place] # 1.2 H Eos # Seg Neutrophils % 79.8 H Seg Neuts % (Manual) Lymphocytes % (Manual) Seg Neutrophils # 13.2 H Seg Neutrophils # Man Lymphocytes # (Manual) Monocytes # (Manual) Eosinophils # (Manual) PT 15.9 H INR 1.25 H Sodium Potassium 5.3 H Carbon Dioxide BUN 42 H Creatinine Glucose POC Glucose Calcium CK-MB (CK-2) CK-MB (CK-2) Rel Index Total Protein Albumin TSH 04/18/19 04/18/19 04/18/19 07:25 11:29 16:32 WBC RBC Hgb Hct MCV MCH RDW Plt Count Lymph % (Auto) [place] # Eos # Seg Neutrophils % Seg Neuts % (Manual) Lymphocytes % (Manual) Seg Neutrophils # Seg Neutrophils # Man Lymphocytes # (Manual) Monocytes # (Manual) Eosinophils # (Manual) PT INR Sodium Potassium Carbon Dioxide BUN Creatinine Glucose POC Glucose 69 L 130 H 151 H Calcium CK-MB (CK-2) CK-MB (CK-2) Rel Index Total Protein Albumin TSH 04/19/19 04/19/19 04/19/19 04:42 04:42 07:25 WBC 13.5 H RBC 2.91 L Hgb 7.4 L Hct 23.3 L MCV MCH 25 L RDW 20.5 H Plt Count Lymph % (Auto) [place] # Eos # Seg Neutrophils % Seg Neuts % (Manual) Lymphocytes % (Manual) Seg Neutrophils # Seg Neutrophils # Man Lymphocytes # (Manual) Monocytes # (Manual) Eosinophils # (Manual) PT INR Sodium Potassium 5.5 H Carbon Dioxide 21 L BUN 38 H Creatinine Glucose 111 H POC Glucose 130 H Calcium 8.0 L CK-MB (CK-2) CK-MB (CK-2) Rel Index Total Protein 6.1 L Albumin 1.7 L TSH 04/19/19 04/19/19 04/19/19 11:17 11:20 16:11 WBC RBC Hgb Hct MCV MCH RDW Plt Count Lymph % (Auto) [place] # Eos # Seg Neutrophils % Seg Neuts % (Manual) Lymphocytes % (Manual) Seg Neutrophils # Seg Neutrophils # Man Lymphocytes # (Manual) Monocytes # (Manual) Eosinophils # (Manual) PT INR Sodium Potassium Carbon Dioxide BUN Creatinine Glucose POC Glucose 203 H 190 H Calcium CK-MB (CK-2) 4.1 H CK-MB (CK-2) Rel Index 12.8 H Total Protein Albumin TSH 04/19/19 04/20/19 04/20/19 20:57 12:26 16:36 WBC RBC Hgb Hct MCV MCH RDW Plt Count Lymph % (Auto) [place] # Eos # Seg Neutrophils % Seg Neuts % (Manual) Lymphocytes % (Manual) Seg Neutrophils # Seg Neutrophils # Man Lymphocytes # (Manual) Monocytes # (Manual) Eosinophils # (Manual) PT INR Sodium Potassium Carbon Dioxide BUN Creatinine Glucose POC Glucose 164 H 182 H 242 H Calcium CK-MB (CK-2) CK-MB (CK-2) Rel Index Total Protein Albumin TSH 04/20/19 04/20/19 04/21/19 21:13 22:34 05:19 WBC RBC Hgb Hct MCV MCH RDW Plt Count Lymph % (Auto) [place] # Eos # Seg Neutrophils % Seg Neuts % (Manual) Lymphocytes % (Manual) Seg Neutrophils # Seg Neutrophils # Man Lymphocytes # (Manual) Monocytes # (Manual) Eosinophils # (Manual) PT INR Sodium Potassium Carbon Dioxide BUN Creatinine Glucose POC Glucose 43 L 115 H 120 H Calcium CK-MB (CK-2) CK-MB (CK-2) Rel Index Total Protein Albumin TSH 04/21/19 04/21/19 04/21/19 06:34 06:34 08:37 WBC 12.2 H RBC 2.72 L Hgb 7.0 L Hct 21.6 L MCV MCH 26 L RDW 20.0 H Plt Count Lymph % (Auto) [place] # Eos # 0.5 H Seg Neutrophils % 74.4 H Seg Neuts % (Manual) Lymphocytes % (Manual) Seg Neutrophils # 9.0 H Seg Neutrophils # Man Lymphocytes # (Manual) Monocytes # (Manual) Eosinophils # (Manual) PT INR Sodium Potassium 5.4 H Carbon Dioxide BUN 41 H Creatinine 1.3 H Glucose 101 H POC Glucose 134 H Calcium 8.3 L CK-MB (CK-2) CK-MB (CK-2) Rel Index Total Protein Albumin TSH
[2019-04-21] MEDS: cefTRIAXone/NS 1 GM/50 ML 1 GM/50 ML BAG IV SCH (16:06)
--- NOTE | 2019-04-21 19:50 | Progress Note ---
Assessment and Plan - Patient Problems (1) Altered mental status Current Visit: Yes Status: Acute Qualifiers: Altered mental status type: unspecified Qualified Code(s): R41.82 - Altered mental status, unspecified Plan to address problem: MRI completed., and reviewed, no acute findings. (2) Anemia Current Visit: Yes Status: Chronic Qualifiers: Anemia type: unspecified type Qualified Code(s): D64.9 - Anemia, unspecified Plan to address problem: monitor labs. (3) Lung cancer Current Visit: Yes Status: Acute Plan to address problem: supportive. (4) Dysphagia Current Visit: Yes Status: Acute Plan to address problem: Swallow /speech eval. Subjective Date of service: 04/21/19 Principal diagnosis: Altered mental status. Interval history: Patient seen/examined, resting in bed, daughter at the bed side, case d/w her.she presented to the ER from the [place], due to AMS. she has hx of lung cancer/pleurex catheter, due to pleural fluid.CT of the brain negative.pleurex drainage straw color. 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 Patient seen/examined, earlier this am, case d/w daughter at the bed side. Since then, HR up, cardiology consulted, will transfer to tele floor.as per cardiology rec.Appreciate cardiology/neuro input.Will continue IV ABX, until culture returns. Patient has been non ambulatory for years, and Pt/OT may not add much, but rec appreciated. Patient seen/examined, resting in bed, records/EEG /neurology notes reviewed, case d/w her daughter at the bed side.awaiting PT/OT eval/Tx. will do am labs. Patient seen/examined, resting in bed, daughter at the bed side, case d/w both. H/H low , and will need replacement.The daughter wishes against returning bask to the [facility].She will take her mom home ,with home health, Objective - Constitutional Vitals: Vital Signs - 12hr 04/21/19 04/21/19 04/21/19 08:27 10:09 10:12 Temperature 98.3 F Pulse Rate 108 H 108 H Respiratory 18 Rate Blood Pressure 113/46 113/46 113/46 04/21/19 04/21/19 04/21/19 12:26 16:04 19:03 Temperature Pulse Rate 78 76 Respiratory Rate Blood Pressure 135/55 135/55 135/55 General appearance: Present: mild distress, cachectic - EENT Eyes: PERRL, EOM intact ENT: hearing intact, clear oral mucosa Ears: bilateral: normal - Neck Neck: supple, normal ROM - Respiratory Respiratory effort: normal Respiratory: bilateral: CTA - Breasts Breasts: deferred - Cardiovascular Rhythm: regular Heart Sounds: Present: S1 & S2. Absent: gallop, rub Extremities: pulses intact, No edema, normal color, Full ROM - Gastrointestinal General gastrointestinal: Present: soft, non-tender, non-distended, normal bowel sounds Rectal Exam: deferred - Genitourinary Female genitourinary: deferred - Integumentary Integumentary: clear, warm, dry - Musculoskeletal Musculoskeletal: 1, strength equal bilaterally - Neurologic Neurologic: moves all extremities - Psychiatric Psychiatric: appropriate mood/affect - Labs CBC & Chem 7: 04/21/19 06:34 04/21/19 06:34 Labs: Abnormal lab results 04/20/19 04/20/19 04/21/19 Range/Units 21:13 22:34 05:19 WBC (4.5-11.0) K/mm3 RBC (3.65-5.03) M/mm3 Hgb (10.1-14.3) gm/dl Hct (30.3-42.9) % MCH (28-32) pg RDW (13.2-15.2) % Eos # (0.0-0.4) K/mm3 Seg Neutrophils % (40.0-70.0) % Seg Neutrophils # (1.8-7.7) K/mm3 Potassium (3.6-5.0) mmol/L BUN (7-17) mg/dL Creatinine (0.7-1.2) mg/dL Glucose (65-100) mg/dL POC Glucose 43 L 115 H 120 H (70-105) Calcium (8.4-10.2) mg/dL 04/21/19 04/21/19 04/21/19 Range/Units 06:34 06:34 08:37 WBC 12.2 H (4.5-11.0) K/mm3 RBC 2.72 L (3.65-5.03) M/mm3 Hgb 7.0 L (10.1-14.3) gm/dl Hct 21.6 L (30.3-42.9) % MCH 26 L (28-32) pg RDW 20.0 H (13.2-15.2) % Eos # 0.5 H (0.0-0.4) K/mm3 Seg Neutrophils % 74.4 H (40.0-70.0) % Seg Neutrophils # 9.0 H (1.8-7.7) K/mm3 Potassium 5.4 H (3.6-5.0) mmol/L BUN 41 H (7-17) mg/dL Creatinine 1.3 H (0.7-1.2) mg/dL Glucose 101 H (65-100) mg/dL POC Glucose 134 H (70-105) Calcium 8.3 L (8.4-10.2) mg/dL 04/21/19 04/21/19 Range/Units 12:36 17:05 WBC (4.5-11.0) K/mm3 RBC (3.65-5.03) M/mm3 Hgb (10.1-14.3) gm/dl Hct (30.3-42.9) % MCH (28-32) pg RDW (13.2-15.2) % Eos # (0.0-0.4) K/mm3 Seg Neutrophils % (40.0-70.0) % Seg Neutrophils # (1.8-7.7) K/mm3 Potassium (3.6-5.0) mmol/L BUN (7-17) mg/dL Creatinine (0.7-1.2) mg/dL Glucose (65-100) mg/dL POC Glucose 205 H 318 H (70-105) Calcium (8.4-10.2) mg/dL
[2019-04-21] MEDS ORDERED: SODIUM CHLORIDE 0.9% 500 ML 500 ML IV NR (19:52)
[2019-04-22] MEDS: INSULIN LISPRO 100 UNIT/ML SUB-Q SCH ×6 (01:28→23:31)
[2019-04-22] MEDS ORDERED: FUROSEMIDE 20 MG/2 ML INJ IV ONE (04:09)
[2019-04-22] MEDS: hydrALAZINE 25 MG TAB PO SCH ×3 (06:43→23:20)
[2019-04-22] MEDS: INSULIN NPH/REGULAR 70/30 INJ SUB-Q SCH ×2 (09:26→18:10)
[2019-04-22] MEDS: cefTRIAXone/NS 1 GM/50 ML 1 GM/50 ML BAG IV SCH (09:28)
[2019-04-22] MEDS: allopurinoL 100 MG TAB PO SCH (09:29)
[2019-04-22] MEDS: ASPIRIN 81 MG TAB CHEW PO SCH (09:29)
[2019-04-22] MEDS: PANTOPRAZOLE 40 MG TAB PO SCH (09:29)
[2019-04-22] MEDS: APIXABAN 5 MG TAB PO SCH ×2 (09:29→23:20)
[2019-04-22] MEDS: FERROUS SULFATE 325 MG TAB PO SCH (09:29)
[2019-04-22] MEDS: FOLIC ACID 1 MG TAB PO SCH (09:29)
[2019-04-22] MEDS: CILOSTAZOL 100 MG TAB PO SCH ×2 (09:30→23:20)
[2019-04-22] MEDS: METOPROLOL TARTRATE 50 MG TAB PO SCH ×2 (09:31→18:09)
--- NOTE | 2019-04-22 11:06 | Progress Note ---
Assessment and Plan Currently stable cardiac status. Cont present cardiac management. Nothing further to add from cardiac perspective at this time. Will follow on as needed basis. The patient has been seen in conjunction with Dr. Munir Negron who agrees with the assessment and plan of care. - Patient Problems (1) Altered mental status Current Visit: Yes Status: Acute (2) Acute heart failure with reduced ejection fraction Current Visit: Yes Status: Acute (3) Paroxysmal atrial fibrillation with RVR Current Visit: Yes Status: Acute (4) Lung cancer Current Visit: Yes Status: Chronic (5) Pleural effusion Current Visit: Yes Status: Acute (6) CAD (coronary artery disease) Current Visit: Yes Status: Chronic Qualifiers: Coronary Disease-Associated Artery/Lesion type: [place] artery (7) Stented coronary artery Current Visit: Yes Status: Chronic (8) Cardiomyopathy Current Visit: Yes Status: Chronic (9) Abnormal stress test Current Visit: Yes Status: Chronic (10) PAD (peripheral artery disease) Current Visit: Yes Status: Chronic (11) Diabetes Current Visit: Yes Status: Chronic (12) Former tobacco use Current Visit: Yes Status: Chronic (13) Anemia Current Visit: Yes Status: Chronic (14) Hyperkalemia Current Visit: Yes Status: Acute Subjective Date of service: 04/22/19 Principal diagnosis: Altered mental status. Interval history: pt resting in bed, no current cardiac complaints, appears more alert today. tele reviewed - in SR with HR 80s, no paroxysmal afib noted overnight. Objective Last Vital Signs Temp 98.1 F 04/22/19 07:21 Pulse 73 04/22/19 09:31 Resp 18 04/22/19 07:21 BP 141/62 04/22/19 09:31 Pulse Ox 100 04/22/19 07:21 - Physical Examination General: No Apparent Distress HEENT: Positive: PERRL Neck: Positive: neck supple, trachea midline Cardiac: Positive: Reg Rate and Rhythm, S1/S2 Lungs: Positive: Decreased Breath Sounds - Imaging and Cardiology EKG: report reviewed, image reviewed Echo: report reviewed (02/19/2019 showed EF 30-35%, impaired relaxation, mild MR and TR, RVSP 46mmHg, basal anterior, mid anterior and apical anterior wall segments hypokinetic, mid inferoseptal and apical septal wall segments akinetic. ) - EKG Sinus rhythms and dysrhythmias: sinus rhythm
--- NOTE | 2019-04-22 22:15 | Progress Note ---
Assessment and Plan - Patient Problems (1) Altered mental status Current Visit: Yes Status: Acute Qualifiers: Altered mental status type: unspecified Qualified Code(s): R41.82 - Altered mental status, unspecified Plan to address problem: MRI completed., and reviewed, no acute findings. (2) Anemia Current Visit: Yes Status: Chronic Qualifiers: Anemia type: unspecified type Qualified Code(s): D64.9 - Anemia, unspecified Plan to address problem: monitor labs. (3) Lung cancer Current Visit: Yes Status: Acute Plan to address problem: supportive. (4) Dysphagia Current Visit: Yes Status: Acute Plan to address problem: Swallow /speech eval. Subjective Date of service: 04/22/19 Principal diagnosis: Altered mental status. Interval history: Patient seen/examined, resting in bed, daughter at the bed side, case d/w her.she presented to the ER from the [place], due to AMS. she has hx of lung cancer/pleurex catheter, due to pleural fluid.CT of the brain negative.pleurex drainage straw color. 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 Patient seen/examined, earlier this am, case d/w daughter at the bed side. Since then, HR up, cardiology consulted, will transfer to tele floor.as per cardiology rec.Appreciate cardiology/neuro input.Will continue IV ABX, until culture returns. Patient has been non ambulatory for years, and Pt/OT may not add much, but rec appreciated. Patient seen/examined, resting in bed, records/EEG /neurology notes reviewed, case d/w her daughter at the bed side.awaiting PT/OT eval/Tx. will do am labs. Patient seen/examined, resting in bed, daughter at the bed side, case d/w both. H/H low , and will need replacement.The daughter wishes against returning bask to the [facility].She will take her mom home ,with home health, Patient seen/examined, resting in bed, s/p blood transfusion. Daughter at the bed side, case d/w her.will check new labs tomorrow. Objective - Constitutional Vitals: Vital Signs - 12hr 04/22/19 04/22/19 04/22/19 12:04 14:09 15:06 Temperature 98.3 F 98.0 F Pulse Rate 75 75 71 Respiratory 18 18 Rate Blood Pressure 143/63 143/63 122/51 O2 Sat by Pulse 100 100 Oximetry 04/22/19 04/22/19 18:09 20:37 Temperature 99.0 F Pulse Rate 73 Respiratory 16 Rate Blood Pressure 147/63 139/60 O2 Sat by Pulse Oximetry General appearance: Present: mild distress, well-nourished - EENT Eyes: PERRL, EOM intact ENT: hearing intact, clear oral mucosa Ears: bilateral: normal - Neck Neck: supple, normal ROM - Respiratory Respiratory effort: normal Respiratory: bilateral: CTA - Breasts Breasts: deferred - Cardiovascular Rhythm: regular Heart Sounds: Present: S1 & S2. Absent: gallop, rub Extremities: pulses intact, No edema, normal color, Full ROM - Gastrointestinal General gastrointestinal: Present: soft, non-tender, non-distended, normal bowel sounds Rectal Exam: deferred - Genitourinary Female genitourinary: deferred - Integumentary Integumentary: clear, warm, dry - Musculoskeletal Musculoskeletal: 1, strength equal bilaterally - Neurologic Neurologic: moves all extremities - Psychiatric Psychiatric: appropriate mood/affect - Labs CBC & Chem 7: 04/21/19 06:34 04/21/19 06:34 Labs: Abnormal lab results 04/21/19 04/22/19 04/22/19 Range/Units 20:47 00:34 09:02 POC Glucose 151 H 122 H (70-105) Crossmatch See Detail 04/22/19 04/22/19 04/22/19 Range/Units 12:34 17:17 20:50 POC Glucose 229 H 170 H 157 H (70-105) Crossmatch
[2019-04-23] MEDS: hydrALAZINE 25 MG TAB PO SCH ×3 (05:47→22:21)
[2019-04-23 08:04] LABS: Total Protein,Body Fluid < 3.0 (15.0-45.0)
[2019-04-23 08:06] LABS: Basophils # (Auto) 0.1 K/mm3 (0.0-0.1); Eosinophils # (Auto) 0.2 K/mm3 (0.0-0.4); Eosinophils % (Auto) 1.4 % (0.0-4.3); Hematocrit 33.3 % (30.3-42.9); Hemoglobin 10.8 gm/dl (10.1-14.3); Lymphocytes # (Auto) 1.4 K/mm3 (1.2-5.4); Lymphocytes % (Auto) 9.6 % (13.4-35.0); Mean Corpuscular HGB Conc 32 % (30-34); Mean Corpuscular Volume 82 fl (79-97); Monocytes # (Auto) 1.1 K/mm3 (0.0-0.8); Monocytes % (Auto) 7.5 % (0.0-7.3); Platelet Count 425 K/mm3 (140-440); Red Blood Count 4.05 M/mm3 (3.65-5.03); Red Cell Distribution Width 18.9 % (13.2-15.2)
[2019-04-23 08:34] LABS: Calcium 8.7 mg/dL (8.4-10.2)
[2019-04-23] MEDS: INSULIN LISPRO 100 UNIT/ML SUB-Q SCH ×4 (10:16→21:11)
[2019-04-23] MEDS: CILOSTAZOL 100 MG TAB PO SCH ×2 (10:17→22:20)
[2019-04-23] MEDS: FERROUS SULFATE 325 MG TAB PO SCH (10:17)
[2019-04-23] MEDS: ASPIRIN 81 MG TAB CHEW PO SCH (10:18)
[2019-04-23] MEDS: APIXABAN 5 MG TAB PO SCH ×2 (10:18→22:20)
[2019-04-23] MEDS: PANTOPRAZOLE 40 MG TAB PO SCH (10:18)
[2019-04-23] MEDS: FOLIC ACID 1 MG TAB PO SCH (10:18)
[2019-04-23] MEDS: allopurinoL 100 MG TAB PO SCH (10:18)
[2019-04-23] MEDS: INSULIN NPH/REGULAR 70/30 INJ SUB-Q SCH ×2 (10:24→17:52)
[2019-04-23] MEDS: cefTRIAXone/NS 1 GM/50 ML 1 GM/50 ML BAG IV SCH (10:42)
[2019-04-23] MEDS: METOPROLOL TARTRATE 50 MG TAB PO SCH ×2 (10:42→17:53)
--- NOTE | 2019-04-24 00:49 | Progress Note ---
Assessment and Plan - Patient Problems (1) Altered mental status Current Visit: Yes Status: Acute Qualifiers: Altered mental status type: unspecified Qualified Code(s): R41.82 - Altered mental status, unspecified Plan to address problem: MRI completed., and reviewed, no acute findings. better by day. (2) Anemia Current Visit: Yes Status: Chronic Qualifiers: Anemia type: unspecified type Qualified Code(s): D64.9 - Anemia, unspecified Plan to address problem: monitor labs. (3) Lung cancer Current Visit: Yes Status: Acute Plan to address problem: supportive. (4) Dysphagia Current Visit: Yes Status: Acute Plan to address problem: Swallow /speech eval. Subjective Date of service: 04/23/19 Principal diagnosis: Altered mental status. Interval history: Patient seen/examined, resting in bed, daughter at the bed side, case d/w her.she presented to the ER from the [place], due to AMS. she has hx of lung cancer/pleurex catheter, due to pleural fluid.CT of the brain negative.pleurex drainage straw color. 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 Patient seen/examined, earlier this am, case d/w daughter at the bed side. Since then, HR up, cardiology consulted, will transfer to tele floor.as per cardiology rec.Appreciate cardiology/neuro input.Will continue IV ABX, until culture returns. Patient has been non ambulatory for years, and Pt/OT may not add much, but rec appreciated. Patient seen/examined, resting in bed, records/EEG /neurology notes reviewed, case d/w her daughter at the bed side.awaiting PT/OT eval/Tx. will do am labs. Patient seen/examined, resting in bed, daughter at the bed side, case d/w both. H/H low , and will need replacement.The daughter wishes against returning bask to the [facility].She will take her mom home ,with home health, Patient seen/examined, resting in bed, s/p blood transfusion. Daughter at the bed side, case d/w her.will check new labs tomorrow. Patient seen, with late entry. Labs reviewed, cultures negative.will start planning d/c home with daughter, as she does not want her to go back to the [place]. Objective - Constitutional Vitals: Vital Signs - 12hr 04/23/19 04/23/19 04/23/19 13:44 14:50 17:53 Temperature Pulse Rate 73 81 Respiratory Rate Blood Pressure 149/58 154/66 O2 Sat by Pulse 100 Oximetry 04/23/19 04/23/19 19:43 21:19 Temperature 98.6 F Pulse Rate 83 Respiratory 20 Rate Blood Pressure 137/57 O2 Sat by Pulse 100 98 Oximetry General appearance: Present: mild distress, cachectic - EENT Eyes: PERRL, EOM intact ENT: hearing intact, clear oral mucosa Ears: bilateral: normal - Neck Neck: supple, normal ROM - Respiratory Respiratory effort: normal Respiratory: bilateral: CTA - Breasts Breasts: deferred - Cardiovascular Rhythm: regular Heart Sounds: Present: S1 & S2. Absent: gallop, rub Extremities: pulses intact, No edema, normal color, Full ROM - Gastrointestinal General gastrointestinal: Present: soft, non-tender, non-distended, normal bowel sounds Rectal Exam: deferred - Genitourinary Female genitourinary: deferred - Integumentary Integumentary: clear, warm, dry - Musculoskeletal Musculoskeletal: 1, strength equal bilaterally - Neurologic Neurologic: moves all extremities - Psychiatric Psychiatric: appropriate mood/affect - Labs CBC & Chem 7: 04/23/19 07:24 04/23/19 07:24 Labs: Abnormal lab results 04/18/19 04/23/19 04/23/19 Range/Units 23:00 07:24 07:24 WBC 14.4 H (4.5-11.0) K/mm3 MCH 27 L (28-32) pg RDW 18.9 H (13.2-15.2) % Lymph % (Auto) 9.6 L (13.4-35.0) % [place] % (Auto) 7.5 H (0.0-7.3) % [place] # 1.1 H (0.0-0.8) K/mm3 Seg Neutrophils % 80.5 H (40.0-70.0) % Seg Neutrophils # 11.5 H (1.8-7.7) K/mm3 Sodium 135 L (137-145) mmol/L Potassium 5.2 H (3.6-5.0) mmol/L BUN 46 H (7-17) mg/dL Glucose 213 H (65-100) mg/dL POC Glucose (70-105) Fluid Total Protein < 3.0 L (15.0-45.0) 04/23/19 04/23/19 04/23/19 Range/Units 08:19 11:46 17:48 WBC (4.5-11.0) K/mm3 MCH (28-32) pg RDW (13.2-15.2) % Lymph % (Auto) (13.4-35.0) % [place] % (Auto) (0.0-7.3) % [place] # (0.0-0.8) K/mm3 Seg Neutrophils % (40.0-70.0) % Seg Neutrophils # (1.8-7.7) K/mm3 Sodium (137-145) mmol/L Potassium (3.6-5.0) mmol/L BUN (7-17) mg/dL Glucose (65-100) mg/dL POC Glucose 200 H 268 H 61 L (70-105) Fluid Total Protein (15.0-45.0) 04/23/19 Range/Units 19:56 WBC (4.5-11.0) K/mm3 MCH (28-32) pg RDW (13.2-15.2) % Lymph % (Auto) (13.4-35.0) % [place] % (Auto) (0.0-7.3) % [place] # (0.0-0.8) K/mm3 Seg Neutrophils % (40.0-70.0) % Seg Neutrophils # (1.8-7.7) K/mm3 Sodium (137-145) mmol/L Potassium (3.6-5.0) mmol/L BUN (7-17) mg/dL Glucose (65-100) mg/dL POC Glucose 153 H (70-105) Fluid Total Protein (15.0-45.0)
[2019-04-24] MEDS: hydrALAZINE 25 MG TAB PO SCH ×3 (05:53→21:13)
[2019-04-24] MEDS: METOPROLOL TARTRATE 50 MG TAB PO SCH ×2 (08:00→17:41)
[2019-04-24] MEDS: INSULIN LISPRO 100 UNIT/ML SUB-Q SCH ×4 (08:10→22:59)
[2019-04-24] MEDS: INSULIN NPH/REGULAR 70/30 INJ SUB-Q SCH ×2 (08:11→17:41)
[2019-04-24] MEDS: cefTRIAXone/NS 1 GM/50 ML 1 GM/50 ML BAG IV SCH (10:49)
[2019-04-24] MEDS: ASPIRIN 81 MG TAB CHEW PO SCH (10:58)
[2019-04-24] MEDS: FOLIC ACID 1 MG TAB PO SCH (10:58)
[2019-04-24] MEDS: allopurinoL 100 MG TAB PO SCH (10:58)
[2019-04-24] MEDS: APIXABAN 5 MG TAB PO SCH ×2 (10:58→21:13)
[2019-04-24] MEDS: CILOSTAZOL 100 MG TAB PO SCH ×2 (10:58→21:13)
[2019-04-24] MEDS: FERROUS SULFATE 325 MG TAB PO SCH (10:58)
[2019-04-24] MEDS: PANTOPRAZOLE 40 MG TAB PO SCH (11:00)
[2019-04-24] MEDS: ACETAMINOPHEN 325 MG TAB PO PRN (13:45)
--- NOTE | 2019-04-24 16:19 | Progress Note ---
Assessment and Plan - Patient Problems (1) Altered mental status Current Visit: Yes Status: Acute Qualifiers: Altered mental status type: unspecified Qualified Code(s): R41.82 - Altered mental status, unspecified Plan to address problem: MRI completed., and reviewed, no acute findings. better by day. (2) Anemia Current Visit: Yes Status: Chronic Qualifiers: Anemia type: unspecified type Qualified Code(s): D64.9 - Anemia, unspecified Plan to address problem: monitor labs. (3) Lung cancer Current Visit: Yes Status: Acute Plan to address problem: supportive. (4) Dysphagia Current Visit: Yes Status: Acute Plan to address problem: Swallow /speech eval. Subjective Date of service: 04/24/19 Principal diagnosis: Altered mental status. Interval history: Patient seen/examined, resting in bed, daughter at the bed side, case d/w her.she presented to the ER from the [place], due to AMS. she has hx of lung cancer/pleurex catheter, due to pleural fluid.CT of the brain negative.pleurex drainage straw color. 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 Patient seen/examined, earlier this am, case d/w daughter at the bed side. Since then, HR up, cardiology consulted, will transfer to tele floor.as per cardiology rec.Appreciate cardiology/neuro input.Will continue IV ABX, until culture returns. Patient has been non ambulatory for years, and Pt/OT may not add much, but rec appreciated. Patient seen/examined, resting in bed, records/EEG /neurology notes reviewed, case d/w her daughter at the bed side.awaiting PT/OT eval/Tx. will do am labs. Patient seen/examined, resting in bed, daughter at the bed side, case d/w both. H/H low , and will need replacement.The daughter wishes against returning bask to the [facility].She will take her mom home ,with home health, Patient seen/examined, resting in bed, s/p blood transfusion. Daughter at the bed side, case d/w her.will check new labs tomorrow. Patient seen, with late entry. Labs reviewed, cultures negative.will start planning d/c home with daughter, as she does not want her to go back to the NH. Patient seen/examined, food tray in front of her, i have personally tried to feed her, and she ate some of her food there has to be more encouragement from the staff, to convince her to eat.Will plan discharge plans with the daughter, with home PT/OT. I also think that she will do better with sofr mechanical diet ,seeing the she had to chew for a long time before swallowing. Objective - Constitutional Vitals: Vital Signs - 12hr 04/24/19 04/24/19 04/24/19 04:30 07:47 10:00 Temperature 98.1 F 97.5 F L Pulse Rate 83 91 H Pulse Rate [ 83 Apical] Pulse Rate [ 83 Left Radial] Pulse Rate [ 83 Right Radial] Respiratory 20 18 21 Rate Blood Pressure 151/59 148/61 O2 Sat by Pulse 96 Oximetry 04/24/19 04/24/19 10:59 14:42 Temperature Pulse Rate 83 86 Pulse Rate [ Apical] Pulse Rate [ Left Radial] Pulse Rate [ Right Radial] Respiratory Rate Blood Pressure 148/61 147/66 O2 Sat by Pulse Oximetry General appearance: Present: mild distress, well-nourished - EENT Eyes: PERRL, EOM intact ENT: hearing intact, clear oral mucosa Ears: bilateral: normal - Neck Neck: supple, normal ROM - Respiratory Respiratory effort: normal Respiratory: bilateral: CTA - Breasts Breasts: deferred - Cardiovascular Rhythm: regular Heart Sounds: Present: S1 & S2. Absent: gallop, rub Extremities: pulses intact, No edema, normal color, Full ROM - Gastrointestinal General gastrointestinal: Present: soft, non-tender, non-distended, normal bowel sounds Rectal Exam: deferred - Genitourinary Female genitourinary: deferred - Integumentary Integumentary: clear, warm, dry - Musculoskeletal Musculoskeletal: 1, strength equal bilaterally - Neurologic Neurologic: moves all extremities - Psychiatric Psychiatric: memory intact, appropriate mood/affect, intact judgment & insight - Labs CBC & Chem 7: 04/23/19 07:24 04/23/19 07:24 Labs: Abnormal lab results 04/23/19 04/23/19 04/24/19 Range/Units 17:48 19:56 08:05 POC Glucose 61 L 153 H 134 H (70-105) 04/24/19 Range/Units 12:14 POC Glucose 204 H (70-105)
[2019-04-25] MEDS: hydrALAZINE 25 MG TAB PO SCH ×4 (05:38→21:24)
[2019-04-25 07:17] LABS: Basophils # (Auto) 0.1 K/mm3 (0.0-0.1); Eosinophils # (Auto) 0.2 K/mm3 (0.0-0.4); Eosinophils % (Auto) 1.4 % (0.0-4.3); Lymphocytes # (Auto) 1.4 K/mm3 (1.2-5.4); Lymphocytes % (Auto) 12.1 % (13.4-35.0); Mean Corpuscular HGB Conc 32 % (30-34); Mean Corpuscular Volume 84 fl (79-97); Monocytes % (Auto) 8.9 % (0.0-7.3); Platelet Count 406 K/mm3 (140-440); Red Cell Distribution Width 19.5 % (13.2-15.2)
[2019-04-25 07:38] LABS: Calcium 8.9 mg/dL (8.4-10.2)
[2019-04-25] MEDS: INSULIN LISPRO 100 UNIT/ML SUB-Q SCH ×4 (07:42→22:45)
[2019-04-25] MEDS: ASPIRIN 81 MG TAB CHEW PO SCH (10:59)
[2019-04-25] MEDS: allopurinoL 100 MG TAB PO SCH (10:59)
[2019-04-25] MEDS: cefTRIAXone/NS 1 GM/50 ML 1 GM/50 ML BAG IV SCH (10:59)
[2019-04-25] MEDS: INSULIN NPH/REGULAR 70/30 INJ SUB-Q SCH ×2 (10:59→17:16)
[2019-04-25] MEDS: FOLIC ACID 1 MG TAB PO SCH (10:59)
[2019-04-25] MEDS: PANTOPRAZOLE 40 MG TAB PO SCH (10:59)
[2019-04-25] MEDS: CILOSTAZOL 100 MG TAB PO SCH ×2 (10:59→21:24)
[2019-04-25] MEDS: FERROUS SULFATE 325 MG TAB PO SCH (10:59)
[2019-04-25] MEDS: APIXABAN 5 MG TAB PO SCH ×2 (10:59→21:25)
[2019-04-25] MEDS: METOPROLOL TARTRATE 50 MG TAB PO SCH ×2 (10:59→17:16)
--- NOTE | 2019-04-25 16:12 | Progress Note ---
Assessment and Plan - Patient Problems (1) Altered mental status Current Visit: Yes Status: Acute Qualifiers: Altered mental status type: unspecified Qualified Code(s): R41.82 - Altered mental status, unspecified Plan to address problem: MRI completed., and reviewed, no acute findings. better by day. (2) Anemia Current Visit: Yes Status: Chronic Qualifiers: Anemia type: unspecified type Qualified Code(s): D64.9 - Anemia, unspecified Plan to address problem: monitor labs. (3) Lung cancer Current Visit: Yes Status: Acute Plan to address problem: supportive. (4) Dysphagia Current Visit: Yes Status: Acute Plan to address problem: Swallow /speech eval. Subjective Date of service: 04/25/19 Principal diagnosis: Altered mental status. Interval history: Patient seen/examined, resting in bed, daughter at the bed side, case d/w her.she presented to the ER from the [place], due to AMS. she has hx of lung cancer/pleurex catheter, due to pleural fluid.CT of the brain negative.pleurex drainage straw color. 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 Patient seen/examined, earlier this am, case d/w daughter at the bed side. Since then, HR up, cardiology consulted, will transfer to tele floor.as per cardiology rec.Appreciate cardiology/neuro input.Will continue IV ABX, until culture returns. Patient has been non ambulatory for years, and Pt/OT may not add much, but rec appreciated. Patient seen/examined, resting in bed, records/EEG /neurology notes reviewed, case d/w her daughter at the bed side.awaiting PT/OT eval/Tx. will do am labs. Patient seen/examined, resting in bed, daughter at the bed side, case d/w both. H/H low , and will need replacement.The daughter wishes against returning bask to the [facility].She will take her mom home ,with home health, Patient seen/examined, resting in bed, s/p blood transfusion. Daughter at the bed side, case d/w her.will check new labs tomorrow. Patient seen, with late entry. Labs reviewed, cultures negative.will start planning d/c home with daughter, as she does not want her to go back to the NH. Patient seen/examined, food tray in front of her, i have personally tried to feed her, and she ate some of her food there has to be more encouragement from the staff, to convince her to eat.Will plan discharge plans with the daughter, with home PT/OT. I also think that she will do better with sofr mechanical diet ,seeing the she had to chew for a long time before swallowing. Patient seen/examined, resting in bed, no new issues since yesterday.oral intake remains quite poor. Objective - Constitutional Vitals: Vital Signs - 12hr 04/25/19 04/25/19 04/25/19 08:04 08:23 09:35 Temperature 98.0 F Pulse Rate 88 90 Respiratory 18 Rate Blood Pressure 143/58 O2 Sat by Pulse 100 100 Oximetry 04/25/19 04/25/19 12:00 15:51 Temperature 98.3 F Pulse Rate 87 Respiratory 20 24 Rate Blood Pressure 140/59 O2 Sat by Pulse 100 Oximetry General appearance: Present: mild distress, other (poor oral intake.) - EENT Eyes: PERRL, EOM intact ENT: hearing intact, clear oral mucosa Ears: bilateral: normal - Neck Neck: supple, normal ROM - Respiratory Respiratory effort: normal Respiratory: bilateral: CTA - Breasts Breasts: deferred - Cardiovascular Rhythm: regular Heart Sounds: Present: S1 & S2. Absent: gallop, rub Extremities: pulses intact, No edema, normal color, Full ROM - Gastrointestinal General gastrointestinal: Present: soft, non-tender, non-distended, normal bowel sounds Rectal Exam: deferred - Genitourinary Female genitourinary: deferred - Integumentary Integumentary: clear, warm, dry - Musculoskeletal Musculoskeletal: 1, strength equal bilaterally - Neurologic Neurologic: moves all extremities - Psychiatric Psychiatric: appropriate mood/affect - Labs CBC & Chem 7: 04/25/19 05:47 04/25/19 05:47 Labs: Abnormal lab results 04/24/19 04/24/19 04/25/19 Range/Units 16:54 21:39 05:47 WBC 11.6 H (4.5-11.0) K/mm3 Hgb 10.0 L (10.1-14.3) gm/dl MCH 27 L (28-32) pg RDW 19.5 H (13.2-15.2) % Lymph % (Auto) 12.1 L (13.4-35.0) % [place] % (Auto) 8.9 H (0.0-7.3) % [place] # 1.0 H (0.0-0.8) K/mm3 Seg Neutrophils % 76.6 H (40.0-70.0) % Seg Neutrophils # 8.9 H (1.8-7.7) K/mm3 Sodium (137-145) mmol/L Potassium (3.6-5.0) mmol/L BUN (7-17) mg/dL Glucose (65-100) mg/dL POC Glucose 339 H 233 H (70-105) 04/25/19 04/25/19 Range/Units 05:47 12:06 WBC (4.5-11.0) K/mm3 Hgb (10.1-14.3) gm/dl MCH (28-32) pg RDW (13.2-15.2) % Lymph % (Auto) (13.4-35.0) % [place] % (Auto) (0.0-7.3) % [place] # (0.0-0.8) K/mm3 Seg Neutrophils % (40.0-70.0) % Seg Neutrophils # (1.8-7.7) K/mm3 Sodium 136 L (137-145) mmol/L Potassium 5.3 H (3.6-5.0) mmol/L BUN 52 H (7-17) mg/dL Glucose 139 H (65-100) mg/dL POC Glucose 307 H (70-105)
[2019-04-26] MEDS ORDERED: FUROSEMIDE 20 MG/2 ML INJ IV STA (03:23)
[2019-04-26] MEDS ORDERED: METOPROLOL TARTRATE 5 MG/5 ML INJ IV ONE (03:24)
--- NOTE | 2019-04-26 03:47 | XRay Report ---
CHEST 1 VIEW INDICATION: diffulty breathing. COMPARISON: 04/17/2019 FINDINGS: Support devices: Unchanged. Heart: Stable. Lungs/Pleura: Extensive pleural-parenchymal disease in the left hemithorax, greatest superiorly, is s lightly worsened. Diffuse interstitial opacities on the right long line pleural effusion are stable. No pneumothorax. IMPRESSION: 1. No significant change. Signer Name: Davon Wagoner MD Signed: 04/26/2019 3:43 AM Workstation Name: [email or web address]
[2019-04-26] MEDS: hydrALAZINE 25 MG TAB PO SCH ×4 (06:40→23:31)
[2019-04-26] MEDS: INSULIN LISPRO 100 UNIT/ML SUB-Q SCH ×4 (08:36→23:33)
[2019-04-26] MEDS: INSULIN NPH/REGULAR 70/30 INJ SUB-Q SCH ×2 (08:36→17:38)
[2019-04-26] MEDS: APIXABAN 5 MG TAB PO SCH ×3 (09:20→23:32)
[2019-04-26] MEDS: FERROUS SULFATE 325 MG TAB PO SCH (09:20)
[2019-04-26] MEDS: FOLIC ACID 1 MG TAB PO SCH (09:20)
[2019-04-26] MEDS: ASPIRIN 81 MG TAB CHEW PO SCH (09:20)
[2019-04-26] MEDS: PANTOPRAZOLE 40 MG TAB PO SCH (09:20)
[2019-04-26] MEDS: cefTRIAXone/NS 1 GM/50 ML 1 GM/50 ML BAG IV SCH (09:20)
[2019-04-26] MEDS: CILOSTAZOL 100 MG TAB PO SCH ×3 (09:21→23:33)
[2019-04-26] MEDS: allopurinoL 100 MG TAB PO SCH (09:21)
[2019-04-26] MEDS: METOPROLOL TARTRATE 50 MG TAB PO SCH ×2 (09:21→18:04)
--- NOTE | 2019-04-26 14:13 | Progress Note ---
Assessment and Plan - Patient Problems (1) Altered mental status Current Visit: Yes Status: Acute Qualifiers: Altered mental status type: unspecified Qualified Code(s): R41.82 - Altered mental status, unspecified Plan to address problem: MRI completed., and reviewed, no acute findings. better by day. (2) Anemia Current Visit: Yes Status: Chronic Qualifiers: Anemia type: unspecified type Qualified Code(s): D64.9 - Anemia, unspecified Plan to address problem: monitor labs. (3) Lung cancer Current Visit: Yes Status: Acute Plan to address problem: supportive. (4) Dysphagia Current Visit: Yes Status: Acute Plan to address problem: Swallow /speech eval. completed. Subjective Date of service: 04/26/19 Principal diagnosis: Altered mental status. Interval history: Patient seen/examined, resting in bed, daughter at the bed side, case d/w her.she presented to the ER from the [place], due to AMS. she has hx of lung cancer/pleurex catheter, due to pleural fluid.CT of the brain negative.pleurex drainage straw color. 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 Patient seen/examined, earlier this am, case d/w daughter at the bed side. Since then, HR up, cardiology consulted, will transfer to tele floor.as per cardiology rec.Appreciate cardiology/neuro input.Will continue IV ABX, until culture returns. Patient has been non ambulatory for years, and Pt/OT may not add much, but rec appreciated. Patient seen/examined, resting in bed, records/EEG /neurology notes reviewed, case d/w her daughter at the bed side.awaiting PT/OT eval/Tx. will do am labs. Patient seen/examined, resting in bed, daughter at the bed side, case d/w both. H/H low , and will need replacement.The daughter wishes against returning bask to the [facility].She will take her mom home ,with home health, Patient seen/examined, resting in bed, s/p blood transfusion. Daughter at the bed side, case d/w her.will check new labs tomorrow. Patient seen, with late entry. Labs reviewed, cultures negative.will start planning d/c home with daughter, as she does not want her to go back to the NH. Patient seen/examined, food tray in front of her, i have personally tried to feed her, and she ate some of her food there has to be more encouragement from the staff, to convince her to eat.Will plan discharge plans with the daughter, with home PT/OT. I also think that she will do better with sofr mechanical diet ,seeing the she had to chew for a long time before swallowing. Patient seen/examined, resting in bed, no new issues since yesterday.oral intake remains quite poor. Patient seen/examined, she had some cardiac arrhythmia, with PSVT, and converted to sinus tach.will check thyroid panel, to see if implicated. Objective - Constitutional Vitals: Vital Signs - 12hr 04/26/19 04/26/19 04/26/19 03:49 06:40 07:50 Temperature 97.9 F 97.9 F Pulse Rate 78 75 85 Respiratory 18 18 Rate Blood Pressure 137/61 137/61 146/58 O2 Sat by Pulse 99 100 Oximetry 04/26/19 04/26/19 04/26/19 09:21 10:00 11:00 Temperature Pulse Rate 85 Respiratory 20 Rate Blood Pressure 146/58 O2 Sat by Pulse 100 Oximetry 04/26/19 11:26 Temperature 98.6 F Pulse Rate 77 Respiratory 18 Rate Blood Pressure 112/55 O2 Sat by Pulse 100 Oximetry General appearance: Present: mild distress, well-nourished - EENT Eyes: PERRL, EOM intact ENT: hearing intact, clear oral mucosa Ears: bilateral: normal - Neck Neck: supple, normal ROM - Respiratory Respiratory effort: normal Respiratory: bilateral: CTA - Breasts Breasts: deferred - Cardiovascular Rhythm: regular Heart Sounds: Present: S1 & S2. Absent: gallop, rub Extremities: pulses intact, No edema, normal color, Full ROM - Gastrointestinal General gastrointestinal: Present: soft, non-tender, non-distended, normal bowel sounds Rectal Exam: deferred - Genitourinary Female genitourinary: deferred - Integumentary Integumentary: clear, warm, dry - Musculoskeletal Musculoskeletal: 1, strength equal bilaterally - Neurologic Neurologic: moves all extremities - Psychiatric Psychiatric: appropriate mood/affect, intact judgment & insight - Labs CBC & Chem 7: 04/25/19 05:47 04/25/19 05:47 Labs: Abnormal lab results 04/21/19 04/25/19 04/25/19 Range/Units 20:47 17:17 17:42 POC Glucose 137 H 148 H (70-105) Crossmatch See Detail 04/25/19 04/26/19 Range/Units 21:23 11:34 POC Glucose 162 H 168 H (70-105) Crossmatch
[2019-04-27] MEDS ORDERED: FUROSEMIDE 20 MG/2 ML INJ IV STA (02:20)
[2019-04-27] MEDS: METOPROLOL TARTRATE 5 MG/5 ML INJ IV PRN ×2 (02:36→21:24)
[2019-04-27] MEDS: APIXABAN 5 MG TAB PO SCH ×2 (10:01→21:24)
[2019-04-27] MEDS: METOPROLOL TARTRATE 50 MG TAB PO SCH ×2 (10:01→18:28)
[2019-04-27] MEDS: CILOSTAZOL 100 MG TAB PO SCH ×2 (10:01→21:23)
[2019-04-27] MEDS: FERROUS SULFATE 325 MG TAB PO SCH (10:01)
[2019-04-27] MEDS: allopurinoL 100 MG TAB PO SCH (10:02)
[2019-04-27] MEDS: ASPIRIN 81 MG TAB CHEW PO SCH (10:02)
[2019-04-27] MEDS: INSULIN LISPRO 100 UNIT/ML SUB-Q SCH ×3 (10:02→18:27)
[2019-04-27] MEDS: INSULIN NPH/REGULAR 70/30 INJ SUB-Q SCH ×2 (10:02→18:27)
[2019-04-27] MEDS: FOLIC ACID 1 MG TAB PO SCH (10:02)
[2019-04-27] MEDS: PANTOPRAZOLE 40 MG TAB PO SCH (10:02)
[2019-04-27] MEDS: cefTRIAXone/NS 1 GM/50 ML 1 GM/50 ML BAG IV SCH (10:03)
[2019-04-27] MEDS: hydrALAZINE 25 MG TAB PO SCH ×3 (11:42→21:24)
--- NOTE | 2019-04-27 20:48 | Discharge Summary ---
Providers - Providers Date of Admission: 04/19/19 15:35 Date of discharge: 04/28/19 (once every suply needed by daughter is ready at home.) Attending physician: NEO ARIAS 04/18/19 16:39 Consult to Dietitian/Nutrition [CONS] Routine Physician Instructions: Reason For Exam: Reason for Consult: Poor oral intake Consult to Dietitian/Nutrition [CONS] Stat Physician Instructions: Reason For Exam: Reason for Consult: Malnutrition 04/18/19 16:48 Speech Therapy Evaluation and Treat [CONS] Routine Reason For Exam: evaluate swallow 04/18/19 17:02 Consult to Physician [CONS] Routine Comment: Consulting Provider: RONN TORRES Physician Instructions: Reason For Exam: AMS 04/18/19 17:09 Consult Acute Rehabilitation [CONS] Routine Consulting Provider: Physician Instructions: Reason For Exam: IRU Evaluation 04/19/19 08:25 Occupational Therapy Evaluate and Treat [CONS] Routine Comment: Reason For Exam: debility Physical Therapy Evaluation and Treat [CONS] Routine Comment: Reason For Exam: debility 04/19/19 10:57 Consult to Physician [CONS] Urgent Comment: paged overhead/ lupe Consulting Provider: PAULA LAKE Physician Instructions: Reason For Exam: Tachycardia, rates in the 160's 04/20/19 11:26 Consult to Wound/ET Nurse [CONS] Routine Reason For Exam: wound eval/sacral and Rt. buttock decub 04/25/19 18:14 Consult to Case Management [CONS] Routine Services Needed at Discharge: Home Health Services Physical Therapy DME Equipment Notified:: cm notified Comment:: pls set the above up for patient at home, then will d/c home. Additional Physician Instructions: As per daughter, also bedside commode, hospital bed.Give her 24hrs prior notice before discharge.Pls let ma know. Primary care physician: TERRANCE REDD Hospitalization Reason for admission: AMS Condition: Fair Hospital course: Patient seen/examined, resting in bed, records reviewed, daughter not in the room. I had discussed plans of d/c with the daughter, once all suplis ready at her home., as well as home health. Disposition: [id number] HOME UNDER HOME HLTH - Discharge Diagnoses (1) Altered mental status Status: Resolved Qualifiers: Altered mental status type: unspecified Qualified Code(s): R41.82 - Altered mental status, unspecified (2) Anemia Status: Chronic Qualifiers: Anemia type: unspecified type Qualified Code(s): D64.9 - Anemia, unspecified (3) Lung cancer Status: Chronic (4) Dysphagia Status: Resolved Core Measure Documentation - Palliative Care Palliative Care/ Comfort Measures: Not Applicable - Core Measures Any of the following diagnoses?: none, history only Exam - Constitutional Vitals: Temp Pulse Resp BP Pulse Ox 97.9 F 56 L 18 180/58 100 04/27/19 20:28 04/27/19 20:28 04/27/19 20:28 04/27/19 20:28 04/27/19 20:28 General appearance: Present: no acute distress, well-nourished - EENT Eyes: Present: PERRL ENT: hearing intact, clear oral mucosa - Neck Neck: Present: supple, normal ROM - Respiratory Respiratory effort: normal Respiratory: bilateral: CTA - Cardiovascular Heart Sounds: Present: S1 & S2. Absent: rub, click - Extremities Extremities: pulses symmetrical, No edema Peripheral Pulses: within normal limits - Abdominal General gastrointestinal: Present: soft, non-tender, non-distended, normal bowel sounds Female genitourinary: Present: deferred - Rectal Rectal Exam: deferred - Integumentary Integumentary: Present: clear, warm, dry - Musculoskeletal Musculoskeletal: gait normal, strength equal bilaterally - Psychiatric Psychiatric: appropriate mood/affect, intact judgment & insight - Neurologic Neurologic: CNII-XII intact, moves all extremities Plan Activity: up only with assistance, fall precautions Diet: low cholesterol, diabetic Durable Medical Equipment Needed Upon Discharge: Bedside commode -elevated, Hospital Bed Follow up with: TERRANCE REDD MD [Primary Care Provider] - 3-5 Days NEO ARIAS DO [Staff Physician] - 7 Days
[2019-04-27] MEDS: ACETAMINOPHEN 325 MG TAB PO PRN (21:31)
[2019-04-28] MEDS ORDERED: FUROSEMIDE 20 MG/2 ML INJ IV ONE (00:27)
[2019-04-28] MEDS: INSULIN LISPRO 100 UNIT/ML SUB-Q SCH ×5 (00:36→22:00)
[2019-04-28 06:40] LABS: Basophils # (Auto) 0.1 K/mm3 (0.0-0.1); Basophils % (Auto) 1.2 % (0.0-1.8); Eosinophils # (Auto) 0.1 K/mm3 (0.0-0.4); Eosinophils % (Auto) 0.7 % (0.0-4.3); Hematocrit 33.4 % (30.3-42.9); Lymphocytes # (Auto) 1.2 K/mm3 (1.2-5.4); Lymphocytes % (Auto) 12.1 % (13.4-35.0); Mean Corpuscular HGB Conc 33 % (30-34); Mean Corpuscular Volume 83 fl (79-97); Monocytes # (Auto) 1.2 K/mm3 (0.0-0.8); Monocytes % (Auto) 11.9 % (0.0-7.3); Platelet Count 423 K/mm3 (140-440); Red Blood Count 4.04 M/mm3 (3.65-5.03); Red Cell Distribution Width 19.7 % (13.2-15.2)
[2019-04-28 07:01] LABS: Calcium 9.7 mg/dL (8.4-10.2)
[2019-04-28] MEDS: FOLIC ACID 1 MG TAB PO SCH (09:36)
[2019-04-28] MEDS: METOPROLOL TARTRATE 50 MG TAB PO SCH ×2 (09:36→17:59)
[2019-04-28] MEDS: CILOSTAZOL 100 MG TAB PO SCH ×2 (09:36→22:55)
[2019-04-28] MEDS: allopurinoL 100 MG TAB PO SCH (09:36)
[2019-04-28] MEDS: PANTOPRAZOLE 40 MG TAB PO SCH (09:37)
[2019-04-28] MEDS: INSULIN NPH/REGULAR 70/30 INJ SUB-Q SCH ×2 (09:37→17:43)
[2019-04-28] MEDS: FERROUS SULFATE 325 MG TAB PO SCH (09:37)
[2019-04-28] MEDS: APIXABAN 5 MG TAB PO SCH ×2 (09:37→22:55)
[2019-04-28] MEDS: ASPIRIN 81 MG TAB CHEW PO SCH (09:37)
[2019-04-28] MEDS: hydrALAZINE 25 MG TAB PO SCH ×3 (09:38→22:55)
[2019-04-29] MEDS ORDERED: FUROSEMIDE 20 MG/2 ML INJ IV SCH (04:30)
[2019-04-29] MEDS: hydrALAZINE 25 MG TAB PO SCH ×2 (06:55→15:31)
[2019-04-29] MEDS: INSULIN NPH/REGULAR 70/30 INJ SUB-Q SCH (08:31)
[2019-04-29] MEDS: METOPROLOL TARTRATE 50 MG TAB PO SCH (08:31)
[2019-04-29] MEDS: INSULIN LISPRO 100 UNIT/ML SUB-Q SCH ×2 (08:38→12:32)
[2019-04-29] MEDS: CILOSTAZOL 100 MG TAB PO SCH (10:16)
[2019-04-29] MEDS: ASPIRIN 81 MG TAB CHEW PO SCH (10:17)
[2019-04-29] MEDS: PANTOPRAZOLE 40 MG TAB PO SCH (10:18)
[2019-04-29] MEDS: FERROUS SULFATE 325 MG TAB PO SCH (10:20)
[2019-04-29] MEDS: APIXABAN 5 MG TAB PO SCH (10:20)
[2019-04-29] MEDS: allopurinoL 100 MG TAB PO SCH (10:21)
[2019-04-29] MEDS: FOLIC ACID 1 MG TAB PO SCH (10:21)
--- NOTE | 2019-04-29 12:30 | Progress Note ---
Assessment and Plan Optimize HR - initiate PO amio 200mg daily. Nothing further to add from cardiac perspective at this time. Will follow on as needed basis. The patient has been seen in conjunction with Dr. Pineda who agrees with the assessment and plan of care. - Patient Problems (1) Altered mental status Current Visit: Yes Status: Acute (2) Acute heart failure with reduced ejection fraction Current Visit: Yes Status: Acute (3) Paroxysmal atrial fibrillation with RVR Current Visit: Yes Status: Acute (4) Lung cancer Current Visit: Yes Status: Chronic (5) Pleural effusion Current Visit: Yes Status: Acute (6) CAD (coronary artery disease) Current Visit: Yes Status: Chronic Qualifiers: Coronary Disease-Associated Artery/Lesion type: wainwright artery (7) Stented coronary artery Current Visit: Yes Status: Chronic (8) Cardiomyopathy Current Visit: Yes Status: Chronic (9) Abnormal stress test Current Visit: Yes Status: Chronic (10) PAD (peripheral artery disease) Current Visit: Yes Status: Chronic (11) Diabetes Current Visit: Yes Status: Chronic (12) Former tobacco use Current Visit: Yes Status: Chronic (13) Anemia Current Visit: Yes Status: Chronic (14) Hyperkalemia Current Visit: Yes Status: Acute Subjective Date of service: 04/29/19 Principal diagnosis: Altered mental status. Interval history: pt resting in bed, no current cardiac complaints. tele reviewed - in SR with HR 80s with bouts of PAFib and PAFlutter RVR overnight. Objective Last Vital Signs Temp 97.8 F 04/29/19 08:12 Pulse 110 H 04/29/19 08:58 Resp 18 04/29/19 08:12 BP 143/62 04/29/19 08:12 Pulse Ox 95 04/29/19 08:12 - Physical Examination General: No Apparent Distress HEENT: Positive: PERRL Neck: Positive: neck supple, trachea midline Cardiac: Positive: Reg Rate and Rhythm, S1/S2 Lungs: Positive: Decreased Breath Sounds - Imaging and Cardiology EKG: report reviewed, image reviewed Echo: report reviewed (02/19/2019 showed EF 30-35%, impaired relaxation, mild MR and TR, RVSP 46mmHg, basal anterior, mid anterior and apical anterior wall segments hypokinetic, mid inferoseptal and apical septal wall segments akinetic. ) - EKG Sinus rhythms and dysrhythmias: sinus rhythm
--- NOTE | 2019-04-29 12:47 | Progress Note ---
Assessment and Plan - Patient Problems (1) Altered mental status Current Visit: Yes Status: Resolved Qualifiers: Altered mental status type: unspecified Qualified Code(s): R41.82 - Altered mental status, unspecified Plan to address problem: MRI completed., and reviewed, no acute findings. better by day. This is rather metabolic encephalopathy (2) Anemia Current Visit: Yes Status: Chronic Qualifiers: Anemia type: unspecified type Qualified Code(s): D64.9 - Anemia, unspecified Plan to address problem: monitor labs. stable. (3) Lung cancer Current Visit: Yes Status: Chronic Plan to address problem: supportive. (4) Dysphagia Current Visit: Yes Status: Resolved Plan to address problem: Swallow /speech eval. completed. Better. (5) Metabolic encephalopathy Current Visit: Yes Status: Acute (6) Acute metabolic encephalopathy Current Visit: Yes Status: Acute Plan to address problem: supportive care. (7) Acute systolic congestive heart failure Current Visit: Yes Status: Acute Plan to address problem: Diuretics, control BP., follow cardiology rec. Subjective Date of service: 04/29/19 Principal diagnosis: Altered mental status. Interval history: Patient seen/examined, resting in bed, daughter at the bed side, case d/w her.she presented [place] the [place] from the [place], due to AMS. she has hx of lung cancer/pleurex catheter, due to pleural fluid.CT of the brain negative.pleurex drainage straw color. 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 Patient seen/examined, earlier this am, case d/w daughter at the bed side. Since then, HR up, cardiology consulted, will transfer to tele floor.as per cardiology rec.Appreciate cardiology/neuro input.Will continue IV ABX, until culture returns. Patient has been non ambulatory for years, and Pt/OT may not add much, but rec appreciated. Patient seen/examined, resting in bed, records/EEG /neurology notes reviewed, case d/w her daughter at the bed side.awaiting PT/OT eval/Tx. will do am labs. Patient seen/examined, resting in bed, daughter at the bed side, case d/w both. H/H low , and will need replacement.The daughter wishes against returning bask to the [facility].She will take her mom home ,with home health, Patient seen/examined, resting in bed, s/p blood transfusion. Daughter at the bed side, case d/w her.will check new labs tomorrow. Patient seen, with late entry. Labs reviewed, cultures negative.will start planning d/c home with daughter, as she does not want her to go back to the NH. Patient seen/examined, food tray in front of her, i have personally tried to feed her, and she ate some of her food there has to be more encouragement from the staff, to convince her to eat.Will plan discharge plans with the daughter, with home PT/OT. I also think that she will do better with sofr mechanical diet ,seeing the she had to chew for a long time before swallowing. Patient seen/examined, resting in bed, no new issues since yesterday.oral intake remains quite poor. Patient seen/examined, she had some cardiac arrhythmia, with PSVT, and converted to sinus tach.will check thyroid panel, to see if implicated. Patient seen, examined, resting in bed, NAD, i have spoken to the manager personal, and patients daughter on how to move on with safe timely discharge home. It is over due. Objective - Constitutional Vitals: Vital Signs - 12hr 04/29/19 04/29/19 04/29/19 04:22 06:55 08:12 Temperature 98.3 F 97.8 F Pulse Rate 111 H 113 H 134 H Respiratory 18 18 Rate Blood Pressure 141/59 141/59 143/62 O2 Sat by Pulse 100 95 Oximetry 04/29/19 04/29/19 08:31 08:58 Temperature Pulse Rate 142 H 110 H Respiratory Rate Blood Pressure O2 Sat by Pulse Oximetry General appearance: Present: no acute distress, well-nourished - EENT Eyes: PERRL, EOM intact ENT: hearing intact, clear oral mucosa Ears: bilateral: normal - Neck Neck: supple, normal ROM - Respiratory Respiratory effort: normal Respiratory: bilateral: CTA - Breasts Breasts: deferred - Cardiovascular Rhythm: regular Heart Sounds: Present: S1 & S2. Absent: gallop, rub Extremities: pulses intact, No edema, normal color, Full ROM - Gastrointestinal General gastrointestinal: Present: soft, non-tender, non-distended, normal bowel sounds Rectal Exam: deferred - Genitourinary Female genitourinary: deferred - Integumentary Integumentary: clear, warm, dry - Musculoskeletal Musculoskeletal: 1, strength equal bilaterally - Neurologic Neurologic: moves all extremities - Psychiatric Psychiatric: memory intact, appropriate mood/affect, intact judgment & insight - Labs CBC & Chem 7: 04/28/19 06:06 04/28/19 06:06 Labs: Abnormal lab results 04/28/19 04/28/19 04/28/19 Range/Units 16:56 18:08 20:10 POC Glucose 56 L 180 H 281 H (70-105) 04/29/19 04/29/19 04/29/19 Range/Units 00:57 08:19 11:51 POC Glucose 149 H 136 H 120 H (70-105)
[2019-04-29] MEDS ORDERED: AMIODARONE 200 MG TAB PO SCH (13:00)
[2019-04-29 15:31] VITALS: BP 117/60
== END 2019-04-29 16:25 | disposition home health service (06) | DRG 70 ==
LOC: ED 17:07 → 2B-ACE 22:09 → OBSVTOIN 04-19 15:35 → 4A 04-19 20:23
PROVIDERS: ADMIT Internal Medicine Hematology & Oncology; ATTEND Internal Medicine Hematology & Oncology
PROC: 30233N1 Transfusion of Nonautologous Red Blood Cells into Peripheral Vein, Percutaneous Approach (ICD-10-PCS; principal; 2019-04-21)
DX: G93.41 Metabolic encephalopathy (principal); I50.23 Acute on chronic systolic (congestive) heart failure; I13.0 Hypertensive heart and chronic kidney disease with heart failure and stage 1 through stage 4 chronic kidney disease, or unspecified chronic kidney disease; C34.91 Malignant neoplasm of unspecified part of right bronchus or lung; I47.1 Supraventricular tachycardia; I42.9 Cardiomyopathy, unspecified; I48.0 Paroxysmal atrial fibrillation; E11.22 Type 2 diabetes mellitus with diabetic chronic kidney disease; I25.10 Atherosclerotic heart disease of native coronary artery without angina pectoris; J44.9 Chronic obstructive pulmonary disease, unspecified; R13.10 Dysphagia, unspecified; I08.1 Rheumatic disorders of both mitral and tricuspid valves; N18.9 Chronic kidney disease, unspecified; E11.51 Type 2 diabetes mellitus with diabetic peripheral angiopathy without gangrene; E87.5 Hyperkalemia; D64.9 Anemia, unspecified; Z95.5 Presence of coronary angioplasty implant and graft; Z79.4 Long term (current) use of insulin; Z79.82 Long term (current) use of aspirin
CPT/HCPCS: 36415; 70450; 70551; 71045; 80048; 80053; 81001; 82140; 82550; 82553; 82947; 82962; 83036; 84160; 84443; 84484; 85007; 85025; 85027; 85610; 85730; 86850; 86900; 86901; 86920; 87086; 87116; 88112; 88305; 88341; 88342; 93005; 93010; 94640; 94760; 95819; G0378; J0696; J1815; J1940; J2560; J7040; P9016

== ENCOUNTER 2019-05-18 19:20 | Inpatient (IN) | payer MEDICARE ==
[2019-05-19] MEDS ORDERED: traMADol 50 MG TAB PO ONE (00:15)
--- NOTE | 2019-05-19 00:15 | Emergency Department Report ---
ED General Adult HPI - General Chief complaint: Rectal Pain Stated complaint: PAINFUL HEMORRHOIDS Time Seen by Provider: 05/18/19 22:52 Source: patient, family, RN notes reviewed, old records reviewed Mode of arrival: Wheelchair Limitations: Physical Limitation - History of Present Illness Initial comments: Primary care doctor: Dr. Stalin Burris The patient is a 73-year-old female. Past medical history is complex, with stage IV lung cancer, recurrent left-sided pleural effusion, pleural catheter in place, CAD, status post acute UT with PCI in 2008 and 2012, paroxysmal A. fib, anticoagulated with Eliquis, high ejection fraction congestive heart failure, hypertension, diabetes and tobacco use Patient is accompanied by her daughter who provides most of the history. The patient has been having rectal pain for 1 day, and brown stool mixed with red blood. The patient is currently on a home hospital bed, on home oxygen, and there is no trauma. Patient is not able to describe exacerbating or relieving factors. As per the daughter, the patient is at her mental baseline. There is no endorsement of fever, nausea, vomiting, or hematemesis. There is no endorsement of urinary symptoms. Family is concerned about the possibility of hemorrhoids. Patient is tolerating liquid feeds at home. -: Gradual Quality: other Consistency: other Improves with: other Worsens with: other Associated Symptoms: other - Related Data Previous Rx's Medication Instructions Recorded Last Taken Type ALBUTEROL NEB's [Proventil 0.083% 2.5 mg IH Q3HRT PRN #100 nebu 03/16/19 Unknown Rx NEBS] Aspirin EC 325 mg PO QDAY #30 tablet 03/16/19 03/17/19 10:00 Rx 325 mg Cilostazol [Pletal] 50 mg PO BID #60 tablet 03/16/19 03/17/19 10:00 Rx 50 mg Ferrous Sulfate [Feosol 325 MG tab] 325 mg PO DAILY #30 tablet 03/16/19 03/17/19 10:00 Rx 325 mg Folic Acid [Folvite] 1 mg PO QDAY #30 tablet 03/16/19 03/17/19 10:00 Rx 1 mg ISOSORBIDE MONOnitrate [Imdur ER] 120 mg PO QDAY #1 tablet 03/16/19 03/17/19 10:00 Rx 120 mg Insulin NPH/Regular [NovoLIN 70/30] 10 unit SUB-Q BIDDIAB units 03/16/19 Unknown Rx Ipratropium (Nf) [Atrovent HFA 2 puff IH Q6HR PRN #1 inha 03/16/19 Unknown Rx 17MCG/PUFF] Pantoprazole [Protonix TAB] 40 mg PO QDAY #30 tablet 03/16/19 03/17/19 10:00 Rx 40 mg allopurinoL [Zyloprim] 100 mg PO DAILY #30 tablet 03/16/19 03/17/19 10:00 Rx 100 mg hydrALAZINE [Apresoline TAB] 25 mg PO Q8HR #90 tablet 03/16/19 03/17/19 10:00 Rx 25 mg hydrOXYzine HCL [Atarax] 10 mg PO Q6H PRN #30 tablet 03/16/19 Unknown Rx oxyCODONE /ACETAMINOPHEN [Percocet 1 tab PO Q6H PRN #8 tablet 03/16/19 Unknown Rx 5/325 mg] Apixaban [Eliquis] 5 mg PO BID #30 tablet 03/19/19 Unknown Rx Insulin NPH/Regular [NovoLIN 70/30] See Protocol SUB-Q ACHS #300 units 04/05/19 Unknown Rx Metoprolol [Lopressor TAB] 50 mg PO BIDDIAB tablet 04/05/19 Unknown Rx Allergies Allergy/AdvReac Type Severity Reaction Status Date / Time ibuprofen Allergy Unknown Verified 02/18/19 23:29 Penicillins Allergy Unknown Verified 02/18/19 23:29 ED Review of Systems ROS: Stated complaint: PAINFUL HEMORRHOIDS Other details as noted in HPI Constitutional: denies: fever Respiratory: see HPI Cardiovascular: denies: syncope Gastrointestinal: denies: abdominal pain, nausea, vomiting, diarrhea, hematemesis, melena Genitourinary: denies: dysuria Neurological: weakness ED Past Medical Hx - Past Medical History Previous Medical History?: Yes Hx Hypertension: Yes Hx Congestive Heart Failure: Yes Hx Diabetes: Yes Hx Liver Disease: No Hx Renal Disease: No Hx of Cancer: Yes (Lung Ca. imunotherapy today.) Hx COPD: Yes Additional medical history: Renal failure but not on dialysis - Surgical History Past Surgical History?: Yes Hx Coronary Stent: Yes (3 stents) Additional Surgical History: stent placement, pleur x drain to left chest. port to right chest - Social History Smoking Status: Never Smoker - Medications Home Medications: Home Medications Medication Instructions Recorded Confirmed Last Taken Type ALBUTEROL NEB's [Proventil 0.083% 2.5 mg IH Q3HRT PRN #100 nebu 03/16/19 05/19/19 Unknown Rx NEBS] Aspirin EC 325 mg PO QDAY #30 tablet 03/16/19 05/19/19 03/17/19 10:00 Rx 325 mg Cilostazol [Pletal] 50 mg PO BID #60 tablet 03/16/19 05/19/19 03/17/19 10:00 Rx 50 mg Ferrous Sulfate [Feosol 325 MG tab] 325 mg PO DAILY #30 tablet 03/16/19 05/19/19 03/17/19 10:00 Rx 325 mg Folic Acid [Folvite] 1 mg PO QDAY #30 tablet 03/16/19 05/19/19 03/17/19 10:00 Rx 1 mg ISOSORBIDE MONOnitrate [Imdur ER] 120 mg PO QDAY #1 tablet 03/16/19 05/19/19 03/17/19 10:00 Rx 120 mg Insulin NPH/Regular [NovoLIN 70/30] 10 unit SUB-Q BIDDIAB units 03/16/19 05/19/19 Unknown Rx Ipratropium (Nf) [Atrovent HFA 2 puff IH Q6HR PRN #1 inha 03/16/19 05/19/19 Unknown Rx 17MCG/PUFF] Pantoprazole [Protonix TAB] 40 mg PO QDAY #30 tablet 03/16/19 05/19/19 03/17/19 10:00 Rx 40 mg allopurinoL [Zyloprim] 100 mg PO DAILY #30 tablet 03/16/19 05/19/19 03/17/19 10:00 Rx 100 mg hydrALAZINE [Apresoline TAB] 25 mg PO Q8HR #90 tablet 03/16/19 05/19/19 03/17/19 10:00 Rx 25 mg hydrOXYzine HCL [Atarax] 10 mg PO Q6H PRN #30 tablet 03/16/19 05/19/19 Unknown Rx oxyCODONE /ACETAMINOPHEN [Percocet 1 tab PO Q6H PRN #8 tablet 12/10/19 02/12/20 Unknown Rx 5/325 mg] Apixaban [Eliquis] 5 mg PO BID #30 tablet 03/19/19 05/19/19 Unknown Rx Insulin NPH/Regular [NovoLIN 70/30] See Protocol SUB-Q ACHS #300 units 04/05/19 05/19/19 Unknown Rx Metoprolol [Lopressor TAB] 50 mg PO BIDDIAB tablet 04/05/19 05/19/19 Unknown Rx ED Physical Exam - General Limitations: Physical Limitation, Other General appearance: alert, in no apparent distress - Head Head exam: Present: atraumatic, normocephalic - Eye Eye exam: Present: normal appearance - ENT ENT exam: Present: normal exam, normal orophraynx, mucous membranes moist, normal external ear exam - Neck Neck exam: Present: normal inspection, full ROM. Absent: tenderness, meningismus - Respiratory Respiratory exam: Present: decreased breath sounds, other (Left-sided pleural catheter noted, without redness, pus or streaking). Absent: respiratory distress, wheezes, rales, rhonchi, stridor - Cardiovascular Cardiovascular Exam: Present: regular rate, normal rhythm, normal heart sounds. Absent: bradycardia, tachycardia, irregular rhythm, systolic murmur, diastolic murmur, rubs, gallop - GI/Abdominal GI/Abdominal exam: Present: soft. Absent: distended, tenderness, guarding, rebound, rigid, pulsatile mass - Rectal Rectal exam: Present: normal inspection (There is perirectal tenderness appreciated at 12:00. There is internal rectal tenderness appreciated at 12:00. There is no redness, pus or streaking), other (There is a skin tag noted at 6:00. There is an anal fissure noted at 12:00. There is brown stool that has trace dark blood in it. Chaperoned by nurse Martita Flores) - Extremities Exam Extremities exam: Present: normal inspection, other (2+ pulses noted in the bilateral upper and lower extremities. There is no palpable cord. negative Homans sign. Muscular compartments are soft. The pelvis is stable.). Absent: calf tenderness - Back Exam Back exam: Present: normal inspection, full ROM. Absent: tenderness, CVA tenderness (R), CVA tenderness (L), paraspinal tenderness, vertebral tenderness - Neurological Exam Neurological exam: Present: alert, other (There is no facial droop. Moving 4 extremities spontaneously and to command. Sensation is intact to light touch in 4 extremities) - Psychiatric Psychiatric exam: Present: flat affect - Skin Skin exam: Present: warm, dry, intact, normal color. Absent: rash ED Course Vital Signs 05/18/19 05/18/19 05/18/19 20:14 20:37 23:15 Temperature 97.5 F L Pulse Rate 92 H Respiratory 18 Rate Blood Pressure 109/55 136/61 O2 Sat by Pulse 71 L 97 Oximetry 05/18/19 05/18/19 05/18/19 23:30 23:45 23:57 Temperature Pulse Rate Respiratory Rate Blood Pressure 127/67 118/57 118/57 O2 Sat by Pulse 100 98 100 Oximetry 05/19/19 05/19/19 05/19/19 00:00 00:15 00:30 Temperature Pulse Rate Respiratory Rate Blood Pressure 115/55 123/39 96/53 O2 Sat by Pulse 100 99 Oximetry 05/19/19 05/19/19 05/19/19 00:45 01:00 01:15 Temperature Pulse Rate Respiratory Rate Blood Pressure 102/51 110/54 117/60 O2 Sat by Pulse 100 100 Oximetry 05/19/19 05/19/19 05/19/19 01:31 01:45 02:00 Temperature Pulse Rate Respiratory Rate Blood Pressure 110/54 114/63 91/46 O2 Sat by Pulse 98 99 98 Oximetry 05/19/19 05/19/19 05/19/19 02:26 02:30 02:45 Temperature Pulse Rate Respiratory Rate Blood Pressure 91/46 95/53 119/60 O2 Sat by Pulse 100 99 99 Oximetry 05/19/19 05/19/19 05/19/19 03:00 03:15 03:31 Temperature Pulse Rate Respiratory Rate Blood Pressure 115/59 95/53 121/59 O2 Sat by Pulse 99 62 L Oximetry 05/19/19 05/19/19 05/19/19 03:47 04:01 04:15 Temperature Pulse Rate Respiratory Rate Blood Pressure 147/60 130/57 130/57 O2 Sat by Pulse 99 96 Oximetry 05/19/19 05/19/19 05/19/19 04:30 04:45 05:01 Temperature Pulse Rate Respiratory Rate Blood Pressure 108/78 130/57 128/57 O2 Sat by Pulse 97 96 76 L Oximetry 05/19/19 05/19/1905/19/20 05:15 05:31 05:40 Temperature Pulse Rate Respiratory Rate Blood Pressure 128/57 150/75 150/75 O2 Sat by Pulse 86 99 94 Oximetry 05/19/19 05/19/19 05:51 06:00 Temperature Pulse Rate Respiratory Rate Blood Pressure 158/89 181/76 O2 Sat by Pulse 87 96 Oximetry - Reevaluation(s) Reevaluation #1: 05/19/19 00:14 Differential diagnosis, including not limited to: Anal fissure, perirectal abscess, internal hemorrhoid, diverticulosis, diverticulitis Assessment and plan: 73-year-old female with numerous complex chronic medical issues, presenting with her daughter with a primary complaint of brown stool with red blood, and perirectal pain. The patient is afebrile with reassuring vital signs. Family indicates that she is at her mental status baseline. Her examination today appears to be consistent with prior documented examinations from her hospitalization last month. We will obtain screening laboratory studies, CT scan pelvis, and reassess. Reevaluation #2: 05/19/19 01:21 As per verbal report from family, patient recently started immunotherapy. This is the most likely reason for her leukocytosis. Hemoglobin, hematocrit appear to be at baseline. Patient also found to have acute on chronic renal insufficiency, creatinine of 2.9. IV contrast study is canceled. Desmopressin IV is ordered. INR is appreciated. We will discuss with gastroenterology on-call. We will plan to admit the patient to the medical service. Reevaluation #3: 05/19/19 02:37 CT scan of the pelvis is negative for acute disease. Case is presented to the hospital physician, Dr. Youngblood, who accepts the patient to the medical service. - Consultations Consultation #1: 05/19/19 01:22 Discussed with gastroenterology on-call, Dr. Dunbar, who agrees this plan of care, and indicates her group can see the patient in the morning for consultation and follow-up. ED Medical Decision Making - Lab Data Result diagrams: 05/19/19 04:23 05/19/19 04:23 Vital Signs 05/18/19 05/18/19 05/18/19 20:14 20:37 23:15 Temperature 97.5 F L Pulse Rate 92 H Respiratory 18 Rate Blood Pressure 109/55 136/61 O2 Sat by Pulse 71 L 97 Oximetry 05/18/19 05/18/19 23:30 23:45 Temperature Pulse Rate Respiratory Rate Blood Pressure 127/67 118/57 O2 Sat by Pulse 100 98 Oximetry Vital Signs 05/18/19 05/18/19 05/18/19 20:14 20:37 23:15 Temperature 97.5 F L Pulse Rate 92 H Respiratory 18 Rate Blood Pressure 109/55 136/61 O2 Sat by Pulse 71 L 97 Oximetry 05/18/19 05/18/19 23:30 23:45 Temperature Pulse Rate Respiratory Rate Blood Pressure 127/67 118/57 O2 Sat by Pulse 100 98 Oximetry Lab Results 05/19/19 05/19/19 05/19/19 Range/Units 00:25 00:25 00:25 WBC 28.9 H (4.5-11.0) K/mm3 RBC 3.46 L (3.65-5.03) M/mm3 Hgb 9.1 L (10.1-14.3) gm/dl Hct 28.5 L (30.3-42.9) % MCV 83 (79-97) fl MCH 26 L (28-32) pg MCHC 32 (30-34) % RDW 20.2 H (13.2-15.2) % Plt Count 422 (140-440) K/mm3 PT 26.0 H (12.2-14.9) Sec. INR 2.33 H (0.87-1.13) APTT 47.3 H (24.2-36.6) Sec. Sodium 131 L (137-145) mmol/L Potassium 5.1 H (3.6-5.0) mmol/L Chloride 97.3 L (98-107) mmol/L Carbon Dioxide 21 L (22-30) mmol/L Anion Gap 18 mmol/L BUN 105 H (7-17) mg/dL Creatinine 2.9 H (0.7-1.2) mg/dL Estimated GFR 19 ml/min BUN/Creatinine Ratio 36 % Glucose 158 H (65-100) mg/dL Calcium 10.9 H (8.4-10.2) mg/dL Magnesium 2.30 (1.7-2.3) mg/dL Total Creatine Kinase 20 L (30-135) units/L - EKG Data -: EKG Interpreted by [facility] EKG shows normal: sinus rhythm Rate: normal - EKG Data 05/19/19 02:40 Sinus rhythm, 88 bpm, normal axis, QTC 422 ms, poor R wave progression, low voltage, question delta wave in the high lateral leads, the EKG is abnormal, it is not consistent with ST elevation myocardial infarction. - Radiology Data Radiology results: pending, report reviewed, image reviewed Critical care attestation.: If time is entered above; I have spent that time in minutes in the direct care of this critically ill patient, excluding procedure time. ED Disposition Clinical Impression: NEELIMA (acute kidney injury), LGI bleed, Rectal pain Disposition: OP ADMIT IP TO THIS HOSP Is pt being admited?: Yes Does the pt Need Aspirin: No Condition: Fair
[2019-05-19 00:51] LABS: Hematocrit 28.5 % (30.3-42.9); Hemoglobin 9.1 gm/dl (10.1-14.3); Mean Corpuscular HGB Conc 32 % (30-34); Mean Corpuscular Volume 83 fl (79-97); Platelet Count 422 K/mm3 (140-440); Red Blood Count 3.46 M/mm3 (3.65-5.03)
[2019-05-19 00:52] LABS: Red Cell Distribution Width 20.2 % (13.2-15.2)
[2019-05-19 01:01] LABS: INR 2.33 (0.87-1.13)
[2019-05-19 01:02] LABS: Partial Thromboplastin Time 47.3 Sec. (24.2-36.6)
[2019-05-19 01:06] LABS: Calcium 10.9 mg/dL (8.4-10.2)
[2019-05-19] MEDS ORDERED: SODIUM CHLORIDE 0.9% 250ML 250 ML IV ONE (01:16)
[2019-05-19] MEDS ORDERED: DESMOPRESSIN ACETATE IV ONE (01:48)
[2019-05-19] MEDS ORDERED: SODIUM CHLORIDE 0.9% IV ONE (01:48)
--- NOTE | 2019-05-19 02:35 | Cat Scan Report ---
CT pelvis wo con INDICATION: Rectal pain with bleeding. Possible GI bleed. TECHNIQUE: Axial, coronal and sagittal CT imaging was performed through the pelvis without IV contrast and with oral contrast. All CT scans at this location are performed using CT dose reduction for ALARA by means of automated exposure control. COMPARISON: CT abdomen and pelvis with contrast from 03/08/2019. FINDINGS: Lack of IV contrast and the presence of oral contrast limits evaluation for a GI bleed. GI tract: No acute abnormality is seen along the visualized portions of the colon and small bowel. Th e appendix is unremarkable. Peritoneum: No free air, free fluid or fluid collection. Lymph nodes: No significant adenopathy. Vasculature: There is moderate to severe generalized atherosclerosis without an additional significan t abnormality. Urinary bladder: No significant abnormality. Reproductive organs: Prior hysterectomy. No significant abnormality. Additional findings: Injection granulomas are seen along the gluteal subcutaneous tissues bilaterally . There is generalized subcutaneous edema. Bones: No acute abnormality. Moderate to severe degenerative changes are noted along the lumbar spine with mild degenerative changes of the SI joints. IMPRESSION: 1. No acute abnormality of the pelvis. 2. Additional findings as above. Signer Name: Filiberto Rueda MD Signed: 05/19/2019 2:30 AM Workstation Name: [id number]
[2019-05-19] MEDS ORDERED: VANCOMYCIN/NS 1 GM/250 ML 1 GM/250 ML BAG IV ONE (04:11)
[2019-05-19] MEDS ORDERED: ONDANSETRON 4 MG/2 ML INJ IV PRN (04:12)
[2019-05-19] MEDS ORDERED: ACETAMINOPHEN 325 MG TAB PO PRN (04:12)
[2019-05-19] MEDS ORDERED: VANCOMYCIN 500 MG in SODIUM CHLORIDE 0.9% 500 ML 500 ML IV ONE (04:15)
--- NOTE | 2019-05-19 04:20 | History and Physical Report ---
History of Present Illness History of present illness: 73-year-old lady with a history of coronary artery disease, CHF, COPD, diabetes, chronic kidney disease, A. fib on anticoagulation, lung cancer with recurrent pleural effusion, status post Pleurx catheter drain was brought to the emergency room for complaint of rectal pain. Most of the history is per the daughter at bedside who states that she has been having rectal pain for 1 week, her symptoms worsened today and was associated with blood in her stool x2. She has had no further bleeding since she has been here in the emergency room. Recently started on immunotherapy for lung cancer, patient is being admitted for work-up of GI bleed Review Of Systems: Constitutional: no weight loss, fever, chills Ears, eyes, nose, mouth and throat: no nasal congestion, no nasal discharge, no sinus pressure, blurry vision, diplopia Neck: No neck pain or rigidity. Cardiovascular: No palpitations, chest pain Respiratory: No shortness of breath, cough Gastrointestinal: +hematochezia Genitourinary : no dysuria, frequency Musculoskeletal: no muscle ache , joint pain Integumentary: no rash, no pruritis Neurological: no parathesias, focal weakness Endocrine: no cold or heat intolerance, no polyuria or polydipsia Hematologic/Lymphatic: no easy bruising, no easy bleeding, no gland swelling Allergic/Immunologic: no urticaria, no angioedema. PAST MEDICAL HISTORY: coronary artery disease, CHF, COPD, diabetes, chronic kidney disease, A. fib, lung cancer with pleural effusion PAST SURGICAL HISTORY:port placement SOCIAL HISTORY: Denies alcohol, tobacco, drugs FAMILY HISTORY: Hypertension Medications and Allergies Allergies Allergy/AdvReac Type Severity Reaction Status Date / Time ibuprofen Allergy Unknown Verified 02/18/19 23:29 Penicillins Allergy Unknown Verified 02/18/19 23:29 Home Medications Medication Instructions Recorded Confirmed Last Taken Type ALBUTEROL NEB's [Proventil 0.083% 2.5 mg IH Q3HRT PRN #100 nebu 03/16/19 04/17/19 Unknown Rx NEBS] Aspirin EC 325 mg PO QDAY #30 tablet 03/16/19 04/17/19 03/17/19 10:00 Rx 325 mg Cilostazol [Pletal] 50 mg PO BID #60 tablet 03/16/19 04/17/19 03/17/19 10:00 Rx 50 mg Ferrous Sulfate [Feosol 325 MG tab] 325 mg PO DAILY #30 tablet 03/16/19 04/17/19 03/17/19 10:00 Rx 325 mg Folic Acid [Folvite] 1 mg PO QDAY #30 tablet 03/16/19 04/17/19 03/17/19 10:00 Rx 1 mg ISOSORBIDE MONOnitrate [Imdur ER] 120 mg PO QDAY #1 tablet 03/16/19 04/17/19 03/17/19 10:00 Rx 120 mg Insulin NPH/Regular [NovoLIN 70/30] 10 unit SUB-Q BIDDIAB units 03/16/19 04/17/19 Unknown Rx Ipratropium (Nf) [Atrovent HFA 2 puff IH Q6HR PRN #1 inha 03/16/19 04/17/19 Unknown Rx 17MCG/PUFF] Pantoprazole [Protonix TAB] 40 mg PO QDAY #30 tablet 03/16/19 04/17/19 03/17/19 10:00 Rx 40 mg allopurinoL [Zyloprim] 100 mg PO DAILY #30 tablet 03/16/19 04/17/19 03/17/19 10:00 Rx 100 mg hydrALAZINE [Apresoline TAB] 25 mg PO Q8HR #90 tablet 03/16/19 04/17/19 03/17/19 10:00 Rx 25 mg hydrOXYzine HCL [Atarax] 10 mg PO Q6H PRN #30 tablet 03/16/19 04/17/19 Unknown Rx oxyCODONE /ACETAMINOPHEN [Percocet 1 tab PO Q6H PRN #8 tablet 03/16/19 04/17/19 Unknown Rx 5/325 mg] Apixaban [Eliquis] 5 mg PO BID #30 tablet 03/19/19 04/17/19 Unknown Rx Insulin NPH/Regular [NovoLIN 70/30] See Protocol SUB-Q ACHS #300 units 04/05/19 04/17/19 Unknown Rx Metoprolol [Lopressor TAB] 50 mg PO BIDDIAB tablet 04/05/19 04/17/19 Unknown Rx Active Meds: Active Medications Acetaminophen (Tylenol) 650 mg PO Q4H PRN PRN Reason: Pain MILD(1-3)/Fever >100.5/BRENNER Levofloxacin/Dextrose (Levaquin 500mg/100ml) 500 mg in 100 mls @ 100 mls/hr IV ONCE ONE; Protocol Stop: 05/19/19 10:59 Levofloxacin/Dextrose (Levaquin 250mg/50ml) 250 mg in 50 mls @ 50 mls/hr IV Q24HR MAYLIN Sodium Chloride (Nacl 0.45% 1000 Ml) 1,000 mls @ 50 mls/hr IV DIRECT MAYLIN Vancomycin HCl 500 mg/ Sodium (Chloride) 510 mls @ 333 mls/hr IV ONCE ONE; Protocol Stop: 05/19/19 05:47 Ondansetron HCl (Zofran) 4 mg IV Q8H PRN PRN Reason: Nausea And Vomiting Sodium Chloride (Sodium Chloride Flush Syringe 10 Ml) 10 ml IV BID MAYLIN Sodium Chloride (Sodium Chloride Flush Syringe 10 Ml) 10 ml IV PRN PRN PRN Reason: LINE FLUSH Exam - Physical Exam Narrative exam: Gen. appearance: Patient lying in bed, no apparent distress HEENT: Normocephalic, atraumatic, pupils equally round and reactive to light, extraocular movement intact, and no sclericterus,. No JVD or thyromegaly or nodule,neck supple, no carotid bruit ,mucous membranes moist, no exudate or erythema Heart: S1, S2, regular rate and rhythm Lungs: Decreased breath sound at the base bilaterally, breathing comfortable Abdomen: Positive bowel sounds, nontender, nondistended, no organomegaly Extremity: no edema, cyanosis, clubbing Skin: No rash, nodules, warm, dry Neuro: speech is fluent, moves extremities, sensory intact - Constitutional Vitals: Temp Pulse Resp BP Pulse Ox 97.5 F L 92 H 18 118/57 98 05/18/19 20:14 05/18/19 20:14 05/18/19 20:14 05/18/19 23:45 05/18/19 23:45 Results - Labs CBC & Chem 7: 05/19/19 00:25 05/19/19 00:25 Labs: Abnormal lab results 05/19/19 05/19/19 05/19/19 Range/Units 00:25 00:25 00:25 WBC 28.9 H (4.5-11.0) K/mm3 RBC 3.46 L (3.65-5.03) M/mm3 Hgb 9.1 L (10.1-14.3) gm/dl Hct 28.5 L (30.3-42.9) % MCH 26 L (28-32) pg RDW 20.2 H (13.2-15.2) % PT 26.0 H (12.2-14.9) Sec. INR 2.33 H (0.87-1.13) APTT 47.3 H (24.2-36.6) Sec. Sodium 131 L (137-145) mmol/L Potassium 5.1 H (3.6-5.0) mmol/L Chloride 97.3 L (98-107) mmol/L Carbon Dioxide 21 L (22-30) mmol/L BUN 105 H (7-17) mg/dL Creatinine 2.9 H (0.7-1.2) mg/dL Glucose 158 H (65-100) mg/dL Calcium 10.9 H (8.4-10.2) mg/dL Total Creatine Kinase 20 L (30-135) units/L - Imaging and Cardiology CT scan - pelvis: report reviewed Assessment and Plan Assessment GI bleed Hemoglobin is stable, GI was consulted to see the patient Continue to monitor bleeding, hemoglobin Since the patient has no further bleeding will not reverse INR given history of A. fib Acute renal failure on chronic Start gentle IV fluid, consult nephrology, monitor kidney function Hold nephrotoxic agents, check ultrasound of the kidneys SIRS Patient looks nontoxic, start empiric antibiotic, routine cultures Chronic systolic CHF, EF of 30-35% Hold diuretics for now Paroxysmal Atrial fibrillation, stable Cont Eliquis secondary to bleeding Malignant recurrent pleural effusion Patient has a Pleurx drain in place which instructed to drain daily. CAD, Stable Diabetes We will monitor Accu-Cheks DVT prophylaxis
[2019-05-19] MEDS ORDERED: SODIUM CHLORIDE 0.45% 1000 ML 1,000 ML IV SCH (05:00)
[2019-05-19] MEDS ORDERED: VANCOMYCIN/NS 500 MG/100 ML 500 MG/100 ML BAG IV ONE (05:00)
[2019-05-19 05:05] LABS: Hematocrit 31.9 % (30.3-42.9); Mean Corpuscular HGB Conc 31 % (30-34); Mean Corpuscular Volume 83 fl (79-97); Platelet Count 448 K/mm3 (140-440); Red Blood Count 3.83 M/mm3 (3.65-5.03)
[2019-05-19 05:06] LABS: Red Cell Distribution Width 20.2 % (13.2-15.2)
--- NOTE | 2019-05-19 05:49 | Ultrasound Report ---
ULTRASOUND RENAL INDICATION: Acute renal failure. COMPARISON: CT abdomen and pelvis with contrast from 03/08/2019. FINDINGS: RIGHT KIDNEY: Size: 9.4 x 4.7 cm. Echogenicity: Normal. Cortical thickness: Mild thinning, 1.1 cm. Hydronephrosis: None. Cyst or mass: None. Stones: None. LEFT KIDNEY: Size: 10.0 x 5.0 cm. Echogenicity: Normal. Cortical thickness: Mild thinning, 1.0 cm. Hydronephrosis: None. Cyst or mass: A simple appearing upper pole cyst measures up to 1.7 cm. No other solid or cystic lesi ons. Stones: None. Urinary Bladder: No significant abnormality. Free Fluid: None. Additional Findings: There are bilateral pleural effusions, right greater than left. IMPRESSION 1. No acute sonographic abnormality of the kidneys. 2. Additional findings as above. Signer Name: Filiberto Rueda MD Signed: 05/19/2019 5:45 AM Workstation Name: [id number]
[2019-05-19 06:06] LABS: Basophils % (Manual) 0 % (0.0-1.8); Eosinophils % (Manual) 0 % (0.0-4.3); Platelet Estimate Consistent w Auto; Total Cells Counted 100
[2019-05-19 06:07] LABS: Schistocytes Few; Target Cells Few
--- NOTE | 2019-05-19 10:07 | Gastroenterology Consultation ---
History of Present Illness - Reason for Consult Consult date: 05/19/19 hematochezia Requesting physician: JENIFER CUMMINGS - History of Present Illness The patient is a 73 yo aaf who presents with hematochezia and alex-anal pain. Pt with h/o lung cancer with recurrent pleural effusions with drain in place, on immunotherapy, h/o afib on anticoagulation. Pt sleeping/arousable at time of exam; daughter at bedside who helps provide history for pt. She had episodes of blood around stools for 2-3 days prior to admission. She was complaining of pain with bm's prior to admission as well. Denies abd pain. Rectal exam done by ED physician with findings noted (? anal fissure, skin tag, brown stool with trace blood). H/H stable since admission and within baseline. Past History Past Medical History: other (coronary artery disease, CHF, COPD, diabetes, chronic kidney disease, A. fib, lung cancer with pleural effusion) Past Surgical History: Other (port placement) Social history: no significant social history Family history: no significant family history Medications and Allergies Allergies Allergy/AdvReac Type Severity Reaction Status Date / Time ibuprofen Allergy Unknown Verified 02/18/19 23:29 Penicillins Allergy Unknown Verified 02/18/19 23:29 Home Medications Medication Instructions Recorded Confirmed Last Taken Type ALBUTEROL NEB's [Proventil 0.083% 2.5 mg IH Q3HRT PRN #100 nebu 03/16/19 05/19/19 Unknown Rx NEBS] Aspirin EC 325 mg PO QDAY #30 tablet 03/16/19 05/19/19 03/17/19 10:00 Rx 325 mg Cilostazol [Pletal] 50 mg PO BID #60 tablet 03/16/19 05/19/19 03/17/19 10:00 Rx 50 mg Ferrous Sulfate [Feosol 325 MG tab] 325 mg PO DAILY #30 tablet 03/16/19 05/19/19 03/17/19 10:00 Rx 325 mg Folic Acid [Folvite] 1 mg PO QDAY #30 tablet 03/16/19 05/19/19 03/17/19 10:00 Rx 1 mg ISOSORBIDE MONOnitrate [Imdur ER] 120 mg PO QDAY #1 tablet 03/16/19 05/19/19 03/17/19 10:00 Rx 120 mg Insulin NPH/Regular [NovoLIN 70/30] 10 unit SUB-Q BIDDIAB units 03/16/19 05/19/19 Unknown Rx Ipratropium (Nf) [Atrovent HFA 2 puff IH Q6HR PRN #1 inha 03/16/19 05/19/19 Unknown Rx 17MCG/PUFF] Pantoprazole [Protonix TAB] 40 mg PO QDAY #30 tablet 03/16/19 05/19/19 03/17/19 10:00 Rx 40 mg allopurinoL [Zyloprim] 100 mg PO DAILY #30 tablet 03/16/19 05/19/19 03/17/19 10:00 Rx 100 mg hydrALAZINE [Apresoline TAB] 25 mg PO Q8HR #90 tablet 03/16/19 05/19/19 03/17/19 10:00 Rx 25 mg hydrOXYzine HCL [Atarax] 10 mg PO Q6H PRN #30 tablet 03/16/19 05/19/19 Unknown Rx oxyCODONE /ACETAMINOPHEN [Percocet 1 tab PO Q6H PRN #8 tablet 03/16/19 05/19/19 Unknown Rx 5/325 mg] Apixaban [Eliquis] 5 mg PO BID #30 tablet 03/19/19 05/19/19 Unknown Rx Insulin NPH/Regular [NovoLIN 70/30] See Protocol SUB-Q ACHS #300 units 04/05/19 05/19/19 Unknown Rx Metoprolol [Lopressor TAB] 50 mg PO BIDDIAB tablet 04/05/19 05/19/19 Unknown Rx Active Meds: Active Medications Acetaminophen (Tylenol) 650 mg PO Q4H PRN PRN Reason: Pain MILD(1-3)/Fever >100.5/BRENNER Dextrose (D50w (25gm) Syringe) 0 ml IV Q30MIN PRN; Protocol PRN Reason: Hypoglycemia Levofloxacin/Dextrose (Levaquin 500mg/100ml) 500 mg in 100 mls @ 100 mls/hr IV ONCE ONE; Protocol Stop: 05/19/19 10:59 Last Admin: 05/19/19 09:53 Dose: 100 mls/hr Documented by: Levofloxacin/Dextrose (Levaquin 250mg/50ml) 250 mg in 50 mls @ 50 mls/hr IV Q24HR MAYLIN Sodium Chloride (Nacl 0.45% 1000 Ml) 1,000 mls @ 50 mls/hr IV DIRECT MAYLIN Ondansetron HCl (Zofran) 4 mg IV Q8H PRN PRN Reason: Nausea And Vomiting Sodium Chloride (Sodium Chloride Flush Syringe 10 Ml) 10 ml IV BID MAYLIN Last Admin: 05/19/19 09:54 Dose: 10 ml Documented by: Sodium Chloride (Sodium Chloride Flush Syringe 10 Ml) 10 ml IV PRN PRN PRN Reason: LINE FLUSH Reviewed/updated patient's home and current medications Review of Systems - Review of Systems All systems: negative (sob, weakness/fatigue) Exam - Constitutional Vital Signs: Temp Pulse Resp BP Pulse Ox 97.5 F L 92 H 18 113/67 96 05/18/19 20:14 05/18/19 20:14 05/18/19 20:14 05/19/19 09:23 05/19/19 06:00 General appearance: no acute distress - Respiratory Respiratory effort: normal Respiratory: bilateral: diminished - Cardiovascular Rhythm: regular Heart Sounds: Present: S1 & S2 - Gastrointestinal General gastrointestinal: Present: soft, non-tender, non-distended - Integumentary Integumentary: Present: clear, warm - Psychiatric Psychiatric: appropriate mood/affect - Labs CBC & Chem 7: 05/19/19 04:23 05/19/19 04:23 Lab Results: Laboratory Results - last 24 hr 05/19/19 05/19/19 05/19/19 00:25 00:25 00:25 WBC 28.9 H RBC 3.46 L Hgb 9.1 L Hct 28.5 L MCV 83 MCH 26 L MCHC 32 RDW 20.2 H Plt Count 422 Add Manual Diff Total Counted Seg Neutrophils % Seg Neuts % (Manual) Band Neutrophils % Lymphocytes % (Manual) Reactive Lymphs % (Man) Monocytes % (Manual) Eosinophils % (Manual) Basophils % (Manual) Metamyelocytes % Myelocytes % Promyelocytes % Blast Cells % Nucleated RBC % Seg Neutrophils # Man Band Neutrophils # Lymphocytes # (Manual) Abs React Lymphs (Man) Monocytes # (Manual) Eosinophils # (Manual) Basophils # (Manual) Metamyelocytes # Myelocytes # Promyelocytes # Blast Cells # WBC Morphology Hypersegmented Neuts Hyposegmented Neuts Hypogranular Neuts Smudge Cells Toxic Granulation Toxic Vacuolation Dohle Bodies Pelger-Huet Anomaly Jessica Rods Platelet Estimate Clumped Platelets Plt Clumps, EDTA Large Platelets Giant Platelets Platelet Satelliting Plt Morphology Comment RBC Morphology Dimorphic RBCs Polychromasia Hypochromasia Poikilocytosis Anisocytosis Microcytosis Macrocytosis Spherocytes Pappenheimer Bodies Sickle Cells Target Cells Tear Drop Cells Ovalocytes Helmet Cells Ling-[place] Bodies [place] Rings Lora Cells Bite Cells Crenated Cell Elliptocytes Acanthocytes (Spur) Rouleaux Hemoglobin C Crystals Schistocytes Malaria parasites Galen Bodies Hem Pathologist Commnt PT 26.0 H INR 2.33 H APTT 47.3 H Sodium 131 L Potassium 5.1 H Chloride 97.3 L Carbon Dioxide 21 L Anion Gap 18 BUN 105 H Creatinine 2.9 H Estimated GFR 19 BUN/Creatinine Ratio 36 Glucose 158 H POC Glucose Calcium 10.9 H Magnesium 2.30 Total Creatine Kinase 20 L Blood Type Antibody Screen 05/19/19 05/19/19 05/19/19 01:37 04:23 04:23 WBC 27.6 H RBC 3.83 Hgb 10.0 L Hct 31.9 MCV 83 MCH 26 L MCHC 31 RDW 20.2 H Plt Count 448 H Add Manual Diff Complete Total Counted 100 Seg Neutrophils % Solar System [employer]er Seg Neuts % (Manual) 94.0 H Band Neutrophils % 0 Lymphocytes % (Manual) 3.0 L Reactive Lymphs % (Man) 0 Monocytes % (Manual) 3.0 Eosinophils % (Manual) 0 Basophils % (Manual) 0 Metamyelocytes % 0 Myelocytes % 0 Promyelocytes % 0 Blast Cells % 0 Nucleated RBC % Not Reportable Seg Neutrophils # Man 25.9 H Band Neutrophils # 0.0 Lymphocytes # (Manual) 0.8 L Abs React Lymphs (Man) 0.0 Monocytes # (Manual) 0.8 Eosinophils # (Manual) 0.0 Basophils # (Manual) 0.0 Metamyelocytes # 0.0 Myelocytes # 0.0 Promyelocytes # 0.0 Blast Cells # 0.0 WBC Morphology Not Reportable Hypersegmented Neuts Not Reportable Hyposegmented Neuts Not Reportable Hypogranular Neuts Not Reportable Smudge Cells Not Reportable Toxic Granulation Not Reportable Toxic Vacuolation Not Reportable Dohle Bodies Not Reportable Pelger-Huet Anomaly Not Reportable Jessica Rods Not Reportable Platelet Estimate Consistent w auto Clumped Platelets Not Reportable Plt Clumps, EDTA Not Reportable Large Platelets Not Reportable Giant Platelets Not Reportable Platelet Satelliting Not Reportable Plt Morphology Comment Not Reportable RBC Morphology Not Reportable Dimorphic RBCs Not Reportable Polychromasia Not Reportable Hypochromasia Not Reportable Poikilocytosis Not Reportable Anisocytosis Not Reportable Microcytosis Not Reportable Macrocytosis Not Reportable Spherocytes Not Reportable Pappenheimer Bodies Not Reportable Sickle Cells Not Reportable Target Cells Few Tear Drop Cells Not Reportable Ovalocytes Not Reportable Helmet Cells Not Reportable Ling-[place] Bodies Not Reportable [place] Rings Not Reportable Lora Cells Not Reportable Bite Cells Not Reportable Crenated Cell Not Reportable Elliptocytes Not Reportable Acanthocytes (Spur) Not Reportable Rouleaux Not Reportable Hemoglobin C Crystals Not Reportable Schistocytes Few Malaria parasites Not Reportable Galen Bodies Not Reportable Hem Pathologist Commnt No PT INR APTT Sodium 132 L Potassium 5.6 H Chloride 95.5 L Carbon Dioxide 21 L Anion Gap 21 BUN 106 H Creatinine 2.9 H Estimated GFR 19 BUN/Creatinine Ratio 37 Glucose 128 H POC Glucose Calcium 11.0 H Magnesium Total Creatine Kinase Blood Type O POSITIVE Antibody Screen Negative 05/19/19 09:07 WBC RBC Hgb Hct MCV MCH MCHC RDW Plt Count Add Manual Diff Total Counted Seg Neutrophils % Seg Neuts % (Manual) Band Neutrophils % Lymphocytes % (Manual) Reactive Lymphs % (Man) Monocytes % (Manual) Eosinophils % (Manual) Basophils % (Manual) Metamyelocytes % Myelocytes % Promyelocytes % Blast Cells % Nucleated RBC % Seg Neutrophils # Man Band Neutrophils # Lymphocytes # (Manual) Abs React Lymphs (Man) Monocytes # (Manual) Eosinophils # (Manual) Basophils # (Manual) Metamyelocytes # Myelocytes # Promyelocytes # Blast Cells # WBC Morphology Hypersegmented Neuts Hyposegmented Neuts Hypogranular Neuts Smudge Cells Toxic Granulation Toxic Vacuolation Dohle Bodies Pelger-Huet Anomaly Jessica Rods Platelet Estimate Clumped Platelets Plt Clumps, EDTA Large Platelets Giant Platelets Platelet Satelliting Plt Morphology Comment RBC Morphology Dimorphic RBCs Polychromasia Hypochromasia Poikilocytosis Anisocytosis Microcytosis Macrocytosis Spherocytes Pappenheimer Bodies Sickle Cells Target Cells Tear Drop Cells Ovalocytes Helmet Cells Ling-[place] Bodies Alton Rings Lora Cells Bite Cells Crenated Cell Elliptocytes Acanthocytes (Spur) Rouleaux Hemoglobin C Crystals Schistocytes Malaria parasites Galen Bodies Hem Pathologist Commnt PT INR APTT Sodium Potassium Chloride Carbon Dioxide Anion Gap BUN Creatinine Estimated GFR BUN/Creatinine Ratio Glucose POC Glucose 99 Calcium Magnesium Total Creatine Kinase Blood Type Antibody Screen Assessment and Plan 1. Hematochezia 2. History of lung cancer 3. Chronic anemia 4. Afib on anticoagulation -description of bleeding/symptoms suggestive of ano-rectal source (fissure vs hemorrhoids). H/h stable. bowel regimen daily to avoid constipation/straining and monitor labs. if pain persists, then would try nitrogylcerin ointment for possible fissure. if no significant pain, then bowel regimen/hemorrhoidal cream daily. will follow.
--- NOTE | 2019-05-19 11:54 | Consultation ---
History of Present Illness - Reason for Consult Consult date: 05/19/19 acute renal failure Medications and Allergies Allergies Allergy/AdvReac Type Severity Reaction Status Date / Time ibuprofen Allergy Unknown Verified 02/18/19 23:29 Penicillins Allergy Unknown Verified 02/18/19 23:29 Home Medications Medication Instructions Recorded Confirmed Last Taken Type ALBUTEROL NEB's [Proventil 0.083% 2.5 mg IH Q3HRT PRN #100 nebu 03/16/19 05/19/19 Unknown Rx NEBS] Aspirin EC 325 mg PO QDAY #30 tablet 03/16/19 05/19/19 03/17/19 10:00 Rx 325 mg Cilostazol [Pletal] 50 mg PO BID #60 tablet 03/16/19 05/19/19 03/17/19 10:00 Rx 50 mg Ferrous Sulfate [Feosol 325 MG tab] 325 mg PO DAILY #30 tablet 03/16/19 05/19/19 03/17/19 10:00 Rx 325 mg Folic Acid [Folvite] 1 mg PO QDAY #30 tablet 03/16/19 05/19/19 03/17/19 10:00 Rx 1 mg ISOSORBIDE MONOnitrate [Imdur ER] 120 mg PO QDAY #1 tablet 03/16/19 05/19/19 03/17/19 10:00 Rx 120 mg Insulin NPH/Regular [NovoLIN 70/30] 10 unit SUB-Q BIDDIAB units 03/16/19 05/19/19 Unknown Rx Ipratropium (Nf) [Atrovent HFA 2 puff IH Q6HR PRN #1 inha 03/16/19 05/19/19 Unknown Rx 17MCG/PUFF] Pantoprazole [Protonix TAB] 40 mg PO QDAY #30 tablet 03/16/19 05/19/19 03/17/19 10:00 Rx 40 mg allopurinoL [Zyloprim] 100 mg PO DAILY #30 tablet 03/16/19 05/19/19 03/17/19 10:00 Rx 100 mg hydrALAZINE [Apresoline TAB] 25 mg PO Q8HR #90 tablet 03/16/19 05/19/19 03/17/19 10:00 Rx 25 mg hydrOXYzine HCL [Atarax] 10 mg PO Q6H PRN #30 tablet 03/16/19 05/19/19 Unknown Rx oxyCODONE /ACETAMINOPHEN [Percocet 1 tab PO Q6H PRN #8 tablet 03/16/19 05/19/19 Unknown Rx 5/325 mg] Apixaban [Eliquis] 5 mg PO BID #30 tablet 03/19/19 05/19/19 Unknown Rx Insulin NPH/Regular [NovoLIN 70/30] See Protocol SUB-Q ACHS #300 units 04/05/19 05/19/19 Unknown Rx Metoprolol [Lopressor TAB] 50 mg PO BIDDIAB tablet 04/05/19 05/19/19 Unknown Rx Active Meds: Active Medications Acetaminophen (Tylenol) 650 mg PO Q4H PRN PRN Reason: Pain MILD(1-3)/Fever >100.5/BRNENER Dextrose (D50w (25gm) Syringe) 0 ml IV Q30MIN PRN; Protocol PRN Reason: Hypoglycemia Levofloxacin/Dextrose (Levaquin 250mg/50ml) 250 mg in 50 mls @ 50 mls/hr IV Q24HR MAYLIN Sodium Chloride (Nacl 0.45% 1000 Ml) 1,000 mls @ 50 mls/hr IV DIRECT MAYLIN Ondansetron HCl (Zofran) 4 mg IV Q8H PRN PRN Reason: Nausea And Vomiting Sodium Chloride (Sodium Chloride Flush Syringe 10 Ml) 10 ml IV BID MAYLIN Last Admin: 05/19/19 09:54 Dose: 10 ml Documented by: Sodium Chloride (Sodium Chloride Flush Syringe 10 Ml) 10 ml IV PRN PRN PRN Reason: LINE FLUSH Exam - Vital Signs Vital signs: Vital Signs Temp Pulse Resp BP Pulse Ox 97.5 F L 92 H 18 109/55 71 L 05/18/19 20:14 05/18/19 20:14 05/18/19 20:14 05/18/19 20:14 05/18/19 20:14 Results - Lab Results 05/19/19 04:23 05/19/19 04:23 Most recent lab results Calcium 11.0 mg/dL (8.4-10.2) H 05/19/19 04:23 Magnesium 2.30 mg/dL (1.7-2.3) 05/19/19 00:25
--- NOTE | 2019-05-19 14:39 | Consultation ---
History of Present Illness - Reason for Consult Consult date: 05/19/19 acute renal failure - History of Present Illness This patient is a poor historian and daughter is not present at bedside. The HPI is derived from ED notes. This is a 73 year old female patient with pmh significant for coronary artery disease, COPD, congestive heart failure, diabetes mellitus, chronic kidney disease, atrial fibrillation, stage IV lung cancer with recurrent pleural effusion. She was recently started on imm unotherapy treatment for her lung cancer. She recently had a Pleurx catheter drain placed and presented to the ED with complaints of rectal pain. In addition, daughter stated that patient has had two episodes of blood in her stool. Since admission, no s/s bleeding. Her baseline creatinine appears to be 1.5-2.0. Renal US showed mild cortical thinning bilaterally, no hydro, and simple cyst on upper pole of left kidney. On admission, labs significant for serum sodium 131, potassium 5.1, bicarb 21, creatinine 2.9, and hemoglobin 9.1. At time of consult, labs significant for serum sodium 132, potassium 5.6, bicarb 21, creatinine 2.9, and hemoglobin 10.0. Nephrology was consulted for further evaluation of acute kidney injury. Past History Past Medical History: atrial fib, CAD, cancer (stage IV lung), COPD, diabetes, heart failure, other (ckd) Past Surgical History: Other (port placement) Social history: no significant social history Family history: no significant family history Medications and Allergies Allergies Allergy/AdvReac Type Severity Reaction Status Date / Time ibuprofen Allergy Unknown Verified 02/18/19 23:29 Penicillins Allergy Unknown Verified 02/18/19 23:29 Home Medications Medication Instructions Recorded Confirmed Last Taken Type ALBUTEROL NEB's [Proventil 0.083% 2.5 mg IH Q3HRT PRN #100 nebu 03/16/19 05/19/19 Unknown Rx NEBS] Aspirin EC 325 mg PO QDAY #30 tablet 03/16/19 05/19/19 03/17/19 10:00 Rx 325 mg Cilostazol [Pletal] 50 mg PO BID #60 tablet 03/16/19 05/19/19 03/17/19 10:00 Rx 50 mg Ferrous Sulfate [Feosol 325 MG tab] 325 mg PO DAILY #30 tablet 03/16/19 05/19/19 03/17/19 10:00 Rx 325 mg Folic Acid [Folvite] 1 mg PO QDAY #30 tablet 03/16/19 05/19/19 03/17/19 10:00 Rx 1 mg ISOSORBIDE MONOnitrate [Imdur ER] 120 mg PO QDAY #1 tablet 03/16/19 05/19/19 03/17/19 10:00 Rx 120 mg Insulin NPH/Regular [NovoLIN 70/30] 10 unit SUB-Q BIDDIAB units 03/16/19 05/19/19 Unknown Rx Ipratropium (Nf) [Atrovent HFA 2 puff IH Q6HR PRN #1 inha 03/16/19 05/19/19 Unknown Rx 17MCG/PUFF] Pantoprazole [Protonix TAB] 40 mg PO QDAY #30 tablet 03/16/19 05/19/19 03/17/19 10:00 Rx 40 mg allopurinoL [Zyloprim] 100 mg PO DAILY #30 tablet 03/16/19 05/19/19 03/17/19 10:00 Rx 100 mg hydrALAZINE [Apresoline TAB] 25 mg PO Q8HR #90 tablet 03/16/19 05/19/19 03/17/19 10:00 Rx 25 mg hydrOXYzine HCL [Atarax] 10 mg PO Q6H PRN #30 tablet 03/16/19 05/19/19 Unknown Rx oxyCODONE /ACETAMINOPHEN [Percocet 1 tab PO Q6H PRN #8 tablet 03/16/19 05/19/19 Unknown Rx 5/325 mg] Apixaban [Eliquis] 5 mg PO BID #30 tablet 03/19/19 05/19/19 Unknown Rx Insulin NPH/Regular [NovoLIN 70/30] See Protocol SUB-Q ACHS #300 units 04/05/19 05/19/19 Unknown Rx Metoprolol [Lopressor TAB] 50 mg PO BIDDIAB tablet 04/05/19 05/19/19 Unknown Rx Active Meds: Active Medications Acetaminophen (Tylenol) 650 mg PO Q4H PRN PRN Reason: Pain MILD(1-3)/Fever >100.5/BRENNER Dextrose (D50w (25gm) Syringe) 0 ml IV Q30MIN PRN; Protocol PRN Reason: Hypoglycemia Levofloxacin/Dextrose (Levaquin 250mg/50ml) 250 mg in 50 mls @ 50 mls/hr IV Q24HR MAYLIN Sodium Chloride (Nacl 0.45% 1000 Ml) 1,000 mls @ 50 mls/hr IV DIRECT MAYLIN Ondansetron HCl (Zofran) 4 mg IV Q8H PRN PRN Reason: Nausea And Vomiting Sodium Chloride (Sodium Chloride Flush Syringe 10 Ml) 10 ml IV BID [facility] Last Admin: 05/19/19 09:54 Dose: 10 ml Documented by: Sodium Chloride (Sodium Chloride Flush Syringe 10 Ml) 10 ml IV PRN PRN PRN Reason: LINE FLUSH Review of Systems Constitutional: no weight loss, no weight gain, no fever, no chills, no sweats Ears, nose, mouth and throat: no nasal congestion, no nasal discharge, no epistaxis Cardiovascular: no chest pain, no shortness of breath Respiratory: no cough, no shortness of breath Gastrointestinal: hematochezia, no abdominal pain, no nausea, no vomiting, no diarrhea Musculoskeletal: no frequent falls Integumentary: no rash, no pruritis, no redness Exam - Vital Signs Vital signs: Vital Signs Temp Pulse Resp BP Pulse Ox 97.5 F L 92 H 18 109/55 71 L 05/18/19 20:14 05/18/19 20:14 05/18/19 20:14 05/18/19 20:14 05/18/19 20:14 - General Appearance General appearance: well-developed, appears stated age, frail EENT: ATNC, PERRL Neck: Present: neck supple, trachea midline Respiratory: Clear to Ascultation, Decreased Breath Sounds (bibasilar ) Heart: regular, normal heart rate, S1S2, no murmurs Gastrointestinal: Present: normal, normoactive bowel sounds. Absent: tenderness, distended, masses, organomegaly Integumentary: no rash, warm and dry Neurologic: no focal deficit, other (alert, awake) Musculoskeletal: Present: other (able to move all extremities) Psychiatric: mood/affect appropriate, cooperative Results - Lab Results 05/19/19 04:23 05/19/19 04:23 Most recent lab results Calcium 11.0 mg/dL (8.4-10.2) H 05/19/19 04:23 Magnesium 2.30 mg/dL (1.7-2.3) 05/19/19 00:25 Assessment and Plan 1. Acute kidney injury: Likely vasomotor NEELIMA superimposed on CKD stage 3. Renal US negative for hydro but shows bilateral cortical thinning as well as simple cyst in the upper pole of left kidney. Urine studies ordered. Switched IV fluids to D5W NS at 75 cc/hr. Monitor renal function. Current creatinine is 2.9. Avoid nephrotoxic agents. Meds dosage based on GFR. 2. FEN: Hyponatremia, mild, continue IV fluids, monitor. Hyperkalemia, worsening, 5.6 from 5.1. D5 25 G & 5 units Insulin ordered, monitor. Metabolic acidosis, monitor. Monitor lytes. 3. GI bleed: Hgb stable. GI following. 4. SIRS: 5. Recurrent pleural effusions in setting of stage IV lung cancer (squamous cell): Pleurx catheter present. Chest Xray pending. 6. Chronic systolic CHF: EF 30-35% Diuretics held. 7. A fib: On Eliquis. 8. Diabetes Mellitus: 9. Hypertension: 10. Anemia:
--- NOTE | 2019-05-19 14:57 | XRay Report ---
CHEST 1 VIEW INDICATION: SOB, lung cancer, tunneled catheter. COMPARISON: 04/26/2019 FINDINGS: Support devices: New device(s): Left central venous catheter is new. The tip is not well imaged. A r ight [id number]-Vued tip is in the right atrium and is unchanged. Heart: Within normal limits. Lungs/Pleura: Persistent opacification of the left hemithorax is stable left chest tube. The right barb ng is unchanged. Additional findings: None. IMPRESSION: 1. Persistent complete opacification of the left hemithorax. 2. New left-sided central venous catheter. Signer Name: Murali Mims MD Signed: 05/19/2019 2:53 PM Workstation Name: [id number]
[2019-05-19] MEDS ORDERED: INSULIN REGULAR, HUMAN 100 UNITS/1 ML IV ONE (15:03)
[2019-05-19] MEDS ORDERED: DEXTROSE 50% IN WATER (25GM) 50 ML SYRINGE IV ONE (15:03)
--- NOTE | 2019-05-19 16:15 | Progress Note ---
Assessment and Plan Assessment and plan: Patient is a 73-year-old woman with a history of coronary artery disease, CHF, COPD, diabetes, chronic kidney disease, A. fib on anticoagulation, lung cancer with recurrent pleural effusion, status post Pleurx catheter drain was brought to the emergency room for complaint of rectal pain. Most of the history is per the daughter at bedside who states that she has been having rectal pain for 1 week, her symptoms worsened today and was associated with blood in her stool x2. She has had no further bleeding since she has been here in the emergency room. Recently started on immunotherapy for lung cancer, patient is being admitted for work-up of GI bleed GI bleed Hemoglobin is stable, GI was consulted to see the patient Continue to monitor bleeding, hemoglobin Since the patient has no further bleeding will not reverse INR given history of A. fib Acute renal failure on chronic Start gentle IV fluid, consult nephrology, monitor kidney function Hold nephrotoxic agents, check ultrasound of the kidneys SIRS Patient looks nontoxic, start empiric antibiotic, routine cultures Chronic systolic CHF, EF of 30-35% Hold diuretics for now Paroxysmal Atrial fibrillation, stable Cont Eliquis secondary to bleeding Malignant recurrent pleural effusion Patient has a Pleurx drain in place which instructed to drain daily. CAD, Stable Diabetes We will monitor Accu-Cheks DVT prophylaxis History Interval history: Patient was seen and examined. Follow-up on current diagnosis of GIB. Overnight uneventful as no events directly reported to me. Patient denies any chest pain, shortness breath, nausea/vomiting or severe headaches. Imaging, nursing note, ch art, labs and old chart reviewed. Discussed with patient. Hospitalist Physical - Physical exam Narrative exam: Gen: WDWN, NAD, Awake, Alert, Orientated HEENT: NCAT, EOMI, PERRL, OP Clear Neck: supple, no adenopathy, no thyromegaly, no JVD CVS/Heart: RRR, normal S1S2, pulses present bilaterally Chest/Lungs: CTA B, Symmetrical chest expansion, good air entry bilaterally GI/Abdomen: soft, NTND, good bowel sounds, no guarding or rebound /Bladder: no suprapubic tenderness, no CVA or paraspinal tenderness Extermity/Skin: no c/c/e, no obvious rash MSK: FROM x 4 Neuro: CN 2-12 grossly intact, no new focal deficits Psych: calm - Constitutional Vitals: Temp Pulse Resp BP Pulse Ox 97.5 F L 92 H 18 113/67 96 05/18/19 20:14 05/18/19 20:14 05/18/19 20:14 05/19/19 09:23 05/19/19 06:00 Results - Labs CBC & Chem 7: 05/19/19 04:23 05/19/19 04:23 Labs: Laboratory Last Values WBC 27.6 K/mm3 (4.5-11.0) H 05/19/19 04:23 RBC 3.83 M/mm3 (3.65-5.03) 05/19/19 04:23 Hgb 10.0 gm/dl (10.1-14.3) L 05/19/19 04:23 Hct 31.9 % (30.3-42.9) 05/19/19 04:23 MCV 83 fl (79-97) 05/19/19 04:23 MCH 26 pg (28-32) L 05/19/19 04:23 MCHC 31 % (30-34) 05/19/19 04:23 RDW 20.2 % (13.2-15.2) H 05/19/19 04:23 Plt Count 448 K/mm3 (140-440) H 05/19/19 04:23 Add Manual Diff Complete 05/19/19 04:23 Total Counted 100 05/19/19 04:23 Seg Neutrophils % Link Knitting Machine Operator 05/19/19 04:23 Seg Neuts % (Manual) 94.0 % (40.0-70.0) H 05/19/19 04:23 Band Neutrophils % 0 % 05/19/19 04:23 Lymphocytes % (Manual) 3.0 % (13.4-35.0) L 05/19/19 04:23 Reactive Lymphs % (Man) 0 % 05/19/19 04:23 Monocytes % (Manual) 3.0 % (0.0-7.3) 05/19/19 04:23 Eosinophils % (Manual) 0 % (0.0-4.3) 05/19/19 04:23 Basophils % (Manual) 0 % (0.0-1.8) 05/19/19 04:23 Metamyelocytes % 0 % 05/19/19 04:23 Myelocytes % 0 % 05/19/19 04:23 Promyelocytes % 0 % 05/19/19 04:23 Blast Cells % 0 % 05/19/19 04:23 Nucleated RBC % Not Reportable 05/19/19 04:23 Seg Neutrophils # Man 25.9 K/mm3 (1.8-7.7) H 05/19/19 04:23 Band Neutrophils # 0.0 K/mm3 05/19/19 04:23 Lymphocytes # (Manual) 0.8 K/mm3 (1.2-5.4) L 05/19/19 04:23 Abs React Lymphs (Man) 0.0 K/mm3 05/19/19 04:23 Monocytes # (Manual) 0.8 K/mm3 (0.0-0.8) 05/19/19 04:23 Eosinophils # (Manual) 0.0 K/mm3 (0.0-0.4) 05/19/19 04:23 Basophils # (Manual) 0.0 K/mm3 (0.0-0.1) 05/19/19 04:23 Metamyelocytes # 0.0 K/mm3 05/19/19 04:23 Myelocytes # 0.0 K/mm3 05/19/19 04:23 Promyelocytes # 0.0 K/mm3 05/19/19 04:23 Blast Cells # 0.0 K/mm3 05/19/19 04:23 WBC Morphology Not Reportable 05/19/19 04:23 Hypersegmented Neuts Not Reportable 05/19/19 04:23 Hyposegmented Neuts Not Reportable 05/19/19 04:23 Hypogranular Neuts Not Reportable 05/19/19 04:23 Smudge Cells Not Reportable 05/19/19 04:23 Toxic Granulation Not Reportable 05/19/19 04:23 Toxic Vacuolation Not Reportable 05/19/19 04:23 Dohle Bodies Not Reportable 05/19/19 04:23 Pelger-Huet Anomaly Not Reportable 05/19/19 04:23 Jessica Rods Not Reportable 05/19/19 04:23 Platelet Estimate Consistent w auto 05/19/19 04:23 Clumped Platelets Not Reportable 05/19/19 04:23 Plt Clumps, EDTA Not Reportable 05/19/19 04:23 Large Platelets Not Reportable 05/19/19 04:23 Giant Platelets Not Reportable 05/19/19 04:23 Platelet Satelliting Not Reportable 05/19/19 04:23 Plt Morphology Comment Not Reportable 05/19/19 04:23 RBC Morphology Not Reportable 05/19/19 04:23 Dimorphic RBCs Not Reportable 05/19/19 04:23 Polychromasia Not Reportable 05/19/19 04:23 Hypochromasia Not Reportable 05/19/19 04:23 Poikilocytosis Not Reportable 05/19/19 04:23 Anisocytosis Not Reportable 05/19/19 04:23 Microcytosis Not Reportable 05/19/19 04:23 Macrocytosis Not Reportable 05/19/19 04:23 Spherocytes Not Reportable 05/19/19 04:23 Pappenheimer Bodies Not Reportable 05/19/19 04:23 Sickle Cells Not Reportable 05/19/19 04:23 Target Cells Few 05/19/19 04:23 Tear Drop Cells Not Reportable 05/19/19 04:23 Ovalocytes Not Reportable 05/19/19 04:23 Helmet Cells Not Reportable 05/19/19 04:23 Ling-[place] Bodies Not Reportable 05/19/19 04:23 [place] Rings Not Reportable 05/19/19 04:23 Lora Cells Not Reportable 05/19/19 04:23 Bite Cells Not Reportable 05/19/19 04:23 Crenated Cell Not Reportable 05/19/19 04:23 Elliptocytes Not Reportable 05/19/19 04:23 Acanthocytes (Spur) Not Reportable 05/19/19 04:23 Rouleaux Not Reportable 05/19/19 04:23 Hemoglobin C Crystals Not Reportable 05/19/19 04:23 Schistocytes Few 05/19/19 04:23 Malaria parasites Not Reportable 05/19/19 04:23 Galen Bodies Not Reportable 05/19/19 04:23 Hem Pathologist Commnt No 05/19/19 04:23 PT 26.0 Sec. (12.2-14.9) H 05/19/19 00:25 INR 2.33 (0.87-1.13) H 05/19/19 00:25 APTT 47.3 Sec. (24.2-36.6) H 05/19/19 00:25 Sodium 132 mmol/L (137-145) L 05/19/19 04:23 Potassium 5.6 mmol/L (3.6-5.0) H 05/19/19 04:23 Chloride 95.5 mmol/L (98-107) L 05/19/19 04:23 Carbon Dioxide 21 mmol/L (22-30) L 05/19/19 04:23 Anion Gap 21 mmol/L 05/19/19 04:23 BUN 106 mg/dL (7-17) H 05/19/19 04:23 Creatinine 2.9 mg/dL (0.7-1.2) H 05/19/19 04:23 Estimated GFR 19 ml/min 05/19/19 04:23 BUN/Creatinine Ratio 37 % 05/19/19 04:23 Glucose 128 mg/dL (65-100) H 05/19/19 04:23 POC Glucose 89 (70-105) 05/19/19 12:04 Calcium 11.0 mg/dL (8.4-10.2) H 05/19/19 04:23 Magnesium 2.30 mg/dL (1.7-2.3) 05/19/19 00:25 Total Creatine Kinase 20 units/L (30-135) L 05/19/19 00:25 Blood Type O POSITIVE 05/19/19 01:37 Antibody Screen Negative 05/19/19 01:37 Active Medications - Current Medications Current Medications: Generic Name Dose Route Start Last Admin Trade Name Freq PRN Reason Stop Dose Admin Acetaminophen 650 mg 05/19/19 04:12 Tylenol PO Q4H PRN Pain MILD(1-3)/Fever >100.5/BRENNER Dextrose 0 ml 05/19/19 04:31 D50w (25gm) Syringe IV Q30MIN PRN Hypoglycemia Protocol Levofloxacin/Dextrose 250 mg in 50 mls @ 50 mls/hr 05/20/19 10:00 Levaquin 250mg/50ml IV Q24HR MAYLIN Dextrose/Sodium Chloride 1,000 mls @ 75 mls/hr 05/19/19 16:00 D5ns IV DIRECT MAYLIN Ondansetron HCl 4 mg 05/19/19 04:12 Zofran IV Q8H PRN Nausea And Vomiting Sodium Chloride 10 ml 05/19/19 10:00 05/19/19 09:54 Sodium Chloride Flush Syringe 10 Ml IV 10 ml BID MAYLIN Administration Sodium Chloride 10 ml 05/19/19 04:12 Sodium Chloride Flush Syringe 10 Ml IV PRN PRN LINE FLUSH Nutrition/Malnutrition Assess - Dietary Evaluation Nutrition/Malnutrition Findings: Nutrition Notes Start: 05/19/19 11:24 Freq: Status: Active Protocol: Document 05/19/19 11:24 CW (Rec: 05/19/19 11:42 CW [id number]) Co-Sign 05/19/19 11:24 LP Nutrition Notes Need for Assessment generated from: MD Order,bacon stringer,MST Initial or Follow up Assessment Current Diagnosis Acute Kidney Injury,CKD(stage I-IV),COPD,Coronary Artery Disease,Diabetes,Sepsis, Hypertension,Heart Failure, Respiratory Failure, Hyperlipidemia Other Pertinent Diagnosis LGI bleed, rectal pain, gout, PAD, GERD, Lung cancer, anemia , AMS, Current Diet NPO Labs/Tests Na 132 K 5.6 BUN 106 Cr 2.9 Pertinent Medications 1/2NS at 50 ml/hr Height 5 ft 3 in Weight 54.7 kg Usual Body Weight 68 kg [place] Body Weight (kg) 52.27 BMI 21.3 Intake Prior to Admission Poor Weight change and time frame 23% weight loss in 1 month Weight Status Underweight Subjective/Other Information MD consult for poor oral intake. RN Screen for MST. Pt currently NPO for GI bleed. Per family, pt has had poor PO CODING COORDINATOR. Pt fed via family thru " syringe" otherwise pt will not eat nor drink. Per pt charts, UBW is 68 kg (04/17/2019). ONS order D/C'd D/T decreased likelihood that pt will consume it. 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 Is patient on ventilator? No Is Patient Ambulatory and/or Out of Bed No REE-(Edmunds-St. Jeor-confined to bed) [phone] Calculation Used for Recommendations [facility] Additional Notes protein needs: 44 - 49 g (0.8 - 0.9 g/kg BW for CKD w/ DM) fluid needs: 1500 - 1900 ml ( CHF) or per MD Nutrition Intervention Change Diet Order: Recommend TF Nutrition Support: Recommend Nepro 1.8 at 28 ml/ hr Free Water flush of 125 ml q4h Kcal 1,210 Protein (gm) 54 Fluid (mL) 489 Add Supplement/Snack (indicate name/kcal D/C ONS /protein ) Goal #1 Diet advancement/ Initiation of TF Anticipated Discharge Needs: TF Follow-Up By: 05/20/19 Additional Comments F/U Diet advancement/ TF consult
[2019-05-19] MEDS: D5W/0.9% NACL 1,000 ML IV SCH (16:16)
--- NOTE | 2019-05-19 16:45 | Cat Scan Report ---
CT CHEST WITHOUT CONTRAST INDICATION / CLINICAL INFORMATION: SOB, decreased output from pleural drainage catheter. TECHNIQUE: Axial CT images were obtained through the chest without contrast. All CT scans at this location are p erformed using CT dose reduction for ALARA by means of automated exposure control. COMPARISON: CT dated 03/13/19 FINDINGS: HEART: Heart size is stable. Interval development of mild pericardial thickening with density greater than that of fluid measuring 25 Hounsfield units. Pericardial thickness measures up to 8mm. THORACIC AORTA: Mild atherosclerotic calcification without acute abnormality. MEDIASTINUM and NANCY: Calcified mediastinal lymph nodes are unchanged. Central left hilar obstructing soft tissue mass is unchanged with obstruction of the left upper lobe bronchus and partial obstructi on of the left lower lobe bronchus. LUNGS: Complete atelectasis of the left upper lobe with partial atelectasis and consolidation of the left lower lobe. Mild passive atelectasis of the right lower lobe. Mild bibasilar edema. PLEURA: Interval placement of posterior and medial left pleural catheter. There is no remaining fluid around this posterior medial pleural catheter. There are loculated areas of left pleural fluid in th e lateral and anterior left hemithorax. Interval enlargement of small to moderate right pleural effus ion. No pneumothorax. ADDITIONAL FINDINGS: None. UPPER ABDOMEN: No significant abnormality. SKELETAL SYSTEM: Prominent Schmorl's nodes in the lower thoracic spine. IMPRESSION: 1. Interval placement of posterior medial left pleural catheter with no remaining fluid around the ca theter. There is loculated left pleural effusion in the anterolateral left hemithorax. 2. Persistent left hilar soft tissue mass with obstruction of the left upper lobe and partial obstruc tion of the left lower lobe. 3. Interval enlargement of right pleural effusion. 4. Interval development of nodular soft tissue density of the pericardium. Signer Name: Shanna Lechuga MD Signed: 05/19/2019 4:41 PM Workstation Name: [id number]
[2019-05-20] MEDS: D5W/0.9% NACL 1,000 ML IV SCH ×2 (05:10→18:25)
[2019-05-20 06:54] LABS: Calcium 10.8 mg/dL (8.4-10.2)
[2019-05-20 08:03] LABS: Bilirubin,Urine NEG (Negative); Blood,Urine NEG (Negative); Color,Urine Yellow (Yellow); Mucus,Urine FEW /HPF; Protein,Urine <15 mg/dL mg/dL (Negative); Urobilinogen,Urine < 2.0 mg/dL (<2.0)
--- NOTE | 2019-05-20 08:51 | Progress Note ---
Assessment and Plan 1. Acute kidney injury: Likely vasomotor NEELIMA superimposed on CKD stage 3. Renal US negative for hydro but shows bilateral cortical thinning as well as simple cyst in the upper pole of left kidney. Urine studies ordered. Switched IV fluids to D5W NS at 75 cc/hr. Monitor renal function. Current creatinine is 2.6 from 2.9. Avoid nephrotoxic agents. Meds dosage based on GFR. 2. FEN: Hyponatremia, mild, continue IV fluids, monitor. Hyperkalemia, improving, 5.1 today, recheck ordered for 1500, monitor. Metabolic acidosis, worsening to 17 from 21, recheck ordered for 1500, monitor. Monitor lytes. 3. GI bleed: Hgb stable. GI following. 4. SIRS: 5. Recurrent pleural effusions in setting of stage IV lung cancer (squamous cell): Pleurx catheter present. 6. Chronic systolic CHF: EF 30-35% Diuretics held. 7. A fib: On Eliquis. 8. Diabetes Mellitus: 9. Hypertension: 10. Anemia: Subjective Date of service: 05/20/19 Interval history: Patient was seen and examined at the bedside. Daughter is not present at the bedside. Patient sleeping but easily aroused. Objective - Exam Narrative Exam: General appearance: well-developed, appears stated age, frail EENT: ATNC, PERRL Neck: Present: neck supple, trachea midline Respiratory: Clear to Ascultation, Decreased Breath Sounds (bibasilar) Heart: regular, normal heart rate, S1S2, no murmurs Gastrointestinal: Present: normal, normoactive bowel sounds. Absent: tenderness, distended, masses, organomegaly Integumentary: no rash, warm and dry Neurologic: no focal deficit, other (alert, awake) Musculoskeletal: Present: other (able to move all extremities) Psychiatric: mood/affect appropriate, cooperative - Vital Signs Vital signs: Vital Signs - 12hr 05/19/19 05/19/19 05/20/19 22:45 23:53 00:00 Temperature 97.5 F L Pulse Rate 45 L 89 Pulse Rate [ 85 Apical] Respiratory 20 18 Rate Blood Pressure 152/72 O2 Sat by Pulse 92 70 L 90 Oximetry 05/20/19 03:34 Temperature 98.2 F Pulse Rate 58 L Pulse Rate [ Apical] Respiratory 18 Rate Blood Pressure 116/65 O2 Sat by Pulse 90 Oximetry - Lab 05/19/19 04:23 05/20/19 06:06 Most recent lab results Calcium 10.8 mg/dL (8.4-10.2) H 05/20/19 06:06 Phosphorus 3.80 mg/dL (2.5-4.5) 05/20/19 06:06 Magnesium 2.30 mg/dL (1.7-2.3) 05/19/19 00:25 Medications & Allergies - Medications Allergies/Adverse Reactions: Allergies ibuprofen Allergy (Verified 02/18/19 23:29) Unknown Penicillins Allergy (Verified 02/18/19 23:29) Unknown Home Medications: Home Medications Medication Instructions Recorded Confirmed Last Taken Type ALBUTEROL NEB's [Proventil 0.083% 2.5 mg IH Q3HRT PRN #100 nebu 03/16/19 05/19/19 Unknown Rx NEBS] Aspirin EC 325 mg PO QDAY #30 tablet 03/16/19 05/19/19 03/17/19 10:00 Rx 325 mg Cilostazol [Pletal] 50 mg PO BID #60 tablet 03/16/19 05/19/19 03/17/19 10:00 Rx 50 mg Ferrous Sulfate [Feosol 325 MG tab] 325 mg PO DAILY #30 tablet 03/16/19 05/19/19 03/17/19 10:00 Rx 325 mg Folic Acid [Folvite] 1 mg PO QDAY #30 tablet 03/16/19 05/19/19 03/17/19 10:00 Rx 1 mg ISOSORBIDE MONOnitrate [Imdur ER] 120 mg PO QDAY #1 tablet 03/16/19 05/19/19 03/17/19 10:00 Rx 120 mg Insulin NPH/Regular [NovoLIN 70/30] 10 unit SUB-Q BIDDIAB units 03/16/19 05/19/19 Unknown Rx Ipratropium (Nf) [Atrovent HFA 2 puff IH Q6HR PRN #1 inha 03/16/19 05/19/19 Unknown Rx 17MCG/PUFF] Pantoprazole [Protonix TAB] 40 mg PO QDAY #30 tablet 03/16/19 05/19/19 03/17/19 10:00 Rx 40 mg allopurinoL [Zyloprim] 100 mg PO DAILY #30 tablet 03/16/19 05/19/19 03/17/19 10:00 Rx 100 mg hydrALAZINE [Apresoline TAB] 25 mg PO Q8HR #90 tablet 03/16/19 05/19/19 03/17/19 10:00 Rx 25 mg hydrOXYzine HCL [Atarax] 10 mg PO Q6H PRN #30 tablet 03/16/19 05/19/19 Unknown Rx oxyCODONE /ACETAMINOPHEN [Percocet 1 tab PO Q6H PRN #8 tablet 03/16/19 05/19/19 Unknown Rx 5/325 mg] Apixaban [Eliquis] 5 mg PO BID #30 tablet 03/19/19 05/19/19 Unknown Rx Insulin NPH/Regular [NovoLIN 70/30] See Protocol SUB-Q ACHS #300 units 04/05/19 05/19/19 Unknown Rx Metoprolol [Lopressor TAB] 50 mg PO BIDDIAB tablet 04/05/19 05/19/19 Unknown Rx Apixaban [Eliquis] 5 mg PO BID 05/20/19 05/20/19 Unknown History Atorvastatin [Lipitor Tab] 40 mg PO QHS 05/20/19 05/20/19 Unknown History Furosemide [Lasix] 20 mg PO QDAY 05/20/19 05/20/19 Unknown History cefUROXime [Ceftin] 250 mg PO Q12H 05/20/19 05/20/19 Unknown History glipiZIDE [Glucotrol] 5 mg PO BID 05/20/19 05/20/19 Unknown History Active Medications: Generic Name Dose Route Start Last Admin Trade Name Jorge Lq PRN Reason Stop Dose Admin Acetaminophen 650 mg 05/19/19 04:12 Tylenol PO Q4H PRN Pain MILD(1-3)/Fever >100.5/BRENNER Dextrose 0 ml 05/19/19 04:31 D50w (25gm) Syringe IV Q30MIN PRN Hypoglycemia Protocol Levofloxacin/Dextrose 250 mg in 50 mls @ 50 mls/hr 05/20/19 10:00 Levaquin 250mg/50ml IV Q24HR MAYLIN Dextrose/Sodium Chloride 1,000 mls @ 75 mls/hr 05/19/19 16:00 05/20/19 05:10 D5ns IV 75 mls/hr DIRECT MAYLIN Administration Ondansetron HCl 4 mg 05/19/19 04:12 Zofran IV Q8H PRN Nausea And Vomiting Sodium Chloride 10 ml 05/19/19 10:00 05/19/19 22:02 Sodium Chloride Flush Syringe 10 Ml IV 10 ml BID MAYLIN Administration Sodium Chloride 10 ml 05/19/19 04:12 Sodium Chloride Flush Syringe 10 Ml IV PRN PRN LINE FLUSH
[2019-05-20 10:22] LABS: Creatinine,Urine 114.6 mg/dL (0.1-20.0)
--- NOTE | 2019-05-20 11:06 | Gastroenterology Progress Note ---
<NEREIDA BARKER - Last Filed: 05/20/19 11:07> Assessment and Plan 1. Hematochezia 2. History of lung cancer 3. Chronic anemia 4. Afib on anticoagulation -H/H stable; monitor and transfuse as needed -no active signs of bleeding overnight or this am -etiology-description of bleeding/symptoms suggestive of ano-rectal source (fissure vs hemorrhoids) -no plan for scope at this time -continue daily bowel regimen to avoid constipation/staining -continue hemorrhoidal cream -if rectal pain persists recommend nitrogylcering ointment for possible fissre -no further GI recommendations at this time -will sign off, please call if needed Subjective Date of service: 05/20/19 Principal diagnosis: GIB Interval history: No active signs of bleeding overnight or this am per nursing. Objective - Constitutional Vitals: Temp Pulse Resp BP Pulse Ox 98.2 F 79 18 147/70 93 05/20/19 03:34 05/20/19 08:54 05/20/19 08:54 05/20/19 07:38 05/20/19 08:54 General appearance: no acute distress, other (somnolent) - Respiratory Respiratory effort: normal Respiratory: bilateral: diminished - Cardiovascular Rhythm: other (bradycardia) - Gastrointestinal General gastrointestinal: Present: soft, distended, normal bowel sounds - Labs CBC & Chem 7: 05/19/19 04:23 05/20/19 06:06 Labs: Laboratory Results - last 24 hr 05/19/19 05/19/19 05/19/19 12:04 16:06 16:28 Sodium Potassium Chloride Carbon Dioxide Anion Gap BUN Creatinine Estimated GFR BUN/Creatinine Ratio Glucose POC Glucose 89 55 L 65 L Calcium Phosphorus Urine Color Urine Turbidity Urine pH Ur Specific Sumner Urine Protein Urine Glucose (UA) Urine Ketones Urine Blood Urine Nitrite Urine Bilirubin Urine Urobilinogen Ur Leukocyte Esterase Urine WBC (Auto) Urine RBC (Auto) U Epithel Cells (Auto) Urine Mucus Urine Yeast (Budding) Urine Creatinine Urine Sodium 05/19/19 05/20/19 05/20/19 22:29 05:24 06:06 Sodium 132 L Potassium 5.1 H Chloride 99.4 Carbon Dioxide 17 L Anion Gap 21 BUN 103 H Creatinine 2.6 H Estimated GFR 22 BUN/Creatinine Ratio 40 Glucose 143 H POC Glucose 217 H 142 H Calcium 10.8 H Phosphorus 3.80 Urine Color Urine Turbidity Urine pH Ur Specific Sumner Urine Protein Urine Glucose (UA) Urine Ketones Urine Blood Urine Nitrite Urine Bilirubin Urine Urobilinogen Ur Leukocyte Esterase Urine WBC (Auto) Urine RBC (Auto) U Epithel Cells (Auto) Urine Mucus Urine Yeast (Budding) Urine Creatinine Urine Sodium 05/20/19 05/20/19 Unknown Unknown Sodium Potassium Chloride Carbon Dioxide Anion Gap BUN Creatinine Estimated GFR BUN/Creatinine Ratio Glucose POC Glucose Calcium Phosphorus Urine Color Yellow Urine Turbidity Slightly-cloudy Urine pH 5.0 Ur Specific Sumner 1.015 Urine Protein <15 mg/dl Urine Glucose (UA) Neg Urine Ketones Neg Urine Blood Neg Urine Nitrite Neg Urine Bilirubin Neg Urine Urobilinogen < 2.0 Ur Leukocyte Esterase Neg Urine WBC (Auto) 2.0 Urine RBC (Auto) 3.0 U Epithel Cells (Auto) 4.0 Urine Mucus Few Urine Yeast (Budding) 1+ Urine Creatinine 114.6 H Urine Sodium 10 <ALISSA GOLVER - Last Filed: 05/20/19 16:00> Assessment and Plan Patient seen and examined; agree with note above. Objective - Constitutional Vitals: Temp Pulse Resp BP Pulse Ox 98.2 F 79 18 147/70 93 05/20/19 03:34 05/20/19 08:54 05/20/19 08:54 05/20/19 07:38 05/20/19 08:54 - Labs CBC & Chem 7: 05/20/19 Unknown 05/20/19 06:06 Labs: Laboratory Results - last 24 hr 05/19/19 05/19/19 05/19/19 16:06 16:28 22:29 Hgb Hct Sodium Potassium Chloride Carbon Dioxide Anion Gap BUN Creatinine Estimated GFR BUN/Creatinine Ratio Glucose POC Glucose 55 L 65 L 217 H Calcium Phosphorus Urine Color Urine Turbidity Urine pH Ur Specific Sumner Urine Protein Urine Glucose (UA) Urine Ketones Urine Blood Urine Nitrite Urine Bilirubin Urine Urobilinogen Ur Leukocyte Esterase Urine WBC (Auto) Urine RBC (Auto) U Epithel Cells (Auto) Urine Mucus Urine Yeast (Budding) Urine Creatinine Urine Sodium 05/20/19 05/20/19 05/20/19 05:24 06:06 13:02 Hgb Hct Sodium 132 L Potassium 5.1 H Chloride 99.4 Carbon Dioxide 17 L Anion Gap 21 BUN 103 H Creatinine 2.6 H Estimated GFR 22 BUN/Creatinine Ratio 40 Glucose 143 H POC Glucose 142 H 96 Calcium 10.8 H Phosphorus 3.80 Urine Color Urine Turbidity Urine pH Ur Specific Sumner Urine Protein Urine Glucose (UA) Urine Ketones Urine Blood Urine Nitrite Urine Bilirubin Urine Urobilinogen Ur Leukocyte Esterase Urine WBC (Auto) Urine RBC (Auto) U Epithel Cells (Auto) Urine Mucus Urine Yeast (Budding) Urine Creatinine Urine Sodium 05/20/19 05/20/19 05/20/19 Unknown Unknown Unknown Hgb 8.9 L Hct 28.0 L Sodium Potassium Chloride Carbon Dioxide Anion Gap BUN Creatinine Estimated GFR BUN/Creatinine Ratio Glucose POC Glucose Calcium Phosphorus Urine Color Yellow Urine Turbidity Slightly-cloudy Urine pH 5.0 Ur Specific Sumner 1.015 Urine Protein <15 mg/dl Urine Glucose (UA) Neg Urine Ketones Neg Urine Blood Neg Urine Nitrite Neg Urine Bilirubin Neg Urine Urobilinogen < 2.0 Ur Leukocyte Esterase Neg Urine WBC (Auto) 2.0 Urine RBC (Auto) 3.0 U Epithel Cells (Auto) 4.0 Urine Mucus Few Urine Yeast (Budding) 1+ Urine Creatinine 114.6 H Urine Sodium 10
[2019-05-20 11:46] LABS: Hemoglobin 8.9 gm/dl (10.1-14.3)
[2019-05-20] MEDS: POLYETHYLENE GLYCOL 3350 17 GM POWDER PO SCH (13:05)
[2019-05-20] MEDS: HYDROCORTISONE 2.5% RECT CREAM 28.35 GM PR SCH ×2 (16:20→21:36)
[2019-05-20 17:39] LABS: Calcium 10.7 mg/dL (8.4-10.2)
--- NOTE | 2019-05-20 17:59 | Progress Note ---
Assessment and Plan -GI bleed Hemoglobin is stable, GI was consulted to see the patient Continue to monitor bleeding, hemoglobin Since the patient has no further bleeding will not reverse INR given history of A. fib GI bleed resolved Patient has high white count Monitor hemoglobin and hematocrit -Acute renal failure on chronic Start gentle IV fluid, consult nephrology, monitor kidney function Hold nephrotoxic agents, check ultrasound of the kidneys Nephrology consult appreciated -SIRS Patient looks nontoxic, start empiric antibiotic, routine cultures -Chronic systolic CHF, EF of 30-35% Hold diuretics for now -Paroxysmal Atrial fibrillation, stable Cont Eliquis secondary to bleeding -Malignant recurrent pleural effusion Patient has a Pleurx drain in place which instructed to drain daily. -CAD, Stable Diabetes We will monitor Accu-Cheks Coverage Disposition--NEELIMA and leukocytosis to improve We will hold discharge for today DVT prophylaxis Subjective Date of service: 05/20/19 Principal diagnosis: GIB Interval history: Patient is a 73-year-old woman with a history of coronary artery disease, CHF, COPD, diabetes, chronic kidney disease, A. fib on anticoagulation, lung cancer with recurrent pleural effusion, status post Pleurx catheter drain was brought to the emergency room for complaint of rectal pain. Most of the history is per the daughter at bedside who states that she has been having rectal pain for 1 week, her symptoms worsened today and was associated with blood in her stool x2. She has had no further bleeding since she has been here in the emergency room. Recently started on immunotherapy for lung cancer, patient is being admitted for work-up of GI bleed. No further GI bleed. Otherwise stable. BUN and creatinine still high Objective - Constitutional Vitals: Vital Signs - 12hr 05/20/19 05/20/19 07:38 08:54 Pulse Rate 49 L Pulse Rate [ 79 Apical] Pulse Rate [ 79 Left Radial] Respiratory 18 Rate Blood Pressure 147/70 O2 Sat by Pulse 90 100 Oximetry General appearance: Present: no acute distress, well-nourished - EENT Eyes: PERRL, EOM intact ENT: hearing intact, clear oral mucosa Ears: bilateral: normal - Neck Neck: supple, normal ROM - Respiratory Respiratory effort: normal Respiratory: bilateral: CTA - Breasts Breasts: normal - Cardiovascular Heart rate: 78 Rhythm: regular Heart Sounds: Present: S1 & S2. Absent: gallop, rub Extremities: pulses intact, No edema, normal color, Full ROM - Gastrointestinal General gastrointestinal: Present: soft, non-tender, non-distended, normal bowel sounds - Genitourinary Female genitourinary: normal - Integumentary Integumentary: clear, warm, dry - Musculoskeletal Musculoskeletal: 1, strength equal bilaterally - Neurologic Neurologic: moves all extremities - Psychiatric Psychiatric: memory intact, appropriate mood/affect, intact judgment & insight - Labs CBC & Chem 7: 05/20/19 Unknown 05/20/19 17:07 Labs: Abnormal lab results 05/19/19 05/20/19 05/20/19 Range/Units 22:29 05:24 06:06 Hgb (10.1-14.3) gm/dl Hct (30.3-42.9) % Sodium 132 L (137-145) mmol/L Potassium 5.1 H (3.6-5.0) mmol/L Carbon Dioxide 17 L (22-30) mmol/L BUN 103 H (7-17) mg/dL Creatinine 2.6 H (0.7-1.2) mg/dL Glucose 143 H (65-100) mg/dL POC Glucose 217 H 142 H (70-105) Calcium 10.8 H (8.4-10.2) mg/dL Urine Creatinine (0.1-20.0) mg/dL 05/20/19 05/20/19 05/20/19 Range/Units 17:07 Unknown Unknown Hgb 8.9 L (10.1-14.3) gm/dl Hct 28.0 L (30.3-42.9) % Sodium 134 L (137-145) mmol/L Potassium (3.6-5.0) mmol/L Carbon Dioxide 20 L (22-30) mmol/L BUN 101 H (7-17) mg/dL Creatinine 2.4 H (0.7-1.2) mg/dL Glucose 148 H (65-100) mg/dL POC Glucose (70-105) Calcium 10.7 H (8.4-10.2) mg/dL Urine Creatinine 114.6 H (0.1-20.0) mg/dL
[2019-05-21] MEDS: DEXTROSE 50% IN WATER (25GM) 50 ML SYRINGE IV PRN ×2 (00:54→06:43)
[2019-05-21] MEDS ORDERED: ALBUTEROL 2.5 MG/3 ML NEBU IH PRN (01:16)
[2019-05-21] MEDS: HYDROCORTISONE 2.5% RECT CREAM 28.35 GM PR SCH ×3 (04:33→23:15)
[2019-05-21 06:08] LABS: Hematocrit 29.1 % (30.3-42.9); Hemoglobin 9.1 gm/dl (10.1-14.3); Mean Corpuscular HGB Conc 31 % (30-34); Mean Corpuscular Volume 84 fl (79-97); Platelet Count 364 K/mm3 (140-440); Red Blood Count 3.47 M/mm3 (3.65-5.03)
[2019-05-21 06:10] LABS: Red Cell Distribution Width 20.3 % (13.2-15.2)
[2019-05-21 06:30] LABS: Calcium 10.6 mg/dL (8.4-10.2)
[2019-05-21 06:47] LABS: Basophils % (Manual) 0 % (0.0-1.8); Total Cells Counted 100
[2019-05-21 06:49] LABS: Burr Cells Rare; Platelet Estimate Consistent w Auto; Schistocytes Rare; Target Cells Rare
[2019-05-21] MEDS ORDERED: DEXTROSE 50% IN WATER (25GM) 50 ML SYRINGE IV ONE (08:22)
--- NOTE | 2019-05-21 10:13 | Progress Note ---
Assessment and Plan 1. Acute kidney injury: Likely vasomotor NEELIMA superimposed on CKD stage 3. Renal US negative for hydro but shows bilateral cortical thinning as well as simple cyst in the upper pole of left kidney. Urine studies ordered. IV fluids stopped overnight due to development of wheeze. Monitor renal function. Creatinine level is improving, currently 1.9 from 2.4. Avoid nephrotoxic agents. Meds dosage based on GFR. 2. FEN: Mild Hyponatremia, improving, serum sodium now 136, monitor. Hyperkalemia, improving, 4.5 today, monitor. Metabolic acidosis, improving, monitor. Monitor lytes. 3. GI bleed: Hgb stable. GI following. 4. SIRS: 5. Recurrent pleural effusions in setting of stage IV lung cancer (squamous cell): Pleurx catheter present. 6. Chronic systolic CHF: EF 30-35% Diuretics held. 7. A fib: On Eliquis. 8. Diabetes Mellitus: 9. Hypertension: 10. Anemia: Subjective Date of service: 05/21/19 Principal diagnosis: GIB Interval history: Patient was seen and examined at the bedside. Daughter is not present at the bedside. Patient sleeping but easily aroused. Objective - Exam Narrative Exam: General appearance: well-developed, appears stated age, frail EENT: ATNC, PERRL Neck: Present: neck supple, trachea midline Respiratory: Expiratory wheeze bilateral upper lobes, Decreased Breath Sounds (bibasilar) Heart: regular, normal heart rate, S1S2, no murmurs Gastrointestinal: Present: normal, normoactive bowel sounds. Absent: ten derness, distended, masses, organomegaly Integumentary: no rash, warm and dry, Pleurx catheter present Neurologic: no focal deficit, other (alert, awake) Musculoskeletal: Present: other (able to move all extremities) Psychiatric: mood/affect appropriate, cooperative - Vital Signs Vital signs: Vital Signs - 12hr 05/20/19 05/21/19 05/21/19 23:06 04:36 07:49 Temperature 98.0 F 98.0 F 97.9 F Respiratory 18 18 18 Rate Blood Pressure 150/76 164/83 155/78 - Lab 05/21/19 05:11 05/21/19 05:11 Most recent lab results Calcium 10.6 mg/dL (8.4-10.2) H 05/21/19 05:11 Phosphorus 3.80 mg/dL (2.5-4.5) 05/20/19 06:06 Magnesium 2.30 mg/dL (1.7-2.3) 05/19/19 00:25 Urine Creatinine 114.6 mg/dL (0.1-20.0) H 05/20/19 Unknown Urine Sodium 10 mmol/L 05/20/19 Unknown Medications & Allergies - Medications Allergies/Adverse Reactions: Allergies ibuprofen Allergy (Verified 02/18/19 23:29) Unknown Penicillins Allergy (Verified 02/18/19 23:29) Unknown Home Medications: Home Medications Medication Instructions Recorded Confirmed Last Taken Type ALBUTEROL NEB's [Proventil 0.083% 2.5 mg IH Q3HRT PRN #100 nebu 03/16/19 05/19/19 Unknown Rx NEBS] Aspirin EC [Ecotrin] 325 mg PO QDAY #30 tablet 03/16/19 05/19/19 03/17/19 10:00 Rx 325 mg Ferrous Sulfate [Feosol 325 MG tab] 325 mg PO DAILY #30 tablet 03/16/19 05/19/19 03/17/19 10:00 Rx 325 mg Folic Acid [Folvite] 1 mg PO QDAY #30 tablet 03/16/19 05/19/19 03/17/19 10:00 Rx 1 mg ISOSORBIDE MONOnitrate [Imdur ER] 120 mg PO QDAY #1 tablet 03/16/19 05/19/19 03/17/19 10:00 Rx 120 mg Insulin NPH/Regular [NovoLIN 70/30] 10 unit SUB-Q BIDDIAB units 03/16/19 05/19/19 Unknown Rx Ipratropium (Nf) [Atrovent HFA 2 puff IH Q6HR PRN #1 inha 03/16/19 05/19/19 Unknown Rx 17MCG/PUFF] Pantoprazole [Protonix TAB] 40 mg PO QDAY #30 tablet 03/16/19 05/19/19 03/17/19 10:00 Rx 40 mg allopurinoL [Zyloprim] 100 mg PO DAILY #30 tablet 03/16/19 05/19/19 03/17/19 10:00 Rx 100 mg cilostazoL [Pletal] 50 mg PO BID #60 tablet 03/16/19 05/19/1903/17/19 10:00 Rx 50 mg hydrALAZINE [Apresoline TAB] 25 mg PO Q8HR #90 tablet 03/16/19 05/19/19 03/17/19 10:00 Rx 25 mg hydrOXYzine HCL [Atarax] 10 mg PO Q6H PRN #30 tablet 03/16/19 05/19/19 Unknown Rx oxyCODONE /ACETAMINOPHEN [Percocet 1 tab PO Q6H PRN #8 tablet 03/16/19 05/19/19 Unknown Rx 5/325 mg] Apixaban [Eliquis] 5 mg PO BID #30 tablet 03/19/19 05/19/19 Unknown Rx Insulin NPH/Regular [NovoLIN 70/30] See Protocol SUB-Q ACHS #300 units 04/05/19 05/19/19 Unknown Rx Metoprolol [Lopressor TAB] 50 mg PO BIDDIAB tablet 04/05/19 05/19/19 Unknown Rx Apixaban [Eliquis] 5 mg PO BID 05/20/19 05/20/19 Unknown History Atorvastatin [Lipitor Tab] 40 mg PO QHS 05/20/19 05/20/19 Unknown History Furosemide [Lasix] 20 mg PO QDAY 05/20/19 05/20/19 Unknown History Prochlorperazine [Compazine] 10 tab PO Q4HR PRN 05/20/19 05/20/19 Unknown History cefUROXime [Ceftin] 250 mg PO Q12H 05/20/19 05/20/19 Unknown History glipiZIDE [Glucotrol] 5 mg PO BID 05/20/19 05/20/19 Unknown History Active Medications: Generic Name Dose Route Start Last Admin Trade Name Freq PRN Reason Stop Dose Admin Acetaminophen 650 mg 05/19/19 04:12 Tylenol PO Q4H PRN Pain MILD(1-3)/Fever >100.5/BRENNER Albuterol 2.5 mg 05/21/19 01:16 05/21/19 08:03 Proventil IH 2.5 mg Q4HRT PRN Administration Shortness Of Breath Dextrose 0 ml 05/19/19 04:31 05/21/19 06:43 D50w (25gm) Syringe IV 15 ml Q30MIN PRN Administration Hypoglycemia Protocol Hydrocortisone Acetate 1 applic 05/20/19 12:00 02/14/20 04:33 Proctosol-Hc [place] 1 applic Q8H MAYLIN Administration Levofloxacin/Dextrose 250 mg in 50 mls @ 50 mls/hr 05/20/19 10:00 05/20/19 10:27 Levaquin 250mg/50ml IV 50 mls/hr Q24HR MAYLIN Administration Ondansetron HCl 4 mg 05/19/19 04:12 Zofran IV Q8H PRN Nausea And Vomiting Polyethylene Glycol 17 gm 05/20/19 12:00 05/20/19 13:05 Miralax 3350 PO 17 gm QDAY MAYLIN Administration Sodium Chloride 10 ml 05/19/19 10:00 05/20/19 21:36 Sodium Chloride Flush Syringe 10 Ml IV 10 ml BID AMYLIN Administration Sodium Chloride 10 ml 05/19/19 04:12 Sodium Chloride Flush Syringe 10 Ml IV PRN PRN LINE FLUSH
[2019-05-21] MEDS: POLYETHYLENE GLYCOL 3350 17 GM POWDER PO SCH (11:04)
--- NOTE | 2019-05-21 14:48 | Progress Note ---
Assessment and Plan Assessment and plan: Patient is a 73-year-old woman with a history of coronary artery disease, CHF, COPD, diabetes, chronic kidney disease, A. fib on anticoagulation, lung cancer with recurrent malignant pleural effusion with a Pleurx catheter drain in place who presented with hematochezia and rectal pains. GI evaluated and determined this to be lower GI source which spontaneous resolved. However, patient continue to be confused and not eating. So she is not taking oral metoprolol or Amiodarone; therefore, she is Afib with RVR. She recently started on immunotherapy for lung cancer Dr. Franco. Acute GI blood loss anemia, hemorrhoid/fissure related per GI, resolved: monitor cbc almost daily Acute on chronic renal failure stage 3, vasomotor nephropathy, poa: treat with IVFs but complex medical decision in the fact this will worsen chronic bilateral pleural effusion, follow bmp closely SIRS, non-infectious with organ dysfunction, poa: Patient looks nontoxic, start empiric antibiotic iv renal dose levequin (pcn allergy), routine cultures Chronic systolic CHF, EF of 30-35%: needing IVF for ARF Acute metabolic encephalopathy, poa, FTT with Odynophagia; consult speech therapy Paroxysmal Atrial fibrillation, now with RVR, stable: discontinued Eliquis secondary to bleeding, consult Cardiology Malignant recurrent pleural effusion: Patient has a Pleurx drain in place which instructed to drain daily. CAD, Stable Type 2 Diabetes Mellitus DVT prophylaxis: scd only new issue: AFib with RVR, give iv bolus Amiodarone and start iv Amiodarone drip. consulted Cardiology also the new ARF maybe related to the new immunotherapy started, detail non- specific, consulted Dr. Machuca full code Hospice appropriate, d/w daughter Lakshmi==>no hospice and rudely stated, "I know all about hospice!" PEG discussion done, wants speech evaluation CCT 34 minutes History Interval history: Patient was seen and examined. Follow-up on current diagnosis of GIB. Overnight uneventful as no events directly reported to me. Patient is not talking or eating. Imaging, nursing note, chart, labs and old chart reviewed. Hospitalist Physical - Physical exam Narrative exam: Gen: thin frial, chronically diasable, nonverbal today HEENT: NCAT, EOMI, PERRL, OP Clear Neck: supple, no adenopathy, no thyromegaly, no JVD CVS/Heart: irregular irregular normal S1S2, pulses present bilaterally Chest/Lungs: diminished with bibasilar crackles, Symmetrical chest expansion, good air entry bilaterally, pleurx catheter cw/upper abd area GI/Abdomen: soft, NTND, good bowel sounds, no guarding or rebound /Bladder: no suprapubic tenderness, no CVA or paraspinal tenderness Extermity/Skin: no c/c/e, no obvious rash MSK: sROM x 4 Neuro: CN 2-12 grossly intact, doesn't follow commands Psych: calm but confused - Constitutional Vitals: Temp Pulse Resp BP Pulse Ox 97.7 F 107 H 18 145/71 93 05/21/19 11:39 05/21/19 08:03 05/21/19 11:39 05/21/19 11:39 05/21/19 11:39 General appearance: Present: no acute distress, well-nourished Results - Labs CBC & Chem 7: 05/21/19 05:11 05/21/19 05:11 Labs: Laboratory Last Values WBC 22.0 K/mm3 (4.5-11.0) H 05/21/19 05:11 RBC 3.47 M/mm3 (3.65-5.03) L 05/21/19 05:11 Hgb 9.1 gm/dl (10.1-14.3) L 05/21/19 05:11 Hct 29.1 % (30.3-42.9) L 05/21/19 05:11 MCV 84 fl (79-97) 05/21/19 05:11 MCH 26 pg (28-32) L 05/21/19 05:11 MCHC 31 % (30-34) 05/21/19 05:11 RDW 20.3 % (13.2-15.2) H 05/21/19 05:11 Plt Count 364 K/mm3 (140-440) 05/21/19 05:11 Add Manual Diff Complete 05/21/19 05:11 Total Counted 100 05/21/19 05:11 Seg Neutrophils % Data Center Manager 05/19/19 04:23 Seg Neuts % (Manual) 94.0 % (40.0-70.0) H 05/21/19 05:11 Band Neutrophils % 0 % 05/21/19 05:11 Lymphocytes % (Manual) 2.0 % (13.4-35.0) L 05/21/19 05:11 Reactive Lymphs % (Man) 0 % 05/21/19 05:11 Monocytes % (Manual) 3.0 % (0.0-7.3) 05/21/19 05:11 Eosinophils % (Manual) 1.0 % (0.0-4.3) 05/21/19 05:11 Basophils % (Manual) 0 % (0.0-1.8) 05/21/19 05:11 Metamyelocytes % 0 % 05/21/19 05:11 Myelocytes % 0 % 05/21/19 05:11 Promyelocytes % 0 % 05/21/19 05:11 Blast Cells % 0 % 05/21/19 05:11 Nucleated RBC % Not Reportable 05/21/19 05:11 Seg Neutrophils # Man 20.7 K/mm3 (1.8-7.7) H 05/21/19 05:11 Band Neutrophils # 0.0 K/mm3 05/21/19 05:11 Lymphocytes # (Manual) 0.4 K/mm3 (1.2-5.4) L 05/21/19 05:11 Abs React Lymphs (Man) 0.0 K/mm3 05/21/19 05:11 Monocytes # (Manual) 0.7 K/mm3 (0.0-0.8) 05/21/19 05:11 Eosinophils # (Manual) 0.2 K/mm3 (0.0-0.4) 05/21/19 05:11 Basophils # (Manual) 0.0 K/mm3 (0.0-0.1) 05/21/19 05:11 Metamyelocytes # 0.0 K/mm3 05/21/19 05:11 Myelocytes # 0.0 K/mm3 05/21/19 05:11 Promyelocytes # 0.0 K/mm3 05/21/19 05:11 Blast Cells # 0.0 K/mm3 05/21/19 05:11 WBC Morphology Not Reportable 05/21/19 05:11 Hypersegmented Neuts Not Reportable 05/21/19 05:11 Hyposegmented Neuts Not Reportable 05/21/19 05:11 Hypogranular Neuts Not Reportable 05/21/19 05:11 Smudge Cells Not Reportable 05/21/19 05:11 Toxic Granulation Not Reportable 05/21/19 05:11 Toxic Vacuolation Not Reportable 05/21/19 05:11 Dohle Bodies Not Reportable 05/21/19 05:11 Pelger-Huet Anomaly Not Reportable 05/21/19 05:11 Jessica Rods Not Reportable 05/21/19 05:11 Platelet Estimate Consistent w auto 05/21/19 05:11 Clumped Platelets Not Reportable 05/21/19 05:11 Plt Clumps, EDTA Not Reportable 05/21/19 05:11 Large Platelets Not Reportable 05/21/19 05:11 Giant Platelets Not Reportable 05/21/19 05:11 Platelet Satelliting Not Reportable 05/21/19 05:11 Plt Morphology Comment Not Reportable 05/21/19 05:11 RBC Morphology Not Reportable 05/21/19 05:11 Dimorphic RBCs Not Reportable 05/21/19 05:11 Polychromasia Not Reportable 05/21/19 05:11 Hypochromasia Not Reportable 05/21/19 05:11 Poikilocytosis Not Reportable 05/21/19 05:11 Anisocytosis Not Reportable 05/21/19 05:11 Microcytosis Not Reportable 05/21/19 05:11 Macrocytosis Not Reportable 05/21/19 05:11 Spherocytes Not Reportable 05/21/19 05:11 Pappenheimer Bodies Not Reportable 05/21/19 05:11 Sickle Cells Not Reportable 05/21/19 05:11 Target Cells Rare 05/21/19 05:11 Tear Drop Cells Not Reportable 05/21/19 05:11 Ovalocytes Not Reportable 05/21/19 05:11 Helmet Cells Not Reportable 05/21/19 05:11 [place] Bodies Not Reportable 05/21/19 05:11 [place] Rings Not Reportable 05/21/19 05:11 [place] Cells Rare 05/21/19 05:11 Bite Cells Not Reportable 05/21/19 05:11 Crenated Cell Not Reportable 05/21/19 05:11 Elliptocytes Not Reportable 05/21/19 05:11 Acanthocytes (Spur) Not Reportable 05/21/19 05:11 Rouleaux Not Reportable 05/21/19 05:11 Hemoglobin C Crystals Not Reportable 05/21/19 05:11 Schistocytes Rare 05/21/19 05:11 Malaria parasites Not Reportable 05/21/19 05:11 [place] Bodies Not Reportable 05/21/19 05:11 Hem Pathologist Commnt No 05/21/19 05:11 PT 26.0 Sec. (12.2-14.9) H 05/19/19 00:25 INR 2.33 (0.87-1.13) H 05/19/19 00:25 APTT 47.3 Sec. (24.2-36.6) H 05/19/19 00:25 Sodium 136 mmol/L (137-145) L 05/21/19 05:11 Potassium 4.5 mmol/L (3.6-5.0) 05/21/19 05:11 Chloride 104.8 mmol/L (98-107) 05/21/19 05:11 Carbon Dioxide 19 mmol/L (22-30) L 05/21/19 05:11 Anion Gap 17 mmol/L 05/21/19 05:11 BUN 91 mg/dL (7-17) H 05/21/19 05:11 Creatinine 1.9 mg/dL (0.7-1.2) H 05/21/19 05:11 Estimated GFR 31 ml/min 05/21/19 05:11 BUN/Creatinine Ratio 48 % 05/21/19 05:11 Glucose 146 mg/dL (65-100) H 05/21/19 05:11 POC Glucose 135 (70-105) H 05/21/19 11:44 Calcium 10.6 mg/dL (8.4-10.2) H 05/21/19 05:11 Phosphorus 3.80 mg/dL (2.5-4.5) 05/20/19 06:06 Magnesium 2.30 mg/dL (1.7-2.3) 05/19/19 00:25 Total Creatine Kinase 20 units/L (30-135) L 05/19/19 00:25 Urine Color Yellow (Yellow) 05/20/19 Unknown Urine Turbidity Slightly-cloudy (Clear) 05/20/19 Unknown Urine pH 5.0 (5.0-7.0) 05/20/19 Unknown Ur Specific [place] 1.015 (1.003-1.030) 05/20/19 Unknown Urine Protein <15 mg/dl mg/dL (Negative) 05/20/19 Unknown Urine Glucose (UA) Neg mg/dL (Negative) 05/20/19 Unknown Urine Ketones Neg mg/dL (Negative) 05/20/19 Unknown Urine Blood Neg (Negative) 05/20/19 Unknown Urine Nitrite Neg (Negative) 05/20/19 Unknown Urine Bilirubin Neg (Negative) 05/20/19 Unknown Urine Urobilinogen < 2.0 mg/dL (<2.0) 05/20/19 Unknown Ur Leukocyte Esterase Neg (Negative) 05/20/19 Unknown Urine WBC (Auto) 2.0 /HPF (0.0-6.0) 05/20/19 Unknown Urine RBC (Auto) 3.0 /HPF (0.0-6.0) 05/20/19 Unknown U Epithel Cells (Auto) 4.0 /HPF (0-13.0) 05/20/19 Unknown Urine Mucus Few /HPF 05/20/19 Unknown Urine Yeast (Budding) 1+ /HPF 05/20/19 Unknown Urine Creatinine 114.6 mg/dL (0.1-20.0) H 05/20/19 Unknown Urine Sodium 10 mmol/L 05/20/19 Unknown Blood Type O POSITIVE 05/19/19 01:37 Antibody Screen Negative 05/19/19 01:37 Active Medications - Current Medications Current Medications: Generic Name Dose Route Start Last Admin Trade Name Freq PRN Reason Stop Dose Admin Acetaminophen 650 mg 05/19/19 04:12 Tylenol PO Q4H PRN Pain MILD(1-3)/Fever >100.5/BRENNER Albuterol 2.5 mg 05/21/19 01:16 05/21/19 08:03 Proventil IH 2.5 mg Q4HRT PRN Administration Shortness Of Breath Dextrose 0 ml 05/19/19 04:31 05/21/19 06:43 D50w (25gm) Syringe IV 15 ml Q30MIN PRN Administration Hypoglycemia Protocol Hydrocortisone Acetate 1 applic 05/20/19 12:00 05/21/19 04:33 Proctosol-Hc [place] 1 applic Q8H MAYLIN Administration Levofloxacin/Dextrose 250 mg in 50 mls @ 50 mls/hr 05/20/19 10:00 05/21/19 11:02 Levaquin 250mg/50ml IV 50 mls/hr Q24HR MAYLIN Administration Ondansetron HCl 4 mg 05/19/19 04:12 Zofran IV Q8H PRN Nausea And Vomiting Polyethylene Glycol 17 gm 05/20/19 12:00 05/21/19 11:04 Miralax 3350 PO 17 gm QDAY MAYLIN Administration Sodium Chloride 10 ml 05/19/19 10:00 05/21/19 11:04 Sodium Chloride Flush Syringe 10 Ml IV 10 ml BID MAYLIN Administration Sodium Chloride 10 ml 05/19/19 04:12 Sodium Chloride Flush Syringe 10 Ml IV PRN PRN LINE FLUSH Nutrition/Malnutrition Assess - Dietary Evaluation Nutrition/Malnutrition Findings: Nutrition Notes Start: 05/19/19 11:24 Freq: Status: Active Protocol: Document 05/20/19 10:54 CC (Rec: 05/20/19 10:57 CC [email or web address]) Co-Sign 05/20/19 10:54 LP Nutrition Notes Initial or Follow up Brief Note Current Diagnosis Acute Kidney Injury,CKD(stage I-IV),COPD,Coronary Artery Disease,Diabetes,Sepsis, Hypertension,Heart Failure, Respiratory Failure, Hyperlipidemia Other Pertinent Diagnosis LGI bleed, rectal pain, gout, PAD, GERD, Lung CA, anemia, AMS, Current Diet NPO Labs/Tests Na 132 K 5.1 BUN 103 Creat 2.6 Pertinent Medications D5NS at 75ml/hr Height 5 ft 3 in Weight 55.7 kg [place] Body Weight (kg) 52.27 BMI 21.7 Intake Prior to Admission Poor Weight change and time frame 23% weight loss in 1 month Weight Status Underweight Subjective/Other Information F/U for diet advancement, TF consult. Pt still NPO d/t GI bleed. No diet advancment or TF consult at this time. Burn Absent Trauma Absent Nutrition Intervention Anticipated Discharge Needs: Unknown at this time Follow-Up By: 05/24/19 Additional Comments F/U Diet advancement/ TF consult
[2019-05-21] MEDS: AMIODARONE 900 MG in DEXTROSE 5% IN WATER 482 ML IV SCH ×2 (15:25→23:10)
[2019-05-21] MEDS ORDERED: AMIODARONE 150 MG in DEXTROSE 5% IN WATER 100 ML IV ONE (15:30)
--- NOTE | 2019-05-21 15:46 | Consultation ---
History of Present Illness Consult date: 05/21/19 Requesting physician: MARGARET PARISI Consult reason: atrial fibrillation History of present illness: The pt is a 73 YO female with a past medical history of stage 4 lung CA, recurrent pleural effusion with pleural catheter in place, CAD s/p ? AMI with PCI in 2008 and 2012 in [place] (per pt report), paroxysmal atrial fibrillation, anticoagulated with Eliquis, HFrEF, CMP, HTN, DM, tobacco use (recently quit smoking). She has been seen by our practice on multiple prior hospitalizations. Pt is lethargic and unable to provide much history. Per the chart, pt presented with rectal bleeding, per GI team - etiology ? ano-rectal source (fissure vs hemorrhoids). She was noted to develop AFib with RVR today and thus cardiology has been consulted. Of note, pt's home medication regimen, which includes amiodarone, has not yet been resumed. Echo done 02/19/2019 showed EF 30-35%, impaired relaxation, mild MR and TR, RVSP 46mmHg, basal anterior, mid anterior and apical anterior wall segments hypokinetic, mid inferoseptal and apical septal wall segments akinetic. Lexiscan MPI stress test done 02/23/2018 showed moderate ischemia, EF 35%. However, it was decided to proceed with conservative cardiac management in s etting of significant anemia, renal insufficiency and overall clinical status. Past History Past Medical History: atrial fib, CAD, cancer (stage IV lung), COPD, diabetes, heart failure, other (ckd) Past Surgical History: Other (port placement) Social history: no significant social history Family history: no significant family history Medications and Allergies Allergies Allergy/AdvReac Type Severity Reaction Status Date / Time ibuprofen Allergy Unknown Verified 02/18/19 23:29 Penicillins Allergy Unknown Verified 02/18/19 23:29 Home Medications Medication Instructions Recorded Confirmed Last Taken Type ALBUTEROL NEB's [Proventil 0.083% 2.5 mg IH Q3HRT PRN #100 nebu 03/16/19 05/19/19 Unknown Rx NEBS] Aspirin EC [Ecotrin] 325 mg PO QDAY #30 tablet 03/16/19 05/19/19 03/17/19 10:00 Rx 325 mg Ferrous Sulfate [Feosol 325 MG tab] 325 mg PO DAILY #30 tablet 03/16/19 05/19/19 03/17/19 10:00 Rx 325 mg Folic Acid [Folvite] 1 mg PO QDAY #30 tablet 03/16/19 05/19/19 03/17/19 10:00 Rx 1 mg ISOSORBIDE MONOnitrate [Imdur ER] 120 mg PO QDAY #1 tablet 03/16/19 05/19/19 03/17/19 10:00 Rx 120 mg Insulin NPH/Regular [NovoLIN 70/30] 10 unit SUB-Q BIDDIAB units 03/16/19 05/19/19 Unknown Rx Ipratropium (Nf) [Atrovent HFA 2 puff IH Q6HR PRN #1 inha 03/16/19 05/19/19 Unknown Rx 17MCG/PUFF] Pantoprazole [Protonix TAB] 40 mg PO QDAY #30 tablet 03/16/19 05/19/19 03/17/19 10:00 Rx 40 mg allopurinoL [Zyloprim] 100 mg PO DAILY #30 tablet 03/16/19 05/19/19 03/17/19 10:00 Rx 100 mg cilostazoL [Pletal] 50 mg PO BID #60 tablet 03/16/19 05/19/19 03/17/19 10:00 Rx 50 mg hydrALAZINE [Apresoline TAB] 25 mg PO Q8HR #90 tablet 03/16/19 05/19/19 03/17/19 10:00 Rx 25 mg hydrOXYzine HCL [Atarax] 10 mg PO Q6H PRN #30 tablet 03/16/19 05/19/19 Unknown Rx oxyCODONE /ACETAMINOPHEN [Percocet 1 tab PO Q6H PRN #8 tablet 03/16/19 05/19/19 Unknown Rx 5/325 mg] Apixaban [Eliquis] 5 mg PO BID #30 tablet 03/19/19 05/19/19 Unknown Rx Insulin NPH/Regular [NovoLIN 70/30] See Protocol SUB-Q ACHS #300 units 04/05/19 05/19/19 Unknown Rx Metoprolol [Lopressor TAB] 50 mg PO BIDDIAB tablet 04/05/19 05/19/19 Unknown Rx Apixaban [Eliquis] 5 mg PO BID 05/20/19 05/20/19 Unknown History Atorvastatin [Lipitor Tab] 40 mg PO QHS 05/20/19 05/20/19 Unknown History Furosemide [Lasix] 20 mg PO QDAY 05/20/19 05/20/19 Unknown History Prochlorperazine [Compazine] 10 tab PO Q4HR PRN 05/20/19 05/20/19 Unknown History cefUROXime [Ceftin] 250 mg PO Q12H 05/20/19 05/20/19 Unknown History glipiZIDE [Glucotrol] 5 mg PO BID 05/20/19 05/20/19 Unknown History Active Meds: Active Medications Acetaminophen (Tylenol) 650 mg PO Q4H PRN PRN Reason: Pain MILD(1-3)/Fever >100.5/BRENNER Albuterol (Proventil) 2.5 mg IH Q4HRT PRN PRN Reason: Shortness Of Breath Last Admin: 05/21/19 08:03 Dose: 2.5 mg Documented by: Dextrose (D50w (25gm) Syringe) 0 ml IV Q30MIN PRN; Protocol PRN Reason: Hypoglycemia Last Admin: 05/21/19 06:43 Dose: 15 ml Documented by: Hydrocortisone Acetate (Proctosol-Hc) 1 applic ME Q8H MAYLIN Last Admin: 05/21/19 04:33 Dose: 1 applic Documented by: Levofloxacin/Dextrose (Levaquin 250mg/50ml) 250 mg in 50 mls @ 50 mls/hr IV Q24HR MAYLIN Last Infusion: 05/21/19 15:00 Dose: Infused Documented by: Amiodarone HCl 900 mg/ (Dextrose) 500 mls @ 33.333 mls/hr IV DIRECT MAYLIN; Protocol Last Admin: 05/21/19 15:25 Dose: 1 mg/min, 33.333 mls/hr Documented by: Ondansetron HCl (Zofran) 4 mg IV Q8H PRN PRN Reason: Nausea And Vomiting Polyethylene Glycol (Miralax 3350) 17 gm PO QDAY MAYLIN Last Admin: 05/21/19 11:04 Dose: 17 gm Documented by: Sodium Chloride (Sodium Chloride Flush Syringe 10 Ml) 10 ml IV BID MAYLIN Last Admin: 05/21/19 11:04 Dose: 10 ml Documented by: Sodium Chloride (Sodium Chloride Flush Syringe 10 Ml) 10 ml IV PRN PRN PRN Reason: LINE FLUSH Review of Systems ROS unobtainable: due to mental status Physical Examination Vital Signs Temp Pulse Resp BP Pulse Ox 97.5 F L 92 H 18 109/55 71 L 05/18/19 20:14 05/18/19 20:14 05/18/19 20:14 05/18/19 20:14 05/18/19 20:14 General appearance: other (lethargic, withdrawn) HEENT: Positive: PERRL Neck: Positive: neck supple, trachea midline Cardiac: Positive: irregularly irregular, S1/S2, Tachycardia Lungs: Positive: Decreased Breath Sounds Neuro: Positive: Other (lethargic, withdrawn) Skin: Negative: Rash Musculoskeletal: No Pain Extremities: Absent: edema Results 05/21/19 05:11 05/21/19 05:11 CBC 05/21/19 Range/Units 05:11 WBC 22.0 H (4.5-11.0) K/mm3 RBC 3.47 L (3.65-5.03) M/mm3 Hgb 9.1 L (10.1-14.3) gm/dl Hct 29.1 L (30.3-42.9) % Plt Count 364 (140-440) K/mm3 Comprehensive Metabolic Panel 05/20/19 05/21/19 Range/Units 17:07 05:11 Sodium 134 L 136 L (137-145) mmol/L Potassium 4.8 4.5 (3.6-5.0) mmol/L Chloride 102.3 104.8 (98-107) mmol/L Carbon Dioxide 20 L 19 L (22-30) mmol/L BUN 101 H 91 H (7-17) mg/dL Creatinine 2.4 H 1.9 H (0.7-1.2) mg/dL Glucose 148 H 146 H (65-100) mg/dL Calcium 10.7 H 10.6 H (8.4-10.2) mg/dL - Imaging and Cardiology Echo: report reviewed (02/19/2019 showed EF 30-35%, impaired relaxation, mild MR and TR, RVSP 46mmHg, basal anterior, mid anterior and apical anterior wall segments hypokinetic, mid inferoseptal and apical septal wall segments akinetic. ) EKG: report reviewed, image reviewed EKG interpretations - Telemetry EKG Rhythm: Sinus Rhythm - EKG Sinus rhythms and dysrhythmias: sinus rhythm Assessment and Plan Optimize HR - agree with IV amio and resume home PO amio and PO lopressor. Pt's PO intake has been inconsistent in setting of her AMS. Will plan to wean off amio gtt once PO intake is consistent. Recommend resumption of home Eliquis if/when okay per GI team. Will follow. The patient has been seen in conjunction with Dr. Beck who agrees with the assessment and plan of care. - Patient Problems (1) Altered mental status Current Visit: Yes Status: Acute (2) GI bleed Current Visit: Yes Status: Acute (3) Paroxysmal atrial fibrillation with RVR Current Visit: Yes Status: Acute (4) Lung cancer Current Visit: Yes Status: Chronic (5) Pleural effusion Current Visit: Yes Status: Acute (6) CAD (coronary artery disease) Current Visit: Yes Status: Chronic Qualifiers: Coronary Disease-Associated Artery/Lesion type: [place] artery (7) Stented coronary artery Current Visit: Yes Status: Chronic (8) Cardiomyopathy Current Visit: Yes Status: Chronic (9) Abnormal stress test Current Visit: Yes Status: Chronic (10) PAD (peripheral artery disease) Current Visit: Yes Status: Chronic (11) Diabetes Current Visit: Yes Status: Chronic (12) Former tobacco use Current Visit: Yes Status: Chronic (13) Anemia Current Visit: Yes Status: Chronic
[2019-05-21] MEDS: METOPROLOL TARTRATE 50 MG TAB PO SCH (18:15)
[2019-05-22] MEDS: HYDROCORTISONE 2.5% RECT CREAM 28.35 GM PR SCH ×3 (07:10→22:36)
[2019-05-22 08:17] LABS: Calcium 11.6 mg/dL (8.4-10.2)
--- NOTE | 2019-05-22 09:01 | Progress Note ---
Assessment and Plan 1. Acute kidney injury: Likely vasomotor NEELIMA superimposed on CKD stage 3. Renal US negative for hydro but shows bilateral cortical thinning as well as simple cyst in the upper pole of left kidney. Urine studies ordered. Will restart D5 1/2 NS at 75 cc/hr. Monitor renal function. Creatinine level is stable. Avoid nephrotoxic agents. Meds dosage based on GFR. 2. FEN: Mild Hyponatremia, improving, serum sodium now 139, monitor. Hyperkalemia, 5.2 today, restart IV fluids, monitor. Metabolic acidosis, restart IV fluids, monitor. Monitor lytes. 3. GI bleed: Hgb stable. GI following. 4. SIRS: 5. Recurrent pleural effusions in setting of stage IV lung cancer (squamous cell): Pleurx catheter present. 6. Chronic systolic CHF: EF 30-35% Diuretics held. 7. A fib: On Eliquis. 8. Diabetes Mellitus: 9. Hypertension: 10. Anemia: Subjective Date of service: 05/22/19 Principal diagnosis: GIB Interval history: Patient was seen and examined at the bedside. Daughter is not present at the bedside. Patient sleeping but easily aroused. Objective - Exam Narrative Exam: General appearance: well-developed, appears stated age, frail EENT: ATNC, PERRL, mucus membranes dry Neck: Present: neck supple, trachea midline Respiratory: Expiratory wheeze bilateral upper lobes, Decreased Breath Sounds (bibasilar) Heart: regular, normal heart rate, S1S2, no murmurs Gastrointestinal: Present: normal, normoactive bowel sounds. Absent: tenderness, distended, masses, organomegaly Integumentary: no rash, warm and dry, Pleurx catheter present Neurologic: no focal deficit, other (alert, awake) Musculoskeletal: Present: other (able to move all extremities) Psychiatric: mood/affect appropriate, cooperative - Vital Signs Vital signs: Vital Signs - 12hr 05/21/19 05/21/19 05/22/19 22:00 22:03 00:26 Temperature 97.4 F L Pulse Rate 108 H 108 H Pulse Rate [ 76 Apical] Respiratory 20 22 Rate Blood Pressure 170/87 O2 Sat by Pulse 97 99 96 Oximetry 05/22/19 05/22/19 05/22/19 03:23 04:51 08:41 Temperature 97.5 F L Pulse Rate 108 H 110 H Pulse Rate [ 74 Apical] Respiratory 18 18 Rate Blood Pressure 184/85 O2 Sat by Pulse 96 96 96 Oximetry - Lab 05/21/19 05:11 05/22/19 06:55 Most recent lab results Calcium 11.6 mg/dL (8.4-10.2) H 05/22/19 06:55 Phosphorus 3.80 mg/dL (2.5-4.5) 05/20/19 06:06 Magnesium 2.30 mg/dL (1.7-2.3) 05/19/19 00:25 Urine Creatinine 114.6 mg/dL (0.1-20.0) H 05/20/19 Unknown Urine Sodium 10 mmol/L 05/20/19 Unknown Medications & Allergies - Medications Allergies/Adverse Reactions: Allergies ibuprofen Allergy (Verified 02/18/19 23:29) Unknown Penicillins Allergy (Verified 02/18/19 23:29) Unknown Home Medications: Home Medications Medication Instructions Recorded Confirmed Last Taken Type ALBUTEROL NEB's [Proventil 0.083% 2.5 mg IH Q3HRT PRN #100 nebu 03/16/19 05/19/19 Unknown Rx NEBS] Aspirin EC [Ecotrin] 325 mg PO QDAY #30 tablet 03/16/19 05/19/19 03/17/19 10:00 Rx 325 mg Ferrous Sulfate [Feosol 325 MG tab] 325 mg PO DAILY #30 tablet 03/16/19 05/19/19 03/17/19 10:00 Rx 325 mg Folic Acid [Folvite] 1 mg PO QDAY #30 tablet 03/16/19 05/19/19 03/17/19 10:00 Rx 1 mg ISOSORBIDE MONOnitrate [Imdur ER] 120 mg PO QDAY #1 tablet 03/16/19 05/19/19 03/17/19 10:00 Rx 120 mg Insulin NPH/Regular [NovoLIN 70/30] 10 unit SUB-Q BIDDIAB units 03/16/19 05/19/19 Unknown Rx Ipratropium (Nf) [Atrovent HFA 2 puff IH Q6HR PRN #1 inha 03/16/19 05/19/19 Unknown Rx 17MCG/PUFF] Pantoprazole [Protonix TAB] 40 mg PO QDAY #30 tablet 03/16/19 05/19/19 03/17/19 10:00 Rx 40 mg allopurinoL [Zyloprim] 100 mg PO DAILY #30 tablet 03/16/19 05/19/19 03/17/19 10:00 Rx 100 mg cilostazoL [Pletal] 50 mg PO BID #60 tablet 03/16/19 05/19/19 03/17/19 10:00 Rx 50 mg hydrALAZINE [Apresoline TAB] 25 mg PO Q8HR #90 tablet 03/16/19 05/19/19 03/17/19 10:00 Rx 25 mg hydrOXYzine HCL [Atarax] 10 mg PO Q6H PRN #30 tablet 03/16/19 05/19/19 Unknown Rx oxyCODONE /ACETAMINOPHEN [Percocet 1 tab PO Q6H PRN #8 tablet 03/16/19 05/19/19 Unknown Rx 5/325 mg] Apixaban [Eliquis] 5 mg PO BID #30 tablet 03/19/19 05/19/19 Unknown Rx Insulin NPH/Regular [NovoLIN 70/30] See Protocol SUB-Q ACHS #300 units 04/05/19 05/19/19 Unknown Rx Metoprolol [Lopressor TAB] 50 mg PO BIDDIAB tablet 04/05/19 05/19/19 Unknown Rx Apixaban [Eliquis] 5 mg PO BID 05/20/19 05/20/19 Unknown History Atorvastatin [Lipitor Tab] 40 mg PO QHS 05/20/19 05/20/19 Unknown History Furosemide [Lasix] 20 mg PO QDAY 05/20/19 05/20/19 Unknown History Prochlorperazine [Compazine] 10 tab PO Q4HR PRN 05/20/19 05/20/19 Unknown History cefUROXime [Ceftin] 250 mg PO Q12H 05/20/19 05/20/19 Unknown History glipiZIDE [Glucotrol] 5 mg PO BID 05/20/19 05/20/19 Unknown History Active Medications: Generic Name Dose Route Start Last Admin Trade Name Freq PRN Reason Stop Dose Admin Acetaminophen 650 mg 05/19/19 04:12 Tylenol PO Q4H PRN Pain MILD(1-3)/Fever >100.5/BRENNER Albuterol 2.5 mg 05/21/19 01:16 05/21/19 08:03 Proventil IH 2.5 mg Q4HRT PRN Administration Shortness Of Breath Dextrose 0 ml 05/19/19 04:31 05/21/19 06:43 D50w (25gm) Syringe IV 15 ml Q30MIN PRN Administration Hypoglycemia Protocol Hydrocortisone Acetate 1 applic 05/20/19 12:00 05/22/19 07:10 Proctosol-Hc PA Not Given Q8H MAYLIN Levofloxacin/Dextrose 250 mg in 50 mls @ 50 mls/hr 05/20/19 10:00 05/21/19 15:00 Levaquin 250mg/50ml IV Infused Q24HR MAYLIN Infusion Amiodarone HCl 900 mg/ 500 mls @ 33.333 mls/hr 05/21/19 16:00 05/21/19 23:10 Dextrose IV 1 mg/min DIRECT MAYLIN 33.333 mls/hr Administration Protocol 1 MG/MIN Metoprolol Tartrate 25 mg 05/21/19 17:00 05/21/19 18:15 Metoprolol PO Not Given BIDDIAB MAYLIN Ondansetron HCl 4 mg 05/19/19 04:12 Zofran IV Q8H PRN Nausea And Vomiting Polyethylene Glycol 17 gm 05/20/19 12:00 05/21/19 11:04 Miralax 3350 PO 17 gm QDAY MAYLIN Administration Sodium Chloride 10 ml 05/19/19 10:00 05/21/19 23:11 Sodium Chloride Flush Syringe 10 Ml IV 10 ml BID MAYLIN Administration Sodium Chloride 10 ml 05/19/19 04:12 Sodium Chloride Flush Syringe 10 Ml IV PRN PRN LINE FLUSH
[2019-05-22] MEDS: METOPROLOL TARTRATE 50 MG TAB PO SCH ×2 (10:33→17:35)
[2019-05-22] MEDS: POLYETHYLENE GLYCOL 3350 17 GM POWDER PO SCH (10:34)
--- NOTE | 2019-05-22 10:43 | Progress Note ---
Assessment and Plan This is a 73-year-old female with history of advanced lung cancer, coronary artery disease, status post bypass surgery as well as PCI in 2008 and 2012. Patient is also known to have atrial fibrillation. Patient is also known to have congestive heart failure with reduced ejection fraction and last EF was 30 to 35% on the echo done on 02/19/2019. Patient is currently admitted with GI bleeding etiology of this is uncertain. Cardiac status appears to be satisfactory. Rhythm is noted to sinus at this time. Subjective Date of service: 05/22/19 Principal diagnosis: GIB Interval history: Patient is somewhat lethargic and cannot get any historic details at this time. Appears to be comfortable. Objective Vital Signs Temp Pulse Pulse Resp BP Pulse Ox 05/22/19 10:33 74 154/79 05/22/19 08:41 96 05/22/19 08:06 98.3 F 18 154/79 05/22/19 04:51 97.5 F L 110 H 18 184/85 96 05/22/19 03:23 108 H 74 18 96 05/22/19 00:26 97.4 F L 108 H 22 170/87 96 05/21/19 22:03 99 05/21/19 22:00 108 H 76 20 97 05/21/19 20:11 98.2 F 98 H 20 113/65 99 05/21/19 18:15 105 H 145/71 05/21/19 17:40 61 145/73 91 05/21/19 11:39 97.7 F 18 145/71 93 - Physical Examination HEENT: Positive: PERRL Neck: Positive: neck supple, trachea midline Cardiac: Positive: Regular Rhythm Lungs: Positive: clear to auscultation Neuro: Positive: Other (lethargic, withdrawn) Abdomen: Positive: Soft Skin: Negative: Rash Musculoskeletal: No Pain Extremities: Absent: edema - Labs and Meds Comprehensive Metabolic Panel 05/22/19 Range/Units 06:55 Sodium 139 (137-145) mmol/L Potassium 5.2 H (3.6-5.0) mmol/L Chloride 107.4 H (98-107) mmol/L Carbon Dioxide 17 L (22-30) mmol/L BUN 89 H (7-17) mg/dL Creatinine 1.8 H (0.7-1.2) mg/dL Glucose 120 H (65-100) mg/dL Calcium 11.6 H (8.4-10.2) mg/dL - Imaging and Cardiology EKG: report reviewed, image reviewed Echo: report reviewed (02/19/2019 showed EF 30-35%, impaired relaxation, mild MR and TR, RVSP 46mmHg, basal anterior, mid anterior and apical anterior wall segments hypokinetic, mid inferoseptal and apical septal wall segments akinetic. ) - EKG Sinus rhythms and dysrhythmias: sinus rhythm
[2019-05-22] MEDS ORDERED: D5W/0.45% NACL 1,000 ML IV SCH (11:00)
--- NOTE | 2019-05-22 17:05 | Progress Note ---
Assessment and Plan Assessment and plan: Patient is a 73-year-old woman with a history of coronary artery disease, CHF, COPD, DM type 2, chronic kidney disease, A. fib on anticoagulation, lung cancer with recurrent malignant pleural effusion with a Pleurx catheter drain in place who presented with hematochezia and rectal pains. GI evaluated and determined this to be lower GI source which spontaneous resolved. However, patient continue to be confused and not eating. So she is not taking oral metoprolol or Amiodarone; therefore, she is Afib with RVR. She recently started on immunotherapy for lung cancer Dr. Franco. Acute GI blood loss anemia, hemorrhoid/fissure related per GI, resolved: monitor cbc almost daily Acute on chronic renal failure stage 3, vasomotor nephropathy, poa: treat with IVFs but complex medical decision in the fact this will worsen chronic bilateral pleural effusion, follow bmp closely SIRS, non-infectious with organ dysfunction, poa: Patient looks nontoxic, start empiric antibiotic iv renal dose levequin (pcn allergy), routine cultures Chronic systolic CHF, EF of 30-35%: needing IVF for ARF Acute metabolic encephalopathy, poa, FTT with Odynophagia: consult speech therapy Odynophagia: PEG evalution Paroxysmal Atrial fibrillation, now with RVR, stable: discontinued Eliquis secondary to bleeding, given iv bolus Amiodarone x 1 and on iv Amiodarone drip, now in sinus, Cardiology is following Malignant recurrent pleural effusion: Patient has a Pleurx drain in place which instructed to drain daily. CAD, Stable Type 2 Diabetes Mellitus DVT prophylaxis: scd only full code Hospice appropriate, d/w daughter Lakshmi==>no hospice and rudely stated, "I know all about hospice!" History Interval history: Patient was seen and examined. Follow-up on current diagnosis of GIB. Overnight uneventful as no events directly reported to me. Patient is not talking or eating. Imaging, nursing note, chart, labs and old chart reviewed. Hospitalist Physical - Physical exam Narrative exam: Gen: thin frial, chronically diasable, nonverbal today HEENT: NCAT, EOMI, PERRL, OP Clear Neck: supple, no adenopathy, no thyromegaly, no JVD CVS/Heart: irregular irregular normal S1S2, pulses present bilaterally Chest/Lungs: diminished with bibasilar crackles, Symmetrical chest expansion, good air entry bilaterally, pleurx catheter cw/upper abd area GI/Abdomen: soft, NTND, good bowel sounds, no guarding or rebound /Bladder: no suprapubic tenderness, no CVA or paraspinal tenderness Extermity/Skin: no c/c/e, no obvious rash MSK: sROM x 4 Neuro: CN 2-12 grossly intact, doesn't follow commands Psych: calm but confused - Constitutional Vitals: Temp Pulse Resp BP Pulse Ox 98.3 F 74 18 154/79 96 05/22/19 08:06 05/22/19 10:33 05/22/19 08:06 05/22/19 10:33 05/22/19 08:41 General appearance: Present: other (lethargic, withdrawn) Results - Labs CBC & Chem 7: 05/21/19 05:11 05/22/19 06:55 Labs: Laboratory Last Values WBC 22.0 K/mm3 (4.5-11.0) H 05/21/19 05:11 RBC 3.47 M/mm3 (3.65-5.03) L 05/21/19 05:11 Hgb 9.1 gm/dl (10.1-14.3) L 05/21/19 05:11 Hct 29.1 % (30.3-42.9) L 05/21/19 05:11 MCV 84 fl (79-97) 05/21/19 05:11 MCH 26 pg (28-32) L 05/21/19 05:11 MCHC 31 % (30-34) 05/21/19 05:11 RDW 20.3 % (13.2-15.2) H 05/21/19 05:11 Plt Count 364 K/mm3 (140-440) 05/21/19 05:11 Add Manual Diff Complete 05/21/19 05:11 Total Counted 100 05/21/19 05:11 Seg Neutrophils % Travel Consultant 05/19/19 04:23 Seg Neuts % (Manual) 94.0 % (40.0-70.0) H 05/21/19 05:11 Band Neutrophils % 0 % 05/21/19 05:11 Lymphocytes % (Manual) 2.0 % (13.4-35.0) L 05/21/19 05:11 Reactive Lymphs % (Man) 0 % 05/21/19 05:11 Monocytes % (Manual) 3.0 % (0.0-7.3) 05/21/19 05:11 Eosinophils % (Manual) 1.0 % (0.0-4.3) 05/21/19 05:11 Basophils % (Manual) 0 % (0.0-1.8) 05/21/19 05:11 Metamyelocytes % 0 % 05/21/19 05:11 Myelocytes % 0 % 05/21/19 05:11 Promyelocytes % 0 % 05/21/19 05:11 Blast Cells % 0 % 05/21/19 05:11 Nucleated RBC % Not Reportable 05/21/19 05:11 Seg Neutrophils # Man 20.7 K/mm3 (1.8-7.7) H 05/21/19 05:11 Band Neutrophils # 0.0 K/mm3 05/21/19 05:11 Lymphocytes # (Manual) 0.4 K/mm3 (1.2-5.4) L 05/21/19 05:11 Abs React Lymphs (Man) 0.0 K/mm3 05/21/19 05:11 Monocytes # (Manual) 0.7 K/mm3 (0.0-0.8) 05/21/19 05:11 Eosinophils # (Manual) 0.2 K/mm3 (0.0-0.4) 05/21/19 05:11 Basophils # (Manual) 0.0 K/mm3 (0.0-0.1) 05/21/19 05:11 Metamyelocytes # 0.0 K/mm3 05/21/19 05:11 Myelocytes # 0.0 K/mm3 05/21/19 05:11 Promyelocytes # 0.0 K/mm3 05/21/19 05:11 Blast Cells # 0.0 K/mm3 05/21/19 05:11 WBC Morphology Not Reportable 05/21/19 05:11 Hypersegmented Neuts Not Reportable 05/21/19 05:11 Hyposegmented Neuts Not Reportable 05/21/19 05:11 Hypogranular Neuts Not Reportable 05/21/19 05:11 Smudge Cells Not Reportable 05/21/19 05:11 Toxic Granulation Not Reportable 05/21/19 05:11 Toxic Vacuolation Not Reportable 05/21/19 05:11 Dohle Bodies Not Reportable 05/21/19 05:11 Pelger-Huet Anomaly Not Reportable 05/21/19 05:11 Jessica Rods Not Reportable 05/21/19 05:11 Platelet Estimate Consistent w auto 05/21/19 05:11 Clumped Platelets Not Reportable 05/21/19 05:11 Plt Clumps, EDTA Not Reportable 05/21/19 05:11 Large Platelets Not Reportable 05/21/19 05:11 Giant Platelets Not Reportable 05/21/19 05:11 Platelet Satelliting Not Reportable 05/21/19 05:11 Plt Morphology Comment Not Reportable 05/21/19 05:11 RBC Morphology Not Reportable 05/21/19 05:11 Dimorphic RBCs Not Reportable 05/21/19 05:11 Polychromasia Not Reportable 05/21/19 05:11 Hypochromasia Not Reportable 05/21/19 05:11 Poikilocytosis Not Reportable 05/21/19 05:11 Anisocytosis Not Reportable 05/21/19 05:11 Microcytosis Not Reportable 05/21/19 05:11 Macrocytosis Not Reportable 05/21/19 05:11 Spherocytes Not Reportable 05/21/19 05:11 Pappenheimer Bodies Not Reportable 05/21/19 05:11 Sickle Cells Not Reportable 05/21/19 05:11 Target Cells Rare 05/21/19 05:11 Tear Drop Cells Not Reportable 05/21/19 05:11 Ovalocytes Not Reportable 05/21/19 05:11 Helmet Cells Not Reportable 05/21/19 05:[address] [place] Bodies Not Reportable 05/21/19 05:11 [place] Rings Not Reportable 05/21/19 05:11 Lora Cells Rare 05/21/19 05:11 Bite Cells Not Reportable 05/21/19 05:11 Crenated Cell Not Reportable 05/21/19 05:11 Elliptocytes Not Reportable 05/21/19 05:11 Acanthocytes (Spur) Not Reportable 05/21/19 05:11 Rouleaux Not Reportable 05/21/19 05:11 Hemoglobin C Crystals Not Reportable 05/21/19 05:11 Schistocytes Rare 05/21/19 05:11 Malaria parasites Not Reportable 05/21/19 05:11 Galen Bodies Not Reportable 05/21/19 05:11 Hem Pathologist Commnt No 05/21/19 05:11 PT 26.0 Sec. (12.2-14.9) H 05/19/19 00:25 INR 2.33 (0.87-1.13) H 05/19/19 00:25 APTT 47.3 Sec. (24.2-36.6) H 05/19/19 00:25 Sodium 139 mmol/L (137-145) 05/22/19 06:55 Potassium 5.2 mmol/L (3.6-5.0) H 05/22/19 06:55 Chloride 107.4 mmol/L (98-107) H 05/22/19 06:55 Carbon Dioxide 17 mmol/L (22-30) L 05/22/19 06:55 Anion Gap 20 mmol/L 05/22/19 06:55 BUN 89 mg/dL (7-17) H 05/22/19 06:55 Creatinine 1.8 mg/dL (0.7-1.2) H 05/22/19 06:55 Estimated GFR 33 ml/min 05/22/19 06:55 BUN/Creatinine Ratio 49 % 05/22/19 06:55 Glucose 120 mg/dL (65-100) H 05/22/19 06:55 POC Glucose 188 (70-105) H 05/22/19 17:10 Calcium 11.6 mg/dL (8.4-10.2) H 05/22/19 06:55 Phosphorus 3.80 mg/dL (2.5-4.5) 05/20/19 06:06 Magnesium 2.30 mg/dL (1.7-2.3) 05/19/19 00:25 Total Creatine Kinase 20 units/L (30-135) L 05/19/19 00:25 Urine Color Yellow (Yellow) 05/20/19 Unknown Urine Turbidity Slightly-cloudy (Clear) 05/20/19 Unknown Urine pH 5.0 (5.0-7.0) 05/20/19 Unknown Ur Specific [place] 1.015 (1.003-1.030) 05/20/19 Unknown Urine Protein <15 mg/dl mg/dL (Negative) 05/20/19 Unknown Urine Glucose (UA) Neg mg/dL (Negative) 05/20/19 Unknown Urine Ketones Neg mg/dL (Negative) 05/20/19 Unknown Urine Blood Neg (Negative) 05/20/19 Unknown Urine Nitrite Neg (Negative) 05/20/19 Unknown Urine Bilirubin Neg (Negative) 05/20/19 Unknown Urine Urobilinogen < 2.0 mg/dL (<2.0) 05/20/19 Unknown Ur Leukocyte Esterase Neg (Negative) 05/20/19 Unknown Urine WBC (Auto) 2.0 /HPF (0.0-6.0) 05/20/19 Unknown Urine RBC (Auto) 3.0 /HPF (0.0-6.0) 05/20/19 Unknown U Epithel Cells (Auto) 4.0 /HPF (0-13.0) 05/20/19 Unknown Urine Mucus Few /HPF 05/20/19 Unknown Urine Yeast (Budding) 1+ /HPF 05/20/19 Unknown Urine Creatinine 114.6 mg/dL (0.1-20.0) H 05/20/19 Unknown Urine Sodium 10 mmol/L 05/20/19 Unknown Blood Type O POSITIVE 05/19/19 01:37 Antibody Screen Negative 05/19/19 01:37 Active Medications - Current Medications Current Medications: Generic Name Dose Route Start Last Admin Trade Name Freq PRN Reason Stop Dose Admin Acetaminophen 650 mg 05/19/19 04:12 Tylenol PO Q4H PRN Pain MILD(1-3)/Fever >100.5/BRENNER Albuterol 2.5 mg 05/21/19 01:16 05/21/19 08:03 Proventil IH 2.5 mg Q4HRT PRN Administration Shortness Of Breath Dextrose 0 ml 05/19/19 04:31 05/21/19 06:43 D50w (25gm) Syringe IV 15 ml Q30MIN PRN Administration Hypoglycemia Protocol Hydrocortisone Acetate 1 applic 05/20/19 12:00 05/22/19 07:10 Proctosol-Hc MO Not Given Q8H MAYLIN Levofloxacin/Dextrose 250 mg in 50 mls @ 50 mls/hr 05/20/19 10:00 05/22/19 10:33 Levaquin 250mg/50ml IV 50 mls/hr Q24HR MAYLIN Administration Amiodarone HCl 900 mg/ 500 mls @ 33.333 mls/hr 05/21/19 16:00 05/21/19 23:10 Dextrose IV 1 mg/min DIRECT MAYLIN 33.333 mls/hr Administration Protocol 1 MG/MIN Dextrose/Sodium Chloride 1,000 mls @ 75 mls/hr 05/22/19 11:00 05/22/19 12:17 D5/0.45ns IV 75 mls/hr DIRECT MAYLIN Administration Metoprolol Tartrate 25 mg 05/21/19 17:00 05/22/19 10:33 Metoprolol PO 25 mg BIDDIAB MAYLIN Administration Ondansetron HCl 4 mg 05/19/19 04:12 Zofran IV Q8H PRN Nausea And Vomiting Polyethylene Glycol 17 gm 05/20/19 12:00 05/22/19 10:34 Miralax 3350 PO 17 gm QDAY MAYLIN Administration Sodium Chloride 10 ml 05/19/19 10:00 05/22/19 10:34 Sodium Chloride Flush Syringe 10 Ml IV 10 ml BID MAYLIN Administration Sodium Chloride 10 ml 05/19/19 04:12 Sodium Chloride Flush Syringe 10 Ml IV PRN PRN LINE FLUSH Nutrition/Malnutrition Assess - Dietary Evaluation Nutrition/Malnutrition Findings: Nutrition Notes Start: 05/19/19 11:24 Freq: Status: Active Protocol: Document 05/20/19 10:54 CC (Rec: 05/20/19 10:57 CC [email or web address]) Co-Sign 05/20/19 10:54 LP Nutrition Notes Initial or Follow up Brief Note Current Diagnosis Acute Kidney Injury,CKD(stage I-IV),COPD,Coronary Artery Disease,Diabetes,Sepsis, Hypertension,Heart Failure, Respiratory Failure, Hyperlipidemia Other Pertinent Diagnosis LGI bleed, rectal pain, gout, PAD, GERD, Lung CA, anemia, AMS, Current Diet NPO Labs/Tests Na 132 K 5.1 BUN 103 Creat 2.6 Pertinent Medications D5NS at 75ml/hr Height 5 ft 3 in Weight 55.7 kg [place] Body Weight (kg) 52.27 BMI 21.7 Intake Prior to Admission Poor Weight change and time frame 23% weight loss in 1 month Weight Status Underweight Subjective/Other Information F/U for diet advancement, TF consult. Pt still NPO d/t GI bleed. No diet advancment or TF consult at this time. Burn Absent Trauma Absent Nutrition Intervention Anticipated Discharge Needs: Unknown at this time Follow-Up By: 05/24/19 Additional Comments F/U Diet advancement/ TF consult
[2019-05-22] MEDS: AMIODARONE 900 MG in DEXTROSE 5% IN WATER 482 ML IV SCH (19:28)
[2019-05-22 21:15] VITALS: BP 147/69
--- NOTE | 2019-05-23 00:05 | XRay Report ---
CHEST 1 VIEW INDICATION / CLINICAL INFORMATION: SOB. COMPARISON: 05/19/2019 FINDINGS: SUPPORT DEVICES: Unchanged HEART / MEDIASTINUM: Unchanged LUNGS / PLEURA: There is persistent opacification of left hemithorax with slight improvement in aerat ion in the left base. No pneumothorax. There is a small right pleural effusion ADDITIONAL FINDINGS: No significant additional findings. IMPRESSION: 1. There is slight improvement in aeration in the left lung base. There is no other significant nieto e. Signer Name: Darryn Rojas MD Signed: 05/23/2019 12:01 AM Workstation Name: [id number]
--- NOTE | 2019-05-23 08:44 | Discharge Summary ---
Providers - Providers Date of Admission: 05/19/19 03:45 Attending physician: MARGARET PARISI 05/19/19 01:16 Consult to Physician [CONS] Urgent Comment: Dr. Vu spoke with Dr. Anne @ 0121 Consulting Provider: PASCUAL GARCIA Physician Instructions: Reason For Exam: GIB 05/19/19 04:21 Consult to Physician [CONS] Routine Comment: Consulting Provider: DUANE MIGUEL Physician Instructions: Reason For Exam: arf 05/19/19 06:42 Consult to Dietitian/Nutrition [CONS] Routine Physician Instructions: Reason For Exam: Reason for Consult: Poor oral intake 05/20/19 07:49 Consult to Wound/ET Nurse [CONS] Routine Reason For Exam: wound eval - sacral area 05/21/19 14:43 Consult to Physician [CONS] Routine Comment: Consulting Provider: PATRICK JARVIS Physician Instructions: Reason For Exam: afib with RVR 05/21/19 15:32 Consult to Physician [CONS] Routine Comment: Consulting Provider: NEO ARIAS Physician Instructions: Reason For Exam: lung cancer, pt known to you 05/21/19 15:46 Speech Therapy Evaluation and Treat [CONS] Urgent Reason For Exam: odynophagia Primary care physician: TILER'S ASSISTANT Hospitalization Condition: Poor Hospital course: Daughter took patient AMA at 0015, explained importance of medical treatments in hospital to family member but insist on leaving, at 0015 transported by wheelchair off the floor. Disposition: DC-07 LEFT AGAINST MED ADVICE Core Measure Documentation - Palliative Care Palliative Care/ Comfort Measures: Not Applicable - Core Measures Any of the following diagnoses?: none - VTE Discharge Requirements Deep Vein Thrombosis/Pulmonary Embolism Present on Admission: No Has pt received <5 days of overlap therapy or INR<2.0: No Anticoagulant overlap therapy prescribed at discharge: No Contraindication No Overlap Therapy order at DC: Not Indicated Exam - Constitutional Vitals: Temp Pulse Resp BP Pulse Ox 97.3 F L 64 26 H 147/69 98 05/22/19 21:12 05/22/19 21:12 05/22/19 21:12 05/22/19 21:12 05/22/19 21:14 Plan Follow up with: PRIMARY CARE, [Primary Care Provider] - 3-5 Days Forms: AMA Form
== END 2019-05-23 01:00 | disposition left against medical advice (07) | DRG 377 ==
LOC: ED 19:20 → 4A 05-19 03:45
PROVIDERS: ADMIT Internal Medicine; ATTEND Internal Medicine
DX: K92.2 Gastrointestinal hemorrhage, unspecified (principal); N17.0 Acute kidney failure with tubular necrosis; R65.11 Systemic inflammatory response syndrome (SIRS) of non-infectious origin with acute organ dysfunction; G93.41 Metabolic encephalopathy; I50.22 Chronic systolic (congestive) heart failure; J91.0 Malignant pleural effusion; I13.0 Hypertensive heart and chronic kidney disease with heart failure and stage 1 through stage 4 chronic kidney disease, or unspecified chronic kidney disease; I42.9 Cardiomyopathy, unspecified; E87.1 Hypo-osmolality and hyponatremia; E87.2 Acidosis; D62 Acute posthemorrhagic anemia; K64.9 Unspecified hemorrhoids; I25.10 Atherosclerotic heart disease of native coronary artery without angina pectoris; E11.22 Type 2 diabetes mellitus with diabetic chronic kidney disease; F17.200 Nicotine dependence, unspecified, uncomplicated; J44.9 Chronic obstructive pulmonary disease, unspecified; I48.0 Paroxysmal atrial fibrillation; E11.51 Type 2 diabetes mellitus with diabetic peripheral angiopathy without gangrene; D64.9 Anemia, unspecified; E87.5 Hyperkalemia; N18.3 Chronic kidney disease, stage 3 (moderate); R13.10 Dysphagia, unspecified; I25.2 Old myocardial infarction; Z85.118 Personal history of other malignant neoplasm of bronchus and lung; Z88.0 Allergy status to penicillin; Z79.899 Other long term (current) drug therapy; Z95.5 Presence of coronary angioplasty implant and graft; Z79.01 Long term (current) use of anticoagulants; Z82.49 Family history of ischemic heart disease and other diseases of the circulatory system
CPT/HCPCS: 36415; 71045; 71250; 72192; 76770; 80048; 81001; 82550; 82570; 82962; 83735; 84100; 84300; 85007; 85014; 85018; 85025; 85027; 85610; 85730; 86850; 86900; 86901; 87040; 87116; 93005; 93010; 94640; 94760; 96365; G0378; J0282; J1956; J2597; J3370; J7030; J7042; J7050; J7060